=== PATIENT | female | born 1960 | race American Indian/Alaskan Native ===

== ENCOUNTER 2017-01-25 12:56 | Emergency (ER) | payer MEDICAID ==
--- NOTE | 2017-01-25 14:33 | Emergency Department Report ---
ED Extremity Problem HPI - General Chief complaint: Extremity Injury, Lower Stated complaint: BONE STICKING OUT OF FOOT Time Seen by Provider: 01/25/17 13:25 Source: patient, family Mode of arrival: Ambulatory Limitations: No Limitations - History of Present Illness Initial comments: Patient here reports that she woke yesterday morning with left ankle pain without any injury. She says she thinks it's broken but she does not how she could've broken it because she did not fall or hit her ankle on anything. She says she did not twist her ankle. She said that pain started when she woke up yesterday and is getting worse and located to her left outer ankle. Pain is 8 out of 10 and throbbing. She also said the area is red. Denies any insect pain is worse with weightbearing and touch better with resting. She took some Tylenol but it didn't help her pain. Patient has history of arthritis high blood pressure, anxiety, history of chronic pain, history of back surgery and she had had colectomy in the past with a history of colostomy which was reversed. Total hip replacement, knee surgeries and foot surgeries. She denies any chest pain or shortness of breath. Denies any history of gout reports that she eats lots of seafood. Next, patient diet has been in the last few weeks to include face, shellfish and she says she eats a lot of greens. She says she was tested for gout in the past by her primary care physician. MD Complaint: joint swelling, joint paint Onset/Timin -: days(s) Location: left, lower extremity (ankle), other History of Same: No -: Yes arthralgia, No fever, No associated dyspnea, No associated chest pain Radiation: none Severity scale (0 -10): 8 Quality: aching, crushing, constant, other (Throbbig) Consistency: constant Improves with: immobilization, rest Worsens with: weight bearing, walking, palpation (..) Associated Symptoms: arthralgias. denies: chest pain, shortness of breath, fever, myalgias, rash - Related Data Home Medications Medication Instructions Recorded Confirmed Last Taken Gabapentin [Neurontin] 300 mg PO BID 05/12/14 05/18/15 05/18/15 HYDROcodone/ACETAMINOPHEN [[place] 1 each PO BID 05/12/14 05/18/1516 7.5-325 mg TAB] Methylphenidate HCl [[place]] 18 mg PO QAM 05/12/14 05/18/15 05/18/15 Sertraline [Zoloft] 50 mg PO QDAY 05/12/14 05/18/15 05/18/15 amLODIPine [Norvasc] 10 mg PO DAILY 05/12/14 05/18/15 05/18/15 traZODone [Desyrel] 50 mg PO QHS PRN 05/12/14 05/18/15 05/18/15 Previous Rx's Medication Instructions Recorded Last Taken Type Ibuprofen [Motrin 800 MG tab] 800 mg PO Q8HR PRN #30 tablet 10/03/14 05/18/15 Rx traMADol [Ultram] 50 mg PO Q4HR PRN #20 tablet 05/18/15 Unknown Rx Acetaminophen/Codeine [Tylenol 1 tab PO Q6H PRN 3 Days #12 tab 01/25/17 Unknown Rx /Codeine # 3 tab] Ibuprofen [Motrin] 600 mg PO Q8H PRN 4 Days #12 tablet 01/25/17 Unknown Rx methylPREDNISolone [Medrol] 4 mg PO QAM 6 Days #1 tab.ds.pk 01/25/17 Unknown Rx Allergies Allergy/AdvReac Type Severity Reaction Status Date / Time No Known Allergies Allergy Unverified 03/30/13 12:39 ED Review of Systems ROS: Stated complaint: BONE STICKING OUT OF FOOT Other details as noted in HPI Comment: All other systems reviewed and negative Constitutional: no symptoms reported Respiratory: no symptoms reported Cardiovascular: denies: chest pain, palpitations, dyspnea on exertion, orthopnea , edema, syncope, paroxysmal nocturnal dyspnea Gastrointestinal: denies: abdominal pain, nausea, vomiting Musculoskeletal: joint swelling, arthralgia. denies: back pain, myalgia Skin: denies: rash Neurological: denies: headache, weakness, numbness, paresthesias, confusion, abnormal gait, vertigo ED Past Medical Hx - Past Medical History Previous Medical History?: Yes Hx Hypertension: Yes Hx Arthritis: Yes Hx Psychiatric Treatment: Yes (anxiety, claustrophobic) Additional medical history: hx blood clot to her left leg, chronic pain, - Surgical History Past Surgical History?: Yes Additional Surgical History: 2 back surgeries, , reversable colostomy, right total hip replacement, knee surgeries; surgery to left foot; - Family History Family history: hypertension - Social History Smoking Status: Never Smoker Substance Use Type: Alcohol - Medications Home Medications: Home Medications Medication Instructions Recorded Confirmed Last Taken Type Gabapentin [Neurontin] 300 mg PO BID 05/12/14 05/18/15 05/18/15 History HYDROcodone/ACETAMINOPHEN [[place] 1 each PO BID 05/12/14 05/18/15 05/18/15 History 7.5-325 mg TAB] Methylphenidate HCl [[place]certa] 18 mg PO QAM 05/12/14 05/18/15 05/18/15 History Sertraline [Zoloft] 50 mg PO QDAY 05/12/14 05/18/15 05/18/15 History amLODIPine [Norvasc] 10 mg PO DAILY 05/12/14 05/18/15 05/18/15 History traZODone [Desyrel] 50 mg PO QHS PRN 05/12/14 05/18/15 05/18/15 History Ibuprofen [Motrin 800 MG tab] 800 mg PO Q8HR PRN #30 tablet 10/03/14 05/18/15 Rx traMADol [Ultram] 50 mg PO Q4HR PRN #20 tablet 05/18/15 Unknown Rx Acetaminophen/Codeine [Tylenol 1 tab PO Q6H PRN 3 Days #12 tab 01/25/17 Unknown Rx /Codeine # 3 tab] Ibuprofen [Motrin] 600 mg PO Q8H PRN 4 Days #12 tablet 01/25/17 Unknown Rx methylPREDNISolone [Medrol] 4 mg PO QAM 6 Days #1 tab.ds.pk 01/25/17 Unknown Rx ED Physical Exam - General Limitations: No Limitations General appearance: alert, in no apparent distress - Head Head exam: Present: atraumatic, normocephalic, normal inspection - Eye Eye exam: Present: normal appearance, PERRL, EOMI. Absent: periorbital swelling , periorbital tenderness Pupils: Present: normal accommodation - ENT ENT exam: Present: normal exam, normal orophraynx, mucous membranes moist - Neck Neck exam: Present: normal inspection, full ROM. Absent: tenderness, meningismus, lymphadenopathy, thyromegaly - Respiratory Respiratory exam: Present: normal lung sounds bilaterally. Absent: respiratory distress, wheezes, rales, rhonchi, stridor, chest wall tenderness, accessory muscle use - Cardiovascular Cardiovascular Exam: Present: regular rate, normal rhythm, normal heart sounds. Absent: systolic murmur, diastolic murmur - GI/Abdominal GI/Abdominal exam: Present: soft, normal bowel sounds. Absent: distended, tenderness, guarding, rebound, rigid, organomegaly, mass, bruit, pulsatile mass - Extremities Exam Extremities exam: Present: normal inspection, full ROM, tenderness, normal capillary refill, other. Absent: pedal edema, joint swelling, calf tenderness - Back Exam Back exam: Present: normal inspection, full ROM. Absent: tenderness - Neurological Exam Neurological exam: Present: alert, oriented X3, normal gait, reflexes normal. Absent: motor sensory deficit - Psychiatric Psychiatric exam: Present: normal affect, normal mood - Skin Skin exam: Present: warm, dry, intact, normal color. Absent: rash ED Course Vital Signs 01/25/17 13:03 Temperature 97.8 F Pulse Rate 79 Respiratory 18 Rate Blood Pressure 157/114 O2 Sat by Pulse 100 Oximetry Vital Signs 01/25/17 01/25/17 13:03 16:30 Temperature 97.8 F Pulse Rate 79 Respiratory 18 Rate Blood Pressure 157/114 Blood Pressure 150/90 [Left] O2 Sat by Pulse 100 Oximetry - Orthopedic Splinting/Casting Injury #1 Side: left Upper Extremity Immobilizer: Reji wrap Lower Extremity Injury Location: ankle Other Orthopedic Equipment: crutches ED Medical Decision Making - Radiology Data Radiology results: report reviewed Left ankle x-ray without any fracture or dislocation. Mild soft tissue swelling - Medical Decision Making ED Course: Critical care attestation.: If time is entered above; I have spent that time in minutes in the direct care of this critically ill patient, excluding procedure time. ED Disposition Clinical Impression: Arthralgia of left ankle, Elevated blood pressure reading with diagnosis of hypertension Gout attack Qualifiers: Gout site: ankle Gout etiology: unspecified cause Laterality: left Qualified Code(s): M10.9 - Gout, unspecified Disposition: TO HOME OR SELFCARE Is pt being admited?: No Does the pt Need Aspirin: No Condition: Stable Instructions: Low Purine Diet (ED), Acute Gouty Arthritis (ED), Arthralgia (ED) , Hypertension (ED) Additional Instructions: follow-up with a primary care physician in 2-3 days Take Motrin and this will help with pain Denies drive or operate heavy machinery while taking Tylenol No. 3 as this medication causes drowsiness Increased Your fluid intake See discharge instruction and foods that are high in purine . Prescriptions: Acetaminophen/Codeine [Tylenol /Codeine # 3 tab] 1 tab PO Q6H PRN 3 Days #12 tab PRN Reason: Pain, Moderate (4-6) Ibuprofen [Motrin] 600 mg PO Q8H PRN 4 Days #12 tablet PRN Reason: Pain methylPREDNISolone [Medrol] 4 mg PO QAM 6 Days #1 tab.ds.pk Referrals: PRIMARY CARE, [Primary Care Provider] - 2-3 Days Forms: Work/School Release Form(ED)
[2017-01-25] MEDS ORDERED: TORADOL IM ONE (14:39)
[2017-01-25] MEDS ORDERED: DECADRON IM STA (14:39)
--- NOTE | 2017-01-25 14:58 | XRay Report ---
FINAL REPORT EXAM: XR ANKLE 3+V LT HISTORY: swollen/painful-RO FX TECHNIQUE: Two views of the left ankle PRIORS: None. FINDINGS: There is no evidence of acute fracture. There is no evidence of joint dislocation. There is mild medial soft tissue swelling. There are small plantar and posterior calcaneal heel spurs. IMPRESSION: Mild medial soft tissue swelling. No acute fracture.
[2017-01-27 23:43] VITALS: BP 150/90
== END 2017-01-25 16:59 | disposition home or self-care (01) ==
LOC: ED 12:56
DX: M25.572 Pain in left ankle and joints of left foot (principal); M10.9 Gout, unspecified; I10 Essential (primary) hypertension; M19.90 Unspecified osteoarthritis, unspecified site; F41.9 Anxiety disorder, unspecified
CPT/HCPCS: 73610; 96372; 99283; J1100; J1885

== ENCOUNTER 2017-03-11 10:05 | Outpatient (CLI) | payer MEDICAID ==
--- NOTE | 2017-03-11 18:02 | XRay Report ---
FINAL REPORT EXAM: XR ANKLE 3+V LT HISTORY: PHEUMATOID ARTHRITIS TECHNIQUE: Three views left ankle PRIORS: None. FINDINGS: No fracture is identified. No dislocation seen. Ankle mortise is intact no evidence of joint space widening. No erosive or degenerative changes are identified. No evidence of joint effusion. IMPRESSION: Negative ankle series
== END 2017-03-11 10:06 | disposition home or self-care (01) ==
LOC: XRAY 10:05
PROVIDERS: ATTEND Family Medicine
DX: M06.872 Other specified rheumatoid arthritis, left ankle and foot (principal); M10.9 Gout, unspecified

== ENCOUNTER 2020-04-26 09:48 | Outpatient (CLI) | payer MEDICAID ==
--- NOTE | 2020-04-30 11:25 | XRay Report ---
RIGHT KNEE 3 VIEWS INDICATION / CLINICAL INFORMATION: Right knee pain. COMPARISON: None available. FINDINGS: BONES/JOINT(S): No acute fracture or subluxation. There is advanced tricompartmental DJD in both knee s with significant joint space loss and marginal osteophyte formation as well as valgus angulation. T here is a moderate joint effusion in the right knee. SOFT TISSUES: No significant abnormality. ADDITIONAL FINDINGS: None. Signer Name: Alok Marino MD Signed: 04/30/2020 11:21 AM Workstation Name: [email or web address]
== END 2020-04-26 09:49 | disposition home or self-care (01) ==
LOC: XRAY 09:48
PROVIDERS: ATTEND Orthopaedic Surgery
DX: M17.11 Unilateral primary osteoarthritis, right knee (principal)

== ENCOUNTER 2020-05-24 09:15 | Inpatient (IN) | payer MEDICAID ==
[2020-05-18 11:52] LABS: Hematocrit 44.1 % (30.3-42.9); Hemoglobin 14.8 gm/dl (10.1-14.3); Mean Corpuscular HGB Conc 33 % (30-34); Mean Corpuscular Volume 90 fl (79-97); Platelet Count 211 K/mm3 (140-440); Red Blood Count 4.91 M/mm3 (3.65-5.03); Red Cell Distribution Width 15.4 % (13.2-15.2)
[2020-05-18 12:05] LABS: Blood Urea Nitrogen 10 mg/dL (7-17); Calcium 9.4 mg/dL (8.4-10.2); Hemolysis Index 133
[2020-05-18 12:09] LABS: BUN/Creatinine Ratio 17
[2020-05-18 13:37] LABS: Anisocytosis 1+; Total Cells Counted 100
[2020-05-18 13:38] LABS: Platelet Estimate Consistent w Auto
--- NOTE | 2020-05-21 08:52 | Anesthesia Consultation ---
Anesthesia Consult and Med Hx Date of service: 05/24/20 - Airway Anesthetic Teeth Evaluation: Poor (Missing teeth) - Pre-Operative Health Status ASA Pre-Surgery Classification: ASA3 Proposed Anesthetic Plan: General Nerve Block: AC - Pulmonary Hx Smoking: Yes (QUIT IN 1981, SMOKED FOR ONE YEAR.) Hx Respiratory Symptoms: Yes (Hx PE/DVT on Eliquis) Hx Sleep Apnea: No - Cardiovascular System Hx Hypertension: Yes (Pt reports negative NST) - Central Nervous System Hx Neuromuscular Disorder: Yes (Arthritis. Neuropathy LLE) Hx Back Pain: Yes (Two back surgeries and fusion) Hx Psychiatric Problems: Yes (Anxiety/Depression) - Gastrointestinal Hx Gastroesophageal Reflux Disease: No (Diverticulosis) - Other Systems Hx Alcohol Use: Yes (OCCASIONALLY) Hx Substance Use: Yes (SMOKES MARIJUANA, LAST TIME WAS WEEK OF 05/07/20) - Additional Comments Anesthesia Medical History Comments: Pt has clautrophobia and mask phobia
[~2020-05-24 09:15] MED LIST: ACETAMINOPHEN 500 MG TAB PO NR; CELECOXIB 200 MG CAP PO NR; MAGNESIUM OXIDE 400 MG TAB PO NR; MIDAZOLAM 2 MG/2 ML INJ IV NR; ceFAZolin/Water 2 GM/20 ML 2 GM/20 ML SYRINGE IV NR; fentaNYL 100 MCG/2 ML INJ IV NR
[2020-06-07] MEDS ORDERED: BACTERIOSTATIC SODIUM CHLORIDE 0.9% 30 ML VIAL INFILTRATI ONE (06:08)
[2020-06-07] MEDS: LACTATED RINGERS 1,000 ML IV SCH ×2 (07:00→14:44)
[2020-06-07] MEDS: MIDAZOLAM 2 MG/2 ML INJ IV NR ×2 (07:03→07:46)
[2020-06-07] MEDS ORDERED: KETOROLAC 30 MG/1 ML INJ ONE ×2 (07:12→10:41)
[2020-06-07] MEDS ORDERED: BUPIVACAINE/PF (0.25%) 2.5 MG/ML 10 ML VIAL INFILTRATI ONE (07:12)
--- NOTE | 2020-06-07 07:33 | Anesthesia Day of Surgery ---
Anesthesia Day of Surgery - Day of Surgery Patient Examined: Yes Patient H&P Reviewed: Yes Patient is NPO: Yes
[2020-06-07] MEDS ORDERED: dexAMETHasone 4 MG/ML VIAL ONE (07:36)
[2020-06-07] MEDS ORDERED: BUPIVACAINE/PF (0.25%) 2.5 MG/ML 30 ML VIAL INFILTRATI ONE (07:36)
[2020-06-07] MEDS ORDERED: propofoL 200 MG/20 ML VIAL IV ONE ×2 (07:54→08:14)
[2020-06-07] MEDS ORDERED: LIDOCAINE MPF (2%) 20 MG/1 ML VIAL 5 ML ONE (07:54)
[2020-06-07] MEDS ORDERED: fentaNYL 100 MCG/2 ML INJ IV SCH (08:00)
[2020-06-07] MEDS ORDERED: GABAPENTIN 300 MG CAP PO NR (08:00)
[2020-06-07] MEDS ORDERED: MAGNESIUM OXIDE 400 MG TAB PO SCH (08:00)
[2020-06-07] MEDS ORDERED: HYDROmorphone 1 MG/1 ML INJ IV PRN ×2 (08:00)
[2020-06-07] MEDS ORDERED: ceFAZolin/STERILE WATER 2 GM/20 ML SYRINGE IV NR (08:00)
[2020-06-07] MEDS ORDERED: ONDANSETRON 4 MG/2 ML INJ IV PRN (08:00)
[2020-06-07] MEDS ORDERED: CELECOXIB 200 MG CAP PO NR (08:00)
[2020-06-07] MEDS ORDERED: ACETAMINOPHEN 325 MG TAB PO SCH (08:00)
[2020-06-07] MEDS ORDERED: fentaNYL 100 MCG/2 ML INJ ONE (08:45)
[2020-06-07] MEDS ORDERED: SUCCINYLCHOLINE CHLORIDE 200 MG/10 ML INJ MDV ONE (08:46)
[2020-06-07] MEDS ORDERED: ePHEDrine SULFATE 50 MG/1 ML INJ ONE (08:52)
[2020-06-07] MEDS ORDERED: TRANEXAMIC ACID 1,000 MG/10 ML ONE (08:59)
[2020-06-07] MEDS ORDERED: TRANEXAMIC ACID 1,000 MG/10 ML IV ONE (09:11)
[2020-06-07] MEDS ORDERED: SODIUM CHLORIDE 0.9% IRR 1,500 ML BOTTLE IR ONE (09:12)
[2020-06-07] MEDS ORDERED: WATER FOR IRRIG STERILE 2000 ML IR ONE (09:12)
[2020-06-07] MEDS ORDERED: SODIUM CHLORIDE 0.9% IRRIG SOLN 2000 ML IR ONE (09:13)
[2020-06-07] MEDS ORDERED: ONDANSETRON 4 MG/2 ML INJ ONE (09:34)
[2020-06-07] MEDS ORDERED: LACTATED RINGERS 1,000 ML ONE (09:35)
[2020-06-07] MEDS ORDERED: BUPIVACAINE/PF (0.5%) 5 MG/1 ML 30 ML VIAL INFILTRATI ONE ×2 (10:42→10:48)
[2020-06-07] MEDS ORDERED: MORPHINE 10 MG/1 ML INJ ONE (10:42)
[2020-06-07] MEDS ORDERED: SODIUM CHLORIDE 0.9% 50 ML ONE (10:44)
[2020-06-07] MEDS ORDERED: SODIUM CHLORIDE 0.9% 100 ML ONE (10:44)
[2020-06-07] MEDS ORDERED: SODIUM CHLORIDE 0.9% 100 ML IVPB IV ONE (10:46)
[2020-06-07] MEDS ORDERED: SODIUM CHLORIDE 0.9% 50 ML IVPB IV ONE (10:47)
[2020-06-07] MEDS ORDERED: KETOROLAC 30 MG/1 ML INJ IV ONE (10:49)
[2020-06-07] MEDS ORDERED: MORPHINE 10 MG/1 ML INJ IM ONE (10:49)
[2020-06-07] MEDS ORDERED: HYDROmorphone 1 MG/1 ML INJ ONE (11:12)
--- NOTE | 2020-06-07 11:43 | Procedure Note ---
Date of procedure: 06/07/20 Pre-op diagnosis: Severe arthritis right knee Post-op diagnosis: same Procedure: [Right] total knee replacement Procedure The patient was brought to the OR after being given a obturator nerve block and preoperative holding she was placed on the OR table supine position following induction elevation of anesthesia the patient is [right] lower extremity was prepped and draped in the usual sterile manner. A timeout procedure was done to identify the patient in the correct operative site. The leg was exsanguinated followed by inflation of the pneumatic tourniquet to 300 mmHg. A midline incision was made over the patella was taken down distally towards the tibial tubercle next the medial retinaculum was incised and the patella was inverted examination of the patient's knee joint revealed typical osteoarthritic changes with large bone spurs noted primarily in the medial compartment both the femoral and tibial's articular surfaces exhibited bare bone and large peripheral osteophytes next a large drill bit was used to enter the medullary canal this was followed by placement of the distal femoral cutting Jig the distal femur was resected approximately 8-9 mm of bone was removed at this time. Attention was turned to the patient's proximal tibia using a external alignme guide the bone was cut using the medial surface as the low point of care was taken to protect the medial collateral ligaments the tibial articular surface was 7-sized A3 a #4 tibial based ray was selected this was followed by placement of the fixation hole or keel into the proximal tibial artery medullary canal. Attention was turned to the distal femur and using a 4 and 1 cutting block a #4 component was selected AP anterior and posterior as well as Mei cuts were made a #4 tibial ostomy femoral component was placed and the knee was then taken to a range of motion she appeared to have stability in both the flexion and extension FOLLOWING this the trial components were removed the knee was then copiously irrigated any remaining soft tissue and bony debris were removed at this time next the cement was next and following this the tibial components were inserted beginning with the based ray followed by the polyethylene insert The femoral component was added the excess were removed the knee was held in extension until the cement hardened following hardening of cement the knee was then brought back into of flexion any remaining soft tissue and bony debris were removed at this time. The wound again was irrigated and was closed in a standard routine fashion. Dressings were applied the patient tolerated the procedure there were no complications she was then taken to post anesthesia recovery Anesthesia: MAC, regional Surgeon: HUSEYIN GANN (Kathy Rowley, 1st assist) Estimated blood loss: minimal Pathology: list (Portions of the articular cartilage from the femur and tibia was sent to pathology) Specimen disposition: to lab Condition: stable Disposition: PACU
--- NOTE | 2020-06-07 12:13 | Post Anesthesia Evaluation ---
- Post Anesthesia Evaluation Patient Participated: Yes Airway Patent: Yes Stable Respiratory Function: Yes Nausea/Vomiting: No Temp > 96.8F: Yes Pain Manageable: Yes Adequeate Hydration: Yes Anesthesia Complications: No Block Receding Appropriately: Yes Patient on Ventilator: No
[2020-06-07] MEDS: MORPHINE 2 MG/1 ML INJ IV PRN (21:33)
[2020-06-08] MEDS: MORPHINE 2 MG/1 ML INJ IV PRN ×2 (05:58→10:08)
[2020-06-08] MEDS: LACTATED RINGERS 1,000 ML IV SCH (06:00)
[2020-06-08] MEDS: ENOXAPARIN 40 MG/0.4 ML INJ SUB-Q SCH (10:09)
--- NOTE | 2020-06-08 12:55 | Progress Note ---
Assessment and Plan s/p right TKR post op day 1 hopefully dc in am... Subjective Date of service: 06/08/20 Interval history: c/o incisional pain otherwise ok, PT started, did well.... Objective Vital signs: Vital Signs - 12hr 06/08/20 06/08/20 05:16 10:02 Temperature 98.2 F 98.5 F Pulse Rate 92 H 97 H Respiratory 20 18 Rate Blood Pressure 142/85 148/92 O2 Sat by Pulse 95 94 Oximetry - Labs CBC & BMP: 05/18/20 11:15 05/18/20 11:15
--- NOTE | 2020-06-08 12:55 | XRay Report ---
RIGHT KNEE 2 VIEW(S) INDICATION / CLINICAL INFORMATION: post op evaluation COMPARISON: None available. FINDINGS: The right total knee arthroplasty projects in satisfactory alignment. No periprosthetic fracture or d islocation. Expected soft tissue gas is noted. Signer Name: Wilman Garcia MD Signed: 06/08/2020 12:49 PM Workstation Name: [id number]
[2020-06-08] MEDS: MORPHINE 4 MG/1 ML INJ IV PRN (14:16)
[2020-06-08] MEDS: KETOROLAC 30 MG/1 ML INJ IV PRN (17:01)
[2020-06-08] MEDS: IBUPROFEN 800 MG TAB PO PRN (21:21)
[2020-06-09] MEDS: KETOROLAC 30 MG/1 ML INJ IV PRN (06:32)
[2020-06-09] MEDS: ENOXAPARIN 40 MG/0.4 ML INJ SUB-Q SCH (08:57)
[2020-06-09] MEDS: MORPHINE 2 MG/1 ML INJ IV PRN (11:08)
[2020-06-09] MEDS: IBUPROFEN 800 MG TAB PO PRN ×2 (15:42→21:35)
[2020-06-10] MEDS: IBUPROFEN 800 MG TAB PO PRN ×2 (05:50→19:09)
[2020-06-10] MEDS: ENOXAPARIN 40 MG/0.4 ML INJ SUB-Q SCH (09:56)
[2020-06-10] MEDS: MORPHINE 2 MG/1 ML INJ IV PRN (09:57)
[2020-06-10] MEDS: MORPHINE 4 MG/1 ML INJ IV PRN (15:17)
[2020-06-10] MEDS: amLODIPine 10 MG TAB PO SCH (19:10)
[2020-06-10] MEDS: SERTRALINE 50 MG TAB PO SCH (19:10)
[2020-06-10] MEDS ORDERED: GABAPENTIN 300 MG CAP PO SCH (22:00)
[2020-06-10] MEDS: GABAPENTIN 400 MG CAP PO SCH (22:14)
[2020-06-10] MEDS: ALPRAZolam 1 MG TAB PO SCH (22:14)
[2020-06-10] MEDS: KETOROLAC 30 MG/1 ML INJ IV PRN (22:15)
[2020-06-11 07:37] VITALS: BP 130/82
[2020-06-11] MEDS: SERTRALINE 50 MG TAB PO SCH (08:52)
[2020-06-11] MEDS: amLODIPine 10 MG TAB PO SCH (08:52)
[2020-06-11] MEDS: GABAPENTIN 400 MG CAP PO SCH (08:52)
[2020-06-11] MEDS: ENOXAPARIN 40 MG/0.4 ML INJ SUB-Q SCH (08:52)
[2020-06-11] MEDS: ALPRAZolam 1 MG TAB PO SCH (09:00)
--- NOTE | 2020-06-11 12:24 | Discharge Summary ---
Providers - Providers Date of Admission: 06/07/20 06:25 Date of discharge: 06/11/20 Attending physician: HUSEYIN GANN MD 06/07/20 11:39 Physical Therapy Evaluation and Treat [CONS] Routine Comment: Reason For Exam: Postop evaluation Weight bearing status?: Full wt bearing Assistive devices?: Yes If so list: Walker Primary care physician: FRANCI LANGSTON Hospitalization Condition: Stable Procedures: Right total knee replacement Hospital course: 60-year-old female who comes in complaining of bilateral knee pain and swelling for years patient states the right knee was worse she was admitted to the hospital and taken to the operating room where a right total knee replacement was done postoperatively she was seen and evaluated by physical therapy where she was instructed on gait and range of motion exercises. Case management services were also consulted for DME's and postop rehab services. Patient did well overall and was discharged home with return follow-up visit in the office in 1 to 2 weeks Disposition: DC-01 TO HOME OR SELFCARE Final Discharge Diagnosis (Prints w/discharge instructions): severe arthritis right knee Core Measure Documentation - Palliative Care Palliative Care/ Comfort Measures: Not Applicable - Core Measures Any of the following diagnoses?: none - VTE Discharge Requirements Deep Vein Thrombosis/Pulmonary Embolism Present on Admission: No Has pt received <5 days of overlap therapy or INR<2.0: Yes Anticoagulant overlap therapy prescribed at discharge: Yes Contraindication No Overlap Therapy order at DC: Medical Contraindication - Acute MA Discharge Requirements Aspirin at discharge: No Reason for no aspirin on DC: Medical contraindication - Heart Failure Discharge Requirements PRIYANK/ARB for LVSD if EF <40%: No Reason for no PRIYANK/ARB: Medical contraindication - Stroke Discharge Requirements Statin for LDL = or >70 mg/dl on DC: No Exam - Constitutional Vitals: Temp Pulse Resp BP Pulse Ox 97.5 F L 93 H 18 130/82 96 06/11/20 07:28 06/11/20 08:52 06/11/20 07:28 06/11/20 08:52 06/11/20 10:00 General appearance: Present: no acute distress, well-nourished - EENT Eyes: Present: PERRL ENT: hearing intact, clear oral mucosa - Neck Neck: Present: supple, normal ROM - Respiratory Respiratory effort: normal Respiratory: bilateral: CTA - Cardiovascular Heart Sounds: Present: S1 & S2. Absent: rub, click - Extremities Extremities: pulses symmetrical, No edema Peripheral Pulses: within normal limits - Abdominal General gastrointestinal: Present: soft, non-tender, non-distended, normal bowel sounds Female genitourinary: Present: normal - Integumentary Integumentary: Present: clear, warm, dry - Musculoskeletal Musculoskeletal: gait normal, strength equal bilaterally - Psychiatric Psychiatric: appropriate mood/affect, intact judgment & insight - Neurologic Neurologic: CNII-XII intact, moves all extremities Plan Activity: advance as tolerated Weight Bearing Status: Weight Bear as Tolerated Diet: regular Wound: keep clean and dry Special Instructions: physical therapy Durable Medical Equipment Needed Upon Discharge: Walker-Standard, Bedside Com mode Follow up with: FRANCI LANGSTON MD [Primary Care Provider] - 7 Days Prescriptions: Apixaban [Eliquis] 5 mg PO DAILY #30 tablet Oxycodone HCl/Acetaminophen [Percocet 10/325 mg] 1 each PO Q6HR PRN #30 tablet PRN Reason: Pain
== END 2020-06-11 14:50 | disposition home health service (06) | DRG 470 ==
LOC: 3A 06-07 06:25 → 3B 06-07 11:48
PROVIDERS: ADMIT Orthopaedic Surgery; ATTEND Orthopaedic Surgery
PROC: 0SRC0J9 Replacement of Right Knee Joint with Synthetic Substitute, Cemented, Open Approach (ICD-10-PCS; principal; 2020-06-07)
DX: M17.11 Unilateral primary osteoarthritis, right knee (principal); I10 Essential (primary) hypertension; F41.9 Anxiety disorder, unspecified; F32.9 Major depressive disorder, single episode, unspecified; G62.9 Polyneuropathy, unspecified; F40.240 Claustrophobia; Z87.891 Personal history of nicotine dependence; Z86.711 Personal history of pulmonary embolism; Z79.01 Long term (current) use of anticoagulants; Z86.718 Personal history of other venous thrombosis and embolism; Z98.1 Arthrodesis status; Z79.899 Other long term (current) drug therapy; Z72.89 Other problems related to lifestyle; Z83.3 Family history of diabetes mellitus; Z82.49 Family history of ischemic heart disease and other diseases of the circulatory system; Z79.891 Long term (current) use of opiate analgesic
CPT/HCPCS: 36415; 64450; 80048; 85007; 85025; 88309; 88311; G0378; A4217; C1776; J0330; J1100; J1170; J1650; J1885; J2250; J2270; J2405; J2704; J3010; J7120; U0003

== ENCOUNTER 2020-07-20 13:04 | Emergency (ER) | payer MEDICAID ==
--- NOTE | 2020-07-20 14:54 | Event Note ---
ED Screening Note Date of service: 07/20/20 Time: 14:50 ED Screening Note: 60-year-old female patient presents to the emergency department with complaints of right knee pain/swelling/redness starting 3 days ago. Patient underwent total knee replacement by Dr. Draper at the end of May. Postoperative course has been uneventful to date. She contacted her surgeon today for an appointment and he advised her to come to the emergency department for further evaluation. General: Awake, appropriately interactive, no acute distress. Neck: Supple. Full range of motion intact. Cardiovascular: Normal peripheral perfusion. Pulmonary: No respiratory distress. Patient is speaking normally without use of accessory muscles. Skin: No apparent rashes or lesions. Neurological: No facial asymmetry. Speech is clear. Follows commands. Patient is alert and oriented. Musculoskeletal: Soft tissue swelling and tenderness to the right knee with minimal overlying erythema. Painful limited right knee extension. Psych: Cooperative. Appropriate mood and affect. Labs and x-ray ordered; case discussed with Dr. Diaz, attending emergency physician, who agrees with initial diagnostic work-up. I have greeted and performed a focused rapid initial assessment of this patient. A comprehensive ED assessment and evaluation of the patient, analysis of all test results, and completion of the medical decision-making process will be conducted by additional ED providers. This initial assessment/diagnostic orders/clinical plan/treatment(s) is/are subject to change based on patients health status, clinical progression and re-assessment. Further treatment and workup at subsequent clinical provider's discretion. Patient/guardian urged not to elope from the ED as their condition may be serious if not clinically assessed and managed.
[2020-07-20 15:32] LABS: Blood Urea Nitrogen 15 mg/dL (7-17); Calcium 9.5 mg/dL (8.4-10.2); Hemolysis Index 13
--- NOTE | 2020-07-20 15:32 | XRay Report ---
RIGHT KNEE 4 VIEWS INDICATION: pain/swelling/redness -- recent TKR. COMPARISON: 06/08/2020 FINDINGS: Right knee arthroplasty hardware is in satisfactory position without periprosthetic lucency. No fract ure is seen. There is somewhat diffuse soft tissue swelling greatest anteriorly. IMPRESSION: 1. No acute skeletal abnormality. 2. Predominantly anterior/prepatellar soft tissue swelling is nonspecific but could be due to inflamm ation. Signer Name: Pravin Titus MD Signed: 07/20/2020 3:27 PM Workstation Name: [id number]
[2020-07-20 15:39] LABS: BUN/Creatinine Ratio 30
[2020-07-20 15:58] LABS: Erythrocyte Sedimentation Rate 60 mm/Hr (0-20)
[2020-07-20 16:02] LABS: Basophils % (Auto) 0.5 % (0.0-1.8); Eosinophils # (Auto) 0.2 K/mm3 (0.0-0.4); Eosinophils % (Auto) 2.8 % (0.0-4.3); Hematocrit 40.2 % (30.3-42.9); Lymphocytes % (Auto) 35.3 % (13.4-35.0); Mean Corpuscular HGB Conc 32 % (30-34); Mean Corpuscular Volume 87 fl (79-97); Monocytes # (Auto) 1.2 K/mm3 (0.0-0.8); Monocytes % (Auto) 13.6 % (0.0-7.3); Platelet Count 292 K/mm3 (140-440); Red Blood Count 4.63 M/mm3 (3.65-5.03); Red Cell Distribution Width 15.9 % (13.2-15.2)
--- NOTE | 2020-07-20 16:03 | Vascular Lab Report ---
Right lower extremity Doppler venous ultrasound INDICATION: Swelling FINDINGS: The right common femoral vein, superficial femoral vein and popliteal vein have normal comp ressibility and phasic flow. IMPRESSION: No evidence for DVT. Signer Name: Xander Espinoza MD Signed: 07/20/2020 3:59 PM Workstation Name: [id number]
[2020-07-20] MEDS ORDERED: oxyCODONE /ACETAMINOPHEN 5-325MG TAB PO ONE (16:39)
--- NOTE | 2020-07-20 16:49 | Emergency Department Report ---
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 Patient is 5- week status post total knee replacement by Dr. Draper. Patient has been undergo ing intense physical therapy. Over the last 3 days she has had right knee swelling stinging pain. No direct injury. She has been compliant with Eliquis. Dr. Draper's office staff member referred her to the ER. She denies fever or generalized malaise. MD Complaint: other (Right knee pain swelling recent total knee replacement) -: Gradual, days(s) (3 days ago) Injury: Leg: Right, Knee: Right Place: home Severity: moderate Severity scale (0 -10): 7 Improves With: rest Worsens With: movement Context: other (Recent surgery total knee replacement, consistent physical th erapy) Associated Symptoms: swelling, able to partially bear weight - Related Data Home Medications Medication Instructions Recorded Confirmed Last Taken Sertraline [Zoloft] 50 mg PO QDAY 05/12/14 06/07/20 06/07/20 05:00 amLODIPine [Norvasc] 10 mg PO DAILY 05/12/14 06/07/20 06/07/20 05:00 Apixaban [Eliquis] 2.5 mg PO BID 05/17/20 06/07/20 06/03/20 09:00 Gabapentin [Neurontin] 400 mg PO BID 05/17/20 06/07/20 06/04/20 17:00 Previous Rx's Medication Instructions Recorded Last Taken Type Apixaban [Eliquis] 5 mg PO DAILY #30 tablet 06/08/20 Unknown Rx Oxycodone HCl/Acetaminophen 1 each PO Q6HR PRN #30 tablet 06/08/20 Unknown Rx [Percocet 10/325 mg] cephALEXin [Keflex] 500 mg PO TID 7 Days #21 capsule 07/20/20 Unknown Rx oxyCODONE /ACETAMINOPHEN [Percocet 1 tab PO Q6HR PRN #15 tablet 07/20/20 Unknown Rx 5/325] Allergies Allergy/AdvReac Type Severity Reaction Status Date / Time No Known Allergies Allergy Verified 11/06/18 11:48 ED Review of Systems ROS: Stated complaint: KNEE DISCOMFORT Other details as noted in HPI Comment: All other systems reviewed and negative Constitutional: denies: fever, malaise Respiratory: denies: cough, shortness of breath Gastrointestinal: denies: abdominal pain, nausea, vomiting Neurological: denies: headache, weakness ED Past Medical Hx - Past Medical History Previous Medical History?: Yes Hx Hypertension: Yes Hx Congestive Heart Failure: No Hx Diabetes: No Hx Deep Vein Thrombosis: Yes (LEFT CALF AFTER BACK SURGERY. LUNG LAST YEAR - TAKES ELIQUIS) Hx Arthritis: Yes (BILATERAL KNEES, RIGHT HIP) Hx Headaches / Migraines: Yes (MIGRAINES) Hx Psychiatric Treatment: Yes (anxiety, claustrophobic) Hx Asthma: No Hx COPD: No Additional medical history: hx blood clot to her left leg, chronic pain, LUPUS - Surgical History Past Surgical History?: Yes Hx Cholecystectomy: Yes Additional Surgical History: 2 back surgeries, , reversable colostomy, right total hip replacement, knee surgeries; surgery to left foot; - Social History Smoking Status: Smoker, Current Status Unknown - Medications Home Medications: Home Medications Medication Instructions Recorded Confirmed Last Taken Type Sertraline [Zoloft] 50 mg PO QDAY 05/12/14 06/07/20 06/07/20 05:00 History amLODIPine [Norvasc] 10 mg PO DAILY 05/12/14 06/07/20 06/07/20 05:00 History Apixaban [Eliquis] 2.5 mg PO BID 05/17/20 06/07/20 06/03/20 09:00 History Gabapentin [Neurontin] 400 mg PO BID 05/17/20 06/07/20 06/04/20 17:00 History Apixaban [Eliquis] 5 mg PO DAILY #30 tablet 06/08/20 Unknown Rx Oxycodone HCl/Acetaminophen 1 each PO Q6HR PRN #30 tablet 06/08/20 Unknown Rx [Percocet 10/325 mg] cephALEXin [Keflex] 500 mg PO TID 7 Days #21 capsule 07/20/20 Unknown Rx oxyCODONE /ACETAMINOPHEN [Percocet 1 tab PO Q6HR PRN #15 tablet 07/20/20 Unknown Rx 5/325] ED Physical Exam - General Limitations: No Limitations General appearance: alert, in no apparent distress - Head Head exam: Present: atraumatic, normocephalic - Eye Eye exam: Present: normal appearance - ENT ENT exam: Present: mucous membranes moist - Neck Neck exam: Present: normal inspection, full ROM - Respiratory Respiratory exam: Present: normal lung sounds bilaterally. Absent: respiratory distress, wheezes, rales, rhonchi - Cardiovascular Cardiovascular Exam: Present: regular rate, normal rhythm, normal heart sounds. Absent: systolic murmur, diastolic murmur, rubs, gallop - GI/Abdominal GI/Abdominal exam: Present: soft, normal bowel sounds. Absent: distended, tenderness, guarding, rebound - Extremities Exam Extremities exam: Present: other (Right knee global swelling with redness pain surrounding surgical wound, surgical wound intact healed with slight redness extending to the pretibial [place] right calf much larger than left calf) - Neurological Exam Neurological exam: Present: alert, oriented X3 - Psychiatric Psychiatric exam: Present: normal affect, normal mood - Skin Skin exam: Present: warm, dry, intact, erythema. Absent: rash ED Course Vital Signs 07/20/20 13:31 Temperature 98.6 F Pulse Rate 77 Respiratory 16 Rate Blood Pressure 135/95 [Right] O2 Sat by Pulse 97 Oximetry ED Lower Extremity MDM - Lab Data Result diagrams: 07/20/20 14:56 07/20/20 14:56 Laboratory Results - last 24 hr 07/20/20 07/20/20 14:56 14:56 WBC 8.5 RBC 4.63 Hgb 13.0 Hct 40.2 MCV 87 MCH 28 MCHC 32 RDW 15.9 H Plt Count 292 Lymph % (Auto) 35.3 H [place] % (Auto) 13.6 H Eos % (Auto) 2.8 Baso % (Auto) 0.5 Lymph # (Auto) 3.0 [place] # (Auto) 1.2 H Eos # (Auto) 0.2 Baso # (Auto) 0.0 Seg Neutrophils % 47.8 Seg Neutrophils # 4.1 ESR 60 Sodium 138 Potassium 4.2 Chloride 103.5 Carbon Dioxide 24 Anion Gap 15 BUN 15 Creatinine 0.5 L Estimated GFR > 60 BUN/Creatinine Ratio 30 Glucose 95 Calcium 9.5 C-Reactive Protein 1.10 - Radiology Data Radiology results: report reviewed Patient Name: PATRIC DE LOS SANTOS Gender: Female Date of : 1960 Referring Provider: CANDE VILCHIS Organization: [facility] Accession Number: [id number] Requested Date: July 20, 2020 14:53 Report Status: Final Requested Procedure: 1 Procedure Description: XR knee 3V RT Modality: XR Findings Reporting MD: Pravin Titus Dictation Time: July 20, 2020 14:27 Photographic Artist: Not available Grounds Caretaker Date: RIGHT KNEE 4 VIEWS INDICATION: pain/swelling/redness -- recent TKR. COMPARISON: 06/08/2020 FINDINGS: Right knee arthroplasty hardware is in satisfactory position without periprosthetic lucency. No fracture is seen. There is somewhat diffuse soft tissue swelling greatest anteriorly. IMPRESSION: 1. No acute skeletal abnormality. 2. Predominantly anterior/prepatellar soft tissue swelling is nonspecific but could be due to inflammation. Signer Name: Pravin Titus MD Signed: 07/20/2020 2:27 PM Workstation Name: [id number] Patient Name: PATRIC DE LOS SANTOS Gender: Female Date of : 1960 Referring Provider: EDD VASQUEZ Organization: [facility] Accession Number: [id number] Requested Date: July 20, 2020 15:16 Report Status: Final Requested Procedure: 1 Procedure Description: VL venous duplex LE RT Modality: VL Findings Reporting MD: Xander Espinoza Dictation Time: July 20, 2020 14:59 Photographic Artist: Not available Grounds Caretaker Date: Right lower extremity Doppler venous ultrasound INDICATION: Swelling FINDINGS: The right common femoral vein, superficial femoral vein and popliteal vein have normal compressibility and phasic flow. IMPRESSION: No evidence for DVT. Signer Name: Xander Espinoza MD Signed: 07/20/2020 2:59 PM Workstation Name: [id number] - Medical Decision Making Postoperative infection: DVT ruled out with duplex ultrasound. X-ray revealed diffuse soft tissue swelling, patient has been compliant Considering the mild symptoms, I suspect that typical swelling after total knee replacement is also likely. Patient is not toxic appearing. No fever or leukocytosis. Next I spoke with Dr. Draper who agreed with p.o. antibiotics and follow-up in office next week. Critical care attestation.: If time is entered above; I have spent that time in minutes in the direct care of this critically ill patient, excluding procedure time. ED Disposition Clinical Impression: Postoperative infection of knee, Status post total knee replacement, right, Postoperative edema Disposition: - TO HOME OR SELFCARE Is pt being admited?: No Does the pt Need Aspirin: No Condition: Stable Instructions: Wound Infection, [id number] Prescriptions: cephALEXin [Keflex] 500 mg PO TID 7 Days #21 capsule oxyCODONE /ACETAMINOPHEN [Percocet 5/325] 1 tab PO Q6HR PRN #15 tablet PRN Reason: Pain Referrals: HUSEYIN DRAPER MD [Staff Physician] - 3-5 Days
[2020-07-20 17:29] VITALS: BP 140/94
== END 2020-07-20 17:48 | disposition home or self-care (01) ==
LOC: ED 13:04
DX: R60.9 Edema, unspecified (principal); I10 Essential (primary) hypertension; F41.9 Anxiety disorder, unspecified; F17.200 Nicotine dependence, unspecified, uncomplicated; Z98.890 Other specified postprocedural states; Z90.49 Acquired absence of other specified parts of digestive tract; Z79.899 Other long term (current) drug therapy; Z96.651 Presence of right artificial knee joint
CPT/HCPCS: 36415; 80048; 85025; 85652; 86140

== ENCOUNTER 2021-02-17 12:27 | Inpatient (IN) | payer MEDICAID ==
--- NOTE | 2021-02-17 12:56 | Emergency Department Report ---
ED Shortness of Breath HPI - General Chief Complaint: Dyspnea/Respdistress Stated Complaint: DIFFICULTY BREATHING Time Seen by Provider: 02/17/21 12:43 Source: patient, EMS Mode of arrival: Stretcher Limitations: No Limitations - History of Present Illness Initial Comments: Patient is 61 years old female with history of hypertension, diabetes and DVT cu rrently on Eliquis. Patient brought to the emergency room via EMS from home for evaluation of shortness of breath cough and generalized weakness for the last 5 days. Patient stated that she tested positive for COVID-19 on February 10 and since then she has not been feeling well. EMS stated that patient initial oxygen saturation was 75% on room air improved to 86% on a nonrebreather. Patient stated that her daughter also tested positive. MD Complaint: shortness of breath, cough Severity: severe Context: recent URI - Related Data Home Medications Medication Instructions Recorded Confirmed Last Taken Sertraline [Zoloft] 50 mg PO QDAY 05/12/14 06/07/20 06/07/20 05:00 amLODIPine [Norvasc] 10 mg PO DAILY 05/12/14 06/07/20 06/07/20 05:00 Apixaban [Eliquis] 2.5 mg PO BID 05/17/20 06/07/20 06/03/20 09:00 Gabapentin [Neurontin] 400 mg PO BID 05/17/20 06/07/20 06/04/20 17:00 Previous Rx's Medication Instructions Recorded Last Taken Type Apixaban [Eliquis] 5 mg PO DAILY #30 tablet 06/08/20 Unknown Rx Oxycodone HCl/Acetaminophen 1 each PO Q6HR PRN #30 tablet 06/08/20 Unknown Rx [Percocet 10/325 mg] cephALEXin [Keflex] 500 mg PO TID 7 Days #21 capsule 07/20/20 Unknown Rx oxyCODONE /ACETAMINOPHEN [Percocet 1 tab PO Q6HR PRN #15 tablet 07/20/20 Unknown Rx 5/325] Allergies Allergy/AdvReac Type Severity Reaction Status Date / Time No Known Allergies Allergy Verified 02/17/21 12:33 ED Review of Systems ROS: Stated complaint: DIFFICULTY BREATHING Other details as noted in HPI Comment: All other systems reviewed and negative Constitutional: chills, fever Respiratory: cough, orthopnea, shortness of breath, SOB with exertion, SOB at rest. denies: wheezing Cardiovascular: denies: chest pain, palpitations Gastrointestinal: denies: abdominal pain, nausea, vomiting ED Past Medical Hx - Past Medical History Previous Medical History?: Yes Hx Hypertension: Yes Hx Congestive Heart Failure: No Hx Diabetes: Yes Hx Deep Vein Thrombosis: Yes (LEFT CALF AFTER BACK SURGERY. LUNG LAST YEAR - TAKES ELIQUIS) Hx Arthritis: Yes (BILATERAL KNEES, RIGHT HIP) Hx Headaches / Migraines: Yes (MIGRAINES) Hx Psychiatric Treatment: Yes (anxiety, claustrophobic) Hx Asthma: No Hx COPD: No Additional medical history: hx blood clot to her left leg, chronic pain, LUPUS - Surgical History Hx Cholecystectomy: Yes Additional Surgical History: 2 back surgeries, , reversable colostomy, right total hip replacement, knee surgeries; surgery to left foot; - Social History Smoking Status: Unknown if ever smoked - Medications Home Medications: Home Medications Medication Instructions Recorded Confirmed Last Taken Type Sertraline [Zoloft] 50 mg PO QDAY 05/12/14 06/07/20 06/07/20 05:00 History amLODIPine [Norvasc] 10 mg PO DAILY 05/12/14 06/07/20 06/07/20 05:00 History Apixaban [Eliquis] 2.5 mg PO BID 05/17/20 06/07/20 06/03/20 09:00 History Gabapentin [Neurontin] 400 mg PO BID 05/17/20 06/07/20 06/04/20 17:00 History Apixaban [Eliquis] 5 mg PO DAILY #30 tablet 06/08/20 Unknown Rx Oxycodone HCl/Acetaminophen 1 each PO Q6HR PRN #30 tablet 06/08/20 Unknown Rx [Percocet 10/325 mg] cephALEXin [Keflex] 500 mg PO TID 7 Days #21 capsule 07/20/20 Unknown Rx oxyCODONE /ACETAMINOPHEN [Percocet 1 tab PO Q6HR PRN #15 tablet 07/20/20 Unkn own Rx 5/325] ED Physical Exam - General Limitations: No Limitations General appearance: alert, in distress - Head Head exam: Present: atraumatic, normocephalic, normal inspection - Eye Eye exam: Present: normal appearance, PERRL - ENT ENT exam: Present: mucous membranes dry - Neck Neck exam: Present: normal inspection, full ROM. Absent: tenderness, meningismus - Respiratory Respiratory exam: Present: respiratory distress, rales, decreased breath sounds. Absent: wheezes, rhonchi, prolonged expiratory - Cardiovascular Cardiovascular Exam: Present: regular rate, normal rhythm, normal heart sounds - GI/Abdominal GI/Abdominal exam: Present: soft, normal bowel sounds. Absent: distended, tenderness, guarding, rebound, rigid, organomegaly, mass, bruit, pulsatile mass, hernia - Extremities Exam Extremities exam: Present: normal inspection, full ROM, normal capillary refill. Absent: tenderness - Back Exam Back exam: Present: normal inspection, full ROM. Absent: CVA tenderness (R), CVA tenderness (L) - Neurological Exam Neurological exam: Present: alert, oriented X3, CN II-XII intact - Psychiatric Psychiatric exam: Present: normal mood - Skin Skin exam: Present: warm, intact, normal color ED Course Vital Signs 02/17/21 02/17/21 12:29 13:29 Temperature 97.2 F L Pulse Rate 97 H Respiratory 26 H Rate Blood Pressure 133/87 [Left] O2 Sat by Pulse 86 87 Oximetry ED Medical Decision Making - Lab Data Result diagrams: 02/17/21 14:34 02/17/21 14:34 - Radiology Data Radiology results: report reviewed - Medical Decision Making Patient is 61 years old female with history of hypertension, diabetes and DVT currently on Eliquis. Patient brought to the emergency room via EMS from home for evaluation of shortness of breath cough and generalized weakness for the last 5 days. Patient stated that she tested positive for COVID-19 on February 10 and since then she has not been feeling well. EMS stated that patient initial oxygen saturation was 75% on room air improved to 86% on a nonrebreather. Patient stated that her daughter also tested positive. Chest x-ray showed severe multifocal pneumonia. Patient received Rocephin, Zithromax and Decadron. I discussed the patient with Dr. Ramsey, he agreed to admit the patient to medical service for further management. Critical Care Time: Yes Critical care time in (mins) excluding proc time.: 35 Critical care attestation.: If time is entered above; I have spent that time in minutes in the direct care of this critically ill patient, excluding procedure time. ED Disposition Clinical Impression: Acute respiratory failure with hypoxia, Multifocal pneumonia, Suspected COVID- 19 virus infection Disposition: 09 ADMITTED INPATIENT Is pt being admited?: Yes Condition: Stable Instructions: Bacterial Pneumonia (ED)
[2021-02-17] MEDS ORDERED: dexAMETHasone 20 MG/5 ML VIAL IV ONE ×2 (13:35→16:00)
[2021-02-17] MEDS ORDERED: cefTRIAXone/NS 1 GM/50 ML 1 GM/50 ML BAG IV ONE (13:35)
[2021-02-17] MEDS ORDERED: AZITHROMYCIN/NS 500 MG/250 ML 500 MG/250 ML BAG IV ONE ×2 (13:35→16:00)
--- NOTE | 2021-02-17 13:40 | XRay Report ---
CHEST 1 VIEW 02/17/2021 1:25 PM INDICATION / CLINICAL INFORMATION: Dyspnea. COMPARISON: None available. FINDINGS: SUPPORT DEVICES: None. HEART / MEDIASTINUM: No significant abnormality. LUNGS / PLEURA: There are severe diffuse bilateral patchy opacities. No pneumothorax. ADDITIONAL FINDINGS: No significant additional findings. IMPRESSION: 1. Severe diffuse bilateral patchy pulmonary opacities suggesting multifocal pneumonia. Signer Name: Alok Marino MD Signed: 02/17/2021 1:36 PM Workstation Name: [id number]
[2021-02-17 14:55] LABS: Hematocrit 44.9 % (30.3-42.9); Hemoglobin 14.2 gm/dl (10.1-14.3); Mean Corpuscular HGB Conc 32 % (30-34); Mean Corpuscular Volume 91 fl (79-97); Platelet Count 278 K/mm3 (140-440); Red Blood Count 4.92 M/mm3 (3.65-5.03); Red Cell Distribution Width 15.6 % (13.2-15.2)
[2021-02-17 15:12] LABS: INR 0.96 (0.87-1.13); Partial Thromboplastin Time 26.4 Sec. (24.2-36.6)
[2021-02-17 15:19] LABS: BUN/Creatinine Ratio 25; Blood Urea Nitrogen 27 mg/dL (7-17); Hemolysis Index 6
[2021-02-17 15:22] LABS: Alanine Aminotransferase 32 units/L (7-56); Albumin 4.1 g/dL (3.9-5)
[2021-02-17 15:24] LABS: Bilirubin,Direct < 0.2 mg/dL (0-0.2)
[2021-02-17 15:38] LABS: Total Cells Counted 100
[2021-02-17 15:39] LABS: Platelet Estimate Consistent w Auto; RBC Morphology Normal
--- NOTE | 2021-02-17 23:54 | History and Physical Report ---
History of Present Illness Date of examination: 02/17/21 Date of admission: 02/17/21 Chief complaint: Shortness of breath for 1 week since February 10 History of present illness: Patient is 61 years old female with history of hypertension, diabetes and DVT currently on Eliquis. Patient brought to the emergency room via EMS from home for evaluation of shortness of breath cough and generalized weakness for the last 5 days. Patient stated that she tested positive for COVID-19 on February 10 and since then she has not been feeling well. EMS stated that patient i jordyn oxygen saturation was 75% on room air improved to 86% on a nonrebreather. Patient stated that her daughter also tested positive. - Past Medical History Previous Medical History?: Yes --Hypertension: Yes --Diabetes: Yes --Deep Vein Thrombosis: Yes (LEFT CALF AFTER BACK SURGERY. LUNG LAST YEAR -TAKES ELIQUIS) --Arthritis: Yes (BILATERAL KNEES, RIGHT HIP) --Headaches / Migraines: Yes (MIGRAINES) --Psychiatric Treatment: Yes (anxiety, claustrophobic) --Additional medical history: hx blood clot to her left leg, chronic pain, LUPUS - Surgical History --Cholecystectomy: Yes --Additional Surgical History: 2 back surgeries, , reversable colostomy, right total hip replacement, knee surgeries; surgery to left foot; - Social History --Smoking Status: Unknown if ever smoked Review of Systems ROS: Stated complaint: DIFFICULTY BREATHING Other details as noted in HPI Comment: All other systems reviewed and negative Constitutional: chills, fever Respiratory: cough, orthopnea, shortness of breath, SOB with exertion, SOB at rest. denies: wheezing Cardiovascular: denies: chest pain, palpitations Gastrointestinal: denies: abdominal pain, nausea, vomiting Medications and Allergies Allergies Allergy/AdvReac Type Severity Reaction Status Date / Time No Known Allergies Allergy Verified 02/17/21 12:33 Home Medications Medication Instructions Recorded Confirmed Last Taken Type Sertraline [Zoloft] 50 mg PO QDAY 05/12/14 06/07/20 06/07/20 05:00 History amLODIPine [Norvasc] 10 mg PO DAILY 05/12/14 06/07/20 06/07/20 05:00 History Apixaban [Eliquis] 2.5 mg PO BID 05/17/20 06/07/20 06/03/20 09:00 History Gabapentin [Neurontin] 400 mg PO BID 05/17/20 06/07/20 06/04/20 17:00 History Apixaban [Eliquis] 5 mg PO DAILY #30 tablet 06/08/20 Unknown Rx Oxycodone HCl/Acetaminophen 1 each PO Q6HR PRN #30 tablet 06/08/20 Unknown Rx [Percocet 10/325 mg] cephALEXin [Keflex] 500 mg PO TID 7 Days #21 capsule 07/20/20 Unknown Rx oxyCODONE /ACETAMINOPHEN [Percocet 1 tab PO Q6HR PRN #15 tablet 07/20/20 Unknown Rx 5/325] Exam - Physical Exam Narrative exam: Patient is on 50% Ventimask - Constitutional Vitals: Temp Pulse Resp BP Pulse Ox 97.2 F L 91 H 26 H 102/70 91 02/17/21 12:29 02/17/21 19:16 02/17/21 12:29 02/17/21 19:16 02/17/21 21:15 General appearance: Present: mild distress, well-nourished - EENT Eyes: Present: PERRL ENT: hearing intact, clear oral mucosa - Neck Neck: Present: supple, normal ROM - Respiratory Respiratory effort: normal Respiratory: bilateral: CTA - Cardiovascular Heart rate: 78 Rhythm: regular Heart Sounds: Present: S1 & S2. Absent: rub, click - Extremities Extremities: pulses symmetrical, No edema Peripheral Pulses: within normal limits - Abdominal General gastrointestinal: Present: soft, non-tender, non-distended, normal bowel sounds Female genitourinary: Present: normal - Integumentary Integumentary: Present: clear, warm, dry - Musculoskeletal Musculoskeletal: gait normal, strength equal bilaterally - Psychiatric Psychiatric: appropriate mood/affect, intact judgment & insight - Neurologic Neurologic: CNII-XII intact, moves all extremities Results - Labs CBC & Chem 7: 02/18/21 07:48 02/18/21 07:48 Labs: Laboratory Last Values WBC 11.7 K/mm3 (4.5-11.0) H 02/17/21 14:34 RBC 4.92 M/mm3 (3.65-5.03) 02/17/21 14:34 Hgb 14.2 gm/dl (10.1-14.3) 02/17/21 14:34 Hct 44.9 % (30.3-42.9) H 02/17/21 14:34 MCV 91 fl (79-97) 02/17/21 14:34 MCH 29 pg (28-32) 02/17/21 14:34 MCHC 32 % (30-34) 02/17/21 14:34 RDW 15.6 % (13.2-15.2) H 02/17/21 14:34 Plt Count 278 K/mm3 (140-440) 02/17/21 14:34 Add Manual Diff Complete 02/17/21 14:34 Total Counted 100 02/17/21 14:34 Seg Neuts % (Manual) 70.0 % (40.0-70.0) 02/17/21 14:34 Lymphocytes % (Manual) 9.0 % (13.4-35.0) L 02/17/21 14:34 Reactive Lymphs % (Man) 2.0 % 02/17/21 14:34 Monocytes % (Manual) 12.0 % (0.0-7.3) H 02/17/21 14:34 Eosinophils % (Manual) 3.0 % (0.0-4.3) 02/17/21 14:34 Metamyelocytes % 4.0 % 02/17/21 14:34 Nucleated RBC % Not Reportable 02/17/21 14:34 Seg Neutrophils # Man 8.2 K/mm3 (1.8-7.7) H 02/17/21 14:34 Band Neutrophils # 0.0 K/mm3 02/17/21 14:34 Lymphocytes # (Manual) 1.1 K/mm3 (1.2-5.4) L 02/17/21 14:34 Abs React Lymphs (Man) 0.2 K/mm3 02/17/21 14:34 Monocytes # (Manual) 1.4 K/mm3 (0.0-0.8) H 02/17/21 14:34 Eosinophils # (Manual) 0.4 K/mm3 (0.0-0.4) 02/17/21 14:34 Basophils # (Manual) 0.0 K/mm3 (0.0-0.1) 02/17/21 14:34 Metamyelocytes # 0.5 K/mm3 02/17/21 14:34 Myelocytes # 0.0 K/mm3 02/17/21 14:34 Promyelocytes # 0.0 K/mm3 02/17/21 14:34 Blast Cells # 0.0 K/mm3 02/17/21 14:34 WBC Morphology Not Reportable 02/17/21 14:34 WBC Morphology TNR 02/17/21 14:34 Hypersegmented Neuts Not Reportable 02/17/21 14:34 Hyposegmented Neuts Not Reportable 02/17/21 14:34 Hypogranular Neuts Not Reportable 02/17/21 14:34 Smudge Cells Not Reportable 02/17/21 14:34 Toxic Granulation Not Reportable 02/17/21 14:34 Toxic Vacuolation Not Reportable 02/17/21 14:34 Dohle Bodies Not Reportable 02/17/21 14:34 Pelger-Huet Anomaly Not Reportable 02/17/21 14:34 Cindy Rods Not Reportable 02/17/21 14:34 Platelet Estimate Consistent w auto 02/17/21 14:34 Clumped Platelets Not Reportable 02/17/21 14:34 Plt Clumps, EDTA Not Reportable 02/17/21 14:34 Large Platelets Not Reportable 02/17/21 14:34 Giant Platelets Not Reportable 02/17/21 14:34 Platelet Satelliting Not Reportable 02/17/21 14:34 Plt Morphology Comment Not Reportable 02/17/21 14:34 RBC Morphology Normal 02/17/21 14:34 Dimorphic RBCs Not Reportable 02/17/21 14:34 Polychromasia Not Reportable 02/17/21 14:34 Hypochromasia Not Reportable 02/17/21 14:34 Poikilocytosis Not Reportable 02/17/21 14:34 Anisocytosis Not Reportable 02/17/21 14:34 Microcytosis Not Reportable 02/17/21 14:34 Macrocytosis Not Reportable 02/17/21 14:34 Spherocytes Not Reportable 02/17/21 14:34 Pappenheimer Bodies Not Reportable 02/17/21 14:34 Sickle Cells Not Reportable 02/17/21 14:34 Target Cells Not Reportable 02/17/21 14:34 Tear Drop Cells Not Reportable 02/17/21 14:34 Ovalocytes Not Reportable 02/17/21 14:34 Helmet Cells Not Reportable 02/17/21 14:34 [place]ner-Shallow Water Bodies Not Reportable 02/17/21 14:34 [place] Rings Not Reportable 02/17/21 14:34 Alicia Cells Not Reportable 02/17/21 14:34 Bite Cells Not Reportable 02/17/21 14:34 Crenated Cell Not Reportable 02/17/21 14:34 Elliptocytes Not Reportable 02/17/21 14:34 Acanthocytes (Spur) Not Reportable 02/17/21 14:34 Rouleaux Not Reportable 02/17/21 14:34 Hemoglobin C Crystals Not Reportable 02/17/21 14:34 Schistocytes Not Reportable 02/17/21 14:34 Malaria parasites Not Reportable 02/17/21 14:34 Pedro Pablo Bodies Not Reportable 02/17/21 14:34 Hem Pathologist Commnt No 02/17/21 14:34 PT 13.9 Sec. (12.2-14.9) 02/17/21 14:34 INR 0.96 (0.87-1.13) 02/17/21 14:34 APTT 26.4 Sec. (24.2-36.6) 02/17/21 14:34 Sodium 140 mmol/L (137-145) 02/17/21 14:34 Potassium 3.5 mmol/L (3.6-5.0) L 02/17/21 14:34 Chloride 100.1 mmol/L (98-107) 02/17/21 14:34 Carbon Dioxide 23 mmol/L (22-30) 02/17/21 14:34 Anion Gap 20 mmol/L 02/17/21 14:34 BUN 27 mg/dL (7-17) H 02/17/21 14:34 Creatinine 1.1 mg/dL (0.6-1.2) 02/17/21 14:34 Estimated GFR > 60 ml/min 02/17/21 14:34 BUN/Creatinine Ratio 25 % 02/17/21 14:34 Glucose 150 mg/dL (65-100) H 02/17/21 14:34 Lactic Acid 1.60 mmol/L (0.7-2.0) 02/17/21 18:39 Calcium 9.0 mg/dL (8.4-10.2) 02/17/21 14:34 Total Bilirubin 0.30 mg/dL (0.1-1.2) 02/17/21 14:34 Direct Bilirubin < 0.2 mg/dL (0-0.2) 02/17/21 14:34 Indirect Bilirubin 0.1 mg/dL 02/17/21 14:34 AST 40 units/L (5-40) 02/17/21 14:34 ALT 32 units/L (7-56) 02/17/21 14:34 Alkaline Phosphatase 60 units/L (35-129) 02/17/21 14:34 NT-Pro-B Natriuret Pep 1619 pg/mL (0-900) H 02/17/21 14:34 Total Protein 7.7 g/dL (6.3-8.2) 02/17/21 14:34 Albumin 4.1 g/dL (3.9-5) 02/17/21 14:34 Albumin/Globulin Ratio 1.1 % 02/17/21 14:34 Short CBC 02/18/21 Range/Units 07:48 WBC 12.0 H (4.5-11.0) K/mm3 Hgb 13.6 (10.1-14.3) gm/dl Hct 42.6 (30.3-42.9) % Plt Count 226 (140-440) K/mm3 BMP 02/18/21 07:48 Sodium 139 Potassium 4.7 D Chloride 101.0 Carbon Dioxide 23 BUN 36 H Creatinine 0.8 Glucose 133 H Calcium 9.1 Liver Function 02/18/21 Range/Units 07:48 Total Bilirubin 0.30 (0.1-1.2) mg/dL AST 57 H (5-40) units/L ALT 38 (7-56) units/L Alkaline Phosphatase 60 (35-129) units/L Albumin 3.3 L (3.9-5) g/dL Urine 02/18/21 Range/Units Unknown Urine Color Cassandra (Yellow) Urine pH 5.0 (5.0-7.0) Ur Specific Inez 1.027 (1.003-1.030) Urine Protein 100 mg/dl (Negative) mg/dL Urine Glucose (UA) Neg (Negative) mg/dL Microbiology: Microbiology 02/17/21 14:34 Peripheral/Venous Blood Culture - Preliminary Culture in Progress 02/17/21 14:34 Peripheral/Venous Blood Culture - Preliminary Culture in Progress - Imaging and Cardiology Chest x-ray: report reviewed Imaging and Cardiology: Severe diffuse bilateral patchy pulmonary opacities suggesting multifocal pneumonia Assessment and Plan Advance Directives: Yes (Full code) - Patient Problems (1) Acute respiratory failure with hypoxia Current Visit: Yes Status: Acute Plan to address problem: Patient on Xarelto was on Ventimask Rule out Covid pneumonia Respiratory assessment and treatment Supplemental oxygen as necessary Patient is very hypoxic on room air around 76% Improved with oxygen supplementation (2) SIRS (systemic inflammatory response syndrome) Current Visit: Yes Status: Acute Plan to address problem: Clinical picture consistent with Sirs ) Markers not done (3) Multifocal pneumonia Current Visit: Yes Status: Acute Plan to address problem: IV antibiotics in the form of azithromycin and Rocephin (4) Suspected COVID-19 virus infection Current Visit: Yes Status: Acute Plan to address problem: Coronavirus PCR test in a.m. 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
[2021-02-17] MEDS ORDERED: HYDROmorphone 1 MG/1 ML INJ IV PRN (23:58)
[2021-02-17] MEDS ORDERED: ONDANSETRON 4 MG/2 ML INJ IV PRN (23:58)
[2021-02-18] MEDS: POTASSIUM CHLORIDE ER 20 MEQ TAB PO SCH ×2 (00:30→11:49)
[2021-02-18 05:58] LABS: Bilirubin,Urine NEG (Negative); Blood,Urine NEG (Negative); Color,Urine Amber (Yellow); Mucus,Urine 2+ /HPF; Urobilinogen,Urine < 2.0 mg/dL (<2.0)
[2021-02-18] MEDS: FUROSEMIDE 40 MG/4 ML INJ IV SCH (08:37)
[2021-02-18 08:58] LABS: Hematocrit 42.6 % (30.3-42.9); Hemoglobin 13.6 gm/dl (10.1-14.3); Mean Corpuscular HGB Conc 32 % (30-34); Mean Corpuscular Volume 90 fl (79-97); Red Blood Count 4.76 M/mm3 (3.65-5.03); Red Cell Distribution Width 15.4 % (13.2-15.2)
[2021-02-18 09:08] LABS: Platelet Count 226 K/mm3 (140-440)
[2021-02-18 09:20] LABS: Alanine Aminotransferase 38 units/L (7-56); Albumin 3.3 g/dL (3.9-5); BUN/Creatinine Ratio 45; Blood Urea Nitrogen 36 mg/dL (7-17); Calcium 9.1 mg/dL (8.4-10.2); Hemolysis Index 131
[2021-02-18] MEDS ORDERED: ENOXAPARIN 40 MG/0.4 ML INJ SUB-Q SCH (10:00)
[2021-02-18] MEDS ORDERED: AZITHROMYCIN/NS 500 MG/250 ML 500 MG/250 ML BAG IV SCH (10:00)
[2021-02-18] MEDS ORDERED: ENOXAPARIN 30 MG/0.3 ML INJ SUB-Q SCH (10:00)
[2021-02-18 10:55] LABS: Total Cells Counted 100
[2021-02-18 10:56] LABS: Myelocytes # (Manual) 0.2 K/mm3; Platelet Estimate Consistent w Auto; Promyelocytes # (Manual) 0.1 K/mm3; RBC Morphology Normal
[2021-02-18] MEDS: dexAMETHasone 4 MG/ML VIAL IV SCH (11:42)
[2021-02-18] MEDS: FAMOTIDINE 20 MG TAB PO SCH (11:43)
[2021-02-18] MEDS: cefTRIAXone/NS 2 GM/100 ML 2 GM/100 ML BAG IV SCH (11:43)
[2021-02-18] MEDS: AZITHROMYCIN 250 MG TAB PO SCH (11:44)
[2021-02-19] MEDS: FAMOTIDINE 20 MG TAB PO SCH ×3 (01:54→22:07)
--- NOTE | 2021-02-19 03:05 | Progress Note ---
Assessment and Plan - Patient Problems (1) Acute respiratory failure with hypoxia Current Visit: Yes Status: Acute Plan to address problem: Patient on Xarelto was on Ventimask Rule out Covid pneumonia Respiratory assessment and treatment Supplemental oxygen as necessary Patient is very hypoxic on room air around 76% Improved with oxygen supplementation (2) SIRS (systemic inflammatory response syndrome) Current Visit: Yes Status: Acute Plan to address problem: Clinical picture consistent with Sirs ) Markers not done (3) Multifocal pneumonia Current Visit: Yes Status: Acute Plan to address problem: IV antibiotics in the form of azithromycin and Rocephin (4) Suspected COVID-19 virus infection Current Visit: Yes Status: Acute Plan to address problem: Coronavirus PCR test in a.m. 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 Patient brought to the emergency room via EMS from home for evaluation of shortness of breath cough and generalized weakness for the last 5 days. Patient stated that she tested positive for COVID-19 on February 10 and since then she has not been feeling well. EMS stated that patient initial oxygen saturation was 75% on room air improved to 86% on a nonrebreather. Patient stated that her daughter also tested positive. 02/19/2020 Patient on 50% Ventimask Covid positive Continue steroids May DC antibiotics Respiratory assessment and treatment Objective - Exam Narrative Exam: Patient is on 50% Ventimask - Constitutional Vitals: Vital Signs - 12hr 02/18/21 02/18/21 02/18/21 16:10 20:27 22:36 Respiratory 28 H 32 H Rate Blood Pressure 133/88 136/77 O2 Sat by Pulse 94 96 96 Oximetry General appearance: Present: mild distress, well-nourished - EENT Eyes: PERRL, EOM intact ENT: hearing intact, clear oral mucosa Ears: bilateral: normal - Neck Neck: supple, normal ROM - Respiratory Respiratory effort: normal Respiratory: bilateral: CTA - Breasts Breasts: normal - Cardiovascular Heart rate: 78 Rhythm: regular Heart Sounds: Present: S1 & S2. Absent: gallop, rub Extremities: pulses intact, No edema, normal color, Full ROM - Gastrointestinal General gastrointestinal: Present: soft, non-tender, non-distended, normal bowel sounds - Genitourinary Female genitourinary: normal - Integumentary Integumentary: clear, warm, dry - Musculoskeletal Musculoskeletal: 1, strength equal bilaterally - Neurologic Neurologic: moves all extremities - Psychiatric Psychiatric: memory intact, appropriate mood/affect, intact judgment & insight - Labs CBC & Chem 7: 02/18/21 07:48 02/18/21 07:48 Labs: Abnormal lab results 02/18/21 02/18/21 02/18/21 Range/Units 07:48 07:48 Unknown WBC 12.0 H (4.5-11.0) K/mm3 RDW 15.4 H (13.2-15.2) % Seg Neuts % (Manual) 76.0 H (40.0-70.0) % Seg Neutrophils # Man 9.1 H (1.8-7.7) K/mm3 BUN 36 H (7-17) mg/dL Glucose 133 H (65-100) mg/dL AST 57 H (5-40) units/L Albumin 3.3 L (3.9-5) g/dL Urine WBC (Auto) 7.0 H (0.0-6.0) /HPF Coronavirus (PCR) (Negative) 02/18/21 Range/Units Unknown WBC (4.5-11.0) K/mm3 RDW (13.2-15.2) % Seg Neuts % (Manual) (40.0-70.0) % Seg Neutrophils # Man (1.8-7.7) K/mm3 BUN (7-17) mg/dL Glucose (65-100) mg/dL AST (5-40) units/L Albumin (3.9-5) g/dL Urine WBC (Auto) (0.0-6.0) /HPF Coronavirus (PCR) Positive A (Negative)
[2021-02-19] MEDS ORDERED: NON-FORMULARY EACH (Apixaban 2.5 MG Tablet) PO SCH (03:15)
[2021-02-19] MEDS ORDERED: REMDESIVIR 200 MG in SODIUM CHLORIDE 0.9% 250ML 250 ML IV ONE (04:00)
[2021-02-19] MEDS: APIXABAN 2.5 MG TAB PO SCH ×3 (04:11→22:07)
[2021-02-19] MEDS: GABAPENTIN 400 MG CAP PO SCH ×3 (04:11→22:07)
[2021-02-19] MEDS: SODIUM CHLORIDE 0.9% 50 ML IVPB IV SCH (05:36)
[2021-02-19 08:47] LABS: Alanine Aminotransferase 51 units/L (7-56); Albumin 3.7 g/dL (3.9-5); BUN/Creatinine Ratio 51; Blood Urea Nitrogen 41 mg/dL (7-17); Calcium 9.1 mg/dL (8.4-10.2); Hemolysis Index 1
[2021-02-19] MEDS: FUROSEMIDE 40 MG/4 ML INJ IV SCH (10:51)
[2021-02-19] MEDS: SERTRALINE 50 MG TAB PO SCH (10:52)
[2021-02-19] MEDS: ZINC SULFATE 220 MG CAP PO SCH (10:52)
[2021-02-19] MEDS: POTASSIUM CHLORIDE ER 20 MEQ TAB PO SCH (10:52)
[2021-02-19] MEDS: cefTRIAXone/NS 2 GM/100 ML 2 GM/100 ML BAG IV SCH (10:55)
[2021-02-19] MEDS: dexAMETHasone 4 MG/ML VIAL IV SCH (10:56)
[2021-02-19] MEDS: amLODIPine 10 MG TAB PO SCH (10:58)
[2021-02-19] MEDS: CHOLECALCIFEROL (VIT D3) 5,000 UNIT TAB PO SCH (10:59)
[2021-02-19] MEDS: ASCORBIC ACID 500 MG TAB PO SCH ×2 (10:59→22:06)
[2021-02-19] MEDS: AZITHROMYCIN 250 MG TAB PO SCH (11:00)
--- NOTE | 2021-02-19 12:01 | Progress Note ---
Assessment and Plan Assessment and plan: Patient is 61 years old female with history of hypertension, diabetes and DVT currently on Eliquis. Patient brought to the emergency room via EMS from home for evaluation of shortness of breath cough and generalized weakness for the last 5 days. Patient stated that she tested positive for COVID-19 on February 10 and since then she has not been feeling well. EMS stated that patient initial oxygen saturation was 75% on room air improved to 86% on a nonrebreather. Patient stated that her daughter also tested positive. 02/19/2020 Patient on 50% Ventimask Covid positive Continue steroids May DC antibiotics Respiratory assessment and treatment 02/19: Patient still hypoxic, encourage prone positioning, Pulmonary and ID consult. Will obtain CTA chest to evaluate for PE. Continue steroid therapy and oxygen therapy wean as tolerated. Continuous pulse oximeter. Plan discussed with the patient (1) Acute respiratory failure with hypoxia Current Visit: Yes Status: Acute Plan to address problem: Patient on Xarelto was on Ventimask Rule out Covid pneumonia Respiratory assessment and treatment Supplemental oxygen as necessary Patient is very hypoxic on room air around 76% Improved with oxygen supplementation (2) SIRS (systemic inflammatory response syndrome) Current Visit: Yes Status: Acute Plan to address problem: Clinical picture consistent with Sirs ) Markers not done (3) Multifocal pneumonia Current Visit: Yes Status: Acute Plan to address problem: IV antibiotics in the form of azithromycin and Rocephin (4)COVID-19 virus infection Current Visit: Yes Status: Acute Plan to address problem: Coronavirus PCR test in a.m. 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 Absent: gallop, rub Extremities: pulses intact, No edema, normal color, Full ROM - Gastrointestinal General gastrointestinal: Present: soft, non-tender, non-distended, normal bowel sounds - Genitourinary Female genitourinary: normal - Integumentary Integumentary: clear, warm, dry - Musculoskeletal Musculoskeletal: 1, strength equal bilaterally - Neurologic Neurologic: moves all extremities - Psychiatric Psychiatric: memory intact, appropriate mood/affect, intact judgment & insight - Constitutional Vitals: Temp Pulse Resp BP Pulse Ox 97.6 F 71 26 H 145/92 95 02/19/21 06:45 02/19/21 06:45 02/19/21 06:45 02/19/21 06:45 02/19/21 06:45 General appearance: Present: mild distress, well-nourished Results - Labs CBC & Chem 7: 02/18/21 07:48 02/19/21 07:32 Labs: Laboratory Last Values WBC 12.0 K/mm3 (4.5-11.0) H 02/18/21 07:48 RBC 4.76 M/mm3 (3.65-5.03) 02/18/21 07:48 Hgb 13.6 gm/dl (10.1-14.3) 02/18/21 07:48 Hct 42.6 % (30.3-42.9) 02/18/21 07:48 MCV 90 fl (79-97) 02/18/21 07:48 MCH 29 pg (28-32) 02/18/21 07:48 MCHC 32 % (30-34) 02/18/21 07:48 RDW 15.4 % (13.2-15.2) H 02/18/21 07:48 Plt Count 226 K/mm3 (140-440) 02/18/21 07:48 Add Manual Diff Complete 02/18/21 07:48 Total Counted 100 02/18/21 07:48 Seg Neuts % (Manual) 76.0 % (40.0-70.0) H 02/18/21 07:48 Lymphocytes % (Manual) 14.0 % (13.4-35.0) 02/18/21 07:48 Reactive Lymphs % (Man) 2.0 % 02/17/21 14:34 Monocytes % (Manual) 7.0 % (0.0-7.3) 02/18/21 07:48 Eosinophils % (Manual) 3.0 % (0.0-4.3) 02/17/21 14:34 Metamyelocytes % 4.0 % 02/17/21 14:34 Myelocytes % 2.0 % 02/18/21 07:48 Promyelocytes % 1.0 % 02/18/21 07:48 Nucleated RBC % Not Reportable 02/18/21 07:48 Seg Neutrophils # Man 9.1 K/mm3 (1.8-7.7) H 02/18/21 07:48 Band Neutrophils # 0.0 K/mm3 02/18/21 07:48 Lymphocytes # (Manual) 1.7 K/mm3 (1.2-5.4) 02/18/21 07:48 Abs React Lymphs (Man) 0.0 K/mm3 02/18/21 07:48 Monocytes # (Manual) 0.8 K/mm3 (0.0-0.8) 02/18/21 07:48 Eosinophils # (Manual) 0.0 K/mm3 (0.0-0.4) 02/18/21 07:48 Basophils # (Manual) 0.0 K/mm3 (0.0-0.1) 02/18/21 07:48 Metamyelocytes # 0.0 K/mm3 02/18/21 07:48 Myelocytes # 0.2 K/mm3 02/18/21 07:48 Promyelocytes # 0.1 K/mm3 02/18/21 07:48 Blast Cells # 0.0 K/mm3 02/18/21 07:48 WBC Morphology Not Reportable 02/18/21 07:48 Hypersegmented Neuts Not Reportable 02/18/21 07:48 Hyposegmented Neuts Not Reportable 02/18/21 07:48 Hypogranular Neuts Not Reportable 02/18/21 07:48 Smudge Cells Not Reportable 02/18/21 07:48 Toxic Granulation Not Reportable 02/18/21 07:48 Toxic Vacuolation Not Reportable 02/18/21 07:48 Dohle Bodies Not Reportable 02/18/21 07:48 Pelger-Huet Anomaly Not Reportable 02/18/21 07:48 Cindy Rods Not Reportable 02/18/21 07:48 Platelet Estimate Consistent w auto 02/18/21 07:48 Clumped Platelets Not Reportable 02/18/21 07:48 Plt Clumps, EDTA Not Reportable 02/18/21 07:48 Large Platelets Not Reportable 02/18/21 07:48 Giant Platelets Not Reportable 02/18/21 07:48 Platelet Satelliting Not Reportable 02/18/21 07:48 Plt Morphology Comment Not Reportable 02/18/21 07:48 RBC Morphology Normal 02/18/21 07:48 Dimorphic RBCs Not Reportable 02/18/21 07:48 Polychromasia Not Reportable 02/18/21 07:48 Hypochromasia Not Reportable 02/18/21 07:48 Poikilocytosis Not Reportable 02/18/21 07:48 Anisocytosis Not Reportable 02/18/21 07:48 Microcytosis Not Reportable 02/18/21 07:48 Macrocytosis Not Reportable 02/18/21 07:48 Spherocytes Not Reportable 02/18/21 07:48 Pappenheimer Bodies Not Reportable 02/18/21 07:48 Sickle Cells Not Reportable 02/18/21 07:48 Target Cells Not Reportable 02/18/21 07:48 Tear Drop Cells Not Reportable 02/18/21 07:48 Ovalocytes Not Reportable 02/18/21 07:48 Helmet Cells Not Reportable 02/18/21 07:48 [place] Bodies Not Reportable 02/18/21 07:48 [place] Rings Not Reportable 02/18/21 07:48 Alicia Cells Not Reportable 02/18/21 07:48 Bite Cells Not Reportable 02/18/21 07:48 Crenated Cell Not Reportable 02/18/21 07:48 Elliptocytes Not Reportable 02/18/21 07:48 Acanthocytes (Spur) Not Reportable 02/18/21 07:48 Rouleaux Not Reportable 02/18/21 07:48 Hemoglobin C Crystals Not Reportable 02/18/21 07:48 Schistocytes Not Reportable 02/18/21 07:48 Malaria parasites Not Reportable 02/18/21 07:48 [place] Bodies Not Reportable 02/18/21 07:48 Hem Pathologist Commnt No 02/18/21 07:48 PT 13.9 Sec. (12.2-14.9) 02/17/21 14:34 INR 0.96 (0.87-1.13) 02/17/21 14:34 APTT 26.4 Sec. (24.2-36.6) 02/17/21 14:34 D-Dimer > 72197 ng/mlDDU (0-234) H 02/19/21 08:43 Sodium 148 mmol/L (137-145) H D 02/19/21 07:32 Potassium 4.2 mmol/L (3.6-5.0) 02/19/21 07:32 Chloride 105.5 mmol/L (98-107) 02/19/21 07:32 Carbon Dioxide 25 mmol/L (22-30) 02/19/21 07:32 Anion Gap 22 mmol/L 02/19/21 07:32 BUN 41 mg/dL (7-17) H 02/19/21 07:32 Creatinine 0.8 mg/dL (0.6-1.2) 02/19/21 07:32 Estimated GFR > 60 ml/min 02/19/21 07:32 BUN/Creatinine Ratio 51 % 02/19/21 07:32 Glucose 123 mg/dL (65-100) H 02/19/21 07:32 Lactic Acid 1.60 mmol/L (0.7-2.0) 02/17/21 18:39 Calcium 9.1 mg/dL (8.4-10.2) 02/19/21 07:32 Total Bilirubin 0.30 mg/dL (0.1-1.2) 02/19/21 07:32 Direct Bilirubin < 0.2 mg/dL (0-0.2) 02/17/21 14:34 Indirect Bilirubin 0.1 mg/dL 02/17/21 14:34 AST 57 units/L (5-40) H 02/19/21 07:32 ALT 51 units/L (7-56) 02/19/21 07:32 Alkaline Phosphatase 70 units/L (35-129) 02/19/21 07:32 C-Reactive Protein 10.90 mg/dL (0.00-1.30) H 02/19/21 07:32 NT-Pro-B Natriuret Pep 1619 pg/mL (0-900) H 02/17/21 14:34 Total Protein 7.2 g/dL (6.3-8.2) 02/19/21 07:32 Albumin 3.7 g/dL (3.9-5) L 02/19/21 07:32 Albumin/Globulin Ratio 1.1 % 02/19/21 07:32 Urine Color Cassandra (Yellow) 02/18/21 Unknown Urine Turbidity Cloudy (Clear) 02/18/21 Unknown Urine pH 5.0 (5.0-7.0) 02/18/21 Unknown Ur Specific [place] 1.027 (1.003-1.030) 02/18/21 Unknown Urine Protein 100 mg/dl mg/dL (Negative) 02/18/21 Unknown Urine Glucose (UA) Neg mg/dL (Negative) 02/18/21 Unknown Urine Ketones Neg mg/dL (Negative) 02/18/21 Unknown Urine Blood Neg (Negative) 02/18/21 Unknown Urine Nitrite Neg (Negative) 02/18/21 Unknown Urine Bilirubin Neg (Negative) 02/18/21 Unknown Urine Urobilinogen < 2.0 mg/dL (<2.0) 02/18/21 Unknown Ur Leukocyte Esterase Neg (Negative) 02/18/21 Unknown Urine WBC (Auto) 7.0 /HPF (0.0-6.0) H 02/18/21 Unknown Urine RBC (Auto) 4.0 /HPF (0.0-6.0) 02/18/21 Unknown U Epithel Cells (Auto) 3.0 /HPF (0-13.0) 02/18/21 Unknown Urine Mucus 2+ /HPF 02/18/21 Unknown Coronavirus (PCR) Positive (Negative) A 02/18/21 Unknown Microbiology: Microbiology 02/17/21 14:34 Peripheral/Venous Blood Culture - Preliminary NO GROWTH AFTER 24 HOURS 02/17/21 14:34 Peripheral/Venous Blood Culture - Preliminary NO GROWTH AFTER 24 HOURS Active Medications - Current Medications Current Medications: Generic Name Dose Route Start Last Admin Trade Name Freq PRN Reason Stop Dose Admin Acetaminophen 650 mg 02/17/21 23:58 Acetaminophen 325 Mg Tab PO Q4H PRN Pain MILD(1-3)/Fever >100.5/BROWN Amlodipine Besylate 10 mg 02/19/21 10:00 02/19/21 10:58 Amlodipine 10 Mg Tab PO 10 mg DAILY DEISY Administration Apixaban 2.5 mg 02/19/21 03:30 02/19/21 10:59 Apixaban 2.5 Mg Tab PO 2.5 mg BID DEISY Administration Ascorbic Acid 1,000 mg 02/19/21 10:00 02/19/21 10:59 Ascorbic Acid 500 Mg Tab PO 1,000 mg BID DEISY Administration Azithromycin 500 mg 02/18/21 10:00 02/19/21 11:00 Azithromycin 250 Mg Tab PO 02/21/21 10:01 500 mg QDAY DEISY Administration Cholecalciferol 5,000 unit 02/19/21 10:00 02/19/21 10:59 Cholecalciferol (Vit D3) 5,000 Unit Tab PO 5,000 unit DAILY DEISY Administration Dexamethasone 8 mg 02/18/21 10:00 02/19/21 10:56 Dexamethasone 4 Mg/Ml Vial IV 02/26/21 10:01 8 mg Q24H DEISY Administration Famotidine 20 mg 02/18/21 10:00 02/19/21 10:51 Famotidine 20 Mg Tab PO 20 mg BID DEISY Administration Furosemide 40 mg 02/18/21 08:00 02/19/21 10:51 Furosemide 40 Mg/4 Ml Inj IV 40 mg 0800 DEISY Administration Gabapentin 400 mg 02/19/21 04:00 02/19/21 10:58 Gabapentin 400 Mg Cap PO 400 mg BID DEISY Administration Hydromorphone HCl 0.5 mg 02/17/21 23:58 Hydromorphone 1 Mg/1 Ml Inj IV Q3H PRN Pain , Severe (7-10) Ceftriaxone Sodium 2 gm in 100 mls @ 200 mls/hr 02/18/21 10:00 02/19/21 10:55 Rocephin/Ns 2 Gm/100 Ml IV 02/21/21 10:29 200 mls/hr Q24HR DEISY Administration Protocol REMDESIVIR 100 mg/ Sodium 250 mls @ 500 mls/hr 02/20/21 21:00 Chloride IV 02/23/21 21:29 Q24HR@2100 DEISY Ondansetron HCl 4 mg 02/17/21 23:58 Ondansetron 4 Mg/2 Ml Inj IV Q8H PRN Nausea And Vomiting Oxycodone/Acetaminophen 1 tab 02/17/21 23:58 Oxycodone /Acetaminophen 5-325mg Tab PO Q6H PRN Pain, Moderate (4-6) Potassium Chloride 20 meq 02/18/21 00:03 02/19/21 10:52 Potassium Chloride Er 20 Meq Tab PO 20 meq QDAY DEISY Administration Sertraline HCl 50 mg 02/19/21 10:00 02/19/21 10:52 Sertraline 50 Mg Tab PO 50 mg QDAY DEISY Administration Sodium Chloride 10 ml 02/18/21 10:00 02/19/21 11:00 Sodium Chloride 0.9% 10 Ml Flush Syringe IV 10 ml BID DEISY Administration Sodium Chloride 10 ml 02/17/21 23:58 Sodium Chloride 0.9% 10 Ml Flush Syringe IV PRN PRN LINE FLUSH Sodium Chloride 50 ml 02/19/21 04:30 02/19/21 05:36 Sodium Chloride 0.9% 50 Ml Ivpb IV 02/23/21 21:01 50 ml Q24HR@2100 DEISY Administration Zinc Sulfate 220 mg 02/19/21 10:00 02/19/21 10:52 Zinc Sulfate 220 Mg Cap PO 220 mg QDAY DEISY Administration
--- NOTE | 2021-02-19 12:02 | Electrocardiograph Report ---
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
--- NOTE | 2021-02-19 12:45 | Consultation ---
History of Present Illness Consult date: 02/19/21 Requesting physician: BAKARI MENDOZA Reason for consult: hypoxemia, other (COVID 19 pneumonia.) History of present illness: Patient admitted 2 days ago with shortness of breath, hypoxemia and acute respiratory failure, found to be COVID positive. Pulmonary consulted secondary to hypoxemia. On admission was on 40 and 100% HFNC along with nonrebreather, now just on HFNC at 30 and 100. Past History Past Medical History: arthritis, diabetes, hypertension, other (anxiety, VTE) Past Surgical History: Other (2 back surgeries, hip surgery, knee replacement) Medications and Allergies Allergies Allergy/AdvReac Type Severity Reaction Status Date / Time No Known Allergies Allergy Verified 02/19/21 14:28 Home Medications Medication Instructions Recorded Confirmed Last Taken Type amLODIPine [Norvasc] 10 mg PO DAILY 05/12/14 02/19/21 06/07/20 05:00 History Apixaban [Eliquis] 2.5 mg PO BID 05/17/20 02/19/21 06/03/20 09:00 History Acetaminophen/Codeine [Tylenol 1 tab PO Q6H PRN 02/19/21 02/19/21 Unknown History /Codeine # 3 tab] Ibuprofen [Motrin] 800 mg PO QDAY PRN 02/19/21 02/19/21 Unknown History Sertraline [Zoloft] 100 mg PO QDAY 02/19/21 02/19/21 Unknown History Active Meds: Active Medications Acetaminophen (Acetaminophen 325 Mg Tab) 650 mg PO Q4H PRN PRN Reason: Pain MILD(1-3)/Fever >100.5/BROWN Amlodipine Besylate (Amlodipine 10 Mg Tab) 10 mg PO DAILY [facility] Last Admin: 02/19/21 10:58 Dose: 10 mg Documented by: Apixaban (Apixaban 2.5 Mg Tab) 2.5 mg PO BID [facility] Last Admin: 02/19/21 10:59 Dose: 2.5 mg Documented by: Ascorbic Acid (Ascorbic Acid 500 Mg Tab) 1,000 mg PO BID [facility] Last Admin: 02/19/21 10:59 Dose: 1,000 mg Documented by: Azithromycin (Azithromycin 250 Mg Tab) 500 mg PO QDAY [facility] Stop: 02/21/21 10:01 Last Admin: 02/19/21 11:00 Dose: 500 mg Documented by: Cholecalciferol (Cholecalciferol (Vit D3) 5,000 Unit Tab) 5,000 unit PO DAILY [facility] Last Admin: 02/19/21 10:59 Dose: 5,000 unit Documented by: Dexamethasone (Dexamethasone 4 Mg/Ml Vial) 8 mg IV Q24H [facility] Stop: 02/26/21 10:01 Last Admin: 02/19/21 10:56 Dose: 8 mg Documented by: Famotidine (Famotidine 20 Mg Tab) 20 mg PO BID [facility] Last Admin: 02/19/21 10:51 Dose: 20 mg Documented by: Furosemide (Furosemide 40 Mg/4 Ml Inj) 40 mg IV 0800 [facility] Last Admin: 02/19/21 10:51 Dose: 40 mg Documented by: Gabapentin (Gabapentin 400 Mg Cap) 400 mg PO BID [facility] Last Admin: 02/19/21 10:58 Dose: 400 mg Documented by: Hydromorphone HCl (Hydromorphone 1 Mg/1 Ml Inj) 0.5 mg IV Q3H PRN PRN Reason: Pain , Severe (7-10) Ceftriaxone Sodium (Rocephin/Ns 2 Gm/100 Ml) 2 gm in 100 mls @ 200 mls/hr IV Q24HR [facility]; Protocol Stop: 02/21/21 10:29 Last Admin: 02/19/21 10:55 Dose: 200 mls/hr Documented by: REMDESIVIR 100 mg/ Sodium (Chloride) 250 mls @ 500 mls/hr IV Q24HR@2100 [facility] Stop: 02/23/21 21:29 Ondansetron HCl (Ondansetron 4 Mg/2 Ml Inj) 4 mg IV Q8H PRN PRN Reason: Nausea And Vomiting Oxycodone/Acetaminophen (Oxycodone /Acetaminophen 5-325mg Tab) 1 tab PO Q6H PRN PRN Reason: Pain, Moderate (4-6) Potassium Chloride (Potassium Chloride Er 20 Meq Tab) 20 meq PO QDAY [facility] Last Admin: 02/19/21 10:52 Dose: 20 meq Documented by: Sertraline HCl (Sertraline 50 Mg Tab) 50 mg PO QDAY [facility] Last Admin: 02/19/21 10:52 Dose: 50 mg Documented by: Sodium Chloride (Sodium Chloride 0.9% 10 Ml Flush Syringe) 10 ml IV BID [facility] Last Admin: 02/19/21 11:00 Dose: 10 ml Documented by: Sodium Chloride (Sodium Chloride 0.9% 10 Ml Flush Syringe) 10 ml IV PRN PRN PRN Reason: LINE FLUSH Sodium Chloride (Sodium Chloride 0.9% 50 Ml Ivpb) 50 ml IV Q24HR@2100 [facility] Stop: 02/23/21 21:01 Last Admin: 02/19/21 05:36 Dose: 50 ml Documented by: Zinc Sulfate (Zinc Sulfate 220 Mg Cap) 220 mg PO QDAY [facility] Last Admin: 02/19/21 10:52 Dose: 220 mg Documented by: Review of Systems All systems: negative Physical Examination Vital signs: Vital Signs Temp Pulse Resp BP Pulse Ox 97.2 F L 97 H 26 H 133/87 86 02/17/21 12:29 02/17/21 12:29 02/17/21 12:29 02/17/21 12:29 02/17/21 12:29 Results - Laboratory Findings CBC and BMP: 02/18/21 07:48 02/20/21 05:00 PT/INR, D-dimer PT 13.9 Sec. (12.2-14.9) 02/17/21 14:34 INR 0.96 (0.87-1.13) 02/17/21 14:34 D-Dimer > 85636 ng/mlDDU (0-234) H 02/19/21 08:43 Abnormal lab findings: Abnormal Labs 02/17/21 02/17/21 02/17/21 14:34 14:34 14:34 WBC 11.7 H Hct 44.9 H RDW 15.6 H Seg Neuts % (Manual) Lymphocytes % (Manual) 9.0 L Monocytes % (Manual) 12.0 H Seg Neutrophils # Man 8.2 H Lymphocytes # (Manual) 1.1 L Monocytes # (Manual) 1.4 H D-Dimer Sodium Potassium 3.5 L BUN 27 H Glucose 150 H Lactic Acid 2.90 H* AST C-Reactive Protein NT-Pro-B Natriuret Pep Albumin Urine WBC (Auto) Coronavirus (PCR) 02/17/21 02/18/21 02/18/21 14:34 07:48 07:48 WBC 12.0 H Hct RDW 15.4 H Seg Neuts % (Manual) 76.0 H Lymphocytes % (Manual) Monocytes % (Manual) Seg Neutrophils # Man 9.1 H Lymphocytes # (Manual) Monocytes # (Manual) D-Dimer Sodium Potassium BUN 36 H Glucose 133 H Lactic Acid AST 57 H C-Reactive Protein NT-Pro-B Natriuret Pep 1619 H Albumin 3.3 L Urine WBC (Auto) Coronavirus (PCR) 02/18/21 02/18/21 02/19/21 Unknown Unknown 07:32 WBC Hct RDW Seg Neuts % (Manual) Lymphocytes % (Manual) Monocytes % (Manual) Seg Neutrophils # Man Lymphocytes # (Manual) Monocytes # (Manual) D-Dimer Sodium 148 H D Potassium BUN 41 H Glucose 123 H Lactic Acid AST 57 H C-Reactive Protein NT-Pro-B Natriuret Pep Albumin 3.7 L Urine WBC (Auto) 7.0 H Coronavirus (PCR) Positive A 02/19/21 02/19/21 07:32 08:43 WBC Hct RDW Seg Neuts % (Manual) Lymphocytes % (Manual) Monocytes % (Manual) Seg Neutrophils # Man Lymphocytes # (Manual) Monocytes # (Manual) D-Dimer > 95668 H Sodium Potassium BUN Glucose Lactic Acid AST C-Reactive Protein 10.90 H NT-Pro-B Natriuret Pep Albumin Urine WBC (Auto) Coronavirus (PCR) - Diagnostic Findings Chest x-ray: image reviewed (bilateral alveolar filling, right >left) Assessment and Plan 61 y/o female with acute respiratory failure secondary to COVID 19 pneumonia. 1. self proning as tolerated during the day and prone at night while sleeping 2. Steroids and Remdesivir 3. Daily net negative volume state 4. Consider checking BNP and echo to make sure no edema on this film 5. Agree with empiric anticoagulation given elevated D-Dimer Guarded prognosis. Will continue to follow.
[2021-02-19] MEDS ORDERED: TOCILIZUMAB 600 MG in SODIUM CHLORIDE 0.9% 100 ML IV ONE (14:14)
--- NOTE | 2021-02-19 14:14 | Consultation ---
History of Present Illness - Reason for Consult Consult date: 02/19/21 - History of Present Illness 61-year-old female past medical history hypertension, diabetes, DVT presented to hospital complaining of shortness of breath, cough, weakness. This began 5 days prior to admission, she tested positive for Covid as an outpatient on Feb 10. She feels worse since that time. She is hypoxic on presentation. Afebrile since admission with a white count of 12. Covid positive. Normal renal function. Pending procalcitonin. Elevated laboratory markers. Elevated D-dimer. Currently on ceftriaxone, azithromycin, dexamethasone, Remdesivir. Currently requiring high flow nasal cannula. Imaging personally reviewed: Chest x-ray: Severe diffuse bilateral patchy pulmonary opacities. Review of systems: Deferred to reduce to the risk of transmission of COVID-19 Past History Past Medical History: diabetes, hypertension Past Surgical History: No surgical history Social history: no significant social history Family history: hypertension Medications and Allergies Allergies Allergy/AdvReac Type Severity Reaction Status Date / Time No Known Allergies Allergy Verified 02/17/21 12:33 Home Medications Medication Instructions Recorded Confirmed Last Taken Type amLODIPine [Norvasc] 10 mg PO DAILY 05/12/14 02/19/21 06/07/20 05:00 History Apixaban [Eliquis] 2.5 mg PO BID 05/17/20 02/19/21 06/03/20 09:00 History Acetaminophen/Codeine [Tylenol 1 tab PO Q6H PRN 02/19/21 02/19/21 Unknown H istory /Codeine # 3 tab] Ibuprofen [Motrin] 800 mg PO QDAY PRN 02/19/21 02/19/21 Unknown History Sertraline [Zoloft] 100 mg PO QDAY 02/19/21 02/19/21 Unknown History Active Meds: Active Medications Acetaminophen (Acetaminophen 325 Mg Tab) 650 mg PO Q4H PRN PRN Reason: Pain MILD(1-3)/Fever >100.5/BROWN Amlodipine Besylate (Amlodipine 10 Mg Tab) 10 mg PO DAILY [facility] Last Admin: 02/19/21 10:58 Dose: 10 mg Documented by: Apixaban (Apixaban 2.5 Mg Tab) 2.5 mg PO BID [facility] Last Admin: 02/19/21 10:59 Dose: 2.5 mg Documented by: Ascorbic Acid (Ascorbic Acid 500 Mg Tab) 1,000 mg PO BID [facility] Last Admin: 02/19/21 10:59 Dose: 1,000 mg Documented by: Azithromycin (Azithromycin 250 Mg Tab) 500 mg PO QDAY [facility] Stop: 02/21/21 10:01 Last Admin: 02/19/21 11:00 Dose: 500 mg Documented by: Cholecalciferol (Cholecalciferol (Vit D3) 5,000 Unit Tab) 5,000 unit PO DAILY [facility] Last Admin: 02/19/21 10:59 Dose: 5,000 unit Documented by: Dexamethasone (Dexamethasone 4 Mg/Ml Vial) 8 mg IV Q24H [facility] Stop: 02/26/21 10:01 Last Admin: 02/19/21 10:56 Dose: 8 mg Documented by: Famotidine (Famotidine 20 Mg Tab) 20 mg PO BID [facility] Last Admin: 02/19/21 10:51 Dose: 20 mg Documented by: Furosemide (Furosemide 40 Mg/4 Ml Inj) 40 mg IV 0800 [facility] Last Admin: 02/19/21 10:51 Dose: 40 mg Documented by: Gabapentin (Gabapentin 400 Mg Cap) 400 mg PO BID [facility] Last Admin: 02/19/21 10:58 Dose: 400 mg Documented by: Hydromorphone HCl (Hydromorphone 1 Mg/1 Ml Inj) 0.5 mg IV Q3H PRN PRN Reason: Pain , Severe (7-10) Ceftriaxone Sodium (Rocephin/Ns 2 Gm/100 Ml) 2 gm in 100 mls @ 200 mls/hr IV Q24HR [facility]; Protocol Stop: 02/21/21 10:29 Last Admin: 02/19/21 10:55 Dose: 200 mls/hr Documented by: REMDESIVIR 100 mg/ Sodium (Chloride) 250 mls @ 500 mls/hr IV Q24HR@2100 [facility] Stop: 02/23/21 21:29 Ondansetron HCl (Ondansetron 4 Mg/2 Ml Inj) 4 mg IV Q8H PRN PRN Reason: Nausea And Vomiting Oxycodone/Acetaminophen (Oxycodone /Acetaminophen 5-325mg Tab) 1 tab PO Q6H PRN PRN Reason: Pain, Moderate (4-6) Potassium Chloride (Potassium Chloride Er 20 Meq Tab) 20 meq PO QDAY [facility] Last Admin: 02/19/21 10:52 Dose: 20 meq Documented by: Sertraline HCl (Sertraline 50 Mg Tab) 50 mg PO QDAY [facility] Last Admin: 02/19/21 10:52 Dose: 50 mg Documented by: Sodium Chloride (Sodium Chloride 0.9% 10 Ml Flush Syringe) 10 ml IV BID [facility] Last Admin: 02/19/21 11:00 Dose: 10 ml Documented by: Sodium Chloride (Sodium Chloride 0.9% 10 Ml Flush Syringe) 10 ml IV PRN PRN PRN Reason: LINE FLUSH Sodium Chloride (Sodium Chloride 0.9% 50 Ml Ivpb) 50 ml IV Q24HR@2100 [facility] Stop: 02/23/21 21:01 Last Admin: 02/19/21 05:36 Dose: 50 ml Documented by: Zinc Sulfate (Zinc Sulfate 220 Mg Cap) 220 mg PO QDAY [facility] Last Admin: 02/19/21 10:52 Dose: 220 mg Documented by: Physical Examination - Physical Exam Narrative exam: Physical exam deferred to reduce risk of transmission of COVID-19. Please refer to primary team's note. - Constitutional Vitals: Vital Signs Temp Pulse Resp BP Pulse Ox 97.6 F 71 26 H 145/92 95 02/19/21 06:45 02/19/21 06:45 02/19/21 06:45 02/19/21 06:45 02/19/21 06:45 Temperature -Last 24 Hours Temperature 97.6 F Results - Labs CBC & Chem 7: 02/18/21 07:48 02/19/21 07:32 Labs: Abnormal lab results 02/18/21 02/19/21 02/19/21 Range/Units Unknown 07:32 07:32 D-Dimer (0-234) ng/mlDDU Sodium 148 H D (137-145) mmol/L BUN 41 H (7-17) mg/dL Glucose 123 H (65-100) mg/dL AST 57 H (5-40) units/L C-Reactive Protein 10.90 H (0.00-1.30) mg/dL Albumin 3.7 L (3.9-5) g/dL Coronavirus (PCR) Positive A (Negative) 02/19/21 Range/Units 08:43 D-Dimer > 84399 H (0-234) ng/mlDDU Sodium (137-145) mmol/L BUN (7-17) mg/dL Glucose (65-100) mg/dL AST (5-40) units/L C-Reactive Protein (0.00-1.30) mg/dL Albumin (3.9-5) g/dL Coronavirus (PCR) (Negative) Assessment and Plan Cultures: Blood culture no growth so far. A/P: 61 yo F PMHx HTn, Dm2 now with: #Severe COVID-19 pneumonia: Patient presented with a week of symptoms, chest x- ray with diffuse bilateral infiltrates, admission O2 sats decreased on room air. Inflammatory markers elevated #Acute hypoxemic respiratory failure: Likely secondary to COVID-19 infection. Currently on HFKS #Diabetes: tight glycemic control for best outcomes. Recommendations: -Dexamethasone 6 mg IV/PO daily for 10 days -Remdesivir 200 mg IV q day x 1 followed by 100 mg IV q day x 4 days -Obtain q48-72h inflammatory markers - ferritin, Ddimer, CRP, LDH -Continue ceftriaxone 2 gm IV qday and azithromycin 500 mg PO qday, if procalcitonin <0.25 ng/mL stop antibiotics -She is a candidate for Actemra based on CRp and O2 requirements. unfortunately we have not been getting procalcitonin results. -ordered Actemra once (afebrile, white count only mildly elevated in the setting of steroids) -Anticoagulation per hospital protocol -Proning as able Thank you for the consult, we will continue to follow. Braulio Crawfodr MD [facility], [place], [facility] ([facility]) O: [phone] F: [phone]
[2021-02-19] MEDS ORDERED: TOCILIZUMAB 648 MG in SODIUM CHLORIDE 0.9% 100 ML IV ONE (16:00)
[2021-02-20 06:44] LABS: Alanine Aminotransferase 37 units/L (7-56); Albumin 3.3 g/dL (3.9-5); Blood Urea Nitrogen 36 mg/dL (7-17); Calcium 8.4 mg/dL (8.4-10.2); Hemolysis Index 0
[2021-02-20 07:09] LABS: BUN/Creatinine Ratio 51
--- NOTE | 2021-02-20 11:01 | Progress Note ---
Assessment and Plan Assessment and plan: Patient is 61 years old female with history of hypertension, diabetes and DVT currently on Eliquis. Patient brought to the emergency room via EMS from home for evaluation of shortness of breath cough and generalized weakness for the last 5 days. Patient stated that she tested positive for COVID-19 on February 10 and since then she has not been feeling well. EMS stated that patient initial oxygen saturation was 75% on room air improved to 86% on a nonrebreather. Patient stated that her daughter also tested positive. 02/19/2020 Patient on 50% Ventimask Covid positive Continue steroids May DC antibiotics Respiratory assessment and treatment 02/19: Patient still hypoxic, encourage prone positioning, Pulmonary and ID consult. Will obtain CTA chest to evaluate for PE. Continue steroid therapy and oxygen therapy wean as tolerated. Continuous pulse oximeter. Plan discussed with the patient. 02/20: Patient seen and examined, remains on NRBM. awaiting CT CHEST WITH ANGIO Ordered yesterday. Encourage proning the patient says she was not proned yesterday discussed with nursing staff. Continue steroid therapy and remdesivir. Patient was seen by ID and as documented by ID"She is a candidate for Actemra based on CRp and O2 requirements. unfortunately we have not been getting procalcitonin results. -ordered Actemra once (afebrile, white count only mildly elevated in the setting of steroids)" Discussed plan of care with the nurse. Also called to updated the patients sister listed as NOK but got voice mail (1) Acute respiratory failure with hypoxia Current Visit: Yes Status: Acute Plan to address problem: Patient on Xarelto was on Ventimask Rule out Covid pneumonia Respiratory assessment and treatment Supplemental oxygen as necessary Patient is very hypoxic on room air around 76% Improved with oxygen supplementation (2) SIRS (systemic inflammatory response syndrome) Current Visit: Yes Status: Acute Plan to address problem: Clinical picture consistent with Sirs Markers not done (3) Multifocal pneumonia Current Visit: Yes Status: Acute Plan to address problem: IV antibiotics in the form of azithromycin and Rocephin (4)COVID-19 virus infection Current Visit: Yes Status: Acute Plan to address problem: Coronavirus PCR test in a.m. Patient started on remdesivir ID consult requested (5) Hypertension Current Visit: Yes Status: Chronic Qualifiers: Hypertension type: primary hypertension Qualified Code(s): I10 - Essential (primary) hypertension Plan to address problem: Continue antihypertensives (6) T2DM (type 2 diabetes mellitus) Current Visit: Yes Status: Chronic Qualifiers: Diabetes mellitus penitentiary insulin use: unspecified penitentiary insulin use status Plan to address problem: Continue Metformin and coverage Check hemoglobin A1c (7) Hypernatremia (8) DVT prophylaxis Current Visit: Yes Status: Acute History Interval history: Patient seen and examined she is on nonrebreather at this time. She denies any worsening shortness of breath but still at baseline short of Hospitalist Physical - Physical exam Narrative exam: General appearance: Present: mild distress, on NRBM this morning, well- nourished - EENT Eyes: PERRL, EOM intact ENT: hearing intact, clear oral mucosa Ears: bilateral: normal - Neck Neck: supple, normal ROM - Respiratory Respiratory effort: normal Respiratory: bilateral: CTA - Breasts Breasts: normal - Cardiovascular Heart rate: 78 Rhythm: regular Heart Sounds: Present: S1 & S2. Absent: gallop, rub Extremities: pulses intact, No edema, normal color, Full ROM - Gastrointestinal General gastrointestinal: Present: soft, non-tender, non-distended, normal bowel sounds - Genitourinary Female genitourinary: normal - Integumentary Integumentary: clear, warm, dry - Musculoskeletal Musculoskeletal: 1, strength equal bilaterally - Neurologic Neurologic: moves all extremities - Psychiatric Psychiatric: memory intact, appropriate mood/affect, intact judgment & insight - Constitutional Vitals: Temp Pulse Resp BP Pulse Ox 99.0 F 81 18 122/82 83 L 02/20/21 04:34 02/20/21 04:34 02/20/21 04:34 02/20/21 04:34 02/20/21 04:34 General appearance: Present: mild distress, well-nourished Results - Labs CBC & Chem 7: 02/18/21 07:48 02/20/21 05:00 Labs: Laboratory Last Values WBC 12.0 K/mm3 (4.5-11.0) H 02/18/21 07:48 RBC 4.76 M/mm3 (3.65-5.03) 02/18/21 07:48 Hgb 13.6 gm/dl (10.1-14.3) 02/18/21 07:48 Hct 42.6 % (30.3-42.9) 02/18/21 07:48 MCV 90 fl (79-97) 02/18/21 07:48 MCH 29 pg (28-32) 02/18/21 07:48 MCHC 32 % (30-34) 02/18/21 07:48 RDW 15.4 % (13.2-15.2) H 02/18/21 07:48 Plt Count 226 K/mm3 (140-440) 02/18/21 07:48 Add Manual Diff Complete 02/18/21 07:48 Total Counted 100 02/18/21 07:48 Seg Neuts % (Manual) 76.0 % (40.0-70.0) H 02/18/21 07:48 Lymphocytes % (Manual) 14.0 % (13.4-35.0) 02/18/21 07:48 Reactive Lymphs % (Man) 2.0 % 02/17/21 14:34 Monocytes % (Manual) 7.0 % (0.0-7.3) 02/18/21 07:48 Eosinophils % (Manual) 3.0 % (0.0-4.3) 02/17/21 14:34 Metamyelocytes % 4.0 % 02/17/21 14:34 Myelocytes % 2.0 % 02/18/21 07:48 Promyelocytes % 1.0 % 02/18/21 07:48 Nucleated RBC % Not Reportable 02/18/21 07:48 Seg Neutrophils # Man 9.1 K/mm3 (1.8-7.7) H 02/18/21 07:48 Band Neutrophils # 0.0 K/mm3 02/18/21 07:48 Lymphocytes # (Manual) 1.7 K/mm3 (1.2-5.4) 02/18/21 07:48 Abs React Lymphs (Man) 0.0 K/mm3 02/18/21 07:48 Monocytes # (Manual) 0.8 K/mm3 (0.0-0.8) 02/18/21 07:48 Eosinophils # (Manual) 0.0 K/mm3 (0.0-0.4) 02/18/21 07:48 Basophils # (Manual) 0.0 K/mm3 (0.0-0.1) 02/18/21 07:48 Metamyelocytes # 0.0 K/mm3 02/18/21 07:48 Myelocytes # 0.2 K/mm3 02/18/21 07:48 Promyelocytes # 0.1 K/mm3 02/18/21 07:48 Blast Cells # 0.0 K/mm3 02/18/21 07:48 WBC Morphology Not Reportable 02/18/21 07:48 Hypersegmented Neuts Not Reportable 02/18/21 07:48 Hyposegmented Neuts Not Reportable 02/18/21 07:48 Hypogranular Neuts Not Reportable 02/18/21 07:48 Smudge Cells Not Reportable 02/18/21 07:48 Toxic Granulation Not Reportable 02/18/21 07:48 Toxic Vacuolation Not Reportable 02/18/21 07:48 Dohle Bodies Not Reportable 02/18/21 07:48 Pelger-Huet Anomaly Not Reportable 02/18/21 07:48 Cindy Rods Not Reportable 02/18/21 07:48 Platelet Estimate Consistent w auto 02/18/21 07:48 Clumped Platelets Not Reportable 02/18/21 07:48 Plt Clumps, EDTA Not Reportable 02/18/21 07:48 Large Platelets Not Reportable 02/18/21 07:48 Giant Platelets Not Reportable 02/18/21 07:48 Platelet Satelliting Not Reportable 02/18/21 07:48 Plt Morphology Comment Not Reportable 02/18/21 07:48 RBC Morphology Normal 02/18/21 07:48 Dimorphic RBCs Not Reportable 02/18/21 07:48 Polychromasia Not Reportable 02/18/21 07:48 Hypochromasia Not Reportable 02/18/21 07:48 Poikilocytosis Not Reportable 02/18/21 07:48 Anisocytosis Not Reportable 02/18/21 07:48 Microcytosis Not Reportable 02/18/21 07:48 Macrocytosis Not Reportable 02/18/21 07:48 Spherocytes Not Reportable 02/18/21 07:48 Pappenheimer Bodies Not Reportable 02/18/21 07:48 Sickle Cells Not Reportable 02/18/21 07:48 Target Cells Not Reportable 02/18/21 07:48 Tear Drop Cells Not Reportable 02/18/21 07:48 Ovalocytes Not Reportable 02/18/21 07:48 Helmet Cells Not Reportable 02/18/21 07:48 Sumner-Lenwood Bodies Not Reportable 02/18/21 07:48 Vidalia Rings Not Reportable 02/18/21 07:48 Alicia Cells Not Reportable 02/18/21 07:48 Bite Cells Not Reportable 02/18/21 07:48 Crenated Cell Not Reportable 02/18/21 07:48 Elliptocytes Not Reportable 02/18/21 07:48 Acanthocytes (Spur) Not Reportable 02/18/21 07:48 Rouleaux Not Reportable 02/18/21 07:48 Hemoglobin C Crystals Not Reportable 02/18/21 07:48 Schistocytes Not Reportable 02/18/21 07:48 Malaria parasites Not Reportable 02/18/21 07:48 Pedro Pablo Bodies Not Reportable 02/18/21 07:48 Hem Pathologist Commnt No 02/18/21 07:48 PT 13.9 Sec. (12.2-14.9) 02/17/21 14:34 INR 0.96 (0.87-1.13) 02/17/21 14:34 APTT 26.4 Sec. (24.2-36.6) 02/17/21 14:34 D-Dimer > 35199 ng/mlDDU (0-234) H 02/19/21 08:43 Sodium 147 mmol/L (137-145) H 02/20/21 05:00 Potassium 3.8 mmol/L (3.6-5.0) 02/20/21 05:00 Chloride 107.6 mmol/L (98-107) H 02/20/21 05:00 Carbon Dioxide 25 mmol/L (22-30) 02/20/21 05:00 Anion Gap 18 mmol/L 02/20/21 05:00 BUN 36 mg/dL (7-17) H 02/20/21 05:00 Creatinine 0.7 mg/dL (0.6-1.2) 02/20/21 05:00 Estimated GFR > 60 ml/min 02/20/21 05:00 BUN/Creatinine Ratio 51 % 02/20/21 05:00 Glucose 97 mg/dL (65-100) 02/20/21 05:00 Lactic Acid 1.60 mmol/L (0.7-2.0) 02/17/21 18:39 Calcium 8.4 mg/dL (8.4-10.2) 02/20/21 05:00 Total Bilirubin 0.40 mg/dL (0.1-1.2) 02/20/21 05:00 Direct Bilirubin < 0.2 mg/dL (0-0.2) 02/17/21 14:34 Indirect Bilirubin 0.1 mg/dL 02/17/21 14:34 AST 37 units/L (5-40) 02/20/21 05:00 ALT 37 units/L (7-56) 02/20/21 05:00 Alkaline Phosphatase 62 units/L (35-129) 02/20/21 05:00 C-Reactive Protein 10.90 mg/dL (0.00-1.30) H 02/19/21 07:32 NT-Pro-B Natriuret Pep 1619 pg/mL (0-900) H 02/17/21 14:34 Total Protein 7.1 g/dL (6.3-8.2) 02/20/21 05:00 Albumin 3.3 g/dL (3.9-5) L 02/20/21 05:00 Albumin/Globulin Ratio 0.9 % 02/20/21 05:00 Urine Color Cassandra (Yellow) 02/18/21 Unknown Urine Turbidity Cloudy (Clear) 02/18/21 Unknown Urine pH 5.0 (5.0-7.0) 02/18/21 Unknown Ur Specific [place] 1.027 (1.003-1.030) 02/18/21 Unknown Urine Protein 100 mg/dl mg/dL (Negative) 02/18/21 Unknown Urine Glucose (UA) Neg mg/dL (Negative) 02/18/21 Unknown Urine Ketones Neg mg/dL (Negative) 02/18/21 Unknown Urine Blood Neg (Negative) 02/18/21 Unknown Urine Nitrite Neg (Negative) 02/18/21 Unknown Urine Bilirubin Neg (Negative) 02/18/21 Unknown Urine Urobilinogen < 2.0 mg/dL (<2.0) 02/18/21 Unknown Ur Leukocyte Esterase Neg (Negative) 02/18/21 Unknown Urine WBC (Auto) 7.0 /HPF (0.0-6.0) H 02/18/21 Unknown Urine RBC (Auto) 4.0 /HPF (0.0-6.0) 02/18/21 Unknown U Epithel Cells (Auto) 3.0 /HPF (0-13.0) 02/18/21 Unknown Urine Mucus 2+ /HPF 02/18/21 Unknown Coronavirus (PCR) Positive (Negative) A 02/18/21 Unknown Microbiology: Microbiology 02/17/21 14:34 Peripheral/Venous Blood Culture - Preliminary NO GROWTH AFTER 48 HOURS 02/17/21 14:34 Peripheral/Venous Blood Culture - Preliminary NO GROWTH AFTER 48 HOURS Active Medications - Current Medications Current Medications: Generic Name Dose Route Start Last Admin Trade Name Freq PRN Reason Stop Dose Admin Acetaminophen 650 mg 02/17/21 23:58 Acetaminophen 325 Mg Tab PO Q4H PRN Pain MILD(1-3)/Fever >100.5/BROWN Amlodipine Besylate 10 mg 02/19/21 10:00 02/19/21 10:58 Amlodipine 10 Mg Tab PO 10 mg DAILY [facility] Administration Apixaban 2.5 mg 02/19/21 03:30 02/19/21 22:07 Apixaban 2.5 Mg Tab PO 2.5 mg BID [facility] Administration Ascorbic Acid 1,000 mg 02/19/21 10:00 02/19/21 22:06 Ascorbic Acid 500 Mg Tab PO 1,000 mg BID [facility] Administration Azithromycin 500 mg 02/18/21 10:00 02/19/21 11:00 Azithromycin 250 Mg Tab PO 02/21/21 10:01 500 mg QDAY [facility] Administration Cholecalciferol 5,000 unit 02/19/21 10:00 02/19/21 10:59 Cholecalciferol (Vit D3) 5,000 Unit Tab PO 5,000 unit DAILY [facility] Administration Dexamethasone 8 mg 02/18/21 10:00 02/19/21 10:56 Dexamethasone 4 Mg/Ml Vial IV 02/26/21 10:01 8 mg Q24H [facility] Administration Famotidine 20 mg 02/18/21 10:00 02/19/21 22:07 Famotidine 20 Mg Tab PO 20 mg BID [facility] Administration Furosemide 40 mg 02/18/21 08:00 02/19/21 10:51 Furosemide 40 Mg/4 Ml Inj IV 40 mg 0800 [facility] Administration Gabapentin 400 mg 02/19/21 04:00 02/19/21 22:07 Gabapentin 400 Mg Cap PO 400 mg BID [facility] Administration Hydromorphone HCl 0.5 mg 02/17/21 23:58 Hydromorphone 1 Mg/1 Ml Inj IV Q3H PRN Pain , Severe (7-10) Ceftriaxone Sodium 2 gm in 100 mls @ 200 mls/hr 02/18/21 10:00 02/19/21 20:58 Rocephin/Ns 2 Gm/100 Ml IV 02/21/21 10:29 Infused Q24HR [facility] Infusion Protocol REMDESIVIR 100 mg/ Sodium 250 mls @ 500 mls/hr 02/20/21 21:00 Chloride IV 02/23/21 21:29 Q24HR@2100 [facility] Ondansetron HCl 4 mg 02/17/21 23:58 Ondansetron 4 Mg/2 Ml Inj IV Q8H PRN Nausea And Vomiting Oxycodone/Acetaminophen 1 tab 02/17/21 23:58 Oxycodone /Acetaminophen 5-325mg Tab PO Q6H PRN Pain, Moderate (4-6) Potassium Chloride 20 meq 02/18/21 00:03 02/19/21 10:52 Potassium Chloride Er 20 Meq Tab PO 20 meq QDAY [facility] Administration Sertraline HCl 50 mg 02/19/21 10:00 02/19/21 10:52 Sertraline 50 Mg Tab PO 50 mg QDAY [facility] Administration Sodium Chloride 10 ml 02/18/21 10:00 02/19/21 22:07 Sodium Chloride 0.9% 10 Ml Flush Syringe IV 10 ml BID [facility] Administration Sodium Chloride 10 ml 02/17/21 23:58 Sodium Chloride 0.9% 10 Ml Flush Syringe IV PRN PRN LINE FLUSH Sodium Chloride 50 ml 02/19/21 04:30 02/19/21 05:36 Sodium Chloride 0.9% 50 Ml Ivpb IV 02/23/21 21:01 50 ml Q24HR@2100 [facility] Administration Zinc Sulfate 220 mg 02/19/21 10:00 02/19/21 10:52 Zinc Sulfate 220 Mg Cap PO 220 mg QDAY [facility] Administration
[2021-02-20] MEDS: cefTRIAXone/NS 2 GM/100 ML 2 GM/100 ML BAG IV SCH (12:15)
[2021-02-20] MEDS: ASCORBIC ACID 500 MG TAB PO SCH ×2 (12:16→22:44)
[2021-02-20] MEDS: FUROSEMIDE 40 MG/4 ML INJ IV SCH (12:16)
[2021-02-20] MEDS: GABAPENTIN 400 MG CAP PO SCH ×2 (12:16→22:45)
[2021-02-20] MEDS: AZITHROMYCIN 250 MG TAB PO SCH (12:16)
[2021-02-20] MEDS: POTASSIUM CHLORIDE ER 20 MEQ TAB PO SCH (12:16)
[2021-02-20] MEDS: APIXABAN 2.5 MG TAB PO SCH (12:16)
[2021-02-20] MEDS: dexAMETHasone 4 MG/ML VIAL IV SCH (12:17)
[2021-02-20] MEDS: amLODIPine 10 MG TAB PO SCH (12:17)
[2021-02-20] MEDS: ZINC SULFATE 220 MG CAP PO SCH (12:17)
[2021-02-20] MEDS: CHOLECALCIFEROL (VIT D3) 5,000 UNIT TAB PO SCH (12:17)
[2021-02-20] MEDS: SERTRALINE 50 MG TAB PO SCH (12:17)
--- NOTE | 2021-02-20 15:24 | Progress Note ---
Assessment and Plan 61 y/o female with acute respiratory failure secondary to COVID 19 pneumonia. 02/20/21: Follow up CTA results. Will send BNP. Continue steroids and Remdesivir. Guarded prognosis. Prone if able, very pertinent to do this. 1. self proning as tolerated during the day and prone at night while sleeping 2. Steroids and Remdesivir 3. Daily net negative volume state 4. Consider checking BNP and echo to make sure no edema on this film 5. Agree with empiric anticoagulation given elevated D-Dimer Guarded prognosis. Will continue to follow. Subjective Date of service: 02/20/21 Principal diagnosis: COVID pneumonia Interval history: CTA pending, ordered by IMS on yesterday. Objective Vital Signs - 12hr 02/20/21 02/20/21 02/20/21 04:34 12:00 14:29 Temperature 99.0 F Pulse Rate 81 Respiratory 18 Rate Blood Pressure 122/82 O2 Sat by Pulse 83 L 84 93 Oximetry CBC and BMP: 02/18/21 07:48 02/20/21 05:00 ABG, PT/INR, D-dimer: PT/INR, D-dimer PT 13.9 Sec. (12.2-14.9) 02/17/21 14:34 INR 0.96 (0.87-1.13) 02/17/21 14:34 D-Dimer > 11050 ng/mlDDU (0-234) H 02/19/21 08:43 Abnormal lab findings: Abnormal Labs 02/17/21 02/17/21 02/17/21 14:34 14:34 14:34 WBC 11.7 H Hct 44.9 H RDW 15.6 H Seg Neuts % (Manual) Lymphocytes % (Manual) 9.0 L Monocytes % (Manual) 12.0 H Seg Neutrophils # Man 8.2 H Lymphocytes # (Manual) 1.1 L Monocytes # (Manual) 1.4 H D-Dimer Sodium Potassium 3.5 L Chloride BUN 27 H Glucose 150 H Lactic Acid 2.90 H* AST C-Reactive Protein NT-Pro-B Natriuret Pep Albumin Urine WBC (Auto) Coronavirus (PCR) 02/17/21 02/18/21 02/18/21 14:34 07:48 07:48 WBC 12.0 H Hct RDW 15.4 H Seg Neuts % (Manual) 76.0 H Lymphocytes % (Manual) Monocytes % (Manual) Seg Neutrophils # Man 9.1 H Lymphocytes # (Manual) Monocytes # (Manual) D-Dimer Sodium Potassium Chloride BUN 36 H Glucose 133 H Lactic Acid AST 57 H C-Reactive Protein NT-Pro-B Natriuret Pep 1619 H Albumin 3.3 L Urine WBC (Auto) Coronavirus (PCR) 02/18/21 02/18/21 02/19/21 Unknown Unknown 07:32 WBC Hct RDW Seg Neuts % (Manual) Lymphocytes % (Manual) Monocytes % (Manual) Seg Neutrophils # Man Lymphocytes # (Manual) Monocytes # (Manual) D-Dimer Sodium 148 H D Potassium Chloride BUN 41 H Glucose 123 H Lactic Acid AST 57 H C-Reactive Protein NT-Pro-B Natriuret Pep Albumin 3.7 L Urine WBC (Auto) 7.0 H Coronavirus (PCR) Positive A 02/19/21 02/19/21 02/20/21 07:32 08:43 05:00 WBC Hct RDW Seg Neuts % (Manual) Lymphocytes % (Manual) Monocytes % (Manual) Seg Neutrophils # Man Lymphocytes # (Manual) Monocytes # (Manual) D-Dimer > 42973 H Sodium 147 H Potassium Chloride 107.6 H BUN 36 H Glucose Lactic Acid AST C-Reactive Protein 10.90 H NT-Pro-B Natriuret Pep Albumin 3.3 L Urine WBC (Auto) Coronavirus (PCR)
--- NOTE | 2021-02-20 15:25 | Progress Note ---
Assessment and Plan Cultures: Blood culture no growth so far. A/P: 61 yo F PMHx HTn, Dm2 now with: #Severe COVID-19 pneumonia: Patient presented with a week of symptoms, chest x- ray with diffuse bilateral infiltrates, admission O2 sats decreased on room air. Inflammatory markers elevated #Acute hypoxemic respiratory failure: Likely secondary to COVID-19 infection. Currently on HFNC #Diabetes: tight glycemic control for best outcomes. Recommendations: -Dexamethasone 6 mg IV/PO daily for 10 days -Remdesivir 200 mg IV q day x 1 followed by 100 mg IV q day x 4 days -Obtain q48-72h inflammatory markers - ferritin, Ddimer, CRP, LDH -Continue ceftriaxone 2 gm IV qday and azithromycin 500 mg PO qday, if procalcitonin <0.25 ng/mL stop antibiotics. Otherwise complete 5 days. -Patient was not administered Actemra dose I prescribed, and unable to source a second dose. -Anticoagulation per hospital protocol -Proning as able Thank you for the consult, we will continue to follow. Braulio Crawford MD [facility] ([facility] O: [phone] F: [phone] Subjective Date of service: 02/20/21 Principal diagnosis: COVID pneumonia Interval history: Afebrile, no acute change. Discussed with pharmacy the lower dose of Actemra was documented as given, it was found in the room this morning and not administered. Unable to get a second dose due to supply orders. Remains on high flow nasal cannula. Objective - Exam Narrative Exam: Physical exam deferred to reduce risk of transmission of COVID-19. Please refer to primary team's note. - Constitutional Vitals: Vital Signs Temp Pulse Resp BP Pulse Ox 99.0 F 81 18 122/82 93 02/20/21 04:34 02/20/21 04:34 02/20/21 04:34 02/20/21 04:34 02/20/21 14:29 Temperature -Last 24 Hours Temperature 99.0 F Temperature 97.9 F - Labs CBC & Chem 7: 02/18/21 07:48 02/20/21 05:00 Labs: Abnormal lab results 02/20/21 Range/Units 05:00 Sodium 147 H (137-145) mmol/L Chloride 107.6 H (98-107) mmol/L BUN 36 H (7-17) mg/dL Albumin 3.3 L (3.9-5) g/dL
[2021-02-20] MEDS: FAMOTIDINE 20 MG TAB PO SCH ×2 (16:44→22:44)
[2021-02-20 18:59] LABS: ABG Base Excess 2.6 mmol/L (-2.0-3.0); ABG HCO3 26.6 mmol/L (20.0-26.0); ABG Methemoglobin 0.3 % (0.0-1.5); ABG Oxygen Saturation 88.3 % (95.0-99.0); ABG PCO2 38.9 mm Hg; ABG PH 7.453 pH Units (7.350-7.450)
[2021-02-20] MEDS: REMDESIVIR 100 MG in SODIUM CHLORIDE 0.9% 250ML 250 ML IV SCH (22:44)
[2021-02-20] MEDS: SODIUM CHLORIDE 0.9% 50 ML IVPB IV SCH (22:44)
[2021-02-20] MEDS: APIXABAN 5 MG TAB PO SCH (22:45)
[2021-02-20] MEDS: oxyCODONE /ACETAMINOPHEN 5-325MG TAB PO PRN (22:45)
[2021-02-21 05:09] LABS: Hematocrit 40.9 % (30.3-42.9); Hemoglobin 12.9 gm/dl (10.1-14.3); Mean Corpuscular HGB Conc 32 % (30-34); Mean Corpuscular Volume 90 fl (79-97); Platelet Count 153 K/mm3 (140-440); Red Blood Count 4.53 M/mm3 (3.65-5.03); Red Cell Distribution Width 15.2 % (13.2-15.2)
[2021-02-21 05:32] LABS: Alanine Aminotransferase 32 units/L (7-56); Albumin 3.4 g/dL (3.9-5); Blood Urea Nitrogen 26 mg/dL (7-17); Calcium 8.8 mg/dL (8.4-10.2); Hemolysis Index 8
[2021-02-21 05:45] LABS: BUN/Creatinine Ratio 37
[2021-02-21] MEDS ORDERED: LORazepam 2 MG/ML VIAL IV ONE (10:15)
--- NOTE | 2021-02-21 10:36 | Progress Note ---
Assessment and Plan Cultures: Blood culture no growth so far. A/P: 61 yo F PMHx HTn, Dm2 now with: #Severe COVID-19 pneumonia: Patient presented with a week of symptoms, chest x- ray with diffuse bilateral infiltrates, admission O2 sats decreased on room air. Inflammatory markers elevated #Acute hypoxemic respiratory failure: Likely secondary to COVID-19 infection. Currently on HFNC #Diabetes: tight glycemic control for best outcomes. Recommendations: -Dexamethasone 6 mg IV/PO daily for 10 days -Remdesivir x5 days -Obtain q48-72h inflammatory markers - ferritin, Ddimer, CRP, LDH -Completed 5 days empiric antibiotics. -Patient was not administered Actemra dose I prescribed, and unable to source a second dose. -She is pending CT given SOB, leukocytosis and elevated D-dimer. Too unstable to go down overnight. -Check dopplers at bedside in the meantime. -Anticoagulation per hospital protocol -Proning as able Thank you for the consult, we will continue to follow. Braulio Crawford MD [facility] ([facility] O: [phone] F: [phone] Subjective Date of service: 02/21/21 Principal diagnosis: COVID pneumonia Interval history: Afebrile, white count increasing. On overnight oxygen. Objective - Exam Narrative Exam: Physical exam deferred to reduce risk of transmission of COVID-19. Please refer to primary team's note. - Constitutional Vitals: Vital Signs Temp Pulse Resp BP Pulse Ox 98.0 F 70 38 H 122/77 92 02/20/21 21:46 02/21/21 02:14 02/21/21 02:14 02/20/21 21:46 02/21/21 10:14 Temperature -Last 24 Hours Temperature 98.0 F Temperature 98.2 F Temperature 98.5 F - Labs CBC & Chem 7: 02/21/21 04:44 02/21/21 04:44 Labs: Abnormal lab results 02/20/21 02/21/21 02/21/21 Range/Units 18:46 04:44 04:44 WBC 16.7 H (4.5-11.0) K/mm3 ABG pH 7.453 H (7.350-7.450) pH Units ABG pO2 55.0 L (80.0-90.0) mm Hg ABG HCO3 26.6 H (20.0-26.0) mmol/L ABG O2 Saturation 88.3 L (95.0-99.0) % Oxyhemoglobin 86.8 L (95.0-99.0) % BUN 26 H (7-17) mg/dL Glucose 111 H (65-100) mg/dL Albumin 3.4 L (3.9-5) g/dL
--- NOTE | 2021-02-21 11:26 | Progress Note ---
Assessment and Plan 61 y/o female with acute respiratory failure secondary to COVID 19 pneumonia. 02/21/21: BNP normal. Still would attempt to achieve net negative fluid balance daily. Continue Remdesivir and steroids. Prone if patient willing. Follow up CTA results. Discussed with IMS, may change anticoagulation but awaiting official ready on CTA. Guareded prognosis. 02/20/21: Follow up CTA results. Will send BNP. Continue steroids and Remdesivir. Guarded prognosis. Prone if able, very pertinent to do this. 1. self proning as tolerated during the day and prone at night while sleeping 2. Steroids and Remdesivir 3. Daily net negative volume state 4. Consider checking BNP and echo to make sure no edema on this film 5. Agree with empiric anticoagulation given elevated D-Dimer Guarded prognosis. Will continue to follow. Subjective Date of service: 02/21/21 Principal diagnosis: COVID pneumonia Interval history: Patient with increasing oxygen requirement. Had CTA done which I think is positive for PE but awaiting official read. Finally wore Bipap last night. Objective Vital Signs - 12hr 02/21/21 02/21/21 02:14 10:14 Pulse Rate 70 Respiratory 38 H Rate O2 Sat by Pulse 94 92 Oximetry CBC and BMP: 02/21/21 04:44 02/21/21 04:44 ABG, PT/INR, D-dimer: ABG ABG pH 7.453 pH Units (7.350-7.450) H 02/20/21 18:46 ABG pCO2 38.9 mm Hg 02/20/21 18:46 ABG pO2 55.0 mm Hg (80.0-90.0) L 02/20/21 18:46 ABG O2 Saturation 88.3 % (95.0-99.0) L 02/20/21 18:46 PT/INR, D-dimer PT 13.9 Sec. (12.2-14.9) 02/17/21 14:34 INR 0.96 (0.87-1.13) 02/17/21 14:34 D-Dimer > 93276 ng/mlDDU (0-234) H 02/19/21 08:43 Abnormal lab findings: Abnormal Labs 02/17/21 02/17/21 02/17/21 14:34 14:34 14:34 WBC 11.7 H Hct 44.9 H RDW 15.6 H Seg Neuts % (Manual) Lymphocytes % (Manual) 9.0 L Monocytes % (Manual) 12.0 H Seg Neutrophils # Man 8.2 H Lymphocytes # (Manual) 1.1 L Monocytes # (Manual) 1.4 H D-Dimer ABG pH ABG pO2 ABG HCO3 ABG O2 Saturation Oxyhemoglobin Sodium Potassium 3.5 L Chloride BUN 27 H Glucose 150 H Lactic Acid 2.90 H* AST C-Reactive Protein NT-Pro-B Natriuret Pep Albumin Urine WBC (Auto) Coronavirus (PCR) 02/17/21 02/18/21 02/18/21 14:34 07:48 07:48 WBC 12.0 H Hct RDW 15.4 H Seg Neuts % (Manual) 76.0 H Lymphocytes % (Manual) Monocytes % (Manual) Seg Neutrophils # Man 9.1 H Lymphocytes # (Manual) Monocytes # (Manual) D-Dimer ABG pH ABG pO2 ABG HCO3 ABG O2 Saturation Oxyhemoglobin Sodium Potassium Chloride BUN 36 H Glucose 133 H Lactic Acid AST 57 H C-Reactive Protein NT-Pro-B Natriuret Pep 1619 H Albumin 3.3 L Urine WBC (Auto) Coronavirus (PCR) 02/18/21 02/18/21 02/19/21 Unknown Unknown 07:32 WBC Hct RDW Seg Neuts % (Manual) Lymphocytes % (Manual) Monocytes % (Manual) Seg Neutrophils # Man Lymphocytes # (Manual) Monocytes # (Manual) D-Dimer ABG pH ABG pO2 ABG HCO3 ABG O2 Saturation Oxyhemoglobin Sodium 148 H D Potassium Chloride BUN 41 H Glucose 123 H Lactic Acid AST 57 H C-Reactive Protein NT-Pro-B Natriuret Pep Albumin 3.7 L Urine WBC (Auto) 7.0 H Coronavirus (PCR) Positive A 02/19/21 02/19/21 02/20/21 07:32 08:43 05:00 WBC Hct RDW Seg Neuts % (Manual) Lymphocytes % (Manual) Monocytes % (Manual) Seg Neutrophils # Man Lymphocytes # (Manual) Monocytes # (Manual) D-Dimer > 92115 H ABG pH ABG pO2 ABG HCO3 ABG O2 Saturation Oxyhemoglobin Sodium 147 H Potassium Chloride 107.6 H BUN 36 H Glucose Lactic Acid AST C-Reactive Protein 10.90 H NT-Pro-B Natriuret Pep Albumin 3.3 L Urine WBC (Auto) Coronavirus (PCR) 02/20/21 02/21/21 02/21/21 18:46 04:44 04:44 WBC 16.7 H Hct RDW Seg Neuts % (Manual) Lymphocytes % (Manual) Monocytes % (Manual) Seg Neutrophils # Man Lymphocytes # (Manual) Monocytes # (Manual) D-Dimer ABG pH 7.453 H ABG pO2 55.0 L ABG HCO3 26.6 H ABG O2 Saturation 88.3 L Oxyhemoglobin 86.8 L Sodium Potassium Chloride BUN 26 H Glucose 111 H Lactic Acid AST C-Reactive Protein NT-Pro-B Natriuret Pep Albumin 3.4 L Urine WBC (Auto) Coronavirus (PCR)
--- NOTE | 2021-02-21 11:35 | Cat Scan Report ---
CTA chest with contrast INDICATION : Hypoxic, respiratory failure OMNI 350 100 ML. TECHNIQUE: Axial imaging performed through the chest, with contrast bolus timing set to maximize opa cification of the pulmonary arteries. 3-plane MIP reformatted images were obtained. All CT scans at this location are performed using CT dose reduction for ALARA by means of automated exposure control. 100 mL of intravenous contrast administered. COMPARISON: CTA chest from 05/02/2014 FINDINGS: Bolus/PTE: Contrast bolus timing is adequate. No filling defect is present to suggest PTE. Mediastinum: Heart and great vessels appear normal. There are several shoddy mediastinal lymph node s. Lungs: Moderate diffuse patchy interstitial and groundglass airspace disease is present with mild bi basilar consolidation. No effusion. Upper abdomen: Limited imaging of the upper abdomen shows nothing acute. Bones: Degenerative changes in the spine with nothing acute. IMPRESSION: 1. Negative for PTE. 2. Pulmonary findings as above could be seen with interstitial edema and/or an atypical etiology such as viral pneumonia. Signer Name: Juanito Her MD Signed: 02/21/2021 11:30 AM Workstation Name: [id number]
--- NOTE | 2021-02-21 13:19 | Vascular Lab Report ---
DUPLEX DOPPLER LOWER EXTREMITY VEINS, BILATERAL INDICATION: exam for clots. TECHNIQUE: Duplex doppler imaging was performed through the veins of both lower extremities using ve nous compression and other maneuvers. COMPARISON: 07/20/2020. FINDINGS: Right Common femoral vein: Negative. Right Superficial femoral vein: Negative. Right Popliteal vein: Negative. Right Calf veins: Acute appearing occlusive DVT is identified in the posterior tibial vein. Left Common femoral vein: Negative. Left Superficial femoral vein: Negative. Left Popliteal vein: Negative. Left Calf veins: Negative. Additional findings: None. IMPRESSION: Positive for acute appearing DVT in the right posterior tibial vein. The patient's nurse, kathy Vogel s informed of these findings at 1215 hours by the technologist. Signer Name: Willie Garcia Jr, MD Signed: 02/21/2021 1:15 PM Workstation Name: [id number]
--- NOTE | 2021-02-21 13:42 | Progress Note ---
Assessment and Plan Assessment and plan: Patient is 61 years old female with history of hypertension, diabetes and DVT currently on Eliquis. Patient brought to the emergency room via EMS from home for evaluation of shortness of breath cough and generalized weakness for the last 5 days. Patient stated that she tested positive for COVID-19 on February 10 and since then she has not been feeling well. EMS stated that patient initial oxygen saturation was 75% on room air improved to 86% on a nonrebreather. Patient stated that her daughter also tested positive. 02/19/2020 Patient on 50% Ventimask Covid positive Continue steroids May DC antibiotics Respiratory assessment and treatment 02/19: Patient still hypoxic, encourage prone positioning, Pulmonary and ID consult. Will obtain CTA chest to evaluate for PE. Continue steroid therapy and oxygen therapy wean as tolerated. Continuous pulse oximeter. Plan discussed with the patient. 02/20: Patient seen and examined, remains on NRBM. awaiting CT CHEST WITH ANGIO Ordered yesterday. Encourage proning the patient says she was not proned yesterday discussed with nursing staff. Continue steroid therapy and remdesivir. Patient was seen by ID and as documented by ID"She is a candidate for Actemra based on CRp and O2 requirements. unfortunately we have not been getting procalcitonin results. -ordered Actemra once (afebrile, white count only mildly elevated in the setting of steroids)" Discussed plan of care with the nurse. Also called to updated the patients sister listed as NOK but got voice mail 02/21: Continue steroids, remdesivir, patient received 1 dose of Actemra but unable to get the second dose due to availability. CTA showed dense consolidation but no effusion and no pulmonary embolism patient does have a lower extremity DVT. Eliquis continues at full dose of 5 mg twice daily we will continue to monitor closely. Prognosis is guarded counseling for compliance for 15 minutes. (1) Acute respiratory failure with hypoxia Current Visit: Yes Status: Acute Plan to address problem: Patient on Xarelto was on Ventimask Rule out Covid pneumonia Respiratory assessment and treatment Supplemental oxygen as necessary Patient was very hypoxic on room air around 76% Improved with oxygen supplementation (2) SIRS (systemic inflammatory response syndrome) Current Visit: Yes Status: Acute Plan to address problem: Clinical picture consistent with [place] not done (3) Multifocal pneumonia Current Visit: Yes Status: Acute Plan to address problem: IV antibiotics in the form of azithromycin and Rocephin (4)COVID-19 virus infection Current Visit: Yes Status: Acute Plan to address problem: Coronavirus PCR test in a.m. 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 She denies any worsening shortness of breath but still at baseline short of breath. However this morning she had taken off her BiPAP and was upset I did discuss with her that she is significantly hypoxic without her oxygen she verbalized understanding but her compliance continues to concern me. Hospitalist Physical - Physical exam Narrative exam: General appearance: Present: mild distress, on NRBM BiPAP this morning changed to nonrebreather patient 93% well-nourished - EENT Eyes: PERRL, EOM intact ENT: hearing intact, clear oral mucosa Ears: bilateral: normal - Neck Neck: supple, normal ROM - Respiratory Respiratory effort: normal Respiratory: bilateral: CTA - Breasts Breasts: normal - Cardiovascular Heart rate: 78 Rhythm: regular Heart Sounds: Present: S1 & S2. Absent: gallop, rub Extremities: pulses intact, No edema, normal color, Full ROM - Gastrointestinal General gastrointestinal: Present: soft, non-tender, non-distended, normal bowel sounds - Genitourinary Female genitourinary: normal - Integumentary Integumentary: clear, warm, dry - Musculoskeletal Musculoskeletal: 1, strength equal bilaterally - Neurologic Neurologic: moves all extremities - Psychiatric Psychiatric: memory intact, appropriate mood/affect, intact judgment & insight - Constitutional Vitals: Temp Pulse Resp BP Pulse Ox 97.0 F L 92 H 24 144/82 84 02/21/21 12:26 02/21/21 12:26 02/21/21 12:26 02/21/21 12:26 02/21/21 12:29 General appearance: Present: mild distress, well-nourished Results - Labs CBC & Chem 7: 02/21/21 04:44 02/21/21 04:44 Labs: Laboratory Last Values WBC 16.7 K/mm3 (4.5-11.0) H 02/21/21 04:44 RBC 4.53 M/mm3 (3.65-5.03) 02/21/21 04:44 Hgb 12.9 gm/dl (10.1-14.3) 02/21/21 04:44 Hct 40.9 % (30.3-42.9) 02/21/21 04:44 MCV 90 fl (79-97) 02/21/21 04:44 MCH 29 pg (28-32) 02/21/21 04:44 MCHC 32 % (30-34) 02/21/21 04:44 RDW 15.2 % (13.2-15.2) 02/21/21 04:44 Plt Count 153 K/mm3 (140-440) 02/21/21 04:44 Add Manual Diff Complete 02/18/21 07:48 Total Counted 100 02/18/21 07:48 Seg Neuts % (Manual) 76.0 % (40.0-70.0) H 02/18/21 07:48 Lymphocytes % (Manual) 14.0 % (13.4-35.0) 02/18/21 07:48 Reactive Lymphs % (Man) 2.0 % 02/17/21 14:34 Monocytes % (Manual) 7.0 % (0.0-7.3) 02/18/21 07:48 Eosinophils % (Manual) 3.0 % (0.0-4.3) 02/17/21 14:34 Metamyelocytes % 4.0 % 02/17/21 14:34 Myelocytes % 2.0 % 02/18/21 07:48 Promyelocytes % 1.0 % 02/18/21 07:48 Nucleated RBC % Not Reportable 02/18/21 07:48 Seg Neutrophils # Man 9.1 K/mm3 (1.8-7.7) H 02/18/21 07:48 Band Neutrophils # 0.0 K/mm3 02/18/21 07:48 Lymphocytes # (Manual) 1.7 K/mm3 (1.2-5.4) 02/18/21 07:48 Abs React Lymphs (Man) 0.0 K/mm3 02/18/21 07:48 Monocytes # (Manual) 0.8 K/mm3 (0.0-0.8) 02/18/21 07:48 Eosinophils # (Manual) 0.0 K/mm3 (0.0-0.4) 02/18/21 07:48 Basophils # (Manual) 0.0 K/mm3 (0.0-0.1) 02/18/21 07:48 Metamyelocytes # 0.0 K/mm3 02/18/21 07:48 Myelocytes # 0.2 K/mm3 02/18/21 07:48 Promyelocytes # 0.1 K/mm3 02/18/21 07:48 Blast Cells # 0.0 K/mm3 02/18/21 07:48 WBC Morphology Not Reportable 02/18/21 07:48 Hypersegmented Neuts Not Reportable 02/18/21 07:48 Hyposegmented Neuts Not Reportable 02/18/21 07:48 Hypogranular Neuts Not Reportable 02/18/21 07:48 Smudge Cells Not Reportable 02/18/21 07:48 Toxic Granulation Not Reportable 02/18/21 07:48 Toxic Vacuolation Not Reportable 02/18/21 07:48 Dohle Bodies Not Reportable 02/18/21 07:48 Pelger-Huet Anomaly Not Reportable 02/18/21 07:48 Cindy Rods Not Reportable 02/18/21 07:48 Platelet Estimate Consistent w auto 02/18/21 07:48 Clumped Platelets Not Reportable 02/18/21 07:48 Plt Clumps, EDTA Not Reportable 02/18/21 07:48 Large Platelets Not Reportable 02/18/21 07:48 Giant Platelets Not Reportable 02/18/21 07:48 Platelet Satelliting Not Reportable 02/18/21 07:48 Plt Morphology Comment Not Reportable 02/18/21 07:48 RBC Morphology Normal 02/18/21 07:48 Dimorphic RBCs Not Reportable 02/18/21 07:48 Polychromasia Not Reportable 02/18/21 07:48 Hypochromasia Not Reportable 02/18/21 07:48 Poikilocytosis Not Reportable 02/18/21 07:48 Anisocytosis Not Reportable 02/18/21 07:48 Microcytosis Not Reportable 02/18/21 07:48 Macrocytosis Not Reportable 02/18/21 07:48 Spherocytes Not Reportable 02/18/21 07:48 Pappenheimer Bodies Not Reportable 02/18/21 07:48 Sickle Cells Not Reportable 02/18/21 07:48 Target Cells Not Reportable 02/18/21 07:48 Tear Drop Cells Not Reportable 02/18/21 07:48 Ovalocytes Not Reportable 02/18/21 07:48 Helmet Cells Not Reportable 02/18/21 07:48 [place] Bodies Not Reportable 02/18/21 07:48 [place] Rings Not Reportable 02/18/21 07:48 [place] Cells Not Reportable 02/18/21 07:48 Bite Cells Not Reportable 02/18/21 07:48 Crenated Cell Not Reportable 02/18/21 07:48 Elliptocytes Not Reportable 02/18/21 07:48 Acanthocytes (Spur) Not Reportable 02/18/21 07:48 Rouleaux Not Reportable 02/18/21 07:48 Hemoglobin C Crystals Not Reportable 02/18/21 07:48 Schistocytes Not Reportable 02/18/21 07:48 Malaria parasites Not Reportable 02/18/21 07:48 [place] Bodies Not Reportable 02/18/21 07:48 Hem Pathologist Commnt No 02/18/21 07:48 PT 13.9 Sec. (12.2-14.9) 02/17/21 14:34 INR 0.96 (0.87-1.13) 02/17/21 14:34 APTT 26.4 Sec. (24.2-36.6) 02/17/21 14:34 D-Dimer > 66007 ng/mlDDU (0-234) H 02/19/21 08:43 ABG pH 7.453 pH Units (7.350-7.450) H 02/20/21 18:46 ABG pCO2 38.9 mm Hg 02/20/21 18:46 ABG pO2 55.0 mm Hg (80.0-90.0) L 02/20/21 18:46 ABG HCO3 26.6 mmol/L (20.0-26.0) H 02/20/21 18:46 ABG O2 Saturation 88.3 % (95.0-99.0) L 02/20/21 18:46 ABG Base Excess 2.6 mmol/L (-2.0-3.0) 02/20/21 18:46 ABG Hemoglobin 14.4 gm/dl (12.0-16.0) 02/20/21 18:46 ABG Carboxyhemoglobin 1.4 % (0.0-5.0) 02/20/21 18:46 ABG Methemoglobin 0.3 % (0.0-1.5) 02/20/21 18:46 Oxyhemoglobin 86.8 % (95.0-99.0) L 02/20/21 18:46 FiO2 100 % 02/20/21 18:46 Sodium 143 mmol/L (137-145) 02/21/21 04:44 Potassium 4.2 mmol/L (3.6-5.0) 02/21/21 04:44 Chloride 104.1 mmol/L (98-107) 02/21/21 04:44 Carbon Dioxide 27 mmol/L (22-30) 02/21/21 04:44 Anion Gap 16 mmol/L 02/21/21 04:44 BUN 26 mg/dL (7-17) H 02/21/21 04:44 Creatinine 0.7 mg/dL (0.6-1.2) 02/21/21 04:44 Estimated GFR > 60 ml/min 02/21/21 04:44 BUN/Creatinine Ratio 37 % 02/21/21 04:44 Glucose 111 mg/dL (65-100) H 02/21/21 04:44 Lactic Acid 1.60 mmol/L (0.7-2.0) 02/17/21 18:39 Calcium 8.8 mg/dL (8.4-10.2) 02/21/21 04:44 Total Bilirubin 0.30 mg/dL (0.1-1.2) 02/21/21 04:44 Direct Bilirubin < 0.2 mg/dL (0-0.2) 02/17/21 14:34 Indirect Bilirubin 0.1 mg/dL 02/17/21 14:34 AST 26 units/L (5-40) 02/21/21 04:44 ALT 32 units/L (7-56) 02/21/21 04:44 Alkaline Phosphatase 66 units/L (35-129) 02/21/21 04:44 C-Reactive Protein 10.90 mg/dL (0.00-1.30) H 02/19/21 07:32 NT-Pro-B Natriuret Pep 86.77 pg/mL (0-900) 02/20/21 16:34 Total Protein 7.0 g/dL (6.3-8.2) 02/21/21 04:44 Albumin 3.4 g/dL (3.9-5) L 02/21/21 04:44 Albumin/Globulin Ratio 0.9 % 02/21/21 04:44 Urine Color Cassandra (Yellow) 02/18/21 Unknown Urine Turbidity Cloudy (Clear) 02/18/21 Unknown Urine pH 5.0 (5.0-7.0) 02/18/21 Unknown Ur Specific [place] 1.027 (1.003-1.030) 02/18/21 Unknown Urine Protein 100 mg/dl mg/dL (Negative) 02/18/21 Unknown Urine Glucose (UA) Neg mg/dL (Negative) 02/18/21 Unknown Urine Ketones Neg mg/dL (Negative) 02/18/21 Unknown Urine Blood Neg (Negative) 02/18/21 Unknown Urine Nitrite Neg (Negative) 02/18/21 Unknown Urine Bilirubin Neg (Negative) 02/18/21 Unknown Urine Urobilinogen < 2.0 mg/dL (<2.0) 02/18/21 Unknown Ur Leukocyte Esterase Neg (Negative) 02/18/21 Unknown Urine WBC (Auto) 7.0 /HPF (0.0-6.0) H 02/18/21 Unknown Urine RBC (Auto) 4.0 /HPF (0.0-6.0) 02/18/21 Unknown U Epithel Cells (Auto) 3.0 /HPF (0-13.0) 02/18/21 Unknown Urine Mucus 2+ /HPF 02/18/21 Unknown Coronavirus (PCR) Positive (Negative) A 02/18/21 Unknown Microbiology: Microbiology 02/17/21 14:34 Peripheral/Venous Blood Culture - Preliminary NO GROWTH AFTER 72 HOURS 02/17/21 14:34 Peripheral/Venous Blood Culture - Preliminary NO GROWTH AFTER 72 HOURS Head/IV: Voiding Method External Female Catheter Active Medications - Current Medications Current Medications: Generic Name Dose Route Start Last Admin Trade Name Freq PRN Reason Stop Dose Admin Acetaminophen 650 mg 02/17/21 23:58 Acetaminophen 325 Mg Tab PO Q4H PRN Pain MILD(1-3)/Fever >100.5/BROWN Amlodipine Besylate 10 mg 02/19/21 10:00 02/20/21 12:17 Amlodipine 10 Mg Tab PO 10 mg DAILY DEISY Administration Apixaban 5 mg 02/20/21 16:41 02/20/21 22:45 Apixaban 5 Mg Tab PO 5 mg BID DEISY Administration Ascorbic Acid 1,000 mg 02/19/21 10:00 02/20/21 22:44 Ascorbic Acid 500 Mg Tab PO 1,000 mg BID DEISY Administration Cholecalciferol 5,000 unit 02/19/21 10:00 02/20/21 12:17 Cholecalciferol (Vit D3) 5,000 Unit Tab PO 5,000 unit DAILY DEISY Administration Dexamethasone 8 mg 02/18/21 10:00 02/20/21 12:17 Dexamethasone 4 Mg/Ml Vial IV 02/26/21 10:01 8 mg Q24H DEISY Administration Famotidine 20 mg 02/18/21 10:00 02/20/21 22:44 Famotidine 20 Mg Tab PO 20 mg BID DEISY Administration Furosemide 40 mg 02/18/21 08:00 02/20/21 12:16 Furosemide 40 Mg/4 Ml Inj IV 40 mg 0800 DEISY Administration Furosemide 40 mg 02/21/21 14:00 Furosemide 40 Mg/4 Ml Inj IV 02/21/21 14:01 ONCE ONE Gabapentin 400 mg 02/19/21 04:00 02/20/21 22:45 Gabapentin 400 Mg Cap PO 400 mg BID DEISY Administration Hydromorphone HCl 0.5 mg 02/17/21 23:58 Hydromorphone 1 Mg/1 Ml Inj IV Q3H PRN Pain , Severe (7-10) REMDESIVIR 100 mg/ Sodium 250 mls @ 500 mls/hr 02/20/21 21:00 02/21/21 05:21 Chloride IV 02/23/21 21:29 Infused Q24HR@2100 DEISY Infusion Ondansetron HCl 4 mg 02/17/21 23:58 Ondansetron 4 Mg/2 Ml Inj IV Q8H PRN Nausea And Vomiting Oxycodone/Acetaminophen 1 tab 02/17/21 23:58 02/20/21 22:45 Oxycodone /Acetaminophen 5-325mg Tab PO 1 tab Q6H PRN Administration Pain, Moderate (4-6) Potassium Chloride 20 meq 02/18/21 00:03 02/20/21 12:16 Potassium Chloride Er 20 Meq Tab PO 20 meq QDAY DEISY Administration Sertraline HCl 50 mg 02/19/21 10:00 02/20/21 12:17 Sertraline 50 Mg Tab PO 50 mg QDAY DEISY Administration Sodium Chloride 10 ml 02/18/21 10:00 02/21/21 10:05 Sodium Chloride 0.9% 10 Ml Flush Syringe IV 10 ml BID DEISY Administration Sodium Chloride 10 ml 02/17/21 23:58 Sodium Chloride 0.9% 10 Ml Flush Syringe IV PRN PRN LINE FLUSH Sodium Chloride 50 ml 02/19/21 04:30 02/20/21 22:44 Sodium Chloride 0.9% 50 Ml Ivpb IV 02/23/21 21:01 50 ml Q24HR@2100 DEISY Administration Zinc Sulfate 220 mg 02/19/21 10:00 02/20/21 12:17 Zinc Sulfate 220 Mg Cap PO 220 mg QDAY DEISY Administration
[2021-02-21] MEDS ORDERED: FUROSEMIDE 40 MG/4 ML INJ IV ONE (14:00)
[2021-02-21] MEDS: cefTRIAXone/NS 2 GM/100 ML 2 GM/100 ML BAG IV SCH (15:07)
[2021-02-21] MEDS: ASCORBIC ACID 500 MG TAB PO SCH ×2 (15:08→22:00)
[2021-02-21] MEDS: ZINC SULFATE 220 MG CAP PO SCH (15:08)
[2021-02-21] MEDS: CHOLECALCIFEROL (VIT D3) 5,000 UNIT TAB PO SCH (15:08)
[2021-02-21] MEDS: dexAMETHasone 4 MG/ML VIAL IV SCH (15:08)
[2021-02-21] MEDS: GABAPENTIN 400 MG CAP PO SCH ×2 (15:08→21:59)
[2021-02-21] MEDS: FUROSEMIDE 40 MG/4 ML INJ IV SCH (15:08)
[2021-02-21] MEDS: FAMOTIDINE 20 MG TAB PO SCH ×2 (15:09→22:00)
[2021-02-21] MEDS: POTASSIUM CHLORIDE ER 20 MEQ TAB PO SCH (15:09)
[2021-02-21] MEDS: SERTRALINE 50 MG TAB PO SCH (15:09)
[2021-02-21] MEDS: APIXABAN 5 MG TAB PO SCH ×2 (15:09→21:59)
[2021-02-21] MEDS: amLODIPine 10 MG TAB PO SCH (15:10)
[2021-02-21] MEDS: SODIUM CHLORIDE 0.9% 50 ML IVPB IV SCH (21:57)
[2021-02-21] MEDS: AZITHROMYCIN 250 MG TAB PO SCH (21:58)
[2021-02-21] MEDS: REMDESIVIR 100 MG in SODIUM CHLORIDE 0.9% 250ML 250 ML IV SCH (21:58)
[2021-02-21] MEDS ORDERED: AZITHROMYCIN 250 MG TAB PO SCH (23:30)
[2021-02-22 05:47] LABS: Alanine Aminotransferase 27 units/L (7-56); Albumin 3.3 g/dL (3.9-5); Blood Urea Nitrogen 25 mg/dL (7-17); Calcium 8.8 mg/dL (8.4-10.2); Hemolysis Index 5
[2021-02-22 05:53] LABS: BUN/Creatinine Ratio 42
[2021-02-22] MEDS: FUROSEMIDE 40 MG/4 ML INJ IV SCH (08:42)
[2021-02-22] MEDS: dexAMETHasone 4 MG/ML VIAL IV SCH (09:01)
[2021-02-22] MEDS: POTASSIUM CHLORIDE ER 20 MEQ TAB PO SCH (09:02)
[2021-02-22] MEDS: GABAPENTIN 400 MG CAP PO SCH ×2 (09:02→21:18)
[2021-02-22] MEDS: FAMOTIDINE 20 MG TAB PO SCH ×2 (09:02→21:18)
[2021-02-22] MEDS: ZINC SULFATE 220 MG CAP PO SCH (09:03)
[2021-02-22] MEDS: ASCORBIC ACID 500 MG TAB PO SCH ×2 (09:03→21:18)
[2021-02-22] MEDS: CHOLECALCIFEROL (VIT D3) 5,000 UNIT TAB PO SCH (09:03)
[2021-02-22] MEDS: SERTRALINE 50 MG TAB PO SCH (09:04)
--- NOTE | 2021-02-22 10:17 | Progress Note ---
Assessment and Plan Assessment and plan: Patient is 61 years old female with history of hypertension, diabetes and DVT currently on Eliquis. Patient brought to the emergency room via EMS from home for evaluation of shortness of breath cough and generalized weakness for the last 5 days. Patient stated that she tested positive for COVID-19 on February 10 and since then she has not been feeling well. EMS stated that patient initial oxygen saturation was 75% on room air improved to 86% on a nonrebreather. Patient stated that her daughter also tested positive. 02/19/2020 Patient on 50% Ventimask Covid positive Continue steroids May DC antibiotics Respiratory assessment and treatment 02/19: Patient still hypoxic, encourage prone positioning, Pulmonary and ID consult. Will obtain CTA chest to evaluate for PE. Continue steroid therapy and oxygen therapy wean as tolerated. Continuous pulse oximeter. Plan discussed with the patient. 02/20: Patient seen and examined, remains on NRBM. awaiting CT CHEST WITH ANGIO Ordered yesterday. Encourage proning the patient says she was not proned yesterday discussed with nursing staff. Continue steroid therapy and remdesivir. Patient was seen by ID and as documented by ID"She is a candidate for Actemra based on CRp and O2 requirements. unfortunately we have not been getting procalcitonin results. -ordered Actemra once (afebrile, white count only mildly elevated in the setting of steroids)" Discussed plan of care with the nurse. Also called to updated the patients sister listed as NOK but got voice mail 02/21: Continue steroids, remdesivir, patient received 1 dose of Actemra but unable to get the second dose due to availability. CTA showed dense consolidation but no effusion and no pulmonary embolism patient does have a lower extremity DVT. Eliquis continues at full dose of 5 mg twice daily we will continue to monitor closely. Prognosis is guarded counseling for compliance for 15 minutes. 02/22: Patient clinically not improving much of switch the patient to Lovenox. Prognosis remains guarded. Continue anticoagulation due to DVT still suspicious of pulmonary embolism as a result we will obtain echocardiogram and vascular consult per pulmonary request which I agree with. I will also transfer the patient to stepdown unit for closer monitoring. (1) Acute respiratory failure with hypoxia Current Visit: Yes Status: Acute Plan to address problem: Patient on Xarelto was on Ventimask Rule out Covid pneumonia Respiratory assessment and treatment Supplemental oxygen as necessary Patient was very hypoxic on room air around 76% Improved with oxygen supplementation (2) SIRS (systemic inflammatory response syndrome) Current Visit: Yes Status: Acute Plan to address problem: Clinical picture consistent with [place] not done (3) Multifocal pneumonia Current Visit: Yes Status: Acute Plan to address problem: IV antibiotics in the form of azithromycin and Rocephin (4)COVID-19 virus infection Current Visit: Yes Status: Acute Plan to address problem: Coronavirus PCR test in a.m. Patient started on remdesivir ID consult requested (5) Hypertension Current Visit: Yes Status: Chronic Qualifiers: Hypertension type: primary hypertension Qualified Code(s): I10 - Essential (primary) hypertension Plan to address problem: Continue antihypertensives (6) T2DM (type 2 diabetes mellitus) Current Visit: Yes Status: Chronic Qualifiers: Diabetes mellitus senior living insulin use: unspecified senior living insulin use status Plan to address problem: Continue Metformin and coverage Check hemoglobin A1c (7) Hypernatremia (8) DVT LOWER EXT- RIGHT (9) DVT prophylaxis Current Visit: Yes Status: Acute The high probability of a clinically significant, sudden or life threatening deterioration of the [pulmonary] system(s) required my full and direct attention, intervention and personal management. The aggregate critical care time was [35] minutes. This time is in addition to time spent performing reported procedures but includes the following: [X] Data Review and interpretation [X] Patient assessment and monitoring of vital signs [X] Documentation [X] Medication orders and management History Interval history: Patient seen and examined she is on nonrebreather required to also go back on high flow yesterday only satting 90 to 92% Hospitalist Physical - Physical exam Narrative exam: General appearance: Present: mild distress, on NRBM and high flow this morning changed to nonrebreather patient 92% - EENT Eyes: PERRL, EOM intact ENT: hearing intact, clear oral mucosa Ears: bilateral: normal - Neck Neck: supple, normal ROM - Respiratory Respiratory effort: normal Respiratory: bilateral: CTA - Breasts Breasts: normal - Cardiovascular Heart rate: 78 Rhythm: regular Heart Sounds: Present: S1 & S2. Absent: gallop, rub Extremities: pulses intact, No edema, normal color, Full ROM - Gastrointestinal General gastrointestinal: Present: soft, non-tender, non-distended, normal bowel sounds - Genitourinary Female genitourinary: normal - Integumentary Integumentary: clear, warm, dry - Musculoskeletal Musculoskeletal: 1, strength equal bilaterally - Neurologic Neurologic: moves all extremities - Psychiatric Psychiatric: memory intact, appropriate mood/affect, intact judgment & insight - Constitutional Vitals: Temp Pulse Resp BP Pulse Ox 98.1 F 68 24 101/62 88 02/21/21 20:45 02/22/21 06:16 02/22/21 06:16 02/21/21 20:45 02/22/21 06:16 General appearance: Present: mild distress, well-nourished Results - Labs CBC & Chem 7: 02/21/21 04:44 02/22/21 04:47 Labs: Laboratory Last Values WBC 16.7 K/mm3 (4.5-11.0) H 02/21/21 04:44 RBC 4.53 M/mm3 (3.65-5.03) 02/21/21 04:44 Hgb 12.9 gm/dl (10.1-14.3) 02/21/21 04:44 Hct 40.9 % (30.3-42.9) 02/21/21 04:44 MCV 90 fl (79-97) 02/21/21 04:44 MCH 29 pg (28-32) 02/21/21 04:44 MCHC 32 % (30-34) 02/21/21 04:44 RDW 15.2 % (13.2-15.2) 02/21/21 04:44 Plt Count 153 K/mm3 (140-440) 02/21/21 04:44 Add Manual Diff Complete 02/18/21 07:48 Total Counted 100 02/18/21 07:48 Seg Neuts % (Manual) 76.0 % (40.0-70.0) H 02/18/21 07:48 Lymphocytes % (Manual) 14.0 % (13.4-35.0) 02/18/21 07:48 Reactive Lymphs % (Man) 2.0 % 02/17/21 14:34 Monocytes % (Manual) 7.0 % (0.0-7.3) 02/18/21 07:48 Eosinophils % (Manual) 3.0 % (0.0-4.3) 02/17/21 14:34 Metamyelocytes % 4.0 % 02/17/21 14:34 Myelocytes % 2.0 % 02/18/21 07:48 Promyelocytes % 1.0 % 02/18/21 07:48 Nucleated RBC % Not Reportable 02/18/21 07:48 Seg Neutrophils # Man 9.1 K/mm3 (1.8-7.7) H 02/18/21 07:48 Band Neutrophils # 0.0 K/mm3 02/18/21 07:48 Lymphocytes # (Manual) 1.7 K/mm3 (1.2-5.4) 02/18/21 07:48 Abs React Lymphs (Man) 0.0 K/mm3 02/18/21 07:48 Monocytes # (Manual) 0.8 K/mm3 (0.0-0.8) 02/18/21 07:48 Eosinophils # (Manual) 0.0 K/mm3 (0.0-0.4) 02/18/21 07:48 Basophils # (Manual) 0.0 K/mm3 (0.0-0.1) 02/18/21 07:48 Metamyelocytes # 0.0 K/mm3 02/18/21 07:48 Myelocytes # 0.2 K/mm3 02/18/21 07:48 Promyelocytes # 0.1 K/mm3 02/18/21 07:48 Blast Cells # 0.0 K/mm3 02/18/21 07:48 WBC Morphology Not Reportable 02/18/21 07:48 Hypersegmented Neuts Not Reportable 02/18/21 07:48 Hyposegmented Neuts Not Reportable 02/18/21 07:48 Hypogranular Neuts Not Reportable 02/18/21 07:48 Smudge Cells Not Reportable 02/18/21 07:48 Toxic Granulation Not Reportable 02/18/21 07:48 Toxic Vacuolation Not Reportable 02/18/21 07:48 Dohle Bodies Not Reportable 02/18/21 07:48 Pelger-Huet Anomaly Not Reportable 02/18/21 07:48 Cindy Rods Not Reportable 02/18/21 07:48 Platelet Estimate Consistent w auto 02/18/21 07:48 Clumped Platelets Not Reportable 02/18/21 07:48 Plt Clumps, EDTA Not Reportable 02/18/21 07:48 Large Platelets Not Reportable 02/18/21 07:48 Giant Platelets Not Reportable 02/18/21 07:48 Platelet Satelliting Not Reportable 02/18/21 07:48 Plt Morphology Comment Not Reportable 02/18/21 07:48 RBC Morphology Normal 02/18/21 07:48 Dimorphic RBCs Not Reportable 02/18/21 07:48 Polychromasia Not Reportable 02/18/21 07:48 Hypochromasia Not Reportable 02/18/21 07:48 Poikilocytosis Not Reportable 02/18/21 07:48 Anisocytosis Not Reportable 02/18/21 07:48 Microcytosis Not Reportable 02/18/21 07:48 Macrocytosis Not Reportable 02/18/21 07:48 Spherocytes Not Reportable 02/18/21 07:48 Pappenheimer Bodies Not Reportable 02/18/21 07:48 Sickle Cells Not Reportable 02/18/21 07:48 Target Cells Not Reportable 02/18/21 07:48 Tear Drop Cells Not Reportable 02/18/21 07:48 Ovalocytes Not Reportable 02/18/21 07:48 Helmet Cells Not Reportable 02/18/21 07:48 Sumner-Hickox Bodies Not Reportable 02/18/21 07:48 [place] Rings Not Reportable 02/18/21 07:48 Alicia Cells Not Reportable 02/18/21 07:48 Bite Cells Not Reportable 02/18/21 07:48 Crenated Cell Not Reportable 02/18/21 07:48 Elliptocytes Not Reportable 02/18/21 07:48 Acanthocytes (Spur) Not Reportable 02/18/21 07:48 Rouleaux Not Reportable 02/18/21 07:48 Hemoglobin C Crystals Not Reportable 02/18/21 07:48 Schistocytes Not Reportable 02/18/21 07:48 Malaria parasites Not Reportable 02/18/21 07:48 Pedro Pablo Bodies Not Reportable 02/18/21 07:48 Hem Pathologist Commnt No 02/18/21 07:48 PT 13.9 Sec. (12.2-14.9) 02/17/21 14:34 INR 0.96 (0.87-1.13) 02/17/21 14:34 APTT 26.4 Sec. (24.2-36.6) 02/17/21 14:34 D-Dimer > 93281 ng/mlDDU (0-234) H 02/19/21 08:43 ABG pH 7.453 pH Units (7.350-7.450) H 02/20/21 18:46 ABG pCO2 38.9 mm Hg 02/20/21 18:46 ABG pO2 55.0 mm Hg (80.0-90.0) L 02/20/21 18:46 ABG HCO3 26.6 mmol/L (20.0-26.0) H 02/20/21 18:46 ABG O2 Saturation 88.3 % (95.0-99.0) L 02/20/21 18:46 ABG Base Excess 2.6 mmol/L (-2.0-3.0) 02/20/21 18:46 ABG Hemoglobin 14.4 gm/dl (12.0-16.0) 02/20/21 18:46 ABG Carboxyhemoglobin 1.4 % (0.0-5.0) 02/20/21 18:46 ABG Methemoglobin 0.3 % (0.0-1.5) 02/20/21 18:46 Oxyhemoglobin 86.8 % (95.0-99.0) L 02/20/21 18:46 FiO2 100 % 02/20/21 18:46 Sodium 142 mmol/L (137-145) 02/22/21 04:47 Potassium 4.1 mmol/L (3.6-5.0) 02/22/21 04:47 Chloride 102.0 mmol/L (98-107) 02/22/21 04:47 Carbon Dioxide 24 mmol/L (22-30) 02/22/21 04:47 Anion Gap 20 mmol/L 02/22/21 04:47 BUN 25 mg/dL (7-17) H 02/22/21 04:47 Creatinine 0.6 mg/dL (0.6-1.2) 02/22/21 04:47 Estimated GFR > 60 ml/min 02/22/21 04:47 BUN/Creatinine Ratio 42 % 02/22/21 04:47 Glucose 125 mg/dL (65-100) H 02/22/21 04:47 Lactic Acid 1.60 mmol/L (0.7-2.0) 02/17/21 18:39 Calcium 8.8 mg/dL (8.4-10.2) 02/22/21 04:47 Total Bilirubin 0.30 mg/dL (0.1-1.2) 02/22/21 04:47 Direct Bilirubin < 0.2 mg/dL (0-0.2) 02/17/21 14:34 Indirect Bilirubin 0.1 mg/dL 02/17/21 14:34 AST 24 units/L (5-40) 02/22/21 04:47 ALT 27 units/L (7-56) 02/22/21 04:47 Alkaline Phosphatase 66 units/L (35-129) 02/22/21 04:47 C-Reactive Protein 10.90 mg/dL (0.00-1.30) H 02/19/21 07:32 NT-Pro-B Natriuret Pep 86.77 pg/mL (0-900) 02/20/21 16:34 Total Protein 7.3 g/dL (6.3-8.2) 02/22/21 04:47 Albumin 3.3 g/dL (3.9-5) L 02/22/21 04:47 Albumin/Globulin Ratio 0.8 % 02/22/21 04:47 Urine Color Cassandra (Yellow) 02/18/21 Unknown Urine Turbidity Cloudy (Clear) 02/18/21 Unknown Urine pH 5.0 (5.0-7.0) 02/18/21 Unknown Ur Specific [facility] 1.027 (1.003-1.030) 02/18/21 Unknown Urine Protein 100 mg/dl mg/dL (Negative) 02/18/21 Unknown Urine Glucose (UA) Neg mg/dL (Negative) 02/18/21 Unknown Urine Ketones Neg mg/dL (Negative) 02/18/21 Unknown Urine Blood Neg (Negative) 02/18/21 Unknown Urine Nitrite Neg (Negative) 02/18/21 Unknown Urine Bilirubin Neg (Negative) 02/18/21 Unknown Urine Urobilinogen < 2.0 mg/dL (<2.0) 02/18/21 Unknown Ur Leukocyte Esterase Neg (Negative) 02/18/21 Unknown Urine WBC (Auto) 7.0 /HPF (0.0-6.0) H 02/18/21 Unknown Urine RBC (Auto) 4.0 /HPF (0.0-6.0) 02/18/21 Unknown U Epithel Cells (Auto) 3.0 /HPF (0-13.0) 02/18/21 Unknown Urine Mucus 2+ /HPF 02/18/21 Unknown Coronavirus (PCR) Positive (Negative) A 02/18/21 Unknown Microbiology: Microbiology 02/17/21 14:34 Peripheral/Venous Blood Culture - Preliminary NO GROWTH AFTER 4 DAYS 02/17/21 14:34 Peripheral/Venous Blood Culture - Preliminary NO GROWTH AFTER 4 DAYS Head/IV: Voiding Method External Female Catheter Active Medications - Current Medications Current Medications: Generic Name Dose Route Start Last Admin Trade Name Freq PRN Reason Stop Dose Admin Acetaminophen 650 mg 02/17/21 23:58 Acetaminophen 325 Mg Tab PO Q4H PRN Pain MILD(1-3)/Fever >100.5/BROWN Amlodipine Besylate 10 mg 02/19/21 10:00 02/21/21 15:10 Amlodipine 10 Mg Tab PO 10 mg DAILY DEISY Administration Ascorbic Acid 1,000 mg 02/19/21 10:00 02/22/21 09:03 Ascorbic Acid 500 Mg Tab PO 1,000 mg BID DEISY Administration Cholecalciferol 5,000 unit 02/19/21 10:00 02/22/21 09:03 Cholecalciferol (Vit D3) 5,000 Unit Tab PO 5,000 unit DAILY DEISY Administration Dexamethasone 8 mg 02/18/21 10:00 02/22/21 09:01 Dexamethasone 4 Mg/Ml Vial IV 02/26/21 10:01 8 mg Q24H DEISY Administration Enoxaparin Sodium 90 mg 02/22/21 10:00 Enoxaparin 100 Mg/1 Ml Inj 1 mg/kg (90 mg) SUB-Q Q12HR [facility] Protocol Famotidine 20 mg 02/18/21 10:00 02/22/21 09:02 Famotidine 20 Mg Tab PO 20 mg BID DEISY Administration Furosemide 40 mg 02/18/21 08:00 02/22/21 08:42 Furosemide 40 Mg/4 Ml Inj IV 40 mg 0800 DEISY Administration Gabapentin 400 mg 02/19/21 04:00 02/22/21 09:02 Gabapentin 400 Mg Cap PO 400 mg BID DEISY Administration Hydromorphone HCl 0.5 mg 02/17/21 23:58 Hydromorphone 1 Mg/1 Ml Inj IV Q3H PRN Pain , Severe (7-10) REMDESIVIR 100 mg/ Sodium 250 mls @ 500 mls/hr 02/20/21 21:00 02/21/21 21:58 Chloride IV 02/23/21 21:29 500 mls/hr Q24HR@2100 DEISY Administration Ondansetron HCl 4 mg 02/17/21 23:58 Ondansetron 4 Mg/2 Ml Inj IV Q8H PRN Nausea And Vomiting Oxycodone/Acetaminophen 1 tab 02/17/21 23:58 02/20/21 22:45 Oxycodone /Acetaminophen 5-325mg Tab PO 1 tab Q6H PRN Administration Pain, Moderate (4-6) Potassium Chloride 20 meq 02/18/21 00:03 02/22/21 09:02 Potassium Chloride Er 20 Meq Tab PO 20 meq QDAY DEISY Administration Sertraline HCl 50 mg 02/19/21 10:00 02/22/21 09:04 Sertraline 50 Mg Tab PO 50 mg QDAY DEISY Administration Sodium Chloride 10 ml 02/18/21 10:00 02/22/21 09:03 Sodium Chloride 0.9% 10 Ml Flush Syringe IV 10 ml BID DEISY Administration Sodium Chloride 10 ml 02/17/21 23:58 Sodium Chloride 0.9% 10 Ml Flush Syringe IV PRN PRN LINE FLUSH Sodium Chloride 50 ml 02/19/21 04:30 02/21/21 21:57 Sodium Chloride 0.9% 50 Ml Ivpb IV 02/23/21 21:01 50 ml Q24HR@2100 DEISY Administration Zinc Sulfate 220 mg 02/19/21 10:00 02/22/21 09:03 Zinc Sulfate 220 Mg Cap PO 220 mg QDAY DEISY Administration
[2021-02-22] MEDS: ENOXAPARIN 100 MG/1 ML INJ SUB-Q SCH ×2 (12:41→21:18)
[2021-02-22] MEDS: amLODIPine 10 MG TAB PO SCH (12:42)
--- NOTE | 2021-02-22 12:51 | Progress Note ---
Assessment and Plan Cultures: Blood culture no growth so far. A/P: 61 yo F PMHx HTn, Dm2 now with: #Severe COVID-19 pneumonia: Patient presented with a week of symptoms, chest x- ray with diffuse bilateral infiltrates, admission O2 sats decreased on room air. Inflammatory markers elevated #Acute hypoxemic respiratory failure: Likely secondary to COVID-19 infection. Currently on HFNC #Diabetes: tight glycemic control for best outcomes. #DVT: in right leg. Recommendations: -Dexamethasone 6 mg IV/PO daily for 10 days -Remdesivir x5 days -Obtain q48-72h inflammatory markers - ferritin, Ddimer, CRP, LDH -Completed 5 days empiric antibiotics. -Patient was not administered Actemra dose, found in patient room, and unable to source a second dose. -No evidence of PTE on CTA. -Anticoagulation per hospital protocol -Proning as able Thank you for the consult, we will continue to follow. Dr. Cameron taking over Thursday Braulio Crawford MD [facility] O: [phone] F: [phone] Subjective Date of service: 02/22/21 Principal diagnosis: COVID pneumonia Interval history: Afebrile, white count 16.7. Increased from yesterday. On [facility] Imaging personally reviewed: Echo: Normal ejection fraction, no evidence of endocarditis. Duplex ultrasound right-sided DVT. Objective - Exam Narrative Exam: Physical exam deferred to reduce risk of transmission of COVID-19. Please refer to primary team's note. - Constitutional Vitals: Vital Signs Temp Pulse Resp BP Pulse Ox 98.1 F 68 24 101/62 92 02/21/21 20:45 02/22/21 06:16 02/22/21 06:16 02/21/21 20:45 02/22/21 08:00 Temperature -Last 24 Hours Temperature 98.1 F Temperature 98.9 F Temperature 97.0 F - Labs CBC & Chem 7: 02/21/21 04:44 02/22/21 04:47 Labs: Abnormal lab results 02/22/21 Range/Units 04:47 BUN 25 H (7-17) mg/dL Glucose 125 H (65-100) mg/dL Albumin 3.3 L (3.9-5) g/dL
--- NOTE | 2021-02-22 13:41 | Consultation ---
History of Present Illness - Reason for Consult Consult date: 02/22/21 COVID-19 Infection with Hypoxia Rule out PE Requesting physician: BAKARI MENDOZA - History of Present Illness The patient is a 61-year-old female with a history of lupus, reported DVT with PE in the past, and COVID infection that was diagnosed February 10. She presented to the emergency department with complaints of shortness of breath and generalized fatigue that had been present for approximately 5 days prior to her presentation. Upon initial presentation she had oxygen saturations in the 70s on room air which improved to the mid 60s with nasal cannula. Since her admission she has required high flow nasal cannula, BiPAP, and the use of a nonrebreather. She has also had steroids and antibiotics for the management of her pneumonia and despite this she has continued to suffer from hypoxemia. She had a recent CTA of her chest that demonstrated bilateral pneumonia and was dictated as having no evidence of pulmonary embolus. Her labs demonstrated a D- dimer greater than 10,000 and a venous duplex demonstrated an acute DVT in her right posterior tibial vein. There were no additional significant findings. There are no additional complaints. Past History Past Medical History: arthritis, diabetes, hypertension, other (anxiety, VTE, COVID-19 infection) Past Surgical History: Other (2 back surgeries, hip surgery, knee replacement) Social history: no significant social history Family history: hypertension Medications and Allergies Allergies Allergy/AdvReac Type Severity Reaction Status Date / Time No Known Allergies Allergy Verified 02/19/21 14:28 Home Medications Medication Instructions Recorded Confirmed Last Taken Type amLODIPine [Norvasc] 10 mg PO DAILY 05/12/14 02/19/21 06/07/20 05:00 History Apixaban [Eliquis] 2.5 mg PO BID 05/17/20 02/19/21 06/03/20 09:00 History Acetaminophen/Codeine [Tylenol 1 tab PO Q6H PRN 02/19/21 02/19/21 Unknown History /Codeine # 3 tab] Ibuprofen [Motrin] 800 mg PO QDAY PRN 02/19/21 02/19/21 Unknown History Sertraline [Zoloft] 100 mg PO QDAY 02/19/21 02/19/21 Unknown History Active Meds: Active Medications Acetaminophen (Acetaminophen 325 Mg Tab) 650 mg PO Q4H PRN PRN Reason: Pain MILD(1-3)/Fever >100.5/BROWN Amlodipine Besylate (Amlodipine 10 Mg Tab) 10 mg PO DAILY [facility] Last Admin: 02/22/21 12:42 Dose: 10 mg Ascorbic Acid (Ascorbic Acid 500 Mg Tab) 1,000 mg PO BID [facility] Last Admin: 02/22/21 09:03 Dose: 1,000 mg Cholecalciferol (Cholecalciferol (Vit D3) 5,000 Unit Tab) 5,000 unit PO DAILY [facility] Last Admin: 02/22/21 09:03 Dose: 5,000 unit Dexamethasone (Dexamethasone 4 Mg/Ml Vial) 8 mg IV Q24H [facility] Stop: 02/26/21 10:01 Last Admin: 02/22/21 09:01 Dose: 8 mg Enoxaparin Sodium (Enoxaparin 100 Mg/1 Ml Inj) 90 mg 1 mg/kg (90 mg) SUB-Q Q12HR [facility]; Protocol Last Admin: 02/22/21 12:41 Dose: 90 mg Famotidine (Famotidine 20 Mg Tab) 20 mg PO BID [facility] Last Admin: 02/22/21 09:02 Dose: 20 mg Furosemide (Furosemide 40 Mg/4 Ml Inj) 40 mg IV 0800 [facility] Last Admin: 02/22/21 08:42 Dose: 40 mg Gabapentin (Gabapentin 400 Mg Cap) 400 mg PO BID [facility] Last Admin: 02/22/21 09:02 Dose: 400 mg Hydromorphone HCl (Hydromorphone 1 Mg/1 Ml Inj) 0.5 mg IV Q3H PRN PRN Reason: Pain , Severe (7-10) REMDESIVIR 100 mg/ Sodium (Chloride) 250 mls @ 500 mls/hr IV Q24HR@2100 [facility] Stop: 02/23/21 21:29 Last Admin: 02/21/21 21:58 Dose: 500 mls/hr Ondansetron HCl (Ondansetron 4 Mg/2 Ml Inj) 4 mg IV Q8H PRN PRN Reason: Nausea And Vomiting Oxycodone/Acetaminophen (Oxycodone /Acetaminophen 5-325mg Tab) 1 tab PO Q6H PRN PRN Reason: Pain, Moderate (4-6) Last Admin: 02/20/21 22:45 Dose: 1 tab Potassium Chloride (Potassium Chloride Er 20 Meq Tab) 20 meq PO QDAY [facility] Last Admin: 02/22/21 09:02 Dose: 20 meq Sertraline HCl (Sertraline 50 Mg Tab) 50 mg PO QDAY [facility] Last Admin: 02/22/21 09:04 Dose: 50 mg Sodium Chloride (Sodium Chloride 0.9% 10 Ml Flush Syringe) 10 ml IV BID [facility] Last Admin: 02/22/21 09:03 Dose: 10 ml Sodium Chloride (Sodium Chloride 0.9% 10 Ml Flush Syringe) 10 ml IV PRN PRN PRN Reason: LINE FLUSH Sodium Chloride (Sodium Chloride 0.9% 50 Ml Ivpb) 50 ml IV Q24HR@2100 [facility] Stop: 02/23/21 21:01 Last Admin: 02/21/21 21:57 Dose: 50 ml Zinc Sulfate (Zinc Sulfate 220 Mg Cap) 220 mg PO QDAY [facility] Last Admin: 02/22/21 09:03 Dose: 220 mg Review of Systems All systems: negative Exam - Physical Exam Narrative exam: Physical exam deferred to reduce risk of transmission of COVID-19. Please refer to primary team's note. - Constitutional Vitals: Temp Pulse Resp BP Pulse Ox 98.5 F 87 30 H 122/79 64 L 02/22/21 12:03 02/22/21 12:03 02/22/21 12:03 02/22/21 12:03 02/22/21 12:03 Results - Labs CBC & Chem 7: 02/21/21 04:44 02/22/21 04:47 Labs: Abnormal lab results 02/22/21 Range/Units 04:47 BUN 25 H (7-17) mg/dL Glucose 125 H (65-100) mg/dL Albumin 3.3 L (3.9-5) g/dL - Imaging and Cardiology CT scan - chest: image reviewed Assessment and Plan The patient is a 61-year-old female who presented with COVID-19 infection and has had persistent hypoxemia despite optimal medical management. She has an elevated D-dimer, greater than 10,000, with a finding of an acute DVT of a posterior tibial vein however it is unlikely that this alone accounts for her D- dimer level. I reviewed the CTA of her chest and it does appear that she has several small emboli in the segmental branches of her right lung and I did not appreciate any significant emboli in the left lung. The small emboli would not account for her significant respiratory distress. There would be no benefit from performing a percutaneous mechanical thrombectomy or thrombolysis. Would recommend continuing anticoagulation and supportive therapy as needed.
[2021-02-22] MEDS: REMDESIVIR 100 MG in SODIUM CHLORIDE 0.9% 250ML 250 ML IV SCH (21:17)
[2021-02-22] MEDS: SODIUM CHLORIDE 0.9% 50 ML IVPB IV SCH (21:18)
[2021-02-23] MEDS: FUROSEMIDE 40 MG/4 ML INJ IV SCH (08:25)
[2021-02-23 09:33] LABS: Hematocrit 47.7 % (30.3-42.9); Hemoglobin 15.2 gm/dl (10.1-14.3); Mean Corpuscular HGB Conc 32 % (30-34); Mean Corpuscular Volume 90 fl (79-97); Platelet Count 239 K/mm3 (140-440); Red Blood Count 5.29 M/mm3 (3.65-5.03); Red Cell Distribution Width 14.9 % (13.2-15.2)
--- NOTE | 2021-02-23 09:41 | Progress Note ---
Assessment and Plan - Patient Problems (1) Pulmonary emboli Current Visit: Yes Status: Acute (2) Acute respiratory failure with hypoxia Current Visit: Yes Status: Acute (3) Multifocal pneumonia Current Visit: Yes Status: Acute (4) Hypertension Current Visit: Yes Status: Chronic Qualifiers: Hypertension type: primary hypertension Qualified Code(s): I10 - Essential (primary) hypertension Subjective Principal diagnosis: COVID pneumonia Interval history: IR note noted pt on hiflo and fm awake Objective Vital Signs - 12hr 02/22/21 02/22/21 02/22/21 22:00 23:00 23:06 Temperature Pulse Rate 68 64 65 Respiratory 29 H 22 24 Rate Blood Pressure 123/82 120/79 120/79 O2 Sat by Pulse 92 93 93 Oximetry 02/23/21 02/23/21 02/23/21 00:00 00:40 01:00 Temperature 98.5 F Pulse Rate 62 69 66 Respiratory 23 29 H 25 H Rate Blood Pressure 112/77 112/77 124/79 O2 Sat by Pulse 94 96 95 Oximetry 02/23/21 02/23/21 02/23/21 02:00 03:00 03:37 Temperature Pulse Rate 66 66 Respiratory 21 21 20 Rate Blood Pressure 105/69 108/69 O2 Sat by Pulse 95 93 92 Oximetry 02/23/21 02/23/21 02/23/21 04:00 05:01 06:00 Temperature 97.6 F Pulse Rate 72 67 Respiratory 16 21 Rate Blood Pressure 113/77 113/77 99/57 O2 Sat by Pulse 93 89 94 Oximetry 02/23/21 02/23/21 07:00 08:00 Temperature Pulse Rate 67 Respiratory 22 Rate Blood Pressure 101/61 O2 Sat by Pulse 95 88 Oximetry Constitutional: alert, other (on hiflo) ENT: oropharynx moist Neck: supple Ascultation: Bilateral: diminished breath sounds Cardiovascular: regular rate and rhythm Gastrointestinal: normoactive bowel sounds, soft, non-tender, non-distended Integumentary: normal Extremities: no cyanosis CBC and BMP: 02/23/21 09:05 02/23/21 09:05 ABG, PT/INR, D-dimer: ABG ABG pH 7.453 pH Units (7.350-7.450) H 02/20/21 18:46 ABG pCO2 38.9 mm Hg 02/20/21 18:46 ABG pO2 55.0 mm Hg (80.0-90.0) L 02/20/21 18:46 ABG O2 Saturation 88.3 % (95.0-99.0) L 02/20/21 18:46 PT/INR, D-dimer PT 13.9 Sec. (12.2-14.9) 02/17/21 14:34 INR 0.96 (0.87-1.13) 02/17/21 14:34 D-Dimer > 95999 ng/mlDDU (0-234) H 02/19/21 08:43 Abnormal lab findings: Abnormal Labs 02/17/21 02/17/21 02/17/21 14:34 14:34 14:34 WBC 11.7 H Hct 44.9 H RDW 15.6 H Seg Neuts % (Manual) Lymphocytes % (Manual) 9.0 L Monocytes % (Manual) 12.0 H Seg Neutrophils # Man 8.2 H Lymphocytes # (Manual) 1.1 L Monocytes # (Manual) 1.4 H D-Dimer ABG pH ABG pO2 ABG HCO3 ABG O2 Saturation Oxyhemoglobin Sodium Potassium 3.5 L Chloride BUN 27 H Glucose 150 H Lactic Acid 2.90 H* AST C-Reactive Protein NT-Pro-B Natriuret Pep Albumin Urine WBC (Auto) Coronavirus (PCR) 02/17/21 02/18/21 02/18/21 14:34 07:48 07:48 WBC 12.0 H Hct RDW 15.4 H Seg Neuts % (Manual) 76.0 H Lymphocytes % (Manual) Monocytes % (Manual) Seg Neutrophils # Man 9.1 H Lymphocytes # (Manual) Monocytes # (Manual) D-Dimer ABG pH ABG pO2 ABG HCO3 ABG O2 Saturation Oxyhemoglobin Sodium Potassium Chloride BUN 36 H Glucose 133 H Lactic Acid AST 57 H C-Reactive Protein NT-Pro-B Natriuret Pep 1619 H Albumin 3.3 L Urine WBC (Auto) Coronavirus (PCR) 02/18/21 02/18/21 02/19/21 Unknown Unknown 07:32 WBC Hct RDW Seg Neuts % (Manual) Lymphocytes % (Manual) Monocytes % (Manual) Seg Neutrophils # Man Lymphocytes # (Manual) Monocytes # (Manual) D-Dimer ABG pH ABG pO2 ABG HCO3 ABG O2 Saturation Oxyhemoglobin Sodium 148 H D Potassium Chloride BUN 41 H Glucose 123 H Lactic Acid AST 57 H C-Reactive Protein NT-Pro-B Natriuret Pep Albumin 3.7 L Urine WBC (Auto) 7.0 H Coronavirus (PCR) Positive A 02/19/21 02/19/21 02/20/21 07:32 08:43 05:00 WBC Hct RDW Seg Neuts % (Manual) Lymphocytes % (Manual) Monocytes % (Manual) Seg Neutrophils # Man Lymphocytes # (Manual) Monocytes # (Manual) D-Dimer > 50161 H ABG pH ABG pO2 ABG HCO3 ABG O2 Saturation Oxyhemoglobin Sodium 147 H Potassium Chloride 107.6 H BUN 36 H Glucose Lactic Acid AST C-Reactive Protein 10.90 H NT-Pro-B Natriuret Pep Albumin 3.3 L Urine WBC (Auto) Coronavirus (PCR) 02/20/21 02/21/21 02/21/21 18:46 04:44 04:44 WBC 16.7 H Hct RDW Seg Neuts % (Manual) Lymphocytes % (Manual) Monocytes % (Manual) Seg Neutrophils # Man Lymphocytes # (Manual) Monocytes # (Manual) D-Dimer ABG pH 7.453 H ABG pO2 55.0 L ABG HCO3 26.6 H ABG O2 Saturation 88.3 L Oxyhemoglobin 86.8 L Sodium Potassium Chloride BUN 26 H Glucose 111 H Lactic Acid AST C-Reactive Protein NT-Pro-B Natriuret Pep Albumin 3.4 L Urine WBC (Auto) Coronavirus (PCR) 02/22/21 04:47 WBC Hct RDW Seg Neuts % (Manual) Lymphocytes % (Manual) Monocytes % (Manual) Seg Neutrophils # Man Lymphocytes # (Manual) Monocytes # (Manual) D-Dimer ABG pH ABG pO2 ABG HCO3 ABG O2 Saturation Oxyhemoglobin Sodium Potassium Chloride BUN 25 H Glucose 125 H Lactic Acid AST C-Reactive Protein NT-Pro-B Natriuret Pep Albumin 3.3 L Urine WBC (Auto) Coronavirus (PCR)
[2021-02-23 10:13] LABS: Blood Urea Nitrogen 27 mg/dL (7-17); Calcium 9.6 mg/dL (8.4-10.2); Hemolysis Index 23
[2021-02-23 10:15] LABS: BUN/Creatinine Ratio 39
[2021-02-23] MEDS: GABAPENTIN 400 MG CAP PO SCH ×2 (11:22→21:54)
[2021-02-23] MEDS: dexAMETHasone 4 MG/ML VIAL IV SCH (11:22)
[2021-02-23] MEDS: CHOLECALCIFEROL (VIT D3) 5,000 UNIT TAB PO SCH (11:22)
[2021-02-23] MEDS: FAMOTIDINE 20 MG TAB PO SCH ×2 (11:22→21:54)
[2021-02-23] MEDS: ASCORBIC ACID 500 MG TAB PO SCH ×2 (11:22→21:54)
[2021-02-23] MEDS: POTASSIUM CHLORIDE ER 20 MEQ TAB PO SCH (11:22)
[2021-02-23] MEDS: SERTRALINE 50 MG TAB PO SCH (11:22)
[2021-02-23] MEDS: amLODIPine 10 MG TAB PO SCH (11:23)
[2021-02-23] MEDS: ENOXAPARIN 100 MG/1 ML INJ SUB-Q SCH ×2 (11:23→21:53)
[2021-02-23] MEDS: ZINC SULFATE 220 MG CAP PO SCH (11:24)
[2021-02-23 11:52] LABS: Basophils % (Manual) 0 % (0.0-1.8); Total Cells Counted 100
[2021-02-23 11:53] LABS: Platelet Estimate Consistent w Auto; RBC Morphology Normal
--- NOTE | 2021-02-23 12:33 | Progress Note ---
Assessment and Plan Assessment and plan: Patient is 61 years old female with history of hypertension, diabetes and DVT currently on Eliquis. Patient brought to the emergency room via EMS from home for evaluation of shortness of breath cough and generalized weakness for the last 5 days. Patient stated that she tested positive for COVID-19 on February 10 and since then she has not been feeling well. EMS stated that patient initial oxygen saturation was 75% on room air improved to 86% on a nonrebreather. Patient stated that her daughter also tested positive. 02/19/2020 Patient on 50% Ventimask Covid positive Continue steroids May DC antibiotics Respiratory assessment and treatment 02/19: Patient still hypoxic, encourage prone positioning, Pulmonary and ID consult. Will obtain CTA chest to evaluate for PE. Continue steroid therapy and oxygen therapy wean as tolerated. Continuous pulse oximeter. Plan discussed with the patient. 02/20: Patient seen and examined, remains on NRBM. awaiting CT CHEST WITH ANGIO Ordered yesterday. Encourage proning the patient says she was not proned yesterday discussed with nursing staff. Continue steroid therapy and remdesivir. Patient was seen by ID and as documented by ID"She is a candidate for Actemra based on CRp and O2 requirements. unfortunately we have not been getting procalcitonin results. -ordered Actemra once (afebrile, white count only mildly elevated in the setting of steroids)" Discussed plan of care with the nurse. Also called to updated the patients sister listed as NOK but got voice mail 02/21: Continue steroids, remdesivir, patient received 1 dose of Actemra but unable to get the second dose due to availability. CTA showed dense consolidation but no effusion and no pulmonary embolism patient does have a lower extremity DVT. Eliquis continues at full dose of 5 mg twice daily we will continue to monitor closely. Prognosis is guarded counseling for compliance for 15 minutes. 02/22: Patient clinically not improving much of switch the patient to Lovenox. Prognosis remains guarded. Continue anticoagulation due to DVT still suspicious of pulmonary embolism as a result we will obtain echocardiogram and vascular consult per pulmonary request which I agree with. I will also transfer the patient to stepdown unit for closer monitoring. 02/23: Vascular input noted agree the patient has subsegmental bibasilar pulmonary embolism but not enough to warrant intervention. Does not feel that this is contributing majorly to her hypoxia. Nevertheless we will switch patient from Eliquis to Lovenox. Continue current management with remdesivir (1) Acute respiratory failure with hypoxia Current Visit: Yes Status: Acute Plan to address problem: Patient on Xarelto was on Ventimask Rule out Covid pneumonia Respiratory assessment and treatment Supplemental oxygen as necessary Patient was very hypoxic on room air around 76% Improved with oxygen supplementation (2) SIRS (systemic inflammatory response syndrome) Current Visit: Yes Status: Acute Plan to address problem: Clinical picture consistent with [place] not done (3) Multifocal pneumonia Current Visit: Yes Status: Acute Plan to address problem: IV antibiotics in the form of azithromycin and Rocephin (4)COVID-19 virus infection Current Visit: Yes Status: Acute Plan to address problem: Coronavirus PCR test in a.m. Patient started on remdesivir ID consult requested (5) Hypertension Current Visit: Yes Status: Chronic Qualifiers: Hypertension type: primary hypertension Qualified Code(s): I10 - Essential (primary) hypertension Plan to address problem: Continue antihypertensives (6) T2DM (type 2 diabetes mellitus) Current Visit: Yes Status: Chronic Qualifiers: Diabetes mellitus halfway insulin use: unspecified halfway insulin use status Plan to address problem: Continue Metformin and coverage Check hemoglobin A1c (7) Hypernatremia (8) DVT LOWER EXT- RIGHT (9) DVT prophylaxis Current Visit: Yes Status: Acute The high probability of a clinically significant, sudden or life threatening deterioration of the [pulmonary] system(s) required my full and direct attentio n, intervention and personal management. The aggregate critical care time was [35] minutes. This time is in addition to time spent performing reported procedures but includes the following: [X] Data Review and interpretation [X] Patient assessment and monitoring of vital signs [X] Documentation [X] Medication orders and management History Interval history: Patient seen and examined remains on high flow nonrebreather this morning Hospitalist Physical - Physical exam Narrative exam: General appearance: Present: mild distress, remains on high flow and nonrebreather is - EENT Eyes: PERRL, EOM intact ENT: hearing intact, clear oral mucosa Ears: bilateral: normal - Neck Neck: supple, normal ROM - Respiratory Respiratory effort: normal Respiratory: bilateral: CTA - Breasts Breasts: normal - Cardiovascular Heart rate: 78 Rhythm: regular Heart Sounds: Present: S1 & S2. Absent: gallop, rub Extremities: pulses intact, No edema, normal color, Full ROM - Gastrointestinal General gastrointestinal: Present: soft, non-tender, non-distended, normal bowel sounds - Genitourinary Female genitourinary: normal - Integumentary Integumentary: clear, warm, dry - Musculoskeletal Musculoskeletal: 1, strength equal bilaterally - Neurologic Neurologic: moves all extremities - Psychiatric Psychiatric: memory intact, appropriate mood/affect, intact judgment & insight - Constitutional Vitals: Temp Pulse Resp BP Pulse Ox 97.9 F 80 24 120/83 90 02/23/21 08:00 02/23/21 11:23 02/23/21 11:00 02/23/21 12:00 02/23/21 12:00 General appearance: Present: mild distress, well-nourished Results - Labs CBC & Chem 7: 02/23/21 09:05 02/23/21 09:05 Labs: Laboratory Last Values WBC 19.3 K/mm3 (4.5-11.0) H 02/23/21 09:05 RBC 5.29 M/mm3 (3.65-5.03) H 02/23/21 09:05 Hgb 15.2 gm/dl (10.1-14.3) H 02/23/21 09:05 Hct 47.7 % (30.3-42.9) H D 02/23/21 09:05 MCV 90 fl (79-97) 02/23/21 09:05 MCH 29 pg (28-32) 02/23/21 09:05 MCHC 32 % (30-34) 02/23/21 09:05 RDW 14.9 % (13.2-15.2) 02/23/21 09:05 Plt Count 239 K/mm3 (140-440) 02/23/21 09:05 Add Manual Diff Complete 02/23/21 09:05 Total Counted 100 02/23/21 09:05 Seg Neuts % (Manual) 82.0 % (40.0-70.0) H 02/23/21 09:05 Band Neutrophils % 0 % 02/23/21 09:05 Lymphocytes % (Manual) 6.0 % (13.4-35.0) L 02/23/21 09:05 Reactive Lymphs % (Man) 0 % 02/23/21 09:05 Monocytes % (Manual) 5.0 % (0.0-7.3) 02/23/21 09:05 Eosinophils % (Manual) 1.0 % (0.0-4.3) 02/23/21 09:05 Basophils % (Manual) 0 % (0.0-1.8) 02/23/21 09:05 Metamyelocytes % 6.0 % 02/23/21 09:05 Myelocytes % 0 % 02/23/21 09:05 Promyelocytes % 0 % 02/23/21 09:05 Blast Cells % 0 % 02/23/21 09:05 Nucleated RBC % Not Reportable 02/23/21 09:05 Seg Neutrophils # Man 15.8 K/mm3 (1.8-7.7) H 02/23/21 09:05 Band Neutrophils # 0.0 K/mm3 02/23/21 09:05 Lymphocytes # (Manual) 1.2 K/mm3 (1.2-5.4) 02/23/21 09:05 Abs React Lymphs (Man) 0.0 K/mm3 02/23/21 09:05 Monocytes # (Manual) 1.0 K/mm3 (0.0-0.8) H 02/23/21 09:05 Eosinophils # (Manual) 0.2 K/mm3 (0.0-0.4) 02/23/21 09:05 Basophils # (Manual) 0.0 K/mm3 (0.0-0.1) 02/23/21 09:05 Metamyelocytes # 1.2 K/mm3 02/23/21 09:05 Myelocytes # 0.0 K/mm3 02/23/21 09:05 Promyelocytes # 0.0 K/mm3 02/23/21 09:05 Blast Cells # 0.0 K/mm3 02/23/21 09:05 WBC Morphology Not Reportable 02/23/21 09:05 WBC Morphology TNR 02/23/21 09:05 Hypersegmented Neuts Not Reportable 02/23/21 09:05 Hyposegmented Neuts Not Reportable 02/23/21 09:05 Hypogranular Neuts Not Reportable 02/23/21 09:05 Smudge Cells Not Reportable 02/23/21 09:05 Toxic Granulation Not Reportable 02/23/21 09:05 Toxic Vacuolation Not Reportable 02/23/21 09:05 Dohle Bodies Not Reportable 02/23/21 09:05 Pelger-Huet Anomaly Not Reportable 02/23/21 09:05 Cindy Rods Not Reportable 02/23/21 09:05 Platelet Estimate Consistent w auto 02/23/21 09:05 Clumped Platelets Not Reportable 02/23/21 09:05 Plt Clumps, EDTA Not Reportable 02/23/21 09:05 Large Platelets Not Reportable 02/23/21 09:05 Giant Platelets Not Reportable 02/23/21 09:05 Platelet Satelliting Not Reportable 02/23/21 09:05 Plt Morphology Comment Not Reportable 02/23/21 09:05 RBC Morphology Normal 02/23/21 09:05 Dimorphic RBCs Not Reportable 02/23/21 09:05 Polychromasia Not Reportable 02/23/21 09:05 Hypochromasia Not Reportable 02/23/21 09:05 Poikilocytosis Not Reportable 02/23/21 09:05 Anisocytosis Not Reportable 02/23/21 09:05 Microcytosis Not Reportable 02/23/21 09:05 Macrocytosis Not Reportable 02/23/21 09:05 Spherocytes Not Reportable 02/23/21 09:05 Pappenheimer Bodies Not Reportable 02/23/21 09:05 Sickle Cells Not Reportable 02/23/21 09:05 Target Cells Not Reportable 02/23/21 09:05 Tear Drop Cells Not Reportable 02/23/21 09:05 Ovalocytes Not Reportable 02/23/21 09:05 Helmet Cells Not Reportable 02/23/21 09:05 [place] Bodies Not Reportable 02/23/21 09:05 [place] Rings Not Reportable 02/23/21 09:05 [place] Cells Not Reportable 02/23/21 09:05 Bite Cells Not Reportable 02/23/21 09:05 Crenated Cell Not Reportable 02/23/21 09:05 Elliptocytes Not Reportable 02/23/21 09:05 Acanthocytes (Spur) Not Reportable 02/23/21 09:05 Rouleaux Not Reportable 02/23/21 09:05 Hemoglobin C Crystals Not Reportable 02/23/21 09:05 Schistocytes Not Reportable 02/23/21 09:05 Malaria parasites Not Reportable 02/23/21 09:05 [place] Bodies Not Reportable 02/23/21 09:05 Hem Pathologist Commnt No 02/23/21 09:05 PT 13.9 Sec. (12.2-14.9) 02/17/21 14:34 INR 0.96 (0.87-1.13) 02/17/21 14:34 APTT 26.4 Sec. (24.2-36.6) 02/17/21 14:34 D-Dimer > 59331 ng/mlDDU (0-234) H 02/19/21 08:43 ABG pH 7.453 pH Units (7.350-7.450) H 02/20/21 18:46 ABG pCO2 38.9 mm Hg 02/20/21 18:46 ABG pO2 55.0 mm Hg (80.0-90.0) L 02/20/21 18:46 ABG HCO3 26.6 mmol/L (20.0-26.0) H 02/20/21 18:46 ABG O2 Saturation 88.3 % (95.0-99.0) L 02/20/21 18:46 ABG Base Excess 2.6 mmol/L (-2.0-3.0) 02/20/21 18:46 ABG Hemoglobin 14.4 gm/dl (12.0-16.0) 02/20/21 18:46 ABG Carboxyhemoglobin 1.4 % (0.0-5.0) 02/20/21 18:46 ABG Methemoglobin 0.3 % (0.0-1.5) 02/20/21 18:46 Oxyhemoglobin 86.8 % (95.0-99.0) L 02/20/21 18:46 FiO2 100 % 02/20/21 18:46 Sodium 140 mmol/L (137-145) 02/23/21 09:05 Potassium 5.0 mmol/L (3.6-5.0) D 02/23/21 09:05 Chloride 100.3 mmol/L (98-107) 02/23/21 09:05 Carbon Dioxide 23 mmol/L (22-30) 02/23/21 09:05 Anion Gap 22 mmol/L 02/23/21 09:05 BUN 27 mg/dL (7-17) H 02/23/21 09:05 Creatinine 0.7 mg/dL (0.6-1.2) 02/23/21 09:05 Estimated GFR > 60 ml/min 02/23/21 09:05 BUN/Creatinine Ratio 39 % 02/23/21 09:05 Glucose 94 mg/dL (65-100) 02/23/21 09:05 POC Glucose 117 mg/dL (70-105) H 02/23/21 11:33 Lactic Acid 1.60 mmol/L (0.7-2.0) 02/17/21 18:39 Calcium 9.6 mg/dL (8.4-10.2) 02/23/21 09:05 Total Bilirubin 0.30 mg/dL (0.1-1.2) 02/22/21 04:47 Direct Bilirubin < 0.2 mg/dL (0-0.2) 02/17/21 14:34 Indirect Bilirubin 0.1 mg/dL 02/17/21 14:34 AST 24 units/L (5-40) 02/22/21 04:47 ALT 27 units/L (7-56) 02/22/21 04:47 Alkaline Phosphatase 66 units/L (35-129) 02/22/21 04:47 C-Reactive Protein 10.90 mg/dL (0.00-1.30) H 02/19/21 07:32 NT-Pro-B Natriuret Pep 86.77 pg/mL (0-900) 02/20/21 16:34 Total Protein 7.3 g/dL (6.3-8.2) 02/22/21 04:47 Albumin 3.3 g/dL (3.9-5) L 02/22/21 04:47 Albumin/Globulin Ratio 0.8 % 02/22/21 04:47 Urine Color Cassandra (Yellow) 02/18/21 Unknown Urine Turbidity Cloudy (Clear) 02/18/21 Unknown Urine pH 5.0 (5.0-7.0) 02/18/21 Unknown Ur Specific [place] 1.027 (1.003-1.030) 02/18/21 Unknown Urine Protein 100 mg/dl mg/dL (Negative) 02/18/21 Unknown Urine Glucose (UA) Neg mg/dL (Negative) 02/18/21 Unknown Urine Ketones Neg mg/dL (Negative) 02/18/21 Unknown Urine Blood Neg (Negative) 02/18/21 Unknown Urine Nitrite Neg (Negative) 02/18/21 Unknown Urine Bilirubin Neg (Negative) 02/18/21 Unknown Urine Urobilinogen < 2.0 mg/dL (<2.0) 02/18/21 Unknown Ur Leukocyte Esterase Neg (Negative) 02/18/21 Unknown Urine WBC (Auto) 7.0 /HPF (0.0-6.0) H 02/18/21 Unknown Urine RBC (Auto) 4.0 /HPF (0.0-6.0) 02/18/21 Unknown U Epithel Cells (Auto) 3.0 /HPF (0-13.0) 02/18/21 Unknown Urine Mucus 2+ /HPF 02/18/21 Unknown Coronavirus (PCR) Positive (Negative) A 02/18/21 Unknown Microbiology: Microbiology 02/17/21 14:34 Peripheral/Venous Blood Culture - Final NO GROWTH AFTER 5 DAYS 02/17/21 14:34 Peripheral/Venous Blood Culture - Final NO GROWTH AFTER 5 DAYS Head/IV: Voiding Method External Female Catheter Active Medications - Current Medications Current Medications: Generic Name Dose Route Start Last Admin Trade Name Freq PRN Reason Stop Dose Admin Acetaminophen 650 mg 02/17/21 23:58 Acetaminophen 325 Mg Tab PO Q4H PRN Pain MILD(1-3)/Fever >100.5/BROWN Amlodipine Besylate 10 mg 02/19/21 10:00 02/23/21 11:23 Amlodipine 10 Mg Tab PO 10 mg DAILY DEISY Administration Ascorbic Acid 1,000 mg 02/19/21 10:00 02/23/21 11:22 Ascorbic Acid 500 Mg Tab PO 1,000 mg BID DEISY Administration Cholecalciferol 5,000 unit 02/19/21 10:00 02/23/21 11:22 Cholecalciferol (Vit D3) 5,000 Unit Tab PO 5,000 unit DAILY DEISY Administration Dexamethasone 8 mg 02/18/21 10:00 02/23/21 11:22 Dexamethasone 4 Mg/Ml Vial IV 02/26/21 10:01 8 mg Q24H DEISY Administration Enoxaparin Sodium 90 mg 02/22/21 10:00 02/23/21 11:23 Enoxaparin 100 Mg/1 Ml Inj 1 mg/kg (90 mg) 90 mg SUB-Q Administration Q12HR [facility] Protocol Famotidine 20 mg 02/18/21 10:00 02/23/21 11:22 Famotidine 20 Mg Tab PO 20 mg BID DEISY Administration Furosemide 40 mg 02/18/21 08:00 02/23/21 08:25 Furosemide 40 Mg/4 Ml Inj IV 40 mg 0800 DEISY Administration Gabapentin 400 mg 02/19/21 04:00 02/23/21 11:22 Gabapentin 400 Mg Cap PO 400 mg BID DEISY Administration Hydromorphone HCl 0.5 mg 02/17/21 23:58 Hydromorphone 1 Mg/1 Ml Inj IV Q3H PRN Pain , Severe (7-10) REMDESIVIR 100 mg/ Sodium 250 mls @ 500 mls/hr 02/20/21 21:00 02/22/21 21:17 Chloride IV 02/23/21 21:29 500 mls/hr Q24HR@2100 DEISY Administration Ondansetron HCl 4 mg 02/17/21 23:58 Ondansetron 4 Mg/2 Ml Inj IV Q8H PRN Nausea And Vomiting Oxycodone/Acetaminophen 1 tab 02/17/21 23:58 02/20/21 22:45 Oxycodone /Acetaminophen 5-325mg Tab PO 1 tab Q6H PRN Administration Pain, Moderate (4-6) Potassium Chloride 20 meq 02/18/21 00:03 02/23/21 11:22 Potassium Chloride Er 20 Meq Tab PO 20 meq QDAY DEISY Administration Sertraline HCl 50 mg 02/19/21 10:00 02/23/21 11:22 Sertraline 50 Mg Tab PO 50 mg QDAY DEISY Administration Sodium Chloride 10 ml 02/18/21 10:00 02/23/21 11:24 Sodium Chloride 0.9% 10 Ml Flush Syringe IV 10 ml BID DEISY Administration Sodium Chloride 10 ml 02/17/21 23:58 Sodium Chloride 0.9% 10 Ml Flush Syringe IV PRN PRN LINE FLUSH Sodium Chloride 50 ml 02/19/21 04:30 02/22/21 21:18 Sodium Chloride 0.9% 50 Ml Ivpb IV 02/23/21 21:01 50 ml Q24HR@2100 DEISY Administration Zinc Sulfate 220 mg 02/19/21 10:00 02/23/21 11:24 Zinc Sulfate 220 Mg Cap PO 220 mg QDAY DEISY Administration
[2021-02-23] MEDS: SODIUM CHLORIDE 0.9% 50 ML IVPB IV SCH (21:53)
[2021-02-23] MEDS: REMDESIVIR 100 MG in SODIUM CHLORIDE 0.9% 250ML 250 ML IV SCH (21:53)
[2021-02-24 05:20] LABS: Hematocrit 41.4 % (30.3-42.9); Hemoglobin 13.3 gm/dl (10.1-14.3); Mean Corpuscular HGB Conc 32 % (30-34); Mean Corpuscular Volume 89 fl (79-97); Platelet Count 253 K/mm3 (140-440); Red Blood Count 4.65 M/mm3 (3.65-5.03)
[2021-02-24 05:33] LABS: Blood Urea Nitrogen 23 mg/dL (7-17); Calcium 8.8 mg/dL (8.4-10.2); Hemolysis Index 15
[2021-02-24 05:42] LABS: BUN/Creatinine Ratio 38
[2021-02-24] MEDS: FUROSEMIDE 40 MG/4 ML INJ IV SCH (08:53)
--- NOTE | 2021-02-24 09:28 | Progress Note ---
Assessment and Plan - Patient Problems (1) Pulmonary emboli Current Visit: Yes Status: Acute (2) Acute respiratory failure with hypoxia Current Visit: Yes Status: Acute (3) Multifocal pneumonia Current Visit: Yes Status: Acute (4) Hypertension Current Visit: Yes Status: Chronic Qualifiers: Hypertension type: primary hypertension Qualified Code(s): I10 - Essential (primary) hypertension (5) Pneumonia due to COVID-19 virus Current Visit: Yes Status: Acute (6) SIRS (systemic inflammatory response syndrome) Current Visit: Yes Status: Acute Subjective Principal diagnosis: COVID pneumonia Interval history: sl more comfortable. on hiflo and fm still w signif desat when sleeping off bipap Objective Vital Signs - 12hr 02/23/21 02/23/21 02/24/21 22:00 23:00 00:00 Temperature 97.8 F Pulse Rate 81 70 Respiratory 31 H 24 21 Rate Blood Pressure 126/76 134/83 111/67 O2 Sat by Pulse 91 91 92 Oximetry 02/24/21 02/24/21 02/24/21 00:15 01:00 01:27 Temperature Pulse Rate 69 81 72 Respiratory 13 26 H Rate Blood Pressure 128/74 128/74 O2 Sat by Pulse 92 93 Oximetry 02/24/21 02/24/21 02/24/21 02:00 03:00 04:00 Temperature 97.8 F Pulse Rate 63 64 62 Respiratory 24 17 26 H Rate Blood Pressure 133/70 137/75 132/85 O2 Sat by Pulse 98 100 92 Oximetry 02/24/21 02/24/21 02/24/21 04:05 05:00 06:00 Temperature Pulse Rate 57 L 65 66 Respiratory 25 H 16 Rate Blood Pressure 126/81 126/81 O2 Sat by Pulse 94 91 Oximetry 02/24/21 02/24/21 07:56 08:00 Temperature 98.2 F Pulse Rate 73 Respiratory 28 H Rate Blood Pressure 104/63 O2 Sat by Pulse 94 88 Oximetry Constitutional: alert, other (on hiflo) ENT: oropharynx moist Neck: supple Ascultation: Bilateral: diminished breath sounds Cardiovascular: regular rate and rhythm Gastrointestinal: normoactive bowel sounds, soft, non-tender, non-distended Integumentary: normal Extremities: no cyanosis CBC and BMP: 02/24/21 04:50 02/24/21 04:50 ABG, PT/INR, D-dimer: ABG ABG pH 7.453 pH Units (7.350-7.450) H 02/20/21 18:46 ABG pCO2 38.9 mm Hg 02/20/21 18:46 ABG pO2 55.0 mm Hg (80.0-90.0) L 02/20/21 18:46 ABG O2 Saturation 88.3 % (95.0-99.0) L 02/20/21 18:46 PT/INR, D-dimer PT 13.9 Sec. (12.2-14.9) 02/17/21 14:34 INR 0.96 (0.87-1.13) 02/17/21 14:34 D-Dimer > 12758 ng/mlDDU (0-234) H 02/19/21 08:43 Abnormal lab findings: Abnormal Labs 02/17/21 02/17/21 02/17/21 14:34 14:34 14:34 WBC 11.7 H RBC Hgb Hct 44.9 H RDW 15.6 H Seg Neuts % (Manual) Lymphocytes % (Manual) 9.0 L Monocytes % (Manual) 12.0 H Seg Neutrophils # Man 8.2 H Lymphocytes # (Manual) 1.1 L Monocytes # (Manual) 1.4 H D-Dimer ABG pH ABG pO2 ABG HCO3 ABG O2 Saturation Oxyhemoglobin Sodium Potassium 3.5 L Chloride BUN 27 H Glucose 150 H POC Glucose Lactic Acid 2.90 H* AST C-Reactive Protein NT-Pro-B Natriuret Pep Albumin Urine WBC (Auto) Coronavirus (PCR) 02/17/21 02/18/21 02/18/21 14:34 07:48 07:48 WBC 12.0 H RBC Hgb Hct RDW 15.4 H Seg Neuts % (Manual) 76.0 H Lymphocytes % (Manual) Monocytes % (Manual) Seg Neutrophils # Man 9.1 H Lymphocytes # (Manual) Monocytes # (Manual) D-Dimer ABG pH ABG pO2 ABG HCO3 ABG O2 Saturation Oxyhemoglobin Sodium Potassium Chloride BUN 36 H Glucose 133 H POC Glucose Lactic Acid AST 57 H C-Reactive Protein NT-Pro-B Natriuret Pep 1619 H Albumin 3.3 L Urine WBC (Auto) Coronavirus (PCR) 02/18/21 02/18/21 02/19/21 Unknown Unknown 07:32 WBC RBC Hgb Hct RDW Seg Neuts % (Manual) Lymphocytes % (Manual) Monocytes % (Manual) Seg Neutrophils # Man Lymphocytes # (Manual) Monocytes # (Manual) D-Dimer ABG pH ABG pO2 ABG HCO3 ABG O2 Saturation Oxyhemoglobin Sodium 148 H D Potassium Chloride BUN 41 H Glucose 123 H POC Glucose Lactic Acid AST 57 H C-Reactive Protein NT-Pro-B Natriuret Pep Albumin 3.7 L Urine WBC (Auto) 7.0 H Coronavirus (PCR) Positive A 02/19/21 02/19/21 02/20/21 07:32 08:43 05:00 WBC RBC Hgb Hct RDW Seg Neuts % (Manual) Lymphocytes % (Manual) Monocytes % (Manual) Seg Neutrophils # Man Lymphocytes # (Manual) Monocytes # (Manual) D-Dimer > 69538 H ABG pH ABG pO2 ABG HCO3 ABG O2 Saturation Oxyhemoglobin Sodium 147 H Potassium Chloride 107.6 H BUN 36 H Glucose POC Glucose Lactic Acid AST C-Reactive Protein 10.90 H NT-Pro-B Natriuret Pep Albumin 3.3 L Urine WBC (Auto) Coronavirus (PCR) 02/20/21 02/21/21 02/21/21 18:46 04:44 04:44 WBC 16.7 H RBC Hgb Hct RDW Seg Neuts % (Manual) Lymphocytes % (Manual) Monocytes % (Manual) Seg Neutrophils # Man Lymphocytes # (Manual) Monocytes # (Manual) D-Dimer ABG pH 7.453 H ABG pO2 55.0 L ABG HCO3 26.6 H ABG O2 Saturation 88.3 L Oxyhemoglobin 86.8 L Sodium Potassium Chloride BUN 26 H Glucose 111 H POC Glucose Lactic Acid AST C-Reactive Protein NT-Pro-B Natriuret Pep Albumin 3.4 L Urine WBC (Auto) Coronavirus (PCR) 02/22/21 02/23/21 02/23/21 04:47 09:05 09:05 WBC 19.3 H RBC 5.29 H Hgb 15.2 H Hct 47.7 H D RDW Seg Neuts % (Manual) 82.0 H Lymphocytes % (Manual) 6.0 L Monocytes % (Manual) Seg Neutrophils # Man 15.8 H Lymphocytes # (Manual) Monocytes # (Manual) 1.0 H D-Dimer ABG pH ABG pO2 ABG HCO3 ABG O2 Saturation Oxyhemoglobin Sodium Potassium Chloride BUN 25 H 27 H Glucose 125 H POC Glucose Lactic Acid AST C-Reactive Protein NT-Pro-B Natriuret Pep Albumin 3.3 L Urine WBC (Auto) Coronavirus (PCR) 02/23/21 02/23/21 02/24/21 11:33 16:24 04:50 WBC 14.8 H RBC Hgb Hct RDW Seg Neuts % (Manual) Lymphocytes % (Manual) Monocytes % (Manual) Seg Neutrophils # Man Lymphocytes # (Manual) Monocytes # (Manual) D-Dimer ABG pH ABG pO2 ABG HCO3 ABG O2 Saturation Oxyhemoglobin Sodium Potassium Chloride BUN Glucose POC Glucose 117 H 163 H Lactic Acid AST C-Reactive Protein NT-Pro-B Natriuret Pep Albumin Urine WBC (Auto) Coronavirus (PCR) 02/24/21 04:50 WBC RBC Hgb Hct RDW Seg Neuts % (Manual) Lymphocytes % (Manual) Monocytes % (Manual) Seg Neutrophils # Man Lymphocytes # (Manual) Monocytes # (Manual) D-Dimer ABG pH ABG pO2 ABG HCO3 ABG O2 Saturation Oxyhemoglobin Sodium Potassium Chloride BUN 23 H Glucose POC Glucose Lactic Acid AST C-Reactive Protein NT-Pro-B Natriuret Pep Albumin Urine WBC (Auto) Coronavirus (PCR)
[2021-02-24] MEDS: ASCORBIC ACID 500 MG TAB PO SCH ×2 (09:38→22:08)
[2021-02-24] MEDS: SERTRALINE 50 MG TAB PO SCH (09:38)
[2021-02-24] MEDS: ZINC SULFATE 220 MG CAP PO SCH (09:38)
[2021-02-24] MEDS: CHOLECALCIFEROL (VIT D3) 5,000 UNIT TAB PO SCH (09:38)
[2021-02-24] MEDS: amLODIPine 10 MG TAB PO SCH (09:38)
[2021-02-24] MEDS: FAMOTIDINE 20 MG TAB PO SCH ×2 (09:38→22:08)
[2021-02-24] MEDS: GABAPENTIN 400 MG CAP PO SCH ×2 (09:38→22:08)
[2021-02-24] MEDS: ENOXAPARIN 100 MG/1 ML INJ SUB-Q SCH ×2 (09:39→22:07)
[2021-02-24] MEDS: dexAMETHasone 4 MG/ML VIAL IV SCH (09:44)
[2021-02-24] MEDS: POTASSIUM CHLORIDE ER 20 MEQ TAB PO SCH (09:44)
--- NOTE | 2021-02-24 13:42 | Progress Note ---
Assessment and Plan Assessment and plan: Patient is 61 years old female with history of hypertension, diabetes and DVT currently on Eliquis. Patient brought to the emergency room via EMS from home for evaluation of shortness of breath cough and generalized weakness for the last 5 days. Patient stated that she tested positive for COVID-19 on February 10 and since then she has not been feeling well. EMS stated that patient initial oxygen saturation was 75% on room air improved to 86% on a nonrebreather. Patient stated that her daughter also tested positive. 02/19/2020 Patient on 50% Ventimask Covid positive Continue steroids May DC antibiotics Respiratory assessment and treatment 02/19: Patient still hypoxic, encourage prone positioning, Pulmonary and ID consult. Will obtain CTA chest to evaluate for PE. Continue steroid therapy and oxygen therapy wean as tolerated. Continuous pulse oximeter. Plan discussed with the patient. 02/20: Patient seen and examined, remains on NRBM. awaiting CT CHEST WITH ANGIO Ordered yesterday. Encourage proning the patient says she was not proned yesterday discussed with nursing staff. Continue steroid therapy and remdesivir. Patient was seen by ID and as documented by ID"She is a candidate for Actemra based on CRp and O2 requirements. unfortunately we have not been getting procalcitonin results. -ordered Actemra once (afebrile, white count only mildly elevated in the setting of steroids)" Discussed plan of care with the nurse. Also called to updated the patients sister listed as NOK but got voice mail 02/21: Continue steroids, remdesivir, patient received 1 dose of Actemra but unable to get the second dose due to availability. CTA showed dense consolidation but no effusion and no pulmonary embolism patient does have a lower extremity DVT. Eliquis continues at full dose of 5 mg twice daily we will continue to monitor closely. Prognosis is guarded counseling for compliance for 15 minutes. 02/22: Patient clinically not improving much of switch the patient to Lovenox. Prognosis remains guarded. Continue anticoagulation due to DVT still suspicious of pulmonary embolism as a result we will obtain echocardiogram and vascular consult per pulmonary request which I agree with. I will also transfer the patient to stepdown unit for closer monitoring. 02/23: Vascular input noted agree the patient has subsegmental bibasilar pulmonary embolism but not enough to warrant intervention. Does not feel that this is contributing majority to her hypoxia. Nevertheless we will switch patient from Eliquis to Lovenox. Continue current management with remdesivir 02/24: Patient seen and examined, remains on anticoagulation, continue remedsivir and steroids. prone as tolerated, will give additional lasix today. Guarded prognosis. (1) Acute respiratory failure with hypoxia Current Visit: Yes Status: Acute Plan to address problem: Patient on Xarelto was on Ventimask Rule out Covid pneumonia Respiratory assessment and treatment Supplemental oxygen as necessary Patient was very hypoxic on room air around 76% Improved with oxygen supplementation (2) SIRS (systemic inflammatory response syndrome) Current Visit: Yes Status: Acute Plan to address problem: Clinical picture consistent with Sirs Markers not done (3) Multifocal pneumonia Current Visit: Yes Status: Acute Plan to address problem: IV antibiotics in the form of azithromycin and Rocephin (4)COVID-19 virus infection Current Visit: Yes Status: Acute Plan to address problem: Coronavirus PCR test in a.m. 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 The aggregate critical care time was [35] minutes. This time is in addition to time spent performing reported procedures but includes the following: [X] Data Review and interpretation [X] Patient assessment and monitoring of vital signs [X] Documentation [X] Medication orders and management History Interval history: Patient seen and examined remains on high flow nonrebreather this morning, still desaturates with every exertional activity Hospitalist Physical - Physical exam Narrative exam: General appearance: Present: mild distress, remains on high flow and nonrebrea ther is - EENT Eyes: PERRL, EOM intact ENT: hearing intact, clear oral mucosa Ears: bilateral: normal - Neck Neck: supple, normal ROM - Respiratory Respiratory effort: normal Respiratory: bilateral: CTA - Breasts Breasts: normal - Cardiovascular Heart rate: 78 Rhythm: regular Heart Sounds: Present: S1 & S2. Absent: gallop, rub Extremities: pulses intact, No edema, normal color, Full ROM - Gastrointestinal General gastrointestinal: Present: soft, non-tender, non-distended, normal bowel sounds - Genitourinary Female genitourinary: normal - Integumentary Integumentary: clear, warm, dry - Musculoskeletal Musculoskeletal: 1, strength equal bilaterally - Neurologic Neurologic: moves all extremities - Psychiatric Psychiatric: memory intact, appropriate mood/affect, intact judgment & insight - Constitutional Vitals: Temp Pulse Resp BP Pulse Ox 98.7 F 77 25 H 130/82 92 02/24/21 12:00 02/24/21 12:15 02/24/21 12:15 02/24/21 12:00 02/24/21 12:15 General appearance: Present: mild distress, well-nourished Results - Labs CBC & Chem 7: 02/24/21 04:50 02/24/21 04:50 Labs: Laboratory Last Values WBC 14.8 K/mm3 (4.5-11.0) H 02/24/21 04:50 RBC 4.65 M/mm3 (3.65-5.03) 02/24/21 04:50 Hgb 13.3 gm/dl (10.1-14.3) 02/24/21 04:50 Hct 41.4 % (30.3-42.9) D 02/24/21 04:50 MCV 89 fl (79-97) 02/24/21 04:50 MCH 29 pg (28-32) 02/24/21 04:50 MCHC 32 % (30-34) 02/24/21 04:50 RDW 15.0 % (13.2-15.2) 02/24/21 04:50 Plt Count 253 K/mm3 (140-440) 02/24/21 04:50 Add Manual Diff Complete 02/23/21 09:05 Total Counted 100 02/23/21 09:05 Seg Neuts % (Manual) 82.0 % (40.0-70.0) H 02/23/21 09:05 Band Neutrophils % 0 % 02/23/21 09:05 Lymphocytes % (Manual) 6.0 % (13.4-35.0) L 02/23/21 09:05 Reactive Lymphs % (Man) 0 % 02/23/21 09:05 Monocytes % (Manual) 5.0 % (0.0-7.3) 02/23/21 09:05 Eosinophils % (Manual) 1.0 % (0.0-4.3) 02/23/21 09:05 Basophils % (Manual) 0 % (0.0-1.8) 02/23/21 09:05 Metamyelocytes % 6.0 % 02/23/21 09:05 Myelocytes % 0 % 02/23/21 09:05 Promyelocytes % 0 % 02/23/21 09:05 Blast Cells % 0 % 02/23/21 09:05 Nucleated RBC % Not Reportable 02/23/21 09:05 Seg Neutrophils # Man 15.8 K/mm3 (1.8-7.7) H 02/23/21 09:05 Band Neutrophils # 0.0 K/mm3 02/23/21 09:05 Lymphocytes # (Manual) 1.2 K/mm3 (1.2-5.4) 02/23/21 09:05 Abs React Lymphs (Man) 0.0 K/mm3 02/23/21 09:05 Monocytes # (Manual) 1.0 K/mm3 (0.0-0.8) H 02/23/21 09:05 Eosinophils # (Manual) 0.2 K/mm3 (0.0-0.4) 02/23/21 09:05 Basophils # (Manual) 0.0 K/mm3 (0.0-0.1) 02/23/21 09:05 Metamyelocytes # 1.2 K/mm3 02/23/21 09:05 Myelocytes # 0.0 K/mm3 02/23/21 09:05 Promyelocytes # 0.0 K/mm3 02/23/21 09:05 Blast Cells # 0.0 K/mm3 02/23/21 09:05 WBC Morphology Not Reportable 02/23/21 09:05 WBC Morphology TNR 02/23/21 09:05 Hypersegmented Neuts Not Reportable 02/23/21 09:05 Hyposegmented Neuts Not Reportable 02/23/21 09:05 Hypogranular Neuts Not Reportable 02/23/21 09:05 Smudge Cells Not Reportable 02/23/21 09:05 Toxic Granulation Not Reportable 02/23/21 09:05 Toxic Vacuolation Not Reportable 02/23/21 09:05 Dohle Bodies Not Reportable 02/23/21 09:05 Pelger-Huet Anomaly Not Reportable 02/23/21 09:05 Cindy Rods Not Reportable 02/23/21 09:05 Platelet Estimate Consistent w auto 02/23/21 09:05 Clumped Platelets Not Reportable 02/23/21 09:05 Plt Clumps, EDTA Not Reportable 02/23/21 09:05 Large Platelets Not Reportable 02/23/21 09:05 Giant Platelets Not Reportable 02/23/21 09:05 Platelet Satelliting Not Reportable 02/23/21 09:05 Plt Morphology Comment Not Reportable 02/23/21 09:05 RBC Morphology Normal 02/23/21 09:05 Dimorphic RBCs Not Reportable 02/23/21 09:05 Polychromasia Not Reportable 02/23/21 09:05 Hypochromasia Not Reportable 02/23/21 09:05 Poikilocytosis Not Reportable 02/23/21 09:05 Anisocytosis Not Reportable 02/23/21 09:05 Microcytosis Not Reportable 02/23/21 09:05 Macrocytosis Not Reportable 02/23/21 09:05 Spherocytes Not Reportable 02/23/21 09:05 Pappenheimer Bodies Not Reportable 02/23/21 09:05 Sickle Cells Not Reportable 02/23/21 09:05 Target Cells Not Reportable 02/23/21 09:05 Tear Drop Cells Not Reportable 02/23/21 09:05 Ovalocytes Not Reportable 02/23/21 09:05 Helmet Cells Not Reportable 02/23/21 09:05 [place]-Champion Bodies Not Reportable 02/23/21 09:05 [place] Rings Not Reportable 02/23/21 09:05 [place] Cells Not Reportable 02/23/21 09:05 Bite Cells Not Reportable 02/23/21 09:05 Crenated Cell Not Reportable 02/23/21 09:05 Elliptocytes Not Reportable 02/23/21 09:05 Acanthocytes (Spur) Not Reportable 02/23/21 09:05 Rouleaux Not Reportable 02/23/21 09:05 Hemoglobin C Crystals Not Reportable 02/23/21 09:05 Schistocytes Not Reportable 02/23/21 09:05 Malaria parasites Not Reportable 02/23/21 09:05 [place] Pablo Bodies Not Reportable 02/23/21 09:05 Hem Pathologist Commnt No 02/23/21 09:05 PT 13.9 Sec. (12.2-14.9) 02/17/21 14:34 INR 0.96 (0.87-1.13) 02/17/21 14:34 APTT 26.4 Sec. (24.2-36.6) 02/17/21 14:34 D-Dimer > 64524 ng/mlDDU (0-234) H 02/19/21 08:43 ABG pH 7.453 pH Units (7.350-7.450) H 02/20/21 18:46 ABG pCO2 38.9 mm Hg 02/20/21 18:46 ABG pO2 55.0 mm Hg (80.0-90.0) L 02/20/21 18:46 ABG HCO3 26.6 mmol/L (20.0-26.0) H 02/20/21 18:46 ABG O2 Saturation 88.3 % (95.0-99.0) L 02/20/21 18:46 ABG Base Excess 2.6 mmol/L (-2.0-3.0) 02/20/21 18:46 ABG Hemoglobin 14.4 gm/dl (12.0-16.0) 02/20/21 18:46 ABG Carboxyhemoglobin 1.4 % (0.0-5.0) 02/20/21 18:46 ABG Methemoglobin 0.3 % (0.0-1.5) 02/20/21 18:46 Oxyhemoglobin 86.8 % (95.0-99.0) L 02/20/21 18:46 FiO2 100 % 02/20/21 18:46 Sodium 138 mmol/L (137-145) 02/24/21 04:50 Potassium 4.6 mmol/L (3.6-5.0) 02/24/21 04:50 Chloride 100.4 mmol/L (98-107) 02/24/21 04:50 Carbon Dioxide 26 mmol/L (22-30) 02/24/21 04:50 Anion Gap 16 mmol/L 02/24/21 04:50 BUN 23 mg/dL (7-17) H 02/24/21 04:50 Creatinine 0.6 mg/dL (0.6-1.2) 02/24/21 04:50 Estimated GFR > 60 ml/min 02/24/21 04:50 BUN/Creatinine Ratio 38 % 02/24/21 04:50 Glucose 100 mg/dL (65-100) 02/24/21 04:50 POC Glucose 163 mg/dL (70-105) H 02/23/21 16:24 Lactic Acid 1.60 mmol/L (0.7-2.0) 02/17/21 18:39 Calcium 8.8 mg/dL (8.4-10.2) 02/24/21 04:50 Total Bilirubin 0.30 mg/dL (0.1-1.2) 02/22/21 04:47 Direct Bilirubin < 0.2 mg/dL (0-0.2) 02/17/21 14:34 Indirect Bilirubin 0.1 mg/dL 02/17/21 14:34 AST 24 units/L (5-40) 02/22/21 04:47 ALT 27 units/L (7-56) 02/22/21 04:47 Alkaline Phosphatase 66 units/L (35-129) 02/22/21 04:47 C-Reactive Protein 10.90 mg/dL (0.00-1.30) H 02/19/21 07:32 NT-Pro-B Natriuret Pep 86.77 pg/mL (0-900) 02/20/21 16:34 Total Protein 7.3 g/dL (6.3-8.2) 02/22/21 04:47 Albumin 3.3 g/dL (3.9-5) L 02/22/21 04:47 Albumin/Globulin Ratio 0.8 % 02/22/21 04:47 Urine Color Cassandra (Yellow) 02/18/21 Unknown Urine Turbidity Cloudy (Clear) 02/18/21 Unknown Urine pH 5.0 (5.0-7.0) 02/18/21 Unknown Ur Specific [place] 1.027 (1.003-1.030) 02/18/21 Unknown Urine Protein 100 mg/dl mg/dL (Negative) 02/18/21 Unknown Urine Glucose (UA) Neg mg/dL (Negative) 02/18/21 Unknown Urine Ketones Neg mg/dL (Negative) 02/18/21 Unknown Urine Blood Neg (Negative) 02/18/21 Unknown Urine Nitrite Neg (Negative) 02/18/21 Unknown Urine Bilirubin Neg (Negative) 02/18/21 Unknown Urine Urobilinogen < 2.0 mg/dL (<2.0) 02/18/21 Unknown Ur Leukocyte Esterase Neg (Negative) 02/18/21 Unknown Urine WBC (Auto) 7.0 /HPF (0.0-6.0) H 02/18/21 Unknown Urine RBC (Auto) 4.0 /HPF (0.0-6.0) 02/18/21 Unknown U Epithel Cells (Auto) 3.0 /HPF (0-13.0) 02/18/21 Unknown Urine Mucus 2+ /HPF 02/18/21 Unknown Coronavirus (PCR) Positive (Negative) A 02/18/21 Unknown Head/IV: Voiding Method External Female Catheter Active Medications - Current Medications Current Medications: Generic Name Dose Route Start Last Admin Trade Name Freq PRN Reason Stop Dose Admin Acetaminophen 650 mg 02/17/21 23:58 Acetaminophen 325 Mg Tab PO Q4H PRN Pain MILD(1-3)/Fever >100.5/BROWN Amlodipine Besylate 10 mg 02/19/21 10:00 02/24/21 09:38 Amlodipine 10 Mg Tab PO 10 mg DAILY [facility] Administration Ascorbic Acid 1,000 mg 02/19/21 10:00 02/24/21 09:38 Ascorbic Acid 500 Mg Tab PO 1,000 mg BID DEISY Administration Cholecalciferol 5,000 unit 02/19/21 10:00 02/24/21 09:38 Cholecalciferol (Vit D3) 5,000 Unit Tab PO 5,000 unit DAILY [facility] Administration Dexamethasone 8 mg 02/18/21 10:00 02/24/21 09:44 Dexamethasone 4 Mg/Ml Vial IV 02/26/21 10:01 8 mg Q24H [facility] Administration Enoxaparin Sodium 90 mg 02/22/21 10:00 02/24/21 09:39 Enoxaparin 100 Mg/1 Ml Inj 1 mg/kg (90 mg) 90 mg SUB-Q Administration Q12HR [facility] Protocol Famotidine 20 mg 02/18/21 10:00 02/24/21 09:38 Famotidine 20 Mg Tab PO 20 mg BID DEISY Administration Furosemide 40 mg 02/18/21 08:00 02/24/21 08:53 Furosemide 40 Mg/4 Ml Inj IV 40 mg 0800 DEISY Administration Gabapentin 400 mg 02/19/21 04:00 02/24/21 09:38 Gabapentin 400 Mg Cap PO 400 mg BID DEISY Administration Hydromorphone HCl 0.5 mg 02/17/21 23:58 Hydromorphone 1 Mg/1 Ml Inj IV Q3H PRN Pain , Severe (7-10) Ondansetron HCl 4 mg 02/17/21 23:58 Ondansetron 4 Mg/2 Ml Inj IV Q8H PRN Nausea And Vomiting Oxycodone/Acetaminophen 1 tab 02/17/21 23:58 02/20/21 22:45 Oxycodone /Acetaminophen 5-325mg Tab PO 1 tab Q6H PRN Administration Pain, Moderate (4-6) Potassium Chloride 20 meq 02/18/21 00:03 02/24/21 09:44 Potassium Chloride Er 20 Meq Tab PO 20 meq QDAY DEISY Administration Sertraline HCl 50 mg 02/19/21 10:00 02/24/21 09:38 Sertraline 50 Mg Tab PO 50 mg QDAY DEISY Administration Sodium Chloride 10 ml 02/18/21 10:00 02/23/21 21:54 Sodium Chloride 0.9% 10 Ml Flush Syringe IV 10 ml BID DEISY Administration Sodium Chloride 10 ml 02/17/21 23:58 Sodium Chloride 0.9% 10 Ml Flush Syringe IV PRN PRN LINE FLUSH Zinc Sulfate 220 mg 02/19/21 10:00 02/24/21 09:38 Zinc Sulfate 220 Mg Cap PO 220 mg QDAY DEISY Administration
[2021-02-25] MEDS: oxyCODONE /ACETAMINOPHEN 5-325MG TAB PO PRN (04:41)
[2021-02-25] MEDS: ACETAMINOPHEN 325 MG TAB PO PRN ×2 (04:41→21:38)
[2021-02-25] MEDS: CHOLECALCIFEROL (VIT D3) 5,000 UNIT TAB PO SCH (09:48)
[2021-02-25] MEDS: GABAPENTIN 400 MG CAP PO SCH ×2 (09:48→21:34)
[2021-02-25] MEDS: FUROSEMIDE 40 MG/4 ML INJ IV SCH (09:48)
[2021-02-25] MEDS: amLODIPine 10 MG TAB PO SCH (09:49)
[2021-02-25] MEDS: ASCORBIC ACID 500 MG TAB PO SCH ×2 (09:49→21:38)
[2021-02-25] MEDS: FAMOTIDINE 20 MG TAB PO SCH ×2 (09:49→21:34)
[2021-02-25] MEDS: SERTRALINE 50 MG TAB PO SCH (09:49)
[2021-02-25] MEDS: dexAMETHasone 4 MG/ML VIAL IV SCH (09:49)
[2021-02-25] MEDS: ZINC SULFATE 220 MG CAP PO SCH (09:49)
[2021-02-25] MEDS: ENOXAPARIN 100 MG/1 ML INJ SUB-Q SCH ×2 (09:50→21:38)
--- NOTE | 2021-02-25 12:32 | Progress Note ---
Assessment and Plan Cultures: Blood culture no growth so far. A/P: 61 yo F with HTN, DM2 admitted with: #Severe COVID-19 pneumonia: Patient presented with a week of symptoms, chest x- ray with diffuse bilateral infiltrates, admission O2 sats decreased on room air. Inflammatory markers elevated. #Acute hypoxemic respiratory failure: Likely secondary to COVID-19 infection. Currently on HFNC #Diabetes: tight glycemic control for best outcomes. #Acute DVT: in right leg with subsegmental PE Recommendations: -complete 10 days of steroids -completed remdesivir -monitor inflammatory markers - Ddimer, CRP, LDH -Completed 5 days empiric antibiotics. -per pharmacy note s/p Actemra on 02/19/2021 (it seems received 1 dose, not but complete dose due to availability) -Poor prognosis Jamila Cameron MD, FACP, [facility] O: [phone] F: [phone] Subjective Date of service: 02/25/21 Principal diagnosis: COVID pneumonia Interval history: Afebrile. On HFNC + NRB. Hypoxic. Denies any complaints. Objective - Exam Narrative Exam: Physical Exam: Constitutional: Alert, cooperative. No acute distress Head, Ears, Nose: Normocephalic, atraumatic. External ears, nose normal Eyes: Conjunctivae/corneas clear. No icterus. No ptosis. Neck: Supple, no meningeal signs Oral: Deferred due to COVID-19 Cardiovascular: S1, S2 + Respiratory: AE fair bilaterally GI: Soft, non-tender; bowel sounds normal. No peritoneal signs Musculoskeletal: No pedal edema, no cyanosis. Skin: No rash or abscess Hem/Lymphatic: No palpable cervical or supraclavicular nodes. No lymphangitis Psych: No agitation Neurological: Awake, alert - Constitutional Vitals: Vital Signs Temp Pulse Resp BP Pulse Ox 97.5 F L 81 13 115/71 85 02/25/21 04:00 02/25/21 12:09 02/25/21 12:01 02/25/21 12:01 02/25/21 12:01 Temperature -Last 24 Hours Temperature 97.5 F Temperature 97.9 F Temperature 98.2 F Temperature 98.5 F - Labs CBC & Chem 7: 02/24/21 04:50 02/24/21 04:50
--- NOTE | 2021-02-25 13:47 | Progress Note ---
Assessment and Plan 61 y/o female with acute respiratory failure secondary to COVID 19 pneumonia. 02/25/21: Long discussion at bedside with patient, whom per her, she has discussed this with her daughter. She does no want an endotracheal tube. She does not want chest compression and she does not want shocks. I did not ask about vasopressors. The patient is awake and alert and oriented. This needs to be addressed by primary team as well an if confirmed, I have no problem with cosigning AND order. Continue supportive measures for now. Guarded to poor prognosis. 02/21/21: BNP normal. Still would attempt to achieve net negative fluid balance daily. Continue Remdesivir and steroids. Prone if patient willing. Follow up CTA results. Discussed with IMS, may change anticoagulation but awaiting official ready on CTA. Guareded prognosis. 02/20/21: Follow up CTA results. Will send BNP. Continue steroids and Remdesivir. Guarded prognosis. Prone if able, very pertinent to do this. 1. self proning as tolerated during the day and prone at night while sleeping 2. Steroids and Remdesivir 3. Daily net negative volume state 4. Consider checking BNP and echo to make sure no edema on this film 5. Agree with empiric anticoagulation given elevated D-Dimer Guarded prognosis. Will continue to follow. Subjective Date of service: 02/25/21 Principal diagnosis: COVID pneumonia Interval history: Awake and alert. On HFNC and NRB. Sat is 93. Discussed code status at bedside. Objective Vital Signs - 12hr 02/25/21 02/25/21 02/25/21 02:00 02:02 03:00 Temperature Pulse Rate 67 69 Pulse Rate [ Right Radial] Respiratory 14 16 Rate Blood Pressure 114/82 124/75 O2 Sat by Pulse 87 90 83 L Oximetry 02/25/21 02/25/21 02/25/21 04:00 04:01 04:35 Temperature 97.5 F L Pulse Rate 68 72 Pulse Rate [ Right Radial] Respiratory 14 Rate Blood Pressure 79/51 O2 Sat by Pulse 89 Oximetry 02/25/21 02/25/21 02/25/21 04:41 05:01 05:41 Temperature Pulse Rate 73 Pulse Rate [ Right Radial] Respiratory 15 25 H 20 Rate Blood Pressure 130/82 O2 Sat by Pulse 84 Oximetry 02/25/21 02/25/21 02/25/21 06:00 07:00 08:00 Temperature Pulse Rate 68 70 Pulse Rate [ 67 Right Radial] Respiratory 11 L 16 16 Rate Blood Pressure 108/71 106/66 O2 Sat by Pulse 90 82 L 91 Oximetry 02/25/21 02/25/21 02/25/21 08:01 08:20 09:01 Temperature Pulse Rate 69 67 71 Pulse Rate [ Right Radial] Respiratory 26 H Rate Blood Pressure 104/56 113/65 O2 Sat by Pulse 86 90 Oximetry 02/25/21 02/25/21 02/25/21 09:49 10:01 11:00 Temperature Pulse Rate 79 82 80 Pulse Rate [ Right Radial] Respiratory Rate Blood Pressure 113/65 108/64 115/71 O2 Sat by Pulse 88 90 Oximetry 02/25/21 02/25/21 02/25/21 12:00 12:01 12:09 Temperature Pulse Rate 85 81 Pulse Rate [ 81 Right Radial] Respiratory 24 13 Rate Blood Pressure 115/71 O2 Sat by Pulse 90 85 Oximetry 02/25/21 13:00 Temperature Pulse Rate 78 Pulse Rate [ Right Radial] Respiratory 21 Rate Blood Pressure 110/77 O2 Sat by Pulse 90 Oximetry Constitutional: alert, other (on hiflo) ENT: oropharynx moist Neck: supple Ascultation: Bilateral: diminished breath sounds Cardiovascular: regular rate and rhythm Gastrointestinal: normoactive bowel sounds, soft, non-tender, non-distended Integumentary: normal Extremities: no cyanosis CBC and BMP: 02/24/21 04:50 02/24/21 04:50 ABG, PT/INR, D-dimer: ABG ABG pH 7.453 pH Units (7.350-7.450) H 02/20/21 18:46 ABG pCO2 38.9 mm Hg 02/20/21 18:46 ABG pO2 55.0 mm Hg (80.0-90.0) L 02/20/21 18:46 ABG O2 Saturation 88.3 % (95.0-99.0) L 02/20/21 18:46 PT/INR, D-dimer PT 13.9 Sec. (12.2-14.9) 02/17/21 14:34 INR 0.96 (0.87-1.13) 02/17/21 14:34 D-Dimer > 80432 ng/mlDDU (0-234) H 02/19/21 08:43 Abnormal lab findings: Abnormal Labs 02/17/21 02/17/21 02/17/21 14:34 14:34 14:34 WBC 11.7 H RBC Hgb Hct 44.9 H RDW 15.6 H Seg Neuts % (Manual) Lymphocytes % (Manual) 9.0 L Monocytes % (Manual) 12.0 H Seg Neutrophils # Man 8.2 H Lymphocytes # (Manual) 1.1 L Monocytes # (Manual) 1.4 H D-Dimer ABG pH ABG pO2 ABG HCO3 ABG O2 Saturation Oxyhemoglobin Sodium Potassium 3.5 L Chloride BUN 27 H Glucose 150 H POC Glucose Lactic Acid 2.90 H* AST C-Reactive Protein NT-Pro-B Natriuret Pep Albumin Urine WBC (Auto) Coronavirus (PCR) 02/17/21 02/18/21 02/18/21 14:34 07:48 07:48 WBC 12.0 H RBC Hgb Hct RDW 15.4 H Seg Neuts % (Manual) 76.0 H Lymphocytes % (Manual) Monocytes % (Manual) Seg Neutrophils # Man 9.1 H Lymphocytes # (Manual) Monocytes # (Manual) D-Dimer ABG pH ABG pO2 ABG HCO3 ABG O2 Saturation Oxyhemoglobin Sodium Potassium Chloride BUN 36 H Glucose 133 H POC Glucose Lactic Acid AST 57 H C-Reactive Protein NT-Pro-B Natriuret Pep 1619 H Albumin 3.3 L Urine WBC (Auto) Coronavirus (PCR) 02/18/21 02/18/21 02/19/21 Unknown Unknown 07:32 WBC RBC Hgb Hct RDW Seg Neuts % (Manual) Lymphocytes % (Manual) Monocytes % (Manual) Seg Neutrophils # Man Lymphocytes # (Manual) Monocytes # (Manual) D-Dimer ABG pH ABG pO2 ABG HCO3 ABG O2 Saturation Oxyhemoglobin Sodium 148 H D Potassium Chloride BUN 41 H Glucose 123 H POC Glucose Lactic Acid AST 57 H C-Reactive Protein NT-Pro-B Natriuret Pep Albumin 3.7 L Urine WBC (Auto) 7.0 H Coronavirus (PCR) Positive A 02/19/21 02/19/21 02/20/21 07:32 08:43 05:00 WBC RBC Hgb Hct RDW Seg Neuts % (Manual) Lymphocytes % (Manual) Monocytes % (Manual) Seg Neutrophils # Man Lymphocytes # (Manual) Monocytes # (Manual) D-Dimer > 77040 H ABG pH ABG pO2 ABG HCO3 ABG O2 Saturation Oxyhemoglobin Sodium 147 H Potassium Chloride 107.6 H BUN 36 H Glucose POC Glucose Lactic Acid AST C-Reactive Protein 10.90 H NT-Pro-B Natriuret Pep Albumin 3.3 L Urine WBC (Auto) Coronavirus (PCR) 02/20/21 02/21/21 02/21/21 18:46 04:44 04:44 WBC 16.7 H RBC Hgb Hct RDW Seg Neuts % (Manual) Lymphocytes % (Manual) Monocytes % (Manual) Seg Neutrophils # Man Lymphocytes # (Manual) Monocytes # (Manual) D-Dimer ABG pH 7.453 H ABG pO2 55.0 L ABG HCO3 26.6 H ABG O2 Saturation 88.3 L Oxyhemoglobin 86.8 L Sodium Potassium Chloride BUN 26 H Glucose 111 H POC Glucose Lactic Acid AST C-Reactive Protein NT-Pro-B Natriuret Pep Albumin 3.4 L Urine WBC (Auto) Coronavirus (PCR) 02/22/21 02/23/21 02/23/21 04:47 09:05 09:05 WBC 19.3 H RBC 5.29 H Hgb 15.2 H Hct 47.7 H D RDW Seg Neuts % (Manual) 82.0 H Lymphocytes % (Manual) 6.0 L Monocytes % (Manual) Seg Neutrophils # Man 15.8 H Lymphocytes # (Manual) Monocytes # (Manual) 1.0 H D-Dimer ABG pH ABG pO2 ABG HCO3 ABG O2 Saturation Oxyhemoglobin Sodium Potassium Chloride BUN 25 H 27 H Glucose 125 H POC Glucose Lactic Acid AST C-Reactive Protein NT-Pro-B Natriuret Pep Albumin 3.3 L Urine WBC (Auto) Coronavirus (PCR) 02/23/21 02/23/21 02/24/21 11:33 16:24 04:50 WBC 14.8 H RBC Hgb Hct RDW Seg Neuts % (Manual) Lymphocytes % (Manual) Monocytes % (Manual) Seg Neutrophils # Man Lymphocytes # (Manual) Monocytes # (Manual) D-Dimer ABG pH ABG pO2 ABG HCO3 ABG O2 Saturation Oxyhemoglobin Sodium Potassium Chloride BUN Glucose POC Glucose 117 H 163 H Lactic Acid AST C-Reactive Protein NT-Pro-B Natriuret Pep Albumin Urine WBC (Auto) Coronavirus (PCR) 02/24/21 04:50 WBC RBC Hgb Hct RDW Seg Neuts % (Manual) Lymphocytes % (Manual) Monocytes % (Manual) Seg Neutrophils # Man Lymphocytes # (Manual) Monocytes # (Manual) D-Dimer ABG pH ABG pO2 ABG HCO3 ABG O2 Saturation Oxyhemoglobin Sodium Potassium Chloride BUN 23 H Glucose POC Glucose Lactic Acid AST C-Reactive Protein NT-Pro-B Natriuret Pep Albumin Urine WBC (Auto) Coronavirus (PCR)
--- NOTE | 2021-02-25 15:58 | Progress Note ---
Subjective Date of service: 02/25/21 Principal diagnosis: COVID pneumonia Interval history: Patient is 61 years old female with history of hypertension, diabetes and DVT currently on Eliquis. Patient brought to the emergency room via EMS from home for evaluation of shortness of breath cough and generalized weakness for the last 5 days. Patient stated that she tested positive for COVID-19 on February 10 and since then she has not been feeling well. EMS stated that patient initial oxygen saturation was 75% on room air improved to 86% on a nonrebreather. Patient stated that her daughter also tested positive. 02/19/2020 Patient on 50% Ventimask Covid positive Continue steroids May DC antibiotics Respiratory assessment and treatment 02/19: Patient still hypoxic, encourage prone positioning, Pulmonary and ID consult. Will obtain CTA chest to evaluate for PE. Continue steroid therapy and oxygen therapy wean as tolerated. Continuous pulse oximeter. Plan discussed with the patient. 02/20: Patient seen and examined, remains on NRBM. awaiting CT CHEST WITH ANGIO Ordered yesterday. Encourage proning the patient says she was not proned yesterday discussed with nursing staff. Continue steroid therapy and remdesivir. Patient was seen by ID and as documented by ID"She is a candidate for Actemra based on CRp and O2 requirements. unfortunately we have not been getting procalcitonin results. -ordered Actemra once (afebrile, white count only mildly elevated in the setting of steroids)" Discussed plan of care with the nurse. Also called to updated the patients sister listed as NOK but got voice mail 02/21: Continue steroids, remdesivir, patient received 1 dose of Actemra but unable to get the second dose due to availability. CTA showed dense consolidation but no effusion and no pulmonary embolism patient does have a lower extremity DVT. Eliquis continues at full dose of 5 mg twice daily we will continue to monitor closely. Prognosis is guarded counseling for compliance for 15 minutes. 02/22: Patient clinically not improving much of switch the patient to Lovenox. Prognosis remains guarded. Continue anticoagulation due to DVT still suspicious of pulmonary embolism as a result we will obtain echocardiogram and vascular consult per pulmonary request which I agree with. I will also transfer the patient to stepdown unit for closer monitoring. 02/23: Vascular input noted agree the patient has subsegmental bibasilar pulmonary embolism but not enough to warrant intervention. Does not feel that this is contributing majority to her hypoxia. Nevertheless we will switch patient from Eliquis to Lovenox. Continue current management with remdesivir 02/24: Patient seen and examined, remains on anticoagulation, continue remedsivir and steroids. prone as tolerated, will give additional lasix today. Guarded prognosis. 02/25 A&O x 3, C/O mild cough with mucoid expectorant. Denies CP or shortness of breath. Remains on HFNC. pulmonary note and lab results reviewed (1) Acute respiratory failure with hypoxia Current Visit: Yes Status: Acute Plan to address problem: 2/2 covid PNA she is on HFNC at 40L and 100% Fio2 O2 sat 90% pulmonary following cont. Decadron - stop date 02/26 wean as tolerated (2) SIRS (systemic inflammatory response syndrome) Current Visit: Yes Status: Acute Plan to address problem: Clinical picture consistent with Sirs (3) Multifocal pneumonia Current Visit: Yes Status: Acute Plan to address problem: 2/2 covid 19 off Abx (4)COVID-19 virus infection Current Visit: Yes Status: Acute Plan to address problem: completed remdesivir cont. decadron - stop date 02/26 proning as tolerated (5) Hypertension Current Visit: Yes Status: Chronic Qualifiers: Hypertension type: primary hypertension Qualified Code(s): I10 - Essential (primary) hypertension Plan to address problem: Fair cont. present medications (6) T2DM (type 2 diabetes mellitus) Current Visit: Yes Status: Chronic Qualifiers: Diabetes mellitus alf insulin use: unspecified alf insulin use status Plan to address problem: Continue Metformin and ISS coverage (7) Hypernatremia resolved (8) DVT LOWER EXT- RIGHT / and sub segmental PE cont. therapeutic lovenox (9) DVT prophylaxis Current Visit: Yes Status: Acute The high probability of a clinically significant, sudden or life threatening deterioration of the [pulmonary] system(s) required my full and direct attention, intervention and personal management. The aggregate critical care time was [35] minutes. This time is in addition to time spent performing reported procedures but includes the following: [X] Data Review and interpretation [X] Patient assessment and monitoring of vital signs [X] Documentation [X] Medication orders and management Objective - Constitutional Vitals: Vital Signs - 12hr 02/25/21 02/25/21 02/25/21 04:00 04:01 04:35 Temperature 97.5 F L Pulse Rate 68 72 Pulse Rate [ Right Radial] Respiratory 14 Rate Blood Pressure 79/51 O2 Sat by Pulse 89 Oximetry 02/25/21 02/25/21 02/25/21 04:41 05:01 05:41 Temperature Pulse Rate 73 Pulse Rate [ Right Radial] Respiratory 15 25 H 20 Rate Blood Pressure 130/82 O2 Sat by Pulse 84 Oximetry 02/25/21 02/25/21 02/25/21 06:00 07:00 08:00 Temperature Pulse Rate 68 70 Pulse Rate [ 67 Right Radial] Respiratory 11 L 16 16 Rate Blood Pressure 108/71 106/66 O2 Sat by Pulse 90 82 L 91 Oximetry 02/25/21 02/25/21 02/25/21 08:01 08:20 09:01 Temperature Pulse Rate 69 67 71 Pulse Rate [ Right Radial] Respiratory 26 H Rate Blood Pressure 104/56 113/65 O2 Sat by Pulse 86 90 Oximetry 02/25/21 02/25/21 02/25/21 09:49 10:01 11:00 Temperature Pulse Rate 79 82 80 Pulse Rate [ Right Radial] Respiratory Rate Blood Pressure 113/65 108/64 115/71 O2 Sat by Pulse 88 90 Oximetry 02/25/21 02/25/21 02/25/21 12:00 12:01 12:09 Temperature Pulse Rate 85 81 Pulse Rate [ 81 Right Radial] Respiratory 24 13 Rate Blood Pressure 115/71 O2 Sat by Pulse 90 85 Oximetry 02/25/21 02/25/21 02/25/21 13:00 14:00 15:00 Temperature Pulse Rate 78 79 77 Pulse Rate [ Right Radial] Respiratory 21 20 24 Rate Blood Pressure 110/77 117/67 115/70 O2 Sat by Pulse 90 89 90 Oximetry 02/25/21 02/25/21 15:11 15:12 Temperature Pulse Rate 79 Pulse Rate [ 79 Right Radial] Respiratory 23 Rate Blood Pressure O2 Sat by Pulse 90 Oximetry General appearance: Present: no acute distress, well-nourished - EENT Eyes: PERRL, EOM intact ENT: hearing intact - Neck Neck: supple, normal ROM - Respiratory Respiratory effort: normal Respiratory: bilateral: CTA - Cardiovascular Rhythm: regular Heart Sounds: Present: S1 & S2 Extremities: No edema - Gastrointestinal General gastrointestinal: Present: soft, non-tender Rectal Exam: deferred - Genitourinary Female genitourinary: deferred - Integumentary Integumentary: clear - Neurologic Neurologic: no focal deficits, moves all extremities - Psychiatric Psychiatric: appropriate mood/affect - Labs CBC & Chem 7: 02/24/21 04:50 02/24/21 04:50
[2021-02-26] MEDS: FUROSEMIDE 40 MG/4 ML INJ IV SCH (08:30)
[2021-02-26] MEDS: ASCORBIC ACID 500 MG TAB PO SCH ×2 (09:30→21:22)
[2021-02-26] MEDS: amLODIPine 10 MG TAB PO SCH (09:30)
[2021-02-26] MEDS: GABAPENTIN 400 MG CAP PO SCH ×2 (09:30→21:22)
[2021-02-26] MEDS: ENOXAPARIN 100 MG/1 ML INJ SUB-Q SCH ×2 (09:30→21:21)
[2021-02-26] MEDS: FAMOTIDINE 20 MG TAB PO SCH ×2 (09:30→21:22)
[2021-02-26] MEDS: SERTRALINE 50 MG TAB PO SCH (09:30)
[2021-02-26] MEDS: dexAMETHasone 4 MG/ML VIAL IV SCH (09:30)
[2021-02-26] MEDS: ZINC SULFATE 220 MG CAP PO SCH (09:30)
[2021-02-26] MEDS: CHOLECALCIFEROL (VIT D3) 5,000 UNIT TAB PO SCH (09:30)
--- NOTE | 2021-02-26 09:55 | Progress Note ---
Assessment and Plan 61 y/o female with acute respiratory failure secondary to COVID 19 pneumonia. 02/26/21: Prone if possible. Continue anticoagulation for DVT. Steroids. Net negative fluid balance. Patient has changed her mind now and wishes to be a full code. 02/25/21: Long discussion at bedside with patient, whom per her, she has discussed this with her daughter. She does no want an endotracheal tube. She does not want chest compression and she does not want shocks. I did not ask about vasopressors. The patient is awake and alert and oriented. This needs to be addressed by primary team as well an if confirmed, I have no problem with cosigning AND order. Continue supportive measures for now. Guarded to poor prognosis. 02/21/21: BNP normal. Still would attempt to achieve net negative fluid balance daily. Continue Remdesivir and steroids. Prone if patient willing. Follow up CTA results. Discussed with IMS, may change anticoagulation but awaiting official ready on CTA. Guareded prognosis. 02/20/21: Follow up CTA results. Will send BNP. Continue steroids and Remdesivir. Guarded prognosis. Prone if able, very pertinent to do this. 1. self proning as tolerated during the day and prone at night while sleeping 2. Steroids and Remdesivir 3. Daily net negative volume state 4. Consider checking BNP and echo to make sure no edema on this film 5. Agree with empiric anticoagulation given elevated D-Dimer Guarded prognosis. Will continue to follow. Subjective Date of service: 02/26/21 Principal diagnosis: COVID pneumonia Interval history: No acute events. Remains on HFNC and NRB mask. Objective Vital Signs - 12hr 02/25/21 02/25/21 02/25/21 22:00 22:30 23:00 Temperature Pulse Rate 70 72 72 Pulse Rate [ From Monitor] Respiratory 27 H 30 H 33 H Rate Blood Pressure 122/85 122/85 116/79 O2 Sat by Pulse 95 97 91 Oximetry 02/25/21 02/26/21 02/26/21 23:50 00:00 01:00 Temperature 97.7 F Pulse Rate 67 64 63 Pulse Rate [ 64 From Monitor] Respiratory 25 H 19 Rate Blood Pressure 121/77 114/78 O2 Sat by Pulse 94 92 Oximetry 02/26/21 02/26/21 02/26/21 02:00 02:26 03:00 Temperature Pulse Rate 62 59 L 62 Pulse Rate [ From Monitor] Respiratory 18 30 H 18 Rate Blood Pressure 115/77 115/77 102/70 O2 Sat by Pulse 95 95 93 Oximetry 02/26/21 02/26/21 02/26/21 04:00 04:25 05:00 Temperature 98.3 F Pulse Rate 63 64 67 Pulse Rate [ From Monitor] Respiratory 17 19 Rate Blood Pressure 120/77 105/67 O2 Sat by Pulse 90 90 Oximetry 02/26/21 02/26/21 02/26/21 06:01 07:00 08:00 Temperature 98.0 F Pulse Rate 73 67 Pulse Rate [ From Monitor] Respiratory 11 L 24 Rate Blood Pressure 105/67 101/69 O2 Sat by Pulse 90 94 Oximetry 02/26/21 02/26/21 08:01 09:00 Temperature Pulse Rate 69 75 Pulse Rate [ From Monitor] Respiratory 19 25 H Rate Blood Pressure 119/77 127/73 O2 Sat by Pulse 89 Oximetry Constitutional: alert, other (on hiflo) ENT: oropharynx moist Neck: supple Ascultation: Bilateral: diminished breath sounds Cardiovascular: regular rate and rhythm Gastrointestinal: normoactive bowel sounds, soft, non-tender, non-distended Integumentary: normal Extremities: no cyanosis CBC and BMP: 02/27/21 04:57 02/27/21 04:57 ABG, PT/INR, D-dimer: ABG ABG pH 7.453 pH Units (7.350-7.450) H 02/20/21 18:46 ABG pCO2 38.9 mm Hg 02/20/21 18:46 ABG pO2 55.0 mm Hg (80.0-90.0) L 02/20/21 18:46 ABG O2 Saturation 88.3 % (95.0-99.0) L 02/20/21 18:46 PT/INR, D-dimer PT 13.9 Sec. (12.2-14.9) 02/17/21 14:34 INR 0.96 (0.87-1.13) 02/17/21 14:34 D-Dimer > 20500 ng/mlDDU (0-234) H 02/19/21 08:43 Abnormal lab findings: Abnormal Labs 02/17/21 02/17/21 02/17/21 14:34 14:34 14:34 WBC 11.7 H RBC Hgb Hct 44.9 H RDW 15.6 H Seg Neuts % (Manual) Lymphocytes % (Manual) 9.0 L Monocytes % (Manual) 12.0 H Seg Neutrophils # Man 8.2 H Lymphocytes # (Manual) 1.1 L Monocytes # (Manual) 1.4 H D-Dimer ABG pH ABG pO2 ABG HCO3 ABG O2 Saturation Oxyhemoglobin Sodium Potassium 3.5 L Chloride BUN 27 H Glucose 150 H POC Glucose Lactic Acid 2.90 H* AST C-Reactive Protein NT-Pro-B Natriuret Pep Albumin Urine WBC (Auto) Coronavirus (PCR) 02/17/21 02/18/21 02/18/21 14:34 07:48 07:48 WBC 12.0 H RBC Hgb Hct RDW 15.4 H Seg Neuts % (Manual) 76.0 H Lymphocytes % (Manual) Monocytes % (Manual) Seg Neutrophils # Man 9.1 H Lymphocytes # (Manual) Monocytes # (Manual) D-Dimer ABG pH ABG pO2 ABG HCO3 ABG O2 Saturation Oxyhemoglobin Sodium Potassium Chloride BUN 36 H Glucose 133 H POC Glucose Lactic Acid AST 57 H C-Reactive Protein NT-Pro-B Natriuret Pep 1619 H Albumin 3.3 L Urine WBC (Auto) Coronavirus (PCR) 02/18/21 02/18/21 02/19/21 Unknown Unknown 07:32 WBC RBC Hgb Hct RDW Seg Neuts % (Manual) Lymphocytes % (Manual) Monocytes % (Manual) Seg Neutrophils # Man Lymphocytes # (Manual) Monocytes # (Manual) D-Dimer ABG pH ABG pO2 ABG HCO3 ABG O2 Saturation Oxyhemoglobin Sodium 148 H D Potassium Chloride BUN 41 H Glucose 123 H POC Glucose Lactic Acid AST 57 H C-Reactive Protein NT-Pro-B Natriuret Pep Albumin 3.7 L Urine WBC (Auto) 7.0 H Coronavirus (PCR) Positive A 02/19/21 02/19/21 02/20/21 07:32 08:43 05:00 WBC RBC Hgb Hct RDW Seg Neuts % (Manual) Lymphocytes % (Manual) Monocytes % (Manual) Seg Neutrophils # Man Lymphocytes # (Manual) Monocytes # (Manual) D-Dimer > 78626 H ABG pH ABG pO2 ABG HCO3 ABG O2 Saturation Oxyhemoglobin Sodium 147 H Potassium Chloride 107.6 H BUN 36 H Glucose POC Glucose Lactic Acid AST C-Reactive Protein 10.90 H NT-Pro-B Natriuret Pep Albumin 3.3 L Urine WBC (Auto) Coronavirus (PCR) 02/20/21 02/21/21 02/21/21 18:46 04:44 04:44 WBC 16.7 H RBC Hgb Hct RDW Seg Neuts % (Manual) Lymphocytes % (Manual) Monocytes % (Manual) Seg Neutrophils # Man Lymphocytes # (Manual) Monocytes # (Manual) D-Dimer ABG pH 7.453 H ABG pO2 55.0 L ABG HCO3 26.6 H ABG O2 Saturation 88.3 L Oxyhemoglobin 86.8 L Sodium Potassium Chloride BUN 26 H Glucose 111 H POC Glucose Lactic Acid AST C-Reactive Protein NT-Pro-B Natriuret Pep Albumin 3.4 L Urine WBC (Auto) Coronavirus (PCR) 02/22/21 02/23/21 02/23/21 04:47 09:05 09:05 WBC 19.3 H RBC 5.29 H Hgb 15.2 H Hct 47.7 H D RDW Seg Neuts % (Manual) 82.0 H Lymphocytes % (Manual) 6.0 L Monocytes % (Manual) Seg Neutrophils # Man 15.8 H Lymphocytes # (Manual) Monocytes # (Manual) 1.0 H D-Dimer ABG pH ABG pO2 ABG HCO3 ABG O2 Saturation Oxyhemoglobin Sodium Potassium Chloride BUN 25 H 27 H Glucose 125 H POC Glucose Lactic Acid AST C-Reactive Protein NT-Pro-B Natriuret Pep Albumin 3.3 L Urine WBC (Auto) Coronavirus (PCR) 02/23/21 02/23/21 02/24/21 11:33 16:24 04:50 WBC 14.8 H RBC Hgb Hct RDW Seg Neuts % (Manual) Lymphocytes % (Manual) Monocytes % (Manual) Seg Neutrophils # Man Lymphocytes # (Manual) Monocytes # (Manual) D-Dimer ABG pH ABG pO2 ABG HCO3 ABG O2 Saturation Oxyhemoglobin Sodium Potassium Chloride BUN Glucose POC Glucose 117 H 163 H Lactic Acid AST C-Reactive Protein NT-Pro-B Natriuret Pep Albumin Urine WBC (Auto) Coronavirus (PCR) 02/24/21 02/25/21 04:50 21:12 WBC RBC Hgb Hct RDW Seg Neuts % (Manual) Lymphocytes % (Manual) Monocytes % (Manual) Seg Neutrophils # Man Lymphocytes # (Manual) Monocytes # (Manual) D-Dimer ABG pH ABG pO2 ABG HCO3 ABG O2 Saturation Oxyhemoglobin Sodium Potassium Chloride BUN 23 H Glucose POC Glucose 175 H Lactic Acid AST C-Reactive Protein NT-Pro-B Natriuret Pep Albumin Urine WBC (Auto) Coronavirus (PCR)
--- NOTE | 2021-02-26 10:20 | Progress Note ---
Assessment and Plan Assessment and plan: Patient is 61 years old female with history of hypertension, diabetes and DVT currently on Eliquis. Patient brought to the emergency room via EMS from home for evaluation of shortness of breath cough and generalized weakness for the last 5 days. Patient stated that she tested positive for COVID-19 on February 10 and since then she has not been feeling well. EMS stated that patient initial oxygen saturation was 75% on room air improved to 86% on a nonrebreather. Patient stated that her daughter also tested positive. 02/19/2020 Patient on 50% Ventimask Covid positive Continue steroids May DC antibiotics Respiratory assessment and treatment 02/19: Patient still hypoxic, encourage prone positioning, Pulmonary and ID consult. Will obtain CTA chest to evaluate for PE. Continue steroid therapy and oxygen therapy wean as tolerated. Continuous pulse oximeter. Plan discussed with the patient. 02/20: Patient seen and examined, remains on NRBM. awaiting CT CHEST WITH ANGIO Ordered yesterday. Encourage proning the patient says she was not proned yesterday discussed with nursing staff. Continue steroid therapy and remdesivir. Patient was seen by ID and as documented by ID"She is a candidate for Actemra based on CRp and O2 requirements. unfortunately we have not been getting procalcitonin results. -ordered Actemra once (afebrile, white count only mildly elevated in the setting of steroids)" Discussed plan of care with the nurse. Also called to updated the patients sister listed as NOK but got voice mail 02/21: Continue steroids, remdesivir, patient received 1 dose of Actemra but unable to get the second dose due to availability. CTA showed dense consolidation but no effusion and no pulmonary embolism patient does have a lower extremity DVT. Eliquis continues at full dose of 5 mg twice daily we will continue to monitor closely. Prognosis is guarded counseling for compliance for 15 minutes. 02/22: Patient clinically not improving much of switch the patient to Lovenox. Prognosis remains guarded. Continue anticoagulation due to DVT still suspicious of pulmonary embolism as a result we will obtain echocardiogram and vascular consult per pulmonary request which I agree with. I will also transfer the patient to stepdown unit for closer monitoring. 02/23: Vascular input noted agree the patient has subsegmental bibasilar pulmonary embolism but not enough to warrant intervention. Does not feel that this is contributing majority to her hypoxia. Nevertheless we will switch patient from Eliquis to Lovenox. Continue current management with remdesivir 02/24: Patient seen and examined, remains on anticoagulation, continue remedsivir and steroids. prone as tolerated, will give additional lasix today. Guarded prognosis. 02/25 A&O x 3, C/O mild cough with mucoid expectorant. Denies CP or shortness of breath. Remains on HFNC. pulmonary note and lab results reviewed 02/26: AOX3, proning on encounter. Encouraged continued movement while in bed and with assistance of care staff. Remains on HFNC. Last day of decadron today. (1) Acute respiratory failure with hypoxia Current Visit: Yes Status: Acute Plan to address problem: 2/2 covid PNA she is on HFNC at 40L and 100% Fio2 O2 sat 90% pulmonary following cont. Decadron - stop date 02/26 wean as tolerated (2) SIRS (systemic inflammatory response syndrome) Current Visit: Yes Status: Acute Plan to address problem: Clinical picture consistent with Sirs (3) Multifocal pneumonia Current Visit: Yes Status: Acute Plan to address problem: 2/2 covid 19 off Abx (4)COVID-19 virus infection Current Visit: Yes Status: Acute Plan to address problem: completed remdesivir cont. decadron - stop date 02/26 proning as tolerated (5) Hypertension Current Visit: Yes Status: Chronic Qualifiers: Hypertension type: primary hypertension Qualified Code(s): I10 - Essential (primary) hypertension Plan to address problem: Fair cont. 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 therapeutic lovenox (9) DVT prophylaxis Current Visit: Yes Status: Acute CODE STATUS: AND/DNR The high probability of a clinically significant, sudden or life threatening deterioration of the [pulmonary] system(s) required my full and direct attention, intervention and personal management. The aggregate critical care time was [60] minutes. This time is in addition to time spent performing reported procedures but includes the following: [X] Data Review and interpretation [X] Patient assessment and monitoring of vital signs [X] Documentation [X] Medication orders and management History Interval history: No new complaints. Remains on hi flow on encounter. Was self proning on my encounter. Sats in low 90's. Patient states she is feeling better compared to yesterday. Hospitalist Physical - Physical exam Narrative exam: Physical Exam: Constitutional: Alert, cooperative. Mild resp distress Head, Ears, Nose: Normocephalic, atraumatic. External ears, nose normal Eyes: Conjunctivae/corneas clear. No icterus. No ptosis. Neck: Supple, no meningeal signs Oral: Deferred due to COVID-19 Cardiovascular: S1, S2 + Respiratory: AE fair bilaterally GI: Soft, non-tender; bowel sounds normal. No peritoneal signs Musculoskeletal: No pedal edema, no cyanosis. Skin: No rash or abscess Hem/Lymphatic: No palpable cervical or supraclavicular nodes. No lymphangitis Psych: No agitation Neurological: Awake, alert - Constitutional Vitals: Temp Pulse Resp BP Pulse Ox 98.0 F 75 25 H 127/73 89 02/26/21 08:00 02/26/21 09:00 02/26/21 09:00 02/26/21 09:00 02/26/21 08:01 General appearance: Present: no acute distress, well-nourished Results - Labs CBC & Chem 7: 02/24/21 04:50 02/24/21 04:50 Labs: Laboratory Last Values WBC 14.8 K/mm3 (4.5-11.0) H 02/24/21 04:50 RBC 4.65 M/mm3 (3.65-5.03) 02/24/21 04:50 Hgb 13.3 gm/dl (10.1-14.3) 02/24/21 04:50 Hct 41.4 % (30.3-42.9) D 02/24/21 04:50 MCV 89 fl (79-97) 02/24/21 04:50 MCH 29 pg (28-32) 02/24/21 04:50 MCHC 32 % (30-34) 02/24/21 04:50 RDW 15.0 % (13.2-15.2) 02/24/21 04:50 Plt Count 253 K/mm3 (140-440) 02/24/21 04:50 Add Manual Diff Complete 02/23/21 09:05 Total Counted 100 02/23/21 09:05 Seg Neuts % (Manual) 82.0 % (40.0-70.0) H 02/23/21 09:05 Band Neutrophils % 0 % 02/23/21 09:05 Lymphocytes % (Manual) 6.0 % (13.4-35.0) L 02/23/21 09:05 Reactive Lymphs % (Man) 0 % 02/23/21 09:05 Monocytes % (Manual) 5.0 % (0.0-7.3) 02/23/21 09:05 Eosinophils % (Manual) 1.0 % (0.0-4.3) 02/23/21 09:05 Basophils % (Manual) 0 % (0.0-1.8) 02/23/21 09:05 Metamyelocytes % 6.0 % 02/23/21 09:05 Myelocytes % 0 % 02/23/21 09:05 Promyelocytes % 0 % 02/23/21 09:05 Blast Cells % 0 % 02/23/21 09:05 Nucleated RBC % Not Reportable 02/23/21 09:05 Seg Neutrophils # Man 15.8 K/mm3 (1.8-7.7) H 02/23/21 09:05 Band Neutrophils # 0.0 K/mm3 02/23/21 09:05 Lymphocytes # (Manual) 1.2 K/mm3 (1.2-5.4) 02/23/21 09:05 Abs React Lymphs (Man) 0.0 K/mm3 02/23/21 09:05 Monocytes # (Manual) 1.0 K/mm3 (0.0-0.8) H 02/23/21 09:05 Eosinophils # (Manual) 0.2 K/mm3 (0.0-0.4) 02/23/21 09:05 Basophils # (Manual) 0.0 K/mm3 (0.0-0.1) 02/23/21 09:05 Metamyelocytes # 1.2 K/mm3 02/23/21 09:05 Myelocytes # 0.0 K/mm3 02/23/21 09:05 Promyelocytes # 0.0 K/mm3 02/23/21 09:05 Blast Cells # 0.0 K/mm3 02/23/21 09:05 WBC Morphology Not Reportable 02/23/21 09:05 WBC Morphology TNR 02/23/21 09:05 Hypersegmented Neuts Not Reportable 02/23/21 09:05 Hyposegmented Neuts Not Reportable 02/23/21 09:05 Hypogranular Neuts Not Reportable 02/23/21 09:05 Smudge Cells Not Reportable 02/23/21 09:05 Toxic Granulation Not Reportable 02/23/21 09:05 Toxic Vacuolation Not Reportable 02/23/21 09:05 Dohle Bodies Not Reportable 02/23/21 09:05 Pelger-Huet Anomaly Not Reportable 02/23/21 09:05 Cindy Rods Not Reportable 02/23/21 09:05 Platelet Estimate Consistent w auto 02/23/21 09:05 Clumped Platelets Not Reportable 02/23/21 09:05 Plt Clumps, EDTA Not Reportable 02/23/21 09:05 Large Platelets Not Reportable 02/23/21 09:05 Giant Platelets Not Reportable 02/23/21 09:05 Platelet Satelliting Not Reportable 02/23/21 09:05 Plt Morphology Comment Not Reportable 02/23/21 09:05 RBC Morphology Normal 02/23/21 09:05 Dimorphic RBCs Not Reportable 02/23/21 09:05 Polychromasia Not Reportable 02/23/21 09:05 Hypochromasia Not Reportable 02/23/21 09:05 Poikilocytosis Not Reportable 02/23/21 09:05 Anisocytosis Not Reportable 02/23/21 09:05 Microcytosis Not Reportable 02/23/21 09:05 Macrocytosis Not Reportable 02/23/21 09:05 Spherocytes Not Reportable 02/23/21 09:05 Pappenheimer Bodies Not Reportable 02/23/21 09:05 Sickle Cells Not Reportable 02/23/21 09:05 Target Cells Not Reportable 02/23/21 09:05 Tear Drop Cells Not Reportable 02/23/21 09:05 Ovalocytes Not Reportable 02/23/21 09:05 Helmet Cells Not Reportable 02/23/21 09:05 Sumner-Menan Bodies Not Reportable 02/23/21 09:05 Astor Rings Not Reportable 02/23/21 09:05 Alicia Cells Not Reportable 02/23/21 09:05 Bite Cells Not Reportable 02/23/21 09:05 Crenated Cell Not Reportable 02/23/21 09:05 Elliptocytes Not Reportable 02/23/21 09:05 Acanthocytes (Spur) Not Reportable 02/23/21 09:05 Rouleaux Not Reportable 02/23/21 09:05 Hemoglobin C Crystals Not Reportable 02/23/21 09:05 Schistocytes Not Reportable 02/23/21 09:05 Malaria parasites Not Reportable 02/23/21 09:05 Pedro Pablo Bodies Not Reportable 02/23/21 09:05 Hem Pathologist Commnt No 02/23/21 09:05 PT 13.9 Sec. (12.2-14.9) 02/17/21 14:34 INR 0.96 (0.87-1.13) 02/17/21 14:34 APTT 26.4 Sec. (24.2-36.6) 02/17/21 14:34 D-Dimer > 54783 ng/mlDDU (0-234) H 02/19/21 08:43 ABG pH 7.453 pH Units (7.350-7.450) H 02/20/21 18:46 ABG pCO2 38.9 mm Hg 02/20/21 18:46 ABG pO2 55.0 mm Hg (80.0-90.0) L 02/20/21 18:46 ABG HCO3 26.6 mmol/L (20.0-26.0) H 02/20/21 18:46 ABG O2 Saturation 88.3 % (95.0-99.0) L 02/20/21 18:46 ABG Base Excess 2.6 mmol/L (-2.0-3.0) 02/20/21 18:46 ABG Hemoglobin 14.4 gm/dl (12.0-16.0) 02/20/21 18:46 ABG Carboxyhemoglobin 1.4 % (0.0-5.0) 02/20/21 18:46 ABG Methemoglobin 0.3 % (0.0-1.5) 02/20/21 18:46 Oxyhemoglobin 86.8 % (95.0-99.0) L 02/20/21 18:46 FiO2 100 % 02/20/21 18:46 Sodium 138 mmol/L (137-145) 02/24/21 04:50 Potassium 4.6 mmol/L (3.6-5.0) 02/24/21 04:50 Chloride 100.4 mmol/L (98-107) 02/24/21 04:50 Carbon Dioxide 26 mmol/L (22-30) 02/24/21 04:50 Anion Gap 16 mmol/L 02/24/21 04:50 BUN 23 mg/dL (7-17) H 02/24/21 04:50 Creatinine 0.6 mg/dL (0.6-1.2) 02/24/21 04:50 Estimated GFR > 60 ml/min 02/24/21 04:50 BUN/Creatinine Ratio 38 % 02/24/21 04:50 Glucose 100 mg/dL (65-100) 02/24/21 04:50 POC Glucose 175 mg/dL (70-105) H 02/25/21 21:12 Lactic Acid 1.60 mmol/L (0.7-2.0) 02/17/21 18:39 Calcium 8.8 mg/dL (8.4-10.2) 02/24/21 04:50 Total Bilirubin 0.30 mg/dL (0.1-1.2) 02/22/21 04:47 Direct Bilirubin < 0.2 mg/dL (0-0.2) 02/17/21 14:34 Indirect Bilirubin 0.1 mg/dL 02/17/21 14:34 AST 24 units/L (5-40) 02/22/21 04:47 ALT 27 units/L (7-56) 02/22/21 04:47 Alkaline Phosphatase 66 units/L (35-129) 02/22/21 04:47 C-Reactive Protein 10.90 mg/dL (0.00-1.30) H 02/19/21 07:32 NT-Pro-B Natriuret Pep 86.77 pg/mL (0-900) 02/20/21 16:34 Total Protein 7.3 g/dL (6.3-8.2) 02/22/21 04:47 Albumin 3.3 g/dL (3.9-5) L 02/22/21 04:47 Albumin/Globulin Ratio 0.8 % 02/22/21 04:47 Urine Color Cassandra (Yellow) 02/18/21 Unknown Urine Turbidity Cloudy (Clear) 02/18/21 Unknown Urine pH 5.0 (5.0-7.0) 02/18/21 Unknown Ur Specific [place] 1.027 (1.003-1.030) 02/18/21 Unknown Urine Protein 100 mg/dl mg/dL (Negative) 02/18/21 Unknown Urine Glucose (UA) Neg mg/dL (Negative) 02/18/21 Unknown Urine Ketones Neg mg/dL (Negative) 02/18/21 Unknown Urine Blood Neg (Negative) 02/18/21 Unknown Urine Nitrite Neg (Negative) 02/18/21 Unknown Urine Bilirubin Neg (Negative) 02/18/21 Unknown Urine Urobilinogen < 2.0 mg/dL (<2.0) 02/18/21 Unknown Ur Leukocyte Esterase Neg (Negative) 02/18/21 Unknown Urine WBC (Auto) 7.0 /HPF (0.0-6.0) H 02/18/21 Unknown Urine RBC (Auto) 4.0 /HPF (0.0-6.0) 02/18/21 Unknown U Epithel Cells (Auto) 3.0 /HPF (0-13.0) 02/18/21 Unknown Urine Mucus 2+ /HPF 02/18/21 Unknown Coronavirus (PCR) Positive (Negative) A 02/18/21 Unknown Head/IV: Voiding Method External Female Catheter Active Medications - Current Medications Current Medications: Generic Name Dose Route Start Last Admin Trade Name Freq PRN Reason Stop Dose Admin Acetaminophen 650 mg 02/17/21 23:58 02/25/21 21:38 Acetaminophen 325 Mg Tab PO 650 mg Q4H PRN Administration Pain MILD(1-3)/Fever >100.5/BROWN Amlodipine Besylate 10 mg 02/19/21 10:00 02/25/21 09:49 Amlodipine 10 Mg Tab PO 10 mg DAILY DEISY Administration Ascorbic Acid 1,000 mg 02/19/21 10:00 02/25/21 21:38 Ascorbic Acid 500 Mg Tab PO 1,000 mg BID DEISY Administration Cholecalciferol 5,000 unit 02/19/21 10:00 02/25/21 09:48 Cholecalciferol (Vit D3) 5,000 Unit Tab PO 5,000 unit DAILY DEISY Administration Enoxaparin Sodium 90 mg 02/22/21 10:00 02/25/21 21:38 Enoxaparin 100 Mg/1 Ml Inj 1 mg/kg (90 mg) 90 mg SUB-Q Administration Q12HR [facility] Protocol Famotidine 20 mg 02/18/21 10:00 02/25/21 21:34 Famotidine 20 Mg Tab PO 20 mg BID DEISY Administration Furosemide 40 mg 02/18/21 08:00 02/25/21 09:48 Furosemide 40 Mg/4 Ml Inj IV 40 mg 0800 DEISY Administration Gabapentin 400 mg 02/19/21 04:00 02/25/21 21:34 Gabapentin 400 Mg Cap PO 400 mg BID DEISY Administration Hydromorphone HCl 0.5 mg 02/17/21 23:58 Hydromorphone 1 Mg/1 Ml Inj IV Q3H PRN Pain , Severe (7-10) Ondansetron HCl 4 mg 02/17/21 23:58 Ondansetron 4 Mg/2 Ml Inj IV Q8H PRN Nausea And Vomiting Oxycodone/Acetaminophen 1 tab 02/17/21 23:58 02/25/21 04:41 Oxycodone /Acetaminophen 5-325mg Tab PO 1 tab Q6H PRN Administration Pain, Moderate (4-6) Sertraline HCl 50 mg 02/19/21 10:00 02/25/21 09:49 Sertraline 50 Mg Tab PO 50 mg QDAY DEISY Administration Sodium Chloride 10 ml 02/18/21 10:00 02/25/21 21:38 Sodium Chloride 0.9% 10 Ml Flush Syringe IV 10 ml BID DEISY Administration Sodium Chloride 10 ml 02/17/21 23:58 Sodium Chloride 0.9% 10 Ml Flush Syringe IV PRN PRN LINE FLUSH Zinc Sulfate 220 mg 02/19/21 10:00 02/25/21 09:49 Zinc Sulfate 220 Mg Cap PO 220 mg QDAY DEISY Administration Nutrition/Malnutrition Assess - Dietary Evaluation Nutrition/Malnutrition Findings: Nutrition Notes Start: 02/25/21 16:10 Freq: Status: Active Protocol: Document 02/25/21 16:10 ALEC (Rec: 02/25/21 16:47 ALEC [id number]) Nutrition Notes Need for Assessment generated from: LOS Initial or Follow up Assessment Current Diagnosis Diabetes,Hypertension, Respiratory Failure Other Pertinent Diagnosis COVID-19 pneumonia, SIRS. Current Diet Cardiac Diet (since B 02/18). Labs/Tests 02/24" BUN 23. Pertinent Medications 02/25: Vit C, Vit D3, ZnSO4, others nutritionally unremarkable. Height 5 ft 6 in Weight 86.183 kg Ennice Body Weight (kg) 59.09 BMI 30.7 Intake Prior to Admission Good Weight change and time frame None, according to admission report. Weight Status Obese Subjective/Other Information RD consult for LOS assessment. Pt on NIV/Bi-Pap+. No report available on Pt's % PO intake of meals at the time . F/U on PO intake of meals assessment. Percent of energy/protein needs met: Prescribed Cardiac Diet provides for energy/protein needs (2,230 Kcal/85 g) during LOS. Burn Absent Trauma Absent GI Symptoms None Food Allergy No Skin Integrity/Comment Clear, warm, dry. Minimum of two criteria No Is patient on ventilator? No Is Patient Ambulatory and/or Out of Bed Yes REE-([place]-ambulatory/OOB) [ [id number] [id number]] Kcal/Kg value to use for calculation 13 Approximate Energy Requirements Using 1120 kcal/Kg Calculation Used for Recommendations Kcal/kg Additional Notes Protein: >2 g/Kg; >118 g/day. Fluids: 1 ml/Kcal, or as per MD. Nutrition Intervention Change Diet Order: Continue Cardiac Diet. Follow-Up By: 03/04/21 Additional Comments Continue monitoring food tolerance, %PO intake of meals , and BM.
--- NOTE | 2021-02-26 13:33 | Progress Note ---
Assessment and Plan Cultures: Blood culture no growth so far. A/P: 61 yo F with HTN, DM2 admitted with: #Severe COVID-19 pneumonia: Patient presented with a week of symptoms, chest x- ray with diffuse bilateral infiltrates, admission O2 sats decreased on room air. Inflammatory markers elevated. #Acute hypoxemic respiratory failure: Likely secondary to COVID-19 infection. Currently on NRB #Diabetes: tight glycemic control for best outcomes. #Acute DVT: in right leg with subsegmental PE Recommendations: -complete 10 days of steroids -completed remdesivir -Completed 5 days empiric antibiotics. -per pharmacy note s/p Actemra on 02/19/2021 (it seems received 1 dose, not but complete dose due to availability) -Poor prognosis, agree with DNR/DNI status Jamila Cameron MD, FACP, [facility] ([facility] O: [phone] F: [phone] Subjective Date of service: 02/26/21 Principal diagnosis: COVID pneumonia Interval history: Afebrile. On NRB. Denies any new complaints, talking to family member on phone. Objective - Exam Narrative Exam: Physical Exam: Constitutional: Alert, cooperative. Mild resp distress Head, Ears, Nose: Normocephalic, atraumatic. External ears, nose normal Eyes: Conjunctivae/corneas clear. No icterus. No ptosis. Neck: Supple, no meningeal signs Oral: Deferred due to COVID-19 Cardiovascular: S1, S2 + Respiratory: AE fair bilaterally GI: Soft, non-tender; bowel sounds normal. No peritoneal signs Musculoskeletal: No pedal edema, no cyanosis. Skin: No rash or abscess Hem/Lymphatic: No palpable cervical or supraclavicular nodes. No lymphangitis Psych: No agitation Neurological: Awake, alert - Constitutional Vitals: Vital Signs Temp Pulse Resp BP Pulse Ox 98.0 F 73 19 115/73 82 L 02/26/21 08:00 02/26/21 12:00 02/26/21 12:00 02/26/21 12:00 02/26/21 12:00 Temperature -Last 24 Hours Temperature 98.0 F Temperature 98.3 F Temperature 97.7 F Temperature 97.8 F - Labs CBC & Chem 7: 02/24/21 04:50 02/24/21 04:50 Labs: Abnormal lab results 02/25/21 Range/Units 21:12 POC Glucose 175 H (70-105) mg/dL
[2021-02-27] MEDS: oxyCODONE /ACETAMINOPHEN 5-325MG TAB PO PRN (04:22)
[2021-02-27 05:16] LABS: Hematocrit 43.4 % (30.3-42.9); Hemoglobin 13.9 gm/dl (10.1-14.3); Mean Corpuscular HGB Conc 32 % (30-34); Mean Corpuscular Volume 89 fl (79-97); Platelet Count 361 K/mm3 (140-440); Red Cell Distribution Width 14.6 % (13.2-15.2)
[2021-02-27 05:44] LABS: Blood Urea Nitrogen 23 mg/dL (7-17); Calcium 9.3 mg/dL (8.4-10.2); Hemolysis Index 1
[2021-02-27 05:45] LABS: BUN/Creatinine Ratio 46
[2021-02-27 07:09] LABS: Band Neutrophils # (Manual) 0.2 K/mm3; Basophils % (Manual) 0 % (0.0-1.8); Eosinophils % (Manual) 0 % (0.0-4.3); Myelocytes # (Manual) 0.7 K/mm3; Total Cells Counted 100
[2021-02-27 07:10] LABS: Ovalocytes Few; Platelet Estimate Consistent w Auto; Toxic Vacuolation Few
--- NOTE | 2021-02-27 09:11 | Progress Note ---
Assessment and Plan Assessment and plan: Patient is 61 years old female with history of hypertension, diabetes and DVT currently on Eliquis. Patient brought to the emergency room via EMS from home for evaluation of shortness of breath cough and generalized weakness for the last 5 days. Patient stated that she tested positive for COVID-19 on February 10 and since then she has not been feeling well. EMS stated that patient initial oxygen saturation was 75% on room air improved to 86% on a nonrebreather. Patient stated that her daughter also tested positive. 02/19/2020 Patient on 50% Ventimask Covid positive Continue steroids May DC antibiotics Respiratory assessment and treatment 02/19: Patient still hypoxic, encourage prone positioning, Pulmonary and ID consult. Will obtain CTA chest to evaluate for PE. Continue steroid therapy and oxygen therapy wean as tolerated. Continuous pulse oximeter. Plan discussed with the patient. 02/20: Patient seen and examined, remains on NRBM. awaiting CT CHEST WITH ANGIO Ordered yesterday. Encourage proning the patient says she was not proned yesterday discussed with nursing staff. Continue steroid therapy and remdesivir. Patient was seen by ID and as documented by ID"She is a candidate for Actemra based on CRp and O2 requirements. unfortunately we have not been getting procalcitonin results. -ordered Actemra once (afebrile, white count only mildly elevated in the setting of steroids)" Discussed plan of care with the nurse. Also called to updated the patients sister listed as NOK but got voice mail 02/21: Continue steroids, remdesivir, patient received 1 dose of Actemra but unable to get the second dose due to availability. CTA showed dense consolidation but no effusion and no pulmonary embolism patient does have a lower extremity DVT. Eliquis continues at full dose of 5 mg twice daily we will continue to monitor closely. Prognosis is guarded counseling for compliance for 15 minutes. 02/22: Patient clinically not improving much of switch the patient to Lovenox. Prognosis remains guarded. Continue anticoagulation due to DVT still suspicious of pulmonary embolism as a result we will obtain echocardiogram and vascular consult per pulmonary request which I agree with. I will also transfer the patient to stepdown unit for closer monitoring. 02/23: Vascular input noted agree the patient has subsegmental bibasilar pulmonary embolism but not enough to warrant intervention. Does not feel that this is contributing majority to her hypoxia. Nevertheless we will switch patient from Eliquis to Lovenox. Continue current management with remdesivir 02/24: Patient seen and examined, remains on anticoagulation, continue remedsivir and steroids. prone as tolerated, will give additional lasix today. Guarded prognosis. 02/25 A&O x 3, C/O mild cough with mucoid expectorant. Denies CP or shortness of breath. Remains on HFNC. pulmonary note and lab results reviewed 02/26: AOX3, proning on encounter. Encouraged continued movement while in bed and with assistance of care staff. Remains on HFNC. Last day of decadron today. 02/27: Patient encouraged to continue proning and remain active. Discussed with PT to come work with patient to mobilize. Will d/w CM for intermediate card tender placement solution. (1) Acute respiratory failure with hypoxia Current Visit: Yes Status: Acute Plan to address problem: 2/2 covid PNA she is on HFNC at 40L and 100% Fio2 O2 sat 90% pulmonary following cont. Decadron - stop date 02/26 wean as tolerated (2) SIRS (systemic inflammatory response syndrome) Current Visit: Yes Status: Acute Plan to address problem: Clinical picture consistent with Sirs (3) Multifocal pneumonia Current Visit: Yes Status: Acute Plan to address problem: 2/2 covid 19 off Abx (4)COVID-19 virus infection Current Visit: Yes Status: Acute Plan to address problem: completed remdesivir cont. decadron - stop date 02/26 proning as tolerated (5) Hypertension Current Visit: Yes Status: Chronic Qualifiers: Hypertension type: primary hypertension Qualified Code(s): I10 - Essential (primary) hypertension Plan to address problem: Fair cont. present medications (6) T2DM (type 2 diabetes mellitus) Current Visit: Yes Status: Chronic Qualifiers: Diabetes mellitus detention insulin use: unspecified detention insulin use status Plan to address problem: Continue Metformin and ISS coverage (7) Hypernatremia resolved (8) DVT LOWER EXT- RIGHT / and sub segmental PE cont. therapeutic lovenox (9) DVT prophylaxis Current Visit: Yes Status: Acute CODE STATUS: AND/DNR The high probability of a clinically significant, sudden or life threatening deterioration of the [pulmonary] system(s) required my full and direct attention, intervention and personal management. The aggregate critical care time was [60] minutes. This time is in addition to time spent performing reported procedures but includes the following: [X] Data Review and interpretation [X] Patient assessment and monitoring of vital signs [X] Documentation [X] Medication orders and management History Interval history: No overnight events. Resting comfortably on encounter, no acute complaints. Hospitalist Physical - Physical exam Narrative exam: Physical Exam: Constitutional: Alert, cooperative. Mild resp distress Head, Ears, Nose: Normocephalic, atraumatic. External ears, nose normal Eyes: Conjunctivae/corneas clear. No icterus. No ptosis. Neck: Supple, no meningeal signs Oral: Deferred due to COVID-19 Cardiovascular: S1, S2 + Respiratory: AE fair bilaterally GI: Soft, non-tender; bowel sounds normal. No peritoneal signs Musculoskeletal: No pedal edema, no cyanosis. Skin: No rash or abscess Hem/Lymphatic: No palpable cervical or supraclavicular nodes. No lymphangitis Psych: No agitation Neurological: Awake, alert - Constitutional Vitals: Temp Pulse Resp BP Pulse Ox 97.9 F 73 18 103/60 94 02/27/21 07:50 02/27/21 06:31 02/27/21 06:31 02/27/21 06:31 02/27/21 06:31 General appearance: Present: no acute distress, well-nourished Results - Labs CBC & Chem 7: 02/27/21 04:57 02/27/21 04:57 Labs: Laboratory Last Values WBC 17.0 K/mm3 (4.5-11.0) H 02/27/21 04:57 RBC 4.90 M/mm3 (3.65-5.03) 02/27/21 04:57 Hgb 13.9 gm/dl (10.1-14.3) 02/27/21 04:57 Hct 43.4 % (30.3-42.9) H 02/27/21 04:57 MCV 89 fl (79-97) 02/27/21 04:57 MCH 29 pg (28-32) 02/27/21 04:57 MCHC 32 % (30-34) 02/27/21 04:57 RDW 14.6 % (13.2-15.2) 02/27/21 04:57 Plt Count 361 K/mm3 (140-440) 02/27/21 04:57 Add Manual Diff Complete 02/27/21 04:57 Total Counted 100 02/27/21 04:57 Seg Neuts % (Manual) 84.0 % (40.0-70.0) H 02/27/21 04:57 Band Neutrophils % 1.0 % 02/27/21 04:57 Lymphocytes % (Manual) 4.0 % (13.4-35.0) L 02/27/21 04:57 Reactive Lymphs % (Man) 1.0 % 02/27/21 04:57 Monocytes % (Manual) 5.0 % (0.0-7.3) 02/27/21 04:57 Eosinophils % (Manual) 0 % (0.0-4.3) 02/27/21 04:57 Basophils % (Manual) 0 % (0.0-1.8) 02/27/21 04:57 Metamyelocytes % 1.0 % 02/27/21 04:57 Myelocytes % 4.0 % 02/27/21 04:57 Promyelocytes % 0 % 02/27/21 04:57 Blast Cells % 0 % 02/27/21 04:57 Nucleated RBC % Not Reportable 02/27/21 04:57 Seg Neutrophils # Man 14.3 K/mm3 (1.8-7.7) H 02/27/21 04:57 Band Neutrophils # 0.2 K/mm3 02/27/21 04:57 Lymphocytes # (Manual) 0.7 K/mm3 (1.2-5.4) L 02/27/21 04:57 Abs React Lymphs (Man) 0.2 K/mm3 02/27/21 04:57 Monocytes # (Manual) 0.9 K/mm3 (0.0-0.8) H 02/27/21 04:57 Eosinophils # (Manual) 0.0 K/mm3 (0.0-0.4) 02/27/21 04:57 Basophils # (Manual) 0.0 K/mm3 (0.0-0.1) 02/27/21 04:57 Metamyelocytes # 0.2 K/mm3 02/27/21 04:57 Myelocytes # 0.7 K/mm3 02/27/21 04:57 Promyelocytes # 0.0 K/mm3 02/27/21 04:57 Blast Cells # 0.0 K/mm3 02/27/21 04:57 WBC Morphology Not Reportable 02/27/21 04:57 Hypersegmented Neuts Not Reportable 02/27/21 04:57 Hyposegmented Neuts Not Reportable 02/27/21 04:57 Hypogranular Neuts Not Reportable 02/27/21 04:57 Smudge Cells Not Reportable 02/27/21 04:57 Toxic Granulation Not Reportable 02/27/21 04:57 Toxic Vacuolation Few 02/27/21 04:57 Dohle Bodies Not Reportable 02/27/21 04:57 Pelger-Huet Anomaly Not Reportable 02/27/21 04:57 Cindy Rods Not Reportable 02/27/21 04:57 Platelet Estimate Consistent w auto 02/27/21 04:57 Clumped Platelets Not Reportable 02/27/21 04:57 Plt Clumps, EDTA Not Reportable 02/27/21 04:57 Large Platelets Not Reportable 02/27/21 04:57 Giant Platelets Not Reportable 02/27/21 04:57 Platelet Satelliting Not Reportable 02/27/21 04:57 Plt Morphology Comment Not Reportable 02/27/21 04:57 RBC Morphology Not Reportable 02/27/21 04:57 Dimorphic RBCs Not Reportable 02/27/21 04:57 Polychromasia Not Reportable 02/27/21 04:57 Hypochromasia Not Reportable 02/27/21 04:57 Poikilocytosis Not Reportable 02/27/21 04:57 Anisocytosis Not Reportable 02/27/21 04:57 Microcytosis Not Reportable 02/27/21 04:57 Macrocytosis Not Reportable 02/27/21 04:57 Spherocytes Not Reportable 02/27/21 04:57 Pappenheimer Bodies Not Reportable 02/27/21 04:57 Sickle Cells Not Reportable 02/27/21 04:57 Target Cells Not Reportable 02/27/21 04:57 Tear Drop Cells Not Reportable 02/27/21 04:57 Ovalocytes Few 02/27/21 04:57 Helmet Cells Not Reportable 02/27/21 04:57 Sumner-Dwale Bodies Not Reportable 02/27/21 04:57 Dinosaur Rings Not Reportable 02/27/21 04:57 [place] Cells Not Reportable 02/27/21 04:57 Bite Cells Not Reportable 02/27/21 04:57 Crenated Cell Not Reportable 02/27/21 04:57 Elliptocytes Not Reportable 02/27/21 04:57 Acanthocytes (Spur) Not Reportable 02/27/21 04:57 Rouleaux Not Reportable 02/27/21 04:57 Hemoglobin C Crystals Not Reportable 02/27/21 04:57 Schistocytes Not Reportable 02/27/21 04:57 Malaria parasites Not Reportable 02/27/21 04:57 Pedro Pablo Bodies Not Reportable 02/27/21 04:57 Hem Pathologist Commnt No 02/27/21 04:57 PT 13.9 Sec. (12.2-14.9) 02/17/21 14:34 INR 0.96 (0.87-1.13) 02/17/21 14:34 APTT 26.4 Sec. (24.2-36.6) 02/17/21 14:34 D-Dimer 5013.37 ng/mlDDU (0-234) H 02/27/21 04:57 ABG pH 7.453 pH Units (7.350-7.450) H 02/20/21 18:46 ABG pCO2 38.9 mm Hg 02/20/21 18:46 ABG pO2 55.0 mm Hg (80.0-90.0) L 02/20/21 18:46 ABG HCO3 26.6 mmol/L (20.0-26.0) H 02/20/21 18:46 ABG O2 Saturation 88.3 % (95.0-99.0) L 02/20/21 18:46 ABG Base Excess 2.6 mmol/L (-2.0-3.0) 02/20/21 18:46 ABG Hemoglobin 14.4 gm/dl (12.0-16.0) 02/20/21 18:46 ABG Carboxyhemoglobin 1.4 % (0.0-5.0) 02/20/21 18:46 ABG Methemoglobin 0.3 % (0.0-1.5) 02/20/21 18:46 Oxyhemoglobin 86.8 % (95.0-99.0) L 02/20/21 18:46 FiO2 100 % 02/20/21 18:46 Sodium 138 mmol/L (137-145) 02/27/21 04:57 Potassium 3.8 mmol/L (3.6-5.0) 02/27/21 04:57 Chloride 98.4 mmol/L (98-107) 02/27/21 04:57 Carbon Dioxide 26 mmol/L (22-30) 02/27/21 04:57 Anion Gap 17 mmol/L 02/27/21 04:57 BUN 23 mg/dL (7-17) H 02/27/21 04:57 Creatinine 0.5 mg/dL (0.6-1.2) L 02/27/21 04:57 Estimated GFR > 60 ml/min 02/27/21 04:57 BUN/Creatinine Ratio 46 % 02/27/21 04:57 Glucose 113 mg/dL (65-100) H 02/27/21 04:57 POC Glucose 175 mg/dL (70-105) H 02/25/21 21:12 Lactic Acid 1.60 mmol/L (0.7-2.0) 02/17/21 18:39 Calcium 9.3 mg/dL (8.4-10.2) 02/27/21 04:57 Ferritin 1272.0 ng/mL (10.0-200.0) H 02/27/21 04:57 Total Bilirubin 0.30 mg/dL (0.1-1.2) 02/22/21 04:47 Direct Bilirubin < 0.2 mg/dL (0-0.2) 02/17/21 14:34 Indirect Bilirubin 0.1 mg/dL 02/17/21 14:34 AST 24 units/L (5-40) 02/22/21 04:47 ALT 27 units/L (7-56) 02/22/21 04:47 Alkaline Phosphatase 66 units/L (35-129) 02/22/21 04:47 Lactate Dehydrogenase 438 units/L (91-180) H 02/27/21 04:57 C-Reactive Protein 5.80 mg/dL (0.00-1.30) H 02/27/21 04:57 NT-Pro-B Natriuret Pep 86.77 pg/mL (0-900) 02/20/21 16:34 Total Protein 7.3 g/dL (6.3-8.2) 02/22/21 04:47 Albumin 3.3 g/dL (3.9-5) L 02/22/21 04:47 Albumin/Globulin Ratio 0.8 % 02/22/21 04:47 Urine Color Cassandra (Yellow) 02/18/21 Unknown Urine Turbidity Cloudy (Clear) 02/18/21 Unknown Urine pH 5.0 (5.0-7.0) 02/18/21 Unknown Ur Specific Rolla 1.027 (1.003-1.030) 02/18/21 Unknown Urine Protein 100 mg/dl mg/dL (Negative) 02/18/21 Unknown Urine Glucose (UA) Neg mg/dL (Negative) 02/18/21 Unknown Urine Ketones Neg mg/dL (Negative) 02/18/21 Unknown Urine Blood Neg (Negative) 02/18/21 Unknown Urine Nitrite Neg (Negative) 02/18/21 Unknown Urine Bilirubin Neg (Negative) 02/18/21 Unknown Urine Urobilinogen < 2.0 mg/dL (<2.0) 02/18/21 Unknown Ur Leukocyte Esterase Neg (Negative) 02/18/21 Unknown Urine WBC (Auto) 7.0 /HPF (0.0-6.0) H 02/18/21 Unknown Urine RBC (Auto) 4.0 /HPF (0.0-6.0) 02/18/21 Unknown U Epithel Cells (Auto) 3.0 /HPF (0-13.0) 02/18/21 Unknown Urine Mucus 2+ /HPF 02/18/21 Unknown Coronavirus (PCR) Positive (Negative) A 02/18/21 Unknown Head/IV: Voiding Method External Female Catheter Active Medications - Current Medications Current Medications: Generic Name Dose Route Start Last Admin Trade Name Freq PRN Reason Stop Dose Admin Acetaminophen 650 mg 02/17/21 23:58 02/25/21 21:38 Acetaminophen 325 Mg Tab PO 650 mg Q4H PRN Administration Pain MILD(1-3)/Fever >100.5/BROWN Amlodipine Besylate 10 mg 02/19/21 10:00 02/26/21 09:30 Amlodipine 10 Mg Tab PO 10 mg DAILY DEISY Administration Ascorbic Acid 1,000 mg 02/19/21 10:00 02/26/21 21:22 Ascorbic Acid 500 Mg Tab PO 1,000 mg BID DEISY Administration Cholecalciferol 5,000 unit 02/19/21 10:00 02/26/21 09:30 Cholecalciferol (Vit D3) 5,000 Unit Tab PO 5,000 unit DAILY DEISY Administration Enoxaparin Sodium 90 mg 02/22/21 10:00 02/26/21 21:21 Enoxaparin 100 Mg/1 Ml Inj 1 mg/kg (90 mg) 90 mg SUB-Q Administration Q12HR [facility] Protocol Famotidine 20 mg 02/18/21 10:00 02/26/21 21:22 Famotidine 20 Mg Tab PO 20 mg BID DEISY Administration Furosemide 40 mg 02/18/21 08:00 02/26/21 08:30 Furosemide 40 Mg/4 Ml Inj IV 40 mg 0800 DEISY Administration Gabapentin 400 mg 02/19/21 04:00 02/26/21 21:22 Gabapentin 400 Mg Cap PO 400 mg BID DEISY Administration Hydromorphone HCl 0.5 mg 02/17/21 23:58 Hydromorphone 1 Mg/1 Ml Inj IV Q3H PRN Pain , Severe (7-10) Ondansetron HCl 4 mg 02/17/21 23:58 Ondansetron 4 Mg/2 Ml Inj IV Q8H PRN Nausea And Vomiting Oxycodone/Acetaminophen 1 tab 02/17/21 23:58 02/27/21 04:22 Oxycodone /Acetaminophen 5-325mg Tab PO 1 tab Q6H PRN Administration Pain, Moderate (4-6) Sertraline HCl 50 mg 02/19/21 10:00 02/26/21 09:30 Sertraline 50 Mg Tab PO 50 mg QDAY DEISY Administration Sodium Chloride 10 ml 02/18/21 10:00 02/26/21 21:22 Sodium Chloride 0.9% 10 Ml Flush Syringe IV 10 ml BID DEISY Administration Sodium Chloride 10 ml 02/17/21 23:58 Sodium Chloride 0.9% 10 Ml Flush Syringe IV PRN PRN LINE FLUSH Zinc Sulfate 220 mg 02/19/21 10:00 02/26/21 09:30 Zinc Sulfate 220 Mg Cap PO 220 mg QDAY DEISY Administration Nutrition/Malnutrition Assess - Dietary Evaluation Nutrition/Malnutrition Findings: Nutrition Notes Start: 02/25/21 16:10 Freq: Status: Active Protocol: Document 02/25/21 16:10 ALEC (Rec: 02/25/21 16:47 ALEC [id number]) Nutrition Notes Need for Assessment generated from: LOS Initial or Follow up Assessment Current Diagnosis Diabetes,Hypertension, Respiratory Failure Other Pertinent Diagnosis COVID-19 pneumonia, SIRS. Current Diet Cardiac Diet (since B 02/18). Labs/Tests 02/24" BUN 23. Pertinent Medications 02/25: Vit C, Vit D3, ZnSO4, others nutritionally unremarkable. Height 5 ft 6 in Weight 86.183 kg Mayer Body Weight (kg) 59.09 BMI 30.7 Intake Prior to Admission Good Weight change and time frame None, according to admission report. Weight Status Obese Subjective/Other Information RD consult for LOS assessment. Pt on NIV/Bi-Pap+. No report available on Pt's % PO intake of meals at the time . F/U on PO intake of meals assessment. Percent of energy/protein needs met: Prescribed Cardiac Diet provides for energy/protein needs (2,230 Kcal/85 g) during LOS. Burn Absent Trauma Absent GI Symptoms None Food Allergy No Skin Integrity/Comment Clear, warm, dry. Minimum of two criteria No Is patient on ventilator? No Is Patient Ambulatory and/or Out of Bed Yes REE-([facility]-ambulatory/OOB) [ 1876.654 [id number]] Kcal/Kg value to use for calculation 13 Approximate Energy Requirements Using 1120 kcal/Kg Calculation Used for Recommendations Kcal/kg Additional Notes Protein: >2 g/Kg; >118 g/day. Fluids: 1 ml/Kcal, or as per MD. Nutrition Intervention Change Diet Order: Continue Cardiac Diet. Follow-Up By: 03/04/21 Additional Comments Continue monitoring food tolerance, %PO intake of meals , and BM.
[2021-02-27] MEDS: FUROSEMIDE 40 MG/4 ML INJ IV SCH (09:57)
[2021-02-27] MEDS: ENOXAPARIN 100 MG/1 ML INJ SUB-Q SCH ×2 (09:57→23:15)
[2021-02-27] MEDS: ASCORBIC ACID 500 MG TAB PO SCH ×2 (09:57→23:14)
[2021-02-27] MEDS: amLODIPine 10 MG TAB PO SCH (09:57)
[2021-02-27] MEDS: GABAPENTIN 400 MG CAP PO SCH ×2 (09:57→23:14)
[2021-02-27] MEDS: SERTRALINE 50 MG TAB PO SCH (09:58)
[2021-02-27] MEDS: CHOLECALCIFEROL (VIT D3) 5,000 UNIT TAB PO SCH (09:58)
[2021-02-27] MEDS: ZINC SULFATE 220 MG CAP PO SCH (09:58)
[2021-02-27] MEDS: FAMOTIDINE 20 MG TAB PO SCH ×2 (09:58→23:14)
[2021-02-27] MEDS ORDERED: DEXTROSE 50% IN WATER (25GM) 50 ML SYRINGE IV PRN (11:30)
--- NOTE | 2021-02-27 12:19 | Progress Note ---
Assessment and Plan Cultures: Blood culture no growth so far. A/P: 61 yo F with HTN, DM2 admitted with: #Severe COVID-19 pneumonia: Patient presented with a week of symptoms, chest x- ray with diffuse bilateral infiltrates, admission O2 sats decreased on room air. Inflammatory markers elevated. #Acute hypoxemic respiratory failure: Likely secondary to COVID-19 infection. On NRB/HFNC. #Diabetes: tight glycemic control for best outcomes. #Acute DVT: in right leg with subsegmental PE Recommendations: -completed steroids -completed remdesivir -Completed 5 days empiric antibiotics -s/p Actemra -Poor prognosis, agree with DNR/DNI status, may need hospice Jamila Cameron MD, FACP, [facility] ([facility] O: [phone] F: [phone] Subjective Date of service: 02/27/21 Principal diagnosis: COVID pneumonia Interval history: No fever. Remains on nonrebreather, HFNC. Objective - Exam Narrative Exam: Physical Exam: Constitutional: awake. Mild resp distress Head, Ears, Nose: Normocephalic, atraumatic. External ears, nose normal Eyes: Conjunctivae/corneas clear. No icterus. No ptosis. Neck: Supple, no meningeal signs Oral: Deferred due to COVID-19 Cardiovascular: S1, S2 + Respiratory: AE fair bilaterally GI: Soft, non-tender; bowel sounds normal. No peritoneal signs Musculoskeletal: No pedal edema, no cyanosis. Skin: No rash or abscess Hem/Lymphatic: No palpable cervical or supraclavicular nodes. No lymphangitis Psych: No agitation Neurological: Awake - Constitutional Vitals: Vital Signs Temp Pulse Resp BP Pulse Ox 98.9 F 81 22 125/84 89 02/27/21 12:06 02/27/21 10:00 02/27/21 10:00 02/27/21 10:00 02/27/21 10:00 Temperature -Last 24 Hours Temperature 98.9 F Temperature 97.9 F Temperature 98.5 F Temperature 97.8 F Temperature 98.2 F Temperature 97.8 F - Labs CBC & Chem 7: 02/27/21 04:57 02/27/21 04:57 Labs: Abnormal lab results 02/27/21 02/27/21 02/27/21 Range/Units 04:57 04:57 04:57 WBC 17.0 H (4.5-11.0) K/mm3 Hct 43.4 H (30.3-42.9) % Seg Neuts % (Manual) 84.0 H (40.0-70.0) % Lymphocytes % (Manual) 4.0 L (13.4-35.0) % Seg Neutrophils # Man 14.3 H (1.8-7.7) K/mm3 Lymphocytes # (Manual) 0.7 L (1.2-5.4) K/mm3 Monocytes # (Manual) 0.9 H (0.0-0.8) K/mm3 D-Dimer 5013.37 H (0-234) ng/mlDDU BUN 23 H (7-17) mg/dL Creatinine 0.5 L (0.6-1.2) mg/dL Glucose 113 H (65-100) mg/dL Ferritin (10.0-200.0) ng/mL Lactate Dehydrogenase 438 H (91-180) units/L C-Reactive Protein 5.80 H (0.00-1.30) mg/dL 02/27/21 Range/Units 04:57 WBC (4.5-11.0) K/mm3 Hct (30.3-42.9) % Seg Neuts % (Manual) (40.0-70.0) % Lymphocytes % (Manual) (13.4-35.0) % Seg Neutrophils # Man (1.8-7.7) K/mm3 Lymphocytes # (Manual) (1.2-5.4) K/mm3 Monocytes # (Manual) (0.0-0.8) K/mm3 D-Dimer (0-234) ng/mlDDU BUN (7-17) mg/dL Creatinine (0.6-1.2) mg/dL Glucose (65-100) mg/dL Ferritin 1272.0 H (10.0-200.0) ng/mL Lactate Dehydrogenase (91-180) units/L C-Reactive Protein (0.00-1.30) mg/dL
[2021-02-27] MEDS: INSULIN LISPRO 100 UNIT/ML SUB-Q SCH ×3 (12:50→23:33)
--- NOTE | 2021-02-27 13:42 | Progress Note ---
Assessment and Plan 61 y/o female with acute respiratory failure secondary to COVID 19 pneumonia. 02/27/21: Full code status. Prone as much as possible during the day and sleep prone at night. Patient may require intubation ultimately. Guarded prognosis. 02/26/21: Prone if possible. Continue anticoagulation for DVT. Steroids. Net negative fluid balance. 02/25/21: Long discussion at bedside with patient, whom per her, she has discussed this with her daughter. She does no want an endotracheal tube. She does not want chest compression and she does not want shocks. I did not ask about vasopressors. The patient is awake and alert and oriented. This needs to be addressed by primary team as well an if confirmed, I have no problem with cosigning AND order. Continue supportive measures for now. Guarded to poor prognosis. 02/21/21: BNP normal. Still would attempt to achieve net negative fluid balance daily. Continue Remdesivir and steroids. Prone if patient willing. Follow up CTA results. Discussed with IMS, may change anticoagulation but awaiting official ready on CTA. Guareded prognosis. 02/20/21: Follow up CTA results. Will send BNP. Continue steroids and Remdesivir. Guarded prognosis. Prone if able, very pertinent to do this. 1. self proning as tolerated during the day and prone at night while sleeping 2. Steroids and Remdesivir 3. Daily net negative volume state 4. Consider checking BNP and echo to make sure no edema on this film 5. Agree with empiric anticoagulation given elevated D-Dimer Guarded prognosis. Will continue to follow. Subjective Date of service: 02/27/21 Principal diagnosis: COVID pneumonia Interval history: Patient revoked AND and is now a Full Code Objective Vital Signs - 12hr 02/27/21 02/27/21 02/27/21 02:00 02:01 03:01 Temperature Pulse Rate 64 66 Pulse Rate [ 74 From Monitor] Respiratory 20 20 18 Rate Blood Pressure 59/37 139/87 O2 Sat by Pulse 94 92 75 L Oximetry 02/27/21 02/27/21 02/27/21 03:57 04:00 04:31 Temperature 98.5 F Pulse Rate 69 71 Pulse Rate [ From Monitor] Respiratory 16 25 H Rate Blood Pressure 115/76 115/76 O2 Sat by Pulse 96 93 Oximetry 02/27/21 02/27/21 02/27/21 05:01 05:31 06:00 Temperature Pulse Rate 74 69 67 Pulse Rate [ From Monitor] Respiratory 31 H 18 20 Rate Blood Pressure 110/75 110/75 103/60 O2 Sat by Pulse 92 94 93 Oximetry 02/27/21 02/27/21 02/27/21 06:31 07:00 07:31 Temperature Pulse Rate 73 65 64 Pulse Rate [ From Monitor] Respiratory 18 20 21 Rate Blood Pressure 103/60 104/66 104/66 O2 Sat by Pulse 94 92 86 Oximetry 02/27/21 02/27/21 02/27/21 07:50 08:00 08:31 Temperature 97.9 F Pulse Rate 72 68 Pulse Rate [ From Monitor] Respiratory 14 17 Rate Blood Pressure 104/66 105/67 O2 Sat by Pulse 87 88 Oximetry 02/27/21 02/27/21 02/27/21 09:00 09:31 09:57 Temperature Pulse Rate 70 75 78 Pulse Rate [ From Monitor] Respiratory 24 18 Rate Blood Pressure 111/68 111/68 111/68 O2 Sat by Pulse 91 90 Oximetry 02/27/21 02/27/21 10:00 12:06 Temperature 98.9 F Pulse Rate 81 Pulse Rate [ From Monitor] Respiratory 22 Rate Blood Pressure 125/84 O2 Sat by Pulse 89 Oximetry Constitutional: alert, other (on hiflo) ENT: oropharynx moist Neck: supple Ascultation: Bilateral: diminished breath sounds Cardiovascular: regular rate and rhythm Gastrointestinal: normoactive bowel sounds, soft, non-tender, non-distended Integumentary: normal Extremities: no cyanosis CBC and BMP: 02/27/21 04:57 02/27/21 04:57 ABG, PT/INR, D-dimer: ABG ABG pH 7.453 pH Units (7.350-7.450) H 02/20/21 18:46 ABG pCO2 38.9 mm Hg 02/20/21 18:46 ABG pO2 55.0 mm Hg (80.0-90.0) L 02/20/21 18:46 ABG O2 Saturation 88.3 % (95.0-99.0) L 02/20/21 18:46 PT/INR, D-dimer PT 13.9 Sec. (12.2-14.9) 02/17/21 14:34 INR 0.96 (0.87-1.13) 02/17/21 14:34 D-Dimer 5013.37 ng/mlDDU (0-234) H 02/27/21 04:57 Abnormal lab findings: Abnormal Labs 02/17/21 02/17/21 02/17/21 14:34 14:34 14:34 WBC 11.7 H RBC Hgb Hct 44.9 H RDW 15.6 H Seg Neuts % (Manual) Lymphocytes % (Manual) 9.0 L Monocytes % (Manual) 12.0 H Seg Neutrophils # Man 8.2 H Lymphocytes # (Manual) 1.1 L Monocytes # (Manual) 1.4 H D-Dimer ABG pH ABG pO2 ABG HCO3 ABG O2 Saturation Oxyhemoglobin Sodium Potassium 3.5 L Chloride BUN 27 H Creatinine Glucose 150 H POC Glucose Lactic Acid 2.90 H* Ferritin AST Lactate Dehydrogenase C-Reactive Protein NT-Pro-B Natriuret Pep Albumin Urine WBC (Auto) Coronavirus (PCR) 02/17/21 02/18/21 02/18/21 14:34 07:48 07:48 WBC 12.0 H RBC Hgb Hct RDW 15.4 H Seg Neuts % (Manual) 76.0 H Lymphocytes % (Manual) Monocytes % (Manual) Seg Neutrophils # Man 9.1 H Lymphocytes # (Manual) Monocytes # (Manual) D-Dimer ABG pH ABG pO2 ABG HCO3 ABG O2 Saturation Oxyhemoglobin Sodium Potassium Chloride BUN 36 H Creatinine Glucose 133 H POC Glucose Lactic Acid Ferritin AST 57 H Lactate Dehydrogenase C-Reactive Protein NT-Pro-B Natriuret Pep 1619 H Albumin 3.3 L Urine WBC (Auto) Coronavirus (PCR) 02/18/21 02/18/21 02/19/21 Unknown Unknown 07:32 WBC RBC Hgb Hct RDW Seg Neuts % (Manual) Lymphocytes % (Manual) Monocytes % (Manual) Seg Neutrophils # Man Lymphocytes # (Manual) Monocytes # (Manual) D-Dimer ABG pH ABG pO2 ABG HCO3 ABG O2 Saturation Oxyhemoglobin Sodium 148 H D Potassium Chloride BUN 41 H Creatinine Glucose 123 H POC Glucose Lactic Acid Ferritin AST 57 H Lactate Dehydrogenase C-Reactive Protein NT-Pro-B Natriuret Pep Albumin 3.7 L Urine WBC (Auto) 7.0 H Coronavirus (PCR) Positive A 02/19/21 02/19/21 02/20/21 07:32 08:43 05:00 WBC RBC Hgb Hct RDW Seg Neuts % (Manual) Lymphocytes % (Manual) Monocytes % (Manual) Seg Neutrophils # Man Lymphocytes # (Manual) Monocytes # (Manual) D-Dimer > 53766 H ABG pH ABG pO2 ABG HCO3 ABG O2 Saturation Oxyhemoglobin Sodium 147 H Potassium Chloride 107.6 H BUN 36 H Creatinine Glucose POC Glucose Lactic Acid Ferritin AST Lactate Dehydrogenase C-Reactive Protein 10.90 H NT-Pro-B Natriuret Pep Albumin 3.3 L Urine WBC (Auto) Coronavirus (PCR) 02/20/21 02/21/21 02/21/21 18:46 04:44 04:44 WBC 16.7 H RBC Hgb Hct RDW Seg Neuts % (Manual) Lymphocytes % (Manual) Monocytes % (Manual) Seg Neutrophils # Man Lymphocytes # (Manual) Monocytes # (Manual) D-Dimer ABG pH 7.453 H ABG pO2 55.0 L ABG HCO3 26.6 H ABG O2 Saturation 88.3 L Oxyhemoglobin 86.8 L Sodium Potassium Chloride BUN 26 H Creatinine Glucose 111 H POC Glucose Lactic Acid Ferritin AST Lactate Dehydrogenase C-Reactive Protein NT-Pro-B Natriuret Pep Albumin 3.4 L Urine WBC (Auto) Coronavirus (PCR) 02/22/21 02/23/21 02/23/21 04:47 09:05 09:05 WBC 19.3 H RBC 5.29 H Hgb 15.2 H Hct 47.7 H D RDW Seg Neuts % (Manual) 82.0 H Lymphocytes % (Manual) 6.0 L Monocytes % (Manual) Seg Neutrophils # Man 15.8 H Lymphocytes # (Manual) Monocytes # (Manual) 1.0 H D-Dimer ABG pH ABG pO2 ABG HCO3 ABG O2 Saturation Oxyhemoglobin Sodium Potassium Chloride BUN 25 H 27 H Creatinine Glucose 125 H POC Glucose Lactic Acid Ferritin AST Lactate Dehydrogenase C-Reactive Protein NT-Pro-B Natriuret Pep Albumin 3.3 L Urine WBC (Auto) Coronavirus (PCR) 02/23/21 02/23/21 02/24/21 11:33 16:24 04:50 WBC 14.8 H RBC Hgb Hct RDW Seg Neuts % (Manual) Lymphocytes % (Manual) Monocytes % (Manual) Seg Neutrophils # Man Lymphocytes # (Manual) Monocytes # (Manual) D-Dimer ABG pH ABG pO2 ABG HCO3 ABG O2 Saturation Oxyhemoglobin Sodium Potassium Chloride BUN Creatinine Glucose POC Glucose 117 H 163 H Lactic Acid Ferritin AST Lactate Dehydrogenase C-Reactive Protein NT-Pro-B Natriuret Pep Albumin Urine WBC (Auto) Coronavirus (PCR) 02/24/21 02/25/21 02/27/21 04:50 21:12 04:57 WBC 17.0 H RBC Hgb Hct 43.4 H RDW Seg Neuts % (Manual) 84.0 H Lymphocytes % (Manual) 4.0 L Monocytes % (Manual) Seg Neutrophils # Man 14.3 H Lymphocytes # (Manual) 0.7 L Monocytes # (Manual) 0.9 H D-Dimer ABG pH ABG pO2 ABG HCO3 ABG O2 Saturation Oxyhemoglobin Sodium Potassium Chloride BUN 23 H Creatinine Glucose POC Glucose 175 H Lactic Acid Ferritin AST Lactate Dehydrogenase C-Reactive Protein NT-Pro-B Natriuret Pep Albumin Urine WBC (Auto) Coronavirus (PCR) 02/27/21 02/27/21 02/27/21 04:57 04:57 04:57 WBC RBC Hgb Hct RDW Seg Neuts % (Manual) Lymphocytes % (Manual) Monocytes % (Manual) Seg Neutrophils # Man Lymphocytes # (Manual) Monocytes # (Manual) D-Dimer 5013.37 H ABG pH ABG pO2 ABG HCO3 ABG O2 Saturation Oxyhemoglobin Sodium Potassium Chloride BUN 23 H Creatinine 0.5 L Glucose 113 H POC Glucose Lactic Acid Ferritin 1272.0 H AST Lactate Dehydrogenase 438 H C-Reactive Protein 5.80 H NT-Pro-B Natriuret Pep Albumin Urine WBC (Auto) Coronavirus (PCR)
[2021-02-27] MEDS: ACETAMINOPHEN 325 MG TAB PO PRN (23:14)
--- NOTE | 2021-02-28 09:26 | Progress Note ---
Assessment and Plan Assessment and plan: Patient is 61 years old female with history of hypertension, diabetes and DVT currently on Eliquis. Patient brought to the emergency room via EMS from home for evaluation of shortness of breath cough and generalized weakness for the last 5 days. Patient stated that she tested positive for COVID-19 on February 10 and since then she has not been feeling well. EMS stated that patient initial oxygen saturation was 75% on room air improved to 86% on a nonrebreather. Patient stated that her daughter also tested positive. 02/19/2020 Patient on 50% Ventimask Covid positive Continue steroids May DC antibiotics Respiratory assessment and treatment 02/19: Patient still hypoxic, encourage prone positioning, Pulmonary and ID consult. Will obtain CTA chest to evaluate for PE. Continue steroid therapy and oxygen therapy wean as tolerated. Continuous pulse oximeter. Plan discussed with the patient. 02/20: Patient seen and examined, remains on NRBM. awaiting CT CHEST WITH ANGIO Ordered yesterday. Encourage proning the patient says she was not proned yesterday discussed with nursing staff. Continue steroid therapy and remdesivir. Patient was seen by ID and as documented by ID"She is a candidate for Actemra based on CRp and O2 requirements. unfortunately we have not been getting procalcitonin results. -ordered Actemra once (afebrile, white count only mildly elevated in the setting of steroids)" Discussed plan of care with the nurse. Also called to updated the patients sister listed as NOK but got voice mail 02/21: Continue steroids, remdesivir, patient received 1 dose of Actemra but unable to get the second dose due to availability. CTA showed dense consolidation but no effusion and no pulmonary embolism patient does have a lower extremity DVT. Eliquis continues at full dose of 5 mg twice daily we will continue to monitor closely. Prognosis is guarded counseling for compliance for 15 minutes. 02/22: Patient clinically not improving much of switch the patient to Lovenox. Prognosis remains guarded. Continue anticoagulation due to DVT still suspicious of pulmonary embolism as a result we will obtain echocardiogram and vascular consult per pulmonary request which I agree with. I will also transfer the patient to stepdown unit for closer monitoring. 02/23: Vascular input noted agree the patient has subsegmental bibasilar pulmonary embolism but not enough to warrant intervention. Does not feel that this is contributing majority to her hypoxia. Nevertheless we will switch patient from Eliquis to Lovenox. Continue current management with remdesivir 02/24: Patient seen and examined, remains on anticoagulation, continue remedsivir and steroids. prone as tolerated, will give additional lasix today. Guarded prognosis. 02/25 A&O x 3, C/O mild cough with mucoid expectorant. Denies CP or shortness of breath. Remains on HFNC. pulmonary note and lab results reviewed 02/26: AOX3, proning on encounter. Encouraged continued movement while in bed and with assistance of care staff. Remains on HFNC. Last day of decadron today. 02/27: Patient encouraged to continue proning and remain active. Discussed with PT to come work with patient to mobilize. Will d/w CM for joint terminal attack controller placement solution. 02/28: Patient stated she would like to be a full code. Working with CM for LTAC placement. (1) Acute respiratory failure with hypoxia Current Visit: Yes Status: Acute Plan to address problem: 2/2 covid PNA she is on HFNC at 40L and 100% Fio2 O2 sat 90% pulmonary following cont. Decadron - stop date 02/26 wean as tolerated (2) SIRS (systemic inflammatory response syndrome) Current Visit: Yes Status: Acute Plan to address problem: Clinical picture consistent with Sirs (3) Multifocal pneumonia Current Visit: Yes Status: Acute Plan to address problem: 2/2 covid 19 off Abx (4)COVID-19 virus infection Current Visit: Yes Status: Acute Plan to address problem: completed remdesivir cont. decadron - stop date 02/26 proning as tolerated (5) Hypertension Current Visit: Yes Status: Chronic Qualifiers: Hypertension type: primary hypertension Qualified Code(s): I10 - Essential (primary) hypertension Plan to address problem: Fair cont. present medications (6) T2DM (type 2 diabetes mellitus) Current Visit: Yes Status: Chronic Qualifiers: Diabetes mellitus joint terminal attack controller insulin use: unspecified joint terminal attack controller insulin use status Plan to address problem: Continue Metformin and ISS coverage (7) Hypernatremia resolved (8) DVT LOWER EXT- RIGHT / and sub segmental PE cont. therapeutic lovenox (9) DVT prophylaxis Current Visit: Yes Status: Acute CODE STATUS: AND/DNR The high probability of a clinically significant, sudden or life threatening deterioration of the [pulmonary] system(s) required my full and direct attention, intervention and personal management. The aggregate critical care time was [60] minutes. This time is in addition to time spent performing reported procedures but includes the following: [X] Data Review and interpretation [X] Patient assessment and monitoring of vital signs [X] Documentation [X] Medication orders and management History Interval history: No overnight events. Hospitalist Physical - Physical exam Narrative exam: Physical Exam: Constitutional: Alert, cooperative. Mild resp distress Head, Ears, Nose: Normocephalic, atraumatic. External ears, nose normal Eyes: Conjunctivae/corneas clear. No icterus. No ptosis. Neck: Supple, no meningeal signs Oral: Deferred due to COVID-19 Cardiovascular: S1, S2 + Respiratory: AE fair bilaterally GI: Soft, non-tender; bowel sounds normal. No peritoneal signs Musculoskeletal: No pedal edema, no cyanosis. Skin: No rash or abscess Hem/Lymphatic: No palpable cervical or supraclavicular nodes. No lymphangitis Psych: No agitation Neurological: Awake, alert - Constitutional Vitals: Temp Pulse Resp BP Pulse Ox 98.9 F 85 26 H 130/86 87 02/28/21 08:00 02/28/21 08:00 02/28/21 08:00 02/28/21 08:00 02/28/21 08:00 General appearance: Present: no acute distress, well-nourished Results - Labs CBC & Chem 7: 02/27/21 04:57 02/27/21 04:57 Labs: Laboratory Last Values WBC 17.0 K/mm3 (4.5-11.0) H 02/27/21 04:57 RBC 4.90 M/mm3 (3.65-5.03) 02/27/21 04:57 Hgb 13.9 gm/dl (10.1-14.3) 02/27/21 04:57 Hct 43.4 % (30.3-42.9) H 02/27/21 04:57 MCV 89 fl (79-97) 02/27/21 04:57 MCH 29 pg (28-32) 02/27/21 04:57 MCHC 32 % (30-34) 02/27/21 04:57 RDW 14.6 % (13.2-15.2) 02/27/21 04:57 Plt Count 361 K/mm3 (140-440) 02/27/21 04:57 Add Manual Diff Complete 02/27/21 04:57 Total Counted 100 02/27/21 04:57 Seg Neuts % (Manual) 84.0 % (40.0-70.0) H 02/27/21 04:57 Band Neutrophils % 1.0 % 02/27/21 04:57 Lymphocytes % (Manual) 4.0 % (13.4-35.0) L 02/27/21 04:57 Reactive Lymphs % (Man) 1.0 % 02/27/21 04:57 Monocytes % (Manual) 5.0 % (0.0-7.3) 02/27/21 04:57 Eosinophils % (Manual) 0 % (0.0-4.3) 02/27/21 04:57 Basophils % (Manual) 0 % (0.0-1.8) 02/27/21 04:57 Metamyelocytes % 1.0 % 02/27/21 04:57 Myelocytes % 4.0 % 02/27/21 04:57 Promyelocytes % 0 % 02/27/21 04:57 Blast Cells % 0 % 02/27/21 04:57 Nucleated RBC % Not Reportable 02/27/21 04:57 Seg Neutrophils # Man 14.3 K/mm3 (1.8-7.7) H 02/27/21 04:57 Band Neutrophils # 0.2 K/mm3 02/27/21 04:57 Lymphocytes # (Manual) 0.7 K/mm3 (1.2-5.4) L 02/27/21 04:57 Abs React Lymphs (Man) 0.2 K/mm3 02/27/21 04:57 Monocytes # (Manual) 0.9 K/mm3 (0.0-0.8) H 02/27/21 04:57 Eosinophils # (Manual) 0.0 K/mm3 (0.0-0.4) 02/27/21 04:57 Basophils # (Manual) 0.0 K/mm3 (0.0-0.1) 02/27/21 04:57 Metamyelocytes # 0.2 K/mm3 02/27/21 04:57 Myelocytes # 0.7 K/mm3 02/27/21 04:57 Promyelocytes # 0.0 K/mm3 02/27/21 04:57 Blast Cells # 0.0 K/mm3 02/27/21 04:57 WBC Morphology Not Reportable 02/27/21 04:57 Hypersegmented Neuts Not Reportable 02/27/21 04:57 Hyposegmented Neuts Not Reportable 02/27/21 04:57 Hypogranular Neuts Not Reportable 02/27/21 04:57 Smudge Cells Not Reportable 02/27/21 04:57 Toxic Granulation Not Reportable 02/27/21 04:57 Toxic Vacuolation Few 02/27/21 04:57 Dohle Bodies Not Reportable 02/27/21 04:57 Pelger-Huet Anomaly Not Reportable 02/27/21 04:57 Cindy Rods Not Reportable 02/27/21 04:57 Platelet Estimate Consistent w auto 02/27/21 04:57 Clumped Platelets Not Reportable 02/27/21 04:57 Plt Clumps, EDTA Not Reportable 02/27/21 04:57 Large Platelets Not Reportable 02/27/21 04:57 Giant Platelets Not Reportable 02/27/21 04:57 Platelet Satelliting Not Reportable 02/27/21 04:57 Plt Morphology Comment Not Reportable 02/27/21 04:57 RBC Morphology Not Reportable 02/27/21 04:57 Dimorphic RBCs Not Reportable 02/27/21 04:57 Polychromasia Not Reportable 02/27/21 04:57 Hypochromasia Not Reportable 02/27/21 04:57 Poikilocytosis Not Reportable 02/27/21 04:57 Anisocytosis Not Reportable 02/27/21 04:57 Microcytosis Not Reportable 02/27/21 04:57 Macrocytosis Not Reportable 02/27/21 04:57 Spherocytes Not Reportable 02/27/21 04:57 Pappenheimer Bodies Not Reportable 02/27/21 04:57 Sickle Cells Not Reportable 02/27/21 04:57 Target Cells Not Reportable 02/27/21 04:57 Tear Drop Cells Not Reportable 02/27/21 04:57 Ovalocytes Few 02/27/21 04:57 Helmet Cells Not Reportable 02/27/21 04:57 [place] Bodies Not Reportable 02/27/21 04:57 Dillwyn Rings Not Reportable 02/27/21 04:57 Alicia Cells Not Reportable 02/27/21 04:57 Bite Cells Not Reportable 02/27/21 04:57 Crenated Cell Not Reportable 02/27/21 04:57 Elliptocytes Not Reportable 02/27/21 04:57 Acanthocytes (Spur) Not Reportable 02/27/21 04:57 Rouleaux Not Reportable 02/27/21 04:57 Hemoglobin C Crystals Not Reportable 02/27/21 04:57 Schistocytes Not Reportable 02/27/21 04:57 Malaria parasites Not Reportable 02/27/21 04:57 Pedro Pablo Bodies Not Reportable 02/27/21 04:57 Hem Pathologist Commnt No 02/27/21 04:57 PT 13.9 Sec. (12.2-14.9) 02/17/21 14:34 INR 0.96 (0.87-1.13) 02/17/21 14:34 APTT 26.4 Sec. (24.2-36.6) 02/17/21 14:34 D-Dimer 5013.37 ng/mlDDU (0-234) H 02/27/21 04:57 ABG pH 7.453 pH Units (7.350-7.450) H 02/20/21 18:46 ABG pCO2 38.9 mm Hg 02/20/21 18:46 ABG pO2 55.0 mm Hg (80.0-90.0) L 02/20/21 18:46 ABG HCO3 26.6 mmol/L (20.0-26.0) H 02/20/21 18:46 ABG O2 Saturation 88.3 % (95.0-99.0) L 02/20/21 18:46 ABG Base Excess 2.6 mmol/L (-2.0-3.0) 02/20/21 18:46 ABG Hemoglobin 14.4 gm/dl (12.0-16.0) 02/20/21 18:46 ABG Carboxyhemoglobin 1.4 % (0.0-5.0) 02/20/21 18:46 ABG Methemoglobin 0.3 % (0.0-1.5) 02/20/21 18:46 Oxyhemoglobin 86.8 % (95.0-99.0) L 02/20/21 18:46 FiO2 100 % 02/20/21 18:46 Sodium 138 mmol/L (137-145) 02/27/21 04:57 Potassium 3.8 mmol/L (3.6-5.0) 02/27/21 04:57 Chloride 98.4 mmol/L (98-107) 02/27/21 04:57 Carbon Dioxide 26 mmol/L (22-30) 02/27/21 04:57 Anion Gap 17 mmol/L 02/27/21 04:57 BUN 23 mg/dL (7-17) H 02/27/21 04:57 Creatinine 0.5 mg/dL (0.6-1.2) L 02/27/21 04:57 Estimated GFR > 60 ml/min 02/27/21 04:57 BUN/Creatinine Ratio 46 % 02/27/21 04:57 Glucose 113 mg/dL (65-100) H 02/27/21 04:57 POC Glucose 123 mg/dL (70-105) H 02/28/21 07:40 Lactic Acid 1.60 mmol/L (0.7-2.0) 02/17/21 18:39 Calcium 9.3 mg/dL (8.4-10.2) 02/27/21 04:57 Ferritin 1272.0 ng/mL (10.0-200.0) H 02/27/21 04:57 Total Bilirubin 0.30 mg/dL (0.1-1.2) 02/22/21 04:47 Direct Bilirubin < 0.2 mg/dL (0-0.2) 02/17/21 14:34 Indirect Bilirubin 0.1 mg/dL 02/17/21 14:34 AST 24 units/L (5-40) 02/22/21 04:47 ALT 27 units/L (7-56) 02/22/21 04:47 Alkaline Phosphatase 66 units/L (35-129) 02/22/21 04:47 Lactate Dehydrogenase 438 units/L (91-180) H 02/27/21 04:57 C-Reactive Protein 5.80 mg/dL (0.00-1.30) H 02/27/21 04:57 NT-Pro-B Natriuret Pep 86.77 pg/mL (0-900) 02/20/21 16:34 Total Protein 7.3 g/dL (6.3-8.2) 02/22/21 04:47 Albumin 3.3 g/dL (3.9-5) L 02/22/21 04:47 Albumin/Globulin Ratio 0.8 % 02/22/21 04:47 Urine Color Cassandra (Yellow) 02/18/21 Unknown Urine Turbidity Cloudy (Clear) 02/18/21 Unknown Urine pH 5.0 (5.0-7.0) 02/18/21 Unknown Ur Specific [place] 1.027 (1.003-1.030) 02/18/21 Unknown Urine Protein 100 mg/dl mg/dL (Negative) 02/18/21 Unknown Urine Glucose (UA) Neg mg/dL (Negative) 02/18/21 Unknown Urine Ketones Neg mg/dL (Negative) 02/18/21 Unknown Urine Blood Neg (Negative) 02/18/21 Unknown Urine Nitrite Neg (Negative) 02/18/21 Unknown Urine Bilirubin Neg (Negative) 02/18/21 Unknown Urine Urobilinogen < 2.0 mg/dL (<2.0) 02/18/21 Unknown Ur Leukocyte Esterase Neg (Negative) 02/18/21 Unknown Urine WBC (Auto) 7.0 /HPF (0.0-6.0) H 02/18/21 Unknown Urine RBC (Auto) 4.0 /HPF (0.0-6.0) 02/18/21 Unknown U Epithel Cells (Auto) 3.0 /HPF (0-13.0) 02/18/21 Unknown Urine Mucus 2+ /HPF 02/18/21 Unknown Coronavirus (PCR) Positive (Negative) A 02/18/21 Unknown Head/IV: Voiding Method External Female Catheter Active Medications - Current Medications Current Medications: Generic Name Dose Route Start Last Admin Trade Name Freq PRN Reason Stop Dose Admin Acetaminophen 650 mg 02/17/21 23:58 02/27/21 23:14 Acetaminophen 325 Mg Tab PO 650 mg Q4H PRN Administration Pain MILD(1-3)/Fever >100.5/BROWN Amlodipine Besylate 10 mg 02/19/21 10:00 02/27/21 09:57 Amlodipine 10 Mg Tab PO 10 mg DAILY DEISY Administration Ascorbic Acid 1,000 mg 02/19/21 10:00 02/27/21 23:14 Ascorbic Acid 500 Mg Tab PO 1,000 mg BID DEISY Administration Cholecalciferol 5,000 unit 02/19/21 10:00 02/27/21 09:58 Cholecalciferol (Vit D3) 5,000 Unit Tab PO 5,000 unit DAILY DEISY Administration Dextrose 50 ml 02/27/21 11:30 Dextrose 50% In Water (25gm) 50 Ml Syringe IV Q30MIN PRN Hypoglycemia Protocol Enoxaparin Sodium 90 mg 02/22/21 10:00 02/27/21 23:15 Enoxaparin 100 Mg/1 Ml Inj 1 mg/kg (90 mg) 90 mg SUB-Q Administration Q12HR [facility] Protocol Famotidine 20 mg 02/18/21 10:00 02/27/21 23:14 Famotidine 20 Mg Tab PO 20 mg BID DEISY Administration Furosemide 40 mg 02/18/21 08:00 02/27/21 09:57 Furosemide 40 Mg/4 Ml Inj IV 40 mg 0800 DEISY Administration Gabapentin 400 mg 02/19/21 04:00 02/27/21 23:14 Gabapentin 400 Mg Cap PO 400 mg BID DEISY Administration Hydromorphone HCl 0.5 mg 02/17/21 23:58 Hydromorphone 1 Mg/1 Ml Inj IV Q3H PRN Pain , Severe (7-10) Insulin Human Lispro 0 unit 02/27/21 11:30 02/27/21 23:33 Insulin Lispro 100 Unit/Ml SUB-Q Not Given ACHS [facility] Protocol Ondansetron HCl 4 mg 02/17/21 23:58 Ondansetron 4 Mg/2 Ml Inj IV Q8H PRN Nausea And Vomiting Oxycodone/Acetaminophen 1 tab 02/17/21 23:58 02/27/21 04:22 Oxycodone /Acetaminophen 5-325mg Tab PO 1 tab Q6H PRN Administration Pain, Moderate (4-6) Sertraline HCl 50 mg 02/19/21 10:00 02/27/21 09:58 Sertraline 50 Mg Tab PO 50 mg QDAY DEISY Administration Sodium Chloride 10 ml 02/18/21 10:00 02/27/21 23:33 Sodium Chloride 0.9% 10 Ml Flush Syringe IV 10 ml BID DEISY Administration Sodium Chloride 10 ml 02/17/21 23:58 Sodium Chloride 0.9% 10 Ml Flush Syringe IV PRN PRN LINE FLUSH Zinc Sulfate 220 mg 02/19/21 10:00 02/27/21 09:58 Zinc Sulfate 220 Mg Cap PO 220 mg QDAY DEISY Administration Nutrition/Malnutrition Assess - Dietary Evaluation Nutrition/Malnutrition Findings: Nutrition Notes Start: 02/25/21 16:10 Freq: Status: Active Protocol: Document 02/25/21 16:10 ALEC (Rec: 02/25/21 16:47 ALEC [id number]) Nutrition Notes Need for Assessment generated from: LOS Initial or Follow up Assessment Current Diagnosis Diabetes,Hypertension, Respiratory Failure Other Pertinent Diagnosis COVID-19 pneumonia, SIRS. Current Diet Cardiac Diet (since B 02/18). Labs/Tests 02/24" BUN 23. Pertinent Medications 02/25: Vit C, Vit D3, ZnSO4, others nutritionally unremarkable. Height 5 ft 6 in Weight 86.183 kg [place] Body Weight (kg) 59.09 BMI 30.7 Intake Prior to Admission Good Weight change and time frame None, according to admission report. Weight Status Obese Subjective/Other Information RD consult for LOS assessment. Pt on NIV/Bi-Pap+. No report available on Pt's % PO intake of meals at the time . F/U on PO intake of meals assessment. Percent of energy/protein needs met: Prescribed Cardiac Diet provides for energy/protein needs (2,230 Kcal/85 g) during LOS. Burn Absent Trauma Absent GI Symptoms None Food Allergy No Skin Integrity/Comment Clear, warm, dry. Minimum of two criteria No Is patient on ventilator? No Is Patient Ambulatory and/or Out of Bed Yes REE-([facility]-ambulatory/OOB) [ 1876.654 [id number]] Kcal/Kg value to use for calculation 13 Approximate Energy Requirements Using 1120 kcal/Kg Calculation Used for Recommendations Kcal/kg Additional Notes Protein: >2 g/Kg; >118 g/day. Fluids: 1 ml/Kcal, or as per MD. Nutrition Intervention Change Diet Order: Continue Cardiac Diet. Follow-Up By: 03/04/21 Additional Comments Continue monitoring food tolerance, %PO intake of meals , and BM.
[2021-02-28] MEDS: INSULIN LISPRO 100 UNIT/ML SUB-Q SCH ×3 (10:13→22:35)
[2021-02-28] MEDS: SERTRALINE 50 MG TAB PO SCH (10:25)
[2021-02-28] MEDS: ENOXAPARIN 100 MG/1 ML INJ SUB-Q SCH ×2 (10:25→22:39)
[2021-02-28] MEDS: ASCORBIC ACID 500 MG TAB PO SCH ×2 (10:25→22:39)
[2021-02-28] MEDS: CHOLECALCIFEROL (VIT D3) 5,000 UNIT TAB PO SCH (10:25)
[2021-02-28] MEDS: FUROSEMIDE 40 MG/4 ML INJ IV SCH (10:25)
[2021-02-28] MEDS: GABAPENTIN 400 MG CAP PO SCH ×2 (10:25→22:39)
[2021-02-28] MEDS: amLODIPine 10 MG TAB PO SCH (10:25)
[2021-02-28] MEDS: FAMOTIDINE 20 MG TAB PO SCH ×2 (10:25→22:39)
[2021-02-28] MEDS: ZINC SULFATE 220 MG CAP PO SCH (10:26)
--- NOTE | 2021-02-28 12:55 | Progress Note ---
Assessment and Plan Cultures: Blood culture no growth so far. A/P: 61 yo F with HTN, DM2 admitted with: #Severe COVID-19 pneumonia: Patient presented with a week of symptoms, chest x- ray with diffuse bilateral infiltrates, admission O2 sats decreased on room air. Inflammatory markers elevated. #Acute hypoxemic respiratory failure: Likely secondary to COVID-19 infection. On NRB/HFNC. #Diabetes: tight glycemic control for best outcomes. #Acute DVT: in right leg with subsegmental PE Recommendations: -completed steroids -completed remdesivir -Completed 5 days empiric antibiotics -s/p Actemra -Poor prognosis Will sign off. Jamila Cameron MD, FACP, [facility] ([facility] O: [phone] F: [phone] Subjective Date of service: 02/28/21 Principal diagnosis: COVID pneumonia Interval history: No fever. Remains on nonrebreather, HFNC. Objective - Exam Narrative Exam: Physical Exam: (reviewed in chart, deferred to minimize risk of transmission) - Constitutional Vitals: Vital Signs Temp Pulse Resp BP Pulse Ox 98.7 F 87 24 135/85 84 02/28/21 12:00 02/28/21 12:00 02/28/21 12:00 02/28/21 12:00 02/28/21 12:00 Temperature -Last 24 Hours Temperature 98.7 F Temperature 98.9 F Temperature 99.0 F Temperature 99.3 F Temperature 97.9 F Temperature 98.4 F - Labs CBC & Chem 7: 02/27/21 04:57 02/27/21 04:57 Labs: Abnormal lab results 02/27/21 02/27/21 02/28/21 Range/Units 17:53 21:12 07:40 POC Glucose 159 H 112 H 123 H (70-105) mg/dL 02/28/21 Range/Units 11:42 POC Glucose 112 H (70-105) mg/dL
--- NOTE | 2021-02-28 14:40 | Progress Note ---
Assessment and Plan 61 y/o female with acute respiratory failure secondary to COVID 19 pneumonia. 02/28/21: Prone. Steroids. Net negative fluid balance if possible. Guarded prognosis. 02/27/21: Full code status. Prone as much as possible during the day and sleep prone at night. Patient may require intubation ultimately. Guarded prognosis. 02/26/21: Prone if possible. Continue anticoagulation for DVT. Steroids. Net negative fluid balance. 02/25/21: Long discussion at bedside with patient, whom per her, she has discussed this with her daughter. She does no want an endotracheal tube. She does not want chest compression and she does not want shocks. I did not ask about vasopressors. The patient is awake and alert and oriented. This needs to be addressed by primary team as well an if confirmed, I have no problem with cosigning AND order. Continue supportive measures for now. Guarded to poor prognosis. 02/21/21: BNP normal. Still would attempt to achieve net negative fluid balance daily. Continue Remdesivir and steroids. Prone if patient willing. Follow up CTA results. Discussed with IMS, may change anticoagulation but awaiting official ready on CTA. Guareded prognosis. 02/20/21: Follow up CTA results. Will send BNP. Continue steroids and Remdesivir. Guarded prognosis. Prone if able, very pertinent to do this. 1. self proning as tolerated during the day and prone at night while sleeping 2. Steroids and Remdesivir 3. Daily net negative volume state 4. Consider checking BNP and echo to make sure no edema on this film 5. Agree with empiric anticoagulation given elevated D-Dimer Guarded prognosis. Will continue to follow. Subjective Date of service: 02/28/21 Principal diagnosis: COVID pneumonia Interval history: No acute events. Clinical status is unchanged Objective Vital Signs - 12hr 02/28/21 02/28/21 02/28/21 03:00 03:31 04:00 Temperature 99.0 F Pulse Rate 79 82 82 Respiratory 22 23 24 Rate Blood Pressure 100/65 100/65 114/79 O2 Sat by Pulse 89 91 86 Oximetry 02/28/21 02/28/21 02/28/21 04:31 05:00 05:05 Temperature Pulse Rate 85 85 83 Respiratory 31 H 23 Rate Blood Pressure 114/79 112/70 O2 Sat by Pulse 90 90 Oximetry 02/28/21 02/28/2102/28/22 05:31 06:00 06:31 Temperature Pulse Rate 90 87 82 Respiratory 31 H 31 H 27 H Rate Blood Pressure 112/70 102/69 102/69 O2 Sat by Pulse 82 L 83 L 86 Oximetry 02/28/21 02/28/21 02/28/21 07:00 07:31 07:39 Temperature Pulse Rate 83 86 Respiratory 22 23 Rate Blood Pressure 119/84 119/84 O2 Sat by Pulse 87 88 40 L Oximetry 02/28/21 02/28/21 02/28/21 08:00 08:30 09:00 Temperature 98.9 F Pulse Rate 85 92 H 103 H Respiratory 26 H 28 H 44 H Rate Blood Pressure 130/86 130/86 130/86 O2 Sat by Pulse 87 80 L 87 Oximetry 02/28/21 02/28/21 02/28/21 09:30 10:00 10:25 Temperature Pulse Rate 88 86 85 Respiratory 26 H 24 Rate Blood Pressure 109/68 120/76 120/76 O2 Sat by Pulse 90 86 Oximetry 02/28/21 02/28/21 02/28/21 10:30 11:00 11:30 Temperature Pulse Rate 85 86 88 Respiratory 24 24 22 Rate Blood Pressure 120/76 121/78 121/78 O2 Sat by Pulse 90 88 84 Oximetry 02/28/21 12:00 Temperature 98.7 F Pulse Rate 87 Respiratory 24 Rate Blood Pressure 135/85 O2 Sat by Pulse 84 Oximetry Constitutional: alert, other (on hiflo) ENT: oropharynx moist Neck: supple Ascultation: Bilateral: diminished breath sounds Cardiovascular: regular rate and rhythm Gastrointestinal: normoactive bowel sounds, soft, non-tender, non-distended Integumentary: normal Extremities: no cyanosis CBC and BMP: 03/01/21 05:12 03/01/21 05:12 ABG, PT/INR, D-dimer: ABG ABG pH 7.453 pH Units (7.350-7.450) H 02/20/21 18:46 ABG pCO2 38.9 mm Hg 02/20/21 18:46 ABG pO2 55.0 mm Hg (80.0-90.0) L 02/20/21 18:46 ABG O2 Saturation 88.3 % (95.0-99.0) L 02/20/21 18:46 PT/INR, D-dimer PT 13.9 Sec. (12.2-14.9) 02/17/21 14:34 INR 0.96 (0.87-1.13) 02/17/21 14:34 D-Dimer 5013.37 ng/mlDDU (0-234) H 02/27/21 04:57 Abnormal lab findings: Abnormal Labs 02/17/21 02/17/21 02/17/21 14:34 14:34 14:34 WBC 11.7 H RBC Hgb Hct 44.9 H RDW 15.6 H Seg Neuts % (Manual) Lymphocytes % (Manual) 9.0 L Monocytes % (Manual) 12.0 H Seg Neutrophils # Man 8.2 H Lymphocytes # (Manual) 1.1 L Monocytes # (Manual) 1.4 H D-Dimer ABG pH ABG pO2 ABG HCO3 ABG O2 Saturation Oxyhemoglobin Sodium Potassium 3.5 L Chloride BUN 27 H Creatinine Glucose 150 H POC Glucose Lactic Acid 2.90 H* Ferritin AST Lactate Dehydrogenase C-Reactive Protein NT-Pro-B Natriuret Pep Albumin Urine WBC (Auto) Coronavirus (PCR) 02/17/21 02/18/21 02/18/21 14:34 07:48 07:48 WBC 12.0 H RBC Hgb Hct RDW 15.4 H Seg Neuts % (Manual) 76.0 H Lymphocytes % (Manual) Monocytes % (Manual) Seg Neutrophils # Man 9.1 H Lymphocytes # (Manual) Monocytes # (Manual) D-Dimer ABG pH ABG pO2 ABG HCO3 ABG O2 Saturation Oxyhemoglobin Sodium Potassium Chloride BUN 36 H Creatinine Glucose 133 H POC Glucose Lactic Acid Ferritin AST 57 H Lactate Dehydrogenase C-Reactive Protein NT-Pro-B Natriuret Pep 1619 H Albumin 3.3 L Urine WBC (Auto) Coronavirus (PCR) 02/18/21 02/18/21 02/19/21 Unknown Unknown 07:32 WBC RBC Hgb Hct RDW Seg Neuts % (Manual) Lymphocytes % (Manual) Monocytes % (Manual) Seg Neutrophils # Man Lymphocytes # (Manual) Monocytes # (Manual) D-Dimer ABG pH ABG pO2 ABG HCO3 ABG O2 Saturation Oxyhemoglobin Sodium 148 H D Potassium Chloride BUN 41 H Creatinine Glucose 123 H POC Glucose Lactic Acid Ferritin AST 57 H Lactate Dehydrogenase C-Reactive Protein NT-Pro-B Natriuret Pep Albumin 3.7 L Urine WBC (Auto) 7.0 H Coronavirus (PCR) Positive A 02/19/21 02/19/21 02/20/21 07:32 08:43 05:00 WBC RBC Hgb Hct RDW Seg Neuts % (Manual) Lymphocytes % (Manual) Monocytes % (Manual) Seg Neutrophils # Man Lymphocytes # (Manual) Monocytes # (Manual) D-Dimer > 24913 H ABG pH ABG pO2 ABG HCO3 ABG O2 Saturation Oxyhemoglobin Sodium 147 H Potassium Chloride 107.6 H BUN 36 H Creatinine Glucose POC Glucose Lactic Acid Ferritin AST Lactate Dehydrogenase C-Reactive Protein 10.90 H NT-Pro-B Natriuret Pep Albumin 3.3 L Urine WBC (Auto) Coronavirus (PCR) 02/20/21 02/21/21 02/21/21 18:46 04:44 04:44 WBC 16.7 H RBC Hgb Hct RDW Seg Neuts % (Manual) Lymphocytes % (Manual) Monocytes % (Manual) Seg Neutrophils # Man Lymphocytes # (Manual) Monocytes # (Manual) D-Dimer ABG pH 7.453 H ABG pO2 55.0 L ABG HCO3 26.6 H ABG O2 Saturation 88.3 L Oxyhemoglobin 86.8 L Sodium Potassium Chloride BUN 26 H Creatinine Glucose 111 H POC Glucose Lactic Acid Ferritin AST Lactate Dehydrogenase C-Reactive Protein NT-Pro-B Natriuret Pep Albumin 3.4 L Urine WBC (Auto) Coronavirus (PCR) 02/22/21 02/23/21 02/23/21 04:47 09:05 09:05 WBC 19.3 H RBC 5.29 H Hgb 15.2 H Hct 47.7 H D RDW Seg Neuts % (Manual) 82.0 H Lymphocytes % (Manual) 6.0 L Monocytes % (Manual) Seg Neutrophils # Man 15.8 H Lymphocytes # (Manual) Monocytes # (Manual) 1.0 H D-Dimer ABG pH ABG pO2 ABG HCO3 ABG O2 Saturation Oxyhemoglobin Sodium Potassium Chloride BUN 25 H 27 H Creatinine Glucose 125 H POC Glucose Lactic Acid Ferritin AST Lactate Dehydrogenase C-Reactive Protein NT-Pro-B Natriuret Pep Albumin 3.3 L Urine WBC (Auto) Coronavirus (PCR) 02/23/21 02/23/21 02/24/21 11:33 16:24 04:50 WBC 14.8 H RBC Hgb Hct RDW Seg Neuts % (Manual) Lymphocytes % (Manual) Monocytes % (Manual) Seg Neutrophils # Man Lymphocytes # (Manual) Monocytes # (Manual) D-Dimer ABG pH ABG pO2 ABG HCO3 ABG O2 Saturation Oxyhemoglobin Sodium Potassium Chloride BUN Creatinine Glucose POC Glucose 117 H 163 H Lactic Acid Ferritin AST Lactate Dehydrogenase C-Reactive Protein NT-Pro-B Natriuret Pep Albumin Urine WBC (Auto) Coronavirus (PCR) 02/24/21 02/25/21 02/27/21 04:50 21:12 04:57 WBC 17.0 H RBC Hgb Hct 43.4 H RDW Seg Neuts % (Manual) 84.0 H Lymphocytes % (Manual) 4.0 L Monocytes % (Manual) Seg Neutrophils # Man 14.3 H Lymphocytes # (Manual) 0.7 L Monocytes # (Manual) 0.9 H D-Dimer ABG pH ABG pO2 ABG HCO3 ABG O2 Saturation Oxyhemoglobin Sodium Potassium Chloride BUN 23 H Creatinine Glucose POC Glucose 175 H Lactic Acid Ferritin AST Lactate Dehydrogenase C-Reactive Protein NT-Pro-B Natriuret Pep Albumin Urine WBC (Auto) Coronavirus (PCR) 02/27/21 02/27/21 02/27/21 04:57 04:57 04:57 WBC RBC Hgb Hct RDW Seg Neuts % (Manual) Lymphocytes % (Manual) Monocytes % (Manual) Seg Neutrophils # Man Lymphocytes # (Manual) Monocytes # (Manual) D-Dimer 5013.37 H ABG pH ABG pO2 ABG HCO3 ABG O2 Saturation Oxyhemoglobin Sodium Potassium Chloride BUN 23 H Creatinine 0.5 L Glucose 113 H POC Glucose Lactic Acid Ferritin 1272.0 H AST Lactate Dehydrogenase 438 H C-Reactive Protein 5.80 H NT-Pro-B Natriuret Pep Albumin Urine WBC (Auto) Coronavirus (PCR) 02/27/21 02/27/21 02/28/21 17:53 21:12 07:40 WBC RBC Hgb Hct RDW Seg Neuts % (Manual) Lymphocytes % (Manual) Monocytes % (Manual) Seg Neutrophils # Man Lymphocytes # (Manual) Monocytes # (Manual) D-Dimer ABG pH ABG pO2 ABG HCO3 ABG O2 Saturation Oxyhemoglobin Sodium Potassium Chloride BUN Creatinine Glucose POC Glucose 159 H 112 H 123 H Lactic Acid Ferritin AST Lactate Dehydrogenase C-Reactive Protein NT-Pro-B Natriuret Pep Albumin Urine WBC (Auto) Coronavirus (PCR) 02/28/21 11:42 WBC RBC Hgb Hct RDW Seg Neuts % (Manual) Lymphocytes % (Manual) Monocytes % (Manual) Seg Neutrophils # Man Lymphocytes # (Manual) Monocytes # (Manual) D-Dimer ABG pH ABG pO2 ABG HCO3 ABG O2 Saturation Oxyhemoglobin Sodium Potassium Chloride BUN Creatinine Glucose POC Glucose 112 H Lactic Acid Ferritin AST Lactate Dehydrogenase C-Reactive Protein NT-Pro-B Natriuret Pep Albumin Urine WBC (Auto) Coronavirus (PCR)
--- NOTE | 2021-03-01 04:12 | XRay Report ---
CHEST - 1 VIEW INDICATION: covid 19 pna COMPARISON: 02/17/2021 FINDINGS: SUPPORT DEVICES: Stable support device positioning. HEART: Stable cardiomediastinal silhouette. LUNGS/PLEURA: Mild-moderate patchy multifocal airspace disease. ADDITIONAL FINDINGS: None. IMPRESSION: Unchanged exam. Signer Name: Juanito Her MD Signed: 03/01/2021 4:07 AM Workstation Name: [id number]
[2021-03-01 06:05] LABS: Alanine Aminotransferase 24 units/L (7-56); Albumin 2.8 g/dL (3.9-5); BUN/Creatinine Ratio 34; Blood Urea Nitrogen 17 mg/dL (7-17); Hemolysis Index 1
[2021-03-01 06:12] LABS: Hematocrit 44.7 % (30.3-42.9); Mean Corpuscular HGB Conc 31 % (30-34); Mean Corpuscular Volume 89 fl (79-97); Platelet Count 353 K/mm3 (140-440); Red Blood Count 5.05 M/mm3 (3.65-5.03); Red Cell Distribution Width 14.6 % (13.2-15.2)
--- NOTE | 2021-03-01 08:51 | Progress Note ---
Assessment and Plan Assessment and plan: Patient is 61 years old female with history of hypertension, diabetes and DVT currently on Eliquis. Patient brought to the emergency room via EMS from home for evaluation of shortness of breath cough and generalized weakness for the last 5 days. Patient stated that she tested positive for COVID-19 on February 10 and since then she has not been feeling well. EMS stated that patient initial oxygen saturation was 75% on room air improved to 86% on a nonrebreather. Patient stated that her daughter also tested positive. 02/19/2020 Patient on 50% Ventimask Covid positive Continue steroids May DC antibiotics Respiratory assessment and treatment 02/19: Patient still hypoxic, encourage prone positioning, Pulmonary and ID consult. Will obtain CTA chest to evaluate for PE. Continue steroid therapy and oxygen therapy wean as tolerated. Continuous pulse oximeter. Plan discussed with the patient. 02/20: Patient seen and examined, remains on NRBM. awaiting CT CHEST WITH ANGIO Ordered yesterday. Encourage proning the patient says she was not proned yesterday discussed with nursing staff. Continue steroid therapy and remdesivir. Patient was seen by ID and as documented by ID"She is a candidate for Actemra based on CRp and O2 requirements. unfortunately we have not been getting procalcitonin results. -ordered Actemra once (afebrile, white count only mildly elevated in the setting of steroids)" Discussed plan of care with the nurse. Also called to updated the patients sister listed as NOK but got voice mail 02/21: Continue steroids, remdesivir, patient received 1 dose of Actemra but unable to get the second dose due to availability. CTA showed dense consolidation but no effusion and no pulmonary embolism patient does have a lower extremity DVT. Eliquis continues at full dose of 5 mg twice daily we will continue to monitor closely. Prognosis is guarded counseling for compliance for 15 minutes. 02/22: Patient clinically not improving much of switch the patient to Lovenox. Prognosis remains guarded. Continue anticoagulation due to DVT still suspicious of pulmonary embolism as a result we will obtain echocardiogram and vascular consult per pulmonary request which I agree with. I will also transfer the patient to stepdown unit for closer monitoring. 02/23: Vascular input noted agree the patient has subsegmental bibasilar pulmonary embolism but not enough to warrant intervention. Does not feel that this is contributing majority to her hypoxia. Nevertheless we will switch patient from Eliquis to Lovenox. Continue current management with remdesivir 02/24: Patient seen and examined, remains on anticoagulation, continue remedsivir and steroids. prone as tolerated, will give additional lasix today. Guarded prognosis. 02/25 A&O x 3, C/O mild cough with mucoid expectorant. Denies CP or shortness of breath. Remains on HFNC. pulmonary note and lab results reviewed 02/26: AOX3, proning on encounter. Encouraged continued movement while in bed and with assistance of care staff. Remains on HFNC. Last day of decadron today. 02/27: Patient encouraged to continue proning and remain active. Discussed with PT to come work with patient to mobilize. Will d/w CM for joint terminal attack controller placement solution. 02/28: Patient stated she would like to be a full code. Working with CM for LTAC placement. 03/01: Awaiting LTAC placement. Remains full code. Spoke with daughter Meghna who was updated on patient's case. (1) Acute respiratory failure with hypoxia Current Visit: Yes Status: Acute Plan to address problem: 2/2 covid PNA she is on HFNC at 40L and 100% Fio2 O2 sat 90% pulmonary following cont. Decadron - stop date 02/26 wean as tolerated (2) SIRS (systemic inflammatory response syndrome) Current Visit: Yes Status: Acute Plan to address problem: Clinical picture consistent with Sirs (3) Multifocal pneumonia Current Visit: Yes Status: Acute Plan to address problem: 2/2 covid 19 off Abx (4)COVID-19 virus infection Current Visit: Yes Status: Acute Plan to address problem: completed remdesivir cont. decadron - stop date 02/26 proning as tolerated (5) Hypertension Current Visit: Yes Status: Chronic Qualifiers: Hypertension type: primary hypertension Qualified Code(s): I10 - Essential (primary) hypertension Plan to address problem: Fair cont. present medications (6) T2DM (type 2 diabetes mellitus) Current Visit: Yes Status: Chronic Qualifiers: Diabetes mellitus detention insulin use: unspecified joint terminal attack controller insulin use status Plan to address problem: Continue Metformin and ISS coverage (7) Hypernatremia resolved (8) DVT LOWER EXT- RIGHT / and sub segmental PE cont. therapeutic lovenox (9) DVT prophylaxis Current Visit: Yes Status: Acute CODE STATUS: AND/DNR The high probability of a clinically significant, sudden or life threatening deterioration of the [pulmonary] system(s) required my full and direct attention, intervention and personal management. The aggregate critical care time was [60] minutes. This time is in addition to time spent performing reported procedures but includes the following: [X] Data Review and interpretation [X] Patient assessment and monitoring of vital signs [X] Documentation [X] Medication orders and management History Interval history: No overnight event/complaints. Hospitalist Physical - Physical exam Narrative exam: Physical Exam: Constitutional: Alert, cooperative. Mild resp distress Head, Ears, Nose: Normocephalic, atraumatic. External ears, nose normal Eyes: Conjunctivae/corneas clear. No icterus. No ptosis. Neck: Supple, no meningeal signs Oral: Deferred due to COVID-19 Cardiovascular: S1, S2 + Respiratory: AE fair bilaterally GI: Soft, non-tender; bowel sounds normal. No peritoneal signs Musculoskeletal: No pedal edema, no cyanosis. Skin: No rash or abscess Hem/Lymphatic: No palpable cervical or supraclavicular nodes. No lymphangitis Psych: No agitation Neurological: Awake, alert - Constitutional Vitals: Temp Pulse Resp BP Pulse Ox 98.0 F 85 37 H 120/75 92 03/01/21 08:00 03/01/21 06:00 03/01/21 06:00 03/01/21 06:00 03/01/21 06:00 General appearance: Present: no acute distress, well-nourished Results - Labs CBC & Chem 7: 03/01/21 05:12 03/01/21 05:12 Labs: Laboratory Last Values WBC 15.0 K/mm3 (4.5-11.0) H 03/01/21 05:12 RBC 5.05 M/mm3 (3.65-5.03) H 03/01/21 05:12 Hgb 14.0 gm/dl (10.1-14.3) 03/01/21 05:12 Hct 44.7 % (30.3-42.9) H 03/01/21 05:12 MCV 89 fl (79-97) 03/01/21 05:12 MCH 28 pg (28-32) 03/01/21 05:12 MCHC 31 % (30-34) 03/01/21 05:12 RDW 14.6 % (13.2-15.2) 03/01/21 05:12 Plt Count 353 K/mm3 (140-440) 03/01/21 05:12 Add Manual Diff Complete 02/27/21 04:57 Total Counted 100 02/27/21 04:57 Seg Neuts % (Manual) 84.0 % (40.0-70.0) H 02/27/21 04:57 Band Neutrophils % 1.0 % 02/27/21 04:57 Lymphocytes % (Manual) 4.0 % (13.4-35.0) L 02/27/21 04:57 Reactive Lymphs % (Man) 1.0 % 02/27/21 04:57 Monocytes % (Manual) 5.0 % (0.0-7.3) 02/27/21 04:57 Eosinophils % (Manual) 0 % (0.0-4.3) 02/27/21 04:57 Basophils % (Manual) 0 % (0.0-1.8) 02/27/21 04:57 Metamyelocytes % 1.0 % 02/27/21 04:57 Myelocytes % 4.0 % 02/27/21 04:57 Promyelocytes % 0 % 02/27/21 04:57 Blast Cells % 0 % 02/27/21 04:57 Nucleated RBC % Not Reportable 02/27/21 04:57 Seg Neutrophils # Man 14.3 K/mm3 (1.8-7.7) H 02/27/21 04:57 Band Neutrophils # 0.2 K/mm3 02/27/21 04:57 Lymphocytes # (Manual) 0.7 K/mm3 (1.2-5.4) L 02/27/21 04:57 Abs React Lymphs (Man) 0.2 K/mm3 02/27/21 04:57 Monocytes # (Manual) 0.9 K/mm3 (0.0-0.8) H 02/27/21 04:57 Eosinophils # (Manual) 0.0 K/mm3 (0.0-0.4) 02/27/21 04:57 Basophils # (Manual) 0.0 K/mm3 (0.0-0.1) 02/27/21 04:57 Metamyelocytes # 0.2 K/mm3 02/27/21 04:57 Myelocytes # 0.7 K/mm3 02/27/21 04:57 Promyelocytes # 0.0 K/mm3 02/27/21 04:57 Blast Cells # 0.0 K/mm3 02/27/21 04:57 WBC Morphology Not Reportable 02/27/21 04:57 Hypersegmented Neuts Not Reportable 02/27/21 04:57 Hyposegmented Neuts Not Reportable 02/27/21 04:57 Hypogranular Neuts Not Reportable 02/27/21 04:57 Smudge Cells Not Reportable 02/27/21 04:57 Toxic Granulation Not Reportable 02/27/21 04:57 Toxic Vacuolation Few 02/27/21 04:57 Dohle Bodies Not Reportable 02/27/21 04:57 Pelger-Huet Anomaly Not Reportable 02/27/21 04:57 Cindy Rods Not Reportable 02/27/21 04:57 Platelet Estimate Consistent w auto 02/27/21 04:57 Clumped Platelets Not Reportable 02/27/21 04:57 Plt Clumps, EDTA Not Reportable 02/27/21 04:57 Large Platelets Not Reportable 02/27/21 04:57 Giant Platelets Not Reportable 02/27/21 04:57 Platelet Satelliting Not Reportable 02/27/21 04:57 Plt Morphology Comment Not Reportable 02/27/21 04:57 RBC Morphology Not Reportable 02/27/21 04:57 Dimorphic RBCs Not Reportable 02/27/21 04:57 Polychromasia Not Reportable 02/27/21 04:57 Hypochromasia Not Reportable 02/27/21 04:57 Poikilocytosis Not Reportable 02/27/21 04:57 Anisocytosis Not Reportable 02/27/21 04:57 Microcytosis Not Reportable 02/27/21 04:57 Macrocytosis Not Reportable 02/27/21 04:57 Spherocytes Not Reportable 02/27/21 04:57 Pappenheimer Bodies Not Reportable 02/27/21 04:57 Sickle Cells Not Reportable 02/27/21 04:57 Target Cells Not Reportable 02/27/21 04:57 Tear Drop Cells Not Reportable 02/27/21 04:57 Ovalocytes Few 02/27/21 04:57 Helmet Cells Not Reportable 02/27/21 04:[address] [place] Bodies Not Reportable 02/27/21 04:57 [place] Rings Not Reportable 02/27/21 04:57 [place] Cells Not Reportable 02/27/21 04:57 Bite Cells Not Reportable 02/27/21 04:57 Crenated Cell Not Reportable 02/27/21 04:57 Elliptocytes Not Reportable 02/27/21 04:57 Acanthocytes (Spur) Not Reportable 02/27/21 04:57 Rouleaux Not Reportable 02/27/21 04:57 Hemoglobin C Crystals Not Reportable 02/27/21 04:57 Schistocytes Not Reportable 02/27/21 04:57 Malaria parasites Not Reportable 02/27/21 04:57 [place] Bodies Not Reportable 02/27/21 04:57 Hem Pathologist Commnt No 02/27/21 04:57 PT 13.9 Sec. (12.2-14.9) 02/17/21 14:34 INR 0.96 (0.87-1.13) 02/17/21 14:34 APTT 26.4 Sec. (24.2-36.6) 02/17/21 14:34 D-Dimer 3469.99 ng/mlDDU (0-234) H 03/01/21 05:12 ABG pH 7.453 pH Units (7.350-7.450) H 02/20/21 18:46 ABG pCO2 38.9 mm Hg 02/20/21 18:46 ABG pO2 55.0 mm Hg (80.0-90.0) L 02/20/21 18:46 ABG HCO3 26.6 mmol/L (20.0-26.0) H 02/20/21 18:46 ABG O2 Saturation 88.3 % (95.0-99.0) L 02/20/21 18:46 ABG Base Excess 2.6 mmol/L (-2.0-3.0) 02/20/21 18:46 ABG Hemoglobin 14.4 gm/dl (12.0-16.0) 02/20/21 18:46 ABG Carboxyhemoglobin 1.4 % (0.0-5.0) 02/20/21 18:46 ABG Methemoglobin 0.3 % (0.0-1.5) 02/20/21 18:46 Oxyhemoglobin 86.8 % (95.0-99.0) L 02/20/21 18:46 FiO2 100 % 02/20/21 18:46 Sodium 138 mmol/L (137-145) 03/01/21 05:12 Potassium 3.7 mmol/L (3.6-5.0) 03/01/21 05:12 Chloride 97.3 mmol/L (98-107) L 03/01/21 05:12 Carbon Dioxide 28 mmol/L (22-30) 03/01/21 05:12 Anion Gap 16 mmol/L 03/01/21 05:12 BUN 17 mg/dL (7-17) 03/01/21 05:12 Creatinine 0.5 mg/dL (0.6-1.2) L 03/01/21 05:12 Estimated GFR > 60 ml/min 03/01/21 05:12 BUN/Creatinine Ratio 34 % 03/01/21 05:12 Glucose 115 mg/dL (65-100) H 03/01/21 05:12 POC Glucose 130 mg/dL (70-105) H 03/01/21 07:30 Lactic Acid 1.60 mmol/L (0.7-2.0) 02/17/21 18:39 Calcium 9.0 mg/dL (8.4-10.2) 03/01/21 05:12 Phosphorus 4.00 mg/dL (2.5-4.5) 02/28/21 18:41 Magnesium 2.00 mg/dL (1.7-2.3) 02/28/21 18:41 Ferritin 1526.0 ng/mL (10.0-200.0) H 03/01/21 05:12 Total Bilirubin 0.40 mg/dL (0.1-1.2) 03/01/21 05:12 Direct Bilirubin < 0.2 mg/dL (0-0.2) 02/17/21 14:34 Indirect Bilirubin 0.1 mg/dL 02/17/21 14:34 AST 23 units/L (5-40) 03/01/21 05:12 ALT 24 units/L (7-56) 03/01/21 05:12 Alkaline Phosphatase 67 units/L (35-129) 03/01/21 05:12 Lactate Dehydrogenase 385 units/L (91-180) H 03/01/21 05:12 C-Reactive Protein 11.20 mg/dL (0.00-1.30) H 03/01/21 05:12 NT-Pro-B Natriuret Pep 86.77 pg/mL (0-900) 02/20/21 16:34 Total Protein 6.8 g/dL (6.3-8.2) 03/01/21 05:12 Albumin 2.8 g/dL (3.9-5) L 03/01/21 05:12 Albumin/Globulin Ratio 0.7 % 03/01/21 05:12 Urine Color Cassandra (Yellow) 02/18/21 Unknown Urine Turbidity Cloudy (Clear) 02/18/21 Unknown Urine pH 5.0 (5.0-7.0) 02/18/21 Unknown Ur Specific [place] 1.027 (1.003-1.030) 02/18/21 Unknown Urine Protein 100 mg/dl mg/dL (Negative) 02/18/21 Unknown Urine Glucose (UA) Neg mg/dL (Negative) 02/18/21 Unknown Urine Ketones Neg mg/dL (Negative) 02/18/21 Unknown Urine Blood Neg (Negative) 02/18/21 Unknown Urine Nitrite Neg (Negative) 02/18/21 Unknown Urine Bilirubin Neg (Negative) 02/18/21 Unknown Urine Urobilinogen < 2.0 mg/dL (<2.0) 02/18/21 Unknown Ur Leukocyte Esterase Neg (Negative) 02/18/21 Unknown Urine WBC (Auto) 7.0 /HPF (0.0-6.0) H 02/18/21 Unknown Urine RBC (Auto) 4.0 /HPF (0.0-6.0) 02/18/21 Unknown U Epithel Cells (Auto) 3.0 /HPF (0-13.0) 02/18/21 Unknown Urine Mucus 2+ /HPF 02/18/21 Unknown Coronavirus (PCR) Positive (Negative) A 02/18/21 Unknown Head/IV: Voiding Method External Female Catheter Active Medications - Current Medications Current Medications: Generic Name Dose Route Start Last Admin Trade Name Freq PRN Reason Stop Dose Admin Acetaminophen 650 mg 02/17/21 23:58 02/27/21 23:14 Acetaminophen 325 Mg Tab PO 650 mg Q4H PRN Administration Pain MILD(1-3)/Fever >100.5/BROWN Amlodipine Besylate 10 mg 02/19/21 10:00 02/28/21 10:25 Amlodipine 10 Mg Tab PO 10 mg DAILY DEISY Administration Ascorbic Acid 1,000 mg 02/19/21 10:00 02/28/21 22:39 Ascorbic Acid 500 Mg Tab PO 1,000 mg BID DEISY Administration Cholecalciferol 5,000 unit 02/19/21 10:00 02/28/21 10:25 Cholecalciferol (Vit D3) 5,000 Unit Tab PO 5,000 unit DAILY DEISY Administration Dextrose 50 ml 02/27/21 11:30 Dextrose 50% In Water (25gm) 50 Ml Syringe IV Q30MIN PRN Hypoglycemia Protocol Enoxaparin Sodium 90 mg 02/22/21 10:00 02/28/21 22:39 Enoxaparin 100 Mg/1 Ml Inj 1 mg/kg (90 mg) 90 mg SUB-Q Administration Q12HR [facility] Protocol Famotidine 20 mg 02/18/21 10:00 02/28/21 22:39 Famotidine 20 Mg Tab PO 20 mg BID DEISY Administration Furosemide 40 mg 02/18/21 08:00 02/28/21 10:25 Furosemide 40 Mg/4 Ml Inj IV 40 mg 0800 [facility] Administration Gabapentin 400 mg 02/19/21 04:00 02/28/21 22:39 Gabapentin 400 Mg Cap PO 400 mg BID DEISY Administration Hydromorphone HCl 0.5 mg 02/17/21 23:58 Hydromorphone 1 Mg/1 Ml Inj IV Q3H PRN Pain , Severe (7-10) Insulin Human Lispro 0 unit 02/27/21 11:30 02/28/21 22:35 Insulin Lispro 100 Unit/Ml SUB-Q Not Given ACHS [facility] Protocol Ondansetron HCl 4 mg 02/17/21 23:58 Ondansetron 4 Mg/2 Ml Inj IV Q8H PRN Nausea And Vomiting Oxycodone/Acetaminophen 1 tab 02/17/21 23:58 02/27/21 04:22 Oxycodone /Acetaminophen 5-325mg Tab PO 1 tab Q6H PRN Administration Pain, Moderate (4-6) Sertraline HCl 50 mg 02/19/21 10:00 02/28/21 10:25 Sertraline 50 Mg Tab PO 50 mg QDAY DEISY Administration Sodium Chloride 10 ml 02/18/21 10:00 02/28/21 22:40 Sodium Chloride 0.9% 10 Ml Flush Syringe IV 10 ml BID DEISY Administration Sodium Chloride 10 ml 02/17/21 23:58 Sodium Chloride 0.9% 10 Ml Flush Syringe IV PRN PRN LINE FLUSH Zinc Sulfate 220 mg 02/19/21 10:00 02/28/21 10:26 Zinc Sulfate 220 Mg Cap PO 220 mg QDAY DEISY Administration Nutrition/Malnutrition Assess - Dietary Evaluation Nutrition/Malnutrition Findings: Nutrition Notes Start: 02/25/21 16:1 0 Freq: Status: Active Protocol: Document 02/25/21 16:10 ALEC (Rec: 02/25/21 16:47 ALEC [id number]) Nutrition Notes Need for Assessment generated from: LOS Initial or Follow up Assessment Current Diagnosis Diabetes,Hypertension, Respiratory Failure Other Pertinent Diagnosis COVID-19 pneumonia, SIRS. Current Diet Cardiac Diet (since B 02/18). Labs/Tests 02/24" BUN 23. Pertinent Medications 02/25: Vit C, Vit D3, ZnSO4, others nutritionally unremarkable. Height 5 ft 6 in Weight 86.183 kg [place] Body Weight (kg) 59.09 BMI 30.7 Intake Prior to Admission Good Weight change and time frame None, according to admission report. Weight Status Obese Subjective/Other Information RD consult for LOS assessment. Pt on NIV/Bi-Pap+. No report available on Pt's % PO intake of meals at the time . F/U on PO intake of meals assessment. Percent of energy/protein needs met: Prescribed Cardiac Diet provides for energy/protein needs (2,230 Kcal/85 g) during LOS. Burn Absent Trauma Absent GI Symptoms None Food Allergy No Skin Integrity/Comment Clear, warm, dry. Minimum of two criteria No Is patient on ventilator? No Is Patient Ambulatory and/or Out of Bed Yes REE-([place]. or-ambulatory/OOB) [ 1876.654 [id number]] Kcal/Kg value to use for calculation 13 Approximate Energy Requirements Using 1120 kcal/Kg Calculation Used for Recommendations Kcal/kg Additional Notes Protein: >2 g/Kg; >118 g/day. Fluids: 1 ml/Kcal, or as per MD. Nutrition Intervention Change Diet Order: Continue Cardiac Diet. Follow-Up By: 03/04/21 Additional Comments Continue monitoring food tolerance, %PO intake of meals , and BM.
[2021-03-01] MEDS: ASCORBIC ACID 500 MG TAB PO SCH ×2 (10:13→21:13)
[2021-03-01] MEDS: ZINC SULFATE 220 MG CAP PO SCH (10:13)
[2021-03-01] MEDS: GABAPENTIN 400 MG CAP PO SCH ×2 (10:13→21:13)
[2021-03-01] MEDS: FUROSEMIDE 40 MG/4 ML INJ IV SCH (10:13)
[2021-03-01] MEDS: FAMOTIDINE 20 MG TAB PO SCH ×2 (10:13→21:13)
[2021-03-01] MEDS: amLODIPine 10 MG TAB PO SCH (10:13)
[2021-03-01] MEDS: ENOXAPARIN 100 MG/1 ML INJ SUB-Q SCH ×2 (10:13→21:13)
[2021-03-01] MEDS: SERTRALINE 50 MG TAB PO SCH (10:13)
[2021-03-01] MEDS: CHOLECALCIFEROL (VIT D3) 5,000 UNIT TAB PO SCH (10:13)
[2021-03-01] MEDS: INSULIN LISPRO 100 UNIT/ML SUB-Q SCH ×2 (10:14→21:45)
[2021-03-01 14:07] LABS: Band Neutrophils # (Manual) 0.5 K/mm3; Basophils % (Manual) 0 % (0.0-1.8); Myelocytes # (Manual) 0.3 K/mm3; RBC Morphology Normal; Total Cells Counted 100
[2021-03-01 14:08] LABS: Platelet Estimate Consistent w Auto
[2021-03-02] MEDS: INSULIN LISPRO 100 UNIT/ML SUB-Q SCH ×5 (07:18→21:50)
--- NOTE | 2021-03-02 09:11 | Progress Note ---
Assessment and Plan Assessment and plan: Patient is 61 years old female with history of hypertension, diabetes and DVT currently on Eliquis. Patient brought to the emergency room via EMS from home for evaluation of shortness of breath cough and generalized weakness for the last 5 days. Patient stated that she tested positive for COVID-19 on February 10 and since then she has not been feeling well. EMS stated that patient initial oxygen saturation was 75% on room air improved to 86% on a nonrebreather. Patient stated that her daughter also tested positive. 02/19/2020 Patient on 50% Ventimask Covid positive Continue steroids May DC antibiotics Respiratory assessment and treatment 02/19: Patient still hypoxic, encourage prone positioning, Pulmonary and ID consult. Will obtain CTA chest to evaluate for PE. Continue steroid therapy and oxygen therapy wean as tolerated. Continuous pulse oximeter. Plan discussed with the patient. 02/20: Patient seen and examined, remains on NRBM. awaiting CT CHEST WITH ANGIO Ordered yesterday. Encourage proning the patient says she was not proned yesterday discussed with nursing staff. Continue steroid therapy and remdesivir. Patient was seen by ID and as documented by ID"She is a candidate for Actemra based on CRp and O2 requirements. unfortunately we have not been getting procalcitonin results. -ordered Actemra once (afebrile, white count only mildly elevated in the setting of steroids)" Discussed plan of care with the nurse. Also called to updated the patients sister listed as NOK but got voice mail 02/21: Continue steroids, remdesivir, patient received 1 dose of Actemra but unable to get the second dose due to availability. CTA showed dense consolidation but no effusion and no pulmonary embolism patient does have a lower extremity DVT. Eliquis continues at full dose of 5 mg twice daily we will continue to monitor closely. Prognosis is guarded counseling for compliance for 15 minutes. 02/22: Patient clinically not improving much of switch the patient to Lovenox. Prognosis remains guarded. Continue anticoagulation due to DVT still suspicious of pulmonary embolism as a result we will obtain echocardiogram and vascular consult per pulmonary request which I agree with. I will also transfer the patient to stepdown unit for closer monitoring. 02/23: Vascular input noted agree the patient has subsegmental bibasilar pulmonary embolism but not enough to warrant intervention. Does not feel that this is contributing majority to her hypoxia. Nevertheless we will switch patient from Eliquis to Lovenox. Continue current management with remdesivir 02/24: Patient seen and examined, remains on anticoagulation, continue remedsivir and steroids. prone as tolerated, will give additional lasix today. Guarded prognosis. 02/25 A&O x 3, C/O mild cough with mucoid expectorant. Denies CP or shortness of breath. Remains on HFNC. pulmonary note and lab results reviewed 02/26: AOX3, proning on encounter. Encouraged continued movement while in bed and with assistance of care staff. Remains on HFNC. Last day of decadron today. 02/27: Patient encouraged to continue proning and remain active. Discussed with PT to come work with patient to mobilize. Will d/w CM for intermediate accountant placement solution. 02/28: Patient stated she would like to be a full code. Working with CM for LTAC placement. 03/01: Awaiting LTAC placement. Remains full code. Spoke with daughter Meghna who was updated on patient's case. 03/02: Sats in low 80s on hi lfow. Blood gas shows pao2 = 35.9. will start bipap, d/w IMCU RN who will notify RT. repeat abg in 1 hr. Poor prognosis. (1) Acute respiratory failure with hypoxia Current Visit: Yes Status: Acute Plan to address problem: 2/2 covid PNA she is on HFNC at 40L and 100% Fio2 --> will place back on bipap. O2 sat 90% pulmonary following cont. Decadron - stop date 02/26 wean as tolerated (2) SIRS (systemic inflammatory response syndrome) Current Visit: Yes Status: Acute Plan to address problem: Clinical picture consistent with Sirs (3) Multifocal pneumonia Current Visit: Yes Status: Acute Plan to address problem: 2/2 covid 19 off Abx (4)COVID-19 virus infection Current Visit: Yes Status: Acute Plan to address problem: completed remdesivir cont. decadron - stop date 02/26 proning as tolerated (5) Hypertension Current Visit: Yes Status: Chronic Qualifiers: Hypertension type: primary hypertension Qualified Code(s): I10 - Essential (primary) hypertension Plan to address problem: Fair cont. present medications (6) T2DM (type 2 diabetes mellitus) Current Visit: Yes Status: Chronic Qualifiers: Diabetes mellitus jail insulin use: unspecified jail insulin use status Plan to address problem: Continue Metformin and ISS coverage (7) Hypernatremia resolved (8) DVT LOWER EXT- RIGHT / and sub segmental PE cont. therapeutic lovenox (9) DVT prophylaxis Current Visit: Yes Status: Acute CODE STATUS: Full Code The high probability of a clinically significant, sudden or life threatening deterioration of the [pulmonary] system(s) required my full and direct attention, intervention and personal management. The aggregate critical care time was [60] minutes. This time is in addition to time spent performing reported procedures but includes the following: [X] Data Review and interpretation [X] Patient assessment and monitoring of vital signs [X] Documentation [X] Medication orders and management History Interval history: No overnight event/complaints. Sats in lower to mid 80's. Tachy on monitor. mild distress but patient has no complaints. Ordere ABG which shows O2 35.9. D/w IM CU RN to notify rt to initiate bipap. Hospitalist Physical - Physical exam Narrative exam: Physical Exam: Constitutional: Alert, cooperative. Mild resp distress Head, Ears, Nose: Normocephalic, atraumatic. External ears, nose normal Eyes: Conjunctivae/corneas clear. No icterus. No ptosis. Neck: Supple, no meningeal signs Oral: Deferred due to COVID-19 Cardiovascular: S1, S2 + Respiratory: AE fair bilaterally GI: Soft, non-tender; bowel sounds normal. No peritoneal signs Musculoskeletal: No pedal edema, no cyanosis. Skin: No rash or abscess Hem/Lymphatic: No palpable cervical or supraclavicular nodes. No lymphangitis Psych: No agitation Neurological: Awake, alert - Constitutional Vitals: Temp Pulse Resp BP Pulse Ox 97.6 F 89 35 H 105/66 86 03/02/21 04:00 03/02/21 08:00 03/02/21 08:00 03/02/21 08:00 03/02/21 08:53 General appearance: Present: no acute distress, well-nourished Results - Labs CBC & Chem 7: 03/01/21 05:12 03/01/21 05:12 Labs: Laboratory Last Values WBC 15.0 K/mm3 (4.5-11.0) H 03/01/21 05:12 RBC 5.05 M/mm3 (3.65-5.03) H 03/01/21 05:12 Hgb 14.0 gm/dl (10.1-14.3) 03/01/21 05:12 Hct 44.7 % (30.3-42.9) H 03/01/21 05:12 MCV 89 fl (79-97) 03/01/21 05:12 MCH 28 pg (28-32) 03/01/21 05:12 MCHC 31 % (30-34) 03/01/21 05:12 RDW 14.6 % (13.2-15.2) 03/01/21 05:12 Plt Count 353 K/mm3 (140-440) 03/01/21 05:12 Add Manual Diff Complete 03/01/21 05:12 Total Counted 100 03/01/21 05:12 Seg Neuts % (Manual) 71.0 % (40.0-70.0) H 03/01/21 05:12 Band Neutrophils % 3.0 % 03/01/21 05:12 Lymphocytes % (Manual) 11.0 % (13.4-35.0) L 03/01/21 05:12 Reactive Lymphs % (Man) 0 % 03/01/21 05:12 Monocytes % (Manual) 12.0 % (0.0-7.3) H 03/01/21 05:12 Eosinophils % (Manual) 1.0 % (0.0-4.3) 03/01/21 05:12 Basophils % (Manual) 0 % (0.0-1.8) 03/01/21 05:12 Metamyelocytes % 0 % 03/01/21 05:12 Myelocytes % 2.0 % 03/01/21 05:12 Promyelocytes % 0 % 03/01/21 05:12 Blast Cells % 0 % 03/01/21 05:12 Nucleated RBC % Not Reportable 03/01/21 05:12 Seg Neutrophils # Man 10.7 K/mm3 (1.8-7.7) H 03/01/21 05:12 Band Neutrophils # 0.5 K/mm3 03/01/21 05:12 Lymphocytes # (Manual) 1.7 K/mm3 (1.2-5.4) 03/01/21 05:12 Abs React Lymphs (Man) 0.0 K/mm3 03/01/21 05:12 Monocytes # (Manual) 1.8 K/mm3 (0.0-0.8) H 03/01/21 05:12 Eosinophils # (Manual) 0.2 K/mm3 (0.0-0.4) 03/01/21 05:12 Basophils # (Manual) 0.0 K/mm3 (0.0-0.1) 03/01/21 05:12 Metamyelocytes # 0.0 K/mm3 03/01/21 05:12 Myelocytes # 0.3 K/mm3 03/01/21 05:12 Promyelocytes # 0.0 K/mm3 03/01/21 05:12 Blast Cells # 0.0 K/mm3 03/01/21 05:12 WBC Morphology Not Reportable 03/01/21 05:12 Hypersegmented Neuts Not Reportable 03/01/21 05:12 Hyposegmented Neuts Not Reportable 03/01/21 05:12 Hypogranular Neuts Not Reportable 03/01/21 05:12 Smudge Cells Not Reportable 03/01/21 05:12 Toxic Granulation Not Reportable 03/01/21 05:12 Toxic Vacuolation Not Reportable 03/01/21 05:12 Dohle Bodies Not Reportable 03/01/21 05:12 Pelger-Huet Anomaly Not Reportable 03/01/21 05:12 Cindy Rods Not Reportable 03/01/21 05:12 Platelet Estimate Consistent w auto 03/01/21 05:12 Clumped Platelets Not Reportable 03/01/21 05:12 Plt Clumps, EDTA Not Reportable 03/01/21 05:12 Large Platelets Not Reportable 03/01/21 05:12 Giant Platelets Not Reportable 03/01/21 05:12 Platelet Satelliting Not Reportable 03/01/21 05:12 Plt Morphology Comment Not Reportable 03/01/21 05:12 RBC Morphology Normal 03/01/21 05:12 Dimorphic RBCs Not Reportable 03/01/21 05:12 Polychromasia Not Reportable 03/01/21 05:12 Hypochromasia Not Reportable 03/01/21 05:12 Poikilocytosis Not Reportable 03/01/21 05:12 Anisocytosis Not Reportable 03/01/21 05:12 Microcytosis Not Reportable 03/01/21 05:12 Macrocytosis Not Reportable 03/01/21 05:12 Spherocytes Not Reportable 03/01/21 05:12 Pappenheimer Bodies Not Reportable 03/01/21 05:12 Sickle Cells Not Reportable 03/01/21 05:12 Target Cells Not Reportable 03/01/21 05:12 Tear Drop Cells Not Reportable 03/01/21 05:12 Ovalocytes Not Reportable 03/01/21 05:12 Helmet Cells Not Reportable 03/01/21 05:12 [place] Bodies Not Reportable 03/01/21 05:12 [place] Rings Not Reportable 03/01/21 05:12 Alicia Cells Not Reportable 03/01/21 05:12 Bite Cells Not Reportable 03/01/21 05:12 Crenated Cell Not Reportable 03/01/21 05:12 Elliptocytes Not Reportable 03/01/21 05:12 Acanthocytes (Spur) Not Reportable 03/01/21 05:12 Rouleaux Not Reportable 03/01/21 05:12 Hemoglobin C Crystals Not Reportable 03/01/21 05:12 Schistocytes Not Reportable 03/01/21 05:12 Malaria parasites Not Reportable 03/01/21 05:12 Pedro Pablo Bodies Not Reportable 03/01/21 05:12 Hem Pathologist Commnt No 03/01/21 05:12 PT 13.9 Sec. (12.2-14.9) 02/17/21 14:34 INR 0.96 (0.87-1.13) 02/17/21 14:34 APTT 26.4 Sec. (24.2-36.6) 02/17/21 14:34 D-Dimer 3469.99 ng/mlDDU (0-234) H 03/01/21 05:12 ABG pH 7.453 pH Units (7.350-7.450) H 02/20/21 18:46 ABG pCO2 38.9 mm Hg 02/20/21 18:46 ABG pO2 55.0 mm Hg (80.0-90.0) L 02/20/21 18:46 ABG HCO3 26.6 mmol/L (20.0-26.0) H 02/20/21 18:46 ABG O2 Saturation 88.3 % (95.0-99.0) L 02/20/21 18:46 ABG Base Excess 2.6 mmol/L (-2.0-3.0) 02/20/21 18:46 ABG Hemoglobin 14.4 gm/dl (12.0-16.0) 02/20/21 18:46 ABG Carboxyhemoglobin 1.4 % (0.0-5.0) 02/20/21 18:46 ABG Methemoglobin 0.3 % (0.0-1.5) 02/20/21 18:46 Oxyhemoglobin 86.8 % (95.0-99.0) L 02/20/21 18:46 FiO2 100 % 02/20/21 18:46 Sodium 138 mmol/L (137-145) 03/01/21 05:12 Potassium 3.7 mmol/L (3.6-5.0) 03/01/21 05:12 Chloride 97.3 mmol/L (98-107) L 03/01/21 05:12 Carbon Dioxide 28 mmol/L (22-30) 03/01/21 05:12 Anion Gap 16 mmol/L 03/01/21 05:12 BUN 17 mg/dL (7-17) 03/01/21 05:12 Creatinine 0.5 mg/dL (0.6-1.2) L 03/01/21 05:12 Estimated GFR > 60 ml/min 03/01/21 05:12 BUN/Creatinine Ratio 34 % 03/01/21 05:12 Glucose 115 mg/dL (65-100) H 03/01/21 05:12 POC Glucose 203 mg/dL (70-105) H 03/02/21 07:44 Lactic Acid 1.60 mmol/L (0.7-2.0) 02/17/21 18:39 Calcium 9.0 mg/dL (8.4-10.2) 03/01/21 05:12 Phosphorus 4.00 mg/dL (2.5-4.5) 02/28/21 18:41 Magnesium 2.00 mg/dL (1.7-2.3) 02/28/21 18:41 Ferritin 1526.0 ng/mL (10.0-200.0) H 03/01/21 05:12 Total Bilirubin 0.40 mg/dL (0.1-1.2) 03/01/21 05:12 Direct Bilirubin < 0.2 mg/dL (0-0.2) 02/17/21 14:34 Indirect Bilirubin 0.1 mg/dL 02/17/21 14:34 AST 23 units/L (5-40) 03/01/21 05:12 ALT 24 units/L (7-56) 03/01/21 05:12 Alkaline Phosphatase 67 units/L (35-129) 03/01/21 05:12 Lactate Dehydrogenase 385 units/L (91-180) H 03/01/21 05:12 C-Reactive Protein 11.20 mg/dL (0.00-1.30) H 03/01/21 05:12 NT-Pro-B Natriuret Pep 86.77 pg/mL (0-900) 02/20/21 16:34 Total Protein 6.8 g/dL (6.3-8.2) 03/01/21 05:12 Albumin 2.8 g/dL (3.9-5) L 03/01/21 05:12 Albumin/Globulin Ratio 0.7 % 03/01/21 05:12 Procalcitonin 0.11 ng/mL (<0.15) 02/19/21 07:32 Urine Color Cassandra (Yellow) 02/18/21 Unknown Urine Turbidity Cloudy (Clear) 02/18/21 Unknown Urine pH 5.0 (5.0-7.0) 02/18/21 Unknown Ur Specific [place] 1.027 (1.003-1.030) 02/18/21 Unknown Urine Protein 100 mg/dl mg/dL (Negative) 02/18/21 Unknown Urine Glucose (UA) Neg mg/dL (Negative) 02/18/21 Unknown Urine Ketones Neg mg/dL (Negative) 02/18/21 Unknown Urine Blood Neg (Negative) 02/18/21 Unknown Urine Nitrite Neg (Negative) 02/18/21 Unknown Urine Bilirubin Neg (Negative) 02/18/21 Unknown Urine Urobilinogen < 2.0 mg/dL (<2.0) 02/18/21 Unknown Ur Leukocyte Esterase Neg (Negative) 02/18/21 Unknown Urine WBC (Auto) 7.0 /HPF (0.0-6.0) H 02/18/21 Unknown Urine RBC (Auto) 4.0 /HPF (0.0-6.0) 02/18/21 Unknown U Epithel Cells (Auto) 3.0 /HPF (0-13.0) 02/18/21 Unknown Urine Mucus 2+ /HPF 02/18/21 Unknown Coronavirus (PCR) Positive (Negative) A 02/18/21 Unknown Head/IV: Voiding Method External Female Catheter Active Medications - Current Medications Current Medications: Generic Name Dose Route Start Last Admin Trade Name Freq PRN Reason Stop Dose Admin Acetaminophen 650 mg 02/17/21 23:58 02/27/21 23:14 Acetaminophen 325 Mg Tab PO 650 mg Q4H PRN Administration Pain MILD(1-3)/Fever >100.5/BROWN Amlodipine Besylate 10 mg 02/19/21 10:00 03/01/21 10:13 Amlodipine 10 Mg Tab PO 10 mg DAILY DEISY Administration Ascorbic Acid 1,000 mg 02/19/21 10:00 03/01/21 21:13 Ascorbic Acid 500 Mg Tab PO 1,000 mg BID DEISY Administration Cholecalciferol 5,000 unit 02/19/21 10:00 03/01/21 10:13 Cholecalciferol (Vit D3) 5,000 Unit Tab PO 5,000 unit DAILY DEISY Administration Dextrose 50 ml 02/27/21 11:30 Dextrose 50% In Water (25gm) 50 Ml Syringe IV Q30MIN PRN Hypoglycemia Protocol Enoxaparin Sodium 90 mg 02/22/21 10:00 03/01/21 21:13 Enoxaparin 100 Mg/1 Ml Inj 1 mg/kg (90 mg) 90 mg SUB-Q Administration Q12HR DEISY Protocol Famotidine 20 mg 02/18/21 10:00 03/01/21 21:13 Famotidine 20 Mg Tab PO 20 mg BID DEISY Administration Furosemide 40 mg 02/18/21 08:00 03/01/21 10:13 Furosemide 40 Mg/4 Ml Inj IV 40 mg 0800 DEISY Administration Gabapentin 400 mg 02/19/21 04:00 03/01/21 21:13 Gabapentin 400 Mg Cap PO 400 mg BID DEISY Administration Hydromorphone HCl 0.5 mg 02/17/21 23:58 Hydromorphone 1 Mg/1 Ml Inj IV Q3H PRN Pain , Severe (7-10) Insulin Glargine 10 units 03/02/21 09:09 Insulin Glargine 100 Units/Ml SUB-Q 03/02/21 09:10 ONCE ONE Insulin Glargine 10 units 03/02/21 22:00 Insulin Glargine 100 Units/Ml SUB-Q QHS [facility] Insulin Human Lispro 0 unit 02/27/21 11:30 03/02/21 07:18 Insulin Lispro 100 Unit/Ml SUB-Q Not Given ACHS [facility] Protocol Ondansetron HCl 4 mg 02/17/21 23:58 Ondansetron 4 Mg/2 Ml Inj IV Q8H PRN Nausea And Vomiting Oxycodone/Acetaminophen 1 tab 02/17/21 23:58 02/27/21 04:22 Oxycodone /Acetaminophen 5-325mg Tab PO 1 tab Q6H PRN Administration Pain, Moderate (4-6) Sertraline HCl 50 mg 02/19/21 10:00 03/01/21 10:13 Sertraline 50 Mg Tab PO 50 mg QDAY [facility] Administration Sodium Chloride 10 ml 02/18/21 10:00 03/01/21 21:14 Sodium Chloride 0.9% 10 Ml Flush Syringe IV 10 ml BID DEISY Administration Sodium Chloride 10 ml 02/17/21 23:58 Sodium Chloride 0.9% 10 Ml Flush Syringe IV PRN PRN LINE FLUSH Zinc Sulfate 220 mg 02/19/21 10:00 03/01/21 10:13 Zinc Sulfate 220 Mg Cap PO 220 mg QDAY DEISY Administration Nutrition/Malnutrition Assess - Dietary Evaluation Nutrition/Malnutrition Findings: Nutrition Notes Start: 02/25/21 16:10 Freq: Status: Active Protocol: Document 02/25/21 16:10 ALEC (Rec: 02/25/21 16:47 ALEC [id number]) Nutrition Notes Need for Assessment generated from: LOS Initial or Follow up Assessment Current Diagnosis Diabetes,Hypertension, Respiratory Failure Other Pertinent Diagnosis COVID-19 pneumonia, SIRS. Current Diet Cardiac Diet (since B 02/18). Labs/Tests 02/24" BUN 23. Pertinent Medications 02/25: Vit C, Vit D3, ZnSO4, others nutritionally unremarkable. Height 5 ft 6 in Weight 86.183 kg [place] Body Weight (kg) 59.09 BMI 30.7 Intake Prior to Admission Good Weight change and time frame None, according to admission report. Weight Status Obese Subjective/Other Information RD consult for LOS assessment. Pt on NIV/Bi-Pap+. No report available on Pt's % PO intake of meals at the time . F/U on PO intake of meals assessment. Percent of energy/protein needs met: Prescribed Cardiac Diet provides for energy/protein needs (2,230 Kcal/85 g) during LOS. Burn Absent Trauma Absent GI Symptoms None Food Allergy No Skin Integrity/Comment Clear, warm, dry. Minimum of two criteria No Is patient on ventilator? No Is Patient Ambulatory and/or Out of Bed Yes REE-([place]-St. Jeor-ambulatory/OOB) [ 1876.654 [id number]] Kcal/Kg value to use for calculation 13 Approximate Energy Requirements Using 1120 kcal/Kg Calculation Used for Recommendations Kcal/kg Additional Notes Protein: >2 g/Kg; >118 g/day. Fluids: 1 ml/Kcal, or as per MD. Nutrition Intervention Change Diet Order: Continue Cardiac Diet. Follow-Up By: 03/04/21 Additional Comments Continue monitoring food tolerance, %PO intake of meals , and BM.
[2021-03-02] MEDS ORDERED: INSULIN GLARGINE 100 UNITS/ML SUB-Q ONE (09:30)
[2021-03-02] MEDS: ENOXAPARIN 100 MG/1 ML INJ SUB-Q SCH ×2 (09:42→21:51)
[2021-03-02] MEDS: GABAPENTIN 400 MG CAP PO SCH ×2 (09:44→21:33)
[2021-03-02] MEDS: amLODIPine 10 MG TAB PO SCH (09:44)
[2021-03-02] MEDS: SERTRALINE 50 MG TAB PO SCH (09:45)
[2021-03-02] MEDS: ZINC SULFATE 220 MG CAP PO SCH (09:45)
[2021-03-02] MEDS: CHOLECALCIFEROL (VIT D3) 5,000 UNIT TAB PO SCH (09:45)
[2021-03-02] MEDS: FAMOTIDINE 20 MG TAB PO SCH ×2 (09:45→21:33)
[2021-03-02] MEDS: ACETAMINOPHEN 325 MG TAB PO PRN (09:45)
[2021-03-02] MEDS: FUROSEMIDE 40 MG/4 ML INJ IV SCH (09:45)
[2021-03-02] MEDS: ASCORBIC ACID 500 MG TAB PO SCH ×2 (09:45→21:34)
[2021-03-02 11:57] LABS: ABG Base Excess 6.1 mmol/L (-2.0-3.0); ABG HCO3 31.2 mmol/L (20.0-26.0); ABG Methemoglobin 0.8 % (0.0-1.5); ABG PCO2 46.3 mm Hg; ABG PH 7.447 pH Units (7.350-7.450)
[2021-03-02 12:03] LABS: ABG PO2 35.9 mm Hg (80.0-90.0)
--- NOTE | 2021-03-02 13:11 | Progress Note ---
Assessment and Plan 61 y/o female with acute respiratory failure secondary to COVID 19 pneumonia. 03/02/21: Prone if able. Continue steroids. Negative fluid balance if possible. Prognosis remains very guarded 02/28/21: Prone. Steroids. Net negative fluid balance if possible. Guarded prognosis. 02/27/21: Full code status. Prone as much as possible during the day and sleep prone at night. Patient may require intubation ultimately. Guarded prognosis. 02/26/21: Prone if possible. Continue anticoagulation for DVT. Steroids. Net negative fluid balance. 02/25/21: Long discussion at bedside with patient, whom per her, she has discussed this with her daughter. She does no want an endotracheal tube. She does not want chest compression and she does not want shocks. I did not ask about vasopressors. The patient is awake and alert and oriented. This needs to be addressed by primary team as well an if confirmed, I have no problem with co signing AND order. Continue supportive measures for now. Guarded to poor prognosis. 02/21/21: BNP normal. Still would attempt to achieve net negative fluid balance daily. Continue Remdesivir and steroids. Prone if patient willing. Follow up CTA results. Discussed with IMS, may change anticoagulation but awaiting official ready on CTA. Guareded prognosis. 02/20/21: Follow up CTA results. Will send BNP. Continue steroids and Remdesivir. Guarded prognosis. Prone if able, very pertinent to do this. 1. self proning as tolerated during the day and prone at night while sleeping 2. Steroids and Remdesivir 3. Daily net negative volume state 4. Consider checking BNP and echo to make sure no edema on this film 5. Agree with empiric anticoagulation given elevated D-Dimer Guarded prognosis. Will continue to follow. Subjective Date of service: 03/02/21 Principal diagnosis: COVID pneumonia Interval history: On continuous bipap. Objective Vital Signs - 12hr 03/02/21 03/02/21 03/02/21 01:30 02:00 02:30 Temperature Pulse Rate 92 H 92 H 92 H Pulse Rate [ From Monitor] Respiratory 28 H 22 25 H Rate Blood Pressure 115/79 118/72 118/72 O2 Sat by Pulse 88 86 84 Oximetry 03/02/21 03/02/21 03/02/21 03:00 03:30 04:00 Temperature 97.6 F Pulse Rate 99 H 93 H 93 H Pulse Rate [ 84 From Monitor] Respiratory 17 32 H 34 H Rate Blood Pressure 126/86 126/86 126/86 O2 Sat by Pulse 78 L 100 90 Oximetry 03/02/21 03/02/21 03/02/21 04:30 05:00 05:30 Temperature Pulse Rate 85 85 87 Pulse Rate [ From Monitor] Respiratory 26 H 27 H 29 H Rate Blood Pressure 126/86 110/71 110/71 O2 Sat by Pulse 88 82 L 84 Oximetry 03/02/21 03/02/21 03/02/21 06:00 06:30 07:00 Temperature Pulse Rate 86 85 90 Pulse Rate [ From Monitor] Respiratory 28 H 26 H 30 H Rate Blood Pressure 109/65 109/65 109/65 O2 Sat by Pulse 82 L 83 L 83 L Oximetry 03/02/21 03/02/21 03/02/21 07:30 08:00 08:30 Temperature 98.0 F Pulse Rate 83 84 88 Pulse Rate [ 95 H From Monitor] Respiratory 23 26 H 28 H Rate Blood Pressure 110/74 105/66 105/66 O2 Sat by Pulse 87 84 83 L Oximetry 03/02/21 03/02/21 03/02/21 08:53 09:00 09:30 Temperature Pulse Rate 90 93 H Pulse Rate [ From Monitor] Respiratory 30 H 27 H Rate Blood Pressure 103/73 103/73 O2 Sat by Pulse 86 90 88 Oximetry 03/02/21 03/02/21 03/02/21 09:44 10:00 10:30 Temperature Pulse Rate 100 H 99 H 103 H Pulse Rate [ From Monitor] Respiratory 26 H 34 H Rate Blood Pressure 103/73 124/85 124/85 O2 Sat by Pulse 85 Oximetry 03/02/21 03/02/21 03/02/21 11:00 11:30 12:00 Temperature 98.1 F Pulse Rate 105 H 99 H 102 H Pulse Rate [ 90 From Monitor] Respiratory 33 H 28 H 18 Rate Blood Pressure 112/64 112/64 112/64 O2 Sat by Pulse 87 82 L 86 Oximetry Constitutional: alert, other (on hiflo) ENT: oropharynx moist Neck: supple Ascultation: Bilateral: diminished breath sounds Cardiovascular: regular rate and rhythm Gastrointestinal: normoactive bowel sounds, soft, non-tender, non-distended Integumentary: normal Extremities: no cyanosis CBC and BMP: 01/14/22 05:12 03/01/21 05:12 ABG, PT/INR, D-dimer: ABG ABG pH 7.447 pH Units (7.350-7.450) 03/02/21 11:40 ABG pCO2 46.3 mm Hg 03/02/21 11:40 ABG pO2 35.9 mm Hg (80.0-90.0) L* 03/02/21 11:40 ABG O2 Saturation 68.0 % (95.0-99.0) L 03/02/21 11:40 PT/INR, D-dimer PT 13.9 Sec. (12.2-14.9) 02/17/21 14:34 INR 0.96 (0.87-1.13) 02/17/21 14:34 D-Dimer 3469.99 ng/mlDDU (0-234) H 03/01/21 05:12 Abnormal lab findings: Abnormal Labs 02/17/21 02/17/21 02/17/21 14:34 14:34 14:34 WBC 11.7 H RBC Hgb Hct 44.9 H RDW 15.6 H Seg Neuts % (Manual) Lymphocytes % (Manual) 9.0 L Monocytes % (Manual) 12.0 H Seg Neutrophils # Man 8.2 H Lymphocytes # (Manual) 1.1 L Monocytes # (Manual) 1.4 H D-Dimer ABG pH ABG pO2 ABG HCO3 ABG O2 Saturation ABG Base Excess Oxyhemoglobin Sodium Potassium 3.5 L Chloride BUN 27 H Creatinine Glucose 150 H POC Glucose Lactic Acid 2.90 H* Ferritin AST Lactate Dehydrogenase C-Reactive Protein NT-Pro-B Natriuret Pep Albumin Urine WBC (Auto) Coronavirus (PCR) 02/17/21 02/18/21 02/18/21 14:34 07:48 07:48 WBC 12.0 H RBC Hgb Hct RDW 15.4 H Seg Neuts % (Manual) 76.0 H Lymphocytes % (Manual) Monocytes % (Manual) Seg Neutrophils # Man 9.1 H Lymphocytes # (Manual) Monocytes # (Manual) D-Dimer ABG pH ABG pO2 ABG HCO3 ABG O2 Saturation ABG Base Excess Oxyhemoglobin Sodium Potassium Chloride BUN 36 H Creatinine Glucose 133 H POC Glucose Lactic Acid Ferritin AST 57 H Lactate Dehydrogenase C-Reactive Protein NT-Pro-B Natriuret Pep 1619 H Albumin 3.3 L Urine WBC (Auto) Coronavirus (PCR) 02/18/21 02/18/21 02/19/21 Unknown Unknown 07:32 WBC RBC Hgb Hct RDW Seg Neuts % (Manual) Lymphocytes % (Manual) Monocytes % (Manual) Seg Neutrophils # Man Lymphocytes # (Manual) Monocytes # (Manual) D-Dimer ABG pH ABG pO2 ABG HCO3 ABG O2 Saturation ABG Base Excess Oxyhemoglobin Sodium 148 H D Potassium Chloride BUN 41 H Creatinine Glucose 123 H POC Glucose Lactic Acid Ferritin AST 57 H Lactate Dehydrogenase C-Reactive Protein NT-Pro-B Natriuret Pep Albumin 3.7 L Urine WBC (Auto) 7.0 H Coronavirus (PCR) Positive A 02/19/21 02/19/21 02/20/21 07:32 08:43 05:00 WBC RBC Hgb Hct RDW Seg Neuts % (Manual) Lymphocytes % (Manual) Monocytes % (Manual) Seg Neutrophils # Man Lymphocytes # (Manual) Monocytes # (Manual) D-Dimer > 13579 H ABG pH ABG pO2 ABG HCO3 ABG O2 Saturation ABG Base Excess Oxyhemoglobin Sodium 147 H Potassium Chloride 107.6 H BUN 36 H Creatinine Glucose POC Glucose Lactic Acid Ferritin AST Lactate Dehydrogenase C-Reactive Protein 10.90 H NT-Pro-B Natriuret Pep Albumin 3.3 L Urine WBC (Auto) Coronavirus (PCR) 02/20/21 02/21/21 02/21/21 18:46 04:44 04:44 WBC 16.7 H RBC Hgb Hct RDW Seg Neuts % (Manual) Lymphocytes % (Manual) Monocytes % (Manual) Seg Neutrophils # Man Lymphocytes # (Manual) Monocytes # (Manual) D-Dimer ABG pH 7.453 H ABG pO2 55.0 L ABG HCO3 26.6 H ABG O2 Saturation 88.3 L ABG Base Excess Oxyhemoglobin 86.8 L Sodium Potassium Chloride BUN 26 H Creatinine Glucose 111 H POC Glucose Lactic Acid Ferritin AST Lactate Dehydrogenase C-Reactive Protein NT-Pro-B Natriuret Pep Albumin 3.4 L Urine WBC (Auto) Coronavirus (PCR) 02/22/21 02/23/21 02/23/21 04:47 09:05 09:05 WBC 19.3 H RBC 5.29 H Hgb 15.2 H Hct 47.7 H D RDW Seg Neuts % (Manual) 82.0 H Lymphocytes % (Manual) 6.0 L Monocytes % (Manual) Seg Neutrophils # Man 15.8 H Lymphocytes # (Manual) Monocytes # (Manual) 1.0 H D-Dimer ABG pH ABG pO2 ABG HCO3 ABG O2 Saturation ABG Base Excess Oxyhemoglobin Sodium Potassium Chloride BUN 25 H 27 H Creatinine Glucose 125 H POC Glucose Lactic Acid Ferritin AST Lactate Dehydrogenase C-Reactive Protein NT-Pro-B Natriuret Pep Albumin 3.3 L Urine WBC (Auto) Coronavirus (PCR) 02/23/21 02/23/21 02/24/21 11:33 16:24 04:50 WBC 14.8 H RBC Hgb Hct RDW Seg Neuts % (Manual) Lymphocytes % (Manual) Monocytes % (Manual) Seg Neutrophils # Man Lymphocytes # (Manual) Monocytes # (Manual) D-Dimer ABG pH ABG pO2 ABG HCO3 ABG O2 Saturation ABG Base Excess Oxyhemoglobin Sodium Potassium Chloride BUN Creatinine Glucose POC Glucose 117 H 163 H Lactic Acid Ferritin AST Lactate Dehydrogenase C-Reactive Protein NT-Pro-B Natriuret Pep Albumin Urine WBC (Auto) Coronavirus (PCR) 02/24/21 02/25/21 02/27/21 04:50 21:12 04:57 WBC 17.0 H RBC Hgb Hct 43.4 H RDW Seg Neuts % (Manual) 84.0 H Lymphocytes % (Manual) 4.0 L Monocytes % (Manual) Seg Neutrophils # Man 14.3 H Lymphocytes # (Manual) 0.7 L Monocytes # (Manual) 0.9 H D-Dimer ABG pH ABG pO2 ABG HCO3 ABG O2 Saturation ABG Base Excess Oxyhemoglobin Sodium Potassium Chloride BUN 23 H Creatinine Glucose POC Glucose 175 H Lactic Acid Ferritin AST Lactate Dehydrogenase C-Reactive Protein NT-Pro-B Natriuret Pep Albumin Urine WBC (Auto) Coronavirus (PCR) 02/27/21 02/27/21 02/27/21 04:57 04:57 04:57 WBC RBC Hgb Hct RDW Seg Neuts % (Manual) Lymphocytes % (Manual) Monocytes % (Manual) Seg Neutrophils # Man Lymphocytes # (Manual) Monocytes # (Manual) D-Dimer 5013.37 H ABG pH ABG pO2 ABG HCO3 ABG O2 Saturation ABG Base Excess Oxyhemoglobin Sodium Potassium Chloride BUN 23 H Creatinine 0.5 L Glucose 113 H POC Glucose Lactic Acid Ferritin 1272.0 H AST Lactate Dehydrogenase 438 H C-Reactive Protein 5.80 H NT-Pro-B Natriuret Pep Albumin Urine WBC (Auto) Coronavirus (PCR) 02/27/21 02/27/21 02/28/21 17:53 21:12 07:40 WBC RBC Hgb Hct RDW Seg Neuts % (Manual) Lymphocytes % (Manual) Monocytes % (Manual) Seg Neutrophils # Man Lymphocytes # (Manual) Monocytes # (Manual) D-Dimer ABG pH ABG pO2 ABG HCO3 ABG O2 Saturation ABG Base Excess Oxyhemoglobin Sodium Potassium Chloride BUN Creatinine Glucose POC Glucose 159 H 112 H 123 H Lactic Acid Ferritin AST Lactate Dehydrogenase C-Reactive Protein NT-Pro-B Natriuret Pep Albumin Urine WBC (Auto) Coronavirus (PCR) 02/28/21 02/28/21 02/28/21 11:42 16:20 22:26 WBC RBC Hgb Hct RDW Seg Neuts % (Manual) Lymphocytes % (Manual) Monocytes % (Manual) Seg Neutrophils # Man Lymphocytes # (Manual) Monocytes # (Manual) D-Dimer ABG pH ABG pO2 ABG HCO3 ABG O2 Saturation ABG Base Excess Oxyhemoglobin Sodium Potassium Chloride BUN Creatinine Glucose POC Glucose 112 H 138 H 129 H Lactic Acid Ferritin AST Lactate Dehydrogenase C-Reactive Protein NT-Pro-B Natriuret Pep Albumin Urine WBC (Auto) Coronavirus (PCR) 03/01/21 03/01/21 03/01/21 05:12 05:12 05:12 WBC 15.0 H RBC 5.05 H Hgb Hct 44.7 H RDW Seg Neuts % (Manual) 71.0 H Lymphocytes % (Manual) 11.0 L Monocytes % (Manual) 12.0 H Seg Neutrophils # Man 10.7 H Lymphocytes # (Manual) Monocytes # (Manual) 1.8 H D-Dimer 3469.99 H ABG pH ABG pO2 ABG HCO3 ABG O2 Saturation ABG Base Excess Oxyhemoglobin Sodium Potassium Chloride 97.3 L BUN Creatinine 0.5 L Glucose 115 H POC Glucose Lactic Acid Ferritin AST Lactate Dehydrogenase 385 H C-Reactive Protein 11.20 H NT-Pro-B Natriuret Pep Albumin 2.8 L Urine WBC (Auto) Coronavirus (PCR) 03/01/21 03/01/21 03/01/21 05:12 07:30 11:42 WBC RBC Hgb Hct RDW Seg Neuts % (Manual) Lymphocytes % (Manual) Monocytes % (Manual) Seg Neutrophils # Man Lymphocytes # (Manual) Monocytes # (Manual) D-Dimer ABG pH ABG pO2 ABG HCO3 ABG O2 Saturation ABG Base Excess Oxyhemoglobin Sodium Potassium Chloride BUN Creatinine Glucose POC Glucose 130 H 143 H Lactic Acid Ferritin 1526.0 H AST Lactate Dehydrogenase C-Reactive Protein NT-Pro-B Natriuret Pep Albumin Urine WBC (Auto) Coronavirus (PCR) 03/01/21 03/01/21 03/01/21 15:28 17:53 21:16 WBC RBC Hgb Hct RDW Seg Neuts % (Manual) Lymphocytes % (Manual) Monocytes % (Manual) Seg Neutrophils # Man Lymphocytes # (Manual) Monocytes # (Manual) D-Dimer ABG pH ABG pO2 ABG HCO3 ABG O2 Saturation ABG Base Excess Oxyhemoglobin Sodium Potassium Chloride BUN Creatinine Glucose POC Glucose 138 H 120 H 157 H Lactic Acid Ferritin AST Lactate Dehydrogenase C-Reactive Protein NT-Pro-B Natriuret Pep Albumin Urine WBC (Auto) Coronavirus (PCR) 03/01/21 03/02/21 03/02/21 22:07 07:44 11:40 WBC RBC Hgb Hct RDW Seg Neuts % (Manual) Lymphocytes % (Manual) Monocytes % (Manual) Seg Neutrophils # Man Lymphocytes # (Manual) Monocytes # (Manual) D-Dimer ABG pH ABG pO2 35.9 L* ABG HCO3 31.2 H ABG O2 Saturation 68.0 L ABG Base Excess 6.1 H Oxyhemoglobin 66.1 L Sodium Potassium Chloride BUN Creatinine Glucose POC Glucose 125 H 203 H Lactic Acid Ferritin AST Lactate Dehydrogenase C-Reactive Protein NT-Pro-B Natriuret Pep Albumin Urine WBC (Auto) Coronavirus (PCR) 03/02/21 12:13 WBC RBC Hgb Hct RDW Seg Neuts % (Manual) Lymphocytes % (Manual) Monocytes % (Manual) Seg Neutrophils # Man Lymphocytes # (Manual) Monocytes # (Manual) D-Dimer ABG pH ABG pO2 ABG HCO3 ABG O2 Saturation ABG Base Excess Oxyhemoglobin Sodium Potassium Chloride BUN Creatinine Glucose POC Glucose 130 H Lactic Acid Ferritin AST Lactate Dehydrogenase C-Reactive Protein NT-Pro-B Natriuret Pep Albumin Urine WBC (Auto) Coronavirus (PCR)
[2021-03-02 13:22] LABS: ABG Base Excess 4.7 mmol/L (-2.0-3.0); ABG HCO3 29.5 mmol/L (20.0-26.0); ABG Methemoglobin 0.7 % (0.0-1.5); ABG Oxygen Saturation 68.7 % (95.0-99.0); ABG PCO2 43.9 mm Hg; ABG PH 7.445 pH Units (7.350-7.450)
[2021-03-02] MEDS: INSULIN GLARGINE 100 UNITS/ML SUB-Q SCH (22:58)
--- NOTE | 2021-03-03 08:55 | Progress Note ---
Assessment and Plan Assessment and plan: Patient is 61 years old female with history of hypertension, diabetes and DVT currently on Eliquis. Patient brought to the emergency room via EMS from home for evaluation of shortness of breath cough and generalized weakness for the last 5 days. Patient stated that she tested positive for COVID-19 on February 10 and since then she has not been feeling well. EMS stated that patient initial oxygen saturation was 75% on room air improved to 86% on a nonrebreather. Patient stated that her daughter also tested positive. 02/19/2020 Patient on 50% Ventimask Covid positive Continue steroids May DC antibiotics Respiratory assessment and treatment 02/19: Patient still hypoxic, encourage prone positioning, Pulmonary and ID consult. Will obtain CTA chest to evaluate for PE. Continue steroid therapy and oxygen therapy wean as tolerated. Continuous pulse oximeter. Plan discussed with the patient. 02/20: Patient seen and examined, remains on NRBM. awaiting CT CHEST WITH ANGIO Ordered yesterday. Encourage proning the patient says she was not proned yesterday discussed with nursing staff. Continue steroid therapy and remdesivir. Patient was seen by ID and as documented by ID"She is a candidate for Actemra based on CRp and O2 requirements. unfortunately we have not been getting procalcitonin results. -ordered Actemra once (afebrile, white count only mildly elevated in the setting of steroids)" Discussed plan of care with the nurse. Also called to updated the patients sister listed as NOK but got voice mail 02/21: Continue steroids, remdesivir, patient received 1 dose of Actemra but unable to get the second dose due to availability. CTA showed dense consolidation but no effusion and no pulmonary embolism patient does have a lower extremity DVT. Eliquis continues at full dose of 5 mg twice daily we will continue to monitor closely. Prognosis is guarded counseling for compliance for 15 minutes. 02/22: Patient clinically not improving much of switch the patient to Lovenox. Prognosis remains guarded. Continue anticoagulation due to DVT still suspicious of pulmonary embolism as a result we will obtain echocardiogram and vascular consult per pulmonary request which I agree with. I will also transfer the patient to stepdown unit for closer monitoring. 02/23: Vascular input noted agree the patient has subsegmental bibasilar pulmonary embolism but not enough to warrant intervention. Does not feel that this is contributing majority to her hypoxia. Nevertheless we will switch patient from Eliquis to Lovenox. Continue current management with remdesivir 02/24: Patient seen and examined, remains on anticoagulation, continue remedsivir and steroids. prone as tolerated, will give additional lasix today. Guarded prognosis. 02/25 A&O x 3, C/O mild cough with mucoid expectorant. Denies CP or shortness of breath. Remains on HFNC. pulmonary note and lab results reviewed 02/26: AOX3, proning on encounter. Encouraged continued movement while in bed and with assistance of care staff. Remains on HFNC. Last day of decadron today. 02/27: Patient encouraged to continue proning and remain active. Discussed with PT to come work with patient to mobilize. Will d/w CM for termite exterminator placement solution. 02/28: Patient stated she would like to be a full code. Working with CM for LTAC placement. 03/01: Awaiting LTAC placement. Remains full code. Spoke with daughter Meghna who was updated on patient's case. 03/02: Sats in low 80s on hi lfow. Blood gas shows pao2 = 35.9. will start bipap, d/w IMCU RN who will notify RT. repeat abg in 1 hr. Poor prognosis. 03/03; Sats in low 90's on bipap. Repeat abg this AM demosntrates marginal improvement in PaO2. PCCM d/w daughter, patient and her daughter would like intubation should she continue to deteriorate. Prognosis remains poor. (1) Acute respiratory failure with hypoxia Current Visit: Yes Status: Acute Plan to address problem: 2/2 covid PNA she is on HFNC at 40L and 100% Fio2 --> will place back on bipap. O2 sat 90% pulmonary following cont. Decadron - stop date 02/26 wean as tolerated (2) SIRS (systemic inflammatory response syndrome) Current Visit: Yes Status: Acute Plan to address problem: Clinical picture consistent with Sirs (3) Multifocal pneumonia Current Visit: Yes Status: Acute Plan to address problem: 2/2 covid 19 off Abx (4)COVID-19 virus infection Current Visit: Yes Status: Acute Plan to address problem: completed remdesivir cont. decadron - stop date 02/26 proning as tolerated (5) Hypertension Current Visit: Yes Status: Chronic Qualifiers: Hypertension type: primary hypertension Qualified Code(s): I10 - Essential (primary) hypertension Plan to address problem: Fair cont. present medications (6) T2DM (type 2 diabetes mellitus) Current Visit: Yes Status: Chronic Qualifiers: Diabetes mellitus correction insulin use: unspecified correction insulin use status Plan to address problem: Continue Metformin and ISS coverage (7) Hypernatremia resolved (8) DVT LOWER EXT- RIGHT / and sub segmental PE cont. therapeutic lovenox (9) DVT prophylaxis Current Visit: Yes Status: Acute CODE STATUS: Full Code The high probability of a clinically significant, sudden or life threatening deterioration of the [pulmonary] system(s) required my full and direct attention, intervention and personal management. The aggregate critical care time was [60] minutes. This time is in addition to time spent performing re ported procedures but includes the following: [X] Data Review and interpretation [X] Patient assessment and monitoring of vital signs [X] Documentation [X] Medication orders and management History Interval history: Remains on bipap since yesterday. sats in low 90s. Hospitalist Physical - Physical exam Narrative exam: Physical Exam: Constitutional: Alert, cooperative. Mild resp distress Head, Ears, Nose: Normocephalic, atraumatic. External ears, nose normal Eyes: Conjunctivae/corneas clear. No icterus. No ptosis. Neck: Supple, no meningeal signs Oral: Deferred due to COVID-19 Cardiovascular: S1, S2 + Respiratory: AE fair bilaterally GI: Soft, non-tender; bowel sounds normal. No peritoneal signs Musculoskeletal: No pedal edema, no cyanosis. Skin: No rash or abscess Hem/Lymphatic: No palpable cervical or supraclavicular nodes. No lymphangitis Psych: No agitation Neurological: Awake, alert - Constitutional Vitals: Temp Pulse Resp BP Pulse Ox 98.9 F 101 H 33 H 127/91 90 03/03/21 04:00 03/03/21 06:00 03/03/21 06:00 03/03/21 06:00 03/03/21 06:00 General appearance: Present: no acute distress, well-nourished Results - Labs CBC & Chem 7: 03/03/21 10:05 03/03/21 10:05 Labs: Laboratory Last Values WBC 15.0 K/mm3 (4.5-11.0) H 03/01/21 05:12 RBC 5.05 M/mm3 (3.65-5.03) H 03/01/21 05:12 Hgb 14.0 gm/dl (10.1-14.3) 03/01/21 05:12 Hct 44.7 % (30.3-42.9) H 03/01/21 05:12 MCV 89 fl (79-97) 03/01/21 05:12 MCH 28 pg (28-32) 03/01/21 05:12 MCHC 31 % (30-34) 03/01/21 05:12 RDW 14.6 % (13.2-15.2) 03/01/21 05:12 Plt Count 353 K/mm3 (140-440) 03/01/21 05:12 Add Manual Diff Complete 03/01/21 05:12 Total Counted 100 03/01/21 05:12 Seg Neuts % (Manual) 71.0 % (40.0-70.0) H 03/01/21 05:12 Band Neutrophils % 3.0 % 03/01/21 05:12 Lymphocytes % (Manual) 11.0 % (13.4-35.0) L 03/01/21 05:12 Reactive Lymphs % (Man) 0 % 03/01/21 05:12 Monocytes % (Manual) 12.0 % (0.0-7.3) H 03/01/21 05:12 Eosinophils % (Manual) 1.0 % (0.0-4.3) 03/01/21 05:12 Basophils % (Manual) 0 % (0.0-1.8) 03/01/21 05:12 Metamyelocytes % 0 % 03/01/21 05:12 Myelocytes % 2.0 % 03/01/21 05:12 Promyelocytes % 0 % 03/01/21 05:12 Blast Cells % 0 % 03/01/21 05:12 Nucleated RBC % Not Reportable 03/01/21 05:12 Seg Neutrophils # Man 10.7 K/mm3 (1.8-7.7) H 03/01/21 05:12 Band Neutrophils # 0.5 K/mm3 03/01/21 05:12 Lymphocytes # (Manual) 1.7 K/mm3 (1.2-5.4) 03/01/21 05:12 Abs React Lymphs (Man) 0.0 K/mm3 03/01/21 05:12 Monocytes # (Manual) 1.8 K/mm3 (0.0-0.8) H 03/01/21 05:12 Eosinophils # (Manual) 0.2 K/mm3 (0.0-0.4) 03/01/21 05:12 Basophils # (Manual) 0.0 K/mm3 (0.0-0.1) 03/01/21 05:12 Metamyelocytes # 0.0 K/mm3 03/01/21 05:12 Myelocytes # 0.3 K/mm3 03/01/21 05:12 Promyelocytes # 0.0 K/mm3 03/01/21 05:12 Blast Cells # 0.0 K/mm3 03/01/21 05:12 WBC Morphology Not Reportable 03/01/21 05:12 Hypersegmented Neuts Not Reportable 03/01/21 05:12 Hyposegmented Neuts Not Reportable 03/01/21 05:12 Hypogranular Neuts Not Reportable 03/01/21 05:12 Smudge Cells Not Reportable 03/01/21 05:12 Toxic Granulation Not Reportable 03/01/21 05:12 Toxic Vacuolation Not Reportable 03/01/21 05:12 Dohle Bodies Not Reportable 03/01/21 05:12 Pelger-Huet Anomaly Not Reportable 03/01/21 05:12 Cindy Rods Not Reportable 03/01/21 05:12 Platelet Estimate Consistent w auto 03/01/21 05:12 Clumped Platelets Not Reportable 03/01/21 05:12 Plt Clumps, EDTA Not Reportable 03/01/21 05:12 Large Platelets Not Reportable 03/01/21 05:12 Giant Platelets Not Reportable 03/01/21 05:12 Platelet Satelliting Not Reportable 03/01/21 05:12 Plt Morphology Comment Not Reportable 03/01/21 05:12 RBC Morphology Normal 03/01/21 05:12 Dimorphic RBCs Not Reportable 03/01/21 05:12 Polychromasia Not Reportable 03/01/21 05:12 Hypochromasia Not Reportable 03/01/21 05:12 Poikilocytosis Not Reportable 03/01/21 05:12 Anisocytosis Not Reportable 03/01/21 05:12 Microcytosis Not Reportable 03/01/21 05:12 Macrocytosis Not Reportable 03/01/21 05:12 Spherocytes Not Reportable 03/01/21 05:12 Pappenheimer Bodies Not Reportable 03/01/21 05:12 Sickle Cells Not Reportable 03/01/21 05:12 Target Cells Not Reportable 03/01/21 05:12 Tear Drop Cells Not Reportable 03/01/21 05:12 Ovalocytes Not Reportable 03/01/21 05:12 Helmet Cells Not Reportable 03/01/21 05:12 [place] Bodies Not Reportable 03/01/21 05:12 [place] Rings Not Reportable 03/01/21 05:12 Alicia Cells Not Reportable 03/01/21 05:12 Bite Cells Not Reportable 03/01/21 05:12 Crenated Cell Not Reportable 03/01/21 05:12 Elliptocytes Not Reportable 03/01/21 05:12 Acanthocytes (Spur) Not Reportable 03/01/21 05:12 Rouleaux Not Reportable 03/01/21 05:12 Hemoglobin C Crystals Not Reportable 03/01/21 05:12 Schistocytes Not Reportable 03/01/21 05:12 Malaria parasites Not Reportable 03/01/21 05:12 [place] Bodies Not Reportable 03/01/21 05:12 Hem Pathologist Commnt No 03/01/21 05:12 PT 13.9 Sec. (12.2-14.9) 02/17/21 14:34 INR 0.96 (0.87-1.13) 02/17/21 14:34 APTT 26.4 Sec. (24.2-36.6) 02/17/21 14:34 D-Dimer 3469.99 ng/mlDDU (0-234) H 03/01/21 05:12 ABG pH 7.445 pH Units (7.350-7.450) 03/02/21 13:00 ABG pCO2 43.9 mm Hg 03/02/21 13:00 ABG pO2 36.0 mm Hg (80.0-90.0) L* 03/02/21 13:00 ABG HCO3 29.5 mmol/L (20.0-26.0) H 03/02/21 13:00 ABG O2 Saturation 68.7 % (95.0-99.0) L 03/02/21 13:00 ABG O2 Content 13.7 (0.0-44) 03/02/21 13:00 ABG Base Excess 4.7 mmol/L (-2.0-3.0) H 03/02/21 13:00 ABG Hemoglobin 14.6 gm/dl (12.0-16.0) 03/02/21 13:00 ABG Carboxyhemoglobin 2.0 % (0.0-5.0) 03/02/21 13:00 ABG Methemoglobin 0.7 % (0.0-1.5) 03/02/21 13:00 Oxyhemoglobin 66.8 % (95.0-99.0) L 03/02/21 13:00 FiO2 100 % 03/02/21 13:00 Sodium 138 mmol/L (137-145) 03/01/21 05:12 Potassium 3.7 mmol/L (3.6-5.0) 03/01/21 05:12 Chloride 97.3 mmol/L (98-107) L 03/01/21 05:12 Carbon Dioxide 28 mmol/L (22-30) 03/01/21 05:12 Anion Gap 16 mmol/L 03/01/21 05:12 BUN 17 mg/dL (7-17) 03/01/21 05:12 Creatinine 0.5 mg/dL (0.6-1.2) L 03/01/21 05:12 Estimated GFR > 60 ml/min 03/01/21 05:12 BUN/Creatinine Ratio 34 % 03/01/21 05:12 Glucose 115 mg/dL (65-100) H 03/01/21 05:12 POC Glucose 128 mg/dL (70-105) H 03/03/21 08:02 Lactic Acid 1.60 mmol/L (0.7-2.0) 02/17/21 18:39 Calcium 9.0 mg/dL (8.4-10.2) 03/01/21 05:12 Phosphorus 4.00 mg/dL (2.5-4.5) 02/28/21 18:41 Magnesium 2.00 mg/dL (1.7-2.3) 02/28/21 18:41 Ferritin 1526.0 ng/mL (10.0-200.0) H 03/01/21 05:12 Total Bilirubin 0.40 mg/dL (0.1-1.2) 03/01/21 05:12 Direct Bilirubin < 0.2 mg/dL (0-0.2) 02/17/21 14:34 Indirect Bilirubin 0.1 mg/dL 02/17/21 14:34 AST 23 units/L (5-40) 03/01/21 05:12 ALT 24 units/L (7-56) 03/01/21 05:12 Alkaline Phosphatase 67 units/L (35-129) 03/01/21 05:12 Lactate Dehydrogenase 385 units/L (91-180) H 03/01/21 05:12 C-Reactive Protein 11.20 mg/dL (0.00-1.30) H 03/01/21 05:12 NT-Pro-B Natriuret Pep 86.77 pg/mL (0-900) 02/20/21 16:34 Total Protein 6.8 g/dL (6.3-8.2) 03/01/21 05:12 Albumin 2.8 g/dL (3.9-5) L 03/01/21 05:12 Albumin/Globulin Ratio 0.7 % 03/01/21 05:12 Procalcitonin 0.11 ng/mL (<0.15) 02/19/21 07:32 Urine Color Cassandra (Yellow) 02/18/21 Unknown Urine Turbidity Cloudy (Clear) 02/18/21 Unknown Urine pH 5.0 (5.0-7.0) 02/18/21 Unknown Ur Specific [place] 1.027 (1.003-1.030) 02/18/21 Unknown Urine Protein 100 mg/dl mg/dL (Negative) 02/18/21 Unknown Urine Glucose (UA) Neg mg/dL (Negative) 02/18/21 Unknown Urine Ketones Neg mg/dL (Negative) 02/18/21 Unknown Urine Blood Neg (Negative) 02/18/21 Unknown Urine Nitrite Neg (Negative) 02/18/21 Unknown Urine Bilirubin Neg (Negative) 02/18/21 Unknown Urine Urobilinogen < 2.0 mg/dL (<2.0) 02/18/21 Unknown Ur Leukocyte Esterase Neg (Negative) 02/18/21 Unknown Urine WBC (Auto) 7.0 /HPF (0.0-6.0) H 02/18/21 Unknown Urine RBC (Auto) 4.0 /HPF (0.0-6.0) 02/18/21 Unknown U Epithel Cells (Auto) 3.0 /HPF (0-13.0) 02/18/21 Unknown Urine Mucus 2+ /HPF 02/18/21 Unknown Coronavirus (PCR) Positive (Negative) A 02/18/21 Unknown Head/IV: Voiding Method External Female Catheter Active Medications - Current Medications Current Medications: Generic Name Dose Route Start Last Admin Trade Name Freq PRN Reason Stop Dose Admin Acetaminophen 650 mg 02/17/21 23:58 03/02/21 09:45 Acetaminophen 325 Mg Tab PO 650 mg Q4H PRN Administration Pain MILD(1-3)/Fever >100.5/BROWN Amlodipine Besylate 10 mg 02/19/21 10:00 03/02/21 09:44 Amlodipine 10 Mg Tab PO 10 mg DAILY DEISY Administration Ascorbic Acid 1,000 mg 02/19/21 10:00 03/02/21 21:34 Ascorbic Acid 500 Mg Tab PO Not Given BID [facility] Cholecalciferol 5,000 unit 02/19/21 10:00 03/02/21 09:45 Cholecalciferol (Vit D3) 5,000 Unit Tab PO 5,000 unit DAILY DEISY Administration Dextrose 50 ml 02/27/21 11:30 Dextrose 50% In Water (25gm) 50 Ml Syringe IV Q30MIN PRN Hypoglycemia Protocol Enoxaparin Sodium 90 mg 02/22/21 10:00 03/02/21 21:51 Enoxaparin 100 Mg/1 Ml Inj 1 mg/kg (90 mg) 90 mg SUB-Q Administration Q12HR [facility] Protocol Famotidine 20 mg 02/18/21 10:00 03/02/21 21:33 Famotidine 20 Mg Tab PO Not Given BID DEISY Furosemide 40 mg 02/18/21 08:00 03/02/21 09:45 Furosemide 40 Mg/4 Ml Inj IV 40 mg 0800 DEISY Administration Gabapentin 400 mg 02/19/21 04:00 03/02/21 21:33 Gabapentin 400 Mg Cap PO Not Given BID DEISY Hydromorphone HCl 0.5 mg 01/02/22 23:58 Hydromorphone 1 Mg/1 Ml Inj IV Q3H PRN Pain , Severe (7-10) Insulin Glargine 10 units 03/02/21 22:00 03/02/21 22:58 Insulin Glargine 100 Units/Ml SUB-Q 10 units QHS DEISY Administration Insulin Human Lispro 0 unit 02/27/21 11:30 03/02/21 21:50 Insulin Lispro 100 Unit/Ml SUB-Q Not Given ACHS [facility] Protocol Ondansetron HCl 4 mg 02/17/21 23:58 Ondansetron 4 Mg/2 Ml Inj IV Q8H PRN Nausea And Vomiting Oxycodone/Acetaminophen 1 tab 02/17/21 23:58 02/27/21 04:22 Oxycodone /Acetaminophen 5-325mg Tab PO 1 tab Q6H PRN Administration Pain, Moderate (4-6) Sertraline HCl 50 mg 02/19/21 10:00 03/02/21 09:45 Sertraline 50 Mg Tab PO 50 mg QDAY DEISY Administration Sodium Chloride 10 ml 02/18/21 10:00 03/02/21 21:34 Sodium Chloride 0.9% 10 Ml Flush Syringe IV 10 ml BID DEISY Administration Sodium Chloride 10 ml 02/17/21 23:58 Sodium Chloride 0.9% 10 Ml Flush Syringe IV PRN PRN LINE FLUSH Zinc Sulfate 220 mg 02/19/21 10:00 03/02/21 09:45 Zinc Sulfate 220 Mg Cap PO 220 mg QDAY DEISY Administration Nutrition/Malnutrition Assess - Dietary Evaluation Nutrition/Malnutrition Findings: Nutrition Notes Start: 02/25/21 16:10 Freq: Status: Active Protocol: Document 02/25/21 16:10 ALEC (Rec: 02/25/21 16:47 ALEC [id number]) Nutrition Notes Need for Assessment generated from: LOS Initial or Follow up Assessment Current Diagnosis Diabetes,Hypertension, Respiratory Failure Other Pertinent Diagnosis COVID-19 pneumonia, SIRS. Current Diet Cardiac Diet (since B 02/18). Labs/Tests 02/24" BUN 23. Pertinent Medications 02/25: Vit C, Vit D3, ZnSO4, others nutritionally unremarkable. Height 5 ft 6 in Weight 86.183 kg [place] Body Weight (kg) 59.09 BMI 30.7 Intake Prior to Admission Good Weight change and time frame None, according to admission report. Weight Status Obese Subjective/Other Information RD consult for LOS assessment. Pt on NIV/Bi-Pap+. No report available on Pt's % PO intake of meals at the time . F/U on PO intake of meals assessment. Percent of energy/protein needs met: Prescribed Cardiac Diet provides for energy/protein needs (2,230 Kcal/85 g) during LOS. Burn Absent Trauma Absent GI Symptoms None Food Allergy No Skin Integrity/Comment Clear, warm, dry. Minimum of two criteria No Is patient on ventilator? No Is Patient Ambulatory and/or Out of Bed Yes REE-(Tyrone-St. Jeor-ambulatory/OOB) [ 1876.654 [id number]] Kcal/Kg value to use for calculation 13 Approximate Energy Requirements Using 1120 kcal/Kg Calculation Used for Recommendations Kcal/kg Additional Notes Protein: >2 g/Kg; >118 g/day. Fluids: 1 ml/Kcal, or as per MD. Nutrition Intervention Change Diet Order: Continue Cardiac Diet. Follow-Up By: 03/04/21 Additional Comments Continue monitoring food tolerance, %PO intake of meals , and BM.
--- NOTE | 2021-03-03 09:09 | Progress Note ---
Assessment and Plan 61 y/o female with acute respiratory failure secondary to COVID 19 pneumonia. 03/03/21: Long discussion at bedside with patient. Today she stated that she did not want to be intubated. I attempted to call her daughter while I was in the room with the patient but no answer. She will remain full code as she has said this in the past and then revoked after speaking with the daughter ( which is why i called her again this morning). Continue bipap and monitor. Guarded prognosis. 03/02/21: Prone if able. Continue steroids. Negative fluid balance if possible. Prognosis remains very guarded 02/28/21: Prone. Steroids. Net negative fluid balance if possible. Guarded prognosis. 02/27/21: Full code status. Prone as much as possible during the day and sleep prone at night. Patient may require intubation ultimately. Guarded prognosis. 02/26/21: Prone if possible. Continue anticoagulation for DVT. Steroids. Net negative fluid balance. 02/25/21: Long discussion at bedside with patient, whom per her, she has discussed this with her daughter. She does no want an endotracheal tube. She does not want chest compression and she does not want shocks. I did not ask about vasopressors. The patient is awake and alert and oriented. This needs to be addressed by primary team as well an if confirmed, I have no problem with cosigning AND order. Continue supportive measures for now. Guarded to poor prognosis. 02/21/21: BNP normal. Still would attempt to achieve net negative fluid balance daily. Continue Remdesivir and steroids. Prone if patient willing. Follow up CTA results. Discussed with IMS, may change anticoagulation but awaiting official ready on CTA. Guareded prognosis. 02/20/21: Follow up CTA results. Will send BNP. Continue steroids and Remdesivir. Guarded prognosis. Prone if able, very pertinent to do this. 1. self proning as tolerated during the day and prone at night while sleeping 2. Steroids and Remdesivir 3. Daily net negative volume state 4. Consider checking BNP and echo to make sure no edema on this film 5. Agree with empiric anticoagulation given elevated D-Dimer Guarded prognosis. Will continue to follow. Subjective Date of service: 03/03/21 Principal diagnosis: COVID pneumonia Interval history: No acute events overnight, however satting in the low to mid 80's bipap. Wants to keep coming off to eat ice chips. Objective Vital Signs - 12hr 03/02/21 03/02/21 03/02/21 21:31 22:00 22:31 Temperature Pulse Rate 91 H 95 H 95 H Pulse Rate [ From Monitor] Respiratory 34 H 24 18 Rate Blood Pressure 120/80 109/71 109/71 O2 Sat by Pulse 91 91 92 Oximetry 03/02/21 03/02/21 03/02/21 23:01 23:25 23:31 Temperature Pulse Rate 98 H 103 H 105 H Pulse Rate [ From Monitor] Respiratory 19 39 H 35 H Rate Blood Pressure 128/89 128/89 128/89 O2 Sat by Pulse 80 L 91 87 Oximetry 03/02/21 03/03/21 03/03/21 23:33 00:00 00:31 Temperature 97.9 F Pulse Rate 101 H 101 H Pulse Rate [ 93 H From Monitor] Respiratory 22 36 H 37 H Rate Blood Pressure 128/89 129/73 129/73 O2 Sat by Pulse 88 92 89 Oximetry 03/03/21 03/03/21 03/03/21 01:00 01:31 02:00 Temperature Pulse Rate 99 H 105 H 103 H Pulse Rate [ From Monitor] Respiratory 30 H 33 H 25 H Rate Blood Pressure 114/79 114/79 114/79 O2 Sat by Pulse 86 89 93 Oximetry 03/03/21 03/03/21 03/03/21 02:31 03:00 03:31 Temperature Pulse Rate 103 H 103 H 101 H Pulse Rate [ From Monitor] Respiratory 17 22 19 Rate Blood Pressure 112/76 111/75 111/75 O2 Sat by Pulse 88 93 93 Oximetry 03/03/21 03/03/21 03/03/21 04:00 04:01 04:20 Temperature 98.9 F Pulse Rate 109 H 100 H Pulse Rate [ 93 H From Monitor] Respiratory 35 H 34 H 26 H Rate Blood Pressure 92/58 92/58 O2 Sat by Pulse 85 89 91 Oximetry 03/03/21 03/03/21 03/03/21 04:31 05:00 05:31 Temperature Pulse Rate 98 H 99 H 101 H Pulse Rate [ From Monitor] Respiratory 13 31 H 27 H Rate Blood Pressure 92/58 130/82 130/82 O2 Sat by Pulse 93 89 92 Oximetry 03/03/21 03/03/21 06:00 08:00 Temperature Pulse Rate 101 H 111 H Pulse Rate [ From Monitor] Respiratory 33 H 43 H Rate Blood Pressure 127/91 134/88 O2 Sat by Pulse 90 89 Oximetry Constitutional: alert, other (on hiflo) ENT: oropharynx moist Neck: supple Ascultation: Bilateral: diminished breath sounds Cardiovascular: regular rate and rhythm Gastrointestinal: normoactive bowel sounds, soft, non-tender, non-distended Integumentary: normal Extremities: no cyanosis CBC and BMP: 03/01/21 05:12 03/01/21 05:12 ABG, PT/INR, D-dimer: ABG ABG pH 7.445 pH Units (7.350-7.450) 03/02/21 13:00 ABG pCO2 43.9 mm Hg 03/02/21 13:00 ABG pO2 36.0 mm Hg (80.0-90.0) L* 03/02/21 13:00 ABG O2 Saturation 68.7 % (95.0-99.0) L 03/02/21 13:00 PT/INR, D-dimer PT 13.9 Sec. (12.2-14.9) 02/17/21 14:34 INR 0.96 (0.87-1.13) 02/17/21 14:34 D-Dimer 3469.99 ng/mlDDU (0-234) H 03/01/21 05:12 Abnormal lab findings: Abnormal Labs 02/17/21 02/17/21 02/17/21 14:34 14:34 14:34 WBC 11.7 H RBC Hgb Hct 44.9 H RDW 15.6 H Seg Neuts % (Manual) Lymphocytes % (Manual) 9.0 L Monocytes % (Manual) 12.0 H Seg Neutrophils # Man 8.2 H Lymphocytes # (Manual) 1.1 L Monocytes # (Manual) 1.4 H D-Dimer ABG pH ABG pO2 ABG HCO3 ABG O2 Saturation ABG Base Excess Oxyhemoglobin Sodium Potassium 3.5 L Chloride BUN 27 H Creatinine Glucose 150 H POC Glucose Lactic Acid 2.90 H* Ferritin AST Lactate Dehydrogenase C-Reactive Protein NT-Pro-B Natriuret Pep Albumin Urine WBC (Auto) Coronavirus (PCR) 02/17/21 02/18/21 02/18/21 14:34 07:48 07:48 WBC 12.0 H RBC Hgb Hct RDW 15.4 H Seg Neuts % (Manual) 76.0 H Lymphocytes % (Manual) Monocytes % (Manual) Seg Neutrophils # Man 9.1 H Lymphocytes # (Manual) Monocytes # (Manual) D-Dimer ABG pH ABG pO2 ABG HCO3 ABG O2 Saturation ABG Base Excess Oxyhemoglobin Sodium Potassium Chloride BUN 36 H Creatinine Glucose 133 H POC Glucose Lactic Acid Ferritin AST 57 H Lactate Dehydrogenase C-Reactive Protein NT-Pro-B Natriuret Pep 1619 H Albumin 3.3 L Urine WBC (Auto) Coronavirus (PCR) 02/18/21 02/18/21 02/19/21 Unknown Unknown 07:32 WBC RBC Hgb Hct RDW Seg Neuts % (Manual) Lymphocytes % (Manual) Monocytes % (Manual) Seg Neutrophils # Man Lymphocytes # (Manual) Monocytes # (Manual) D-Dimer ABG pH ABG pO2 ABG HCO3 ABG O2 Saturation ABG Base Excess Oxyhemoglobin Sodium 148 H D Potassium Chloride BUN 41 H Creatinine Glucose 123 H POC Glucose Lactic Acid Ferritin AST 57 H Lactate Dehydrogenase C-Reactive Protein NT-Pro-B Natriuret Pep Albumin 3.7 L Urine WBC (Auto) 7.0 H Coronavirus (PCR) Positive A 02/19/21 02/19/21 02/20/21 07:32 08:43 05:00 WBC RBC Hgb Hct RDW Seg Neuts % (Manual) Lymphocytes % (Manual) Monocytes % (Manual) Seg Neutrophils # Man Lymphocytes # (Manual) Monocytes # (Manual) D-Dimer > 13064 H ABG pH ABG pO2 ABG HCO3 ABG O2 Saturation ABG Base Excess Oxyhemoglobin Sodium 147 H Potassium Chloride 107.6 H BUN 36 H Creatinine Glucose POC Glucose Lactic Acid Ferritin AST Lactate Dehydrogenase C-Reactive Protein 10.90 H NT-Pro-B Natriuret Pep Albumin 3.3 L Urine WBC (Auto) Coronavirus (PCR) 02/20/21 02/21/21 02/21/21 18:46 04:44 04:44 WBC 16.7 H RBC Hgb Hct RDW Seg Neuts % (Manual) Lymphocytes % (Manual) Monocytes % (Manual) Seg Neutrophils # Man Lymphocytes # (Manual) Monocytes # (Manual) D-Dimer ABG pH 7.453 H ABG pO2 55.0 L ABG HCO3 26.6 H ABG O2 Saturation 88.3 L ABG Base Excess Oxyhemoglobin 86.8 L Sodium Potassium Chloride BUN 26 H Creatinine Glucose 111 H POC Glucose Lactic Acid Ferritin AST Lactate Dehydrogenase C-Reactive Protein NT-Pro-B Natriuret Pep Albumin 3.4 L Urine WBC (Auto) Coronavirus (PCR) 02/22/21 02/23/21 02/23/21 04:47 09:05 09:05 WBC 19.3 H RBC 5.29 H Hgb 15.2 H Hct 47.7 H D RDW Seg Neuts % (Manual) 82.0 H Lymphocytes % (Manual) 6.0 L Monocytes % (Manual) Seg Neutrophils # Man 15.8 H Lymphocytes # (Manual) Monocytes # (Manual) 1.0 H D-Dimer ABG pH ABG pO2 ABG HCO3 ABG O2 Saturation ABG Base Excess Oxyhemoglobin Sodium Potassium Chloride BUN 25 H 27 H Creatinine Glucose 125 H POC Glucose Lactic Acid Ferritin AST Lactate Dehydrogenase C-Reactive Protein NT-Pro-B Natriuret Pep Albumin 3.3 L Urine WBC (Auto) Coronavirus (PCR) 02/23/21 02/23/21 02/24/21 11:33 16:24 04:50 WBC 14.8 H RBC Hgb Hct RDW Seg Neuts % (Manual) Lymphocytes % (Manual) Monocytes % (Manual) Seg Neutrophils # Man Lymphocytes # (Manual) Monocytes # (Manual) D-Dimer ABG pH ABG pO2 ABG HCO3 ABG O2 Saturation ABG Base Excess Oxyhemoglobin Sodium Potassium Chloride BUN Creatinine Glucose POC Glucose 117 H 163 H Lactic Acid Ferritin AST Lactate Dehydrogenase C-Reactive Protein NT-Pro-B Natriuret Pep Albumin Urine WBC (Auto) Coronavirus (PCR) 02/24/21 02/25/21 02/27/21 04:50 21:12 04:57 WBC 17.0 H RBC Hgb Hct 43.4 H RDW Seg Neuts % (Manual) 84.0 H Lymphocytes % (Manual) 4.0 L Monocytes % (Manual) Seg Neutrophils # Man 14.3 H Lymphocytes # (Manual) 0.7 L Monocytes # (Manual) 0.9 H D-Dimer ABG pH ABG pO2 ABG HCO3 ABG O2 Saturation ABG Base Excess Oxyhemoglobin Sodium Potassium Chloride BUN 23 H Creatinine Glucose POC Glucose 175 H Lactic Acid Ferritin AST Lactate Dehydrogenase C-Reactive Protein NT-Pro-B Natriuret Pep Albumin Urine WBC (Auto) Coronavirus (PCR) 02/27/21 02/27/21 02/27/21 04:57 04:57 04:57 WBC RBC Hgb Hct RDW Seg Neuts % (Manual) Lymphocytes % (Manual) Monocytes % (Manual) Seg Neutrophils # Man Lymphocytes # (Manual) Monocytes # (Manual) D-Dimer 5013.37 H ABG pH ABG pO2 ABG HCO3 ABG O2 Saturation ABG Base Excess Oxyhemoglobin Sodium Potassium Chloride BUN 23 H Creatinine 0.5 L Glucose 113 H POC Glucose Lactic Acid Ferritin 1272.0 H AST Lactate Dehydrogenase 438 H C-Reactive Protein 5.80 H NT-Pro-B Natriuret Pep Albumin Urine WBC (Auto) Coronavirus (PCR) 02/27/21 02/27/21 02/28/21 17:53 21:12 07:40 WBC RBC Hgb Hct RDW Seg Neuts % (Manual) Lymphocytes % (Manual) Monocytes % (Manual) Seg Neutrophils # Man Lymphocytes # (Manual) Monocytes # (Manual) D-Dimer ABG pH ABG pO2 ABG HCO3 ABG O2 Saturation ABG Base Excess Oxyhemoglobin Sodium Potassium Chloride BUN Creatinine Glucose POC Glucose 159 H 112 H 123 H Lactic Acid Ferritin AST Lactate Dehydrogenase C-Reactive Protein NT-Pro-B Natriuret Pep Albumin Urine WBC (Auto) Coronavirus (PCR) 02/28/21 02/28/21 02/28/21 11:42 16:20 22:26 WBC RBC Hgb Hct RDW Seg Neuts % (Manual) Lymphocytes % (Manual) Monocytes % (Manual) Seg Neutrophils # Man Lymphocytes # (Manual) Monocytes # (Manual) D-Dimer ABG pH ABG pO2 ABG HCO3 ABG O2 Saturation ABG Base Excess Oxyhemoglobin Sodium Potassium Chloride BUN Creatinine Glucose POC Glucose 112 H 138 H 129 H Lactic Acid Ferritin AST Lactate Dehydrogenase C-Reactive Protein NT-Pro-B Natriuret Pep Albumin Urine WBC (Auto) Coronavirus (PCR) 03/01/21 03/01/21 03/01/21 05:12 05:12 05:12 WBC 15.0 H RBC 5.05 H Hgb Hct 44.7 H RDW Seg Neuts % (Manual) 71.0 H Lymphocytes % (Manual) 11.0 L Monocytes % (Manual) 12.0 H Seg Neutrophils # Man 10.7 H Lymphocytes # (Manual) Monocytes # (Manual) 1.8 H D-Dimer 3469.99 H ABG pH ABG pO2 ABG HCO3 ABG O2 Saturation ABG Base Excess Oxyhemoglobin Sodium Potassium Chloride 97.3 L BUN Creatinine 0.5 L Glucose 115 H POC Glucose Lactic Acid Ferritin AST Lactate Dehydrogenase 385 H C-Reactive Protein 11.20 H NT-Pro-B Natriuret Pep Albumin 2.8 L Urine WBC (Auto) Coronavirus (PCR) 03/01/21 03/01/21 03/01/21 05:12 07:30 11:42 WBC RBC Hgb Hct RDW Seg Neuts % (Manual) Lymphocytes % (Manual) Monocytes % (Manual) Seg Neutrophils # Man Lymphocytes # (Manual) Monocytes # (Manual) D-Dimer ABG pH ABG pO2 ABG HCO3 ABG O2 Saturation ABG Base Excess Oxyhemoglobin Sodium Potassium Chloride BUN Creatinine Glucose POC Glucose 130 H 143 H Lactic Acid Ferritin 1526.0 H AST Lactate Dehydrogenase C-Reactive Protein NT-Pro-B Natriuret Pep Albumin Urine WBC (Auto) Coronavirus (PCR) 03/01/21 03/01/21 03/01/21 15:28 17:53 21:16 WBC RBC Hgb Hct RDW Seg Neuts % (Manual) Lymphocytes % (Manual) Monocytes % (Manual) Seg Neutrophils # Man Lymphocytes # (Manual) Monocytes # (Manual) D-Dimer ABG pH ABG pO2 ABG HCO3 ABG O2 Saturation ABG Base Excess Oxyhemoglobin Sodium Potassium Chloride BUN Creatinine Glucose POC Glucose 138 H 120 H 157 H Lactic Acid Ferritin AST Lactate Dehydrogenase C-Reactive Protein NT-Pro-B Natriuret Pep Albumin Urine WBC (Auto) Coronavirus (PCR) 03/01/21 03/02/21 03/02/21 22:07 07:44 11:40 WBC RBC Hgb Hct RDW Seg Neuts % (Manual) Lymphocytes % (Manual) Monocytes % (Manual) Seg Neutrophils # Man Lymphocytes # (Manual) Monocytes # (Manual) D-Dimer ABG pH ABG pO2 35.9 L* ABG HCO3 31.2 H ABG O2 Saturation 68.0 L ABG Base Excess 6.1 H Oxyhemoglobin 66.1 L Sodium Potassium Chloride BUN Creatinine Glucose POC Glucose 125 H 203 H Lactic Acid Ferritin AST Lactate Dehydrogenase C-Reactive Protein NT-Pro-B Natriuret Pep Albumin Urine WBC (Auto) Coronavirus (PCR) 03/02/21 03/02/21 03/02/21 12:13 13:00 17:15 WBC RBC Hgb Hct RDW Seg Neuts % (Manual) Lymphocytes % (Manual) Monocytes % (Manual) Seg Neutrophils # Man Lymphocytes # (Manual) Monocytes # (Manual) D-Dimer ABG pH ABG pO2 36.0 L* ABG HCO3 29.5 H ABG O2 Saturation 68.7 L ABG Base Excess 4.7 H Oxyhemoglobin 66.8 L Sodium Potassium Chloride BUN Creatinine Glucose POC Glucose 130 H 126 H Lactic Acid Ferritin AST Lactate Dehydrogenase C-Reactive Protein NT-Pro-B Natriuret Pep Albumin Urine WBC (Auto) Coronavirus (PCR) 03/02/21 03/03/21 21:45 08:02 WBC RBC Hgb Hct RDW Seg Neuts % (Manual) Lymphocytes % (Manual) Monocytes % (Manual) Seg Neutrophils # Man Lymphocytes # (Manual) Monocytes # (Manual) D-Dimer ABG pH ABG pO2 ABG HCO3 ABG O2 Saturation ABG Base Excess Oxyhemoglobin Sodium Potassium Chloride BUN Creatinine Glucose POC Glucose 113 H 128 H Lactic Acid Ferritin AST Lactate Dehydrogenase C-Reactive Protein NT-Pro-B Natriuret Pep Albumin Urine WBC (Auto) Coronavirus (PCR)
[2021-03-03] MEDS: INSULIN LISPRO 100 UNIT/ML SUB-Q SCH ×4 (09:30→21:37)
[2021-03-03] MEDS: FUROSEMIDE 40 MG/4 ML INJ IV SCH (09:34)
[2021-03-03] MEDS: ENOXAPARIN 100 MG/1 ML INJ SUB-Q SCH ×2 (09:37→21:48)
[2021-03-03 10:55] LABS: Hematocrit 44.9 % (30.3-42.9); Hemoglobin 14.2 gm/dl (10.1-14.3); Mean Corpuscular HGB Conc 32 % (30-34); Mean Corpuscular Volume 90 fl (79-97); Platelet Count 435 K/mm3 (140-440); Red Blood Count 5.01 M/mm3 (3.65-5.03); Red Cell Distribution Width 15.1 % (13.2-15.2)
[2021-03-03 11:11] LABS: Alanine Aminotransferase 40 units/L (7-56); Albumin 3.2 g/dL (3.9-5); Blood Urea Nitrogen 23 mg/dL (7-17); Calcium 9.1 mg/dL (8.4-10.2); Hemolysis Index 17
[2021-03-03 11:14] LABS: BUN/Creatinine Ratio 38
[2021-03-03] MEDS: amLODIPine 10 MG TAB PO SCH (12:50)
[2021-03-03] MEDS: FAMOTIDINE 20 MG TAB PO SCH ×2 (12:51→21:38)
[2021-03-03] MEDS: SERTRALINE 50 MG TAB PO SCH (12:51)
[2021-03-03] MEDS: ASCORBIC ACID 500 MG TAB PO SCH ×2 (12:51→21:38)
[2021-03-03] MEDS: GABAPENTIN 400 MG CAP PO SCH ×2 (12:51→21:36)
[2021-03-03] MEDS: ZINC SULFATE 220 MG CAP PO SCH (12:51)
[2021-03-03] MEDS: CHOLECALCIFEROL (VIT D3) 5,000 UNIT TAB PO SCH (12:51)
[2021-03-03 12:57] LABS: ABG Base Excess 5.6 mmol/L (-2.0-3.0); ABG HCO3 31.5 mmol/L (20.0-26.0); ABG Methemoglobin 0.7 % (0.0-1.5); ABG Oxygen Saturation 82.5 % (95.0-99.0); ABG PH 7.409 pH Units (7.350-7.450); ABG PO2 47.7 mm Hg (80.0-90.0)
[2021-03-03 13:47] LABS: RBC Morphology Normal
[2021-03-03 13:49] LABS: Basophils % (Manual) 0 % (0.0-1.8); Platelet Estimate Consistent w Auto; Total Cells Counted 100
[2021-03-03] MEDS: INSULIN GLARGINE 100 UNITS/ML SUB-Q SCH (21:37)
--- NOTE | 2021-03-04 08:14 | Progress Note ---
Assessment and Plan Assessment and plan: Patient is 61 years old female with history of hypertension, diabetes and DVT currently on Eliquis. Patient brought to the emergency room via EMS from home for evaluation of shortness of breath cough and generalized weakness for the last 5 days. Patient stated that she tested positive for COVID-19 on February 10 and since then she has not been feeling well. EMS stated that patient initial oxygen saturation was 75% on room air improved to 86% on a nonrebreather. Patient stated that her daughter also tested positive. 02/19/2020 Patient on 50% Ventimask Covid positive Continue steroids May DC antibiotics Respiratory assessment and treatment 02/19: Patient still hypoxic, encourage prone positioning, Pulmonary and ID consult. Will obtain CTA chest to evaluate for PE. Continue steroid therapy and oxygen therapy wean as tolerated. Continuous pulse oximeter. Plan discussed with the patient. 02/20: Patient seen and examined, remains on NRBM. awaiting CT CHEST WITH ANGIO Ordered yesterday. Encourage proning the patient says she was not proned yesterday discussed with nursing staff. Continue steroid therapy and remdesivir. Patient was seen by ID and as documented by ID"She is a candidate for Actemra based on CRp and O2 requirements. unfortunately we have not been getting procalcitonin results. -ordered Actemra once (afebrile, white count only mildly elevated in the setting of steroids)" Discussed plan of care with the nurse. Also called to updated the patients sister listed as NOK but got voice mail 02/21: Continue steroids, remdesivir, patient received 1 dose of Actemra but unable to get the second dose due to availability. CTA showed dense consolidation but no effusion and no pulmonary embolism patient does have a lower extremity DVT. Eliquis continues at full dose of 5 mg twice daily we will continue to monitor closely. Prognosis is guarded counseling for compliance for 15 minutes. 02/22: Patient clinically not improving much of switch the patient to Lovenox. Prognosis remains guarded. Continue anticoagulation due to DVT still suspicious of pulmonary embolism as a result we will obtain echocardiogram and vascular consult per pulmonary request which I agree with. I will also transfer the patient to stepdown unit for closer monitoring. 02/23: Vascular input noted agree the patient has subsegmental bibasilar pulmonary embolism but not enough to warrant intervention. Does not feel that this is contributing majority to her hypoxia. Nevertheless we will switch patient from Eliquis to Lovenox. Continue current management with remdesivir 02/24: Patient seen and examined, remains on anticoagulation, continue remedsivir and steroids. prone as tolerated, will give additional lasix today. Guarded prognosis. 02/25 A&O x 3, C/O mild cough with mucoid expectorant. Denies CP or shortness of breath. Remains on HFNC. pulmonary note and lab results reviewed 02/26: AOX3, proning on encounter. Encouraged continued movement while in bed and with assistance of care staff. Remains on HFNC. Last day of decadron today. 02/27: Patient encouraged to continue proning and remain active. Discussed with PT to come work with patient to mobilize. Will d/w CM for termite exterminator helper placement solution. 02/28: Patient stated she would like to be a full code. Working with CM for LTAC placement. 03/01: Awaiting LTAC placement. Remains full code. Spoke with daughter Meghna who was updated on patient's case. 03/02: Sats in low 80s on hi lfow. Blood gas shows pao2 = 35.9. will start bipap, d/w IMCU RN who will notify RT. repeat abg in 1 hr. Poor prognosis. 03/03; Sats in low 90's on bipap. Repeat abg this AM demosntrates marginal improvement in PaO2. PCCM d/w daughter, patient and her daughter would like intubation should she continue to deteriorate. Prognosis remains poor. 03/04: (1) Acute respiratory failure with hypoxia Current Visit: Yes Status: Acute Plan to address problem: 2/2 covid PNA she is on HFNC at 40L and 100% Fio2 --> will place back on bipap. O2 sat 90% pulmonary following cont. Decadron - stop date 02/26 wean as tolerated (2) SIRS (systemic inflammatory response syndrome) Current Visit: Yes Status: Acute Plan to address problem: Clinical picture consistent with Sirs (3) Multifocal pneumonia Current Visit: Yes Status: Acute Plan to address problem: 2/2 covid 19 off Abx (4)COVID-19 virus infection Current Visit: Yes Status: Acute Plan to address problem: completed remdesivir cont. decadron - stop date 02/26 proning as tolerated (5) Hypertension Current Visit: Yes Status: Chronic Qualifiers: Hypertension type: primary hypertension Qualified Code(s): I10 - Essential (primary) hypertension Plan to address problem: Fair cont. present medications (6) T2DM (type 2 diabetes mellitus) Current Visit: Yes Status: Chronic Qualifiers: Diabetes mellitus snf insulin use: unspecified termite exterminator helper insulin use status Plan to address problem: Continue Metformin and ISS coverage (7) Hypernatremia resolved (8) DVT LOWER EXT- RIGHT / and sub segmental PE cont. therapeutic lovenox (9) DVT prophylaxis Current Visit: Yes Status: Acute CODE STATUS: Full Code The high probability of a clinically significant, sudden or life threatening deterioration of the [pulmonary] system(s) required my full and direct attention, intervention and personal management. The aggregate critical care time was [60] minutes. This time is in addition to time spent performing reported procedures but includes the following: [X] Data Review and interpretation [X] Patient assessment and monitoring of vital signs [X] Documentation [X] Medication orders and management Hospitalist Physical - Physical exam Narrative exam: Physical Exam: Constitutional: Alert, cooperative. Mild resp distress Head, Ears, Nose: Normocephalic, atraumatic. External ears, nose normal Eyes: Conjunctivae/corneas clear. No icterus. No ptosis. Neck: Supple, no meningeal signs Oral: Deferred due to COVID-19 Cardiovascular: S1, S2 + Respiratory: AE fair bilaterally GI: Soft, non-tender; bowel sounds normal. No peritoneal signs Musculoskeletal: No pedal edema, no cyanosis. Skin: No rash or abscess Hem/Lymphatic: No palpable cervical or supraclavicular nodes. No lymphangitis Psych: No agitation Neurological: Awake, alert - Constitutional Vitals: Temp Pulse Resp BP Pulse Ox 99.2 F 99 H 21 111/60 94 03/04/21 07:39 03/04/21 06:00 03/04/21 06:00 03/04/21 06:00 03/04/21 06:00 General appearance: Present: no acute distress, well-nourished Results - Labs CBC & Chem 7: 03/03/21 10:05 03/03/21 10:05 Labs: Laboratory Last Values WBC 19.2 K/mm3 (4.5-11.0) H 03/03/21 10:05 RBC 5.01 M/mm3 (3.65-5.03) 03/03/21 10:05 Hgb 14.2 gm/dl (10.1-14.3) 03/03/21 10:05 Hct 44.9 % (30.3-42.9) H 03/03/21 10:05 MCV 90 fl (79-97) 03/03/21 10:05 MCH 28 pg (28-32) 03/03/21 10:05 MCHC 32 % (30-34) 03/03/21 10:05 RDW 15.1 % (13.2-15.2) 03/03/21 10:05 Plt Count 435 K/mm3 (140-440) 03/03/21 10:05 Add Manual Diff Complete 03/03/21 10:05 Total Counted 100 03/03/21 10:05 Seg Neuts % (Manual) 85.0 % (40.0-70.0) H 03/03/21 10:05 Band Neutrophils % 0 % 03/03/21 10:05 Lymphocytes % (Manual) 7.0 % (13.4-35.0) L 03/03/21 10:05 Reactive Lymphs % (Man) 0 % 03/03/21 10:05 Monocytes % (Manual) 6.0 % (0.0-7.3) 03/03/21 10:05 Eosinophils % (Manual) 2.0 % (0.0-4.3) 03/03/21 10:05 Basophils % (Manual) 0 % (0.0-1.8) 03/03/21 10:05 Metamyelocytes % 0 % 03/03/21 10:05 Myelocytes % 0 % 03/03/21 10:05 Promyelocytes % 0 % 03/03/21 10:05 Blast Cells % 0 % 03/03/21 10:05 Nucleated RBC % Not Reportable 03/03/21 10:05 Seg Neutrophils # Man 16.3 K/mm3 (1.8-7.7) H 03/03/21 10:05 Band Neutrophils # 0.0 K/mm3 03/03/21 10:05 Lymphocytes # (Manual) 1.3 K/mm3 (1.2-5.4) 03/03/21 10:05 Abs React Lymphs (Man) 0.0 K/mm3 03/03/21 10:05 Monocytes # (Manual) 1.2 K/mm3 (0.0-0.8) H 03/03/21 10:05 Eosinophils # (Manual) 0.4 K/mm3 (0.0-0.4) 03/03/21 10:05 Basophils # (Manual) 0.0 K/mm3 (0.0-0.1) 03/03/21 10:05 Metamyelocytes # 0.0 K/mm3 03/03/21 10:05 Myelocytes # 0.0 K/mm3 03/03/21 10:05 Promyelocytes # 0.0 K/mm3 03/03/21 10:05 Blast Cells # 0.0 K/mm3 03/03/21 10:05 WBC Morphology Not Reportable 03/03/21 10:05 Hypersegmented Neuts Not Reportable 03/03/21 10:05 Hyposegmented Neuts Not Reportable 03/03/21 10:05 Hypogranular Neuts Not Reportable 03/03/21 10:05 Smudge Cells Not Reportable 03/03/21 10:05 Toxic Granulation Not Reportable 03/03/21 10:05 Toxic Vacuolation Not Reportable 03/03/21 10:05 Dohle Bodies Not Reportable 03/03/21 10:05 Pelger-Huet Anomaly Not Reportable 03/03/21 10:05 Cindy Rods Not Reportable 03/03/21 10:05 Platelet Estimate Consistent w auto 03/03/21 10:05 Clumped Platelets Not Reportable 03/03/21 10:05 Plt Clumps, EDTA Not Reportable 03/03/21 10:05 Large Platelets Not Reportable 03/03/21 10:05 Giant Platelets Not Reportable 03/03/21 10:05 Platelet Satelliting Not Reportable 03/03/21 10:05 Plt Morphology Comment Not Reportable 03/03/21 10:05 RBC Morphology Normal 03/03/21 10:05 Dimorphic RBCs Not Reportable 03/03/21 10:05 Polychromasia Not Reportable 03/03/21 10:05 Hypochromasia Not Reportable 03/03/21 10:05 Poikilocytosis Not Reportable 03/03/21 10:05 Anisocytosis Not Reportable 03/03/21 10:05 Microcytosis Not Reportable 03/03/21 10:05 Macrocytosis Not Reportable 03/03/21 10:05 Spherocytes Not Reportable 03/03/21 10:05 Pappenheimer Bodies Not Reportable 03/03/21 10:05 Sickle Cells Not Reportable 03/03/21 10:05 Target Cells Not Reportable 03/03/21 10:05 Tear Drop Cells Not Reportable 03/03/21 10:05 Ovalocytes Not Reportable 03/03/21 10:05 Helmet Cells Not Reportable 03/03/21 10:05 [place] Bodies Not Reportable 03/03/21 10:05 [place] Rings Not Reportable 03/03/21 10:05 [place] Cells Not Reportable 03/03/21 10:05 Bite Cells Not Reportable 03/03/21 10:05 Crenated Cell Not Reportable 03/03/21 10:05 Elliptocytes Not Reportable 03/03/21 10:05 Acanthocytes (Spur) Not Reportable 03/03/21 10:05 Rouleaux Not Reportable 03/03/21 10:05 Hemoglobin C Crystals Not Reportable 03/03/21 10:05 Schistocytes Not Reportable 03/03/21 10:05 Malaria parasites Not Reportable 03/03/21 10:05 [place] Bodies Not Reportable 03/03/21 10:05 Hem Pathologist Commnt No 03/03/21 10:05 PT 13.9 Sec. (12.2-14.9) 02/17/21 14:34 INR 0.96 (0.87-1.13) 02/17/21 14:34 APTT 26.4 Sec. (24.2-36.6) 02/17/21 14:34 D-Dimer 3469.99 ng/mlDDU (0-234) H 03/01/21 05:12 ABG pH 7.409 pH Units (7.350-7.450) 03/03/21 12:45 ABG pCO2 51.0 mm Hg 03/03/21 12:45 ABG pO2 47.7 mm Hg (80.0-90.0) L 03/03/21 12:45 ABG HCO3 31.5 mmol/L (20.0-26.0) H 03/03/21 12:45 ABG O2 Saturation 82.5 % (95.0-99.0) L 03/03/21 12:45 ABG O2 Content 16.5 (0.0-44) 03/03/21 12:45 ABG Base Excess 5.6 mmol/L (-2.0-3.0) H 03/03/21 12:45 ABG Hemoglobin 14.7 gm/dl (12.0-16.0) 03/03/21 12:45 ABG Carboxyhemoglobin 1.7 % (0.0-5.0) 03/03/21 12:45 ABG Methemoglobin 0.7 % (0.0-1.5) 03/03/21 12:45 Oxyhemoglobin 80.4 % (95.0-99.0) L 03/03/21 12:45 FiO2 100 % 03/03/21 12:45 Sodium 142 mmol/L (137-145) 03/03/21 10:05 Potassium 3.9 mmol/L (3.6-5.0) 03/03/21 10:05 Chloride 97.8 mmol/L (98-107) L 03/03/21 10:05 Carbon Dioxide 27 mmol/L (22-30) 03/03/21 10:05 Anion Gap 21 mmol/L 03/03/21 10:05 BUN 23 mg/dL (7-17) H 03/03/21 10:05 Creatinine 0.6 mg/dL (0.6-1.2) 03/03/21 10:05 Estimated GFR > 60 ml/min 03/03/21 10:05 BUN/Creatinine Ratio 38 % 03/03/21 10:05 Glucose 141 mg/dL (65-100) H 03/03/21 10:05 POC Glucose 126 mg/dL (70-105) H 03/04/21 07:24 Lactic Acid 1.60 mmol/L (0.7-2.0) 02/17/21 18:39 Calcium 9.1 mg/dL (8.4-10.2) 03/03/21 10:05 Phosphorus 4.00 mg/dL (2.5-4.5) 02/28/21 18:41 Magnesium 2.00 mg/dL (1.7-2.3) 02/28/21 18:41 Ferritin 1526.0 ng/mL (10.0-200.0) H 03/01/21 05:12 Total Bilirubin 0.40 mg/dL (0.1-1.2) 03/03/21 10:05 Direct Bilirubin < 0.2 mg/dL (0-0.2) 02/17/21 14:34 Indirect Bilirubin 0.1 mg/dL 02/17/21 14:34 AST 40 units/L (5-40) 03/03/21 10:05 ALT 40 units/L (7-56) 03/03/21 10:05 Alkaline Phosphatase 86 units/L (35-129) 03/03/21 10:05 Lactate Dehydrogenase 385 units/L (91-180) H 03/01/21 05:12 C-Reactive Protein 11.20 mg/dL (0.00-1.30) H 03/01/21 05:12 NT-Pro-B Natriuret Pep 86.77 pg/mL (0-900) 02/20/21 16:34 Total Protein 7.9 g/dL (6.3-8.2) 03/03/21 10:05 Albumin 3.2 g/dL (3.9-5) L 03/03/21 10:05 Albumin/Globulin Ratio 0.7 % 03/03/21 10:05 Procalcitonin 0.11 ng/mL (<0.15) 02/19/21 07:32 Urine Color Cassandra (Yellow) 02/18/21 Unknown Urine Turbidity Cloudy (Clear) 02/18/21 Unknown Urine pH 5.0 (5.0-7.0) 02/18/21 Unknown Ur Specific [place] 1.027 (1.003-1.030) 02/18/21 Unknown Urine Protein 100 mg/dl mg/dL (Negative) 02/18/21 Unknown Urine Glucose (UA) Neg mg/dL (Negative) 02/18/21 Unknown Urine Ketones Neg mg/dL (Negative) 02/18/21 Unknown Urine Blood Neg (Negative) 02/18/21 Unknown Urine Nitrite Neg (Negative) 02/18/21 Unknown Urine Bilirubin Neg (Negative) 02/18/21 Unknown Urine Urobilinogen < 2.0 mg/dL (<2.0) 02/18/21 Unknown Ur Leukocyte Esterase Neg (Negative) 02/18/21 Unknown Urine WBC (Auto) 7.0 /HPF (0.0-6.0) H 02/18/21 Unknown Urine RBC (Auto) 4.0 /HPF (0.0-6.0) 02/18/21 Unknown U Epithel Cells (Auto) 3.0 /HPF (0-13.0) 02/18/21 Unknown Urine Mucus 2+ /HPF 02/18/21 Unknown Coronavirus (PCR) Positive (Negative) A 02/18/21 Unknown Head/IV: Voiding Method External Female Catheter Active Medications - Current Medications Current Medications: Generic Name Dose Route Start Last Admin Trade Name Freq PRN Reason Stop Dose Admin Acetaminophen 650 mg 02/17/21 23:58 03/02/21 09:45 Acetaminophen 325 Mg Tab PO 650 mg Q4H PRN Administration Pain MILD(1-3)/Fever >100.5/BROWN Amlodipine Besylate 10 mg 02/19/21 10:00 03/03/21 12:50 Amlodipine 10 Mg Tab PO Not Given DAILY [facility] Ascorbic Acid 1,000 mg 02/19/21 10:00 03/03/21 21:38 Ascorbic Acid 500 Mg Tab PO Not Given BID [facility] Cholecalciferol 5,000 unit 02/19/21 10:00 03/03/21 12:51 Cholecalciferol (Vit D3) 5,000 Unit Tab PO Not Given DAILY [facility] Dextrose 50 ml 02/27/21 11:30 Dextrose 50% In Water (25gm) 50 Ml Syringe IV Q30MIN PRN Hypoglycemia Protocol Enoxaparin Sodium 90 mg 02/22/21 10:00 03/03/21 21:48 Enoxaparin 100 Mg/1 Ml Inj 1 mg/kg (90 mg) 90 mg SUB-Q Administration Q12HR [facility] Protocol Famotidine 20 mg 02/18/21 10:00 03/03/21 21:38 Famotidine 20 Mg Tab PO Not Given BID DEISY Furosemide 40 mg 02/18/21 08:00 03/03/21 09:34 Furosemide 40 Mg/4 Ml Inj IV 40 mg 0800 DEISY Administration Gabapentin 400 mg 02/19/21 04:00 03/03/21 21:36 Gabapentin 400 Mg Cap PO Not Given BID DEISY Hydromorphone HCl 0.5 mg 02/17/21 23:58 Hydromorphone 1 Mg/1 Ml Inj IV Q3H PRN Pain , Severe (7-10) Insulin Glargine 10 units 03/02/21 22:00 03/03/21 21:37 Insulin Glargine 100 Units/Ml SUB-Q Not Given QHS [facility] Insulin Human Lispro 0 unit 02/27/21 11:30 03/03/21 21:37 Insulin Lispro 100 Unit/Ml SUB-Q 2 unit ACHS [facility] Administration Protocol Ondansetron HCl 4 mg 02/17/21 23:58 Ondansetron 4 Mg/2 Ml Inj IV Q8H PRN Nausea And Vomiting Oxycodone/Acetaminophen 1 tab 02/17/21 23:58 02/27/21 04:22 Oxycodone /Acetaminophen 5-325mg Tab PO 1 tab Q6H PRN Administration Pain, Moderate (4-6) Sertraline HCl 50 mg 02/19/21 10:00 03/03/21 12:51 Sertraline 50 Mg Tab PO Not Given QDAY [facility] Sodium Chloride 10 ml 02/18/21 10:00 03/03/21 21:38 Sodium Chloride 0.9% 10 Ml Flush Syringe IV 10 ml BID DEISY Administration Sodium Chloride 10 ml 02/17/21 23:58 Sodium Chloride 0.9% 10 Ml Flush Syringe IV PRN PRN LINE FLUSH Zinc Sulfate 220 mg 02/19/21 10:00 03/03/21 12:51 Zinc Sulfate 220 Mg Cap PO Not Given QDAY [facility] Nutrition/Malnutrition Assess - Dietary Evaluation Nutrition/Malnutrition Findings: Nutrition Notes Start: 02/25/21 16:10 Freq: Status: Active Protocol: Document 02/25/21 16:10 ALEC (Rec: 02/25/21 16:47 ALEC [id number]) Nutrition Notes Need for Assessment generated from: LOS Initial or Follow up Assessment Current Diagnosis Diabetes,Hypertension, Respiratory Failure Other Pertinent Diagnosis COVID-19 pneumonia, SIRS. Current Diet Cardiac Diet (since B 02/18). Labs/Tests 02/24" BUN 23. Pertinent Medications 02/25: Vit C, Vit D3, ZnSO4, others nutritionally unremarkable. Height 5 ft 6 in Weight 86.183 kg [place] Body Weight (kg) 59.09 BMI 30.7 Intake Prior to Admission Good Weight change and time frame None, according to admission report. Weight Status Obese Subjective/Other Information RD consult for LOS assessment. Pt on NIV/Bi-Pap+. No report available on Pt's % PO intake of meals at the time . F/U on PO intake of meals assessment. Percent of energy/protein needs met: Prescribed Cardiac Diet provides for energy/protein needs (2,230 Kcal/85 g) during LOS. Burn Absent Trauma Absent GI Symptoms None Food Allergy No Skin Integrity/Comment Clear, warm, dry. Minimum of two criteria No Is patient on ventilator? No Is Patient Ambulatory and/or Out of Bed Yes REE-([place]-St. Jeor-ambulatory/OOB) [ 1876.654 NUTR.[id number]] Kcal/Kg value to use for calculation 13 Approximate Energy Requirements Using 1120 kcal/Kg Calculation Used for Recommendations Kcal/kg Additional Notes Protein: >2 g/Kg; >118 g/day. Fluids: 1 ml/Kcal, or as per MD. Nutrition Intervention Change Diet Order: Continue Cardiac Diet. Follow-Up By: 03/04/21 Additional Comments Continue monitoring food tolerance, %PO intake of meals , and BM.
--- NOTE | 2021-03-04 09:24 | XRay Report ---
CHEST 1 VIEW INDICATION: interstitial infiltrate. COMPARISON: 03/01/2021 FINDINGS: Support devices: None. Heart: Within normal limits. Lungs/Pleura: There is better inspiration. Bilateral congestive changes or interstitial infiltrates a ppear decreased by 25-50%. No large pleural effusion or pneumothorax. Additional findings: None. IMPRESSION: Mild improvement in the bilateral congestive changes or interstitial infiltrates. Signer Name: Willie Garcia Jr, MD Signed: 03/04/2021 9:20 AM Workstation Name: [id number]
[2021-03-04] MEDS: GABAPENTIN 400 MG CAP PO SCH ×2 (10:30→23:37)
[2021-03-04] MEDS: ENOXAPARIN 100 MG/1 ML INJ SUB-Q SCH ×2 (10:30→23:40)
[2021-03-04] MEDS: FUROSEMIDE 40 MG/4 ML INJ IV SCH (10:30)
[2021-03-04] MEDS: SERTRALINE 50 MG TAB PO SCH (10:30)
[2021-03-04] MEDS: ZINC SULFATE 220 MG CAP PO SCH (10:30)
[2021-03-04] MEDS: ASCORBIC ACID 500 MG TAB PO SCH ×2 (10:30→23:38)
[2021-03-04] MEDS: amLODIPine 10 MG TAB PO SCH (10:31)
[2021-03-04] MEDS: FAMOTIDINE 20 MG TAB PO SCH ×2 (10:31→23:38)
[2021-03-04] MEDS: INSULIN LISPRO 100 UNIT/ML SUB-Q SCH ×3 (10:31→23:39)
[2021-03-04] MEDS: CHOLECALCIFEROL (VIT D3) 5,000 UNIT TAB PO SCH (10:31)
--- NOTE | 2021-03-04 11:21 | Progress Note ---
Assessment and Plan 61 y/o female with acute respiratory failure secondary to COVID 19 pneumonia. 03/04/21: Continue supportive care between HFNC and bipap therapy. Steroids. Positive reinforcement. 03/03/21: Long discussion at bedside with patient. Today she stated that she did not want to be intubated. I attempted to call her daughter while I was in the room with the patient but no answer. She will remain full code as she has said this in the past and then revoked after speaking with the daughter ( which is why i called her again this morning). Continue bipap and monitor. Guarded prognosis. 03/02/21: Prone if able. Continue steroids. Negative fluid balance if possible. Prognosis remains very guarded 02/28/21: Prone. Steroids. Net negative fluid balance if possible. Guarded prognosis. 02/27/21: Full code status. Prone as much as possible during the day and sleep prone at night. Patient may require intubation ultimately. Guarded prognosis. 02/26/21: Prone if possible. Continue anticoagulation for DVT. Steroids. Net negative fluid balance. 02/25/21: Long discussion at bedside with patient, whom per her, she has discu ssed this with her daughter. She does no want an endotracheal tube. She does not want chest compression and she does not want shocks. I did not ask about vasopressors. The patient is awake and alert and oriented. This needs to be addressed by primary team as well an if confirmed, I have no problem with cosigning AND order. Continue supportive measures for now. Guarded to poor prognosis. 02/21/21: BNP normal. Still would attempt to achieve net negative fluid balance daily. Continue Remdesivir and steroids. Prone if patient willing. Follow up CTA results. Discussed with IMS, may change anticoagulation but awaiting official ready on CTA. Guareded prognosis. 02/20/21: Follow up CTA results. Will send BNP. Continue steroids and Remdesivir. Guarded prognosis. Prone if able, very pertinent to do this. 1. self proning as tolerated during the day and prone at night while sleeping 2. Steroids and Remdesivir 3. Daily net negative volume state 4. Consider checking BNP and echo to make sure no edema on this film 5. Agree with empiric anticoagulation given elevated D-Dimer Guarded prognosis. Will continue to follow. Subjective Date of service: 03/04/21 Principal diagnosis: COVID pneumonia Interval history: Stable on HFNC alternating with bipap. Improved yesterday so did not have to intubate. Objective Vital Signs - 12hr 03/03/21 03/03/21 03/04/21 23:21 23:31 00:00 Temperature 98.6 F Pulse Rate 104 H 103 H 101 H Pulse Rate [ 94 H From Monitor] Respiratory 26 H 22 23 Rate Blood Pressure 112/80 112/80 128/93 O2 Sat by Pulse 96 97 98 Oximetry 03/04/21 03/04/21 03/04/21 00:11 00:31 01:00 Temperature Pulse Rate 102 H 108 H 102 H Pulse Rate [ From Monitor] Respiratory 22 32 H 26 H Rate Blood Pressure 112/80 128/93 95/68 O2 Sat by Pulse 98 92 97 Oximetry 03/04/21 03/04/21 03/04/21 01:31 02:00 02:31 Temperature Pulse Rate 101 H 106 H 105 H Pulse Rate [ From Monitor] Respiratory 25 H 28 H 32 H Rate Blood Pressure 95/68 116/82 116/82 O2 Sat by Pulse 96 93 95 Oximetry 03/04/21 03/04/21 03/04/21 03:00 03:31 03:47 Temperature 98.4 F Pulse Rate 102 H 109 H Pulse Rate [ From Monitor] Respiratory 25 H 28 H Rate Blood Pressure 134/72 134/72 O2 Sat by Pulse 96 92 Oximetry 03/04/21 03/04/21 03/04/21 03:58 04:00 04:31 Temperature Pulse Rate 109 H 104 H 103 H Pulse Rate [ 94 H From Monitor] Respiratory 32 H 25 H 22 Rate Blood Pressure 134/72 134/77 134/77 O2 Sat by Pulse 93 96 95 Oximetry 03/04/21 03/04/21 03/04/21 05:00 05:30 06:00 Temperature Pulse Rate 105 H 108 H 99 H Pulse Rate [ From Monitor] Respiratory 20 31 H 21 Rate Blood Pressure 111/60 111/60 111/60 O2 Sat by Pulse 95 95 94 Oximetry 03/04/21 03/04/21 03/04/21 07:39 08:00 09:01 Temperature 99.2 F Pulse Rate 109 H Pulse Rate [ From Monitor] Respiratory 31 H Rate Blood Pressure 97/67 O2 Sat by Pulse 93 94 Oximetry 03/04/21 03/04/21 10:20 10:31 Temperature Pulse Rate 100 H Pulse Rate [ From Monitor] Respiratory Rate Blood Pressure 118/85 O2 Sat by Pulse 94 Oximetry Constitutional: alert, other (on hiflo) ENT: oropharynx moist Neck: supple Ascultation: Bilateral: diminished breath sounds Cardiovascular: regular rate and rhythm Gastrointestinal: normoactive bowel sounds, soft, non-tender, non-distended Integumentary: normal Extremities: no cyanosis CBC and BMP: 03/03/21 10:05 03/03/21 10:05 ABG, PT/INR, D-dimer: ABG ABG pH 7.409 pH Units (7.350-7.450) 03/03/21 12:45 ABG pCO2 51.0 mm Hg 03/03/21 12:45 ABG pO2 47.7 mm Hg (80.0-90.0) L 03/03/21 12:45 ABG O2 Saturation 82.5 % (95.0-99.0) L 03/03/21 12:45 PT/INR, D-dimer PT 13.9 Sec. (12.2-14.9) 02/17/21 14:34 INR 0.96 (0.87-1.13) 02/17/21 14:34 D-Dimer 3469.99 ng/mlDDU (0-234) H 03/01/21 05:12 Abnormal lab findings: Abnormal Labs 02/17/21 02/17/21 02/17/21 14:34 14:34 14:34 WBC 11.7 H RBC Hgb Hct 44.9 H RDW 15.6 H Seg Neuts % (Manual) Lymphocytes % (Manual) 9.0 L Monocytes % (Manual) 12.0 H Seg Neutrophils # Man 8.2 H Lymphocytes # (Manual) 1.1 L Monocytes # (Manual) 1.4 H D-Dimer ABG pH ABG pO2 ABG HCO3 ABG O2 Saturation ABG Base Excess Oxyhemoglobin Sodium Potassium 3.5 L Chloride BUN 27 H Creatinine Glucose 150 H POC Glucose Lactic Acid 2.90 H* Ferritin AST Lactate Dehydrogenase C-Reactive Protein NT-Pro-B Natriuret Pep Albumin Urine WBC (Auto) Coronavirus (PCR) 02/17/21 02/18/21 02/18/21 14:34 07:48 07:48 WBC 12.0 H RBC Hgb Hct RDW 15.4 H Seg Neuts % (Manual) 76.0 H Lymphocytes % (Manual) Monocytes % (Manual) Seg Neutrophils # Man 9.1 H Lymphocytes # (Manual) Monocytes # (Manual) D-Dimer ABG pH ABG pO2 ABG HCO3 ABG O2 Saturation ABG Base Excess Oxyhemoglobin Sodium Potassium Chloride BUN 36 H Creatinine Glucose 133 H POC Glucose Lactic Acid Ferritin AST 57 H Lactate Dehydrogenase C-Reactive Protein NT-Pro-B Natriuret Pep 1619 H Albumin 3.3 L Urine WBC (Auto) Coronavirus (PCR) 02/18/21 02/18/21 02/19/21 Unknown Unknown 07:32 WBC RBC Hgb Hct RDW Seg Neuts % (Manual) Lymphocytes % (Manual) Monocytes % (Manual) Seg Neutrophils # Man Lymphocytes # (Manual) Monocytes # (Manual) D-Dimer ABG pH ABG pO2 ABG HCO3 ABG O2 Saturation ABG Base Excess Oxyhemoglobin Sodium 148 H D Potassium Chloride BUN 41 H Creatinine Glucose 123 H POC Glucose Lactic Acid Ferritin AST 57 H Lactate Dehydrogenase C-Reactive Protein NT-Pro-B Natriuret Pep Albumin 3.7 L Urine WBC (Auto) 7.0 H Coronavirus (PCR) Positive A 02/19/21 02/19/21 02/20/21 07:32 08:43 05:00 WBC RBC Hgb Hct RDW Seg Neuts % (Manual) Lymphocytes % (Manual) Monocytes % (Manual) Seg Neutrophils # Man Lymphocytes # (Manual) Monocytes # (Manual) D-Dimer > 81106 H ABG pH ABG pO2 ABG HCO3 ABG O2 Saturation ABG Base Excess Oxyhemoglobin Sodium 147 H Potassium Chloride 107.6 H BUN 36 H Creatinine Glucose POC Glucose Lactic Acid Ferritin AST Lactate Dehydrogenase C-Reactive Protein 10.90 H NT-Pro-B Natriuret Pep Albumin 3.3 L Urine WBC (Auto) Coronavirus (PCR) 02/20/21 02/21/21 02/21/21 18:46 04:44 04:44 WBC 16.7 H RBC Hgb Hct RDW Seg Neuts % (Manual) Lymphocytes % (Manual) Monocytes % (Manual) Seg Neutrophils # Man Lymphocytes # (Manual) Monocytes # (Manual) D-Dimer ABG pH 7.453 H ABG pO2 55.0 L ABG HCO3 26.6 H ABG O2 Saturation 88.3 L ABG Base Excess Oxyhemoglobin 86.8 L Sodium Potassium Chloride BUN 26 H Creatinine Glucose 111 H POC Glucose Lactic Acid Ferritin AST Lactate Dehydrogenase C-Reactive Protein NT-Pro-B Natriuret Pep Albumin 3.4 L Urine WBC (Auto) Coronavirus (PCR) 02/22/21 02/23/21 02/23/21 04:47 09:05 09:05 WBC 19.3 H RBC 5.29 H Hgb 15.2 H Hct 47.7 H D RDW Seg Neuts % (Manual) 82.0 H Lymphocytes % (Manual) 6.0 L Monocytes % (Manual) Seg Neutrophils # Man 15.8 H Lymphocytes # (Manual) Monocytes # (Manual) 1.0 H D-Dimer ABG pH ABG pO2 ABG HCO3 ABG O2 Saturation ABG Base Excess Oxyhemoglobin Sodium Potassium Chloride BUN 25 H 27 H Creatinine Glucose 125 H POC Glucose Lactic Acid Ferritin AST Lactate Dehydrogenase C-Reactive Protein NT-Pro-B Natriuret Pep Albumin 3.3 L Urine WBC (Auto) Coronavirus (PCR) 02/23/21 02/23/21 02/24/21 11:33 16:24 04:50 WBC 14.8 H RBC Hgb Hct RDW Seg Neuts % (Manual) Lymphocytes % (Manual) Monocytes % (Manual) Seg Neutrophils # Man Lymphocytes # (Manual) Monocytes # (Manual) D-Dimer ABG pH ABG pO2 ABG HCO3 ABG O2 Saturation ABG Base Excess Oxyhemoglobin Sodium Potassium Chloride BUN Creatinine Glucose POC Glucose 117 H 163 H Lactic Acid Ferritin AST Lactate Dehydrogenase C-Reactive Protein NT-Pro-B Natriuret Pep Albumin Urine WBC (Auto) Coronavirus (PCR) 02/24/21 02/25/21 02/27/21 04:50 21:12 04:57 WBC 17.0 H RBC Hgb Hct 43.4 H RDW Seg Neuts % (Manual) 84.0 H Lymphocytes % (Manual) 4.0 L Monocytes % (Manual) Seg Neutrophils # Man 14.3 H Lymphocytes # (Manual) 0.7 L Monocytes # (Manual) 0.9 H D-Dimer ABG pH ABG pO2 ABG HCO3 ABG O2 Saturation ABG Base Excess Oxyhemoglobin Sodium Potassium Chloride BUN 23 H Creatinine Glucose POC Glucose 175 H Lactic Acid Ferritin AST Lactate Dehydrogenase C-Reactive Protein NT-Pro-B Natriuret Pep Albumin Urine WBC (Auto) Coronavirus (PCR) 02/27/21 02/27/21 02/27/21 04:57 04:57 04:57 WBC RBC Hgb Hct RDW Seg Neuts % (Manual) Lymphocytes % (Manual) Monocytes % (Manual) Seg Neutrophils # Man Lymphocytes # (Manual) Monocytes # (Manual) D-Dimer 5013.37 H ABG pH ABG pO2 ABG HCO3 ABG O2 Saturation ABG Base Excess Oxyhemoglobin Sodium Potassium Chloride BUN 23 H Creatinine 0.5 L Glucose 113 H POC Glucose Lactic Acid Ferritin 1272.0 H AST Lactate Dehydrogenase 438 H C-Reactive Protein 5.80 H NT-Pro-B Natriuret Pep Albumin Urine WBC (Auto) Coronavirus (PCR) 02/27/21 02/27/21 02/28/21 17:53 21:12 07:40 WBC RBC Hgb Hct RDW Seg Neuts % (Manual) Lymphocytes % (Manual) Monocytes % (Manual) Seg Neutrophils # Man Lymphocytes # (Manual) Monocytes # (Manual) D-Dimer ABG pH ABG pO2 ABG HCO3 ABG O2 Saturation ABG Base Excess Oxyhemoglobin Sodium Potassium Chloride BUN Creatinine Glucose POC Glucose 159 H 112 H 123 H Lactic Acid Ferritin AST Lactate Dehydrogenase C-Reactive Protein NT-Pro-B Natriuret Pep Albumin Urine WBC (Auto) Coronavirus (PCR) 02/28/21 02/28/21 02/28/21 11:42 16:20 22:26 WBC RBC Hgb Hct RDW Seg Neuts % (Manual) Lymphocytes % (Manual) Monocytes % (Manual) Seg Neutrophils # Man Lymphocytes # (Manual) Monocytes # (Manual) D-Dimer ABG pH ABG pO2 ABG HCO3 ABG O2 Saturation ABG Base Excess Oxyhemoglobin Sodium Potassium Chloride BUN Creatinine Glucose POC Glucose 112 H 138 H 129 H Lactic Acid Ferritin AST Lactate Dehydrogenase C-Reactive Protein NT-Pro-B Natriuret Pep Albumin Urine WBC (Auto) Coronavirus (PCR) 03/01/21 03/01/21 03/01/21 05:12 05:12 05:12 WBC 15.0 H RBC 5.05 H Hgb Hct 44.7 H RDW Seg Neuts % (Manual) 71.0 H Lymphocytes % (Manual) 11.0 L Monocytes % (Manual) 12.0 H Seg Neutrophils # Man 10.7 H Lymphocytes # (Manual) Monocytes # (Manual) 1.8 H D-Dimer 3469.99 H ABG pH ABG pO2 ABG HCO3 ABG O2 Saturation ABG Base Excess Oxyhemoglobin Sodium Potassium Chloride 97.3 L BUN Creatinine 0.5 L Glucose 115 H POC Glucose Lactic Acid Ferritin AST Lactate Dehydrogenase 385 H C-Reactive Protein 11.20 H NT-Pro-B Natriuret Pep Albumin 2.8 L Urine WBC (Auto) Coronavirus (PCR) 03/01/21 03/01/21 03/01/21 05:12 07:30 11:42 WBC RBC Hgb Hct RDW Seg Neuts % (Manual) Lymphocytes % (Manual) Monocytes % (Manual) Seg Neutrophils # Man Lymphocytes # (Manual) Monocytes # (Manual) D-Dimer ABG pH ABG pO2 ABG HCO3 ABG O2 Saturation ABG Base Excess Oxyhemoglobin Sodium Potassium Chloride BUN Creatinine Glucose POC Glucose 130 H 143 H Lactic Acid Ferritin 1526.0 H AST Lactate Dehydrogenase C-Reactive Protein NT-Pro-B Natriuret Pep Albumin Urine WBC (Auto) Coronavirus (PCR) 03/01/21 03/01/21 03/01/21 15:28 17:53 21:16 WBC RBC Hgb Hct RDW Seg Neuts % (Manual) Lymphocytes % (Manual) Monocytes % (Manual) Seg Neutrophils # Man Lymphocytes # (Manual) Monocytes # (Manual) D-Dimer ABG pH ABG pO2 ABG HCO3 ABG O2 Saturation ABG Base Excess Oxyhemoglobin Sodium Potassium Chloride BUN Creatinine Glucose POC Glucose 138 H 120 H 157 H Lactic Acid Ferritin AST Lactate Dehydrogenase C-Reactive Protein NT-Pro-B Natriuret Pep Albumin Urine WBC (Auto) Coronavirus (PCR) 03/01/21 03/02/21 03/02/21 22:07 07:44 11:40 WBC RBC Hgb Hct RDW Seg Neuts % (Manual) Lymphocytes % (Manual) Monocytes % (Manual) Seg Neutrophils # Man Lymphocytes # (Manual) Monocytes # (Manual) D-Dimer ABG pH ABG pO2 35.9 L* ABG HCO3 31.2 H ABG O2 Saturation 68.0 L ABG Base Excess 6.1 H Oxyhemoglobin 66.1 L Sodium Potassium Chloride BUN Creatinine Glucose POC Glucose 125 H 203 H Lactic Acid Ferritin AST Lactate Dehydrogenase C-Reactive Protein NT-Pro-B Natriuret Pep Albumin Urine WBC (Auto) Coronavirus (PCR) 03/02/21 03/02/21 03/02/21 12:13 13:00 17:15 WBC RBC Hgb Hct RDW Seg Neuts % (Manual) Lymphocytes % (Manual) Monocytes % (Manual) Seg Neutrophils # Man Lymphocytes # (Manual) Monocytes # (Manual) D-Dimer ABG pH ABG pO2 36.0 L* ABG HCO3 29.5 H ABG O2 Saturation 68.7 L ABG Base Excess 4.7 H Oxyhemoglobin 66.8 L Sodium Potassium Chloride BUN Creatinine Glucose POC Glucose 130 H 126 H Lactic Acid Ferritin AST Lactate Dehydrogenase C-Reactive Protein NT-Pro-B Natriuret Pep Albumin Urine WBC (Auto) Coronavirus (PCR) 03/02/21 03/03/21 03/03/21 21:45 08:02 10:05 WBC 19.2 H RBC Hgb Hct 44.9 H RDW Seg Neuts % (Manual) 85.0 H Lymphocytes % (Manual) 7.0 L Monocytes % (Manual) Seg Neutrophils # Man 16.3 H Lymphocytes # (Manual) Monocytes # (Manual) 1.2 H D-Dimer ABG pH ABG pO2 ABG HCO3 ABG O2 Saturation ABG Base Excess Oxyhemoglobin Sodium Potassium Chloride BUN Creatinine Glucose POC Glucose 113 H 128 H Lactic Acid Ferritin AST Lactate Dehydrogenase C-Reactive Protein NT-Pro-B Natriuret Pep Albumin Urine WBC (Auto) Coronavirus (PCR) 03/03/21 03/03/21 03/03/21 10:05 12:45 16:31 WBC RBC Hgb Hct RDW Seg Neuts % (Manual) Lymphocytes % (Manual) Monocytes % (Manual) Seg Neutrophils # Man Lymphocytes # (Manual) Monocytes # (Manual) D-Dimer ABG pH ABG pO2 47.7 L ABG HCO3 31.5 H ABG O2 Saturation 82.5 L ABG Base Excess 5.6 H Oxyhemoglobin 80.4 L Sodium Potassium Chloride 97.8 L BUN 23 H Creatinine Glucose 141 H POC Glucose 126 H Lactic Acid Ferritin AST Lactate Dehydrogenase C-Reactive Protein NT-Pro-B Natriuret Pep Albumin 3.2 L Urine WBC (Auto) Coronavirus (PCR) 03/03/21 03/04/21 03/04/21 20:52 07:24 11:04 WBC RBC Hgb Hct RDW Seg Neuts % (Manual) Lymphocytes % (Manual) Monocytes % (Manual) Seg Neutrophils # Man Lymphocytes # (Manual) Monocytes # (Manual) D-Dimer ABG pH ABG pO2 ABG HCO3 ABG O2 Saturation ABG Base Excess Oxyhemoglobin Sodium Potassium Chloride BUN Creatinine Glucose POC Glucose 152 H 126 H 142 H Lactic Acid Ferritin AST Lactate Dehydrogenase C-Reactive Protein NT-Pro-B Natriuret Pep Albumin Urine WBC (Auto) Coronavirus (PCR)
[2021-03-04 11:41] LABS: Blood Urea Nitrogen 34 mg/dL (7-17); Hemolysis Index 16
[2021-03-04 11:50] LABS: BUN/Creatinine Ratio 57
--- NOTE | 2021-03-04 13:20 | Progress Note ---
Assessment and Plan Assessment and plan: Patient is 61 years old female with history of hypertension, diabetes and DVT currently on Eliquis. Patient brought to the emergency room via EMS from home for evaluation of shortness of breath cough and generalized weakness for the last 5 days. Patient stated that she tested positive for COVID-19 on February 10 and since then she has not been feeling well. EMS stated that patient initial oxygen saturation was 75% on room air improved to 86% on a nonrebreather. Patient stated that her daughter also tested positive. 02/19/2020 Patient on 50% Ventimask Covid positive Continue steroids May DC antibiotics Respiratory assessment and treatment 02/19: Patient still hypoxic, encourage prone positioning, Pulmonary and ID consult. Will obtain CTA chest to evaluate for PE. Continue steroid therapy and oxygen therapy wean as tolerated. Continuous pulse oximeter. Plan discussed with the patient. 02/20: Patient seen and examined, remains on NRBM. awaiting CT CHEST WITH ANGIO Ordered yesterday. Encourage proning the patient says she was not proned yesterday discussed with nursing staff. Continue steroid therapy and remdesivir. Patient was seen by ID and as documented by ID"She is a candidate for Actemra based on CRp and O2 requirements. unfortunately we have not been getting procalcitonin results. -ordered Actemra once (afebrile, white count only mildly elevated in the setting of steroids)" Discussed plan of care with the nurse. Also called to updated the patients sister listed as NOK but got voice mail 02/21: Continue steroids, remdesivir, patient received 1 dose of Actemra but unable to get the second dose due to availability. CTA showed dense consolidation but no effusion and no pulmonary embolism patient does have a lower extremity DVT. Eliquis continues at full dose of 5 mg twice daily we will continue to monitor closely. Prognosis is guarded counseling for compliance for 15 minutes. 02/22: Patient clinically not improving much of switch the patient to Lovenox. Prognosis remains guarded. Continue anticoagulation due to DVT still suspicious of pulmonary embolism as a result we will obtain echocardiogram and vascular consult per pulmonary request which I agree with. I will also transfer the patient to stepdown unit for closer monitoring. 02/23: Vascular input noted agree the patient has subsegmental bibasilar pulmonary embolism but not enough to warrant intervention. Does not feel that this is contributing majority to her hypoxia. Nevertheless we will switch patient from Eliquis to Lovenox. Continue current management with remdesivir 02/24: Patient seen and examined, remains on anticoagulation, continue remedsivir and steroids. prone as tolerated, will give additional lasix today. Guarded prognosis. 02/25 A&O x 3, C/O mild cough with mucoid expectorant. Denies CP or shortness of breath. Remains on HFNC. pulmonary note and lab results reviewed 02/26: AOX3, proning on encounter. Encouraged continued movement while in bed and with assistance of care staff. Remains on HFNC. Last day of decadron today. 02/27: Patient encouraged to continue proning and remain active. Discussed with PT to come work with patient to mobilize. Will d/w CM for long filler cigar roller machine placement solution. 02/28: Patient stated she would like to be a full code. Working with CM for LTAC placement. 03/01: Awaiting LTAC placement. Remains full code. Spoke with daughter Meghna who was updated on patient's case. 03/02: Sats in low 80s on hi lfow. Blood gas shows pao2 = 35.9. will start bipap, d/w IMCU RN who will notify RT. repeat abg in 1 hr. Poor prognosis. 03/03; Sats in low 90's on bipap. Repeat abg this AM demosntrates marginal improvement in PaO2. PCCM d/w daughter, patient and her daughter would like intubation should she continue to deteriorate. Prognosis remains poor. 03/04: de-escalated to HFNC 40/100 + venti. Will continue with bipap prn. Continue steroids. Dispo is still LTAC, placement is pending. (1) Acute respiratory failure with hypoxia Current Visit: Yes Status: Acute Plan to address problem: 2/2 covid PNA she is on HFNC at 40L and 100% Fio2 --> will place back on bipap. O2 sat 90% pulmonary following cont. Decadron - stop date 02/26 wean as tolerated (2) SIRS (systemic inflammatory response syndrome) Current Visit: Yes Status: Acute Plan to address problem: Clinical picture consistent with Sirs (3) Multifocal pneumonia Current Visit: Yes Status: Acute Plan to address problem: 2/2 covid 19 off Abx (4)COVID-19 virus infection Current Visit: Yes Status: Acute Plan to address problem: completed remdesivir cont. decadron - stop date 02/26 proning as tolerated (5) Hypertension Current Visit: Yes Status: Chronic Qualifiers: Hypertension type: primary hypertension Qualified Code(s): I10 - Essential (primary) hypertension Plan to address problem: Fair cont. present medications (6) T2DM (type 2 diabetes mellitus) Current Visit: Yes Status: Chronic Qualifiers: Diabetes mellitus long filler cigar roller machine insulin use: unspecified mcfp insulin use status Plan to address problem: Continue Metformin and ISS coverage (7) Hypernatremia resolved (8) DVT LOWER EXT- RIGHT / and sub segmental PE cont. therapeutic lovenox (9) DVT prophylaxis Current Visit: Yes Status: Acute CODE STATUS: Full Code The high probability of a clinically significant, sudden or life threatening deterioration of the [pulmonary] system(s) required my full and direct attention, intervention and personal management. The aggregate critical care time was [60] minutes. This time is in addition to time spent performing reported procedures but includes the following: [X] Data Review and interpretation [X] Patient assessment and monitoring of vital signs [X] Documentation [X] Medication orders and management History Interval history: Remains on bipap since yesterday. sats in low 90s. Hospitalist Physical - Physical exam Narrative exam: Physical Exam: Constitutional: Alert, cooperative. Mild resp distress Head, Ears, Nose: Normocephalic, atraumatic. External ears, nose normal Eyes: Conjunctivae/corneas clear. No icterus. No ptosis. Neck: Supple, no meningeal signs Oral: Deferred due to COVID-19 Cardiovascular: S1, S2 + Respiratory: AE fair bilaterally GI: Soft, non-tender; bowel sounds normal. No peritoneal signs Musculoskeletal: No pedal edema, no cyanosis. Skin: No rash or abscess Hem/Lymphatic: No palpable cervical or supraclavicular nodes. No lymphangitis Psych: No agitation Neurological: Awake, alert - Constitutional Vitals: Temp Pulse Resp BP Pulse Ox 98.9 F 110 H 30 H 125/86 92 03/04/21 12:06 03/04/21 11:30 03/04/21 11:30 03/04/21 11:30 03/04/21 11:30 General appearance: Present: no acute distress, well-nourished Results - Labs CBC & Chem 7: 01/16/22 10:05 03/04/21 11:05 Labs: Laboratory Last Values WBC 19.2 K/mm3 (4.5-11.0) H 03/03/21 10:05 RBC 5.01 M/mm3 (3.65-5.03) 03/03/21 10:05 Hgb 14.2 gm/dl (10.1-14.3) 03/03/21 10:05 Hct 44.9 % (30.3-42.9) H 03/03/21 10:05 MCV 90 fl (79-97) 03/03/21 10:05 MCH 28 pg (28-32) 03/03/21 10:05 MCHC 32 % (30-34) 03/03/21 10:05 RDW 15.1 % (13.2-15.2) 03/03/21 10:05 Plt Count 435 K/mm3 (140-440) 03/03/21 10:05 Add Manual Diff Complete 03/03/21 10:05 Total Counted 100 03/03/21 10:05 Seg Neuts % (Manual) 85.0 % (40.0-70.0) H 03/03/21 10:05 Band Neutrophils % 0 % 03/03/21 10:05 Lymphocytes % (Manual) 7.0 % (13.4-35.0) L 03/03/21 10:05 Reactive Lymphs % (Man) 0 % 03/03/21 10:05 Monocytes % (Manual) 6.0 % (0.0-7.3) 03/03/21 10:05 Eosinophils % (Manual) 2.0 % (0.0-4.3) 03/03/21 10:05 Basophils % (Manual) 0 % (0.0-1.8) 03/03/21 10:05 Metamyelocytes % 0 % 03/03/21 10:05 Myelocytes % 0 % 03/03/21 10:05 Promyelocytes % 0 % 03/03/21 10:05 Blast Cells % 0 % 03/03/21 10:05 Nucleated RBC % Not Reportable 03/03/21 10:05 Seg Neutrophils # Man 16.3 K/mm3 (1.8-7.7) H 03/03/21 10:05 Band Neutrophils # 0.0 K/mm3 03/03/21 10:05 Lymphocytes # (Manual) 1.3 K/mm3 (1.2-5.4) 03/03/21 10:05 Abs React Lymphs (Man) 0.0 K/mm3 03/03/21 10:05 Monocytes # (Manual) 1.2 K/mm3 (0.0-0.8) H 03/03/21 10:05 Eosinophils # (Manual) 0.4 K/mm3 (0.0-0.4) 03/03/21 10:05 Basophils # (Manual) 0.0 K/mm3 (0.0-0.1) 03/03/21 10:05 Metamyelocytes # 0.0 K/mm3 03/03/21 10:05 Myelocytes # 0.0 K/mm3 03/03/21 10:05 Promyelocytes # 0.0 K/mm3 03/03/21 10:05 Blast Cells # 0.0 K/mm3 03/03/21 10:05 WBC Morphology Not Reportable 03/03/21 10:05 Hypersegmented Neuts Not Reportable 03/03/21 10:05 Hyposegmented Neuts Not Reportable 03/03/21 10:05 Hypogranular Neuts Not Reportable 03/03/21 10:05 Smudge Cells Not Reportable 03/03/21 10:05 Toxic Granulation Not Reportable 03/03/21 10:05 Toxic Vacuolation Not Reportable 03/03/21 10:05 Dohle Bodies Not Reportable 03/03/21 10:05 Pelger-Huet Anomaly Not Reportable 03/03/21 10:05 Cindy Rods Not Reportable 03/03/21 10:05 Platelet Estimate Consistent w auto 03/03/21 10:05 Clumped Platelets Not Reportable 03/03/21 10:05 Plt Clumps, EDTA Not Reportable 03/03/21 10:05 Large Platelets Not Reportable 03/03/21 10:05 Giant Platelets Not Reportable 03/03/21 10:05 Platelet Satelliting Not Reportable 03/03/21 10:05 Plt Morphology Comment Not Reportable 03/03/21 10:05 RBC Morphology Normal 03/03/21 10:05 Dimorphic RBCs Not Reportable 03/03/21 10:05 Polychromasia Not Reportable 03/03/21 10:05 Hypochromasia Not Reportable 03/03/21 10:05 Poikilocytosis Not Reportable 03/03/21 10:05 Anisocytosis Not Reportable 03/03/21 10:05 Microcytosis Not Reportable 03/03/21 10:05 Macrocytosis Not Reportable 03/03/21 10:05 Spherocytes Not Reportable 03/03/21 10:05 Pappenheimer Bodies Not Reportable 03/03/21 10:05 Sickle Cells Not Reportable 03/03/21 10:05 Target Cells Not Reportable 03/03/21 10:05 Tear Drop Cells Not Reportable 03/03/21 10:05 Ovalocytes Not Reportable 03/03/21 10:05 Helmet Cells Not Reportable 03/03/21 10:05 [place] Bodies Not Reportable 03/03/21 10:05 [place] Rings Not Reportable 03/03/21 10:05 Ama Cells Not Reportable 03/03/21 10:05 Bite Cells Not Reportable 03/03/21 10:05 Crenated Cell Not Reportable 03/03/21 10:05 Elliptocytes Not Reportable 03/03/21 10:05 Acanthocytes (Spur) Not Reportable 03/03/21 10:05 Rouleaux Not Reportable 03/03/21 10:05 Hemoglobin C Crystals Not Reportable 03/03/21 10:05 Schistocytes Not Reportable 03/03/21 10:05 Malaria parasites Not Reportable 03/03/21 10:05 [place] Bodies Not Reportable 03/03/21 10:05 Hem Pathologist Commnt No 03/03/21 10:05 PT 13.9 Sec. (12.2-14.9) 02/17/21 14:34 INR 0.96 (0.87-1.13) 02/17/21 14:34 APTT 26.4 Sec. (24.2-36.6) 02/17/21 14:34 D-Dimer 3469.99 ng/mlDDU (0-234) H 03/01/21 05:12 ABG pH 7.409 pH Units (7.350-7.450) 03/03/21 12:45 ABG pCO2 51.0 mm Hg 03/03/21 12:45 ABG pO2 47.7 mm Hg (80.0-90.0) L 03/03/21 12:45 ABG HCO3 31.5 mmol/L (20.0-26.0) H 03/03/21 12:45 ABG O2 Saturation 82.5 % (95.0-99.0) L 03/03/21 12:45 ABG O2 Content 16.5 (0.0-44) 03/03/21 12:45 ABG Base Excess 5.6 mmol/L (-2.0-3.0) H 03/03/21 12:45 ABG Hemoglobin 14.7 gm/dl (12.0-16.0) 03/03/21 12:45 ABG Carboxyhemoglobin 1.7 % (0.0-5.0) 03/03/21 12:45 ABG Methemoglobin 0.7 % (0.0-1.5) 03/03/21 12:45 Oxyhemoglobin 80.4 % (95.0-99.0) L 03/03/21 12:45 FiO2 100 % 03/03/21 12:45 Sodium 144 mmol/L (137-145) 03/04/21 11:05 Potassium 3.6 mmol/L (3.6-5.0) 03/04/21 11:05 Chloride 100.1 mmol/L (98-107) 03/04/21 11:05 Carbon Dioxide 26 mmol/L (22-30) 03/04/21 11:05 Anion Gap 22 mmol/L 03/04/21 11:05 BUN 34 mg/dL (7-17) H 03/04/21 11:05 Creatinine 0.6 mg/dL (0.6-1.2) 03/04/21 11:05 Estimated GFR > 60 ml/min 03/04/21 11:05 BUN/Creatinine Ratio 57 % 03/04/21 11:05 Glucose 143 mg/dL (65-100) H 03/04/21 11:05 POC Glucose 142 mg/dL (70-105) H 03/04/21 11:04 Lactic Acid 1.60 mmol/L (0.7-2.0) 02/17/21 18:39 Calcium 10.0 mg/dL (8.4-10.2) 03/04/21 11:05 Phosphorus 4.00 mg/dL (2.5-4.5) 02/28/21 18:41 Magnesium 2.00 mg/dL (1.7-2.3) 02/28/21 18:41 Ferritin 1526.0 ng/mL (10.0-200.0) H 03/01/21 05:12 Total Bilirubin 0.40 mg/dL (0.1-1.2) 03/03/21 10:05 Direct Bilirubin < 0.2 mg/dL (0-0.2) 02/17/21 14:34 Indirect Bilirubin 0.1 mg/dL 02/17/21 14:34 AST 40 units/L (5-40) 03/03/21 10:05 ALT 40 units/L (7-56) 03/03/21 10:05 Alkaline Phosphatase 86 units/L (35-129) 03/03/21 10:05 Lactate Dehydrogenase 385 units/L (91-180) H 03/01/21 05:12 C-Reactive Protein 11.20 mg/dL (0.00-1.30) H 03/01/21 05:12 NT-Pro-B Natriuret Pep 86.77 pg/mL (0-900) 02/20/21 16:34 Total Protein 7.9 g/dL (6.3-8.2) 03/03/21 10:05 Albumin 3.2 g/dL (3.9-5) L 03/03/21 10:05 Albumin/Globulin Ratio 0.7 % 03/03/21 10:05 Procalcitonin 0.11 ng/mL (<0.15) 02/19/21 07:32 Urine Color Cassandra (Yellow) 02/18/21 Unknown Urine Turbidity Cloudy (Clear) 02/18/21 Unknown Urine pH 5.0 (5.0-7.0) 02/18/21 Unknown Ur Specific [place] 1.027 (1.003-1.030) 02/18/21 Unknown Urine Protein 100 mg/dl mg/dL (Negative) 02/18/21 Unknown Urine Glucose (UA) Neg mg/dL (Negative) 02/18/21 Unknown Urine Ketones Neg mg/dL (Negative) 02/18/21 Unknown Urine Blood Neg (Negative) 02/18/21 Unknown Urine Nitrite Neg (Negative) 02/18/21 Unknown Urine Bilirubin Neg (Negative) 02/18/21 Unknown Urine Urobilinogen < 2.0 mg/dL (<2.0) 02/18/21 Unknown Ur Leukocyte Esterase Neg (Negative) 02/18/21 Unknown Urine WBC (Auto) 7.0 /HPF (0.0-6.0) H 02/18/21 Unknown Urine RBC (Auto) 4.0 /HPF (0.0-6.0) 02/18/21 Unknown U Epithel Cells (Auto) 3.0 /HPF (0-13.0) 02/18/21 Unknown Urine Mucus 2+ /HPF 02/18/21 Unknown Coronavirus (PCR) Positive (Negative) A 02/18/21 Unknown Head/IV: Voiding Method External Female Catheter Active Medications - Current Medications Current Medications: Generic Name Dose Route Start Last Admin Trade Name Freq PRN Reason Stop Dose Admin Acetaminophen 650 mg 02/17/21 23:58 03/02/21 09:45 Acetaminophen 325 Mg Tab PO 650 mg Q4H PRN Administration Pain MILD(1-3)/Fever >100.5/BROWN Amlodipine Besylate 10 mg 02/19/21 10:00 03/04/21 10:31 Amlodipine 10 Mg Tab PO 10 mg DAILY DEISY Administration Ascorbic Acid 1,000 mg 02/19/21 10:00 03/04/21 10:30 Ascorbic Acid 500 Mg Tab PO 1,000 mg BID DEISY Administration Cholecalciferol 5,000 unit 02/19/21 10:00 03/04/21 10:31 Cholecalciferol (Vit D3) 5,000 Unit Tab PO 5,000 unit DAILY DEISY Administration Dextrose 50 ml 02/27/21 11:30 Dextrose 50% In Water (25gm) 50 Ml Syringe IV Q30MIN PRN Hypoglycemia Protocol Enoxaparin Sodium 90 mg 02/22/21 10:00 03/04/21 10:30 Enoxaparin 100 Mg/1 Ml Inj 1 mg/kg (90 mg) 90 mg SUB-Q Administration Q12HR [facility] Protocol Famotidine 20 mg 02/18/21 10:00 03/04/21 10:31 Famotidine 20 Mg Tab PO 20 mg BID DEISY Administration Furosemide 40 mg 02/18/21 08:00 03/04/21 10:30 Furosemide 40 Mg/4 Ml Inj IV 40 mg 0800 DEISY Administration Gabapentin 400 mg 02/19/21 04:00 03/04/21 10:30 Gabapentin 400 Mg Cap PO 400 mg BID DEISY Administration Hydromorphone HCl 0.5 mg 02/17/21 23:58 Hydromorphone 1 Mg/1 Ml Inj IV Q3H PRN Pain , Severe (7-10) Insulin Glargine 10 units 03/02/21 22:00 03/03/21 21:37 Insulin Glargine 100 Units/Ml SUB-Q Not Given QHS DEISY Insulin Human Lispro 0 unit 02/27/21 11:30 03/04/21 10:31 Insulin Lispro 100 Unit/Ml SUB-Q Not Given ACHS [facility] Protocol Ondansetron HCl 4 mg 02/17/21 23:58 Ondansetron 4 Mg/2 Ml Inj IV Q8H PRN Nausea And Vomiting Oxycodone/Acetaminophen 1 tab 02/17/21 23:58 02/27/21 04:22 Oxycodone /Acetaminophen 5-325mg Tab PO 1 tab Q6H PRN Administration Pain, Moderate (4-6) Sertraline HCl 50 mg 02/19/21 10:00 03/04/21 10:30 Sertraline 50 Mg Tab PO 50 mg QDAY DEISY Administration Sodium Chloride 10 ml 02/18/21 10:00 03/04/21 10:31 Sodium Chloride 0.9% 10 Ml Flush Syringe IV 10 ml BID DEISY Administration Sodium Chloride 10 ml 02/17/21 23:58 Sodium Chloride 0.9% 10 Ml Flush Syringe IV PRN PRN LINE FLUSH Zinc Sulfate 220 mg 02/19/21 10:00 03/04/21 10:30 Zinc Sulfate 220 Mg Cap PO 220 mg QDAY DEISY Administration Nutrition/Malnutrition Assess - Dietary Evaluation Nutrition/Malnutrition Findings: Nutrition Notes Start: 02/25/21 16:10 Freq: Status: Active Protocol: Document 02/25/21 16:10 ALEC (Rec: 02/25/21 16:47 ALEC [id number]) Nutrition Notes Need for Assessment generated from: LOS Initial or Follow up Assessment Current Diagnosis Diabetes,Hypertension, Respiratory Failure Other Pertinent Diagnosis COVID-19 pneumonia, SIRS. Current Diet Cardiac Diet (since B 02/18). Labs/Tests 02/24" BUN 23. Pertinent Medications 02/25: Vit C, Vit D3, ZnSO4, others nutritionally unremarkable. Height 5 ft 6 in Weight 86.183 kg [place] Body Weight (kg) 59.09 BMI 30.7 Intake Prior to Admission Good Weight change and time frame None, according to admission report. Weight Status Obese Subjective/Other Information RD consult for LOS assessment. Pt on NIV/Bi-Pap+. No report available on Pt's % PO intake of meals at the time . F/U on PO intake of meals assessment. Percent of energy/protein needs met: Prescribed Cardiac Diet provides for energy/protein needs (2,230 Kcal/85 g) during LOS. Burn Absent Trauma Absent GI Symptoms None Food Allergy No Skin Integrity/Comment Clear, warm, dry. Minimum of two criteria No Is patient on ventilator? No Is Patient Ambulatory and/or Out of Bed Yes REE-([place]-St. Jeor-ambulatory/OOB) [ [id number] [id number]] Kcal/Kg value to use for calculation 13 Approximate Energy Requirements Using 1120 kcal/Kg Calculation Used for Recommendations Kcal/kg Additional Notes Protein: >2 g/Kg; >118 g/day. Fluids: 1 ml/Kcal, or as per MD. Nutrition Intervention Change Diet Order: Continue Cardiac Diet. Follow-Up By: 03/04/21 Additional Comments Continue monitoring food tolerance, %PO intake of meals , and BM.
[2021-03-04 21:42] LABS: ABG Base Excess 5.6 mmol/L (-2.0-3.0); ABG HCO3 29.7 mmol/L (20.0-26.0); ABG Methemoglobin 0.7 % (0.0-1.5); ABG Oxygen Saturation 66.4 % (95.0-99.0); ABG PCO2 41.4 mm Hg; ABG PH 7.473 pH Units (7.350-7.450)
[2021-03-04 21:55] LABS: ABG PO2 34.1 mm Hg (80.0-90.0)
[2021-03-04] MEDS: INSULIN GLARGINE 100 UNITS/ML SUB-Q SCH (23:38)
[2021-03-05] MEDS: INSULIN LISPRO 100 UNIT/ML SUB-Q SCH ×3 (08:48→18:32)
[2021-03-05] MEDS ORDERED: ROCURONIUM 50 MG/5 ML INJ IV ONE (09:20)
[2021-03-05] MEDS ORDERED: SUCCINYLCHOLINE CHLORIDE 200 MG/10 ML INJ MDV IV ONE (09:20)
[2021-03-05] MEDS ORDERED: ETOMIDATE 20 MG/10 ML INJ IV ONE ×2 (09:20)
[2021-03-05] MEDS ORDERED: SUCCINYLCHOLINE CHLORIDE 200 MG/10 ML INJ MDV ONE (09:20)
[2021-03-05] MEDS ORDERED: fentaNYL 100 MCG/2 ML INJ IV PRN (09:38)
[2021-03-05] MEDS ORDERED: LIP THERAPY VASELINE TP PRN (09:39)
[2021-03-05] MEDS ORDERED: MINERAL OIL/PETROLATUM, WHITE OPHTH OINT 3.5 GM OU PRN (09:39)
--- NOTE | 2021-03-05 09:40 | Event Note ---
Date: 03/05/21 (Intubation) Requested to intubate this COVID patient Meds 0926 Etomidate 100 mg + Arslan 100 mg Glidescope X 1 attempt AT/DVC 7.5 OETT +BBS/CO2 VSS
[2021-03-05] MEDS: fentaNYL DRIP Premix 2,000 MCG/100 ML BAG IV SCH ×3 (09:53→21:10)
[2021-03-05] MEDS: FUROSEMIDE 40 MG/4 ML INJ IV SCH (10:00)
[2021-03-05] MEDS ORDERED: NORepinephrine/NS 8 MG-250 ML 8 MG/250 ML INFUS..BTL IV ONE (10:23)
[2021-03-05] MEDS: MIDAZOLAM 2 MG/2 ML INJ IV PRN ×2 (10:30→10:53)
[2021-03-05] MEDS: NORepinephrine/NS 8 MG-250 ML 8 MG/250 ML INFUS..BTL IV SCH (10:30)
[2021-03-05 10:50] LABS: Hematocrit 45.8 % (30.3-42.9); Hemoglobin 14.5 gm/dl (10.1-14.3); Mean Corpuscular HGB Conc 32 % (30-34); Mean Corpuscular Volume 92 fl (79-97); Platelet Count 446 K/mm3 (140-440); Red Cell Distribution Width 15.3 % (13.2-15.2)
--- NOTE | 2021-03-05 10:51 | XRay Report ---
CHEST 1 VIEW INDICATION: Endotracheal tube placement. COMPARISON: Yesterday FINDINGS: Support devices: The endotracheal tube is in adequate position terminating 4.5 cm superior to the car marsha. A nasogastric tube transverses the esophagus. Heart: Within normal limits Lungs/Pleura: Mild bilateral interstitial prominence is present consistent with interstitial edema or atypical infiltrates. No large pleural effusion or pneumothorax. Additional findings: None. IMPRESSION: Adequate placement of the endotracheal tube. ABDOMEN 1 VIEW(S) INDICATION / CLINICAL INFORMATION: OG PLACEMENT. COMPARISON: None available. FINDINGS: TUBES / LINES: The nasogastric tube is in good position terminating in the distal stomach. BOWEL GAS PATTERN: No significant abnormality. FREE AIR / EXTRALUMINAL GAS: None seen. ADDITIONAL FINDINGS: No significant additional findings. IMPRESSION: Adequate placement of the nasogastric tube. Signer Name: Willie Garcia Jr, MD Signed: 03/05/2021 10:46 AM Workstation Name: [id number]
[2021-03-05 10:53] LABS: Alanine Aminotransferase 44 units/L (7-56); Albumin 3.1 g/dL (3.9-5); BUN/Creatinine Ratio 57; Blood Urea Nitrogen 51 mg/dL (7-17); Calcium 9.7 mg/dL (8.4-10.2); Hemolysis Index 12
[2021-03-05] MEDS: FAMOTIDINE 20 MG/2 ML INJ IV SCH ×2 (10:56→22:36)
[2021-03-05] MEDS: ENOXAPARIN 100 MG/1 ML INJ SUB-Q SCH ×2 (10:56→22:36)
[2021-03-05] MEDS: MIDAZOLAM 100 MG in SODIUM CHLORIDE 0.9% 80 ML IV SCH (10:57)
[2021-03-05] MEDS: GABAPENTIN 400 MG CAP PO SCH ×2 (11:29→22:36)
[2021-03-05] MEDS: ZINC SULFATE 220 MG CAP PO SCH (11:29)
[2021-03-05] MEDS: SENNOSIDES/DOCUSATE SODIUM 8.6/50 MG TAB FEEDTUBE SCH ×2 (11:29→22:36)
[2021-03-05] MEDS: ASCORBIC ACID 500 MG TAB PO SCH (11:29)
[2021-03-05] MEDS: SERTRALINE 50 MG TAB PO SCH (11:29)
[2021-03-05] MEDS: CHOLECALCIFEROL (VIT D3) 5,000 UNIT TAB PO SCH (11:29)
[2021-03-05] MEDS: amLODIPine 10 MG TAB PO SCH (11:30)
[2021-03-05 11:32] LABS: Band Neutrophils # (Manual) 0.5 K/mm3; Total Cells Counted 100
[2021-03-05 11:33] LABS: Anisocytosis 1+; Basophils % (Manual) 0 % (0.0-1.8); Large Platelets 1+; Platelet Estimate Consistent w Auto
--- NOTE | 2021-03-05 12:10 | Progress Note ---
Assessment and Plan Assessment and plan: Patient is 61 years old female with history of hypertension, diabetes and DVT currently on Eliquis. Patient brought to the emergency room via EMS from home for evaluation of shortness of breath cough and generalized weakness for the last 5 days. Patient stated that she tested positive for COVID-19 on February 10 and since then she has not been feeling well. EMS stated that patient initial oxygen saturation was 75% on room air improved to 86% on a nonrebreather. Patient stated that her daughter also tested positive. 02/19/2020 Patient on 50% Ventimask Covid positive Continue steroids May DC antibiotics Respiratory assessment and treatment 02/19: Patient still hypoxic, encourage prone positioning, Pulmonary and ID consult. Will obtain CTA chest to evaluate for PE. Continue steroid therapy and oxygen therapy wean as tolerated. Continuous pulse oximeter. Plan discussed with the patient. 02/20: Patient seen and examined, remains on NRBM. awaiting CT CHEST WITH ANGIO Ordered yesterday. Encourage proning the patient says she was not proned yesterday discussed with nursing staff. Continue steroid therapy and remdesivir. Patient was seen by ID and as documented by ID"She is a candidate for Actemra based on CRp and O2 requirements. unfortunately we have not been getting procalcitonin results. -ordered Actemra once (afebrile, white count only mildly elevated in the setting of steroids)" Discussed plan of care with the nurse. Also called to updated the patients sister listed as NOK but got voice mail 02/21: Continue steroids, remdesivir, patient received 1 dose of Actemra but unable to get the second dose due to availability. CTA showed dense consolidation but no effusion and no pulmonary embolism patient does have a lower extremity DVT. Eliquis continues at full dose of 5 mg twice daily we will continue to monitor closely. Prognosis is guarded counseling for compliance for 15 minutes. 02/22: Patient clinically not improving much of switch the patient to Lovenox. Prognosis remains guarded. Continue anticoagulation due to DVT still suspicious of pulmonary embolism as a result we will obtain echocardiogram and vascular consult per pulmonary request which I agree with. I will also transfer the patient to stepdown unit for closer monitoring. 02/23: Vascular input noted agree the patient has subsegmental bibasilar pulmonary embolism but not enough to warrant intervention. Does not feel that this is contributing majority to her hypoxia. Nevertheless we will switch patient from Eliquis to Lovenox. Continue current management with remdesivir 02/24: Patient seen and examined, remains on anticoagulation, continue remedsivir and steroids. prone as tolerated, will give additional lasix today. Guarded prognosis. 02/25 A&O x 3, C/O mild cough with mucoid expectorant. Denies CP or shortness of breath. Remains on HFNC. pulmonary note and lab results reviewed 02/26: AOX3, proning on encounter. Encouraged continued movement while in bed and with assistance of care staff. Remains on HFNC. Last day of decadron today. 02/27: Patient encouraged to continue proning and remain active. Discussed with PT to come work with patient to mobilize. Will d/w CM for manager terminal placement solution. 02/28: Patient stated she would like to be a full code. Working with CM for LTAC placement. 03/01: Awaiting LTAC placement. Remains full code. Spoke with daughter Meghna who was updated on patient's case. 03/02: Sats in low 80s on hi lfow. Blood gas shows pao2 = 35.9. will start bipap, d/w IMCU RN who will notify RT. repeat abg in 1 hr. Poor prognosis. 03/03; Sats in low 90's on bipap. Repeat abg this AM demosntrates marginal improvement in PaO2. PCCM d/w daughter, patient and her daughter would like intubation should she continue to deteriorate. Prognosis remains poor. 03/04: de-escalated to HFNC 40/100 + venti. Will continue with bipap prn. Continue steroids. Dispo is still LTAC, placement is pending. 03/05: Resipratory distress this morning. Sats 69-70%. subsequently intubated. Now icu level of care. Family wants continue aggressive measures. Will follow [facility] recs. (1) Acute respiratory failure with hypoxia Current Visit: Yes Status: Acute Plan to address problem: 2/2 covid PNA Intubated on 03/05 MV management per PSYCHIATRIC O2 sat 90% and above acceptable pulmonary following s/p decadron wean as tolerated follow [facility] recs. (2) SIRS (systemic inflammatory response syndrome) Current Visit: Yes Status: Acute Plan to address problem: Clinical picture consistent with Sirs (3) Multifocal pneumonia Current Visit: Yes Status: Acute Plan to address problem: 2/2 covid 19 off Abx (4)COVID-19 virus infection Current Visit: Yes Status: Acute Plan to address problem: completed remdesivir cont. decadron - stop date 02/26 proning as tolerated (5) Hypertension Current Visit: Yes Status: Chronic Qualifiers: Hypertension type: primary hypertension Qualified Code(s): I10 - Essential (primary) hypertension Plan to address problem: Fair cont. present medications (6) T2DM (type 2 diabetes mellitus) Current Visit: Yes Status: Chronic Qualifiers: Diabetes mellitus nursing home insulin use: unspecified nursing home insulin use status Plan to address problem: Continue Metformin and ISS coverage (7) Hypernatremia resolved (8) DVT LOWER EXT- RIGHT / and sub segmental PE cont. therapeutic lovenox (9) DVT prophylaxis Current Visit: Yes Status: Acute Level of Care: ICU CODE STATUS: Full Code The high probability of a clinically significant, sudden or life threatening deterioration of the [pulmonary] system(s) required my full and direct attentio n, intervention and personal management. The aggregate critical care time was [60] minutes. This time is in addition to time spent performing reported procedures but includes the following: [X] Data Review and interpretation [X] Patient assessment and monitoring of vital signs [X] Documentation [X] Medication orders and management History Interval history: Resipratory distress this morning. Sats 69-70%. subsequently intubated. Hospitalist Physical - Physical exam Narrative exam: Physical Exam: Constitutional: Alert, cooperative. Mild resp distress Head, Ears, Nose: Normocephalic, atraumatic. External ears, nose normal Eyes: Conjunctivae/corneas clear. No icterus. No ptosis. Neck: Supple, no meningeal signs Oral: Deferred due to COVID-19 Cardiovascular: S1, S2 + Respiratory: AE fair bilaterally GI: Soft, non-tender; bowel sounds normal. No peritoneal signs Musculoskeletal: No pedal edema, no cyanosis. Skin: No rash or abscess Hem/Lymphatic: No palpable cervical or supraclavicular nodes. No lymphangitis Psych: No agitation Neurological: Awake, alert - Constitutional Vitals: Temp Pulse Resp BP Pulse Ox 98.6 F 96 H 16 100/63 75 L 03/05/21 12:00 03/05/21 12:00 03/05/21 12:00 03/05/21 12:00 03/05/21 12:00 General appearance: Present: no acute distress, well-nourished Results - Labs CBC & Chem 7: 03/05/21 10:10 03/05/21 10:10 Labs: Laboratory Last Values WBC 17.8 K/mm3 (4.5-11.0) H 03/05/21 10:10 RBC 5.00 M/mm3 (3.65-5.03) 03/05/21 10:10 Hgb 14.5 gm/dl (10.1-14.3) H 03/05/21 10:10 Hct 45.8 % (30.3-42.9) H 03/05/21 10:10 MCV 92 fl (79-97) 03/05/21 10:10 MCH 29 pg (28-32) 03/05/21 10:10 MCHC 32 % (30-34) 03/05/21 10:10 RDW 15.3 % (13.2-15.2) H 03/05/21 10:10 Plt Count 446 K/mm3 (140-440) H 03/05/21 10:10 Add Manual Diff Complete 03/05/21 10:10 Total Counted 100 03/05/21 10:10 Seg Neuts % (Manual) 77.0 % (40.0-70.0) H 03/05/21 10:10 Band Neutrophils % 3.0 % 03/05/21 10:10 Lymphocytes % (Manual) 12.0 % (13.4-35.0) L 03/05/21 10:10 Reactive Lymphs % (Man) 2.0 % 03/05/21 10:10 Monocytes % (Manual) 5.0 % (0.0-7.3) 03/05/21 10:10 Eosinophils % (Manual) 1.0 % (0.0-4.3) 03/05/21 10:10 Basophils % (Manual) 0 % (0.0-1.8) 03/05/21 10:10 Metamyelocytes % 0 % 03/05/21 10:10 Myelocytes % 0 % 03/05/21 10:10 Promyelocytes % 0 % 03/05/21 10:10 Blast Cells % 0 % 03/05/21 10:10 Nucleated RBC % Not Reportable 03/05/21 10:10 Seg Neutrophils # Man 13.7 K/mm3 (1.8-7.7) H 03/05/21 10:10 Band Neutrophils # 0.5 K/mm3 03/05/21 10:10 Lymphocytes # (Manual) 2.1 K/mm3 (1.2-5.4) 03/05/21 10:10 Abs React Lymphs (Man) 0.4 K/mm3 03/05/21 10:10 Monocytes # (Manual) 0.9 K/mm3 (0.0-0.8) H 03/05/21 10:10 Eosinophils # (Manual) 0.2 K/mm3 (0.0-0.4) 03/05/21 10:10 Basophils # (Manual) 0.0 K/mm3 (0.0-0.1) 03/05/21 10:10 Metamyelocytes # 0.0 K/mm3 03/05/21 10:10 Myelocytes # 0.0 K/mm3 03/05/21 10:10 Promyelocytes # 0.0 K/mm3 03/05/21 10:10 Blast Cells # 0.0 K/mm3 03/05/21 10:10 WBC Morphology Not Reportable 03/05/21 10:10 Hypersegmented Neuts Not Reportable 03/05/21 10:10 Hyposegmented Neuts Not Reportable 03/05/21 10:10 Hypogranular Neuts Not Reportable 03/05/21 10:10 Smudge Cells Not Reportable 03/05/21 10:10 Toxic Granulation Not Reportable 03/05/21 10:10 Toxic Vacuolation Not Reportable 03/05/21 10:10 Dohle Bodies Not Reportable 03/05/21 10:10 Pelger-Huet Anomaly Not Reportable 03/05/21 10:10 Cindy Rods Not Reportable 03/05/21 10:10 Platelet Estimate Consistent w auto 03/05/21 10:10 Clumped Platelets Not Reportable 03/05/21 10:10 Plt Clumps, EDTA Not Reportable 03/05/21 10:10 Large Platelets 1+ 03/05/21 10:10 Giant Platelets Not Reportable 03/05/21 10:10 Platelet Satelliting Not Reportable 03/05/21 10:10 Plt Morphology Comment Not Reportable 03/05/21 10:10 RBC Morphology Not Reportable 03/05/21 10:10 Dimorphic RBCs Not Reportable 03/05/21 10:10 Polychromasia Few 03/05/21 10:10 Hypochromasia Not Reportable 03/05/21 10:10 Poikilocytosis Not Reportable 03/05/21 10:10 Anisocytosis 1+ 03/05/21 10:10 Microcytosis Not Reportable 03/05/21 10:10 Macrocytosis Not Reportable 03/05/21 10:10 Spherocytes Not Reportable 03/05/21 10:10 Pappenheimer Bodies Not Reportable 03/05/21 10:10 Sickle Cells Not Reportable 03/05/21 10:10 Target Cells Not Reportable 03/05/21 10:10 Tear Drop Cells Not Reportable 03/05/21 10:10 Ovalocytes Not Reportable 03/05/21 10:10 Helmet Cells Not Reportable 03/05/21 10:10 [place] Bodies Not Reportable 03/05/21 10:10 Amma Rings Not Reportable 03/05/21 10:10 Alicia Cells Not Reportable 03/05/21 10:10 Bite Cells Not Reportable 03/05/21 10:10 Crenated Cell Not Reportable 03/05/21 10:10 Elliptocytes Not Reportable 03/05/21 10:10 Acanthocytes (Spur) Not Reportable 03/05/21 10:10 Rouleaux Not Reportable 03/05/21 10:10 Hemoglobin C Crystals Not Reportable 03/05/21 10:10 Schistocytes Not Reportable 03/05/21 10:10 Malaria parasites Not Reportable 03/05/21 10:10 Pedro Pablo Bodies Not Reportable 03/05/21 10:10 Hem Pathologist Commnt No 03/05/21 10:10 PT 13.9 Sec. (12.2-14.9) 02/17/21 14:34 INR 0.96 (0.87-1.13) 02/17/21 14:34 APTT 26.4 Sec. (24.2-36.6) 02/17/21 14:34 D-Dimer 3469.99 ng/mlDDU (0-234) H 03/01/21 05:12 ABG pH 7.473 pH Units (7.350-7.450) H 03/04/21 21:30 ABG pCO2 41.4 mm Hg 03/04/21 21:30 ABG pO2 34.1 mm Hg (80.0-90.0) L* 03/04/21 21:30 ABG HCO3 29.7 mmol/L (20.0-26.0) H 03/04/21 21:30 ABG O2 Saturation 66.4 % (95.0-99.0) L 03/04/21 21:30 ABG O2 Content 13.1 (0.0-44) 03/04/21 21:30 ABG Base Excess 5.6 mmol/L (-2.0-3.0) H 03/04/21 21:30 ABG Hemoglobin 14.4 gm/dl (12.0-16.0) 03/04/21 21:30 ABG Carboxyhemoglobin 1.6 % (0.0-5.0) 03/04/21 21:30 ABG Methemoglobin 0.7 % (0.0-1.5) 03/04/21 21:30 Oxyhemoglobin 64.9 % (95.0-99.0) L 03/04/21 21:30 FiO2 100 % 03/04/21 21:30 Sodium 144 mmol/L (137-145) 03/05/21 10:10 Potassium 3.5 mmol/L (3.6-5.0) L 03/05/21 10:10 Chloride 100.0 mmol/L (98-107) 03/05/21 10:10 Carbon Dioxide 26 mmol/L (22-30) 03/05/21 10:10 Anion Gap 22 mmol/L 03/05/21 10:10 BUN 51 mg/dL (7-17) H 03/05/21 10:10 Creatinine 0.9 mg/dL (0.6-1.2) 03/05/21 10:10 Estimated GFR > 60 ml/min 03/05/21 10:10 BUN/Creatinine Ratio 57 % 03/05/21 10:10 Glucose 217 mg/dL (65-100) H 03/05/21 10:10 POC Glucose 124 mg/dL (70-105) H 03/05/21 11:41 Lactic Acid 1.60 mmol/L (0.7-2.0) 02/17/21 18:39 Calcium 9.7 mg/dL (8.4-10.2) 03/05/21 10:10 Phosphorus 4.00 mg/dL (2.5-4.5) 02/28/21 18:41 Magnesium 2.00 mg/dL (1.7-2.3) 02/28/21 18:41 Ferritin 1526.0 ng/mL (10.0-200.0) H 03/01/21 05:12 Total Bilirubin 0.30 mg/dL (0.1-1.2) 03/05/21 10:10 Direct Bilirubin < 0.2 mg/dL (0-0.2) 02/17/21 14:34 Indirect Bilirubin 0.1 mg/dL 02/17/21 14:34 AST 38 units/L (5-40) 03/05/21 10:10 ALT 44 units/L (7-56) 03/05/21 10:10 Alkaline Phosphatase 78 units/L (35-129) 03/05/21 10:10 Lactate Dehydrogenase 385 units/L (91-180) H 03/01/21 05:12 C-Reactive Protein 11.20 mg/dL (0.00-1.30) H 03/01/21 05:12 NT-Pro-B Natriuret Pep 86.77 pg/mL (0-900) 02/20/21 16:34 Total Protein 7.7 g/dL (6.3-8.2) 03/05/21 10:10 Albumin 3.1 g/dL (3.9-5) L 03/05/21 10:10 Albumin/Globulin Ratio 0.7 % 03/05/21 10:10 Procalcitonin 0.11 ng/mL (<0.15) 02/19/21 07:32 Urine Color Cassandra (Yellow) 02/18/21 Unknown Urine Turbidity Cloudy (Clear) 02/18/21 Unknown Urine pH 5.0 (5.0-7.0) 02/18/21 Unknown Ur Specific [place] 1.027 (1.003-1.030) 02/18/21 Unknown Urine Protein 100 mg/dl mg/dL (Negative) 02/18/21 Unknown Urine Glucose (UA) Neg mg/dL (Negative) 02/18/21 Unknown Urine Ketones Neg mg/dL (Negative) 02/18/21 Unknown Urine Blood Neg (Negative) 02/18/21 Unknown Urine Nitrite Neg (Negative) 02/18/21 Unknown Urine Bilirubin Neg (Negative) 02/18/21 Unknown Urine Urobilinogen < 2.0 mg/dL (<2.0) 02/18/21 Unknown Ur Leukocyte Esterase Neg (Negative) 02/18/21 Unknown Urine WBC (Auto) 7.0 /HPF (0.0-6.0) H 02/18/21 Unknown Urine RBC (Auto) 4.0 /HPF (0.0-6.0) 02/18/21 Unknown U Epithel Cells (Auto) 3.0 /HPF (0-13.0) 02/18/21 Unknown Urine Mucus 2+ /HPF 02/18/21 Unknown Coronavirus (PCR) Positive (Negative) A 02/18/21 Unknown Head/IV: Voiding Method External Female Catheter Active Medications - Current Medications Current Medications: Generic Name Dose Route Start Last Admin Trade Name Freq PRN Reason Stop Dose Admin Acetaminophen 650 mg 02/17/21 23:58 03/02/21 09:45 Acetaminophen 325 Mg Tab PO 650 mg Q4H PRN Administration Pain MILD(1-3)/Fever >100.5/BROWN Amlodipine Besylate 10 mg 02/19/21 10:00 03/05/21 11:30 Amlodipine 10 Mg Tab PO Not Given DAILY [facility] Ascorbic Acid 1,000 mg 02/19/21 10:00 03/05/21 11:29 Ascorbic Acid 500 Mg Tab PO 1,000 mg BID DEISY Administration Cholecalciferol 5,000 unit 02/19/21 10:00 03/05/21 11:29 Cholecalciferol (Vit D3) 5,000 Unit Tab PO 5,000 unit DAILY DEISY Administration Dextrose 50 ml 02/27/21 11:30 Dextrose 50% In Water (25gm) 50 Ml Syringe IV Q30MIN PRN Hypoglycemia Protocol Enoxaparin Sodium 90 mg 02/22/21 10:00 03/05/21 10:56 Enoxaparin 100 Mg/1 Ml Inj 1 mg/kg (90 mg) 90 mg SUB-Q Administration Q12HR [facility] Protocol Famotidine 20 mg 03/05/21 10:00 03/05/21 10:56 Famotidine 20 Mg/2 Ml Inj IV 20 mg BID DEISY Administration Fentanyl 50 mcg 03/05/21 09:38 Fentanyl 100 Mcg/2 Ml Inj IV Q10MIN PRN ANALGESIA Furosemide 40 mg 02/18/21 08:00 03/05/21 10:00 Furosemide 40 Mg/4 Ml Inj IV 40 mg 0800 [facility] Administration Gabapentin 400 mg 02/19/21 04:00 03/05/21 11:29 Gabapentin 400 Mg Cap PO 400 mg BID [facility] Administration Hydrophilic Ointment 1 applic 03/05/21 09:39 Lip Therapy Vaseline TP Q2HR PRN Dry Lips Propofol 1,000 mg in 100 mls @ 2.585 mls/hr 03/05/21 10:00 03/05/21 10:35 Diprivan 10 Mg/Ml IV 50 mcg/kg/min TITR DEISY 25.855 mls/hr Titration Protocol 5 MCG/KG/MIN Fentanyl Citrate 2,000 mcg in 100 mls @ 4.309 mls/hr 03/05/21 10:00 03/05/21 10:50 Fentanyl Drip Premix IV 4 mcg/kg/hr TITR DEISY 17.237 mls/hr Titration Protocol 1 MCG/KG/HR Midazolam HCl 100 mg/ Sodium 100 mls @ 1 mls/hr 03/05/21 11:00 03/05/21 10:57 Chloride IV 1 mg/hr TITR DEISY 1 mls/hr Administration Protocol 1 MG/HR NORepinephrine/NS 8 MG-250 ML 8 mg in 250 mls @ 3.75 mls/hr 03/05/21 10:15 03/05/21 11:43 Norepinephrine/Ns 8 Mg-250 Ml (Double Conc) IV 4 mcg/min TITRATE DEISY 7.5 mls/hr Titration Protocol 2 MCG/MIN Insulin Glargine 10 units 03/02/21 22:00 03/04/21 23:38 Insulin Glargine 100 Units/Ml SUB-Q Not Given QHS [facility] Insulin Human Lispro 0 unit 02/27/21 11:30 03/05/21 08:48 Insulin Lispro 100 Unit/Ml SUB-Q Not Given ACHS [facility] Protocol Midazolam HCl 2 mg 03/05/21 10:11 03/05/21 10:53 Midazolam 2 Mg/2 Ml Inj IV 2 mg Q10MIN PRN Administration Sedation Multi-Ingred Cream/Lotion/Oil/Oint 1 applic 01/18/22 09:39 Mineral Oil/Petrolatum, White Ophth Oint 3.5 Gm OU Q4HR PRN Dry Eye(s) Ondansetron HCl 4 mg 02/17/21 23:58 Ondansetron 4 Mg/2 Ml Inj IV Q8H PRN Nausea And Vomiting Senna/Docusate Sodium 1 tab 03/05/21 10:00 03/05/21 11:29 Sennosides/Docusate Sodium 8.6/50 Mg Tab FEEDTUBE 1 tab BID DEISY Administration Sertraline HCl 50 mg 02/19/21 10:00 03/05/21 11:29 Sertraline 50 Mg Tab PO 50 mg QDAY DEISY Administration Sodium Chloride 10 ml 02/18/21 10:00 03/05/21 10:57 Sodium Chloride 0.9% 10 Ml Flush Syringe IV 10 ml BID DEISY Administration Sodium Chloride 10 ml 02/17/21 23:58 Sodium Chloride 0.9% 10 Ml Flush Syringe IV PRN PRN LINE FLUSH Zinc Sulfate 220 mg 02/19/21 10:00 03/05/21 11:29 Zinc Sulfate 220 Mg Cap PO 220 mg QDAY DEISY Administration Nutrition/Malnutrition Assess - Dietary Evaluation Nutrition/Malnutrition Findings: Nutrition Notes Start: 02/25/21 16:10 Freq: Status: Active Protocol: Document 03/04/21 14:02 PARDEEP (Rec: 03/04/21 14:15 PARDEEP [email or web address]) Nutrition Notes Initial or Follow up Reassessment Current Diagnosis Diabetes,Hypertension, Respiratory Failure Other Pertinent Diagnosis COVID-19 pneu, SIRS Current Diet Cardiac Labs/Tests Reviewed Pertinent Medications Reviewed Height 5 ft 6 in Weight 86.183 kg [place] Body Weight (kg) 59.09 BMI 30.7 Weight Status Obese Subjective/Other Information Pt remains on BiPap support; pt consents to intubation if necessary. Per RN, pt eats, but desaturates quickly when off BiPap. She has consumed 67% of meals since last assessment. Percent of energy/protein needs met: 86% energy 61% pro Burn Absent Trauma Absent Minimum of two criteria No #1 Nutrition Diagnosis Inadequate protein intake Etiology ROSANNE As Evidenced by Signs and Symptoms PO intake meeting <75% of estimated pro needs Is patient on ventilator? No Is Patient Ambulatory and/or Out of Bed No REE-([facility]-confined to bed) 1737.120 Calculation Used for Recommendations 70-80% energy needs Additional Notes Energy needs: 1216-1390kcal/ day Pro needs 1.3g/kg adjBW: 94g/ day Fluid needs 1ml/kcal Nutrition Intervention Change Diet Order: Continue current diet order Add Supplement/Snack (indicate name/kcal Ensure High Protein once daily /protein ) Provides kCal: 160 Provides Protein (gm) 16 Goal #1 PO intake of meals plus ONS to meet at least 75% energy and pro needs Anticipated Discharge Needs: None identified at this time Follow-Up By: 03/08/21 Additional Comments F/U: intakes (meals/ONS), resp status
[2021-03-05 12:48] LABS: ABG Base Excess 1.6 mmol/L (-2.0-3.0); ABG HCO3 32.8 mmol/L (20.0-26.0); ABG Methemoglobin 0.8 % (0.0-1.5); ABG Oxygen Saturation 73.6 % (95.0-99.0); ABG PCO2 80.9 mm Hg; ABG PH 7.226 pH Units (7.350-7.450); ABG PO2 50.5 mm Hg (80.0-90.0)
[2021-03-05] MEDS ORDERED: POTASSIUM CHLORIDE 20 MEQ PACKET FEEDTUBE SCH (15:00)
--- NOTE | 2021-03-05 15:57 | Progress Note ---
Assessment and Plan 61 y/o female with acute respiratory failure secondary to COVID 19 pneumonia. 03/05/21: Added versed drip to fent and Diprovan to keep RASS at -4. Will also order precedex in the event it is needed. Repeat ABG somewhat improved but incr eased RR. Must watch Peak Pressures. attempting to do low lung volume protective ventilator strategy. Patient has actually been off steroids for some time. Will not restart as of yet. Unable to prone. Guarded prognosis. This discussion was had over the weekend with the daughter when I thought we would have to intubate then. Explained that vent is not therapy but only something to give her lungs time to rest, if possible to see if they can recover. Prognosis is very guarded to poor. 03/04/21: Continue supportive care between HFNC and bipap therapy. Steroids. Positive reinforcement. 03/03/21: Long discussion at bedside with patient. Today she stated that she did not want to be intubated. I attempted to call her daughter while I was in the room with the patient but no answer. She will remain full code as she has said this in the past and then revoked after speaking with the daughter ( which is why i called her again this morning). Continue bipap and monitor. Guarded prognosis. 03/02/21: Prone if able. Continue steroids. Negative fluid balance if possible. Prognosis remains very guarded 02/28/21: Prone. Steroids. Net negative fluid balance if possible. Guarded prognosis. 02/27/21: Full code status. Prone as much as possible during the day and sleep prone at night. Patient may require intubation ultimately. Guarded prognosis. 02/26/21: Prone if possible. Continue anticoagulation for DVT. Steroids. Net negative fluid balance. 02/25/21: Long discussion at bedside with patient, whom per her, she has discussed this with her daughter. She does no want an endotracheal tube. She does not want chest compression and she does not want shocks. I did not ask about vasopressors. The patient is awake and alert and oriented. This needs to be addressed by primary team as well an if confirmed, I have no problem with cosigning AND order. Continue supportive measures for now. Guarded to poor prognosis. 02/21/21: BNP normal. Still would attempt to achieve net negative fluid balance daily. Continue Remdesivir and steroids. Prone if patient willing. Follow up CTA results. Discussed with IMS, may change anticoagulation but awaiting official ready on CTA. Guareded prognosis. 02/20/21: Follow up CTA results. Will send BNP. Continue steroids and Remdesivir. Guarded prognosis. Prone if able, very pertinent to do this. 1. self proning as tolerated during the day and prone at night while sleeping 2. Steroids and Remdesivir 3. Daily net negative volume state 4. Consider checking BNP and echo to make sure no edema on this film 5. Agree with empiric anticoagulation given elevated D-Dimer Guarded prognosis. Will continue to follow. Subjective Date of service: 03/05/21 Principal diagnosis: COVID pneumonia Interval history: Called by RT this am for worsening hypoxemia after patient had refused bipap therapy all night and this am. Satting in the 60's per report. Asked staff to alert the daughter and to ask anesthesia if they would intubated. Very difficult to sedate post intubation but now adequately sedated with better sats. Objective Vital Signs - 12hr 03/05/21 03/05/21 03/05/21 04:00 04:30 04:45 Temperature 98.6 F Pulse Rate 103 H 101 H 100 H Pulse Rate [ 103 H From Monitor] Respiratory 24 24 Rate Blood Pressure 99/65 99/65 O2 Sat by Pulse 69 L 68 L Oximetry 03/05/21 03/05/21 03/05/21 05:00 05:30 06:00 Temperature Pulse Rate 102 H 104 H 105 H Pulse Rate [ From Monitor] Respiratory 24 26 H 28 H Rate Blood Pressure 104/68 104/68 103/61 O2 Sat by Pulse 71 L 68 L 67 L Oximetry 03/05/21 03/05/21 03/05/21 06:30 07:00 07:30 Temperature Pulse Rate 108 H 101 H 105 H Pulse Rate [ From Monitor] Respiratory 30 H 20 25 H Rate Blood Pressure 103/61 103/61 119/85 O2 Sat by Pulse 67 L 69 L 70 L Oximetry 03/05/21 03/05/21 03/05/21 08:00 08:30 09:00 Temperature 98.7 F Pulse Rate 115 H 119 H 109 H Pulse Rate [ 120 H From Monitor] Respiratory 29 H 31 H 29 H Rate Blood Pressure 100/70 100/70 103/71 O2 Sat by Pulse 71 L 63 L 73 L Oximetry 03/05/21 03/05/21 03/05/21 09:30 10:00 10:30 Temperature Pulse Rate 119 H 132 H 105 H Pulse Rate [ From Monitor] Respiratory 16 31 H 31 H Rate Blood Pressure 141/104 96/66 113/62 O2 Sat by Pulse 64 L 66 L 67 L Oximetry 03/05/21 03/05/21 03/05/21 11:00 11:30 12:00 Temperature 98.6 F Pulse Rate 101 H 100 H 96 H Pulse Rate [ From Monitor] Respiratory 26 H 20 16 Rate Blood Pressure 102/61 83/59 100/63 O2 Sat by Pulse 75 L 73 L 75 L Oximetry 03/05/21 03/05/21 03/05/21 12:26 12:30 13:00 Temperature Pulse Rate 99 H 99 H 100 H Pulse Rate [ From Monitor] Respiratory 15 10 L Rate Blood Pressure 102/67 111/68 104/74 O2 Sat by Pulse 78 L 78 L 83 L Oximetry 03/05/21 03/05/21 03/05/21 13:30 14:00 14:30 Temperature Pulse Rate 102 H 102 H 102 H Pulse Rate [ From Monitor] Respiratory 9 L 9 L 10 L Rate Blood Pressure 94/71 103/65 101/72 O2 Sat by Pulse 86 88 87 Oximetry Constitutional: alert, other (on hiflo) ENT: oropharynx moist Neck: supple Ascultation: Bilateral: diminished breath sounds Cardiovascular: regular rate and rhythm Gastrointestinal: normoactive bowel sounds, soft, non-tender, non-distended Integumentary: normal Extremities: no cyanosis CBC and BMP: 03/05/21 10:10 03/05/21 10:10 ABG, PT/INR, D-dimer: ABG ABG pH 7.226 pH Units (7.350-7.450) L 03/05/21 12:23 ABG pCO2 80.9 mm Hg 03/05/21 12:23 ABG pO2 50.5 mm Hg (80.0-90.0) L 03/05/21 12:23 ABG O2 Saturation 73.6 % (95.0-99.0) L 03/05/21 12:23 PT/INR, D-dimer PT 13.9 Sec. (12.2-14.9) 02/17/21 14:34 INR 0.96 (0.87-1.13) 02/17/21 14:34 D-Dimer 3469.99 ng/mlDDU (0-234) H 03/01/21 05:12 Abnormal lab findings: Abnormal Labs 02/17/21 02/17/21 02/17/21 14:34 14:34 14:34 WBC 11.7 H RBC Hgb Hct 44.9 H RDW 15.6 H Plt Count Seg Neuts % (Manual) Lymphocytes % (Manual) 9.0 L Monocytes % (Manual) 12.0 H Seg Neutrophils # Man 8.2 H Lymphocytes # (Manual) 1.1 L Monocytes # (Manual) 1.4 H D-Dimer ABG pH ABG pO2 ABG HCO3 ABG O2 Saturation ABG Base Excess ABG Hemoglobin Oxyhemoglobin Sodium Potassium 3.5 L Chloride BUN 27 H Creatinine Glucose 150 H POC Glucose Lactic Acid 2.90 H* Ferritin AST Lactate Dehydrogenase C-Reactive Protein NT-Pro-B Natriuret Pep Albumin Urine WBC (Auto) Coronavirus (PCR) 02/17/21 02/18/21 02/18/21 14:34 07:48 07:48 WBC 12.0 H RBC Hgb Hct RDW 15.4 H Plt Count Seg Neuts % (Manual) 76.0 H Lymphocytes % (Manual) Monocytes % (Manual) Seg Neutrophils # Man 9.1 H Lymphocytes # (Manual) Monocytes # (Manual) D-Dimer ABG pH ABG pO2 ABG HCO3 ABG O2 Saturation ABG Base Excess ABG Hemoglobin Oxyhemoglobin Sodium Potassium Chloride BUN 36 H Creatinine Glucose 133 H POC Glucose Lactic Acid Ferritin AST 57 H Lactate Dehydrogenase C-Reactive Protein NT-Pro-B Natriuret Pep 1619 H Albumin 3.3 L Urine WBC (Auto) Coronavirus (PCR) 02/18/21 02/18/21 02/19/21 Unknown Unknown 07:32 WBC RBC Hgb Hct RDW Plt Count Seg Neuts % (Manual) Lymphocytes % (Manual) Monocytes % (Manual) Seg Neutrophils # Man Lymphocytes # (Manual) Monocytes # (Manual) D-Dimer ABG pH ABG pO2 ABG HCO3 ABG O2 Saturation ABG Base Excess ABG Hemoglobin Oxyhemoglobin Sodium 148 H D Potassium Chloride BUN 41 H Creatinine Glucose 123 H POC Glucose Lactic Acid Ferritin AST 57 H Lactate Dehydrogenase C-Reactive Protein NT-Pro-B Natriuret Pep Albumin 3.7 L Urine WBC (Auto) 7.0 H Coronavirus (PCR) Positive A 02/19/21 02/19/21 02/20/21 07:32 08:43 05:00 WBC RBC Hgb Hct RDW Plt Count Seg Neuts % (Manual) Lymphocytes % (Manual) Monocytes % (Manual) Seg Neutrophils # Man Lymphocytes # (Manual) Monocytes # (Manual) D-Dimer > 18921 H ABG pH ABG pO2 ABG HCO3 ABG O2 Saturation ABG Base Excess ABG Hemoglobin Oxyhemoglobin Sodium 147 H Potassium Chloride 107.6 H BUN 36 H Creatinine Glucose POC Glucose Lactic Acid Ferritin AST Lactate Dehydrogenase C-Reactive Protein 10.90 H NT-Pro-B Natriuret Pep Albumin 3.3 L Urine WBC (Auto) Coronavirus (PCR) 02/20/21 02/21/21 02/21/21 18:46 04:44 04:44 WBC 16.7 H RBC Hgb Hct RDW Plt Count Seg Neuts % (Manual) Lymphocytes % (Manual) Monocytes % (Manual) Seg Neutrophils # Man Lymphocytes # (Manual) Monocytes # (Manual) D-Dimer ABG pH 7.453 H ABG pO2 55.0 L ABG HCO3 26.6 H ABG O2 Saturation 88.3 L ABG Base Excess ABG Hemoglobin Oxyhemoglobin 86.8 L Sodium Potassium Chloride BUN 26 H Creatinine Glucose 111 H POC Glucose Lactic Acid Ferritin AST Lactate Dehydrogenase C-Reactive Protein NT-Pro-B Natriuret Pep Albumin 3.4 L Urine WBC (Auto) Coronavirus (PCR) 02/22/21 02/23/21 02/23/21 04:47 09:05 09:05 WBC 19.3 H RBC 5.29 H Hgb 15.2 H Hct 47.7 H D RDW Plt Count Seg Neuts % (Manual) 82.0 H Lymphocytes % (Manual) 6.0 L Monocytes % (Manual) Seg Neutrophils # Man 15.8 H Lymphocytes # (Manual) Monocytes # (Manual) 1.0 H D-Dimer ABG pH ABG pO2 ABG HCO3 ABG O2 Saturation ABG Base Excess ABG Hemoglobin Oxyhemoglobin Sodium Potassium Chloride BUN 25 H 27 H Creatinine Glucose 125 H POC Glucose Lactic Acid Ferritin AST Lactate Dehydrogenase C-Reactive Protein NT-Pro-B Natriuret Pep Albumin 3.3 L Urine WBC (Auto) Coronavirus (PCR) 02/23/21 02/23/21 02/24/21 11:33 16:24 04:50 WBC 14.8 H RBC Hgb Hct RDW Plt Count Seg Neuts % (Manual) Lymphocytes % (Manual) Monocytes % (Manual) Seg Neutrophils # Man Lymphocytes # (Manual) Monocytes # (Manual) D-Dimer ABG pH ABG pO2 ABG HCO3 ABG O2 Saturation ABG Base Excess ABG Hemoglobin Oxyhemoglobin Sodium Potassium Chloride BUN Creatinine Glucose POC Glucose 117 H 163 H Lactic Acid Ferritin AST Lactate Dehydrogenase C-Reactive Protein NT-Pro-B Natriuret Pep Albumin Urine WBC (Auto) Coronavirus (PCR) 02/24/21 02/25/21 02/27/21 04:50 21:12 04:57 WBC 17.0 H RBC Hgb Hct 43.4 H RDW Plt Count Seg Neuts % (Manual) 84.0 H Lymphocytes % (Manual) 4.0 L Monocytes % (Manual) Seg Neutrophils # Man 14.3 H Lymphocytes # (Manual) 0.7 L Monocytes # (Manual) 0.9 H D-Dimer ABG pH ABG pO2 ABG HCO3 ABG O2 Saturation ABG Base Excess ABG Hemoglobin Oxyhemoglobin Sodium Potassium Chloride BUN 23 H Creatinine Glucose POC Glucose 175 H Lactic Acid Ferritin AST Lactate Dehydrogenase C-Reactive Protein NT-Pro-B Natriuret Pep Albumin Urine WBC (Auto) Coronavirus (PCR) 02/27/21 02/27/21 02/27/21 04:57 04:57 04:57 WBC RBC Hgb Hct RDW Plt Count Seg Neuts % (Manual) Lymphocytes % (Manual) Monocytes % (Manual) Seg Neutrophils # Man Lymphocytes # (Manual) Monocytes # (Manual) D-Dimer 5013.37 H ABG pH ABG pO2 ABG HCO3 ABG O2 Saturation ABG Base Excess ABG Hemoglobin Oxyhemoglobin Sodium Potassium Chloride BUN 23 H Creatinine 0.5 L Glucose 113 H POC Glucose Lactic Acid Ferritin 1272.0 H AST Lactate Dehydrogenase 438 H C-Reactive Protein 5.80 H NT-Pro-B Natriuret Pep Albumin Urine WBC (Auto) Coronavirus (PCR) 02/27/21 02/27/21 02/28/21 17:53 21:12 07:40 WBC RBC Hgb Hct RDW Plt Count Seg Neuts % (Manual) Lymphocytes % (Manual) Monocytes % (Manual) Seg Neutrophils # Man Lymphocytes # (Manual) Monocytes # (Manual) D-Dimer ABG pH ABG pO2 ABG HCO3 ABG O2 Saturation ABG Base Excess ABG Hemoglobin Oxyhemoglobin Sodium Potassium Chloride BUN Creatinine Glucose POC Glucose 159 H 112 H 123 H Lactic Acid Ferritin AST Lactate Dehydrogenase C-Reactive Protein NT-Pro-B Natriuret Pep Albumin Urine WBC (Auto) Coronavirus (PCR) 02/28/21 02/28/21 02/28/21 11:42 16:20 22:26 WBC RBC Hgb Hct RDW Plt Count Seg Neuts % (Manual) Lymphocytes % (Manual) Monocytes % (Manual) Seg Neutrophils # Man Lymphocytes # (Manual) Monocytes # (Manual) D-Dimer ABG pH ABG pO2 ABG HCO3 ABG O2 Saturation ABG Base Excess ABG Hemoglobin Oxyhemoglobin Sodium Potassium Chloride BUN Creatinine Glucose POC Glucose 112 H 138 H 129 H Lactic Acid Ferritin AST Lactate Dehydrogenase C-Reactive Protein NT-Pro-B Natriuret Pep Albumin Urine WBC (Auto) Coronavirus (PCR) 03/01/21 03/01/21 03/01/21 05:12 05:12 05:12 WBC 15.0 H RBC 5.05 H Hgb Hct 44.7 H RDW Plt Count Seg Neuts % (Manual) 71.0 H Lymphocytes % (Manual) 11.0 L Monocytes % (Manual) 12.0 H Seg Neutrophils # Man 10.7 H Lymphocytes # (Manual) Monocytes # (Manual) 1.8 H D-Dimer 3469.99 H ABG pH ABG pO2 ABG HCO3 ABG O2 Saturation ABG Base Excess ABG Hemoglobin Oxyhemoglobin Sodium Potassium Chloride 97.3 L BUN Creatinine 0.5 L Glucose 115 H POC Glucose Lactic Acid Ferritin AST Lactate Dehydrogenase 385 H C-Reactive Protein 11.20 H NT-Pro-B Natriuret Pep Albumin 2.8 L Urine WBC (Auto) Coronavirus (PCR) 03/01/21 03/01/21 03/01/21 05:12 07:30 11:42 WBC RBC Hgb Hct RDW Plt Count Seg Neuts % (Manual) Lymphocytes % (Manual) Monocytes % (Manual) Seg Neutrophils # Man Lymphocytes # (Manual) Monocytes # (Manual) D-Dimer ABG pH ABG pO2 ABG HCO3 ABG O2 Saturation ABG Base Excess ABG Hemoglobin Oxyhemoglobin Sodium Potassium Chloride BUN Creatinine Glucose POC Glucose 130 H 143 H Lactic Acid Ferritin 1526.0 H AST Lactate Dehydrogenase C-Reactive Protein NT-Pro-B Natriuret Pep Albumin Urine WBC (Auto) Coronavirus (PCR) 03/01/21 03/01/21 03/01/21 15:28 17:53 21:16 WBC RBC Hgb Hct RDW Plt Count Seg Neuts % (Manual) Lymphocytes % (Manual) Monocytes % (Manual) Seg Neutrophils # Man Lymphocytes # (Manual) Monocytes # (Manual) D-Dimer ABG pH ABG pO2 ABG HCO3 ABG O2 Saturation ABG Base Excess ABG Hemoglobin Oxyhemoglobin Sodium Potassium Chloride BUN Creatinine Glucose POC Glucose 138 H 120 H 157 H Lactic Acid Ferritin AST Lactate Dehydrogenase C-Reactive Protein NT-Pro-B Natriuret Pep Albumin Urine WBC (Auto) Coronavirus (PCR) 03/01/21 03/02/21 03/02/21 22:07 07:44 11:40 WBC RBC Hgb Hct RDW Plt Count Seg Neuts % (Manual) Lymphocytes % (Manual) Monocytes % (Manual) Seg Neutrophils # Man Lymphocytes # (Manual) Monocytes # (Manual) D-Dimer ABG pH ABG pO2 35.9 L* ABG HCO3 31.2 H ABG O2 Saturation 68.0 L ABG Base Excess 6.1 H ABG Hemoglobin Oxyhemoglobin 66.1 L Sodium Potassium Chloride BUN Creatinine Glucose POC Glucose 125 H 203 H Lactic Acid Ferritin AST Lactate Dehydrogenase C-Reactive Protein NT-Pro-B Natriuret Pep Albumin Urine WBC (Auto) Coronavirus (PCR) 03/02/21 03/02/21 03/02/21 12:13 13:00 17:15 WBC RBC Hgb Hct RDW Plt Count Seg Neuts % (Manual) Lymphocytes % (Manual) Monocytes % (Manual) Seg Neutrophils # Man Lymphocytes # (Manual) Monocytes # (Manual) D-Dimer ABG pH ABG pO2 36.0 L* ABG HCO3 29.5 H ABG O2 Saturation 68.7 L ABG Base Excess 4.7 H ABG Hemoglobin Oxyhemoglobin 66.8 L Sodium Potassium Chloride BUN Creatinine Glucose POC Glucose 130 H 126 H Lactic Acid Ferritin AST Lactate Dehydrogenase C-Reactive Protein NT-Pro-B Natriuret Pep Albumin Urine WBC (Auto) Coronavirus (PCR) 03/02/21 03/03/21 03/03/21 21:45 08:02 10:05 WBC 19.2 H RBC Hgb Hct 44.9 H RDW Plt Count Seg Neuts % (Manual) 85.0 H Lymphocytes % (Manual) 7.0 L Monocytes % (Manual) Seg Neutrophils # Man 16.3 H Lymphocytes # (Manual) Monocytes # (Manual) 1.2 H D-Dimer ABG pH ABG pO2 ABG HCO3 ABG O2 Saturation ABG Base Excess ABG Hemoglobin Oxyhemoglobin Sodium Potassium Chloride BUN Creatinine Glucose POC Glucose 113 H 128 H Lactic Acid Ferritin AST Lactate Dehydrogenase C-Reactive Protein NT-Pro-B Natriuret Pep Albumin Urine WBC (Auto) Coronavirus (PCR) 03/03/21 03/03/21 03/03/21 10:05 12:45 16:31 WBC RBC Hgb Hct RDW Plt Count Seg Neuts % (Manual) Lymphocytes % (Manual) Monocytes % (Manual) Seg Neutrophils # Man Lymphocytes # (Manual) Monocytes # (Manual) D-Dimer ABG pH ABG pO2 47.7 L ABG HCO3 31.5 H ABG O2 Saturation 82.5 L ABG Base Excess 5.6 H ABG Hemoglobin Oxyhemoglobin 80.4 L Sodium Potassium Chloride 97.8 L BUN 23 H Creatinine Glucose 141 H POC Glucose 126 H Lactic Acid Ferritin AST Lactate Dehydrogenase C-Reactive Protein NT-Pro-B Natriuret Pep Albumin 3.2 L Urine WBC (Auto) Coronavirus (PCR) 03/03/21 03/04/21 03/04/21 20:52 07:24 11:04 WBC RBC Hgb Hct RDW Plt Count Seg Neuts % (Manual) Lymphocytes % (Manual) Monocytes % (Manual) Seg Neutrophils # Man Lymphocytes # (Manual) Monocytes # (Manual) D-Dimer ABG pH ABG pO2 ABG HCO3 ABG O2 Saturation ABG Base Excess ABG Hemoglobin Oxyhemoglobin Sodium Potassium Chloride BUN Creatinine Glucose POC Glucose 152 H 126 H 142 H Lactic Acid Ferritin AST Lactate Dehydrogenase C-Reactive Protein NT-Pro-B Natriuret Pep Albumin Urine WBC (Auto) Coronavirus (PCR) 03/04/21 03/04/21 03/04/21 11:05 15:33 21:12 WBC RBC Hgb Hct RDW Plt Count Seg Neuts % (Manual) Lymphocytes % (Manual) Monocytes % (Manual) Seg Neutrophils # Man Lymphocytes # (Manual) Monocytes # (Manual) D-Dimer ABG pH ABG pO2 ABG HCO3 ABG O2 Saturation ABG Base Excess ABG Hemoglobin Oxyhemoglobin Sodium Potassium Chloride BUN 34 H Creatinine Glucose 143 H POC Glucose 114 H 180 H Lactic Acid Ferritin AST Lactate Dehydrogenase C-Reactive Protein NT-Pro-B Natriuret Pep Albumin Urine WBC (Auto) Coronavirus (PCR) 03/04/21 03/05/21 03/05/21 21:30 07:51 10:10 WBC 17.8 H RBC Hgb 14.5 H Hct 45.8 H RDW 15.3 H Plt Count 446 H Seg Neuts % (Manual) 77.0 H Lymphocytes % (Manual) 12.0 L Monocytes % (Manual) Seg Neutrophils # Man 13.7 H Lymphocytes # (Manual) Monocytes # (Manual) 0.9 H D-Dimer ABG pH 7.473 H ABG pO2 34.1 L* ABG HCO3 29.7 H ABG O2 Saturation 66.4 L ABG Base Excess 5.6 H ABG Hemoglobin Oxyhemoglobin 64.9 L Sodium Potassium Chloride BUN Creatinine Glucose POC Glucose 144 H Lactic Acid Ferritin AST Lactate Dehydrogenase C-Reactive Protein NT-Pro-B Natriuret Pep Albumin Urine WBC (Auto) Coronavirus (PCR) 03/05/21 03/05/21 03/05/21 10:10 11:41 12:23 WBC RBC Hgb Hct RDW Plt Count Seg Neuts % (Manual) Lymphocytes % (Manual) Monocytes % (Manual) Seg Neutrophils # Man Lymphocytes # (Manual) Monocytes # (Manual) D-Dimer ABG pH 7.226 L ABG pO2 50.5 L ABG HCO3 32.8 H ABG O2 Saturation 73.6 L ABG Base Excess ABG Hemoglobin 18.2 H Oxyhemoglobin 71.8 L Sodium Potassium 3.5 L Chloride BUN 51 H Creatinine Glucose 217 H POC Glucose 124 H Lactic Acid Ferritin AST Lactate Dehydrogenase C-Reactive Protein NT-Pro-B Natriuret Pep Albumin 3.1 L Urine WBC (Auto) Coronavirus (PCR)
[2021-03-05] MEDS: INSULIN GLARGINE 100 UNITS/ML SUB-Q SCH (22:41)
[2021-03-06] MEDS: INSULIN LISPRO 100 UNIT/ML SUB-Q SCH ×4 (00:47→17:17)
[2021-03-06] MEDS: fentaNYL DRIP Premix 2,000 MCG/100 ML BAG IV SCH ×4 (02:08→22:31)
[2021-03-06] MEDS: NORepinephrine/NS 8 MG-250 ML 8 MG/250 ML INFUS..BTL IV SCH ×4 (04:00→23:41)
[2021-03-06 05:00] LABS: ABG HCO3 33.8 mmol/L (20.0-26.0); ABG Methemoglobin 0.7 % (0.0-1.5); ABG Oxygen Saturation 92.5 % (95.0-99.0); ABG PCO2 131.3 mm Hg; ABG PO2 87.8 mm Hg (80.0-90.0)
[2021-03-06 05:14] LABS: ABG PH 7.028 pH Units (7.350-7.450)
[2021-03-06] MEDS ORDERED: SODIUM BICARB 8.4% 50 MEQ/50 ML SYRINGE IV ONE (05:23)
[2021-03-06] MEDS: VASOPRESSIN 20 UNIT in SODIUM CHLORIDE 0.9% 100 ML IV SCH ×2 (05:59→16:04)
[2021-03-06 07:00] LABS: Mean Corpuscular HGB Conc 30 % (30-34); Mean Corpuscular Volume 92 fl (79-97); Platelet Count 346 K/mm3 (140-440); Red Blood Count 4.15 M/mm3 (3.65-5.03); Red Cell Distribution Width 15.3 % (13.2-15.2)
[2021-03-06 07:02] LABS: Calcium 7.7 mg/dL (8.4-10.2)
[2021-03-06 07:08] LABS: Hematocrit 38.1 % (30.3-42.9); Hemoglobin 11.5 gm/dl (10.1-14.3)
[2021-03-06] MEDS: SERTRALINE 50 MG TAB PO SCH (09:10)
[2021-03-06] MEDS: GABAPENTIN 400 MG CAP PO SCH ×2 (09:10→22:33)
[2021-03-06] MEDS: SENNOSIDES/DOCUSATE SODIUM 8.6/50 MG TAB FEEDTUBE SCH ×2 (09:10→22:33)
[2021-03-06] MEDS: FAMOTIDINE 20 MG/2 ML INJ IV SCH ×2 (09:20→22:32)
[2021-03-06] MEDS: FREE WATER PO SCH ×4 (09:21→22:33)
[2021-03-06] MEDS: ENOXAPARIN 100 MG/1 ML INJ SUB-Q SCH (09:21)
[2021-03-06] MEDS ORDERED: SODIUM CHLORIDE 0.9% 500 ML 500 ML ONE (11:06)
[2021-03-06 11:13] LABS: ABG Base Excess 1.4 mmol/L (-2.0-3.0); ABG HCO3 31.3 mmol/L (20.0-26.0); ABG Methemoglobin 0.8 % (0.0-1.5); ABG Oxygen Saturation 91.8 % (95.0-99.0); ABG PCO2 72.6 mm Hg; ABG PH 7.253 pH Units (7.350-7.450); ABG PO2 66.5 mm Hg (80.0-90.0)
[2021-03-06] MEDS ORDERED: LACTATED RINGERS 1,000 ML ONE (13:10)
[2021-03-06] MEDS ORDERED: LACTATED RINGERS 1,000 ML IV SCH (13:15)
[2021-03-06] MEDS: MIDAZOLAM 100 MG in SODIUM CHLORIDE 0.9% 80 ML IV SCH (13:18)
[2021-03-06 13:53] LABS: Creatinine,Urine 247.7 mg/dL (0.1-20.0)
--- NOTE | 2021-03-06 14:26 | Progress Note ---
<NATY MCELROY - Last Filed: 03/07/21 13:55> Assessment and Plan Assessment and plan: This is a 61-year-old female with past medical history of HTN, DM, and DVT on Eliquis at home admitted for acute hypoxic Respiratory failure 2/2 COVID pneumonia now on ventilatory support. Hospital Course to Date: 02/19/2020 Patient on 50% Ventimask Covid positive Continue steroids May DC antibiotics Respiratory assessment and treatment 02/19: Patient still hypoxic, encourage prone positioning, Pulmonary and ID consult. Will obtain CTA chest to evaluate for PE. Continue steroid therapy and oxygen therapy wean as tolerated. Continuous pulse oximeter. Plan discussed with the patient. 02/20: Patient seen and examined, remains on NRBM. awaiting CT CHEST WITH ANGIO Ordered yesterday. Encourage proning the patient says she was not proned yesterday discussed with nursing staff. Continue steroid therapy and remdesivir. Patient was seen by ID and as documented by ID"She is a candidate for Actemra based on CRp and O2 requirements. unfortunately we have not been getting procalcitonin results. -ordered Actemra once (afebrile, white count only mildly elevated in the setting of steroids)" Discussed plan of care with the nurse. Also called to updated the patients sister listed as NOK but got voice mail 02/21: Continue steroids, remdesivir, patient received 1 dose of Actemra but unable to get the second dose due to availability. CTA showed dense consolidation but no effusion and no pulmonary embolism patient does have a lower extremity DVT. Eliquis continues at full dose of 5 mg twice daily we will continue to monitor closely. Prognosis is guarded counseling for compliance for 15 minutes. 02/22: Patient clinically not improving much of switch the patient to Lovenox. Prognosis remains guarded. Continue anticoagulation due to DVT still suspicious of pulmonary embolism as a result we will obtain echocardiogram and vascular consult per pulmonary request which I agree with. I will also transfer the patient to stepdown unit for closer monitoring. 02/23: Vascular input noted agree the patient has subsegmental bibasilar pulmonary embolism but not enough to warrant intervention. Does not feel that this is contributing majority to her hypoxia. Nevertheless we will switch patient from Eliquis to Lovenox. Continue current management with remdesivir 02/24: Patient seen and examined, remains on anticoagulation, continue remedsivir and steroids. prone as tolerated, will give additional lasix today. Guarded prognosis. 02/25 A&O x 3, C/O mild cough with mucoid expectorant. Denies CP or shortness of breath. Remains on HFNC. pulmonary note and lab results reviewed 02/26: AOX3, proning on encounter. Encouraged continued movement while in bed and with assistance of care staff. Remains on HFNC. Last day of decadron today. 02/27: Patient encouraged to continue proning and remain active. Discussed with PT to come work with patient to mobilize. Will d/w CM for nursing home placement solution. 02/28: Patient stated she would like to be a full code. Working with CM for LTAC placement. 03/01: Awaiting LTAC placement. Remains full code. Spoke with daughter Meghna who was updated on patient's case. 03/02: Sats in low 80s on hi lfow. Blood gas shows pao2 = 35.9. will start bipap, d/w IMCU RN who will notify RT. repeat abg in 1 hr. Poor prognosis. 03/03; Sats in low 90's on bipap. Repeat abg this AM demosntrates marginal improvement in PaO2. PCCM d/w daughter, patient and her daughter would like intubation should she continue to deteriorate. Prognosis remains poor. 03/04: de-escalated to HFNC 40/100 + venti. Will continue with bipap prn. Continue steroids. Dispo is still LTAC, placement is pending. 03/05: Resipratory distress this morning. Sats 69-70%. subsequently intubated. No w icu level of care. Family wants continue aggressive measures. Will follow [facility] recs. 03/06: Patient with ISH this am probably due to hypotension vs diuretic use, fluid bolus challenge this am. Urine lytes ordered. FWF added for hypernatremia Assessment and Plan #Acute respiratory failure with hypoxia 2/2 COVID Pneumonia #ARSD - Intubated on 03/05 - Vent setting:CMV- 100%,20,30,350 - AM ABG noted - CCM consulted, appreciate recommendations - Continue IV Steroids and Nebs per CCM - VAP bundle addressed - Aspiration precaution HOB above 30 - Sedation for RASS goal 0f -4 - Daily ABG and CXR - Continue SPO2 monitoring for SPO2 goal above 92% #Sepsis #Leukocytosis #Multifocal pneumonia #COVID Pneumonia - Now on pressors, Levo and Vaso - Titrate prerssors for MAP goal above 65 - Patient afebrile, with leukocytosis - Blood culture NGTD, sputum culture pending - Patient completed steroids course - Hold off on IV ABx and IV steroids for now - Continue to F/U on B.cult - Daily CBC monitor #Acute Kidney Injury(ISH) most likely ATN #Hypernatremia - Probably due to hypotension vs diuretic use - Patient was on IV Lasix - Fluid challenge bolus today - FWF - Strict intake and output - Avoid nephrotoxic medications; Renally dose medications - Head in place - Monitor and replace electrolytes as needed - Trend BMP #T2DM (type 2 diabetes mellitus) - SSI Q6hrs - Lantus Qhs - Avoid hypoglycemia #Acute RLE DVT - BLE doppler positive for DVT in right posteroir tibial vein - CTA chest negative PE - Continue AC- Lovenox SubQ The high probability of a clinically significant, sudden or life threatening deterioration of the [multiple] system(s) required my full and direct attention, intervention and personal management. The aggregate critical care time was [60] minutes. This time is in addition to time spent performing reported procedures but includes the following: [X] Data Review and interpretation [X] Patient assessment and monitoring of vital signs [X] Documentation [X] Medication orders and management Disposition Plan: ICU Total Time Spent with Patient (Minutes): 60 History Interval history: Patient seen and examined at the bedside. Intubated and sedated, RASS-4. Remains on 3pressors and on full support on the vent. Hospitalist Physical - Constitutional Vitals: Temp Pulse Resp BP Pulse Ox 98.6 F 88 30 H 99/65 99 03/06/21 12:51 03/06/21 14:00 03/06/21 14:00 03/06/21 14:00 03/06/21 14:00 General appearance: Present: no acute distress, well-nourished, other (Intubated and sedated) - EENT Eyes: Present: PERRL - Respiratory Respiratory effort: normal Respiratory: bilateral: rhonchi - Cardiovascular Rhythm: regular Heart Sounds: Present: S1 & S2 - Extremities Extremities: no ischemia, pulses intact, pulses symmetrical Extremity abnormal: edema - Peripheral Assessment Generalized Edema Type: Non-pitting Edema Degree: 1+ Capillary Refill: < 3 seconds Skin Temperature: Warm Peripheral Pulses: within normal limits - Abdominal General gastrointestinal: soft, non-distended, normal bowel sounds - Integumentary Integumentary: Present: warm, dry - Psychiatric Psychiatric: other (Intubated and sedated) - Neurologic Neurologic: other (Intubated and sedated) - Allied Health Allied health notes reviewed: nursing Results - Labs CBC & Chem 7: 03/07/21 04:05 03/07/21 04:05 Labs: Laboratory Last Values WBC 18.4 K/mm3 (4.5-11.0) H 03/06/21 06:13 RBC 4.15 M/mm3 (3.65-5.03) 03/06/21 06:13 Hgb 11.5 gm/dl (10.1-14.3) D 03/06/21 06:13 Hct 38.1 % (30.3-42.9) D 03/06/21 06:13 MCV 92 fl (79-97) 03/06/21 06:13 MCH 28 pg (28-32) 03/06/21 06:13 MCHC 30 % (30-34) 03/06/21 06:13 RDW 15.3 % (13.2-15.2) H 03/06/21 06:13 Plt Count 346 K/mm3 (140-440) 03/06/21 06:13 Add Manual Diff Complete 03/05/21 10:10 Total Counted 100 03/05/21 10:10 Seg Neuts % (Manual) 77.0 % (40.0-70.0) H 03/05/21 10:10 Band Neutrophils % 3.0 % 03/05/21 10:10 Lymphocytes % (Manual) 12.0 % (13.4-35.0) L 03/05/21 10:10 Reactive Lymphs % (Man) 2.0 % 03/05/21 10:10 Monocytes % (Manual) 5.0 % (0.0-7.3) 03/05/21 10:10 Eosinophils % (Manual) 1.0 % (0.0-4.3) 03/05/21 10:10 Basophils % (Manual) 0 % (0.0-1.8) 03/05/21 10:10 Metamyelocytes % 0 % 03/05/21 10:10 Myelocytes % 0 % 03/05/21 10:10 Promyelocytes % 0 % 03/05/21 10:10 Blast Cells % 0 % 03/05/21 10:10 Nucleated RBC % Not Reportable 03/05/21 10:10 Seg Neutrophils # Man 13.7 K/mm3 (1.8-7.7) H 03/05/21 10:10 Band Neutrophils # 0.5 K/mm3 03/05/21 10:10 Lymphocytes # (Manual) 2.1 K/mm3 (1.2-5.4) 03/05/21 10:10 Abs React Lymphs (Man) 0.4 K/mm3 03/05/21 10:10 Monocytes # (Manual) 0.9 K/mm3 (0.0-0.8) H 03/05/21 10:10 Eosinophils # (Manual) 0.2 K/mm3 (0.0-0.4) 03/05/21 10:10 Basophils # (Manual) 0.0 K/mm3 (0.0-0.1) 03/05/21 10:10 Metamyelocytes # 0.0 K/mm3 03/05/21 10:10 Myelocytes # 0.0 K/mm3 03/05/21 10:10 Promyelocytes # 0.0 K/mm3 03/05/21 10:10 Blast Cells # 0.0 K/mm3 03/05/21 10:10 WBC Morphology Not Reportable 03/05/21 10:10 Hypersegmented Neuts Not Reportable 03/05/21 10:10 Hyposegmented Neuts Not Reportable 03/05/21 10:10 Hypogranular Neuts Not Reportable 03/05/21 10:10 Smudge Cells Not Reportable 03/05/21 10:10 Toxic Granulation Not Reportable 03/05/21 10:10 Toxic Vacuolation Not Reportable 03/05/21 10:10 Dohle Bodies Not Reportable 03/05/21 10:10 Pelger-Huet Anomaly Not Reportable 03/05/21 10:10 Cindy Rods Not Reportable 03/05/21 10:10 Platelet Estimate Consistent w auto 03/05/21 10:10 Clumped Platelets Not Reportable 03/05/21 10:10 Plt Clumps, EDTA Not Reportable 03/05/21 10:10 Large Platelets 1+ 03/05/21 10:10 Giant Platelets Not Reportable 03/05/21 10:10 Platelet Satelliting Not Reportable 03/05/21 10:10 Plt Morphology Comment Not Reportable 03/05/21 10:10 RBC Morphology Not Reportable 03/05/21 10:10 Dimorphic RBCs Not Reportable 03/05/21 10:10 Polychromasia Few 03/05/21 10:10 Hypochromasia Not Reportable 03/05/21 10:10 Poikilocytosis Not Reportable 03/05/21 10:10 Anisocytosis 1+ 03/05/21 10:10 Microcytosis Not Reportable 03/05/21 10:10 Macrocytosis Not Reportable 03/05/21 10:10 Spherocytes Not Reportable 03/05/21 10:10 Pappenheimer Bodies Not Reportable 03/05/21 10:10 Sickle Cells Not Reportable 03/05/21 10:10 Target Cells Not Reportable 03/05/21 10:10 Tear Drop Cells Not Reportable 03/05/21 10:10 Ovalocytes Not Reportable 03/05/21 10:10 Helmet Cells Not Reportable 03/05/21 10:10 [place] Bodies Not Reportable 03/05/21 10:10 [place] Rings Not Reportable 03/05/21 10:10 [place] Cells Not Reportable 03/05/21 10:10 Bite Cells Not Reportable 03/05/21 10:10 Crenated Cell Not Reportable 03/05/21 10:10 Elliptocytes Not Reportable 03/05/21 10:10 Acanthocytes (Spur) Not Reportable 03/05/21 10:10 Rouleaux Not Reportable 03/05/21 10:10 Hemoglobin C Crystals Not Reportable 03/05/21 10:10 Schistocytes Not Reportable 03/05/21 10:10 Malaria parasites Not Reportable 03/05/21 10:10 Pedro Pablo Bodies Not Reportable 03/05/21 10:10 Hem Pathologist Commnt No 03/05/21 10:10 PT 13.9 Sec. (12.2-14.9) 02/17/21 14:34 INR 0.96 (0.87-1.13) 02/17/21 14:34 APTT 26.4 Sec. (24.2-36.6) 02/17/21 14:34 D-Dimer 3469.99 ng/mlDDU (0-234) H 03/01/21 05:12 ABG pH 7.253 pH Units (7.350-7.450) L 03/06/21 Unknown ABG pCO2 72.6 mm Hg 03/06/21 Unknown ABG pO2 66.5 mm Hg (80.0-90.0) L 03/06/21 Unknown ABG HCO3 31.3 mmol/L (20.0-26.0) H 03/06/21 Unknown ABG O2 Saturation 91.8 % (95.0-99.0) L 03/06/21 Unknown ABG O2 Content 21.2 (0.0-44) 03/06/21 Unknown ABG Base Excess 1.4 mmol/L (-2.0-3.0) 03/06/21 Unknown ABG Hemoglobin 16.8 gm/dl (12.0-16.0) H 03/06/21 Unknown ABG Carboxyhemoglobin 1.1 % (0.0-5.0) 03/06/21 Unknown ABG Methemoglobin 0.8 % (0.0-1.5) 03/06/21 Unknown Oxyhemoglobin 90.1 % (95.0-99.0) L 03/06/21 Unknown FiO2 100 % 03/06/21 Unknown Sodium 149 mmol/L (137-145) H 03/06/21 06:13 Potassium 4.5 mmol/L (3.6-5.0) D 03/06/21 06:13 Chloride 107.2 mmol/L (98-107) H 03/06/21 06:13 Carbon Dioxide 27 mmol/L (22-30) 03/06/21 06:13 Anion Gap 19 mmol/L 03/06/21 06:13 BUN 62 mg/dL (7-17) H 03/06/21 06:13 Creatinine 1.9 mg/dL (0.6-1.2) H D 03/06/21 06:13 Estimated GFR 33 ml/min 03/06/21 06:13 BUN/Creatinine Ratio 33 % 03/06/21 06:13 Glucose 140 mg/dL (65-100) H 03/06/21 06:13 POC Glucose 122 mg/dL (70-105) H 03/06/21 12:00 Lactic Acid 1.60 mmol/L (0.7-2.0) 02/17/21 18:39 Calcium 7.7 mg/dL (8.4-10.2) L D 03/06/21 06:13 Phosphorus 10.70 mg/dL (2.5-4.5) H 03/06/21 06:13 Magnesium 2.40 mg/dL (1.7-2.3) H 03/06/21 06:13 Ferritin 1526.0 ng/mL (10.0-200.0) H 03/01/21 05:12 Total Bilirubin 0.30 mg/dL (0.1-1.2) 03/05/21 10:10 Direct Bilirubin < 0.2 mg/dL (0-0.2) 02/17/21 14:34 Indirect Bilirubin 0.1 mg/dL 02/17/21 14:34 AST 38 units/L (5-40) 03/05/21 10:10 ALT 44 units/L (7-56) 03/05/21 10:10 Alkaline Phosphatase 78 units/L (35-129) 03/05/21 10:10 Lactate Dehydrogenase 385 units/L (91-180) H 03/01/21 05:12 C-Reactive Protein 11.20 mg/dL (0.00-1.30) H 03/01/21 05:12 NT-Pro-B Natriuret Pep 86.77 pg/mL (0-900) 02/20/21 16:34 Total Protein 7.7 g/dL (6.3-8.2) 03/05/21 10:10 Albumin 3.1 g/dL (3.9-5) L 03/05/21 10:10 Albumin/Globulin Ratio 0.7 % 03/05/21 10:10 Procalcitonin 0.11 ng/mL (<0.15) 02/19/21 07:32 Urine Color Cassandra (Yellow) 02/18/21 Unknown Urine Turbidity Cloudy (Clear) 02/18/21 Unknown Urine pH 5.0 (5.0-7.0) 02/18/21 Unknown Ur Specific [place] 1.027 (1.003-1.030) 02/18/21 Unknown Urine Protein 100 mg/dl mg/dL (Negative) 02/18/21 Unknown Urine Glucose (UA) Neg mg/dL (Negative) 02/18/21 Unknown Urine Ketones Neg mg/dL (Negative) 02/18/21 Unknown Urine Blood Neg (Negative) 02/18/21 Unknown Urine Nitrite Neg (Negative) 02/18/21 Unknown Urine Bilirubin Neg (Negative) 02/18/21 Unknown Urine Urobilinogen < 2.0 mg/dL (<2.0) 02/18/21 Unknown Ur Leukocyte Esterase Neg (Negative) 02/18/21 Unknown Urine WBC (Auto) 7.0 /HPF (0.0-6.0) H 02/18/21 Unknown Urine RBC (Auto) 4.0 /HPF (0.0-6.0) 02/18/21 Unknown U Epithel Cells (Auto) 3.0 /HPF (0-13.0) 02/18/21 Unknown Urine Mucus 2+ /HPF 02/18/21 Unknown Urine Creatinine 247.7 mg/dL (0.1-20.0) H 03/06/21 09:00 Urine Sodium 25 mmol/L 03/06/21 09:00 Coronavirus (PCR) Positive (Negative) A 02/18/21 Unknown Head/IV: Voiding Method Indwelling Catheter Active Medications - Current Medications Current Medications: Generic Name Dose Route Start Last Admin Trade Name Freq PRN Reason Stop Dose Admin Acetaminophen 650 mg 02/17/21 23:58 03/02/21 09:45 Acetaminophen 325 Mg Tab PO 650 mg Q4H PRN Administration Pain MILD(1-3)/Fever >100.5/BROWN Dextrose 50 ml 02/27/21 11:30 Dextrose 50% In Water (25gm) 50 Ml Syringe IV Q30MIN PRN Hypoglycemia Protocol Enoxaparin Sodium 90 mg 03/07/21 10:00 Enoxaparin 100 Mg/1 Ml Inj 1 mg/kg (90 mg) SUB-Q Q24HR DEISY Protocol Famotidine 10 mg 03/06/21 22:00 Famotidine 20 Mg/2 Ml Inj IV BID DEISY Fentanyl 50 mcg 03/05/21 09:38 Fentanyl 100 Mcg/2 Ml Inj IV Q10MIN PRN ANALGESIA Gabapentin 400 mg 02/19/21 04:00 03/06/21 09:10 Gabapentin 400 Mg Cap PO Not Given BID DEISY Hydrophilic Ointment 1 applic 03/05/21 09:39 Lip Therapy Vaseline TP Q2HR PRN Dry Lips Propofol 1,000 mg in 100 mls @ 2.585 mls/hr 03/05/21 10:00 03/06/21 14:16 Diprivan 10 Mg/Ml IV 20 mcg/kg/min TITR DEISY 10.342 mls/hr Administration Protocol 5 MCG/KG/MIN Fentanyl Citrate 2,000 mcg in 100 mls @ 4.309 mls/hr 03/05/21 10:00 03/06/21 08:27 Fentanyl Drip Premix IV 4 mcg/kg/hr TITR DEISY 17.237 mls/hr Administration Protocol 1 MCG/KG/HR Midazolam HCl 100 mg/ Sodium 100 mls @ 1 mls/hr 03/05/21 11:00 03/06/21 13:18 Chloride IV 3 mg/hr TITR DEISY 3 mls/hr Administration Protocol 1 MG/HR NORepinephrine/NS 8 MG-250 ML 8 mg in 250 mls @ 3.75 mls/hr 03/05/21 10:15 03/06/21 13:19 Norepinephrine/Ns 8 Mg-250 Ml (Double Conc) IV 26 mcg/min TITRATE DEISY 48.75 mls/hr Administration Protocol 2 MCG/MIN Dexmedetomidine HCl 400 mcg/ 104 mls @ 4.482 mls/hr 03/05/21 14:00 Sodium Chloride IV TITRATE DEISY Protocol 0.2 MCG/KG/HR Vasopressin 20 unit/ Sodium 101 mls @ 9.09 mls/hr 03/06/21 06:00 03/06/21 07:15 Chloride IV 0.03 units/min TITR DEISY 9.09 mls/hr Titration Protocol 0.03 UNITS/MIN Insulin Glargine 10 units 03/02/21 22:00 03/05/21 22:41 Insulin Glargine 100 Units/Ml SUB-Q 10 units QHS [facility] Administration Insulin Human Lispro 0 unit 03/05/21 18:00 03/06/21 12:14 Insulin Lispro 100 Unit/Ml SUB-Q Not Given Q6HR [facility] Protocol Midazolam HCl 2 mg 03/05/21 10:11 03/05/21 10:53 Midazolam 2 Mg/2 Ml Inj IV 2 mg Q10MIN PRN Administration Sedation Multi-Ingred Cream/Lotion/Oil/Oint 1 applic 03/05/21 09:39 Mineral Oil/Petrolatum, White Ophth Oint 3.5 Gm OU Q4HR PRN Dry Eye(s) Ondansetron HCl 4 mg 02/17/21 23:58 Ondansetron 4 Mg/2 Ml Inj IV Q8H PRN Nausea And Vomiting Senna/Docusate Sodium 1 tab 03/05/21 10:00 03/06/21 09:10 Sennosides/Docusate Sodium 8.6/50 Mg Tab FEEDTUBE Not Given BID DEISY Sertraline HCl 50 mg 02/19/21 10:00 03/06/21 09:10 Sertraline 50 Mg Tab PO Not Given QDAY DEISY Sodium Chloride 10 ml 02/18/21 10:00 03/06/21 09:20 Sodium Chloride 0.9% 10 Ml Flush Syringe IV 10 ml BID DEISY Administration Sodium Chloride 10 ml 02/17/21 23:58 Sodium Chloride 0.9% 10 Ml Flush Syringe IV PRN PRN LINE FLUSH Nutrition/Malnutrition Assess - Dietary Evaluation Nutrition/Malnutrition Findings: Nutrition Notes Start: 02/25/21 16:10 Freq: Status: Active Protocol: Document 03/05/21 16:12 ALEC (Rec: 03/05/21 16:35 ALEC [id number]) Nutrition Notes Need for Assessment generated from: MD Order Initial or Follow up Brief Note Current Diet TF-Glucerna 1.2 Dagoberto @ 48 ml/hr (since B 03/06). Height 5 ft 6 in Weight 86.183 kg [place] Body Weight (kg) 59.09 BMI 30.7 Weight change and time frame No body weight change reported . Weight Status Obese Subjective/Other Information RD consult for write/manage TF . Pt is now sedated/intubated. TF ordered. F/U to check for tolerance. Percent of energy/protein needs met: Prescribed Glucerna 1.2 Dagoberto @ 48 ml/hr provides for energy/ protein needs (1,390 Kcal/70 g ) during LOS, 100% Kcal; 74% AA. Current % PO Other Minimum of two criteria No #2 Nutrition Diagnosis Inadequate oral intake Etiology Pt on mechanical ventilation. As Evidenced by Signs and Symptoms Pt on NPO. Is patient on ventilator? Yes Is Patient Ambulatory and/or Out of Bed No REE-([place]-St. Jeor-confined to bed) 1737.120 Calculation Used for Recommendations 70-80% energy needs Additional Notes Energy: 5516-2851 kcal/day Protein: 1.3 g/kg adjBW: 94 g/ day Fluids: 1 ml/kcal, or as per MD. Nutrition Intervention Change Diet Order: d/c Nutrition Support: Start Glucerna 1.2 Dagoberto @ 48 ml /hr. Flush: 80 ml water Q 4 hr, or as per MD. Kcal 1,390 Protein (gm) 70 Carbohydrates (gm) 133 Fat (gm) 70 Fluid (mL) 933 Fiber (gm) 19 % RDI: 100% Kcal; 74% AA. Add Supplement/Snack (indicate name/kcal d/c /protein ) Goal #1 Provide at least 75% of energy /protein needs through Enteral Feeding during LOS. Follow-Up By: 03/08/21 Additional Comments Continue monitoring TF tolerance and BM. <RIN JAMISON - Last Filed: 03/09/21 12:10> Assessment and Plan Assessment and plan: I saw and evaluated the patient. Discussed with the nurse practitioner and agree with their findings and plan as documented in this note. Hospitalist Physical - Constitutional Vitals: Temp Pulse Resp BP Pulse Ox 99.4 F 99 H 27 H 97/48 91 03/09/21 08:00 03/09/21 08:25 03/09/21 06:30 03/09/21 08:25 03/09/21 08:25 Results - Labs CBC & Chem 7: 03/09/21 04:00 03/09/21 04:00 Labs: Laboratory Last Values WBC 11.4 K/mm3 (4.5-11.0) H 03/09/21 04:00 RBC 3.21 M/mm3 (3.65-5.03) L 03/09/21 04:00 Hgb 9.4 gm/dl (10.1-14.3) L 03/09/21 04:00 Hct 29.6 % (30.3-42.9) L 03/09/21 04:00 MCV 92 fl (79-97) 03/09/21 04:00 MCH 29 pg (28-32) 03/09/21 04:00 MCHC 32 % (30-34) 03/09/21 04:00 RDW 15.2 % (13.2-15.2) 03/09/21 04:00 Plt Count 234 K/mm3 (140-440) 03/09/21 04:00 Add Manual Diff Complete 03/05/21 10:10 Total Counted 100 03/05/21 10:10 Seg Neuts % (Manual) 77.0 % (40.0-70.0) H 03/05/21 10:10 Band Neutrophils % 3.0 % 03/05/21 10:10 Lymphocytes % (Manual) 12.0 % (13.4-35.0) L 03/05/21 10:10 Reactive Lymphs % (Man) 2.0 % 03/05/21 10:10 Monocytes % (Manual) 5.0 % (0.0-7.3) 03/05/21 10:10 Eosinophils % (Manual) 1.0 % (0.0-4.3) 03/05/21 10:10 Basophils % (Manual) 0 % (0.0-1.8) 03/05/21 10:10 Metamyelocytes % 0 % 03/05/21 10:10 Myelocytes % 0 % 03/05/21 10:10 Promyelocytes % 0 % 03/05/21 10:10 Blast Cells % 0 % 03/05/21 10:10 Nucleated RBC % Not Reportable 03/05/21 10:10 Seg Neutrophils # Man 13.7 K/mm3 (1.8-7.7) H 03/05/21 10:10 Band Neutrophils # 0.5 K/mm3 03/05/21 10:10 Lymphocytes # (Manual) 2.1 K/mm3 (1.2-5.4) 03/05/21 10:10 Abs React Lymphs (Man) 0.4 K/mm3 03/05/21 10:10 Monocytes # (Manual) 0.9 K/mm3 (0.0-0.8) H 03/05/21 10:10 Eosinophils # (Manual) 0.2 K/mm3 (0.0-0.4) 03/05/21 10:10 Basophils # (Manual) 0.0 K/mm3 (0.0-0.1) 03/05/21 10:10 Metamyelocytes # 0.0 K/mm3 03/05/21 10:10 Myelocytes # 0.0 K/mm3 03/05/21 10:10 Promyelocytes # 0.0 K/mm3 03/05/21 10:10 Blast Cells # 0.0 K/mm3 03/05/21 10:10 WBC Morphology Not Reportable 03/05/21 10:10 Hypersegmented Neuts Not Reportable 03/05/21 10:10 Hyposegmented Neuts Not Reportable 03/05/21 10:10 Hypogranular Neuts Not Reportable 03/05/21 10:10 Smudge Cells Not Reportable 03/05/21 10:10 Toxic Granulation Not Reportable 03/05/21 10:10 Toxic Vacuolation Not Reportable 03/05/21 10:10 Dohle Bodies Not Reportable 03/05/21 10:10 Pelger-Huet Anomaly Not Reportable 03/05/21 10:10 Cindy Rods Not Reportable 03/05/21 10:10 Platelet Estimate Consistent w auto 03/05/21 10:10 Clumped Platelets Not Reportable 03/05/21 10:10 Plt Clumps, EDTA Not Reportable 03/05/21 10:10 Large Platelets 1+ 03/05/21 10:10 Giant Platelets Not Reportable 03/05/21 10:10 Platelet Satelliting Not Reportable 03/05/21 10:10 Plt Morphology Comment Not Reportable 03/05/21 10:10 RBC Morphology Not Reportable 03/05/21 10:10 Dimorphic RBCs Not Reportable 03/05/21 10:10 Polychromasia Few 03/05/21 10:10 Hypochromasia Not Reportable 03/05/21 10:10 Poikilocytosis Not Reportable 03/05/21 10:10 Anisocytosis 1+ 03/05/21 10:10 Microcytosis Not Reportable 03/05/21 10:10 Macrocytosis Not Reportable 03/05/21 10:10 Spherocytes Not Reportable 03/05/21 10:10 Pappenheimer Bodies Not Reportable 03/05/21 10:10 Sickle Cells Not Reportable 03/05/21 10:10 Target Cells Not Reportable 03/05/21 10:10 Tear Drop Cells Not Reportable 03/05/21 10:10 Ovalocytes Not Reportable 03/05/21 10:10 Helmet Cells Not Reportable 03/05/21 10:10 [place] Bodies Not Reportable 03/05/21 10:10 [place] Rings Not Reportable 03/05/21 10:10 [place] Cells Not Reportable 03/05/21 10:10 Bite Cells Not Reportable 03/05/21 10:10 Crenated Cell Not Reportable 03/05/21 10:10 Elliptocytes Not Reportable 03/05/21 10:10 Acanthocytes (Spur) Not Reportable 03/05/21 10:10 Rouleaux Not Reportable 03/05/21 10:10 Hemoglobin C Crystals Not Reportable 03/05/21 10:10 Schistocytes Not Reportable 03/05/21 10:10 Malaria parasites Not Reportable 03/05/21 10:10 [place] Bodies Not Reportable 03/05/21 10:10 Hem Pathologist Commnt No 03/05/21 10:10 PT 13.9 Sec. (12.2-14.9) 02/17/21 14:34 INR 0.96 (0.87-1.13) 02/17/21 14:34 APTT 26.4 Sec. (24.2-36.6) 02/17/21 14:34 D-Dimer 3469.99 ng/mlDDU (0-234) H 03/01/21 05:12 ABG pH 7.260 pH Units (7.350-7.450) L 03/09/21 04:11 ABG pCO2 69.5 mm Hg 03/09/21 04:11 ABG pO2 85.9 mm Hg (80.0-90.0) 03/09/21 04:11 ABG HCO3 30.5 mmol/L (20.0-26.0) H 03/09/21 04:11 ABG O2 Saturation 95.9 % (95.0-99.0) 03/09/21 04:11 ABG O2 Content 12.6 (0.0-44) 03/09/21 04:11 ABG Base Excess 2.4 mmol/L (-2.0-3.0) 03/09/21 04:11 ABG Hemoglobin 9.4 gm/dl (12.0-16.0) L 03/09/21 04:11 ABG Carboxyhemoglobin 1.3 % (0.0-5.0) 03/09/21 04:11 ABG Methemoglobin 0.7 % (0.0-1.5) 03/09/21 04:11 Oxyhemoglobin 93.9 % (95.0-99.0) L 03/09/21 04:11 FiO2 85 % 03/09/21 04:11 Sodium 144 mmol/L (137-145) 03/09/21 04:00 Potassium 4.7 mmol/L (3.6-5.0) 03/09/21 04:00 Chloride 105.8 mmol/L (98-107) 03/09/21 04:00 Carbon Dioxide 29 mmol/L (22-30) 03/09/21 04:00 Anion Gap 14 mmol/L 03/09/21 04:00 BUN 74 mg/dL (7-17) H 03/09/21 04:00 Creatinine 1.3 mg/dL (0.6-1.2) H 03/09/21 04:00 Estimated GFR 50 ml/min 03/09/21 04:00 BUN/Creatinine Ratio 57 % 03/09/21 04:00 Glucose 117 mg/dL (65-100) H 03/09/21 04:00 POC Glucose 122 mg/dL (70-105) H 03/09/21 11:25 Lactic Acid 1.60 mmol/L (0.7-2.0) 02/17/21 18:39 Calcium 8.5 mg/dL (8.4-10.2) 03/09/21 04:00 Phosphorus 10.70 mg/dL (2.5-4.5) H 03/06/21 06:13 Magnesium 2.40 mg/dL (1.7-2.3) H 03/06/21 06:13 Ferritin 1526.0 ng/mL (10.0-200.0) H 03/01/21 05:12 Total Bilirubin 0.30 mg/dL (0.1-1.2) 03/05/21 10:10 Direct Bilirubin < 0.2 mg/dL (0-0.2) 02/17/21 14:34 Indirect Bilirubin 0.1 mg/dL 02/17/21 14:34 AST 38 units/L (5-40) 03/05/21 10:10 ALT 44 units/L (7-56) 03/05/21 10:10 Alkaline Phosphatase 78 units/L (35-129) 03/05/21 10:10 Lactate Dehydrogenase 385 units/L (91-180) H 03/01/21 05:12 C-Reactive Protein 11.20 mg/dL (0.00-1.30) H 03/01/21 05:12 NT-Pro-B Natriuret Pep 86.77 pg/mL (0-900) 02/20/21 16:34 Total Protein 7.7 g/dL (6.3-8.2) 03/05/21 10:10 Albumin 3.1 g/dL (3.9-5) L 03/05/21 10:10 Albumin/Globulin Ratio 0.7 % 03/05/21 10:10 Triglycerides 171 mg/dL (2-149) H 03/07/21 04:05 Procalcitonin 0.11 ng/mL (<0.15) 02/19/21 07:32 Urine Color Cassandra (Yellow) 02/18/21 Unknown Urine Turbidity Cloudy (Clear) 02/18/21 Unknown Urine pH 5.0 (5.0-7.0) 02/18/21 Unknown Ur Specific [place] 1.027 (1.003-1.030) 02/18/21 Unknown Urine Protein 100 mg/dl mg/dL (Negative) 02/18/21 Unknown Urine Glucose (UA) Neg mg/dL (Negative) 02/18/21 Unknown Urine Ketones Neg mg/dL (Negative) 02/18/21 Unknown Urine Blood Neg (Negative) 02/18/21 Unknown Urine Nitrite Neg (Negative) 02/18/21 Unknown Urine Bilirubin Neg (Negative) 02/18/21 Unknown Urine Urobilinogen < 2.0 mg/dL (<2.0) 02/18/21 Unknown Ur Leukocyte Esterase Neg (Negative) 02/18/21 Unknown Urine WBC (Auto) 7.0 /HPF (0.0-6.0) H 02/18/21 Unknown Urine RBC (Auto) 4.0 /HPF (0.0-6.0) 02/18/21 Unknown U Epithel Cells (Auto) 3.0 /HPF (0-13.0) 02/18/21 Unknown Urine Mucus 2+ /HPF 02/18/21 Unknown Urine Creatinine 247.7 mg/dL (0.1-20.0) H 03/06/21 09:00 Urine Sodium 25 mmol/L 03/06/21 09:00 Coronavirus (PCR) Positive (Negative) A 02/18/21 Unknown Head/IV: Voiding Method Indwelling Catheter Active Medications - Current Medications Current Medications: Generic Name Dose Route Start Last Admin Trade Name Freq PRN Reason Stop Dose Admin Acetaminophen 650 mg 02/17/21 23:58 03/02/21 09:45 Acetaminophen 325 Mg Tab PO 650 mg Q4H PRN Administration Pain MILD(1-3)/Fever >100.5/BROWN Dextrose 50 ml 02/27/21 11:30 Dextrose 50% In Water (25gm) 50 Ml Syringe IV Q30MIN PRN Hypoglycemia Protocol Enoxaparin Sodium 90 mg 03/08/21 22:00 03/08/21 22:16 Enoxaparin 100 Mg/1 Ml Inj 1 mg/kg (90 mg) 90 mg SUB-Q Administration Q12HR DEISY Protocol Famotidine 20 mg 03/08/21 22:00 03/08/21 22:17 Famotidine 20 Mg/2 Ml Inj IV 20 mg BID DEISY Administration Fentanyl 50 mcg 03/05/21 09:38 Fentanyl 100 Mcg/2 Ml Inj IV Q10MIN PRN ANALGESIA Gabapentin 400 mg 02/19/21 04:00 03/08/21 22:16 Gabapentin 400 Mg Cap PO 400 mg BID DEISY Administration Hydrophilic Ointment 1 applic 03/05/21 09:39 Lip Therapy Vaseline TP Q2HR PRN Dry Lips Propofol 1,000 mg in 100 mls @ 2.585 mls/hr 03/05/21 10:00 03/08/21 18:22 Diprivan 10 Mg/Ml IV 20 mcg/kg/min TITR DEISY 10.342 mls/hr Administration Protocol 5 MCG/KG/MIN Fentanyl Citrate 2,000 mcg in 100 mls @ 4.309 mls/hr 03/05/21 10:00 03/09/21 02:55 Fentanyl Drip Premix IV 4 mcg/kg/hr TITR DEISY 17.237 mls/hr Administration Protocol 1 MCG/KG/HR Midazolam HCl 100 mg/ Sodium 100 mls @ 1 mls/hr 03/05/21 11:00 03/09/21 02:55 Chloride IV 3 mg/hr TITR DEISY 3 mls/hr Administration Protocol 1 MG/HR NORepinephrine/NS 8 MG-250 ML 8 mg in 250 mls @ 3.75 mls/hr 03/05/21 10:15 03/08/21 12:02 Norepinephrine/Ns 8 Mg-250 Ml (Double Conc) IV 0 mcg/min TITRATE DEISY 0 mls/hr Titration Protocol 2 MCG/MIN Dexmedetomidine HCl 400 mcg/ 104 mls @ 4.482 mls/hr 03/05/21 14:00 Sodium Chloride IV TITRATE DEISY Protocol 0.2 MCG/KG/HR Vasopressin 20 unit/ Sodium 101 mls @ 9.09 mls/hr 03/06/21 06:00 03/08/21 10:30 Chloride IV 0 units/min TITR DEISY 0 mls/hr Titration Protocol 0.03 UNITS/MIN Insulin Glargine 10 units 03/02/21 22:00 03/08/21 22:18 Insulin Glargine 100 Units/Ml SUB-Q 10 units QHS DEISY Administration Insulin Human Lispro 0 unit 03/05/21 18:00 03/09/21 05:40 Insulin Lispro 100 Unit/Ml SUB-Q Not Given Q6HR [facility] Protocol Midazolam HCl 2 mg 03/05/21 10:11 03/05/21 10:53 Midazolam 2 Mg/2 Ml Inj IV 2 mg Q10MIN PRN Administration Sedation Multi-Ingred Cream/Lotion/Oil/Oint 1 applic 03/05/21 09:39 Mineral Oil/Petrolatum, White Ophth Oint 3.5 Gm OU Q4HR PRN Dry Eye(s) Ondansetron HCl 4 mg 02/17/21 23:58 Ondansetron 4 Mg/2 Ml Inj IV Q8H PRN Nausea And Vomiting Senna/Docusate Sodium 1 tab 03/05/21 10:00 03/08/21 22:17 Sennosides/Docusate Sodium 8.6/50 Mg Tab FEEDTUBE 1 tab BID DEISY Administration Sertraline HCl 50 mg 02/19/21 10:00 03/08/21 10:34 Sertraline 50 Mg Tab PO 50 mg QDAY DEISY Administration Sodium Chloride 10 ml 02/18/21 10:00 03/08/21 22:17 Sodium Chloride 0.9% 10 Ml Flush Syringe IV 10 ml BID DEISY Administration Sodium Chloride 10 ml 02/17/21 23:58 Sodium Chloride 0.9% 10 Ml Flush Syringe IV PRN PRN LINE FLUSH Nutrition/Malnutrition Assess - Dietary Evaluation Nutrition/Malnutrition Findings: Nutrition Notes Start: 02/25/21 16:10 Freq: Status: Active Protocol: Document 03/08/21 15:59 PARDEEP (Rec: 03/08/21 16:12 PARDEEP [email or web address]) Nutrition Notes Initial or Follow up Reassessment Current Diagnosis Diabetes,Hypertension, Respiratory Failure Other Pertinent Diagnosis COVID-19 pneu, SIRS Current Diet TF-Glucerna 1.2 at 48 ml/hr Labs/Tests BUN 69 Pertinent Medications Propofol at 10.342ml/hr ( provides 273 kcal) Height 5 ft 6 in Weight 86.183 kg [place] Body Weight (kg) 59.09 BMI 30.7 Weight Status Obese Subjective/Other Information Spoke with RN via phone (16:02 ). Pt was requiring high pressor support, so TF was not started. Pt not requiring pressor support at this time, so TF started and currently being tolerated at 38ml/hr. TF rate rate to be advanced to goal tonight. No BM reported , but pt receiving senokot. Pt remains on vent support. Burn Absent Trauma Absent Minimum of two criteria No #2 Nutrition Diagnosis Inadequate oral intake Diagnosis Progress(for reassessment Continues documentation) #1 Nutrition Diagnosis Inadequate protein intake As Evidenced by Signs and Symptoms current TF rate provides <75% pro needs Diagnosis Progress(for reassessment Continues documentation) Is patient on ventilator? Yes Is Patient Ambulatory and/or Out of Bed No REE-([facility]-confined to bed) [phone] Calculation Used for Recommendations 70-80% energy needs Additional Notes Energy: [phone] kcal/day Protein: 1.3 g/kg adjBW: 94 g/ day Fluids: 1 ml/kcal, or as per MD. Nutrition Intervention Nutrition Support: Increase Glucerna 1.2 rate to 50ml/hr. Provide 80ml water flush q4h. Kcal 1,440 Protein (gm) 72 Carbohydrates (gm) 137 Fat (gm) 72 Fluid (mL) 966 Fiber (gm) 19 Goal #1 TF tolerance Goal #2 TF to meet at least 75% energy and pro needs Follow-Up By: 03/11/21 Additional Comments F/U: TF goal rate/tolerance, vent status, BM
--- NOTE | 2021-03-06 14:27 | Progress Note ---
Assessment and Plan 61 y/o female with acute respiratory failure secondary to COVID 19 pneumonia. 03/06/21: Overall clinical state is worsening. Now with difficulty ventilation and with improved ventilation comes a compromise in oxygenation. Newest concern is renal function which is worsening. If patient requires dialysis then mortality increases and prognosis worsens. If requires HD, prognosis is very very guarded to poor. 03/05/21: Added versed drip to fent and Diprovan to keep RASS at -4. Will also order precedex in the event it is needed. Repeat ABG somewhat improved but increased RR. Must watch Peak Pressures. attempting to do low lung volume protective ventilator strategy. Patient has actually been off steroids for some time. Will not restart as of yet. Unable to prone. Guarded prognosis. This discussion was had over the weekend with the daughter when I thought we would have to intubate then. Explained that vent is not therapy but only something to give her lungs time to rest, if possible to see if they can recover. Prognosis is very guarded to poor. 03/04/21: Continue supportive care between HFNC and bipap therapy. Steroids. Positive reinforcement. 03/03/21: Long discussion at bedside with patient. Today she stated that she did not want to be intubated. I attempted to call her daughter while I was in the room with the patient but no answer. She will remain full code as she has said this in the past and then revoked after speaking with the daughter ( which is why i called her again this morning). Continue bipap and monitor. Guarded prognosis. 03/02/21: Prone if able. Continue steroids. Negative fluid balance if possible. Prognosis remains very guarded 02/28/21: Prone. Steroids. Net negative fluid balance if possible. Guarded prognosis. 02/27/21: Full code status. Prone as much as possible during the day and sleep prone at night. Patient may require intubation ultimately. Guarded prognosis. 02/26/21: Prone if possible. Continue anticoagulation for DVT. Steroids. Net negative fluid balance. 02/25/21: Long discussion at bedside with patient, whom per her, she has discussed this with her daughter. She does no want an endotracheal tube. She does not want chest compression and she does not want shocks. I did not ask about vasopressors. The patient is awake and alert and oriented. This needs to be addressed by primary team as well an if confirmed, I have no problem with cosigning AND order. Continue supportive measures for now. Guarded to poor prognosis. 02/21/21: BNP normal. Still would attempt to achieve net negative fluid balance daily. Continue Remdesivir and steroids. Prone if patient willing. Follow up CTA results. Discussed with IMS, may change anticoagulation but awaiting official ready on CTA. Guareded prognosis. 02/20/21: Follow up CTA results. Will send BNP. Continue steroids and Remdesivir. Guarded prognosis. Prone if able, very pertinent to do this. 1. self proning as tolerated during the day and prone at night while sleeping 2. Steroids and Remdesivir 3. Daily net negative volume state 4. Consider checking BNP and echo to make sure no edema on this film 5. Agree with empiric anticoagulation given elevated D-Dimer Guarded prognosis. Will continue to follow. Subjective Date of service: 03/06/21 Principal diagnosis: COVID pneumonia Interval history: Worsening hypercapnea and overall clinical state. urine ouput falling. Objective Vital Signs - 12hr 03/06/21 03/06/21 03/06/21 02:30 02:45 03:00 Temperature Pulse Rate 97 H 97 H 97 H Pulse Rate [ From Monitor] Respiratory 22 21 20 Rate Blood Pressure 105/67 108/76 106/74 O2 Sat by Pulse 92 92 92 Oximetry 03/06/21 03/06/21 03/06/21 03:15 03:30 03:45 Temperature Pulse Rate 97 H 99 H 98 H Pulse Rate [ From Monitor] Respiratory 20 22 22 Rate Blood Pressure 106/71 97/65 101/62 O2 Sat by Pulse 92 90 90 Oximetry 03/06/21 03/06/21 03/06/21 04:00 04:15 04:19 Temperature 97.3 F L Pulse Rate 97 H 95 H 96 H Pulse Rate [ From Monitor] Respiratory 22 22 Rate Blood Pressure 91/65 105/70 105/70 O2 Sat by Pulse 91 92 90 Oximetry 03/06/21 03/06/21 03/06/21 04:30 04:45 05:00 Temperature Pulse Rate 94 H 94 H 90 Pulse Rate [ From Monitor] Respiratory 22 21 20 Rate Blood Pressure 97/56 86/53 86/53 O2 Sat by Pulse 88 87 86 Oximetry 03/06/21 03/06/21 03/06/21 05:15 05:30 05:46 Temperature Pulse Rate 91 H 91 H 91 H Pulse Rate [ From Monitor] Respiratory 22 30 H Rate Blood Pressure 72/42 84/52 69/36 O2 Sat by Pulse 88 90 84 Oximetry 03/06/21 03/06/21 03/06/21 06:00 06:16 06:30 Temperature Pulse Rate 88 84 84 Pulse Rate [ From Monitor] Respiratory 30 H 30 H 30 H Rate Blood Pressure 82/49 82/49 82/49 O2 Sat by Pulse 90 91 90 Oximetry 03/06/21 03/06/21 03/06/21 06:45 07:00 07:15 Temperature Pulse Rate 82 82 83 Pulse Rate [ From Monitor] Respiratory 30 H 30 H 30 H Rate Blood Pressure 84/56 83/56 84/57 O2 Sat by Pulse 90 91 92 Oximetry 03/06/21 03/06/21 03/06/21 07:30 07:39 07:45 Temperature 97.5 F L Pulse Rate 83 84 Pulse Rate [ From Monitor] Respiratory 30 H 30 H Rate Blood Pressure 88/57 84/57 O2 Sat by Pulse 91 91 Oximetry 03/06/21 03/06/21 03/06/21 08:00 08:15 08:25 Temperature Pulse Rate 85 83 84 Pulse Rate [ 84 From Monitor] Respiratory 30 H 30 H Rate Blood Pressure 86/57 86/57 93/60 O2 Sat by Pulse 91 91 88 Oximetry 03/06/21 03/06/21 03/06/21 08:30 08:45 09:00 Temperature Pulse Rate 85 85 83 Pulse Rate [ From Monitor] Respiratory 30 H 30 H 30 H Rate Blood Pressure 88/58 88/60 93/60 O2 Sat by Pulse 92 93 95 Oximetry 03/06/21 03/06/21 03/06/21 09:15 09:30 09:45 Temperature Pulse Rate 83 81 84 Pulse Rate [ From Monitor] Respiratory 30 H 30 H 30 H Rate Blood Pressure 84/55 101/70 89/60 O2 Sat by Pulse 93 93 94 Oximetry 03/06/21 03/06/21 03/06/21 10:00 10:15 10:30 Temperature Pulse Rate 87 87 87 Pulse Rate [ From Monitor] Respiratory 30 H 30 H 30 H Rate Blood Pressure 91/62 90/59 91/59 O2 Sat by Pulse 93 94 94 Oximetry 03/06/21 03/06/21 03/06/21 10:45 11:00 11:15 Temperature Pulse Rate 88 89 88 Pulse Rate [ From Monitor] Respiratory 30 H 30 H 30 H Rate Blood Pressure 88/58 84/51 86/58 O2 Sat by Pulse 94 94 90 Oximetry 03/06/21 03/06/21 03/06/21 11:30 11:45 12:00 Temperature Pulse Rate 85 86 88 Pulse Rate [ 88 From Monitor] Respiratory 30 H 30 H 30 H Rate Blood Pressure 95/65 93/61 94/61 O2 Sat by Pulse 95 95 96 Oximetry 03/06/21 03/06/21 03/06/21 12:15 12:18 12:30 Temperature Pulse Rate 89 91 H Pulse Rate [ From Monitor] Respiratory 30 H 30 H Rate Blood Pressure 87/61 82/54 O2 Sat by Pulse 95 95 93 Oximetry 03/06/21 03/06/21 03/06/21 12:45 12:51 13:00 Temperature 98.6 F Pulse Rate 93 H 94 H Pulse Rate [ From Monitor] Respiratory 30 H 30 H Rate Blood Pressure 81/53 82/53 O2 Sat by Pulse 91 91 Oximetry 03/06/21 03/06/21 03/06/21 13:15 13:30 13:45 Temperature Pulse Rate 93 H 94 H 90 Pulse Rate [ From Monitor] Respiratory 30 H 30 H 30 H Rate Blood Pressure 79/56 88/61 84/60 O2 Sat by Pulse 92 95 96 Oximetry 03/06/21 14:00 Temperature Pulse Rate 88 Pulse Rate [ From Monitor] Respiratory 30 H Rate Blood Pressure 99/65 O2 Sat by Pulse 99 Oximetry Constitutional: alert, other (on hiflo) ENT: oropharynx moist Neck: supple Ascultation: Bilateral: diminished breath sounds Cardiovascular: regular rate and rhythm Gastrointestinal: normoactive bowel sounds, soft, non-tender, non-distended Integumentary: normal Extremities: no cyanosis CBC and BMP: 03/06/21 06:13 03/06/21 06:13 ABG, PT/INR, D-dimer: ABG ABG pH 7.253 pH Units (7.350-7.450) L 03/06/21 Unknown ABG pCO2 72.6 mm Hg 03/06/21 Unknown ABG pO2 66.5 mm Hg (80.0-90.0) L 03/06/21 Unknown ABG O2 Saturation 91.8 % (95.0-99.0) L 03/06/21 Unknown PT/INR, D-dimer PT 13.9 Sec. (12.2-14.9) 02/17/21 14:34 INR 0.96 (0.87-1.13) 02/17/21 14:34 D-Dimer 3469.99 ng/mlDDU (0-234) H 03/01/21 05:12 Abnormal lab findings: Abnormal Labs 02/17/21 02/17/21 02/17/21 14:34 14:34 14:34 WBC 11.7 H RBC Hgb Hct 44.9 H RDW 15.6 H Plt Count Seg Neuts % (Manual) Lymphocytes % (Manual) 9.0 L Monocytes % (Manual) 12.0 H Seg Neutrophils # Man 8.2 H Lymphocytes # (Manual) 1.1 L Monocytes # (Manual) 1.4 H D-Dimer ABG pH ABG pO2 ABG HCO3 ABG O2 Saturation ABG Base Excess ABG Hemoglobin Oxyhemoglobin Sodium Potassium 3.5 L Chloride BUN 27 H Creatinine Glucose 150 H POC Glucose Lactic Acid 2.90 H* Calcium Phosphorus Magnesium Ferritin AST Lactate Dehydrogenase C-Reactive Protein NT-Pro-B Natriuret Pep Albumin Urine WBC (Auto) Urine Creatinine Coronavirus (PCR) 02/17/21 02/18/21 02/18/21 14:34 07:48 07:48 WBC 12.0 H RBC Hgb Hct RDW 15.4 H Plt Count Seg Neuts % (Manual) 76.0 H Lymphocytes % (Manual) Monocytes % (Manual) Seg Neutrophils # Man 9.1 H Lymphocytes # (Manual) Monocytes # (Manual) D-Dimer ABG pH ABG pO2 ABG HCO3 ABG O2 Saturation ABG Base Excess ABG Hemoglobin Oxyhemoglobin Sodium Potassium Chloride BUN 36 H Creatinine Glucose 133 H POC Glucose Lactic Acid Calcium Phosphorus Magnesium Ferritin AST 57 H Lactate Dehydrogenase C-Reactive Protein NT-Pro-B Natriuret Pep 1619 H Albumin 3.3 L Urine WBC (Auto) Urine Creatinine Coronavirus (PCR) 02/18/21 02/18/21 02/19/21 Unknown Unknown 07:32 WBC RBC Hgb Hct RDW Plt Count Seg Neuts % (Manual) Lymphocytes % (Manual) Monocytes % (Manual) Seg Neutrophils # Man Lymphocytes # (Manual) Monocytes # (Manual) D-Dimer ABG pH ABG pO2 ABG HCO3 ABG O2 Saturation ABG Base Excess ABG Hemoglobin Oxyhemoglobin Sodium 148 H D Potassium Chloride BUN 41 H Creatinine Glucose 123 H POC Glucose Lactic Acid Calcium Phosphorus Magnesium Ferritin AST 57 H Lactate Dehydrogenase C-Reactive Protein NT-Pro-B Natriuret Pep Albumin 3.7 L Urine WBC (Auto) 7.0 H Urine Creatinine Coronavirus (PCR) Positive A 02/19/21 02/19/21 02/20/21 07:32 08:43 05:00 WBC RBC Hgb Hct RDW Plt Count Seg Neuts % (Manual) Lymphocytes % (Manual) Monocytes % (Manual) Seg Neutrophils # Man Lymphocytes # (Manual) Monocytes # (Manual) D-Dimer > 39992 H ABG pH ABG pO2 ABG HCO3 ABG O2 Saturation ABG Base Excess ABG Hemoglobin Oxyhemoglobin Sodium 147 H Potassium Chloride 107.6 H BUN 36 H Creatinine Glucose POC Glucose Lactic Acid Calcium Phosphorus Magnesium Ferritin AST Lactate Dehydrogenase C-Reactive Protein 10.90 H NT-Pro-B Natriuret Pep Albumin 3.3 L Urine WBC (Auto) Urine Creatinine Coronavirus (PCR) 02/20/21 02/21/21 02/21/21 18:46 04:44 04:44 WBC 16.7 H RBC Hgb Hct RDW Plt Count Seg Neuts % (Manual) Lymphocytes % (Manual) Monocytes % (Manual) Seg Neutrophils # Man Lymphocytes # (Manual) Monocytes # (Manual) D-Dimer ABG pH 7.453 H ABG pO2 55.0 L ABG HCO3 26.6 H ABG O2 Saturation 88.3 L ABG Base Excess ABG Hemoglobin Oxyhemoglobin 86.8 L Sodium Potassium Chloride BUN 26 H Creatinine Glucose 111 H POC Glucose Lactic Acid Calcium Phosphorus Magnesium Ferritin AST Lactate Dehydrogenase C-Reactive Protein NT-Pro-B Natriuret Pep Albumin 3.4 L Urine WBC (Auto) Urine Creatinine Coronavirus (PCR) 02/22/21 02/23/21 02/23/21 04:47 09:05 09:05 WBC 19.3 H RBC 5.29 H Hgb 15.2 H Hct 47.7 H D RDW Plt Count Seg Neuts % (Manual) 82.0 H Lymphocytes % (Manual) 6.0 L Monocytes % (Manual) Seg Neutrophils # Man 15.8 H Lymphocytes # (Manual) Monocytes # (Manual) 1.0 H D-Dimer ABG pH ABG pO2 ABG HCO3 ABG O2 Saturation ABG Base Excess ABG Hemoglobin Oxyhemoglobin Sodium Potassium Chloride BUN 25 H 27 H Creatinine Glucose 125 H POC Glucose Lactic Acid Calcium Phosphorus Magnesium Ferritin AST Lactate Dehydrogenase C-Reactive Protein NT-Pro-B Natriuret Pep Albumin 3.3 L Urine WBC (Auto) Urine Creatinine Coronavirus (PCR) 02/23/21 02/23/21 02/24/21 11:33 16:24 04:50 WBC 14.8 H RBC Hgb Hct RDW Plt Count Seg Neuts % (Manual) Lymphocytes % (Manual) Monocytes % (Manual) Seg Neutrophils # Man Lymphocytes # (Manual) Monocytes # (Manual) D-Dimer ABG pH ABG pO2 ABG HCO3 ABG O2 Saturation ABG Base Excess ABG Hemoglobin Oxyhemoglobin Sodium Potassium Chloride BUN Creatinine Glucose POC Glucose 117 H 163 H Lactic Acid Calcium Phosphorus Magnesium Ferritin AST Lactate Dehydrogenase C-Reactive Protein NT-Pro-B Natriuret Pep Albumin Urine WBC (Auto) Urine Creatinine Coronavirus (PCR) 02/24/21 02/25/21 02/27/21 04:50 21:12 04:57 WBC 17.0 H RBC Hgb Hct 43.4 H RDW Plt Count Seg Neuts % (Manual) 84.0 H Lymphocytes % (Manual) 4.0 L Monocytes % (Manual) Seg Neutrophils # Man 14.3 H Lymphocytes # (Manual) 0.7 L Monocytes # (Manual) 0.9 H D-Dimer ABG pH ABG pO2 ABG HCO3 ABG O2 Saturation ABG Base Excess ABG Hemoglobin Oxyhemoglobin Sodium Potassium Chloride BUN 23 H Creatinine Glucose POC Glucose 175 H Lactic Acid Calcium Phosphorus Magnesium Ferritin AST Lactate Dehydrogenase C-Reactive Protein NT-Pro-B Natriuret Pep Albumin Urine WBC (Auto) Urine Creatinine Coronavirus (PCR) 02/27/21 02/27/21 02/27/21 04:57 04:57 04:57 WBC RBC Hgb Hct RDW Plt Count Seg Neuts % (Manual) Lymphocytes % (Manual) Monocytes % (Manual) Seg Neutrophils # Man Lymphocytes # (Manual) Monocytes # (Manual) D-Dimer 5013.37 H ABG pH ABG pO2 ABG HCO3 ABG O2 Saturation ABG Base Excess ABG Hemoglobin Oxyhemoglobin Sodium Potassium Chloride BUN 23 H Creatinine 0.5 L Glucose 113 H POC Glucose Lactic Acid Calcium Phosphorus Magnesium Ferritin 1272.0 H AST Lactate Dehydrogenase 438 H C-Reactive Protein 5.80 H NT-Pro-B Natriuret Pep Albumin Urine WBC (Auto) Urine Creatinine Coronavirus (PCR) 02/27/21 02/27/21 02/28/21 17:53 21:12 07:40 WBC RBC Hgb Hct RDW Plt Count Seg Neuts % (Manual) Lymphocytes % (Manual) Monocytes % (Manual) Seg Neutrophils # Man Lymphocytes # (Manual) Monocytes # (Manual) D-Dimer ABG pH ABG pO2 ABG HCO3 ABG O2 Saturation ABG Base Excess ABG Hemoglobin Oxyhemoglobin Sodium Potassium Chloride BUN Creatinine Glucose POC Glucose 159 H 112 H 123 H Lactic Acid Calcium Phosphorus Magnesium Ferritin AST Lactate Dehydrogenase C-Reactive Protein NT-Pro-B Natriuret Pep Albumin Urine WBC (Auto) Urine Creatinine Coronavirus (PCR) 02/28/21 02/28/21 02/28/21 11:42 16:20 22:26 WBC RBC Hgb Hct RDW Plt Count Seg Neuts % (Manual) Lymphocytes % (Manual) Monocytes % (Manual) Seg Neutrophils # Man Lymphocytes # (Manual) Monocytes # (Manual) D-Dimer ABG pH ABG pO2 ABG HCO3 ABG O2 Saturation ABG Base Excess ABG Hemoglobin Oxyhemoglobin Sodium Potassium Chloride BUN Creatinine Glucose POC Glucose 112 H 138 H 129 H Lactic Acid Calcium Phosphorus Magnesium Ferritin AST Lactate Dehydrogenase C-Reactive Protein NT-Pro-B Natriuret Pep Albumin Urine WBC (Auto) Urine Creatinine Coronavirus (PCR) 03/01/21 03/01/21 03/01/21 05:12 05:12 05:12 WBC 15.0 H RBC 5.05 H Hgb Hct 44.7 H RDW Plt Count Seg Neuts % (Manual) 71.0 H Lymphocytes % (Manual) 11.0 L Monocytes % (Manual) 12.0 H Seg Neutrophils # Man 10.7 H Lymphocytes # (Manual) Monocytes # (Manual) 1.8 H D-Dimer 3469.99 H ABG pH ABG pO2 ABG HCO3 ABG O2 Saturation ABG Base Excess ABG Hemoglobin Oxyhemoglobin Sodium Potassium Chloride 97.3 L BUN Creatinine 0.5 L Glucose 115 H POC Glucose Lactic Acid Calcium Phosphorus Magnesium Ferritin AST Lactate Dehydrogenase 385 H C-Reactive Protein 11.20 H NT-Pro-B Natriuret Pep Albumin 2.8 L Urine WBC (Auto) Urine Creatinine Coronavirus (PCR) 03/01/21 03/01/21 03/01/21 05:12 07:30 11:42 WBC RBC Hgb Hct RDW Plt Count Seg Neuts % (Manual) Lymphocytes % (Manual) Monocytes % (Manual) Seg Neutrophils # Man Lymphocytes # (Manual) Monocytes # (Manual) D-Dimer ABG pH ABG pO2 ABG HCO3 ABG O2 Saturation ABG Base Excess ABG Hemoglobin Oxyhemoglobin Sodium Potassium Chloride BUN Creatinine Glucose POC Glucose 130 H 143 H Lactic Acid Calcium Phosphorus Magnesium Ferritin 1526.0 H AST Lactate Dehydrogenase C-Reactive Protein NT-Pro-B Natriuret Pep Albumin Urine WBC (Auto) Urine Creatinine Coronavirus (PCR) 03/01/21 03/01/21 03/01/21 15:28 17:53 21:16 WBC RBC Hgb Hct RDW Plt Count Seg Neuts % (Manual) Lymphocytes % (Manual) Monocytes % (Manual) Seg Neutrophils # Man Lymphocytes # (Manual) Monocytes # (Manual) D-Dimer ABG pH ABG pO2 ABG HCO3 ABG O2 Saturation ABG Base Excess ABG Hemoglobin Oxyhemoglobin Sodium Potassium Chloride BUN Creatinine Glucose POC Glucose 138 H 120 H 157 H Lactic Acid Calcium Phosphorus Magnesium Ferritin AST Lactate Dehydrogenase C-Reactive Protein NT-Pro-B Natriuret Pep Albumin Urine WBC (Auto) Urine Creatinine Coronavirus (PCR) 03/01/21 03/02/21 03/02/21 22:07 07:44 11:40 WBC RBC Hgb Hct RDW Plt Count Seg Neuts % (Manual) Lymphocytes % (Manual) Monocytes % (Manual) Seg Neutrophils # Man Lymphocytes # (Manual) Monocytes # (Manual) D-Dimer ABG pH ABG pO2 35.9 L* ABG HCO3 31.2 H ABG O2 Saturation 68.0 L ABG Base Excess 6.1 H ABG Hemoglobin Oxyhemoglobin 66.1 L Sodium Potassium Chloride BUN Creatinine Glucose POC Glucose 125 H 203 H Lactic Acid Calcium Phosphorus Magnesium Ferritin AST Lactate Dehydrogenase C-Reactive Protein NT-Pro-B Natriuret Pep Albumin Urine WBC (Auto) Urine Creatinine Coronavirus (PCR) 03/02/21 03/02/21 03/02/21 12:13 13:00 17:15 WBC RBC Hgb Hct RDW Plt Count Seg Neuts % (Manual) Lymphocytes % (Manual) Monocytes % (Manual) Seg Neutrophils # Man Lymphocytes # (Manual) Monocytes # (Manual) D-Dimer ABG pH ABG pO2 36.0 L* ABG HCO3 29.5 H ABG O2 Saturation 68.7 L ABG Base Excess 4.7 H ABG Hemoglobin Oxyhemoglobin 66.8 L Sodium Potassium Chloride BUN Creatinine Glucose POC Glucose 130 H 126 H Lactic Acid Calcium Phosphorus Magnesium Ferritin AST Lactate Dehydrogenase C-Reactive Protein NT-Pro-B Natriuret Pep Albumin Urine WBC (Auto) Urine Creatinine Coronavirus (PCR) 03/02/21 03/03/21 03/03/21 21:45 08:02 10:05 WBC 19.2 H RBC Hgb Hct 44.9 H RDW Plt Count Seg Neuts % (Manual) 85.0 H Lymphocytes % (Manual) 7.0 L Monocytes % (Manual) Seg Neutrophils # Man 16.3 H Lymphocytes # (Manual) Monocytes # (Manual) 1.2 H D-Dimer ABG pH ABG pO2 ABG HCO3 ABG O2 Saturation ABG Base Excess ABG Hemoglobin Oxyhemoglobin Sodium Potassium Chloride BUN Creatinine Glucose POC Glucose 113 H 128 H Lactic Acid Calcium Phosphorus Magnesium Ferritin AST Lactate Dehydrogenase C-Reactive Protein NT-Pro-B Natriuret Pep Albumin Urine WBC (Auto) Urine Creatinine Coronavirus (PCR) 03/03/21 03/03/21 03/03/21 10:05 12:45 16:31 WBC RBC Hgb Hct RDW Plt Count Seg Neuts % (Manual) Lymphocytes % (Manual) Monocytes % (Manual) Seg Neutrophils # Man Lymphocytes # (Manual) Monocytes # (Manual) D-Dimer ABG pH ABG pO2 47.7 L ABG HCO3 31.5 H ABG O2 Saturation 82.5 L ABG Base Excess 5.6 H ABG Hemoglobin Oxyhemoglobin 80.4 L Sodium Potassium Chloride 97.8 L BUN 23 H Creatinine Glucose 141 H POC Glucose 126 H Lactic Acid Calcium Phosphorus Magnesium Ferritin AST Lactate Dehydrogenase C-Reactive Protein NT-Pro-B Natriuret Pep Albumin 3.2 L Urine WBC (Auto) Urine Creatinine Coronavirus (PCR) 03/03/21 03/04/21 03/04/21 20:52 07:24 11:04 WBC RBC Hgb Hct RDW Plt Count Seg Neuts % (Manual) Lymphocytes % (Manual) Monocytes % (Manual) Seg Neutrophils # Man Lymphocytes # (Manual) Monocytes # (Manual) D-Dimer ABG pH ABG pO2 ABG HCO3 ABG O2 Saturation ABG Base Excess ABG Hemoglobin Oxyhemoglobin Sodium Potassium Chloride BUN Creatinine Glucose POC Glucose 152 H 126 H 142 H Lactic Acid Calcium Phosphorus Magnesium Ferritin AST Lactate Dehydrogenase C-Reactive Protein NT-Pro-B Natriuret Pep Albumin Urine WBC (Auto) Urine Creatinine Coronavirus (PCR) 03/04/21 03/04/21 03/04/21 11:05 15:33 21:12 WBC RBC Hgb Hct RDW Plt Count Seg Neuts % (Manual) Lymphocytes % (Manual) Monocytes % (Manual) Seg Neutrophils # Man Lymphocytes # (Manual) Monocytes # (Manual) D-Dimer ABG pH ABG pO2 ABG HCO3 ABG O2 Saturation ABG Base Excess ABG Hemoglobin Oxyhemoglobin Sodium Potassium Chloride BUN 34 H Creatinine Glucose 143 H POC Glucose 114 H 180 H Lactic Acid Calcium Phosphorus Magnesium Ferritin AST Lactate Dehydrogenase C-Reactive Protein NT-Pro-B Natriuret Pep Albumin Urine WBC (Auto) Urine Creatinine Coronavirus (PCR) 03/04/21 03/05/21 03/05/21 21:30 07:51 10:10 WBC 17.8 H RBC Hgb 14.5 H Hct 45.8 H RDW 15.3 H Plt Count 446 H Seg Neuts % (Manual) 77.0 H Lymphocytes % (Manual) 12.0 L Monocytes % (Manual) Seg Neutrophils # Man 13.7 H Lymphocytes # (Manual) Monocytes # (Manual) 0.9 H D-Dimer ABG pH 7.473 H ABG pO2 34.1 L* ABG HCO3 29.7 H ABG O2 Saturation 66.4 L ABG Base Excess 5.6 H ABG Hemoglobin Oxyhemoglobin 64.9 L Sodium Potassium Chloride BUN Creatinine Glucose POC Glucose 144 H Lactic Acid Calcium Phosphorus Magnesium Ferritin AST Lactate Dehydrogenase C-Reactive Protein NT-Pro-B Natriuret Pep Albumin Urine WBC (Auto) Urine Creatinine Coronavirus (PCR) 03/05/21 03/05/21 03/05/21 10:10 11:41 12:23 WBC RBC Hgb Hct RDW Plt Count Seg Neuts % (Manual) Lymphocytes % (Manual) Monocytes % (Manual) Seg Neutrophils # Man Lymphocytes # (Manual) Monocytes # (Manual) D-Dimer ABG pH 7.226 L ABG pO2 50.5 L ABG HCO3 32.8 H ABG O2 Saturation 73.6 L ABG Base Excess ABG Hemoglobin 18.2 H Oxyhemoglobin 71.8 L Sodium Potassium 3.5 L Chloride BUN 51 H Creatinine Glucose 217 H POC Glucose 124 H Lactic Acid Calcium Phosphorus Magnesium Ferritin AST Lactate Dehydrogenase C-Reactive Protein NT-Pro-B Natriuret Pep Albumin 3.1 L Urine WBC (Auto) Urine Creatinine Coronavirus (PCR) 03/05/21 03/05/21 03/06/21 16:40 22:39 00:37 WBC RBC Hgb Hct RDW Plt Count Seg Neuts % (Manual) Lymphocytes % (Manual) Monocytes % (Manual) Seg Neutrophils # Man Lymphocytes # (Manual) Monocytes # (Manual) D-Dimer ABG pH ABG pO2 ABG HCO3 ABG O2 Saturation ABG Base Excess ABG Hemoglobin Oxyhemoglobin Sodium Potassium Chloride BUN Creatinine Glucose POC Glucose 138 H 139 H 126 H Lactic Acid Calcium Phosphorus Magnesium Ferritin AST Lactate Dehydrogenase C-Reactive Protein NT-Pro-B Natriuret Pep Albumin Urine WBC (Auto) Urine Creatinine Coronavirus (PCR) 03/06/21 03/06/21 03/06/21 04:25 06:13 06:13 WBC 18.4 H RBC Hgb Hct RDW 15.3 H Plt Count Seg Neuts % (Manual) Lymphocytes % (Manual) Monocytes % (Manual) Seg Neutrophils # Man Lymphocytes # (Manual) Monocytes # (Manual) D-Dimer ABG pH 7.028 L* ABG pO2 ABG HCO3 33.8 H ABG O2 Saturation 92.5 L ABG Base Excess ABG Hemoglobin Oxyhemoglobin 90.6 L Sodium 149 H Potassium Chloride 107.2 H BUN 62 H Creatinine 1.9 H D Glucose 140 H POC Glucose Lactic Acid Calcium 7.7 L D Phosphorus 10.70 H Magnesium 2.40 H Ferritin AST Lactate Dehydrogenase C-Reactive Protein NT-Pro-B Natriuret Pep Albumin Urine WBC (Auto) Urine Creatinine Coronavirus (PCR) 03/06/21 03/06/21 03/06/21 06:13 09:00 12:00 WBC RBC Hgb Hct RDW Plt Count Seg Neuts % (Manual) Lymphocytes % (Manual) Monocytes % (Manual) Seg Neutrophils # Man Lymphocytes # (Manual) Monocytes # (Manual) D-Dimer ABG pH ABG pO2 ABG HCO3 ABG O2 Saturation ABG Base Excess ABG Hemoglobin Oxyhemoglobin Sodium Potassium Chloride BUN Creatinine Glucose POC Glucose 155 H 122 H Lactic Acid Calcium Phosphorus Magnesium Ferritin AST Lactate Dehydrogenase C-Reactive Protein NT-Pro-B Natriuret Pep Albumin Urine WBC (Auto) Urine Creatinine 247.7 H Coronavirus (PCR) 03/06/21 Unknown WBC RBC Hgb Hct RDW Plt Count Seg Neuts % (Manual) Lymphocytes % (Manual) Monocytes % (Manual) Seg Neutrophils # Man Lymphocytes # (Manual) Monocytes # (Manual) D-Dimer ABG pH 7.253 L ABG pO2 66.5 L ABG HCO3 31.3 H ABG O2 Saturation 91.8 L ABG Base Excess ABG Hemoglobin 16.8 H Oxyhemoglobin 90.1 L Sodium Potassium Chloride BUN Creatinine Glucose POC Glucose Lactic Acid Calcium Phosphorus Magnesium Ferritin AST Lactate Dehydrogenase C-Reactive Protein NT-Pro-B Natriuret Pep Albumin Urine WBC (Auto) Urine Creatinine Coronavirus (PCR)
[2021-03-06] MEDS: INSULIN GLARGINE 100 UNITS/ML SUB-Q SCH (22:30)
[2021-03-07] MEDS: INSULIN LISPRO 100 UNIT/ML SUB-Q SCH ×4 (00:16→18:21)
[2021-03-07] MEDS: FREE WATER PO SCH ×6 (02:15→21:34)
[2021-03-07] MEDS: VASOPRESSIN 20 UNIT in SODIUM CHLORIDE 0.9% 100 ML IV SCH ×2 (03:32→15:06)
[2021-03-07] MEDS: fentaNYL DRIP Premix 2,000 MCG/100 ML BAG IV SCH ×3 (03:32→21:20)
[2021-03-07 05:27] LABS: ABG Base Excess 1.3 mmol/L (-2.0-3.0); ABG HCO3 29.3 mmol/L (20.0-26.0); ABG Methemoglobin 0.9 % (0.0-1.5); ABG Oxygen Saturation 96.2 % (95.0-99.0); ABG PCO2 63.8 mm Hg; ABG PH 7.28 pH Units (7.350-7.450); ABG PO2 88.8 mm Hg (80.0-90.0)
[2021-03-07 05:43] LABS: Hematocrit 37.3 % (30.3-42.9); Hemoglobin 11.5 gm/dl (10.1-14.3); Mean Corpuscular HGB Conc 31 % (30-34); Mean Corpuscular Volume 91 fl (79-97); Platelet Count 317 K/mm3 (140-440); Red Blood Count 4.09 M/mm3 (3.65-5.03); Red Cell Distribution Width 15.1 % (13.2-15.2)
[2021-03-07 05:58] LABS: Calcium 9.1 mg/dL (8.4-10.2)
[2021-03-07] MEDS: NORepinephrine/NS 8 MG-250 ML 8 MG/250 ML INFUS..BTL IV SCH ×2 (07:14→18:29)
[2021-03-07] MEDS: GABAPENTIN 400 MG CAP PO SCH ×2 (09:09→21:34)
[2021-03-07] MEDS: SERTRALINE 50 MG TAB PO SCH (09:09)
[2021-03-07] MEDS: ENOXAPARIN 100 MG/1 ML INJ SUB-Q SCH (09:09)
[2021-03-07] MEDS: FAMOTIDINE 20 MG/2 ML INJ IV SCH ×2 (09:10→21:36)
[2021-03-07] MEDS: SENNOSIDES/DOCUSATE SODIUM 8.6/50 MG TAB FEEDTUBE SCH ×2 (09:10→21:36)
[2021-03-07] MEDS ORDERED: LACTATED RINGERS 1,000 ML IV SCH (11:45)
--- NOTE | 2021-03-07 12:19 | Progress Note ---
<NATY MCELROY - Last Filed: 03/07/21 14:23> Assessment and Plan Assessment and plan: This is a 61-year-old female with past medical history of HTN, DM, and DVT on Eliquis at home admitted for acute hypoxic Respiratory failure 2/2 COVID pneumonia now on ventilatory support. Hospital Course to Date: 02/19/2020 Patient on 50% Ventimask Covid positive Continue steroids May DC antibiotics Respiratory assessment and treatment 02/19: Patient still hypoxic, encourage prone positioning, Pulmonary and ID consult. Will obtain CTA chest to evaluate for PE. Continue steroid therapy and oxygen therapy wean as tolerated. Continuous pulse oximeter. Plan discussed with the patient. 02/20: Patient seen and examined, remains on NRBM. awaiting CT CHEST WITH ANGIO Ordered yesterday. Encourage proning the patient says she was not proned yesterday discussed with nursing staff. Continue steroid therapy and remdesivir. Patient was seen by ID and as documented by ID"She is a candidate for Actemra based on CRp and O2 requirements. unfortunately we have not been getting procalcitonin results. -ordered Actemra once (afebrile, white count only mildly elevated in the setting of steroids)" Discussed plan of care with the nurse. Also called to updated the patients sister listed as NOK but got voice mail 02/21: Continue steroids, remdesivir, patient received 1 dose of Actemra but unable to get the second dose due to availability. CTA showed dense consolidation but no effusion and no pulmonary embolism patient does have a lower extremity DVT. Eliquis continues at full dose of 5 mg twice daily we will continue to monitor closely. Prognosis is guarded counseling for compliance for 15 minutes. 02/22: Patient clinically not improving much of switch the patient to Lovenox. Prognosis remains guarded. Continue anticoagulation due to DVT still suspicious of pulmonary embolism as a result we will obtain echocardiogram and vascular consult per pulmonary request which I agree with. I will also transfer the patient to stepdown unit for closer monitoring. 02/23: Vascular input noted agree the patient has subsegmental bibasilar pulmonary embolism but not enough to warrant intervention. Does not feel that this is contributing majority to her hypoxia. Nevertheless we will switch patient from Eliquis to Lovenox. Continue current management with remdesivir 02/24: Patient seen and examined, remains on anticoagulation, continue remedsivir and steroids. prone as tolerated, will give additional lasix today. Guarded prognosis. 02/25 A&O x 3, C/O mild cough with mucoid expectorant. Denies CP or shortness of breath. Remains on HFNC. pulmonary note and lab results reviewed 02/26: AOX3, proning on encounter. Encouraged continued movement while in bed and with assistance of care staff. Remains on HFNC. Last day of decadron today. 02/27: Patient encouraged to continue proning and remain active. Discussed with PT to come work with patient to mobilize. Will d/w CM for assisted placement solution. 02/28: Patient stated she would like to be a full code. Working with CM for LTAC placement. 03/01: Awaiting LTAC placement. Remains full code. Spoke with daughter Meghna who was updated on patient's case. 03/02: Sats in low 80s on hi lfow. Blood gas shows pao2 = 35.9. will start bipap, d/w IMCU RN who will notify RT. repeat abg in 1 hr. Poor prognosis. 03/03; Sats in low 90's on bipap. Repeat abg this AM demosntrates marginal improvement in PaO2. PCCM d/w daughter, patient and her daughter would like intubation should she continue to deteriorate. Prognosis remains poor. 03/04: de-escalated to HFNC 40/100 + venti. Will continue with bipap prn. Continue steroids. Dispo is still LTAC, placement is pending. 03/05: Resipratory distress this morning. Sats 69-70%. subsequently intubated. No w icu level of care. Family wants continue aggressive measures. Will follow [facility] recs. 03/06: Patient with ISH this am probably due to hypotension vs diuretic use, fluid bolus challenge this am. Urine lytes ordered. FWF added for hypernatremia. 03/07: Patient responded to fluid challenge, renal function improved, UOP better. Weaning down pressors, additional IVF bolus today, plan to wean down on pressors requirement. ABG improved today, wean down Fio2 as tolerated. Okay to start trickle feeds. Assessment and Plan #Acute respiratory failure with hypoxia 2/2 COVID Pneumonia #ARSD - Intubated on 1/18 - Vent setting:CMV- 100%,20,30,350 - AM ABG noted - CCM consulted, appreciate recommendations - Continue IV Steroids and Nebs per CCM - VAP bundle addressed - Aspiration precaution HOB above 30 - Sedation for RASS goal 0f -4 - Daily ABG and CXR - Continue SPO2 monitoring for SPO2 goal above 92% #Sepsis #Leukocytosis #Multifocal pneumonia #COVID Pneumonia - Now on pressors, Levo and Vaso - Titrate prerssors for MAP goal above 65 - Patient afebrile, with leukocytosis - Blood culture NGTD, sputum culture pending - Patient completed steroids course - Hold off on IV ABx and IV steroids for now - Continue to F/U on B.cult - Daily CBC monitor #Acute Kidney Injury(ISH) most likely ATN #Hypernatremia - Probably due to hypotension vs diuretic use - Patient was on IV Lasix - Improved with IV hydration todya - additional 1L Bolus today - Continue FWF - Strict intake and output - Avoid nephrotoxic medications; Renally dose medications - Head in place - Monitor and replace electrolytes as needed - Trend BMP #T2DM (type 2 diabetes mellitus) - SSI Q6hrs - Lantus Qhs - Avoid hypoglycemia #Acute RLE DVT - BLE doppler positive for DVT in right posteroir tibial vein - CTA chest negative PE - Continue AC- Lovenox SubQ The high probability of a clinically significant, sudden or life threatening deterioration of the [multiple] system(s) required my full and direct attention, intervention and personal management. The aggregate critical care time was [60] minutes. This time is in addition to time spent performing reported procedures but includes the following: [X] Data Review and interpretation [X] Patient assessment and monitoring of vital signs [X] Documentation [X] Medication orders and management Disposition Plan: ICU Total Time Spent with Patient (Minutes): 60 History Interval history: Patient seen and examined at the bedside. Intubated and sedated, RASS-4. Remains on 2 pressors this am, still on full support on the vent. [facility] overnight Hospitalist Physical - Constitutional Vitals: Temp Pulse Resp BP Pulse Ox 98.0 F 70 30 H 96/63 98 03/07/21 08:10 03/07/21 12:00 03/07/21 11:30 03/07/21 12:00 03/07/21 12:00 General appearance: Present: no acute distress, well-nourished, other (Intubated and Sedated) - EENT Eyes: Present: PERRL - Respiratory Respiratory effort: normal Respiratory: bilateral: rhonchi - Cardiovascular Rhythm: regular Heart Sounds: Present: S1 & S2 - Extremities Extremities: no ischemia, pulses intact, pulses symmetrical Extremity abnormal: edema - Peripheral Assessment Generalized Edema Type: Non-pitting Edema Degree: 1+ Capillary Refill: < 3 seconds Skin Temperature: Warm - Abdominal General gastrointestinal: soft, non-distended, normal bowel sounds - Integumentary Integumentary: Present: warm, dry - Psychiatric Psychiatric: other (Intubated and Sedated) - Neurologic Neurologic: other (Intubated and Sedated) - Allied Health Allied health notes reviewed: nursing Results - Labs CBC & Chem 7: 03/07/21 04:05 03/07/21 04:05 Labs: Laboratory Last Values WBC 18.0 K/mm3 (4.5-11.0) H 03/07/21 04:05 RBC 4.09 M/mm3 (3.65-5.03) 03/07/21 04:05 Hgb 11.5 gm/dl (10.1-14.3) 03/07/21 04:05 Hct 37.3 % (30.3-42.9) 03/07/21 04:05 MCV 91 fl (79-97) 03/07/21 04:05 MCH 28 pg (28-32) 03/07/21 04:05 MCHC 31 % (30-34) 03/07/21 04:05 RDW 15.1 % (13.2-15.2) 03/07/21 04:05 Plt Count 317 K/mm3 (140-440) 03/07/21 04:05 Add Manual Diff Complete 03/05/21 10:10 Total Counted 100 03/05/21 10:10 Seg Neuts % (Manual) 77.0 % (40.0-70.0) H 03/05/21 10:10 Band Neutrophils % 3.0 % 03/05/21 10:10 Lymphocytes % (Manual) 12.0 % (13.4-35.0) L 03/05/21 10:10 Reactive Lymphs % (Man) 2.0 % 03/05/21 10:10 Monocytes % (Manual) 5.0 % (0.0-7.3) 03/05/21 10:10 Eosinophils % (Manual) 1.0 % (0.0-4.3) 03/05/21 10:10 Basophils % (Manual) 0 % (0.0-1.8) 03/05/21 10:10 Metamyelocytes % 0 % 03/05/21 10:10 Myelocytes % 0 % 03/05/21 10:10 Promyelocytes % 0 % 03/05/21 10:10 Blast Cells % 0 % 03/05/21 10:10 Nucleated RBC % Not Reportable 03/05/21 10:10 Seg Neutrophils # Man 13.7 K/mm3 (1.8-7.7) H 03/05/21 10:10 Band Neutrophils # 0.5 K/mm3 03/05/21 10:10 Lymphocytes # (Manual) 2.1 K/mm3 (1.2-5.4) 03/05/21 10:10 Abs React Lymphs (Man) 0.4 K/mm3 03/05/21 10:10 Monocytes # (Manual) 0.9 K/mm3 (0.0-0.8) H 03/05/21 10:10 Eosinophils # (Manual) 0.2 K/mm3 (0.0-0.4) 03/05/21 10:10 Basophils # (Manual) 0.0 K/mm3 (0.0-0.1) 03/05/21 10:10 Metamyelocytes # 0.0 K/mm3 03/05/21 10:10 Myelocytes # 0.0 K/mm3 03/05/21 10:10 Promyelocytes # 0.0 K/mm3 03/05/21 10:10 Blast Cells # 0.0 K/mm3 03/05/21 10:10 WBC Morphology Not Reportable 03/05/21 10:10 Hypersegmented Neuts Not Reportable 03/05/21 10:10 Hyposegmented Neuts Not Reportable 03/05/21 10:10 Hypogranular Neuts Not Reportable 03/05/21 10:10 Smudge Cells Not Reportable 03/05/21 10:10 Toxic Granulation Not Reportable 03/05/21 10:10 Toxic Vacuolation Not Reportable 03/05/21 10:10 Dohle Bodies Not Reportable 03/05/21 10:10 Pelger-Huet Anomaly Not Reportable 03/05/21 10:10 Cindy Rods Not Reportable 03/05/21 10:10 Platelet Estimate Consistent w auto 03/05/21 10:10 Clumped Platelets Not Reportable 03/05/21 10:10 Plt Clumps, EDTA Not Reportable 03/05/21 10:10 Large Platelets 1+ 03/05/21 10:10 Giant Platelets Not Reportable 03/05/21 10:10 Platelet Satelliting Not Reportable 03/05/21 10:10 Plt Morphology Comment Not Reportable 03/05/21 10:10 RBC Morphology Not Reportable 03/05/21 10:10 Dimorphic RBCs Not Reportable 03/05/21 10:10 Polychromasia Few 03/05/21 10:10 Hypochromasia Not Reportable 03/05/21 10:10 Poikilocytosis Not Reportable 03/05/21 10:10 Anisocytosis 1+ 03/05/21 10:10 Microcytosis Not Reportable 03/05/21 10:10 Macrocytosis Not Reportable 03/05/21 10:10 Spherocytes Not Reportable 03/05/21 10:10 Pappenheimer Bodies Not Reportable 03/05/21 10:10 Sickle Cells Not Reportable 03/05/21 10:10 Target Cells Not Reportable 03/05/21 10:10 Tear Drop Cells Not Reportable 03/05/21 10:10 Ovalocytes Not Reportable 03/05/21 10:10 Helmet Cells Not Reportable 03/05/21 10:10 [place] Bodies Not Reportable 03/05/21 10:10 [place] Rings Not Reportable 03/05/21 10:10 Mclean Cells Not Reportable 03/05/21 10:10 Bite Cells Not Reportable 03/05/21 10:10 Crenated Cell Not Reportable 03/05/21 10:10 Elliptocytes Not Reportable 03/05/21 10:10 Acanthocytes (Spur) Not Reportable 03/05/21 10:10 Rouleaux Not Reportable 03/05/21 10:10 Hemoglobin C Crystals Not Reportable 03/05/21 10:10 Schistocytes Not Reportable 03/05/21 10:10 Malaria parasites Not Reportable 03/05/21 10:10 Pedro Pablo Bodies Not Reportable 03/05/21 10:10 Hem Pathologist Commnt No 03/05/21 10:10 PT 13.9 Sec. (12.2-14.9) 02/17/21 14:34 INR 0.96 (0.87-1.13) 02/17/21 14:34 APTT 26.4 Sec. (24.2-36.6) 02/17/21 14:34 D-Dimer 3469.99 ng/mlDDU (0-234) H 03/01/21 05:12 ABG pH 7.280 pH Units (7.350-7.450) L 03/07/21 04:49 ABG pCO2 63.8 mm Hg 03/07/21 04:49 ABG pO2 88.8 mm Hg (80.0-90.0) 03/07/21 04:49 ABG HCO3 29.3 mmol/L (20.0-26.0) H 03/07/21 04:49 ABG O2 Saturation 96.2 % (95.0-99.0) 03/07/21 04:49 ABG O2 Content 16.0 (0.0-44) 03/07/21 04:49 ABG Base Excess 1.3 mmol/L (-2.0-3.0) 03/07/21 04:49 ABG Hemoglobin 12.0 gm/dl (12.0-16.0) 03/07/21 04:49 ABG Carboxyhemoglobin 1.0 % (0.0-5.0) 03/07/21 04:49 ABG Methemoglobin 0.9 % (0.0-1.5) 03/07/21 04:49 Oxyhemoglobin 94.4 % (95.0-99.0) L 03/07/21 04:49 FiO2 100 % 03/07/21 04:49 Sodium 143 mmol/L (137-145) 03/07/21 04:05 Potassium 4.5 mmol/L (3.6-5.0) 03/07/21 04:05 Chloride 102.9 mmol/L (98-107) 03/07/21 04:05 Carbon Dioxide 27 mmol/L (22-30) 03/07/21 04:05 Anion Gap 18 mmol/L 03/07/21 04:05 BUN 75 mg/dL (7-17) H 03/07/21 04:05 Creatinine 1.5 mg/dL (0.6-1.2) H 03/07/21 04:05 Estimated GFR 43 ml/min 03/07/21 04:05 BUN/Creatinine Ratio 50 % 03/07/21 04:05 Glucose 113 mg/dL (65-100) H 03/07/21 04:05 POC Glucose 113 mg/dL (70-105) H 03/07/21 12:13 Lactic Acid 1.60 mmol/L (0.7-2.0) 02/17/21 18:39 Calcium 9.1 mg/dL (8.4-10.2) D 03/07/21 04:05 Phosphorus 10.70 mg/dL (2.5-4.5) H 03/06/21 06:13 Magnesium 2.40 mg/dL (1.7-2.3) H 03/06/21 06:13 Ferritin 1526.0 ng/mL (10.0-200.0) H 03/01/21 05:12 Total Bilirubin 0.30 mg/dL (0.1-1.2) 03/05/21 10:10 Direct Bilirubin < 0.2 mg/dL (0-0.2) 02/17/21 14:34 Indirect Bilirubin 0.1 mg/dL 02/17/21 14:34 AST 38 units/L (5-40) 03/05/21 10:10 ALT 44 units/L (7-56) 03/05/21 10:10 Alkaline Phosphatase 78 units/L (35-129) 03/05/21 10:10 Lactate Dehydrogenase 385 units/L (91-180) H 03/01/21 05:12 C-Reactive Protein 11.20 mg/dL (0.00-1.30) H 03/01/21 05:12 NT-Pro-B Natriuret Pep 86.77 pg/mL (0-900) 02/20/21 16:34 Total Protein 7.7 g/dL (6.3-8.2) 03/05/21 10:10 Albumin 3.1 g/dL (3.9-5) L 03/05/21 10:10 Albumin/Globulin Ratio 0.7 % 03/05/21 10:10 Triglycerides 171 mg/dL (2-149) H 03/07/21 04:05 Procalcitonin 0.11 ng/mL (<0.15) 02/19/21 07:32 Urine Color Cassandra (Yellow) 02/18/21 Unknown Urine Turbidity Cloudy (Clear) 02/18/21 Unknown Urine pH 5.0 (5.0-7.0) 02/18/21 Unknown Ur Specific [place] 1.027 (1.003-1.030) 02/18/21 Unknown Urine Protein 100 mg/dl mg/dL (Negative) 02/18/21 Unknown Urine Glucose (UA) Neg mg/dL (Negative) 02/18/21 Unknown Urine Ketones Neg mg/dL (Negative) 02/18/21 Unknown Urine Blood Neg (Negative) 02/18/21 Unknown Urine Nitrite Neg (Negative) 02/18/21 Unknown Urine Bilirubin Neg (Negative) 02/18/21 Unknown Urine Urobilinogen < 2.0 mg/dL (<2.0) 02/18/21 Unknown Ur Leukocyte Esterase Neg (Negative) 02/18/21 Unknown Urine WBC (Auto) 7.0 /HPF (0.0-6.0) H 02/18/21 Unknown Urine RBC (Auto) 4.0 /HPF (0.0-6.0) 02/18/21 Unknown U Epithel Cells (Auto) 3.0 /HPF (0-13.0) 02/18/21 Unknown Urine Mucus 2+ /HPF 02/18/21 Unknown Urine Creatinine 247.7 mg/dL (0.1-20.0) H 03/06/21 09:00 Urine Sodium 25 mmol/L 03/06/21 09:00 Coronavirus (PCR) Positive (Negative) A 02/18/21 Unknown Microbiology: Microbiology 03/05/21 Unknown Tracheal Aspirate Sputum Culture - Preliminary Head/IV: Voiding Method Indwelling Catheter Active Medications - Current Medications Current Medications: Generic Name Dose Route Start Last Admin Trade Name Freq PRN Reason Stop Dose Admin Acetaminophen 650 mg 02/17/21 23:58 03/02/21 09:45 Acetaminophen 325 Mg Tab PO 650 mg Q4H PRN Administration Pain MILD(1-3)/Fever >100.5/BROWN Dextrose 50 ml 02/27/21 11:30 Dextrose 50% In Water (25gm) 50 Ml Syringe IV Q30MIN PRN Hypoglycemia Protocol Enoxaparin Sodium 90 mg 03/07/21 10:00 03/07/21 09:09 Enoxaparin 100 Mg/1 Ml Inj 1 mg/kg (90 mg) 90 mg SUB-Q Administration Q24HR [facility] Protocol Famotidine 10 mg 03/06/21 22:00 03/07/21 09:10 Famotidine 20 Mg/2 Ml Inj IV 10 mg BID DEISY Administration Fentanyl 50 mcg 03/05/21 09:38 Fentanyl 100 Mcg/2 Ml Inj IV Q10MIN PRN ANALGESIA Gabapentin 400 mg 02/19/21 04:00 03/07/21 09:09 Gabapentin 400 Mg Cap PO 400 mg BID DEISY Administration Hydrophilic Ointment 1 applic 03/05/21 09:39 Lip Therapy Vaseline TP Q2HR PRN Dry Lips Propofol 1,000 mg in 100 mls @ 2.585 mls/hr 03/05/21 10:00 03/07/21 07:13 Diprivan 10 Mg/Ml IV 20 mcg/kg/min TITR DEISY 10.342 mls/hr Administration Protocol 5 MCG/KG/MIN Fentanyl Citrate 2,000 mcg in 100 mls @ 4.309 mls/hr 03/05/21 10:00 03/07/21 08:12 Fentanyl Drip Premix IV 4 mcg/kg/hr TITR DEISY 17.237 mls/hr Administration Protocol 1 MCG/KG/HR Midazolam HCl 100 mg/ Sodium 100 mls @ 1 mls/hr 03/05/21 11:00 03/06/21 13:18 Chloride IV 3 mg/hr TITR DEISY 3 mls/hr Administration Protocol 1 MG/HR NORepinephrine/NS 8 MG-250 ML 8 mg in 250 mls @ 3.75 mls/hr 03/05/21 10:15 03/07/21 12:17 Norepinephrine/Ns 8 Mg-250 Ml (Double Conc) IV 12 mcg/min TITRATE DEISY 22.5 mls/hr Titration Protocol 2 MCG/MIN Dexmedetomidine HCl 400 mcg/ 104 mls @ 4.482 mls/hr 03/05/21 14:00 Sodium Chloride IV TITRATE DEISY Protocol 0.2 MCG/KG/HR Vasopressin 20 unit/ Sodium 101 mls @ 9.09 mls/hr 03/06/21 06:00 03/07/21 03:32 Chloride IV 0.03 units/min TITR DEISY 9.09 mls/hr Administration Protocol 0.03 UNITS/MIN Lactated Ringer's 1,000 mls @ 999 mls/hr 03/07/21 11:45 03/07/21 12:07 Lactated Ringers IV 03/07/21 12:46 999 mls/hr DIRECT DEISY Administration Insulin Glargine 10 units 03/02/21 22:00 03/06/21 22:30 Insulin Glargine 100 Units/Ml SUB-Q 10 units QHS DEISY Administration Insulin Human Lispro 0 unit 03/05/21 18:00 03/07/21 12:17 Insulin Lispro 100 Unit/Ml SUB-Q Not Given Q6HR [facility] Protocol Midazolam HCl 2 mg 03/05/21 10:11 03/05/21 10:53 Midazolam 2 Mg/2 Ml Inj IV 2 mg Q10MIN PRN Administration Sedation Multi-Ingred Cream/Lotion/Oil/Oint 1 applic 03/05/21 09:39 Mineral Oil/Petrolatum, White Ophth Oint 3.5 Gm OU Q4HR PRN Dry Eye(s) Ondansetron HCl 4 mg 02/17/21 23:58 Ondansetron 4 Mg/2 Ml Inj IV Q8H PRN Nausea And Vomiting Senna/Docusate Sodium 1 tab 03/05/21 10:00 03/07/21 09:10 Sennosides/Docusate Sodium 8.6/50 Mg Tab FEEDTUBE 1 tab BID DEISY Administration Sertraline HCl 50 mg 02/19/21 10:00 03/07/21 09:09 Sertraline 50 Mg Tab PO 50 mg QDAY DEISY Administration Sodium Chloride 10 ml 02/18/21 10:00 03/07/21 09:10 Sodium Chloride 0.9% 10 Ml Flush Syringe IV 10 ml BID DEISY Administration Sodium Chloride 10 ml 02/17/21 23:58 Sodium Chloride 0.9% 10 Ml Flush Syringe IV PRN PRN LINE FLUSH Nutrition/Malnutrition Assess - Dietary Evaluation Nutrition/Malnutrition Findings: Nutrition Notes Start: 02/25/21 16:10 Freq: Status: Active Protocol: Document 03/05/21 16:12 ALEC (Rec: 03/05/21 16:35 ALEC [id number]) Nutrition Notes Need for Assessment generated from: MD Order Initial or Follow up Brief Note Current Diet TF-Glucerna 1.2 Dagoberto @ 48 ml/hr (since B 03/06). Height 5 ft 6 in Weight 86.183 kg [place] Body Weight (kg) 59.09 BMI 30.7 Weight change and time frame No body weight change reported . Weight Status Obese Subjective/Other Information RD consult for write/manage TF . Pt is now sedated/intubated. TF ordered. F/U to check for tolerance. Percent of energy/protein needs met: Prescribed Glucerna 1.2 Dagoberto @ 48 ml/hr provides for energy/ protein needs (1,390 Kcal/70 g ) during LOS, 100% Kcal; 74% AA. Current % PO Other Minimum of two criteria No #2 Nutrition Diagnosis Inadequate oral intake Etiology Pt on mechanical ventilation. As Evidenced by Signs and Symptoms Pt on NPO. Is patient on ventilator? Yes Is Patient Ambulatory and/or Out of Bed No REE-([facility]-confined to bed) 1737.120 Calculation Used for Recommendations 70-80% energy needs Additional Notes Energy: 2158-1705 kcal/day Protein: 1.3 g/kg adjBW: 94 g/ day Fluids: 1 ml/kcal, or as per MD. Nutrition Intervention Change Diet Order: d/c Nutrition Support: Start Glucerna 1.2 Dagoberto @ 48 ml /hr. Flush: 80 ml water Q 4 hr, or as per MD. Kcal 1,390 Protein (gm) 70 Carbohydrates (gm) 133 Fat (gm) 70 Fluid (mL) 933 Fiber (gm) 19 % RDI: 100% Kcal; 74% AA. Add Supplement/Snack (indicate name/kcal d/c /protein ) Goal #1 Provide at least 75% of energy /protein needs through Enteral Feeding during LOS. Follow-Up By: 03/08/21 Additional Comments Continue monitoring TF tolerance and BM. <RIN JAMISON - Last Filed: 03/09/21 12:10> Assessment and Plan Assessment and plan: I saw and evaluated the patient. Discussed with the nurse practitioner and agree with their findings and plan as documented in this note. Hospitalist Physical - Constitutional Vitals: Temp Pulse Resp BP Pulse Ox 99.4 F 99 H 27 H 97/48 91 03/09/21 08:00 03/09/21 08:25 03/09/21 06:30 03/09/21 08:25 03/09/21 08:25 Results - Labs CBC & Chem 7: 03/09/21 04:00 03/09/21 04:00 Labs: Laboratory Last Values WBC 11.4 K/mm3 (4.5-11.0) H 03/09/21 04:00 RBC 3.21 M/mm3 (3.65-5.03) L 03/09/21 04:00 Hgb 9.4 gm/dl (10.1-14.3) L 03/09/21 04:00 Hct 29.6 % (30.3-42.9) L 03/09/21 04:00 MCV 92 fl (79-97) 03/09/21 04:00 MCH 29 pg (28-32) 03/09/21 04:00 MCHC 32 % (30-34) 03/09/21 04:00 RDW 15.2 % (13.2-15.2) 03/09/21 04:00 Plt Count 234 K/mm3 (140-440) 03/09/21 04:00 Add Manual Diff Complete 03/05/21 10:10 Total Counted 100 03/05/21 10:10 Seg Neuts % (Manual) 77.0 % (40.0-70.0) H 03/05/21 10:10 Band Neutrophils % 3.0 % 03/05/21 10:10 Lymphocytes % (Manual) 12.0 % (13.4-35.0) L 03/05/21 10:10 Reactive Lymphs % (Man) 2.0 % 03/05/21 10:10 Monocytes % (Manual) 5.0 % (0.0-7.3) 03/05/21 10:10 Eosinophils % (Manual) 1.0 % (0.0-4.3) 03/05/21 10:10 Basophils % (Manual) 0 % (0.0-1.8) 03/05/21 10:10 Metamyelocytes % 0 % 03/05/21 10:10 Myelocytes % 0 % 03/05/21 10:10 Promyelocytes % 0 % 03/05/21 10:10 Blast Cells % 0 % 03/05/21 10:10 Nucleated RBC % Not Reportable 03/05/21 10:10 Seg Neutrophils # Man 13.7 K/mm3 (1.8-7.7) H 03/05/21 10:10 Band Neutrophils # 0.5 K/mm3 03/05/21 10:10 Lymphocytes # (Manual) 2.1 K/mm3 (1.2-5.4) 03/05/21 10:10 Abs React Lymphs (Man) 0.4 K/mm3 03/05/21 10:10 Monocytes # (Manual) 0.9 K/mm3 (0.0-0.8) H 03/05/21 10:10 Eosinophils # (Manual) 0.2 K/mm3 (0.0-0.4) 03/05/21 10:10 Basophils # (Manual) 0.0 K/mm3 (0.0-0.1) 03/05/21 10:10 Metamyelocytes # 0.0 K/mm3 03/05/21 10:10 Myelocytes # 0.0 K/mm3 03/05/21 10:10 Promyelocytes # 0.0 K/mm3 03/05/21 10:10 Blast Cells # 0.0 K/mm3 03/05/21 10:10 WBC Morphology Not Reportable 03/05/21 10:10 Hypersegmented Neuts Not Reportable 03/05/21 10:10 Hyposegmented Neuts Not Reportable 03/05/21 10:10 Hypogranular Neuts Not Reportable 03/05/21 10:10 Smudge Cells Not Reportable 03/05/21 10:10 Toxic Granulation Not Reportable 03/05/21 10:10 Toxic Vacuolation Not Reportable 03/05/21 10:10 Dohle Bodies Not Reportable 03/05/21 10:10 Pelger-Huet Anomaly Not Reportable 03/05/21 10:10 Cindy Rods Not Reportable 03/05/21 10:10 Platelet Estimate Consistent w auto 03/05/21 10:10 Clumped Platelets Not Reportable 03/05/21 10:10 Plt Clumps, EDTA Not Reportable 03/05/21 10:10 Large Platelets 1+ 03/05/21 10:10 Giant Platelets Not Reportable 03/05/21 10:10 Platelet Satelliting Not Reportable 03/05/21 10:10 Plt Morphology Comment Not Reportable 03/05/21 10:10 RBC Morphology Not Reportable 03/05/21 10:10 Dimorphic RBCs Not Reportable 03/05/21 10:10 Polychromasia Few 03/05/21 10:10 Hypochromasia Not Reportable 03/05/21 10:10 Poikilocytosis Not Reportable 03/05/21 10:10 Anisocytosis 1+ 03/05/21 10:10 Microcytosis Not Reportable 03/05/21 10:10 Macrocytosis Not Reportable 03/05/21 10:10 Spherocytes Not Reportable 03/05/21 10:10 Pappenheimer Bodies Not Reportable 03/05/21 10:10 Sickle Cells Not Reportable 03/05/21 10:10 Target Cells Not Reportable 03/05/21 10:10 Tear Drop Cells Not Reportable 03/05/21 10:10 Ovalocytes Not Reportable 03/05/21 10:10 Helmet Cells Not Reportable 03/05/21 10:10 [place] Bodies Not Reportable 03/05/21 10:10 [place] Rings Not Reportable 03/05/21 10:10 Mclean Cells Not Reportable 03/05/21 10:10 Bite Cells Not Reportable 03/05/21 10:10 Crenated Cell Not Reportable 03/05/21 10:10 Elliptocytes Not Reportable 03/05/21 10:10 Acanthocytes (Spur) Not Reportable 03/05/21 10:10 Rouleaux Not Reportable 03/05/21 10:10 Hemoglobin C Crystals Not Reportable 03/05/21 10:10 Schistocytes Not Reportable 03/05/21 10:10 Malaria parasites Not Reportable 03/05/21 10:10 Pedro Pablo Bodies Not Reportable 03/05/21 10:10 Hem Pathologist Commnt No 03/05/21 10:10 PT 13.9 Sec. (12.2-14.9) 02/17/21 14:34 INR 0.96 (0.87-1.13) 02/17/21 14:34 APTT 26.4 Sec. (24.2-36.6) 02/17/21 14:34 D-Dimer 3469.99 ng/mlDDU (0-234) H 03/01/21 05:12 ABG pH 7.260 pH Units (7.350-7.450) L 03/09/21 04:11 ABG pCO2 69.5 mm Hg 03/09/21 04:11 ABG pO2 85.9 mm Hg (80.0-90.0) 03/09/21 04:11 ABG HCO3 30.5 mmol/L (20.0-26.0) H 03/09/21 04:11 ABG O2 Saturation 95.9 % (95.0-99.0) 03/09/21 04:11 ABG O2 Content 12.6 (0.0-44) 03/09/21 04:11 ABG Base Excess 2.4 mmol/L (-2.0-3.0) 03/09/21 04:11 ABG Hemoglobin 9.4 gm/dl (12.0-16.0) L 03/09/21 04:11 ABG Carboxyhemoglobin 1.3 % (0.0-5.0) 03/09/21 04:11 ABG Methemoglobin 0.7 % (0.0-1.5) 03/09/21 04:11 Oxyhemoglobin 93.9 % (95.0-99.0) L 03/09/21 04:11 FiO2 85 % 03/09/21 04:11 Sodium 144 mmol/L (137-145) 03/09/21 04:00 Potassium 4.7 mmol/L (3.6-5.0) 03/09/21 04:00 Chloride 105.8 mmol/L (98-107) 03/09/21 04:00 Carbon Dioxide 29 mmol/L (22-30) 03/09/21 04:00 Anion Gap 14 mmol/L 03/09/21 04:00 BUN 74 mg/dL (7-17) H 03/09/21 04:00 Creatinine 1.3 mg/dL (0.6-1.2) H 03/09/21 04:00 Estimated GFR 50 ml/min 03/09/21 04:00 BUN/Creatinine Ratio 57 % 03/09/21 04:00 Glucose 117 mg/dL (65-100) H 03/09/21 04:00 POC Glucose 122 mg/dL (70-105) H 03/09/21 11:25 Lactic Acid 1.60 mmol/L (0.7-2.0) 02/17/21 18:39 Calcium 8.5 mg/dL (8.4-10.2) 03/09/21 04:00 Phosphorus 10.70 mg/dL (2.5-4.5) H 03/06/21 06:13 Magnesium 2.40 mg/dL (1.7-2.3) H 03/06/21 06:13 Ferritin 1526.0 ng/mL (10.0-200.0) H 03/01/21 05:12 Total Bilirubin 0.30 mg/dL (0.1-1.2) 03/05/21 10:10 Direct Bilirubin < 0.2 mg/dL (0-0.2) 02/17/21 14:34 Indirect Bilirubin 0.1 mg/dL 02/17/21 14:34 AST 38 units/L (5-40) 03/05/21 10:10 ALT 44 units/L (7-56) 03/05/21 10:10 Alkaline Phosphatase 78 units/L (35-129) 03/05/21 10:10 Lactate Dehydrogenase 385 units/L (91-180) H 03/01/21 05:12 C-Reactive Protein 11.20 mg/dL (0.00-1.30) H 03/01/21 05:12 NT-Pro-B Natriuret Pep 86.77 pg/mL (0-900) 02/20/21 16:34 Total Protein 7.7 g/dL (6.3-8.2) 03/05/21 10:10 Albumin 3.1 g/dL (3.9-5) L 03/05/21 10:10 Albumin/Globulin Ratio 0.7 % 03/05/21 10:10 Triglycerides 171 mg/dL (2-149) H 03/07/21 04:05 Procalcitonin 0.11 ng/mL (<0.15) 02/19/21 07:32 Urine Color Cassandra (Yellow) 02/18/21 Unknown Urine Turbidity Cloudy (Clear) 02/18/21 Unknown Urine pH 5.0 (5.0-7.0) 02/18/21 Unknown Ur Specific [place] 1.027 (1.003-1.030) 02/18/21 Unknown Urine Protein 100 mg/dl mg/dL (Negative) 02/18/21 Unknown Urine Glucose (UA) Neg mg/dL (Negative) 02/18/21 Unknown Urine Ketones Neg mg/dL (Negative) 02/18/21 Unknown Urine Blood Neg (Negative) 02/18/21 Unknown Urine Nitrite Neg (Negative) 02/18/21 Unknown Urine Bilirubin Neg (Negative) 02/18/21 Unknown Urine Urobilinogen < 2.0 mg/dL (<2.0) 02/18/21 Unknown Ur Leukocyte Esterase Neg (Negative) 02/18/21 Unknown Urine WBC (Auto) 7.0 /HPF (0.0-6.0) H 02/18/21 Unknown Urine RBC (Auto) 4.0 /HPF (0.0-6.0) 02/18/21 Unknown U Epithel Cells (Auto) 3.0 /HPF (0-13.0) 02/18/21 Unknown Urine Mucus 2+ /HPF 02/18/21 Unknown Urine Creatinine 247.7 mg/dL (0.1-20.0) H 03/06/21 09:00 Urine Sodium 25 mmol/L 03/06/21 09:00 Coronavirus (PCR) Positive (Negative) A 02/18/21 Unknown Head/IV: Voiding Method Indwelling Catheter Active Medications - Current Medications Current Medications: Generic Name Dose Route Start Last Admin Trade Name Freq PRN Reason Stop Dose Admin Acetaminophen 650 mg 02/17/21 23:58 03/02/21 09:45 Acetaminophen 325 Mg Tab PO 650 mg Q4H PRN Administration Pain MILD(1-3)/Fever >100.5/BROWN Dextrose 50 ml 02/27/21 11:30 Dextrose 50% In Water (25gm) 50 Ml Syringe IV Q30MIN PRN Hypoglycemia Protocol Enoxaparin Sodium 90 mg 03/08/21 22:00 03/08/21 22:16 Enoxaparin 100 Mg/1 Ml Inj 1 mg/kg (90 mg) 90 mg SUB-Q Administration Q12HR [facility] Protocol Famotidine 20 mg 03/08/21 22:00 03/08/21 22:17 Famotidine 20 Mg/2 Ml Inj IV 20 mg BID DEISY Administration Fentanyl 50 mcg 03/05/21 09:38 Fentanyl 100 Mcg/2 Ml Inj IV Q10MIN PRN ANALGESIA Gabapentin 400 mg 02/19/21 04:00 03/08/21 22:16 Gabapentin 400 Mg Cap PO 400 mg BID DEISY Administration Hydrophilic Ointment 1 applic 03/05/21 09:39 Lip Therapy Vaseline TP Q2HR PRN Dry Lips Propofol 1,000 mg in 100 mls @ 2.585 mls/hr 03/05/21 10:00 03/08/21 18:22 Diprivan 10 Mg/Ml IV 20 mcg/kg/min TITR DEISY 10.342 mls/hr Administration Protocol 5 MCG/KG/MIN Fentanyl Citrate 2,000 mcg in 100 mls @ 4.309 mls/hr 03/05/21 10:00 03/09/21 02:55 Fentanyl Drip Premix IV 4 mcg/kg/hr TITR DEISY 17.237 mls/hr Administration Protocol 1 MCG/KG/HR Midazolam HCl 100 mg/ Sodium 100 mls @ 1 mls/hr 03/05/21 11:00 03/09/21 02:55 Chloride IV 3 mg/hr TITR DEISY 3 mls/hr Administration Protocol 1 MG/HR NORepinephrine/NS 8 MG-250 ML 8 mg in 250 mls @ 3.75 mls/hr 03/05/21 10:15 03/08/21 12:02 Norepinephrine/Ns 8 Mg-250 Ml (Double Conc) IV 0 mcg/min TITRATE DEISY 0 mls/hr Titration Protocol 2 MCG/MIN Dexmedetomidine HCl 400 mcg/ 104 mls @ 4.482 mls/hr 03/05/21 14:00 Sodium Chloride IV TITRATE [facility] Protocol 0.2 MCG/KG/HR Vasopressin 20 unit/ Sodium 101 mls @ 9.09 mls/hr 03/06/21 06:00 03/08/21 10:30 Chloride IV 0 units/min TITR DEISY 0 mls/hr Titration Protocol 0.03 UNITS/MIN Insulin Glargine 10 units 03/02/21 22:00 03/08/21 22:18 Insulin Glargine 100 Units/Ml SUB-Q 10 units QHS [facility] Administration Insulin Human Lispro 0 unit 03/05/21 18:00 03/09/21 05:40 Insulin Lispro 100 Unit/Ml SUB-Q Not Given Q6HR [facility] Protocol Midazolam HCl 2 mg 03/05/21 10:11 03/05/21 10:53 Midazolam 2 Mg/2 Ml Inj IV 2 mg Q10MIN PRN Administration Sedation Multi-Ingred Cream/Lotion/Oil/Oint 1 applic 03/05/21 09:39 Mineral Oil/Petrolatum, White Ophth Oint 3.5 Gm OU Q4HR PRN Dry Eye(s) Ondansetron HCl 4 mg 02/17/21 23:58 Ondansetron 4 Mg/2 Ml Inj IV Q8H PRN Nausea And Vomiting Senna/Docusate Sodium 1 tab 03/05/21 10:00 03/08/21 22:17 Sennosides/Docusate Sodium 8.6/50 Mg Tab FEEDTUBE 1 tab BID DEISY Administration Sertraline HCl 50 mg 02/19/21 10:00 03/08/21 10:34 Sertraline 50 Mg Tab PO 50 mg QDAY DEISY Administration Sodium Chloride 10 ml 02/18/21 10:00 03/08/21 22:17 Sodium Chloride 0.9% 10 Ml Flush Syringe IV 10 ml BID DEISY Administration Sodium Chloride 10 ml 02/17/21 23:58 Sodium Chloride 0.9% 10 Ml Flush Syringe IV PRN PRN LINE FLUSH Nutrition/Malnutrition Assess - Dietary Evaluation Nutrition/Malnutrition Findings: Nutrition Notes Start: 02/25/21 16:10 Freq: Status: Active Protocol: Document 03/08/21 15:59 [facility] (Rec: 03/08/21 16:12 [facility] [id number]) Nutrition Notes Initial or Follow up Reassessment Current Diagnosis Diabetes,Hypertension, Respiratory Failure Other Pertinent Diagnosis COVID-19 pneu, SIRS Current Diet TF-Glucerna 1.2 at 48 ml/hr Labs/Tests BUN 69 Pertinent Medications Propofol at 10.342ml/hr ( provides 273 kcal) Height 5 ft 6 in Weight 86.183 kg [place] Body Weight (kg) 59.09 BMI 30.7 Weight Status Obese Subjective/Other Information Spoke with RN via phone (16:02 ). Pt was requiring high pressor support, so TF was not started. Pt not requiring pressor support at this time, so TF started and currently being tolerated at 38ml/hr. TF rate rate to be advanced to goal tonight. No BM reported , but pt receiving senokot. Pt remains on vent support. Burn Absent Trauma Absent Minimum of two criteria No #2 Nutrition Diagnosis Inadequate oral intake Diagnosis Progress(for reassessment Continues documentation) #1 Nutrition Diagnosis Inadequate protein intake As Evidenced by Signs and Symptoms current TF rate provides <75% pro needs Diagnosis Progress(for reassessment Continues documentation) Is patient on ventilator? Yes Is Patient Ambulatory and/or Out of Bed No REE-([place]-St. Jeor-confined to bed) 1737.120 Calculation Used for Recommendations 70-80% energy needs Additional Notes Energy: 4288-9118 kcal/day Protein: 1.3 g/kg adjBW: 94 g/ day Fluids: 1 ml/kcal, or as per MD. Nutrition Intervention Nutrition Support: Increase Glucerna 1.2 rate to 50ml/hr. Provide 80ml water flush q4h. Kcal 1,440 Protein (gm) 72 Carbohydrates (gm) 137 Fat (gm) 72 Fluid (mL) 966 Fiber (gm) 19 Goal #1 TF tolerance Goal #2 TF to meet at least 75% energy and pro needs Follow-Up By: 03/11/21 Additional Comments F/U: TF goal rate/tolerance, vent status, BM
--- NOTE | 2021-03-07 12:47 | Progress Note ---
Assessment and Plan 61 y/o female with acute respiratory failure secondary to COVID 19 pneumonia. 03/07/21: Continue supportive measures. Monitor urine output and function. Labs are better today and she did put out more urine with fluid bolus so will give again today. Overall prognosis remains extremely guarded. 03/06/21: Overall clinical state is worsening. Now with difficulty ventilation and with improved ventilation comes a compromise in oxygenation. Newest concern is renal function which is worsening. If patient requires dialysis then mortal ity increases and prognosis worsens. If requires HD, prognosis is very very guarded to poor. 03/05/21: Added versed drip to fent and Diprovan to keep RASS at -4. Will also order precedex in the event it is needed. Repeat ABG somewhat improved but increased RR. Must watch Peak Pressures. attempting to do low lung volume protective ventilator strategy. Patient has actually been off steroids for some time. Will not restart as of yet. Unable to prone. Guarded prognosis. This discussion was had over the weekend with the daughter when I thought we would have to intubate then. Explained that vent is not therapy but only something to give her lungs time to rest, if possible to see if they can recover. Prognosis is very guarded to poor. 03/04/21: Continue supportive care between HFNC and bipap therapy. Steroids. Positive reinforcement. 03/03/21: Long discussion at bedside with patient. Today she stated that she did not want to be intubated. I attempted to call her daughter while I was in the room with the patient but no answer. She will remain full code as she has said this in the past and then revoked after speaking with the daughter ( which is why i called her again this morning). Continue bipap and monitor. Guarded prognosis. 03/02/21: Prone if able. Continue steroids. Negative fluid balance if possible. Prognosis remains very guarded 02/28/21: Prone. Steroids. Net negative fluid balance if possible. Guarded prognosis. 02/27/21: Full code status. Prone as much as possible during the day and sleep prone at night. Patient may require intubation ultimately. Guarded prognosis. 02/26/21: Prone if possible. Continue anticoagulation for DVT. Steroids. Net negative fluid balance. 02/25/21: Long discussion at bedside with patient, whom per her, she has discussed this with her daughter. She does no want an endotracheal tube. She does not want chest compression and she does not want shocks. I did not ask about vasopressors. The patient is awake and alert and oriented. This needs to be addressed by primary team as well an if confirmed, I have no problem with cosigning AND order. Continue supportive measures for now. Guarded to poor pr ognosis. 02/21/21: BNP normal. Still would attempt to achieve net negative fluid balance daily. Continue Remdesivir and steroids. Prone if patient willing. Follow up CTA results. Discussed with IMS, may change anticoagulation but awaiting official ready on CTA. Guareded prognosis. 02/20/21: Follow up CTA results. Will send BNP. Continue steroids and Remdesivir. Guarded prognosis. Prone if able, very pertinent to do this. 1. self proning as tolerated during the day and prone at night while sleeping 2. Steroids and Remdesivir 3. Daily net negative volume state 4. Consider checking BNP and echo to make sure no edema on this film 5. Agree with empiric anticoagulation given elevated D-Dimer Guarded prognosis. Will continue to follow. Subjective Date of service: 03/07/21 Principal diagnosis: COVID pneumonia Interval history: No new events. Remains sedated on vent. 100% but PaO2 was slightly better this am. Objective Vital Signs - 12hr 03/07/21 03/07/21 03/07/21 01:00 01:15 01:30 Temperature Pulse Rate 79 79 79 Pulse Rate [ From Monitor] Respiratory 30 H 30 H 30 H Rate Blood Pressure 99/62 99/63 98/61 O2 Sat by Pulse 97 97 96 Oximetry 03/07/21 03/07/21 03/07/21 01:45 02:00 02:15 Temperature Pulse Rate 79 80 80 Pulse Rate [ From Monitor] Respiratory 30 H 30 H 30 H Rate Blood Pressure 96/63 97/62 99/64 O2 Sat by Pulse 96 96 97 Oximetry 03/07/21 03/07/21 03/07/21 02:30 02:45 03:00 Temperature Pulse Rate 83 79 78 Pulse Rate [ From Monitor] Respiratory 30 H 30 H 30 H Rate Blood Pressure 102/66 97/62 96/62 O2 Sat by Pulse 97 97 97 Oximetry 03/07/21 03/07/21 03/07/21 03:15 03:30 03:39 Temperature 99.1 F Pulse Rate 78 78 Pulse Rate [ From Monitor] Respiratory 30 H 30 H Rate Blood Pressure 96/62 96/62 O2 Sat by Pulse 96 96 Oximetry 03/07/21 03/07/21 03/07/21 03:45 04:00 04:15 Temperature 99.0 F Pulse Rate 78 79 80 Pulse Rate [ 84 From Monitor] Respiratory 30 H 30 H 30 H Rate Blood Pressure 95/61 97/63 104/65 O2 Sat by Pulse 97 97 98 Oximetry 03/07/21 03/07/21 03/07/21 04:30 04:45 04:50 Temperature Pulse Rate 79 76 87 Pulse Rate [ From Monitor] Respiratory 30 H 30 H Rate Blood Pressure 98/62 99/62 99/62 O2 Sat by Pulse 98 98 98 Oximetry 03/07/21 03/07/21 03/07/21 05:00 05:01 05:15 Temperature Pulse Rate 85 78 76 Pulse Rate [ From Monitor] Respiratory 30 H 30 H Rate Blood Pressure 142/58 142/58 O2 Sat by Pulse 98 98 Oximetry 03/07/21 03/07/21 03/07/21 05:30 05:45 06:00 Temperature Pulse Rate 76 77 76 Pulse Rate [ From Monitor] Respiratory 30 H 30 H 30 H Rate Blood Pressure 146/62 99/64 98/63 O2 Sat by Pulse 98 97 97 Oximetry 03/07/21 03/07/21 03/07/21 06:15 06:30 06:45 Temperature Pulse Rate 77 78 77 Pulse Rate [ From Monitor] Respiratory 30 H 30 H 30 H Rate Blood Pressure 99/63 99/63 102/63 O2 Sat by Pulse 97 97 97 Oximetry 03/07/21 03/07/21 03/07/21 07:00 07:15 07:17 Temperature Pulse Rate 76 77 76 Pulse Rate [ From Monitor] Respiratory 30 H 30 H Rate Blood Pressure 100/62 97/62 97/62 O2 Sat by Pulse 97 97 97 Oximetry 03/07/21 03/07/21 03/07/21 07:30 07:45 08:00 Temperature Pulse Rate 75 75 77 Pulse Rate [ 76 From Monitor] Respiratory 30 H 30 H 30 H Rate Blood Pressure 97/64 98/66 97/65 O2 Sat by Pulse 97 97 97 Oximetry 03/07/21 03/07/21 03/07/21 08:10 08:15 08:30 Temperature 98.0 F Pulse Rate 76 76 Pulse Rate [ From Monitor] Respiratory 30 H 30 H Rate Blood Pressure 98/66 107/65 O2 Sat by Pulse 97 98 Oximetry 03/07/21 03/07/21 03/07/21 08:45 09:00 09:15 Temperature Pulse Rate 75 76 73 Pulse Rate [ From Monitor] Respiratory 30 H 30 H 30 H Rate Blood Pressure 99/65 101/65 108/66 O2 Sat by Pulse 97 97 98 Oximetry 03/07/21 03/07/21 03/07/21 09:30 09:45 10:00 Temperature Pulse Rate 72 73 72 Pulse Rate [ From Monitor] Respiratory 30 H 30 H 30 H Rate Blood Pressure 96/63 98/65 96/64 O2 Sat by Pulse 98 98 98 Oximetry 03/07/21 03/07/21 03/07/21 10:15 10:30 10:45 Temperature Pulse Rate 72 71 72 Pulse Rate [ From Monitor] Respiratory 30 H 30 H 30 H Rate Blood Pressure 102/63 99/63 98/65 O2 Sat by Pulse 98 98 98 Oximetry 03/07/21 03/07/21 03/07/21 11:00 11:15 11:30 Temperature Pulse Rate 72 71 72 Pulse Rate [ From Monitor] Respiratory 30 H 30 H 30 H Rate Blood Pressure 103/64 93/60 94/63 O2 Sat by Pulse 98 98 97 Oximetry 03/07/21 03/07/21 12:00 12:38 Temperature 98 F Pulse Rate 70 Pulse Rate [ From Monitor] Respiratory Rate Blood Pressure 96/63 O2 Sat by Pulse 98 Oximetry Constitutional: alert, other (on hiflo) ENT: oropharynx moist Neck: supple Ascultation: Bilateral: diminished breath sounds Cardiovascular: regular rate and rhythm Gastrointestinal: normoactive bowel sounds, soft, non-tender, non-distended Integumentary: normal Extremities: no cyanosis CBC and BMP: 03/07/21 04:05 03/07/21 04:05 ABG, PT/INR, D-dimer: ABG ABG pH 7.280 pH Units (7.350-7.450) L 03/07/21 04:49 ABG pCO2 63.8 mm Hg 03/07/21 04:49 ABG pO2 88.8 mm Hg (80.0-90.0) 03/07/21 04:49 ABG O2 Saturation 96.2 % (95.0-99.0) 03/07/21 04:49 PT/INR, D-dimer PT 13.9 Sec. (12.2-14.9) 02/17/21 14:34 INR 0.96 (0.87-1.13) 02/17/21 14:34 D-Dimer 3469.99 ng/mlDDU (0-234) H 03/01/21 05:12 Abnormal lab findings: Abnormal Labs 02/17/21 02/17/21 02/17/21 14:34 14:34 14:34 WBC 11.7 H RBC Hgb Hct 44.9 H RDW 15.6 H Plt Count Seg Neuts % (Manual) Lymphocytes % (Manual) 9.0 L Monocytes % (Manual) 12.0 H Seg Neutrophils # Man 8.2 H Lymphocytes # (Manual) 1.1 L Monocytes # (Manual) 1.4 H D-Dimer ABG pH ABG pO2 ABG HCO3 ABG O2 Saturation ABG Base Excess ABG Hemoglobin Oxyhemoglobin Sodium Potassium 3.5 L Chloride BUN 27 H Creatinine Glucose 150 H POC Glucose Lactic Acid 2.90 H* Calcium Phosphorus Magnesium Ferritin AST Lactate Dehydrogenase C-Reactive Protein NT-Pro-B Natriuret Pep Albumin Triglycerides Urine WBC (Auto) Urine Creatinine Coronavirus (PCR) 02/17/21 02/18/21 02/18/21 14:34 07:48 07:48 WBC 12.0 H RBC Hgb Hct RDW 15.4 H Plt Count Seg Neuts % (Manual) 76.0 H Lymphocytes % (Manual) Monocytes % (Manual) Seg Neutrophils # Man 9.1 H Lymphocytes # (Manual) Monocytes # (Manual) D-Dimer ABG pH ABG pO2 ABG HCO3 ABG O2 Saturation ABG Base Excess ABG Hemoglobin Oxyhemoglobin Sodium Potassium Chloride BUN 36 H Creatinine Glucose 133 H POC Glucose Lactic Acid Calcium Phosphorus Magnesium Ferritin AST 57 H Lactate Dehydrogenase C-Reactive Protein NT-Pro-B Natriuret Pep 1619 H Albumin 3.3 L Triglycerides Urine WBC (Auto) Urine Creatinine Coronavirus (PCR) 02/18/21 02/18/21 02/19/21 Unknown Unknown 07:32 WBC RBC Hgb Hct RDW Plt Count Seg Neuts % (Manual) Lymphocytes % (Manual) Monocytes % (Manual) Seg Neutrophils # Man Lymphocytes # (Manual) Monocytes # (Manual) D-Dimer ABG pH ABG pO2 ABG HCO3 ABG O2 Saturation ABG Base Excess ABG Hemoglobin Oxyhemoglobin Sodium 148 H D Potassium Chloride BUN 41 H Creatinine Glucose 123 H POC Glucose Lactic Acid Calcium Phosphorus Magnesium Ferritin AST 57 H Lactate Dehydrogenase C-Reactive Protein NT-Pro-B Natriuret Pep Albumin 3.7 L Triglycerides Urine WBC (Auto) 7.0 H Urine Creatinine Coronavirus (PCR) Positive A 02/19/21 02/19/21 02/20/21 07:32 08:43 05:00 WBC RBC Hgb Hct RDW Plt Count Seg Neuts % (Manual) Lymphocytes % (Manual) Monocytes % (Manual) Seg Neutrophils # Man Lymphocytes # (Manual) Monocytes # (Manual) D-Dimer > 79892 H ABG pH ABG pO2 ABG HCO3 ABG O2 Saturation ABG Base Excess ABG Hemoglobin Oxyhemoglobin Sodium 147 H Potassium Chloride 107.6 H BUN 36 H Creatinine Glucose POC Glucose Lactic Acid Calcium Phosphorus Magnesium Ferritin AST Lactate Dehydrogenase C-Reactive Protein 10.90 H NT-Pro-B Natriuret Pep Albumin 3.3 L Triglycerides Urine WBC (Auto) Urine Creatinine Coronavirus (PCR) 02/20/21 02/21/21 02/21/21 18:46 04:44 04:44 WBC 16.7 H RBC Hgb Hct RDW Plt Count Seg Neuts % (Manual) Lymphocytes % (Manual) Monocytes % (Manual) Seg Neutrophils # Man Lymphocytes # (Manual) Monocytes # (Manual) D-Dimer ABG pH 7.453 H ABG pO2 55.0 L ABG HCO3 26.6 H ABG O2 Saturation 88.3 L ABG Base Excess ABG Hemoglobin Oxyhemoglobin 86.8 L Sodium Potassium Chloride BUN 26 H Creatinine Glucose 111 H POC Glucose Lactic Acid Calcium Phosphorus Magnesium Ferritin AST Lactate Dehydrogenase C-Reactive Protein NT-Pro-B Natriuret Pep Albumin 3.4 L Triglycerides Urine WBC (Auto) Urine Creatinine Coronavirus (PCR) 02/22/21 02/23/21 02/23/21 04:47 09:05 09:05 WBC 19.3 H RBC 5.29 H Hgb 15.2 H Hct 47.7 H D RDW Plt Count Seg Neuts % (Manual) 82.0 H Lymphocytes % (Manual) 6.0 L Monocytes % (Manual) Seg Neutrophils # Man 15.8 H Lymphocytes # (Manual) Monocytes # (Manual) 1.0 H D-Dimer ABG pH ABG pO2 ABG HCO3 ABG O2 Saturation ABG Base Excess ABG Hemoglobin Oxyhemoglobin Sodium Potassium Chloride BUN 25 H 27 H Creatinine Glucose 125 H POC Glucose Lactic Acid Calcium Phosphorus Magnesium Ferritin AST Lactate Dehydrogenase C-Reactive Protein NT-Pro-B Natriuret Pep Albumin 3.3 L Triglycerides Urine WBC (Auto) Urine Creatinine Coronavirus (PCR) 02/23/21 02/23/21 02/24/21 11:33 16:24 04:50 WBC 14.8 H RBC Hgb Hct RDW Plt Count Seg Neuts % (Manual) Lymphocytes % (Manual) Monocytes % (Manual) Seg Neutrophils # Man Lymphocytes # (Manual) Monocytes # (Manual) D-Dimer ABG pH ABG pO2 ABG HCO3 ABG O2 Saturation ABG Base Excess ABG Hemoglobin Oxyhemoglobin Sodium Potassium Chloride BUN Creatinine Glucose POC Glucose 117 H 163 H Lactic Acid Calcium Phosphorus Magnesium Ferritin AST Lactate Dehydrogenase C-Reactive Protein NT-Pro-B Natriuret Pep Albumin Triglycerides Urine WBC (Auto) Urine Creatinine Coronavirus (PCR) 02/24/21 02/25/21 02/27/21 04:50 21:12 04:57 WBC 17.0 H RBC Hgb Hct 43.4 H RDW Plt Count Seg Neuts % (Manual) 84.0 H Lymphocytes % (Manual) 4.0 L Monocytes % (Manual) Seg Neutrophils # Man 14.3 H Lymphocytes # (Manual) 0.7 L Monocytes # (Manual) 0.9 H D-Dimer ABG pH ABG pO2 ABG HCO3 ABG O2 Saturation ABG Base Excess ABG Hemoglobin Oxyhemoglobin Sodium Potassium Chloride BUN 23 H Creatinine Glucose POC Glucose 175 H Lactic Acid Calcium Phosphorus Magnesium Ferritin AST Lactate Dehydrogenase C-Reactive Protein NT-Pro-B Natriuret Pep Albumin Triglycerides Urine WBC (Auto) Urine Creatinine Coronavirus (PCR) 02/27/21 02/27/21 02/27/21 04:57 04:57 04:57 WBC RBC Hgb Hct RDW Plt Count Seg Neuts % (Manual) Lymphocytes % (Manual) Monocytes % (Manual) Seg Neutrophils # Man Lymphocytes # (Manual) Monocytes # (Manual) D-Dimer 5013.37 H ABG pH ABG pO2 ABG HCO3 ABG O2 Saturation ABG Base Excess ABG Hemoglobin Oxyhemoglobin Sodium Potassium Chloride BUN 23 H Creatinine 0.5 L Glucose 113 H POC Glucose Lactic Acid Calcium Phosphorus Magnesium Ferritin 1272.0 H AST Lactate Dehydrogenase 438 H C-Reactive Protein 5.80 H NT-Pro-B Natriuret Pep Albumin Triglycerides Urine WBC (Auto) Urine Creatinine Coronavirus (PCR) 02/27/21 02/27/21 02/28/21 17:53 21:12 07:40 WBC RBC Hgb Hct RDW Plt Count Seg Neuts % (Manual) Lymphocytes % (Manual) Monocytes % (Manual) Seg Neutrophils # Man Lymphocytes # (Manual) Monocytes # (Manual) D-Dimer ABG pH ABG pO2 ABG HCO3 ABG O2 Saturation ABG Base Excess ABG Hemoglobin Oxyhemoglobin Sodium Potassium Chloride BUN Creatinine Glucose POC Glucose 159 H 112 H 123 H Lactic Acid Calcium Phosphorus Magnesium Ferritin AST Lactate Dehydrogenase C-Reactive Protein NT-Pro-B Natriuret Pep Albumin Triglycerides Urine WBC (Auto) Urine Creatinine Coronavirus (PCR) 02/28/21 02/28/21 02/28/21 11:42 16:20 22:26 WBC RBC Hgb Hct RDW Plt Count Seg Neuts % (Manual) Lymphocytes % (Manual) Monocytes % (Manual) Seg Neutrophils # Man Lymphocytes # (Manual) Monocytes # (Manual) D-Dimer ABG pH ABG pO2 ABG HCO3 ABG O2 Saturation ABG Base Excess ABG Hemoglobin Oxyhemoglobin Sodium Potassium Chloride BUN Creatinine Glucose POC Glucose 112 H 138 H 129 H Lactic Acid Calcium Phosphorus Magnesium Ferritin AST Lactate Dehydrogenase C-Reactive Protein NT-Pro-B Natriuret Pep Albumin Triglycerides Urine WBC (Auto) Urine Creatinine Coronavirus (PCR) 03/01/21 03/01/21 03/01/21 05:12 05:12 05:12 WBC 15.0 H RBC 5.05 H Hgb Hct 44.7 H RDW Plt Count Seg Neuts % (Manual) 71.0 H Lymphocytes % (Manual) 11.0 L Monocytes % (Manual) 12.0 H Seg Neutrophils # Man 10.7 H Lymphocytes # (Manual) Monocytes # (Manual) 1.8 H D-Dimer 3469.99 H ABG pH ABG pO2 ABG HCO3 ABG O2 Saturation ABG Base Excess ABG Hemoglobin Oxyhemoglobin Sodium Potassium Chloride 97.3 L BUN Creatinine 0.5 L Glucose 115 H POC Glucose Lactic Acid Calcium Phosphorus Magnesium Ferritin AST Lactate Dehydrogenase 385 H C-Reactive Protein 11.20 H NT-Pro-B Natriuret Pep Albumin 2.8 L Triglycerides Urine WBC (Auto) Urine Creatinine Coronavirus (PCR) 03/01/21 03/01/21 03/01/21 05:12 07:30 11:42 WBC RBC Hgb Hct RDW Plt Count Seg Neuts % (Manual) Lymphocytes % (Manual) Monocytes % (Manual) Seg Neutrophils # Man Lymphocytes # (Manual) Monocytes # (Manual) D-Dimer ABG pH ABG pO2 ABG HCO3 ABG O2 Saturation ABG Base Excess ABG Hemoglobin Oxyhemoglobin Sodium Potassium Chloride BUN Creatinine Glucose POC Glucose 130 H 143 H Lactic Acid Calcium Phosphorus Magnesium Ferritin 1526.0 H AST Lactate Dehydrogenase C-Reactive Protein NT-Pro-B Natriuret Pep Albumin Triglycerides Urine WBC (Auto) Urine Creatinine Coronavirus (PCR) 03/01/21 03/01/21 03/01/21 15:28 17:53 21:16 WBC RBC Hgb Hct RDW Plt Count Seg Neuts % (Manual) Lymphocytes % (Manual) Monocytes % (Manual) Seg Neutrophils # Man Lymphocytes # (Manual) Monocytes # (Manual) D-Dimer ABG pH ABG pO2 ABG HCO3 ABG O2 Saturation ABG Base Excess ABG Hemoglobin Oxyhemoglobin Sodium Potassium Chloride BUN Creatinine Glucose POC Glucose 138 H 120 H 157 H Lactic Acid Calcium Phosphorus Magnesium Ferritin AST Lactate Dehydrogenase C-Reactive Protein NT-Pro-B Natriuret Pep Albumin Triglycerides Urine WBC (Auto) Urine Creatinine Coronavirus (PCR) 03/01/21 03/02/21 03/02/21 22:07 07:44 11:40 WBC RBC Hgb Hct RDW Plt Count Seg Neuts % (Manual) Lymphocytes % (Manual) Monocytes % (Manual) Seg Neutrophils # Man Lymphocytes # (Manual) Monocytes # (Manual) D-Dimer ABG pH ABG pO2 35.9 L* ABG HCO3 31.2 H ABG O2 Saturation 68.0 L ABG Base Excess 6.1 H ABG Hemoglobin Oxyhemoglobin 66.1 L Sodium Potassium Chloride BUN Creatinine Glucose POC Glucose 125 H 203 H Lactic Acid Calcium Phosphorus Magnesium Ferritin AST Lactate Dehydrogenase C-Reactive Protein NT-Pro-B Natriuret Pep Albumin Triglycerides Urine WBC (Auto) Urine Creatinine Coronavirus (PCR) 03/02/21 03/02/21 03/02/21 12:13 13:00 17:15 WBC RBC Hgb Hct RDW Plt Count Seg Neuts % (Manual) Lymphocytes % (Manual) Monocytes % (Manual) Seg Neutrophils # Man Lymphocytes # (Manual) Monocytes # (Manual) D-Dimer ABG pH ABG pO2 36.0 L* ABG HCO3 29.5 H ABG O2 Saturation 68.7 L ABG Base Excess 4.7 H ABG Hemoglobin Oxyhemoglobin 66.8 L Sodium Potassium Chloride BUN Creatinine Glucose POC Glucose 130 H 126 H Lactic Acid Calcium Phosphorus Magnesium Ferritin AST Lactate Dehydrogenase C-Reactive Protein NT-Pro-B Natriuret Pep Albumin Triglycerides Urine WBC (Auto) Urine Creatinine Coronavirus (PCR) 03/02/21 03/03/21 03/03/21 21:45 08:02 10:05 WBC 19.2 H RBC Hgb Hct 44.9 H RDW Plt Count Seg Neuts % (Manual) 85.0 H Lymphocytes % (Manual) 7.0 L Monocytes % (Manual) Seg Neutrophils # Man 16.3 H Lymphocytes # (Manual) Monocytes # (Manual) 1.2 H D-Dimer ABG pH ABG pO2 ABG HCO3 ABG O2 Saturation ABG Base Excess ABG Hemoglobin Oxyhemoglobin Sodium Potassium Chloride BUN Creatinine Glucose POC Glucose 113 H 128 H Lactic Acid Calcium Phosphorus Magnesium Ferritin AST Lactate Dehydrogenase C-Reactive Protein NT-Pro-B Natriuret Pep Albumin Triglycerides Urine WBC (Auto) Urine Creatinine Coronavirus (PCR) 03/03/21 03/03/21 03/03/21 10:05 12:45 16:31 WBC RBC Hgb Hct RDW Plt Count Seg Neuts % (Manual) Lymphocytes % (Manual) Monocytes % (Manual) Seg Neutrophils # Man Lymphocytes # (Manual) Monocytes # (Manual) D-Dimer ABG pH ABG pO2 47.7 L ABG HCO3 31.5 H ABG O2 Saturation 82.5 L ABG Base Excess 5.6 H ABG Hemoglobin Oxyhemoglobin 80.4 L Sodium Potassium Chloride 97.8 L BUN 23 H Creatinine Glucose 141 H POC Glucose 126 H Lactic Acid Calcium Phosphorus Magnesium Ferritin AST Lactate Dehydrogenase C-Reactive Protein NT-Pro-B Natriuret Pep Albumin 3.2 L Triglycerides Urine WBC (Auto) Urine Creatinine Coronavirus (PCR) 03/03/21 03/04/21 03/04/21 20:52 07:24 11:04 WBC RBC Hgb Hct RDW Plt Count Seg Neuts % (Manual) Lymphocytes % (Manual) Monocytes % (Manual) Seg Neutrophils # Man Lymphocytes # (Manual) Monocytes # (Manual) D-Dimer ABG pH ABG pO2 ABG HCO3 ABG O2 Saturation ABG Base Excess ABG Hemoglobin Oxyhemoglobin Sodium Potassium Chloride BUN Creatinine Glucose POC Glucose 152 H 126 H 142 H Lactic Acid Calcium Phosphorus Magnesium Ferritin AST Lactate Dehydrogenase C-Reactive Protein NT-Pro-B Natriuret Pep Albumin Triglycerides Urine WBC (Auto) Urine Creatinine Coronavirus (PCR) 03/04/21 03/04/21 03/04/21 11:05 15:33 21:12 WBC RBC Hgb Hct RDW Plt Count Seg Neuts % (Manual) Lymphocytes % (Manual) Monocytes % (Manual) Seg Neutrophils # Man Lymphocytes # (Manual) Monocytes # (Manual) D-Dimer ABG pH ABG pO2 ABG HCO3 ABG O2 Saturation ABG Base Excess ABG Hemoglobin Oxyhemoglobin Sodium Potassium Chloride BUN 34 H Creatinine Glucose 143 H POC Glucose 114 H 180 H Lactic Acid Calcium Phosphorus Magnesium Ferritin AST Lactate Dehydrogenase C-Reactive Protein NT-Pro-B Natriuret Pep Albumin Triglycerides Urine WBC (Auto) Urine Creatinine Coronavirus (PCR) 03/04/21 03/05/21 03/05/21 21:30 07:51 10:10 WBC 17.8 H RBC Hgb 14.5 H Hct 45.8 H RDW 15.3 H Plt Count 446 H Seg Neuts % (Manual) 77.0 H Lymphocytes % (Manual) 12.0 L Monocytes % (Manual) Seg Neutrophils # Man 13.7 H Lymphocytes # (Manual) Monocytes # (Manual) 0.9 H D-Dimer ABG pH 7.473 H ABG pO2 34.1 L* ABG HCO3 29.7 H ABG O2 Saturation 66.4 L ABG Base Excess 5.6 H ABG Hemoglobin Oxyhemoglobin 64.9 L Sodium Potassium Chloride BUN Creatinine Glucose POC Glucose 144 H Lactic Acid Calcium Phosphorus Magnesium Ferritin AST Lactate Dehydrogenase C-Reactive Protein NT-Pro-B Natriuret Pep Albumin Triglycerides Urine WBC (Auto) Urine Creatinine Coronavirus (PCR) 03/05/21 03/05/21 03/05/21 10:10 11:41 12:23 WBC RBC Hgb Hct RDW Plt Count Seg Neuts % (Manual) Lymphocytes % (Manual) Monocytes % (Manual) Seg Neutrophils # Man Lymphocytes # (Manual) Monocytes # (Manual) D-Dimer ABG pH 7.226 L ABG pO2 50.5 L ABG HCO3 32.8 H ABG O2 Saturation 73.6 L ABG Base Excess ABG Hemoglobin 18.2 H Oxyhemoglobin 71.8 L Sodium Potassium 3.5 L Chloride BUN 51 H Creatinine Glucose 217 H POC Glucose 124 H Lactic Acid Calcium Phosphorus Magnesium Ferritin AST Lactate Dehydrogenase C-Reactive Protein NT-Pro-B Natriuret Pep Albumin 3.1 L Triglycerides Urine WBC (Auto) Urine Creatinine Coronavirus (PCR) 03/05/21 03/05/21 03/06/21 16:40 22:39 00:37 WBC RBC Hgb Hct RDW Plt Count Seg Neuts % (Manual) Lymphocytes % (Manual) Monocytes % (Manual) Seg Neutrophils # Man Lymphocytes # (Manual) Monocytes # (Manual) D-Dimer ABG pH ABG pO2 ABG HCO3 ABG O2 Saturation ABG Base Excess ABG Hemoglobin Oxyhemoglobin Sodium Potassium Chloride BUN Creatinine Glucose POC Glucose 138 H 139 H 126 H Lactic Acid Calcium Phosphorus Magnesium Ferritin AST Lactate Dehydrogenase C-Reactive Protein NT-Pro-B Natriuret Pep Albumin Triglycerides Urine WBC (Auto) Urine Creatinine Coronavirus (PCR) 03/06/21 03/06/21 03/06/21 04:25 06:13 06:13 WBC 18.4 H RBC Hgb Hct RDW 15.3 H Plt Count Seg Neuts % (Manual) Lymphocytes % (Manual) Monocytes % (Manual) Seg Neutrophils # Man Lymphocytes # (Manual) Monocytes # (Manual) D-Dimer ABG pH 7.028 L* ABG pO2 ABG HCO3 33.8 H ABG O2 Saturation 92.5 L ABG Base Excess ABG Hemoglobin Oxyhemoglobin 90.6 L Sodium 149 H Potassium Chloride 107.2 H BUN 62 H Creatinine 1.9 H D Glucose 140 H POC Glucose Lactic Acid Calcium 7.7 L D Phosphorus 10.70 H Magnesium 2.40 H Ferritin AST Lactate Dehydrogenase C-Reactive Protein NT-Pro-B Natriuret Pep Albumin Triglycerides Urine WBC (Auto) Urine Creatinine Coronavirus (PCR) 03/06/21 03/06/21 03/06/21 06:13 09:00 12:00 WBC RBC Hgb Hct RDW Plt Count Seg Neuts % (Manual) Lymphocytes % (Manual) Monocytes % (Manual) Seg Neutrophils # Man Lymphocytes # (Manual) Monocytes # (Manual) D-Dimer ABG pH ABG pO2 ABG HCO3 ABG O2 Saturation ABG Base Excess ABG Hemoglobin Oxyhemoglobin Sodium Potassium Chloride BUN Creatinine Glucose POC Glucose 155 H 122 H Lactic Acid Calcium Phosphorus Magnesium Ferritin AST Lactate Dehydrogenase C-Reactive Protein NT-Pro-B Natriuret Pep Albumin Triglycerides Urine WBC (Auto) Urine Creatinine 247.7 H Coronavirus (PCR) 03/06/21 03/06/21 03/06/21 17:16 22:23 Unknown WBC RBC Hgb Hct RDW Plt Count Seg Neuts % (Manual) Lymphocytes % (Manual) Monocytes % (Manual) Seg Neutrophils # Man Lymphocytes # (Manual) Monocytes # (Manual) D-Dimer ABG pH 7.253 L ABG pO2 66.5 L ABG HCO3 31.3 H ABG O2 Saturation 91.8 L ABG Base Excess ABG Hemoglobin 16.8 H Oxyhemoglobin 90.1 L Sodium Potassium Chloride BUN Creatinine Glucose POC Glucose 123 H 123 H Lactic Acid Calcium Phosphorus Magnesium Ferritin AST Lactate Dehydrogenase C-Reactive Protein NT-Pro-B Natriuret Pep Albumin Triglycerides Urine WBC (Auto) Urine Creatinine Coronavirus (PCR) 03/07/21 03/07/21 03/07/21 00:36 04:05 04:05 WBC 18.0 H RBC Hgb Hct RDW Plt Count Seg Neuts % (Manual) Lymphocytes % (Manual) Monocytes % (Manual) Seg Neutrophils # Man Lymphocytes # (Manual) Monocytes # (Manual) D-Dimer ABG pH ABG pO2 ABG HCO3 ABG O2 Saturation ABG Base Excess ABG Hemoglobin Oxyhemoglobin Sodium Potassium Chloride BUN 75 H Creatinine 1.5 H Glucose 113 H POC Glucose 121 H Lactic Acid Calcium Phosphorus Magnesium Ferritin AST Lactate Dehydrogenase C-Reactive Protein NT-Pro-B Natriuret Pep Albumin Triglycerides Urine WBC (Auto) Urine Creatinine Coronavirus (PCR) 03/07/21 03/07/21 03/07/21 04:05 04:49 05:38 WBC RBC Hgb Hct RDW Plt Count Seg Neuts % (Manual) Lymphocytes % (Manual) Monocytes % (Manual) Seg Neutrophils # Man Lymphocytes # (Manual) Monocytes # (Manual) D-Dimer ABG pH 7.280 L ABG pO2 ABG HCO3 29.3 H ABG O2 Saturation ABG Base Excess ABG Hemoglobin Oxyhemoglobin 94.4 L Sodium Potassium Chloride BUN Creatinine Glucose POC Glucose 112 H Lactic Acid Calcium Phosphorus Magnesium Ferritin AST Lactate Dehydrogenase C-Reactive Protein NT-Pro-B Natriuret Pep Albumin Triglycerides 171 H Urine WBC (Auto) Urine Creatinine Coronavirus (PCR) 03/07/21 12:13 WBC RBC Hgb Hct RDW Plt Count Seg Neuts % (Manual) Lymphocytes % (Manual) Monocytes % (Manual) Seg Neutrophils # Man Lymphocytes # (Manual) Monocytes # (Manual) D-Dimer ABG pH ABG pO2 ABG HCO3 ABG O2 Saturation ABG Base Excess ABG Hemoglobin Oxyhemoglobin Sodium Potassium Chloride BUN Creatinine Glucose POC Glucose 113 H Lactic Acid Calcium Phosphorus Magnesium Ferritin AST Lactate Dehydrogenase C-Reactive Protein NT-Pro-B Natriuret Pep Albumin Triglycerides Urine WBC (Auto) Urine Creatinine Coronavirus (PCR)
[2021-03-07] MEDS: MIDAZOLAM 100 MG in SODIUM CHLORIDE 0.9% 80 ML IV SCH (21:21)
[2021-03-07] MEDS: INSULIN GLARGINE 100 UNITS/ML SUB-Q SCH (21:35)
[2021-03-08] MEDS: INSULIN LISPRO 100 UNIT/ML SUB-Q SCH ×4 (00:37→17:23)
[2021-03-08] MEDS: FREE WATER PO SCH ×2 (02:16→06:13)
[2021-03-08] MEDS: fentaNYL DRIP Premix 2,000 MCG/100 ML BAG IV SCH ×3 (03:32→21:35)
[2021-03-08] MEDS: VASOPRESSIN 20 UNIT in SODIUM CHLORIDE 0.9% 100 ML IV SCH (03:32)
--- NOTE | 2021-03-08 05:10 | XRay Report ---
CHEST 1 VIEW 03/08/2021 3:54 AM INDICATION / CLINICAL INFORMATION: F/U COVID Pna. COMPARISON: 03/05/21 FINDINGS: SUPPORT DEVICES: Unchanged. HEART / MEDIASTINUM: Stable. LUNGS / PLEURA: Bilateral pulmonary opacities are unchanged. No pneumothorax. ADDITIONAL FINDINGS: No significant additional findings. IMPRESSION: 1. No significant change. Signer Name: Fran Briseno MD Signed: 03/08/2021 5:06 AM Workstation Name: [id number]
[2021-03-08 05:25] LABS: Hematocrit 33.4 % (30.3-42.9); Hemoglobin 10.5 gm/dl (10.1-14.3); Mean Corpuscular HGB Conc 32 % (30-34); Mean Corpuscular Volume 92 fl (79-97); Platelet Count 282 K/mm3 (140-440); Red Blood Count 3.65 M/mm3 (3.65-5.03); Red Cell Distribution Width 15.1 % (13.2-15.2)
[2021-03-08 05:45] LABS: BUN/Creatinine Ratio 69; Blood Urea Nitrogen 69 mg/dL (7-17); Calcium 9.2 mg/dL (8.4-10.2); Hemolysis Index 0
[2021-03-08] MEDS: NORepinephrine/NS 8 MG-250 ML 8 MG/250 ML INFUS..BTL IV SCH (08:36)
[2021-03-08 10:29] LABS: ABG Base Excess 2.6 mmol/L (-2.0-3.0); ABG HCO3 28.9 mmol/L (20.0-26.0); ABG Methemoglobin 0.6 % (0.0-1.5); ABG Oxygen Saturation 95.1 % (95.0-99.0); ABG PCO2 52.9 mm Hg; ABG PH 7.355 pH Units (7.350-7.450); ABG PO2 73.8 mm Hg (80.0-90.0)
[2021-03-08] MEDS: SENNOSIDES/DOCUSATE SODIUM 8.6/50 MG TAB FEEDTUBE SCH ×2 (10:33→22:17)
[2021-03-08] MEDS: FAMOTIDINE 20 MG/2 ML INJ IV SCH ×2 (10:34→22:17)
[2021-03-08] MEDS: GABAPENTIN 400 MG CAP PO SCH ×2 (10:34→22:16)
[2021-03-08] MEDS: SERTRALINE 50 MG TAB PO SCH (10:34)
[2021-03-08] MEDS: ENOXAPARIN 100 MG/1 ML INJ SUB-Q SCH ×2 (10:34→22:16)
--- NOTE | 2021-03-08 11:20 | Progress Note ---
Assessment and Plan 61 y/o female with acute respiratory failure secondary to COVID 19 pneumonia. 03/08/21: Continue to monitor urine output and function. Consider more fluid today. Maintain current level of sedation. Wean FiO2 for sats >88% and or PaO2 >55. Prognosis still remains guarded. Please do not wean PEEP until FiO2 as at 45-50% 03/07/21: Continue supportive measures. Monitor urine output and function. Labs are better today and she did put out more urine with fluid bolus so will give again today. Overall prognosis remains extremely guarded. 03/06/21: Overall clinical state is worsening. Now with difficulty ventilation and with improved ventilation comes a compromise in oxygenation. Newest concern is renal function which is worsening. If patient requires dialysis then mortality increases and prognosis worsens. If requires HD, prognosis is very very guarded to poor. 03/05/21: Added versed drip to fent and Diprovan to keep RASS at -4. Will also order precedex in the event it is needed. Repeat ABG somewhat improved but i ncreased RR. Must watch Peak Pressures. attempting to do low lung volume protective ventilator strategy. Patient has actually been off steroids for some time. Will not restart as of yet. Unable to prone. Guarded prognosis. This discussion was had over the weekend with the daughter when I thought we would have to intubate then. Explained that vent is not therapy but only something to give her lungs time to rest, if possible to see if they can recover. Prognosis is very guarded to poor. 03/04/21: Continue supportive care between HFNC and bipap therapy. Steroids. Positive reinforcement. 03/03/21: Long discussion at bedside with patient. Today she stated that she did not want to be intubated. I attempted to call her daughter while I was in the room with the patient but no answer. She will remain full code as she has said this in the past and then revoked after speaking with the daughter ( which is why i called her again this morning). Continue bipap and monitor. Guarded p rognosis. 03/02/21: Prone if able. Continue steroids. Negative fluid balance if possible. Prognosis remains very guarded 02/28/21: Prone. Steroids. Net negative fluid balance if possible. Guarded prognosis. 02/27/21: Full code status. Prone as much as possible during the day and sleep prone at night. Patient may require intubation ultimately. Guarded prognosis. 02/26/21: Prone if possible. Continue anticoagulation for DVT. Steroids. Net negative fluid balance. 02/25/21: Long discussion at bedside with patient, whom per her, she has discussed this with her daughter. She does no want an endotracheal tube. She does not want chest compression and she does not want shocks. I did not ask about vasopressors. The patient is awake and alert and oriented. This needs to be addressed by primary team as well an if confirmed, I have no problem with cosigning AND order. Continue supportive measures for now. Guarded to poor prognosis. 02/21/21: BNP normal. Still would attempt to achieve net negative fluid balance daily. Continue Remdesivir and steroids. Prone if patient willing. Follow up CTA results. Discussed with IMS, may change anticoagulation but awaiting official ready on CTA. Guareded prognosis. 02/20/21: Follow up CTA results. Will send BNP. Continue steroids and Remdesivir. Guarded prognosis. Prone if able, very pertinent to do this. 1. self proning as tolerated during the day and prone at night while sleeping 2. Steroids and Remdesivir 3. Daily net negative volume state 4. Consider checking BNP and echo to make sure no edema on this film 5. Agree with empiric anticoagulation given elevated D-Dimer Guarded prognosis. Will continue to follow. Subjective Date of service: 03/08/21 Principal diagnosis: COVID pneumonia Interval history: No acute events. Continues to make urine. Tolerating weaning. Remains on sedation. Objective Vital Signs - 12hr 03/07/21 03/07/21 03/07/21 23:15 23:30 23:34 Temperature 98.7 F Pulse Rate 66 66 Pulse Rate [ From Monitor] Respiratory 30 H 30 H Rate Blood Pressure 93/61 96/60 O2 Sat by Pulse 96 95 Oximetry 03/07/21 03/08/21 03/08/21 23:45 00:00 00:15 Temperature Pulse Rate 65 65 65 Pulse Rate [ 69 From Monitor] Respiratory 30 H 30 H 30 H Rate Blood Pressure 92/60 94/61 96/60 O2 Sat by Pulse 96 96 96 Oximetry 03/08/21 03/08/21 03/08/21 00:30 00:45 01:00 Temperature Pulse Rate 65 64 65 Pulse Rate [ From Monitor] Respiratory 30 H 30 H 30 H Rate Blood Pressure 93/61 96/58 96/60 O2 Sat by Pulse 96 96 96 Oximetry 03/08/21 03/08/21 03/08/21 01:15 01:30 01:45 Temperature Pulse Rate 65 64 63 Pulse Rate [ From Monitor] Respiratory 30 H 30 H 30 H Rate Blood Pressure 97/61 94/60 105/66 O2 Sat by Pulse 96 96 96 Oximetry 03/08/21 03/08/21 03/08/21 02:00 02:15 02:30 Temperature Pulse Rate 64 64 64 Pulse Rate [ From Monitor] Respiratory 30 H 30 H 30 H Rate Blood Pressure 105/65 99/65 104/63 O2 Sat by Pulse 96 97 96 Oximetry 03/08/21 03/08/21 03/08/21 02:45 03:00 03:15 Temperature Pulse Rate 65 65 64 Pulse Rate [ From Monitor] Respiratory 30 H 30 H 30 H Rate Blood Pressure 102/64 102/64 102/65 O2 Sat by Pulse 97 96 96 Oximetry 03/08/21 03/08/21 03/08/21 03:30 03:35 03:45 Temperature 98.9 F Pulse Rate 64 63 Pulse Rate [ From Monitor] Respiratory 30 H 30 H Rate Blood Pressure 104/65 105/65 O2 Sat by Pulse 96 96 Oximetry 03/08/21 03/08/21 03/08/21 04:00 04:15 04:30 Temperature Pulse Rate 63 65 65 Pulse Rate [ 69 From Monitor] Respiratory 30 H 30 H 30 H Rate Blood Pressure 100/63 104/64 95/61 O2 Sat by Pulse 96 97 93 Oximetry 03/08/21 03/08/21 03/08/21 04:45 05:00 05:15 Temperature Pulse Rate 64 65 64 Pulse Rate [ From Monitor] Respiratory 30 H 30 H 30 H Rate Blood Pressure 112/69 103/68 104/66 O2 Sat by Pulse 94 95 95 Oximetry 03/08/21 03/08/21 03/08/21 05:26 05:30 05:45 Temperature Pulse Rate 66 66 65 Pulse Rate [ From Monitor] Respiratory 30 H 30 H Rate Blood Pressure 104/66 101/68 102/67 O2 Sat by Pulse 96 96 96 Oximetry 03/08/21 03/08/21 03/08/21 06:00 06:15 06:30 Temperature Pulse Rate 68 68 67 Pulse Rate [ From Monitor] Respiratory 30 H 30 H 31 H Rate Blood Pressure 101/64 104/64 102/65 O2 Sat by Pulse 96 96 95 Oximetry 03/08/21 03/08/21 03/08/21 06:45 07:00 07:15 Temperature Pulse Rate 68 70 70 Pulse Rate [ From Monitor] Respiratory 24 21 27 H Rate Blood Pressure 103/62 98/66 97/62 O2 Sat by Pulse 94 93 94 Oximetry 03/08/21 03/08/21 03/08/21 07:25 07:30 07:45 Temperature 97.6 F Pulse Rate 70 69 Pulse Rate [ From Monitor] Respiratory 23 24 Rate Blood Pressure 100/63 104/63 O2 Sat by Pulse 93 93 Oximetry 03/08/21 03/08/21 03/08/21 08:00 08:15 08:30 Temperature Pulse Rate 74 71 73 Pulse Rate [ 76 From Monitor] Respiratory 24 32 H 26 H Rate Blood Pressure 92/53 107/63 104/65 O2 Sat by Pulse 92 92 92 Oximetry 03/08/21 03/08/21 03/08/21 08:37 08:45 09:00 Temperature Pulse Rate 71 72 69 Pulse Rate [ From Monitor] Respiratory 19 24 Rate Blood Pressure 104/65 104/67 100/61 O2 Sat by Pulse 92 99 94 Oximetry 03/08/21 03/08/21 03/08/21 09:15 09:30 09:45 Temperature Pulse Rate 70 71 74 Pulse Rate [ From Monitor] Respiratory 31 H 23 23 Rate Blood Pressure 99/64 98/60 104/62 O2 Sat by Pulse 93 93 Oximetry 03/08/21 03/08/21 10:00 10:15 Temperature Pulse Rate 74 70 Pulse Rate [ From Monitor] Respiratory 28 H 22 Rate Blood Pressure 106/69 105/67 O2 Sat by Pulse 96 Oximetry Constitutional: alert, other (on hiflo) ENT: oropharynx moist Neck: supple Ascultation: Bilateral: diminished breath sounds Cardiovascular: regular rate and rhythm Gastrointestinal: normoactive bowel sounds, soft, non-tender, non-distended Integumentary: normal Extremities: no cyanosis CBC and BMP: 03/08/21 04:30 03/08/21 04:30 ABG, PT/INR, D-dimer: ABG ABG pH 7.355 pH Units (7.350-7.450) 03/08/21 10:00 ABG pCO2 52.9 mm Hg 03/08/21 10:00 ABG pO2 73.8 mm Hg (80.0-90.0) L 03/08/21 10:00 ABG O2 Saturation 95.1 % (95.0-99.0) 03/08/21 10:00 PT/INR, D-dimer PT 13.9 Sec. (12.2-14.9) 02/17/21 14:34 INR 0.96 (0.87-1.13) 02/17/21 14:34 D-Dimer 3469.99 ng/mlDDU (0-234) H 03/01/21 05:12 Abnormal lab findings: Abnormal Labs 02/17/21 02/17/21 02/17/21 14:34 14:34 14:34 WBC 11.7 H RBC Hgb Hct 44.9 H RDW 15.6 H Plt Count Seg Neuts % (Manual) Lymphocytes % (Manual) 9.0 L Monocytes % (Manual) 12.0 H Seg Neutrophils # Man 8.2 H Lymphocytes # (Manual) 1.1 L Monocytes # (Manual) 1.4 H D-Dimer ABG pH ABG pO2 ABG HCO3 ABG O2 Saturation ABG Base Excess ABG Hemoglobin Oxyhemoglobin Sodium Potassium 3.5 L Chloride BUN 27 H Creatinine Glucose 150 H POC Glucose Lactic Acid 2.90 H* Calcium Phosphorus Magnesium Ferritin AST Lactate Dehydrogenase C-Reactive Protein NT-Pro-B Natriuret Pep Albumin Triglycerides Urine WBC (Auto) Urine Creatinine Coronavirus (PCR) 02/17/21 02/18/21 02/18/21 14:34 07:48 07:48 WBC 12.0 H RBC Hgb Hct RDW 15.4 H Plt Count Seg Neuts % (Manual) 76.0 H Lymphocytes % (Manual) Monocytes % (Manual) Seg Neutrophils # Man 9.1 H Lymphocytes # (Manual) Monocytes # (Manual) D-Dimer ABG pH ABG pO2 ABG HCO3 ABG O2 Saturation ABG Base Excess ABG Hemoglobin Oxyhemoglobin Sodium Potassium Chloride BUN 36 H Creatinine Glucose 133 H POC Glucose Lactic Acid Calcium Phosphorus Magnesium Ferritin AST 57 H Lactate Dehydrogenase C-Reactive Protein NT-Pro-B Natriuret Pep 1619 H Albumin 3.3 L Triglycerides Urine WBC (Auto) Urine Creatinine Coronavirus (PCR) 02/18/21 02/18/21 02/19/21 Unknown Unknown 07:32 WBC RBC Hgb Hct RDW Plt Count Seg Neuts % (Manual) Lymphocytes % (Manual) Monocytes % (Manual) Seg Neutrophils # Man Lymphocytes # (Manual) Monocytes # (Manual) D-Dimer ABG pH ABG pO2 ABG HCO3 ABG O2 Saturation ABG Base Excess ABG Hemoglobin Oxyhemoglobin Sodium 148 H D Potassium Chloride BUN 41 H Creatinine Glucose 123 H POC Glucose Lactic Acid Calcium Phosphorus Magnesium Ferritin AST 57 H Lactate Dehydrogenase C-Reactive Protein NT-Pro-B Natriuret Pep Albumin 3.7 L Triglycerides Urine WBC (Auto) 7.0 H Urine Creatinine Coronavirus (PCR) Positive A 02/19/21 02/19/21 02/20/21 07:32 08:43 05:00 WBC RBC Hgb Hct RDW Plt Count Seg Neuts % (Manual) Lymphocytes % (Manual) Monocytes % (Manual) Seg Neutrophils # Man Lymphocytes # (Manual) Monocytes # (Manual) D-Dimer > 22357 H ABG pH ABG pO2 ABG HCO3 ABG O2 Saturation ABG Base Excess ABG Hemoglobin Oxyhemoglobin Sodium 147 H Potassium Chloride 107.6 H BUN 36 H Creatinine Glucose POC Glucose Lactic Acid Calcium Phosphorus Magnesium Ferritin AST Lactate Dehydrogenase C-Reactive Protein 10.90 H NT-Pro-B Natriuret Pep Albumin 3.3 L Triglycerides Urine WBC (Auto) Urine Creatinine Coronavirus (PCR) 02/20/21 02/21/21 02/21/21 18:46 04:44 04:44 WBC 16.7 H RBC Hgb Hct RDW Plt Count Seg Neuts % (Manual) Lymphocytes % (Manual) Monocytes % (Manual) Seg Neutrophils # Man Lymphocytes # (Manual) Monocytes # (Manual) D-Dimer ABG pH 7.453 H ABG pO2 55.0 L ABG HCO3 26.6 H ABG O2 Saturation 88.3 L ABG Base Excess ABG Hemoglobin Oxyhemoglobin 86.8 L Sodium Potassium Chloride BUN 26 H Creatinine Glucose 111 H POC Glucose Lactic Acid Calcium Phosphorus Magnesium Ferritin AST Lactate Dehydrogenase C-Reactive Protein NT-Pro-B Natriuret Pep Albumin 3.4 L Triglycerides Urine WBC (Auto) Urine Creatinine Coronavirus (PCR) 02/22/21 02/23/21 02/23/21 04:47 09:05 09:05 WBC 19.3 H RBC 5.29 H Hgb 15.2 H Hct 47.7 H D RDW Plt Count Seg Neuts % (Manual) 82.0 H Lymphocytes % (Manual) 6.0 L Monocytes % (Manual) Seg Neutrophils # Man 15.8 H Lymphocytes # (Manual) Monocytes # (Manual) 1.0 H D-Dimer ABG pH ABG pO2 ABG HCO3 ABG O2 Saturation ABG Base Excess ABG Hemoglobin Oxyhemoglobin Sodium Potassium Chloride BUN 25 H 27 H Creatinine Glucose 125 H POC Glucose Lactic Acid Calcium Phosphorus Magnesium Ferritin AST Lactate Dehydrogenase C-Reactive Protein NT-Pro-B Natriuret Pep Albumin 3.3 L Triglycerides Urine WBC (Auto) Urine Creatinine Coronavirus (PCR) 02/23/21 02/23/21 02/24/21 11:33 16:24 04:50 WBC 14.8 H RBC Hgb Hct RDW Plt Count Seg Neuts % (Manual) Lymphocytes % (Manual) Monocytes % (Manual) Seg Neutrophils # Man Lymphocytes # (Manual) Monocytes # (Manual) D-Dimer ABG pH ABG pO2 ABG HCO3 ABG O2 Saturation ABG Base Excess ABG Hemoglobin Oxyhemoglobin Sodium Potassium Chloride BUN Creatinine Glucose POC Glucose 117 H 163 H Lactic Acid Calcium Phosphorus Magnesium Ferritin AST Lactate Dehydrogenase C-Reactive Protein NT-Pro-B Natriuret Pep Albumin Triglycerides Urine WBC (Auto) Urine Creatinine Coronavirus (PCR) 02/24/21 02/25/21 02/27/21 04:50 21:12 04:57 WBC 17.0 H RBC Hgb Hct 43.4 H RDW Plt Count Seg Neuts % (Manual) 84.0 H Lymphocytes % (Manual) 4.0 L Monocytes % (Manual) Seg Neutrophils # Man 14.3 H Lymphocytes # (Manual) 0.7 L Monocytes # (Manual) 0.9 H D-Dimer ABG pH ABG pO2 ABG HCO3 ABG O2 Saturation ABG Base Excess ABG Hemoglobin Oxyhemoglobin Sodium Potassium Chloride BUN 23 H Creatinine Glucose POC Glucose 175 H Lactic Acid Calcium Phosphorus Magnesium Ferritin AST Lactate Dehydrogenase C-Reactive Protein NT-Pro-B Natriuret Pep Albumin Triglycerides Urine WBC (Auto) Urine Creatinine Coronavirus (PCR) 02/27/21 02/27/21 02/27/21 04:57 04:57 04:57 WBC RBC Hgb Hct RDW Plt Count Seg Neuts % (Manual) Lymphocytes % (Manual) Monocytes % (Manual) Seg Neutrophils # Man Lymphocytes # (Manual) Monocytes # (Manual) D-Dimer 5013.37 H ABG pH ABG pO2 ABG HCO3 ABG O2 Saturation ABG Base Excess ABG Hemoglobin Oxyhemoglobin Sodium Potassium Chloride BUN 23 H Creatinine 0.5 L Glucose 113 H POC Glucose Lactic Acid Calcium Phosphorus Magnesium Ferritin 1272.0 H AST Lactate Dehydrogenase 438 H C-Reactive Protein 5.80 H NT-Pro-B Natriuret Pep Albumin Triglycerides Urine WBC (Auto) Urine Creatinine Coronavirus (PCR) 02/27/21 02/27/21 02/28/21 17:53 21:12 07:40 WBC RBC Hgb Hct RDW Plt Count Seg Neuts % (Manual) Lymphocytes % (Manual) Monocytes % (Manual) Seg Neutrophils # Man Lymphocytes # (Manual) Monocytes # (Manual) D-Dimer ABG pH ABG pO2 ABG HCO3 ABG O2 Saturation ABG Base Excess ABG Hemoglobin Oxyhemoglobin Sodium Potassium Chloride BUN Creatinine Glucose POC Glucose 159 H 112 H 123 H Lactic Acid Calcium Phosphorus Magnesium Ferritin AST Lactate Dehydrogenase C-Reactive Protein NT-Pro-B Natriuret Pep Albumin Triglycerides Urine WBC (Auto) Urine Creatinine Coronavirus (PCR) 02/28/21 02/28/21 02/28/21 11:42 16:20 22:26 WBC RBC Hgb Hct RDW Plt Count Seg Neuts % (Manual) Lymphocytes % (Manual) Monocytes % (Manual) Seg Neutrophils # Man Lymphocytes # (Manual) Monocytes # (Manual) D-Dimer ABG pH ABG pO2 ABG HCO3 ABG O2 Saturation ABG Base Excess ABG Hemoglobin Oxyhemoglobin Sodium Potassium Chloride BUN Creatinine Glucose POC Glucose 112 H 138 H 129 H Lactic Acid Calcium Phosphorus Magnesium Ferritin AST Lactate Dehydrogenase C-Reactive Protein NT-Pro-B Natriuret Pep Albumin Triglycerides Urine WBC (Auto) Urine Creatinine Coronavirus (PCR) 03/01/21 03/01/21 03/01/21 05:12 05:12 05:12 WBC 15.0 H RBC 5.05 H Hgb Hct 44.7 H RDW Plt Count Seg Neuts % (Manual) 71.0 H Lymphocytes % (Manual) 11.0 L Monocytes % (Manual) 12.0 H Seg Neutrophils # Man 10.7 H Lymphocytes # (Manual) Monocytes # (Manual) 1.8 H D-Dimer 3469.99 H ABG pH ABG pO2 ABG HCO3 ABG O2 Saturation ABG Base Excess ABG Hemoglobin Oxyhemoglobin Sodium Potassium Chloride 97.3 L BUN Creatinine 0.5 L Glucose 115 H POC Glucose Lactic Acid Calcium Phosphorus Magnesium Ferritin AST Lactate Dehydrogenase 385 H C-Reactive Protein 11.20 H NT-Pro-B Natriuret Pep Albumin 2.8 L Triglycerides Urine WBC (Auto) Urine Creatinine Coronavirus (PCR) 03/01/21 03/01/21 03/01/21 05:12 07:30 11:42 WBC RBC Hgb Hct RDW Plt Count Seg Neuts % (Manual) Lymphocytes % (Manual) Monocytes % (Manual) Seg Neutrophils # Man Lymphocytes # (Manual) Monocytes # (Manual) D-Dimer ABG pH ABG pO2 ABG HCO3 ABG O2 Saturation ABG Base Excess ABG Hemoglobin Oxyhemoglobin Sodium Potassium Chloride BUN Creatinine Glucose POC Glucose 130 H 143 H Lactic Acid Calcium Phosphorus Magnesium Ferritin 1526.0 H AST Lactate Dehydrogenase C-Reactive Protein NT-Pro-B Natriuret Pep Albumin Triglycerides Urine WBC (Auto) Urine Creatinine Coronavirus (PCR) 03/01/21 03/01/21 03/01/21 15:28 17:53 21:16 WBC RBC Hgb Hct RDW Plt Count Seg Neuts % (Manual) Lymphocytes % (Manual) Monocytes % (Manual) Seg Neutrophils # Man Lymphocytes # (Manual) Monocytes # (Manual) D-Dimer ABG pH ABG pO2 ABG HCO3 ABG O2 Saturation ABG Base Excess ABG Hemoglobin Oxyhemoglobin Sodium Potassium Chloride BUN Creatinine Glucose POC Glucose 138 H 120 H 157 H Lactic Acid Calcium Phosphorus Magnesium Ferritin AST Lactate Dehydrogenase C-Reactive Protein NT-Pro-B Natriuret Pep Albumin Triglycerides Urine WBC (Auto) Urine Creatinine Coronavirus (PCR) 03/01/21 03/02/21 03/02/21 22:07 07:44 11:40 WBC RBC Hgb Hct RDW Plt Count Seg Neuts % (Manual) Lymphocytes % (Manual) Monocytes % (Manual) Seg Neutrophils # Man Lymphocytes # (Manual) Monocytes # (Manual) D-Dimer ABG pH ABG pO2 35.9 L* ABG HCO3 31.2 H ABG O2 Saturation 68.0 L ABG Base Excess 6.1 H ABG Hemoglobin Oxyhemoglobin 66.1 L Sodium Potassium Chloride BUN Creatinine Glucose POC Glucose 125 H 203 H Lactic Acid Calcium Phosphorus Magnesium Ferritin AST Lactate Dehydrogenase C-Reactive Protein NT-Pro-B Natriuret Pep Albumin Triglycerides Urine WBC (Auto) Urine Creatinine Coronavirus (PCR) 03/02/21 03/02/21 03/02/21 12:13 13:00 17:15 WBC RBC Hgb Hct RDW Plt Count Seg Neuts % (Manual) Lymphocytes % (Manual) Monocytes % (Manual) Seg Neutrophils # Man Lymphocytes # (Manual) Monocytes # (Manual) D-Dimer ABG pH ABG pO2 36.0 L* ABG HCO3 29.5 H ABG O2 Saturation 68.7 L ABG Base Excess 4.7 H ABG Hemoglobin Oxyhemoglobin 66.8 L Sodium Potassium Chloride BUN Creatinine Glucose POC Glucose 130 H 126 H Lactic Acid Calcium Phosphorus Magnesium Ferritin AST Lactate Dehydrogenase C-Reactive Protein NT-Pro-B Natriuret Pep Albumin Triglycerides Urine WBC (Auto) Urine Creatinine Coronavirus (PCR) 03/02/21 03/03/21 03/03/21 21:45 08:02 10:05 WBC 19.2 H RBC Hgb Hct 44.9 H RDW Plt Count Seg Neuts % (Manual) 85.0 H Lymphocytes % (Manual) 7.0 L Monocytes % (Manual) Seg Neutrophils # Man 16.3 H Lymphocytes # (Manual) Monocytes # (Manual) 1.2 H D-Dimer ABG pH ABG pO2 ABG HCO3 ABG O2 Saturation ABG Base Excess ABG Hemoglobin Oxyhemoglobin Sodium Potassium Chloride BUN Creatinine Glucose POC Glucose 113 H 128 H Lactic Acid Calcium Phosphorus Magnesium Ferritin AST Lactate Dehydrogenase C-Reactive Protein NT-Pro-B Natriuret Pep Albumin Triglycerides Urine WBC (Auto) Urine Creatinine Coronavirus (PCR) 03/03/21 03/03/21 03/03/21 10:05 12:45 16:31 WBC RBC Hgb Hct RDW Plt Count Seg Neuts % (Manual) Lymphocytes % (Manual) Monocytes % (Manual) Seg Neutrophils # Man Lymphocytes # (Manual) Monocytes # (Manual) D-Dimer ABG pH ABG pO2 47.7 L ABG HCO3 31.5 H ABG O2 Saturation 82.5 L ABG Base Excess 5.6 H ABG Hemoglobin Oxyhemoglobin 80.4 L Sodium Potassium Chloride 97.8 L BUN 23 H Creatinine Glucose 141 H POC Glucose 126 H Lactic Acid Calcium Phosphorus Magnesium Ferritin AST Lactate Dehydrogenase C-Reactive Protein NT-Pro-B Natriuret Pep Albumin 3.2 L Triglycerides Urine WBC (Auto) Urine Creatinine Coronavirus (PCR) 03/03/21 03/04/21 03/04/21 20:52 07:24 11:04 WBC RBC Hgb Hct RDW Plt Count Seg Neuts % (Manual) Lymphocytes % (Manual) Monocytes % (Manual) Seg Neutrophils # Man Lymphocytes # (Manual) Monocytes # (Manual) D-Dimer ABG pH ABG pO2 ABG HCO3 ABG O2 Saturation ABG Base Excess ABG Hemoglobin Oxyhemoglobin Sodium Potassium Chloride BUN Creatinine Glucose POC Glucose 152 H 126 H 142 H Lactic Acid Calcium Phosphorus Magnesium Ferritin AST Lactate Dehydrogenase C-Reactive Protein NT-Pro-B Natriuret Pep Albumin Triglycerides Urine WBC (Auto) Urine Creatinine Coronavirus (PCR) 03/04/21 03/04/21 03/04/21 11:05 15:33 21:12 WBC RBC Hgb Hct RDW Plt Count Seg Neuts % (Manual) Lymphocytes % (Manual) Monocytes % (Manual) Seg Neutrophils # Man Lymphocytes # (Manual) Monocytes # (Manual) D-Dimer ABG pH ABG pO2 ABG HCO3 ABG O2 Saturation ABG Base Excess ABG Hemoglobin Oxyhemoglobin Sodium Potassium Chloride BUN 34 H Creatinine Glucose 143 H POC Glucose 114 H 180 H Lactic Acid Calcium Phosphorus Magnesium Ferritin AST Lactate Dehydrogenase C-Reactive Protein NT-Pro-B Natriuret Pep Albumin Triglycerides Urine WBC (Auto) Urine Creatinine Coronavirus (PCR) 03/04/21 03/05/21 03/05/21 21:30 07:51 10:10 WBC 17.8 H RBC Hgb 14.5 H Hct 45.8 H RDW 15.3 H Plt Count 446 H Seg Neuts % (Manual) 77.0 H Lymphocytes % (Manual) 12.0 L Monocytes % (Manual) Seg Neutrophils # Man 13.7 H Lymphocytes # (Manual) Monocytes # (Manual) 0.9 H D-Dimer ABG pH 7.473 H ABG pO2 34.1 L* ABG HCO3 29.7 H ABG O2 Saturation 66.4 L ABG Base Excess 5.6 H ABG Hemoglobin Oxyhemoglobin 64.9 L Sodium Potassium Chloride BUN Creatinine Glucose POC Glucose 144 H Lactic Acid Calcium Phosphorus Magnesium Ferritin AST Lactate Dehydrogenase C-Reactive Protein NT-Pro-B Natriuret Pep Albumin Triglycerides Urine WBC (Auto) Urine Creatinine Coronavirus (PCR) 03/05/21 03/05/2103/05/22 10:10 11:41 12:23 WBC RBC Hgb Hct RDW Plt Count Seg Neuts % (Manual) Lymphocytes % (Manual) Monocytes % (Manual) Seg Neutrophils # Man Lymphocytes # (Manual) Monocytes # (Manual) D-Dimer ABG pH 7.226 L ABG pO2 50.5 L ABG HCO3 32.8 H ABG O2 Saturation 73.6 L ABG Base Excess ABG Hemoglobin 18.2 H Oxyhemoglobin 71.8 L Sodium Potassium 3.5 L Chloride BUN 51 H Creatinine Glucose 217 H POC Glucose 124 H Lactic Acid Calcium Phosphorus Magnesium Ferritin AST Lactate Dehydrogenase C-Reactive Protein NT-Pro-B Natriuret Pep Albumin 3.1 L Triglycerides Urine WBC (Auto) Urine Creatinine Coronavirus (PCR) 03/05/21 03/05/21 03/06/21 16:40 22:39 00:37 WBC RBC Hgb Hct RDW Plt Count Seg Neuts % (Manual) Lymphocytes % (Manual) Monocytes % (Manual) Seg Neutrophils # Man Lymphocytes # (Manual) Monocytes # (Manual) D-Dimer ABG pH ABG pO2 ABG HCO3 ABG O2 Saturation ABG Base Excess ABG Hemoglobin Oxyhemoglobin Sodium Potassium Chloride BUN Creatinine Glucose POC Glucose 138 H 139 H 126 H Lactic Acid Calcium Phosphorus Magnesium Ferritin AST Lactate Dehydrogenase C-Reactive Protein NT-Pro-B Natriuret Pep Albumin Triglycerides Urine WBC (Auto) Urine Creatinine Coronavirus (PCR) 03/06/21 03/06/21 03/06/21 04:25 06:13 06:13 WBC 18.4 H RBC Hgb Hct RDW 15.3 H Plt Count Seg Neuts % (Manual) Lymphocytes % (Manual) Monocytes % (Manual) Seg Neutrophils # Man Lymphocytes # (Manual) Monocytes # (Manual) D-Dimer ABG pH 7.028 L* ABG pO2 ABG HCO3 33.8 H ABG O2 Saturation 92.5 L ABG Base Excess ABG Hemoglobin Oxyhemoglobin 90.6 L Sodium 149 H Potassium Chloride 107.2 H BUN 62 H Creatinine 1.9 H D Glucose 140 H POC Glucose Lactic Acid Calcium 7.7 L D Phosphorus 10.70 H Magnesium 2.40 H Ferritin AST Lactate Dehydrogenase C-Reactive Protein NT-Pro-B Natriuret Pep Albumin Triglycerides Urine WBC (Auto) Urine Creatinine Coronavirus (PCR) 03/06/21 03/06/2122 06:13 09:00 12:00 WBC RBC Hgb Hct RDW Plt Count Seg Neuts % (Manual) Lymphocytes % (Manual) Monocytes % (Manual) Seg Neutrophils # Man Lymphocytes # (Manual) Monocytes # (Manual) D-Dimer ABG pH ABG pO2 ABG HCO3 ABG O2 Saturation ABG Base Excess ABG Hemoglobin Oxyhemoglobin Sodium Potassium Chloride BUN Creatinine Glucose POC Glucose 155 H 122 H Lactic Acid Calcium Phosphorus Magnesium Ferritin AST Lactate Dehydrogenase C-Reactive Protein NT-Pro-B Natriuret Pep Albumin Triglycerides Urine WBC (Auto) Urine Creatinine 247.7 H Coronavirus (PCR) 03/06/21 03/06/21 03/06/21 17:16 22:23 Unknown WBC RBC Hgb Hct RDW Plt Count Seg Neuts % (Manual) Lymphocytes % (Manual) Monocytes % (Manual) Seg Neutrophils # Man Lymphocytes # (Manual) Monocytes # (Manual) D-Dimer ABG pH 7.253 L ABG pO2 66.5 L ABG HCO3 31.3 H ABG O2 Saturation 91.8 L ABG Base Excess ABG Hemoglobin 16.8 H Oxyhemoglobin 90.1 L Sodium Potassium Chloride BUN Creatinine Glucose POC Glucose 123 H 123 H Lactic Acid Calcium Phosphorus Magnesium Ferritin AST Lactate Dehydrogenase C-Reactive Protein NT-Pro-B Natriuret Pep Albumin Triglycerides Urine WBC (Auto) Urine Creatinine Coronavirus (PCR) 03/07/21 03/07/21 03/07/21 00:36 04:05 04:05 WBC 18.0 H RBC Hgb Hct RDW Plt Count Seg Neuts % (Manual) Lymphocytes % (Manual) Monocytes % (Manual) Seg Neutrophils # Man Lymphocytes # (Manual) Monocytes # (Manual) D-Dimer ABG pH ABG pO2 ABG HCO3 ABG O2 Saturation ABG Base Excess ABG Hemoglobin Oxyhemoglobin Sodium Potassium Chloride BUN 75 H Creatinine 1.5 H Glucose 113 H POC Glucose 121 H Lactic Acid Calcium Phosphorus Magnesium Ferritin AST Lactate Dehydrogenase C-Reactive Protein NT-Pro-B Natriuret Pep Albumin Triglycerides Urine WBC (Auto) Urine Creatinine Coronavirus (PCR) 03/07/21 03/07/21 03/07/21 04:05 04:49 05:38 WBC RBC Hgb Hct RDW Plt Count Seg Neuts % (Manual) Lymphocytes % (Manual) Monocytes % (Manual) Seg Neutrophils # Man Lymphocytes # (Manual) Monocytes # (Manual) D-Dimer ABG pH 7.280 L ABG pO2 ABG HCO3 29.3 H ABG O2 Saturation ABG Base Excess ABG Hemoglobin Oxyhemoglobin 94.4 L Sodium Potassium Chloride BUN Creatinine Glucose POC Glucose 112 H Lactic Acid Calcium Phosphorus Magnesium Ferritin AST Lactate Dehydrogenase C-Reactive Protein NT-Pro-B Natriuret Pep Albumin Triglycerides 171 H Urine WBC (Auto) Urine Creatinine Coronavirus (PCR) 03/07/21 03/07/21 03/08/21 12:13 18:13 04:30 WBC 12.5 H RBC Hgb Hct RDW Plt Count Seg Neuts % (Manual) Lymphocytes % (Manual) Monocytes % (Manual) Seg Neutrophils # Man Lymphocytes # (Manual) Monocytes # (Manual) D-Dimer ABG pH ABG pO2 ABG HCO3 ABG O2 Saturation ABG Base Excess ABG Hemoglobin Oxyhemoglobin Sodium Potassium Chloride BUN Creatinine Glucose POC Glucose 113 H 111 H Lactic Acid Calcium Phosphorus Magnesium Ferritin AST Lactate Dehydrogenase C-Reactive Protein NT-Pro-B Natriuret Pep Albumin Triglycerides Urine WBC (Auto) Urine Creatinine Coronavirus (PCR) 03/08/21 03/08/21 03/08/21 04:30 05:04 10:00 WBC RBC Hgb Hct RDW Plt Count Seg Neuts % (Manual) Lymphocytes % (Manual) Monocytes % (Manual) Seg Neutrophils # Man Lymphocytes # (Manual) Monocytes # (Manual) D-Dimer ABG pH ABG pO2 73.8 L ABG HCO3 28.9 H ABG O2 Saturation ABG Base Excess ABG Hemoglobin 11.0 L Oxyhemoglobin 93.4 L Sodium Potassium Chloride BUN 69 H Creatinine Glucose 107 H POC Glucose 111 H Lactic Acid Calcium Phosphorus Magnesium Ferritin AST Lactate Dehydrogenase C-Reactive Protein NT-Pro-B Natriuret Pep Albumin Triglycerides Urine WBC (Auto) Urine Creatinine Coronavirus (PCR)
--- NOTE | 2021-03-08 11:40 | Progress Note ---
Assessment and Plan Assessment and plan: This is a 61-year-old female with past medical history of HTN, DM, and DVT on Eliquis at home admitted for acute hypoxic Respiratory failure 2/2 COVID pneumonia now on ventilatory support. Hospital Course to Date: 02/19/2020 Patient on 50% Ventimask Covid positive Continue steroids May DC antibiotics Respiratory assessment and treatment 02/19: Patient still hypoxic, encourage prone positioning, Pulmonary and ID consult. Will obtain CTA chest to evaluate for PE. Continue steroid therapy and oxygen therapy wean as tolerated. Continuous pulse oximeter. Plan discussed with the patient. 02/20: Patient seen and examined, remains on NRBM. awaiting CT CHEST WITH ANGIO Ordered yesterday. Encourage proning the patient says she was not proned yesterday discussed with nursing staff. Continue steroid therapy and remdesivir. Patient was seen by ID and as documented by ID"She is a candidate for Actemra based on CRp and O2 requirements. unfortunately we have not been getting pr ocalcitonin results. -ordered Actemra once (afebrile, white count only mildly elevated in the setting of steroids)" Discussed plan of care with the nurse. Also called to updated the patients sister listed as NOK but got voice mail 02/21: Continue steroids, remdesivir, patient received 1 dose of Actemra but unable to get the second dose due to availability. CTA showed dense consolidation but no effusion and no pulmonary embolism patient does have a lower extremity DVT. Eliquis continues at full dose of 5 mg twice daily we will continue to monitor closely. Prognosis is guarded counseling for compliance for 15 minutes. 02/22: Patient clinically not improving much of switch the patient to Lovenox. Prognosis remains guarded. Continue anticoagulation due to DVT still suspicious of pulmonary embolism as a result we will obtain echocardiogram and vascular consult per pulmonary request which I agree with. I will also transfer the patient to stepdown unit for closer monitoring. 02/23: Vascular input noted agree the patient has subsegmental bibasilar pulmonary embolism but not enough to warrant intervention. Does not feel that this is contributing majority to her hypoxia. Nevertheless we will switch patient from Eliquis to Lovenox. Continue current management with remdesivir 02/24: Patient seen and examined, remains on anticoagulation, continue remedsivir and steroids. prone as tolerated, will give additional lasix today. Guarded prognosis. 02/25 A&O x 3, C/O mild cough with mucoid expectorant. Denies CP or shortness of breath. Remains on HFNC. pulmonary note and lab results reviewed 02/26: AOX3, proning on encounter. Encouraged continued movement while in bed and with assistance of care staff. Remains on HFNC. Last day of decadron today. 02/27: Patient encouraged to continue proning and remain active. Discussed with PT to come work with patient to mobilize. Will d/w CM for snf placement solution. 02/28: Patient stated she would like to be a full code. Working with CM for LTAC placement. 03/01: Awaiting LTAC placement. Remains full code. Spoke with daughter Meghna who was updated on patient's case. 03/02: Sats in low 80s on hi lfow. Blood gas shows pao2 = 35.9. will start bipap, d/w IMCU RN who will notify RT. repeat abg in 1 hr. Poor prognosis. 03/03; Sats in low 90's on bipap. Repeat abg this AM demosntrates marginal improvement in PaO2. [facility] d/w daughter, patient and her daughter would like intubation should she continue to deteriorate. Prognosis remains poor. 03/04: de-escalated to HFNC 40/100 + venti. Will continue with bipap prn. Continue steroids. Dispo is still LTAC, placement is pending. 03/05: Resipratory distress this morning. Sats 69-70%. subsequently intubated. Now icu level of care. Family wants continue aggressive measures. Will follow [facility] recs. 03/06: Patient with ISH this am probably due to hypotension vs diuretic use, fluid bolus challenge this am. Urine lytes ordered. FWF added for hypernatremia. 03/07: Patient responded to fluid challenge, renal function improved, UOP better. Weaning down pressors, additional IVF bolus today, plan to wean down on pressors requirement. ABG improved today, wean down Fio2 as tolerated. Okay to start trickle feeds. 03/08: Renal function is back to baseline. Going down on pressor requirements, only on low dose Vaso and levophed today. Continue to wean pressors as tolerated. D/W CCm continue to wean Fio2 as tolerated, keep patient a RASS goal of -4 for now. Advance TF as tolerated per order. Assessment and Plan #Acute respiratory failure with hypoxia 2/2 COVID Pneumonia #ARSD - Intubated on 03/05 - Vent setting:CMV- 70%,20,30,350 - AM ABG noted - CCM consulted, appreciate recommendations - VAP bundle addressed - Aspiration precaution HOB above 30 - Sedation for RASS goal 0f -4 - Daily ABG and CXR - Continue SPO2 monitoring for SPO2 goal above 92% #Sepsis #Leukocytosis #Multifocal pneumonia #COVID Pneumonia - Now on pressors, Levo and Vaso - Titrate prerssors for MAP goal above 65 - Patient afebrile, with leukocytosis - Blood culture NGTD, sputum culture pending - Patient completed steroids course - Hold off on IV ABx and IV steroids for now - Continue to F/U on B.cult - Daily CBC monitor #Acute Kidney Injury(ISH) most likely ATN #Hypernatremia - Probably due to hypotension vs diuretic use - Patient was on IV Lasix - Renal function back to baseline this am - Strict intake and output - Avoid nephrotoxic medications; Renally dose medications - Head in place - Monitor and replace electrolytes as needed - Trend BMP #T2DM (type 2 diabetes mellitus) - SSI Q6hrs - Lantus Qhs - Avoid hypoglycemia #Acute RLE DVT - BLE doppler positive for DVT in right posteroir tibial vein - CTA chest negative PE - Continue AC- Lovenox SubQ The high probability of a clinically significant, sudden or life threatening deterioration of the [multiple] system(s) required my full and direct attention, intervention and personal management. The aggregate critical care time was [60] minutes. This time is in addition to time spent performing reported procedures but includes the following: [X] Data Review and interpretation [X] Patient assessment and monitoring of vital signs [X] Documentation [X] Medication orders and management Disposition Plan: ICU Total Time Spent with Patient (Minutes): 60 History Interval history: Patient seen and examined at the bedside. Intubated and sedated, RASS-4. Remains on vaso and levophed, however requirement is going down. [facility] overnight Hospitalist Physical - Constitutional Vitals: Temp Pulse Resp BP Pulse Ox 97.6 F 75 25 H 100/58 94 03/08/21 07:25 03/08/21 11:15 03/08/21 11:15 03/08/21 11:15 03/08/21 10:30 General appearance: Present: no acute distress, well-nourished, other (Intubated and Sedated) - EENT Eyes: Present: PERRL - Respiratory Respiratory effort: normal Respiratory: bilateral: rhonchi - Cardiovascular Rhythm: regular Heart Sounds: Present: S1 & S2 - Extremities Extremities: no ischemia, pulses intact, pulses symmetrical Extremity abnormal: edema - Peripheral Assessment Generalized Edema Type: Non-pitting Edema Degree: 1+ Capillary Refill: < 3 seconds Skin Temperature: Warm Peripheral Pulses: within normal limits - Abdominal General gastrointestinal: soft, non-distended, normal bowel sounds - Integumentary Integumentary: Present: warm, dry - Psychiatric Psychiatric: other (Intubated and Sedated) - Neurologic Neurologic: other (Intubated and Sedated) - Allied Health Allied health notes reviewed: nursing Results - Labs CBC & Chem 7: 03/08/21 04:30 03/08/21 04:30 Labs: Laboratory Last Values WBC 12.5 K/mm3 (4.5-11.0) H 03/08/21 04:30 RBC 3.65 M/mm3 (3.65-5.03) 03/08/21 04:30 Hgb 10.5 gm/dl (10.1-14.3) 03/08/21 04:30 Hct 33.4 % (30.3-42.9) 03/08/21 04:30 MCV 92 fl (79-97) 03/08/21 04:30 MCH 29 pg (28-32) 03/08/21 04:30 MCHC 32 % (30-34) 03/08/21 04:30 RDW 15.1 % (13.2-15.2) 03/08/21 04:30 Plt Count 282 K/mm3 (140-440) 03/08/21 04:30 Add Manual Diff Complete 03/05/21 10:10 Total Counted 100 03/05/21 10:10 Seg Neuts % (Manual) 77.0 % (40.0-70.0) H 03/05/21 10:10 Band Neutrophils % 3.0 % 03/05/21 10:10 Lymphocytes % (Manual) 12.0 % (13.4-35.0) L 03/05/21 10:10 Reactive Lymphs % (Man) 2.0 % 03/05/21 10:10 Monocytes % (Manual) 5.0 % (0.0-7.3) 03/05/21 10:10 Eosinophils % (Manual) 1.0 % (0.0-4.3) 03/05/21 10:10 Basophils % (Manual) 0 % (0.0-1.8) 03/05/21 10:10 Metamyelocytes % 0 % 03/05/21 10:10 Myelocytes % 0 % 03/05/21 10:10 Promyelocytes % 0 % 03/05/21 10:10 Blast Cells % 0 % 03/05/21 10:10 Nucleated RBC % Not Reportable 03/05/21 10:10 Seg Neutrophils # Man 13.7 K/mm3 (1.8-7.7) H 03/05/21 10:10 Band Neutrophils # 0.5 K/mm3 03/05/21 10:10 Lymphocytes # (Manual) 2.1 K/mm3 (1.2-5.4) 03/05/21 10:10 Abs React Lymphs (Man) 0.4 K/mm3 03/05/21 10:10 Monocytes # (Manual) 0.9 K/mm3 (0.0-0.8) H 03/05/21 10:10 Eosinophils # (Manual) 0.2 K/mm3 (0.0-0.4) 03/05/21 10:10 Basophils # (Manual) 0.0 K/mm3 (0.0-0.1) 03/05/21 10:10 Metamyelocytes # 0.0 K/mm3 03/05/21 10:10 Myelocytes # 0.0 K/mm3 03/05/21 10:10 Promyelocytes # 0.0 K/mm3 03/05/21 10:10 Blast Cells # 0.0 K/mm3 03/05/21 10:10 WBC Morphology Not Reportable 03/05/21 10:10 Hypersegmented Neuts Not Reportable 03/05/21 10:10 Hyposegmented Neuts Not Reportable 03/05/21 10:10 Hypogranular Neuts Not Reportable 03/05/21 10:10 Smudge Cells Not Reportable 03/05/21 10:10 Toxic Granulation Not Reportable 03/05/21 10:10 Toxic Vacuolation Not Reportable 03/05/21 10:10 Dohle Bodies Not Reportable 03/05/21 10:10 Pelger-Huet Anomaly Not Reportable 03/05/21 10:10 Cindy Rods Not Reportable 03/05/21 10:10 Platelet Estimate Consistent w auto 03/05/21 10:10 Clumped Platelets Not Reportable 03/05/21 10:10 Plt Clumps, EDTA Not Reportable 03/05/21 10:10 Large Platelets 1+ 03/05/21 10:10 Giant Platelets Not Reportable 03/05/21 10:10 Platelet Satelliting Not Reportable 03/05/21 10:10 Plt Morphology Comment Not Reportable 03/05/21 10:10 RBC Morphology Not Reportable 03/05/21 10:10 Dimorphic RBCs Not Reportable 03/05/21 10:10 Polychromasia Few 03/05/21 10:10 Hypochromasia Not Reportable 03/05/21 10:10 Poikilocytosis Not Reportable 03/05/21 10:10 Anisocytosis 1+ 03/05/21 10:10 Microcytosis Not Reportable 03/05/21 10:10 Macrocytosis Not Reportable 03/05/21 10:10 Spherocytes Not Reportable 03/05/21 10:10 Pappenheimer Bodies Not Reportable 03/05/21 10:10 Sickle Cells Not Reportable 03/05/21 10:10 Target Cells Not Reportable 03/05/21 10:10 Tear Drop Cells Not Reportable 03/05/21 10:10 Ovalocytes Not Reportable 03/05/21 10:10 Helmet Cells Not Reportable 03/05/21 10:10 [place] Bodies Not Reportable 03/05/21 10:10 [place] Rings Not Reportable 03/05/21 10:10 [place] Cells Not Reportable 03/05/21 10:10 Bite Cells Not Reportable 03/05/21 10:10 Crenated Cell Not Reportable 03/05/21 10:10 Elliptocytes Not Reportable 03/05/21 10:10 Acanthocytes (Spur) Not Reportable 03/05/21 10:10 Rouleaux Not Reportable 03/05/21 10:10 Hemoglobin C Crystals Not Reportable 03/05/21 10:10 Schistocytes Not Reportable 03/05/21 10:10 Malaria parasites Not Reportable 03/05/21 10:10 [place] Bodies Not Reportable 03/05/21 10:10 Hem Pathologist Commnt No 03/05/21 10:10 PT 13.9 Sec. (12.2-14.9) 02/17/21 14:34 INR 0.96 (0.87-1.13) 02/17/21 14:34 APTT 26.4 Sec. (24.2-36.6) 02/17/21 14:34 D-Dimer 3469.99 ng/mlDDU (0-234) H 03/01/21 05:12 ABG pH 7.355 pH Units (7.350-7.450) 03/08/21 10:00 ABG pCO2 52.9 mm Hg 03/08/21 10:00 ABG pO2 73.8 mm Hg (80.0-90.0) L 03/08/21 10:00 ABG HCO3 28.9 mmol/L (20.0-26.0) H 03/08/21 10:00 ABG O2 Saturation 95.1 % (95.0-99.0) 03/08/21 10:00 ABG O2 Content 14.5 (0.0-44) 03/08/21 10:00 ABG Base Excess 2.6 mmol/L (-2.0-3.0) 03/08/21 10:00 ABG Hemoglobin 11.0 gm/dl (12.0-16.0) L 03/08/21 10:00 ABG Carboxyhemoglobin 1.3 % (0.0-5.0) 03/08/21 10:00 ABG Methemoglobin 0.6 % (0.0-1.5) 03/08/21 10:00 Oxyhemoglobin 93.4 % (95.0-99.0) L 03/08/21 10:00 FiO2 70 % 03/08/21 10:00 Sodium 139 mmol/L (137-145) 03/08/21 04:30 Potassium 4.2 mmol/L (3.6-5.0) 03/08/21 04:30 Chloride 101.3 mmol/L (98-107) 03/08/21 04:30 Carbon Dioxide 28 mmol/L (22-30) 03/08/21 04:30 Anion Gap 14 mmol/L 03/08/21 04:30 BUN 69 mg/dL (7-17) H 03/08/21 04:30 Creatinine 1.0 mg/dL (0.6-1.2) 03/08/21 04:30 Estimated GFR > 60 ml/min 03/08/21 04:30 BUN/Creatinine Ratio 69 % 03/08/21 04:30 Glucose 107 mg/dL (65-100) H 03/08/21 04:30 POC Glucose 111 mg/dL (70-105) H 03/08/21 05:04 Lactic Acid 1.60 mmol/L (0.7-2.0) 02/17/21 18:39 Calcium 9.2 mg/dL (8.4-10.2) 03/08/21 04:30 Phosphorus 10.70 mg/dL (2.5-4.5) H 03/06/21 06:13 Magnesium 2.40 mg/dL (1.7-2.3) H 03/06/21 06:13 Ferritin 1526.0 ng/mL (10.0-200.0) H 03/01/21 05:12 Total Bilirubin 0.30 mg/dL (0.1-1.2) 03/05/21 10:10 Direct Bilirubin < 0.2 mg/dL (0-0.2) 02/17/21 14:34 Indirect Bilirubin 0.1 mg/dL 02/17/21 14:34 AST 38 units/L (5-40) 03/05/21 10:10 ALT 44 units/L (7-56) 03/05/21 10:10 Alkaline Phosphatase 78 units/L (35-129) 03/05/21 10:10 Lactate Dehydrogenase 385 units/L (91-180) H 03/01/21 05:12 C-Reactive Protein 11.20 mg/dL (0.00-1.30) H 03/01/21 05:12 NT-Pro-B Natriuret Pep 86.77 pg/mL (0-900) 02/20/21 16:34 Total Protein 7.7 g/dL (6.3-8.2) 03/05/21 10:10 Albumin 3.1 g/dL (3.9-5) L 03/05/21 10:10 Albumin/Globulin Ratio 0.7 % 03/05/21 10:10 Triglycerides 171 mg/dL (2-149) H 03/07/21 04:05 Procalcitonin 0.11 ng/mL (<0.15) 02/19/21 07:32 Urine Color Cassandra (Yellow) 02/18/21 Unknown Urine Turbidity Cloudy (Clear) 02/18/21 Unknown Urine pH 5.0 (5.0-7.0) 02/18/21 Unknown Ur Specific [place] 1.027 (1.003-1.030) 02/18/21 Unknown Urine Protein 100 mg/dl mg/dL (Negative) 02/18/21 Unknown Urine Glucose (UA) Neg mg/dL (Negative) 02/18/21 Unknown Urine Ketones Neg mg/dL (Negative) 02/18/21 Unknown Urine Blood Neg (Negative) 02/18/21 Unknown Urine Nitrite Neg (Negative) 02/18/21 Unknown Urine Bilirubin Neg (Negative) 02/18/21 Unknown Urine Urobilinogen < 2.0 mg/dL (<2.0) 02/18/21 Unknown Ur Leukocyte Esterase Neg (Negative) 02/18/21 Unknown Urine WBC (Auto) 7.0 /HPF (0.0-6.0) H 02/18/21 Unknown Urine RBC (Auto) 4.0 /HPF (0.0-6.0) 02/18/21 Unknown U Epithel Cells (Auto) 3.0 /HPF (0-13.0) 02/18/21 Unknown Urine Mucus 2+ /HPF 02/18/21 Unknown Urine Creatinine 247.7 mg/dL (0.1-20.0) H 03/06/21 09:00 Urine Sodium 25 mmol/L 03/06/21 09:00 Coronavirus (PCR) Positive (Negative) A 02/18/21 Unknown Microbiology: Microbiology 03/05/21 Unknown Tracheal Aspirate Sputum Culture - Final Head/IV: Voiding Method Indwelling Catheter Active Medications - Current Medications Current Medications: Generic Name Dose Route Start Last Admin Trade Name Freq PRN Reason Stop Dose Admin Acetaminophen 650 mg 02/17/21 23:58 03/02/21 09:45 Acetaminophen 325 Mg Tab PO 650 mg Q4H PRN Administration Pain MILD(1-3)/Fever >100.5/BROWN Dextrose 50 ml 02/27/21 11:30 Dextrose 50% In Water (25gm) 50 Ml Syringe IV Q30MIN PRN Hypoglycemia Protocol Enoxaparin Sodium 90 mg 03/07/21 10:00 03/08/21 10:34 Enoxaparin 100 Mg/1 Ml Inj 1 mg/kg (90 mg) 90 mg SUB-Q Administration Q24HR DEISY Protocol Famotidine 10 mg 03/06/21 22:00 03/08/21 10:34 Famotidine 20 Mg/2 Ml Inj IV 10 mg BID DEISY Administration Fentanyl 50 mcg 03/05/21 09:38 Fentanyl 100 Mcg/2 Ml Inj IV Q10MIN PRN ANALGESIA Gabapentin 400 mg 02/19/21 04:00 03/08/21 10:34 Gabapentin 400 Mg Cap PO 400 mg BID DEISY Administration Hydrophilic Ointment 1 applic 03/05/21 09:39 Lip Therapy Vaseline TP Q2HR PRN Dry Lips Propofol 1,000 mg in 100 mls @ 2.585 mls/hr 03/05/21 10:00 03/08/21 10:35 Diprivan 10 Mg/Ml IV 20 mcg/kg/min TITR DEISY 10.342 mls/hr Administration Protocol 5 MCG/KG/MIN Fentanyl Citrate 2,000 mcg in 100 mls @ 4.309 mls/hr 03/05/21 10:00 03/08/21 03:32 Fentanyl Drip Premix IV 2 mcg/kg/hr TITR DEISY 8.618 mls/hr Administration Protocol 1 MCG/KG/HR Midazolam HCl 100 mg/ Sodium 100 mls @ 1 mls/hr 03/05/21 11:00 03/07/21 21:21 Chloride IV 3 mg/hr TITR DEISY 3 mls/hr Administration Protocol 1 MG/HR NORepinephrine/NS 8 MG-250 ML 8 mg in 250 mls @ 3.75 mls/hr 03/05/21 10:15 03/08/21 10:14 Norepinephrine/Ns 8 Mg-250 Ml (Double Conc) IV 4 mcg/min TITRATE DEISY 7.5 mls/hr Titration Protocol 2 MCG/MIN Dexmedetomidine HCl 400 mcg/ 104 mls @ 4.482 mls/hr 03/05/21 14:00 Sodium Chloride IV TITRATE DEISY Protocol 0.2 MCG/KG/HR Vasopressin 20 unit/ Sodium 101 mls @ 9.09 mls/hr 03/06/21 06:00 03/08/21 10:30 Chloride IV 0 units/min TITR DEISY 0 mls/hr Titration Protocol 0.03 UNITS/MIN Insulin Glargine 10 units 03/02/21 22:00 03/07/21 21:35 Insulin Glargine 100 Units/Ml SUB-Q 10 units QHS DEISY Administration Insulin Human Lispro 0 unit 03/05/21 18:00 03/08/21 06:13 Insulin Lispro 100 Unit/Ml SUB-Q Not Given Q6HR [facility] Protocol Midazolam HCl 2 mg 03/05/21 10:11 03/05/21 10:53 Midazolam 2 Mg/2 Ml Inj IV 2 mg Q10MIN PRN Administration Sedation Multi-Ingred Cream/Lotion/Oil/Oint 1 applic 03/05/21 09:39 Mineral Oil/Petrolatum, White Ophth Oint 3.5 Gm OU Q4HR PRN Dry Eye(s) Ondansetron HCl 4 mg 02/17/21 23:58 Ondansetron 4 Mg/2 Ml Inj IV Q8H PRN Nausea And Vomiting Senna/Docusate Sodium 1 tab 03/05/21 10:00 03/08/21 10:33 Sennosides/Docusate Sodium 8.6/50 Mg Tab FEEDTUBE 1 tab BID DEISY Administration Sertraline HCl 50 mg 02/19/21 10:00 03/08/21 10:34 Sertraline 50 Mg Tab PO 50 mg QDAY DEISY Administration Sodium Chloride 10 ml 02/18/21 10:00 03/08/21 10:33 Sodium Chloride 0.9% 10 Ml Flush Syringe IV 10 ml BID DEISY Administration Sodium Chloride 10 ml 02/17/21 23:58 Sodium Chloride 0.9% 10 Ml Flush Syringe IV PRN PRN LINE FLUSH Nutrition/Malnutrition Assess - Dietary Evaluation Nutrition/Malnutrition Findings: Nutrition Notes Start: 02/25/21 16:10 Freq: Status: Active Protocol: Document 03/05/21 16:12 ALEC (Rec: 03/05/21 16:35 ALEC [id number]) Nutrition Notes Need for Assessment generated from: MD Order Initial or Follow up Brief Note Current Diet TF-Glucerna 1.2 Dagoberto @ 48 ml/hr (since B 03/06). Height 5 ft 6 in Weight 86.183 kg Dexter Body Weight (kg) 59.09 BMI 30.7 Weight change and time frame No body weight change reported . Weight Status Obese Subjective/Other Information RD consult for write/manage TF . Pt is now sedated/intubated. TF ordered. F/U to check for tolerance. Percent of energy/protein needs met: Prescribed Glucerna 1.2 Dagoberto @ 48 ml/hr provides for energy/ protein needs (1,390 Kcal/70 g ) during LOS, 100% Kcal; 74% AA. Current % PO Other Minimum of two criteria No #2 Nutrition Diagnosis Inadequate oral intake Etiology Pt on mechanical ventilation. As Evidenced by Signs and Symptoms Pt on NPO. Is patient on ventilator? Yes Is Patient Ambulatory and/or Out of Bed No REE-([facility]-confined to bed) 1737.120 Calculation Used for Recommendations 70-80% energy needs Additional Notes Energy: 8239-1336 kcal/day Protein: 1.3 g/kg adjBW: 94 g/ day Fluids: 1 ml/kcal, or as per MD. Nutrition Intervention Change Diet Order: d/c Nutrition Support: Start Glucerna 1.2 Dagoberto @ 48 ml /hr. Flush: 80 ml water Q 4 hr, or as per MD. Kcal 1,390 Protein (gm) 70 Carbohydrates (gm) 133 Fat (gm) 70 Fluid (mL) 933 Fiber (gm) 19 % RDI: 100% Kcal; 74% AA. Add Supplement/Snack (indicate name/kcal d/c /protein ) Goal #1 Provide at least 75% of energy /protein needs through Enteral Feeding during LOS. Follow-Up By: 03/08/21 Additional Comments Continue monitoring TF tolerance and BM.
[2021-03-08] MEDS: INSULIN GLARGINE 100 UNITS/ML SUB-Q SCH (22:18)
[2021-03-09] MEDS: INSULIN LISPRO 100 UNIT/ML SUB-Q SCH ×5 (00:56→23:43)
[2021-03-09] MEDS: MIDAZOLAM 100 MG in SODIUM CHLORIDE 0.9% 80 ML IV SCH (02:55)
[2021-03-09] MEDS: fentaNYL DRIP Premix 2,000 MCG/100 ML BAG IV SCH ×3 (02:55→19:16)
[2021-03-09 04:50] LABS: ABG Base Excess 2.4 mmol/L (-2.0-3.0); ABG HCO3 30.5 mmol/L (20.0-26.0); ABG Methemoglobin 0.7 % (0.0-1.5); ABG Oxygen Saturation 95.9 % (95.0-99.0); ABG PCO2 69.5 mm Hg; ABG PH 7.26 pH Units (7.350-7.450); ABG PO2 85.9 mm Hg (80.0-90.0)
[2021-03-09 05:57] LABS: Hematocrit 29.6 % (30.3-42.9); Hemoglobin 9.4 gm/dl (10.1-14.3); Mean Corpuscular HGB Conc 32 % (30-34); Mean Corpuscular Volume 92 fl (79-97); Platelet Count 234 K/mm3 (140-440); Red Blood Count 3.21 M/mm3 (3.65-5.03); Red Cell Distribution Width 15.2 % (13.2-15.2)
[2021-03-09 06:11] LABS: Calcium 8.5 mg/dL (8.4-10.2)
[2021-03-09] MEDS ORDERED: SODIUM CHLORIDE 0.9% 500 ML 500 ML IV ONE (09:00)
--- NOTE | 2021-03-09 11:04 | Progress Note ---
Assessment and Plan Assessment and plan: This is a 61-year-old female with past medical history of HTN, DM, and DVT on Eliquis at home admitted for acute hypoxic Respiratory failure 2/2 COVID pneumonia now on ventilatory support. Hospital Course to Date: 02/19/2020 Patient on 50% Ventimask Covid positive Continue steroids May DC antibiotics Respiratory assessment and treatment 02/19: Patient still hypoxic, encourage prone positioning, Pulmonary and ID consult. Will obtain CTA chest to evaluate for PE. Continue steroid therapy and oxygen therapy wean as tolerated. Continuous pulse oximeter. Plan discussed with the patient. 02/20: Patient seen and examined, remains on NRBM. awaiting CT CHEST WITH ANGIO Ordered yesterday. Encourage proning the patient says she was not proned yesterday discussed with nursing staff. Continue steroid therapy and remdesivir. Patient was seen by ID and as documented by ID"She is a candidate for Actemra based on CRp and O2 requirements. unfortunately we have not been getting pr ocalcitonin results. -ordered Actemra once (afebrile, white count only mildly elevated in the setting of steroids)" Discussed plan of care with the nurse. Also called to updated the patients sister listed as NOK but got voice mail 02/21: Continue steroids, remdesivir, patient received 1 dose of Actemra but unable to get the second dose due to availability. CTA showed dense consolidation but no effusion and no pulmonary embolism patient does have a lower extremity DVT. Eliquis continues at full dose of 5 mg twice daily we will continue to monitor closely. Prognosis is guarded counseling for compliance for 15 minutes. 02/22: Patient clinically not improving much of switch the patient to Lovenox. Prognosis remains guarded. Continue anticoagulation due to DVT still suspicious of pulmonary embolism as a result we will obtain echocardiogram and vascular consult per pulmonary request which I agree with. I will also transfer the patient to stepdown unit for closer monitoring. 02/23: Vascular input noted agree the patient has subsegmental bibasilar pulmonary embolism but not enough to warrant intervention. Does not feel that this is contributing majority to her hypoxia. Nevertheless we will switch patient from Eliquis to Lovenox. Continue current management with remdesivir 02/24: Patient seen and examined, remains on anticoagulation, continue remedsivir and steroids. prone as tolerated, will give additional lasix today. Guarded prognosis. 02/25 A&O x 3, C/O mild cough with mucoid expectorant. Denies CP or shortness of breath. Remains on HFNC. pulmonary note and lab results reviewed 02/26: AOX3, proning on encounter. Encouraged continued movement while in bed and with assistance of care staff. Remains on HFNC. Last day of decadron today. 02/27: Patient encouraged to continue proning and remain active. Discussed with PT to come work with patient to mobilize. Will d/w CM for correction placement solution. 02/28: Patient stated she would like to be a full code. Working with CM for LTAC placement. 03/01: Awaiting LTAC placement. Remains full code. Spoke with daughter Meghna who was updated on patient's case. 03/02: Sats in low 80s on hi lfow. Blood gas shows pao2 = 35.9. will start bipap, d/w IMCU RN who will notify RT. repeat abg in 1 hr. Poor prognosis. 03/03; Sats in low 90's on bipap. Repeat abg this AM demosntrates marginal improvement in PaO2. [facility] d/w daughter, patient and her daughter would like intubation should she continue to deteriorate. Prognosis remains poor. 03/04: de-escalated to HFNC 40/100 + venti. Will continue with bipap prn. Continue steroids. Dispo is still LTAC, placement is pending. 03/05: Resipratory distress this morning. Sats 69-70%. subsequently intubated. Now icu level of care. Family wants continue aggressive measures. Will follow [facility] recs. 03/06: Patient with ISH this am probably due to hypotension vs diuretic use, fluid bolus challenge this am. Urine lytes ordered. FWF added for hypernatremia. 03/07: Patient responded to fluid challenge, renal function improved, UOP better. Weaning down pressors, additional IVF bolus today, plan to wean down on pressors requirement. ABG improved today, wean down Fio2 as tolerated. Okay to start trickle feeds. 03/08: Renal function is back to baseline. Going down on pressor requirements, only on low dose Vaso and levophed today. Continue to wean pressors as tolerated. D/W CCm continue to wean Fio2 as tolerated, keep patient a RASS goal of -4 for now. Advance TF as tolerated per order. 03/09: Remains on the vent. Low SPO2 overnight, vent setting was increased. Off pressors this am. IV lasix per CCM, repeat CXR in the am Assessment and Plan #Acute respiratory failure with hypoxia 2/2 COVID Pneumonia #ARSD - Intubated on 03/05 - Vent setting:CMV-85%,20,30,350 - AM ABG noted - CCM consulted, appreciate recommendations - VAP bundle addressed - Aspiration precaution HOB above 30 - Sedation for RASS goal 0f -4 - Daily ABG and CXR - Continue SPO2 monitoring for SPO2 goal above 92% #Sepsis #Leukocytosis #Multifocal pneumonia #COVID Pneumonia - Now on pressors, Levo and Vaso - Titrate prerssors for MAP goal above 65 - Patient afebrile, with leukocytosis - Blood culture NGTD, sputum culture pending - Patient completed steroids course - Hold off on IV ABx and IV steroids for now - Continue to F/U on B.cult - Daily CBC monitor #Acute Kidney Injury(ISH) most likely ATN #Hypernatremia - Probably due to hypotension vs diuretic use - Patient was on IV Lasix - Strict intake and output - Avoid nephrotoxic medications; Renally dose medications - Head in place - Monitor and replace electrolytes as needed - Trend BMP #T2DM (type 2 diabetes mellitus) - SSI Q6hrs - Lantus Qhs - Avoid hypoglycemia #Acute RLE DVT - BLE doppler positive for DVT in right posteroir tibial vein - CTA chest negative PE - Continue AC- Lovenox SubQ The high probability of a clinically significant, sudden or life threatening d eterioration of the [multiple] system(s) required my full and direct attention, intervention and personal management. The aggregate critical care time was [60] minutes. This time is in addition to time spent performing reported procedures but includes the following: [X] Data Review and interpretation [X] Patient assessment and monitoring of vital signs [X] Documentation [X] Medication orders and management Disposition Plan: ICU Total Time Spent with Patient (Minutes): 60 History Interval history: Patient seen and examined at the bedside. Intubated and sedated, RASS-4. Off pressors this am. Desated overnight, Fio2 was increased to 85% Hospitalist Physical - Constitutional Vitals: Temp Pulse Resp BP Pulse Ox 99.4 F 99 H 27 H 97/48 91 03/09/21 08:00 03/09/21 08:25 03/09/21 06:30 03/09/21 08:25 03/09/21 08:25 General appearance: Present: no acute distress, well-nourished, other (Intubated and Sedated) - EENT Eyes: Present: PERRL - Respiratory Respiratory effort: normal Respiratory: bilateral: rhonchi - Cardiovascular Rhythm: regular Heart Sounds: Present: S1 & S2 - Extremities Extremities: no ischemia, pulses intact, pulses symmetrical Extremity abnormal: edema - Peripheral Assessment Generalized Edema Type: Non-pitting Edema Degree: 1+ Capillary Refill: < 3 seconds Skin Temperature: Warm Peripheral Pulses: within normal limits - Abdominal General gastrointestinal: soft, non-distended, hypoactive bowel sounds - Integumentary Integumentary: Present: warm, dry - Psychiatric Psychiatric: other (Intubated and Sedated) - Neurologic Neurologic: other (Intubated and Sedated) - Allied Health Allied health notes reviewed: nursing Results - Labs CBC & Chem 7: 03/09/21 04:00 03/09/21 04:00 Labs: Laboratory Last Values WBC 11.4 K/mm3 (4.5-11.0) H 03/09/21 04:00 RBC 3.21 M/mm3 (3.65-5.03) L 03/09/21 04:00 Hgb 9.4 gm/dl (10.1-14.3) L 03/09/21 04:00 Hct 29.6 % (30.3-42.9) L 03/09/21 04:00 MCV 92 fl (79-97) 03/09/21 04:00 MCH 29 pg (28-32) 03/09/21 04:00 MCHC 32 % (30-34) 03/09/21 04:00 RDW 15.2 % (13.2-15.2) 03/09/21 04:00 Plt Count 234 K/mm3 (140-440) 03/09/21 04:00 Add Manual Diff Complete 03/05/21 10:10 Total Counted 100 03/05/21 10:10 Seg Neuts % (Manual) 77.0 % (40.0-70.0) H 03/05/21 10:10 Band Neutrophils % 3.0 % 03/05/21 10:10 Lymphocytes % (Manual) 12.0 % (13.4-35.0) L 03/05/21 10:10 Reactive Lymphs % (Man) 2.0 % 03/05/21 10:10 Monocytes % (Manual) 5.0 % (0.0-7.3) 03/05/21 10:10 Eosinophils % (Manual) 1.0 % (0.0-4.3) 03/05/21 10:10 Basophils % (Manual) 0 % (0.0-1.8) 03/05/21 10:10 Metamyelocytes % 0 % 03/05/21 10:10 Myelocytes % 0 % 03/05/21 10:10 Promyelocytes % 0 % 03/05/21 10:10 Blast Cells % 0 % 03/05/21 10:10 Nucleated RBC % Not Reportable 03/05/21 10:10 Seg Neutrophils # Man 13.7 K/mm3 (1.8-7.7) H 03/05/21 10:10 Band Neutrophils # 0.5 K/mm3 03/05/21 10:10 Lymphocytes # (Manual) 2.1 K/mm3 (1.2-5.4) 03/05/21 10:10 Abs React Lymphs (Man) 0.4 K/mm3 03/05/21 10:10 Monocytes # (Manual) 0.9 K/mm3 (0.0-0.8) H 03/05/21 10:10 Eosinophils # (Manual) 0.2 K/mm3 (0.0-0.4) 03/05/21 10:10 Basophils # (Manual) 0.0 K/mm3 (0.0-0.1) 03/05/21 10:10 Metamyelocytes # 0.0 K/mm3 03/05/21 10:10 Myelocytes # 0.0 K/mm3 03/05/21 10:10 Promyelocytes # 0.0 K/mm3 03/05/21 10:10 Blast Cells # 0.0 K/mm3 03/05/21 10:10 WBC Morphology Not Reportable 03/05/21 10:10 Hypersegmented Neuts Not Reportable 03/05/21 10:10 Hyposegmented Neuts Not Reportable 03/05/21 10:10 Hypogranular Neuts Not Reportable 03/05/21 10:10 Smudge Cells Not Reportable 03/05/21 10:10 Toxic Granulation Not Reportable 03/05/21 10:10 Toxic Vacuolation Not Reportable 03/05/21 10:10 Dohle Bodies Not Reportable 03/05/21 10:10 Pelger-Huet Anomaly Not Reportable 03/05/21 10:10 Cindy Rods Not Reportable 03/05/21 10:10 Platelet Estimate Consistent w auto 03/05/21 10:10 Clumped Platelets Not Reportable 03/05/21 10:10 Plt Clumps, EDTA Not Reportable 03/05/21 10:10 Large Platelets 1+ 03/05/21 10:10 Giant Platelets Not Reportable 03/05/21 10:10 Platelet Satelliting Not Reportable 03/05/21 10:10 Plt Morphology Comment Not Reportable 03/05/21 10:10 RBC Morphology Not Reportable 03/05/21 10:10 Dimorphic RBCs Not Reportable 03/05/21 10:10 Polychromasia Few 03/05/21 10:10 Hypochromasia Not Reportable 03/05/21 10:10 Poikilocytosis Not Reportable 03/05/21 10:10 Anisocytosis 1+ 03/05/21 10:10 Microcytosis Not Reportable 03/05/21 10:10 Macrocytosis Not Reportable 03/05/21 10:10 Spherocytes Not Reportable 03/05/21 10:10 Pappenheimer Bodies Not Reportable 03/05/21 10:10 Sickle Cells Not Reportable 03/05/21 10:10 Target Cells Not Reportable 03/05/21 10:10 Tear Drop Cells Not Reportable 03/05/21 10:10 Ovalocytes Not Reportable 03/05/21 10:10 Helmet Cells Not Reportable 03/05/21 10:10 Sumner-Pabellones Bodies Not Reportable 03/05/21 10:10 Bunch Rings Not Reportable 03/05/21 10:10 Alicia Cells Not Reportable 03/05/21 10:10 Bite Cells Not Reportable 03/05/21 10:10 Crenated Cell Not Reportable 03/05/21 10:10 Elliptocytes Not Reportable 03/05/21 10:10 Acanthocytes (Spur) Not Reportable 03/05/21 10:10 Rouleaux Not Reportable 03/05/21 10:10 Hemoglobin C Crystals Not Reportable 03/05/21 10:10 Schistocytes Not Reportable 03/05/21 10:10 Malaria parasites Not Reportable 03/05/21 10:10 Pedro Pablo Bodies Not Reportable 03/05/21 10:10 Hem Pathologist Commnt No 03/05/21 10:10 PT 13.9 Sec. (12.2-14.9) 02/17/21 14:34 INR 0.96 (0.87-1.13) 02/17/21 14:34 APTT 26.4 Sec. (24.2-36.6) 02/17/21 14:34 D-Dimer 3469.99 ng/mlDDU (0-234) H 03/01/21 05:12 ABG pH 7.260 pH Units (7.350-7.450) L 03/09/21 04:11 ABG pCO2 69.5 mm Hg 03/09/21 04:11 ABG pO2 85.9 mm Hg (80.0-90.0) 03/09/21 04:11 ABG HCO3 30.5 mmol/L (20.0-26.0) H 03/09/21 04:11 ABG O2 Saturation 95.9 % (95.0-99.0) 03/09/21 04:11 ABG O2 Content 12.6 (0.0-44) 03/09/21 04:11 ABG Base Excess 2.4 mmol/L (-2.0-3.0) 03/09/21 04:11 ABG Hemoglobin 9.4 gm/dl (12.0-16.0) L 03/09/21 04:11 ABG Carboxyhemoglobin 1.3 % (0.0-5.0) 03/09/21 04:11 ABG Methemoglobin 0.7 % (0.0-1.5) 03/09/21 04:11 Oxyhemoglobin 93.9 % (95.0-99.0) L 03/09/21 04:11 FiO2 85 % 03/09/21 04:11 Sodium 144 mmol/L (137-145) 03/09/21 04:00 Potassium 4.7 mmol/L (3.6-5.0) 03/09/21 04:00 Chloride 105.8 mmol/L (98-107) 03/09/21 04:00 Carbon Dioxide 29 mmol/L (22-30) 03/09/21 04:00 Anion Gap 14 mmol/L 03/09/21 04:00 BUN 74 mg/dL (7-17) H 03/09/21 04:00 Creatinine 1.3 mg/dL (0.6-1.2) H 03/09/21 04:00 Estimated GFR 50 ml/min 03/09/21 04:00 BUN/Creatinine Ratio 57 % 03/09/21 04:00 Glucose 117 mg/dL (65-100) H 03/09/21 04:00 POC Glucose 105 mg/dL (70-105) 03/08/21 23:46 Lactic Acid 1.60 mmol/L (0.7-2.0) 02/17/21 18:39 Calcium 8.5 mg/dL (8.4-10.2) 03/09/21 04:00 Phosphorus 10.70 mg/dL (2.5-4.5) H 03/06/21 06:13 Magnesium 2.40 mg/dL (1.7-2.3) H 03/06/21 06:13 Ferritin 1526.0 ng/mL (10.0-200.0) H 03/01/21 05:12 Total Bilirubin 0.30 mg/dL (0.1-1.2) 03/05/21 10:10 Direct Bilirubin < 0.2 mg/dL (0-0.2) 02/17/21 14:34 Indirect Bilirubin 0.1 mg/dL 02/17/21 14:34 AST 38 units/L (5-40) 03/05/21 10:10 ALT 44 units/L (7-56) 03/05/21 10:10 Alkaline Phosphatase 78 units/L (35-129) 03/05/21 10:10 Lactate Dehydrogenase 385 units/L (91-180) H 03/01/21 05:12 C-Reactive Protein 11.20 mg/dL (0.00-1.30) H 03/01/21 05:12 NT-Pro-B Natriuret Pep 86.77 pg/mL (0-900) 02/20/21 16:34 Total Protein 7.7 g/dL (6.3-8.2) 03/05/21 10:10 Albumin 3.1 g/dL (3.9-5) L 03/05/21 10:10 Albumin/Globulin Ratio 0.7 % 03/05/21 10:10 Triglycerides 171 mg/dL (2-149) H 03/07/21 04:05 Procalcitonin 0.11 ng/mL (<0.15) 02/19/21 07:32 Urine Color Cassandra (Yellow) 02/18/21 Unknown Urine Turbidity Cloudy (Clear) 02/18/21 Unknown Urine pH 5.0 (5.0-7.0) 02/18/21 Unknown Ur Specific Mcdaniel 1.027 (1.003-1.030) 02/18/21 Unknown Urine Protein 100 mg/dl mg/dL (Negative) 02/18/21 Unknown Urine Glucose (UA) Neg mg/dL (Negative) 02/18/21 Unknown Urine Ketones Neg mg/dL (Negative) 02/18/21 Unknown Urine Blood Neg (Negative) 02/18/21 Unknown Urine Nitrite Neg (Negative) 02/18/21 Unknown Urine Bilirubin Neg (Negative) 02/18/21 Unknown Urine Urobilinogen < 2.0 mg/dL (<2.0) 02/18/21 Unknown Ur Leukocyte Esterase Neg (Negative) 02/18/21 Unknown Urine WBC (Auto) 7.0 /HPF (0.0-6.0) H 02/18/21 Unknown Urine RBC (Auto) 4.0 /HPF (0.0-6.0) 02/18/21 Unknown U Epithel Cells (Auto) 3.0 /HPF (0-13.0) 02/18/21 Unknown Urine Mucus 2+ /HPF 02/18/21 Unknown Urine Creatinine 247.7 mg/dL (0.1-20.0) H 03/06/21 09:00 Urine Sodium 25 mmol/L 03/06/21 09:00 Coronavirus (PCR) Positive (Negative) A 02/18/21 Unknown Head/IV: Voiding Method Indwelling Catheter Active Medications - Current Medications Current Medications: Generic Name Dose Route Start Last Admin Trade Name Freq PRN Reason Stop Dose Admin Acetaminophen 650 mg 02/17/21 23:58 03/02/21 09:45 Acetaminophen 325 Mg Tab PO 650 mg Q4H PRN Administration Pain MILD(1-3)/Fever >100.5/BROWN Dextrose 50 ml 02/27/21 11:30 Dextrose 50% In Water (25gm) 50 Ml Syringe IV Q30MIN PRN Hypoglycemia Protocol Enoxaparin Sodium 90 mg 03/08/21 22:00 03/08/21 22:16 Enoxaparin 100 Mg/1 Ml Inj 1 mg/kg (90 mg) 90 mg SUB-Q Administration Q12HR [facility] Protocol Famotidine 20 mg 03/08/21 22:00 03/08/21 22:17 Famotidine 20 Mg/2 Ml Inj IV 20 mg BID DEISY Administration Fentanyl 50 mcg 03/05/21 09:38 Fentanyl 100 Mcg/2 Ml Inj IV Q10MIN PRN ANALGESIA Gabapentin 400 mg 02/19/21 04:00 03/08/21 22:16 Gabapentin 400 Mg Cap PO 400 mg BID DEISY Administration Hydrophilic Ointment 1 applic 03/05/21 09:39 Lip Therapy Vaseline TP Q2HR PRN Dry Lips Propofol 1,000 mg in 100 mls @ 2.585 mls/hr 03/05/21 10:00 03/08/21 18:22 Diprivan 10 Mg/Ml IV 20 mcg/kg/min TITR DEISY 10.342 mls/hr Administration Protocol 5 MCG/KG/MIN Fentanyl Citrate 2,000 mcg in 100 mls @ 4.309 mls/hr 03/05/21 10:00 03/09/21 02:55 Fentanyl Drip Premix IV 4 mcg/kg/hr TITR DEISY 17.237 mls/hr Administration Protocol 1 MCG/KG/HR Midazolam HCl 100 mg/ Sodium 100 mls @ 1 mls/hr 03/05/21 11:00 03/09/21 02:55 Chloride IV 3 mg/hr TITR DEISY 3 mls/hr Administration Protocol 1 MG/HR NORepinephrine/NS 8 MG-250 ML 8 mg in 250 mls @ 3.75 mls/hr 03/05/21 10:15 03/08/21 12:02 Norepinephrine/Ns 8 Mg-250 Ml (Double Conc) IV 0 mcg/min TITRATE DEISY 0 mls/hr Titration Protocol 2 MCG/MIN Dexmedetomidine HCl 400 mcg/ 104 mls @ 4.482 mls/hr 03/05/21 14:00 Sodium Chloride IV TITRATE DEISY Protocol 0.2 MCG/KG/HR Vasopressin 20 unit/ Sodium 101 mls @ 9.09 mls/hr 03/06/21 06:00 03/08/21 10:30 Chloride IV 0 units/min TITR DEISY 0 mls/hr Titration Protocol 0.03 UNITS/MIN Insulin Glargine 10 units 03/02/21 22:00 03/08/21 22:18 Insulin Glargine 100 Units/Ml SUB-Q 10 units QHS DEISY Administration Insulin Human Lispro 0 unit 03/05/21 18:00 03/09/21 05:40 Insulin Lispro 100 Unit/Ml SUB-Q Not Given Q6HR [facility] Protocol Midazolam HCl 2 mg 03/05/21 10:11 03/05/21 10:53 Midazolam 2 Mg/2 Ml Inj IV 2 mg Q10MIN PRN Administration Sedation Multi-Ingred Cream/Lotion/Oil/Oint 1 applic 03/05/21 09:39 Mineral Oil/Petrolatum, White Ophth Oint 3.5 Gm OU Q4HR PRN Dry Eye(s) Ondansetron HCl 4 mg 02/17/21 23:58 Ondansetron 4 Mg/2 Ml Inj IV Q8H PRN Nausea And Vomiting Senna/Docusate Sodium 1 tab 03/05/21 10:00 03/08/21 22:17 Sennosides/Docusate Sodium 8.6/50 Mg Tab FEEDTUBE 1 tab BID DEISY Administration Sertraline HCl 50 mg 02/19/21 10:00 03/08/21 10:34 Sertraline 50 Mg Tab PO 50 mg QDAY DEISY Administration Sodium Chloride 10 ml 02/18/21 10:00 03/08/21 22:17 Sodium Chloride 0.9% 10 Ml Flush Syringe IV 10 ml BID DEISY Administration Sodium Chloride 10 ml 02/17/21 23:58 Sodium Chloride 0.9% 10 Ml Flush Syringe IV PRN PRN LINE FLUSH Nutrition/Malnutrition Assess - Dietary Evaluation Nutrition/Malnutrition Findings: Nutrition Notes Start: 02/25/21 16:10 Freq: Status: Active Protocol: Document 03/08/21 15:59 NHALL (Rec: 03/08/21 16:12 NHALL [email or web address]) Nutrition Notes Initial or Follow up Reassessment Current Diagnosis Diabetes,Hypertension, Respiratory Failure Other Pertinent Diagnosis COVID-19 pneu, SIRS Current Diet TF-Glucerna 1.2 at 48 ml/hr Labs/Tests BUN 69 Pertinent Medications Propofol at 10.342ml/hr ( provides 273 kcal) Height 5 ft 6 in Weight 86.183 kg [place] Body Weight (kg) 59.09 BMI 30.7 Weight Status Obese Subjective/Other Information Spoke with RN via phone (16:02 ). Pt was requiring high pressor support, so TF was not started. Pt not requiring pressor support at this time, so TF started and currently being tolerated at 38ml/hr. TF rate rate to be advanced to goal tonight. No BM reported , but pt receiving senokot. Pt remains on vent support. Burn Absent Trauma Absent Minimum of two criteria No #2 Nutrition Diagnosis Inadequate oral intake Diagnosis Progress(for reassessment Continues documentation) #1 Nutrition Diagnosis Inadequate protein intake As Evidenced by Signs and Symptoms current TF rate provides <75% pro needs Diagnosis Progress(for reassessment Continues documentation) Is patient on ventilator? Yes Is Patient Ambulatory and/or Out of Bed No REE-([facility]-confined to bed) 1737.120 Calculation Used for Recommendations 70-80% energy needs Additional Notes Energy: 5626-7183 kcal/day Protein: 1.3 g/kg adjBW: 94 g/ day Fluids: 1 ml/kcal, or as per MD. Nutrition Intervention Nutrition Support: Increase Glucerna 1.2 rate to 50ml/hr. Provide 80ml water flush q4h. Kcal 1,440 Protein (gm) 72 Carbohydrates (gm) 137 Fat (gm) 72 Fluid (mL) 966 Fiber (gm) 19 Goal #1 TF tolerance Goal #2 TF to meet at least 75% energy and pro needs Follow-Up By: 03/11/21 Additional Comments F/U: TF goal rate/tolerance, vent status, BM
[2021-03-09] MEDS: ENOXAPARIN 100 MG/1 ML INJ SUB-Q SCH ×2 (12:43→21:17)
[2021-03-09] MEDS: FAMOTIDINE 20 MG/2 ML INJ IV SCH ×2 (12:44→21:18)
[2021-03-09] MEDS: SERTRALINE 50 MG TAB PO SCH (12:44)
[2021-03-09] MEDS: SENNOSIDES/DOCUSATE SODIUM 8.6/50 MG TAB FEEDTUBE SCH ×2 (12:44→21:18)
[2021-03-09] MEDS: GABAPENTIN 400 MG CAP PO SCH ×2 (12:44→21:17)
--- NOTE | 2021-03-09 14:56 | Progress Note ---
Assessment and Plan 61 y/o female with acute respiratory failure secondary to COVID 19 pneumonia. 03/09/2021: Patient have worsening respiratory status FiO2 now 85%. Increasing hypercarbia with respiratory respiratory acidosis noted. Hypercarbia may be due to the high PEEP however given the high FiO2 requirement we will continue with current PEEP levels. Patient have positive fluid balance over 3 L in last 3 days. We will give a small dose of Lasix. 03/08/21: Continue to monitor urine output and function. Consider more fluid today. Maintain current level of sedation. Wean FiO2 for sats >88% and or PaO2 >55. Prognosis still remains guarded. Please do not wean PEEP until FiO2 as at 45-50% 03/07/21: Continue supportive measures. Monitor urine output and function. Labs are better today and she did put out more urine with fluid bolus so will give again today. Overall prognosis remains extremely guarded. 03/06/21: Overall clinical state is worsening. Now with difficulty ventilation and with improved ventilation comes a compromise in oxygenation. Newest concern is renal function which is worsening. If patient requires dialysis then mortality increases and prognosis worsens. If requires HD, prognosis is very very guarded to poor. 03/05/21: Added versed drip to fent and Diprovan to keep RASS at -4. Will also order precedex in the event it is needed. Repeat ABG somewhat improved but increased RR. Must watch Peak Pressures. attempting to do low lung volume protective ventilator strategy. Patient has actually been off steroids for some time. Will not restart as of yet. Unable to prone. Guarded prognosis. This discussion was had over the weekend with the daughter when I thought we would have to intubate then. Explained that vent is not therapy but only something to give her lungs time to rest, if possible to see if they can recover. Prognosis is very guarded to poor. 03/04/21: Continue supportive care between HFNC and bipap therapy. Steroids. Positive reinforcement. 03/03/21: Long discussion at bedside with patient. Today she stated that she did not want to be intubated. I attempted to call her daughter while I was in the room with the patient but no answer. She will remain full code as she has said this in the past and then revoked after speaking with the daughter ( which is why i called her again this morning). Continue bipap and monitor. Guarded prognosis. 03/02/21: Prone if able. Continue steroids. Negative fluid balance if possible. Prognosis remains very guarded 02/28/21: Prone. Steroids. Net negative fluid balance if possible. Guarded prognosis. 02/27/21: Full code status. Prone as much as possible during the day and sleep prone at night. Patient may require intubation ultimately. Guarded prognosis. 02/26/21: Prone if possible. Continue anticoagulation for DVT. Steroids. Net negative fluid balance. 02/25/21: Long discussion at bedside with patient, whom per her, she has discussed this with her daughter. She does no want an endotracheal tube. She does not want chest compression and she does not want shocks. I did not ask a bout vasopressors. The patient is awake and alert and oriented. This needs to be addressed by primary team as well an if confirmed, I have no problem with cosigning AND order. Continue supportive measures for now. Guarded to poor prognosis. 02/21/21: BNP normal. Still would attempt to achieve net negative fluid balance daily. Continue Remdesivir and steroids. Prone if patient willing. Follow up CTA results. Discussed with IMS, may change anticoagulation but awaiting official ready on CTA. Guareded prognosis. 02/20/21: Follow up CTA results. Will send BNP. Continue steroids and Remd esivir. Guarded prognosis. Prone if able, very pertinent to do this. 1. self proning as tolerated during the day and prone at night while sleeping 2. Steroids and Remdesivir 3. Daily net negative volume state 4. Consider checking BNP and echo to make sure no edema on this film 5. Agree with empiric anticoagulation given elevated D-Dimer Guarded prognosis. Will continue to follow. Critical care time 31-minute Subjective Date of service: 03/09/21 Principal diagnosis: COVID pneumonia Interval history: No significant change patient remains on mechanical ventilator. Remains on FiO2 of 85% and PEEP of 20. Blood gases show increased hypercarbia and more respiratory acidosis. Patient is in positive fluid balance of over a liter every day for the last 3 days. Objective Vital Signs - 12hr 03/09/21 03/09/21 03/09/21 03:00 03:15 03:30 Temperature Pulse Rate 94 H 94 H 93 H Pulse Rate [ From Monitor] Respiratory 30 H 30 H 30 H Rate Blood Pressure 87/45 85/47 87/47 O2 Sat by Pulse 94 94 93 Oximetry 03/09/21 03/09/21 03/09/21 03:45 04:00 04:15 Temperature 97.5 F L Pulse Rate 93 H 95 H 94 H Pulse Rate [ 78 From Monitor] Respiratory 30 H 30 H 31 H Rate Blood Pressure 87/47 86/50 86/47 O2 Sat by Pulse 93 91 92 Oximetry 03/09/21 03/09/21 03/09/21 04:30 04:37 04:45 Temperature Pulse Rate 94 H 94 H 94 H Pulse Rate [ From Monitor] Respiratory 30 H 29 H Rate Blood Pressure 89/48 89/48 87/50 O2 Sat by Pulse 91 92 91 Oximetry 03/09/21 03/09/21 03/09/21 05:00 05:15 05:30 Temperature Pulse Rate 94 H 93 H 93 H Pulse Rate [ From Monitor] Respiratory 27 H 30 H 30 H Rate Blood Pressure 92/48 88/44 89/47 O2 Sat by Pulse 92 92 Oximetry 03/09/21 03/09/21 03/09/21 05:45 06:00 06:15 Temperature Pulse Rate 93 H 92 H 91 H Pulse Rate [ From Monitor] Respiratory 30 H 28 H 30 H Rate Blood Pressure 86/48 84/47 83/42 O2 Sat by Pulse 90 83 L 88 Oximetry 03/09/21 03/09/21 03/09/21 06:30 08:00 08:25 Temperature 99.4 F Pulse Rate 92 H 99 H Pulse Rate [ From Monitor] Respiratory 27 H Rate Blood Pressure 84/45 97/48 O2 Sat by Pulse 90 91 Oximetry 03/09/21 12:00 Temperature 99.5 F Pulse Rate 95 H Pulse Rate [ From Monitor] Respiratory Rate Blood Pressure 94/47 O2 Sat by Pulse 90 Oximetry Constitutional: alert, other (on hiflo) ENT: oropharynx moist Neck: supple Ascultation: Bilateral: diminished breath sounds Cardiovascular: regular rate and rhythm Gastrointestinal: normoactive bowel sounds, soft, non-tender, non-distended Integumentary: normal Extremities: no cyanosis CBC and BMP: 03/09/21 04:00 03/09/21 04:00 ABG, PT/INR, D-dimer: ABG ABG pH 7.260 pH Units (7.350-7.450) L 03/09/21 04:11 ABG pCO2 69.5 mm Hg 03/09/21 04:11 ABG pO2 85.9 mm Hg (80.0-90.0) 03/09/21 04:11 ABG O2 Saturation 95.9 % (95.0-99.0) 03/09/21 04:11 PT/INR, D-dimer PT 13.9 Sec. (12.2-14.9) 02/17/21 14:34 INR 0.96 (0.87-1.13) 02/17/21 14:34 D-Dimer 3469.99 ng/mlDDU (0-234) H 03/01/21 05:12 Abnormal lab findings: Abnormal Labs 02/17/21 02/17/21 02/17/21 14:34 14:34 14:34 WBC 11.7 H RBC Hgb Hct 44.9 H RDW 15.6 H Plt Count Seg Neuts % (Manual) Lymphocytes % (Manual) 9.0 L Monocytes % (Manual) 12.0 H Seg Neutrophils # Man 8.2 H Lymphocytes # (Manual) 1.1 L Monocytes # (Manual) 1.4 H D-Dimer ABG pH ABG pO2 ABG HCO3 ABG O2 Saturation ABG Base Excess ABG Hemoglobin Oxyhemoglobin Sodium Potassium 3.5 L Chloride BUN 27 H Creatinine Glucose 150 H POC Glucose Lactic Acid 2.90 H* Calcium Phosphorus Magnesium Ferritin AST Lactate Dehydrogenase C-Reactive Protein NT-Pro-B Natriuret Pep Albumin Triglycerides Urine WBC (Auto) Urine Creatinine Coronavirus (PCR) 02/17/21 02/18/21 02/18/21 14:34 07:48 07:48 WBC 12.0 H RBC Hgb Hct RDW 15.4 H Plt Count Seg Neuts % (Manual) 76.0 H Lymphocytes % (Manual) Monocytes % (Manual) Seg Neutrophils # Man 9.1 H Lymphocytes # (Manual) Monocytes # (Manual) D-Dimer ABG pH ABG pO2 ABG HCO3 ABG O2 Saturation ABG Base Excess ABG Hemoglobin Oxyhemoglobin Sodium Potassium Chloride BUN 36 H Creatinine Glucose 133 H POC Glucose Lactic Acid Calcium Phosphorus Magnesium Ferritin AST 57 H Lactate Dehydrogenase C-Reactive Protein NT-Pro-B Natriuret Pep 1619 H Albumin 3.3 L Triglycerides Urine WBC (Auto) Urine Creatinine Coronavirus (PCR) 02/18/21 02/18/21 02/19/21 Unknown Unknown 07:32 WBC RBC Hgb Hct RDW Plt Count Seg Neuts % (Manual) Lymphocytes % (Manual) Monocytes % (Manual) Seg Neutrophils # Man Lymphocytes # (Manual) Monocytes # (Manual) D-Dimer ABG pH ABG pO2 ABG HCO3 ABG O2 Saturation ABG Base Excess ABG Hemoglobin Oxyhemoglobin Sodium 148 H D Potassium Chloride BUN 41 H Creatinine Glucose 123 H POC Glucose Lactic Acid Calcium Phosphorus Magnesium Ferritin AST 57 H Lactate Dehydrogenase C-Reactive Protein NT-Pro-B Natriuret Pep Albumin 3.7 L Triglycerides Urine WBC (Auto) 7.0 H Urine Creatinine Coronavirus (PCR) Positive A 02/19/21 02/19/21 02/20/21 07:32 08:43 05:00 WBC RBC Hgb Hct RDW Plt Count Seg Neuts % (Manual) Lymphocytes % (Manual) Monocytes % (Manual) Seg Neutrophils # Man Lymphocytes # (Manual) Monocytes # (Manual) D-Dimer > 20944 H ABG pH ABG pO2 ABG HCO3 ABG O2 Saturation ABG Base Excess ABG Hemoglobin Oxyhemoglobin Sodium 147 H Potassium Chloride 107.6 H BUN 36 H Creatinine Glucose POC Glucose Lactic Acid Calcium Phosphorus Magnesium Ferritin AST Lactate Dehydrogenase C-Reactive Protein 10.90 H NT-Pro-B Natriuret Pep Albumin 3.3 L Triglycerides Urine WBC (Auto) Urine Creatinine Coronavirus (PCR) 02/20/21 02/21/21 02/21/21 18:46 04:44 04:44 WBC 16.7 H RBC Hgb Hct RDW Plt Count Seg Neuts % (Manual) Lymphocytes % (Manual) Monocytes % (Manual) Seg Neutrophils # Man Lymphocytes # (Manual) Monocytes # (Manual) D-Dimer ABG pH 7.453 H ABG pO2 55.0 L ABG HCO3 26.6 H ABG O2 Saturation 88.3 L ABG Base Excess ABG Hemoglobin Oxyhemoglobin 86.8 L Sodium Potassium Chloride BUN 26 H Creatinine Glucose 111 H POC Glucose Lactic Acid Calcium Phosphorus Magnesium Ferritin AST Lactate Dehydrogenase C-Reactive Protein NT-Pro-B Natriuret Pep Albumin 3.4 L Triglycerides Urine WBC (Auto) Urine Creatinine Coronavirus (PCR) 02/22/21 02/23/21 02/23/21 04:47 09:05 09:05 WBC 19.3 H RBC 5.29 H Hgb 15.2 H Hct 47.7 H D RDW Plt Count Seg Neuts % (Manual) 82.0 H Lymphocytes % (Manual) 6.0 L Monocytes % (Manual) Seg Neutrophils # Man 15.8 H Lymphocytes # (Manual) Monocytes # (Manual) 1.0 H D-Dimer ABG pH ABG pO2 ABG HCO3 ABG O2 Saturation ABG Base Excess ABG Hemoglobin Oxyhemoglobin Sodium Potassium Chloride BUN 25 H 27 H Creatinine Glucose 125 H POC Glucose Lactic Acid Calcium Phosphorus Magnesium Ferritin AST Lactate Dehydrogenase C-Reactive Protein NT-Pro-B Natriuret Pep Albumin 3.3 L Triglycerides Urine WBC (Auto) Urine Creatinine Coronavirus (PCR) 02/23/21 02/23/21 02/24/21 11:33 16:24 04:50 WBC 14.8 H RBC Hgb Hct RDW Plt Count Seg Neuts % (Manual) Lymphocytes % (Manual) Monocytes % (Manual) Seg Neutrophils # Man Lymphocytes # (Manual) Monocytes # (Manual) D-Dimer ABG pH ABG pO2 ABG HCO3 ABG O2 Saturation ABG Base Excess ABG Hemoglobin Oxyhemoglobin Sodium Potassium Chloride BUN Creatinine Glucose POC Glucose 117 H 163 H Lactic Acid Calcium Phosphorus Magnesium Ferritin AST Lactate Dehydrogenase C-Reactive Protein NT-Pro-B Natriuret Pep Albumin Triglycerides Urine WBC (Auto) Urine Creatinine Coronavirus (PCR) 02/24/21 02/25/21 02/27/21 04:50 21:12 04:57 WBC 17.0 H RBC Hgb Hct 43.4 H RDW Plt Count Seg Neuts % (Manual) 84.0 H Lymphocytes % (Manual) 4.0 L Monocytes % (Manual) Seg Neutrophils # Man 14.3 H Lymphocytes # (Manual) 0.7 L Monocytes # (Manual) 0.9 H D-Dimer ABG pH ABG pO2 ABG HCO3 ABG O2 Saturation ABG Base Excess ABG Hemoglobin Oxyhemoglobin Sodium Potassium Chloride BUN 23 H Creatinine Glucose POC Glucose 175 H Lactic Acid Calcium Phosphorus Magnesium Ferritin AST Lactate Dehydrogenase C-Reactive Protein NT-Pro-B Natriuret Pep Albumin Triglycerides Urine WBC (Auto) Urine Creatinine Coronavirus (PCR) 02/27/21 02/27/21 02/27/21 04:57 04:57 04:57 WBC RBC Hgb Hct RDW Plt Count Seg Neuts % (Manual) Lymphocytes % (Manual) Monocytes % (Manual) Seg Neutrophils # Man Lymphocytes # (Manual) Monocytes # (Manual) D-Dimer 5013.37 H ABG pH ABG pO2 ABG HCO3 ABG O2 Saturation ABG Base Excess ABG Hemoglobin Oxyhemoglobin Sodium Potassium Chloride BUN 23 H Creatinine 0.5 L Glucose 113 H POC Glucose Lactic Acid Calcium Phosphorus Magnesium Ferritin 1272.0 H AST Lactate Dehydrogenase 438 H C-Reactive Protein 5.80 H NT-Pro-B Natriuret Pep Albumin Triglycerides Urine WBC (Auto) Urine Creatinine Coronavirus (PCR) 02/27/21 02/27/21 02/28/21 17:53 21:12 07:40 WBC RBC Hgb Hct RDW Plt Count Seg Neuts % (Manual) Lymphocytes % (Manual) Monocytes % (Manual) Seg Neutrophils # Man Lymphocytes # (Manual) Monocytes # (Manual) D-Dimer ABG pH ABG pO2 ABG HCO3 ABG O2 Saturation ABG Base Excess ABG Hemoglobin Oxyhemoglobin Sodium Potassium Chloride BUN Creatinine Glucose POC Glucose 159 H 112 H 123 H Lactic Acid Calcium Phosphorus Magnesium Ferritin AST Lactate Dehydrogenase C-Reactive Protein NT-Pro-B Natriuret Pep Albumin Triglycerides Urine WBC (Auto) Urine Creatinine Coronavirus (PCR) 02/28/21 02/28/21 02/28/21 11:42 16:20 22:26 WBC RBC Hgb Hct RDW Plt Count Seg Neuts % (Manual) Lymphocytes % (Manual) Monocytes % (Manual) Seg Neutrophils # Man Lymphocytes # (Manual) Monocytes # (Manual) D-Dimer ABG pH ABG pO2 ABG HCO3 ABG O2 Saturation ABG Base Excess ABG Hemoglobin Oxyhemoglobin Sodium Potassium Chloride BUN Creatinine Glucose POC Glucose 112 H 138 H 129 H Lactic Acid Calcium Phosphorus Magnesium Ferritin AST Lactate Dehydrogenase C-Reactive Protein NT-Pro-B Natriuret Pep Albumin Triglycerides Urine WBC (Auto) Urine Creatinine Coronavirus (PCR) 03/01/21 03/01/21 03/01/21 05:12 05:12 05:12 WBC 15.0 H RBC 5.05 H Hgb Hct 44.7 H RDW Plt Count Seg Neuts % (Manual) 71.0 H Lymphocytes % (Manual) 11.0 L Monocytes % (Manual) 12.0 H Seg Neutrophils # Man 10.7 H Lymphocytes # (Manual) Monocytes # (Manual) 1.8 H D-Dimer 3469.99 H ABG pH ABG pO2 ABG HCO3 ABG O2 Saturation ABG Base Excess ABG Hemoglobin Oxyhemoglobin Sodium Potassium Chloride 97.3 L BUN Creatinine 0.5 L Glucose 115 H POC Glucose Lactic Acid Calcium Phosphorus Magnesium Ferritin AST Lactate Dehydrogenase 385 H C-Reactive Protein 11.20 H NT-Pro-B Natriuret Pep Albumin 2.8 L Triglycerides Urine WBC (Auto) Urine Creatinine Coronavirus (PCR) 03/01/21 03/01/21 03/01/21 05:12 07:30 11:42 WBC RBC Hgb Hct RDW Plt Count Seg Neuts % (Manual) Lymphocytes % (Manual) Monocytes % (Manual) Seg Neutrophils # Man Lymphocytes # (Manual) Monocytes # (Manual) D-Dimer ABG pH ABG pO2 ABG HCO3 ABG O2 Saturation ABG Base Excess ABG Hemoglobin Oxyhemoglobin Sodium Potassium Chloride BUN Creatinine Glucose POC Glucose 130 H 143 H Lactic Acid Calcium Phosphorus Magnesium Ferritin 1526.0 H AST Lactate Dehydrogenase C-Reactive Protein NT-Pro-B Natriuret Pep Albumin Triglycerides Urine WBC (Auto) Urine Creatinine Coronavirus (PCR) 03/01/21 03/01/21 03/01/21 15:28 17:53 21:16 WBC RBC Hgb Hct RDW Plt Count Seg Neuts % (Manual) Lymphocytes % (Manual) Monocytes % (Manual) Seg Neutrophils # Man Lymphocytes # (Manual) Monocytes # (Manual) D-Dimer ABG pH ABG pO2 ABG HCO3 ABG O2 Saturation ABG Base Excess ABG Hemoglobin Oxyhemoglobin Sodium Potassium Chloride BUN Creatinine Glucose POC Glucose 138 H 120 H 157 H Lactic Acid Calcium Phosphorus Magnesium Ferritin AST Lactate Dehydrogenase C-Reactive Protein NT-Pro-B Natriuret Pep Albumin Triglycerides Urine WBC (Auto) Urine Creatinine Coronavirus (PCR) 03/01/21 03/02/21 03/02/21 22:07 07:44 11:40 WBC RBC Hgb Hct RDW Plt Count Seg Neuts % (Manual) Lymphocytes % (Manual) Monocytes % (Manual) Seg Neutrophils # Man Lymphocytes # (Manual) Monocytes # (Manual) D-Dimer ABG pH ABG pO2 35.9 L* ABG HCO3 31.2 H ABG O2 Saturation 68.0 L ABG Base Excess 6.1 H ABG Hemoglobin Oxyhemoglobin 66.1 L Sodium Potassium Chloride BUN Creatinine Glucose POC Glucose 125 H 203 H Lactic Acid Calcium Phosphorus Magnesium Ferritin AST Lactate Dehydrogenase C-Reactive Protein NT-Pro-B Natriuret Pep Albumin Triglycerides Urine WBC (Auto) Urine Creatinine Coronavirus (PCR) 03/02/21 03/02/21 03/02/21 12:13 13:00 17:15 WBC RBC Hgb Hct RDW Plt Count Seg Neuts % (Manual) Lymphocytes % (Manual) Monocytes % (Manual) Seg Neutrophils # Man Lymphocytes # (Manual) Monocytes # (Manual) D-Dimer ABG pH ABG pO2 36.0 L* ABG HCO3 29.5 H ABG O2 Saturation 68.7 L ABG Base Excess 4.7 H ABG Hemoglobin Oxyhemoglobin 66.8 L Sodium Potassium Chloride BUN Creatinine Glucose POC Glucose 130 H 126 H Lactic Acid Calcium Phosphorus Magnesium Ferritin AST Lactate Dehydrogenase C-Reactive Protein NT-Pro-B Natriuret Pep Albumin Triglycerides Urine WBC (Auto) Urine Creatinine Coronavirus (PCR) 03/02/21 03/03/21 03/03/21 21:45 08:02 10:05 WBC 19.2 H RBC Hgb Hct 44.9 H RDW Plt Count Seg Neuts % (Manual) 85.0 H Lymphocytes % (Manual) 7.0 L Monocytes % (Manual) Seg Neutrophils # Man 16.3 H Lymphocytes # (Manual) Monocytes # (Manual) 1.2 H D-Dimer ABG pH ABG pO2 ABG HCO3 ABG O2 Saturation ABG Base Excess ABG Hemoglobin Oxyhemoglobin Sodium Potassium Chloride BUN Creatinine Glucose POC Glucose 113 H 128 H Lactic Acid Calcium Phosphorus Magnesium Ferritin AST Lactate Dehydrogenase C-Reactive Protein NT-Pro-B Natriuret Pep Albumin Triglycerides Urine WBC (Auto) Urine Creatinine Coronavirus (PCR) 03/03/21 03/03/21 03/03/21 10:05 12:45 16:31 WBC RBC Hgb Hct RDW Plt Count Seg Neuts % (Manual) Lymphocytes % (Manual) Monocytes % (Manual) Seg Neutrophils # Man Lymphocytes # (Manual) Monocytes # (Manual) D-Dimer ABG pH ABG pO2 47.7 L ABG HCO3 31.5 H ABG O2 Saturation 82.5 L ABG Base Excess 5.6 H ABG Hemoglobin Oxyhemoglobin 80.4 L Sodium Potassium Chloride 97.8 L BUN 23 H Creatinine Glucose 141 H POC Glucose 126 H Lactic Acid Calcium Phosphorus Magnesium Ferritin AST Lactate Dehydrogenase C-Reactive Protein NT-Pro-B Natriuret Pep Albumin 3.2 L Triglycerides Urine WBC (Auto) Urine Creatinine Coronavirus (PCR) 03/03/21 03/04/21 03/04/21 20:52 07:24 11:04 WBC RBC Hgb Hct RDW Plt Count Seg Neuts % (Manual) Lymphocytes % (Manual) Monocytes % (Manual) Seg Neutrophils # Man Lymphocytes # (Manual) Monocytes # (Manual) D-Dimer ABG pH ABG pO2 ABG HCO3 ABG O2 Saturation ABG Base Excess ABG Hemoglobin Oxyhemoglobin Sodium Potassium Chloride BUN Creatinine Glucose POC Glucose 152 H 126 H 142 H Lactic Acid Calcium Phosphorus Magnesium Ferritin AST Lactate Dehydrogenase C-Reactive Protein NT-Pro-B Natriuret Pep Albumin Triglycerides Urine WBC (Auto) Urine Creatinine Coronavirus (PCR) 03/04/21 03/04/21 03/04/21 11:05 15:33 21:12 WBC RBC Hgb Hct RDW Plt Count Seg Neuts % (Manual) Lymphocytes % (Manual) Monocytes % (Manual) Seg Neutrophils # Man Lymphocytes # (Manual) Monocytes # (Manual) D-Dimer ABG pH ABG pO2 ABG HCO3 ABG O2 Saturation ABG Base Excess ABG Hemoglobin Oxyhemoglobin Sodium Potassium Chloride BUN 34 H Creatinine Glucose 143 H POC Glucose 114 H 180 H Lactic Acid Calcium Phosphorus Magnesium Ferritin AST Lactate Dehydrogenase C-Reactive Protein NT-Pro-B Natriuret Pep Albumin Triglycerides Urine WBC (Auto) Urine Creatinine Coronavirus (PCR) 03/04/21 03/05/21 03/05/21 21:30 07:51 10:10 WBC 17.8 H RBC Hgb 14.5 H Hct 45.8 H RDW 15.3 H Plt Count 446 H Seg Neuts % (Manual) 77.0 H Lymphocytes % (Manual) 12.0 L Monocytes % (Manual) Seg Neutrophils # Man 13.7 H Lymphocytes # (Manual) Monocytes # (Manual) 0.9 H D-Dimer ABG pH 7.473 H ABG pO2 34.1 L* ABG HCO3 29.7 H ABG O2 Saturation 66.4 L ABG Base Excess 5.6 H ABG Hemoglobin Oxyhemoglobin 64.9 L Sodium Potassium Chloride BUN Creatinine Glucose POC Glucose 144 H Lactic Acid Calcium Phosphorus Magnesium Ferritin AST Lactate Dehydrogenase C-Reactive Protein NT-Pro-B Natriuret Pep Albumin Triglycerides Urine WBC (Auto) Urine Creatinine Coronavirus (PCR) 03/05/21 03/05/21 03/05/21 10:10 11:41 12:23 WBC RBC Hgb Hct RDW Plt Count Seg Neuts % (Manual) Lymphocytes % (Manual) Monocytes % (Manual) Seg Neutrophils # Man Lymphocytes # (Manual) Monocytes # (Manual) D-Dimer ABG pH 7.226 L ABG pO2 50.5 L ABG HCO3 32.8 H ABG O2 Saturation 73.6 L ABG Base Excess ABG Hemoglobin 18.2 H Oxyhemoglobin 71.8 L Sodium Potassium 3.5 L Chloride BUN 51 H Creatinine Glucose 217 H POC Glucose 124 H Lactic Acid Calcium Phosphorus Magnesium Ferritin AST Lactate Dehydrogenase C-Reactive Protein NT-Pro-B Natriuret Pep Albumin 3.1 L Triglycerides Urine WBC (Auto) Urine Creatinine Coronavirus (PCR) 03/05/21 03/05/21 03/06/21 16:40 22:39 00:37 WBC RBC Hgb Hct RDW Plt Count Seg Neuts % (Manual) Lymphocytes % (Manual) Monocytes % (Manual) Seg Neutrophils # Man Lymphocytes # (Manual) Monocytes # (Manual) D-Dimer ABG pH ABG pO2 ABG HCO3 ABG O2 Saturation ABG Base Excess ABG Hemoglobin Oxyhemoglobin Sodium Potassium Chloride BUN Creatinine Glucose POC Glucose 138 H 139 H 126 H Lactic Acid Calcium Phosphorus Magnesium Ferritin AST Lactate Dehydrogenase C-Reactive Protein NT-Pro-B Natriuret Pep Albumin Triglycerides Urine WBC (Auto) Urine Creatinine Coronavirus (PCR) 03/06/21 03/06/21 03/06/21 04:25 06:13 06:13 WBC 18.4 H RBC Hgb Hct RDW 15.3 H Plt Count Seg Neuts % (Manual) Lymphocytes % (Manual) Monocytes % (Manual) Seg Neutrophils # Man Lymphocytes # (Manual) Monocytes # (Manual) D-Dimer ABG pH 7.028 L* ABG pO2 ABG HCO3 33.8 H ABG O2 Saturation 92.5 L ABG Base Excess ABG Hemoglobin Oxyhemoglobin 90.6 L Sodium 149 H Potassium Chloride 107.2 H BUN 62 H Creatinine 1.9 H D Glucose 140 H POC Glucose Lactic Acid Calcium 7.7 L D Phosphorus 10.70 H Magnesium 2.40 H Ferritin AST Lactate Dehydrogenase C-Reactive Protein NT-Pro-B Natriuret Pep Albumin Triglycerides Urine WBC (Auto) Urine Creatinine Coronavirus (PCR) 03/06/21 03/06/21 03/06/21 06:13 09:00 12:00 WBC RBC Hgb Hct RDW Plt Count Seg Neuts % (Manual) Lymphocytes % (Manual) Monocytes % (Manual) Seg Neutrophils # Man Lymphocytes # (Manual) Monocytes # (Manual) D-Dimer ABG pH ABG pO2 ABG HCO3 ABG O2 Saturation ABG Base Excess ABG Hemoglobin Oxyhemoglobin Sodium Potassium Chloride BUN Creatinine Glucose POC Glucose 155 H 122 H Lactic Acid Calcium Phosphorus Magnesium Ferritin AST Lactate Dehydrogenase C-Reactive Protein NT-Pro-B Natriuret Pep Albumin Triglycerides Urine WBC (Auto) Urine Creatinine 247.7 H Coronavirus (PCR) 03/06/21 03/06/21 03/06/21 17:16 22:23 Unknown WBC RBC Hgb Hct RDW Plt Count Seg Neuts % (Manual) Lymphocytes % (Manual) Monocytes % (Manual) Seg Neutrophils # Man Lymphocytes # (Manual) Monocytes # (Manual) D-Dimer ABG pH 7.253 L ABG pO2 66.5 L ABG HCO3 31.3 H ABG O2 Saturation 91.8 L ABG Base Excess ABG Hemoglobin 16.8 H Oxyhemoglobin 90.1 L Sodium Potassium Chloride BUN Creatinine Glucose POC Glucose 123 H 123 H Lactic Acid Calcium Phosphorus Magnesium Ferritin AST Lactate Dehydrogenase C-Reactive Protein NT-Pro-B Natriuret Pep Albumin Triglycerides Urine WBC (Auto) Urine Creatinine Coronavirus (PCR) 03/07/21 03/07/21 03/07/21 00:36 04:05 04:05 WBC 18.0 H RBC Hgb Hct RDW Plt Count Seg Neuts % (Manual) Lymphocytes % (Manual) Monocytes % (Manual) Seg Neutrophils # Man Lymphocytes # (Manual) Monocytes # (Manual) D-Dimer ABG pH ABG pO2 ABG HCO3 ABG O2 Saturation ABG Base Excess ABG Hemoglobin Oxyhemoglobin Sodium Potassium Chloride BUN 75 H Creatinine 1.5 H Glucose 113 H POC Glucose 121 H Lactic Acid Calcium Phosphorus Magnesium Ferritin AST Lactate Dehydrogenase C-Reactive Protein NT-Pro-B Natriuret Pep Albumin Triglycerides Urine WBC (Auto) Urine Creatinine Coronavirus (PCR) 03/07/21 03/07/21 03/07/21 04:05 04:49 05:38 WBC RBC Hgb Hct RDW Plt Count Seg Neuts % (Manual) Lymphocytes % (Manual) Monocytes % (Manual) Seg Neutrophils # Man Lymphocytes # (Manual) Monocytes # (Manual) D-Dimer ABG pH 7.280 L ABG pO2 ABG HCO3 29.3 H ABG O2 Saturation ABG Base Excess ABG Hemoglobin Oxyhemoglobin 94.4 L Sodium Potassium Chloride BUN Creatinine Glucose POC Glucose 112 H Lactic Acid Calcium Phosphorus Magnesium Ferritin AST Lactate Dehydrogenase C-Reactive Protein NT-Pro-B Natriuret Pep Albumin Triglycerides 171 H Urine WBC (Auto) Urine Creatinine Coronavirus (PCR) 03/07/21 03/07/21 03/08/21 12:13 18:13 04:30 WBC 12.5 H RBC Hgb Hct RDW Plt Count Seg Neuts % (Manual) Lymphocytes % (Manual) Monocytes % (Manual) Seg Neutrophils # Man Lymphocytes # (Manual) Monocytes # (Manual) D-Dimer ABG pH ABG pO2 ABG HCO3 ABG O2 Saturation ABG Base Excess ABG Hemoglobin Oxyhemoglobin Sodium Potassium Chloride BUN Creatinine Glucose POC Glucose 113 H 111 H Lactic Acid Calcium Phosphorus Magnesium Ferritin AST Lactate Dehydrogenase C-Reactive Protein NT-Pro-B Natriuret Pep Albumin Triglycerides Urine WBC (Auto) Urine Creatinine Coronavirus (PCR) 03/08/21 03/08/21 03/08/21 04:30 05:04 10:00 WBC RBC Hgb Hct RDW Plt Count Seg Neuts % (Manual) Lymphocytes % (Manual) Monocytes % (Manual) Seg Neutrophils # Man Lymphocytes # (Manual) Monocytes # (Manual) D-Dimer ABG pH ABG pO2 73.8 L ABG HCO3 28.9 H ABG O2 Saturation ABG Base Excess ABG Hemoglobin 11.0 L Oxyhemoglobin 93.4 L Sodium Potassium Chloride BUN 69 H Creatinine Glucose 107 H POC Glucose 111 H Lactic Acid Calcium Phosphorus Magnesium Ferritin AST Lactate Dehydrogenase C-Reactive Protein NT-Pro-B Natriuret Pep Albumin Triglycerides Urine WBC (Auto) Urine Creatinine Coronavirus (PCR) 03/08/21 03/08/21 03/09/21 17:09 21:35 04:00 WBC 11.4 H RBC 3.21 L Hgb 9.4 L Hct 29.6 L RDW Plt Count Seg Neuts % (Manual) Lymphocytes % (Manual) Monocytes % (Manual) Seg Neutrophils # Man Lymphocytes # (Manual) Monocytes # (Manual) D-Dimer ABG pH ABG pO2 ABG HCO3 ABG O2 Saturation ABG Base Excess ABG Hemoglobin Oxyhemoglobin Sodium Potassium Chloride BUN Creatinine Glucose POC Glucose 114 H 128 H Lactic Acid Calcium Phosphorus Magnesium Ferritin AST Lactate Dehydrogenase C-Reactive Protein NT-Pro-B Natriuret Pep Albumin Triglycerides Urine WBC (Auto) Urine Creatinine Coronavirus (PCR) 03/09/21 03/09/21 03/09/21 04:00 04:11 11:25 WBC RBC Hgb Hct RDW Plt Count Seg Neuts % (Manual) Lymphocytes % (Manual) Monocytes % (Manual) Seg Neutrophils # Man Lymphocytes # (Manual) Monocytes # (Manual) D-Dimer ABG pH 7.260 L ABG pO2 ABG HCO3 30.5 H ABG O2 Saturation ABG Base Excess ABG Hemoglobin 9.4 L Oxyhemoglobin 93.9 L Sodium Potassium Chloride BUN 74 H Creatinine 1.3 H Glucose 117 H POC Glucose 122 H Lactic Acid Calcium Phosphorus Magnesium Ferritin AST Lactate Dehydrogenase C-Reactive Protein NT-Pro-B Natriuret Pep Albumin Triglycerides Urine WBC (Auto) Urine Creatinine Coronavirus (PCR)
[2021-03-09] MEDS ORDERED: FUROSEMIDE 40 MG/4 ML INJ IV ONE (15:58)
[2021-03-09] MEDS ORDERED: FUROSEMIDE 20 MG/2 ML INJ IV ONE (20:45)
[2021-03-09] MEDS: INSULIN GLARGINE 100 UNITS/ML SUB-Q SCH (21:18)
[2021-03-10] MEDS: fentaNYL DRIP Premix 2,000 MCG/100 ML BAG IV SCH ×4 (00:52→21:35)
--- NOTE | 2021-03-10 02:53 | XRay Report ---
CHEST 1 VIEW 03/10/2021 1:39 AM INDICATION / CLINICAL INFORMATION: Hypoxia. COMPARISON: 03/08/2021 FINDINGS: SUPPORT DEVICES: Stable, satisfactory device positioning. HEART / MEDIASTINUM: No significant abnormality. LUNGS / PLEURA: Diffuse opacities in bilateral lungs may be slightly increased No pneumothorax. Signer Name: Xander Espinoza MD Signed: 03/10/2021 2:49 AM Workstation Name: [id number]
[2021-03-10 03:18] LABS: ABG Base Excess 3.6 mmol/L (-2.0-3.0); ABG HCO3 31.9 mmol/L (20.0-26.0); ABG Methemoglobin 0.8 % (0.0-1.5); ABG Oxygen Saturation 97.5 % (95.0-99.0); ABG PCO2 71.3 mm Hg; ABG PH 7.268 pH Units (7.350-7.450); ABG PO2 113.4 mm Hg (80.0-90.0)
[2021-03-10 05:24] LABS: Hematocrit 30.6 % (30.3-42.9); Hemoglobin 9.7 gm/dl (10.1-14.3); Mean Corpuscular HGB Conc 32 % (30-34); Mean Corpuscular Volume 93 fl (79-97); Platelet Count 232 K/mm3 (140-440); Red Cell Distribution Width 16.1 % (13.2-15.2)
[2021-03-10 05:44] LABS: Calcium 9.4 mg/dL (8.4-10.2)
[2021-03-10] MEDS: INSULIN LISPRO 100 UNIT/ML SUB-Q SCH ×3 (05:48→17:08)
[2021-03-10] MEDS: SENNOSIDES/DOCUSATE SODIUM 8.6/50 MG TAB FEEDTUBE SCH ×2 (09:35→21:06)
[2021-03-10] MEDS: SERTRALINE 50 MG TAB PO SCH (09:35)
[2021-03-10] MEDS: FAMOTIDINE 20 MG/2 ML INJ IV SCH ×2 (09:35→21:06)
[2021-03-10] MEDS: ENOXAPARIN 100 MG/1 ML INJ SUB-Q SCH ×2 (09:35→21:05)
[2021-03-10] MEDS: MIDAZOLAM 100 MG in SODIUM CHLORIDE 0.9% 80 ML IV SCH (09:35)
[2021-03-10] MEDS: GABAPENTIN 400 MG CAP PO SCH ×2 (09:35→21:06)
--- NOTE | 2021-03-10 11:02 | Progress Note ---
<NATY MCELROY - Last Filed: 03/10/21 17:07> Assessment and Plan Assessment and plan: This is a 61-year-old female with past medical history of HTN, DM, and DVT on Eliquis at home admitted for acute hypoxic Respiratory failure 2/2 COVID pneumonia now on ventilatory support. Hospital Course to Date: 02/19/2020 Patient on 50% Ventimask Covid positive Continue steroids May DC antibiotics Respiratory assessment and treatment 02/19: Patient still hypoxic, encourage prone positioning, Pulmonary and ID consult. Will obtain CTA chest to evaluate for PE. Continue steroid therapy and oxygen therapy wean as tolerated. Continuous pulse oximeter. Plan discussed with the patient. 02/20: Patient seen and examined, remains on NRBM. awaiting CT CHEST WITH ANGIO Ordered yesterday. Encourage proning the patient says she was not proned yesterday discussed with nursing staff. Continue steroid therapy and remdesivir. Patient was seen by ID and as documented by ID"She is a candidate for Actemra based on CRp and O2 requirements. unfortunately we have not been getting procalcitonin results. -ordered Actemra once (afebrile, white count only mildly elevated in the setting of steroids)" Discussed plan of care with the nurse. Also called to updated the patients sister listed as NOK but got voice mail 02/21: Continue steroids, remdesivir, patient received 1 dose of Actemra but unable to get the second dose due to availability. CTA showed dense consolidation but no effusion and no pulmonary embolism patient does have a lower extremity DVT. Eliquis continues at full dose of 5 mg twice daily we will continue to monitor closely. Prognosis is guarded counseling for compliance for 15 minutes. 02/22: Patient clinically not improving much of switch the patient to Lovenox. Prognosis remains guarded. Continue anticoagulation due to DVT still suspicious of pulmonary embolism as a result we will obtain echocardiogram and vascular consult per pulmonary request which I agree with. I will also transfer the patient to stepdown unit for closer monitoring. 02/23: Vascular input noted agree the patient has subsegmental bibasilar pulmonary embolism but not enough to warrant intervention. Does not feel that this is contributing majority to her hypoxia. Nevertheless we will switch patient from Eliquis to Lovenox. Continue current management with remdesivir 02/24: Patient seen and examined, remains on anticoagulation, continue remedsivir and steroids. prone as tolerated, will give additional lasix today. Guarded prognosis. 02/25 A&O x 3, C/O mild cough with mucoid expectorant. Denies CP or shortness of breath. Remains on HFNC. pulmonary note and lab results reviewed 02/26: AOX3, proning on encounter. Encouraged continued movement while in bed and with assistance of care staff. Remains on HFNC. Last day of decadron today. 02/27: Patient encouraged to continue proning and remain active. Discussed with PT to come work with patient to mobilize. Will d/w CM for fpc placement solution. 02/28: Patient stated she would like to be a full code. Working with CM for LTAC placement. 03/01: Awaiting LTAC placement. Remains full code. Spoke with daughter Meghna who was updated on patient's case. 03/02: Sats in low 80s on hi lfow. Blood gas shows pao2 = 35.9. will start bipap, d/w IMCU RN who will notify RT. repeat abg in 1 hr. Poor prognosis. 03/03; Sats in low 90's on bipap. Repeat abg this AM demosntrates marginal improvement in PaO2. [facility] d/w daughter, patient and her daughter would like intubation should she continue to deteriorate. Prognosis remains poor. 03/04: de-escalated to HFNC 40/100 + venti. Will continue with bipap prn. Continue steroids. Dispo is still LTAC, placement is pending. 03/05: Resipratory distress this morning. Sats 69-70%. subsequently intubated. No w icu level of care. Family wants continue aggressive measures. Will follow [facility] recs. 03/06: Patient with ISH this am probably due to hypotension vs diuretic use, fluid bolus challenge this am. Urine lytes ordered. FWF added for hypernatremia. 03/07: Patient responded to fluid challenge, renal function improved, UOP better. Weaning down pressors, additional IVF bolus today, plan to wean down on pressors requirement. ABG improved today, wean down Fio2 as tolerated. Okay to start trickle feeds. 03/08: Renal function is back to baseline. Going down on pressor requirements, only on low dose Vaso and levophed today. Continue to wean pressors as tolerated. D/W CCm continue to wean Fio2 as tolerated, keep patient a RASS goal of -4 for now. Advance TF as tolerated per order. 03/09: Remains on the vent. Low SPO2 overnight, vent setting was increased. Off pressors this am. IV lasix per [facility], repeat CXR in the am 03/10: Remains intubated and sedated, RASS -4. Back on pressors this am for low BP. This am CXR and ABG reviewed, oxygenation improved. Continue to wean pressors as tolerated. Vent adjustement per [facility] Assessment and Plan #Acute respiratory failure with hypoxia 2/2 COVID Pneumonia #ARSD - Intubated on 03/05 - Vent setting:CMV-85%,20,30,350 - AM ABG noted - [facility] consulted, appreciate recommendations - VAP bundle addressed - Aspiration precaution HOB above 30 - Sedation for RASS goal of -4 - Daily ABG and CXR - Continue SPO2 monitoring for SPO2 goal above 92% #Sepsis #Leukocytosis #Multifocal pneumonia #COVID Pneumonia - Now on pressors, Levo and Vaso - Titrate prerssors for MAP goal above 65 - Patient afebrile, with leukocytosis - Blood culture NGTD, sputum culture pending - Patient completed steroids course - Hold off on IV ABx and IV steroids for now - Continue to F/U on B.cult - Daily CBC monitor #Acute Kidney Injury(ISH) most likely ATN #Hypernatremia - Probably due to hypotension vs diuretic use - Patient was on IV Lasix - Strict intake and output - Avoid nephrotoxic medications; Renally dose medications - Head in place - Monitor and replace electrolytes as needed - Trend BMP #T2DM (type 2 diabetes mellitus) - SSI Q6hrs - Lantus Qhs - Avoid hypoglycemia #Acute RLE DVT - BLE doppler positive for DVT in right posteroir tibial vein - CTA chest negative PE - Continue AC- Lovenox SubQ The high probability of a clinically significant, sudden or life threatening deterioration of the [multiple] system(s) required my full and direct attention, intervention and personal management. The aggregate critical care time was [60] minutes. This time is in addition to time spent performing reported procedures but includes the following: [X] Data Review and interpretation [X] Patient assessment and monitoring of vital signs [X] Documentation [X] Medication orders and management Disposition Plan: ICU Total Time Spent with Patient (Minutes): 60 History Interval history: Patient seen and examined at the bedside. Intubated and sedated, RASS-4. Back on pressors this am. [place] overnight Hospitalist Physical - Constitutional Vitals: Temp Pulse Resp BP Pulse Ox 99.7 F H 89 30 H 102/54 89 03/10/21 08:00 03/10/21 10:15 03/10/21 10:15 03/10/21 10:15 03/10/21 10:15 General appearance: Present: no acute distress, well-nourished, other (Intubated and Sedated) - EENT Eyes: Present: PERRL - Respiratory Respiratory effort: normal Respiratory: bilateral: rhonchi - Cardiovascular Rhythm: regular Heart Sounds: Present: S1 & S2 - Extremities Extremities: no ischemia, pulses intact, pulses symmetrical Extremity abnormal: edema - Peripheral Assessment Generalized Edema Type: Non-pitting Edema Degree: 1+ Capillary Refill: < 3 seconds Skin Temperature: Warm Peripheral Pulses: within normal limits - Abdominal General gastrointestinal: soft, non-distended, normal bowel sounds - Integumentary Integumentary: Present: warm, dry - Psychiatric Psychiatric: other (Intubated and Sedated) - Neurologic Neurologic: other (Intubated and Sedated) - Allied Health Allied health notes reviewed: nursing Results - Labs CBC & Chem 7: 03/10/21 04:00 03/10/21 04:00 Labs: Laboratory Last Values WBC 11.6 K/mm3 (4.5-11.0) H 03/10/21 04:00 RBC 3.30 M/mm3 (3.65-5.03) L 03/10/21 04:00 Hgb 9.7 gm/dl (10.1-14.3) L 03/10/21 04:00 Hct 30.6 % (30.3-42.9) 03/10/21 04:00 MCV 93 fl (79-97) 03/10/21 04:00 MCH 29 pg (28-32) 03/10/21 04:00 MCHC 32 % (30-34) 03/10/21 04:00 RDW 16.1 % (13.2-15.2) H 03/10/21 04:00 Plt Count 232 K/mm3 (140-440) 03/10/21 04:00 Add Manual Diff Complete 03/05/21 10:10 Total Counted 100 03/05/21 10:10 Seg Neuts % (Manual) 77.0 % (40.0-70.0) H 03/05/21 10:10 Band Neutrophils % 3.0 % 03/05/21 10:10 Lymphocytes % (Manual) 12.0 % (13.4-35.0) L 03/05/21 10:10 Reactive Lymphs % (Man) 2.0 % 03/05/21 10:10 Monocytes % (Manual) 5.0 % (0.0-7.3) 03/05/21 10:10 Eosinophils % (Manual) 1.0 % (0.0-4.3) 03/05/21 10:10 Basophils % (Manual) 0 % (0.0-1.8) 03/05/21 10:10 Metamyelocytes % 0 % 03/05/21 10:10 Myelocytes % 0 % 03/05/21 10:10 Promyelocytes % 0 % 03/05/21 10:10 Blast Cells % 0 % 03/05/21 10:10 Nucleated RBC % Not Reportable 03/05/21 10:10 Seg Neutrophils # Man 13.7 K/mm3 (1.8-7.7) H 03/05/21 10:10 Band Neutrophils # 0.5 K/mm3 03/05/21 10:10 Lymphocytes # (Manual) 2.1 K/mm3 (1.2-5.4) 03/05/21 10:10 Abs React Lymphs (Man) 0.4 K/mm3 03/05/21 10:10 Monocytes # (Manual) 0.9 K/mm3 (0.0-0.8) H 03/05/21 10:10 Eosinophils # (Manual) 0.2 K/mm3 (0.0-0.4) 03/05/21 10:10 Basophils # (Manual) 0.0 K/mm3 (0.0-0.1) 03/05/21 10:10 Metamyelocytes # 0.0 K/mm3 03/05/21 10:10 Myelocytes # 0.0 K/mm3 03/05/21 10:10 Promyelocytes # 0.0 K/mm3 03/05/21 10:10 Blast Cells # 0.0 K/mm3 03/05/21 10:10 WBC Morphology Not Reportable 03/05/21 10:10 Hypersegmented Neuts Not Reportable 03/05/21 10:10 Hyposegmented Neuts Not Reportable 03/05/21 10:10 Hypogranular Neuts Not Reportable 03/05/21 10:10 Smudge Cells Not Reportable 03/05/21 10:10 Toxic Granulation Not Reportable 03/05/21 10:10 Toxic Vacuolation Not Reportable 03/05/21 10:10 Dohle Bodies Not Reportable 03/05/21 10:10 Pelger-Huet Anomaly Not Reportable 03/05/21 10:10 Cindy Rods Not Reportable 03/05/21 10:10 Platelet Estimate Consistent w auto 03/05/21 10:10 Clumped Platelets Not Reportable 03/05/21 10:10 Plt Clumps, EDTA Not Reportable 03/05/21 10:10 Large Platelets 1+ 03/05/21 10:10 Giant Platelets Not Reportable 03/05/21 10:10 Platelet Satelliting Not Reportable 03/05/21 10:10 Plt Morphology Comment Not Reportable 03/05/21 10:10 RBC Morphology Not Reportable 03/05/21 10:10 Dimorphic RBCs Not Reportable 03/05/21 10:10 Polychromasia Few 03/05/21 10:10 Hypochromasia Not Reportable 03/05/21 10:10 Poikilocytosis Not Reportable 03/05/21 10:10 Anisocytosis 1+ 03/05/21 10:10 Microcytosis Not Reportable 03/05/21 10:10 Macrocytosis Not Reportable 03/05/21 10:10 Spherocytes Not Reportable 03/05/21 10:10 Pappenheimer Bodies Not Reportable 03/05/21 10:10 Sickle Cells Not Reportable 03/05/21 10:10 Target Cells Not Reportable 03/05/21 10:10 Tear Drop Cells Not Reportable 03/05/21 10:10 Ovalocytes Not Reportable 03/05/21 10:10 Helmet Cells Not Reportable 03/05/21 10:10 [place] Bodies Not Reportable 03/05/21 10:10 Mchenry Rings Not Reportable 03/05/21 10:10 Alicia Cells Not Reportable 03/05/21 10:10 Bite Cells Not Reportable 03/05/21 10:10 Crenated Cell Not Reportable 03/05/21 10:10 Elliptocytes Not Reportable 03/05/21 10:10 Acanthocytes (Spur) Not Reportable 03/05/21 10:10 Rouleaux Not Reportable 03/05/21 10:10 Hemoglobin C Crystals Not Reportable 03/05/21 10:10 Schistocytes Not Reportable 03/05/21 10:10 Malaria parasites Not Reportable 03/05/21 10:10 Pedro Pablo Bodies Not Reportable 03/05/21 10:10 Hem Pathologist Commnt No 03/05/21 10:10 PT 13.9 Sec. (12.2-14.9) 02/17/21 14:34 INR 0.96 (0.87-1.13) 02/17/21 14:34 APTT 26.4 Sec. (24.2-36.6) 02/17/21 14:34 D-Dimer 3469.99 ng/mlDDU (0-234) H 03/01/21 05:12 ABG pH 7.268 pH Units (7.350-7.450) L 03/10/21 02:43 ABG pCO2 71.3 mm Hg 03/10/21 02:43 ABG pO2 113.4 mm Hg (80.0-90.0) H 03/10/21 02:43 ABG HCO3 31.9 mmol/L (20.0-26.0) H 03/10/21 02:43 ABG O2 Saturation 97.5 % (95.0-99.0) 03/10/21 02:43 ABG O2 Content 13.4 (0.0-44) 03/10/21 02:43 ABG Base Excess 3.6 mmol/L (-2.0-3.0) H 03/10/21 02:43 ABG Hemoglobin 9.9 gm/dl (12.0-16.0) L 03/10/21 02:43 ABG Carboxyhemoglobin 1.5 % (0.0-5.0) 03/10/21 02:43 ABG Methemoglobin 0.8 % (0.0-1.5) 03/10/21 02:43 Oxyhemoglobin 95.2 % (95.0-99.0) 03/10/21 02:43 FiO2 85 % 03/10/21 02:43 Sodium 142 mmol/L (137-145) 03/10/21 04:00 Potassium 4.9 mmol/L (3.6-5.0) 03/10/21 04:00 Chloride 103.7 mmol/L (98-107) 03/10/21 04:00 Carbon Dioxide 29 mmol/L (22-30) 03/10/21 04:00 Anion Gap 14 mmol/L 03/10/21 04:00 BUN 74 mg/dL (7-17) H 03/10/21 04:00 Creatinine 1.2 mg/dL (0.6-1.2) 03/10/21 04:00 Estimated GFR 55 ml/min 03/10/21 04:00 BUN/Creatinine Ratio 62 % 03/10/21 04:00 Glucose 132 mg/dL (65-100) H 03/10/21 04:00 POC Glucose 117 mg/dL (70-105) H 03/10/21 05:08 Lactic Acid 1.60 mmol/L (0.7-2.0) 02/17/21 18:39 Calcium 9.4 mg/dL (8.4-10.2) 03/10/21 04:00 Phosphorus 10.70 mg/dL (2.5-4.5) H 03/06/21 06:13 Magnesium 2.40 mg/dL (1.7-2.3) H 03/06/21 06:13 Ferritin 1526.0 ng/mL (10.0-200.0) H 03/01/21 05:12 Total Bilirubin 0.30 mg/dL (0.1-1.2) 03/05/21 10:10 Direct Bilirubin < 0.2 mg/dL (0-0.2) 02/17/21 14:34 Indirect Bilirubin 0.1 mg/dL 02/17/21 14:34 AST 38 units/L (5-40) 03/05/21 10:10 ALT 44 units/L (7-56) 03/05/21 10:10 Alkaline Phosphatase 78 units/L (35-129) 03/05/21 10:10 Lactate Dehydrogenase 385 units/L (91-180) H 03/01/21 05:12 C-Reactive Protein 11.20 mg/dL (0.00-1.30) H 03/01/21 05:12 NT-Pro-B Natriuret Pep 86.77 pg/mL (0-900) 02/20/21 16:34 Total Protein 7.7 g/dL (6.3-8.2) 03/05/21 10:10 Albumin 3.1 g/dL (3.9-5) L 03/05/21 10:10 Albumin/Globulin Ratio 0.7 % 03/05/21 10:10 Triglycerides 171 mg/dL (2-149) H 03/07/21 04:05 Procalcitonin 0.11 ng/mL (<0.15) 02/19/21 07:32 Urine Color Cassandra (Yellow) 02/18/21 Unknown Urine Turbidity Cloudy (Clear) 02/18/21 Unknown Urine pH 5.0 (5.0-7.0) 02/18/21 Unknown Ur Specific [place] 1.027 (1.003-1.030) 02/18/21 Unknown Urine Protein 100 mg/dl mg/dL (Negative) 02/18/21 Unknown Urine Glucose (UA) Neg mg/dL (Negative) 02/18/21 Unknown Urine Ketones Neg mg/dL (Negative) 02/18/21 Unknown Urine Blood Neg (Negative) 02/18/21 Unknown Urine Nitrite Neg (Negative) 02/18/21 Unknown Urine Bilirubin Neg (Negative) 02/18/21 Unknown Urine Urobilinogen < 2.0 mg/dL (<2.0) 02/18/21 Unknown Ur Leukocyte Esterase Neg (Negative) 02/18/21 Unknown Urine WBC (Auto) 7.0 /HPF (0.0-6.0) H 02/18/21 Unknown Urine RBC (Auto) 4.0 /HPF (0.0-6.0) 02/18/21 Unknown U Epithel Cells (Auto) 3.0 /HPF (0-13.0) 02/18/21 Unknown Urine Mucus 2+ /HPF 02/18/21 Unknown Urine Creatinine 247.7 mg/dL (0.1-20.0) H 03/06/21 09:00 Urine Sodium 25 mmol/L 03/06/21 09:00 Coronavirus (PCR) Positive (Negative) A 02/18/21 Unknown Head/IV: Voiding Method Indwelling Catheter Active Medications - Current Medications Current Medications: Generic Name Dose Route Start Last Admin Trade Name Freq PRN Reason Stop Dose Admin Acetaminophen 650 mg 02/17/21 23:58 03/02/21 09:45 Acetaminophen 325 Mg Tab PO 650 mg Q4H PRN Administration Pain MILD(1-3)/Fever >100.5/BROWN Dextrose 50 ml 02/27/21 11:30 Dextrose 50% In Water (25gm) 50 Ml Syringe IV Q30MIN PRN Hypoglycemia Protocol Enoxaparin Sodium 90 mg 03/08/21 22:00 03/10/21 09:35 Enoxaparin 100 Mg/1 Ml Inj 1 mg/kg (90 mg) 90 mg SUB-Q Administration Q12HR [facility] Protocol Famotidine 20 mg 03/08/21 22:00 03/10/21 09:35 Famotidine 20 Mg/2 Ml Inj IV 20 mg BID DEISY Administration Fentanyl 50 mcg 03/05/21 09:38 Fentanyl 100 Mcg/2 Ml Inj IV Q10MIN PRN ANALGESIA Gabapentin 400 mg 02/19/21 04:00 03/10/21 09:35 Gabapentin 400 Mg Cap PO 400 mg BID DEISY Administration Hydrophilic Ointment 1 applic 03/05/21 09:39 Lip Therapy Vaseline TP Q2HR PRN Dry Lips Propofol 1,000 mg in 100 mls @ 2.585 mls/hr 03/05/21 10:00 03/10/21 06:15 Diprivan 10 Mg/Ml IV 20 mcg/kg/min TITR DEISY 10.342 mls/hr Administration Protocol 5 MCG/KG/MIN Fentanyl Citrate 2,000 mcg in 100 mls @ 4.309 mls/hr 03/05/21 10:00 03/10/21 06:15 Fentanyl Drip Premix IV 4 mcg/kg/hr TITR DEISY 17.237 mls/hr Administration Protocol 1 MCG/KG/HR Midazolam HCl 100 mg/ Sodium 100 mls @ 1 mls/hr 03/05/21 11:00 03/10/21 09:35 Chloride IV 3 mg/hr TITR DEISY 3 mls/hr Administration Protocol 1 MG/HR NORepinephrine/NS 8 MG-250 ML 8 mg in 250 mls @ 3.75 mls/hr 03/05/21 10:15 03/10/21 06:15 Norepinephrine/Ns 8 Mg-250 Ml (Double Conc) IV 8 mcg/min TITRATE DEISY 15 mls/hr Titration Protocol 2 MCG/MIN Dexmedetomidine HCl 400 mcg/ 104 mls @ 4.482 mls/hr 03/05/21 14:00 Sodium Chloride IV TITRATE DEISY Protocol 0.2 MCG/KG/HR Vasopressin 20 unit/ Sodium 101 mls @ 9.09 mls/hr 03/06/21 06:00 03/08/21 10:30 Chloride IV 0 units/min TITR DEISY 0 mls/hr Titration Protocol 0.03 UNITS/MIN Insulin Glargine 10 units 03/02/21 22:00 03/09/21 21:18 Insulin Glargine 100 Units/Ml SUB-Q 10 units QHS DEISY Administration Insulin Human Lispro 0 unit 03/05/21 18:00 03/10/21 05:48 Insulin Lispro 100 Unit/Ml SUB-Q Not Given Q6HR [facility] Protocol Midazolam HCl 2 mg 03/05/21 10:11 03/05/21 10:53 Midazolam 2 Mg/2 Ml Inj IV 2 mg Q10MIN PRN Administration Sedation Multi-Ingred Cream/Lotion/Oil/Oint 1 applic 03/05/21 09:39 Mineral Oil/Petrolatum, White Ophth Oint 3.5 Gm OU Q4HR PRN Dry Eye(s) Ondansetron HCl 4 mg 02/17/21 23:58 Ondansetron 4 Mg/2 Ml Inj IV Q8H PRN Nausea And Vomiting Senna/Docusate Sodium 1 tab 03/05/21 10:00 03/10/21 09:35 Sennosides/Docusate Sodium 8.6/50 Mg Tab FEEDTUBE 1 tab BID DEISY Administration Sertraline HCl 50 mg 02/19/21 10:00 03/10/21 09:35 Sertraline 50 Mg Tab PO 50 mg QDAY DEISY Administration Sodium Chloride 10 ml 02/18/21 10:00 03/10/21 09:35 Sodium Chloride 0.9% 10 Ml Flush Syringe IV 10 ml BID DEISY Administration Sodium Chloride 10 ml 02/17/21 23:58 Sodium Chloride 0.9% 10 Ml Flush Syringe IV PRN PRN LINE FLUSH Nutrition/Malnutrition Assess - Dietary Evaluation Nutrition/Malnutrition Findings: Nutrition Notes Start: 02/25/21 16:10 Freq: Status: Active Protocol: Document 03/08/21 15:59 PARDEEP (Rec: 03/08/21 16:12 [facility] [id number]) Nutrition Notes Initial or Follow up Reassessment Current Diagnosis Diabetes,Hypertension, Respiratory Failure Other Pertinent Diagnosis COVID-19 pneu, SIRS Current Diet TF-Glucerna 1.2 at 48 ml/hr Labs/Tests BUN 69 Pertinent Medications Propofol at 10.342ml/hr ( provides 273 kcal) Height 5 ft 6 in Weight 86.183 kg [place] Body Weight (kg) 59.09 BMI 30.7 Weight Status Obese Subjective/Other Information Spoke with RN via phone (16:02 ). Pt was requiring high pressor support, so TF was not started. Pt not requiring pressor support at this time, so TF started and currently being tolerated at 38ml/hr. TF rate rate to be advanced to goal tonight. No BM reported , but pt receiving senokot. Pt remains on vent support. Burn Absent Trauma Absent Minimum of two criteria No #2 Nutrition Diagnosis Inadequate oral intake Diagnosis Progress(for reassessment Continues documentation) #1 Nutrition Diagnosis Inadequate protein intake As Evidenced by Signs and Symptoms current TF rate provides <75% pro needs Diagnosis Progress(for reassessment Continues documentation) Is patient on ventilator? Yes Is Patient Ambulatory and/or Out of Bed No REE-([place]-confined to bed) 1737.120 Calculation Used for Recommendations 70-80% energy needs Additional Notes Energy: 4660-1374 kcal/day Protein: 1.3 g/kg adjBW: 94 g/ day Fluids: 1 ml/kcal, or as per MD. Nutrition Intervention Nutrition Support: Increase Glucerna 1.2 rate to 50ml/hr. Provide 80ml water flush q4h. Kcal 1,440 Protein (gm) 72 Carbohydrates (gm) 137 Fat (gm) 72 Fluid (mL) 966 Fiber (gm) 19 Goal #1 TF tolerance Goal #2 TF to meet at least 75% energy and pro needs Follow-Up By: 03/11/21 Additional Comments F/U: TF goal rate/tolerance, vent status, BM <BAKARI MENDOZA - Last Filed: 03/11/21 07:16> Assessment and Plan Assessment and plan: I saw and evaluated the patient. I agree with the findings and the plan of care as documented in the Nurse Practitioner's~note, with the following corrections and additions. Hospitalist Physical - Constitutional Vitals: Temp Pulse Resp BP Pulse Ox 100.2 F H 96 H 30 H 108/61 93 03/11/21 04:00 03/11/21 06:15 03/11/21 06:15 03/11/21 06:15 03/11/21 06:15 Results - Labs CBC & Chem 7: 03/11/21 04:00 03/11/21 04:00 Labs: Laboratory Last Values WBC 12.1 K/mm3 (4.5-11.0) H 03/11/21 04:00 RBC 3.30 M/mm3 (3.65-5.03) L 03/11/21 04:00 Hgb 9.5 gm/dl (10.1-14.3) L 03/11/21 04:00 Hct 30.6 % (30.3-42.9) 03/11/21 04:00 MCV 93 fl (79-97) 03/11/21 04:00 MCH 29 pg (28-32) 03/11/21 04:00 MCHC 31 % (30-34) 03/11/21 04:00 RDW 15.5 % (13.2-15.2) H 03/11/21 04:00 Plt Count 239 K/mm3 (140-440) 03/11/21 04:00 Add Manual Diff Complete 03/05/21 10:10 Total Counted 100 03/05/21 10:10 Seg Neuts % (Manual) 77.0 % (40.0-70.0) H 03/05/21 10:10 Band Neutrophils % 3.0 % 03/05/21 10:10 Lymphocytes % (Manual) 12.0 % (13.4-35.0) L 03/05/21 10:10 Reactive Lymphs % (Man) 2.0 % 03/05/21 10:10 Monocytes % (Manual) 5.0 % (0.0-7.3) 03/05/21 10:10 Eosinophils % (Manual) 1.0 % (0.0-4.3) 03/05/21 10:10 Basophils % (Manual) 0 % (0.0-1.8) 03/05/21 10:10 Metamyelocytes % 0 % 03/05/21 10:10 Myelocytes % 0 % 03/05/21 10:10 Promyelocytes % 0 % 03/05/21 10:10 Blast Cells % 0 % 03/05/21 10:10 Nucleated RBC % Not Reportable 03/05/21 10:10 Seg Neutrophils # Man 13.7 K/mm3 (1.8-7.7) H 03/05/21 10:10 Band Neutrophils # 0.5 K/mm3 03/05/21 10:10 Lymphocytes # (Manual) 2.1 K/mm3 (1.2-5.4) 03/05/21 10:10 Abs React Lymphs (Man) 0.4 K/mm3 03/05/21 10:10 Monocytes # (Manual) 0.9 K/mm3 (0.0-0.8) H 03/05/21 10:10 Eosinophils # (Manual) 0.2 K/mm3 (0.0-0.4) 03/05/21 10:10 Basophils # (Manual) 0.0 K/mm3 (0.0-0.1) 03/05/21 10:10 Metamyelocytes # 0.0 K/mm3 03/05/21 10:10 Myelocytes # 0.0 K/mm3 03/05/21 10:10 Promyelocytes # 0.0 K/mm3 03/05/21 10:10 Blast Cells # 0.0 K/mm3 03/05/21 10:10 WBC Morphology Not Reportable 03/05/21 10:10 Hypersegmented Neuts Not Reportable 03/05/21 10:10 Hyposegmented Neuts Not Reportable 03/05/21 10:10 Hypogranular Neuts Not Reportable 03/05/21 10:10 Smudge Cells Not Reportable 03/05/21 10:10 Toxic Granulation Not Reportable 03/05/21 10:10 Toxic Vacuolation Not Reportable 03/05/21 10:10 Dohle Bodies Not Reportable 03/05/21 10:10 Pelger-Huet Anomaly Not Reportable 03/05/21 10:10 Cindy Rods Not Reportable 03/05/21 10:10 Platelet Estimate Consistent w auto 03/05/21 10:10 Clumped Platelets Not Reportable 03/05/21 10:10 Plt Clumps, EDTA Not Reportable 03/05/21 10:10 Large Platelets 1+ 03/05/21 10:10 Giant Platelets Not Reportable 03/05/21 10:10 Platelet Satelliting Not Reportable 03/05/21 10:10 Plt Morphology Comment Not Reportable 03/05/21 10:10 RBC Morphology Not Reportable 03/05/21 10:10 Dimorphic RBCs Not Reportable 03/05/21 10:10 Polychromasia Few 03/05/21 10:10 Hypochromasia Not Reportable 03/05/21 10:10 Poikilocytosis Not Reportable 03/05/21 10:10 Anisocytosis 1+ 03/05/21 10:10 Microcytosis Not Reportable 03/05/21 10:10 Macrocytosis Not Reportable 03/05/21 10:10 Spherocytes Not Reportable 03/05/21 10:10 Pappenheimer Bodies Not Reportable 03/05/21 10:10 Sickle Cells Not Reportable 03/05/21 10:10 Target Cells Not Reportable 03/05/21 10:10 Tear Drop Cells Not Reportable 03/05/21 10:10 Ovalocytes Not Reportable 03/05/21 10:10 Helmet Cells Not Reportable 03/05/21 10:10 [place] Bodies Not Reportable 03/05/21 10:10 Mchenry Rings Not Reportable 03/05/21 10:10 Alicia Cells Not Reportable 03/05/21 10:10 Bite Cells Not Reportable 03/05/21 10:10 Crenated Cell Not Reportable 03/05/21 10:10 Elliptocytes Not Reportable 03/05/21 10:10 Acanthocytes (Spur) Not Reportable 03/05/21 10:10 Rouleaux Not Reportable 03/05/21 10:10 Hemoglobin C Crystals Not Reportable 03/05/21 10:10 Schistocytes Not Reportable 03/05/21 10:10 [place] parasites Not Reportable 03/05/21 10:10 [place] Bodies Not Reportable 03/05/21 10:10 Hem Pathologist Commnt No 03/05/21 10:10 PT 13.9 Sec. (12.2-14.9) 02/17/21 14:34 INR 0.96 (0.87-1.13) 02/17/21 14:34 APTT 26.4 Sec. (24.2-36.6) 02/17/21 14:34 D-Dimer 3469.99 ng/mlDDU (0-234) H 03/01/21 05:12 ABG pH 7.247 pH Units (7.350-7.450) L 03/11/21 03:40 ABG pCO2 80.7 mm Hg 03/11/21 03:40 ABG pO2 123.9 mm Hg (80.0-90.0) H 03/11/21 03:40 ABG HCO3 34.4 mmol/L (20.0-26.0) H 03/11/21 03:40 ABG O2 Saturation 97.8 % (95.0-99.0) 03/11/21 03:40 ABG O2 Content 13.2 (0.0-44) 03/11/21 03:40 ABG Base Excess 5.4 mmol/L (-2.0-3.0) H 03/11/21 03:40 ABG Hemoglobin 9.7 gm/dl (12.0-16.0) L 03/11/21 03:40 ABG Carboxyhemoglobin 1.7 % (0.0-5.0) 03/11/21 03:40 ABG Methemoglobin 0.8 % (0.0-1.5) 03/11/21 03:40 Oxyhemoglobin 95.3 % (95.0-99.0) 03/11/21 03:40 FiO2 100 % 03/11/21 03:40 Sodium 148 mmol/L (137-145) H 03/11/21 04:00 Potassium 5.7 mmol/L (3.6-5.0) H 03/11/21 04:00 Chloride 107.7 mmol/L (98-107) H 03/11/21 04:00 Carbon Dioxide 30 mmol/L (22-30) 03/11/21 04:00 Anion Gap 16 mmol/L 03/11/21 04:00 BUN 63 mg/dL (7-17) H 03/11/21 04:00 Creatinine 0.9 mg/dL (0.6-1.2) 03/11/21 04:00 Estimated GFR > 60 ml/min 03/11/21 04:00 BUN/Creatinine Ratio 70 % 03/11/21 04:00 Glucose 135 mg/dL (65-100) H 03/11/21 04:00 POC Glucose 147 mg/dL (70-105) H 03/11/21 05:32 Lactic Acid 1.60 mmol/L (0.7-2.0) 02/17/21 18:39 Calcium 9.6 mg/dL (8.4-10.2) 03/11/21 04:00 Phosphorus 4.70 mg/dL (2.5-4.5) H 03/11/21 04:00 Magnesium 3.20 mg/dL (1.7-2.3) H 03/11/21 04:00 Ferritin 1526.0 ng/mL (10.0-200.0) H 03/01/21 05:12 Total Bilirubin 0.30 mg/dL (0.1-1.2) 03/05/21 10:10 Direct Bilirubin < 0.2 mg/dL (0-0.2) 02/17/21 14:34 Indirect Bilirubin 0.1 mg/dL 02/17/21 14:34 AST 38 units/L (5-40) 03/05/21 10:10 ALT 44 units/L (7-56) 03/05/21 10:10 Alkaline Phosphatase 78 units/L (35-129) 03/05/21 10:10 Lactate Dehydrogenase 385 units/L (91-180) H 03/01/21 05:12 C-Reactive Protein 11.20 mg/dL (0.00-1.30) H 03/01/21 05:12 NT-Pro-B Natriuret Pep 86.77 pg/mL (0-900) 02/20/21 16:34 Total Protein 7.7 g/dL (6.3-8.2) 03/05/21 10:10 Albumin 3.1 g/dL (3.9-5) L 03/05/21 10:10 Albumin/Globulin Ratio 0.7 % 03/05/21 10:10 Triglycerides 171 mg/dL (2-149) H 03/07/21 04:05 Procalcitonin 0.11 ng/mL (<0.15) 02/19/21 07:32 Urine Color Cassandra (Yellow) 02/18/21 Unknown Urine Turbidity Cloudy (Clear) 02/18/21 Unknown Urine pH 5.0 (5.0-7.0) 02/18/21 Unknown Ur Specific [place] 1.027 (1.003-1.030) 02/18/21 Unknown Urine Protein 100 mg/dl mg/dL (Negative) 02/18/21 Unknown Urine Glucose (UA) Neg mg/dL (Negative) 02/18/21 Unknown Urine Ketones Neg mg/dL (Negative) 02/18/21 Unknown Urine Blood Neg (Negative) 02/18/21 Unknown Urine Nitrite Neg (Negative) 02/18/21 Unknown Urine Bilirubin Neg (Negative) 02/18/21 Unknown Urine Urobilinogen < 2.0 mg/dL (<2.0) 02/18/21 Unknown Ur Leukocyte Esterase Neg (Negative) 02/18/21 Unknown Urine WBC (Auto) 7.0 /HPF (0.0-6.0) H 02/18/21 Unknown Urine RBC (Auto) 4.0 /HPF (0.0-6.0) 02/18/21 Unknown U Epithel Cells (Auto) 3.0 /HPF (0-13.0) 02/18/21 Unknown Urine Mucus 2+ /HPF 02/18/21 Unknown Urine Creatinine 247.7 mg/dL (0.1-20.0) H 03/06/21 09:00 Urine Sodium 25 mmol/L 03/06/21 09:00 Coronavirus (PCR) Positive (Negative) A 02/18/21 Unknown Head/IV: Voiding Method Indwelling Catheter Active Medications - Current Medications Current Medications: Generic Name Dose Route Start Last Admin Trade Name Freq PRN Reason Stop Dose Admin Acetaminophen 650 mg 02/17/21 23:58 03/11/21 04:27 Acetaminophen 325 Mg Tab PO 650 mg Q4H PRN Administration Pain MILD(1-3)/Fever >100.5/BROWN Dextrose 50 ml 02/27/21 11:30 Dextrose 50% In Water (25gm) 50 Ml Syringe IV Q30MIN PRN Hypoglycemia Protocol Enoxaparin Sodium 90 mg 03/08/21 22:00 03/10/21 21:05 Enoxaparin 100 Mg/1 Ml Inj 1 mg/kg (90 mg) 90 mg SUB-Q Administration Q12HR DEISY Protocol Famotidine 20 mg 03/08/21 22:00 03/10/21 21:06 Famotidine 20 Mg/2 Ml Inj IV 20 mg BID DEISY Administration Fentanyl 50 mcg 03/05/21 09:38 Fentanyl 100 Mcg/2 Ml Inj IV Q10MIN PRN ANALGESIA Gabapentin 400 mg 02/19/21 04:00 03/10/21 21:06 Gabapentin 400 Mg Cap PO 400 mg BID [facility] Administration Hydrophilic Ointment 1 applic 03/05/21 09:39 Lip Therapy Vaseline TP Q2HR PRN Dry Lips Propofol 1,000 mg in 100 mls @ 2.585 mls/hr 03/05/21 10:00 03/11/21 01:03 Diprivan 10 Mg/Ml IV 20 mcg/kg/min TITR DEISY 10.342 mls/hr Administration Protocol 5 MCG/KG/MIN Fentanyl Citrate 2,000 mcg in 100 mls @ 4.309 mls/hr 03/05/21 10:00 03/11/21 03:22 Fentanyl Drip Premix IV 4 mcg/kg/hr TITR DEISY 17.237 mls/hr Administration Protocol 1 MCG/KG/HR Midazolam HCl 100 mg/ Sodium 100 mls @ 1 mls/hr 03/05/21 11:00 03/10/21 09:35 Chloride IV 3 mg/hr TITR DEISY 3 mls/hr Administration Protocol 1 MG/HR NORepinephrine/NS 8 MG-250 ML 8 mg in 250 mls @ 3.75 mls/hr 03/05/21 10:15 03/11/21 03:23 Norepinephrine/Ns 8 Mg-250 Ml (Double Conc) IV 8 mcg/min TITRATE DEISY 15 mls/hr Administration Protocol 2 MCG/MIN Dexmedetomidine HCl 400 mcg/ 104 mls @ 4.482 mls/hr 03/05/21 14:00 Sodium Chloride IV TITRATE [facility] Protocol 0.2 MCG/KG/HR Vasopressin 20 unit/ Sodium 101 mls @ 9.09 mls/hr 03/06/21 06:00 03/08/21 10:30 Chloride IV 0 units/min TITR DEISY 0 mls/hr Titration Protocol 0.03 UNITS/MIN Insulin Glargine 10 units 03/02/21 22:00 03/10/21 21:17 Insulin Glargine 100 Units/Ml SUB-Q 10 units QHS [facility] Administration Insulin Human Lispro 0 unit 03/05/21 18:00 03/11/21 05:36 Insulin Lispro 100 Unit/Ml SUB-Q Not Given Q6HR [facility] Protocol Midazolam HCl 2 mg 03/05/21 10:11 03/05/21 10:53 Midazolam 2 Mg/2 Ml Inj IV 2 mg Q10MIN PRN Administration Sedation Multi-Ingred Cream/Lotion/Oil/Oint 1 applic 03/05/21 09:39 Mineral Oil/Petrolatum, White Ophth Oint 3.5 Gm OU Q4HR PRN Dry Eye(s) Ondansetron HCl 4 mg 02/17/21 23:58 Ondansetron 4 Mg/2 Ml Inj IV Q8H PRN Nausea And Vomiting Senna/Docusate Sodium 1 tab 03/05/21 10:00 03/10/21 21:06 Sennosides/Docusate Sodium 8.6/50 Mg Tab FEEDTUBE 1 tab BID DEISY Administration Sertraline HCl 50 mg 02/19/21 10:00 03/10/21 09:35 Sertraline 50 Mg Tab PO 50 mg QDAY DEISY Administration Sodium Chloride 10 ml 02/18/21 10:00 03/10/21 21:06 Sodium Chloride 0.9% 10 Ml Flush Syringe IV 10 ml BID DEISY Administration Sodium Chloride 10 ml 02/17/21 23:58 Sodium Chloride 0.9% 10 Ml Flush Syringe IV PRN PRN LINE FLUSH Nutrition/Malnutrition Assess - Dietary Evaluation Nutrition/Malnutrition Findings: Nutrition Notes Start: 02/25/21 16:10 Freq: Status: Active Protocol: Document 03/08/21 15:59 [facility] (Rec: 03/08/21 16:12 MIALL [id number]) Nutrition Notes Initial or Follow up Reassessment Current Diagnosis Diabetes,Hypertension, Respiratory Failure Other Pertinent Diagnosis COVID-19 pneu, SIRS Current Diet TF-Glucerna 1.2 at 48 ml/hr Labs/Tests BUN 69 Pertinent Medications Propofol at 10.342ml/hr ( provides 273 kcal) Height 5 ft 6 in Weight 86.183 kg [place] Body Weight (kg) 59.09 BMI 30.7 Weight Status Obese Subjective/Other Information Spoke with RN via phone (16:02 ). Pt was requiring high pressor support, so TF was not started. Pt not requiring pressor support at this time, so TF started and currently being tolerated at 38ml/hr. TF rate rate to be advanced to goal tonight. No BM reported , but pt receiving senokot. Pt remains on vent support. Burn Absent Trauma Absent Minimum of two criteria No #2 Nutrition Diagnosis Inadequate oral intake Diagnosis Progress(for reassessment Continues documentation) #1 Nutrition Diagnosis Inadequate protein intake As Evidenced by Signs and Symptoms current TF rate provides <75% pro needs Diagnosis Progress(for reassessment Continues documentation) Is patient on ventilator? Yes Is Patient Ambulatory and/or Out of Bed No REE-([place] Jeor-confined to bed) 1737.120 Calculation Used for Recommendations 70-80% energy needs Additional Notes Energy: 2134-1479 kcal/day Protein: 1.3 g/kg adjBW: 94 g/ day Fluids: 1 ml/kcal, or as per MD. Nutrition Intervention Nutrition Support: Increase Glucerna 1.2 rate to 50ml/hr. Provide 80ml water flush q4h. Kcal 1,440 Protein (gm) 72 Carbohydrates (gm) 137 Fat (gm) 72 Fluid (mL) 966 Fiber (gm) 19 Goal #1 TF tolerance Goal #2 TF to meet at least 75% energy and pro needs Follow-Up By: 03/11/21 Additional Comments F/U: TF goal rate/tolerance, vent status, BM
[2021-03-10] MEDS: NORepinephrine/NS 8 MG-250 ML 8 MG/250 ML INFUS..BTL IV SCH (11:23)
--- NOTE | 2021-03-10 12:29 | Progress Note ---
Assessment and Plan 61 y/o female with acute respiratory failure secondary to COVID 19 pneumonia. 03/10/2021: Slight improvement in oxygenation with dose of Lasix received yesterday. We will increase tidal volume to 400 cc to blow off some of the carbon dioxide. BP remains low. 03/09/2021: Patient have worsening respiratory status FiO2 now 85%. Increasing hypercarbia with respiratory respiratory acidosis noted. Hypercarbia may be due to the high PEEP however given the high FiO2 requirement we will continue with current PEEP levels. Patient have positive fluid balance over 3 L in last 3 days. We will give a small dose of Lasix. 03/08/21: Continue to monitor urine output and function. Consider more fluid today. Maintain current level of sedation. Wean FiO2 for sats >88% and or PaO2 >55. Prognosis still remains guarded. Please do not wean PEEP until FiO2 as at 45-50% 03/07/21: Continue supportive measures. Monitor urine output and function. Labs are better today and she did put out more urine with fluid bolus so will give again today. Overall prognosis remains extremely guarded. 03/06/21: Overall clinical state is worsening. Now with difficulty ventilation and with improved ventilation comes a compromise in oxygenation. Newest concern is renal function which is worsening. If patient requires dialysis then mortality increases and prognosis worsens. If requires HD, prognosis is very very guarded to poor. 03/05/21: Added versed drip to justin and Adam to keep RASS at -4. Will also order precedex in the event it is needed. Repeat ABG somewhat improved but increased RR. Must watch Peak Pressures. attempting to do low lung volume protective ventilator strategy. Patient has actually been off steroids for some time. Will not restart as of yet. Unable to prone. Guarded prognosis. This discussion was had over the weekend with the daughter when I thought we would have to intubate then. Explained that vent is not therapy but only something to give her lungs time to rest, if possible to see if they can recover. Prognosis is very guarded to poor. 03/04/21: Continue supportive care between HFNC and bipap therapy. Steroids. Positive reinforcement. 03/03/21: Long discussion at bedside with patient. Today she stated that she did not want to be intubated. I attempted to call her daughter while I was in the room with the patient but no answer. She will remain full code as she has said this in the past and then revoked after speaking with the daughter ( which is why i called her again this morning). Continue bipap and monitor. Guarded prognosis. 03/02/21: Prone if able. Continue steroids. Negative fluid balance if possible. Prognosis remains very guarded 02/28/21: Prone. Steroids. Net negative fluid balance if possible. Guarded prognosis. 02/27/21: Full code status. Prone as much as possible during the day and sleep prone at night. Patient may require intubation ultimately. Guarded prognosis. 02/26/21: Prone if possible. Continue anticoagulation for DVT. Steroids. Net negative fluid balance. 02/25/21: Long discussion at bedside with patient, whom per her, she has discussed this with her daughter. She does no want an endotracheal tube. She does not want chest compression and she does not want shocks. I did not ask about vasopressors. The patient is awake and alert and oriented. This needs to be addressed by primary team as well an if confirmed, I have no problem with cosigning AND order. Continue supportive measures for now. Guarded to poor prognosis. 02/21/21: BNP normal. Still would attempt to achieve net negative fluid balance daily. Continue Remdesivir and steroids. Prone if patient willing. Follow up CTA results. Discussed with IMS, may change anticoagulation but awaiting official ready on CTA. Guareded prognosis. 02/20/21: Follow up CTA results. Will send BNP. Continue steroids and Remdesivir. Guarded prognosis. Prone if able, very pertinent to do this. 1. self proning as tolerated during the day and prone at night while sleeping 2. Steroids and Remdesivir 3. Daily net negative volume state 4. Consider checking BNP and echo to make sure no edema on this film 5. Agree with empiric anticoagulation given elevated D-Dimer Guarded prognosis. Will continue to follow. Critical care time 31-minute Subjective Date of service: 03/10/21 Principal diagnosis: COVID pneumonia Interval history: No significant change patient remains on mechanical ventilator. Improved oxygenation now at FiO2 75% and PEEP of 20. Blood gases show increased hypercarbia and more respiratory acidosis. Patient is in positive fluid balance of over a liter every day for the last 3 days. ABG show respiratory acidosis probably related to high PEEP and space ventilation Objective Vital Signs - 12hr 03/10/21 03/10/21 03/10/21 00:30 00:45 01:00 Temperature Pulse Rate 82 82 84 Pulse Rate [ From Monitor] Respiratory 30 H 30 H 30 H Rate Blood Pressure 99/52 96/51 97/50 O2 Sat by Pulse 93 93 92 Oximetry 03/10/21 03/10/21 03/10/21 01:15 01:30 01:45 Temperature Pulse Rate 87 86 86 Pulse Rate [ From Monitor] Respiratory 30 H 30 H 30 H Rate Blood Pressure 97/50 94/47 92/48 O2 Sat by Pulse 93 93 93 Oximetry 03/10/21 03/10/21 03/10/21 02:00 02:15 02:30 Temperature Pulse Rate 86 86 86 Pulse Rate [ From Monitor] Respiratory 30 H 30 H 30 H Rate Blood Pressure 98/50 95/51 94/49 O2 Sat by Pulse 92 93 93 Oximetry 03/10/21 03/10/21 03/10/21 02:45 03:00 03:10 Temperature Pulse Rate 85 84 84 Pulse Rate [ From Monitor] Respiratory 30 H 30 H 0 L Rate Blood Pressure 95/52 96/53 95/54 O2 Sat by Pulse 93 93 94 Oximetry 03/10/21 03/10/21 03/10/21 03:15 03:30 03:45 Temperature Pulse Rate 88 86 85 Pulse Rate [ From Monitor] Respiratory 30 H 30 H 30 H Rate Blood Pressure 96/55 93/53 91/50 O2 Sat by Pulse 93 92 93 Oximetry 03/10/21 03/10/21 03/10/21 03:48 03:49 04:00 Temperature 99.4 F Pulse Rate 85 85 Pulse Rate [ 85 From Monitor] Respiratory 30 H 30 H Rate Blood Pressure 92/50 O2 Sat by Pulse 93 94 Oximetry 03/10/21 03/10/21 03/10/21 04:15 04:30 04:45 Temperature Pulse Rate 85 86 86 Pulse Rate [ From Monitor] Respiratory 30 H 30 H 30 H Rate Blood Pressure 91/51 96/50 91/51 O2 Sat by Pulse 93 92 93 Oximetry 03/10/21 03/10/21 03/10/21 05:00 05:15 05:30 Temperature Pulse Rate 84 87 85 Pulse Rate [ From Monitor] Respiratory 30 H 30 H 30 H Rate Blood Pressure 92/50 103/61 97/54 O2 Sat by Pulse 92 92 95 Oximetry 03/10/21 03/10/21 03/10/21 05:45 06:00 06:15 Temperature Pulse Rate 83 82 82 Pulse Rate [ From Monitor] Respiratory 30 H 30 H 30 H Rate Blood Pressure 100/53 96/55 97/54 O2 Sat by Pulse 89 87 93 Oximetry 03/10/21 03/10/21 03/10/21 06:30 06:45 07:00 Temperature Pulse Rate 83 82 81 Pulse Rate [ From Monitor] Respiratory 30 H 30 H 30 H Rate Blood Pressure 94/51 94/52 96/51 O2 Sat by Pulse 92 94 93 Oximetry 03/10/21 03/10/21 03/10/21 07:15 07:30 07:45 Temperature Pulse Rate 82 81 82 Pulse Rate [ From Monitor] Respiratory 30 H 30 H 30 H Rate Blood Pressure 95/53 98/54 98/52 O2 Sat by Pulse 93 94 89 Oximetry 03/10/21 03/10/21 03/10/21 08:00 08:15 08:22 Temperature 99.7 F H Pulse Rate 82 83 82 Pulse Rate [ 82 From Monitor] Respiratory 30 H 30 H Rate Blood Pressure 98/51 95/54 O2 Sat by Pulse 91 93 Oximetry 03/10/21 03/10/21 03/10/21 08:30 08:45 08:48 Temperature Pulse Rate 83 83 84 Pulse Rate [ From Monitor] Respiratory 30 H 30 H Rate Blood Pressure 97/54 101/53 101/53 O2 Sat by Pulse 89 90 94 Oximetry 03/10/21 03/10/21 03/10/21 09:00 09:15 09:30 Temperature Pulse Rate 84 88 89 Pulse Rate [ From Monitor] Respiratory 30 H 30 H 30 H Rate Blood Pressure 99/54 101/56 105/58 O2 Sat by Pulse 93 93 93 Oximetry 03/10/21 03/10/21 03/10/21 09:45 10:00 10:15 Temperature Pulse Rate 89 87 89 Pulse Rate [ From Monitor] Respiratory 30 H 30 H 30 H Rate Blood Pressure 95/49 102/51 102/54 O2 Sat by Pulse 94 91 89 Oximetry 03/10/21 03/10/21 03/10/21 10:30 10:45 11:00 Temperature Pulse Rate 87 88 88 Pulse Rate [ From Monitor] Respiratory 30 H 30 H 27 H Rate Blood Pressure 98/54 102/53 98/53 O2 Sat by Pulse 88 91 90 Oximetry 03/10/21 03/10/21 03/10/21 11:13 11:15 11:30 Temperature Pulse Rate 87 92 H 87 Pulse Rate [ From Monitor] Respiratory 30 H 30 H Rate Blood Pressure 85/42 101/56 O2 Sat by Pulse 91 84 Oximetry 03/10/21 03/10/21 03/10/21 11:44 11:45 12:00 Temperature 100.9 F H Pulse Rate 85 86 Pulse Rate [ 87 From Monitor] Respiratory 30 H 27 H 27 H Rate Blood Pressure 97/51 95/53 O2 Sat by Pulse 93 85 91 Oximetry Constitutional: alert, other (on hiflo) ENT: oropharynx moist Neck: supple Ascultation: Bilateral: diminished breath sounds Cardiovascular: regular rate and rhythm Gastrointestinal: normoactive bowel sounds, soft, non-tender, non-distended Integumentary: normal Extremities: no cyanosis CBC and BMP: 03/10/21 04:00 03/10/21 04:00 ABG, PT/INR, D-dimer: ABG ABG pH 7.268 pH Units (7.350-7.450) L 03/10/21 02:43 ABG pCO2 71.3 mm Hg 03/10/21 02:43 ABG pO2 113.4 mm Hg (80.0-90.0) H 03/10/21 02:43 ABG O2 Saturation 97.5 % (95.0-99.0) 03/10/21 02:43 PT/INR, D-dimer PT 13.9 Sec. (12.2-14.9) 02/17/21 14:34 INR 0.96 (0.87-1.13) 02/17/21 14:34 D-Dimer 3469.99 ng/mlDDU (0-234) H 03/01/21 05:12 Abnormal lab findings: Abnormal Labs 02/17/21 02/17/21 02/17/21 14:34 14:34 14:34 WBC 11.7 H RBC Hgb Hct 44.9 H RDW 15.6 H Plt Count Seg Neuts % (Manual) Lymphocytes % (Manual) 9.0 L Monocytes % (Manual) 12.0 H Seg Neutrophils # Man 8.2 H Lymphocytes # (Manual) 1.1 L Monocytes # (Manual) 1.4 H D-Dimer ABG pH ABG pO2 ABG HCO3 ABG O2 Saturation ABG Base Excess ABG Hemoglobin Oxyhemoglobin Sodium Potassium 3.5 L Chloride BUN 27 H Creatinine Glucose 150 H POC Glucose Lactic Acid 2.90 H* Calcium Phosphorus Magnesium Ferritin AST Lactate Dehydrogenase C-Reactive Protein NT-Pro-B Natriuret Pep Albumin Triglycerides Urine WBC (Auto) Urine Creatinine Coronavirus (PCR) 02/17/21 02/18/21 02/18/21 14:34 07:48 07:48 WBC 12.0 H RBC Hgb Hct RDW 15.4 H Plt Count Seg Neuts % (Manual) 76.0 H Lymphocytes % (Manual) Monocytes % (Manual) Seg Neutrophils # Man 9.1 H Lymphocytes # (Manual) Monocytes # (Manual) D-Dimer ABG pH ABG pO2 ABG HCO3 ABG O2 Saturation ABG Base Excess ABG Hemoglobin Oxyhemoglobin Sodium Potassium Chloride BUN 36 H Creatinine Glucose 133 H POC Glucose Lactic Acid Calcium Phosphorus Magnesium Ferritin AST 57 H Lactate Dehydrogenase C-Reactive Protein NT-Pro-B Natriuret Pep 1619 H Albumin 3.3 L Triglycerides Urine WBC (Auto) Urine Creatinine Coronavirus (PCR) 02/18/21 02/18/21 02/19/21 Unknown Unknown 07:32 WBC RBC Hgb Hct RDW Plt Count Seg Neuts % (Manual) Lymphocytes % (Manual) Monocytes % (Manual) Seg Neutrophils # Man Lymphocytes # (Manual) Monocytes # (Manual) D-Dimer ABG pH ABG pO2 ABG HCO3 ABG O2 Saturation ABG Base Excess ABG Hemoglobin Oxyhemoglobin Sodium 148 H D Potassium Chloride BUN 41 H Creatinine Glucose 123 H POC Glucose Lactic Acid Calcium Phosphorus Magnesium Ferritin AST 57 H Lactate Dehydrogenase C-Reactive Protein NT-Pro-B Natriuret Pep Albumin 3.7 L Triglycerides Urine WBC (Auto) 7.0 H Urine Creatinine Coronavirus (PCR) Positive A 02/19/21 02/19/21 02/20/21 07:32 08:43 05:00 WBC RBC Hgb Hct RDW Plt Count Seg Neuts % (Manual) Lymphocytes % (Manual) Monocytes % (Manual) Seg Neutrophils # Man Lymphocytes # (Manual) Monocytes # (Manual) D-Dimer > 52778 H ABG pH ABG pO2 ABG HCO3 ABG O2 Saturation ABG Base Excess ABG Hemoglobin Oxyhemoglobin Sodium 147 H Potassium Chloride 107.6 H BUN 36 H Creatinine Glucose POC Glucose Lactic Acid Calcium Phosphorus Magnesium Ferritin AST Lactate Dehydrogenase C-Reactive Protein 10.90 H NT-Pro-B Natriuret Pep Albumin 3.3 L Triglycerides Urine WBC (Auto) Urine Creatinine Coronavirus (PCR) 02/20/21 02/21/21 02/21/21 18:46 04:44 04:44 WBC 16.7 H RBC Hgb Hct RDW Plt Count Seg Neuts % (Manual) Lymphocytes % (Manual) Monocytes % (Manual) Seg Neutrophils # Man Lymphocytes # (Manual) Monocytes # (Manual) D-Dimer ABG pH 7.453 H ABG pO2 55.0 L ABG HCO3 26.6 H ABG O2 Saturation 88.3 L ABG Base Excess ABG Hemoglobin Oxyhemoglobin 86.8 L Sodium Potassium Chloride BUN 26 H Creatinine Glucose 111 H POC Glucose Lactic Acid Calcium Phosphorus Magnesium Ferritin AST Lactate Dehydrogenase C-Reactive Protein NT-Pro-B Natriuret Pep Albumin 3.4 L Triglycerides Urine WBC (Auto) Urine Creatinine Coronavirus (PCR) 02/22/21 02/23/21 02/23/21 04:47 09:05 09:05 WBC 19.3 H RBC 5.29 H Hgb 15.2 H Hct 47.7 H D RDW Plt Count Seg Neuts % (Manual) 82.0 H Lymphocytes % (Manual) 6.0 L Monocytes % (Manual) Seg Neutrophils # Man 15.8 H Lymphocytes # (Manual) Monocytes # (Manual) 1.0 H D-Dimer ABG pH ABG pO2 ABG HCO3 ABG O2 Saturation ABG Base Excess ABG Hemoglobin Oxyhemoglobin Sodium Potassium Chloride BUN 25 H 27 H Creatinine Glucose 125 H POC Glucose Lactic Acid Calcium Phosphorus Magnesium Ferritin AST Lactate Dehydrogenase C-Reactive Protein NT-Pro-B Natriuret Pep Albumin 3.3 L Triglycerides Urine WBC (Auto) Urine Creatinine Coronavirus (PCR) 02/23/21 02/23/21 02/24/21 11:33 16:24 04:50 WBC 14.8 H RBC Hgb Hct RDW Plt Count Seg Neuts % (Manual) Lymphocytes % (Manual) Monocytes % (Manual) Seg Neutrophils # Man Lymphocytes # (Manual) Monocytes # (Manual) D-Dimer ABG pH ABG pO2 ABG HCO3 ABG O2 Saturation ABG Base Excess ABG Hemoglobin Oxyhemoglobin Sodium Potassium Chloride BUN Creatinine Glucose POC Glucose 117 H 163 H Lactic Acid Calcium Phosphorus Magnesium Ferritin AST Lactate Dehydrogenase C-Reactive Protein NT-Pro-B Natriuret Pep Albumin Triglycerides Urine WBC (Auto) Urine Creatinine Coronavirus (PCR) 02/24/21 02/25/21 02/27/21 04:50 21:12 04:57 WBC 17.0 H RBC Hgb Hct 43.4 H RDW Plt Count Seg Neuts % (Manual) 84.0 H Lymphocytes % (Manual) 4.0 L Monocytes % (Manual) Seg Neutrophils # Man 14.3 H Lymphocytes # (Manual) 0.7 L Monocytes # (Manual) 0.9 H D-Dimer ABG pH ABG pO2 ABG HCO3 ABG O2 Saturation ABG Base Excess ABG Hemoglobin Oxyhemoglobin Sodium Potassium Chloride BUN 23 H Creatinine Glucose POC Glucose 175 H Lactic Acid Calcium Phosphorus Magnesium Ferritin AST Lactate Dehydrogenase C-Reactive Protein NT-Pro-B Natriuret Pep Albumin Triglycerides Urine WBC (Auto) Urine Creatinine Coronavirus (PCR) 02/27/21 02/27/21 02/27/21 04:57 04:57 04:57 WBC RBC Hgb Hct RDW Plt Count Seg Neuts % (Manual) Lymphocytes % (Manual) Monocytes % (Manual) Seg Neutrophils # Man Lymphocytes # (Manual) Monocytes # (Manual) D-Dimer 5013.37 H ABG pH ABG pO2 ABG HCO3 ABG O2 Saturation ABG Base Excess ABG Hemoglobin Oxyhemoglobin Sodium Potassium Chloride BUN 23 H Creatinine 0.5 L Glucose 113 H POC Glucose Lactic Acid Calcium Phosphorus Magnesium Ferritin 1272.0 H AST Lactate Dehydrogenase 438 H C-Reactive Protein 5.80 H NT-Pro-B Natriuret Pep Albumin Triglycerides Urine WBC (Auto) Urine Creatinine Coronavirus (PCR) 02/27/21 02/27/21 02/28/21 17:53 21:12 07:40 WBC RBC Hgb Hct RDW Plt Count Seg Neuts % (Manual) Lymphocytes % (Manual) Monocytes % (Manual) Seg Neutrophils # Man Lymphocytes # (Manual) Monocytes # (Manual) D-Dimer ABG pH ABG pO2 ABG HCO3 ABG O2 Saturation ABG Base Excess ABG Hemoglobin Oxyhemoglobin Sodium Potassium Chloride BUN Creatinine Glucose POC Glucose 159 H 112 H 123 H Lactic Acid Calcium Phosphorus Magnesium Ferritin AST Lactate Dehydrogenase C-Reactive Protein NT-Pro-B Natriuret Pep Albumin Triglycerides Urine WBC (Auto) Urine Creatinine Coronavirus (PCR) 02/28/21 02/28/21 02/28/21 11:42 16:20 22:26 WBC RBC Hgb Hct RDW Plt Count Seg Neuts % (Manual) Lymphocytes % (Manual) Monocytes % (Manual) Seg Neutrophils # Man Lymphocytes # (Manual) Monocytes # (Manual) D-Dimer ABG pH ABG pO2 ABG HCO3 ABG O2 Saturation ABG Base Excess ABG Hemoglobin Oxyhemoglobin Sodium Potassium Chloride BUN Creatinine Glucose POC Glucose 112 H 138 H 129 H Lactic Acid Calcium Phosphorus Magnesium Ferritin AST Lactate Dehydrogenase C-Reactive Protein NT-Pro-B Natriuret Pep Albumin Triglycerides Urine WBC (Auto) Urine Creatinine Coronavirus (PCR) 03/01/21 03/01/21 03/01/21 05:12 05:12 05:12 WBC 15.0 H RBC 5.05 H Hgb Hct 44.7 H RDW Plt Count Seg Neuts % (Manual) 71.0 H Lymphocytes % (Manual) 11.0 L Monocytes % (Manual) 12.0 H Seg Neutrophils # Man 10.7 H Lymphocytes # (Manual) Monocytes # (Manual) 1.8 H D-Dimer 3469.99 H ABG pH ABG pO2 ABG HCO3 ABG O2 Saturation ABG Base Excess ABG Hemoglobin Oxyhemoglobin Sodium Potassium Chloride 97.3 L BUN Creatinine 0.5 L Glucose 115 H POC Glucose Lactic Acid Calcium Phosphorus Magnesium Ferritin AST Lactate Dehydrogenase 385 H C-Reactive Protein 11.20 H NT-Pro-B Natriuret Pep Albumin 2.8 L Triglycerides Urine WBC (Auto) Urine Creatinine Coronavirus (PCR) 03/01/21 03/01/21 03/01/21 05:12 07:30 11:42 WBC RBC Hgb Hct RDW Plt Count Seg Neuts % (Manual) Lymphocytes % (Manual) Monocytes % (Manual) Seg Neutrophils # Man Lymphocytes # (Manual) Monocytes # (Manual) D-Dimer ABG pH ABG pO2 ABG HCO3 ABG O2 Saturation ABG Base Excess ABG Hemoglobin Oxyhemoglobin Sodium Potassium Chloride BUN Creatinine Glucose POC Glucose 130 H 143 H Lactic Acid Calcium Phosphorus Magnesium Ferritin 1526.0 H AST Lactate Dehydrogenase C-Reactive Protein NT-Pro-B Natriuret Pep Albumin Triglycerides Urine WBC (Auto) Urine Creatinine Coronavirus (PCR) 03/01/21 03/01/21 03/01/21 15:28 17:53 21:16 WBC RBC Hgb Hct RDW Plt Count Seg Neuts % (Manual) Lymphocytes % (Manual) Monocytes % (Manual) Seg Neutrophils # Man Lymphocytes # (Manual) Monocytes # (Manual) D-Dimer ABG pH ABG pO2 ABG HCO3 ABG O2 Saturation ABG Base Excess ABG Hemoglobin Oxyhemoglobin Sodium Potassium Chloride BUN Creatinine Glucose POC Glucose 138 H 120 H 157 H Lactic Acid Calcium Phosphorus Magnesium Ferritin AST Lactate Dehydrogenase C-Reactive Protein NT-Pro-B Natriuret Pep Albumin Triglycerides Urine WBC (Auto) Urine Creatinine Coronavirus (PCR) 03/01/21 03/02/21 03/02/21 22:07 07:44 11:40 WBC RBC Hgb Hct RDW Plt Count Seg Neuts % (Manual) Lymphocytes % (Manual) Monocytes % (Manual) Seg Neutrophils # Man Lymphocytes # (Manual) Monocytes # (Manual) D-Dimer ABG pH ABG pO2 35.9 L* ABG HCO3 31.2 H ABG O2 Saturation 68.0 L ABG Base Excess 6.1 H ABG Hemoglobin Oxyhemoglobin 66.1 L Sodium Potassium Chloride BUN Creatinine Glucose POC Glucose 125 H 203 H Lactic Acid Calcium Phosphorus Magnesium Ferritin AST Lactate Dehydrogenase C-Reactive Protein NT-Pro-B Natriuret Pep Albumin Triglycerides Urine WBC (Auto) Urine Creatinine Coronavirus (PCR) 03/02/21 03/02/21 03/02/21 12:13 13:00 17:15 WBC RBC Hgb Hct RDW Plt Count Seg Neuts % (Manual) Lymphocytes % (Manual) Monocytes % (Manual) Seg Neutrophils # Man Lymphocytes # (Manual) Monocytes # (Manual) D-Dimer ABG pH ABG pO2 36.0 L* ABG HCO3 29.5 H ABG O2 Saturation 68.7 L ABG Base Excess 4.7 H ABG Hemoglobin Oxyhemoglobin 66.8 L Sodium Potassium Chloride BUN Creatinine Glucose POC Glucose 130 H 126 H Lactic Acid Calcium Phosphorus Magnesium Ferritin AST Lactate Dehydrogenase C-Reactive Protein NT-Pro-B Natriuret Pep Albumin Triglycerides Urine WBC (Auto) Urine Creatinine Coronavirus (PCR) 03/02/21 03/03/21 03/03/21 21:45 08:02 10:05 WBC 19.2 H RBC Hgb Hct 44.9 H RDW Plt Count Seg Neuts % (Manual) 85.0 H Lymphocytes % (Manual) 7.0 L Monocytes % (Manual) Seg Neutrophils # Man 16.3 H Lymphocytes # (Manual) Monocytes # (Manual) 1.2 H D-Dimer ABG pH ABG pO2 ABG HCO3 ABG O2 Saturation ABG Base Excess ABG Hemoglobin Oxyhemoglobin Sodium Potassium Chloride BUN Creatinine Glucose POC Glucose 113 H 128 H Lactic Acid Calcium Phosphorus Magnesium Ferritin AST Lactate Dehydrogenase C-Reactive Protein NT-Pro-B Natriuret Pep Albumin Triglycerides Urine WBC (Auto) Urine Creatinine Coronavirus (PCR) 03/03/21 03/03/21 03/03/21 10:05 12:45 16:31 WBC RBC Hgb Hct RDW Plt Count Seg Neuts % (Manual) Lymphocytes % (Manual) Monocytes % (Manual) Seg Neutrophils # Man Lymphocytes # (Manual) Monocytes # (Manual) D-Dimer ABG pH ABG pO2 47.7 L ABG HCO3 31.5 H ABG O2 Saturation 82.5 L ABG Base Excess 5.6 H ABG Hemoglobin Oxyhemoglobin 80.4 L Sodium Potassium Chloride 97.8 L BUN 23 H Creatinine Glucose 141 H POC Glucose 126 H Lactic Acid Calcium Phosphorus Magnesium Ferritin AST Lactate Dehydrogenase C-Reactive Protein NT-Pro-B Natriuret Pep Albumin 3.2 L Triglycerides Urine WBC (Auto) Urine Creatinine Coronavirus (PCR) 03/03/21 03/04/21 03/04/21 20:52 07:24 11:04 WBC RBC Hgb Hct RDW Plt Count Seg Neuts % (Manual) Lymphocytes % (Manual) Monocytes % (Manual) Seg Neutrophils # Man Lymphocytes # (Manual) Monocytes # (Manual) D-Dimer ABG pH ABG pO2 ABG HCO3 ABG O2 Saturation ABG Base Excess ABG Hemoglobin Oxyhemoglobin Sodium Potassium Chloride BUN Creatinine Glucose POC Glucose 152 H 126 H 142 H Lactic Acid Calcium Phosphorus Magnesium Ferritin AST Lactate Dehydrogenase C-Reactive Protein NT-Pro-B Natriuret Pep Albumin Triglycerides Urine WBC (Auto) Urine Creatinine Coronavirus (PCR) 03/04/21 03/04/21 03/04/21 11:05 15:33 21:12 WBC RBC Hgb Hct RDW Plt Count Seg Neuts % (Manual) Lymphocytes % (Manual) Monocytes % (Manual) Seg Neutrophils # Man Lymphocytes # (Manual) Monocytes # (Manual) D-Dimer ABG pH ABG pO2 ABG HCO3 ABG O2 Saturation ABG Base Excess ABG Hemoglobin Oxyhemoglobin Sodium Potassium Chloride BUN 34 H Creatinine Glucose 143 H POC Glucose 114 H 180 H Lactic Acid Calcium Phosphorus Magnesium Ferritin AST Lactate Dehydrogenase C-Reactive Protein NT-Pro-B Natriuret Pep Albumin Triglycerides Urine WBC (Auto) Urine Creatinine Coronavirus (PCR) 03/04/21 03/05/21 03/05/21 21:30 07:51 10:10 WBC 17.8 H RBC Hgb 14.5 H Hct 45.8 H RDW 15.3 H Plt Count 446 H Seg Neuts % (Manual) 77.0 H Lymphocytes % (Manual) 12.0 L Monocytes % (Manual) Seg Neutrophils # Man 13.7 H Lymphocytes # (Manual) Monocytes # (Manual) 0.9 H D-Dimer ABG pH 7.473 H ABG pO2 34.1 L* ABG HCO3 29.7 H ABG O2 Saturation 66.4 L ABG Base Excess 5.6 H ABG Hemoglobin Oxyhemoglobin 64.9 L Sodium Potassium Chloride BUN Creatinine Glucose POC Glucose 144 H Lactic Acid Calcium Phosphorus Magnesium Ferritin AST Lactate Dehydrogenase C-Reactive Protein NT-Pro-B Natriuret Pep Albumin Triglycerides Urine WBC (Auto) Urine Creatinine Coronavirus (PCR) 03/05/21 03/05/21 03/05/21 10:10 11:41 12:23 WBC RBC Hgb Hct RDW Plt Count Seg Neuts % (Manual) Lymphocytes % (Manual) Monocytes % (Manual) Seg Neutrophils # Man Lymphocytes # (Manual) Monocytes # (Manual) D-Dimer ABG pH 7.226 L ABG pO2 50.5 L ABG HCO3 32.8 H ABG O2 Saturation 73.6 L ABG Base Excess ABG Hemoglobin 18.2 H Oxyhemoglobin 71.8 L Sodium Potassium 3.5 L Chloride BUN 51 H Creatinine Glucose 217 H POC Glucose 124 H Lactic Acid Calcium Phosphorus Magnesium Ferritin AST Lactate Dehydrogenase C-Reactive Protein NT-Pro-B Natriuret Pep Albumin 3.1 L Triglycerides Urine WBC (Auto) Urine Creatinine Coronavirus (PCR) 03/05/21 03/05/21 03/06/21 16:40 22:39 00:37 WBC RBC Hgb Hct RDW Plt Count Seg Neuts % (Manual) Lymphocytes % (Manual) Monocytes % (Manual) Seg Neutrophils # Man Lymphocytes # (Manual) Monocytes # (Manual) D-Dimer ABG pH ABG pO2 ABG HCO3 ABG O2 Saturation ABG Base Excess ABG Hemoglobin Oxyhemoglobin Sodium Potassium Chloride BUN Creatinine Glucose POC Glucose 138 H 139 H 126 H Lactic Acid Calcium Phosphorus Magnesium Ferritin AST Lactate Dehydrogenase C-Reactive Protein NT-Pro-B Natriuret Pep Albumin Triglycerides Urine WBC (Auto) Urine Creatinine Coronavirus (PCR) 03/06/21 03/06/21 03/06/21 04:25 06:13 06:13 WBC 18.4 H RBC Hgb Hct RDW 15.3 H Plt Count Seg Neuts % (Manual) Lymphocytes % (Manual) Monocytes % (Manual) Seg Neutrophils # Man Lymphocytes # (Manual) Monocytes # (Manual) D-Dimer ABG pH 7.028 L* ABG pO2 ABG HCO3 33.8 H ABG O2 Saturation 92.5 L ABG Base Excess ABG Hemoglobin Oxyhemoglobin 90.6 L Sodium 149 H Potassium Chloride 107.2 H BUN 62 H Creatinine 1.9 H D Glucose 140 H POC Glucose Lactic Acid Calcium 7.7 L D Phosphorus 10.70 H Magnesium 2.40 H Ferritin AST Lactate Dehydrogenase C-Reactive Protein NT-Pro-B Natriuret Pep Albumin Triglycerides Urine WBC (Auto) Urine Creatinine Coronavirus (PCR) 03/06/21 03/06/21 03/06/21 06:13 09:00 12:00 WBC RBC Hgb Hct RDW Plt Count Seg Neuts % (Manual) Lymphocytes % (Manual) Monocytes % (Manual) Seg Neutrophils # Man Lymphocytes # (Manual) Monocytes # (Manual) D-Dimer ABG pH ABG pO2 ABG HCO3 ABG O2 Saturation ABG Base Excess ABG Hemoglobin Oxyhemoglobin Sodium Potassium Chloride BUN Creatinine Glucose POC Glucose 155 H 122 H Lactic Acid Calcium Phosphorus Magnesium Ferritin AST Lactate Dehydrogenase C-Reactive Protein NT-Pro-B Natriuret Pep Albumin Triglycerides Urine WBC (Auto) Urine Creatinine 247.7 H Coronavirus (PCR) 03/06/21 03/06/21 03/06/21 17:16 22:23 Unknown WBC RBC Hgb Hct RDW Plt Count Seg Neuts % (Manual) Lymphocytes % (Manual) Monocytes % (Manual) Seg Neutrophils # Man Lymphocytes # (Manual) Monocytes # (Manual) D-Dimer ABG pH 7.253 L ABG pO2 66.5 L ABG HCO3 31.3 H ABG O2 Saturation 91.8 L ABG Base Excess ABG Hemoglobin 16.8 H Oxyhemoglobin 90.1 L Sodium Potassium Chloride BUN Creatinine Glucose POC Glucose 123 H 123 H Lactic Acid Calcium Phosphorus Magnesium Ferritin AST Lactate Dehydrogenase C-Reactive Protein NT-Pro-B Natriuret Pep Albumin Triglycerides Urine WBC (Auto) Urine Creatinine Coronavirus (PCR) 03/07/21 03/07/21 03/07/21 00:36 04:05 04:05 WBC 18.0 H RBC Hgb Hct RDW Plt Count Seg Neuts % (Manual) Lymphocytes % (Manual) Monocytes % (Manual) Seg Neutrophils # Man Lymphocytes # (Manual) Monocytes # (Manual) D-Dimer ABG pH ABG pO2 ABG HCO3 ABG O2 Saturation ABG Base Excess ABG Hemoglobin Oxyhemoglobin Sodium Potassium Chloride BUN 75 H Creatinine 1.5 H Glucose 113 H POC Glucose 121 H Lactic Acid Calcium Phosphorus Magnesium Ferritin AST Lactate Dehydrogenase C-Reactive Protein NT-Pro-B Natriuret Pep Albumin Triglycerides Urine WBC (Auto) Urine Creatinine Coronavirus (PCR) 03/07/21 03/07/21 03/07/21 04:05 04:49 05:38 WBC RBC Hgb Hct RDW Plt Count Seg Neuts % (Manual) Lymphocytes % (Manual) Monocytes % (Manual) Seg Neutrophils # Man Lymphocytes # (Manual) Monocytes # (Manual) D-Dimer ABG pH 7.280 L ABG pO2 ABG HCO3 29.3 H ABG O2 Saturation ABG Base Excess ABG Hemoglobin Oxyhemoglobin 94.4 L Sodium Potassium Chloride BUN Creatinine Glucose POC Glucose 112 H Lactic Acid Calcium Phosphorus Magnesium Ferritin AST Lactate Dehydrogenase C-Reactive Protein NT-Pro-B Natriuret Pep Albumin Triglycerides 171 H Urine WBC (Auto) Urine Creatinine Coronavirus (PCR) 03/07/21 03/07/21 03/08/21 12:13 18:13 04:30 WBC 12.5 H RBC Hgb Hct RDW Plt Count Seg Neuts % (Manual) Lymphocytes % (Manual) Monocytes % (Manual) Seg Neutrophils # Man Lymphocytes # (Manual) Monocytes # (Manual) D-Dimer ABG pH ABG pO2 ABG HCO3 ABG O2 Saturation ABG Base Excess ABG Hemoglobin Oxyhemoglobin Sodium Potassium Chloride BUN Creatinine Glucose POC Glucose 113 H 111 H Lactic Acid Calcium Phosphorus Magnesium Ferritin AST Lactate Dehydrogenase C-Reactive Protein NT-Pro-B Natriuret Pep Albumin Triglycerides Urine WBC (Auto) Urine Creatinine Coronavirus (PCR) 03/08/21 03/08/21 03/08/21 04:30 05:04 10:00 WBC RBC Hgb Hct RDW Plt Count Seg Neuts % (Manual) Lymphocytes % (Manual) Monocytes % (Manual) Seg Neutrophils # Man Lymphocytes # (Manual) Monocytes # (Manual) D-Dimer ABG pH ABG pO2 73.8 L ABG HCO3 28.9 H ABG O2 Saturation ABG Base Excess ABG Hemoglobin 11.0 L Oxyhemoglobin 93.4 L Sodium Potassium Chloride BUN 69 H Creatinine Glucose 107 H POC Glucose 111 H Lactic Acid Calcium Phosphorus Magnesium Ferritin AST Lactate Dehydrogenase C-Reactive Protein NT-Pro-B Natriuret Pep Albumin Triglycerides Urine WBC (Auto) Urine Creatinine Coronavirus (PCR) 03/08/21 03/08/21 03/09/21 17:09 21:35 04:00 WBC 11.4 H RBC 3.21 L Hgb 9.4 L Hct 29.6 L RDW Plt Count Seg Neuts % (Manual) Lymphocytes % (Manual) Monocytes % (Manual) Seg Neutrophils # Man Lymphocytes # (Manual) Monocytes # (Manual) D-Dimer ABG pH ABG pO2 ABG HCO3 ABG O2 Saturation ABG Base Excess ABG Hemoglobin Oxyhemoglobin Sodium Potassium Chloride BUN Creatinine Glucose POC Glucose 114 H 128 H Lactic Acid Calcium Phosphorus Magnesium Ferritin AST Lactate Dehydrogenase C-Reactive Protein NT-Pro-B Natriuret Pep Albumin Triglycerides Urine WBC (Auto) Urine Creatinine Coronavirus (PCR) 03/09/21 03/09/21 03/09/21 04:00 04:11 11:25 WBC RBC Hgb Hct RDW Plt Count Seg Neuts % (Manual) Lymphocytes % (Manual) Monocytes % (Manual) Seg Neutrophils # Man Lymphocytes # (Manual) Monocytes # (Manual) D-Dimer ABG pH 7.260 L ABG pO2 ABG HCO3 30.5 H ABG O2 Saturation ABG Base Excess ABG Hemoglobin 9.4 L Oxyhemoglobin 93.9 L Sodium Potassium Chloride BUN 74 H Creatinine 1.3 H Glucose 117 H POC Glucose 122 H Lactic Acid Calcium Phosphorus Magnesium Ferritin AST Lactate Dehydrogenase C-Reactive Protein NT-Pro-B Natriuret Pep Albumin Triglycerides Urine WBC (Auto) Urine Creatinine Coronavirus (PCR) 03/09/21 03/09/21 03/09/21 18:02 21:04 23:30 WBC RBC Hgb Hct RDW Plt Count Seg Neuts % (Manual) Lymphocytes % (Manual) Monocytes % (Manual) Seg Neutrophils # Man Lymphocytes # (Manual) Monocytes # (Manual) D-Dimer ABG pH ABG pO2 ABG HCO3 ABG O2 Saturation ABG Base Excess ABG Hemoglobin Oxyhemoglobin Sodium Potassium Chloride BUN Creatinine Glucose POC Glucose 106 H 116 H 109 H Lactic Acid Calcium Phosphorus Magnesium Ferritin AST Lactate Dehydrogenase C-Reactive Protein NT-Pro-B Natriuret Pep Albumin Triglycerides Urine WBC (Auto) Urine Creatinine Coronavirus (PCR) 03/10/21 03/10/21 03/10/21 02:43 04:00 04:00 WBC 11.6 H RBC 3.30 L Hgb 9.7 L Hct RDW 16.1 H Plt Count Seg Neuts % (Manual) Lymphocytes % (Manual) Monocytes % (Manual) Seg Neutrophils # Man Lymphocytes # (Manual) Monocytes # (Manual) D-Dimer ABG pH 7.268 L ABG pO2 113.4 H ABG HCO3 31.9 H ABG O2 Saturation ABG Base Excess 3.6 H ABG Hemoglobin 9.9 L Oxyhemoglobin Sodium Potassium Chloride BUN 74 H Creatinine Glucose 132 H POC Glucose Lactic Acid Calcium Phosphorus Magnesium Ferritin AST Lactate Dehydrogenase C-Reactive Protein NT-Pro-B Natriuret Pep Albumin Triglycerides Urine WBC (Auto) Urine Creatinine Coronavirus (PCR) 03/10/21 03/10/21 05:08 11:29 WBC RBC Hgb Hct RDW Plt Count Seg Neuts % (Manual) Lymphocytes % (Manual) Monocytes % (Manual) Seg Neutrophils # Man Lymphocytes # (Manual) Monocytes # (Manual) D-Dimer ABG pH ABG pO2 ABG HCO3 ABG O2 Saturation ABG Base Excess ABG Hemoglobin Oxyhemoglobin Sodium Potassium Chloride BUN Creatinine Glucose POC Glucose 117 H 128 H Lactic Acid Calcium Phosphorus Magnesium Ferritin AST Lactate Dehydrogenase C-Reactive Protein NT-Pro-B Natriuret Pep Albumin Triglycerides Urine WBC (Auto) Urine Creatinine Coronavirus (PCR)
[2021-03-10] MEDS: ACETAMINOPHEN 325 MG TAB PO PRN (15:29)
[2021-03-10] MEDS: INSULIN GLARGINE 100 UNITS/ML SUB-Q SCH (21:17)
[2021-03-11] MEDS: INSULIN LISPRO 100 UNIT/ML SUB-Q SCH ×4 (00:25→19:42)
[2021-03-11] MEDS: fentaNYL DRIP Premix 2,000 MCG/100 ML BAG IV SCH ×4 (03:22→21:30)
[2021-03-11] MEDS: NORepinephrine/NS 8 MG-250 ML 8 MG/250 ML INFUS..BTL IV SCH ×2 (03:23→19:54)
[2021-03-11 03:59] LABS: ABG Base Excess 5.4 mmol/L (-2.0-3.0); ABG HCO3 34.4 mmol/L (20.0-26.0); ABG Methemoglobin 0.8 % (0.0-1.5); ABG Oxygen Saturation 97.8 % (95.0-99.0); ABG PCO2 80.7 mm Hg; ABG PH 7.247 pH Units (7.350-7.450); ABG PO2 123.9 mm Hg (80.0-90.0)
[2021-03-11] MEDS: ACETAMINOPHEN 325 MG TAB PO PRN (04:27)
[2021-03-11 05:36] LABS: Hematocrit 30.6 % (30.3-42.9); Hemoglobin 9.5 gm/dl (10.1-14.3); Mean Corpuscular HGB Conc 31 % (30-34); Mean Corpuscular Volume 93 fl (79-97); Platelet Count 239 K/mm3 (140-440); Red Cell Distribution Width 15.5 % (13.2-15.2)
[2021-03-11 05:56] LABS: BUN/Creatinine Ratio 70; Blood Urea Nitrogen 63 mg/dL (7-17); Calcium 9.6 mg/dL (8.4-10.2); Hemolysis Index 0
[2021-03-11] MEDS ORDERED: SODIUM POLYSTYRENE 15 GM/60 ML ORAL LIQD PO SCH (08:30)
[2021-03-11] MEDS: SERTRALINE 50 MG TAB PO SCH (09:19)
[2021-03-11] MEDS: FAMOTIDINE 20 MG/2 ML INJ IV SCH (09:19)
[2021-03-11] MEDS: SENNOSIDES/DOCUSATE SODIUM 8.6/50 MG TAB FEEDTUBE SCH ×2 (09:19→21:31)
[2021-03-11] MEDS: GABAPENTIN 400 MG CAP PO SCH ×2 (09:19→21:31)
[2021-03-11] MEDS: ENOXAPARIN 100 MG/1 ML INJ SUB-Q SCH ×2 (09:19→21:30)
[2021-03-11] MEDS ORDERED: SODIUM CHLORIDE 0.9% 50 ML IVPB IV PRN (09:49)
[2021-03-11] MEDS ORDERED: DEXTROSE 10% *Hypoglycemia IV PRN (10:46)
--- NOTE | 2021-03-11 11:47 | XRay Report ---
CHEST 1 VIEW 03/11/2021 11:23 AM INDICATION / CLINICAL INFORMATION: increasing oxygen. COMPARISON: 03/10/2021 FINDINGS: SUPPORT DEVICES: Stable, satisfactory device positioning. HEART / MEDIASTINUM: Stable. LUNGS / PLEURA: Stable diffuse bilateral interstitial opacities. No pneumothorax. ADDITIONAL FINDINGS: No significant additional findings. IMPRESSION: 1. No adverse change from the prior exam. Signer Name: Alok Marino MD Signed: 03/11/2021 11:42 AM Workstation Name: [id number]
[2021-03-11] MEDS: FREE WATER PO SCH ×4 (11:52→21:30)
--- NOTE | 2021-03-11 12:09 | Progress Note ---
Assessment and Plan 61 y/o female with acute respiratory failure secondary to COVID 19 pneumonia. 03/11/21: K is elevated but renal function and urine output remains stable. Maintain current level of sedation. On Levophed, may need to give more volume. Ok with weaning FiO2 for sats >88% and or PaO2 of 55 and greater. Unable to prone at this time. Guarded prognosis. 03/08/21: Continue to monitor urine output and function. Consider more fluid today. Maintain current level of sedation. Wean FiO2 for sats >88% and or PaO2 >55. Prognosis still remains guarded. Please do not wean PEEP until FiO2 as at 45-50% 03/07/21: Continue supportive measures. Monitor urine output and function. Labs are better today and she did put out more urine with fluid bolus so will give again today. Overall prognosis remains extremely guarded. 03/06/21: Overall clinical state is worsening. Now with difficulty ventilation and with improved ventilation comes a compromise in oxygenation. Newest concern is renal function which is worsening. If patient requires dialysis then mortality increases and prognosis worsens. If requires HD, prognosis is very ve ry guarded to poor. 03/05/21: Added versed drip to fent and Diprovan to keep RASS at -4. Will also order precedex in the event it is needed. Repeat ABG somewhat improved but increased RR. Must watch Peak Pressures. attempting to do low lung volume protective ventilator strategy. Patient has actually been off steroids for some time. Will not restart as of yet. Unable to prone. Guarded prognosis. This discussion was had over the weekend with the daughter when I thought we would have to intubate then. Explained that vent is not therapy but only something to give her lungs time to rest, if possible to see if they can recover. Prognosis is very guarded to poor. 03/04/21: Continue supportive care between HFNC and bipap therapy. Steroids. Positive reinforcement. 03/03/21: Long discussion at bedside with patient. Today she stated that she did not want to be intubated. I attempted to call her daughter while I was in the room with the patient but no answer. She will remain full code as she has said this in the past and then revoked after speaking with the daughter ( which is why i called her again this morning). Continue bipap and monitor. Guarded prognosis. 03/02/21: Prone if able. Continue steroids. Negative fluid balance if possible. Prognosis remains very guarded 02/28/21: Prone. Steroids. Net negative fluid balance if possible. Guarded prognosis. 02/27/21: Full code status. Prone as much as possible during the day and sleep prone at night. Patient may require intubation ultimately. Guarded prognosis. 02/26/21: Prone if possible. Continue anticoagulation for DVT. Steroids. Net negative fluid balance. 02/25/21: Long discussion at bedside with patient, whom per her, she has discussed this with her daughter. She does no want an endotracheal tube. She does not want chest compression and she does not want shocks. I did not ask about vasopressors. The patient is awake and alert and oriented. This needs to be addressed by primary team as well an if confirmed, I have no problem with cosigning AND order. Continue supportive measures for now. Guarded to poor prognosis. 02/21/21: BNP normal. Still would attempt to achieve net negative fluid balance daily. Continue Remdesivir and steroids. Prone if patient willing. Follow up CTA results. Discussed with IMS, may change anticoagulation but awaiting official ready on CTA. Guareded prognosis. 02/20/21: Follow up CTA results. Will send BNP. Continue steroids and Remdesivir. Guarded prognosis. Prone if able, very pertinent to do this. 1. self proning as tolerated during the day and prone at night while sleeping 2. Steroids and Remdesivir 3. Daily net negative volume state 4. Consider checking BNP and echo to make sure no edema on this film 5. Agree with empiric anticoagulation given elevated D-Dimer Guarded prognosis. Will continue to follow. Subjective Date of service: 03/11/21 Principal diagnosis: COVID pneumonia Interval history: Desatted to the 70's last night so now back up to 100%. PEEP at 20. CXR this am is unchanged from yesterday. No Pneumothorax. Objective Vital Signs - 12hr 03/11/21 03/11/21 03/11/21 00:15 00:30 00:45 Temperature Pulse Rate 91 H 92 H 92 H Pulse Rate [ From Monitor] Respiratory 25 H 30 H 30 H Rate Blood Pressure 97/55 98/54 103/58 O2 Sat by Pulse 90 89 89 Oximetry 03/11/21 03/11/21 03/11/21 01:00 01:05 01:15 Temperature Pulse Rate 91 H 90 91 H Pulse Rate [ From Monitor] Respiratory 25 H 30 H Rate Blood Pressure 104/57 97/56 O2 Sat by Pulse 90 89 Oximetry 03/11/21 03/11/21 03/11/21 01:30 01:45 02:00 Temperature Pulse Rate 92 H 93 H 93 H Pulse Rate [ From Monitor] Respiratory 29 H 30 H 29 H Rate Blood Pressure 98/55 105/56 99/57 O2 Sat by Pulse 88 88 88 Oximetry 03/11/21 03/11/21 03/11/21 02:15 02:30 02:45 Temperature Pulse Rate 92 H 92 H 94 H Pulse Rate [ From Monitor] Respiratory 25 H 27 H 25 H Rate Blood Pressure 100/56 98/56 96/55 O2 Sat by Pulse 89 89 88 Oximetry 03/11/21 03/11/21 03/11/21 03:00 03:15 03:30 Temperature Pulse Rate 96 H 97 H 96 H Pulse Rate [ From Monitor] Respiratory 30 H 16 30 H Rate Blood Pressure 105/55 119/50 104/59 O2 Sat by Pulse 89 78 L 92 Oximetry 03/11/21 03/11/21 03/11/21 03:45 03:51 04:00 Temperature 100.2 F H Pulse Rate 98 H 97 H 98 H Pulse Rate [ From Monitor] Respiratory 30 H 30 H Rate Blood Pressure 112/63 112/63 110/61 O2 Sat by Pulse 93 93 94 Oximetry 03/11/21 03/11/21 03/11/21 04:15 04:30 04:45 Temperature Pulse Rate 99 H 99 H 97 H Pulse Rate [ From Monitor] Respiratory 31 H 30 H 30 H Rate Blood Pressure 112/63 105/65 104/65 O2 Sat by Pulse 94 92 93 Oximetry 03/11/21 03/11/21 03/11/21 05:00 05:15 05:30 Temperature Pulse Rate 98 H 99 H 98 H Pulse Rate [ From Monitor] Respiratory 27 H 30 H 27 H Rate Blood Pressure 105/65 107/63 113/60 O2 Sat by Pulse 93 92 93 Oximetry 03/11/21 03/11/21 03/11/21 05:33 05:45 06:00 Temperature Pulse Rate 97 H 97 H 97 H Pulse Rate [ From Monitor] Respiratory 30 H 30 H Rate Blood Pressure 109/62 96/55 O2 Sat by Pulse 96 93 Oximetry 03/11/21 03/11/21 03/11/21 06:15 06:30 06:45 Temperature Pulse Rate 96 H 94 H 93 H Pulse Rate [ From Monitor] Respiratory 30 H 30 H 30 H Rate Blood Pressure 108/61 110/61 104/55 O2 Sat by Pulse 93 93 94 Oximetry 03/11/21 03/11/21 03/11/21 07:00 07:15 07:30 Temperature Pulse Rate 91 H 90 89 Pulse Rate [ From Monitor] Respiratory 30 H 30 H 30 H Rate Blood Pressure 96/58 104/57 102/57 O2 Sat by Pulse 94 Oximetry 03/11/21 03/11/21 03/11/21 07:36 07:45 08:00 Temperature Pulse Rate 88 88 87 Pulse Rate [ 92 H From Monitor] Respiratory 30 H 30 H Rate Blood Pressure 102/57 102/61 101/63 O2 Sat by Pulse 94 92 93 Oximetry 03/11/21 03/11/21 03/11/21 08:15 08:30 08:45 Temperature Pulse Rate 87 85 85 Pulse Rate [ From Monitor] Respiratory 30 H 30 H 30 H Rate Blood Pressure 105/61 101/61 104/60 O2 Sat by Pulse 94 94 94 Oximetry 03/11/21 03/11/21 03/11/21 08:48 09:00 09:15 Temperature 99 F Pulse Rate 92 H 85 84 Pulse Rate [ From Monitor] Respiratory 30 H 30 H Rate Blood Pressure 102/64 98/62 O2 Sat by Pulse 94 94 Oximetry 03/11/21 03/11/21 03/11/21 09:30 09:45 10:00 Temperature Pulse Rate 83 82 82 Pulse Rate [ From Monitor] Respiratory 30 H 30 H 30 H Rate Blood Pressure 102/59 104/64 103/65 O2 Sat by Pulse 93 94 94 Oximetry 03/11/21 03/11/21 03/11/21 10:15 10:30 10:45 Temperature Pulse Rate 82 83 83 Pulse Rate [ From Monitor] Respiratory 30 H 30 H 30 H Rate Blood Pressure 103/62 99/62 105/61 O2 Sat by Pulse 94 93 Oximetry 03/11/21 03/11/21 03/11/21 11:00 11:15 11:20 Temperature Pulse Rate 85 84 84 Pulse Rate [ From Monitor] Respiratory 30 H 30 H Rate Blood Pressure 103/62 99/63 99/63 O2 Sat by Pulse 94 94 94 Oximetry Constitutional: alert, other (on hiflo) ENT: oropharynx moist Neck: supple Ascultation: Bilateral: diminished breath sounds Cardiovascular: regular rate and rhythm Gastrointestinal: normoactive bowel sounds, soft, non-tender, non-distended Integumentary: normal Extremities: no cyanosis CBC and BMP: 03/11/21 04:00 03/11/21 04:00 ABG, PT/INR, D-dimer: ABG ABG pH 7.247 pH Units (7.350-7.450) L 03/11/21 03:40 ABG pCO2 80.7 mm Hg 03/11/21 03:40 ABG pO2 123.9 mm Hg (80.0-90.0) H 03/11/21 03:40 ABG O2 Saturation 97.8 % (95.0-99.0) 03/11/21 03:40 PT/INR, D-dimer PT 13.9 Sec. (12.2-14.9) 02/17/21 14:34 INR 0.96 (0.87-1.13) 02/17/21 14:34 D-Dimer 3469.99 ng/mlDDU (0-234) H 03/01/21 05:12 Abnormal lab findings: Abnormal Labs 02/17/21 02/17/21 02/17/21 14:34 14:34 14:34 WBC 11.7 H RBC Hgb Hct 44.9 H RDW 15.6 H Plt Count Seg Neuts % (Manual) Lymphocytes % (Manual) 9.0 L Monocytes % (Manual) 12.0 H Seg Neutrophils # Man 8.2 H Lymphocytes # (Manual) 1.1 L Monocytes # (Manual) 1.4 H D-Dimer ABG pH ABG pO2 ABG HCO3 ABG O2 Saturation ABG Base Excess ABG Hemoglobin Oxyhemoglobin Sodium Potassium 3.5 L Chloride BUN 27 H Creatinine Glucose 150 H POC Glucose Lactic Acid 2.90 H* Calcium Phosphorus Magnesium Ferritin AST Lactate Dehydrogenase C-Reactive Protein NT-Pro-B Natriuret Pep Albumin Triglycerides Urine WBC (Auto) Urine Creatinine Coronavirus (PCR) 02/17/21 02/18/21 02/18/21 14:34 07:48 07:48 WBC 12.0 H RBC Hgb Hct RDW 15.4 H Plt Count Seg Neuts % (Manual) 76.0 H Lymphocytes % (Manual) Monocytes % (Manual) Seg Neutrophils # Man 9.1 H Lymphocytes # (Manual) Monocytes # (Manual) D-Dimer ABG pH ABG pO2 ABG HCO3 ABG O2 Saturation ABG Base Excess ABG Hemoglobin Oxyhemoglobin Sodium Potassium Chloride BUN 36 H Creatinine Glucose 133 H POC Glucose Lactic Acid Calcium Phosphorus Magnesium Ferritin AST 57 H Lactate Dehydrogenase C-Reactive Protein NT-Pro-B Natriuret Pep 1619 H Albumin 3.3 L Triglycerides Urine WBC (Auto) Urine Creatinine Coronavirus (PCR) 02/18/21 02/18/21 02/19/21 Unknown Unknown 07:32 WBC RBC Hgb Hct RDW Plt Count Seg Neuts % (Manual) Lymphocytes % (Manual) Monocytes % (Manual) Seg Neutrophils # Man Lymphocytes # (Manual) Monocytes # (Manual) D-Dimer ABG pH ABG pO2 ABG HCO3 ABG O2 Saturation ABG Base Excess ABG Hemoglobin Oxyhemoglobin Sodium 148 H D Potassium Chloride BUN 41 H Creatinine Glucose 123 H POC Glucose Lactic Acid Calcium Phosphorus Magnesium Ferritin AST 57 H Lactate Dehydrogenase C-Reactive Protein NT-Pro-B Natriuret Pep Albumin 3.7 L Triglycerides Urine WBC (Auto) 7.0 H Urine Creatinine Coronavirus (PCR) Positive A 02/19/21 02/19/21 02/20/21 07:32 08:43 05:00 WBC RBC Hgb Hct RDW Plt Count Seg Neuts % (Manual) Lymphocytes % (Manual) Monocytes % (Manual) Seg Neutrophils # Man Lymphocytes # (Manual) Monocytes # (Manual) D-Dimer > 53017 H ABG pH ABG pO2 ABG HCO3 ABG O2 Saturation ABG Base Excess ABG Hemoglobin Oxyhemoglobin Sodium 147 H Potassium Chloride 107.6 H BUN 36 H Creatinine Glucose POC Glucose Lactic Acid Calcium Phosphorus Magnesium Ferritin AST Lactate Dehydrogenase C-Reactive Protein 10.90 H NT-Pro-B Natriuret Pep Albumin 3.3 L Triglycerides Urine WBC (Auto) Urine Creatinine Coronavirus (PCR) 02/20/21 02/21/21 02/21/21 18:46 04:44 04:44 WBC 16.7 H RBC Hgb Hct RDW Plt Count Seg Neuts % (Manual) Lymphocytes % (Manual) Monocytes % (Manual) Seg Neutrophils # Man Lymphocytes # (Manual) Monocytes # (Manual) D-Dimer ABG pH 7.453 H ABG pO2 55.0 L ABG HCO3 26.6 H ABG O2 Saturation 88.3 L ABG Base Excess ABG Hemoglobin Oxyhemoglobin 86.8 L Sodium Potassium Chloride BUN 26 H Creatinine Glucose 111 H POC Glucose Lactic Acid Calcium Phosphorus Magnesium Ferritin AST Lactate Dehydrogenase C-Reactive Protein NT-Pro-B Natriuret Pep Albumin 3.4 L Triglycerides Urine WBC (Auto) Urine Creatinine Coronavirus (PCR) 02/22/21 02/23/21 02/23/21 04:47 09:05 09:05 WBC 19.3 H RBC 5.29 H Hgb 15.2 H Hct 47.7 H D RDW Plt Count Seg Neuts % (Manual) 82.0 H Lymphocytes % (Manual) 6.0 L Monocytes % (Manual) Seg Neutrophils # Man 15.8 H Lymphocytes # (Manual) Monocytes # (Manual) 1.0 H D-Dimer ABG pH ABG pO2 ABG HCO3 ABG O2 Saturation ABG Base Excess ABG Hemoglobin Oxyhemoglobin Sodium Potassium Chloride BUN 25 H 27 H Creatinine Glucose 125 H POC Glucose Lactic Acid Calcium Phosphorus Magnesium Ferritin AST Lactate Dehydrogenase C-Reactive Protein NT-Pro-B Natriuret Pep Albumin 3.3 L Triglycerides Urine WBC (Auto) Urine Creatinine Coronavirus (PCR) 02/23/21 02/23/21 02/24/21 11:33 16:24 04:50 WBC 14.8 H RBC Hgb Hct RDW Plt Count Seg Neuts % (Manual) Lymphocytes % (Manual) Monocytes % (Manual) Seg Neutrophils # Man Lymphocytes # (Manual) Monocytes # (Manual) D-Dimer ABG pH ABG pO2 ABG HCO3 ABG O2 Saturation ABG Base Excess ABG Hemoglobin Oxyhemoglobin Sodium Potassium Chloride BUN Creatinine Glucose POC Glucose 117 H 163 H Lactic Acid Calcium Phosphorus Magnesium Ferritin AST Lactate Dehydrogenase C-Reactive Protein NT-Pro-B Natriuret Pep Albumin Triglycerides Urine WBC (Auto) Urine Creatinine Coronavirus (PCR) 02/24/21 02/25/21 02/27/21 04:50 21:12 04:57 WBC 17.0 H RBC Hgb Hct 43.4 H RDW Plt Count Seg Neuts % (Manual) 84.0 H Lymphocytes % (Manual) 4.0 L Monocytes % (Manual) Seg Neutrophils # Man 14.3 H Lymphocytes # (Manual) 0.7 L Monocytes # (Manual) 0.9 H D-Dimer ABG pH ABG pO2 ABG HCO3 ABG O2 Saturation ABG Base Excess ABG Hemoglobin Oxyhemoglobin Sodium Potassium Chloride BUN 23 H Creatinine Glucose POC Glucose 175 H Lactic Acid Calcium Phosphorus Magnesium Ferritin AST Lactate Dehydrogenase C-Reactive Protein NT-Pro-B Natriuret Pep Albumin Triglycerides Urine WBC (Auto) Urine Creatinine Coronavirus (PCR) 02/27/21 02/27/21 02/27/21 04:57 04:57 04:57 WBC RBC Hgb Hct RDW Plt Count Seg Neuts % (Manual) Lymphocytes % (Manual) Monocytes % (Manual) Seg Neutrophils # Man Lymphocytes # (Manual) Monocytes # (Manual) D-Dimer 5013.37 H ABG pH ABG pO2 ABG HCO3 ABG O2 Saturation ABG Base Excess ABG Hemoglobin Oxyhemoglobin Sodium Potassium Chloride BUN 23 H Creatinine 0.5 L Glucose 113 H POC Glucose Lactic Acid Calcium Phosphorus Magnesium Ferritin 1272.0 H AST Lactate Dehydrogenase 438 H C-Reactive Protein 5.80 H NT-Pro-B Natriuret Pep Albumin Triglycerides Urine WBC (Auto) Urine Creatinine Coronavirus (PCR) 02/27/21 02/27/21 02/28/21 17:53 21:12 07:40 WBC RBC Hgb Hct RDW Plt Count Seg Neuts % (Manual) Lymphocytes % (Manual) Monocytes % (Manual) Seg Neutrophils # Man Lymphocytes # (Manual) Monocytes # (Manual) D-Dimer ABG pH ABG pO2 ABG HCO3 ABG O2 Saturation ABG Base Excess ABG Hemoglobin Oxyhemoglobin Sodium Potassium Chloride BUN Creatinine Glucose POC Glucose 159 H 112 H 123 H Lactic Acid Calcium Phosphorus Magnesium Ferritin AST Lactate Dehydrogenase C-Reactive Protein NT-Pro-B Natriuret Pep Albumin Triglycerides Urine WBC (Auto) Urine Creatinine Coronavirus (PCR) 02/28/21 02/28/21 02/28/21 11:42 16:20 22:26 WBC RBC Hgb Hct RDW Plt Count Seg Neuts % (Manual) Lymphocytes % (Manual) Monocytes % (Manual) Seg Neutrophils # Man Lymphocytes # (Manual) Monocytes # (Manual) D-Dimer ABG pH ABG pO2 ABG HCO3 ABG O2 Saturation ABG Base Excess ABG Hemoglobin Oxyhemoglobin Sodium Potassium Chloride BUN Creatinine Glucose POC Glucose 112 H 138 H 129 H Lactic Acid Calcium Phosphorus Magnesium Ferritin AST Lactate Dehydrogenase C-Reactive Protein NT-Pro-B Natriuret Pep Albumin Triglycerides Urine WBC (Auto) Urine Creatinine Coronavirus (PCR) 03/01/21 03/01/21 03/01/21 05:12 05:12 05:12 WBC 15.0 H RBC 5.05 H Hgb Hct 44.7 H RDW Plt Count Seg Neuts % (Manual) 71.0 H Lymphocytes % (Manual) 11.0 L Monocytes % (Manual) 12.0 H Seg Neutrophils # Man 10.7 H Lymphocytes # (Manual) Monocytes # (Manual) 1.8 H D-Dimer 3469.99 H ABG pH ABG pO2 ABG HCO3 ABG O2 Saturation ABG Base Excess ABG Hemoglobin Oxyhemoglobin Sodium Potassium Chloride 97.3 L BUN Creatinine 0.5 L Glucose 115 H POC Glucose Lactic Acid Calcium Phosphorus Magnesium Ferritin AST Lactate Dehydrogenase 385 H C-Reactive Protein 11.20 H NT-Pro-B Natriuret Pep Albumin 2.8 L Triglycerides Urine WBC (Auto) Urine Creatinine Coronavirus (PCR) 03/01/21 03/01/21 03/01/21 05:12 07:30 11:42 WBC RBC Hgb Hct RDW Plt Count Seg Neuts % (Manual) Lymphocytes % (Manual) Monocytes % (Manual) Seg Neutrophils # Man Lymphocytes # (Manual) Monocytes # (Manual) D-Dimer ABG pH ABG pO2 ABG HCO3 ABG O2 Saturation ABG Base Excess ABG Hemoglobin Oxyhemoglobin Sodium Potassium Chloride BUN Creatinine Glucose POC Glucose 130 H 143 H Lactic Acid Calcium Phosphorus Magnesium Ferritin 1526.0 H AST Lactate Dehydrogenase C-Reactive Protein NT-Pro-B Natriuret Pep Albumin Triglycerides Urine WBC (Auto) Urine Creatinine Coronavirus (PCR) 03/01/21 03/01/21 03/01/21 15:28 17:53 21:16 WBC RBC Hgb Hct RDW Plt Count Seg Neuts % (Manual) Lymphocytes % (Manual) Monocytes % (Manual) Seg Neutrophils # Man Lymphocytes # (Manual) Monocytes # (Manual) D-Dimer ABG pH ABG pO2 ABG HCO3 ABG O2 Saturation ABG Base Excess ABG Hemoglobin Oxyhemoglobin Sodium Potassium Chloride BUN Creatinine Glucose POC Glucose 138 H 120 H 157 H Lactic Acid Calcium Phosphorus Magnesium Ferritin AST Lactate Dehydrogenase C-Reactive Protein NT-Pro-B Natriuret Pep Albumin Triglycerides Urine WBC (Auto) Urine Creatinine Coronavirus (PCR) 03/01/21 03/02/21 03/02/21 22:07 07:44 11:40 WBC RBC Hgb Hct RDW Plt Count Seg Neuts % (Manual) Lymphocytes % (Manual) Monocytes % (Manual) Seg Neutrophils # Man Lymphocytes # (Manual) Monocytes # (Manual) D-Dimer ABG pH ABG pO2 35.9 L* ABG HCO3 31.2 H ABG O2 Saturation 68.0 L ABG Base Excess 6.1 H ABG Hemoglobin Oxyhemoglobin 66.1 L Sodium Potassium Chloride BUN Creatinine Glucose POC Glucose 125 H 203 H Lactic Acid Calcium Phosphorus Magnesium Ferritin AST Lactate Dehydrogenase C-Reactive Protein NT-Pro-B Natriuret Pep Albumin Triglycerides Urine WBC (Auto) Urine Creatinine Coronavirus (PCR) 03/02/21 03/02/21 03/02/21 12:13 13:00 17:15 WBC RBC Hgb Hct RDW Plt Count Seg Neuts % (Manual) Lymphocytes % (Manual) Monocytes % (Manual) Seg Neutrophils # Man Lymphocytes # (Manual) Monocytes # (Manual) D-Dimer ABG pH ABG pO2 36.0 L* ABG HCO3 29.5 H ABG O2 Saturation 68.7 L ABG Base Excess 4.7 H ABG Hemoglobin Oxyhemoglobin 66.8 L Sodium Potassium Chloride BUN Creatinine Glucose POC Glucose 130 H 126 H Lactic Acid Calcium Phosphorus Magnesium Ferritin AST Lactate Dehydrogenase C-Reactive Protein NT-Pro-B Natriuret Pep Albumin Triglycerides Urine WBC (Auto) Urine Creatinine Coronavirus (PCR) 03/02/21 03/03/21 03/03/21 21:45 08:02 10:05 WBC 19.2 H RBC Hgb Hct 44.9 H RDW Plt Count Seg Neuts % (Manual) 85.0 H Lymphocytes % (Manual) 7.0 L Monocytes % (Manual) Seg Neutrophils # Man 16.3 H Lymphocytes # (Manual) Monocytes # (Manual) 1.2 H D-Dimer ABG pH ABG pO2 ABG HCO3 ABG O2 Saturation ABG Base Excess ABG Hemoglobin Oxyhemoglobin Sodium Potassium Chloride BUN Creatinine Glucose POC Glucose 113 H 128 H Lactic Acid Calcium Phosphorus Magnesium Ferritin AST Lactate Dehydrogenase C-Reactive Protein NT-Pro-B Natriuret Pep Albumin Triglycerides Urine WBC (Auto) Urine Creatinine Coronavirus (PCR) 03/03/21 03/03/21 03/03/21 10:05 12:45 16:31 WBC RBC Hgb Hct RDW Plt Count Seg Neuts % (Manual) Lymphocytes % (Manual) Monocytes % (Manual) Seg Neutrophils # Man Lymphocytes # (Manual) Monocytes # (Manual) D-Dimer ABG pH ABG pO2 47.7 L ABG HCO3 31.5 H ABG O2 Saturation 82.5 L ABG Base Excess 5.6 H ABG Hemoglobin Oxyhemoglobin 80.4 L Sodium Potassium Chloride 97.8 L BUN 23 H Creatinine Glucose 141 H POC Glucose 126 H Lactic Acid Calcium Phosphorus Magnesium Ferritin AST Lactate Dehydrogenase C-Reactive Protein NT-Pro-B Natriuret Pep Albumin 3.2 L Triglycerides Urine WBC (Auto) Urine Creatinine Coronavirus (PCR) 03/03/21 03/04/21 03/04/21 20:52 07:24 11:04 WBC RBC Hgb Hct RDW Plt Count Seg Neuts % (Manual) Lymphocytes % (Manual) Monocytes % (Manual) Seg Neutrophils # Man Lymphocytes # (Manual) Monocytes # (Manual) D-Dimer ABG pH ABG pO2 ABG HCO3 ABG O2 Saturation ABG Base Excess ABG Hemoglobin Oxyhemoglobin Sodium Potassium Chloride BUN Creatinine Glucose POC Glucose 152 H 126 H 142 H Lactic Acid Calcium Phosphorus Magnesium Ferritin AST Lactate Dehydrogenase C-Reactive Protein NT-Pro-B Natriuret Pep Albumin Triglycerides Urine WBC (Auto) Urine Creatinine Coronavirus (PCR) 03/04/21 03/04/21 03/04/21 11:05 15:33 21:12 WBC RBC Hgb Hct RDW Plt Count Seg Neuts % (Manual) Lymphocytes % (Manual) Monocytes % (Manual) Seg Neutrophils # Man Lymphocytes # (Manual) Monocytes # (Manual) D-Dimer ABG pH ABG pO2 ABG HCO3 ABG O2 Saturation ABG Base Excess ABG Hemoglobin Oxyhemoglobin Sodium Potassium Chloride BUN 34 H Creatinine Glucose 143 H POC Glucose 114 H 180 H Lactic Acid Calcium Phosphorus Magnesium Ferritin AST Lactate Dehydrogenase C-Reactive Protein NT-Pro-B Natriuret Pep Albumin Triglycerides Urine WBC (Auto) Urine Creatinine Coronavirus (PCR) 03/04/21 03/05/21 03/05/21 21:30 07:51 10:10 WBC 17.8 H RBC Hgb 14.5 H Hct 45.8 H RDW 15.3 H Plt Count 446 H Seg Neuts % (Manual) 77.0 H Lymphocytes % (Manual) 12.0 L Monocytes % (Manual) Seg Neutrophils # Man 13.7 H Lymphocytes # (Manual) Monocytes # (Manual) 0.9 H D-Dimer ABG pH 7.473 H ABG pO2 34.1 L* ABG HCO3 29.7 H ABG O2 Saturation 66.4 L ABG Base Excess 5.6 H ABG Hemoglobin Oxyhemoglobin 64.9 L Sodium Potassium Chloride BUN Creatinine Glucose POC Glucose 144 H Lactic Acid Calcium Phosphorus Magnesium Ferritin AST Lactate Dehydrogenase C-Reactive Protein NT-Pro-B Natriuret Pep Albumin Triglycerides Urine WBC (Auto) Urine Creatinine Coronavirus (PCR) 03/05/21 03/05/21 03/05/21 10:10 11:41 12:23 WBC RBC Hgb Hct RDW Plt Count Seg Neuts % (Manual) Lymphocytes % (Manual) Monocytes % (Manual) Seg Neutrophils # Man Lymphocytes # (Manual) Monocytes # (Manual) D-Dimer ABG pH 7.226 L ABG pO2 50.5 L ABG HCO3 32.8 H ABG O2 Saturation 73.6 L ABG Base Excess ABG Hemoglobin 18.2 H Oxyhemoglobin 71.8 L Sodium Potassium 3.5 L Chloride BUN 51 H Creatinine Glucose 217 H POC Glucose 124 H Lactic Acid Calcium Phosphorus Magnesium Ferritin AST Lactate Dehydrogenase C-Reactive Protein NT-Pro-B Natriuret Pep Albumin 3.1 L Triglycerides Urine WBC (Auto) Urine Creatinine Coronavirus (PCR) 03/05/21 03/05/21 03/06/21 16:40 22:39 00:37 WBC RBC Hgb Hct RDW Plt Count Seg Neuts % (Manual) Lymphocytes % (Manual) Monocytes % (Manual) Seg Neutrophils # Man Lymphocytes # (Manual) Monocytes # (Manual) D-Dimer ABG pH ABG pO2 ABG HCO3 ABG O2 Saturation ABG Base Excess ABG Hemoglobin Oxyhemoglobin Sodium Potassium Chloride BUN Creatinine Glucose POC Glucose 138 H 139 H 126 H Lactic Acid Calcium Phosphorus Magnesium Ferritin AST Lactate Dehydrogenase C-Reactive Protein NT-Pro-B Natriuret Pep Albumin Triglycerides Urine WBC (Auto) Urine Creatinine Coronavirus (PCR) 03/06/21 03/06/21 03/06/21 04:25 06:13 06:13 WBC 18.4 H RBC Hgb Hct RDW 15.3 H Plt Count Seg Neuts % (Manual) Lymphocytes % (Manual) Monocytes % (Manual) Seg Neutrophils # Man Lymphocytes # (Manual) Monocytes # (Manual) D-Dimer ABG pH 7.028 L* ABG pO2 ABG HCO3 33.8 H ABG O2 Saturation 92.5 L ABG Base Excess ABG Hemoglobin Oxyhemoglobin 90.6 L Sodium 149 H Potassium Chloride 107.2 H BUN 62 H Creatinine 1.9 H D Glucose 140 H POC Glucose Lactic Acid Calcium 7.7 L D Phosphorus 10.70 H Magnesium 2.40 H Ferritin AST Lactate Dehydrogenase C-Reactive Protein NT-Pro-B Natriuret Pep Albumin Triglycerides Urine WBC (Auto) Urine Creatinine Coronavirus (PCR) 03/06/21 03/06/21 03/06/21 06:13 09:00 12:00 WBC RBC Hgb Hct RDW Plt Count Seg Neuts % (Manual) Lymphocytes % (Manual) Monocytes % (Manual) Seg Neutrophils # Man Lymphocytes # (Manual) Monocytes # (Manual) D-Dimer ABG pH ABG pO2 ABG HCO3 ABG O2 Saturation ABG Base Excess ABG Hemoglobin Oxyhemoglobin Sodium Potassium Chloride BUN Creatinine Glucose POC Glucose 155 H 122 H Lactic Acid Calcium Phosphorus Magnesium Ferritin AST Lactate Dehydrogenase C-Reactive Protein NT-Pro-B Natriuret Pep Albumin Triglycerides Urine WBC (Auto) Urine Creatinine 247.7 H Coronavirus (PCR) 03/06/21 03/06/21 03/06/21 17:16 22:23 Unknown WBC RBC Hgb Hct RDW Plt Count Seg Neuts % (Manual) Lymphocytes % (Manual) Monocytes % (Manual) Seg Neutrophils # Man Lymphocytes # (Manual) Monocytes # (Manual) D-Dimer ABG pH 7.253 L ABG pO2 66.5 L ABG HCO3 31.3 H ABG O2 Saturation 91.8 L ABG Base Excess ABG Hemoglobin 16.8 H Oxyhemoglobin 90.1 L Sodium Potassium Chloride BUN Creatinine Glucose POC Glucose 123 H 123 H Lactic Acid Calcium Phosphorus Magnesium Ferritin AST Lactate Dehydrogenase C-Reactive Protein NT-Pro-B Natriuret Pep Albumin Triglycerides Urine WBC (Auto) Urine Creatinine Coronavirus (PCR) 03/07/21 03/07/21 03/07/21 00:36 04:05 04:05 WBC 18.0 H RBC Hgb Hct RDW Plt Count Seg Neuts % (Manual) Lymphocytes % (Manual) Monocytes % (Manual) Seg Neutrophils # Man Lymphocytes # (Manual) Monocytes # (Manual) D-Dimer ABG pH ABG pO2 ABG HCO3 ABG O2 Saturation ABG Base Excess ABG Hemoglobin Oxyhemoglobin Sodium Potassium Chloride BUN 75 H Creatinine 1.5 H Glucose 113 H POC Glucose 121 H Lactic Acid Calcium Phosphorus Magnesium Ferritin AST Lactate Dehydrogenase C-Reactive Protein NT-Pro-B Natriuret Pep Albumin Triglycerides Urine WBC (Auto) Urine Creatinine Coronavirus (PCR) 03/07/21 03/07/21 03/07/21 04:05 04:49 05:38 WBC RBC Hgb Hct RDW Plt Count Seg Neuts % (Manual) Lymphocytes % (Manual) Monocytes % (Manual) Seg Neutrophils # Man Lymphocytes # (Manual) Monocytes # (Manual) D-Dimer ABG pH 7.280 L ABG pO2 ABG HCO3 29.3 H ABG O2 Saturation ABG Base Excess ABG Hemoglobin Oxyhemoglobin 94.4 L Sodium Potassium Chloride BUN Creatinine Glucose POC Glucose 112 H Lactic Acid Calcium Phosphorus Magnesium Ferritin AST Lactate Dehydrogenase C-Reactive Protein NT-Pro-B Natriuret Pep Albumin Triglycerides 171 H Urine WBC (Auto) Urine Creatinine Coronavirus (PCR) 03/07/21 03/07/21 03/08/21 12:13 18:13 04:30 WBC 12.5 H RBC Hgb Hct RDW Plt Count Seg Neuts % (Manual) Lymphocytes % (Manual) Monocytes % (Manual) Seg Neutrophils # Man Lymphocytes # (Manual) Monocytes # (Manual) D-Dimer ABG pH ABG pO2 ABG HCO3 ABG O2 Saturation ABG Base Excess ABG Hemoglobin Oxyhemoglobin Sodium Potassium Chloride BUN Creatinine Glucose POC Glucose 113 H 111 H Lactic Acid Calcium Phosphorus Magnesium Ferritin AST Lactate Dehydrogenase C-Reactive Protein NT-Pro-B Natriuret Pep Albumin Triglycerides Urine WBC (Auto) Urine Creatinine Coronavirus (PCR) 03/08/21 03/08/21 03/08/21 04:30 05:04 10:00 WBC RBC Hgb Hct RDW Plt Count Seg Neuts % (Manual) Lymphocytes % (Manual) Monocytes % (Manual) Seg Neutrophils # Man Lymphocytes # (Manual) Monocytes # (Manual) D-Dimer ABG pH ABG pO2 73.8 L ABG HCO3 28.9 H ABG O2 Saturation ABG Base Excess ABG Hemoglobin 11.0 L Oxyhemoglobin 93.4 L Sodium Potassium Chloride BUN 69 H Creatinine Glucose 107 H POC Glucose 111 H Lactic Acid Calcium Phosphorus Magnesium Ferritin AST Lactate Dehydrogenase C-Reactive Protein NT-Pro-B Natriuret Pep Albumin Triglycerides Urine WBC (Auto) Urine Creatinine Coronavirus (PCR) 03/08/21 03/08/21 03/09/21 17:09 21:35 04:00 WBC 11.4 H RBC 3.21 L Hgb 9.4 L Hct 29.6 L RDW Plt Count Seg Neuts % (Manual) Lymphocytes % (Manual) Monocytes % (Manual) Seg Neutrophils # Man Lymphocytes # (Manual) Monocytes # (Manual) D-Dimer ABG pH ABG pO2 ABG HCO3 ABG O2 Saturation ABG Base Excess ABG Hemoglobin Oxyhemoglobin Sodium Potassium Chloride BUN Creatinine Glucose POC Glucose 114 H 128 H Lactic Acid Calcium Phosphorus Magnesium Ferritin AST Lactate Dehydrogenase C-Reactive Protein NT-Pro-B Natriuret Pep Albumin Triglycerides Urine WBC (Auto) Urine Creatinine Coronavirus (PCR) 03/09/21 03/09/21 03/09/21 04:00 04:11 11:25 WBC RBC Hgb Hct RDW Plt Count Seg Neuts % (Manual) Lymphocytes % (Manual) Monocytes % (Manual) Seg Neutrophils # Man Lymphocytes # (Manual) Monocytes # (Manual) D-Dimer ABG pH 7.260 L ABG pO2 ABG HCO3 30.5 H ABG O2 Saturation ABG Base Excess ABG Hemoglobin 9.4 L Oxyhemoglobin 93.9 L Sodium Potassium Chloride BUN 74 H Creatinine 1.3 H Glucose 117 H POC Glucose 122 H Lactic Acid Calcium Phosphorus Magnesium Ferritin AST Lactate Dehydrogenase C-Reactive Protein NT-Pro-B Natriuret Pep Albumin Triglycerides Urine WBC (Auto) Urine Creatinine Coronavirus (PCR) 03/09/21 03/09/21 03/09/21 18:02 21:04 23:30 WBC RBC Hgb Hct RDW Plt Count Seg Neuts % (Manual) Lymphocytes % (Manual) Monocytes % (Manual) Seg Neutrophils # Man Lymphocytes # (Manual) Monocytes # (Manual) D-Dimer ABG pH ABG pO2 ABG HCO3 ABG O2 Saturation ABG Base Excess ABG Hemoglobin Oxyhemoglobin Sodium Potassium Chloride BUN Creatinine Glucose POC Glucose 106 H 116 H 109 H Lactic Acid Calcium Phosphorus Magnesium Ferritin AST Lactate Dehydrogenase C-Reactive Protein NT-Pro-B Natriuret Pep Albumin Triglycerides Urine WBC (Auto) Urine Creatinine Coronavirus (PCR) 03/10/21 03/10/21 03/10/21 02:43 04:00 04:00 WBC 11.6 H RBC 3.30 L Hgb 9.7 L Hct RDW 16.1 H Plt Count Seg Neuts % (Manual) Lymphocytes % (Manual) Monocytes % (Manual) Seg Neutrophils # Man Lymphocytes # (Manual) Monocytes # (Manual) D-Dimer ABG pH 7.268 L ABG pO2 113.4 H ABG HCO3 31.9 H ABG O2 Saturation ABG Base Excess 3.6 H ABG Hemoglobin 9.9 L Oxyhemoglobin Sodium Potassium Chloride BUN 74 H Creatinine Glucose 132 H POC Glucose Lactic Acid Calcium Phosphorus Magnesium Ferritin AST Lactate Dehydrogenase C-Reactive Protein NT-Pro-B Natriuret Pep Albumin Triglycerides Urine WBC (Auto) Urine Creatinine Coronavirus (PCR) 03/10/21 03/10/21 03/10/21 05:08 11:29 16:23 WBC RBC Hgb Hct RDW Plt Count Seg Neuts % (Manual) Lymphocytes % (Manual) Monocytes % (Manual) Seg Neutrophils # Man Lymphocytes # (Manual) Monocytes # (Manual) D-Dimer ABG pH ABG pO2 ABG HCO3 ABG O2 Saturation ABG Base Excess ABG Hemoglobin Oxyhemoglobin Sodium Potassium Chloride BUN Creatinine Glucose POC Glucose 117 H 128 H 116 H Lactic Acid Calcium Phosphorus Magnesium Ferritin AST Lactate Dehydrogenase C-Reactive Protein NT-Pro-B Natriuret Pep Albumin Triglycerides Urine WBC (Auto) Urine Creatinine Coronavirus (PCR) 03/10/21 03/10/21 03/11/21 21:15 23:39 03:40 WBC RBC Hgb Hct RDW Plt Count Seg Neuts % (Manual) Lymphocytes % (Manual) Monocytes % (Manual) Seg Neutrophils # Man Lymphocytes # (Manual) Monocytes # (Manual) D-Dimer ABG pH 7.247 L ABG pO2 123.9 H ABG HCO3 34.4 H ABG O2 Saturation ABG Base Excess 5.4 H ABG Hemoglobin 9.7 L Oxyhemoglobin Sodium Potassium Chloride BUN Creatinine Glucose POC Glucose 123 H 124 H Lactic Acid Calcium Phosphorus Magnesium Ferritin AST Lactate Dehydrogenase C-Reactive Protein NT-Pro-B Natriuret Pep Albumin Triglycerides Urine WBC (Auto) Urine Creatinine Coronavirus (PCR) 03/11/21 03/11/21 03/11/21 04:00 04:00 05:32 WBC 12.1 H RBC 3.30 L Hgb 9.5 L Hct RDW 15.5 H Plt Count Seg Neuts % (Manual) Lymphocytes % (Manual) Monocytes % (Manual) Seg Neutrophils # Man Lymphocytes # (Manual) Monocytes # (Manual) D-Dimer ABG pH ABG pO2 ABG HCO3 ABG O2 Saturation ABG Base Excess ABG Hemoglobin Oxyhemoglobin Sodium 148 H Potassium 5.7 H Chloride 107.7 H BUN 63 H Creatinine Glucose 135 H POC Glucose 147 H Lactic Acid Calcium Phosphorus 4.70 H Magnesium 3.20 H Ferritin AST Lactate Dehydrogenase C-Reactive Protein NT-Pro-B Natriuret Pep Albumin Triglycerides Urine WBC (Auto) Urine Creatinine Coronavirus (PCR) 03/11/21 11:35 WBC RBC Hgb Hct RDW Plt Count Seg Neuts % (Manual) Lymphocytes % (Manual) Monocytes % (Manual) Seg Neutrophils # Man Lymphocytes # (Manual) Monocytes # (Manual) D-Dimer ABG pH ABG pO2 ABG HCO3 ABG O2 Saturation ABG Base Excess ABG Hemoglobin Oxyhemoglobin Sodium Potassium Chloride BUN Creatinine Glucose POC Glucose 136 H Lactic Acid Calcium Phosphorus Magnesium Ferritin AST Lactate Dehydrogenase C-Reactive Protein NT-Pro-B Natriuret Pep Albumin Triglycerides Urine WBC (Auto) Urine Creatinine Coronavirus (PCR)
--- NOTE | 2021-03-11 18:36 | Progress Note ---
<MILLA PARDO - Last Filed: 03/11/21 18:31> Assessment and Plan Assessment and plan: This is a 61-year-old female with HTN, DM, DVT/PE on Eliquis admitted with acute hypoxic respiratory failure secondary to COVID-19 pneumonia Acute hypoxic respiratory failure secondary to Covid pneumonia, ARDS -S/p BiPAP and OptiFlow -Intubated on 03/05 -A.m. vent settings: CMV tidal volume 350, rate 30, PEEP 20, 100% FiO2 -See RT notes for titration -CCM consulted, appreciate recommendations -VAP bundle -SPO2 monitoring -AM CXR and ABG noted -PF ratio 0.813 -Sedated on Versed and propofol -RASS goal of -2 to -3 -Avoid delirium -Maintain sleep-wake cycle -SAT/SBT when appropriate Sepsis/COVID-19 pneumonia, leukocytosis, multifocal pneumonia -Infectious disease consulted, appreciate recommendations -> signed off 02/28 -Remains on vasopressor support with Levophed -MAP goal greater than 65 -S/p steroids for 10 days -S/p remdesivir for 10 days -S/p empiric antibiotics for 5 days -S/p Actemra -Isolation/droplet precautions -Vitamin C/vitamin D/zinc -Trend COVID-19 from 2 markers -Anticoagulation per protocol Acute kidney injury secondary to acute tubular necrosis -BUN/creatinine increased to 1.9/62 -S/p diuresis with Lasix x4 (120 mg total for visit) -S/p 4 L LR -Avoid nephrotoxic medications -Renally dose medications -Trend BMP Acute right lower leg DVT -Vascular surgery, appreciate input -D-dimer greater than 10,000 -CTA chest showed several small emboli in the segmental branches of the right lung -Vascular surgery recommended anticoagulation and supportive therapy -bilateral lower extremity Doppler ultrasound showed a chronic appearing DVT in the right posterior tibial vein -Therapeutic Lovenox -Trend CBC -Transfuse to hemoglobin less than 7 -Monitor for signs of bleeding Hyperkalemia -P.o Kayexalate -Trend potassium Hyponatremia, hypochloremia -Free water flush -Trend sodium h/o DM -SSI -Lantus, titrate as needed -Avoid hypoglycemia h/o HTN -Hold home antihypertensive regimen at this time -Blood pressure monitor per protocol DVT/GI prophylaxis -Lovenox subcu -PPI The high probability of a clinically significant, sudden or life threatening deterioration of the [CV/Resp] system(s) required my full and direct attention, intervention and personal management. The aggregate critical care time was [60] minutes. This time is in addition to time spent performing reported procedures but includes the following: [x] Data Review and interpretation [x] Patient assessment and monitoring of vital signs [x] Documentation [x] Medication orders and management Disposition Plan: icu Total Time Spent with Patient (Minutes): 60 History Interval history: This is a 61-year-old female with HTN, DM, left lower extremity DVT and pulmonary medicine on Eliquis who presented to emergency department on 02/17 with complaints of shortness of breath and generalized weakness for the past 5 days prior to arrival and states that she is tested positive for COVID-19 on February 10, 2021 via EMS. EMS stated that the patient's initial oxygen saturation was 75% on room air improved to 86% on nonrebreather. Work-up in the emergency department revealed leukocytosis and elevated BUN. Work-up in the ED included a CXR which showed severe diffuse bilateral patchy opacities. Patient was admitted to the hospitalist service with consults to ID, pulmonology, vascular surgery as a COVID-19 PUI, SARS, acute hypoxic respiratory failure and multifocal pneumonia. Hospital course to date: 02/19/2020: Patient on 50% Ventimask, Covid positive, Continue steroids ,May DC antibiotics, Respiratory assessment and treatment 02/19: Patient still hypoxic, encourage prone positioning, Pulmonary and ID consult. Will obtain CTA chest to evaluate for PE. Continue steroid therapy and oxygen therapy wean as tolerated. Continuous pulse oximeter. Plan discussed with the patient. 02/20: Patient seen and examined, remains on NRBM. awaiting CT CHEST WITH ANGIO Ordered yesterday. Encourage proning the patient says she was not proned yesterday discussed with nursing staff. Continue steroid therapy and remdesivir. Patient was seen by ID and as documented by ID"She is a candidate for Actemra based on CRp and O2 requirements. unfortunately we have not been getting procalcitonin results. -ordered Actemra once (afebrile, white count only mildly elevated in the setting of steroids)" Discussed plan of care with the nurse. Also called to updated the patients sister listed as NOK but got voice mail 02/21: Continue steroids, remdesivir, patient received 1 dose of Actemra but unable to get the second dose due to availability. CTA showed dense consolidation but no effusion and no pulmonary embolism patient does have a lower extremity DVT. Eliquis continues at full dose of 5 mg twice daily we will continue to monitor closely. Prognosis is guarded counseling for compliance for 15 minutes. 02/22: Patient clinically not improving much of switch the patient to Lovenox. Prognosis remains guarded. Continue anticoagulation due to DVT still suspicious of pulmonary embolism as a result we will obtain echocardiogram and vascular consult per pulmonary request which I agree with. I will also transfer the patient to stepdown unit for closer monitoring. 02/23: Vascular input noted agree the patient has subsegmental bibasilar pulmonary embolism but not enough to warrant intervention. Does not feel that this is contributing majority to her hypoxia. Nevertheless we will switch patient from Eliquis to Lovenox. Continue current management with remdesivir 02/24: Patient seen and examined, remains on anticoagulation, continue remedsivir and steroids. prone as tolerated, will give additional lasix today. Guarded prognosis. 02/25 A&O x 3, C/O mild cough with mucoid expectorant. Denies CP or shortness of breath. Remains on HFNC. pulmonary note and lab results reviewed 02/26: AOX3, proning on encounter. Encouraged continued movement while in bed and with assistance of care staff. Remains on HFNC. Last day of decadron today. 02/27: Patient encouraged to continue proning and remain active. Discussed with PT to come work with patient to mobilize. Will d/w CM for long term care pharmacist placement so lution. 02/28: Patient stated she would like to be a full code. Working with CM for LTAC placement. 03/01: Awaiting LTAC placement. Remains full code. Spoke with daughter Meghna who was updated on patient's case. 03/02: Sats in low 80s on hi lfow. Blood gas shows pao2 = 35.9. will start bipap, d/w IMCU RN who will notify RT. repeat abg in 1 hr. Poor prognosis. 03/03; Sats in low 90's on bipap. Repeat abg this AM demosntrates marginal improvement in PaO2. PCCM d/w daughter, patient and her daughter would like intubation should she continue to deteriorate. Prognosis remains poor. 03/04: de-escalated to HFNC 40/100 + venti. Will continue with bipap prn. Continue steroids. Dispo is still LTAC, placement is pending. 03/05: Resipratory distress this morning. Sats 69-70%. subsequently intubated. Now icu level of care. Family wants continue aggressive measures. Will follow [facility] recs. 03/06: Patient with ISH this am probably due to hypotension vs diuretic use, fluid bolus challenge this am. Urine lytes ordered. FWF added for hypernatremia. 03/07: Patient responded to fluid challenge, renal function improved, UOP better. Weaning down pressors, additional IVF bolus today, plan to wean down on pressors requirement. ABG improved today, wean down Fio2 as tolerated. Okay to start trickle feeds. 03/08: Renal function is back to baseline. Going down on pressor requirements, only on low dose Vaso and levophed today. Continue to wean pressors as tolerated. D/W CCm continue to wean Fio2 as tolerated, keep patient a RASS goal of -4 for now. Advance TF as tolerated per order. 03/09: Remains on the vent. Low SPO2 overnight, vent setting was increased. Off pressors this am. IV lasix per [facility] [place], repeat CXR in the am 03/10: Remains intubated and sedated, RASS -4. Back on pressors this am for low BP. This am CXR and ABG reviewed, oxygenation improved. Continue to wean pressors as tolerated. Vent adjustement per [facility] [place] 03/11: Kayexalate given hypernatremia, remains on Levophed, increasing free water flush. Hospitalist Physical - Constitutional Vitals: Temp Pulse Resp BP Pulse Ox 99.4 F 83 30 H 95/58 96 03/11/21 17:49 03/11/21 17:30 03/11/21 17:30 03/11/21 17:30 03/11/21 17:30 General appearance: Present: no acute distress, well-nourished, other (Intubated and Sedated) - EENT Eyes: Present: PERRL, EOM intact ENT: hearing intact, clear oral mucosa, dentition normal - Neck Neck: Present: normal ROM - Respiratory Respiratory effort: normal Respiratory: bilateral: diminished - Cardiovascular Rhythm: regular Heart Sounds: Present: S1 & S2. Absent: systolic murmur, diastolic murmur - Extremities Extremities: no ischemia, pulses intact, pulses symmetrical, No edema, normal temperature, normal color Peripheral Pulses: within normal limits - Abdominal General gastrointestinal: soft, non-tender, non-distended, normal bowel sounds - Integumentary Integumentary: Present: warm, dry - Psychiatric Psychiatric: other (sedated) - Neurologic Neurologic: other (sedated, intact cough/gag, PERRL) - Allied Health Allied health notes reviewed: nursing, RT, social work Results - Labs CBC & Chem 7: 03/11/21 04:00 03/11/21 04:00 Labs: Laboratory Last Values WBC 12.1 K/mm3 (4.5-11.0) H 03/11/21 04:00 RBC 3.30 M/mm3 (3.65-5.03) L 03/11/21 04:00 Hgb 9.5 gm/dl (10.1-14.3) L 03/11/21 04:00 Hct 30.6 % (30.3-42.9) 03/11/21 04:00 MCV 93 fl (79-97) 03/11/21 04:00 MCH 29 pg (28-32) 03/11/21 04:00 MCHC 31 % (30-34) 03/11/21 04:00 RDW 15.5 % (13.2-15.2) H 03/11/21 04:00 Plt Count 239 K/mm3 (140-440) 03/11/21 04:00 Add Manual Diff Complete 03/05/21 10:10 Total Counted 100 03/05/21 10:10 Seg Neuts % (Manual) 77.0 % (40.0-70.0) H 03/05/21 10:10 Band Neutrophils % 3.0 % 03/05/21 10:10 Lymphocytes % (Manual) 12.0 % (13.4-35.0) L 03/05/21 10:10 Reactive Lymphs % (Man) 2.0 % 03/05/21 10:10 Monocytes % (Manual) 5.0 % (0.0-7.3) 03/05/21 10:10 Eosinophils % (Manual) 1.0 % (0.0-4.3) 03/05/21 10:10 Basophils % (Manual) 0 % (0.0-1.8) 03/05/21 10:10 Metamyelocytes % 0 % 03/05/21 10:10 Myelocytes % 0 % 03/05/21 10:10 Promyelocytes % 0 % 03/05/21 10:10 Blast Cells % 0 % 03/05/21 10:10 Nucleated RBC % Not Reportable 03/05/21 10:10 Seg Neutrophils # Man 13.7 K/mm3 (1.8-7.7) H 03/05/21 10:10 Band Neutrophils # 0.5 K/mm3 03/05/21 10:10 Lymphocytes # (Manual) 2.1 K/mm3 (1.2-5.4) 03/05/21 10:10 Abs React Lymphs (Man) 0.4 K/mm3 03/05/21 10:10 Monocytes # (Manual) 0.9 K/mm3 (0.0-0.8) H 03/05/21 10:10 Eosinophils # (Manual) 0.2 K/mm3 (0.0-0.4) 03/05/21 10:10 Basophils # (Manual) 0.0 K/mm3 (0.0-0.1) 03/05/21 10:10 Metamyelocytes # 0.0 K/mm3 03/05/21 10:10 Myelocytes # 0.0 K/mm3 03/05/21 10:10 Promyelocytes # 0.0 K/mm3 03/05/21 10:10 Blast Cells # 0.0 K/mm3 03/05/21 10:10 WBC Morphology Not Reportable 03/05/21 10:10 Hypersegmented Neuts Not Reportable 03/05/21 10:10 Hyposegmented Neuts Not Reportable 03/05/21 10:10 Hypogranular Neuts Not Reportable 03/05/21 10:10 Smudge Cells Not Reportable 03/05/21 10:10 Toxic Granulation Not Reportable 03/05/21 10:10 Toxic Vacuolation Not Reportable 03/05/21 10:10 Dohle Bodies Not Reportable 03/05/21 10:10 Pelger-Huet Anomaly Not Reportable 03/05/21 10:10 Cindy Rods Not Reportable 03/05/21 10:10 Platelet Estimate Consistent w auto 03/05/21 10:10 Clumped Platelets Not Reportable 03/05/21 10:10 Plt Clumps, EDTA Not Reportable 03/05/21 10:10 Large Platelets 1+ 03/05/21 10:10 Giant Platelets Not Reportable 03/05/21 10:10 Platelet Satelliting Not Reportable 03/05/21 10:10 Plt Morphology Comment Not Reportable 03/05/21 10:10 RBC Morphology Not Reportable 03/05/21 10:10 Dimorphic RBCs Not Reportable 03/05/21 10:10 Polychromasia Few 03/05/21 10:10 Hypochromasia Not Reportable 03/05/21 10:10 Poikilocytosis Not Reportable 03/05/21 10:10 Anisocytosis 1+ 03/05/21 10:10 Microcytosis Not Reportable 03/05/21 10:10 Macrocytosis Not Reportable 03/05/21 10:10 Spherocytes Not Reportable 03/05/21 10:10 Pappenheimer Bodies Not Reportable 03/05/21 10:10 Sickle Cells Not Reportable 03/05/21 10:10 Target Cells Not Reportable 03/05/21 10:10 Tear Drop Cells Not Reportable 03/05/21 10:10 Ovalocytes Not Reportable 03/05/21 10:10 Helmet Cells Not Reportable 03/05/21 10:10 [place] Bodies Not Reportable 03/05/21 10:10 [place] Rings Not Reportable 03/05/21 10:10 Alicia Cells Not Reportable 03/05/21 10:10 Bite Cells Not Reportable 03/05/21 10:10 Crenated Cell Not Reportable 03/05/21 10:10 Elliptocytes Not Reportable 03/05/21 10:10 Acanthocytes (Spur) Not Reportable 03/05/21 10:10 Rouleaux Not Reportable 03/05/21 10:10 Hemoglobin C Crystals Not Reportable 03/05/21 10:10 Schistocytes Not Reportable 03/05/21 10:10 Malaria parasites Not Reportable 03/05/21 10:10 [place] Bodies Not Reportable 03/05/21 10:10 Hem Pathologist Commnt No 03/05/21 10:10 PT 13.9 Sec. (12.2-14.9) 02/17/21 14:34 INR 0.96 (0.87-1.13) 02/17/21 14:34 APTT 26.4 Sec. (24.2-36.6) 02/17/21 14:34 D-Dimer 3469.99 ng/mlDDU (0-234) H 03/01/21 05:12 ABG pH 7.247 pH Units (7.350-7.450) L 03/11/21 03:40 ABG pCO2 80.7 mm Hg 03/11/21 03:40 ABG pO2 123.9 mm Hg (80.0-90.0) H 03/11/21 03:40 ABG HCO3 34.4 mmol/L (20.0-26.0) H 03/11/21 03:40 ABG O2 Saturation 97.8 % (95.0-99.0) 03/11/21 03:40 ABG O2 Content 13.2 (0.0-44) 03/11/21 03:40 ABG Base Excess 5.4 mmol/L (-2.0-3.0) H 03/11/21 03:40 ABG Hemoglobin 9.7 gm/dl (12.0-16.0) L 03/11/21 03:40 ABG Carboxyhemoglobin 1.7 % (0.0-5.0) 03/11/21 03:40 ABG Methemoglobin 0.8 % (0.0-1.5) 03/11/21 03:40 Oxyhemoglobin 95.3 % (95.0-99.0) 03/11/21 03:40 FiO2 100 % 03/11/21 03:40 Sodium 148 mmol/L (137-145) H 03/11/21 04:00 Potassium 5.7 mmol/L (3.6-5.0) H 03/11/21 04:00 Chloride 107.7 mmol/L (98-107) H 03/11/21 04:00 Carbon Dioxide 30 mmol/L (22-30) 03/11/21 04:00 Anion Gap 16 mmol/L 03/11/21 04:00 BUN 63 mg/dL (7-17) H 03/11/21 04:00 Creatinine 0.9 mg/dL (0.6-1.2) 03/11/21 04:00 Estimated GFR > 60 ml/min 03/11/21 04:00 BUN/Creatinine Ratio 70 % 03/11/21 04:00 Glucose 135 mg/dL (65-100) H 03/11/21 04:00 POC Glucose 109 mg/dL (70-105) H 03/11/21 17:50 Lactic Acid 1.60 mmol/L (0.7-2.0) 02/17/21 18:39 Calcium 9.6 mg/dL (8.4-10.2) 03/11/21 04:00 Phosphorus 4.70 mg/dL (2.5-4.5) H 03/11/21 04:00 Magnesium 3.20 mg/dL (1.7-2.3) H 03/11/21 04:00 Ferritin 1526.0 ng/mL (10.0-200.0) H 03/01/21 05:12 Total Bilirubin 0.30 mg/dL (0.1-1.2) 03/05/21 10:10 Direct Bilirubin < 0.2 mg/dL (0-0.2) 02/17/21 14:34 Indirect Bilirubin 0.1 mg/dL 02/17/21 14:34 AST 38 units/L (5-40) 03/05/21 10:10 ALT 44 units/L (7-56) 03/05/21 10:10 Alkaline Phosphatase 78 units/L (35-129) 03/05/21 10:10 Lactate Dehydrogenase 385 units/L (91-180) H 03/01/21 05:12 C-Reactive Protein 11.20 mg/dL (0.00-1.30) H 03/01/21 05:12 NT-Pro-B Natriuret Pep 86.77 pg/mL (0-900) 02/20/21 16:34 Total Protein 7.7 g/dL (6.3-8.2) 03/05/21 10:10 Albumin 3.1 g/dL (3.9-5) L 03/05/21 10:10 Albumin/Globulin Ratio 0.7 % 03/05/21 10:10 Triglycerides 171 mg/dL (2-149) H 03/07/21 04:05 Procalcitonin 0.11 ng/mL (<0.15) 02/19/21 07:32 Urine Color Cassandra (Yellow) 02/18/21 Unknown Urine Turbidity Cloudy (Clear) 02/18/21 Unknown Urine pH 5.0 (5.0-7.0) 02/18/21 Unknown Ur Specific [place] 1.027 (1.003-1.030) 02/18/21 Unknown Urine Protein 100 mg/dl mg/dL (Negative) 02/18/21 Unknown Urine Glucose (UA) Neg mg/dL (Negative) 02/18/21 Unknown Urine Ketones Neg mg/dL (Negative) 02/18/21 Unknown Urine Blood Neg (Negative) 02/18/21 Unknown Urine Nitrite Neg (Negative) 02/18/21 Unknown Urine Bilirubin Neg (Negative) 02/18/21 Unknown Urine Urobilinogen < 2.0 mg/dL (<2.0) 02/18/21 Unknown Ur Leukocyte Esterase Neg (Negative) 02/18/21 Unknown Urine WBC (Auto) 7.0 /HPF (0.0-6.0) H 02/18/21 Unknown Urine RBC (Auto) 4.0 /HPF (0.0-6.0) 02/18/21 Unknown U Epithel Cells (Auto) 3.0 /HPF (0-13.0) 02/18/21 Unknown Urine Mucus 2+ /HPF 02/18/21 Unknown Urine Creatinine 247.7 mg/dL (0.1-20.0) H 03/06/21 09:00 Urine Sodium 25 mmol/L 03/06/21 09:00 Coronavirus (PCR) Positive (Negative) A 02/18/21 Unknown Head/IV: Voiding Method Indwelling Catheter Active Medications - Current Medications Current Medications: Generic Name Dose Route Start Last Admin Trade Name Freq PRN Reason Stop Dose Admin Acetaminophen 650 mg 02/17/21 23:58 03/11/21 04:27 Acetaminophen 325 Mg Tab PO 650 mg Q4H PRN Administration Pain MILD(1-3)/Fever >100.5/BROWN Dextrose 0 ml 03/11/21 10:46 Dextrose 10% *Hypoglycemia IV PRN PRN Hypoglycemia Enoxaparin Sodium 90 mg 03/08/21 22:00 03/11/21 09:19 Enoxaparin 100 Mg/1 Ml Inj 1 mg/kg (90 mg) 90 mg SUB-Q Administration Q12HR [facility] Protocol Famotidine 20 mg 03/11/21 22:00 Famotidine 20 Mg Tab FEEDTUBE BID DEISY Fentanyl 50 mcg 03/05/21 09:38 Fentanyl 100 Mcg/2 Ml Inj IV Q10MIN PRN ANALGESIA Gabapentin 400 mg 02/19/21 04:00 03/11/21 09:19 Gabapentin 400 Mg Cap PO 400 mg BID [facility] Administration Hydrophilic Ointment 1 applic 03/05/21 09:39 Lip Therapy Vaseline TP Q2HR PRN Dry Lips Propofol 1,000 mg in 100 mls @ 2.585 mls/hr 03/05/21 10:00 03/11/21 09:18 Diprivan 10 Mg/Ml IV 20 mcg/kg/min TITR DEISY 10.342 mls/hr Administration Protocol 5 MCG/KG/MIN Fentanyl Citrate 2,000 mcg in 100 mls @ 4.309 mls/hr 03/05/21 10:00 03/11/21 15:28 Fentanyl Drip Premix IV 4 mcg/kg/hr TITR DEISY 17.237 mls/hr Administration Protocol 1 MCG/KG/HR Midazolam HCl 100 mg/ Sodium 100 mls @ 1 mls/hr 03/05/21 11:00 03/10/21 09:35 Chloride IV 3 mg/hr TITR DEISY 3 mls/hr Administration Protocol 1 MG/HR NORepinephrine/NS 8 MG-250 ML 8 mg in 250 mls @ 3.75 mls/hr 03/05/21 10:15 03/11/21 03:23 Norepinephrine/Ns 8 Mg-250 Ml (Double Conc) IV 8 mcg/min TITRATE DEISY 15 mls/hr Administration Protocol 2 MCG/MIN Dexmedetomidine HCl 400 mcg/ 104 mls @ 4.482 mls/hr 03/05/21 14:00 Sodium Chloride IV TITRATE DEISY Protocol 0.2 MCG/KG/HR Vasopressin 20 unit/ Sodium 101 mls @ 9.09 mls/hr 03/06/21 06:00 03/08/21 10:30 Chloride IV 0 units/min TITR DEISY 0 mls/hr Titration Protocol 0.03 UNITS/MIN Insulin Glargine 10 units 03/02/21 22:00 03/10/21 21:17 Insulin Glargine 100 Units/Ml SUB-Q 10 units QHS [facility] Administration Insulin Human Lispro 0 unit 03/05/21 18:00 03/11/21 11:53 Insulin Lispro 100 Unit/Ml SUB-Q Not Given Q6HR [facility] Protocol Midazolam HCl 2 mg 03/05/21 10:11 03/05/21 10:53 Midazolam 2 Mg/2 Ml Inj IV 2 mg Q10MIN PRN Administration Sedation Multi-Ingred Cream/Lotion/Oil/Oint 1 applic 03/05/21 09:39 Mineral Oil/Petrolatum, White Ophth Oint 3.5 Gm OU Q4HR PRN Dry Eye(s) Ondansetron HCl 4 mg 02/17/21 23:58 Ondansetron 4 Mg/2 Ml Inj IV Q8H PRN Nausea And Vomiting Senna/Docusate Sodium 1 tab 03/05/21 10:00 03/11/21 09:19 Sennosides/Docusate Sodium 8.6/50 Mg Tab FEEDTUBE 1 tab BID DEISY Administration Sertraline HCl 50 mg 02/19/21 10:00 03/11/21 09:19 Sertraline 50 Mg Tab PO 50 mg QDAY DEISY Administration Sodium Chloride 10 ml 02/18/21 10:00 03/11/21 09:19 Sodium Chloride 0.9% 10 Ml Flush Syringe IV 10 ml BID DEISY Administration Sodium Chloride 10 ml 02/17/21 23:58 Sodium Chloride 0.9% 10 Ml Flush Syringe IV PRN PRN LINE FLUSH Sodium Chloride 10 ml 03/11/21 09:49 Sodium Chloride 0.9% 50 Ml Ivpb IV PRN PRN FLUSH Nutrition/Malnutrition Assess - Dietary Evaluation Nutrition/Malnutrition Findings: Nutrition Notes Start: 02/25/21 16:10 Freq: Status: Active Protocol: Document 03/11/21 16:53 ALEC (Rec: 03/11/21 17:06 ALEC [id number]) Nutrition Notes Initial or Follow up Brief Note Current Diet TF-Glucerna 1.2 Dagoberto @ 48 ml/hr (since D 03/08). Height 5 ft 6 in Weight 86.183 kg [place] Body Weight (kg) 59.09 BMI 30.7 Weight change and time frame No body weight change reported . Weight Status Obese Subjective/Other Information RD consult for routinr F/U on TF tolerance. Pt continues on mechanical ventilation. TF well tolerated, according to RN notes. Percent of energy/protein needs met: Prescribed Glucerna 1.2 Dagoberto @ 48 ml/hr provides for energy/ protein needs (1,390 Kcal/70 g ) during LOS, 100% Kcal; 75% AA. #2 Nutrition Diagnosis Inadequate oral intake Diagnosis Progress(for reassessment Continues documentation) #1 Nutrition Diagnosis Inadequate protein-energy intake Diagnosis Progress(for reassessment Continues documentation) Is patient on ventilator? Yes Is Patient Ambulatory and/or Out of Bed No REE-([facility]-confined to bed) 1737.120 Calculation Used for Recommendations 70-80% energy needs Additional Notes Energy: 6348-6364 kcal/day Protein: 1.3 g/kg adjBW: 94 g/ day Fluids: 1 ml/kcal, or as per MD. Nutrition Intervention Nutrition Support: Continue Glucerna 1.2 Dagoberto @ 50 ml/hr. Flush: 80 ml water Q 4 hr, or as per MD. Kcal 1,440 Protein (gm) 72 Carbohydrates (gm) 137 Fat (gm) 72 Fluid (mL) 966 Fiber (gm) 19 % RDI: 100% Kcal; 75% AA. Goal #1 Provide at least 75% of energy /protein needs through Enteral Feeding during LOS. Follow-Up By: 03/18/21 Additional Comments Continue monitoring TF tolerance and BM. <BAKARI MENDOZA - Last Filed: 03/15/21 09:39> Assessment and Plan Assessment and plan: I saw and evaluated the patient. I agree with the findings and the plan of care as documented in the Nurse Practitioner's~note, with the following corrections and additions. Hospitalist Physical - Constitutional Vitals: Temp Pulse Resp BP Pulse Ox 98.7 F 96 H 32 H 100/57 91 03/15/21 08:00 03/15/21 08:10 03/15/21 06:00 03/15/21 08:10 03/15/21 08:10 Results - Labs CBC & Chem 7: 03/15/21 04:30 03/15/21 04:30 Labs: Laboratory Last Values WBC 13.5 K/mm3 (4.5-11.0) H 03/15/21 04:30 RBC 2.99 M/mm3 (3.65-5.03) L 03/15/21 04:30 Hgb 8.4 gm/dl (10.1-14.3) L 03/15/21 04:30 Hct 27.9 % (30.3-42.9) L 03/15/21 04:30 MCV 93 fl (79-97) 03/15/21 04:30 MCH 29 pg (28-32) 03/15/21 04:30 MCHC 31 % (30-34) 03/15/21 04:30 RDW 15.6 % (13.2-15.2) H 03/15/21 04:30 Plt Count 297 K/mm3 (140-440) 03/15/21 04:30 Add Manual Diff Complete 03/05/21 10:10 Total Counted 100 03/05/21 10:10 Seg Neuts % (Manual) 77.0 % (40.0-70.0) H 03/05/21 10:10 Band Neutrophils % 3.0 % 03/05/21 10:10 Lymphocytes % (Manual) 12.0 % (13.4-35.0) L 03/05/21 10:10 Reactive Lymphs % (Man) 2.0 % 03/05/21 10:10 Monocytes % (Manual) 5.0 % (0.0-7.3) 03/05/21 10:10 Eosinophils % (Manual) 1.0 % (0.0-4.3) 03/05/21 10:10 Basophils % (Manual) 0 % (0.0-1.8) 03/05/21 10:10 Metamyelocytes % 0 % 03/05/21 10:10 Myelocytes % 0 % 03/05/21 10:10 Promyelocytes % 0 % 03/05/21 10:10 Blast Cells % 0 % 03/05/21 10:10 Nucleated RBC % Not Reportable 03/05/21 10:10 Seg Neutrophils # Man 13.7 K/mm3 (1.8-7.7) H 03/05/21 10:10 Band Neutrophils # 0.5 K/mm3 03/05/21 10:10 Lymphocytes # (Manual) 2.1 K/mm3 (1.2-5.4) 03/05/21 10:10 Abs React Lymphs (Man) 0.4 K/mm3 03/05/21 10:10 Monocytes # (Manual) 0.9 K/mm3 (0.0-0.8) H 03/05/21 10:10 Eosinophils # (Manual) 0.2 K/mm3 (0.0-0.4) 03/05/21 10:10 Basophils # (Manual) 0.0 K/mm3 (0.0-0.1) 03/05/21 10:10 Metamyelocytes # 0.0 K/mm3 03/05/21 10:10 Myelocytes # 0.0 K/mm3 03/05/21 10:10 Promyelocytes # 0.0 K/mm3 03/05/21 10:10 Blast Cells # 0.0 K/mm3 03/05/21 10:10 WBC Morphology Not Reportable 03/05/21 10:10 Hypersegmented Neuts Not Reportable 03/05/21 10:10 Hyposegmented Neuts Not Reportable 03/05/21 10:10 Hypogranular Neuts Not Reportable 03/05/21 10:10 Smudge Cells Not Reportable 03/05/21 10:10 Toxic Granulation Not Reportable 03/05/21 10:10 Toxic Vacuolation Not Reportable 03/05/21 10:10 Dohle Bodies Not Reportable 03/05/21 10:10 Pelger-Huet Anomaly Not Reportable 03/05/21 10:10 Cindy Rods Not Reportable 03/05/21 10:10 Platelet Estimate Consistent w auto 03/05/21 10:10 Clumped Platelets Not Reportable 03/05/21 10:10 Plt Clumps, EDTA Not Reportable 03/05/21 10:10 Large Platelets 1+ 03/05/21 10:10 Giant Platelets Not Reportable 03/05/21 10:10 Platelet Satelliting Not Reportable 03/05/21 10:10 Plt Morphology Comment Not Reportable 03/05/21 10:10 RBC Morphology Not Reportable 03/05/21 10:10 Dimorphic RBCs Not Reportable 03/05/21 10:10 Polychromasia Few 03/05/21 10:10 Hypochromasia Not Reportable 03/05/21 10:10 Poikilocytosis Not Reportable 03/05/21 10:10 Anisocytosis 1+ 03/05/21 10:10 Microcytosis Not Reportable 03/05/21 10:10 Macrocytosis Not Reportable 03/05/21 10:10 Spherocytes Not Reportable 03/05/21 10:10 Pappenheimer Bodies Not Reportable 03/05/21 10:10 Sickle Cells Not Reportable 03/05/21 10:10 Target Cells Not Reportable 03/05/21 10:10 Tear Drop Cells Not Reportable 03/05/21 10:10 Ovalocytes Not Reportable 03/05/21 10:10 Helmet Cells Not Reportable 03/05/21 10:10 [place] Bodies Not Reportable 03/05/21 10:10 [place] Rings Not Reportable 03/05/21 10:10 Alicia Cells Not Reportable 03/05/21 10:10 Bite Cells Not Reportable 03/05/21 10:10 Crenated Cell Not Reportable 03/05/21 10:10 Elliptocytes Not Reportable 03/05/21 10:10 Acanthocytes (Spur) Not Reportable 03/05/21 10:10 Rouleaux Not Reportable 03/05/21 10:10 Hemoglobin C Crystals Not Reportable 03/05/21 10:10 Schistocytes Not Reportable 03/05/21 10:10 Malaria parasites Not Reportable 03/05/21 10:10 [place] Bodies Not Reportable 03/05/21 10:10 Hem Pathologist Commnt No 03/05/21 10:10 PT 13.9 Sec. (12.2-14.9) 02/17/21 14:34 INR 0.96 (0.87-1.13) 02/17/21 14:34 APTT 26.4 Sec. (24.2-36.6) 02/17/21 14:34 D-Dimer 3469.99 ng/mlDDU (0-234) H 03/01/21 05:12 ABG pH 7.237 (7.320-7.450) L 03/15/21 04:00 POC ABG pCO2 80.6 mmHg (32.0-48.0) H 03/15/21 04:00 ABG pCO2 75.2 mm Hg 03/14/21 03:44 POC ABG pO2 71.8 mmHg (83-108) L 03/15/21 04:00 ABG pO2 75.4 mm Hg (80.0-90.0) L 03/14/21 03:44 POC ABG HCO3 33.5 03/15/21 04:00 ABG HCO3 36.7 mmol/L (20.0-26.0) H 03/14/21 03:44 ABG O2 Saturation 93.3 (0-100) 03/15/21 04:00 ABG O2 Content 10.9 (0.0-44) 03/14/21 03:44 POC ABG Base Excess 3.3 03/15/21 04:00 ABG Base Excess 8.9 mmol/L (-2.0-3.0) H 03/14/21 03:44 ABG Hemoglobin 14.4 (12.0-17.5) 03/15/21 04:00 ABG Oxyhemoglobin 91.7 (94-98) L 03/15/21 04:00 ABG Carboxyhemoglobin 1.7 % (0.0-5.0) 03/14/21 03:44 ABG Methemoglobin 0.1 (0.0-1.5) 03/15/21 04:00 Oxyhemoglobin 93.6 % (95.0-99.0) L 03/14/21 03:44 Carboxyhemoglobin 1.6 (0.5-1.5) H 03/15/21 04:00 FiO2 80 % 03/14/21 03:44 FiO2 % 80.0 03/15/21 04:00 Sodium 143 mmol/L (137-145) 03/15/21 04:30 Potassium 4.5 mmol/L (3.6-5.0) 03/15/21 04:30 Chloride 103.2 mmol/L (98-107) 03/15/21 04:30 Carbon Dioxide 32 mmol/L (22-30) H 03/15/21 04:30 Anion Gap 12 mmol/L 03/15/21 04:30 BUN 68 mg/dL (7-17) H 03/15/21 04:30 Creatinine 0.9 mg/dL (0.6-1.2) 03/15/21 04:30 Estimated GFR > 60 ml/min 03/15/21 04:30 BUN/Creatinine Ratio 76 % 03/15/21 04:30 Glucose 128 mg/dL (65-100) H 03/15/21 04:30 POC Glucose 111 mg/dL (70-105) H 03/15/21 05:18 Lactic Acid 1.60 mmol/L (0.7-2.0) 02/17/21 18:39 Calcium 9.6 mg/dL (8.4-10.2) 03/15/21 04:30 Phosphorus 4.70 mg/dL (2.5-4.5) H 03/14/21 07:17 Magnesium 2.80 mg/dL (1.7-2.3) H 03/14/21 07:17 Ferritin 1526.0 ng/mL (10.0-200.0) H 03/01/21 05:12 Total Bilirubin 0.30 mg/dL (0.1-1.2) 03/05/21 10:10 Direct Bilirubin < 0.2 mg/dL (0-0.2) 02/17/21 14:34 Indirect Bilirubin 0.1 mg/dL 02/17/21 14:34 AST 38 units/L (5-40) 03/05/21 10:10 ALT 44 units/L (7-56) 03/05/21 10:10 Alkaline Phosphatase 78 units/L (35-129) 03/05/21 10:10 Lactate Dehydrogenase 385 units/L (91-180) H 03/01/21 05:12 C-Reactive Protein 11.20 mg/dL (0.00-1.30) H 03/01/21 05:12 NT-Pro-B Natriuret Pep 86.77 pg/mL (0-900) 02/20/21 16:34 Total Protein 7.7 g/dL (6.3-8.2) 03/05/21 10:10 Albumin 3.1 g/dL (3.9-5) L 03/05/21 10:10 Albumin/Globulin Ratio 0.7 % 03/05/21 10:10 Triglycerides 130 mg/dL (2-149) 03/12/21 04:30 Procalcitonin 0.11 ng/mL (<0.15) 02/19/21 07:32 Urine Color Cassandra (Yellow) 02/18/21 Unknown Urine Turbidity Cloudy (Clear) 02/18/21 Unknown Urine pH 5.0 (5.0-7.0) 02/18/21 Unknown Ur Specific [place] 1.027 (1.003-1.030) 02/18/21 Unknown Urine Protein 100 mg/dl mg/dL (Negative) 02/18/21 Unknown Urine Glucose (UA) Neg mg/dL (Negative) 02/18/21 Unknown Urine Ketones Neg mg/dL (Negative) 02/18/21 Unknown Urine Blood Neg (Negative) 02/18/21 Unknown Urine Nitrite Neg (Negative) 02/18/21 Unknown Urine Bilirubin Neg (Negative) 02/18/21 Unknown Urine Urobilinogen < 2.0 mg/dL (<2.0) 02/18/21 Unknown Ur Leukocyte Esterase Neg (Negative) 02/18/21 Unknown Urine WBC (Auto) 7.0 /HPF (0.0-6.0) H 02/18/21 Unknown Urine RBC (Auto) 4.0 /HPF (0.0-6.0) 02/18/21 Unknown U Epithel Cells (Auto) 3.0 /HPF (0-13.0) 02/18/21 Unknown Urine Mucus 2+ /HPF 02/18/21 Unknown Urine Creatinine 247.7 mg/dL (0.1-20.0) H 03/06/21 09:00 Urine Sodium 25 mmol/L 03/06/21 09:00 Coronavirus (PCR) Positive (Negative) A 02/18/21 Unknown Head/IV: Voiding Method Indwelling Catheter Active Medications - Current Medications Current Medications: Generic Name Dose Route Start Last Admin Trade Name Freq PRN Reason Stop Dose Admin Acetaminophen 650 mg 02/17/21 23:58 03/11/21 04:27 Acetaminophen 325 Mg Tab PO 650 mg Q4H PRN Administration Pain MILD(1-3)/Fever >100.5/BROWN Dextrose 0 ml 03/11/21 10:46 Dextrose 10% *Hypoglycemia IV PRN PRN Hypoglycemia Enoxaparin Sodium 90 mg 03/08/21 22:00 03/14/21 22:08 Enoxaparin 100 Mg/1 Ml Inj 1 mg/kg (90 mg) 90 mg SUB-Q Administration Q12HR DEISY Protocol Famotidine 20 mg 03/11/21 22:00 03/14/21 22:08 Famotidine 20 Mg Tab FEEDTUBE 20 mg BID DEISY Administration Fentanyl 50 mcg 03/05/21 09:38 03/12/21 17:58 Fentanyl 100 Mcg/2 Ml Inj IV 50 mcg Q10MIN PRN Administration ANALGESIA Gabapentin 400 mg 02/19/21 04:00 03/14/21 22:08 Gabapentin 400 Mg Cap PO 400 mg BID DEISY Administration Hydrophilic Ointment 1 applic 03/05/21 09:39 Lip Therapy Vaseline TP Q2HR PRN Dry Lips Propofol 1,000 mg in 100 mls @ 2.585 mls/hr 03/05/21 10:00 03/15/21 04:23 Diprivan 10 Mg/Ml IV 20 mcg/kg/min TITR DEISY 10.342 mls/hr Administration Protocol 5 MCG/KG/MIN Fentanyl Citrate 2,000 mcg in 100 mls @ 4.309 mls/hr 03/05/21 10:00 03/15/21 04:22 Fentanyl Drip Premix IV 3 mcg/kg/hr TITR DEISY 12.927 mls/hr Administration Protocol 1 MCG/KG/HR Midazolam HCl 100 mg/ Sodium 100 mls @ 1 mls/hr 03/05/21 11:00 03/14/21 04:02 Chloride IV 3 mg/hr TITR DEISY 3 mls/hr Administration Protocol 1 MG/HR NORepinephrine/NS 8 MG-250 ML 8 mg in 250 mls @ 3.75 mls/hr 03/05/21 10:15 03/14/21 19:37 Norepinephrine/Ns 8 Mg-250 Ml (Double Conc) IV 2 mcg/min TITRATE DEISY 3.75 mls/hr Administration Protocol 2 MCG/MIN Dexmedetomidine HCl 400 mcg/ 104 mls @ 4.482 mls/hr 03/05/21 14:00 Sodium Chloride IV TITRATE DEISY Protocol 0.2 MCG/KG/HR Vasopressin 20 unit/ Sodium 101 mls @ 9.09 mls/hr 03/06/21 06:00 03/08/21 10:30 Chloride IV 0 units/min TITR DEISY 0 mls/hr Titration Protocol 0.03 UNITS/MIN Insulin Glargine 10 units 03/02/21 22:00 03/14/21 22:08 Insulin Glargine 100 Units/Ml SUB-Q 10 units QHS [facility] Administration Insulin Human Lispro 0 unit 03/05/21 18:00 03/15/21 00:36 Insulin Lispro 100 Unit/Ml SUB-Q Not Given Q6HR [facility] Protocol Midazolam HCl 2 mg 03/05/21 10:11 03/05/21 10:53 Midazolam 2 Mg/2 Ml Inj IV 2 mg Q10MIN PRN Administration Sedation Multi-Ingred Cream/Lotion/Oil/Oint 1 applic 03/05/21 09:39 Mineral Oil/Petrolatum, White Ophth Oint 3.5 Gm OU Q4HR PRN Dry Eye(s) Ondansetron HCl 4 mg 02/17/21 23:58 Ondansetron 4 Mg/2 Ml Inj IV Q8H PRN Nausea And Vomiting Senna/Docusate Sodium 1 tab 03/05/21 10:00 03/14/21 22:09 Sennosides/Docusate Sodium 8.6/50 Mg Tab FEEDTUBE 1 tab BID DEISY Administration Sertraline HCl 50 mg 02/19/21 10:00 03/14/21 09:49 Sertraline 50 Mg Tab PO 50 mg QDAY DEISY Administration Sodium Chloride 10 ml 02/18/21 10:00 03/14/21 22:07 Sodium Chloride 0.9% 10 Ml Flush Syringe IV 10 ml BID DEISY Administration Sodium Chloride 10 ml 02/17/21 23:58 Sodium Chloride 0.9% 10 Ml Flush Syringe IV PRN PRN LINE FLUSH Sodium Chloride 10 ml 03/11/21 09:49 Sodium Chloride 0.9% 50 Ml Ivpb IV PRN PRN FLUSH Nutrition/Malnutrition Assess - Dietary Evaluation Nutrition/Malnutrition Findings: Nutrition Notes Start: 02/25/21 16:10 Freq: Status: Active Protocol: Document 03/11/21 16:53 ALEC (Rec: 03/11/21 17:06 ALEC [id number]) Nutrition Notes Initial or Follow up Brief Note Current Diet TF-Glucerna 1.2 Dagoberto @ 48 ml/hr (since D 03/08). Height 5 ft 6 in Weight 86.183 kg [place] Body Weight (kg) 59.09 BMI 30.7 Weight change and time frame No body weight change reported . Weight Status Obese Subjective/Other Information RD consult for routinr F/U on TF tolerance. Pt continues on mechanical ventilation. TF well tolerated, according to RN notes. Percent of energy/protein needs met: Prescribed Glucerna 1.2 Dagoberto @ 48 ml/hr provides for energy/ protein needs (1,390 Kcal/70 g ) during LOS, 100% Kcal; 75% AA. #2 Nutrition Diagnosis Inadequate oral intake Diagnosis Progress(for reassessment Continues documentation) #1 Nutrition Diagnosis Inadequate protein-energy intake Diagnosis Progress(for reassessment Continues documentation) Is patient on ventilator? Yes Is Patient Ambulatory and/or Out of Bed No [facility] 1737.120 Calculation Used for Recommendations 70-80% energy needs Additional Notes Energy: 9545-8356 kcal/day Protein: 1.3 g/kg adjBW: 94 g/ day Fluids: 1 ml/kcal, or as per MD. Nutrition Intervention Nutrition Support: Continue Glucerna 1.2 Dagoberto @ 50 ml/hr. Flush: 80 ml water Q 4 hr, or as per MD. Kcal 1,440 Protein (gm) 72 Carbohydrates (gm) 137 Fat (gm) 72 Fluid (mL) 966 Fiber (gm) 19 % RDI: 100% Kcal; 75% AA. Goal #1 Provide at least 75% of energy /protein needs through Enteral Feeding during LOS. Follow-Up By: 03/18/21 Additional Comments Continue monitoring TF tolerance and BM.
[2021-03-11] MEDS: MIDAZOLAM 100 MG in SODIUM CHLORIDE 0.9% 80 ML IV SCH (19:48)
[2021-03-11] MEDS: FAMOTIDINE 20 MG TAB FEEDTUBE SCH (21:32)
[2021-03-11] MEDS: INSULIN GLARGINE 100 UNITS/ML SUB-Q SCH (21:32)
[2021-03-12] MEDS: INSULIN LISPRO 100 UNIT/ML SUB-Q SCH ×4 (01:01→18:43)
[2021-03-12] MEDS: FREE WATER PO SCH ×6 (02:12→22:05)
[2021-03-12] MEDS: fentaNYL DRIP Premix 2,000 MCG/100 ML BAG IV SCH ×4 (03:55→22:02)
[2021-03-12 06:13] LABS: Hematocrit 29.5 % (30.3-42.9); Hemoglobin 9.1 gm/dl (10.1-14.3); Mean Corpuscular HGB Conc 31 % (30-34); Mean Corpuscular Volume 93 fl (79-97); Platelet Count 230 K/mm3 (140-440); Red Blood Count 3.16 M/mm3 (3.65-5.03); Red Cell Distribution Width 16.1 % (13.2-15.2)
[2021-03-12 06:25] LABS: BUN/Creatinine Ratio 76; Blood Urea Nitrogen 61 mg/dL (7-17); Calcium 9.5 mg/dL (8.4-10.2); Hemolysis Index 8
[2021-03-12] MEDS ORDERED: CALC GLUCONATE 1GM/NS 100 ML 1 GM/100 ML BAG IV ONE (07:10)
[2021-03-12] MEDS ORDERED: CALCIUM GLUCONATE 1,000 MG in SODIUM CHLORIDE 0.9% 100 ML IV ONE (07:30)
[2021-03-12] MEDS ORDERED: INSULIN REGULAR, HUMAN 100 UNITS/1 ML IV ONE (07:30)
[2021-03-12] MEDS ORDERED: DEXTROSE 50% IN WATER (25GM) 50 ML SYRINGE IV ONE (07:30)
[2021-03-12] MEDS: ENOXAPARIN 100 MG/1 ML INJ SUB-Q SCH ×2 (08:10→22:03)
[2021-03-12] MEDS: SENNOSIDES/DOCUSATE SODIUM 8.6/50 MG TAB FEEDTUBE SCH ×3 (08:10→22:06)
[2021-03-12] MEDS: SODIUM POLYSTYRENE 15 GM/60 ML ORAL LIQD PO SCH ×2 (08:10→12:49)
[2021-03-12] MEDS: FAMOTIDINE 20 MG TAB FEEDTUBE SCH ×2 (08:10→22:04)
[2021-03-12] MEDS: SERTRALINE 50 MG TAB PO SCH (08:10)
[2021-03-12] MEDS: GABAPENTIN 400 MG CAP PO SCH ×2 (08:10→22:04)
[2021-03-12] MEDS ORDERED: DEXTROSE 50% IN WATER (25GM) 50 ML SYRINGE IV SCH (09:00)
--- NOTE | 2021-03-12 09:46 | Progress Note ---
Assessment and Plan 61 y/o female with acute respiratory failure secondary to COVID 19 pneumonia. 03/12/21: K is elevated again today. No evidence of bleeding. Plateletes did drop but still good levels. Will monitor. Wean levophed as tolerated. Continues to make good urine. Guarded to poor prognosis. 03/11/21: K is elevated but renal function and urine output remains stable. Maintain current level of sedation. On Levophed, may need to give more volume. Ok with weaning FiO2 for sats >88% and or PaO2 of 55 and greater. Unable to prone at this time. Guarded prognosis. 03/08/21: Continue to monitor urine output and function. Consider more fluid today. Maintain current level of sedation. Wean FiO2 for sats >88% and or PaO2 >55. Prognosis still remains guarded. Please do not wean PEEP until FiO2 as at 45-50% 03/07/21: Continue supportive measures. Monitor urine output and function. Labs are better today and she did put out more urine with fluid bolus so will give again today. Overall prognosis remains extremely guarded. 03/06/21: Overall clinical state is worsening. Now with difficulty ventilation and with improved ventilation comes a compromise in oxygenation. Newest concern is renal function which is worsening. If patient requires dialysis then mortality increases and prognosis worsens. If requires HD, prognosis is very very guarded to poor. 03/05/21: Added versed drip to fent and Diprovan to keep RASS at -4. Will also order precedex in the event it is needed. Repeat ABG somewhat improved but increased RR. Must watch Peak Pressures. attempting to do low lung volume protective ventilator strategy. Patient has actually been off steroids for some time. Will not restart as of yet. Unable to prone. Guarded prognosis. This discussion was had over the weekend with the daughter when I thought we would have to intubate then. Explained that vent is not therapy but only something to give her lungs time to rest, if possible to see if they can recover. Prognosis is very guarded to poor. 03/04/21: Continue supportive care between HFNC and bipap therapy. Steroids. Positive reinforcement. 03/03/21: Long discussion at bedside with patient. Today she stated that she did not want to be intubated. I attempted to call her daughter while I was in the room with the patient but no answer. She will remain full code as she has said this in the past and then revoked after speaking with the daughter ( which is why i called her again this morning). Continue bipap and monitor. Guarded prognosis. 03/02/21: Prone if able. Continue steroids. Negative fluid balance if possible. Prognosis remains very guarded 02/28/21: Prone. Steroids. Net negative fluid balance if possible. Guarded prognosis. 02/27/21: Full code status. Prone as much as possible during the day and sleep prone at night. Patient may require intubation ultimately. Guarded prognosis. 02/26/21: Prone if possible. Continue anticoagulation for DVT. Steroids. Net negative fluid balance. 02/25/21: Long discussion at bedside with patient, whom per her, she has discussed this with her daughter. She does no want an endotracheal tube. She does not want chest compression and she does not want shocks. I did not ask about vasopressors. The patient is awake and alert and oriented. This needs to be addressed by primary team as well an if confirmed, I have no problem with cosigning AND order. Continue supportive measures for now. Guarded to poor prognosis. 02/21/21: BNP normal. Still would attempt to achieve net negative fluid balance daily. Continue Remdesivir and steroids. Prone if patient willing. Follow up CTA results. Discussed with IMS, may change anticoagulation but awaiting official ready on CTA. Guareded prognosis. 02/20/21: Follow up CTA results. Will send BNP. Continue steroids and Rem desivir. Guarded prognosis. Prone if able, very pertinent to do this. 1. self proning as tolerated during the day and prone at night while sleeping 2. Steroids and Remdesivir 3. Daily net negative volume state 4. Consider checking BNP and echo to make sure no edema on this film 5. Agree with empiric anticoagulation given elevated D-Dimer Guarded prognosis. Will continue to follow. Subjective Date of service: 03/12/21 Principal diagnosis: COVID pneumonia Interval history: No acute events. Sedated and on the vent. still no high FiO2 and PEEP at 20 Objective Vital Signs - 12hr 03/11/21 03/11/21 03/11/21 22:00 22:01 22:15 Temperature Pulse Rate 95 H 94 H 94 H Pulse Rate [ From Monitor] Respiratory 29 H 31 H Rate Blood Pressure 99/62 99/62 98/60 O2 Sat by Pulse 91 94 95 Oximetry 03/11/21 03/11/21 03/11/21 22:30 22:45 23:00 Temperature Pulse Rate 93 H 94 H 93 H Pulse Rate [ From Monitor] Respiratory 31 H 30 H 30 H Rate Blood Pressure 102/62 100/60 100/61 O2 Sat by Pulse 94 94 94 Oximetry 03/11/21 03/11/21 03/11/21 23:15 23:30 23:45 Temperature Pulse Rate 94 H 94 H 93 H Pulse Rate [ From Monitor] Respiratory 31 H 30 H 30 H Rate Blood Pressure 101/59 100/58 98/59 O2 Sat by Pulse 95 94 94 Oximetry 03/11/21 03/12/21 03/12/21 23:49 00:00 00:15 Temperature 98.1 F Pulse Rate 93 H 92 H 92 H Pulse Rate [ 92 H From Monitor] Respiratory 31 H 31 H 30 H Rate Blood Pressure 98/59 100/60 104/61 O2 Sat by Pulse 95 94 94 Oximetry 03/12/21 03/12/21 03/12/21 00:30 00:45 01:00 Temperature Pulse Rate 92 H 91 H 90 Pulse Rate [ From Monitor] Respiratory 30 H 31 H 30 H Rate Blood Pressure 106/57 98/56 100/61 O2 Sat by Pulse 95 94 94 Oximetry 03/12/21 03/12/21 03/12/21 01:15 01:30 01:45 Temperature Pulse Rate 90 90 90 Pulse Rate [ From Monitor] Respiratory 30 H 30 H 31 H Rate Blood Pressure 97/59 98/60 100/61 O2 Sat by Pulse 93 92 Oximetry 03/12/21 03/12/21 03/12/21 02:00 02:15 02:30 Temperature Pulse Rate 91 H 91 H 92 H Pulse Rate [ From Monitor] Respiratory 30 H 30 H 30 H Rate Blood Pressure 101/61 102/64 102/62 O2 Sat by Pulse 93 93 93 Oximetry 03/12/21 03/12/21 03/12/21 02:45 03:00 03:15 Temperature Pulse Rate 93 H 93 H 93 H Pulse Rate [ From Monitor] Respiratory 30 H 30 H 31 H Rate Blood Pressure 98/63 102/65 110/68 O2 Sat by Pulse 93 91 94 Oximetry 03/12/21 03/12/21 03/12/21 03:30 03:45 03:47 Temperature 99.3 F Pulse Rate 93 H 93 H Pulse Rate [ From Monitor] Respiratory 29 H 26 H Rate Blood Pressure 104/64 102/62 O2 Sat by Pulse 94 93 Oximetry 03/12/21 03/12/21 03/12/21 04:00 04:15 04:30 Temperature 99.3 F Pulse Rate 92 H 92 H 91 H Pulse Rate [ 92 H From Monitor] Respiratory 26 H 31 H 30 H Rate Blood Pressure 106/60 96/60 92/56 O2 Sat by Pulse 93 92 92 Oximetry 03/12/21 03/12/21 03/12/21 04:45 05:00 05:15 Temperature Pulse Rate 91 H 89 88 Pulse Rate [ From Monitor] Respiratory 30 H 29 H 30 H Rate Blood Pressure 90/56 97/64 89/55 O2 Sat by Pulse 94 93 94 Oximetry 03/12/21 03/12/21 03/12/21 05:30 05:45 06:00 Temperature Pulse Rate 88 88 88 Pulse Rate [ From Monitor] Respiratory 30 H 30 H 30 H Rate Blood Pressure 97/56 94/56 95/57 O2 Sat by Pulse 92 93 93 Oximetry 03/12/21 03/12/21 03/12/21 06:15 06:30 06:45 Temperature Pulse Rate 88 88 87 Pulse Rate [ From Monitor] Respiratory 30 H 30 H 30 H Rate Blood Pressure 92/60 95/57 92/56 O2 Sat by Pulse 93 93 94 Oximetry 03/12/21 03/12/21 03/12/21 07:00 07:15 07:30 Temperature Pulse Rate 87 87 87 Pulse Rate [ From Monitor] Respiratory 30 H 30 H 30 H Rate Blood Pressure 88/57 93/58 92/54 O2 Sat by Pulse 94 92 94 Oximetry 03/12/21 03/12/21 03/12/21 07:45 08:00 08:15 Temperature Pulse Rate 86 88 88 Pulse Rate [ From Monitor] Respiratory 30 H 30 H 30 H Rate Blood Pressure 94/56 89/55 95/56 O2 Sat by Pulse 94 93 94 Oximetry 03/12/21 03/12/21 03/12/21 08:20 08:21 08:30 Temperature Pulse Rate 87 88 87 Pulse Rate [ From Monitor] Respiratory 30 H Rate Blood Pressure 92/51 90/53 O2 Sat by Pulse 93 94 Oximetry 03/12/21 08:45 Temperature Pulse Rate 87 Pulse Rate [ From Monitor] Respiratory 30 H Rate Blood Pressure 92/51 O2 Sat by Pulse 93 Oximetry Constitutional: alert, other (on hiflo) ENT: oropharynx moist Neck: supple Ascultation: Bilateral: diminished breath sounds Cardiovascular: regular rate and rhythm Gastrointestinal: normoactive bowel sounds, soft, non-tender, non-distended Integumentary: normal Extremities: no cyanosis CBC and BMP: 03/13/21 07:00 03/13/21 07:00 ABG, PT/INR, D-dimer: ABG ABG pH 7.261 (7.320-7.450) L 03/12/21 04:06 POC ABG pCO2 79.6 mmHg (32.0-48.0) H 03/12/21 04:06 ABG pCO2 80.7 mm Hg 03/11/21 03:40 POC ABG pO2 105.2 mmHg (83-108) 03/12/21 04:06 ABG pO2 123.9 mm Hg (80.0-90.0) H 03/11/21 03:40 POC ABG HCO3 35.0 03/12/21 04:06 ABG O2 Saturation 97.0 (0-100) 03/12/21 04:06 PT/INR, D-dimer PT 13.9 Sec. (12.2-14.9) 02/17/21 14:34 INR 0.96 (0.87-1.13) 02/17/21 14:34 D-Dimer 3469.99 ng/mlDDU (0-234) H 03/01/21 05:12 Abnormal lab findings: Abnormal Labs 02/17/21 02/17/21 02/17/21 14:34 14:34 14:34 WBC 11.7 H RBC Hgb Hct 44.9 H RDW 15.6 H Plt Count Seg Neuts % (Manual) Lymphocytes % (Manual) 9.0 L Monocytes % (Manual) 12.0 H Seg Neutrophils # Man 8.2 H Lymphocytes # (Manual) 1.1 L Monocytes # (Manual) 1.4 H D-Dimer ABG pH POC ABG pCO2 ABG pO2 ABG HCO3 ABG O2 Saturation ABG Base Excess ABG Hemoglobin Oxyhemoglobin Sodium Potassium 3.5 L Chloride Carbon Dioxide BUN 27 H Creatinine Glucose 150 H POC Glucose Lactic Acid 2.90 H* Calcium Phosphorus Magnesium Ferritin AST Lactate Dehydrogenase C-Reactive Protein NT-Pro-B Natriuret Pep Albumin Triglycerides Urine WBC (Auto) Urine Creatinine Coronavirus (PCR) 02/17/21 02/18/21 02/18/21 14:34 07:48 07:48 WBC 12.0 H RBC Hgb Hct RDW 15.4 H Plt Count Seg Neuts % (Manual) 76.0 H Lymphocytes % (Manual) Monocytes % (Manual) Seg Neutrophils # Man 9.1 H Lymphocytes # (Manual) Monocytes # (Manual) D-Dimer ABG pH POC ABG pCO2 ABG pO2 ABG HCO3 ABG O2 Saturation ABG Base Excess ABG Hemoglobin Oxyhemoglobin Sodium Potassium Chloride Carbon Dioxide BUN 36 H Creatinine Glucose 133 H POC Glucose Lactic Acid Calcium Phosphorus Magnesium Ferritin AST 57 H Lactate Dehydrogenase C-Reactive Protein NT-Pro-B Natriuret Pep 1619 H Albumin 3.3 L Triglycerides Urine WBC (Auto) Urine Creatinine Coronavirus (PCR) 02/18/21 02/18/21 02/19/21 Unknown Unknown 07:32 WBC RBC Hgb Hct RDW Plt Count Seg Neuts % (Manual) Lymphocytes % (Manual) Monocytes % (Manual) Seg Neutrophils # Man Lymphocytes # (Manual) Monocytes # (Manual) D-Dimer ABG pH POC ABG pCO2 ABG pO2 ABG HCO3 ABG O2 Saturation ABG Base Excess ABG Hemoglobin Oxyhemoglobin Sodium 148 H D Potassium Chloride Carbon Dioxide BUN 41 H Creatinine Glucose 123 H POC Glucose Lactic Acid Calcium Phosphorus Magnesium Ferritin AST 57 H Lactate Dehydrogenase C-Reactive Protein NT-Pro-B Natriuret Pep Albumin 3.7 L Triglycerides Urine WBC (Auto) 7.0 H Urine Creatinine Coronavirus (PCR) Positive A 02/19/21 02/19/21 02/20/21 07:32 08:43 05:00 WBC RBC Hgb Hct RDW Plt Count Seg Neuts % (Manual) Lymphocytes % (Manual) Monocytes % (Manual) Seg Neutrophils # Man Lymphocytes # (Manual) Monocytes # (Manual) D-Dimer > 14904 H ABG pH POC ABG pCO2 ABG pO2 ABG HCO3 ABG O2 Saturation ABG Base Excess ABG Hemoglobin Oxyhemoglobin Sodium 147 H Potassium Chloride 107.6 H Carbon Dioxide BUN 36 H Creatinine Glucose POC Glucose Lactic Acid Calcium Phosphorus Magnesium Ferritin AST Lactate Dehydrogenase C-Reactive Protein 10.90 H NT-Pro-B Natriuret Pep Albumin 3.3 L Triglycerides Urine WBC (Auto) Urine Creatinine Coronavirus (PCR) 02/20/21 02/21/21 02/21/21 18:46 04:44 04:44 WBC 16.7 H RBC Hgb Hct RDW Plt Count Seg Neuts % (Manual) Lymphocytes % (Manual) Monocytes % (Manual) Seg Neutrophils # Man Lymphocytes # (Manual) Monocytes # (Manual) D-Dimer ABG pH 7.453 H POC ABG pCO2 ABG pO2 55.0 L ABG HCO3 26.6 H ABG O2 Saturation 88.3 L ABG Base Excess ABG Hemoglobin Oxyhemoglobin 86.8 L Sodium Potassium Chloride Carbon Dioxide BUN 26 H Creatinine Glucose 111 H POC Glucose Lactic Acid Calcium Phosphorus Magnesium Ferritin AST Lactate Dehydrogenase C-Reactive Protein NT-Pro-B Natriuret Pep Albumin 3.4 L Triglycerides Urine WBC (Auto) Urine Creatinine Coronavirus (PCR) 02/22/21 02/23/21 02/23/21 04:47 09:05 09:05 WBC 19.3 H RBC 5.29 H Hgb 15.2 H Hct 47.7 H D RDW Plt Count Seg Neuts % (Manual) 82.0 H Lymphocytes % (Manual) 6.0 L Monocytes % (Manual) Seg Neutrophils # Man 15.8 H Lymphocytes # (Manual) Monocytes # (Manual) 1.0 H D-Dimer ABG pH POC ABG pCO2 ABG pO2 ABG HCO3 ABG O2 Saturation ABG Base Excess ABG Hemoglobin Oxyhemoglobin Sodium Potassium Chloride Carbon Dioxide BUN 25 H 27 H Creatinine Glucose 125 H POC Glucose Lactic Acid Calcium Phosphorus Magnesium Ferritin AST Lactate Dehydrogenase C-Reactive Protein NT-Pro-B Natriuret Pep Albumin 3.3 L Triglycerides Urine WBC (Auto) Urine Creatinine Coronavirus (PCR) 02/23/21 02/23/21 02/24/21 11:33 16:24 04:50 WBC 14.8 H RBC Hgb Hct RDW Plt Count Seg Neuts % (Manual) Lymphocytes % (Manual) Monocytes % (Manual) Seg Neutrophils # Man Lymphocytes # (Manual) Monocytes # (Manual) D-Dimer ABG pH POC ABG pCO2 ABG pO2 ABG HCO3 ABG O2 Saturation ABG Base Excess ABG Hemoglobin Oxyhemoglobin Sodium Potassium Chloride Carbon Dioxide BUN Creatinine Glucose POC Glucose 117 H 163 H Lactic Acid Calcium Phosphorus Magnesium Ferritin AST Lactate Dehydrogenase C-Reactive Protein NT-Pro-B Natriuret Pep Albumin Triglycerides Urine WBC (Auto) Urine Creatinine Coronavirus (PCR) 02/24/21 02/25/21 02/27/21 04:50 21:12 04:57 WBC 17.0 H RBC Hgb Hct 43.4 H RDW Plt Count Seg Neuts % (Manual) 84.0 H Lymphocytes % (Manual) 4.0 L Monocytes % (Manual) Seg Neutrophils # Man 14.3 H Lymphocytes # (Manual) 0.7 L Monocytes # (Manual) 0.9 H D-Dimer ABG pH POC ABG pCO2 ABG pO2 ABG HCO3 ABG O2 Saturation ABG Base Excess ABG Hemoglobin Oxyhemoglobin Sodium Potassium Chloride Carbon Dioxide BUN 23 H Creatinine Glucose POC Glucose 175 H Lactic Acid Calcium Phosphorus Magnesium Ferritin AST Lactate Dehydrogenase C-Reactive Protein NT-Pro-B Natriuret Pep Albumin Triglycerides Urine WBC (Auto) Urine Creatinine Coronavirus (PCR) 02/27/21 02/27/21 02/27/21 04:57 04:57 04:57 WBC RBC Hgb Hct RDW Plt Count Seg Neuts % (Manual) Lymphocytes % (Manual) Monocytes % (Manual) Seg Neutrophils # Man Lymphocytes # (Manual) Monocytes # (Manual) D-Dimer 5013.37 H ABG pH POC ABG pCO2 ABG pO2 ABG HCO3 ABG O2 Saturation ABG Base Excess ABG Hemoglobin Oxyhemoglobin Sodium Potassium Chloride Carbon Dioxide BUN 23 H Creatinine 0.5 L Glucose 113 H POC Glucose Lactic Acid Calcium Phosphorus Magnesium Ferritin 1272.0 H AST Lactate Dehydrogenase 438 H C-Reactive Protein 5.80 H NT-Pro-B Natriuret Pep Albumin Triglycerides Urine WBC (Auto) Urine Creatinine Coronavirus (PCR) 02/27/21 02/27/21 02/28/21 17:53 21:12 07:40 WBC RBC Hgb Hct RDW Plt Count Seg Neuts % (Manual) Lymphocytes % (Manual) Monocytes % (Manual) Seg Neutrophils # Man Lymphocytes # (Manual) Monocytes # (Manual) D-Dimer ABG pH POC ABG pCO2 ABG pO2 ABG HCO3 ABG O2 Saturation ABG Base Excess ABG Hemoglobin Oxyhemoglobin Sodium Potassium Chloride Carbon Dioxide BUN Creatinine Glucose POC Glucose 159 H 112 H 123 H Lactic Acid Calcium Phosphorus Magnesium Ferritin AST Lactate Dehydrogenase C-Reactive Protein NT-Pro-B Natriuret Pep Albumin Triglycerides Urine WBC (Auto) Urine Creatinine Coronavirus (PCR) 02/28/21 02/28/21 02/28/21 11:42 16:20 22:26 WBC RBC Hgb Hct RDW Plt Count Seg Neuts % (Manual) Lymphocytes % (Manual) Monocytes % (Manual) Seg Neutrophils # Man Lymphocytes # (Manual) Monocytes # (Manual) D-Dimer ABG pH POC ABG pCO2 ABG pO2 ABG HCO3 ABG O2 Saturation ABG Base Excess ABG Hemoglobin Oxyhemoglobin Sodium Potassium Chloride Carbon Dioxide BUN Creatinine Glucose POC Glucose 112 H 138 H 129 H Lactic Acid Calcium Phosphorus Magnesium Ferritin AST Lactate Dehydrogenase C-Reactive Protein NT-Pro-B Natriuret Pep Albumin Triglycerides Urine WBC (Auto) Urine Creatinine Coronavirus (PCR) 03/01/21 03/01/21 03/01/21 05:12 05:12 05:12 WBC 15.0 H RBC 5.05 H Hgb Hct 44.7 H RDW Plt Count Seg Neuts % (Manual) 71.0 H Lymphocytes % (Manual) 11.0 L Monocytes % (Manual) 12.0 H Seg Neutrophils # Man 10.7 H Lymphocytes # (Manual) Monocytes # (Manual) 1.8 H D-Dimer 3469.99 H ABG pH POC ABG pCO2 ABG pO2 ABG HCO3 ABG O2 Saturation ABG Base Excess ABG Hemoglobin Oxyhemoglobin Sodium Potassium Chloride 97.3 L Carbon Dioxide BUN Creatinine 0.5 L Glucose 115 H POC Glucose Lactic Acid Calcium Phosphorus Magnesium Ferritin AST Lactate Dehydrogenase 385 H C-Reactive Protein 11.20 H NT-Pro-B Natriuret Pep Albumin 2.8 L Triglycerides Urine WBC (Auto) Urine Creatinine Coronavirus (PCR) 03/01/21 03/01/21 03/01/21 05:12 07:30 11:42 WBC RBC Hgb Hct RDW Plt Count Seg Neuts % (Manual) Lymphocytes % (Manual) Monocytes % (Manual) Seg Neutrophils # Man Lymphocytes # (Manual) Monocytes # (Manual) D-Dimer ABG pH POC ABG pCO2 ABG pO2 ABG HCO3 ABG O2 Saturation ABG Base Excess ABG Hemoglobin Oxyhemoglobin Sodium Potassium Chloride Carbon Dioxide BUN Creatinine Glucose POC Glucose 130 H 143 H Lactic Acid Calcium Phosphorus Magnesium Ferritin 1526.0 H AST Lactate Dehydrogenase C-Reactive Protein NT-Pro-B Natriuret Pep Albumin Triglycerides Urine WBC (Auto) Urine Creatinine Coronavirus (PCR) 03/01/21 03/01/21 03/01/21 15:28 17:53 21:16 WBC RBC Hgb Hct RDW Plt Count Seg Neuts % (Manual) Lymphocytes % (Manual) Monocytes % (Manual) Seg Neutrophils # Man Lymphocytes # (Manual) Monocytes # (Manual) D-Dimer ABG pH POC ABG pCO2 ABG pO2 ABG HCO3 ABG O2 Saturation ABG Base Excess ABG Hemoglobin Oxyhemoglobin Sodium Potassium Chloride Carbon Dioxide BUN Creatinine Glucose POC Glucose 138 H 120 H 157 H Lactic Acid Calcium Phosphorus Magnesium Ferritin AST Lactate Dehydrogenase C-Reactive Protein NT-Pro-B Natriuret Pep Albumin Triglycerides Urine WBC (Auto) Urine Creatinine Coronavirus (PCR) 03/01/21 03/02/21 03/02/21 22:07 07:44 11:40 WBC RBC Hgb Hct RDW Plt Count Seg Neuts % (Manual) Lymphocytes % (Manual) Monocytes % (Manual) Seg Neutrophils # Man Lymphocytes # (Manual) Monocytes # (Manual) D-Dimer ABG pH POC ABG pCO2 ABG pO2 35.9 L* ABG HCO3 31.2 H ABG O2 Saturation 68.0 L ABG Base Excess 6.1 H ABG Hemoglobin Oxyhemoglobin 66.1 L Sodium Potassium Chloride Carbon Dioxide BUN Creatinine Glucose POC Glucose 125 H 203 H Lactic Acid Calcium Phosphorus Magnesium Ferritin AST Lactate Dehydrogenase C-Reactive Protein NT-Pro-B Natriuret Pep Albumin Triglycerides Urine WBC (Auto) Urine Creatinine Coronavirus (PCR) 03/02/21 03/02/21 03/02/21 12:13 13:00 17:15 WBC RBC Hgb Hct RDW Plt Count Seg Neuts % (Manual) Lymphocytes % (Manual) Monocytes % (Manual) Seg Neutrophils # Man Lymphocytes # (Manual) Monocytes # (Manual) D-Dimer ABG pH POC ABG pCO2 ABG pO2 36.0 L* ABG HCO3 29.5 H ABG O2 Saturation 68.7 L ABG Base Excess 4.7 H ABG Hemoglobin Oxyhemoglobin 66.8 L Sodium Potassium Chloride Carbon Dioxide BUN Creatinine Glucose POC Glucose 130 H 126 H Lactic Acid Calcium Phosphorus Magnesium Ferritin AST Lactate Dehydrogenase C-Reactive Protein NT-Pro-B Natriuret Pep Albumin Triglycerides Urine WBC (Auto) Urine Creatinine Coronavirus (PCR) 03/02/21 03/03/21 03/03/21 21:45 08:02 10:05 WBC 19.2 H RBC Hgb Hct 44.9 H RDW Plt Count Seg Neuts % (Manual) 85.0 H Lymphocytes % (Manual) 7.0 L Monocytes % (Manual) Seg Neutrophils # Man 16.3 H Lymphocytes # (Manual) Monocytes # (Manual) 1.2 H D-Dimer ABG pH POC ABG pCO2 ABG pO2 ABG HCO3 ABG O2 Saturation ABG Base Excess ABG Hemoglobin Oxyhemoglobin Sodium Potassium Chloride Carbon Dioxide BUN Creatinine Glucose POC Glucose 113 H 128 H Lactic Acid Calcium Phosphorus Magnesium Ferritin AST Lactate Dehydrogenase C-Reactive Protein NT-Pro-B Natriuret Pep Albumin Triglycerides Urine WBC (Auto) Urine Creatinine Coronavirus (PCR) 03/03/21 03/03/21 03/03/21 10:05 12:45 16:31 WBC RBC Hgb Hct RDW Plt Count Seg Neuts % (Manual) Lymphocytes % (Manual) Monocytes % (Manual) Seg Neutrophils # Man Lymphocytes # (Manual) Monocytes # (Manual) D-Dimer ABG pH POC ABG pCO2 ABG pO2 47.7 L ABG HCO3 31.5 H ABG O2 Saturation 82.5 L ABG Base Excess 5.6 H ABG Hemoglobin Oxyhemoglobin 80.4 L Sodium Potassium Chloride 97.8 L Carbon Dioxide BUN 23 H Creatinine Glucose 141 H POC Glucose 126 H Lactic Acid Calcium Phosphorus Magnesium Ferritin AST Lactate Dehydrogenase C-Reactive Protein NT-Pro-B Natriuret Pep Albumin 3.2 L Triglycerides Urine WBC (Auto) Urine Creatinine Coronavirus (PCR) 03/03/21 03/04/21 03/04/21 20:52 07:24 11:04 WBC RBC Hgb Hct RDW Plt Count Seg Neuts % (Manual) Lymphocytes % (Manual) Monocytes % (Manual) Seg Neutrophils # Man Lymphocytes # (Manual) Monocytes # (Manual) D-Dimer ABG pH POC ABG pCO2 ABG pO2 ABG HCO3 ABG O2 Saturation ABG Base Excess ABG Hemoglobin Oxyhemoglobin Sodium Potassium Chloride Carbon Dioxide BUN Creatinine Glucose POC Glucose 152 H 126 H 142 H Lactic Acid Calcium Phosphorus Magnesium Ferritin AST Lactate Dehydrogenase C-Reactive Protein NT-Pro-B Natriuret Pep Albumin Triglycerides Urine WBC (Auto) Urine Creatinine Coronavirus (PCR) 03/04/21 03/04/21 03/04/21 11:05 15:33 21:12 WBC RBC Hgb Hct RDW Plt Count Seg Neuts % (Manual) Lymphocytes % (Manual) Monocytes % (Manual) Seg Neutrophils # Man Lymphocytes # (Manual) Monocytes # (Manual) D-Dimer ABG pH POC ABG pCO2 ABG pO2 ABG HCO3 ABG O2 Saturation ABG Base Excess ABG Hemoglobin Oxyhemoglobin Sodium Potassium Chloride Carbon Dioxide BUN 34 H Creatinine Glucose 143 H POC Glucose 114 H 180 H Lactic Acid Calcium Phosphorus Magnesium Ferritin AST Lactate Dehydrogenase C-Reactive Protein NT-Pro-B Natriuret Pep Albumin Triglycerides Urine WBC (Auto) Urine Creatinine Coronavirus (PCR) 03/04/21 03/05/21 03/05/21 21:30 07:51 10:10 WBC 17.8 H RBC Hgb 14.5 H Hct 45.8 H RDW 15.3 H Plt Count 446 H Seg Neuts % (Manual) 77.0 H Lymphocytes % (Manual) 12.0 L Monocytes % (Manual) Seg Neutrophils # Man 13.7 H Lymphocytes # (Manual) Monocytes # (Manual) 0.9 H D-Dimer ABG pH 7.473 H POC ABG pCO2 ABG pO2 34.1 L* ABG HCO3 29.7 H ABG O2 Saturation 66.4 L ABG Base Excess 5.6 H ABG Hemoglobin Oxyhemoglobin 64.9 L Sodium Potassium Chloride Carbon Dioxide BUN Creatinine Glucose POC Glucose 144 H Lactic Acid Calcium Phosphorus Magnesium Ferritin AST Lactate Dehydrogenase C-Reactive Protein NT-Pro-B Natriuret Pep Albumin Triglycerides Urine WBC (Auto) Urine Creatinine Coronavirus (PCR) 03/05/21 03/05/21 03/05/21 10:10 11:41 12:23 WBC RBC Hgb Hct RDW Plt Count Seg Neuts % (Manual) Lymphocytes % (Manual) Monocytes % (Manual) Seg Neutrophils # Man Lymphocytes # (Manual) Monocytes # (Manual) D-Dimer ABG pH 7.226 L POC ABG pCO2 ABG pO2 50.5 L ABG HCO3 32.8 H ABG O2 Saturation 73.6 L ABG Base Excess ABG Hemoglobin 18.2 H Oxyhemoglobin 71.8 L Sodium Potassium 3.5 L Chloride Carbon Dioxide BUN 51 H Creatinine Glucose 217 H POC Glucose 124 H Lactic Acid Calcium Phosphorus Magnesium Ferritin AST Lactate Dehydrogenase C-Reactive Protein NT-Pro-B Natriuret Pep Albumin 3.1 L Triglycerides Urine WBC (Auto) Urine Creatinine Coronavirus (PCR) 03/05/21 03/05/2103/06/22 16:40 22:39 00:37 WBC RBC Hgb Hct RDW Plt Count Seg Neuts % (Manual) Lymphocytes % (Manual) Monocytes % (Manual) Seg Neutrophils # Man Lymphocytes # (Manual) Monocytes # (Manual) D-Dimer ABG pH POC ABG pCO2 ABG pO2 ABG HCO3 ABG O2 Saturation ABG Base Excess ABG Hemoglobin Oxyhemoglobin Sodium Potassium Chloride Carbon Dioxide BUN Creatinine Glucose POC Glucose 138 H 139 H 126 H Lactic Acid Calcium Phosphorus Magnesium Ferritin AST Lactate Dehydrogenase C-Reactive Protein NT-Pro-B Natriuret Pep Albumin Triglycerides Urine WBC (Auto) Urine Creatinine Coronavirus (PCR) 03/06/21 03/06/21 03/06/21 04:25 06:13 06:13 WBC 18.4 H RBC Hgb Hct RDW 15.3 H Plt Count Seg Neuts % (Manual) Lymphocytes % (Manual) Monocytes % (Manual) Seg Neutrophils # Man Lymphocytes # (Manual) Monocytes # (Manual) D-Dimer ABG pH 7.028 L* POC ABG pCO2 ABG pO2 ABG HCO3 33.8 H ABG O2 Saturation 92.5 L ABG Base Excess ABG Hemoglobin Oxyhemoglobin 90.6 L Sodium 149 H Potassium Chloride 107.2 H Carbon Dioxide BUN 62 H Creatinine 1.9 H D Glucose 140 H POC Glucose Lactic Acid Calcium 7.7 L D Phosphorus 10.70 H Magnesium 2.40 H Ferritin AST Lactate Dehydrogenase C-Reactive Protein NT-Pro-B Natriuret Pep Albumin Triglycerides Urine WBC (Auto) Urine Creatinine Coronavirus (PCR) 03/06/21 03/06/21 03/06/21 06:13 09:00 12:00 WBC RBC Hgb Hct RDW Plt Count Seg Neuts % (Manual) Lymphocytes % (Manual) Monocytes % (Manual) Seg Neutrophils # Man Lymphocytes # (Manual) Monocytes # (Manual) D-Dimer ABG pH POC ABG pCO2 ABG pO2 ABG HCO3 ABG O2 Saturation ABG Base Excess ABG Hemoglobin Oxyhemoglobin Sodium Potassium Chloride Carbon Dioxide BUN Creatinine Glucose POC Glucose 155 H 122 H Lactic Acid Calcium Phosphorus Magnesium Ferritin AST Lactate Dehydrogenase C-Reactive Protein NT-Pro-B Natriuret Pep Albumin Triglycerides Urine WBC (Auto) Urine Creatinine 247.7 H Coronavirus (PCR) 03/06/21 03/06/21 03/06/21 17:16 22:23 Unknown WBC RBC Hgb Hct RDW Plt Count Seg Neuts % (Manual) Lymphocytes % (Manual) Monocytes % (Manual) Seg Neutrophils # Man Lymphocytes # (Manual) Monocytes # (Manual) D-Dimer ABG pH 7.253 L POC ABG pCO2 ABG pO2 66.5 L ABG HCO3 31.3 H ABG O2 Saturation 91.8 L ABG Base Excess ABG Hemoglobin 16.8 H Oxyhemoglobin 90.1 L Sodium Potassium Chloride Carbon Dioxide BUN Creatinine Glucose POC Glucose 123 H 123 H Lactic Acid Calcium Phosphorus Magnesium Ferritin AST Lactate Dehydrogenase C-Reactive Protein NT-Pro-B Natriuret Pep Albumin Triglycerides Urine WBC (Auto) Urine Creatinine Coronavirus (PCR) 03/07/21 03/07/21 03/07/21 00:36 04:05 04:05 WBC 18.0 H RBC Hgb Hct RDW Plt Count Seg Neuts % (Manual) Lymphocytes % (Manual) Monocytes % (Manual) Seg Neutrophils # Man Lymphocytes # (Manual) Monocytes # (Manual) D-Dimer ABG pH POC ABG pCO2 ABG pO2 ABG HCO3 ABG O2 Saturation ABG Base Excess ABG Hemoglobin Oxyhemoglobin Sodium Potassium Chloride Carbon Dioxide BUN 75 H Creatinine 1.5 H Glucose 113 H POC Glucose 121 H Lactic Acid Calcium Phosphorus Magnesium Ferritin AST Lactate Dehydrogenase C-Reactive Protein NT-Pro-B Natriuret Pep Albumin Triglycerides Urine WBC (Auto) Urine Creatinine Coronavirus (PCR) 03/07/21 03/07/21 03/07/21 04:05 04:49 05:38 WBC RBC Hgb Hct RDW Plt Count Seg Neuts % (Manual) Lymphocytes % (Manual) Monocytes % (Manual) Seg Neutrophils # Man Lymphocytes # (Manual) Monocytes # (Manual) D-Dimer ABG pH 7.280 L POC ABG pCO2 ABG pO2 ABG HCO3 29.3 H ABG O2 Saturation ABG Base Excess ABG Hemoglobin Oxyhemoglobin 94.4 L Sodium Potassium Chloride Carbon Dioxide BUN Creatinine Glucose POC Glucose 112 H Lactic Acid Calcium Phosphorus Magnesium Ferritin AST Lactate Dehydrogenase C-Reactive Protein NT-Pro-B Natriuret Pep Albumin Triglycerides 171 H Urine WBC (Auto) Urine Creatinine Coronavirus (PCR) 03/07/21 03/07/21 03/08/21 12:13 18:13 04:30 WBC 12.5 H RBC Hgb Hct RDW Plt Count Seg Neuts % (Manual) Lymphocytes % (Manual) Monocytes % (Manual) Seg Neutrophils # Man Lymphocytes # (Manual) Monocytes # (Manual) D-Dimer ABG pH POC ABG pCO2 ABG pO2 ABG HCO3 ABG O2 Saturation ABG Base Excess ABG Hemoglobin Oxyhemoglobin Sodium Potassium Chloride Carbon Dioxide BUN Creatinine Glucose POC Glucose 113 H 111 H Lactic Acid Calcium Phosphorus Magnesium Ferritin AST Lactate Dehydrogenase C-Reactive Protein NT-Pro-B Natriuret Pep Albumin Triglycerides Urine WBC (Auto) Urine Creatinine Coronavirus (PCR) 03/08/21 03/08/21 03/08/21 04:30 05:04 10:00 WBC RBC Hgb Hct RDW Plt Count Seg Neuts % (Manual) Lymphocytes % (Manual) Monocytes % (Manual) Seg Neutrophils # Man Lymphocytes # (Manual) Monocytes # (Manual) D-Dimer ABG pH POC ABG pCO2 ABG pO2 73.8 L ABG HCO3 28.9 H ABG O2 Saturation ABG Base Excess ABG Hemoglobin 11.0 L Oxyhemoglobin 93.4 L Sodium Potassium Chloride Carbon Dioxide BUN 69 H Creatinine Glucose 107 H POC Glucose 111 H Lactic Acid Calcium Phosphorus Magnesium Ferritin AST Lactate Dehydrogenase C-Reactive Protein NT-Pro-B Natriuret Pep Albumin Triglycerides Urine WBC (Auto) Urine Creatinine Coronavirus (PCR) 03/08/21 03/08/21 03/09/21 17:09 21:35 04:00 WBC 11.4 H RBC 3.21 L Hgb 9.4 L Hct 29.6 L RDW Plt Count Seg Neuts % (Manual) Lymphocytes % (Manual) Monocytes % (Manual) Seg Neutrophils # Man Lymphocytes # (Manual) Monocytes # (Manual) D-Dimer ABG pH POC ABG pCO2 ABG pO2 ABG HCO3 ABG O2 Saturation ABG Base Excess ABG Hemoglobin Oxyhemoglobin Sodium Potassium Chloride Carbon Dioxide BUN Creatinine Glucose POC Glucose 114 H 128 H Lactic Acid Calcium Phosphorus Magnesium Ferritin AST Lactate Dehydrogenase C-Reactive Protein NT-Pro-B Natriuret Pep Albumin Triglycerides Urine WBC (Auto) Urine Creatinine Coronavirus (PCR) 03/09/21 03/09/21 03/09/21 04:00 04:11 11:25 WBC RBC Hgb Hct RDW Plt Count Seg Neuts % (Manual) Lymphocytes % (Manual) Monocytes % (Manual) Seg Neutrophils # Man Lymphocytes # (Manual) Monocytes # (Manual) D-Dimer ABG pH 7.260 L POC ABG pCO2 ABG pO2 ABG HCO3 30.5 H ABG O2 Saturation ABG Base Excess ABG Hemoglobin 9.4 L Oxyhemoglobin 93.9 L Sodium Potassium Chloride Carbon Dioxide BUN 74 H Creatinine 1.3 H Glucose 117 H POC Glucose 122 H Lactic Acid Calcium Phosphorus Magnesium Ferritin AST Lactate Dehydrogenase C-Reactive Protein NT-Pro-B Natriuret Pep Albumin Triglycerides Urine WBC (Auto) Urine Creatinine Coronavirus (PCR) 03/09/21 03/09/21 03/09/21 18:02 21:04 23:30 WBC RBC Hgb Hct RDW Plt Count Seg Neuts % (Manual) Lymphocytes % (Manual) Monocytes % (Manual) Seg Neutrophils # Man Lymphocytes # (Manual) Monocytes # (Manual) D-Dimer ABG pH POC ABG pCO2 ABG pO2 ABG HCO3 ABG O2 Saturation ABG Base Excess ABG Hemoglobin Oxyhemoglobin Sodium Potassium Chloride Carbon Dioxide BUN Creatinine Glucose POC Glucose 106 H 116 H 109 H Lactic Acid Calcium Phosphorus Magnesium Ferritin AST Lactate Dehydrogenase C-Reactive Protein NT-Pro-B Natriuret Pep Albumin Triglycerides Urine WBC (Auto) Urine Creatinine Coronavirus (PCR) 03/10/21 03/10/21 03/10/21 02:43 04:00 04:00 WBC 11.6 H RBC 3.30 L Hgb 9.7 L Hct RDW 16.1 H Plt Count Seg Neuts % (Manual) Lymphocytes % (Manual) Monocytes % (Manual) Seg Neutrophils # Man Lymphocytes # (Manual) Monocytes # (Manual) D-Dimer ABG pH 7.268 L POC ABG pCO2 ABG pO2 113.4 H ABG HCO3 31.9 H ABG O2 Saturation ABG Base Excess 3.6 H ABG Hemoglobin 9.9 L Oxyhemoglobin Sodium Potassium Chloride Carbon Dioxide BUN 74 H Creatinine Glucose 132 H POC Glucose Lactic Acid Calcium Phosphorus Magnesium Ferritin AST Lactate Dehydrogenase C-Reactive Protein NT-Pro-B Natriuret Pep Albumin Triglycerides Urine WBC (Auto) Urine Creatinine Coronavirus (PCR) 03/10/21 03/10/21 03/10/21 05:08 11:29 16:23 WBC RBC Hgb Hct RDW Plt Count Seg Neuts % (Manual) Lymphocytes % (Manual) Monocytes % (Manual) Seg Neutrophils # Man Lymphocytes # (Manual) Monocytes # (Manual) D-Dimer ABG pH POC ABG pCO2 ABG pO2 ABG HCO3 ABG O2 Saturation ABG Base Excess ABG Hemoglobin Oxyhemoglobin Sodium Potassium Chloride Carbon Dioxide BUN Creatinine Glucose POC Glucose 117 H 128 H 116 H Lactic Acid Calcium Phosphorus Magnesium Ferritin AST Lactate Dehydrogenase C-Reactive Protein NT-Pro-B Natriuret Pep Albumin Triglycerides Urine WBC (Auto) Urine Creatinine Coronavirus (PCR) 03/10/21 03/10/21 03/11/21 21:15 23:39 03:40 WBC RBC Hgb Hct RDW Plt Count Seg Neuts % (Manual) Lymphocytes % (Manual) Monocytes % (Manual) Seg Neutrophils # Man Lymphocytes # (Manual) Monocytes # (Manual) D-Dimer ABG pH 7.247 L POC ABG pCO2 ABG pO2 123.9 H ABG HCO3 34.4 H ABG O2 Saturation ABG Base Excess 5.4 H ABG Hemoglobin 9.7 L Oxyhemoglobin Sodium Potassium Chloride Carbon Dioxide BUN Creatinine Glucose POC Glucose 123 H 124 H Lactic Acid Calcium Phosphorus Magnesium Ferritin AST Lactate Dehydrogenase C-Reactive Protein NT-Pro-B Natriuret Pep Albumin Triglycerides Urine WBC (Auto) Urine Creatinine Coronavirus (PCR) 03/11/21 03/11/21 03/11/21 04:00 04:00 05:32 WBC 12.1 H RBC 3.30 L Hgb 9.5 L Hct RDW 15.5 H Plt Count Seg Neuts % (Manual) Lymphocytes % (Manual) Monocytes % (Manual) Seg Neutrophils # Man Lymphocytes # (Manual) Monocytes # (Manual) D-Dimer ABG pH POC ABG pCO2 ABG pO2 ABG HCO3 ABG O2 Saturation ABG Base Excess ABG Hemoglobin Oxyhemoglobin Sodium 148 H Potassium 5.7 H Chloride 107.7 H Carbon Dioxide BUN 63 H Creatinine Glucose 135 H POC Glucose 147 H Lactic Acid Calcium Phosphorus 4.70 H Magnesium 3.20 H Ferritin AST Lactate Dehydrogenase C-Reactive Protein NT-Pro-B Natriuret Pep Albumin Triglycerides Urine WBC (Auto) Urine Creatinine Coronavirus (PCR) 03/11/21 03/11/21 03/11/21 11:35 17:50 21:29 WBC RBC Hgb Hct RDW Plt Count Seg Neuts % (Manual) Lymphocytes % (Manual) Monocytes % (Manual) Seg Neutrophils # Man Lymphocytes # (Manual) Monocytes # (Manual) D-Dimer ABG pH POC ABG pCO2 ABG pO2 ABG HCO3 ABG O2 Saturation ABG Base Excess ABG Hemoglobin Oxyhemoglobin Sodium Potassium Chloride Carbon Dioxide BUN Creatinine Glucose POC Glucose 136 H 109 H 114 H Lactic Acid Calcium Phosphorus Magnesium Ferritin AST Lactate Dehydrogenase C-Reactive Protein NT-Pro-B Natriuret Pep Albumin Triglycerides Urine WBC (Auto) Urine Creatinine Coronavirus (PCR) 03/12/21 03/12/21 03/12/21 00:43 04:06 04:30 WBC 11.2 H RBC 3.16 L Hgb 9.1 L Hct 29.5 L RDW 16.1 H Plt Count Seg Neuts % (Manual) Lymphocytes % (Manual) Monocytes % (Manual) Seg Neutrophils # Man Lymphocytes # (Manual) Monocytes # (Manual) D-Dimer ABG pH 7.261 L POC ABG pCO2 79.6 H ABG pO2 ABG HCO3 ABG O2 Saturation ABG Base Excess ABG Hemoglobin 9.64 L Oxyhemoglobin Sodium Potassium Chloride Carbon Dioxide BUN Creatinine Glucose POC Glucose 112 H Lactic Acid Calcium Phosphorus Magnesium Ferritin AST Lactate Dehydrogenase C-Reactive Protein NT-Pro-B Natriuret Pep Albumin Triglycerides Urine WBC (Auto) Urine Creatinine Coronavirus (PCR) 03/12/21 03/12/21 03/12/21 04:30 05:24 09:16 WBC RBC Hgb Hct RDW Plt Count Seg Neuts % (Manual) Lymphocytes % (Manual) Monocytes % (Manual) Seg Neutrophils # Man Lymphocytes # (Manual) Monocytes # (Manual) D-Dimer ABG pH POC ABG pCO2 ABG pO2 ABG HCO3 ABG O2 Saturation ABG Base Excess ABG Hemoglobin Oxyhemoglobin Sodium 147 H Potassium 6.2 H* Chloride Carbon Dioxide 33 H BUN 61 H Creatinine Glucose 132 H POC Glucose 122 H 117 H Lactic Acid Calcium Phosphorus Magnesium Ferritin AST Lactate Dehydrogenase C-Reactive Protein NT-Pro-B Natriuret Pep Albumin Triglycerides Urine WBC (Auto) Urine Creatinine Coronavirus (PCR)
--- NOTE | 2021-03-12 18:12 | Progress Note ---
Assessment and Plan Assessment and plan: This is a 61-year-old female with HTN, DM, DVT/PE on Eliquis admitted with acute hypoxic respiratory failure secondary to COVID-19 pneumonia Acute hypoxic respiratory failure secondary to Covid pneumonia, ARDS -S/p BiPAP and OptiFlow -Intubated on 03/05 with 7.50 ETT -A.m. vent settings: CMV tidal volume 350, rate 30, PEEP 20,85% FiO2 -See RT notes for titration FiO2 decreased to 85 -[facility] consulted, appreciate recommendations -VAP bundle -SPO2 monitoring -AM CXR and ABG noted -Sedated on Versed and propofol -RASS goal of -2 to -3 -Avoid delirium -Maintain sleep-wake cycle -SAT/SBT when appropriate Sepsis/COVID-19 pneumonia, leukocytosis, multifocal pneumonia -Infectious disease consulted, appreciate recommendations -> signed off 02/28 -S/p vasopressor support with Levophed -MAP goal greater than 65 -S/p steroids for 10 days -S/p remdesivir for 10 days -S/p empiric antibiotics for 5 days -S/p Actemra -Isolation/droplet precautions -Vitamin C/vitamin D/zinc -Trend COVID-19 from 2 markers -Anticoagulation per protocol Acute kidney injury secondary to acute tubular necrosis, hyperkalemia -BUN/creatinine increased to 1.9/62 -S/p diuresis with Lasix x4 (120 mg total for visit) -S/p 4 L LR -Avoid nephrotoxic medications -Renally dose medications -Trend BMP Acute right lower leg DVT -Vascular surgery consulted, appreciate recommendations -D-dimer greater than 10,000 -CTA chest showed several small emboli in the segmental branches of the right lung -Vascular surgery recommended anticoagulation and supportive therapy -bilateral lower extremity Doppler ultrasound showed a chronic appearing DVT in the right posterior tibial vein -Therapeutic Lovenox -Trend CBC -Transfuse to hemoglobin less than 7 -Monitor for signs of bleeding Hypernatremia -Free water flush -Trend sodium Hyperkalemia -Noted at 6.2 this morning -Treated at 5.7 yesterday with Kionex -Treated medically again (60 mg, calcium gluconate 1 g, D50, insulin) -Repeat K 4 -Trend potassium h/o DM -SSI -Lantus, titrate as needed -Avoid hypoglycemia h/o HTN -Hold home antihypertensive regimen at this time -Blood pressure monitor per protocol DVT/GI prophylaxis -Lovenox subcu -PPI The high probability of a clinically significant, sudden or life threatening deterioration of the [CV/Resp] system(s) required my full and direct attention, intervention and personal management. The aggregate critical care time was [60] minutes. This time is in addition to time spent performing reported procedures but includes the following: [x] Data Review and interpretation [x] Patient assessment and monitoring of vital signs [x] Documentation [x] Medication orders and management Disposition Plan: icu Total Time Spent with Patient (Minutes): 60 History Interval history: This is a 61-year-old female with HTN, DM, left lower extremity DVT and pulmonary medicine on Eliquis who presented to emergency department on 02/17 with complaints of shortness of breath and generalized weakness for the past 5 days prior to arrival and states that she is tested positive for COVID-19 on February 10, 2021 via EMS. EMS stated that the patient's initial oxygen saturation was 75% on room air improved to 86% on nonrebreather. Work-up in the emergency department revealed leukocytosis and elevated BUN. Work-up in the ED included a CXR which showed severe diffuse bilateral patchy opacities. Patient was admitted to the hospitalist service with consults to ID, pulmonology, vascular surgery as a COVID-19 PUI, SARS, acute hypoxic respiratory failure and multifocal pneumonia. Hospital course to date: 02/19/2020: Patient on 50% Ventimask, Covid positive, Continue steroids ,May DC antibiotics, Respiratory assessment and treatment 02/19: Patient still hypoxic, encourage prone positioning, Pulmonary and ID consult. Will obtain CTA chest to evaluate for PE. Continue steroid therapy and oxygen therapy wean as tolerated. Continuous pulse oximeter. Plan discussed with the patient. 02/20: Patient seen and examined, remains on NRBM. awaiting CT CHEST WITH ANGIO Ordered yesterday. Encourage proning the patient says she was not proned yesterday discussed with nursing staff. Continue steroid therapy and remdesivir. Patient was seen by ID and as documented by ID"She is a candidate for Actemra based on CRp and O2 requirements. unfortunately we have not been getting procalcitonin results. -ordered Actemra once (afebrile, white count only mildly elevated in the setting of steroids)" Discussed plan of care with the nurse. Also called to updated the patients sister listed as [facility] but got voice mail 02/21: Continue steroids, remdesivir, patient received 1 dose of Actemra but unable to get the second dose due to availability. CTA showed dense consolidation but no effusion and no pulmonary embolism patient does have a lower extremity DVT. Eliquis continues at full dose of 5 mg twice daily we will continue to monitor closely. Prognosis is guarded counseling for compliance for 15 minutes. 02/22: Patient clinically not improving much of switch the patient to Lovenox. Prognosis remains guarded. Continue anticoagulation due to DVT still suspicious of pulmonary embolism as a result we will obtain echocardiogram and vascular consult per pulmonary request which I agree with. I will also transfer the patient to stepdown unit for closer monitoring. 02/23: Vascular input noted agree the patient has subsegmental bibasilar pulmonary embolism but not enough to warrant intervention. Does not feel that this is contributing majority to her hypoxia. Nevertheless we will switch patient from Eliquis to Lovenox. Continue current management with remdesivir 02/24: Patient seen and examined, remains on anticoagulation, continue remedsivir and steroids. prone as tolerated, will give additional lasix today. Guarded prognosis. 02/25 A&O x 3, C/O mild cough with mucoid expectorant. Denies CP or shortness of breath. Remains on HFNC. pulmonary note and lab results reviewed 02/26: AOX3, proning on encounter. Encouraged continued movement while in bed and with assistance of care staff. Remains on HFNC. Last day of decadron today. 02/27: Patient encouraged to continue proning and remain active. Discussed with PT to come work with patient to mobilize. Will d/w CM for halfway placement solution. 02/28: Patient stated she would like to be a full code. Working with CM for LTAC placement. 03/01: Awaiting LTAC placement. Remains full code. Spoke with daughter Meghna who was updated on patient's case. 03/02: Sats in low 80s on hi lfow. Blood gas shows pao2 = 35.9. will start bipap, d/w IMCU RN who will notify RT. repeat abg in 1 hr. Poor prognosis. 03/03; Sats in low 90's on bipap. Repeat abg this AM demosntrates marginal improvement in PaO2. PCCM d/w daughter, patient and her daughter would like intubation should she continue to deteriorate. Prognosis remains poor. 03/04: de-escalated to HFNC 40/100 + venti. Will continue with bipap prn. Continue steroids. Dispo is still LTAC, placement is pending. 03/05: Resipratory distress this morning. Sats 69-70%. subsequently intubated. Now icu level of care. Family wants continue aggressive measures. Will follow [facility] recs. 03/06: Patient with ISH this am probably due to hypotension vs diuretic use, fluid bolus challenge this am. Urine lytes ordered. FWF added for hypernatremia. 03/07: Patient responded to fluid challenge, renal function improved, UOP better. Weaning down pressors, additional IVF bolus today, plan to wean down on press ors requirement. ABG improved today, wean down Fio2 as tolerated. Okay to start trickle feeds. 03/08: Renal function is back to baseline. Going down on pressor requirements, only on low dose Vaso and levophed today. Continue to wean pressors as tolerated. D/W [facility] continue to wean Fio2 as tolerated, keep patient a RASS goal of -4 for now. Advance TF as tolerated per order. 03/09: Remains on the vent. Low SPO2 overnight, vent setting was increased. Off pressors this am. IV lasix per [facility], repeat CXR in the am 03/10: Remains intubated and sedated, RASS -4. Back on pressors this am for low BP. This am CXR and ABG reviewed, oxygenation improved. Continue to wean pressors as tolerated. Vent adjustement per [facility] 03/11: Kayexalate given hypernatremia, remains on Levophed, increasing free water flush. 03/12: Hyperkalemia medically treated, repeat potassium is 4. BUN continues to rise. Continue to trend. Patient has been titrated off of Levophed. Hospitalist Physical - Constitutional Vitals: Temp Pulse Resp BP Pulse Ox 98.2 F 94 H 31 H 106/76 99 03/12/21 16:00 03/12/21 16:37 03/12/21 16:15 03/12/21 16:37 03/12/21 16:37 General appearance: Present: no acute distress, well-nourished, other (Intubated and Sedated) - EENT Eyes: Present: PERRL, EOM intact ENT: hearing intact, clear oral mucosa, dentition normal - Neck Neck: Present: normal ROM - Respiratory Respiratory effort: normal Respiratory: bilateral: diminished - Cardiovascular Rhythm: regular Heart Sounds: Present: S1 & S2. Absent: systolic murmur, diastolic murmur - Extremities Extremities: no ischemia, pulses intact, pulses symmetrical, No edema, normal temperature, normal color Peripheral Pulses: within normal limits - Abdominal General gastrointestinal: soft, non-tender, non-distended - Integumentary Integumentary: Present: warm, dry - Psychiatric Psychiatric: other - Neurologic Neurologic: CNII-XII intact Results - Labs CBC & Chem 7: 03/12/21 04:30 03/12/21 Unknown Labs: Laboratory Last Values WBC 11.2 K/mm3 (4.5-11.0) H 03/12/21 04:30 RBC 3.16 M/mm3 (3.65-5.03) L 03/12/21 04:30 Hgb 9.1 gm/dl (10.1-14.3) L 03/12/21 04:30 Hct 29.5 % (30.3-42.9) L 03/12/21 04:30 MCV 93 fl (79-97) 03/12/21 04:30 MCH 29 pg (28-32) 03/12/21 04:30 MCHC 31 % (30-34) 03/12/21 04:30 RDW 16.1 % (13.2-15.2) H 03/12/21 04:30 Plt Count 230 K/mm3 (140-440) 03/12/21 04:30 Add Manual Diff Complete 03/05/21 10:10 Total Counted 100 03/05/21 10:10 Seg Neuts % (Manual) 77.0 % (40.0-70.0) H 03/05/21 10:10 Band Neutrophils % 3.0 % 03/05/21 10:10 Lymphocytes % (Manual) 12.0 % (13.4-35.0) L 03/05/21 10:10 Reactive Lymphs % (Man) 2.0 % 03/05/21 10:10 Monocytes % (Manual) 5.0 % (0.0-7.3) 03/05/21 10:10 Eosinophils % (Manual) 1.0 % (0.0-4.3) 03/05/21 10:10 Basophils % (Manual) 0 % (0.0-1.8) 03/05/21 10:10 Metamyelocytes % 0 % 03/05/21 10:10 Myelocytes % 0 % 03/05/21 10:10 Promyelocytes % 0 % 03/05/21 10:10 Blast Cells % 0 % 03/05/21 10:10 Nucleated RBC % Not Reportable 03/05/21 10:10 Seg Neutrophils # Man 13.7 K/mm3 (1.8-7.7) H 03/05/21 10:10 Band Neutrophils # 0.5 K/mm3 03/05/21 10:10 Lymphocytes # (Manual) 2.1 K/mm3 (1.2-5.4) 03/05/21 10:10 Abs React Lymphs (Man) 0.4 K/mm3 03/05/21 10:10 Monocytes # (Manual) 0.9 K/mm3 (0.0-0.8) H 03/05/21 10:10 Eosinophils # (Manual) 0.2 K/mm3 (0.0-0.4) 03/05/21 10:10 Basophils # (Manual) 0.0 K/mm3 (0.0-0.1) 03/05/21 10:10 Metamyelocytes # 0.0 K/mm3 03/05/21 10:10 Myelocytes # 0.0 K/mm3 03/05/21 10:10 Promyelocytes # 0.0 K/mm3 03/05/21 10:10 Blast Cells # 0.0 K/mm3 03/05/21 10:10 WBC Morphology Not Reportable 03/05/21 10:10 Hypersegmented Neuts Not Reportable 03/05/21 10:10 Hyposegmented Neuts Not Reportable 03/05/21 10:10 Hypogranular Neuts Not Reportable 03/05/21 10:10 Smudge Cells Not Reportable 03/05/21 10:10 Toxic Granulation Not Reportable 03/05/21 10:10 Toxic Vacuolation Not Reportable 03/05/21 10:10 Dohle Bodies Not Reportable 03/05/21 10:10 Pelger-Huet Anomaly Not Reportable 03/05/21 10:10 Cindy Rods Not Reportable 03/05/21 10:10 Platelet Estimate Consistent w auto 03/05/21 10:10 Clumped Platelets Not Reportable 03/05/21 10:10 Plt Clumps, EDTA Not Reportable 03/05/21 10:10 Large Platelets 1+ 03/05/21 10:10 Giant Platelets Not Reportable 03/05/21 10:10 Platelet Satelliting Not Reportable 03/05/21 10:10 Plt Morphology Comment Not Reportable 03/05/21 10:10 RBC Morphology Not Reportable 03/05/21 10:10 Dimorphic RBCs Not Reportable 03/05/21 10:10 Polychromasia Few 03/05/21 10:10 Hypochromasia Not Reportable 03/05/21 10:10 Poikilocytosis Not Reportable 03/05/21 10:10 Anisocytosis 1+ 03/05/21 10:10 Microcytosis Not Reportable 03/05/21 10:10 Macrocytosis Not Reportable 03/05/21 10:10 Spherocytes Not Reportable 03/05/21 10:10 Pappenheimer Bodies Not Reportable 03/05/21 10:10 Sickle Cells Not Reportable 03/05/21 10:10 Target Cells Not Reportable 03/05/21 10:10 Tear Drop Cells Not Reportable 03/05/21 10:10 Ovalocytes Not Reportable 03/05/21 10:10 Helmet Cells Not Reportable 03/05/21 10:10 [place] Bodies Not Reportable 03/05/21 10:10 [place] Rings Not Reportable 03/05/21 10:10 [place] Cells Not Reportable 03/05/21 10:10 Bite Cells Not Reportable 03/05/21 10:10 Crenated Cell Not Reportable 03/05/21 10:10 Elliptocytes Not Reportable 03/05/21 10:10 Acanthocytes (Spur) Not Reportable 03/05/21 10:10 Rouleaux Not Reportable 03/05/21 10:10 Hemoglobin C Crystals Not Reportable 03/05/21 10:10 Schistocytes Not Reportable 03/05/21 10:10 Malaria parasites Not Reportable 03/05/21 10:10 [place] Bodies Not Reportable 03/05/21 10:10 Hem Pathologist Commnt No 03/05/21 10:10 PT 13.9 Sec. (12.2-14.9) 02/17/21 14:34 INR 0.96 (0.87-1.13) 02/17/21 14:34 APTT 26.4 Sec. (24.2-36.6) 02/17/21 14:34 D-Dimer 3469.99 ng/mlDDU (0-234) H 03/01/21 05:12 ABG pH 7.261 (7.320-7.450) L 03/12/21 04:06 POC ABG pCO2 79.6 mmHg (32.0-48.0) H 03/12/21 04:06 ABG pCO2 80.7 mm Hg 03/11/21 03:40 POC ABG pO2 105.2 mmHg (83-108) 03/12/21 04:06 ABG pO2 123.9 mm Hg (80.0-90.0) H 03/11/21 03:40 POC ABG HCO3 35.0 03/12/21 04:06 ABG HCO3 34.4 mmol/L (20.0-26.0) H 03/11/21 03:40 ABG O2 Saturation 97.0 (0-100) 03/12/21 04:06 ABG O2 Content 13.2 (0.0-44) 03/11/21 03:40 POC ABG Base Excess 6.2 03/12/21 04:06 ABG Base Excess 5.4 mmol/L (-2.0-3.0) H 03/11/21 03:40 ABG Hemoglobin 9.64 (12.0-17.5) L 03/12/21 04:06 ABG Oxyhemoglobin 94.8 (94-98) 03/12/21 04:06 ABG Carboxyhemoglobin 1.7 % (0.0-5.0) 03/11/21 03:40 ABG Methemoglobin 0.7 (0.0-1.5) 03/12/21 04:06 Oxyhemoglobin 95.3 % (95.0-99.0) 03/11/21 03:40 Carboxyhemoglobin 1.5 (0.5-1.5) 03/12/21 04:06 FiO2 100 % 03/11/21 03:40 FiO2 % 90.0 03/12/21 04:06 Sodium 147 mmol/L (137-145) H 03/12/21 04:30 Potassium 4.0 mmol/L (3.6-5.0) D 03/12/21 Unknown Chloride 106.5 mmol/L (98-107) 03/12/21 04:30 Carbon Dioxide 33 mmol/L (22-30) H 03/12/21 04:30 Anion Gap 14 mmol/L 03/12/21 04:30 BUN 61 mg/dL (7-17) H 03/12/21 04:30 Creatinine 0.8 mg/dL (0.6-1.2) 03/12/21 04:30 Estimated GFR > 60 ml/min 03/12/21 04:30 BUN/Creatinine Ratio 76 % 03/12/21 04:30 Glucose 132 mg/dL (65-100) H 03/12/21 04:30 POC Glucose 117 mg/dL (70-105) H 03/12/21 12:51 Lactic Acid 1.60 mmol/L (0.7-2.0) 02/17/21 18:39 Calcium 9.5 mg/dL (8.4-10.2) 03/12/21 04:30 Phosphorus 4.70 mg/dL (2.5-4.5) H 03/11/21 04:00 Magnesium 3.20 mg/dL (1.7-2.3) H 03/11/21 04:00 Ferritin 1526.0 ng/mL (10.0-200.0) H 03/01/21 05:12 Total Bilirubin 0.30 mg/dL (0.1-1.2) 03/05/21 10:10 Direct Bilirubin < 0.2 mg/dL (0-0.2) 02/17/21 14:34 Indirect Bilirubin 0.1 mg/dL 02/17/21 14:34 AST 38 units/L (5-40) 03/05/21 10:10 ALT 44 units/L (7-56) 03/05/21 10:10 Alkaline Phosphatase 78 units/L (35-129) 03/05/21 10:10 Lactate Dehydrogenase 385 units/L (91-180) H 03/01/21 05:12 C-Reactive Protein 11.20 mg/dL (0.00-1.30) H 03/01/21 05:12 NT-Pro-B Natriuret Pep 86.77 pg/mL (0-900) 02/20/21 16:34 Total Protein 7.7 g/dL (6.3-8.2) 03/05/21 10:10 Albumin 3.1 g/dL (3.9-5) L 03/05/21 10:10 Albumin/Globulin Ratio 0.7 % 03/05/21 10:10 Triglycerides 130 mg/dL (2-149) 03/12/21 04:30 Procalcitonin 0.11 ng/mL (<0.15) 02/19/21 07:32 Urine Color Cassandra (Yellow) 02/18/21 Unknown Urine Turbidity Cloudy (Clear) 02/18/21 Unknown Urine pH 5.0 (5.0-7.0) 02/18/21 Unknown Ur Specific [place] 1.027 (1.003-1.030) 02/18/21 Unknown Urine Protein 100 mg/dl mg/dL (Negative) 02/18/21 Unknown Urine Glucose (UA) Neg mg/dL (Negative) 02/18/21 Unknown Urine Ketones Neg mg/dL (Negative) 02/18/21 Unknown Urine Blood Neg (Negative) 02/18/21 Unknown Urine Nitrite Neg (Negative) 02/18/21 Unknown Urine Bilirubin Neg (Negative) 02/18/21 Unknown Urine Urobilinogen < 2.0 mg/dL (<2.0) 02/18/21 Unknown Ur Leukocyte Esterase Neg (Negative) 02/18/21 Unknown Urine WBC (Auto) 7.0 /HPF (0.0-6.0) H 02/18/21 Unknown Urine RBC (Auto) 4.0 /HPF (0.0-6.0) 02/18/21 Unknown U Epithel Cells (Auto) 3.0 /HPF (0-13.0) 02/18/21 Unknown Urine Mucus 2+ /HPF 02/18/21 Unknown Urine Creatinine 247.7 mg/dL (0.1-20.0) H 03/06/21 09:00 Urine Sodium 25 mmol/L 03/06/21 09:00 Coronavirus (PCR) Positive (Negative) A 02/18/21 Unknown Head/IV: Voiding Method Indwelling Catheter Active Medications - Current Medications Current Medications: Generic Name Dose Route Start Last Admin Trade Name Freq PRN Reason Stop Dose Admin Acetaminophen 650 mg 02/17/21 23:58 03/11/21 04:27 Acetaminophen 325 Mg Tab PO 650 mg Q4H PRN Administration Pain MILD(1-3)/Fever >100.5/BROWN Dextrose 0 ml 03/11/21 10:46 Dextrose 10% *Hypoglycemia IV PRN PRN Hypoglycemia Enoxaparin Sodium 90 mg 03/08/21 22:00 03/12/21 08:10 Enoxaparin 100 Mg/1 Ml Inj 1 mg/kg (90 mg) 90 mg SUB-Q Administration Q12HR [facility] Protocol Famotidine 20 mg 03/11/21 22:00 03/12/21 08:10 Famotidine 20 Mg Tab FEEDTUBE 20 mg BID [facility] Administration Fentanyl 50 mcg 03/05/21 09:38 03/12/21 17:58 Fentanyl 100 Mcg/2 Ml Inj IV 50 mcg Q10MIN PRN Administration ANALGESIA Gabapentin 400 mg 02/19/21 04:00 03/12/21 08:10 Gabapentin 400 Mg Cap PO 400 mg BID [facility] Administration Hydrophilic Ointment 1 applic 03/05/21 09:39 Lip Therapy Vaseline TP Q2HR PRN Dry Lips Propofol 1,000 mg in 100 mls @ 2.585 mls/hr 03/05/21 10:00 03/12/21 17:54 Diprivan 10 Mg/Ml IV 30 mcg/kg/min TITR DEISY 15.513 mls/hr Titration Protocol 5 MCG/KG/MIN Fentanyl Citrate 2,000 mcg in 100 mls @ 4.309 mls/hr 03/05/21 10:00 03/12/21 16:22 Fentanyl Drip Premix IV 4 mcg/kg/hr TITR DEISY 17.237 mls/hr Administration Protocol 1 MCG/KG/HR Midazolam HCl 100 mg/ Sodium 100 mls @ 1 mls/hr 03/05/21 11:00 03/11/21 19:48 Chloride IV 3 mg/hr TITR DEISY 3 mls/hr Administration Protocol 1 MG/HR NORepinephrine/NS 8 MG-250 ML 8 mg in 250 mls @ 3.75 mls/hr 03/05/21 10:15 03/12/21 14:52 Norepinephrine/Ns 8 Mg-250 Ml (Double Conc) IV 0 mcg/min TITRATE DEISY 0 mls/hr Titration Protocol 2 MCG/MIN Dexmedetomidine HCl 400 mcg/ 104 mls @ 4.482 mls/hr 03/05/21 14:00 Sodium Chloride IV TITRATE [facility] Protocol 0.2 MCG/KG/HR Vasopressin 20 unit/ Sodium 101 mls @ 9.09 mls/hr 03/06/21 06:00 03/08/21 10:30 Chloride IV 0 units/min TITR DEISY 0 mls/hr Titration Protocol 0.03 UNITS/MIN Insulin Glargine 10 units 03/02/21 22:00 03/11/21 21:32 Insulin Glargine 100 Units/Ml SUB-Q 10 units QHS DEISY Administration Insulin Human Lispro 0 unit 03/05/21 18:00 03/12/21 12:54 Insulin Lispro 100 Unit/Ml SUB-Q Not Given Q6HR [facility] Protocol Midazolam HCl 2 mg 03/05/21 10:11 03/05/21 10:53 Midazolam 2 Mg/2 Ml Inj IV 2 mg Q10MIN PRN Administration Sedation Multi-Ingred Cream/Lotion/Oil/Oint 1 applic 03/05/21 09:39 Mineral Oil/Petrolatum, White Ophth Oint 3.5 Gm OU Q4HR PRN Dry Eye(s) Ondansetron HCl 4 mg 02/17/21 23:58 Ondansetron 4 Mg/2 Ml Inj IV Q8H PRN Nausea And Vomiting Senna/Docusate Sodium 1 tab 03/05/21 10:00 03/12/21 08:10 Sennosides/Docusate Sodium 8.6/50 Mg Tab FEEDTUBE 1 tab BID DEISY Administration Sertraline HCl 50 mg 02/19/21 10:00 03/12/21 08:10 Sertraline 50 Mg Tab PO 50 mg QDAY DEISY Administration Sodium Chloride 10 ml 02/18/21 10:00 03/12/21 10:49 Sodium Chloride 0.9% 10 Ml Flush Syringe IV Not Given BID DEISY Sodium Chloride 10 ml 02/17/21 23:58 Sodium Chloride 0.9% 10 Ml Flush Syringe IV PRN PRN LINE FLUSH Sodium Chloride 10 ml 03/11/21 09:49 Sodium Chloride 0.9% 50 Ml Ivpb IV PRN PRN FLUSH Nutrition/Malnutrition Assess - Dietary Evaluation Nutrition/Malnutrition Findings: Nutrition Notes Start: 02/25/21 16:10 Freq: Status: Active Protocol: Document 03/11/21 16:53 ALEC (Rec: 03/11/21 17:06 ALEC [id number]) Nutrition Notes Initial or Follow up Brief Note Current Diet TF-Glucerna 1.2 Dagoberto @ 48 ml/hr (since D 03/08). Height 5 ft 6 in Weight 86.183 kg [place] Body Weight (kg) 59.09 BMI 30.7 Weight change and time frame No body weight change reported . Weight Status Obese Subjective/Other Information RD consult for routinr F/U on TF tolerance. Pt continues on mechanical ventilation. TF well tolerated, according to RN notes. Percent of energy/protein needs met: Prescribed Glucerna 1.2 Dagoberto @ 48 ml/hr provides for energy/ protein needs (1,390 Kcal/70 g ) during LOS, 100% Kcal; 75% AA. #2 Nutrition Diagnosis Inadequate oral intake Diagnosis Progress(for reassessment Continues documentation) #1 Nutrition Diagnosis Inadequate protein-energy intake Diagnosis Progress(for reassessment Continues documentation) Is patient on ventilator? Yes Is Patient Ambulatory and/or Out of Bed No REE-([place]-confined to bed) 1737.120 Calculation Used for Recommendations 70-80% energy needs Additional Notes Energy: [id number] kcal/day Protein: 1.3 g/kg adjBW: 94 g/ day Fluids: 1 ml/kcal, or as per MD. Nutrition Intervention Nutrition Support: Continue Glucerna 1.2 Dagoberto @ 50 ml/hr. Flush: 80 ml water Q 4 hr, or as per MD. Kcal 1,440 Protein (gm) 72 Carbohydrates (gm) 137 Fat (gm) 72 Fluid (mL) 966 Fiber (gm) 19 % RDI: 100% Kcal; 75% AA. Goal #1 Provide at least 75% of energy /protein needs through Enteral Feeding during LOS. Follow-Up By: 03/18/21 Additional Comments Continue monitoring TF tolerance and BM.
[2021-03-12] MEDS: INSULIN GLARGINE 100 UNITS/ML SUB-Q SCH (22:03)
[2021-03-13] MEDS: INSULIN LISPRO 100 UNIT/ML SUB-Q SCH ×4 (00:33→19:00)
[2021-03-13] MEDS: MIDAZOLAM 100 MG in SODIUM CHLORIDE 0.9% 80 ML IV SCH (02:10)
[2021-03-13] MEDS: FREE WATER PO SCH ×7 (02:24→21:05)
[2021-03-13] MEDS: fentaNYL DRIP Premix 2,000 MCG/100 ML BAG IV SCH ×4 (03:49→21:13)
[2021-03-13 06:15] LABS: ABG Base Excess 5.7 mmol/L (-2.0-3.0); ABG HCO3 34.9 mmol/L (20.0-26.0); ABG Methemoglobin 0.6 % (0.0-1.5); ABG Oxygen Saturation 96.6 % (95.0-99.0); ABG PCO2 83.9 mm Hg; ABG PH 7.238 pH Units (7.350-7.450); ABG PO2 94.9 mm Hg (80.0-90.0)
[2021-03-13 07:47] LABS: Mean Corpuscular HGB Conc 30 % (30-34); Mean Corpuscular Volume 93 fl (79-97); Platelet Count 243 K/mm3 (140-440); Red Blood Count 3.14 M/mm3 (3.65-5.03); Red Cell Distribution Width 15.8 % (13.2-15.2)
[2021-03-13 08:02] LABS: Hematocrit 29.3 % (30.3-42.9); Hemoglobin 8.8 gm/dl (10.1-14.3)
[2021-03-13 08:08] LABS: BUN/Creatinine Ratio 66; Blood Urea Nitrogen 66 mg/dL (7-17); Calcium 9.2 mg/dL (8.4-10.2); Hemolysis Index 9
[2021-03-13] MEDS: SENNOSIDES/DOCUSATE SODIUM 8.6/50 MG TAB FEEDTUBE SCH ×2 (11:01→21:06)
[2021-03-13] MEDS: GABAPENTIN 400 MG CAP PO SCH ×2 (11:01→21:05)
[2021-03-13] MEDS: ENOXAPARIN 100 MG/1 ML INJ SUB-Q SCH ×2 (11:01→21:05)
[2021-03-13] MEDS: SERTRALINE 50 MG TAB PO SCH (11:01)
[2021-03-13] MEDS: FAMOTIDINE 20 MG TAB FEEDTUBE SCH ×2 (11:04→21:06)
--- NOTE | 2021-03-13 14:09 | Progress Note ---
Assessment and Plan 61 y/o female with acute respiratory failure secondary to COVID 19 pneumonia. 03/13/21: K is better but looks like it may be trending up again. Continue to monitor. Continue anticoagulation. Wean FiO2 for sats >88% and PaO2>55. Goal would be to get FiO2 to at least 60% or less. Still making urine. Prognosis however remains guarded to poor. 03/12/21: K is elevated again today. No evidence of bleeding. Plateletes did drop but still good levels. Will monitor. Wean levophed as tolerated. Continues to make good urine. Guarded to poor prognosis. 03/11/21: K is elevated but renal function and urine output remains stable. M aintain current level of sedation. On Levophed, may need to give more volume. Ok with weaning FiO2 for sats >88% and or PaO2 of 55 and greater. Unable to prone at this time. Guarded prognosis. 03/08/21: Continue to monitor urine output and function. Consider more fluid today. Maintain current level of sedation. Wean FiO2 for sats >88% and or PaO2 >55. Prognosis still remains guarded. Please do not wean PEEP until FiO2 as at 45-50% 03/07/21: Continue supportive measures. Monitor urine output and function. Labs are better today and she did put out more urine with fluid bolus so will give again today. Overall prognosis remains extremely guarded. 03/06/21: Overall clinical state is worsening. Now with difficulty ventilation and with improved ventilation comes a compromise in oxygenation. Newest concern is renal function which is worsening. If patient requires dialysis then mortality increases and prognosis worsens. If requires HD, prognosis is very very guarded to poor. 03/05/21: Added versed drip to justin and Diprovan to keep RASS at -4. Will also order precedex in the event it is needed. Repeat ABG somewhat improved but increased RR. Must watch Peak Pressures. attempting to do low lung volume protective ventilator strategy. Patient has actually been off steroids for some time. Will not restart as of yet. Unable to prone. Guarded prognosis. This discussion was had over the weekend with the daughter when I thought we would have to intubate then. Explained that vent is not therapy but only something to give her lungs time to rest, if possible to see if they can recover. Prognosis is very guarded to poor. 03/04/21: Continue supportive care between HFNC and bipap therapy. Steroids. Positive reinforcement. 03/03/21: Long discussion at bedside with patient. Today she stated that she did not want to be intubated. I attempted to call her daughter while I was in the room with the patient but no answer. She will remain full code as she has said this in the past and then revoked after speaking with the daughter ( which is why i called her again this morning). Continue bipap and monitor. Guarded prognosis. 03/02/21: Prone if able. Continue steroids. Negative fluid balance if possible. Prognosis remains very guarded 02/28/21: Prone. Steroids. Net negative fluid balance if possible. Guarded prognosis. 02/27/21: Full code status. Prone as much as possible during the day and sleep prone at night. Patient may require intubation ultimately. Guarded prognosis. 02/26/21: Prone if possible. Continue anticoagulation for DVT. Steroids. Net negative fluid balance. 02/25/21: Long discussion at bedside with patient, whom per her, she has discussed this with her daughter. She does no want an endotracheal tube. She does not want chest compression and she does not want shocks. I did not ask about vasopressors. The patient is awake and alert and oriented. This needs to be addressed by primary team as well an if confirmed, I have no problem with cosigning AND order. Continue supportive measures for now. Guarded to poor prognosis. 02/21/21: BNP normal. Still would attempt to achieve net negative fluid balance daily. Continue Remdesivir and steroids. Prone if patient willing. Follow up CTA results. Discussed with IMS, may change anticoagulation but awaiting official ready on CTA. Guareded prognosis. 02/20/21: Follow up CTA results. Will send BNP. Continue steroids and Remdesivir. Guarded prognosis. Prone if able, very pertinent to do this. 1. self proning as tolerated during the day and prone at night while sleeping 2. Steroids and Remdesivir 3. Daily net negative volume state 4. Consider checking BNP and echo to make sure no edema on this film 5. Agree with empiric anticoagulation given elevated D-Dimer Guarded prognosis. Will continue to follow. Subjective Date of service: 03/13/21 Principal diagnosis: COVID pneumonia Interval history: Dropped FiO2 to 85%. Remains sedated. Still on PEEP 20. ABG was decent this am. Objective Vital Signs - 12hr 03/13/21 03/13/21 03/13/21 02:16 02:30 02:45 Temperature Pulse Rate 85 84 83 Pulse Rate [ From Monitor] Respiratory 30 H 30 H 30 H Rate Blood Pressure 110/76 96/58 94/61 O2 Sat by Pulse 98 96 92 Oximetry 03/13/21 03/13/21 03/13/21 03:00 03:15 03:30 Temperature Pulse Rate 83 82 81 Pulse Rate [ From Monitor] Respiratory 30 H 30 H 30 H Rate Blood Pressure 95/58 97/59 101/58 O2 Sat by Pulse 96 98 Oximetry 03/13/21 03/13/21 03/13/21 03:45 04:00 04:15 Temperature 98.0 F Pulse Rate 81 81 82 Pulse Rate [ 81 From Monitor] Respiratory 30 H 30 H 30 H Rate Blood Pressure 98/58 98/57 97/60 O2 Sat by Pulse 94 96 Oximetry 03/13/21 03/13/21 03/13/21 04:30 04:44 04:45 Temperature Pulse Rate 82 84 84 Pulse Rate [ From Monitor] Respiratory 30 H 30 H Rate Blood Pressure 97/58 96/60 96/60 O2 Sat by Pulse 98 94 Oximetry 03/13/21 03/13/21 03/13/21 05:00 05:15 05:30 Temperature Pulse Rate 84 84 84 Pulse Rate [ From Monitor] Respiratory 30 H 30 H 30 H Rate Blood Pressure 93/59 96/57 94/57 O2 Sat by Pulse 92 96 Oximetry 03/13/21 03/13/21 03/13/21 05:45 06:00 06:15 Temperature Pulse Rate 83 84 83 Pulse Rate [ From Monitor] Respiratory 30 H 30 H 30 H Rate Blood Pressure 93/56 97/58 93/58 O2 Sat by Pulse 97 Oximetry 03/13/21 03/13/21 03/13/21 06:30 06:45 07:00 Temperature Pulse Rate 83 84 83 Pulse Rate [ From Monitor] Respiratory 30 H 30 H 30 H Rate Blood Pressure 93/57 96/57 91/57 O2 Sat by Pulse 94 Oximetry 03/13/21 03/13/21 03/13/21 07:15 07:30 07:45 Temperature Pulse Rate 84 84 82 Pulse Rate [ From Monitor] Respiratory 30 H 30 H 30 H Rate Blood Pressure 91/56 92/56 93/55 O2 Sat by Pulse 98 98 98 Oximetry 03/13/21 03/13/21 03/13/21 07:50 08:00 08:15 Temperature Pulse Rate 83 82 81 Pulse Rate [ From Monitor] Respiratory 30 H 30 H Rate Blood Pressure 91/57 91/53 95/56 O2 Sat by Pulse 99 96 95 Oximetry 03/13/21 03/13/21 03/13/21 08:30 08:45 09:00 Temperature Pulse Rate 82 82 83 Pulse Rate [ From Monitor] Respiratory 30 H 30 H 30 H Rate Blood Pressure 104/59 104/60 101/63 O2 Sat by Pulse 97 96 97 Oximetry 03/13/21 03/13/21 03/13/21 09:15 09:30 09:45 Temperature Pulse Rate 83 85 85 Pulse Rate [ From Monitor] Respiratory 30 H 30 H 30 H Rate Blood Pressure 96/61 98/60 102/62 O2 Sat by Pulse 97 95 96 Oximetry 03/13/21 03/13/21 03/13/21 10:00 10:15 10:30 Temperature Pulse Rate 85 86 87 Pulse Rate [ From Monitor] Respiratory 30 H 16 21 Rate Blood Pressure 101/61 100/61 99/64 O2 Sat by Pulse 95 93 94 Oximetry 03/13/21 03/13/21 03/13/21 10:45 11:00 11:15 Temperature Pulse Rate 86 85 88 Pulse Rate [ From Monitor] Respiratory 15 12 15 Rate Blood Pressure 105/62 100/61 100/62 O2 Sat by Pulse 93 93 94 Oximetry 03/13/21 03/13/21 03/13/21 11:30 11:45 12:00 Temperature 98.9 F Pulse Rate 87 86 85 Pulse Rate [ From Monitor] Respiratory 19 21 17 Rate Blood Pressure 104/65 113/68 101/61 O2 Sat by Pulse 93 95 94 Oximetry 03/13/21 03/13/21 03/13/21 12:15 12:30 12:45 Temperature Pulse Rate 85 86 87 Pulse Rate [ From Monitor] Respiratory 12 24 30 H Rate Blood Pressure 103/61 96/63 101/61 O2 Sat by Pulse 94 93 94 Oximetry 03/13/21 03/13/21 03/13/21 13:00 13:15 13:30 Temperature Pulse Rate 87 89 88 Pulse Rate [ From Monitor] Respiratory 26 H 22 20 Rate Blood Pressure 107/63 105/63 104/65 O2 Sat by Pulse 95 94 96 Oximetry Constitutional: alert, other (on hiflo) ENT: oropharynx moist Neck: supple Ascultation: Bilateral: diminished breath sounds Cardiovascular: regular rate and rhythm Gastrointestinal: normoactive bowel sounds, soft, non-tender, non-distended Integumentary: normal Extremities: no cyanosis CBC and BMP: 03/13/21 07:00 03/13/21 07:00 ABG, PT/INR, D-dimer: ABG ABG pH 7.238 pH Units (7.350-7.450) L 03/13/21 05:38 POC ABG pCO2 79.6 mmHg (32.0-48.0) H 03/12/21 04:06 ABG pCO2 83.9 mm Hg 03/13/21 05:38 POC ABG pO2 105.2 mmHg (83-108) 03/12/21 04:06 ABG pO2 94.9 mm Hg (80.0-90.0) H 03/13/21 05:38 POC ABG HCO3 35.0 03/12/21 04:06 ABG O2 Saturation 96.6 % (95.0-99.0) 03/13/21 05:38 PT/INR, D-dimer PT 13.9 Sec. (12.2-14.9) 02/17/21 14:34 INR 0.96 (0.87-1.13) 02/17/21 14:34 D-Dimer 3469.99 ng/mlDDU (0-234) H 03/01/21 05:12 Abnormal lab findings: Abnormal Labs 02/17/21 02/17/21 02/17/21 14:34 14:34 14:34 WBC 11.7 H RBC Hgb Hct 44.9 H RDW 15.6 H Plt Count Seg Neuts % (Manual) Lymphocytes % (Manual) 9.0 L Monocytes % (Manual) 12.0 H Seg Neutrophils # Man 8.2 H Lymphocytes # (Manual) 1.1 L Monocytes # (Manual) 1.4 H D-Dimer ABG pH POC ABG pCO2 ABG pO2 ABG HCO3 ABG O2 Saturation ABG Base Excess ABG Hemoglobin Oxyhemoglobin Sodium Potassium 3.5 L Chloride Carbon Dioxide BUN 27 H Creatinine Glucose 150 H POC Glucose Lactic Acid 2.90 H* Calcium Phosphorus Magnesium Ferritin AST Lactate Dehydrogenase C-Reactive Protein NT-Pro-B Natriuret Pep Albumin Triglycerides Urine WBC (Auto) Urine Creatinine Coronavirus (PCR) 02/17/21 02/18/21 02/18/21 14:34 07:48 07:48 WBC 12.0 H RBC Hgb Hct RDW 15.4 H Plt Count Seg Neuts % (Manual) 76.0 H Lymphocytes % (Manual) Monocytes % (Manual) Seg Neutrophils # Man 9.1 H Lymphocytes # (Manual) Monocytes # (Manual) D-Dimer ABG pH POC ABG pCO2 ABG pO2 ABG HCO3 ABG O2 Saturation ABG Base Excess ABG Hemoglobin Oxyhemoglobin Sodium Potassium Chloride Carbon Dioxide BUN 36 H Creatinine Glucose 133 H POC Glucose Lactic Acid Calcium Phosphorus Magnesium Ferritin AST 57 H Lactate Dehydrogenase C-Reactive Protein NT-Pro-B Natriuret Pep 1619 H Albumin 3.3 L Triglycerides Urine WBC (Auto) Urine Creatinine Coronavirus (PCR) 02/18/21 02/18/21 02/19/21 Unknown Unknown 07:32 WBC RBC Hgb Hct RDW Plt Count Seg Neuts % (Manual) Lymphocytes % (Manual) Monocytes % (Manual) Seg Neutrophils # Man Lymphocytes # (Manual) Monocytes # (Manual) D-Dimer ABG pH POC ABG pCO2 ABG pO2 ABG HCO3 ABG O2 Saturation ABG Base Excess ABG Hemoglobin Oxyhemoglobin Sodium 148 H D Potassium Chloride Carbon Dioxide BUN 41 H Creatinine Glucose 123 H POC Glucose Lactic Acid Calcium Phosphorus Magnesium Ferritin AST 57 H Lactate Dehydrogenase C-Reactive Protein NT-Pro-B Natriuret Pep Albumin 3.7 L Triglycerides Urine WBC (Auto) 7.0 H Urine Creatinine Coronavirus (PCR) Positive A 02/19/21 02/19/21 02/20/21 07:32 08:43 05:00 WBC RBC Hgb Hct RDW Plt Count Seg Neuts % (Manual) Lymphocytes % (Manual) Monocytes % (Manual) Seg Neutrophils # Man Lymphocytes # (Manual) Monocytes # (Manual) D-Dimer > 17978 H ABG pH POC ABG pCO2 ABG pO2 ABG HCO3 ABG O2 Saturation ABG Base Excess ABG Hemoglobin Oxyhemoglobin Sodium 147 H Potassium Chloride 107.6 H Carbon Dioxide BUN 36 H Creatinine Glucose POC Glucose Lactic Acid Calcium Phosphorus Magnesium Ferritin AST Lactate Dehydrogenase C-Reactive Protein 10.90 H NT-Pro-B Natriuret Pep Albumin 3.3 L Triglycerides Urine WBC (Auto) Urine Creatinine Coronavirus (PCR) 02/20/21 02/21/21 02/21/21 18:46 04:44 04:44 WBC 16.7 H RBC Hgb Hct RDW Plt Count Seg Neuts % (Manual) Lymphocytes % (Manual) Monocytes % (Manual) Seg Neutrophils # Man Lymphocytes # (Manual) Monocytes # (Manual) D-Dimer ABG pH 7.453 H POC ABG pCO2 ABG pO2 55.0 L ABG HCO3 26.6 H ABG O2 Saturation 88.3 L ABG Base Excess ABG Hemoglobin Oxyhemoglobin 86.8 L Sodium Potassium Chloride Carbon Dioxide BUN 26 H Creatinine Glucose 111 H POC Glucose Lactic Acid Calcium Phosphorus Magnesium Ferritin AST Lactate Dehydrogenase C-Reactive Protein NT-Pro-B Natriuret Pep Albumin 3.4 L Triglycerides Urine WBC (Auto) Urine Creatinine Coronavirus (PCR) 02/22/21 02/23/21 02/23/21 04:47 09:05 09:05 WBC 19.3 H RBC 5.29 H Hgb 15.2 H Hct 47.7 H D RDW Plt Count Seg Neuts % (Manual) 82.0 H Lymphocytes % (Manual) 6.0 L Monocytes % (Manual) Seg Neutrophils # Man 15.8 H Lymphocytes # (Manual) Monocytes # (Manual) 1.0 H D-Dimer ABG pH POC ABG pCO2 ABG pO2 ABG HCO3 ABG O2 Saturation ABG Base Excess ABG Hemoglobin Oxyhemoglobin Sodium Potassium Chloride Carbon Dioxide BUN 25 H 27 H Creatinine Glucose 125 H POC Glucose Lactic Acid Calcium Phosphorus Magnesium Ferritin AST Lactate Dehydrogenase C-Reactive Protein NT-Pro-B Natriuret Pep Albumin 3.3 L Triglycerides Urine WBC (Auto) Urine Creatinine Coronavirus (PCR) 02/23/21 02/23/21 02/24/21 11:33 16:24 04:50 WBC 14.8 H RBC Hgb Hct RDW Plt Count Seg Neuts % (Manual) Lymphocytes % (Manual) Monocytes % (Manual) Seg Neutrophils # Man Lymphocytes # (Manual) Monocytes # (Manual) D-Dimer ABG pH POC ABG pCO2 ABG pO2 ABG HCO3 ABG O2 Saturation ABG Base Excess ABG Hemoglobin Oxyhemoglobin Sodium Potassium Chloride Carbon Dioxide BUN Creatinine Glucose POC Glucose 117 H 163 H Lactic Acid Calcium Phosphorus Magnesium Ferritin AST Lactate Dehydrogenase C-Reactive Protein NT-Pro-B Natriuret Pep Albumin Triglycerides Urine WBC (Auto) Urine Creatinine Coronavirus (PCR) 02/24/21 02/25/21 02/27/21 04:50 21:12 04:57 WBC 17.0 H RBC Hgb Hct 43.4 H RDW Plt Count Seg Neuts % (Manual) 84.0 H Lymphocytes % (Manual) 4.0 L Monocytes % (Manual) Seg Neutrophils # Man 14.3 H Lymphocytes # (Manual) 0.7 L Monocytes # (Manual) 0.9 H D-Dimer ABG pH POC ABG pCO2 ABG pO2 ABG HCO3 ABG O2 Saturation ABG Base Excess ABG Hemoglobin Oxyhemoglobin Sodium Potassium Chloride Carbon Dioxide BUN 23 H Creatinine Glucose POC Glucose 175 H Lactic Acid Calcium Phosphorus Magnesium Ferritin AST Lactate Dehydrogenase C-Reactive Protein NT-Pro-B Natriuret Pep Albumin Triglycerides Urine WBC (Auto) Urine Creatinine Coronavirus (PCR) 02/27/21 02/27/21 02/27/21 04:57 04:57 04:57 WBC RBC Hgb Hct RDW Plt Count Seg Neuts % (Manual) Lymphocytes % (Manual) Monocytes % (Manual) Seg Neutrophils # Man Lymphocytes # (Manual) Monocytes # (Manual) D-Dimer 5013.37 H ABG pH POC ABG pCO2 ABG pO2 ABG HCO3 ABG O2 Saturation ABG Base Excess ABG Hemoglobin Oxyhemoglobin Sodium Potassium Chloride Carbon Dioxide BUN 23 H Creatinine 0.5 L Glucose 113 H POC Glucose Lactic Acid Calcium Phosphorus Magnesium Ferritin 1272.0 H AST Lactate Dehydrogenase 438 H C-Reactive Protein 5.80 H NT-Pro-B Natriuret Pep Albumin Triglycerides Urine WBC (Auto) Urine Creatinine Coronavirus (PCR) 02/27/21 02/27/21 02/28/21 17:53 21:12 07:40 WBC RBC Hgb Hct RDW Plt Count Seg Neuts % (Manual) Lymphocytes % (Manual) Monocytes % (Manual) Seg Neutrophils # Man Lymphocytes # (Manual) Monocytes # (Manual) D-Dimer ABG pH POC ABG pCO2 ABG pO2 ABG HCO3 ABG O2 Saturation ABG Base Excess ABG Hemoglobin Oxyhemoglobin Sodium Potassium Chloride Carbon Dioxide BUN Creatinine Glucose POC Glucose 159 H 112 H 123 H Lactic Acid Calcium Phosphorus Magnesium Ferritin AST Lactate Dehydrogenase C-Reactive Protein NT-Pro-B Natriuret Pep Albumin Triglycerides Urine WBC (Auto) Urine Creatinine Coronavirus (PCR) 02/28/21 02/28/21 02/28/21 11:42 16:20 22:26 WBC RBC Hgb Hct RDW Plt Count Seg Neuts % (Manual) Lymphocytes % (Manual) Monocytes % (Manual) Seg Neutrophils # Man Lymphocytes # (Manual) Monocytes # (Manual) D-Dimer ABG pH POC ABG pCO2 ABG pO2 ABG HCO3 ABG O2 Saturation ABG Base Excess ABG Hemoglobin Oxyhemoglobin Sodium Potassium Chloride Carbon Dioxide BUN Creatinine Glucose POC Glucose 112 H 138 H 129 H Lactic Acid Calcium Phosphorus Magnesium Ferritin AST Lactate Dehydrogenase C-Reactive Protein NT-Pro-B Natriuret Pep Albumin Triglycerides Urine WBC (Auto) Urine Creatinine Coronavirus (PCR) 03/01/21 03/01/21 03/01/21 05:12 05:12 05:12 WBC 15.0 H RBC 5.05 H Hgb Hct 44.7 H RDW Plt Count Seg Neuts % (Manual) 71.0 H Lymphocytes % (Manual) 11.0 L Monocytes % (Manual) 12.0 H Seg Neutrophils # Man 10.7 H Lymphocytes # (Manual) Monocytes # (Manual) 1.8 H D-Dimer 3469.99 H ABG pH POC ABG pCO2 ABG pO2 ABG HCO3 ABG O2 Saturation ABG Base Excess ABG Hemoglobin Oxyhemoglobin Sodium Potassium Chloride 97.3 L Carbon Dioxide BUN Creatinine 0.5 L Glucose 115 H POC Glucose Lactic Acid Calcium Phosphorus Magnesium Ferritin AST Lactate Dehydrogenase 385 H C-Reactive Protein 11.20 H NT-Pro-B Natriuret Pep Albumin 2.8 L Triglycerides Urine WBC (Auto) Urine Creatinine Coronavirus (PCR) 03/01/21 03/01/21 03/01/21 05:12 07:30 11:42 WBC RBC Hgb Hct RDW Plt Count Seg Neuts % (Manual) Lymphocytes % (Manual) Monocytes % (Manual) Seg Neutrophils # Man Lymphocytes # (Manual) Monocytes # (Manual) D-Dimer ABG pH POC ABG pCO2 ABG pO2 ABG HCO3 ABG O2 Saturation ABG Base Excess ABG Hemoglobin Oxyhemoglobin Sodium Potassium Chloride Carbon Dioxide BUN Creatinine Glucose POC Glucose 130 H 143 H Lactic Acid Calcium Phosphorus Magnesium Ferritin 1526.0 H AST Lactate Dehydrogenase C-Reactive Protein NT-Pro-B Natriuret Pep Albumin Triglycerides Urine WBC (Auto) Urine Creatinine Coronavirus (PCR) 03/01/21 03/01/21 03/01/21 15:28 17:53 21:16 WBC RBC Hgb Hct RDW Plt Count Seg Neuts % (Manual) Lymphocytes % (Manual) Monocytes % (Manual) Seg Neutrophils # Man Lymphocytes # (Manual) Monocytes # (Manual) D-Dimer ABG pH POC ABG pCO2 ABG pO2 ABG HCO3 ABG O2 Saturation ABG Base Excess ABG Hemoglobin Oxyhemoglobin Sodium Potassium Chloride Carbon Dioxide BUN Creatinine Glucose POC Glucose 138 H 120 H 157 H Lactic Acid Calcium Phosphorus Magnesium Ferritin AST Lactate Dehydrogenase C-Reactive Protein NT-Pro-B Natriuret Pep Albumin Triglycerides Urine WBC (Auto) Urine Creatinine Coronavirus (PCR) 03/01/21 03/02/21 03/02/21 22:07 07:44 11:40 WBC RBC Hgb Hct RDW Plt Count Seg Neuts % (Manual) Lymphocytes % (Manual) Monocytes % (Manual) Seg Neutrophils # Man Lymphocytes # (Manual) Monocytes # (Manual) D-Dimer ABG pH POC ABG pCO2 ABG pO2 35.9 L* ABG HCO3 31.2 H ABG O2 Saturation 68.0 L ABG Base Excess 6.1 H ABG Hemoglobin Oxyhemoglobin 66.1 L Sodium Potassium Chloride Carbon Dioxide BUN Creatinine Glucose POC Glucose 125 H 203 H Lactic Acid Calcium Phosphorus Magnesium Ferritin AST Lactate Dehydrogenase C-Reactive Protein NT-Pro-B Natriuret Pep Albumin Triglycerides Urine WBC (Auto) Urine Creatinine Coronavirus (PCR) 03/02/21 03/02/21 03/02/21 12:13 13:00 17:15 WBC RBC Hgb Hct RDW Plt Count Seg Neuts % (Manual) Lymphocytes % (Manual) Monocytes % (Manual) Seg Neutrophils # Man Lymphocytes # (Manual) Monocytes # (Manual) D-Dimer ABG pH POC ABG pCO2 ABG pO2 36.0 L* ABG HCO3 29.5 H ABG O2 Saturation 68.7 L ABG Base Excess 4.7 H ABG Hemoglobin Oxyhemoglobin 66.8 L Sodium Potassium Chloride Carbon Dioxide BUN Creatinine Glucose POC Glucose 130 H 126 H Lactic Acid Calcium Phosphorus Magnesium Ferritin AST Lactate Dehydrogenase C-Reactive Protein NT-Pro-B Natriuret Pep Albumin Triglycerides Urine WBC (Auto) Urine Creatinine Coronavirus (PCR) 03/02/21 03/03/21 03/03/21 21:45 08:02 10:05 WBC 19.2 H RBC Hgb Hct 44.9 H RDW Plt Count Seg Neuts % (Manual) 85.0 H Lymphocytes % (Manual) 7.0 L Monocytes % (Manual) Seg Neutrophils # Man 16.3 H Lymphocytes # (Manual) Monocytes # (Manual) 1.2 H D-Dimer ABG pH POC ABG pCO2 ABG pO2 ABG HCO3 ABG O2 Saturation ABG Base Excess ABG Hemoglobin Oxyhemoglobin Sodium Potassium Chloride Carbon Dioxide BUN Creatinine Glucose POC Glucose 113 H 128 H Lactic Acid Calcium Phosphorus Magnesium Ferritin AST Lactate Dehydrogenase C-Reactive Protein NT-Pro-B Natriuret Pep Albumin Triglycerides Urine WBC (Auto) Urine Creatinine Coronavirus (PCR) 03/03/21 03/03/21 03/03/21 10:05 12:45 16:31 WBC RBC Hgb Hct RDW Plt Count Seg Neuts % (Manual) Lymphocytes % (Manual) Monocytes % (Manual) Seg Neutrophils # Man Lymphocytes # (Manual) Monocytes # (Manual) D-Dimer ABG pH POC ABG pCO2 ABG pO2 47.7 L ABG HCO3 31.5 H ABG O2 Saturation 82.5 L ABG Base Excess 5.6 H ABG Hemoglobin Oxyhemoglobin 80.4 L Sodium Potassium Chloride 97.8 L Carbon Dioxide BUN 23 H Creatinine Glucose 141 H POC Glucose 126 H Lactic Acid Calcium Phosphorus Magnesium Ferritin AST Lactate Dehydrogenase C-Reactive Protein NT-Pro-B Natriuret Pep Albumin 3.2 L Triglycerides Urine WBC (Auto) Urine Creatinine Coronavirus (PCR) 03/03/21 03/04/21 03/04/21 20:52 07:24 11:04 WBC RBC Hgb Hct RDW Plt Count Seg Neuts % (Manual) Lymphocytes % (Manual) Monocytes % (Manual) Seg Neutrophils # Man Lymphocytes # (Manual) Monocytes # (Manual) D-Dimer ABG pH POC ABG pCO2 ABG pO2 ABG HCO3 ABG O2 Saturation ABG Base Excess ABG Hemoglobin Oxyhemoglobin Sodium Potassium Chloride Carbon Dioxide BUN Creatinine Glucose POC Glucose 152 H 126 H 142 H Lactic Acid Calcium Phosphorus Magnesium Ferritin AST Lactate Dehydrogenase C-Reactive Protein NT-Pro-B Natriuret Pep Albumin Triglycerides Urine WBC (Auto) Urine Creatinine Coronavirus (PCR) 03/04/21 03/04/21 03/04/21 11:05 15:33 21:12 WBC RBC Hgb Hct RDW Plt Count Seg Neuts % (Manual) Lymphocytes % (Manual) Monocytes % (Manual) Seg Neutrophils # Man Lymphocytes # (Manual) Monocytes # (Manual) D-Dimer ABG pH POC ABG pCO2 ABG pO2 ABG HCO3 ABG O2 Saturation ABG Base Excess ABG Hemoglobin Oxyhemoglobin Sodium Potassium Chloride Carbon Dioxide BUN 34 H Creatinine Glucose 143 H POC Glucose 114 H 180 H Lactic Acid Calcium Phosphorus Magnesium Ferritin AST Lactate Dehydrogenase C-Reactive Protein NT-Pro-B Natriuret Pep Albumin Triglycerides Urine WBC (Auto) Urine Creatinine Coronavirus (PCR) 03/04/21 03/05/21 03/05/21 21:30 07:51 10:10 WBC 17.8 H RBC Hgb 14.5 H Hct 45.8 H RDW 15.3 H Plt Count 446 H Seg Neuts % (Manual) 77.0 H Lymphocytes % (Manual) 12.0 L Monocytes % (Manual) Seg Neutrophils # Man 13.7 H Lymphocytes # (Manual) Monocytes # (Manual) 0.9 H D-Dimer ABG pH 7.473 H POC ABG pCO2 ABG pO2 34.1 L* ABG HCO3 29.7 H ABG O2 Saturation 66.4 L ABG Base Excess 5.6 H ABG Hemoglobin Oxyhemoglobin 64.9 L Sodium Potassium Chloride Carbon Dioxide BUN Creatinine Glucose POC Glucose 144 H Lactic Acid Calcium Phosphorus Magnesium Ferritin AST Lactate Dehydrogenase C-Reactive Protein NT-Pro-B Natriuret Pep Albumin Triglycerides Urine WBC (Auto) Urine Creatinine Coronavirus (PCR) 03/05/21 03/05/21 03/05/21 10:10 11:41 12:23 WBC RBC Hgb Hct RDW Plt Count Seg Neuts % (Manual) Lymphocytes % (Manual) Monocytes % (Manual) Seg Neutrophils # Man Lymphocytes # (Manual) Monocytes # (Manual) D-Dimer ABG pH 7.226 L POC ABG pCO2 ABG pO2 50.5 L ABG HCO3 32.8 H ABG O2 Saturation 73.6 L ABG Base Excess ABG Hemoglobin 18.2 H Oxyhemoglobin 71.8 L Sodium Potassium 3.5 L Chloride Carbon Dioxide BUN 51 H Creatinine Glucose 217 H POC Glucose 124 H Lactic Acid Calcium Phosphorus Magnesium Ferritin AST Lactate Dehydrogenase C-Reactive Protein NT-Pro-B Natriuret Pep Albumin 3.1 L Triglycerides Urine WBC (Auto) Urine Creatinine Coronavirus (PCR) 03/05/21 03/05/21 03/06/21 16:40 22:39 00:37 WBC RBC Hgb Hct RDW Plt Count Seg Neuts % (Manual) Lymphocytes % (Manual) Monocytes % (Manual) Seg Neutrophils # Man Lymphocytes # (Manual) Monocytes # (Manual) D-Dimer ABG pH POC ABG pCO2 ABG pO2 ABG HCO3 ABG O2 Saturation ABG Base Excess ABG Hemoglobin Oxyhemoglobin Sodium Potassium Chloride Carbon Dioxide BUN Creatinine Glucose POC Glucose 138 H 139 H 126 H Lactic Acid Calcium Phosphorus Magnesium Ferritin AST Lactate Dehydrogenase C-Reactive Protein NT-Pro-B Natriuret Pep Albumin Triglycerides Urine WBC (Auto) Urine Creatinine Coronavirus (PCR) 03/06/21 03/06/21 03/06/21 04:25 06:13 06:13 WBC 18.4 H RBC Hgb Hct RDW 15.3 H Plt Count Seg Neuts % (Manual) Lymphocytes % (Manual) Monocytes % (Manual) Seg Neutrophils # Man Lymphocytes # (Manual) Monocytes # (Manual) D-Dimer ABG pH 7.028 L* POC ABG pCO2 ABG pO2 ABG HCO3 33.8 H ABG O2 Saturation 92.5 L ABG Base Excess ABG Hemoglobin Oxyhemoglobin 90.6 L Sodium 149 H Potassium Chloride 107.2 H Carbon Dioxide BUN 62 H Creatinine 1.9 H D Glucose 140 H POC Glucose Lactic Acid Calcium 7.7 L D Phosphorus 10.70 H Magnesium 2.40 H Ferritin AST Lactate Dehydrogenase C-Reactive Protein NT-Pro-B Natriuret Pep Albumin Triglycerides Urine WBC (Auto) Urine Creatinine Coronavirus (PCR) 03/06/21 03/06/21 03/06/21 06:13 09:00 12:00 WBC RBC Hgb Hct RDW Plt Count Seg Neuts % (Manual) Lymphocytes % (Manual) Monocytes % (Manual) Seg Neutrophils # Man Lymphocytes # (Manual) Monocytes # (Manual) D-Dimer ABG pH POC ABG pCO2 ABG pO2 ABG HCO3 ABG O2 Saturation ABG Base Excess ABG Hemoglobin Oxyhemoglobin Sodium Potassium Chloride Carbon Dioxide BUN Creatinine Glucose POC Glucose 155 H 122 H Lactic Acid Calcium Phosphorus Magnesium Ferritin AST Lactate Dehydrogenase C-Reactive Protein NT-Pro-B Natriuret Pep Albumin Triglycerides Urine WBC (Auto) Urine Creatinine 247.7 H Coronavirus (PCR) 03/06/21 03/06/21 03/06/21 17:16 22:23 Unknown WBC RBC Hgb Hct RDW Plt Count Seg Neuts % (Manual) Lymphocytes % (Manual) Monocytes % (Manual) Seg Neutrophils # Man Lymphocytes # (Manual) Monocytes # (Manual) D-Dimer ABG pH 7.253 L POC ABG pCO2 ABG pO2 66.5 L ABG HCO3 31.3 H ABG O2 Saturation 91.8 L ABG Base Excess ABG Hemoglobin 16.8 H Oxyhemoglobin 90.1 L Sodium Potassium Chloride Carbon Dioxide BUN Creatinine Glucose POC Glucose 123 H 123 H Lactic Acid Calcium Phosphorus Magnesium Ferritin AST Lactate Dehydrogenase C-Reactive Protein NT-Pro-B Natriuret Pep Albumin Triglycerides Urine WBC (Auto) Urine Creatinine Coronavirus (PCR) 03/07/21 03/07/21 03/07/21 00:36 04:05 04:05 WBC 18.0 H RBC Hgb Hct RDW Plt Count Seg Neuts % (Manual) Lymphocytes % (Manual) Monocytes % (Manual) Seg Neutrophils # Man Lymphocytes # (Manual) Monocytes # (Manual) D-Dimer ABG pH POC ABG pCO2 ABG pO2 ABG HCO3 ABG O2 Saturation ABG Base Excess ABG Hemoglobin Oxyhemoglobin Sodium Potassium Chloride Carbon Dioxide BUN 75 H Creatinine 1.5 H Glucose 113 H POC Glucose 121 H Lactic Acid Calcium Phosphorus Magnesium Ferritin AST Lactate Dehydrogenase C-Reactive Protein NT-Pro-B Natriuret Pep Albumin Triglycerides Urine WBC (Auto) Urine Creatinine Coronavirus (PCR) 03/07/21 03/07/21 03/07/21 04:05 04:49 05:38 WBC RBC Hgb Hct RDW Plt Count Seg Neuts % (Manual) Lymphocytes % (Manual) Monocytes % (Manual) Seg Neutrophils # Man Lymphocytes # (Manual) Monocytes # (Manual) D-Dimer ABG pH 7.280 L POC ABG pCO2 ABG pO2 ABG HCO3 29.3 H ABG O2 Saturation ABG Base Excess ABG Hemoglobin Oxyhemoglobin 94.4 L Sodium Potassium Chloride Carbon Dioxide BUN Creatinine Glucose POC Glucose 112 H Lactic Acid Calcium Phosphorus Magnesium Ferritin AST Lactate Dehydrogenase C-Reactive Protein NT-Pro-B Natriuret Pep Albumin Triglycerides 171 H Urine WBC (Auto) Urine Creatinine Coronavirus (PCR) 03/07/21 03/07/21 03/08/21 12:13 18:13 04:30 WBC 12.5 H RBC Hgb Hct RDW Plt Count Seg Neuts % (Manual) Lymphocytes % (Manual) Monocytes % (Manual) Seg Neutrophils # Man Lymphocytes # (Manual) Monocytes # (Manual) D-Dimer ABG pH POC ABG pCO2 ABG pO2 ABG HCO3 ABG O2 Saturation ABG Base Excess ABG Hemoglobin Oxyhemoglobin Sodium Potassium Chloride Carbon Dioxide BUN Creatinine Glucose POC Glucose 113 H 111 H Lactic Acid Calcium Phosphorus Magnesium Ferritin AST Lactate Dehydrogenase C-Reactive Protein NT-Pro-B Natriuret Pep Albumin Triglycerides Urine WBC (Auto) Urine Creatinine Coronavirus (PCR) 03/08/21 03/08/21 03/08/21 04:30 05:04 10:00 WBC RBC Hgb Hct RDW Plt Count Seg Neuts % (Manual) Lymphocytes % (Manual) Monocytes % (Manual) Seg Neutrophils # Man Lymphocytes # (Manual) Monocytes # (Manual) D-Dimer ABG pH POC ABG pCO2 ABG pO2 73.8 L ABG HCO3 28.9 H ABG O2 Saturation ABG Base Excess ABG Hemoglobin 11.0 L Oxyhemoglobin 93.4 L Sodium Potassium Chloride Carbon Dioxide BUN 69 H Creatinine Glucose 107 H POC Glucose 111 H Lactic Acid Calcium Phosphorus Magnesium Ferritin AST Lactate Dehydrogenase C-Reactive Protein NT-Pro-B Natriuret Pep Albumin Triglycerides Urine WBC (Auto) Urine Creatinine Coronavirus (PCR) 03/08/21 03/08/21 03/09/21 17:09 21:35 04:00 WBC 11.4 H RBC 3.21 L Hgb 9.4 L Hct 29.6 L RDW Plt Count Seg Neuts % (Manual) Lymphocytes % (Manual) Monocytes % (Manual) Seg Neutrophils # Man Lymphocytes # (Manual) Monocytes # (Manual) D-Dimer ABG pH POC ABG pCO2 ABG pO2 ABG HCO3 ABG O2 Saturation ABG Base Excess ABG Hemoglobin Oxyhemoglobin Sodium Potassium Chloride Carbon Dioxide BUN Creatinine Glucose POC Glucose 114 H 128 H Lactic Acid Calcium Phosphorus Magnesium Ferritin AST Lactate Dehydrogenase C-Reactive Protein NT-Pro-B Natriuret Pep Albumin Triglycerides Urine WBC (Auto) Urine Creatinine Coronavirus (PCR) 03/09/21 03/09/21 03/09/21 04:00 04:11 11:25 WBC RBC Hgb Hct RDW Plt Count Seg Neuts % (Manual) Lymphocytes % (Manual) Monocytes % (Manual) Seg Neutrophils # Man Lymphocytes # (Manual) Monocytes # (Manual) D-Dimer ABG pH 7.260 L POC ABG pCO2 ABG pO2 ABG HCO3 30.5 H ABG O2 Saturation ABG Base Excess ABG Hemoglobin 9.4 L Oxyhemoglobin 93.9 L Sodium Potassium Chloride Carbon Dioxide BUN 74 H Creatinine 1.3 H Glucose 117 H POC Glucose 122 H Lactic Acid Calcium Phosphorus Magnesium Ferritin AST Lactate Dehydrogenase C-Reactive Protein NT-Pro-B Natriuret Pep Albumin Triglycerides Urine WBC (Auto) Urine Creatinine Coronavirus (PCR) 03/09/21 03/09/21 03/09/21 18:02 21:04 23:30 WBC RBC Hgb Hct RDW Plt Count Seg Neuts % (Manual) Lymphocytes % (Manual) Monocytes % (Manual) Seg Neutrophils # Man Lymphocytes # (Manual) Monocytes # (Manual) D-Dimer ABG pH POC ABG pCO2 ABG pO2 ABG HCO3 ABG O2 Saturation ABG Base Excess ABG Hemoglobin Oxyhemoglobin Sodium Potassium Chloride Carbon Dioxide BUN Creatinine Glucose POC Glucose 106 H 116 H 109 H Lactic Acid Calcium Phosphorus Magnesium Ferritin AST Lactate Dehydrogenase C-Reactive Protein NT-Pro-B Natriuret Pep Albumin Triglycerides Urine WBC (Auto) Urine Creatinine Coronavirus (PCR) 03/10/21 03/10/21 03/10/21 02:43 04:00 04:00 WBC 11.6 H RBC 3.30 L Hgb 9.7 L Hct RDW 16.1 H Plt Count Seg Neuts % (Manual) Lymphocytes % (Manual) Monocytes % (Manual) Seg Neutrophils # Man Lymphocytes # (Manual) Monocytes # (Manual) D-Dimer ABG pH 7.268 L POC ABG pCO2 ABG pO2 113.4 H ABG HCO3 31.9 H ABG O2 Saturation ABG Base Excess 3.6 H ABG Hemoglobin 9.9 L Oxyhemoglobin Sodium Potassium Chloride Carbon Dioxide BUN 74 H Creatinine Glucose 132 H POC Glucose Lactic Acid Calcium Phosphorus Magnesium Ferritin AST Lactate Dehydrogenase C-Reactive Protein NT-Pro-B Natriuret Pep Albumin Triglycerides Urine WBC (Auto) Urine Creatinine Coronavirus (PCR) 03/10/21 03/10/21 03/10/21 05:08 11:29 16:23 WBC RBC Hgb Hct RDW Plt Count Seg Neuts % (Manual) Lymphocytes % (Manual) Monocytes % (Manual) Seg Neutrophils # Man Lymphocytes # (Manual) Monocytes # (Manual) D-Dimer ABG pH POC ABG pCO2 ABG pO2 ABG HCO3 ABG O2 Saturation ABG Base Excess ABG Hemoglobin Oxyhemoglobin Sodium Potassium Chloride Carbon Dioxide BUN Creatinine Glucose POC Glucose 117 H 128 H 116 H Lactic Acid Calcium Phosphorus Magnesium Ferritin AST Lactate Dehydrogenase C-Reactive Protein NT-Pro-B Natriuret Pep Albumin Triglycerides Urine WBC (Auto) Urine Creatinine Coronavirus (PCR) 03/10/21 03/10/21 03/11/21 21:15 23:39 03:40 WBC RBC Hgb Hct RDW Plt Count Seg Neuts % (Manual) Lymphocytes % (Manual) Monocytes % (Manual) Seg Neutrophils # Man Lymphocytes # (Manual) Monocytes # (Manual) D-Dimer ABG pH 7.247 L POC ABG pCO2 ABG pO2 123.9 H ABG HCO3 34.4 H ABG O2 Saturation ABG Base Excess 5.4 H ABG Hemoglobin 9.7 L Oxyhemoglobin Sodium Potassium Chloride Carbon Dioxide BUN Creatinine Glucose POC Glucose 123 H 124 H Lactic Acid Calcium Phosphorus Magnesium Ferritin AST Lactate Dehydrogenase C-Reactive Protein NT-Pro-B Natriuret Pep Albumin Triglycerides Urine WBC (Auto) Urine Creatinine Coronavirus (PCR) 03/11/21 03/11/21 03/11/21 04:00 04:00 05:32 WBC 12.1 H RBC 3.30 L Hgb 9.5 L Hct RDW 15.5 H Plt Count Seg Neuts % (Manual) Lymphocytes % (Manual) Monocytes % (Manual) Seg Neutrophils # Man Lymphocytes # (Manual) Monocytes # (Manual) D-Dimer ABG pH POC ABG pCO2 ABG pO2 ABG HCO3 ABG O2 Saturation ABG Base Excess ABG Hemoglobin Oxyhemoglobin Sodium 148 H Potassium 5.7 H Chloride 107.7 H Carbon Dioxide BUN 63 H Creatinine Glucose 135 H POC Glucose 147 H Lactic Acid Calcium Phosphorus 4.70 H Magnesium 3.20 H Ferritin AST Lactate Dehydrogenase C-Reactive Protein NT-Pro-B Natriuret Pep Albumin Triglycerides Urine WBC (Auto) Urine Creatinine Coronavirus (PCR) 03/11/21 03/11/21 03/11/21 11:35 17:50 21:29 WBC RBC Hgb Hct RDW Plt Count Seg Neuts % (Manual) Lymphocytes % (Manual) Monocytes % (Manual) Seg Neutrophils # Man Lymphocytes # (Manual) Monocytes # (Manual) D-Dimer ABG pH POC ABG pCO2 ABG pO2 ABG HCO3 ABG O2 Saturation ABG Base Excess ABG Hemoglobin Oxyhemoglobin Sodium Potassium Chloride Carbon Dioxide BUN Creatinine Glucose POC Glucose 136 H 109 H 114 H Lactic Acid Calcium Phosphorus Magnesium Ferritin AST Lactate Dehydrogenase C-Reactive Protein NT-Pro-B Natriuret Pep Albumin Triglycerides Urine WBC (Auto) Urine Creatinine Coronavirus (PCR) 03/12/21 03/12/21 03/12/21 00:43 04:06 04:30 WBC 11.2 H RBC 3.16 L Hgb 9.1 L Hct 29.5 L RDW 16.1 H Plt Count Seg Neuts % (Manual) Lymphocytes % (Manual) Monocytes % (Manual) Seg Neutrophils # Man Lymphocytes # (Manual) Monocytes # (Manual) D-Dimer ABG pH 7.261 L POC ABG pCO2 79.6 H ABG pO2 ABG HCO3 ABG O2 Saturation ABG Base Excess ABG Hemoglobin 9.64 L Oxyhemoglobin Sodium Potassium Chloride Carbon Dioxide BUN Creatinine Glucose POC Glucose 112 H Lactic Acid Calcium Phosphorus Magnesium Ferritin AST Lactate Dehydrogenase C-Reactive Protein NT-Pro-B Natriuret Pep Albumin Triglycerides Urine WBC (Auto) Urine Creatinine Coronavirus (PCR) 03/12/21 03/12/21 03/12/21 04:30 05:24 09:16 WBC RBC Hgb Hct RDW Plt Count Seg Neuts % (Manual) Lymphocytes % (Manual) Monocytes % (Manual) Seg Neutrophils # Man Lymphocytes # (Manual) Monocytes # (Manual) D-Dimer ABG pH POC ABG pCO2 ABG pO2 ABG HCO3 ABG O2 Saturation ABG Base Excess ABG Hemoglobin Oxyhemoglobin Sodium 147 H Potassium 6.2 H* Chloride Carbon Dioxide 33 H BUN 61 H Creatinine Glucose 132 H POC Glucose 122 H 117 H Lactic Acid Calcium Phosphorus Magnesium Ferritin AST Lactate Dehydrogenase C-Reactive Protein NT-Pro-B Natriuret Pep Albumin Triglycerides Urine WBC (Auto) Urine Creatinine Coronavirus (PCR) 03/12/21 03/12/21 03/12/21 10:12 12:51 18:29 WBC RBC Hgb Hct RDW Plt Count Seg Neuts % (Manual) Lymphocytes % (Manual) Monocytes % (Manual) Seg Neutrophils # Man Lymphocytes # (Manual) Monocytes # (Manual) D-Dimer ABG pH POC ABG pCO2 ABG pO2 ABG HCO3 ABG O2 Saturation ABG Base Excess ABG Hemoglobin Oxyhemoglobin Sodium Potassium Chloride Carbon Dioxide BUN Creatinine Glucose POC Glucose 134 H 117 H 144 H Lactic Acid Calcium Phosphorus Magnesium Ferritin AST Lactate Dehydrogenase C-Reactive Protein NT-Pro-B Natriuret Pep Albumin Triglycerides Urine WBC (Auto) Urine Creatinine Coronavirus (PCR) 03/12/21 03/13/21 03/13/21 21:14 00:01 05:38 WBC RBC Hgb Hct RDW Plt Count Seg Neuts % (Manual) Lymphocytes % (Manual) Monocytes % (Manual) Seg Neutrophils # Man Lymphocytes # (Manual) Monocytes # (Manual) D-Dimer ABG pH 7.238 L POC ABG pCO2 ABG pO2 94.9 H ABG HCO3 34.9 H ABG O2 Saturation ABG Base Excess 5.7 H ABG Hemoglobin 10.0 L Oxyhemoglobin 94.4 L Sodium Potassium Chloride Carbon Dioxide BUN Creatinine Glucose POC Glucose 144 H 131 H Lactic Acid Calcium Phosphorus Magnesium Ferritin AST Lactate Dehydrogenase C-Reactive Protein NT-Pro-B Natriuret Pep Albumin Triglycerides Urine WBC (Auto) Urine Creatinine Coronavirus (PCR) 03/13/21 03/13/21 03/13/21 06:14 07:00 07:00 WBC 11.3 H RBC 3.14 L Hgb 8.8 L Hct 29.3 L RDW 15.8 H Plt Count Seg Neuts % (Manual) Lymphocytes % (Manual) Monocytes % (Manual) Seg Neutrophils # Man Lymphocytes # (Manual) Monocytes # (Manual) D-Dimer ABG pH POC ABG pCO2 ABG pO2 ABG HCO3 ABG O2 Saturation ABG Base Excess ABG Hemoglobin Oxyhemoglobin Sodium 150 H Potassium Chloride 109.3 H Carbon Dioxide BUN 66 H Creatinine Glucose 115 H POC Glucose 107 H Lactic Acid Calcium Phosphorus 5.80 H Magnesium 3.00 H Ferritin AST Lactate Dehydrogenase C-Reactive Protein NT-Pro-B Natriuret Pep Albumin Triglycerides Urine WBC (Auto) Urine Creatinine Coronavirus (PCR) 03/13/21 11:41 WBC RBC Hgb Hct RDW Plt Count Seg Neuts % (Manual) Lymphocytes % (Manual) Monocytes % (Manual) Seg Neutrophils # Man Lymphocytes # (Manual) Monocytes # (Manual) D-Dimer ABG pH POC ABG pCO2 ABG pO2 ABG HCO3 ABG O2 Saturation ABG Base Excess ABG Hemoglobin Oxyhemoglobin Sodium Potassium Chloride Carbon Dioxide BUN Creatinine Glucose POC Glucose 116 H Lactic Acid Calcium Phosphorus Magnesium Ferritin AST Lactate Dehydrogenase C-Reactive Protein NT-Pro-B Natriuret Pep Albumin Triglycerides Urine WBC (Auto) Urine Creatinine Coronavirus (PCR)
--- NOTE | 2021-03-13 17:58 | Progress Note ---
Assessment and Plan Assessment and plan: This is a 61-year-old female with HTN, DM, DVT/PE on Eliquis admitted with acute hypoxic respiratory failure secondary to COVID-19 pneumonia Acute hypoxic respiratory failure secondary to Covid pneumonia, ARDS -S/p BiPAP and OptiFlow -Intubated on 03/05 with 7.50 ETT -A.m. vent settings: CMV tidal volume 350, rate 30, PEEP 20,85% FiO2 -See RT notes for titration FiO2 decreased to 85 -[facility] consulted, appreciate recommendations -VAP bundle -SPO2 monitoring -AM CXR and ABG noted -Sedated on Versed and propofol -RASS goal of -2 to -3 -Avoid delirium -Maintain sleep-wake cycle -SAT/SBT when appropriate Sepsis/COVID-19 pneumonia, leukocytosis, multifocal pneumonia -Infectious disease consulted, appreciate recommendations -> signed off 02/28 -S/p vasopressor support with Levophed -MAP goal greater than 65 -S/p steroids for 10 days -S/p remdesivir for 10 days -S/p empiric antibiotics for 5 days -S/p Actemra -Isolation/droplet precautions -Vitamin C/vitamin D/zinc -Trend COVID-19 from 2 markers -Anticoagulation per protocol Acute kidney injury secondary to acute tubular necrosis, hyperkalemia -BUN/creatinine increased to 1.9/62 -S/p diuresis with Lasix x4 (120 mg total for visit) -S/p 4 L LR -Avoid nephrotoxic medications -Renally dose medications -Trend BMP Acute right lower leg DVT -Vascular surgery consulted, appreciate recommendations -D-dimer greater than 10,000 -CTA chest showed several small emboli in the segmental branches of the right lung -Vascular surgery recommended anticoagulation and supportive therapy -bilateral lower extremity Doppler ultrasound showed a chronic appearing DVT in the right posterior tibial vein -Therapeutic Lovenox -Trend CBC -Transfuse to hemoglobin less than 7 -Monitor for signs of bleeding Hypernatremia -Free water flush -Trend sodium Hyperkalemia -Noted at 6.2 this morning -Treated at 5.7 yesterday with Kionex -Treated medically again (60 mg, calcium gluconate 1 g, D50, insulin) -Repeat K 4 -Trend potassium h/o DM -SSI -Lantus, titrate as needed -Avoid hypoglycemia h/o HTN -Hold home antihypertensive regimen at this time -Blood pressure monitor per protocol DVT/GI prophylaxis -Lovenox subcu -PPI The high probability of a clinically significant, sudden or life threatening deterioration of the [CV/Resp] system(s) required my full and direct attention, intervention and personal management. The aggregate critical care time was [60] minutes. This time is in addition to time spent performing reported procedures but includes the following: [x] Data Review and interpretation [x] Patient assessment and monitoring of vital signs [x] Documentation [x] Medication orders and management Disposition Plan: icu Total Time Spent with Patient (Minutes): 60 History Interval history: This is a 61-year-old female with HTN, DM, left lower extremity DVT and pulmonary medicine on Eliquis who presented to emergency department on 02/17 with complaints of shortness of breath and generalized weakness for the past 5 days prior to arrival and states that she is tested positive for COVID-19 on February 10, 2021 via EMS. EMS stated that the patient's initial oxygen saturation was 75% on room air improved to 86% on nonrebreather. Work-up in the emergency department revealed leukocytosis and elevated BUN. Work-up in the ED included a CXR which showed severe diffuse bilateral patchy opacities. Patient was admitted to the hospitalist service with consults to ID, pulmonology, vascular surgery as a COVID-19 PUI, SARS, acute hypoxic respiratory failure and multifocal pneumonia. Hospital course to date: 02/19/2020: Patient on 50% Ventimask, Covid positive, Continue steroids ,May DC antibiotics, Respiratory assessment and treatment 02/19: Patient still hypoxic, encourage prone positioning, Pulmonary and ID consult. Will obtain CTA chest to evaluate for PE. Continue steroid therapy and oxygen therapy wean as tolerated. Continuous pulse oximeter. Plan discussed with the patient. 02/20: Patient seen and examined, remains on NRBM. awaiting CT CHEST WITH ANGIO Ordered yesterday. Encourage proning the patient says she was not proned yesterday discussed with nursing staff. Continue steroid therapy and remdesivir. Patient was seen by ID and as documented by ID"She is a candidate for Actemra based on CRp and O2 requirements. unfortunately we have not been getting procalcitonin results. -ordered Actemra once (afebrile, white count only mildly elevated in the setting of steroids)" Discussed plan of care with the nurse. Also called to updated the patients sister listed as [facility] but got voice mail 02/21: Continue steroids, remdesivir, patient received 1 dose of Actemra but unable to get the second dose due to availability. CTA showed dense consolidation but no effusion and no pulmonary embolism patient does have a lower extremity DVT. Eliquis continues at full dose of 5 mg twice daily we will continue to monitor closely. Prognosis is guarded counseling for compliance for 15 minutes. 02/22: Patient clinically not improving much of switch the patient to Lovenox. Prognosis remains guarded. Continue anticoagulation due to DVT still suspicious of pulmonary embolism as a result we will obtain echocardiogram and vascular consult per pulmonary request which I agree with. I will also transfer the patient to stepdown unit for closer monitoring. 02/23: Vascular input noted agree the patient has subsegmental bibasilar pulmonary embolism but not enough to warrant intervention. Does not feel that this is contributing majority to her hypoxia. Nevertheless we will switch patient from Eliquis to Lovenox. Continue current management with remdesivir 02/24: Patient seen and examined, remains on anticoagulation, continue remedsivir and steroids. prone as tolerated, will give additional lasix today. Guarded prognosis. 02/25 A&O x 3, C/O mild cough with mucoid expectorant. Denies CP or shortness of breath. Remains on HFNC. pulmonary note and lab results reviewed 02/26: AOX3, proning on encounter. Encouraged continued movement while in bed and with assistance of care staff. Remains on HFNC. Last day of decadron today. 02/27: Patient encouraged to continue proning and remain active. Discussed with PT to come work with patient to mobilize. Will d/w CM for senior living placement solution. 02/28: Patient stated she would like to be a full code. Working with CM for LTAC placement. 03/01: Awaiting LTAC placement. Remains full code. Spoke with daughter Meghna who was updated on patient's case. 03/02: Sats in low 80s on hi lfow. Blood gas shows pao2 = 35.9. will start bipap, d/w IMCU RN who will notify RT. repeat abg in 1 hr. Poor prognosis. 03/03; Sats in low 90's on bipap. Repeat abg this AM demosntrates marginal improvement in PaO2. PCCM d/w daughter, patient and her daughter would like intubation should she continue to deteriorate. Prognosis remains poor. 03/04: de-escalated to HFNC 40/100 + venti. Will continue with bipap prn. Continue steroids. Dispo is still LTAC, placement is pending. 03/05: Resipratory distress this morning. Sats 69-70%. subsequently intubated. Now icu level of care. Family wants continue aggressive measures. Will follow [facility] recs. 03/06: Patient with ISH this am probably due to hypotension vs diuretic use, fluid bolus challenge this am. Urine lytes ordered. FWF added for hypernatremia. 03/07: Patient responded to fluid challenge, renal function improved, UOP better. Weaning down pressors, additional IVF bolus today, plan to wean down on press ors requirement. ABG improved today, wean down Fio2 as tolerated. Okay to start trickle feeds. 03/08: Renal function is back to baseline. Going down on pressor requirements, only on low dose Vaso and levophed today. Continue to wean pressors as tolerated. D/W [facility] continue to wean Fio2 as tolerated, keep patient a RASS goal of -4 for now. Advance TF as tolerated per order. 03/09: Remains on the vent. Low SPO2 overnight, vent setting was increased. Off pressors this am. IV lasix per [facility], repeat CXR in the am 03/10: Remains intubated and sedated, RASS -4. Back on pressors this am for low BP. This am CXR and ABG reviewed, oxygenation improved. Continue to wean pressors as tolerated. Vent adjustement per [facility] 03/11: Kayexalate given hypernatremia, remains on Levophed, increasing free water flush. 03/12: Hyperkalemia medically treated, repeat potassium is 4. BUN continues to rise. Continue to trend. Patient has been titrated off of Levophed. 03/13: Potassium is trending up, will continue to monitor. Wean Levophed as tolerated. Hypernatremia worsened, free water flushes increased. Vent changes per [facility]. Hospitalist Physical - Physical exam Narrative exam: General appearance: Present: no acute distress, well-nourished, other (Intubated and Sedated) - EENT Eyes: Present: PERRL, EOM intact ENT: hearing intact, clear oral mucosa, dentition normal - Neck Neck: Present: normal ROM - Respiratory Respiratory effort: normal Respiratory: bilateral: diminished - Cardiovascular Rhythm: regular Heart Sounds: Present: S1 & S2. Absent: systolic murmur, diastolic murmur - Extremities Extremities: no ischemia, pulses intact, pulses symmetrical, No edema, normal temperature, normal color Peripheral Pulses: within normal limits - Abdominal General gastrointestinal: soft, non-tender, non-distended - Integumentary Integumentary: Present: warm, dry - Psychiatric Psychiatric: other - Neurologic Neurologic: CNII-XII intact - Constitutional Vitals: Temp Pulse Resp BP Pulse Ox 98.9 F 90 10 L 103/60 93 03/13/21 12:00 03/13/21 16:15 03/13/21 15:30 03/13/21 16:15 03/13/21 16:15 General appearance: Present: no acute distress, well-nourished, other (Intubated and Sedated) Results - Labs CBC & Chem 7: 03/13/21 07:00 03/13/21 07:00 Labs: Laboratory Last Values WBC 11.3 K/mm3 (4.5-11.0) H 03/13/21 07:00 RBC 3.14 M/mm3 (3.65-5.03) L 03/13/21 07:00 Hgb 8.8 gm/dl (10.1-14.3) L 03/13/21 07:00 Hct 29.3 % (30.3-42.9) L 03/13/21 07:00 MCV 93 fl (79-97) 03/13/21 07:00 MCH 28 pg (28-32) 03/13/21 07:00 MCHC 30 % (30-34) 03/13/21 07:00 RDW 15.8 % (13.2-15.2) H 03/13/21 07:00 Plt Count 243 K/mm3 (140-440) 03/13/21 07:00 Add Manual Diff Complete 03/05/21 10:10 Total Counted 100 03/05/21 10:10 Seg Neuts % (Manual) 77.0 % (40.0-70.0) H 03/05/21 10:10 Band Neutrophils % 3.0 % 03/05/21 10:10 Lymphocytes % (Manual) 12.0 % (13.4-35.0) L 03/05/21 10:10 Reactive Lymphs % (Man) 2.0 % 03/05/21 10:10 Monocytes % (Manual) 5.0 % (0.0-7.3) 03/05/21 10:10 Eosinophils % (Manual) 1.0 % (0.0-4.3) 03/05/21 10:10 Basophils % (Manual) 0 % (0.0-1.8) 03/05/21 10:10 Metamyelocytes % 0 % 03/05/21 10:10 Myelocytes % 0 % 03/05/21 10:10 Promyelocytes % 0 % 03/05/21 10:10 Blast Cells % 0 % 03/05/21 10:10 Nucleated RBC % Not Reportable 03/05/21 10:10 Seg Neutrophils # Man 13.7 K/mm3 (1.8-7.7) H 03/05/21 10:10 Band Neutrophils # 0.5 K/mm3 03/05/21 10:10 Lymphocytes # (Manual) 2.1 K/mm3 (1.2-5.4) 03/05/21 10:10 Abs React Lymphs (Man) 0.4 K/mm3 03/05/21 10:10 Monocytes # (Manual) 0.9 K/mm3 (0.0-0.8) H 03/05/21 10:10 Eosinophils # (Manual) 0.2 K/mm3 (0.0-0.4) 03/05/21 10:10 Basophils # (Manual) 0.0 K/mm3 (0.0-0.1) 03/05/21 10:10 Metamyelocytes # 0.0 K/mm3 03/05/21 10:10 Myelocytes # 0.0 K/mm3 03/05/21 10:10 Promyelocytes # 0.0 K/mm3 03/05/21 10:10 Blast Cells # 0.0 K/mm3 03/05/21 10:10 WBC Morphology Not Reportable 03/05/21 10:10 Hypersegmented Neuts Not Reportable 03/05/21 10:10 Hyposegmented Neuts Not Reportable 03/05/21 10:10 Hypogranular Neuts Not Reportable 03/05/21 10:10 Smudge Cells Not Reportable 03/05/21 10:10 Toxic Granulation Not Reportable 03/05/21 10:10 Toxic Vacuolation Not Reportable 03/05/21 10:10 Dohle Bodies Not Reportable 03/05/21 10:10 Pelger-Huet Anomaly Not Reportable 03/05/21 10:10 Cindy Rods Not Reportable 03/05/21 10:10 Platelet Estimate Consistent w auto 03/05/21 10:10 Clumped Platelets Not Reportable 03/05/21 10:10 Plt Clumps, EDTA Not Reportable 03/05/21 10:10 Large Platelets 1+ 03/05/21 10:10 Giant Platelets Not Reportable 03/05/21 10:10 Platelet Satelliting Not Reportable 03/05/21 10:10 Plt Morphology Comment Not Reportable 03/05/21 10:10 RBC Morphology Not Reportable 03/05/21 10:10 Dimorphic RBCs Not Reportable 03/05/21 10:10 Polychromasia Few 03/05/21 10:10 Hypochromasia Not Reportable 03/05/21 10:10 Poikilocytosis Not Reportable 03/05/21 10:10 Anisocytosis 1+ 03/05/21 10:10 Microcytosis Not Reportable 03/05/21 10:10 Macrocytosis Not Reportable 03/05/21 10:10 Spherocytes Not Reportable 03/05/21 10:10 Pappenheimer Bodies Not Reportable 03/05/21 10:10 Sickle Cells Not Reportable 03/05/21 10:10 Target Cells Not Reportable 03/05/21 10:10 Tear Drop Cells Not Reportable 03/05/21 10:10 Ovalocytes Not Reportable 03/05/21 10:10 Helmet Cells Not Reportable 03/05/21 10:10 [place]vel Bodies Not Reportable 03/05/21 10:10 [place] Rings Not Reportable 03/05/21 10:10 [place] Cells Not Reportable 03/05/21 10:10 Bite Cells Not Reportable 03/05/21 10:10 Crenated Cell Not Reportable 03/05/21 10:10 Elliptocytes Not Reportable 03/05/21 10:10 Acanthocytes (Spur) Not Reportable 03/05/21 10:10 Rouleaux Not Reportable 03/05/21 10:10 Hemoglobin C Crystals Not Reportable 03/05/21 10:10 Schistocytes Not Reportable 03/05/21 10:10 Malaria parasites Not Reportable 03/05/21 10:10 [place] Bodies Not Reportable 03/05/21 10:10 Hem Pathologist Commnt No 03/05/21 10:10 PT 13.9 Sec. (12.2-14.9) 02/17/21 14:34 INR 0.96 (0.87-1.13) 02/17/21 14:34 APTT 26.4 Sec. (24.2-36.6) 02/17/21 14:34 D-Dimer 3469.99 ng/mlDDU (0-234) H 03/01/21 05:12 ABG pH 7.238 pH Units (7.350-7.450) L 03/13/21 05:38 POC ABG pCO2 79.6 mmHg (32.0-48.0) H 03/12/21 04:06 ABG pCO2 83.9 mm Hg 03/13/21 05:38 POC ABG pO2 105.2 mmHg (83-108) 03/12/21 04:06 ABG pO2 94.9 mm Hg (80.0-90.0) H 03/13/21 05:38 POC ABG HCO3 35.0 03/12/21 04:06 ABG HCO3 34.9 mmol/L (20.0-26.0) H 03/13/21 05:38 ABG O2 Saturation 96.6 % (95.0-99.0) 03/13/21 05:38 ABG O2 Content 13.4 (0.0-44) 03/13/21 05:38 POC ABG Base Excess 6.2 03/12/21 04:06 ABG Base Excess 5.7 mmol/L (-2.0-3.0) H 03/13/21 05:38 ABG Hemoglobin 10.0 gm/dl (12.0-16.0) L 03/13/21 05:38 ABG Oxyhemoglobin 94.8 (94-98) 03/12/21 04:06 ABG Carboxyhemoglobin 1.6 % (0.0-5.0) 03/13/21 05:38 ABG Methemoglobin 0.6 % (0.0-1.5) 03/13/21 05:38 Oxyhemoglobin 94.4 % (95.0-99.0) L 03/13/21 05:38 Carboxyhemoglobin 1.5 (0.5-1.5) 03/12/21 04:06 FiO2 90 % 03/13/21 05:38 FiO2 % 90.0 03/12/21 04:06 Sodium 150 mmol/L (137-145) H 03/13/21 07:00 Potassium 4.9 mmol/L (3.6-5.0) D 03/13/21 07:00 Chloride 109.3 mmol/L (98-107) H 03/13/21 07:00 Carbon Dioxide 30 mmol/L (22-30) 03/13/21 07:00 Anion Gap 16 mmol/L 03/13/21 07:00 BUN 66 mg/dL (7-17) H 03/13/21 07:00 Creatinine 1.0 mg/dL (0.6-1.2) 03/13/21 07:00 Estimated GFR > 60 ml/min 03/13/21 07:00 BUN/Creatinine Ratio 66 % 03/13/21 07:00 Glucose 115 mg/dL (65-100) H 03/13/21 07:00 POC Glucose 100 mg/dL (70-105) 03/13/21 17:23 Lactic Acid 1.60 mmol/L (0.7-2.0) 02/17/21 18:39 Calcium 9.2 mg/dL (8.4-10.2) 03/13/21 07:00 Phosphorus 5.80 mg/dL (2.5-4.5) H 03/13/21 07:00 Magnesium 3.00 mg/dL (1.7-2.3) H 03/13/21 07:00 Ferritin 1526.0 ng/mL (10.0-200.0) H 03/01/21 05:12 Total Bilirubin 0.30 mg/dL (0.1-1.2) 03/05/21 10:10 Direct Bilirubin < 0.2 mg/dL (0-0.2) 02/17/21 14:34 Indirect Bilirubin 0.1 mg/dL 02/17/21 14:34 AST 38 units/L (5-40) 03/05/21 10:10 ALT 44 units/L (7-56) 03/05/21 10:10 Alkaline Phosphatase 78 units/L (35-129) 03/05/21 10:10 Lactate Dehydrogenase 385 units/L (91-180) H 03/01/21 05:12 C-Reactive Protein 11.20 mg/dL (0.00-1.30) H 03/01/21 05:12 NT-Pro-B Natriuret Pep 86.77 pg/mL (0-900) 02/20/21 16:34 Total Protein 7.7 g/dL (6.3-8.2) 03/05/21 10:10 Albumin 3.1 g/dL (3.9-5) L 03/05/21 10:10 Albumin/Globulin Ratio 0.7 % 03/05/21 10:10 Triglycerides 130 mg/dL (2-149) 03/12/21 04:30 Procalcitonin 0.11 ng/mL (<0.15) 02/19/21 07:32 Urine Color Cassandra (Yellow) 02/18/21 Unknown Urine Turbidity Cloudy (Clear) 02/18/21 Unknown Urine pH 5.0 (5.0-7.0) 02/18/21 Unknown Ur Specific [place] 1.027 (1.003-1.030) 02/18/21 Unknown Urine Protein 100 mg/dl mg/dL (Negative) 02/18/21 Unknown Urine Glucose (UA) Neg mg/dL (Negative) 02/18/21 Unknown Urine Ketones Neg mg/dL (Negative) 02/18/21 Unknown Urine Blood Neg (Negative) 02/18/21 Unknown Urine Nitrite Neg (Negative) 02/18/21 Unknown Urine Bilirubin Neg (Negative) 02/18/21 Unknown Urine Urobilinogen < 2.0 mg/dL (<2.0) 02/18/21 Unknown Ur Leukocyte Esterase Neg (Negative) 02/18/21 Unknown Urine WBC (Auto) 7.0 /HPF (0.0-6.0) H 02/18/21 Unknown Urine RBC (Auto) 4.0 /HPF (0.0-6.0) 02/18/21 Unknown U Epithel Cells (Auto) 3.0 /HPF (0-13.0) 02/18/21 Unknown Urine Mucus 2+ /HPF 02/18/21 Unknown Urine Creatinine 247.7 mg/dL (0.1-20.0) H 03/06/21 09:00 Urine Sodium 25 mmol/L 03/06/21 09:00 Coronavirus (PCR) Positive (Negative) A 02/18/21 Unknown Head/IV: Voiding Method Indwelling Catheter Active Medications - Current Medications Current Medications: Generic Name Dose Route Start Last Admin Trade Name Freq PRN Reason Stop Dose Admin Acetaminophen 650 mg 02/17/21 23:58 03/11/21 04:27 Acetaminophen 325 Mg Tab PO 650 mg Q4H PRN Administration Pain MILD(1-3)/Fever >100.5/BROWN Dextrose 0 ml 03/11/21 10:46 Dextrose 10% *Hypoglycemia IV PRN PRN Hypoglycemia Enoxaparin Sodium 90 mg 03/08/21 22:00 03/13/21 11:01 Enoxaparin 100 Mg/1 Ml Inj 1 mg/kg (90 mg) 90 mg SUB-Q Administration Q12HR [facility] Protocol Famotidine 20 mg 03/11/21 22:00 03/13/21 11:04 Famotidine 20 Mg Tab FEEDTUBE 20 mg BID DEISY Administration Fentanyl 50 mcg 03/05/21 09:38 03/12/21 17:58 Fentanyl 100 Mcg/2 Ml Inj IV 50 mcg Q10MIN PRN Administration ANALGESIA Gabapentin 400 mg 02/19/21 04:00 03/13/21 11:01 Gabapentin 400 Mg Cap PO 400 mg BID DEISY Administration Hydrophilic Ointment 1 applic 03/05/21 09:39 Lip Therapy Vaseline TP Q2HR PRN Dry Lips Propofol 1,000 mg in 100 mls @ 2.585 mls/hr 03/05/21 10:00 03/13/21 11:04 Diprivan 10 Mg/Ml IV 25 mcg/kg/min TITR DEISY 12.927 mls/hr Administration Protocol 5 MCG/KG/MIN Fentanyl Citrate 2,000 mcg in 100 mls @ 4.309 mls/hr 03/05/21 10:00 03/13/21 15:15 Fentanyl Drip Premix IV 4 mcg/kg/hr TITR DEISY 17.237 mls/hr Administration Protocol 1 MCG/KG/HR Midazolam HCl 100 mg/ Sodium 100 mls @ 1 mls/hr 03/05/21 11:00 03/13/21 02:10 Chloride IV 4 mg/hr TITR DEISY 4 mls/hr Administration Protocol 1 MG/HR NORepinephrine/NS 8 MG-250 ML 8 mg in 250 mls @ 3.75 mls/hr 03/05/21 10:15 03/13/21 08:00 Norepinephrine/Ns 8 Mg-250 Ml (Double Conc) IV 2 mcg/min TITRATE DEISY 3.75 mls/hr Titration Protocol 2 MCG/MIN Dexmedetomidine HCl 400 mcg/ 104 mls @ 4.482 mls/hr 03/05/21 14:00 Sodium Chloride IV TITRATE [facility] Protocol 0.2 MCG/KG/HR Vasopressin 20 unit/ Sodium 101 mls @ 9.09 mls/hr 03/06/21 06:00 03/08/21 10:30 Chloride IV 0 units/min TITR DEISY 0 mls/hr Titration Protocol 0.03 UNITS/MIN Insulin Glargine 10 units 03/02/21 22:00 03/12/21 22:03 Insulin Glargine 100 Units/Ml SUB-Q 10 units QHS EDISY Administration Insulin Human Lispro 0 unit 03/05/21 18:00 03/13/21 14:18 Insulin Lispro 100 Unit/Ml SUB-Q Not Given Q6HR [facility] Protocol Midazolam HCl 2 mg 03/05/21 10:11 03/05/21 10:53 Midazolam 2 Mg/2 Ml Inj IV 2 mg Q10MIN PRN Administration Sedation Multi-Ingred Cream/Lotion/Oil/Oint 1 applic 03/05/21 09:39 Mineral Oil/Petrolatum, White Ophth Oint 3.5 Gm OU Q4HR PRN Dry Eye(s) Ondansetron HCl 4 mg 02/17/21 23:58 Ondansetron 4 Mg/2 Ml Inj IV Q8H PRN Nausea And Vomiting Senna/Docusate Sodium 1 tab 03/05/21 10:00 03/13/21 11:01 Sennosides/Docusate Sodium 8.6/50 Mg Tab FEEDTUBE 1 tab BID DEISY Administration Sertraline HCl 50 mg 02/19/21 10:00 03/13/21 11:01 Sertraline 50 Mg Tab PO 50 mg QDAY DEISY Administration Sodium Chloride 10 ml 02/18/21 10:00 03/12/21 22:05 Sodium Chloride 0.9% 10 Ml Flush Syringe IV 10 ml BID DEISY Administration Sodium Chloride 10 ml 02/17/21 23:58 Sodium Chloride 0.9% 10 Ml Flush Syringe IV PRN PRN LINE FLUSH Sodium Chloride 10 ml 03/11/21 09:49 Sodium Chloride 0.9% 50 Ml Ivpb IV PRN PRN FLUSH Nutrition/Malnutrition Assess - Dietary Evaluation Nutrition/Malnutrition Findings: Nutrition Notes Start: 02/25/21 16:10 Freq: Status: Active Protocol: Document 03/11/21 16:53 ALEC (Rec: 03/11/21 17:06 ALEC [id number]) Nutrition Notes Initial or Follow up Brief Note Current Diet TF-Glucerna 1.2 Dagoberto @ 48 ml/hr (since D 03/08). Height 5 ft 6 in Weight 86.183 kg [place] Body Weight (kg) 59.09 BMI 30.7 Weight change and time frame No body weight change reported . Weight Status Obese Subjective/Other Information RD consult for routinr F/U on TF tolerance. Pt continues on mechanical ventilation. TF well tolerated, according to RN notes. Percent of energy/protein needs met: Prescribed Glucerna 1.2 Dagoberto @ 48 ml/hr provides for energy/ protein needs (1,390 Kcal/70 g ) during LOS, 100% Kcal; 75% AA. #2 Nutrition Diagnosis Inadequate oral intake Diagnosis Progress(for reassessment Continues documentation) #1 Nutrition Diagnosis Inadequate protein-energy intake Diagnosis Progress(for reassessment Continues documentation) Is patient on ventilator? Yes Is Patient Ambulatory and/or Out of Bed No REE-([facility]-confined to bed) 1737.120 Calculation Used for Recommendations 70-80% energy needs Additional Notes Energy: 0681-7002 kcal/day Protein: 1.3 g/kg adjBW: 94 g/ day Fluids: 1 ml/kcal, or as per MD. Nutrition Intervention Nutrition Support: Continue Glucerna 1.2 Dagoberto @ 50 ml/hr. Flush: 80 ml water Q 4 hr, or as per MD. Kcal 1,440 Protein (gm) 72 Carbohydrates (gm) 137 Fat (gm) 72 Fluid (mL) 966 Fiber (gm) 19 % RDI: 100% Kcal; 75% AA. Goal #1 Provide at least 75% of energy /protein needs through Enteral Feeding during LOS. Follow-Up By: 03/18/21 Additional Comments Continue monitoring TF tolerance and BM.
[2021-03-13] MEDS: INSULIN GLARGINE 100 UNITS/ML SUB-Q SCH (21:05)
[2021-03-14] MEDS: INSULIN LISPRO 100 UNIT/ML SUB-Q SCH ×2 (00:50→05:57)
[2021-03-14] MEDS: fentaNYL DRIP Premix 2,000 MCG/100 ML BAG IV SCH ×4 (03:06→20:52)
[2021-03-14] MEDS: MIDAZOLAM 100 MG in SODIUM CHLORIDE 0.9% 80 ML IV SCH (04:02)
[2021-03-14] MEDS: FREE WATER PO SCH ×3 (04:03→22:07)
[2021-03-14 06:09] LABS: ABG Base Excess 8.9 mmol/L (-2.0-3.0); ABG HCO3 36.7 mmol/L (20.0-26.0); ABG Methemoglobin 0.5 % (0.0-1.5); ABG Oxygen Saturation 95.7 % (95.0-99.0); ABG PCO2 75.2 mm Hg; ABG PH 7.306 pH Units (7.350-7.450); ABG PO2 75.4 mm Hg (80.0-90.0)
[2021-03-14 08:10] LABS: Hematocrit 28.5 % (30.3-42.9); Hemoglobin 8.8 gm/dl (10.1-14.3); Mean Corpuscular HGB Conc 31 % (30-34); Mean Corpuscular Volume 93 fl (79-97); Platelet Count 267 K/mm3 (140-440); Red Blood Count 3.05 M/mm3 (3.65-5.03); Red Cell Distribution Width 15.3 % (13.2-15.2)
[2021-03-14 08:44] LABS: BUN/Creatinine Ratio 76; Blood Urea Nitrogen 61 mg/dL (7-17); Hemolysis Index 0
[2021-03-14] MEDS: SERTRALINE 50 MG TAB PO SCH (09:49)
[2021-03-14] MEDS: FAMOTIDINE 20 MG TAB FEEDTUBE SCH ×2 (09:49→22:08)
[2021-03-14] MEDS: GABAPENTIN 400 MG CAP PO SCH ×2 (09:49→22:08)
[2021-03-14] MEDS: ENOXAPARIN 100 MG/1 ML INJ SUB-Q SCH ×2 (09:49→22:08)
--- NOTE | 2021-03-14 11:43 | Progress Note ---
Assessment and Plan 61 y/o female with acute respiratory failure secondary to COVID 19 pneumonia. 03/14/21: Long discussion over the phone with daughter at request of charge nurse. Updated her on her mothers current condition and lack of improvement. She states that she has been thinking about what the next steps would be for her mother. I explained to her that her vent settings are too high for trach and peg at this moment. The other option would be, knowing that her mother did not want to be intubated but rescinded her DNR at the request of the daughter, to consider comfort measures for her. The daughter states that she will speak with her Aunt (patients sister) and they will let us know. WIll continue supportive measures and attempt to wean FIO2 to at least 60%. ONce there, can start weaning PEEP if able to get there. Monitor fluids and renal function. OVerall prognosis is guarded to poor. Also discussed the very high mortality rate associated with COVID patients and mechanical ventilation. 03/13/21: K is better but looks like it may be trending up again. Continue to monitor. Continue anticoagulation. Wean FiO2 for sats >88% and PaO2>55. Goal would be to get FiO2 to at least 60% or less. Still making urine. Prognosis ho wever remains guarded to poor. 03/12/21: K is elevated again today. No evidence of bleeding. Plateletes did drop but still good levels. Will monitor. Wean levophed as tolerated. Continues to make good urine. Guarded to poor prognosis. 03/11/21: K is elevated but renal function and urine output remains stable. Maintain current level of sedation. On Levophed, may need to give more volume. Ok with weaning FiO2 for sats >88% and or PaO2 of 55 and greater. Unable to prone at this time. Guarded prognosis. 03/08/21: Continue to monitor urine output and function. Consider more fluid t jose alberto. Maintain current level of sedation. Wean FiO2 for sats >88% and or PaO2 >55. Prognosis still remains guarded. Please do not wean PEEP until FiO2 as at 45-50% 03/07/21: Continue supportive measures. Monitor urine output and function. Labs are better today and she did put out more urine with fluid bolus so will give again today. Overall prognosis remains extremely guarded. 03/06/21: Overall clinical state is worsening. Now with difficulty ventilation and with improved ventilation comes a compromise in oxygenation. Newest concern is renal function which is worsening. If patient requires dialysis then mortality increases and prognosis worsens. If requires HD, prognosis is very very guarded to poor. 03/05/21: Added versed drip to fent and Diprovan to keep RASS at -4. Will also order precedex in the event it is needed. Repeat ABG somewhat improved but increased RR. Must watch Peak Pressures. attempting to do low lung volume protective ventilator strategy. Patient has actually been off steroids for some time. Will not restart as of yet. Unable to prone. Guarded prognosis. This discussion was had over the weekend with the daughter when I thought we would have to intubate then. Explained that vent is not therapy but only something to give her lungs time to rest, if possible to see if they can recover. Prognosis is very guarded to poor. 03/04/21: Continue supportive care between HFNC and bipap therapy. Steroids. Positive reinforcement. 03/03/21: Long discussion at bedside with patient. Today she stated that she did not want to be intubated. I attempted to call her daughter while I was in the room with the patient but no answer. She will remain full code as she has said this in the past and then revoked after speaking with the daughter ( which is why i called her again this morning). Continue bipap and monitor. Guarded prognosis. 03/02/21: Prone if able. Continue steroids. Negative fluid balance if possible. Prognosis remains very guarded 02/28/21: Prone. Steroids. Net negative fluid balance if possible. Guarded prognosis. 02/27/21: Full code status. Prone as much as possible during the day and sleep prone at night. Patient may require intubation ultimately. Guarded prognosis. 02/26/21: Prone if possible. Continue anticoagulation for DVT. Steroids. Net negative fluid balance. 02/25/21: Long discussion at bedside with patient, whom per her, she has discussed this with her daughter. She does no want an endotracheal tube. She does not want chest compression and she does not want shocks. I did not ask about vasopressors. The patient is awake and alert and oriented. This needs to be addressed by primary team as well an if confirmed, I have no problem with cosigning AND order. Continue supportive measures for now. Guarded to poor prognosis. 02/21/21: BNP normal. Still would attempt to achieve net negative fluid balance daily. Continue Remdesivir and steroids. Prone if patient willing. Follow up CTA results. Discussed with IMS, may change anticoagulation but awaiting official ready on CTA. Guareded prognosis. 02/20/21: Follow up CTA results. Will send BNP. Continue steroids and Remdesivir. Guarded prognosis. Prone if able, very pertinent to do this. 1. self proning as tolerated during the day and prone at night while sleeping 2. Steroids and Remdesivir 3. Daily net negative volume state 4. Consider checking BNP and echo to make sure no edema on this film 5. Agree with empiric anticoagulation given elevated D-Dimer Guarded prognosis. Will continue to follow. Subjective Date of service: 03/14/21 Principal diagnosis: COVID pneumonia Interval history: No acute events. Mentally on sedation. Pulm villarreal really no change. Spoke with daughter over the phone today. Objective Vital Signs - 12hr 03/13/21 03/13/21 03/13/21 23:15 23:30 23:45 Temperature Pulse Rate 96 H 97 H 97 H Respiratory 30 H 24 29 H Rate Blood Pressure 100/58 97/61 105/61 O2 Sat by Pulse 99 100 Oximetry 03/14/21 03/14/21 03/14/21 00:00 00:15 00:30 Temperature 98.2 F Pulse Rate 100 H 100 H 100 H Respiratory 30 H 29 H 30 H Rate Blood Pressure 99/57 98/60 98/61 O2 Sat by Pulse 99 100 99 Oximetry 03/14/21 03/14/21 03/14/21 00:45 01:00 01:15 Temperature Pulse Rate 100 H 100 H 101 H Respiratory 30 H 27 H 31 H Rate Blood Pressure 99/54 101/56 102/59 O2 Sat by Pulse 97 97 96 Oximetry 03/14/21 03/14/21 03/14/21 01:30 01:45 02:00 Temperature Pulse Rate 100 H 100 H 98 H Respiratory 24 19 16 Rate Blood Pressure 96/56 97/60 99/63 O2 Sat by Pulse 97 97 100 Oximetry 03/14/21 03/14/21 03/14/21 02:15 02:30 02:45 Temperature Pulse Rate 99 H 100 H 100 H Respiratory 17 16 19 Rate Blood Pressure 110/64 101/62 98/59 O2 Sat by Pulse 98 96 96 Oximetry 03/14/21 03/14/21 03/14/21 03:00 03:15 03:30 Temperature Pulse Rate 101 H 101 H 101 H Respiratory 17 21 24 Rate Blood Pressure 103/62 104/59 97/59 O2 Sat by Pulse 97 98 97 Oximetry 03/14/21 03/14/21 03/14/21 03:45 04:00 04:14 Temperature 99.9 F H Pulse Rate 103 H 104 H 101 H Respiratory 24 29 H Rate Blood Pressure 100/59 101/58 105/60 O2 Sat by Pulse 97 98 99 Oximetry 03/14/21 03/14/21 03/14/21 04:15 04:30 04:45 Temperature Pulse Rate 102 H 101 H 103 H Respiratory 25 H 17 27 H Rate Blood Pressure 105/60 95/60 92/58 O2 Sat by Pulse 99 97 95 Oximetry 03/14/21 03/14/21 03/14/21 05:00 05:15 05:30 Temperature Pulse Rate 102 H 102 H 102 H Respiratory 19 19 18 Rate Blood Pressure 95/59 94/58 92/55 O2 Sat by Pulse 95 94 95 Oximetry 03/14/21 03/14/21 03/14/21 05:45 06:00 06:15 Temperature Pulse Rate 102 H 101 H 102 H Respiratory 21 28 H 19 Rate Blood Pressure 94/52 97/50 99/52 O2 Sat by Pulse 93 94 93 Oximetry 03/14/21 03/14/21 03/14/21 06:30 06:45 07:00 Temperature Pulse Rate 101 H 101 H 100 H Respiratory 16 22 31 H Rate Blood Pressure 91/54 94/54 94/58 O2 Sat by Pulse 94 93 92 Oximetry 03/14/21 03/14/21 03/14/21 07:15 07:30 07:45 Temperature Pulse Rate 100 H 99 H 100 H Respiratory 30 H 27 H 19 Rate Blood Pressure 92/58 100/62 94/59 O2 Sat by Pulse 93 94 95 Oximetry 03/14/21 03/14/21 03/14/21 08:00 08:15 08:30 Temperature Pulse Rate 99 H 100 H 98 H Respiratory 16 15 16 Rate Blood Pressure 88/56 88/59 95/58 O2 Sat by Pulse 95 95 94 Oximetry 03/14/21 03/14/21 03/14/21 08:45 09:00 09:15 Temperature 97.9 F Pulse Rate 98 H 99 H 99 H Respiratory 21 16 32 H Rate Blood Pressure 102/60 96/60 98/61 O2 Sat by Pulse 94 94 Oximetry 03/14/21 03/14/21 03/14/21 09:30 09:45 10:00 Temperature Pulse Rate 98 H 100 H 100 H Respiratory 22 22 22 Rate Blood Pressure 109/69 96/67 111/70 O2 Sat by Pulse 92 92 91 Oximetry 03/14/21 03/14/21 10:15 10:30 Temperature Pulse Rate 100 H 100 H Respiratory 19 23 Rate Blood Pressure 100/68 105/64 O2 Sat by Pulse 90 90 Oximetry Constitutional: alert, other (on hiflo) ENT: oropharynx moist Neck: supple Ascultation: Bilateral: diminished breath sounds Cardiovascular: regular rate and rhythm Gastrointestinal: normoactive bowel sounds, soft, non-tender, non-distended Integumentary: normal Extremities: no cyanosis CBC and BMP: 03/14/21 07:17 03/14/21 07:17 ABG, PT/INR, D-dimer: ABG ABG pH 7.306 pH Units (7.350-7.450) L 03/14/21 03:44 POC ABG pCO2 79.6 mmHg (32.0-48.0) H 03/12/21 04:06 ABG pCO2 75.2 mm Hg 03/14/21 03:44 POC ABG pO2 105.2 mmHg (83-108) 03/12/21 04:06 ABG pO2 75.4 mm Hg (80.0-90.0) L 03/14/21 03:44 POC ABG HCO3 35.0 03/12/21 04:06 ABG O2 Saturation 95.7 % (95.0-99.0) 03/14/21 03:44 PT/INR, D-dimer PT 13.9 Sec. (12.2-14.9) 02/17/21 14:34 INR 0.96 (0.87-1.13) 02/17/21 14:34 D-Dimer 3469.99 ng/mlDDU (0-234) H 03/01/21 05:12 Abnormal lab findings: Abnormal Labs 02/17/21 02/17/21 02/17/21 14:34 14:34 14:34 WBC 11.7 H RBC Hgb Hct 44.9 H RDW 15.6 H Plt Count Seg Neuts % (Manual) Lymphocytes % (Manual) 9.0 L Monocytes % (Manual) 12.0 H Seg Neutrophils # Man 8.2 H Lymphocytes # (Manual) 1.1 L Monocytes # (Manual) 1.4 H D-Dimer ABG pH POC ABG pCO2 ABG pO2 ABG HCO3 ABG O2 Saturation ABG Base Excess ABG Hemoglobin Oxyhemoglobin Sodium Potassium 3.5 L Chloride Carbon Dioxide BUN 27 H Creatinine Glucose 150 H POC Glucose Lactic Acid 2.90 H* Calcium Phosphorus Magnesium Ferritin AST Lactate Dehydrogenase C-Reactive Protein NT-Pro-B Natriuret Pep Albumin Triglycerides Urine WBC (Auto) Urine Creatinine Coronavirus (PCR) 02/17/21 02/18/21 02/18/21 14:34 07:48 07:48 WBC 12.0 H RBC Hgb Hct RDW 15.4 H Plt Count Seg Neuts % (Manual) 76.0 H Lymphocytes % (Manual) Monocytes % (Manual) Seg Neutrophils # Man 9.1 H Lymphocytes # (Manual) Monocytes # (Manual) D-Dimer ABG pH POC ABG pCO2 ABG pO2 ABG HCO3 ABG O2 Saturation ABG Base Excess ABG Hemoglobin Oxyhemoglobin Sodium Potassium Chloride Carbon Dioxide BUN 36 H Creatinine Glucose 133 H POC Glucose Lactic Acid Calcium Phosphorus Magnesium Ferritin AST 57 H Lactate Dehydrogenase C-Reactive Protein NT-Pro-B Natriuret Pep 1619 H Albumin 3.3 L Triglycerides Urine WBC (Auto) Urine Creatinine Coronavirus (PCR) 02/18/21 02/18/21 02/19/21 Unknown Unknown 07:32 WBC RBC Hgb Hct RDW Plt Count Seg Neuts % (Manual) Lymphocytes % (Manual) Monocytes % (Manual) Seg Neutrophils # Man Lymphocytes # (Manual) Monocytes # (Manual) D-Dimer ABG pH POC ABG pCO2 ABG pO2 ABG HCO3 ABG O2 Saturation ABG Base Excess ABG Hemoglobin Oxyhemoglobin Sodium 148 H D Potassium Chloride Carbon Dioxide BUN 41 H Creatinine Glucose 123 H POC Glucose Lactic Acid Calcium Phosphorus Magnesium Ferritin AST 57 H Lactate Dehydrogenase C-Reactive Protein NT-Pro-B Natriuret Pep Albumin 3.7 L Triglycerides Urine WBC (Auto) 7.0 H Urine Creatinine Coronavirus (PCR) Positive A 02/19/21 02/19/21 02/20/21 07:32 08:43 05:00 WBC RBC Hgb Hct RDW Plt Count Seg Neuts % (Manual) Lymphocytes % (Manual) Monocytes % (Manual) Seg Neutrophils # Man Lymphocytes # (Manual) Monocytes # (Manual) D-Dimer > 25568 H ABG pH POC ABG pCO2 ABG pO2 ABG HCO3 ABG O2 Saturation ABG Base Excess ABG Hemoglobin Oxyhemoglobin Sodium 147 H Potassium Chloride 107.6 H Carbon Dioxide BUN 36 H Creatinine Glucose POC Glucose Lactic Acid Calcium Phosphorus Magnesium Ferritin AST Lactate Dehydrogenase C-Reactive Protein 10.90 H NT-Pro-B Natriuret Pep Albumin 3.3 L Triglycerides Urine WBC (Auto) Urine Creatinine Coronavirus (PCR) 02/20/21 02/21/21 02/21/21 18:46 04:44 04:44 WBC 16.7 H RBC Hgb Hct RDW Plt Count Seg Neuts % (Manual) Lymphocytes % (Manual) Monocytes % (Manual) Seg Neutrophils # Man Lymphocytes # (Manual) Monocytes # (Manual) D-Dimer ABG pH 7.453 H POC ABG pCO2 ABG pO2 55.0 L ABG HCO3 26.6 H ABG O2 Saturation 88.3 L ABG Base Excess ABG Hemoglobin Oxyhemoglobin 86.8 L Sodium Potassium Chloride Carbon Dioxide BUN 26 H Creatinine Glucose 111 H POC Glucose Lactic Acid Calcium Phosphorus Magnesium Ferritin AST Lactate Dehydrogenase C-Reactive Protein NT-Pro-B Natriuret Pep Albumin 3.4 L Triglycerides Urine WBC (Auto) Urine Creatinine Coronavirus (PCR) 02/22/21 02/23/21 02/23/21 04:47 09:05 09:05 WBC 19.3 H RBC 5.29 H Hgb 15.2 H Hct 47.7 H D RDW Plt Count Seg Neuts % (Manual) 82.0 H Lymphocytes % (Manual) 6.0 L Monocytes % (Manual) Seg Neutrophils # Man 15.8 H Lymphocytes # (Manual) Monocytes # (Manual) 1.0 H D-Dimer ABG pH POC ABG pCO2 ABG pO2 ABG HCO3 ABG O2 Saturation ABG Base Excess ABG Hemoglobin Oxyhemoglobin Sodium Potassium Chloride Carbon Dioxide BUN 25 H 27 H Creatinine Glucose 125 H POC Glucose Lactic Acid Calcium Phosphorus Magnesium Ferritin AST Lactate Dehydrogenase C-Reactive Protein NT-Pro-B Natriuret Pep Albumin 3.3 L Triglycerides Urine WBC (Auto) Urine Creatinine Coronavirus (PCR) 02/23/21 02/23/21 02/24/21 11:33 16:24 04:50 WBC 14.8 H RBC Hgb Hct RDW Plt Count Seg Neuts % (Manual) Lymphocytes % (Manual) Monocytes % (Manual) Seg Neutrophils # Man Lymphocytes # (Manual) Monocytes # (Manual) D-Dimer ABG pH POC ABG pCO2 ABG pO2 ABG HCO3 ABG O2 Saturation ABG Base Excess ABG Hemoglobin Oxyhemoglobin Sodium Potassium Chloride Carbon Dioxide BUN Creatinine Glucose POC Glucose 117 H 163 H Lactic Acid Calcium Phosphorus Magnesium Ferritin AST Lactate Dehydrogenase C-Reactive Protein NT-Pro-B Natriuret Pep Albumin Triglycerides Urine WBC (Auto) Urine Creatinine Coronavirus (PCR) 02/24/21 02/25/21 02/27/21 04:50 21:12 04:57 WBC 17.0 H RBC Hgb Hct 43.4 H RDW Plt Count Seg Neuts % (Manual) 84.0 H Lymphocytes % (Manual) 4.0 L Monocytes % (Manual) Seg Neutrophils # Man 14.3 H Lymphocytes # (Manual) 0.7 L Monocytes # (Manual) 0.9 H D-Dimer ABG pH POC ABG pCO2 ABG pO2 ABG HCO3 ABG O2 Saturation ABG Base Excess ABG Hemoglobin Oxyhemoglobin Sodium Potassium Chloride Carbon Dioxide BUN 23 H Creatinine Glucose POC Glucose 175 H Lactic Acid Calcium Phosphorus Magnesium Ferritin AST Lactate Dehydrogenase C-Reactive Protein NT-Pro-B Natriuret Pep Albumin Triglycerides Urine WBC (Auto) Urine Creatinine Coronavirus (PCR) 02/27/21 02/27/21 02/27/21 04:57 04:57 04:57 WBC RBC Hgb Hct RDW Plt Count Seg Neuts % (Manual) Lymphocytes % (Manual) Monocytes % (Manual) Seg Neutrophils # Man Lymphocytes # (Manual) Monocytes # (Manual) D-Dimer 5013.37 H ABG pH POC ABG pCO2 ABG pO2 ABG HCO3 ABG O2 Saturation ABG Base Excess ABG Hemoglobin Oxyhemoglobin Sodium Potassium Chloride Carbon Dioxide BUN 23 H Creatinine 0.5 L Glucose 113 H POC Glucose Lactic Acid Calcium Phosphorus Magnesium Ferritin 1272.0 H AST Lactate Dehydrogenase 438 H C-Reactive Protein 5.80 H NT-Pro-B Natriuret Pep Albumin Triglycerides Urine WBC (Auto) Urine Creatinine Coronavirus (PCR) 02/27/21 02/27/21 02/28/21 17:53 21:12 07:40 WBC RBC Hgb Hct RDW Plt Count Seg Neuts % (Manual) Lymphocytes % (Manual) Monocytes % (Manual) Seg Neutrophils # Man Lymphocytes # (Manual) Monocytes # (Manual) D-Dimer ABG pH POC ABG pCO2 ABG pO2 ABG HCO3 ABG O2 Saturation ABG Base Excess ABG Hemoglobin Oxyhemoglobin Sodium Potassium Chloride Carbon Dioxide BUN Creatinine Glucose POC Glucose 159 H 112 H 123 H Lactic Acid Calcium Phosphorus Magnesium Ferritin AST Lactate Dehydrogenase C-Reactive Protein NT-Pro-B Natriuret Pep Albumin Triglycerides Urine WBC (Auto) Urine Creatinine Coronavirus (PCR) 02/28/21 02/28/21 02/28/21 11:42 16:20 22:26 WBC RBC Hgb Hct RDW Plt Count Seg Neuts % (Manual) Lymphocytes % (Manual) Monocytes % (Manual) Seg Neutrophils # Man Lymphocytes # (Manual) Monocytes # (Manual) D-Dimer ABG pH POC ABG pCO2 ABG pO2 ABG HCO3 ABG O2 Saturation ABG Base Excess ABG Hemoglobin Oxyhemoglobin Sodium Potassium Chloride Carbon Dioxide BUN Creatinine Glucose POC Glucose 112 H 138 H 129 H Lactic Acid Calcium Phosphorus Magnesium Ferritin AST Lactate Dehydrogenase C-Reactive Protein NT-Pro-B Natriuret Pep Albumin Triglycerides Urine WBC (Auto) Urine Creatinine Coronavirus (PCR) 03/01/21 03/01/21 03/01/21 05:12 05:12 05:12 WBC 15.0 H RBC 5.05 H Hgb Hct 44.7 H RDW Plt Count Seg Neuts % (Manual) 71.0 H Lymphocytes % (Manual) 11.0 L Monocytes % (Manual) 12.0 H Seg Neutrophils # Man 10.7 H Lymphocytes # (Manual) Monocytes # (Manual) 1.8 H D-Dimer 3469.99 H ABG pH POC ABG pCO2 ABG pO2 ABG HCO3 ABG O2 Saturation ABG Base Excess ABG Hemoglobin Oxyhemoglobin Sodium Potassium Chloride 97.3 L Carbon Dioxide BUN Creatinine 0.5 L Glucose 115 H POC Glucose Lactic Acid Calcium Phosphorus Magnesium Ferritin AST Lactate Dehydrogenase 385 H C-Reactive Protein 11.20 H NT-Pro-B Natriuret Pep Albumin 2.8 L Triglycerides Urine WBC (Auto) Urine Creatinine Coronavirus (PCR) 03/01/21 03/01/21 03/01/21 05:12 07:30 11:42 WBC RBC Hgb Hct RDW Plt Count Seg Neuts % (Manual) Lymphocytes % (Manual) Monocytes % (Manual) Seg Neutrophils # Man Lymphocytes # (Manual) Monocytes # (Manual) D-Dimer ABG pH POC ABG pCO2 ABG pO2 ABG HCO3 ABG O2 Saturation ABG Base Excess ABG Hemoglobin Oxyhemoglobin Sodium Potassium Chloride Carbon Dioxide BUN Creatinine Glucose POC Glucose 130 H 143 H Lactic Acid Calcium Phosphorus Magnesium Ferritin 1526.0 H AST Lactate Dehydrogenase C-Reactive Protein NT-Pro-B Natriuret Pep Albumin Triglycerides Urine WBC (Auto) Urine Creatinine Coronavirus (PCR) 03/01/21 03/01/21 03/01/21 15:28 17:53 21:16 WBC RBC Hgb Hct RDW Plt Count Seg Neuts % (Manual) Lymphocytes % (Manual) Monocytes % (Manual) Seg Neutrophils # Man Lymphocytes # (Manual) Monocytes # (Manual) D-Dimer ABG pH POC ABG pCO2 ABG pO2 ABG HCO3 ABG O2 Saturation ABG Base Excess ABG Hemoglobin Oxyhemoglobin Sodium Potassium Chloride Carbon Dioxide BUN Creatinine Glucose POC Glucose 138 H 120 H 157 H Lactic Acid Calcium Phosphorus Magnesium Ferritin AST Lactate Dehydrogenase C-Reactive Protein NT-Pro-B Natriuret Pep Albumin Triglycerides Urine WBC (Auto) Urine Creatinine Coronavirus (PCR) 03/01/21 03/02/21 03/02/21 22:07 07:44 11:40 WBC RBC Hgb Hct RDW Plt Count Seg Neuts % (Manual) Lymphocytes % (Manual) Monocytes % (Manual) Seg Neutrophils # Man Lymphocytes # (Manual) Monocytes # (Manual) D-Dimer ABG pH POC ABG pCO2 ABG pO2 35.9 L* ABG HCO3 31.2 H ABG O2 Saturation 68.0 L ABG Base Excess 6.1 H ABG Hemoglobin Oxyhemoglobin 66.1 L Sodium Potassium Chloride Carbon Dioxide BUN Creatinine Glucose POC Glucose 125 H 203 H Lactic Acid Calcium Phosphorus Magnesium Ferritin AST Lactate Dehydrogenase C-Reactive Protein NT-Pro-B Natriuret Pep Albumin Triglycerides Urine WBC (Auto) Urine Creatinine Coronavirus (PCR) 03/02/21 03/02/21 03/02/21 12:13 13:00 17:15 WBC RBC Hgb Hct RDW Plt Count Seg Neuts % (Manual) Lymphocytes % (Manual) Monocytes % (Manual) Seg Neutrophils # Man Lymphocytes # (Manual) Monocytes # (Manual) D-Dimer ABG pH POC ABG pCO2 ABG pO2 36.0 L* ABG HCO3 29.5 H ABG O2 Saturation 68.7 L ABG Base Excess 4.7 H ABG Hemoglobin Oxyhemoglobin 66.8 L Sodium Potassium Chloride Carbon Dioxide BUN Creatinine Glucose POC Glucose 130 H 126 H Lactic Acid Calcium Phosphorus Magnesium Ferritin AST Lactate Dehydrogenase C-Reactive Protein NT-Pro-B Natriuret Pep Albumin Triglycerides Urine WBC (Auto) Urine Creatinine Coronavirus (PCR) 03/02/21 03/03/21 03/03/21 21:45 08:02 10:05 WBC 19.2 H RBC Hgb Hct 44.9 H RDW Plt Count Seg Neuts % (Manual) 85.0 H Lymphocytes % (Manual) 7.0 L Monocytes % (Manual) Seg Neutrophils # Man 16.3 H Lymphocytes # (Manual) Monocytes # (Manual) 1.2 H D-Dimer ABG pH POC ABG pCO2 ABG pO2 ABG HCO3 ABG O2 Saturation ABG Base Excess ABG Hemoglobin Oxyhemoglobin Sodium Potassium Chloride Carbon Dioxide BUN Creatinine Glucose POC Glucose 113 H 128 H Lactic Acid Calcium Phosphorus Magnesium Ferritin AST Lactate Dehydrogenase C-Reactive Protein NT-Pro-B Natriuret Pep Albumin Triglycerides Urine WBC (Auto) Urine Creatinine Coronavirus (PCR) 03/03/21 03/03/21 03/03/21 10:05 12:45 16:31 WBC RBC Hgb Hct RDW Plt Count Seg Neuts % (Manual) Lymphocytes % (Manual) Monocytes % (Manual) Seg Neutrophils # Man Lymphocytes # (Manual) Monocytes # (Manual) D-Dimer ABG pH POC ABG pCO2 ABG pO2 47.7 L ABG HCO3 31.5 H ABG O2 Saturation 82.5 L ABG Base Excess 5.6 H ABG Hemoglobin Oxyhemoglobin 80.4 L Sodium Potassium Chloride 97.8 L Carbon Dioxide BUN 23 H Creatinine Glucose 141 H POC Glucose 126 H Lactic Acid Calcium Phosphorus Magnesium Ferritin AST Lactate Dehydrogenase C-Reactive Protein NT-Pro-B Natriuret Pep Albumin 3.2 L Triglycerides Urine WBC (Auto) Urine Creatinine Coronavirus (PCR) 03/03/21 03/04/21 03/04/21 20:52 07:24 11:04 WBC RBC Hgb Hct RDW Plt Count Seg Neuts % (Manual) Lymphocytes % (Manual) Monocytes % (Manual) Seg Neutrophils # Man Lymphocytes # (Manual) Monocytes # (Manual) D-Dimer ABG pH POC ABG pCO2 ABG pO2 ABG HCO3 ABG O2 Saturation ABG Base Excess ABG Hemoglobin Oxyhemoglobin Sodium Potassium Chloride Carbon Dioxide BUN Creatinine Glucose POC Glucose 152 H 126 H 142 H Lactic Acid Calcium Phosphorus Magnesium Ferritin AST Lactate Dehydrogenase C-Reactive Protein NT-Pro-B Natriuret Pep Albumin Triglycerides Urine WBC (Auto) Urine Creatinine Coronavirus (PCR) 03/04/21 03/04/21 03/04/21 11:05 15:33 21:12 WBC RBC Hgb Hct RDW Plt Count Seg Neuts % (Manual) Lymphocytes % (Manual) Monocytes % (Manual) Seg Neutrophils # Man Lymphocytes # (Manual) Monocytes # (Manual) D-Dimer ABG pH POC ABG pCO2 ABG pO2 ABG HCO3 ABG O2 Saturation ABG Base Excess ABG Hemoglobin Oxyhemoglobin Sodium Potassium Chloride Carbon Dioxide BUN 34 H Creatinine Glucose 143 H POC Glucose 114 H 180 H Lactic Acid Calcium Phosphorus Magnesium Ferritin AST Lactate Dehydrogenase C-Reactive Protein NT-Pro-B Natriuret Pep Albumin Triglycerides Urine WBC (Auto) Urine Creatinine Coronavirus (PCR) 03/04/21 03/05/21 03/05/21 21:30 07:51 10:10 WBC 17.8 H RBC Hgb 14.5 H Hct 45.8 H RDW 15.3 H Plt Count 446 H Seg Neuts % (Manual) 77.0 H Lymphocytes % (Manual) 12.0 L Monocytes % (Manual) Seg Neutrophils # Man 13.7 H Lymphocytes # (Manual) Monocytes # (Manual) 0.9 H D-Dimer ABG pH 7.473 H POC ABG pCO2 ABG pO2 34.1 L* ABG HCO3 29.7 H ABG O2 Saturation 66.4 L ABG Base Excess 5.6 H ABG Hemoglobin Oxyhemoglobin 64.9 L Sodium Potassium Chloride Carbon Dioxide BUN Creatinine Glucose POC Glucose 144 H Lactic Acid Calcium Phosphorus Magnesium Ferritin AST Lactate Dehydrogenase C-Reactive Protein NT-Pro-B Natriuret Pep Albumin Triglycerides Urine WBC (Auto) Urine Creatinine Coronavirus (PCR) 03/05/21 03/05/21 03/05/21 10:10 11:41 12:23 WBC RBC Hgb Hct RDW Plt Count Seg Neuts % (Manual) Lymphocytes % (Manual) Monocytes % (Manual) Seg Neutrophils # Man Lymphocytes # (Manual) Monocytes # (Manual) D-Dimer ABG pH 7.226 L POC ABG pCO2 ABG pO2 50.5 L ABG HCO3 32.8 H ABG O2 Saturation 73.6 L ABG Base Excess ABG Hemoglobin 18.2 H Oxyhemoglobin 71.8 L Sodium Potassium 3.5 L Chloride Carbon Dioxide BUN 51 H Creatinine Glucose 217 H POC Glucose 124 H Lactic Acid Calcium Phosphorus Magnesium Ferritin AST Lactate Dehydrogenase C-Reactive Protein NT-Pro-B Natriuret Pep Albumin 3.1 L Triglycerides Urine WBC (Auto) Urine Creatinine Coronavirus (PCR) 03/05/21 03/05/21 03/06/21 16:40 22:39 00:37 WBC RBC Hgb Hct RDW Plt Count Seg Neuts % (Manual) Lymphocytes % (Manual) Monocytes % (Manual) Seg Neutrophils # Man Lymphocytes # (Manual) Monocytes # (Manual) D-Dimer ABG pH POC ABG pCO2 ABG pO2 ABG HCO3 ABG O2 Saturation ABG Base Excess ABG Hemoglobin Oxyhemoglobin Sodium Potassium Chloride Carbon Dioxide BUN Creatinine Glucose POC Glucose 138 H 139 H 126 H Lactic Acid Calcium Phosphorus Magnesium Ferritin AST Lactate Dehydrogenase C-Reactive Protein NT-Pro-B Natriuret Pep Albumin Triglycerides Urine WBC (Auto) Urine Creatinine Coronavirus (PCR) 03/06/21 03/06/21 03/06/21 04:25 06:13 06:13 WBC 18.4 H RBC Hgb Hct RDW 15.3 H Plt Count Seg Neuts % (Manual) Lymphocytes % (Manual) Monocytes % (Manual) Seg Neutrophils # Man Lymphocytes # (Manual) Monocytes # (Manual) D-Dimer ABG pH 7.028 L* POC ABG pCO2 ABG pO2 ABG HCO3 33.8 H ABG O2 Saturation 92.5 L ABG Base Excess ABG Hemoglobin Oxyhemoglobin 90.6 L Sodium 149 H Potassium Chloride 107.2 H Carbon Dioxide BUN 62 H Creatinine 1.9 H D Glucose 140 H POC Glucose Lactic Acid Calcium 7.7 L D Phosphorus 10.70 H Magnesium 2.40 H Ferritin AST Lactate Dehydrogenase C-Reactive Protein NT-Pro-B Natriuret Pep Albumin Triglycerides Urine WBC (Auto) Urine Creatinine Coronavirus (PCR) 03/06/21 03/06/21 03/06/21 06:13 09:00 12:00 WBC RBC Hgb Hct RDW Plt Count Seg Neuts % (Manual) Lymphocytes % (Manual) Monocytes % (Manual) Seg Neutrophils # Man Lymphocytes # (Manual) Monocytes # (Manual) D-Dimer ABG pH POC ABG pCO2 ABG pO2 ABG HCO3 ABG O2 Saturation ABG Base Excess ABG Hemoglobin Oxyhemoglobin Sodium Potassium Chloride Carbon Dioxide BUN Creatinine Glucose POC Glucose 155 H 122 H Lactic Acid Calcium Phosphorus Magnesium Ferritin AST Lactate Dehydrogenase C-Reactive Protein NT-Pro-B Natriuret Pep Albumin Triglycerides Urine WBC (Auto) Urine Creatinine 247.7 H Coronavirus (PCR) 03/06/21 03/06/21 03/06/21 17:16 22:23 Unknown WBC RBC Hgb Hct RDW Plt Count Seg Neuts % (Manual) Lymphocytes % (Manual) Monocytes % (Manual) Seg Neutrophils # Man Lymphocytes # (Manual) Monocytes # (Manual) D-Dimer ABG pH 7.253 L POC ABG pCO2 ABG pO2 66.5 L ABG HCO3 31.3 H ABG O2 Saturation 91.8 L ABG Base Excess ABG Hemoglobin 16.8 H Oxyhemoglobin 90.1 L Sodium Potassium Chloride Carbon Dioxide BUN Creatinine Glucose POC Glucose 123 H 123 H Lactic Acid Calcium Phosphorus Magnesium Ferritin AST Lactate Dehydrogenase C-Reactive Protein NT-Pro-B Natriuret Pep Albumin Triglycerides Urine WBC (Auto) Urine Creatinine Coronavirus (PCR) 03/07/21 03/07/21 03/07/21 00:36 04:05 04:05 WBC 18.0 H RBC Hgb Hct RDW Plt Count Seg Neuts % (Manual) Lymphocytes % (Manual) Monocytes % (Manual) Seg Neutrophils # Man Lymphocytes # (Manual) Monocytes # (Manual) D-Dimer ABG pH POC ABG pCO2 ABG pO2 ABG HCO3 ABG O2 Saturation ABG Base Excess ABG Hemoglobin Oxyhemoglobin Sodium Potassium Chloride Carbon Dioxide BUN 75 H Creatinine 1.5 H Glucose 113 H POC Glucose 121 H Lactic Acid Calcium Phosphorus Magnesium Ferritin AST Lactate Dehydrogenase C-Reactive Protein NT-Pro-B Natriuret Pep Albumin Triglycerides Urine WBC (Auto) Urine Creatinine Coronavirus (PCR) 03/07/21 03/07/21 03/07/21 04:05 04:49 05:38 WBC RBC Hgb Hct RDW Plt Count Seg Neuts % (Manual) Lymphocytes % (Manual) Monocytes % (Manual) Seg Neutrophils # Man Lymphocytes # (Manual) Monocytes # (Manual) D-Dimer ABG pH 7.280 L POC ABG pCO2 ABG pO2 ABG HCO3 29.3 H ABG O2 Saturation ABG Base Excess ABG Hemoglobin Oxyhemoglobin 94.4 L Sodium Potassium Chloride Carbon Dioxide BUN Creatinine Glucose POC Glucose 112 H Lactic Acid Calcium Phosphorus Magnesium Ferritin AST Lactate Dehydrogenase C-Reactive Protein NT-Pro-B Natriuret Pep Albumin Triglycerides 171 H Urine WBC (Auto) Urine Creatinine Coronavirus (PCR) 03/07/21 03/07/21 03/08/21 12:13 18:13 04:30 WBC 12.5 H RBC Hgb Hct RDW Plt Count Seg Neuts % (Manual) Lymphocytes % (Manual) Monocytes % (Manual) Seg Neutrophils # Man Lymphocytes # (Manual) Monocytes # (Manual) D-Dimer ABG pH POC ABG pCO2 ABG pO2 ABG HCO3 ABG O2 Saturation ABG Base Excess ABG Hemoglobin Oxyhemoglobin Sodium Potassium Chloride Carbon Dioxide BUN Creatinine Glucose POC Glucose 113 H 111 H Lactic Acid Calcium Phosphorus Magnesium Ferritin AST Lactate Dehydrogenase C-Reactive Protein NT-Pro-B Natriuret Pep Albumin Triglycerides Urine WBC (Auto) Urine Creatinine Coronavirus (PCR) 03/08/21 03/08/21 03/08/21 04:30 05:04 10:00 WBC RBC Hgb Hct RDW Plt Count Seg Neuts % (Manual) Lymphocytes % (Manual) Monocytes % (Manual) Seg Neutrophils # Man Lymphocytes # (Manual) Monocytes # (Manual) D-Dimer ABG pH POC ABG pCO2 ABG pO2 73.8 L ABG HCO3 28.9 H ABG O2 Saturation ABG Base Excess ABG Hemoglobin 11.0 L Oxyhemoglobin 93.4 L Sodium Potassium Chloride Carbon Dioxide BUN 69 H Creatinine Glucose 107 H POC Glucose 111 H Lactic Acid Calcium Phosphorus Magnesium Ferritin AST Lactate Dehydrogenase C-Reactive Protein NT-Pro-B Natriuret Pep Albumin Triglycerides Urine WBC (Auto) Urine Creatinine Coronavirus (PCR) 03/08/21 03/08/21 03/09/21 17:09 21:35 04:00 WBC 11.4 H RBC 3.21 L Hgb 9.4 L Hct 29.6 L RDW Plt Count Seg Neuts % (Manual) Lymphocytes % (Manual) Monocytes % (Manual) Seg Neutrophils # Man Lymphocytes # (Manual) Monocytes # (Manual) D-Dimer ABG pH POC ABG pCO2 ABG pO2 ABG HCO3 ABG O2 Saturation ABG Base Excess ABG Hemoglobin Oxyhemoglobin Sodium Potassium Chloride Carbon Dioxide BUN Creatinine Glucose POC Glucose 114 H 128 H Lactic Acid Calcium Phosphorus Magnesium Ferritin AST Lactate Dehydrogenase C-Reactive Protein NT-Pro-B Natriuret Pep Albumin Triglycerides Urine WBC (Auto) Urine Creatinine Coronavirus (PCR) 03/09/21 03/09/21 03/09/21 04:00 04:11 11:25 WBC RBC Hgb Hct RDW Plt Count Seg Neuts % (Manual) Lymphocytes % (Manual) Monocytes % (Manual) Seg Neutrophils # Man Lymphocytes # (Manual) Monocytes # (Manual) D-Dimer ABG pH 7.260 L POC ABG pCO2 ABG pO2 ABG HCO3 30.5 H ABG O2 Saturation ABG Base Excess ABG Hemoglobin 9.4 L Oxyhemoglobin 93.9 L Sodium Potassium Chloride Carbon Dioxide BUN 74 H Creatinine 1.3 H Glucose 117 H POC Glucose 122 H Lactic Acid Calcium Phosphorus Magnesium Ferritin AST Lactate Dehydrogenase C-Reactive Protein NT-Pro-B Natriuret Pep Albumin Triglycerides Urine WBC (Auto) Urine Creatinine Coronavirus (PCR) 03/09/21 03/09/21 03/09/21 18:02 21:04 23:30 WBC RBC Hgb Hct RDW Plt Count Seg Neuts % (Manual) Lymphocytes % (Manual) Monocytes % (Manual) Seg Neutrophils # Man Lymphocytes # (Manual) Monocytes # (Manual) D-Dimer ABG pH POC ABG pCO2 ABG pO2 ABG HCO3 ABG O2 Saturation ABG Base Excess ABG Hemoglobin Oxyhemoglobin Sodium Potassium Chloride Carbon Dioxide BUN Creatinine Glucose POC Glucose 106 H 116 H 109 H Lactic Acid Calcium Phosphorus Magnesium Ferritin AST Lactate Dehydrogenase C-Reactive Protein NT-Pro-B Natriuret Pep Albumin Triglycerides Urine WBC (Auto) Urine Creatinine Coronavirus (PCR) 03/10/21 03/10/21 03/10/21 02:43 04:00 04:00 WBC 11.6 H RBC 3.30 L Hgb 9.7 L Hct RDW 16.1 H Plt Count Seg Neuts % (Manual) Lymphocytes % (Manual) Monocytes % (Manual) Seg Neutrophils # Man Lymphocytes # (Manual) Monocytes # (Manual) D-Dimer ABG pH 7.268 L POC ABG pCO2 ABG pO2 113.4 H ABG HCO3 31.9 H ABG O2 Saturation ABG Base Excess 3.6 H ABG Hemoglobin 9.9 L Oxyhemoglobin Sodium Potassium Chloride Carbon Dioxide BUN 74 H Creatinine Glucose 132 H POC Glucose Lactic Acid Calcium Phosphorus Magnesium Ferritin AST Lactate Dehydrogenase C-Reactive Protein NT-Pro-B Natriuret Pep Albumin Triglycerides Urine WBC (Auto) Urine Creatinine Coronavirus (PCR) 03/10/21 03/10/21 03/10/21 05:08 11:29 16:23 WBC RBC Hgb Hct RDW Plt Count Seg Neuts % (Manual) Lymphocytes % (Manual) Monocytes % (Manual) Seg Neutrophils # Man Lymphocytes # (Manual) Monocytes # (Manual) D-Dimer ABG pH POC ABG pCO2 ABG pO2 ABG HCO3 ABG O2 Saturation ABG Base Excess ABG Hemoglobin Oxyhemoglobin Sodium Potassium Chloride Carbon Dioxide BUN Creatinine Glucose POC Glucose 117 H 128 H 116 H Lactic Acid Calcium Phosphorus Magnesium Ferritin AST Lactate Dehydrogenase C-Reactive Protein NT-Pro-B Natriuret Pep Albumin Triglycerides Urine WBC (Auto) Urine Creatinine Coronavirus (PCR) 03/10/21 03/10/21 03/11/21 21:15 23:39 03:40 WBC RBC Hgb Hct RDW Plt Count Seg Neuts % (Manual) Lymphocytes % (Manual) Monocytes % (Manual) Seg Neutrophils # Man Lymphocytes # (Manual) Monocytes # (Manual) D-Dimer ABG pH 7.247 L POC ABG pCO2 ABG pO2 123.9 H ABG HCO3 34.4 H ABG O2 Saturation ABG Base Excess 5.4 H ABG Hemoglobin 9.7 L Oxyhemoglobin Sodium Potassium Chloride Carbon Dioxide BUN Creatinine Glucose POC Glucose 123 H 124 H Lactic Acid Calcium Phosphorus Magnesium Ferritin AST Lactate Dehydrogenase C-Reactive Protein NT-Pro-B Natriuret Pep Albumin Triglycerides Urine WBC (Auto) Urine Creatinine Coronavirus (PCR) 03/11/21 03/11/21 03/11/21 04:00 04:00 05:32 WBC 12.1 H RBC 3.30 L Hgb 9.5 L Hct RDW 15.5 H Plt Count Seg Neuts % (Manual) Lymphocytes % (Manual) Monocytes % (Manual) Seg Neutrophils # Man Lymphocytes # (Manual) Monocytes # (Manual) D-Dimer ABG pH POC ABG pCO2 ABG pO2 ABG HCO3 ABG O2 Saturation ABG Base Excess ABG Hemoglobin Oxyhemoglobin Sodium 148 H Potassium 5.7 H Chloride 107.7 H Carbon Dioxide BUN 63 H Creatinine Glucose 135 H POC Glucose 147 H Lactic Acid Calcium Phosphorus 4.70 H Magnesium 3.20 H Ferritin AST Lactate Dehydrogenase C-Reactive Protein NT-Pro-B Natriuret Pep Albumin Triglycerides Urine WBC (Auto) Urine Creatinine Coronavirus (PCR) 03/11/21 03/11/21 03/11/21 11:35 17:50 21:29 WBC RBC Hgb Hct RDW Plt Count Seg Neuts % (Manual) Lymphocytes % (Manual) Monocytes % (Manual) Seg Neutrophils # Man Lymphocytes # (Manual) Monocytes # (Manual) D-Dimer ABG pH POC ABG pCO2 ABG pO2 ABG HCO3 ABG O2 Saturation ABG Base Excess ABG Hemoglobin Oxyhemoglobin Sodium Potassium Chloride Carbon Dioxide BUN Creatinine Glucose POC Glucose 136 H 109 H 114 H Lactic Acid Calcium Phosphorus Magnesium Ferritin AST Lactate Dehydrogenase C-Reactive Protein NT-Pro-B Natriuret Pep Albumin Triglycerides Urine WBC (Auto) Urine Creatinine Coronavirus (PCR) 03/12/21 03/12/21 03/12/21 00:43 04:06 04:30 WBC 11.2 H RBC 3.16 L Hgb 9.1 L Hct 29.5 L RDW 16.1 H Plt Count Seg Neuts % (Manual) Lymphocytes % (Manual) Monocytes % (Manual) Seg Neutrophils # Man Lymphocytes # (Manual) Monocytes # (Manual) D-Dimer ABG pH 7.261 L POC ABG pCO2 79.6 H ABG pO2 ABG HCO3 ABG O2 Saturation ABG Base Excess ABG Hemoglobin 9.64 L Oxyhemoglobin Sodium Potassium Chloride Carbon Dioxide BUN Creatinine Glucose POC Glucose 112 H Lactic Acid Calcium Phosphorus Magnesium Ferritin AST Lactate Dehydrogenase C-Reactive Protein NT-Pro-B Natriuret Pep Albumin Triglycerides Urine WBC (Auto) Urine Creatinine Coronavirus (PCR) 03/12/21 03/12/21 03/12/21 04:30 05:24 09:16 WBC RBC Hgb Hct RDW Plt Count Seg Neuts % (Manual) Lymphocytes % (Manual) Monocytes % (Manual) Seg Neutrophils # Man Lymphocytes # (Manual) Monocytes # (Manual) D-Dimer ABG pH POC ABG pCO2 ABG pO2 ABG HCO3 ABG O2 Saturation ABG Base Excess ABG Hemoglobin Oxyhemoglobin Sodium 147 H Potassium 6.2 H* Chloride Carbon Dioxide 33 H BUN 61 H Creatinine Glucose 132 H POC Glucose 122 H 117 H Lactic Acid Calcium Phosphorus Magnesium Ferritin AST Lactate Dehydrogenase C-Reactive Protein NT-Pro-B Natriuret Pep Albumin Triglycerides Urine WBC (Auto) Urine Creatinine Coronavirus (PCR) 03/12/21 03/12/21 03/12/21 10:12 12:51 18:29 WBC RBC Hgb Hct RDW Plt Count Seg Neuts % (Manual) Lymphocytes % (Manual) Monocytes % (Manual) Seg Neutrophils # Man Lymphocytes # (Manual) Monocytes # (Manual) D-Dimer ABG pH POC ABG pCO2 ABG pO2 ABG HCO3 ABG O2 Saturation ABG Base Excess ABG Hemoglobin Oxyhemoglobin Sodium Potassium Chloride Carbon Dioxide BUN Creatinine Glucose POC Glucose 134 H 117 H 144 H Lactic Acid Calcium Phosphorus Magnesium Ferritin AST Lactate Dehydrogenase C-Reactive Protein NT-Pro-B Natriuret Pep Albumin Triglycerides Urine WBC (Auto) Urine Creatinine Coronavirus (PCR) 03/12/21 03/13/21 03/13/21 21:14 00:01 05:38 WBC RBC Hgb Hct RDW Plt Count Seg Neuts % (Manual) Lymphocytes % (Manual) Monocytes % (Manual) Seg Neutrophils # Man Lymphocytes # (Manual) Monocytes # (Manual) D-Dimer ABG pH 7.238 L POC ABG pCO2 ABG pO2 94.9 H ABG HCO3 34.9 H ABG O2 Saturation ABG Base Excess 5.7 H ABG Hemoglobin 10.0 L Oxyhemoglobin 94.4 L Sodium Potassium Chloride Carbon Dioxide BUN Creatinine Glucose POC Glucose 144 H 131 H Lactic Acid Calcium Phosphorus Magnesium Ferritin AST Lactate Dehydrogenase C-Reactive Protein NT-Pro-B Natriuret Pep Albumin Triglycerides Urine WBC (Auto) Urine Creatinine Coronavirus (PCR) 03/13/21 03/13/21 03/13/21 06:14 07:00 07:00 WBC 11.3 H RBC 3.14 L Hgb 8.8 L Hct 29.3 L RDW 15.8 H Plt Count Seg Neuts % (Manual) Lymphocytes % (Manual) Monocytes % (Manual) Seg Neutrophils # Man Lymphocytes # (Manual) Monocytes # (Manual) D-Dimer ABG pH POC ABG pCO2 ABG pO2 ABG HCO3 ABG O2 Saturation ABG Base Excess ABG Hemoglobin Oxyhemoglobin Sodium 150 H Potassium Chloride 109.3 H Carbon Dioxide BUN 66 H Creatinine Glucose 115 H POC Glucose 107 H Lactic Acid Calcium Phosphorus 5.80 H Magnesium 3.00 H Ferritin AST Lactate Dehydrogenase C-Reactive Protein NT-Pro-B Natriuret Pep Albumin Triglycerides Urine WBC (Auto) Urine Creatinine Coronavirus (PCR) 03/13/21 03/13/21 03/14/21 11:41 23:38 03:44 WBC RBC Hgb Hct RDW Plt Count Seg Neuts % (Manual) Lymphocytes % (Manual) Monocytes % (Manual) Seg Neutrophils # Man Lymphocytes # (Manual) Monocytes # (Manual) D-Dimer ABG pH 7.306 L POC ABG pCO2 ABG pO2 75.4 L ABG HCO3 36.7 H ABG O2 Saturation ABG Base Excess 8.9 H ABG Hemoglobin 8.2 L Oxyhemoglobin 93.6 L Sodium Potassium Chloride Carbon Dioxide BUN Creatinine Glucose POC Glucose 116 H 119 H Lactic Acid Calcium Phosphorus Magnesium Ferritin AST Lactate Dehydrogenase C-Reactive Protein NT-Pro-B Natriuret Pep Albumin Triglycerides Urine WBC (Auto) Urine Creatinine Coronavirus (PCR) 03/14/21 03/14/21 03/14/21 05:29 07:17 07:17 WBC 12.7 H RBC 3.05 L Hgb 8.8 L Hct 28.5 L RDW 15.3 H Plt Count Seg Neuts % (Manual) Lymphocytes % (Manual) Monocytes % (Manual) Seg Neutrophils # Man Lymphocytes # (Manual) Monocytes # (Manual) D-Dimer ABG pH POC ABG pCO2 ABG pO2 ABG HCO3 ABG O2 Saturation ABG Base Excess ABG Hemoglobin Oxyhemoglobin Sodium Potassium Chloride Carbon Dioxide 33 H BUN 61 H Creatinine Glucose 121 H POC Glucose 122 H Lactic Acid Calcium Phosphorus 4.70 H Magnesium 2.80 H Ferritin AST Lactate Dehydrogenase C-Reactive Protein NT-Pro-B Natriuret Pep Albumin Triglycerides Urine WBC (Auto) Urine Creatinine Coronavirus (PCR) 03/14/21 10:59 WBC RBC Hgb Hct RDW Plt Count Seg Neuts % (Manual) Lymphocytes % (Manual) Monocytes % (Manual) Seg Neutrophils # Man Lymphocytes # (Manual) Monocytes # (Manual) D-Dimer ABG pH POC ABG pCO2 ABG pO2 ABG HCO3 ABG O2 Saturation ABG Base Excess ABG Hemoglobin Oxyhemoglobin Sodium Potassium Chloride Carbon Dioxide BUN Creatinine Glucose POC Glucose 114 H Lactic Acid Calcium Phosphorus Magnesium Ferritin AST Lactate Dehydrogenase C-Reactive Protein NT-Pro-B Natriuret Pep Albumin Triglycerides Urine WBC (Auto) Urine Creatinine Coronavirus (PCR)
--- NOTE | 2021-03-14 15:28 | Progress Note ---
Assessment and Plan Assessment and plan: This is a 61-year-old female with HTN, DM, DVT/PE on Eliquis admitted with acute hypoxic respiratory failure secondary to COVID-19 pneumonia Acute hypoxic respiratory failure secondary to Covid pneumonia, ARDS -S/p BiPAP and OptiFlow -Intubated on 03/05 with 7.50 ETT -A.m. vent settings: CMV tidal volume 350, rate 30, PEEP 20, 80% FiO2 -See RT notes for titration -CCM consulted, appreciate recommendations -VAP bundle -SPO2 monitoring -AM CXR and ABG noted -Sedated on Versed and propofol -RASS goal of -2 to -3 -Avoid delirium -Maintain sleep-wake cycle -SAT/SBT when appropriate Sepsis/COVID-19 pneumonia, leukocytosis, multifocal pneumonia -Infectious disease consulted, appreciate recommendations -> signed off 02/28 -Vasopressor support with Levophed -MAP goal greater than 65 -S/p steroids for 10 days -S/p remdesivir for 10 days -S/p empiric antibiotics for 5 days -S/p Actemra -Isolation/droplet precautions -Vitamin C/vitamin D/zinc -Trend COVID-19 from 2 markers -Anticoagulation per protocol Acute kidney injury secondary to acute tubular necrosis -BUN/creatinine increased to 1.9/62 -S/p diuresis with Lasix x4 (120 mg total for visit) -S/p 4 L LR -Avoid nephrotoxic medications -Renally dose medications -Trend BMP Acute right lower leg DVT -Vascular surgery consulted, appreciate recommendations -D-dimer greater than 10,000 -CTA chest showed several small emboli in the segmental branches of the right lung -Vascular surgery recommended anticoagulation and supportive therapy -bilateral lower extremity Doppler ultrasound showed a chronic appearing DVT in the right posterior tibial vein -Therapeutic Lovenox -Trend CBC -Transfuse to hemoglobin less than 7 -Monitor for signs of bleeding Hypernatremia (resolved) -Free water flush -Trend sodium Hyperkalemia (resolved) -Noted at 6.2 03/13 -Treated at 5.7 03/12 with Kionex -Treated medically again (60 mg, calcium gluconate 1 g, D50, insulin) -Repeat K 4 -Trend potassium h/o DM -SSI -Lantus, titrate as needed -Avoid hypoglycemia h/o HTN -Hold home antihypertensive regimen at this time -Blood pressure monitor per protocol DVT/GI prophylaxis -Lovenox subcu -PPI The high probability of a clinically significant, sudden or life threatening deterioration of the [CV/Resp] system(s) required my full and direct attention, intervention and personal management. The aggregate critical care time was [60] minutes. This time is in addition to time spent performing reported procedures but includes the following: [x] Data Review and interpretation [x] Patient assessment and monitoring of vital signs [x] Documentation [x] Medication orders and management Disposition Plan: icu Total Time Spent with Patient (Minutes): 60 History Interval history: This is a 61-year-old female with HTN, DM, left lower extremity DVT and pulmonary medicine on Eliquis who presented to emergency department on 02/17 with complaints of shortness of breath and generalized weakness for the past 5 days prior to arrival and states that she is tested positive for COVID-19 on February 10, 2021 via EMS. EMS stated that the patient's initial oxygen saturation was 75% on room air improved to 86% on nonrebreather. Work-up in the emergency department revealed leukocytosis and elevated BUN. Work-up in the ED included a CXR which showed severe diffuse bilateral patchy opacities. Patient was admitted to the hospitalist service with consults to ID, pulmonology, vascular surgery as a COVID-19 PUI, SARS, acute hypoxic respiratory failure and multifocal pneumonia. Hospital course to date: 02/19/2020: Patient on 50% Ventimask, Covid positive, Continue steroids ,May DC antibiotics, Respiratory assessment and treatment 02/19: Patient still hypoxic, encourage prone positioning, Pulmonary and ID consult. Will obtain CTA chest to evaluate for PE. Continue steroid therapy and oxygen therapy wean as tolerated. Continuous pulse oximeter. Plan discussed with the patient. 02/20: Patient seen and examined, remains on NRBM. awaiting CT CHEST WITH ANGIO Ordered yesterday. Encourage proning the patient says she was not proned y esterday discussed with nursing staff. Continue steroid therapy and remdesivir. Patient was seen by ID and as documented by ID"She is a candidate for Actemra based on CRp and O2 requirements. unfortunately we have not been getting procalcitonin results. -ordered Actemra once (afebrile, white count only mildly elevated in the setting of steroids)" Discussed plan of care with the nurse. Also called to updated the patients sister listed as DARSHAN but got voice mail 02/21: Continue steroids, remdesivir, patient received 1 dose of Actemra but unable to get the second dose due to availability. CTA showed dense consolidation but no effusion and no pulmonary embolism patient does have a lower extremity DVT. Eliquis continues at full dose of 5 mg twice daily we will continue to monitor closely. Prognosis is guarded counseling for compliance for 15 minutes. 02/22: Patient clinically not improving much of switch the patient to Lovenox. Prognosis remains guarded. Continue anticoagulation due to DVT still suspicious of pulmonary embolism as a result we will obtain echocardiogram and vascular consult per pulmonary request which I agree with. I will also transfer the patient to stepdown unit for closer monitoring. 02/23: Vascular input noted agree the patient has subsegmental bibasilar pulmonary embolism but not enough to warrant intervention. Does not feel that this is contributing majority to her hypoxia. Nevertheless we will switch patient from Eliquis to Lovenox. Continue current management with remdesivir 02/24: Patient seen and examined, remains on anticoagulation, continue remedsivir and steroids. prone as tolerated, will give additional lasix today. Guarded prognosis. 02/25 A&O x 3, C/O mild cough with mucoid expectorant. Denies CP or shortness of breath. Remains on HFNC. pulmonary note and lab results reviewed 02/26: AOX3, proning on encounter. Encouraged continued movement while in bed and with assistance of care staff. Remains on HFNC. Last day of decadron today. 02/27: Patient encouraged to continue proning and remain active. Discussed with PT to come work with patient to mobilize. Will d/w CM for equipment operator intermodal yard placement solution. 02/28: Patient stated she would like to be a full code. Working with CM for LTAC placement. 03/01: Awaiting LTAC placement. Remains full code. Spoke with daughter Meghna who was updated on patient's case. 03/02: Sats in low 80s on hi lfow. Blood gas shows pao2 = 35.9. will start bipap, d/w IMCU RN who will notify RT. repeat abg in 1 hr. Poor prognosis. 03/03; Sats in low 90's on bipap. Repeat abg this AM demosntrates marginal im provement in PaO2. PCCM d/w daughter, patient and her daughter would like intubation should she continue to deteriorate. Prognosis remains poor. 03/04: de-escalated to HFNC 40/100 + venti. Will continue with bipap prn. Continue steroids. Dispo is still LTAC, placement is pending. 03/05: Resipratory distress this morning. Sats 69-70%. subsequently intubated. Now icu level of care. Family wants continue aggressive measures. Will follow [facility] recs. 03/06: Patient with ISH this am probably due to hypotension vs diuretic use, fluid bolus challenge this am. Urine lytes ordered. FWF added for hypernatremia. 03/07: Patient responded to fluid challenge, renal function improved, UOP better. Weaning down pressors, additional IVF bolus today, plan to wean down on pressors requirement. ABG improved today, wean down Fio2 as tolerated. Okay to start trickle feeds. 03/08: Renal function is back to baseline. Going down on pressor requirements, only on low dose Vaso and levophed today. Continue to wean pressors as tolerated. D/W CCm continue to wean Fio2 as tolerated, keep patient a RASS goal of -4 for now. Advance TF as tolerated per order. 03/09: Remains on the vent. Low SPO2 overnight, vent setting was increased. Off pressors this am. IV lasix per [facility], repeat CXR in the am 03/10: Remains intubated and sedated, RASS -4. Back on pressors this am for low BP. This am CXR and ABG reviewed, oxygenation improved. Continue to wean pressors as tolerated. Vent adjustement per [facility] 03/11: Kayexalate given hypernatremia, remains on Levophed, increasing free water flush. 03/12: Hyperkalemia medically treated, repeat potassium is 4. BUN continues to rise. Continue to trend. Patient has been titrated off of Levophed. 03/13: Potassium is trending up, will continue to monitor. Wean Levophed as kylie erated. Hypernatremia worsened, free water flushes increased. Vent changes per [facility]. 03/14: [facility] updated daughter who stated she will discuss with family and update decisions regarding goals of care. FiO2 weaned. Continue to monitor. Levophed restarted. Hospitalist Physical - Constitutional Vitals: Temp Pulse Resp BP Pulse Ox 100.5 F H 98 H 30 H 81/43 93 03/14/21 12:00 03/14/21 14:00 03/14/21 14:00 03/14/21 14:00 03/14/21 14:00 General appearance: Present: no acute distress, well-nourished, other (Intubated and Sedated) - EENT Eyes: Present: PERRL, EOM intact ENT: dentition normal - Neck Neck: Present: normal ROM - Respiratory Respiratory effort: normal Respiratory: bilateral: diminished, rhonchi - Cardiovascular Rhythm: regular Heart Sounds: Present: S1 & S2. Absent: systolic murmur, diastolic murmur - Extremities Extremities: no ischemia, pulses intact, pulses symmetrical, No edema, normal temperature, normal color Peripheral Pulses: within normal limits - Abdominal General gastrointestinal: soft, non-tender, non-distended, normal bowel sounds - Integumentary Integumentary: Present: warm, dry - Psychiatric Psychiatric: other (sedated) - Neurologic Neurologic: other (sedated, intact cough/gag) - Allied Health Allied health notes reviewed: nursing, RT, social work Results - Labs CBC & Chem 7: 03/14/21 07:17 03/14/21 07:17 Labs: Laboratory Last Values WBC 12.7 K/mm3 (4.5-11.0) H 03/14/21 07:17 RBC 3.05 M/mm3 (3.65-5.03) L 03/14/21 07:17 Hgb 8.8 gm/dl (10.1-14.3) L 03/14/21 07:17 Hct 28.5 % (30.3-42.9) L 03/14/21 07:17 MCV 93 fl (79-97) 03/14/21 07:17 MCH 29 pg (28-32) 03/14/21 07:17 MCHC 31 % (30-34) 03/14/21 07:17 RDW 15.3 % (13.2-15.2) H 03/14/21 07:17 Plt Count 267 K/mm3 (140-440) 03/14/21 07:17 Add Manual Diff Complete 03/05/21 10:10 Total Counted 100 03/05/21 10:10 Seg Neuts % (Manual) 77.0 % (40.0-70.0) H 03/05/21 10:10 Band Neutrophils % 3.0 % 03/05/21 10:10 Lymphocytes % (Manual) 12.0 % (13.4-35.0) L 03/05/21 10:10 Reactive Lymphs % (Man) 2.0 % 03/05/21 10:10 Monocytes % (Manual) 5.0 % (0.0-7.3) 03/05/21 10:10 Eosinophils % (Manual) 1.0 % (0.0-4.3) 03/05/21 10:10 Basophils % (Manual) 0 % (0.0-1.8) 03/05/21 10:10 Metamyelocytes % 0 % 03/05/21 10:10 Myelocytes % 0 % 03/05/21 10:10 Promyelocytes % 0 % 03/05/21 10:10 Blast Cells % 0 % 03/05/21 10:10 Nucleated RBC % Not Reportable 03/05/21 10:10 Seg Neutrophils # Man 13.7 K/mm3 (1.8-7.7) H 03/05/21 10:10 Band Neutrophils # 0.5 K/mm3 03/05/21 10:10 Lymphocytes # (Manual) 2.1 K/mm3 (1.2-5.4) 03/05/21 10:10 Abs React Lymphs (Man) 0.4 K/mm3 03/05/21 10:10 Monocytes # (Manual) 0.9 K/mm3 (0.0-0.8) H 03/05/21 10:10 Eosinophils # (Manual) 0.2 K/mm3 (0.0-0.4) 03/05/21 10:10 Basophils # (Manual) 0.0 K/mm3 (0.0-0.1) 03/05/21 10:10 Metamyelocytes # 0.0 K/mm3 03/05/21 10:10 Myelocytes # 0.0 K/mm3 03/05/21 10:10 Promyelocytes # 0.0 K/mm3 03/05/21 10:10 Blast Cells # 0.0 K/mm3 03/05/21 10:10 WBC Morphology Not Reportable 03/05/21 10:10 Hypersegmented Neuts Not Reportable 03/05/21 10:10 Hyposegmented Neuts Not Reportable 03/05/21 10:10 Hypogranular Neuts Not Reportable 03/05/21 10:10 Smudge Cells Not Reportable 03/05/21 10:10 Toxic Granulation Not Reportable 03/05/21 10:10 Toxic Vacuolation Not Reportable 03/05/21 10:10 Dohle Bodies Not Reportable 03/05/21 10:10 Pelger-Huet Anomaly Not Reportable 03/05/21 10:10 Cindy Rods Not Reportable 03/05/21 10:10 Platelet Estimate Consistent w auto 03/05/21 10:10 Clumped Platelets Not Reportable 03/05/21 10:10 Plt Clumps, EDTA Not Reportable 03/05/21 10:10 Large Platelets 1+ 03/05/21 10:10 Giant Platelets Not Reportable 03/05/21 10:10 Platelet Satelliting Not Reportable 03/05/21 10:10 Plt Morphology Comment Not Reportable 03/05/21 10:10 RBC Morphology Not Reportable 03/05/21 10:10 Dimorphic RBCs Not Reportable 03/05/21 10:10 Polychromasia Few 03/05/21 10:10 Hypochromasia Not Reportable 03/05/21 10:10 Poikilocytosis Not Reportable 03/05/21 10:10 Anisocytosis 1+ 03/05/21 10:10 Microcytosis Not Reportable 03/05/21 10:10 Macrocytosis Not Reportable 03/05/21 10:10 Spherocytes Not Reportable 03/05/21 10:10 Pappenheimer Bodies Not Reportable 03/05/21 10:10 Sickle Cells Not Reportable 03/05/21 10:10 Target Cells Not Reportable 03/05/21 10:10 Tear Drop Cells Not Reportable 03/05/21 10:10 Ovalocytes Not Reportable 03/05/21 10:10 Helmet Cells Not Reportable 03/05/21 10:10 [place] Bodies Not Reportable 03/05/21 10:10 [place] Rings Not Reportable 03/05/21 10:10 [place] Cells Not Reportable 03/05/21 10:10 Bite Cells Not Reportable 03/05/21 10:10 Crenated Cell Not Reportable 03/05/21 10:10 Elliptocytes Not Reportable 03/05/21 10:10 Acanthocytes (Spur) Not Reportable 03/05/21 10:10 Rouleaux Not Reportable 03/05/21 10:10 Hemoglobin C Crystals Not Reportable 03/05/21 10:10 Schistocytes Not Reportable 03/05/21 10:10 Malaria parasites Not Reportable 03/05/21 10:10 [place] Bodies Not Reportable 03/05/21 10:10 Hem Pathologist Commnt No 03/05/21 10:10 PT 13.9 Sec. (12.2-14.9) 02/17/21 14:34 INR 0.96 (0.87-1.13) 02/17/21 14:34 APTT 26.4 Sec. (24.2-36.6) 02/17/21 14:34 D-Dimer 3469.99 ng/mlDDU (0-234) H 03/01/21 05:12 ABG pH 7.306 pH Units (7.350-7.450) L 03/14/21 03:44 POC ABG pCO2 79.6 mmHg (32.0-48.0) H 03/12/21 04:06 ABG pCO2 75.2 mm Hg 03/14/21 03:44 POC ABG pO2 105.2 mmHg (83-108) 03/12/21 04:06 ABG pO2 75.4 mm Hg (80.0-90.0) L 03/14/21 03:44 POC ABG HCO3 35.0 03/12/21 04:06 ABG HCO3 36.7 mmol/L (20.0-26.0) H 03/14/21 03:44 ABG O2 Saturation 95.7 % (95.0-99.0) 03/14/21 03:44 ABG O2 Content 10.9 (0.0-44) 03/14/21 03:44 POC ABG Base Excess 6.2 03/12/21 04:06 ABG Base Excess 8.9 mmol/L (-2.0-3.0) H 03/14/21 03:44 ABG Hemoglobin 8.2 gm/dl (12.0-16.0) L 03/14/21 03:44 ABG Oxyhemoglobin 94.8 (94-98) 03/12/21 04:06 ABG Carboxyhemoglobin 1.7 % (0.0-5.0) 03/14/21 03:44 ABG Methemoglobin 0.5 % (0.0-1.5) 03/14/21 03:44 Oxyhemoglobin 93.6 % (95.0-99.0) L 03/14/21 03:44 Carboxyhemoglobin 1.5 (0.5-1.5) 03/12/21 04:06 FiO2 80 % 03/14/21 03:44 FiO2 % 90.0 03/12/21 04:06 Sodium 145 mmol/L (137-145) 03/14/21 07:17 Potassium 4.7 mmol/L (3.6-5.0) 03/14/21 07:17 Chloride 104.4 mmol/L (98-107) 03/14/21 07:17 Carbon Dioxide 33 mmol/L (22-30) H 03/14/21 07:17 Anion Gap 12 mmol/L 03/14/21 07:17 BUN 61 mg/dL (7-17) H 03/14/21 07:17 Creatinine 0.8 mg/dL (0.6-1.2) 03/14/21 07:17 Estimated GFR > 60 ml/min 03/14/21 07:17 BUN/Creatinine Ratio 76 % 03/14/21 07:17 Glucose 121 mg/dL (65-100) H 03/14/21 07:17 POC Glucose 114 mg/dL (70-105) H 03/14/21 10:59 Lactic Acid 1.60 mmol/L (0.7-2.0) 02/17/21 18:39 Calcium 9.0 mg/dL (8.4-10.2) 03/14/21 07:17 Phosphorus 4.70 mg/dL (2.5-4.5) H 03/14/21 07:17 Magnesium 2.80 mg/dL (1.7-2.3) H 03/14/21 07:17 Ferritin 1526.0 ng/mL (10.0-200.0) H 03/01/21 05:12 Total Bilirubin 0.30 mg/dL (0.1-1.2) 03/05/21 10:10 Direct Bilirubin < 0.2 mg/dL (0-0.2) 02/17/21 14:34 Indirect Bilirubin 0.1 mg/dL 02/17/21 14:34 AST 38 units/L (5-40) 03/05/21 10:10 ALT 44 units/L (7-56) 03/05/21 10:10 Alkaline Phosphatase 78 units/L (35-129) 03/05/21 10:10 Lactate Dehydrogenase 385 units/L (91-180) H 03/01/21 05:12 C-Reactive Protein 11.20 mg/dL (0.00-1.30) H 03/01/21 05:12 NT-Pro-B Natriuret Pep 86.77 pg/mL (0-900) 02/20/21 16:34 Total Protein 7.7 g/dL (6.3-8.2) 03/05/21 10:10 Albumin 3.1 g/dL (3.9-5) L 03/05/21 10:10 Albumin/Globulin Ratio 0.7 % 03/05/21 10:10 Triglycerides 130 mg/dL (2-149) 03/12/21 04:30 Procalcitonin 0.11 ng/mL (<0.15) 02/19/21 07:32 Urine Color Cassandra (Yellow) 02/18/21 Unknown Urine Turbidity Cloudy (Clear) 02/18/21 Unknown Urine pH 5.0 (5.0-7.0) 02/18/21 Unknown Ur Specific [place] 1.027 (1.003-1.030) 02/18/21 Unknown Urine Protein 100 mg/dl mg/dL (Negative) 02/18/21 Unknown Urine Glucose (UA) Neg mg/dL (Negative) 02/18/21 Unknown Urine Ketones Neg mg/dL (Negative) 02/18/21 Unknown Urine Blood Neg (Negative) 02/18/21 Unknown Urine Nitrite Neg (Negative) 02/18/21 Unknown Urine Bilirubin Neg (Negative) 02/18/21 Unknown Urine Urobilinogen < 2.0 mg/dL (<2.0) 02/18/21 Unknown Ur Leukocyte Esterase Neg (Negative) 02/18/21 Unknown Urine WBC (Auto) 7.0 /HPF (0.0-6.0) H 02/18/21 Unknown Urine RBC (Auto) 4.0 /HPF (0.0-6.0) 02/18/21 Unknown U Epithel Cells (Auto) 3.0 /HPF (0-13.0) 02/18/21 Unknown Urine Mucus 2+ /HPF 02/18/21 Unknown Urine Creatinine 247.7 mg/dL (0.1-20.0) H 03/06/21 09:00 Urine Sodium 25 mmol/L 03/06/21 09:00 Coronavirus (PCR) Positive (Negative) A 02/18/21 Unknown Head/IV: Voiding Method Indwelling Catheter Active Medications - Current Medications Current Medications: Generic Name Dose Route Start Last Admin Trade Name Freq PRN Reason Stop Dose Admin Acetaminophen 650 mg 02/17/21 23:58 03/11/21 04:27 Acetaminophen 325 Mg Tab PO 650 mg Q4H PRN Administration Pain MILD(1-3)/Fever >100.5/BROWN Dextrose 0 ml 03/11/21 10:46 Dextrose 10% *Hypoglycemia IV PRN PRN Hypoglycemia Enoxaparin Sodium 90 mg 03/08/21 22:00 03/14/21 09:49 Enoxaparin 100 Mg/1 Ml Inj 1 mg/kg (90 mg) 90 mg SUB-Q Administration Q12HR DEISY Protocol Famotidine 20 mg 03/11/21 22:00 03/14/21 09:49 Famotidine 20 Mg Tab FEEDTUBE 20 mg BID DEISY Administration Fentanyl 50 mcg 03/05/21 09:38 03/12/21 17:58 Fentanyl 100 Mcg/2 Ml Inj IV 50 mcg Q10MIN PRN Administration ANALGESIA Gabapentin 400 mg 02/19/21 04:00 03/14/21 09:49 Gabapentin 400 Mg Cap PO 400 mg BID DEISY Administration Hydrophilic Ointment 1 applic 03/05/21 09:39 Lip Therapy Vaseline TP Q2HR PRN Dry Lips Propofol 1,000 mg in 100 mls @ 2.585 mls/hr 03/05/21 10:00 03/14/21 12:01 Diprivan 10 Mg/Ml IV 20 mcg/kg/min TITR DEISY 10.342 mls/hr Administration Protocol 5 MCG/KG/MIN Fentanyl Citrate 2,000 mcg in 100 mls @ 4.309 mls/hr 03/05/21 10:00 03/14/21 15:01 Fentanyl Drip Premix IV 4 mcg/kg/hr TITR DEISY 17.237 mls/hr Administration Protocol 1 MCG/KG/HR Midazolam HCl 100 mg/ Sodium 100 mls @ 1 mls/hr 03/05/21 11:00 03/14/21 04:02 Chloride IV 3 mg/hr TITR DEISY 3 mls/hr Administration Protocol 1 MG/HR NORepinephrine/NS 8 MG-250 ML 8 mg in 250 mls @ 3.75 mls/hr 03/05/21 10:15 03/14/21 14:17 Norepinephrine/Ns 8 Mg-250 Ml (Double Conc) IV 2 mcg/min TITRATE DEISY 3.75 mls/hr Titration Protocol 2 MCG/MIN Dexmedetomidine HCl 400 mcg/ 104 mls @ 4.482 mls/hr 03/05/21 14:00 Sodium Chloride IV TITRATE DEISY Protocol 0.2 MCG/KG/HR Vasopressin 20 unit/ Sodium 101 mls @ 9.09 mls/hr 03/06/21 06:00 03/08/21 10:30 Chloride IV 0 units/min TITR DEISY 0 mls/hr Titration Protocol 0.03 UNITS/MIN Insulin Glargine 10 units 03/02/21 22:00 03/13/21 21:05 Insulin Glargine 100 Units/Ml SUB-Q 10 units QHS [facility] Administration Insulin Human Lispro 0 unit 03/05/21 18:00 03/14/21 05:57 Insulin Lispro 100 Unit/Ml SUB-Q Not Given Q6HR [facility] Protocol Midazolam HCl 2 mg 03/05/21 10:11 03/05/21 10:53 Midazolam 2 Mg/2 Ml Inj IV 2 mg Q10MIN PRN Administration Sedation Multi-Ingred Cream/Lotion/Oil/Oint 1 applic 03/05/21 09:39 Mineral Oil/Petrolatum, White Ophth Oint 3.5 Gm OU Q4HR PRN Dry Eye(s) Ondansetron HCl 4 mg 02/17/21 23:58 Ondansetron 4 Mg/2 Ml Inj IV Q8H PRN Nausea And Vomiting Senna/Docusate Sodium 1 tab 03/05/21 10:00 03/13/21 21:06 Sennosides/Docusate Sodium 8.6/50 Mg Tab FEEDTUBE 1 tab BID DEISY Administration Sertraline HCl 50 mg 02/19/21 10:00 03/14/21 09:49 Sertraline 50 Mg Tab PO 50 mg QDAY DEISY Administration Sodium Chloride 10 ml 02/18/21 10:00 03/13/21 21:06 Sodium Chloride 0.9% 10 Ml Flush Syringe IV 10 ml BID DEISY Administration Sodium Chloride 10 ml 02/17/21 23:58 Sodium Chloride 0.9% 10 Ml Flush Syringe IV PRN PRN LINE FLUSH Sodium Chloride 10 ml 03/11/21 09:49 Sodium Chloride 0.9% 50 Ml Ivpb IV PRN PRN FLUSH Nutrition/Malnutrition Assess - Dietary Evaluation Nutrition/Malnutrition Findings: Nutrition Notes Start: 02/25/21 16:10 Freq: Status: Active Protocol: Document 03/11/21 16:53 ALEC (Rec: 03/11/21 17:06 ALEC [id number]) Nutrition Notes Initial or Follow up Brief Note Current Diet TF-Glucerna 1.2 Dagoberto @ 48 ml/hr (since D 03/08). Height 5 ft 6 in Weight 86.183 kg [place] Body Weight (kg) 59.09 BMI 30.7 Weight change and time frame No body weight change reported . Weight Status Obese Subjective/Other Information RD consult for routinr F/U on TF tolerance. Pt continues on mechanical ventilation. TF well tolerated, according to RN notes. Percent of energy/protein needs met: Prescribed Glucerna 1.2 Dagoberto @ 48 ml/hr provides for energy/ protein needs (1,390 Kcal/70 g ) during LOS, 100% Kcal; 75% AA. #2 Nutrition Diagnosis Inadequate oral intake Diagnosis Progress(for reassessment Continues documentation) #1 Nutrition Diagnosis Inadequate protein-energy intake Diagnosis Progress(for reassessment Continues documentation) Is patient on ventilator? Yes Is Patient Ambulatory and/or Out of Bed No REE-([facility]-confined to bed) 1737.120 Calculation Used for Recommendations 70-80% energy needs Additional Notes Energy: 3588-5353 kcal/day Protein: 1.3 g/kg adjBW: 94 g/ day Fluids: 1 ml/kcal, or as per MD. Nutrition Intervention Nutrition Support: Continue Glucerna 1.2 Dagoberto @ 50 ml/hr. Flush: 80 ml water Q 4 hr, or as per MD. Kcal 1,440 Protein (gm) 72 Carbohydrates (gm) 137 Fat (gm) 72 Fluid (mL) 966 Fiber (gm) 19 % RDI: 100% Kcal; 75% AA. Goal #1 Provide at least 75% of energy /protein needs through Enteral Feeding during LOS. Follow-Up By: 03/18/21 Additional Comments Continue monitoring TF tolerance and BM.
[2021-03-14] MEDS: NORepinephrine/NS 8 MG-250 ML 8 MG/250 ML INFUS..BTL IV SCH (19:37)
[2021-03-14] MEDS: INSULIN GLARGINE 100 UNITS/ML SUB-Q SCH (22:08)
[2021-03-14] MEDS: SENNOSIDES/DOCUSATE SODIUM 8.6/50 MG TAB FEEDTUBE SCH (22:09)
[2021-03-15] MEDS: INSULIN LISPRO 100 UNIT/ML SUB-Q SCH ×4 (00:36→21:35)
[2021-03-15] MEDS: fentaNYL DRIP Premix 2,000 MCG/100 ML BAG IV SCH ×3 (04:22→20:46)
[2021-03-15 05:26] LABS: Hemoglobin 8.4 gm/dl (10.1-14.3)
[2021-03-15 05:43] LABS: BUN/Creatinine Ratio 76; Blood Urea Nitrogen 68 mg/dL (7-17); Calcium 9.6 mg/dL (8.4-10.2); Hemolysis Index 0
[2021-03-15 08:26] LABS: Hematocrit 27.9 % (30.3-42.9); Mean Corpuscular HGB Conc 31 % (30-34); Mean Corpuscular Volume 93 fl (79-97); Platelet Count 297 K/mm3 (140-440); Red Blood Count 2.99 M/mm3 (3.65-5.03); Red Cell Distribution Width 15.6 % (13.2-15.2)
[2021-03-15] MEDS: SERTRALINE 50 MG TAB PO SCH (09:59)
[2021-03-15] MEDS: GABAPENTIN 400 MG CAP PO SCH ×2 (09:59→21:48)
[2021-03-15] MEDS: ENOXAPARIN 100 MG/1 ML INJ SUB-Q SCH ×2 (09:59→21:48)
[2021-03-15] MEDS: SENNOSIDES/DOCUSATE SODIUM 8.6/50 MG TAB FEEDTUBE SCH ×2 (09:59→21:49)
[2021-03-15] MEDS: FAMOTIDINE 20 MG TAB FEEDTUBE SCH ×2 (09:59→21:49)
[2021-03-15] MEDS: FREE WATER PO SCH ×5 (10:12→21:48)
--- NOTE | 2021-03-15 12:02 | Progress Note ---
Assessment and Plan 61 y/o female with acute respiratory failure secondary to COVID 19 pneumonia. 03/15/21: Continue supportive measures. Continue to monitor renal function and fluid balance. May need to give a bolus today as she is back on levophed. She was on lasix daily prior to intubation. Prognosis still remains guarded to poor. Still no real success with weaning FiO2. 03/14/21: Long discussion over the phone with daughter at request of charge nurse. Updated her on her mothers current condition and lack of improvement. She states that she has been thinking about what the next steps would be for her mother. I explained to her that her vent settings are too high for trach and peg at this moment. The other option would be, knowing that her mother did not want to be intubated but rescinded her DNR at the request of the daughter, to consider comfort measures for her. The daughter states that she will speak with her Aunt (patients sister) and they will let us know. WIll continue supportive measures and attempt to wean FIO2 to at least 60%. ONce there, can start weaning PEEP if able to get there. Monitor fluids and renal function. OVerall prognosis is guarded to poor. Also discussed the very high mortality rate a ssociated with COVID patients and mechanical ventilation. 03/13/21: K is better but looks like it may be trending up again. Continue to monitor. Continue anticoagulation. Wean FiO2 for sats >88% and PaO2>55. Goal would be to get FiO2 to at least 60% or less. Still making urine. Prognosis however remains guarded to poor. 03/12/21: K is elevated again today. No evidence of bleeding. Plateletes did drop but still good levels. Will monitor. Wean levophed as tolerated. Contin ues to make good urine. Guarded to poor prognosis. 03/11/21: K is elevated but renal function and urine output remains stable. Maintain current level of sedation. On Levophed, may need to give more volume. Ok with weaning FiO2 for sats >88% and or PaO2 of 55 and greater. Unable to prone at this time. Guarded prognosis. 03/08/21: Continue to monitor urine output and function. Consider more fluid today. Maintain current level of sedation. Wean FiO2 for sats >88% and or PaO2 >55. Prognosis still remains guarded. Please do not wean PEEP until FiO2 as at 45-50% 1/20/22: Continue supportive measures. Monitor urine output and function. Labs are better today and she did put out more urine with fluid bolus so will give again today. Overall prognosis remains extremely guarded. 03/06/21: Overall clinical state is worsening. Now with difficulty ventilation and with improved ventilation comes a compromise in oxygenation. Newest concern is renal function which is worsening. If patient requires dialysis then mortality increases and prognosis worsens. If requires HD, prognosis is very very guarded to poor. 03/05/21: Added versed drip to fent and Diprovan to keep RASS at -4. Will also order precedex in the event it is needed. Repeat ABG somewhat improved but increased RR. Must watch Peak Pressures. attempting to do low lung volume protective ventilator strategy. Patient has actually been off steroids for some time. Will not restart as of yet. Unable to prone. Guarded prognosis. This discussion was had over the weekend with the daughter when I thought we would have to intubate then. Explained that vent is not therapy but only something to give her lungs time to rest, if possible to see if they can recover. Prognosis is very guarded to poor. 03/04/21: Continue supportive care between HFNC and bipap therapy. Steroids. Positive reinforcement. 03/03/21: Long discussion at bedside with patient. Today she stated that she did not want to be intubated. I attempted to call her daughter while I was in the room with the patient but no answer. She will remain full code as she has said this in the past and then revoked after speaking with the daughter ( which is why i called her again this morning). Continue bipap and monitor. Guarded prognosis. 03/02/21: Prone if able. Continue steroids. Negative fluid balance if possible. Prognosis remains very guarded 02/28/21: Prone. Steroids. Net negative fluid balance if possible. Guarded prognosis. 02/27/21: Full code status. Prone as much as possible during the day and sleep prone at night. Patient may require intubation ultimately. Guarded prognosis. 02/26/21: Prone if possible. Continue anticoagulation for DVT. Steroids. Net negative fluid balance. 02/25/21: Long discussion at bedside with patient, whom per her, she has discussed this with her daughter. She does no want an endotracheal tube. She does not want chest compression and she does not want shocks. I did not ask about vasopressors. The patient is awake and alert and oriented. This needs to be addressed by primary team as well an if confirmed, I have no problem with cosigning AND order. Continue supportive measures for now. Guarded to poor prognosis. 02/21/21: BNP normal. Still would attempt to achieve net negative fluid balance daily. Continue Remdesivir and steroids. Prone if patient willing. Follow up CTA results. Discussed with IMS, may change anticoagulation but awaiting official ready on CTA. Guareded prognosis. 02/20/21: Follow up CTA results. Will send BNP. Continue steroids and R emdesivir. Guarded prognosis. Prone if able, very pertinent to do this. 1. self proning as tolerated during the day and prone at night while sleeping 2. Steroids and Remdesivir 3. Daily net negative volume state 4. Consider checking BNP and echo to make sure no edema on this film 5. Agree with empiric anticoagulation given elevated D-Dimer Guarded prognosis. Will continue to follow. CCT 31 minutes. Subjective Date of service: 03/15/21 Principal diagnosis: COVID pneumonia Interval history: No acute events. Tried to drop Fio2 to 75 but sat went to 87. Still making urine and moving bowels. Sedation is adequate and pH is acceptable given permissive hypercapnea for low lung volume strategy. Objective Vital Signs - 12hr 03/15/21 03/15/21 03/15/21 00:00 01:00 02:00 Temperature 98.8 F Pulse Rate 89 87 89 Pulse Rate [ 88 From Monitor] Respiratory 30 H 30 H 24 Rate Blood Pressure 99/61 101/62 97/52 O2 Sat by Pulse 93 92 91 Oximetry 03/15/21 03/15/21 03/15/21 03:00 03:30 04:00 Temperature 98.8 F Pulse Rate 92 H 91 H 88 Pulse Rate [ 88 From Monitor] Respiratory 29 H 25 H Rate Blood Pressure 93/54 96/59 96/59 O2 Sat by Pulse 91 93 89 Oximetry 03/15/21 03/15/21 03/15/21 05:00 06:00 08:00 Temperature 98.7 F Pulse Rate 93 H 93 H Pulse Rate [ From Monitor] Respiratory 26 H 32 H Rate Blood Pressure 100/59 100/57 O2 Sat by Pulse 90 90 Oximetry 03/15/21 08:10 Temperature Pulse Rate 96 H Pulse Rate [ From Monitor] Respiratory Rate Blood Pressure 100/57 O2 Sat by Pulse 91 Oximetry Constitutional: alert, other (on hiflo) ENT: oropharynx moist Neck: supple Ascultation: Bilateral: diminished breath sounds Cardiovascular: regular rate and rhythm Gastrointestinal: normoactive bowel sounds, soft, non-tender, non-distended Integumentary: normal Extremities: no cyanosis CBC and BMP: 03/15/21 04:30 03/15/21 04:30 ABG, PT/INR, D-dimer: ABG ABG pH 7.237 (7.320-7.450) L 03/15/21 04:00 POC ABG pCO2 80.6 mmHg (32.0-48.0) H 03/15/21 04:00 ABG pCO2 75.2 mm Hg 03/14/21 03:44 POC ABG pO2 71.8 mmHg (83-108) L 03/15/21 04:00 ABG pO2 75.4 mm Hg (80.0-90.0) L 03/14/21 03:44 POC ABG HCO3 33.5 03/15/21 04:00 ABG O2 Saturation 93.3 (0-100) 03/15/21 04:00 PT/INR, D-dimer PT 13.9 Sec. (12.2-14.9) 02/17/21 14:34 INR 0.96 (0.87-1.13) 02/17/21 14:34 D-Dimer 3469.99 ng/mlDDU (0-234) H 03/01/21 05:12 Abnormal lab findings: Abnormal Labs 02/17/21 02/17/21 02/17/21 14:34 14:34 14:34 WBC 11.7 H RBC Hgb Hct 44.9 H RDW 15.6 H Plt Count Seg Neuts % (Manual) Lymphocytes % (Manual) 9.0 L Monocytes % (Manual) 12.0 H Seg Neutrophils # Man 8.2 H Lymphocytes # (Manual) 1.1 L Monocytes # (Manual) 1.4 H D-Dimer ABG pH POC ABG pCO2 POC ABG pO2 ABG pO2 ABG HCO3 ABG O2 Saturation ABG Base Excess ABG Hemoglobin ABG Oxyhemoglobin Oxyhemoglobin Carboxyhemoglobin Sodium Potassium 3.5 L Chloride Carbon Dioxide BUN 27 H Creatinine Glucose 150 H POC Glucose Lactic Acid 2.90 H* Calcium Phosphorus Magnesium Ferritin AST Lactate Dehydrogenase C-Reactive Protein NT-Pro-B Natriuret Pep Albumin Triglycerides Urine WBC (Auto) Urine Creatinine Coronavirus (PCR) 02/17/21 02/18/21 02/18/21 14:34 07:48 07:48 WBC 12.0 H RBC Hgb Hct RDW 15.4 H Plt Count Seg Neuts % (Manual) 76.0 H Lymphocytes % (Manual) Monocytes % (Manual) Seg Neutrophils # Man 9.1 H Lymphocytes # (Manual) Monocytes # (Manual) D-Dimer ABG pH POC ABG pCO2 POC ABG pO2 ABG pO2 ABG HCO3 ABG O2 Saturation ABG Base Excess ABG Hemoglobin ABG Oxyhemoglobin Oxyhemoglobin Carboxyhemoglobin Sodium Potassium Chloride Carbon Dioxide BUN 36 H Creatinine Glucose 133 H POC Glucose Lactic Acid Calcium Phosphorus Magnesium Ferritin AST 57 H Lactate Dehydrogenase C-Reactive Protein NT-Pro-B Natriuret Pep 1619 H Albumin 3.3 L Triglycerides Urine WBC (Auto) Urine Creatinine Coronavirus (PCR) 02/18/21 02/18/21 02/19/21 Unknown Unknown 07:32 WBC RBC Hgb Hct RDW Plt Count Seg Neuts % (Manual) Lymphocytes % (Manual) Monocytes % (Manual) Seg Neutrophils # Man Lymphocytes # (Manual) Monocytes # (Manual) D-Dimer ABG pH POC ABG pCO2 POC ABG pO2 ABG pO2 ABG HCO3 ABG O2 Saturation ABG Base Excess ABG Hemoglobin ABG Oxyhemoglobin Oxyhemoglobin Carboxyhemoglobin Sodium 148 H D Potassium Chloride Carbon Dioxide BUN 41 H Creatinine Glucose 123 H POC Glucose Lactic Acid Calcium Phosphorus Magnesium Ferritin AST 57 H Lactate Dehydrogenase C-Reactive Protein NT-Pro-B Natriuret Pep Albumin 3.7 L Triglycerides Urine WBC (Auto) 7.0 H Urine Creatinine Coronavirus (PCR) Positive A 02/19/21 02/19/21 02/20/21 07:32 08:43 05:00 WBC RBC Hgb Hct RDW Plt Count Seg Neuts % (Manual) Lymphocytes % (Manual) Monocytes % (Manual) Seg Neutrophils # Man Lymphocytes # (Manual) Monocytes # (Manual) D-Dimer > 67377 H ABG pH POC ABG pCO2 POC ABG pO2 ABG pO2 ABG HCO3 ABG O2 Saturation ABG Base Excess ABG Hemoglobin ABG Oxyhemoglobin Oxyhemoglobin Carboxyhemoglobin Sodium 147 H Potassium Chloride 107.6 H Carbon Dioxide BUN 36 H Creatinine Glucose POC Glucose Lactic Acid Calcium Phosphorus Magnesium Ferritin AST Lactate Dehydrogenase C-Reactive Protein 10.90 H NT-Pro-B Natriuret Pep Albumin 3.3 L Triglycerides Urine WBC (Auto) Urine Creatinine Coronavirus (PCR) 02/20/21 02/21/21 02/21/21 18:46 04:44 04:44 WBC 16.7 H RBC Hgb Hct RDW Plt Count Seg Neuts % (Manual) Lymphocytes % (Manual) Monocytes % (Manual) Seg Neutrophils # Man Lymphocytes # (Manual) Monocytes # (Manual) D-Dimer ABG pH 7.453 H POC ABG pCO2 POC ABG pO2 ABG pO2 55.0 L ABG HCO3 26.6 H ABG O2 Saturation 88.3 L ABG Base Excess ABG Hemoglobin ABG Oxyhemoglobin Oxyhemoglobin 86.8 L Carboxyhemoglobin Sodium Potassium Chloride Carbon Dioxide BUN 26 H Creatinine Glucose 111 H POC Glucose Lactic Acid Calcium Phosphorus Magnesium Ferritin AST Lactate Dehydrogenase C-Reactive Protein NT-Pro-B Natriuret Pep Albumin 3.4 L Triglycerides Urine WBC (Auto) Urine Creatinine Coronavirus (PCR) 02/22/21 02/23/21 02/23/21 04:47 09:05 09:05 WBC 19.3 H RBC 5.29 H Hgb 15.2 H Hct 47.7 H D RDW Plt Count Seg Neuts % (Manual) 82.0 H Lymphocytes % (Manual) 6.0 L Monocytes % (Manual) Seg Neutrophils # Man 15.8 H Lymphocytes # (Manual) Monocytes # (Manual) 1.0 H D-Dimer ABG pH POC ABG pCO2 POC ABG pO2 ABG pO2 ABG HCO3 ABG O2 Saturation ABG Base Excess ABG Hemoglobin ABG Oxyhemoglobin Oxyhemoglobin Carboxyhemoglobin Sodium Potassium Chloride Carbon Dioxide BUN 25 H 27 H Creatinine Glucose 125 H POC Glucose Lactic Acid Calcium Phosphorus Magnesium Ferritin AST Lactate Dehydrogenase C-Reactive Protein NT-Pro-B Natriuret Pep Albumin 3.3 L Triglycerides Urine WBC (Auto) Urine Creatinine Coronavirus (PCR) 02/23/21 02/23/21 02/24/21 11:33 16:24 04:50 WBC 14.8 H RBC Hgb Hct RDW Plt Count Seg Neuts % (Manual) Lymphocytes % (Manual) Monocytes % (Manual) Seg Neutrophils # Man Lymphocytes # (Manual) Monocytes # (Manual) D-Dimer ABG pH POC ABG pCO2 POC ABG pO2 ABG pO2 ABG HCO3 ABG O2 Saturation ABG Base Excess ABG Hemoglobin ABG Oxyhemoglobin Oxyhemoglobin Carboxyhemoglobin Sodium Potassium Chloride Carbon Dioxide BUN Creatinine Glucose POC Glucose 117 H 163 H Lactic Acid Calcium Phosphorus Magnesium Ferritin AST Lactate Dehydrogenase C-Reactive Protein NT-Pro-B Natriuret Pep Albumin Triglycerides Urine WBC (Auto) Urine Creatinine Coronavirus (PCR) 02/24/21 02/25/21 02/27/21 04:50 21:12 04:57 WBC 17.0 H RBC Hgb Hct 43.4 H RDW Plt Count Seg Neuts % (Manual) 84.0 H Lymphocytes % (Manual) 4.0 L Monocytes % (Manual) Seg Neutrophils # Man 14.3 H Lymphocytes # (Manual) 0.7 L Monocytes # (Manual) 0.9 H D-Dimer ABG pH POC ABG pCO2 POC ABG pO2 ABG pO2 ABG HCO3 ABG O2 Saturation ABG Base Excess ABG Hemoglobin ABG Oxyhemoglobin Oxyhemoglobin Carboxyhemoglobin Sodium Potassium Chloride Carbon Dioxide BUN 23 H Creatinine Glucose POC Glucose 175 H Lactic Acid Calcium Phosphorus Magnesium Ferritin AST Lactate Dehydrogenase C-Reactive Protein NT-Pro-B Natriuret Pep Albumin Triglycerides Urine WBC (Auto) Urine Creatinine Coronavirus (PCR) 02/27/21 02/27/21 02/27/21 04:57 04:57 04:57 WBC RBC Hgb Hct RDW Plt Count Seg Neuts % (Manual) Lymphocytes % (Manual) Monocytes % (Manual) Seg Neutrophils # Man Lymphocytes # (Manual) Monocytes # (Manual) D-Dimer 5013.37 H ABG pH POC ABG pCO2 POC ABG pO2 ABG pO2 ABG HCO3 ABG O2 Saturation ABG Base Excess ABG Hemoglobin ABG Oxyhemoglobin Oxyhemoglobin Carboxyhemoglobin Sodium Potassium Chloride Carbon Dioxide BUN 23 H Creatinine 0.5 L Glucose 113 H POC Glucose Lactic Acid Calcium Phosphorus Magnesium Ferritin 1272.0 H AST Lactate Dehydrogenase 438 H C-Reactive Protein 5.80 H NT-Pro-B Natriuret Pep Albumin Triglycerides Urine WBC (Auto) Urine Creatinine Coronavirus (PCR) 02/27/21 02/27/21 02/28/21 17:53 21:12 07:40 WBC RBC Hgb Hct RDW Plt Count Seg Neuts % (Manual) Lymphocytes % (Manual) Monocytes % (Manual) Seg Neutrophils # Man Lymphocytes # (Manual) Monocytes # (Manual) D-Dimer ABG pH POC ABG pCO2 POC ABG pO2 ABG pO2 ABG HCO3 ABG O2 Saturation ABG Base Excess ABG Hemoglobin ABG Oxyhemoglobin Oxyhemoglobin Carboxyhemoglobin Sodium Potassium Chloride Carbon Dioxide BUN Creatinine Glucose POC Glucose 159 H 112 H 123 H Lactic Acid Calcium Phosphorus Magnesium Ferritin AST Lactate Dehydrogenase C-Reactive Protein NT-Pro-B Natriuret Pep Albumin Triglycerides Urine WBC (Auto) Urine Creatinine Coronavirus (PCR) 02/28/21 02/28/21 02/28/21 11:42 16:20 22:26 WBC RBC Hgb Hct RDW Plt Count Seg Neuts % (Manual) Lymphocytes % (Manual) Monocytes % (Manual) Seg Neutrophils # Man Lymphocytes # (Manual) Monocytes # (Manual) D-Dimer ABG pH POC ABG pCO2 POC ABG pO2 ABG pO2 ABG HCO3 ABG O2 Saturation ABG Base Excess ABG Hemoglobin ABG Oxyhemoglobin Oxyhemoglobin Carboxyhemoglobin Sodium Potassium Chloride Carbon Dioxide BUN Creatinine Glucose POC Glucose 112 H 138 H 129 H Lactic Acid Calcium Phosphorus Magnesium Ferritin AST Lactate Dehydrogenase C-Reactive Protein NT-Pro-B Natriuret Pep Albumin Triglycerides Urine WBC (Auto) Urine Creatinine Coronavirus (PCR) 03/01/21 03/01/21 03/01/21 05:12 05:12 05:12 WBC 15.0 H RBC 5.05 H Hgb Hct 44.7 H RDW Plt Count Seg Neuts % (Manual) 71.0 H Lymphocytes % (Manual) 11.0 L Monocytes % (Manual) 12.0 H Seg Neutrophils # Man 10.7 H Lymphocytes # (Manual) Monocytes # (Manual) 1.8 H D-Dimer 3469.99 H ABG pH POC ABG pCO2 POC ABG pO2 ABG pO2 ABG HCO3 ABG O2 Saturation ABG Base Excess ABG Hemoglobin ABG Oxyhemoglobin Oxyhemoglobin Carboxyhemoglobin Sodium Potassium Chloride 97.3 L Carbon Dioxide BUN Creatinine 0.5 L Glucose 115 H POC Glucose Lactic Acid Calcium Phosphorus Magnesium Ferritin AST Lactate Dehydrogenase 385 H C-Reactive Protein 11.20 H NT-Pro-B Natriuret Pep Albumin 2.8 L Triglycerides Urine WBC (Auto) Urine Creatinine Coronavirus (PCR) 01/03/01/21 03/01/21 05:12 07:30 11:42 WBC RBC Hgb Hct RDW Plt Count Seg Neuts % (Manual) Lymphocytes % (Manual) Monocytes % (Manual) Seg Neutrophils # Man Lymphocytes # (Manual) Monocytes # (Manual) D-Dimer ABG pH POC ABG pCO2 POC ABG pO2 ABG pO2 ABG HCO3 ABG O2 Saturation ABG Base Excess ABG Hemoglobin ABG Oxyhemoglobin Oxyhemoglobin Carboxyhemoglobin Sodium Potassium Chloride Carbon Dioxide BUN Creatinine Glucose POC Glucose 130 H 143 H Lactic Acid Calcium Phosphorus Magnesium Ferritin 1526.0 H AST Lactate Dehydrogenase C-Reactive Protein NT-Pro-B Natriuret Pep Albumin Triglycerides Urine WBC (Auto) Urine Creatinine Coronavirus (PCR) 03/01/21 03/01/21 03/01/21 15:28 17:53 21:16 WBC RBC Hgb Hct RDW Plt Count Seg Neuts % (Manual) Lymphocytes % (Manual) Monocytes % (Manual) Seg Neutrophils # Man Lymphocytes # (Manual) Monocytes # (Manual) D-Dimer ABG pH POC ABG pCO2 POC ABG pO2 ABG pO2 ABG HCO3 ABG O2 Saturation ABG Base Excess ABG Hemoglobin ABG Oxyhemoglobin Oxyhemoglobin Carboxyhemoglobin Sodium Potassium Chloride Carbon Dioxide BUN Creatinine Glucose POC Glucose 138 H 120 H 157 H Lactic Acid Calcium Phosphorus Magnesium Ferritin AST Lactate Dehydrogenase C-Reactive Protein NT-Pro-B Natriuret Pep Albumin Triglycerides Urine WBC (Auto) Urine Creatinine Coronavirus (PCR) 03/01/21 03/02/21 03/02/21 22:07 07:44 11:40 WBC RBC Hgb Hct RDW Plt Count Seg Neuts % (Manual) Lymphocytes % (Manual) Monocytes % (Manual) Seg Neutrophils # Man Lymphocytes # (Manual) Monocytes # (Manual) D-Dimer ABG pH POC ABG pCO2 POC ABG pO2 ABG pO2 35.9 L* ABG HCO3 31.2 H ABG O2 Saturation 68.0 L ABG Base Excess 6.1 H ABG Hemoglobin ABG Oxyhemoglobin Oxyhemoglobin 66.1 L Carboxyhemoglobin Sodium Potassium Chloride Carbon Dioxide BUN Creatinine Glucose POC Glucose 125 H 203 H Lactic Acid Calcium Phosphorus Magnesium Ferritin AST Lactate Dehydrogenase C-Reactive Protein NT-Pro-B Natriuret Pep Albumin Triglycerides Urine WBC (Auto) Urine Creatinine Coronavirus (PCR) 03/02/21 03/02/21 03/02/21 12:13 13:00 17:15 WBC RBC Hgb Hct RDW Plt Count Seg Neuts % (Manual) Lymphocytes % (Manual) Monocytes % (Manual) Seg Neutrophils # Man Lymphocytes # (Manual) Monocytes # (Manual) D-Dimer ABG pH POC ABG pCO2 POC ABG pO2 ABG pO2 36.0 L* ABG HCO3 29.5 H ABG O2 Saturation 68.7 L ABG Base Excess 4.7 H ABG Hemoglobin ABG Oxyhemoglobin Oxyhemoglobin 66.8 L Carboxyhemoglobin Sodium Potassium Chloride Carbon Dioxide BUN Creatinine Glucose POC Glucose 130 H 126 H Lactic Acid Calcium Phosphorus Magnesium Ferritin AST Lactate Dehydrogenase C-Reactive Protein NT-Pro-B Natriuret Pep Albumin Triglycerides Urine WBC (Auto) Urine Creatinine Coronavirus (PCR) 03/02/21 03/03/21 03/03/21 21:45 08:02 10:05 WBC 19.2 H RBC Hgb Hct 44.9 H RDW Plt Count Seg Neuts % (Manual) 85.0 H Lymphocytes % (Manual) 7.0 L Monocytes % (Manual) Seg Neutrophils # Man 16.3 H Lymphocytes # (Manual) Monocytes # (Manual) 1.2 H D-Dimer ABG pH POC ABG pCO2 POC ABG pO2 ABG pO2 ABG HCO3 ABG O2 Saturation ABG Base Excess ABG Hemoglobin ABG Oxyhemoglobin Oxyhemoglobin Carboxyhemoglobin Sodium Potassium Chloride Carbon Dioxide BUN Creatinine Glucose POC Glucose 113 H 128 H Lactic Acid Calcium Phosphorus Magnesium Ferritin AST Lactate Dehydrogenase C-Reactive Protein NT-Pro-B Natriuret Pep Albumin Triglycerides Urine WBC (Auto) Urine Creatinine Coronavirus (PCR) 03/03/21 03/03/21 03/03/21 10:05 12:45 16:31 WBC RBC Hgb Hct RDW Plt Count Seg Neuts % (Manual) Lymphocytes % (Manual) Monocytes % (Manual) Seg Neutrophils # Man Lymphocytes # (Manual) Monocytes # (Manual) D-Dimer ABG pH POC ABG pCO2 POC ABG pO2 ABG pO2 47.7 L ABG HCO3 31.5 H ABG O2 Saturation 82.5 L ABG Base Excess 5.6 H ABG Hemoglobin ABG Oxyhemoglobin Oxyhemoglobin 80.4 L Carboxyhemoglobin Sodium Potassium Chloride 97.8 L Carbon Dioxide BUN 23 H Creatinine Glucose 141 H POC Glucose 126 H Lactic Acid Calcium Phosphorus Magnesium Ferritin AST Lactate Dehydrogenase C-Reactive Protein NT-Pro-B Natriuret Pep Albumin 3.2 L Triglycerides Urine WBC (Auto) Urine Creatinine Coronavirus (PCR) 03/03/21 03/04/21 03/04/21 20:52 07:24 11:04 WBC RBC Hgb Hct RDW Plt Count Seg Neuts % (Manual) Lymphocytes % (Manual) Monocytes % (Manual) Seg Neutrophils # Man Lymphocytes # (Manual) Monocytes # (Manual) D-Dimer ABG pH POC ABG pCO2 POC ABG pO2 ABG pO2 ABG HCO3 ABG O2 Saturation ABG Base Excess ABG Hemoglobin ABG Oxyhemoglobin Oxyhemoglobin Carboxyhemoglobin Sodium Potassium Chloride Carbon Dioxide BUN Creatinine Glucose POC Glucose 152 H 126 H 142 H Lactic Acid Calcium Phosphorus Magnesium Ferritin AST Lactate Dehydrogenase C-Reactive Protein NT-Pro-B Natriuret Pep Albumin Triglycerides Urine WBC (Auto) Urine Creatinine Coronavirus (PCR) 03/04/21 03/04/21 03/04/21 11:05 15:33 21:12 WBC RBC Hgb Hct RDW Plt Count Seg Neuts % (Manual) Lymphocytes % (Manual) Monocytes % (Manual) Seg Neutrophils # Man Lymphocytes # (Manual) Monocytes # (Manual) D-Dimer ABG pH POC ABG pCO2 POC ABG pO2 ABG pO2 ABG HCO3 ABG O2 Saturation ABG Base Excess ABG Hemoglobin ABG Oxyhemoglobin Oxyhemoglobin Carboxyhemoglobin Sodium Potassium Chloride Carbon Dioxide BUN 34 H Creatinine Glucose 143 H POC Glucose 114 H 180 H Lactic Acid Calcium Phosphorus Magnesium Ferritin AST Lactate Dehydrogenase C-Reactive Protein NT-Pro-B Natriuret Pep Albumin Triglycerides Urine WBC (Auto) Urine Creatinine Coronavirus (PCR) 03/04/21 03/05/21 03/05/21 21:30 07:51 10:10 WBC 17.8 H RBC Hgb 14.5 H Hct 45.8 H RDW 15.3 H Plt Count 446 H Seg Neuts % (Manual) 77.0 H Lymphocytes % (Manual) 12.0 L Monocytes % (Manual) Seg Neutrophils # Man 13.7 H Lymphocytes # (Manual) Monocytes # (Manual) 0.9 H D-Dimer ABG pH 7.473 H POC ABG pCO2 POC ABG pO2 ABG pO2 34.1 L* ABG HCO3 29.7 H ABG O2 Saturation 66.4 L ABG Base Excess 5.6 H ABG Hemoglobin ABG Oxyhemoglobin Oxyhemoglobin 64.9 L Carboxyhemoglobin Sodium Potassium Chloride Carbon Dioxide BUN Creatinine Glucose POC Glucose 144 H Lactic Acid Calcium Phosphorus Magnesium Ferritin AST Lactate Dehydrogenase C-Reactive Protein NT-Pro-B Natriuret Pep Albumin Triglycerides Urine WBC (Auto) Urine Creatinine Coronavirus (PCR) 03/05/21 03/05/21 03/05/21 10:10 11:41 12:23 WBC RBC Hgb Hct RDW Plt Count Seg Neuts % (Manual) Lymphocytes % (Manual) Monocytes % (Manual) Seg Neutrophils # Man Lymphocytes # (Manual) Monocytes # (Manual) D-Dimer ABG pH 7.226 L POC ABG pCO2 POC ABG pO2 ABG pO2 50.5 L ABG HCO3 32.8 H ABG O2 Saturation 73.6 L ABG Base Excess ABG Hemoglobin 18.2 H ABG Oxyhemoglobin Oxyhemoglobin 71.8 L Carboxyhemoglobin Sodium Potassium 3.5 L Chloride Carbon Dioxide BUN 51 H Creatinine Glucose 217 H POC Glucose 124 H Lactic Acid Calcium Phosphorus Magnesium Ferritin AST Lactate Dehydrogenase C-Reactive Protein NT-Pro-B Natriuret Pep Albumin 3.1 L Triglycerides Urine WBC (Auto) Urine Creatinine Coronavirus (PCR) 03/05/21 03/05/21 03/06/21 16:40 22:39 00:37 WBC RBC Hgb Hct RDW Plt Count Seg Neuts % (Manual) Lymphocytes % (Manual) Monocytes % (Manual) Seg Neutrophils # Man Lymphocytes # (Manual) Monocytes # (Manual) D-Dimer ABG pH POC ABG pCO2 POC ABG pO2 ABG pO2 ABG HCO3 ABG O2 Saturation ABG Base Excess ABG Hemoglobin ABG Oxyhemoglobin Oxyhemoglobin Carboxyhemoglobin Sodium Potassium Chloride Carbon Dioxide BUN Creatinine Glucose POC Glucose 138 H 139 H 126 H Lactic Acid Calcium Phosphorus Magnesium Ferritin AST Lactate Dehydrogenase C-Reactive Protein NT-Pro-B Natriuret Pep Albumin Triglycerides Urine WBC (Auto) Urine Creatinine Coronavirus (PCR) 03/06/21 03/06/21 03/06/21 04:25 06:13 06:13 WBC 18.4 H RBC Hgb Hct RDW 15.3 H Plt Count Seg Neuts % (Manual) Lymphocytes % (Manual) Monocytes % (Manual) Seg Neutrophils # Man Lymphocytes # (Manual) Monocytes # (Manual) D-Dimer ABG pH 7.028 L* POC ABG pCO2 POC ABG pO2 ABG pO2 ABG HCO3 33.8 H ABG O2 Saturation 92.5 L ABG Base Excess ABG Hemoglobin ABG Oxyhemoglobin Oxyhemoglobin 90.6 L Carboxyhemoglobin Sodium 149 H Potassium Chloride 107.2 H Carbon Dioxide BUN 62 H Creatinine 1.9 H D Glucose 140 H POC Glucose Lactic Acid Calcium 7.7 L D Phosphorus 10.70 H Magnesium 2.40 H Ferritin AST Lactate Dehydrogenase C-Reactive Protein NT-Pro-B Natriuret Pep Albumin Triglycerides Urine WBC (Auto) Urine Creatinine Coronavirus (PCR) 03/06/21 03/06/21 03/06/21 06:13 09:00 12:00 WBC RBC Hgb Hct RDW Plt Count Seg Neuts % (Manual) Lymphocytes % (Manual) Monocytes % (Manual) Seg Neutrophils # Man Lymphocytes # (Manual) Monocytes # (Manual) D-Dimer ABG pH POC ABG pCO2 POC ABG pO2 ABG pO2 ABG HCO3 ABG O2 Saturation ABG Base Excess ABG Hemoglobin ABG Oxyhemoglobin Oxyhemoglobin Carboxyhemoglobin Sodium Potassium Chloride Carbon Dioxide BUN Creatinine Glucose POC Glucose 155 H 122 H Lactic Acid Calcium Phosphorus Magnesium Ferritin AST Lactate Dehydrogenase C-Reactive Protein NT-Pro-B Natriuret Pep Albumin Triglycerides Urine WBC (Auto) Urine Creatinine 247.7 H Coronavirus (PCR) 03/06/21 03/06/21 03/06/21 17:16 22:23 Unknown WBC RBC Hgb Hct RDW Plt Count Seg Neuts % (Manual) Lymphocytes % (Manual) Monocytes % (Manual) Seg Neutrophils # Man Lymphocytes # (Manual) Monocytes # (Manual) D-Dimer ABG pH 7.253 L POC ABG pCO2 POC ABG pO2 ABG pO2 66.5 L ABG HCO3 31.3 H ABG O2 Saturation 91.8 L ABG Base Excess ABG Hemoglobin 16.8 H ABG Oxyhemoglobin Oxyhemoglobin 90.1 L Carboxyhemoglobin Sodium Potassium Chloride Carbon Dioxide BUN Creatinine Glucose POC Glucose 123 H 123 H Lactic Acid Calcium Phosphorus Magnesium Ferritin AST Lactate Dehydrogenase C-Reactive Protein NT-Pro-B Natriuret Pep Albumin Triglycerides Urine WBC (Auto) Urine Creatinine Coronavirus (PCR) 03/07/21 03/07/21 03/07/21 00:36 04:05 04:05 WBC 18.0 H RBC Hgb Hct RDW Plt Count Seg Neuts % (Manual) Lymphocytes % (Manual) Monocytes % (Manual) Seg Neutrophils # Man Lymphocytes # (Manual) Monocytes # (Manual) D-Dimer ABG pH POC ABG pCO2 POC ABG pO2 ABG pO2 ABG HCO3 ABG O2 Saturation ABG Base Excess ABG Hemoglobin ABG Oxyhemoglobin Oxyhemoglobin Carboxyhemoglobin Sodium Potassium Chloride Carbon Dioxide BUN 75 H Creatinine 1.5 H Glucose 113 H POC Glucose 121 H Lactic Acid Calcium Phosphorus Magnesium Ferritin AST Lactate Dehydrogenase C-Reactive Protein NT-Pro-B Natriuret Pep Albumin Triglycerides Urine WBC (Auto) Urine Creatinine Coronavirus (PCR) 03/07/21 03/07/21 03/07/21 04:05 04:49 05:38 WBC RBC Hgb Hct RDW Plt Count Seg Neuts % (Manual) Lymphocytes % (Manual) Monocytes % (Manual) Seg Neutrophils # Man Lymphocytes # (Manual) Monocytes # (Manual) D-Dimer ABG pH 7.280 L POC ABG pCO2 POC ABG pO2 ABG pO2 ABG HCO3 29.3 H ABG O2 Saturation ABG Base Excess ABG Hemoglobin ABG Oxyhemoglobin Oxyhemoglobin 94.4 L Carboxyhemoglobin Sodium Potassium Chloride Carbon Dioxide BUN Creatinine Glucose POC Glucose 112 H Lactic Acid Calcium Phosphorus Magnesium Ferritin AST Lactate Dehydrogenase C-Reactive Protein NT-Pro-B Natriuret Pep Albumin Triglycerides 171 H Urine WBC (Auto) Urine Creatinine Coronavirus (PCR) 03/07/21 03/07/21 03/08/21 12:13 18:13 04:30 WBC 12.5 H RBC Hgb Hct RDW Plt Count Seg Neuts % (Manual) Lymphocytes % (Manual) Monocytes % (Manual) Seg Neutrophils # Man Lymphocytes # (Manual) Monocytes # (Manual) D-Dimer ABG pH POC ABG pCO2 POC ABG pO2 ABG pO2 ABG HCO3 ABG O2 Saturation ABG Base Excess ABG Hemoglobin ABG Oxyhemoglobin Oxyhemoglobin Carboxyhemoglobin Sodium Potassium Chloride Carbon Dioxide BUN Creatinine Glucose POC Glucose 113 H 111 H Lactic Acid Calcium Phosphorus Magnesium Ferritin AST Lactate Dehydrogenase C-Reactive Protein NT-Pro-B Natriuret Pep Albumin Triglycerides Urine WBC (Auto) Urine Creatinine Coronavirus (PCR) 03/08/21 03/08/21 03/08/21 04:30 05:04 10:00 WBC RBC Hgb Hct RDW Plt Count Seg Neuts % (Manual) Lymphocytes % (Manual) Monocytes % (Manual) Seg Neutrophils # Man Lymphocytes # (Manual) Monocytes # (Manual) D-Dimer ABG pH POC ABG pCO2 POC ABG pO2 ABG pO2 73.8 L ABG HCO3 28.9 H ABG O2 Saturation ABG Base Excess ABG Hemoglobin 11.0 L ABG Oxyhemoglobin Oxyhemoglobin 93.4 L Carboxyhemoglobin Sodium Potassium Chloride Carbon Dioxide BUN 69 H Creatinine Glucose 107 H POC Glucose 111 H Lactic Acid Calcium Phosphorus Magnesium Ferritin AST Lactate Dehydrogenase C-Reactive Protein NT-Pro-B Natriuret Pep Albumin Triglycerides Urine WBC (Auto) Urine Creatinine Coronavirus (PCR) 03/08/21 03/08/21 03/09/21 17:09 21:35 04:00 WBC 11.4 H RBC 3.21 L Hgb 9.4 L Hct 29.6 L RDW Plt Count Seg Neuts % (Manual) Lymphocytes % (Manual) Monocytes % (Manual) Seg Neutrophils # Man Lymphocytes # (Manual) Monocytes # (Manual) D-Dimer ABG pH POC ABG pCO2 POC ABG pO2 ABG pO2 ABG HCO3 ABG O2 Saturation ABG Base Excess ABG Hemoglobin ABG Oxyhemoglobin Oxyhemoglobin Carboxyhemoglobin Sodium Potassium Chloride Carbon Dioxide BUN Creatinine Glucose POC Glucose 114 H 128 H Lactic Acid Calcium Phosphorus Magnesium Ferritin AST Lactate Dehydrogenase C-Reactive Protein NT-Pro-B Natriuret Pep Albumin Triglycerides Urine WBC (Auto) Urine Creatinine Coronavirus (PCR) 03/09/21 03/09/21 03/09/21 04:00 04:11 11:25 WBC RBC Hgb Hct RDW Plt Count Seg Neuts % (Manual) Lymphocytes % (Manual) Monocytes % (Manual) Seg Neutrophils # Man Lymphocytes # (Manual) Monocytes # (Manual) D-Dimer ABG pH 7.260 L POC ABG pCO2 POC ABG pO2 ABG pO2 ABG HCO3 30.5 H ABG O2 Saturation ABG Base Excess ABG Hemoglobin 9.4 L ABG Oxyhemoglobin Oxyhemoglobin 93.9 L Carboxyhemoglobin Sodium Potassium Chloride Carbon Dioxide BUN 74 H Creatinine 1.3 H Glucose 117 H POC Glucose 122 H Lactic Acid Calcium Phosphorus Magnesium Ferritin AST Lactate Dehydrogenase C-Reactive Protein NT-Pro-B Natriuret Pep Albumin Triglycerides Urine WBC (Auto) Urine Creatinine Coronavirus (PCR) 03/09/21 03/09/21 03/09/21 18:02 21:04 23:30 WBC RBC Hgb Hct RDW Plt Count Seg Neuts % (Manual) Lymphocytes % (Manual) Monocytes % (Manual) Seg Neutrophils # Man Lymphocytes # (Manual) Monocytes # (Manual) D-Dimer ABG pH POC ABG pCO2 POC ABG pO2 ABG pO2 ABG HCO3 ABG O2 Saturation ABG Base Excess ABG Hemoglobin ABG Oxyhemoglobin Oxyhemoglobin Carboxyhemoglobin Sodium Potassium Chloride Carbon Dioxide BUN Creatinine Glucose POC Glucose 106 H 116 H 109 H Lactic Acid Calcium Phosphorus Magnesium Ferritin AST Lactate Dehydrogenase C-Reactive Protein NT-Pro-B Natriuret Pep Albumin Triglycerides Urine WBC (Auto) Urine Creatinine Coronavirus (PCR) 03/10/21 03/10/21 03/10/21 02:43 04:00 04:00 WBC 11.6 H RBC 3.30 L Hgb 9.7 L Hct RDW 16.1 H Plt Count Seg Neuts % (Manual) Lymphocytes % (Manual) Monocytes % (Manual) Seg Neutrophils # Man Lymphocytes # (Manual) Monocytes # (Manual) D-Dimer ABG pH 7.268 L POC ABG pCO2 POC ABG pO2 ABG pO2 113.4 H ABG HCO3 31.9 H ABG O2 Saturation ABG Base Excess 3.6 H ABG Hemoglobin 9.9 L ABG Oxyhemoglobin Oxyhemoglobin Carboxyhemoglobin Sodium Potassium Chloride Carbon Dioxide BUN 74 H Creatinine Glucose 132 H POC Glucose Lactic Acid Calcium Phosphorus Magnesium Ferritin AST Lactate Dehydrogenase C-Reactive Protein NT-Pro-B Natriuret Pep Albumin Triglycerides Urine WBC (Auto) Urine Creatinine Coronavirus (PCR) 03/10/21 03/10/21 03/10/21 05:08 11:29 16:23 WBC RBC Hgb Hct RDW Plt Count Seg Neuts % (Manual) Lymphocytes % (Manual) Monocytes % (Manual) Seg Neutrophils # Man Lymphocytes # (Manual) Monocytes # (Manual) D-Dimer ABG pH POC ABG pCO2 POC ABG pO2 ABG pO2 ABG HCO3 ABG O2 Saturation ABG Base Excess ABG Hemoglobin ABG Oxyhemoglobin Oxyhemoglobin Carboxyhemoglobin Sodium Potassium Chloride Carbon Dioxide BUN Creatinine Glucose POC Glucose 117 H 128 H 116 H Lactic Acid Calcium Phosphorus Magnesium Ferritin AST Lactate Dehydrogenase C-Reactive Protein NT-Pro-B Natriuret Pep Albumin Triglycerides Urine WBC (Auto) Urine Creatinine Coronavirus (PCR) 01/23/22 01/23/22 01/24/22 21:15 23:39 03:40 WBC RBC Hgb Hct RDW Plt Count Seg Neuts % (Manual) Lymphocytes % (Manual) Monocytes % (Manual) Seg Neutrophils # Man Lymphocytes # (Manual) Monocytes # (Manual) D-Dimer ABG pH 7.247 L POC ABG pCO2 POC ABG pO2 ABG pO2 123.9 H ABG HCO3 34.4 H ABG O2 Saturation ABG Base Excess 5.4 H ABG Hemoglobin 9.7 L ABG Oxyhemoglobin Oxyhemoglobin Carboxyhemoglobin Sodium Potassium Chloride Carbon Dioxide BUN Creatinine Glucose POC Glucose 123 H 124 H Lactic Acid Calcium Phosphorus Magnesium Ferritin AST Lactate Dehydrogenase C-Reactive Protein NT-Pro-B Natriuret Pep Albumin Triglycerides Urine WBC (Auto) Urine Creatinine Coronavirus (PCR) 03/11/21 03/11/21 03/11/21 04:00 04:00 05:32 WBC 12.1 H RBC 3.30 L Hgb 9.5 L Hct RDW 15.5 H Plt Count Seg Neuts % (Manual) Lymphocytes % (Manual) Monocytes % (Manual) Seg Neutrophils # Man Lymphocytes # (Manual) Monocytes # (Manual) D-Dimer ABG pH POC ABG pCO2 POC ABG pO2 ABG pO2 ABG HCO3 ABG O2 Saturation ABG Base Excess ABG Hemoglobin ABG Oxyhemoglobin Oxyhemoglobin Carboxyhemoglobin Sodium 148 H Potassium 5.7 H Chloride 107.7 H Carbon Dioxide BUN 63 H Creatinine Glucose 135 H POC Glucose 147 H Lactic Acid Calcium Phosphorus 4.70 H Magnesium 3.20 H Ferritin AST Lactate Dehydrogenase C-Reactive Protein NT-Pro-B Natriuret Pep Albumin Triglycerides Urine WBC (Auto) Urine Creatinine Coronavirus (PCR) 03/11/21 03/11/21 03/11/21 11:35 17:50 21:29 WBC RBC Hgb Hct RDW Plt Count Seg Neuts % (Manual) Lymphocytes % (Manual) Monocytes % (Manual) Seg Neutrophils # Man Lymphocytes # (Manual) Monocytes # (Manual) D-Dimer ABG pH POC ABG pCO2 POC ABG pO2 ABG pO2 ABG HCO3 ABG O2 Saturation ABG Base Excess ABG Hemoglobin ABG Oxyhemoglobin Oxyhemoglobin Carboxyhemoglobin Sodium Potassium Chloride Carbon Dioxide BUN Creatinine Glucose POC Glucose 136 H 109 H 114 H Lactic Acid Calcium Phosphorus Magnesium Ferritin AST Lactate Dehydrogenase C-Reactive Protein NT-Pro-B Natriuret Pep Albumin Triglycerides Urine WBC (Auto) Urine Creatinine Coronavirus (PCR) 03/12/21 03/12/21 03/12/21 00:43 04:06 04:30 WBC 11.2 H RBC 3.16 L Hgb 9.1 L Hct 29.5 L RDW 16.1 H Plt Count Seg Neuts % (Manual) Lymphocytes % (Manual) Monocytes % (Manual) Seg Neutrophils # Man Lymphocytes # (Manual) Monocytes # (Manual) D-Dimer ABG pH 7.261 L POC ABG pCO2 79.6 H POC ABG pO2 ABG pO2 ABG HCO3 ABG O2 Saturation ABG Base Excess ABG Hemoglobin 9.64 L ABG Oxyhemoglobin Oxyhemoglobin Carboxyhemoglobin Sodium Potassium Chloride Carbon Dioxide BUN Creatinine Glucose POC Glucose 112 H Lactic Acid Calcium Phosphorus Magnesium Ferritin AST Lactate Dehydrogenase C-Reactive Protein NT-Pro-B Natriuret Pep Albumin Triglycerides Urine WBC (Auto) Urine Creatinine Coronavirus (PCR) 03/12/21 03/12/21 03/12/21 04:30 05:24 09:16 WBC RBC Hgb Hct RDW Plt Count Seg Neuts % (Manual) Lymphocytes % (Manual) Monocytes % (Manual) Seg Neutrophils # Man Lymphocytes # (Manual) Monocytes # (Manual) D-Dimer ABG pH POC ABG pCO2 POC ABG pO2 ABG pO2 ABG HCO3 ABG O2 Saturation ABG Base Excess ABG Hemoglobin ABG Oxyhemoglobin Oxyhemoglobin Carboxyhemoglobin Sodium 147 H Potassium 6.2 H* Chloride Carbon Dioxide 33 H BUN 61 H Creatinine Glucose 132 H POC Glucose 122 H 117 H Lactic Acid Calcium Phosphorus Magnesium Ferritin AST Lactate Dehydrogenase C-Reactive Protein NT-Pro-B Natriuret Pep Albumin Triglycerides Urine WBC (Auto) Urine Creatinine Coronavirus (PCR) 03/12/21 03/12/21 03/12/21 10:12 12:51 18:29 WBC RBC Hgb Hct RDW Plt Count Seg Neuts % (Manual) Lymphocytes % (Manual) Monocytes % (Manual) Seg Neutrophils # Man Lymphocytes # (Manual) Monocytes # (Manual) D-Dimer ABG pH POC ABG pCO2 POC ABG pO2 ABG pO2 ABG HCO3 ABG O2 Saturation ABG Base Excess ABG Hemoglobin ABG Oxyhemoglobin Oxyhemoglobin Carboxyhemoglobin Sodium Potassium Chloride Carbon Dioxide BUN Creatinine Glucose POC Glucose 134 H 117 H 144 H Lactic Acid Calcium Phosphorus Magnesium Ferritin AST Lactate Dehydrogenase C-Reactive Protein NT-Pro-B Natriuret Pep Albumin Triglycerides Urine WBC (Auto) Urine Creatinine Coronavirus (PCR) 03/12/21 03/13/21 03/13/21 21:14 00:01 05:38 WBC RBC Hgb Hct RDW Plt Count Seg Neuts % (Manual) Lymphocytes % (Manual) Monocytes % (Manual) Seg Neutrophils # Man Lymphocytes # (Manual) Monocytes # (Manual) D-Dimer ABG pH 7.238 L POC ABG pCO2 POC ABG pO2 ABG pO2 94.9 H ABG HCO3 34.9 H ABG O2 Saturation ABG Base Excess 5.7 H ABG Hemoglobin 10.0 L ABG Oxyhemoglobin Oxyhemoglobin 94.4 L Carboxyhemoglobin Sodium Potassium Chloride Carbon Dioxide BUN Creatinine Glucose POC Glucose 144 H 131 H Lactic Acid Calcium Phosphorus Magnesium Ferritin AST Lactate Dehydrogenase C-Reactive Protein NT-Pro-B Natriuret Pep Albumin Triglycerides Urine WBC (Auto) Urine Creatinine Coronavirus (PCR) 03/13/21 03/13/21 03/13/21 06:14 07:00 07:00 WBC 11.3 H RBC 3.14 L Hgb 8.8 L Hct 29.3 L RDW 15.8 H Plt Count Seg Neuts % (Manual) Lymphocytes % (Manual) Monocytes % (Manual) Seg Neutrophils # Man Lymphocytes # (Manual) Monocytes # (Manual) D-Dimer ABG pH POC ABG pCO2 POC ABG pO2 ABG pO2 ABG HCO3 ABG O2 Saturation ABG Base Excess ABG Hemoglobin ABG Oxyhemoglobin Oxyhemoglobin Carboxyhemoglobin Sodium 150 H Potassium Chloride 109.3 H Carbon Dioxide BUN 66 H Creatinine Glucose 115 H POC Glucose 107 H Lactic Acid Calcium Phosphorus 5.80 H Magnesium 3.00 H Ferritin AST Lactate Dehydrogenase C-Reactive Protein NT-Pro-B Natriuret Pep Albumin Triglycerides Urine WBC (Auto) Urine Creatinine Coronavirus (PCR) 03/13/21 03/13/21 03/14/21 11:41 23:38 03:44 WBC RBC Hgb Hct RDW Plt Count Seg Neuts % (Manual) Lymphocytes % (Manual) Monocytes % (Manual) Seg Neutrophils # Man Lymphocytes # (Manual) Monocytes # (Manual) D-Dimer ABG pH 7.306 L POC ABG pCO2 POC ABG pO2 ABG pO2 75.4 L ABG HCO3 36.7 H ABG O2 Saturation ABG Base Excess 8.9 H ABG Hemoglobin 8.2 L ABG Oxyhemoglobin Oxyhemoglobin 93.6 L Carboxyhemoglobin Sodium Potassium Chloride Carbon Dioxide BUN Creatinine Glucose POC Glucose 116 H 119 H Lactic Acid Calcium Phosphorus Magnesium Ferritin AST Lactate Dehydrogenase C-Reactive Protein NT-Pro-B Natriuret Pep Albumin Triglycerides Urine WBC (Auto) Urine Creatinine Coronavirus (PCR) 03/14/21 03/14/21 03/14/21 05:29 07:17 07:17 WBC 12.7 H RBC 3.05 L Hgb 8.8 L Hct 28.5 L RDW 15.3 H Plt Count Seg Neuts % (Manual) Lymphocytes % (Manual) Monocytes % (Manual) Seg Neutrophils # Man Lymphocytes # (Manual) Monocytes # (Manual) D-Dimer ABG pH POC ABG pCO2 POC ABG pO2 ABG pO2 ABG HCO3 ABG O2 Saturation ABG Base Excess ABG Hemoglobin ABG Oxyhemoglobin Oxyhemoglobin Carboxyhemoglobin Sodium Potassium Chloride Carbon Dioxide 33 H BUN 61 H Creatinine Glucose 121 H POC Glucose 122 H Lactic Acid Calcium Phosphorus 4.70 H Magnesium 2.80 H Ferritin AST Lactate Dehydrogenase C-Reactive Protein NT-Pro-B Natriuret Pep Albumin Triglycerides Urine WBC (Auto) Urine Creatinine Coronavirus (PCR) 03/14/21 03/14/21 03/15/21 10:59 18:09 00:05 WBC RBC Hgb Hct RDW Plt Count Seg Neuts % (Manual) Lymphocytes % (Manual) Monocytes % (Manual) Seg Neutrophils # Man Lymphocytes # (Manual) Monocytes # (Manual) D-Dimer ABG pH POC ABG pCO2 POC ABG pO2 ABG pO2 ABG HCO3 ABG O2 Saturation ABG Base Excess ABG Hemoglobin ABG Oxyhemoglobin Oxyhemoglobin Carboxyhemoglobin Sodium Potassium Chloride Carbon Dioxide BUN Creatinine Glucose POC Glucose 114 H 118 H 111 H Lactic Acid Calcium Phosphorus Magnesium Ferritin AST Lactate Dehydrogenase C-Reactive Protein NT-Pro-B Natriuret Pep Albumin Triglycerides Urine WBC (Auto) Urine Creatinine Coronavirus (PCR) 03/15/21 03/15/21 03/15/21 04:00 04:30 04:30 WBC 13.5 H RBC 2.99 L Hgb 8.4 L Hct 27.9 L RDW 15.6 H Plt Count Seg Neuts % (Manual) Lymphocytes % (Manual) Monocytes % (Manual) Seg Neutrophils # Man Lymphocytes # (Manual) Monocytes # (Manual) D-Dimer ABG pH 7.237 L POC ABG pCO2 80.6 H POC ABG pO2 71.8 L ABG pO2 ABG HCO3 ABG O2 Saturation ABG Base Excess ABG Hemoglobin ABG Oxyhemoglobin 91.7 L Oxyhemoglobin Carboxyhemoglobin 1.6 H Sodium Potassium Chloride Carbon Dioxide 32 H BUN 68 H Creatinine Glucose 128 H POC Glucose Lactic Acid Calcium Phosphorus Magnesium Ferritin AST Lactate Dehydrogenase C-Reactive Protein NT-Pro-B Natriuret Pep Albumin Triglycerides Urine WBC (Auto) Urine Creatinine Coronavirus (PCR) 03/15/21 03/15/21 05:18 11:04 WBC RBC Hgb Hct RDW Plt Count Seg Neuts % (Manual) Lymphocytes % (Manual) Monocytes % (Manual) Seg Neutrophils # Man Lymphocytes # (Manual) Monocytes # (Manual) D-Dimer ABG pH POC ABG pCO2 POC ABG pO2 ABG pO2 ABG HCO3 ABG O2 Saturation ABG Base Excess ABG Hemoglobin ABG Oxyhemoglobin Oxyhemoglobin Carboxyhemoglobin Sodium Potassium Chloride Carbon Dioxide BUN Creatinine Glucose POC Glucose 111 H 120 H Lactic Acid Calcium Phosphorus Magnesium Ferritin AST Lactate Dehydrogenase C-Reactive Protein NT-Pro-B Natriuret Pep Albumin Triglycerides Urine WBC (Auto) Urine Creatinine Coronavirus (PCR)
[2021-03-15] MEDS: MIDAZOLAM 100 MG in SODIUM CHLORIDE 0.9% 80 ML IV SCH (12:10)
--- NOTE | 2021-03-15 17:40 | Progress Note ---
Assessment and Plan Assessment and plan: This is a 61-year-old female with HTN, DM, DVT/PE on Eliquis admitted with acute hypoxic respiratory failure secondary to COVID-19 pneumonia Acute hypoxic respiratory failure secondary to Covid pneumonia, ARDS -S/p BiPAP and OptiFlow -Intubated on 03/05 with 7.50 ETT -A.m. vent settings: CMV tidal volume 350, rate 30, PEEP 20, 80% FiO2 -See RT notes for titration -ccm decrease FiO2 to 75 -CCM consulted, appreciate recommendations -VAP bundle -SPO2 monitoring -AM CXR and ABG noted -Sedated on Versed and propofol -RASS goal of -2 to -3 -Avoid delirium -Maintain sleep-wake cycle -SAT/SBT when appropriate Sepsis/COVID-19 pneumonia, leukocytosis, multifocal pneumonia -Infectious disease consulted, appreciate recommendations -> signed off 02/28 -Vasopressor support with Levophed -MAP goal greater than 65 -S/p steroids for 10 days -S/p remdesivir for 10 days -S/p empiric antibiotics for 5 days -S/p Actemra -Isolation/droplet precautions -Vitamin C/vitamin D/zinc -Trend COVID-19 from 2 markers -Anticoagulation per protocol Acute kidney injury secondary to acute tubular necrosis -BUN/creatinine increased to 1.9/62 -S/p diuresis with Lasix x4 (120 mg total for visit) -S/p 4 L LR -Avoid nephrotoxic medications -Renally dose medications -Trend BMP Acute right lower leg DVT -Vascular surgery consulted, appreciate recommendations -D-dimer greater than 10,000 -CTA chest showed several small emboli in the segmental branches of the right lung -Vascular surgery recommended anticoagulation and supportive therapy -bilateral lower extremity Doppler ultrasound showed a chronic appearing DVT in the right posterior tibial vein -Therapeutic Lovenox -Trend CBC -Transfuse to hemoglobin less than 7 -Monitor for signs of bleeding h/o DM -SSI -Lantus, titrate as needed -Avoid hypoglycemia h/o HTN -Hold home antihypertensive regimen at this time -Blood pressure monitor per protocol DVT/GI prophylaxis -Lovenox subcu -PPI The high probability of a clinically significant, sudden or life threatening deterioration of the [CV/Resp] system(s) required my full and direct attention, intervention and personal management. The aggregate critical care time was [60] minutes. This time is in addition to time spent performing reported procedures but includes the following: [x] Data Review and interpretation [x] Patient assessment and monitoring of vital signs [x] Documentation [x] Medication orders and management Disposition Plan: icu Total Time Spent with Patient (Minutes): 60 History Interval history: This is a 61-year-old female with HTN, DM, left lower extremity DVT and pulmonary medicine on Eliquis who presented to emergency department on 02/17 with complaints of shortness of breath and generalized weakness for the past 5 days prior to arrival and states that she is tested positive for COVID-19 on February 10, 2021 via EMS. EMS stated that the patient's initial oxygen saturation was 75% on room air improved to 86% on nonrebreather. Work-up in the emergency department revealed leukocytosis and elevated BUN. Work-up in the ED included a CXR which showed severe diffuse bilateral patchy opacities. Patient was admitted to the hospitalist service with consults to ID, pulmonology, vascular surgery as a COVID-19 PUI, SARS, acute hypoxic respiratory failure and multifocal pneumonia. Hospital course to date: 02/19/2020: Patient on 50% Ventimask, Covid positive, Continue steroids ,May DC antibiotics, Respiratory assessment and treatment 02/19: Patient still hypoxic, encourage prone positioning, Pulmonary and ID consult. Will obtain CTA chest to evaluate for PE. Continue steroid therapy and oxygen therapy wean as tolerated. Continuous pulse oximeter. Plan discussed with the patient. 02/20: Patient seen and examined, remains on NRBM. awaiting CT CHEST WITH ANGIO Ordered yesterday. Encourage proning the patient says she was not proned yesterday discussed with nursing staff. Continue steroid therapy and remdesivir. Patient was seen by ID and as documented by ID"She is a candidate for Actemra b ased on CRp and O2 requirements. unfortunately we have not been getting procalcitonin results. -ordered Actemra once (afebrile, white count only mildly elevated in the setting of steroids)" Discussed plan of care with the nurse. Also called to updated the patients sister listed as NOK but got voice mail 02/21: Continue steroids, remdesivir, patient received 1 dose of Actemra but unable to get the second dose due to availability. CTA showed dense consolidation but no effusion and no pulmonary embolism patient does have a lower extremity DVT. Eliquis continues at full dose of 5 mg twice daily we will continue to monitor closely. Prognosis is guarded counseling for compliance for 15 minutes. 02/22: Patient clinically not improving much of switch the patient to Lovenox. Prognosis remains guarded. Continue anticoagulation due to DVT still suspicious of pulmonary embolism as a result we will obtain echocardiogram and vascular consult per pulmonary request which I agree with. I will also transfer the patient to stepdown unit for closer monitoring. 02/23: Vascular input noted agree the patient has subsegmental bibasilar pulmonary embolism but not enough to warrant intervention. Does not feel that this is contributing majority to her hypoxia. Nevertheless we will switch patient from Eliquis to Lovenox. Continue current management with remdesivir 02/24: Patient seen and examined, remains on anticoagulation, continue remedsivir and steroids. prone as tolerated, will give additional lasix today. Guarded prognosis. 02/25 A&O x 3, C/O mild cough with mucoid expectorant. Denies CP or shortness of breath. Remains on HFNC. pulmonary note and lab results reviewed 02/26: AOX3, proning on encounter. Encouraged continued movement while in bed and with assistance of care staff. Remains on HFNC. Last day of decadron today. 02/27: Patient encouraged to continue proning and remain active. Discussed with PT to come work with patient to mobilize. Will d/w CM for chcf placement solution. 02/28: Patient stated she would like to be a full code. Working with CM for LTAC placement. 03/01: Awaiting LTAC placement. Remains full code. Spoke with daughter Meghna who was updated on patient's case. 03/02: Sats in low 80s on hi lfow. Blood gas shows pao2 = 35.9. will start bipap, d/w IMCU RN who will notify RT. repeat abg in 1 hr. Poor prognosis. 03/03; Sats in low 90's on bipap. Repeat abg this AM demosntrates marginal improvement in PaO2. PCCM d/w daughter, patient and her daughter would like intubation should she continue to deteriorate. Prognosis remains poor. 03/04: de-escalated to HFNC 40/100 + venti. Will continue with bipap prn. Continue steroids. Dispo is still LTAC, placement is pending. 03/05: Resipratory distress this morning. Sats 69-70%. subsequently intubated. Now icu level of care. Family wants continue aggressive measures. Will follow [facility] recs. 03/06: Patient with ISH this am probably due to hypotension vs diuretic use, fluid bolus challenge this am. Urine lytes ordered. FWF added for hypernatremia. 03/07: Patient responded to fluid challenge, renal function improved, UOP better. Weaning down pressors, additional IVF bolus today, plan to wean down on pressors requirement. ABG improved today, wean down Fio2 as tolerated. Okay to start trickle feeds. 03/08: Renal function is back to baseline. Going down on pressor requirements, only on low dose Vaso and levophed today. Continue to wean pressors as tolerated. D/W CCm continue to wean Fio2 as tolerated, keep patient a RASS goal of -4 for now. Advance TF as tolerated per order. 03/09: Remains on the vent. Low SPO2 overnight, vent setting was increased. Off pressors this am. IV lasix per [facility], repeat CXR in the am 03/10: Remains intubated and sedated, RASS -4. Back on pressors this am for low BP. This am CXR and ABG reviewed, oxygenation improved. Continue to wean pressors as tolerated. Vent adjustement per [facility] 03/11: Kayexalate given hypernatremia, remains on Levophed, increasing free water flush. 03/12: Hyperkalemia medically treated, repeat potassium is 4. BUN continues to rise. Continue to trend. Patient has been titrated off of Levophed. 03/13: Potassium is trending up, will continue to monitor. Wean Levophed as tolerated. Hypernatremia worsened, free water flushes increased. Vent changes per [facility]. 03/14: [facility] updated daughter who stated she will discuss with family and update decisions regarding goals of care. FiO2 weaned. Continue to monitor. Levophed restarted. 03/15: Continue supportive measures and monitoring renal function. Patient remains on low-dose Levophed. FiO2 decreased slightly but SPO2 has been in the upper 80s. Hospitalist Physical - Constitutional Vitals: Temp Pulse Resp BP Pulse Ox 99.5 F 100 H 31 H 100/55 87 03/15/21 12:00 03/15/21 17:00 03/15/21 17:00 03/15/21 17:00 03/15/21 17:00 General appearance: Present: no acute distress, well-nourished, other (Intubated and Sedated) - EENT Eyes: Present: PERRL, EOM intact - Neck Neck: Present: normal ROM - Respiratory Respiratory effort: normal Respiratory: bilateral: diminished - Cardiovascular Rhythm: regular Heart Sounds: Present: S1 & S2. Absent: systolic murmur, diastolic murmur - Extremities Extremities: no ischemia, pulses intact, pulses symmetrical, No edema, normal temperature, normal color Peripheral Pulses: within normal limits - Abdominal General gastrointestinal: soft, non-tender, non-distended, normal bowel sounds - Integumentary Integumentary: Present: warm, dry - Psychiatric Psychiatric: other - Neurologic Neurologic: other (intact cough/gag) - Allied Health Allied health notes reviewed: nursing, RT, social work Results - Labs CBC & Chem 7: 03/15/21 04:30 03/15/21 04:30 Labs: Laboratory Last Values WBC 13.5 K/mm3 (4.5-11.0) H 03/15/21 04:30 RBC 2.99 M/mm3 (3.65-5.03) L 03/15/21 04:30 Hgb 8.4 gm/dl (10.1-14.3) L 03/15/21 04:30 Hct 27.9 % (30.3-42.9) L 03/15/21 04:30 MCV 93 fl (79-97) 03/15/21 04:30 MCH 29 pg (28-32) 03/15/21 04:30 MCHC 31 % (30-34) 03/15/21 04:30 RDW 15.6 % (13.2-15.2) H 03/15/21 04:30 Plt Count 297 K/mm3 (140-440) 03/15/21 04:30 Add Manual Diff Complete 03/05/21 10:10 Total Counted 100 03/05/21 10:10 Seg Neuts % (Manual) 77.0 % (40.0-70.0) H 03/05/21 10:10 Band Neutrophils % 3.0 % 03/05/21 10:10 Lymphocytes % (Manual) 12.0 % (13.4-35.0) L 03/05/21 10:10 Reactive Lymphs % (Man) 2.0 % 03/05/21 10:10 Monocytes % (Manual) 5.0 % (0.0-7.3) 03/05/21 10:10 Eosinophils % (Manual) 1.0 % (0.0-4.3) 03/05/21 10:10 Basophils % (Manual) 0 % (0.0-1.8) 03/05/21 10:10 Metamyelocytes % 0 % 03/05/21 10:10 Myelocytes % 0 % 03/05/21 10:10 Promyelocytes % 0 % 03/05/21 10:10 Blast Cells % 0 % 03/05/21 10:10 Nucleated RBC % Not Reportable 03/05/21 10:10 Seg Neutrophils # Man 13.7 K/mm3 (1.8-7.7) H 03/05/21 10:10 Band Neutrophils # 0.5 K/mm3 03/05/21 10:10 Lymphocytes # (Manual) 2.1 K/mm3 (1.2-5.4) 03/05/21 10:10 Abs React Lymphs (Man) 0.4 K/mm3 03/05/21 10:10 Monocytes # (Manual) 0.9 K/mm3 (0.0-0.8) H 03/05/21 10:10 Eosinophils # (Manual) 0.2 K/mm3 (0.0-0.4) 03/05/21 10:10 Basophils # (Manual) 0.0 K/mm3 (0.0-0.1) 03/05/21 10:10 Metamyelocytes # 0.0 K/mm3 03/05/21 10:10 Myelocytes # 0.0 K/mm3 03/05/21 10:10 Promyelocytes # 0.0 K/mm3 03/05/21 10:10 Blast Cells # 0.0 K/mm3 03/05/21 10:10 WBC Morphology Not Reportable 03/05/21 10:10 Hypersegmented Neuts Not Reportable 03/05/21 10:10 Hyposegmented Neuts Not Reportable 03/05/21 10:10 Hypogranular Neuts Not Reportable 03/05/21 10:10 Smudge Cells Not Reportable 03/05/21 10:10 Toxic Granulation Not Reportable 03/05/21 10:10 Toxic Vacuolation Not Reportable 03/05/21 10:10 Dohle Bodies Not Reportable 03/05/21 10:10 Pelger-Huet Anomaly Not Reportable 03/05/21 10:10 Cindy Rods Not Reportable 03/05/21 10:10 Platelet Estimate Consistent w auto 03/05/21 10:10 Clumped Platelets Not Reportable 03/05/21 10:10 Plt Clumps, EDTA Not Reportable 03/05/21 10:10 Large Platelets 1+ 03/05/21 10:10 Giant Platelets Not Reportable 03/05/21 10:10 Platelet Satelliting Not Reportable 03/05/21 10:10 Plt Morphology Comment Not Reportable 03/05/21 10:10 RBC Morphology Not Reportable 03/05/21 10:10 Dimorphic RBCs Not Reportable 03/05/21 10:10 Polychromasia Few 03/05/21 10:10 Hypochromasia Not Reportable 03/05/21 10:10 Poikilocytosis Not Reportable 03/05/21 10:10 Anisocytosis 1+ 03/05/21 10:10 Microcytosis Not Reportable 03/05/21 10:10 Macrocytosis Not Reportable 03/05/21 10:10 Spherocytes Not Reportable 03/05/21 10:10 Pappenheimer Bodies Not Reportable 03/05/21 10:10 Sickle Cells Not Reportable 03/05/21 10:10 Target Cells Not Reportable 03/05/21 10:10 Tear Drop Cells Not Reportable 03/05/21 10:10 Ovalocytes Not Reportable 03/05/21 10:10 Helmet Cells Not Reportable 03/05/21 10:10 [place] Bodies Not Reportable 03/05/21 10:10 [place] Rings Not Reportable 03/05/21 10:10 [place] Cells Not Reportable 03/05/21 10:10 Bite Cells Not Reportable 03/05/21 10:10 Crenated Cell Not Reportable 03/05/21 10:10 Elliptocytes Not Reportable 03/05/21 10:10 Acanthocytes (Spur) Not Reportable 03/05/21 10:10 Rouleaux Not Reportable 03/05/21 10:10 Hemoglobin C Crystals Not Reportable 03/05/21 10:10 Schistocytes Not Reportable 03/05/21 10:10 Malaria parasites Not Reportable 03/05/21 10:10 [place] Bodies Not Reportable 03/05/21 10:10 Hem Pathologist Commnt No 03/05/21 10:10 PT 13.9 Sec. (12.2-14.9) 02/17/21 14:34 INR 0.96 (0.87-1.13) 02/17/21 14:34 APTT 26.4 Sec. (24.2-36.6) 02/17/21 14:34 D-Dimer 3469.99 ng/mlDDU (0-234) H 03/01/21 05:12 ABG pH 7.237 (7.320-7.450) L 03/15/21 04:00 POC ABG pCO2 80.6 mmHg (32.0-48.0) H 03/15/21 04:00 ABG pCO2 75.2 mm Hg 03/14/21 03:44 POC ABG pO2 71.8 mmHg (83-108) L 03/15/21 04:00 ABG pO2 75.4 mm Hg (80.0-90.0) L 03/14/21 03:44 POC ABG HCO3 33.5 03/15/21 04:00 ABG HCO3 36.7 mmol/L (20.0-26.0) H 03/14/21 03:44 ABG O2 Saturation 93.3 (0-100) 03/15/21 04:00 ABG O2 Content 10.9 (0.0-44) 03/14/21 03:44 POC ABG Base Excess 3.3 03/15/21 04:00 ABG Base Excess 8.9 mmol/L (-2.0-3.0) H 03/14/21 03:44 ABG Hemoglobin 14.4 (12.0-17.5) 03/15/21 04:00 ABG Oxyhemoglobin 91.7 (94-98) L 03/15/21 04:00 ABG Carboxyhemoglobin 1.7 % (0.0-5.0) 03/14/21 03:44 ABG Methemoglobin 0.1 (0.0-1.5) 03/15/21 04:00 Oxyhemoglobin 93.6 % (95.0-99.0) L 03/14/21 03:44 Carboxyhemoglobin 1.6 (0.5-1.5) H 03/15/21 04:00 FiO2 80 % 03/14/21 03:44 FiO2 % 80.0 03/15/21 04:00 Sodium 143 mmol/L (137-145) 03/15/21 04:30 Potassium 4.5 mmol/L (3.6-5.0) 03/15/21 04:30 Chloride 103.2 mmol/L (98-107) 03/15/21 04:30 Carbon Dioxide 32 mmol/L (22-30) H 03/15/21 04:30 Anion Gap 12 mmol/L 03/15/21 04:30 BUN 68 mg/dL (7-17) H 03/15/21 04:30 Creatinine 0.9 mg/dL (0.6-1.2) 03/15/21 04:30 Estimated GFR > 60 ml/min 03/15/21 04:30 BUN/Creatinine Ratio 76 % 03/15/21 04:30 Glucose 128 mg/dL (65-100) H 03/15/21 04:30 POC Glucose 120 mg/dL (70-105) H 03/15/21 11:04 Lactic Acid 1.60 mmol/L (0.7-2.0) 02/17/21 18:39 Calcium 9.6 mg/dL (8.4-10.2) 03/15/21 04:30 Phosphorus 4.70 mg/dL (2.5-4.5) H 03/14/21 07:17 Magnesium 2.80 mg/dL (1.7-2.3) H 03/14/21 07:17 Ferritin 1526.0 ng/mL (10.0-200.0) H 03/01/21 05:12 Total Bilirubin 0.30 mg/dL (0.1-1.2) 03/05/21 10:10 Direct Bilirubin < 0.2 mg/dL (0-0.2) 02/17/21 14:34 Indirect Bilirubin 0.1 mg/dL 02/17/21 14:34 AST 38 units/L (5-40) 03/05/21 10:10 ALT 44 units/L (7-56) 03/05/21 10:10 Alkaline Phosphatase 78 units/L (35-129) 03/05/21 10:10 Lactate Dehydrogenase 385 units/L (91-180) H 03/01/21 05:12 C-Reactive Protein 11.20 mg/dL (0.00-1.30) H 03/01/21 05:12 NT-Pro-B Natriuret Pep 86.77 pg/mL (0-900) 02/20/21 16:34 Total Protein 7.7 g/dL (6.3-8.2) 03/05/21 10:10 Albumin 3.1 g/dL (3.9-5) L 03/05/21 10:10 Albumin/Globulin Ratio 0.7 % 03/05/21 10:10 Triglycerides 130 mg/dL (2-149) 03/12/21 04:30 Procalcitonin 0.11 ng/mL (<0.15) 02/19/21 07:32 Urine Color Cassandra (Yellow) 02/18/21 Unknown Urine Turbidity Cloudy (Clear) 02/18/21 Unknown Urine pH 5.0 (5.0-7.0) 02/18/21 Unknown Ur Specific [place] 1.027 (1.003-1.030) 02/18/21 Unknown Urine Protein 100 mg/dl mg/dL (Negative) 02/18/21 Unknown Urine Glucose (UA) Neg mg/dL (Negative) 02/18/21 Unknown Urine Ketones Neg mg/dL (Negative) 02/18/21 Unknown Urine Blood Neg (Negative) 02/18/21 Unknown Urine Nitrite Neg (Negative) 02/18/21 Unknown Urine Bilirubin Neg (Negative) 02/18/21 Unknown Urine Urobilinogen < 2.0 mg/dL (<2.0) 02/18/21 Unknown Ur Leukocyte Esterase Neg (Negative) 02/18/21 Unknown Urine WBC (Auto) 7.0 /HPF (0.0-6.0) H 02/18/21 Unknown Urine RBC (Auto) 4.0 /HPF (0.0-6.0) 02/18/21 Unknown U Epithel Cells (Auto) 3.0 /HPF (0-13.0) 02/18/21 Unknown Urine Mucus 2+ /HPF 02/18/21 Unknown Urine Creatinine 247.7 mg/dL (0.1-20.0) H 03/06/21 09:00 Urine Sodium 25 mmol/L 03/06/21 09:00 Coronavirus (PCR) Positive (Negative) A 02/18/21 Unknown Head/IV: Voiding Method Indwelling Catheter Active Medications - Current Medications Current Medications: Generic Name Dose Route Start Last Admin Trade Name Freq PRN Reason Stop Dose Admin Acetaminophen 650 mg 02/17/21 23:58 03/11/21 04:27 Acetaminophen 325 Mg Tab PO 650 mg Q4H PRN Administration Pain MILD(1-3)/Fever >100.5/BROWN Dextrose 0 ml 03/11/21 10:46 Dextrose 10% *Hypoglycemia IV PRN PRN Hypoglycemia Enoxaparin Sodium 90 mg 03/08/21 22:00 03/15/21 09:59 Enoxaparin 100 Mg/1 Ml Inj 1 mg/kg (90 mg) 90 mg SUB-Q Administration Q12HR [facility] Protocol Famotidine 20 mg 03/11/21 22:00 03/15/21 09:59 Famotidine 20 Mg Tab FEEDTUBE 20 mg BID DEISY Administration Fentanyl 50 mcg 03/05/21 09:38 03/12/21 17:58 Fentanyl 100 Mcg/2 Ml Inj IV 50 mcg Q10MIN PRN Administration ANALGESIA Gabapentin 400 mg 02/19/21 04:00 03/15/21 09:59 Gabapentin 400 Mg Cap PO 400 mg BID [facility] Administration Hydrophilic Ointment 1 applic 03/05/21 09:39 Lip Therapy Vaseline TP Q2HR PRN Dry Lips Propofol 1,000 mg in 100 mls @ 2.585 mls/hr 03/05/21 10:00 03/15/21 14:40 Diprivan 10 Mg/Ml IV 20 mcg/kg/min TITR DEISY 10.342 mls/hr Administration Protocol 5 MCG/KG/MIN Fentanyl Citrate 2,000 mcg in 100 mls @ 4.309 mls/hr 03/05/21 10:00 03/15/21 12:11 Fentanyl Drip Premix IV 3 mcg/kg/hr TITR DEISY 12.927 mls/hr Administration Protocol 1 MCG/KG/HR Midazolam HCl 100 mg/ Sodium 100 mls @ 1 mls/hr 03/05/21 11:00 03/15/21 12:10 Chloride IV 3 mg/hr TITR DEISY 3 mls/hr Administration Protocol 1 MG/HR NORepinephrine/NS 8 MG-250 ML 8 mg in 250 mls @ 3.75 mls/hr 03/05/21 10:15 03/14/21 19:37 Norepinephrine/Ns 8 Mg-250 Ml (Double Conc) IV 2 mcg/min TITRATE DEISY 3.75 mls/hr Administration Protocol 2 MCG/MIN Dexmedetomidine HCl 400 mcg/ 104 mls @ 4.482 mls/hr 03/05/21 14:00 Sodium Chloride IV TITRATE DEISY Protocol 0.2 MCG/KG/HR Vasopressin 20 unit/ Sodium 101 mls @ 9.09 mls/hr 03/06/21 06:00 03/08/21 10:30 Chloride IV 0 units/min TITR DEISY 0 mls/hr Titration Protocol 0.03 UNITS/MIN Insulin Glargine 10 units 03/02/21 22:00 03/14/21 22:08 Insulin Glargine 100 Units/Ml SUB-Q 10 units QHS DEISY Administration Insulin Human Lispro 0 unit 03/05/21 18:00 03/15/21 12:14 Insulin Lispro 100 Unit/Ml SUB-Q Not Given Q6HR [facility] Protocol Midazolam HCl 2 mg 03/05/21 10:11 03/05/21 10:53 Midazolam 2 Mg/2 Ml Inj IV 2 mg Q10MIN PRN Administration Sedation Multi-Ingred Cream/Lotion/Oil/Oint 1 applic 03/05/21 09:39 Mineral Oil/Petrolatum, White Ophth Oint 3.5 Gm OU Q4HR PRN Dry Eye(s) Ondansetron HCl 4 mg 02/17/21 23:58 Ondansetron 4 Mg/2 Ml Inj IV Q8H PRN Nausea And Vomiting Senna/Docusate Sodium 1 tab 03/05/21 10:00 03/15/21 09:59 Sennosides/Docusate Sodium 8.6/50 Mg Tab FEEDTUBE 1 tab BID DEISY Administration Sertraline HCl 50 mg 02/19/21 10:00 03/15/21 09:59 Sertraline 50 Mg Tab PO 50 mg QDAY DEISY Administration Sodium Chloride 10 ml 02/18/21 10:00 03/15/21 10:13 Sodium Chloride 0.9% 10 Ml Flush Syringe IV 10 ml BID DEIYS Administration Sodium Chloride 10 ml 02/17/21 23:58 Sodium Chloride 0.9% 10 Ml Flush Syringe IV PRN PRN LINE FLUSH Sodium Chloride 10 ml 03/11/21 09:49 Sodium Chloride 0.9% 50 Ml Ivpb IV PRN PRN FLUSH Nutrition/Malnutrition Assess - Dietary Evaluation Nutrition/Malnutrition Findings: Nutrition Notes Start: 02/25/21 16:10 Freq: Status: Active Protocol: Document 03/11/21 16:53 ALEC (Rec: 03/11/21 17:06 ALEC [id number]) Nutrition Notes Initial or Follow up Brief Note Current Diet TF-Glucerna 1.2 Dagoberto @ 48 ml/hr (since D 03/08). Height 5 ft 6 in Weight 86.183 kg [place] Body Weight (kg) 59.09 BMI 30.7 Weight change and time frame No body weight change reported . Weight Status Obese Subjective/Other Information RD consult for routinr F/U on TF tolerance. Pt continues on mechanical ventilation. TF well tolerated, according to RN notes. Percent of energy/protein needs met: Prescribed Glucerna 1.2 Dagoberto @ 48 ml/hr provides for energy/ protein needs (1,390 Kcal/70 g ) during LOS, 100% Kcal; 75% AA. #2 Nutrition Diagnosis Inadequate oral intake Diagnosis Progress(for reassessment Continues documentation) #1 Nutrition Diagnosis Inadequate protein-energy intake Diagnosis Progress(for reassessment Continues documentation) Is patient on ventilator? Yes Is Patient Ambulatory and/or Out of Bed No REE-([facility]-confined to bed) 1737.120 Calculation Used for Recommendations 70-80% energy needs Additional Notes Energy: 1034-9055 kcal/day Protein: 1.3 g/kg adjBW: 94 g/ day Fluids: 1 ml/kcal, or as per MD. Nutrition Intervention Nutrition Support: Continue Glucerna 1.2 Dagoberto @ 50 ml/hr. Flush: 80 ml water Q 4 hr, or as per MD. Kcal 1,440 Protein (gm) 72 Carbohydrates (gm) 137 Fat (gm) 72 Fluid (mL) 966 Fiber (gm) 19 % RDI: 100% Kcal; 75% AA. Goal #1 Provide at least 75% of energy /protein needs through Enteral Feeding during LOS. Follow-Up By: 03/18/21 Additional Comments Continue monitoring TF tolerance and BM.
[2021-03-15] MEDS: INSULIN GLARGINE 100 UNITS/ML SUB-Q SCH (21:49)
[2021-03-16] MEDS: INSULIN LISPRO 100 UNIT/ML SUB-Q SCH ×4 (00:49→18:06)
[2021-03-16] MEDS: fentaNYL DRIP Premix 2,000 MCG/100 ML BAG IV SCH ×3 (03:58→19:29)
[2021-03-16] MEDS: FREE WATER PO SCH ×6 (04:29→22:41)
--- NOTE | 2021-03-16 08:36 | Progress Note ---
Assessment and Plan Assessment and plan: This is a 61-year-old female with HTN, DM, DVT/PE on Eliquis admitted with acute hypoxic respiratory failure secondary to COVID-19 pneumonia Acute hypoxic respiratory failure secondary to Covid pneumonia, ARDS -S/p BiPAP and OptiFlow -Intubated on 03/05 with 7.50 ETT -A.m. vent settings: CMV tidal volume 350, rate 30, PEEP 20, 75% FiO2 -See RT notes for titration -ccm decrease FiO2 to 70 -CCM consulted, appreciate recommendations -VAP bundle -SPO2 monitoring -AM CXR and ABG noted -Sedated on Versed and propofol -RASS goal of -2 to -3 -Avoid delirium -Maintain sleep-wake cycle -SAT/SBT when appropriate Sepsis/COVID-19 pneumonia, leukocytosis, multifocal pneumonia -Infectious disease consulted, appreciate recommendations -> signed off 02/28 -Vasopressor support with Levophed -MAP goal greater than 65 -S/p steroids for 10 days -S/p remdesivir for 10 days -S/p empiric antibiotics for 5 days -S/p Actemra -Isolation/droplet precautions -Vitamin C/vitamin D/zinc -Trend COVID-19 from 2 markers -Anticoagulation per protocol Acute kidney injury secondary to acute tubular necrosis -BUN/creatinine increased to 1.9/62 -S/p diuresis with Lasix x4 (120 mg total for visit) -S/p 4 L LR -Avoid nephrotoxic medications -Renally dose medications -Trend BMP Acute right lower leg DVT, PE -Vascular surgery consulted, appreciate recommendations -D-dimer greater than 10,000 -CTA chest showed several small emboli in the segmental branches of the right lung -Vascular surgery recommended anticoagulation and supportive therapy -bilateral lower extremity Doppler ultrasound showed a chronic appearing DVT in the right posterior tibial vein -Therapeutic Lovenox -Trend CBC -Transfuse to hemoglobin less than 7 -Monitor for signs of bleeding h/o DM -SSI -Lantus, titrate as needed -Avoid hypoglycemia h/o HTN -Hold home antihypertensive regimen at this time -Blood pressure monitor per protocol DVT/GI prophylaxis -Lovenox subcu -PPI The high probability of a clinically significant, sudden or life threatening deterioration of the [CV/Resp] system(s) required my full and direct attention, intervention and personal management. The aggregate critical care time was [60] minutes. This time is in addition to time spent performing reported procedures but includes the following: [x] Data Review and interpretation [x] Patient assessment and monitoring of vital signs [x] Documentation [x] Medication orders and management Disposition Plan: icu Total Time Spent with Patient (Minutes): 60 History Interval history: This is a 61-year-old female with HTN, DM, left lower extremity DVT and pulmonary medicine on Eliquis who presented to emergency department on 02/17 with complaints of shortness of breath and generalized weakness for the past 5 days prior to arrival and states that she is tested positive for COVID-19 on February 10, 2021 via EMS. EMS stated that the patient's initial oxygen saturation was 75% on room air improved to 86% on nonrebreather. Work-up in the emergency department revealed leukocytosis and elevated BUN. Work-up in the ED included a CXR which showed severe diffuse bilateral patchy opacities. Patient was admitted to the hospitalist service with consults to ID, pulmonology, vascular surgery as a COVID-19 PUI, SARS, acute hypoxic respiratory failure and multifocal pneumonia. Hospital course to date: 02/19/2020: Patient on 50% Ventimask, Covid positive, Continue steroids ,May DC antibiotics, Respiratory assessment and treatment 02/19: Patient still hypoxic, encourage prone positioning, Pulmonary and ID consult. Will obtain CTA chest to evaluate for PE. Continue steroid therapy and oxygen therapy wean as tolerated. Continuous pulse oximeter. Plan discussed with the patient. 02/20: Patient seen and examined, remains on NRBM. awaiting CT CHEST WITH ANGIO Ordered yesterday. Encourage proning the patient says she was not proned yesterday discussed with nursing staff. Continue steroid therapy and remdesivir. Patient was seen by ID and as documented by ID"She is a candidate for Actemra based on CRp and O2 requirements. unfortunately we have not been getting procalcitonin results. -ordered Actemra once (afebrile, white count only mildly elevated in the setting of steroids)" Discussed plan of care with the nurse. Also called to updated the patients sister listed as NOK but got voice mail 02/21: Continue steroids, remdesivir, patient received 1 dose of Actemra but unable to get the second dose due to availability. CTA showed dense consolidation but no effusion and no pulmonary embolism patient does have a lower extremity DVT. Eliquis continues at full dose of 5 mg twice daily we will continue to monitor closely. Prognosis is guarded counseling for compliance for 15 minutes. 02/22: Patient clinically not improving much of switch the patient to Lovenox. Prognosis remains guarded. Continue anticoagulation due to DVT still suspicious of pulmonary embolism as a result we will obtain echocardiogram and vascular consult per pulmonary request which I agree with. I will also transfer the patient to stepdown unit for closer monitoring. 02/23: Vascular input noted agree the patient has subsegmental bibasilar pulmonary embolism but not enough to warrant intervention. Does not feel that this is contributing majority to her hypoxia. Nevertheless we will switch patient from Eliquis to Lovenox. Continue current management with remdesivir 02/24: Patient seen and examined, remains on anticoagulation, continue remedsivir and steroids. prone as tolerated, will give additional lasix today. Guarded prognosis. 02/25 A&O x 3, C/O mild cough with mucoid expectorant. Denies CP or shortness of breath. Remains on HFNC. pulmonary note and lab results reviewed 02/26: AOX3, proning on encounter. Encouraged continued movement while in bed and with assistance of care staff. Remains on HFNC. Last day of decadron today. 02/27: Patient encouraged to continue proning and remain active. Discussed with PT to come work with patient to mobilize. Will d/w CM for chcf placement solution. 02/28: Patient stated she would like to be a full code. Working with CM for LTAC placement. 03/01: Awaiting LTAC placement. Remains full code. Spoke with daughter Meghna who was updated on patient's case. 03/02: Sats in low 80s on hi lfow. Blood gas shows pao2 = 35.9. will start bipap, d/w IMCU RN who will notify RT. repeat abg in 1 hr. Poor prognosis. 03/03; Sats in low 90's on bipap. Repeat abg this AM demosntrates marginal improvement in PaO2. PCCM d/w daughter, patient and her daughter would like intubation should she continue to deteriorate. Prognosis remains poor. 03/04: de-escalated to HFNC 40/100 + venti. Will continue with bipap prn. Continue steroids. Dispo is still LTAC, placement is pending. 03/05: Resipratory distress this morning. Sats 69-70%. subsequently intubated. Now icu level of care. Family wants continue aggressive measures. Will follow [facility] recs. 03/06: Patient with ISH this am probably due to hypotension vs diuretic use, fluid bolus challenge this am. Urine lytes ordered. FWF added for hypernatremia. 03/07: Patient responded to fluid challenge, renal function improved, UOP better. Weaning down pressors, additional IVF bolus today, plan to wean down on pressors requirement. ABG improved today, wean down Fio2 as tolerated. Okay to start trickle feeds. 03/08: Renal function is back to baseline. Going down on pressor requirements, only on low dose Vaso and levophed today. Continue to wean pressors as tolerated. D/W CCm continue to wean Fio2 as tolerated, keep patient a RASS goal of -4 for now. Advance TF as tolerated per order. 03/09: Remains on the vent. Low SPO2 overnight, vent setting was increased. Off pressors this am. IV lasix per [facility], repeat CXR in the am 03/10: Remains intubated and sedated, RASS -4. Back on pressors this am for low BP. This am CXR and ABG reviewed, oxygenation improved. Continue to wean pressors as tolerated. Vent adjustement per [facility] 03/11: Kayexalate given hypernatremia, remains on Levophed, increasing free water flush. 03/12: Hyperkalemia medically treated, repeat potassium is 4. BUN continues to rise. Continue to trend. Patient has been titrated off of Levophed. 03/13: Potassium is trending up, will continue to monitor. Wean Levophed as tolerated. Hypernatremia worsened, free water flushes increased. Vent changes per [facility]. 03/14: [facility] updated daughter who stated she will discuss with family and update decisions regarding goals of care. FiO2 weaned. Continue to monitor. Levophed restarted. 03/15: Continue supportive measures and monitoring renal function. Patient remains on low-dose Levophed. FiO2 decreased slightly but SPO2 has been in the upper 80s. 03/16: FiO2 decreased by [facility], remains on Levophed drip and sedated with fentanyl and Versed. PEEP remains at 20. No acute events overnight Hospitalist Physical - Physical exam Narrative exam: General appearance: Present: no acute distress, well-nourished, other (Intubated and Sedated) - EENT Eyes: Present: PERRL, EOM intact - Neck Neck: Present: normal ROM - Respiratory Respiratory effort: normal Respiratory: bilateral: diminished - Cardiovascular Rhythm: regular Heart Sounds: Present: S1 & S2. Absent: systolic murmur, diastolic murmur - Extremities Extremities: no ischemia, pulses intact, pulses symmetrical, No edema, normal temperature, normal color Peripheral Pulses: within normal limits - Abdominal General gastrointestinal: soft, non-tender, non-distended, normal bowel sounds - Integumentary Integumentary: Present: warm, dry - Psychiatric Psychiatric: other - Neurologic Neurologic: other (intact cough/gag) - Allied Health Allied health notes reviewed: nursing, RT, social work - Constitutional Vitals: Temp Pulse Resp BP Pulse Ox 99.5 F 85 31 H 91/58 89 03/16/21 03:51 03/16/21 08:00 03/16/21 06:00 03/16/21 08:00 03/16/21 08:00 General appearance: Present: no acute distress, well-nourished, other (Intubated and Sedated) Results - Labs CBC & Chem 7: 03/15/21 04:30 03/15/21 04:30 Labs: Laboratory Last Values WBC 13.5 K/mm3 (4.5-11.0) H 03/15/21 04:30 RBC 2.99 M/mm3 (3.65-5.03) L 03/15/21 04:30 Hgb 8.4 gm/dl (10.1-14.3) L 03/15/21 04:30 Hct 27.9 % (30.3-42.9) L 03/15/21 04:30 MCV 93 fl (79-97) 03/15/21 04:30 MCH 29 pg (28-32) 03/15/21 04:30 MCHC 31 % (30-34) 03/15/21 04:30 RDW 15.6 % (13.2-15.2) H 03/15/21 04:30 Plt Count 297 K/mm3 (140-440) 03/15/21 04:30 Add Manual Diff Complete 03/05/21 10:10 Total Counted 100 03/05/21 10:10 Seg Neuts % (Manual) 77.0 % (40.0-70.0) H 03/05/21 10:10 Band Neutrophils % 3.0 % 03/05/21 10:10 Lymphocytes % (Manual) 12.0 % (13.4-35.0) L 03/05/21 10:10 Reactive Lymphs % (Man) 2.0 % 03/05/21 10:10 Monocytes % (Manual) 5.0 % (0.0-7.3) 03/05/21 10:10 Eosinophils % (Manual) 1.0 % (0.0-4.3) 03/05/21 10:10 Basophils % (Manual) 0 % (0.0-1.8) 03/05/21 10:10 Metamyelocytes % 0 % 03/05/21 10:10 Myelocytes % 0 % 03/05/21 10:10 Promyelocytes % 0 % 03/05/21 10:10 Blast Cells % 0 % 03/05/21 10:10 Nucleated RBC % Not Reportable 03/05/21 10:10 Seg Neutrophils # Man 13.7 K/mm3 (1.8-7.7) H 03/05/21 10:10 Band Neutrophils # 0.5 K/mm3 03/05/21 10:10 Lymphocytes # (Manual) 2.1 K/mm3 (1.2-5.4) 03/05/21 10:10 Abs React Lymphs (Man) 0.4 K/mm3 03/05/21 10:10 Monocytes # (Manual) 0.9 K/mm3 (0.0-0.8) H 03/05/21 10:10 Eosinophils # (Manual) 0.2 K/mm3 (0.0-0.4) 03/05/21 10:10 Basophils # (Manual) 0.0 K/mm3 (0.0-0.1) 03/05/21 10:10 Metamyelocytes # 0.0 K/mm3 03/05/21 10:10 Myelocytes # 0.0 K/mm3 03/05/21 10:10 Promyelocytes # 0.0 K/mm3 03/05/21 10:10 Blast Cells # 0.0 K/mm3 03/05/21 10:10 WBC Morphology Not Reportable 03/05/21 10:10 Hypersegmented Neuts Not Reportable 03/05/21 10:10 Hyposegmented Neuts Not Reportable 03/05/21 10:10 Hypogranular Neuts Not Reportable 03/05/21 10:10 Smudge Cells Not Reportable 03/05/21 10:10 Toxic Granulation Not Reportable 03/05/21 10:10 Toxic Vacuolation Not Reportable 03/05/21 10:10 Dohle Bodies Not Reportable 03/05/21 10:10 Pelger-Huet Anomaly Not Reportable 03/05/21 10:10 Cindy Rods Not Reportable 03/05/21 10:10 Platelet Estimate Consistent w auto 03/05/21 10:10 Clumped Platelets Not Reportable 03/05/21 10:10 Plt Clumps, EDTA Not Reportable 03/05/21 10:10 Large Platelets 1+ 03/05/21 10:10 Giant Platelets Not Reportable 03/05/21 10:10 Platelet Satelliting Not Reportable 03/05/21 10:10 Plt Morphology Comment Not Reportable 03/05/21 10:10 RBC Morphology Not Reportable 03/05/21 10:10 Dimorphic RBCs Not Reportable 03/05/21 10:10 Polychromasia Few 03/05/21 10:10 Hypochromasia Not Reportable 03/05/21 10:10 Poikilocytosis Not Reportable 03/05/21 10:10 Anisocytosis 1+ 03/05/21 10:10 Microcytosis Not Reportable 03/05/21 10:10 Macrocytosis Not Reportable 03/05/21 10:10 Spherocytes Not Reportable 03/05/21 10:10 Pappenheimer Bodies Not Reportable 03/05/21 10:10 Sickle Cells Not Reportable 03/05/21 10:10 Target Cells Not Reportable 03/05/21 10:10 Tear Drop Cells Not Reportable 03/05/21 10:10 Ovalocytes Not Reportable 03/05/21 10:10 Helmet Cells Not Reportable 03/05/21 10:10 Sumner-Prosser Bodies Not Reportable 03/05/21 10:10 [place] Rings Not Reportable 03/05/21 10:10 Alicia Cells Not Reportable 03/05/21 10:10 Bite Cells Not Reportable 03/05/21 10:10 Crenated Cell Not Reportable 03/05/21 10:10 Elliptocytes Not Reportable 03/05/21 10:10 Acanthocytes (Spur) Not Reportable 03/05/21 10:10 Rouleaux Not Reportable 03/05/21 10:10 Hemoglobin C Crystals Not Reportable 03/05/21 10:10 Schistocytes Not Reportable 03/05/21 10:10 Malaria parasites Not Reportable 03/05/21 10:10 Pedro Pablo Bodies Not Reportable 03/05/21 10:10 Hem Pathologist Commnt No 03/05/21 10:10 PT 13.9 Sec. (12.2-14.9) 02/17/21 14:34 INR 0.96 (0.87-1.13) 02/17/21 14:34 APTT 26.4 Sec. (24.2-36.6) 02/17/21 14:34 D-Dimer 3469.99 ng/mlDDU (0-234) H 03/01/21 05:12 ABG pH 7.279 (7.320-7.450) L 03/16/21 04:58 POC ABG pCO2 77.0 mmHg (32.0-48.0) H 03/16/21 04:58 ABG pCO2 75.2 mm Hg 03/14/21 03:44 POC ABG pO2 65.3 mmHg (83-108) L 03/16/21 04:58 ABG pO2 75.4 mm Hg (80.0-90.0) L 03/14/21 03:44 POC ABG HCO3 35.3 03/16/21 04:58 ABG HCO3 36.7 mmol/L (20.0-26.0) H 03/14/21 03:44 ABG O2 Saturation 90.8 (0-100) 03/16/21 04:58 ABG O2 Content 10.9 (0.0-44) 03/14/21 03:44 POC ABG Base Excess 6.8 03/16/21 04:58 ABG Base Excess 8.9 mmol/L (-2.0-3.0) H 03/14/21 03:44 ABG Hemoglobin 9.8 (12.0-17.5) L 03/16/21 04:58 ABG Oxyhemoglobin 89.7 (94-98) L 03/16/21 04:58 ABG Carboxyhemoglobin 1.7 % (0.0-5.0) 03/14/21 03:44 ABG Methemoglobin 0.1 (0.0-1.5) 03/16/21 04:58 Oxyhemoglobin 93.6 % (95.0-99.0) L 03/14/21 03:44 Carboxyhemoglobin 1.1 (0.5-1.5) 03/16/21 04:58 FiO2 80 % 03/14/21 03:44 FiO2 % 75.0 03/16/21 04:58 Sodium 143 mmol/L (137-145) 03/15/21 04:30 Potassium 4.5 mmol/L (3.6-5.0) 03/15/21 04:30 Chloride 103.2 mmol/L (98-107) 03/15/21 04:30 Carbon Dioxide 32 mmol/L (22-30) H 03/15/21 04:30 Anion Gap 12 mmol/L 03/15/21 04:30 BUN 68 mg/dL (7-17) H 03/15/21 04:30 Creatinine 0.9 mg/dL (0.6-1.2) 03/15/21 04:30 Estimated GFR > 60 ml/min 03/15/21 04:30 BUN/Creatinine Ratio 76 % 03/15/21 04:30 Glucose 128 mg/dL (65-100) H 03/15/21 04:30 POC Glucose 140 mg/dL (70-105) H 03/16/21 05:29 Lactic Acid 1.60 mmol/L (0.7-2.0) 02/17/21 18:39 Calcium 9.6 mg/dL (8.4-10.2) 03/15/21 04:30 Phosphorus 4.70 mg/dL (2.5-4.5) H 03/14/21 07:17 Magnesium 2.80 mg/dL (1.7-2.3) H 03/14/21 07:17 Ferritin 1526.0 ng/mL (10.0-200.0) H 03/01/21 05:12 Total Bilirubin 0.30 mg/dL (0.1-1.2) 03/05/21 10:10 Direct Bilirubin < 0.2 mg/dL (0-0.2) 02/17/21 14:34 Indirect Bilirubin 0.1 mg/dL 02/17/21 14:34 AST 38 units/L (5-40) 03/05/21 10:10 ALT 44 units/L (7-56) 03/05/21 10:10 Alkaline Phosphatase 78 units/L (35-129) 03/05/21 10:10 Lactate Dehydrogenase 385 units/L (91-180) H 03/01/21 05:12 C-Reactive Protein 11.20 mg/dL (0.00-1.30) H 03/01/21 05:12 NT-Pro-B Natriuret Pep 86.77 pg/mL (0-900) 02/20/21 16:34 Total Protein 7.7 g/dL (6.3-8.2) 03/05/21 10:10 Albumin 3.1 g/dL (3.9-5) L 03/05/21 10:10 Albumin/Globulin Ratio 0.7 % 03/05/21 10:10 Triglycerides 169 mg/dL (2-149) H 03/16/21 05:00 Procalcitonin 0.11 ng/mL (<0.15) 02/19/21 07:32 Urine Color Cassandra (Yellow) 02/18/21 Unknown Urine Turbidity Cloudy (Clear) 02/18/21 Unknown Urine pH 5.0 (5.0-7.0) 02/18/21 Unknown Ur Specific [place] 1.027 (1.003-1.030) 02/18/21 Unknown Urine Protein 100 mg/dl mg/dL (Negative) 02/18/21 Unknown Urine Glucose (UA) Neg mg/dL (Negative) 02/18/21 Unknown Urine Ketones Neg mg/dL (Negative) 02/18/21 Unknown Urine Blood Neg (Negative) 02/18/21 Unknown Urine Nitrite Neg (Negative) 02/18/21 Unknown Urine Bilirubin Neg (Negative) 02/18/21 Unknown Urine Urobilinogen < 2.0 mg/dL (<2.0) 02/18/21 Unknown Ur Leukocyte Esterase Neg (Negative) 02/18/21 Unknown Urine WBC (Auto) 7.0 /HPF (0.0-6.0) H 02/18/21 Unknown Urine RBC (Auto) 4.0 /HPF (0.0-6.0) 02/18/21 Unknown U Epithel Cells (Auto) 3.0 /HPF (0-13.0) 02/18/21 Unknown Urine Mucus 2+ /HPF 02/18/21 Unknown Urine Creatinine 247.7 mg/dL (0.1-20.0) H 03/06/21 09:00 Urine Sodium 25 mmol/L 03/06/21 09:00 Coronavirus (PCR) Positive (Negative) A 02/18/21 Unknown Head/IV: Voiding Method Indwelling Catheter Active Medications - Current Medications Current Medications: Generic Name Dose Route Start Last Admin Trade Name Freq PRN Reason Stop Dose Admin Acetaminophen 650 mg 02/17/21 23:58 03/11/21 04:27 Acetaminophen 325 Mg Tab PO 650 mg Q4H PRN Administration Pain MILD(1-3)/Fever >100.5/BROWN Dextrose 0 ml 03/11/21 10:46 Dextrose 10% *Hypoglycemia IV PRN PRN Hypoglycemia Enoxaparin Sodium 90 mg 03/08/21 22:00 03/15/21 21:48 Enoxaparin 100 Mg/1 Ml Inj 1 mg/kg (90 mg) 90 mg SUB-Q Administration Q12HR [facility] Protocol Famotidine 20 mg 03/11/21 22:00 03/15/21 21:49 Famotidine 20 Mg Tab FEEDTUBE 20 mg BID DEISY Administration Fentanyl 50 mcg 03/05/21 09:38 03/12/21 17:58 Fentanyl 100 Mcg/2 Ml Inj IV 50 mcg Q10MIN PRN Administration ANALGESIA Gabapentin 400 mg 02/19/21 04:00 03/15/21 21:48 Gabapentin 400 Mg Cap PO 400 mg BID DEISY Administration Hydrophilic Ointment 1 applic 03/05/21 09:39 Lip Therapy Vaseline TP Q2HR PRN Dry Lips Propofol 1,000 mg in 100 mls @ 2.585 mls/hr 03/05/21 10:00 03/15/21 22:44 Diprivan 10 Mg/Ml IV 20 mcg/kg/min TITR DEISY 10.342 mls/hr Administration Protocol 5 MCG/KG/MIN Fentanyl Citrate 2,000 mcg in 100 mls @ 4.309 mls/hr 03/05/21 10:00 03/16/21 03:58 Fentanyl Drip Premix IV 3 mcg/kg/hr TITR DEISY 12.927 mls/hr Administration Protocol 1 MCG/KG/HR Midazolam HCl 100 mg/ Sodium 100 mls @ 1 mls/hr 03/05/21 11:00 03/15/21 12:10 Chloride IV 3 mg/hr TITR DEISY 3 mls/hr Administration Protocol 1 MG/HR NORepinephrine/NS 8 MG-250 ML 8 mg in 250 mls @ 3.75 mls/hr 03/05/21 10:15 03/14/21 19:37 Norepinephrine/Ns 8 Mg-250 Ml (Double Conc) IV 2 mcg/min TITRATE DEISY 3.75 mls/hr Administration Protocol 2 MCG/MIN Dexmedetomidine HCl 400 mcg/ 104 mls @ 4.482 mls/hr 03/05/21 14:00 Sodium Chloride IV TITRATE DEISY Protocol 0.2 MCG/KG/HR Vasopressin 20 unit/ Sodium 101 mls @ 9.09 mls/hr 03/06/21 06:00 03/08/21 10:30 Chloride IV 0 units/min TITR DEISY 0 mls/hr Titration Protocol 0.03 UNITS/MIN Insulin Glargine 10 units 03/02/21 22:00 03/15/21 21:49 Insulin Glargine 100 Units/Ml SUB-Q 10 units QHS [facility] Administration Insulin Human Lispro 0 unit 03/05/21 18:00 03/16/21 06:26 Insulin Lispro 100 Unit/Ml SUB-Q Not Given Q6HR [facility] Protocol Midazolam HCl 2 mg 03/05/21 10:11 03/05/21 10:53 Midazolam 2 Mg/2 Ml Inj IV 2 mg Q10MIN PRN Administration Sedation Multi-Ingred Cream/Lotion/Oil/Oint 1 applic 03/05/21 09:39 Mineral Oil/Petrolatum, White Ophth Oint 3.5 Gm OU Q4HR PRN Dry Eye(s) Ondansetron HCl 4 mg 02/17/21 23:58 Ondansetron 4 Mg/2 Ml Inj IV Q8H PRN Nausea And Vomiting Senna/Docusate Sodium 1 tab 03/05/21 10:00 03/15/21 21:49 Sennosides/Docusate Sodium 8.6/50 Mg Tab FEEDTUBE 1 tab BID DEISY Administration Sertraline HCl 50 mg 02/19/21 10:00 03/15/21 09:59 Sertraline 50 Mg Tab PO 50 mg QDAY DEISY Administration Sodium Chloride 10 ml 02/18/21 10:00 03/15/21 21:48 Sodium Chloride 0.9% 10 Ml Flush Syringe IV 10 ml BID DEISY Administration Sodium Chloride 10 ml 02/17/21 23:58 Sodium Chloride 0.9% 10 Ml Flush Syringe IV PRN PRN LINE FLUSH Sodium Chloride 10 ml 03/11/21 09:49 Sodium Chloride 0.9% 50 Ml Ivpb IV PRN PRN FLUSH Nutrition/Malnutrition Assess - Dietary Evaluation Nutrition/Malnutrition Findings: Nutrition Notes Start: 02/25/21 16:10 Freq: Status: Active Protocol: Document 03/11/21 16:53 ALEC (Rec: 03/11/21 17:06 ALEC [id number]) Nutrition Notes Initial or Follow up Brief Note Current Diet TF-Glucerna 1.2 Dagoberto @ 48 ml/hr (since D 03/08). Height 5 ft 6 in Weight 86.183 kg [place] Body Weight (kg) 59.09 BMI 30.7 Weight change and time frame No body weight change reported . Weight Status Obese Subjective/Other Information RD consult for routinr F/U on TF tolerance. Pt continues on mechanical ventilation. TF well tolerated, according to RN notes. Percent of energy/protein needs met: Prescribed Glucerna 1.2 Dagoberto @ 48 ml/hr provides for energy/ protein needs (1,390 Kcal/70 g ) during LOS, 100% Kcal; 75% AA. #2 Nutrition Diagnosis Inadequate oral intake Diagnosis Progress(for reassessment Continues documentation) #1 Nutrition Diagnosis Inadequate protein-energy intake Diagnosis Progress(for reassessment Continues documentation) Is patient on ventilator? Yes Is Patient Ambulatory and/or Out of Bed No [facility] 1737.120 Calculation Used for Recommendations 70-80% energy needs Additional Notes Energy: 2776-9325 kcal/day Protein: 1.3 g/kg adjBW: 94 g/ day Fluids: 1 ml/kcal, or as per MD. Nutrition Intervention Nutrition Support: Continue Glucerna 1.2 Dagoberto @ 50 ml/hr. Flush: 80 ml water Q 4 hr, or as per MD. Kcal 1,440 Protein (gm) 72 Carbohydrates (gm) 137 Fat (gm) 72 Fluid (mL) 966 Fiber (gm) 19 % RDI: 100% Kcal; 75% AA. Goal #1 Provide at least 75% of energy /protein needs through Enteral Feeding during LOS. Follow-Up By: 03/18/21 Additional Comments Continue monitoring TF tolerance and BM.
[2021-03-16] MEDS: FAMOTIDINE 20 MG TAB FEEDTUBE SCH ×2 (09:36→22:25)
[2021-03-16] MEDS: ENOXAPARIN 100 MG/1 ML INJ SUB-Q SCH ×2 (09:36→22:24)
[2021-03-16] MEDS: GABAPENTIN 400 MG CAP PO SCH ×2 (09:36→22:24)
[2021-03-16] MEDS: SERTRALINE 50 MG TAB PO SCH (09:36)
[2021-03-16] MEDS: SENNOSIDES/DOCUSATE SODIUM 8.6/50 MG TAB FEEDTUBE SCH ×2 (09:39→22:40)
--- NOTE | 2021-03-16 09:39 | Progress Note ---
Assessment and Plan 61 y/o female with acute respiratory failure secondary to COVID 19 pneumonia. 03/16/21: Dropped FIO2 down to 70%. Keep Peep at 20. Will reach out to daughter again on Thursday to see if they have had any discussions about further plans for her mother. Continue supportive measures and continue to wean for sats >88% and PaO2 >55. Needs chemistry for the am. 03/15/21: Continue supportive measures. Continue to monitor renal function and fluid balance. May need to give a bolus today as she is back on levophed. She was on lasix daily prior to intubation. Prognosis still remains guarded to poor. Still no real success with weaning FiO2. 03/14/21: Long discussion over the phone with daughter at request of cristy ojeda Updated her on her mothers current condition and lack of improvement. She states that she has been thinking about what the next steps would be for her mother. I explained to her that her vent settings are too high for trach and peg at this moment. The other option would be, knowing that her mother did not want to be intubated but rescinded her DNR at the request of the daughter, to consider comfort measures for her. The daughter states that she will speak with her Aunt (patients sister) and they will let us know. WIll continue supportive measures and attempt to wean FIO2 to at least 60%. ONce there, can start weaning PEEP if able to get there. Monitor fluids and renal function. OVerall prognosis is guarded to poor. Also discussed the very high mortality rate associated with COVID patients and mechanical ventilation. 03/13/21: K is better but looks like it may be trending up again. Continue to monitor. Continue anticoagulation. Wean FiO2 for sats >88% and PaO2>55. Goal would be to get FiO2 to at least 60% or less. Still making urine. Prognosis however remains guarded to poor. 03/12/21: K is elevated again today. No evidence of bleeding. Plateletes did drop but still good levels. Will monitor. Wean levophed as tolerated. Continues to make good urine. Guarded to poor prognosis. 03/11/21: K is elevated but renal function and urine output remains stable. Maintain current level of sedation. On Levophed, may need to give more volume. Ok with weaning FiO2 for sats >88% and or PaO2 of 55 and greater. Unable to prone at this time. Guarded prognosis. 03/08/21: Continue to monitor urine output and function. Consider more fluid today. Maintain current level of sedation. Wean FiO2 for sats >88% and or PaO2 >55. Prognosis still remains guarded. Please do not wean PEEP until FiO2 as at 45-50% 03/07/21: Continue supportive measures. Monitor urine output and function. Labs are better today and she did put out more urine with fluid bolus so will give again today. Overall prognosis remains extremely guarded. 03/06/21: Overall clinical state is worsening. Now with difficulty ventilation and with improved ventilation comes a compromise in oxygenation. Newest concern is renal function which is worsening. If patient requires dialysis then mortality increases and prognosis worsens. If requires HD, prognosis is very very guarded to poor. 03/05/21: Added versed drip to fent and Diprovan to keep RASS at -4. Will also order precedex in the event it is needed. Repeat ABG somewhat improved but increased RR. Must watch Peak Pressures. attempting to do low lung volume protective ventilator strategy. Patient has actually been off steroids for some time. Will not restart as of yet. Unable to prone. Guarded prognosis. This discussion was had over the weekend with the daughter when I thought we would have to intubate then. Explained that vent is not therapy but only something to give her lungs time to rest, if possible to see if they can recover. Prognosis is very guarded to poor. 03/04/21: Continue supportive care between HFNC and bipap therapy. Steroids. Positive reinforcement. 03/03/21: Long discussion at bedside with patient. Today she stated that she did not want to be intubated. I attempted to call her daughter while I was in the room with the patient but no answer. She will remain full code as she has said this in the past and then revoked after speaking with the daughter ( which is why i called her again this morning). Continue bipap and monitor. Guarded prognosis. 03/02/21: Prone if able. Continue steroids. Negative fluid balance if possible. Prognosis remains very guarded 02/28/21: Prone. Steroids. Net negative fluid balance if possible. Guarded prognosis. 02/27/21: Full code status. Prone as much as possible during the day and sleep prone at night. Patient may require intubation ultimately. Guarded prognosis. 02/26/21: Prone if possible. Continue anticoagulation for DVT. Steroids. Net negative fluid balance. 02/25/21: Long discussion at bedside with patient, whom per her, she has discussed this with her daughter. She does no want an endotracheal tube. She does not want chest compression and she does not want shocks. I did not ask about vasopressors. The patient is awake and alert and oriented. This needs to be addressed by primary team as well an if confirmed, I have no problem with cosigning AND order. Continue supportive measures for now. Guarded to poor prognosis. 02/21/21: BNP normal. Still would attempt to achieve net negative fluid balance daily. Continue Remdesivir and steroids. Prone if patient willing. Follow up CTA results. Discussed with IMS, may change anticoagulation but awaiting official ready on CTA. Guareded prognosis. 02/20/21: Follow up CTA results. Will send BNP. Continue steroids and Remdesivir. Guarded prognosis. Prone if able, very pertinent to do this. 1. self proning as tolerated during the day and prone at night while sleeping 2. Steroids and Remdesivir 3. Daily net negative volume state 4. Consider checking BNP and echo to make sure no edema on this film 5. Agree with empiric anticoagulation given elevated D-Dimer Guarded prognosis. Will continue to follow. CCT 31 minutes. Subjective Date of service: 03/16/21 Principal diagnosis: COVID pneumonia Interval history: Sedated on the vent. On 75%. Sat 91. PaO2 65 this morning. Triglycerides ok at 169 Objective Vital Signs - 12hr 03/15/21 03/15/21 03/15/21 22:00 22:03 23:00 Temperature Pulse Rate 96 H 96 H 96 H Pulse Rate [ From Monitor] Respiratory 32 H 32 H 32 H Rate Blood Pressure 100/57 100/57 94/53 O2 Sat by Pulse 89 90 89 Oximetry 03/15/21 03/16/21 03/16/21 23:55 00:00 01:00 Temperature 99.2 F Pulse Rate 89 95 H 94 H Pulse Rate [ 96 H From Monitor] Respiratory 31 H 31 H Rate Blood Pressure 96/55 100/59 101/62 O2 Sat by Pulse 97 90 89 Oximetry 03/16/21 03/16/21 03/16/21 02:00 03:00 03:51 Temperature 99.5 F Pulse Rate 91 H 89 Pulse Rate [ From Monitor] Respiratory 32 H 30 H Rate Blood Pressure 83/47 84/50 O2 Sat by Pulse 89 91 Oximetry 03/16/21 03/16/21 03/16/21 04:00 04:11 05:00 Temperature Pulse Rate 88 91 H 89 Pulse Rate [ 96 H From Monitor] Respiratory 32 H 32 H Rate Blood Pressure 86/54 86/54 102/61 O2 Sat by Pulse 89 90 90 Oximetry 03/16/21 03/16/21 03/16/21 06:00 07:00 08:00 Temperature Pulse Rate 89 87 86 Pulse Rate [ From Monitor] Respiratory 31 H 29 H 30 H Rate Blood Pressure 87/53 91/55 91/58 O2 Sat by Pulse 91 91 90 Oximetry 03/16/21 09:00 Temperature Pulse Rate 81 Pulse Rate [ From Monitor] Respiratory 30 H Rate Blood Pressure 100/57 O2 Sat by Pulse 91 Oximetry Constitutional: alert, other (on hiflo) ENT: oropharynx moist Neck: supple Ascultation: Bilateral: diminished breath sounds Cardiovascular: regular rate and rhythm Gastrointestinal: normoactive bowel sounds, soft, non-tender, non-distended Integumentary: normal Extremities: no cyanosis CBC and BMP: 03/15/21 04:30 03/15/21 04:30 ABG, PT/INR, D-dimer: ABG ABG pH 7.279 (7.320-7.450) L 03/16/21 04:58 POC ABG pCO2 77.0 mmHg (32.0-48.0) H 03/16/21 04:58 ABG pCO2 75.2 mm Hg 03/14/21 03:44 POC ABG pO2 65.3 mmHg (83-108) L 03/16/21 04:58 ABG pO2 75.4 mm Hg (80.0-90.0) L 03/14/21 03:44 POC ABG HCO3 35.3 03/16/21 04:58 ABG O2 Saturation 90.8 (0-100) 03/16/21 04:58 PT/INR, D-dimer PT 13.9 Sec. (12.2-14.9) 02/17/21 14:34 INR 0.96 (0.87-1.13) 02/17/21 14:34 D-Dimer 3469.99 ng/mlDDU (0-234) H 03/01/21 05:12 Abnormal lab findings: Abnormal Labs 02/17/21 02/17/21 02/17/21 14:34 14:34 14:34 WBC 11.7 H RBC Hgb Hct 44.9 H RDW 15.6 H Plt Count Seg Neuts % (Manual) Lymphocytes % (Manual) 9.0 L Monocytes % (Manual) 12.0 H Seg Neutrophils # Man 8.2 H Lymphocytes # (Manual) 1.1 L Monocytes # (Manual) 1.4 H D-Dimer ABG pH POC ABG pCO2 POC ABG pO2 ABG pO2 ABG HCO3 ABG O2 Saturation ABG Base Excess ABG Hemoglobin ABG Oxyhemoglobin Oxyhemoglobin Carboxyhemoglobin Sodium Potassium 3.5 L Chloride Carbon Dioxide BUN 27 H Creatinine Glucose 150 H POC Glucose Lactic Acid 2.90 H* Calcium Phosphorus Magnesium Ferritin AST Lactate Dehydrogenase C-Reactive Protein NT-Pro-B Natriuret Pep Albumin Triglycerides Urine WBC (Auto) Urine Creatinine Coronavirus (PCR) 02/17/21 02/18/21 02/18/21 14:34 07:48 07:48 WBC 12.0 H RBC Hgb Hct RDW 15.4 H Plt Count Seg Neuts % (Manual) 76.0 H Lymphocytes % (Manual) Monocytes % (Manual) Seg Neutrophils # Man 9.1 H Lymphocytes # (Manual) Monocytes # (Manual) D-Dimer ABG pH POC ABG pCO2 POC ABG pO2 ABG pO2 ABG HCO3 ABG O2 Saturation ABG Base Excess ABG Hemoglobin ABG Oxyhemoglobin Oxyhemoglobin Carboxyhemoglobin Sodium Potassium Chloride Carbon Dioxide BUN 36 H Creatinine Glucose 133 H POC Glucose Lactic Acid Calcium Phosphorus Magnesium Ferritin AST 57 H Lactate Dehydrogenase C-Reactive Protein NT-Pro-B Natriuret Pep 1619 H Albumin 3.3 L Triglycerides Urine WBC (Auto) Urine Creatinine Coronavirus (PCR) 02/18/21 02/18/21 02/19/21 Unknown Unknown 07:32 WBC RBC Hgb Hct RDW Plt Count Seg Neuts % (Manual) Lymphocytes % (Manual) Monocytes % (Manual) Seg Neutrophils # Man Lymphocytes # (Manual) Monocytes # (Manual) D-Dimer ABG pH POC ABG pCO2 POC ABG pO2 ABG pO2 ABG HCO3 ABG O2 Saturation ABG Base Excess ABG Hemoglobin ABG Oxyhemoglobin Oxyhemoglobin Carboxyhemoglobin Sodium 148 H D Potassium Chloride Carbon Dioxide BUN 41 H Creatinine Glucose 123 H POC Glucose Lactic Acid Calcium Phosphorus Magnesium Ferritin AST 57 H Lactate Dehydrogenase C-Reactive Protein NT-Pro-B Natriuret Pep Albumin 3.7 L Triglycerides Urine WBC (Auto) 7.0 H Urine Creatinine Coronavirus (PCR) Positive A 02/19/21 02/19/21 02/20/21 07:32 08:43 05:00 WBC RBC Hgb Hct RDW Plt Count Seg Neuts % (Manual) Lymphocytes % (Manual) Monocytes % (Manual) Seg Neutrophils # Man Lymphocytes # (Manual) Monocytes # (Manual) D-Dimer > 40199 H ABG pH POC ABG pCO2 POC ABG pO2 ABG pO2 ABG HCO3 ABG O2 Saturation ABG Base Excess ABG Hemoglobin ABG Oxyhemoglobin Oxyhemoglobin Carboxyhemoglobin Sodium 147 H Potassium Chloride 107.6 H Carbon Dioxide BUN 36 H Creatinine Glucose POC Glucose Lactic Acid Calcium Phosphorus Magnesium Ferritin AST Lactate Dehydrogenase C-Reactive Protein 10.90 H NT-Pro-B Natriuret Pep Albumin 3.3 L Triglycerides Urine WBC (Auto) Urine Creatinine Coronavirus (PCR) 02/20/21 02/21/21 02/21/21 18:46 04:44 04:44 WBC 16.7 H RBC Hgb Hct RDW Plt Count Seg Neuts % (Manual) Lymphocytes % (Manual) Monocytes % (Manual) Seg Neutrophils # Man Lymphocytes # (Manual) Monocytes # (Manual) D-Dimer ABG pH 7.453 H POC ABG pCO2 POC ABG pO2 ABG pO2 55.0 L ABG HCO3 26.6 H ABG O2 Saturation 88.3 L ABG Base Excess ABG Hemoglobin ABG Oxyhemoglobin Oxyhemoglobin 86.8 L Carboxyhemoglobin Sodium Potassium Chloride Carbon Dioxide BUN 26 H Creatinine Glucose 111 H POC Glucose Lactic Acid Calcium Phosphorus Magnesium Ferritin AST Lactate Dehydrogenase C-Reactive Protein NT-Pro-B Natriuret Pep Albumin 3.4 L Triglycerides Urine WBC (Auto) Urine Creatinine Coronavirus (PCR) 02/22/21 02/23/21 02/23/21 04:47 09:05 09:05 WBC 19.3 H RBC 5.29 H Hgb 15.2 H Hct 47.7 H D RDW Plt Count Seg Neuts % (Manual) 82.0 H Lymphocytes % (Manual) 6.0 L Monocytes % (Manual) Seg Neutrophils # Man 15.8 H Lymphocytes # (Manual) Monocytes # (Manual) 1.0 H D-Dimer ABG pH POC ABG pCO2 POC ABG pO2 ABG pO2 ABG HCO3 ABG O2 Saturation ABG Base Excess ABG Hemoglobin ABG Oxyhemoglobin Oxyhemoglobin Carboxyhemoglobin Sodium Potassium Chloride Carbon Dioxide BUN 25 H 27 H Creatinine Glucose 125 H POC Glucose Lactic Acid Calcium Phosphorus Magnesium Ferritin AST Lactate Dehydrogenase C-Reactive Protein NT-Pro-B Natriuret Pep Albumin 3.3 L Triglycerides Urine WBC (Auto) Urine Creatinine Coronavirus (PCR) 02/23/21 02/23/21 02/24/21 11:33 16:24 04:50 WBC 14.8 H RBC Hgb Hct RDW Plt Count Seg Neuts % (Manual) Lymphocytes % (Manual) Monocytes % (Manual) Seg Neutrophils # Man Lymphocytes # (Manual) Monocytes # (Manual) D-Dimer ABG pH POC ABG pCO2 POC ABG pO2 ABG pO2 ABG HCO3 ABG O2 Saturation ABG Base Excess ABG Hemoglobin ABG Oxyhemoglobin Oxyhemoglobin Carboxyhemoglobin Sodium Potassium Chloride Carbon Dioxide BUN Creatinine Glucose POC Glucose 117 H 163 H Lactic Acid Calcium Phosphorus Magnesium Ferritin AST Lactate Dehydrogenase C-Reactive Protein NT-Pro-B Natriuret Pep Albumin Triglycerides Urine WBC (Auto) Urine Creatinine Coronavirus (PCR) 02/24/21 02/25/21 02/27/21 04:50 21:12 04:57 WBC 17.0 H RBC Hgb Hct 43.4 H RDW Plt Count Seg Neuts % (Manual) 84.0 H Lymphocytes % (Manual) 4.0 L Monocytes % (Manual) Seg Neutrophils # Man 14.3 H Lymphocytes # (Manual) 0.7 L Monocytes # (Manual) 0.9 H D-Dimer ABG pH POC ABG pCO2 POC ABG pO2 ABG pO2 ABG HCO3 ABG O2 Saturation ABG Base Excess ABG Hemoglobin ABG Oxyhemoglobin Oxyhemoglobin Carboxyhemoglobin Sodium Potassium Chloride Carbon Dioxide BUN 23 H Creatinine Glucose POC Glucose 175 H Lactic Acid Calcium Phosphorus Magnesium Ferritin AST Lactate Dehydrogenase C-Reactive Protein NT-Pro-B Natriuret Pep Albumin Triglycerides Urine WBC (Auto) Urine Creatinine Coronavirus (PCR) 02/27/21 02/27/21 02/27/21 04:57 04:57 04:57 WBC RBC Hgb Hct RDW Plt Count Seg Neuts % (Manual) Lymphocytes % (Manual) Monocytes % (Manual) Seg Neutrophils # Man Lymphocytes # (Manual) Monocytes # (Manual) D-Dimer 5013.37 H ABG pH POC ABG pCO2 POC ABG pO2 ABG pO2 ABG HCO3 ABG O2 Saturation ABG Base Excess ABG Hemoglobin ABG Oxyhemoglobin Oxyhemoglobin Carboxyhemoglobin Sodium Potassium Chloride Carbon Dioxide BUN 23 H Creatinine 0.5 L Glucose 113 H POC Glucose Lactic Acid Calcium Phosphorus Magnesium Ferritin 1272.0 H AST Lactate Dehydrogenase 438 H C-Reactive Protein 5.80 H NT-Pro-B Natriuret Pep Albumin Triglycerides Urine WBC (Auto) Urine Creatinine Coronavirus (PCR) 02/27/21 02/27/21 02/28/21 17:53 21:12 07:40 WBC RBC Hgb Hct RDW Plt Count Seg Neuts % (Manual) Lymphocytes % (Manual) Monocytes % (Manual) Seg Neutrophils # Man Lymphocytes # (Manual) Monocytes # (Manual) D-Dimer ABG pH POC ABG pCO2 POC ABG pO2 ABG pO2 ABG HCO3 ABG O2 Saturation ABG Base Excess ABG Hemoglobin ABG Oxyhemoglobin Oxyhemoglobin Carboxyhemoglobin Sodium Potassium Chloride Carbon Dioxide BUN Creatinine Glucose POC Glucose 159 H 112 H 123 H Lactic Acid Calcium Phosphorus Magnesium Ferritin AST Lactate Dehydrogenase C-Reactive Protein NT-Pro-B Natriuret Pep Albumin Triglycerides Urine WBC (Auto) Urine Creatinine Coronavirus (PCR) 02/28/21 02/28/21 02/28/21 11:42 16:20 22:26 WBC RBC Hgb Hct RDW Plt Count Seg Neuts % (Manual) Lymphocytes % (Manual) Monocytes % (Manual) Seg Neutrophils # Man Lymphocytes # (Manual) Monocytes # (Manual) D-Dimer ABG pH POC ABG pCO2 POC ABG pO2 ABG pO2 ABG HCO3 ABG O2 Saturation ABG Base Excess ABG Hemoglobin ABG Oxyhemoglobin Oxyhemoglobin Carboxyhemoglobin Sodium Potassium Chloride Carbon Dioxide BUN Creatinine Glucose POC Glucose 112 H 138 H 129 H Lactic Acid Calcium Phosphorus Magnesium Ferritin AST Lactate Dehydrogenase C-Reactive Protein NT-Pro-B Natriuret Pep Albumin Triglycerides Urine WBC (Auto) Urine Creatinine Coronavirus (PCR) 03/01/21 03/01/21 03/01/21 05:12 05:12 05:12 WBC 15.0 H RBC 5.05 H Hgb Hct 44.7 H RDW Plt Count Seg Neuts % (Manual) 71.0 H Lymphocytes % (Manual) 11.0 L Monocytes % (Manual) 12.0 H Seg Neutrophils # Man 10.7 H Lymphocytes # (Manual) Monocytes # (Manual) 1.8 H D-Dimer 3469.99 H ABG pH POC ABG pCO2 POC ABG pO2 ABG pO2 ABG HCO3 ABG O2 Saturation ABG Base Excess ABG Hemoglobin ABG Oxyhemoglobin Oxyhemoglobin Carboxyhemoglobin Sodium Potassium Chloride 97.3 L Carbon Dioxide BUN Creatinine 0.5 L Glucose 115 H POC Glucose Lactic Acid Calcium Phosphorus Magnesium Ferritin AST Lactate Dehydrogenase 385 H C-Reactive Protein 11.20 H NT-Pro-B Natriuret Pep Albumin 2.8 L Triglycerides Urine WBC (Auto) Urine Creatinine Coronavirus (PCR) 03/01/21 03/01/21 03/01/21 05:12 07:30 11:42 WBC RBC Hgb Hct RDW Plt Count Seg Neuts % (Manual) Lymphocytes % (Manual) Monocytes % (Manual) Seg Neutrophils # Man Lymphocytes # (Manual) Monocytes # (Manual) D-Dimer ABG pH POC ABG pCO2 POC ABG pO2 ABG pO2 ABG HCO3 ABG O2 Saturation ABG Base Excess ABG Hemoglobin ABG Oxyhemoglobin Oxyhemoglobin Carboxyhemoglobin Sodium Potassium Chloride Carbon Dioxide BUN Creatinine Glucose POC Glucose 130 H 143 H Lactic Acid Calcium Phosphorus Magnesium Ferritin 1526.0 H AST Lactate Dehydrogenase C-Reactive Protein NT-Pro-B Natriuret Pep Albumin Triglycerides Urine WBC (Auto) Urine Creatinine Coronavirus (PCR) 03/01/21 03/01/21 03/01/21 15:28 17:53 21:16 WBC RBC Hgb Hct RDW Plt Count Seg Neuts % (Manual) Lymphocytes % (Manual) Monocytes % (Manual) Seg Neutrophils # Man Lymphocytes # (Manual) Monocytes # (Manual) D-Dimer ABG pH POC ABG pCO2 POC ABG pO2 ABG pO2 ABG HCO3 ABG O2 Saturation ABG Base Excess ABG Hemoglobin ABG Oxyhemoglobin Oxyhemoglobin Carboxyhemoglobin Sodium Potassium Chloride Carbon Dioxide BUN Creatinine Glucose POC Glucose 138 H 120 H 157 H Lactic Acid Calcium Phosphorus Magnesium Ferritin AST Lactate Dehydrogenase C-Reactive Protein NT-Pro-B Natriuret Pep Albumin Triglycerides Urine WBC (Auto) Urine Creatinine Coronavirus (PCR) 03/01/21 03/02/21 03/02/21 22:07 07:44 11:40 WBC RBC Hgb Hct RDW Plt Count Seg Neuts % (Manual) Lymphocytes % (Manual) Monocytes % (Manual) Seg Neutrophils # Man Lymphocytes # (Manual) Monocytes # (Manual) D-Dimer ABG pH POC ABG pCO2 POC ABG pO2 ABG pO2 35.9 L* ABG HCO3 31.2 H ABG O2 Saturation 68.0 L ABG Base Excess 6.1 H ABG Hemoglobin ABG Oxyhemoglobin Oxyhemoglobin 66.1 L Carboxyhemoglobin Sodium Potassium Chloride Carbon Dioxide BUN Creatinine Glucose POC Glucose 125 H 203 H Lactic Acid Calcium Phosphorus Magnesium Ferritin AST Lactate Dehydrogenase C-Reactive Protein NT-Pro-B Natriuret Pep Albumin Triglycerides Urine WBC (Auto) Urine Creatinine Coronavirus (PCR) 03/02/21 03/02/21 03/02/21 12:13 13:00 17:15 WBC RBC Hgb Hct RDW Plt Count Seg Neuts % (Manual) Lymphocytes % (Manual) Monocytes % (Manual) Seg Neutrophils # Man Lymphocytes # (Manual) Monocytes # (Manual) D-Dimer ABG pH POC ABG pCO2 POC ABG pO2 ABG pO2 36.0 L* ABG HCO3 29.5 H ABG O2 Saturation 68.7 L ABG Base Excess 4.7 H ABG Hemoglobin ABG Oxyhemoglobin Oxyhemoglobin 66.8 L Carboxyhemoglobin Sodium Potassium Chloride Carbon Dioxide BUN Creatinine Glucose POC Glucose 130 H 126 H Lactic Acid Calcium Phosphorus Magnesium Ferritin AST Lactate Dehydrogenase C-Reactive Protein NT-Pro-B Natriuret Pep Albumin Triglycerides Urine WBC (Auto) Urine Creatinine Coronavirus (PCR) 03/02/21 03/03/21 03/03/21 21:45 08:02 10:05 WBC 19.2 H RBC Hgb Hct 44.9 H RDW Plt Count Seg Neuts % (Manual) 85.0 H Lymphocytes % (Manual) 7.0 L Monocytes % (Manual) Seg Neutrophils # Man 16.3 H Lymphocytes # (Manual) Monocytes # (Manual) 1.2 H D-Dimer ABG pH POC ABG pCO2 POC ABG pO2 ABG pO2 ABG HCO3 ABG O2 Saturation ABG Base Excess ABG Hemoglobin ABG Oxyhemoglobin Oxyhemoglobin Carboxyhemoglobin Sodium Potassium Chloride Carbon Dioxide BUN Creatinine Glucose POC Glucose 113 H 128 H Lactic Acid Calcium Phosphorus Magnesium Ferritin AST Lactate Dehydrogenase C-Reactive Protein NT-Pro-B Natriuret Pep Albumin Triglycerides Urine WBC (Auto) Urine Creatinine Coronavirus (PCR) 03/03/21 03/03/21 03/03/21 10:05 12:45 16:31 WBC RBC Hgb Hct RDW Plt Count Seg Neuts % (Manual) Lymphocytes % (Manual) Monocytes % (Manual) Seg Neutrophils # Man Lymphocytes # (Manual) Monocytes # (Manual) D-Dimer ABG pH POC ABG pCO2 POC ABG pO2 ABG pO2 47.7 L ABG HCO3 31.5 H ABG O2 Saturation 82.5 L ABG Base Excess 5.6 H ABG Hemoglobin ABG Oxyhemoglobin Oxyhemoglobin 80.4 L Carboxyhemoglobin Sodium Potassium Chloride 97.8 L Carbon Dioxide BUN 23 H Creatinine Glucose 141 H POC Glucose 126 H Lactic Acid Calcium Phosphorus Magnesium Ferritin AST Lactate Dehydrogenase C-Reactive Protein NT-Pro-B Natriuret Pep Albumin 3.2 L Triglycerides Urine WBC (Auto) Urine Creatinine Coronavirus (PCR) 03/03/21 03/04/21 03/04/21 20:52 07:24 11:04 WBC RBC Hgb Hct RDW Plt Count Seg Neuts % (Manual) Lymphocytes % (Manual) Monocytes % (Manual) Seg Neutrophils # Man Lymphocytes # (Manual) Monocytes # (Manual) D-Dimer ABG pH POC ABG pCO2 POC ABG pO2 ABG pO2 ABG HCO3 ABG O2 Saturation ABG Base Excess ABG Hemoglobin ABG Oxyhemoglobin Oxyhemoglobin Carboxyhemoglobin Sodium Potassium Chloride Carbon Dioxide BUN Creatinine Glucose POC Glucose 152 H 126 H 142 H Lactic Acid Calcium Phosphorus Magnesium Ferritin AST Lactate Dehydrogenase C-Reactive Protein NT-Pro-B Natriuret Pep Albumin Triglycerides Urine WBC (Auto) Urine Creatinine Coronavirus (PCR) 03/04/21 03/04/21 03/04/21 11:05 15:33 21:12 WBC RBC Hgb Hct RDW Plt Count Seg Neuts % (Manual) Lymphocytes % (Manual) Monocytes % (Manual) Seg Neutrophils # Man Lymphocytes # (Manual) Monocytes # (Manual) D-Dimer ABG pH POC ABG pCO2 POC ABG pO2 ABG pO2 ABG HCO3 ABG O2 Saturation ABG Base Excess ABG Hemoglobin ABG Oxyhemoglobin Oxyhemoglobin Carboxyhemoglobin Sodium Potassium Chloride Carbon Dioxide BUN 34 H Creatinine Glucose 143 H POC Glucose 114 H 180 H Lactic Acid Calcium Phosphorus Magnesium Ferritin AST Lactate Dehydrogenase C-Reactive Protein NT-Pro-B Natriuret Pep Albumin Triglycerides Urine WBC (Auto) Urine Creatinine Coronavirus (PCR) 03/04/21 03/05/21 03/05/21 21:30 07:51 10:10 WBC 17.8 H RBC Hgb 14.5 H Hct 45.8 H RDW 15.3 H Plt Count 446 H Seg Neuts % (Manual) 77.0 H Lymphocytes % (Manual) 12.0 L Monocytes % (Manual) Seg Neutrophils # Man 13.7 H Lymphocytes # (Manual) Monocytes # (Manual) 0.9 H D-Dimer ABG pH 7.473 H POC ABG pCO2 POC ABG pO2 ABG pO2 34.1 L* ABG HCO3 29.7 H ABG O2 Saturation 66.4 L ABG Base Excess 5.6 H ABG Hemoglobin ABG Oxyhemoglobin Oxyhemoglobin 64.9 L Carboxyhemoglobin Sodium Potassium Chloride Carbon Dioxide BUN Creatinine Glucose POC Glucose 144 H Lactic Acid Calcium Phosphorus Magnesium Ferritin AST Lactate Dehydrogenase C-Reactive Protein NT-Pro-B Natriuret Pep Albumin Triglycerides Urine WBC (Auto) Urine Creatinine Coronavirus (PCR) 03/05/21 03/05/21 03/05/21 10:10 11:41 12:23 WBC RBC Hgb Hct RDW Plt Count Seg Neuts % (Manual) Lymphocytes % (Manual) Monocytes % (Manual) Seg Neutrophils # Man Lymphocytes # (Manual) Monocytes # (Manual) D-Dimer ABG pH 7.226 L POC ABG pCO2 POC ABG pO2 ABG pO2 50.5 L ABG HCO3 32.8 H ABG O2 Saturation 73.6 L ABG Base Excess ABG Hemoglobin 18.2 H ABG Oxyhemoglobin Oxyhemoglobin 71.8 L Carboxyhemoglobin Sodium Potassium 3.5 L Chloride Carbon Dioxide BUN 51 H Creatinine Glucose 217 H POC Glucose 124 H Lactic Acid Calcium Phosphorus Magnesium Ferritin AST Lactate Dehydrogenase C-Reactive Protein NT-Pro-B Natriuret Pep Albumin 3.1 L Triglycerides Urine WBC (Auto) Urine Creatinine Coronavirus (PCR) 03/05/21 03/05/21 03/06/21 16:40 22:39 00:37 WBC RBC Hgb Hct RDW Plt Count Seg Neuts % (Manual) Lymphocytes % (Manual) Monocytes % (Manual) Seg Neutrophils # Man Lymphocytes # (Manual) Monocytes # (Manual) D-Dimer ABG pH POC ABG pCO2 POC ABG pO2 ABG pO2 ABG HCO3 ABG O2 Saturation ABG Base Excess ABG Hemoglobin ABG Oxyhemoglobin Oxyhemoglobin Carboxyhemoglobin Sodium Potassium Chloride Carbon Dioxide BUN Creatinine Glucose POC Glucose 138 H 139 H 126 H Lactic Acid Calcium Phosphorus Magnesium Ferritin AST Lactate Dehydrogenase C-Reactive Protein NT-Pro-B Natriuret Pep Albumin Triglycerides Urine WBC (Auto) Urine Creatinine Coronavirus (PCR) 03/06/21 03/06/21 03/06/21 04:25 06:13 06:13 WBC 18.4 H RBC Hgb Hct RDW 15.3 H Plt Count Seg Neuts % (Manual) Lymphocytes % (Manual) Monocytes % (Manual) Seg Neutrophils # Man Lymphocytes # (Manual) Monocytes # (Manual) D-Dimer ABG pH 7.028 L* POC ABG pCO2 POC ABG pO2 ABG pO2 ABG HCO3 33.8 H ABG O2 Saturation 92.5 L ABG Base Excess ABG Hemoglobin ABG Oxyhemoglobin Oxyhemoglobin 90.6 L Carboxyhemoglobin Sodium 149 H Potassium Chloride 107.2 H Carbon Dioxide BUN 62 H Creatinine 1.9 H D Glucose 140 H POC Glucose Lactic Acid Calcium 7.7 L D Phosphorus 10.70 H Magnesium 2.40 H Ferritin AST Lactate Dehydrogenase C-Reactive Protein NT-Pro-B Natriuret Pep Albumin Triglycerides Urine WBC (Auto) Urine Creatinine Coronavirus (PCR) 03/06/21 03/06/21 03/06/21 06:13 09:00 12:00 WBC RBC Hgb Hct RDW Plt Count Seg Neuts % (Manual) Lymphocytes % (Manual) Monocytes % (Manual) Seg Neutrophils # Man Lymphocytes # (Manual) Monocytes # (Manual) D-Dimer ABG pH POC ABG pCO2 POC ABG pO2 ABG pO2 ABG HCO3 ABG O2 Saturation ABG Base Excess ABG Hemoglobin ABG Oxyhemoglobin Oxyhemoglobin Carboxyhemoglobin Sodium Potassium Chloride Carbon Dioxide BUN Creatinine Glucose POC Glucose 155 H 122 H Lactic Acid Calcium Phosphorus Magnesium Ferritin AST Lactate Dehydrogenase C-Reactive Protein NT-Pro-B Natriuret Pep Albumin Triglycerides Urine WBC (Auto) Urine Creatinine 247.7 H Coronavirus (PCR) 03/06/21 03/06/21 03/06/21 17:16 22:23 Unknown WBC RBC Hgb Hct RDW Plt Count Seg Neuts % (Manual) Lymphocytes % (Manual) Monocytes % (Manual) Seg Neutrophils # Man Lymphocytes # (Manual) Monocytes # (Manual) D-Dimer ABG pH 7.253 L POC ABG pCO2 POC ABG pO2 ABG pO2 66.5 L ABG HCO3 31.3 H ABG O2 Saturation 91.8 L ABG Base Excess ABG Hemoglobin 16.8 H ABG Oxyhemoglobin Oxyhemoglobin 90.1 L Carboxyhemoglobin Sodium Potassium Chloride Carbon Dioxide BUN Creatinine Glucose POC Glucose 123 H 123 H Lactic Acid Calcium Phosphorus Magnesium Ferritin AST Lactate Dehydrogenase C-Reactive Protein NT-Pro-B Natriuret Pep Albumin Triglycerides Urine WBC (Auto) Urine Creatinine Coronavirus (PCR) 03/07/21 03/07/21 03/07/21 00:36 04:05 04:05 WBC 18.0 H RBC Hgb Hct RDW Plt Count Seg Neuts % (Manual) Lymphocytes % (Manual) Monocytes % (Manual) Seg Neutrophils # Man Lymphocytes # (Manual) Monocytes # (Manual) D-Dimer ABG pH POC ABG pCO2 POC ABG pO2 ABG pO2 ABG HCO3 ABG O2 Saturation ABG Base Excess ABG Hemoglobin ABG Oxyhemoglobin Oxyhemoglobin Carboxyhemoglobin Sodium Potassium Chloride Carbon Dioxide BUN 75 H Creatinine 1.5 H Glucose 113 H POC Glucose 121 H Lactic Acid Calcium Phosphorus Magnesium Ferritin AST Lactate Dehydrogenase C-Reactive Protein NT-Pro-B Natriuret Pep Albumin Triglycerides Urine WBC (Auto) Urine Creatinine Coronavirus (PCR) 03/07/21 03/07/21 03/07/21 04:05 04:49 05:38 WBC RBC Hgb Hct RDW Plt Count Seg Neuts % (Manual) Lymphocytes % (Manual) Monocytes % (Manual) Seg Neutrophils # Man Lymphocytes # (Manual) Monocytes # (Manual) D-Dimer ABG pH 7.280 L POC ABG pCO2 POC ABG pO2 ABG pO2 ABG HCO3 29.3 H ABG O2 Saturation ABG Base Excess ABG Hemoglobin ABG Oxyhemoglobin Oxyhemoglobin 94.4 L Carboxyhemoglobin Sodium Potassium Chloride Carbon Dioxide BUN Creatinine Glucose POC Glucose 112 H Lactic Acid Calcium Phosphorus Magnesium Ferritin AST Lactate Dehydrogenase C-Reactive Protein NT-Pro-B Natriuret Pep Albumin Triglycerides 171 H Urine WBC (Auto) Urine Creatinine Coronavirus (PCR) 03/07/21 03/07/21 03/08/21 12:13 18:13 04:30 WBC 12.5 H RBC Hgb Hct RDW Plt Count Seg Neuts % (Manual) Lymphocytes % (Manual) Monocytes % (Manual) Seg Neutrophils # Man Lymphocytes # (Manual) Monocytes # (Manual) D-Dimer ABG pH POC ABG pCO2 POC ABG pO2 ABG pO2 ABG HCO3 ABG O2 Saturation ABG Base Excess ABG Hemoglobin ABG Oxyhemoglobin Oxyhemoglobin Carboxyhemoglobin Sodium Potassium Chloride Carbon Dioxide BUN Creatinine Glucose POC Glucose 113 H 111 H Lactic Acid Calcium Phosphorus Magnesium Ferritin AST Lactate Dehydrogenase C-Reactive Protein NT-Pro-B Natriuret Pep Albumin Triglycerides Urine WBC (Auto) Urine Creatinine Coronavirus (PCR) 03/08/21 03/08/21 03/08/21 04:30 05:04 10:00 WBC RBC Hgb Hct RDW Plt Count Seg Neuts % (Manual) Lymphocytes % (Manual) Monocytes % (Manual) Seg Neutrophils # Man Lymphocytes # (Manual) Monocytes # (Manual) D-Dimer ABG pH POC ABG pCO2 POC ABG pO2 ABG pO2 73.8 L ABG HCO3 28.9 H ABG O2 Saturation ABG Base Excess ABG Hemoglobin 11.0 L ABG Oxyhemoglobin Oxyhemoglobin 93.4 L Carboxyhemoglobin Sodium Potassium Chloride Carbon Dioxide BUN 69 H Creatinine Glucose 107 H POC Glucose 111 H Lactic Acid Calcium Phosphorus Magnesium Ferritin AST Lactate Dehydrogenase C-Reactive Protein NT-Pro-B Natriuret Pep Albumin Triglycerides Urine WBC (Auto) Urine Creatinine Coronavirus (PCR) 03/08/21 03/08/21 03/09/21 17:09 21:35 04:00 WBC 11.4 H RBC 3.21 L Hgb 9.4 L Hct 29.6 L RDW Plt Count Seg Neuts % (Manual) Lymphocytes % (Manual) Monocytes % (Manual) Seg Neutrophils # Man Lymphocytes # (Manual) Monocytes # (Manual) D-Dimer ABG pH POC ABG pCO2 POC ABG pO2 ABG pO2 ABG HCO3 ABG O2 Saturation ABG Base Excess ABG Hemoglobin ABG Oxyhemoglobin Oxyhemoglobin Carboxyhemoglobin Sodium Potassium Chloride Carbon Dioxide BUN Creatinine Glucose POC Glucose 114 H 128 H Lactic Acid Calcium Phosphorus Magnesium Ferritin AST Lactate Dehydrogenase C-Reactive Protein NT-Pro-B Natriuret Pep Albumin Triglycerides Urine WBC (Auto) Urine Creatinine Coronavirus (PCR) 03/09/21 03/09/21 03/09/21 04:00 04:11 11:25 WBC RBC Hgb Hct RDW Plt Count Seg Neuts % (Manual) Lymphocytes % (Manual) Monocytes % (Manual) Seg Neutrophils # Man Lymphocytes # (Manual) Monocytes # (Manual) D-Dimer ABG pH 7.260 L POC ABG pCO2 POC ABG pO2 ABG pO2 ABG HCO3 30.5 H ABG O2 Saturation ABG Base Excess ABG Hemoglobin 9.4 L ABG Oxyhemoglobin Oxyhemoglobin 93.9 L Carboxyhemoglobin Sodium Potassium Chloride Carbon Dioxide BUN 74 H Creatinine 1.3 H Glucose 117 H POC Glucose 122 H Lactic Acid Calcium Phosphorus Magnesium Ferritin AST Lactate Dehydrogenase C-Reactive Protein NT-Pro-B Natriuret Pep Albumin Triglycerides Urine WBC (Auto) Urine Creatinine Coronavirus (PCR) 03/09/21 03/09/21 03/09/21 18:02 21:04 23:30 WBC RBC Hgb Hct RDW Plt Count Seg Neuts % (Manual) Lymphocytes % (Manual) Monocytes % (Manual) Seg Neutrophils # Man Lymphocytes # (Manual) Monocytes # (Manual) D-Dimer ABG pH POC ABG pCO2 POC ABG pO2 ABG pO2 ABG HCO3 ABG O2 Saturation ABG Base Excess ABG Hemoglobin ABG Oxyhemoglobin Oxyhemoglobin Carboxyhemoglobin Sodium Potassium Chloride Carbon Dioxide BUN Creatinine Glucose POC Glucose 106 H 116 H 109 H Lactic Acid Calcium Phosphorus Magnesium Ferritin AST Lactate Dehydrogenase C-Reactive Protein NT-Pro-B Natriuret Pep Albumin Triglycerides Urine WBC (Auto) Urine Creatinine Coronavirus (PCR) 03/10/21 03/10/21 03/10/21 02:43 04:00 04:00 WBC 11.6 H RBC 3.30 L Hgb 9.7 L Hct RDW 16.1 H Plt Count Seg Neuts % (Manual) Lymphocytes % (Manual) Monocytes % (Manual) Seg Neutrophils # Man Lymphocytes # (Manual) Monocytes # (Manual) D-Dimer ABG pH 7.268 L POC ABG pCO2 POC ABG pO2 ABG pO2 113.4 H ABG HCO3 31.9 H ABG O2 Saturation ABG Base Excess 3.6 H ABG Hemoglobin 9.9 L ABG Oxyhemoglobin Oxyhemoglobin Carboxyhemoglobin Sodium Potassium Chloride Carbon Dioxide BUN 74 H Creatinine Glucose 132 H POC Glucose Lactic Acid Calcium Phosphorus Magnesium Ferritin AST Lactate Dehydrogenase C-Reactive Protein NT-Pro-B Natriuret Pep Albumin Triglycerides Urine WBC (Auto) Urine Creatinine Coronavirus (PCR) 0103/10/21 03/10/21 05:08 11:29 16:23 WBC RBC Hgb Hct RDW Plt Count Seg Neuts % (Manual) Lymphocytes % (Manual) Monocytes % (Manual) Seg Neutrophils # Man Lymphocytes # (Manual) Monocytes # (Manual) D-Dimer ABG pH POC ABG pCO2 POC ABG pO2 ABG pO2 ABG HCO3 ABG O2 Saturation ABG Base Excess ABG Hemoglobin ABG Oxyhemoglobin Oxyhemoglobin Carboxyhemoglobin Sodium Potassium Chloride Carbon Dioxide BUN Creatinine Glucose POC Glucose 117 H 128 H 116 H Lactic Acid Calcium Phosphorus Magnesium Ferritin AST Lactate Dehydrogenase C-Reactive Protein NT-Pro-B Natriuret Pep Albumin Triglycerides Urine WBC (Auto) Urine Creatinine Coronavirus (PCR) 03/10/21 03/10/21 03/11/21 21:15 23:39 03:40 WBC RBC Hgb Hct RDW Plt Count Seg Neuts % (Manual) Lymphocytes % (Manual) Monocytes % (Manual) Seg Neutrophils # Man Lymphocytes # (Manual) Monocytes # (Manual) D-Dimer ABG pH 7.247 L POC ABG pCO2 POC ABG pO2 ABG pO2 123.9 H ABG HCO3 34.4 H ABG O2 Saturation ABG Base Excess 5.4 H ABG Hemoglobin 9.7 L ABG Oxyhemoglobin Oxyhemoglobin Carboxyhemoglobin Sodium Potassium Chloride Carbon Dioxide BUN Creatinine Glucose POC Glucose 123 H 124 H Lactic Acid Calcium Phosphorus Magnesium Ferritin AST Lactate Dehydrogenase C-Reactive Protein NT-Pro-B Natriuret Pep Albumin Triglycerides Urine WBC (Auto) Urine Creatinine Coronavirus (PCR) 03/11/21 03/11/21 03/11/21 04:00 04:00 05:32 WBC 12.1 H RBC 3.30 L Hgb 9.5 L Hct RDW 15.5 H Plt Count Seg Neuts % (Manual) Lymphocytes % (Manual) Monocytes % (Manual) Seg Neutrophils # Man Lymphocytes # (Manual) Monocytes # (Manual) D-Dimer ABG pH POC ABG pCO2 POC ABG pO2 ABG pO2 ABG HCO3 ABG O2 Saturation ABG Base Excess ABG Hemoglobin ABG Oxyhemoglobin Oxyhemoglobin Carboxyhemoglobin Sodium 148 H Potassium 5.7 H Chloride 107.7 H Carbon Dioxide BUN 63 H Creatinine Glucose 135 H POC Glucose 147 H Lactic Acid Calcium Phosphorus 4.70 H Magnesium 3.20 H Ferritin AST Lactate Dehydrogenase C-Reactive Protein NT-Pro-B Natriuret Pep Albumin Triglycerides Urine WBC (Auto) Urine Creatinine Coronavirus (PCR) 03/11/21 03/11/21 03/11/21 11:35 17:50 21:29 WBC RBC Hgb Hct RDW Plt Count Seg Neuts % (Manual) Lymphocytes % (Manual) Monocytes % (Manual) Seg Neutrophils # Man Lymphocytes # (Manual) Monocytes # (Manual) D-Dimer ABG pH POC ABG pCO2 POC ABG pO2 ABG pO2 ABG HCO3 ABG O2 Saturation ABG Base Excess ABG Hemoglobin ABG Oxyhemoglobin Oxyhemoglobin Carboxyhemoglobin Sodium Potassium Chloride Carbon Dioxide BUN Creatinine Glucose POC Glucose 136 H 109 H 114 H Lactic Acid Calcium Phosphorus Magnesium Ferritin AST Lactate Dehydrogenase C-Reactive Protein NT-Pro-B Natriuret Pep Albumin Triglycerides Urine WBC (Auto) Urine Creatinine Coronavirus (PCR) 03/12/21 03/12/21 03/12/21 00:43 04:06 04:30 WBC 11.2 H RBC 3.16 L Hgb 9.1 L Hct 29.5 L RDW 16.1 H Plt Count Seg Neuts % (Manual) Lymphocytes % (Manual) Monocytes % (Manual) Seg Neutrophils # Man Lymphocytes # (Manual) Monocytes # (Manual) D-Dimer ABG pH 7.261 L POC ABG pCO2 79.6 H POC ABG pO2 ABG pO2 ABG HCO3 ABG O2 Saturation ABG Base Excess ABG Hemoglobin 9.64 L ABG Oxyhemoglobin Oxyhemoglobin Carboxyhemoglobin Sodium Potassium Chloride Carbon Dioxide BUN Creatinine Glucose POC Glucose 112 H Lactic Acid Calcium Phosphorus Magnesium Ferritin AST Lactate Dehydrogenase C-Reactive Protein NT-Pro-B Natriuret Pep Albumin Triglycerides Urine WBC (Auto) Urine Creatinine Coronavirus (PCR) 03/12/21 03/12/21 03/12/21 04:30 05:24 09:16 WBC RBC Hgb Hct RDW Plt Count Seg Neuts % (Manual) Lymphocytes % (Manual) Monocytes % (Manual) Seg Neutrophils # Man Lymphocytes # (Manual) Monocytes # (Manual) D-Dimer ABG pH POC ABG pCO2 POC ABG pO2 ABG pO2 ABG HCO3 ABG O2 Saturation ABG Base Excess ABG Hemoglobin ABG Oxyhemoglobin Oxyhemoglobin Carboxyhemoglobin Sodium 147 H Potassium 6.2 H* Chloride Carbon Dioxide 33 H BUN 61 H Creatinine Glucose 132 H POC Glucose 122 H 117 H Lactic Acid Calcium Phosphorus Magnesium Ferritin AST Lactate Dehydrogenase C-Reactive Protein NT-Pro-B Natriuret Pep Albumin Triglycerides Urine WBC (Auto) Urine Creatinine Coronavirus (PCR) 03/12/21 03/12/21 03/12/21 10:12 12:51 18:29 WBC RBC Hgb Hct RDW Plt Count Seg Neuts % (Manual) Lymphocytes % (Manual) Monocytes % (Manual) Seg Neutrophils # Man Lymphocytes # (Manual) Monocytes # (Manual) D-Dimer ABG pH POC ABG pCO2 POC ABG pO2 ABG pO2 ABG HCO3 ABG O2 Saturation ABG Base Excess ABG Hemoglobin ABG Oxyhemoglobin Oxyhemoglobin Carboxyhemoglobin Sodium Potassium Chloride Carbon Dioxide BUN Creatinine Glucose POC Glucose 134 H 117 H 144 H Lactic Acid Calcium Phosphorus Magnesium Ferritin AST Lactate Dehydrogenase C-Reactive Protein NT-Pro-B Natriuret Pep Albumin Triglycerides Urine WBC (Auto) Urine Creatinine Coronavirus (PCR) 03/12/21 03/13/21 03/13/21 21:14 00:01 05:38 WBC RBC Hgb Hct RDW Plt Count Seg Neuts % (Manual) Lymphocytes % (Manual) Monocytes % (Manual) Seg Neutrophils # Man Lymphocytes # (Manual) Monocytes # (Manual) D-Dimer ABG pH 7.238 L POC ABG pCO2 POC ABG pO2 ABG pO2 94.9 H ABG HCO3 34.9 H ABG O2 Saturation ABG Base Excess 5.7 H ABG Hemoglobin 10.0 L ABG Oxyhemoglobin Oxyhemoglobin 94.4 L Carboxyhemoglobin Sodium Potassium Chloride Carbon Dioxide BUN Creatinine Glucose POC Glucose 144 H 131 H Lactic Acid Calcium Phosphorus Magnesium Ferritin AST Lactate Dehydrogenase C-Reactive Protein NT-Pro-B Natriuret Pep Albumin Triglycerides Urine WBC (Auto) Urine Creatinine Coronavirus (PCR) 03/13/21 03/13/21 03/13/21 06:14 07:00 07:00 WBC 11.3 H RBC 3.14 L Hgb 8.8 L Hct 29.3 L RDW 15.8 H Plt Count Seg Neuts % (Manual) Lymphocytes % (Manual) Monocytes % (Manual) Seg Neutrophils # Man Lymphocytes # (Manual) Monocytes # (Manual) D-Dimer ABG pH POC ABG pCO2 POC ABG pO2 ABG pO2 ABG HCO3 ABG O2 Saturation ABG Base Excess ABG Hemoglobin ABG Oxyhemoglobin Oxyhemoglobin Carboxyhemoglobin Sodium 150 H Potassium Chloride 109.3 H Carbon Dioxide BUN 66 H Creatinine Glucose 115 H POC Glucose 107 H Lactic Acid Calcium Phosphorus 5.80 H Magnesium 3.00 H Ferritin AST Lactate Dehydrogenase C-Reactive Protein NT-Pro-B Natriuret Pep Albumin Triglycerides Urine WBC (Auto) Urine Creatinine Coronavirus (PCR) 03/13/21 03/13/21 03/14/21 11:41 23:38 03:44 WBC RBC Hgb Hct RDW Plt Count Seg Neuts % (Manual) Lymphocytes % (Manual) Monocytes % (Manual) Seg Neutrophils # Man Lymphocytes # (Manual) Monocytes # (Manual) D-Dimer ABG pH 7.306 L POC ABG pCO2 POC ABG pO2 ABG pO2 75.4 L ABG HCO3 36.7 H ABG O2 Saturation ABG Base Excess 8.9 H ABG Hemoglobin 8.2 L ABG Oxyhemoglobin Oxyhemoglobin 93.6 L Carboxyhemoglobin Sodium Potassium Chloride Carbon Dioxide BUN Creatinine Glucose POC Glucose 116 H 119 H Lactic Acid Calcium Phosphorus Magnesium Ferritin AST Lactate Dehydrogenase C-Reactive Protein NT-Pro-B Natriuret Pep Albumin Triglycerides Urine WBC (Auto) Urine Creatinine Coronavirus (PCR) 03/14/21 03/14/21 03/14/21 05:29 07:17 07:17 WBC 12.7 H RBC 3.05 L Hgb 8.8 L Hct 28.5 L RDW 15.3 H Plt Count Seg Neuts % (Manual) Lymphocytes % (Manual) Monocytes % (Manual) Seg Neutrophils # Man Lymphocytes # (Manual) Monocytes # (Manual) D-Dimer ABG pH POC ABG pCO2 POC ABG pO2 ABG pO2 ABG HCO3 ABG O2 Saturation ABG Base Excess ABG Hemoglobin ABG Oxyhemoglobin Oxyhemoglobin Carboxyhemoglobin Sodium Potassium Chloride Carbon Dioxide 33 H BUN 61 H Creatinine Glucose 121 H POC Glucose 122 H Lactic Acid Calcium Phosphorus 4.70 H Magnesium 2.80 H Ferritin AST Lactate Dehydrogenase C-Reactive Protein NT-Pro-B Natriuret Pep Albumin Triglycerides Urine WBC (Auto) Urine Creatinine Coronavirus (PCR) 03/14/21 03/14/21 03/15/21 10:59 18:09 00:05 WBC RBC Hgb Hct RDW Plt Count Seg Neuts % (Manual) Lymphocytes % (Manual) Monocytes % (Manual) Seg Neutrophils # Man Lymphocytes # (Manual) Monocytes # (Manual) D-Dimer ABG pH POC ABG pCO2 POC ABG pO2 ABG pO2 ABG HCO3 ABG O2 Saturation ABG Base Excess ABG Hemoglobin ABG Oxyhemoglobin Oxyhemoglobin Carboxyhemoglobin Sodium Potassium Chloride Carbon Dioxide BUN Creatinine Glucose POC Glucose 114 H 118 H 111 H Lactic Acid Calcium Phosphorus Magnesium Ferritin AST Lactate Dehydrogenase C-Reactive Protein NT-Pro-B Natriuret Pep Albumin Triglycerides Urine WBC (Auto) Urine Creatinine Coronavirus (PCR) 03/15/21 03/15/21 03/15/21 04:00 04:30 04:30 WBC 13.5 H RBC 2.99 L Hgb 8.4 L Hct 27.9 L RDW 15.6 H Plt Count Seg Neuts % (Manual) Lymphocytes % (Manual) Monocytes % (Manual) Seg Neutrophils # Man Lymphocytes # (Manual) Monocytes # (Manual) D-Dimer ABG pH 7.237 L POC ABG pCO2 80.6 H POC ABG pO2 71.8 L ABG pO2 ABG HCO3 ABG O2 Saturation ABG Base Excess ABG Hemoglobin ABG Oxyhemoglobin 91.7 L Oxyhemoglobin Carboxyhemoglobin 1.6 H Sodium Potassium Chloride Carbon Dioxide 32 H BUN 68 H Creatinine Glucose 128 H POC Glucose Lactic Acid Calcium Phosphorus Magnesium Ferritin AST Lactate Dehydrogenase C-Reactive Protein NT-Pro-B Natriuret Pep Albumin Triglycerides Urine WBC (Auto) Urine Creatinine Coronavirus (PCR) 03/15/21 03/15/21 03/15/21 05:18 11:04 17:40 WBC RBC Hgb Hct RDW Plt Count Seg Neuts % (Manual) Lymphocytes % (Manual) Monocytes % (Manual) Seg Neutrophils # Man Lymphocytes # (Manual) Monocytes # (Manual) D-Dimer ABG pH POC ABG pCO2 POC ABG pO2 ABG pO2 ABG HCO3 ABG O2 Saturation ABG Base Excess ABG Hemoglobin ABG Oxyhemoglobin Oxyhemoglobin Carboxyhemoglobin Sodium Potassium Chloride Carbon Dioxide BUN Creatinine Glucose POC Glucose 111 H 120 H 114 H Lactic Acid Calcium Phosphorus Magnesium Ferritin AST Lactate Dehydrogenase C-Reactive Protein NT-Pro-B Natriuret Pep Albumin Triglycerides Urine WBC (Auto) Urine Creatinine Coronavirus (PCR) 03/15/21 03/16/21 03/16/21 23:40 04:58 05:00 WBC RBC Hgb Hct RDW Plt Count Seg Neuts % (Manual) Lymphocytes % (Manual) Monocytes % (Manual) Seg Neutrophils # Man Lymphocytes # (Manual) Monocytes # (Manual) D-Dimer ABG pH 7.279 L POC ABG pCO2 77.0 H POC ABG pO2 65.3 L ABG pO2 ABG HCO3 ABG O2 Saturation ABG Base Excess ABG Hemoglobin 9.8 L ABG Oxyhemoglobin 89.7 L Oxyhemoglobin Carboxyhemoglobin Sodium Potassium Chloride Carbon Dioxide BUN Creatinine Glucose POC Glucose 121 H Lactic Acid Calcium Phosphorus Magnesium Ferritin AST Lactate Dehydrogenase C-Reactive Protein NT-Pro-B Natriuret Pep Albumin Triglycerides 169 H Urine WBC (Auto) Urine Creatinine Coronavirus (PCR) 03/16/21 05:29 WBC RBC Hgb Hct RDW Plt Count Seg Neuts % (Manual) Lymphocytes % (Manual) Monocytes % (Manual) Seg Neutrophils # Man Lymphocytes # (Manual) Monocytes # (Manual) D-Dimer ABG pH POC ABG pCO2 POC ABG pO2 ABG pO2 ABG HCO3 ABG O2 Saturation ABG Base Excess ABG Hemoglobin ABG Oxyhemoglobin Oxyhemoglobin Carboxyhemoglobin Sodium Potassium Chloride Carbon Dioxide BUN Creatinine Glucose POC Glucose 140 H Lactic Acid Calcium Phosphorus Magnesium Ferritin AST Lactate Dehydrogenase C-Reactive Protein NT-Pro-B Natriuret Pep Albumin Triglycerides Urine WBC (Auto) Urine Creatinine Coronavirus (PCR)
[2021-03-16] MEDS: INSULIN GLARGINE 100 UNITS/ML SUB-Q SCH (22:25)
[2021-03-16] MEDS: MIDAZOLAM 100 MG in SODIUM CHLORIDE 0.9% 80 ML IV SCH (22:33)
[2021-03-17] MEDS: INSULIN LISPRO 100 UNIT/ML SUB-Q SCH ×3 (00:48→12:57)
[2021-03-17] MEDS: fentaNYL DRIP Premix 2,000 MCG/100 ML BAG IV SCH ×3 (02:44→17:56)
[2021-03-17] MEDS: FREE WATER PO SCH ×5 (04:15→22:15)
[2021-03-17 05:15] LABS: ABG Base Excess 9.5 mmol/L (-2.0-3.0); ABG HCO3 37.6 mmol/L (20.0-26.0); ABG Methemoglobin 0.6 % (0.0-1.5); ABG Oxygen Saturation 96.1 % (95.0-99.0); ABG PCO2 75.5 mm Hg; ABG PH 7.315 pH Units (7.350-7.450); ABG PO2 80.4 mm Hg (80.0-90.0)
[2021-03-17] MEDS: NORepinephrine/NS 8 MG-250 ML 8 MG/250 ML INFUS..BTL IV SCH (05:57)
[2021-03-17 09:41] LABS: Hematocrit 27.8 % (30.3-42.9); Hemoglobin 8.6 gm/dl (10.1-14.3); Mean Corpuscular HGB Conc 31 % (30-34); Mean Corpuscular Volume 92 fl (79-97); Platelet Count 404 K/mm3 (140-440); Red Blood Count 3.01 M/mm3 (3.65-5.03); Red Cell Distribution Width 15.6 % (13.2-15.2)
[2021-03-17 09:58] LABS: BUN/Creatinine Ratio 93; Blood Urea Nitrogen 74 mg/dL (7-17); Calcium 9.4 mg/dL (8.4-10.2); Hemolysis Index 11
[2021-03-17] MEDS: SERTRALINE 50 MG TAB PO SCH (10:09)
[2021-03-17] MEDS: ENOXAPARIN 100 MG/1 ML INJ SUB-Q SCH ×2 (10:09→21:04)
[2021-03-17] MEDS: FAMOTIDINE 20 MG TAB FEEDTUBE SCH ×2 (10:09→21:04)
[2021-03-17] MEDS: GABAPENTIN 400 MG CAP PO SCH ×2 (10:09→21:04)
[2021-03-17] MEDS: SENNOSIDES/DOCUSATE SODIUM 8.6/50 MG TAB FEEDTUBE SCH ×2 (10:10→21:05)
--- NOTE | 2021-03-17 11:56 | Progress Note ---
Assessment and Plan 61 y/o female with acute respiratory failure secondary to COVID 19 pneumonia. 03/17/21: fAmily to come tomorrow to likely with draw care. Continue supportive measures for now. Sat is 90 on 70% and still on 20 of PEEP. Poor prognosis. 03/16/21: Dropped FIO2 down to 70%. Keep Peep at 20. Will reach out to daughter again on Thursday to see if they have had any discussions about further plans for her mother. Continue supportive measures and continue to wean for sats >88% and PaO2 >55. Needs chemistry for the am. 03/15/21: Continue supportive measures. Continue to monitor renal function and fluid balance. May need to give a bolus today as she is back on levophed. She was on lasix daily prior to intubation. Prognosis still remains guarded to poor. Still no real success with weaning FiO2. 03/14/21: Long discussion over the phone with daughter at request of charge nurse. Updated her on her mothers current condition and lack of improvement. She states that she has been thinking about what the next steps would be for her mother. I explained to her that her vent settings are too high for trach and peg at this moment. The other option would be, knowing that her mother did not want to be intubated but rescinded her DNR at the request of the daughter, to consider comfort measures for her. The daughter states that she will speak with her Aunt (patients sister) and they will let us know. WIll continue supportive measures and attempt to wean FIO2 to at least 60%. ONce there, can start weaning PEEP if able to get there. Monitor fluids and renal function. OVerall prognosis is guarded to poor. Also discussed the very high mortality rate associated with COVID patients and mechanical ventilation. 03/13/21: K is better but looks like it may be trending up again. Continue to monitor. Continue anticoagulation. Wean FiO2 for sats >88% and PaO2>55. Goal would be to get FiO2 to at least 60% or less. Still making urine. Prognosis however remains guarded to poor. 03/12/21: K is elevated again today. No evidence of bleeding. Plateletes did drop but still good levels. Will monitor. Wean levophed as tolerated. Continues to make good urine. Guarded to poor prognosis. 03/11/21: K is elevated but renal function and urine output remains stable. Maintain current level of sedation. On Levophed, may need to give more volume. Ok with weaning FiO2 for sats >88% and or PaO2 of 55 and greater. Unable to prone at this time. Guarded prognosis. 03/08/21: Continue to monitor urine output and function. Consider more fluid today. Maintain current level of sedation. Wean FiO2 for sats >88% and or PaO2 >55. Prognosis still remains guarded. Please do not wean PEEP until FiO2 as at 45-50% 03/07/21: Continue supportive measures. Monitor urine output and function. Lab s are better today and she did put out more urine with fluid bolus so will give again today. Overall prognosis remains extremely guarded. 03/06/21: Overall clinical state is worsening. Now with difficulty ventilation and with improved ventilation comes a compromise in oxygenation. Newest concern is renal function which is worsening. If patient requires dialysis then mortality increases and prognosis worsens. If requires HD, prognosis is very very guarded to poor. 03/05/21: Added versed drip to fent and Diprovan to keep RASS at -4. Will also order precedex in the event it is needed. Repeat ABG somewhat improved but increased RR. Must watch Peak Pressures. attempting to do low lung volume protective ventilator strategy. Patient has actually been off steroids for some time. Will not restart as of yet. Unable to prone. Guarded prognosis. This discussion was had over the weekend with the daughter when I thought we would have to intubate then. Explained that vent is not therapy but only something to give her lungs time to rest, if possible to see if they can recover. Prognosis is very guarded to poor. 03/04/21: Continue supportive care between HFNC and bipap therapy. Steroids. Positive reinforcement. 03/03/21: Long discussion at bedside with patient. Today she stated that she did not want to be intubated. I attempted to call her daughter while I was in the room with the patient but no answer. She will remain full code as she has said this in the past and then revoked after speaking with the daughter ( which is why i called her again this morning). Continue bipap and monitor. Guarded prognosis. 03/02/21: Prone if able. Continue steroids. Negative fluid balance if possible. Prognosis remains very guarded 02/28/21: Prone. Steroids. Net negative fluid balance if possible. Guarded prognosis. 02/27/21: Full code status. Prone as much as possible during the day and sleep prone at night. Patient may require intubation ultimately. Guarded prognosis. 02/26/21: Prone if possible. Continue anticoagulation for DVT. Steroids. Net negative fluid balance. 02/25/21: Long discussion at bedside with patient, whom per her, she has discussed this with her daughter. She does no want an endotracheal tube. She does not want chest compression and she does not want shocks. I did not ask about vasopressors. The patient is awake and alert and oriented. This needs to be addressed by primary team as well an if confirmed, I have no problem with cosigning AND order. Continue supportive measures for now. Guarded to poor prognosis. 02/21/21: BNP normal. Still would attempt to achieve net negative fluid balance daily. Continue Remdesivir and steroids. Prone if patient willing. Follow up CTA results. Discussed with IMS, may change anticoagulation but awaiting official ready on CTA. Guareded prognosis. 02/20/21: Follow up CTA results. Will send BNP. Continue steroids and Remdesivir. Guarded prognosis. Prone if able, very pertinent to do this. 1. self proning as tolerated during the day and prone at night while sleeping 2. Steroids and Remdesivir 3. Daily net negative volume state 4. Consider checking BNP and echo to make sure no edema on this film 5. Agree with empiric anticoagulation given elevated D-Dimer Guarded prognosis. Will continue to follow. CCT 31 minutes. Subjective Date of service: 03/17/21 Principal diagnosis: COVID pneumonia Interval history: No acute events. REmains sedated. Objective Vital Signs - 12hr 03/17/21 03/17/21 03/17/21 00:00 01:00 01:30 Temperature 98.5 F Pulse Rate 85 87 81 Pulse Rate [ 83 From Monitor] Respiratory 18 17 32 H Rate Blood Pressure 100/61 99/60 90/54 O2 Sat by Pulse 88 90 Oximetry 03/17/21 03/17/21 03/17/21 02:00 02:30 03:00 Temperature Pulse Rate 86 84 87 Pulse Rate [ From Monitor] Respiratory 17 27 H 32 H Rate Blood Pressure 81/52 85/52 90/55 O2 Sat by Pulse 87 85 86 Oximetry 03/17/21 03/17/21 03/17/21 03:18 03:30 04:00 Temperature 99.7 F H Pulse Rate 88 88 Pulse Rate [ 83 From Monitor] Respiratory 32 H 30 H Rate Blood Pressure 88/53 82/47 O2 Sat by Pulse 89 89 Oximetry 03/17/21 03/17/21 03/17/21 04:30 04:48 05:00 Temperature Pulse Rate 92 H 91 H 88 Pulse Rate [ From Monitor] Respiratory 28 H 26 H Rate Blood Pressure 88/48 97/52 97/52 O2 Sat by Pulse 86 90 91 Oximetry 03/17/21 03/17/21 03/17/21 05:30 06:00 06:30 Temperature Pulse Rate 88 87 88 Pulse Rate [ From Monitor] Respiratory 32 H 30 H 28 H Rate Blood Pressure 97/55 91/50 94/58 O2 Sat by Pulse 92 92 91 Oximetry 03/17/21 03/17/21 03/17/21 07:00 07:30 08:00 Temperature 98.8 F Pulse Rate 89 87 88 Pulse Rate [ From Monitor] Respiratory 33 H 25 H 18 Rate Blood Pressure 103/53 98/57 97/54 O2 Sat by Pulse 90 90 90 Oximetry 03/17/21 03/17/21 03/17/21 08:30 09:00 09:08 Temperature Pulse Rate 86 83 87 Pulse Rate [ From Monitor] Respiratory 25 H 32 H Rate Blood Pressure 99/63 95/57 95/57 O2 Sat by Pulse 91 91 91 Oximetry Constitutional: alert, other (on hiflo) ENT: oropharynx moist Neck: supple Ascultation: Bilateral: diminished breath sounds Cardiovascular: regular rate and rhythm Gastrointestinal: normoactive bowel sounds, soft, non-tender, non-distended Integumentary: normal Extremities: no cyanosis CBC and BMP: 03/17/21 04:00 03/17/21 04:00 ABG, PT/INR, D-dimer: ABG ABG pH 7.315 pH Units (7.350-7.450) L 03/17/21 05:05 POC ABG pCO2 77.0 mmHg (32.0-48.0) H 03/16/21 04:58 ABG pCO2 75.5 mm Hg 03/17/21 05:05 POC ABG pO2 65.3 mmHg (83-108) L 03/16/21 04:58 ABG pO2 80.4 mm Hg (80.0-90.0) 03/17/21 05:05 POC ABG HCO3 35.3 03/16/21 04:58 ABG O2 Saturation 96.1 % (95.0-99.0) 03/17/21 05:05 PT/INR, D-dimer PT 13.9 Sec. (12.2-14.9) 02/17/21 14:34 INR 0.96 (0.87-1.13) 02/17/21 14:34 D-Dimer 3469.99 ng/mlDDU (0-234) H 03/01/21 05:12 Abnormal lab findings: Abnormal Labs 02/17/21 02/17/21 02/17/21 14:34 14:34 14:34 WBC 11.7 H RBC Hgb Hct 44.9 H RDW 15.6 H Plt Count Seg Neuts % (Manual) Lymphocytes % (Manual) 9.0 L Monocytes % (Manual) 12.0 H Seg Neutrophils # Man 8.2 H Lymphocytes # (Manual) 1.1 L Monocytes # (Manual) 1.4 H D-Dimer ABG pH POC ABG pCO2 POC ABG pO2 ABG pO2 ABG HCO3 ABG O2 Saturation ABG Base Excess ABG Hemoglobin ABG Oxyhemoglobin Oxyhemoglobin Carboxyhemoglobin Sodium Potassium 3.5 L Chloride Carbon Dioxide BUN 27 H Creatinine Glucose 150 H POC Glucose Lactic Acid 2.90 H* Calcium Phosphorus Magnesium Ferritin AST Lactate Dehydrogenase C-Reactive Protein NT-Pro-B Natriuret Pep Albumin Triglycerides Urine WBC (Auto) Urine Creatinine Coronavirus (PCR) 02/17/21 02/18/21 02/18/21 14:34 07:48 07:48 WBC 12.0 H RBC Hgb Hct RDW 15.4 H Plt Count Seg Neuts % (Manual) 76.0 H Lymphocytes % (Manual) Monocytes % (Manual) Seg Neutrophils # Man 9.1 H Lymphocytes # (Manual) Monocytes # (Manual) D-Dimer ABG pH POC ABG pCO2 POC ABG pO2 ABG pO2 ABG HCO3 ABG O2 Saturation ABG Base Excess ABG Hemoglobin ABG Oxyhemoglobin Oxyhemoglobin Carboxyhemoglobin Sodium Potassium Chloride Carbon Dioxide BUN 36 H Creatinine Glucose 133 H POC Glucose Lactic Acid Calcium Phosphorus Magnesium Ferritin AST 57 H Lactate Dehydrogenase C-Reactive Protein NT-Pro-B Natriuret Pep 1619 H Albumin 3.3 L Triglycerides Urine WBC (Auto) Urine Creatinine Coronavirus (PCR) 02/18/21 02/18/21 02/19/21 Unknown Unknown 07:32 WBC RBC Hgb Hct RDW Plt Count Seg Neuts % (Manual) Lymphocytes % (Manual) Monocytes % (Manual) Seg Neutrophils # Man Lymphocytes # (Manual) Monocytes # (Manual) D-Dimer ABG pH POC ABG pCO2 POC ABG pO2 ABG pO2 ABG HCO3 ABG O2 Saturation ABG Base Excess ABG Hemoglobin ABG Oxyhemoglobin Oxyhemoglobin Carboxyhemoglobin Sodium 148 H D Potassium Chloride Carbon Dioxide BUN 41 H Creatinine Glucose 123 H POC Glucose Lactic Acid Calcium Phosphorus Magnesium Ferritin AST 57 H Lactate Dehydrogenase C-Reactive Protein NT-Pro-B Natriuret Pep Albumin 3.7 L Triglycerides Urine WBC (Auto) 7.0 H Urine Creatinine Coronavirus (PCR) Positive A 02/19/21 02/19/21 02/20/21 07:32 08:43 05:00 WBC RBC Hgb Hct RDW Plt Count Seg Neuts % (Manual) Lymphocytes % (Manual) Monocytes % (Manual) Seg Neutrophils # Man Lymphocytes # (Manual) Monocytes # (Manual) D-Dimer > 85747 H ABG pH POC ABG pCO2 POC ABG pO2 ABG pO2 ABG HCO3 ABG O2 Saturation ABG Base Excess ABG Hemoglobin ABG Oxyhemoglobin Oxyhemoglobin Carboxyhemoglobin Sodium 147 H Potassium Chloride 107.6 H Carbon Dioxide BUN 36 H Creatinine Glucose POC Glucose Lactic Acid Calcium Phosphorus Magnesium Ferritin AST Lactate Dehydrogenase C-Reactive Protein 10.90 H NT-Pro-B Natriuret Pep Albumin 3.3 L Triglycerides Urine WBC (Auto) Urine Creatinine Coronavirus (PCR) 02/20/21 02/21/21 02/21/21 18:46 04:44 04:44 WBC 16.7 H RBC Hgb Hct RDW Plt Count Seg Neuts % (Manual) Lymphocytes % (Manual) Monocytes % (Manual) Seg Neutrophils # Man Lymphocytes # (Manual) Monocytes # (Manual) D-Dimer ABG pH 7.453 H POC ABG pCO2 POC ABG pO2 ABG pO2 55.0 L ABG HCO3 26.6 H ABG O2 Saturation 88.3 L ABG Base Excess ABG Hemoglobin ABG Oxyhemoglobin Oxyhemoglobin 86.8 L Carboxyhemoglobin Sodium Potassium Chloride Carbon Dioxide BUN 26 H Creatinine Glucose 111 H POC Glucose Lactic Acid Calcium Phosphorus Magnesium Ferritin AST Lactate Dehydrogenase C-Reactive Protein NT-Pro-B Natriuret Pep Albumin 3.4 L Triglycerides Urine WBC (Auto) Urine Creatinine Coronavirus (PCR) 02/22/21 02/23/21 02/23/21 04:47 09:05 09:05 WBC 19.3 H RBC 5.29 H Hgb 15.2 H Hct 47.7 H D RDW Plt Count Seg Neuts % (Manual) 82.0 H Lymphocytes % (Manual) 6.0 L Monocytes % (Manual) Seg Neutrophils # Man 15.8 H Lymphocytes # (Manual) Monocytes # (Manual) 1.0 H D-Dimer ABG pH POC ABG pCO2 POC ABG pO2 ABG pO2 ABG HCO3 ABG O2 Saturation ABG Base Excess ABG Hemoglobin ABG Oxyhemoglobin Oxyhemoglobin Carboxyhemoglobin Sodium Potassium Chloride Carbon Dioxide BUN 25 H 27 H Creatinine Glucose 125 H POC Glucose Lactic Acid Calcium Phosphorus Magnesium Ferritin AST Lactate Dehydrogenase C-Reactive Protein NT-Pro-B Natriuret Pep Albumin 3.3 L Triglycerides Urine WBC (Auto) Urine Creatinine Coronavirus (PCR) 02/23/21 02/23/21 02/24/21 11:33 16:24 04:50 WBC 14.8 H RBC Hgb Hct RDW Plt Count Seg Neuts % (Manual) Lymphocytes % (Manual) Monocytes % (Manual) Seg Neutrophils # Man Lymphocytes # (Manual) Monocytes # (Manual) D-Dimer ABG pH POC ABG pCO2 POC ABG pO2 ABG pO2 ABG HCO3 ABG O2 Saturation ABG Base Excess ABG Hemoglobin ABG Oxyhemoglobin Oxyhemoglobin Carboxyhemoglobin Sodium Potassium Chloride Carbon Dioxide BUN Creatinine Glucose POC Glucose 117 H 163 H Lactic Acid Calcium Phosphorus Magnesium Ferritin AST Lactate Dehydrogenase C-Reactive Protein NT-Pro-B Natriuret Pep Albumin Triglycerides Urine WBC (Auto) Urine Creatinine Coronavirus (PCR) 02/24/21 02/25/21 02/27/21 04:50 21:12 04:57 WBC 17.0 H RBC Hgb Hct 43.4 H RDW Plt Count Seg Neuts % (Manual) 84.0 H Lymphocytes % (Manual) 4.0 L Monocytes % (Manual) Seg Neutrophils # Man 14.3 H Lymphocytes # (Manual) 0.7 L Monocytes # (Manual) 0.9 H D-Dimer ABG pH POC ABG pCO2 POC ABG pO2 ABG pO2 ABG HCO3 ABG O2 Saturation ABG Base Excess ABG Hemoglobin ABG Oxyhemoglobin Oxyhemoglobin Carboxyhemoglobin Sodium Potassium Chloride Carbon Dioxide BUN 23 H Creatinine Glucose POC Glucose 175 H Lactic Acid Calcium Phosphorus Magnesium Ferritin AST Lactate Dehydrogenase C-Reactive Protein NT-Pro-B Natriuret Pep Albumin Triglycerides Urine WBC (Auto) Urine Creatinine Coronavirus (PCR) 02/27/21 02/27/21 02/27/21 04:57 04:57 04:57 WBC RBC Hgb Hct RDW Plt Count Seg Neuts % (Manual) Lymphocytes % (Manual) Monocytes % (Manual) Seg Neutrophils # Man Lymphocytes # (Manual) Monocytes # (Manual) D-Dimer 5013.37 H ABG pH POC ABG pCO2 POC ABG pO2 ABG pO2 ABG HCO3 ABG O2 Saturation ABG Base Excess ABG Hemoglobin ABG Oxyhemoglobin Oxyhemoglobin Carboxyhemoglobin Sodium Potassium Chloride Carbon Dioxide BUN 23 H Creatinine 0.5 L Glucose 113 H POC Glucose Lactic Acid Calcium Phosphorus Magnesium Ferritin 1272.0 H AST Lactate Dehydrogenase 438 H C-Reactive Protein 5.80 H NT-Pro-B Natriuret Pep Albumin Triglycerides Urine WBC (Auto) Urine Creatinine Coronavirus (PCR) 02/27/21 02/27/21 02/28/21 17:53 21:12 07:40 WBC RBC Hgb Hct RDW Plt Count Seg Neuts % (Manual) Lymphocytes % (Manual) Monocytes % (Manual) Seg Neutrophils # Man Lymphocytes # (Manual) Monocytes # (Manual) D-Dimer ABG pH POC ABG pCO2 POC ABG pO2 ABG pO2 ABG HCO3 ABG O2 Saturation ABG Base Excess ABG Hemoglobin ABG Oxyhemoglobin Oxyhemoglobin Carboxyhemoglobin Sodium Potassium Chloride Carbon Dioxide BUN Creatinine Glucose POC Glucose 159 H 112 H 123 H Lactic Acid Calcium Phosphorus Magnesium Ferritin AST Lactate Dehydrogenase C-Reactive Protein NT-Pro-B Natriuret Pep Albumin Triglycerides Urine WBC (Auto) Urine Creatinine Coronavirus (PCR) 02/28/21 02/28/21 02/28/21 11:42 16:20 22:26 WBC RBC Hgb Hct RDW Plt Count Seg Neuts % (Manual) Lymphocytes % (Manual) Monocytes % (Manual) Seg Neutrophils # Man Lymphocytes # (Manual) Monocytes # (Manual) D-Dimer ABG pH POC ABG pCO2 POC ABG pO2 ABG pO2 ABG HCO3 ABG O2 Saturation ABG Base Excess ABG Hemoglobin ABG Oxyhemoglobin Oxyhemoglobin Carboxyhemoglobin Sodium Potassium Chloride Carbon Dioxide BUN Creatinine Glucose POC Glucose 112 H 138 H 129 H Lactic Acid Calcium Phosphorus Magnesium Ferritin AST Lactate Dehydrogenase C-Reactive Protein NT-Pro-B Natriuret Pep Albumin Triglycerides Urine WBC (Auto) Urine Creatinine Coronavirus (PCR) 03/01/21 03/01/21 03/01/21 05:12 05:12 05:12 WBC 15.0 H RBC 5.05 H Hgb Hct 44.7 H RDW Plt Count Seg Neuts % (Manual) 71.0 H Lymphocytes % (Manual) 11.0 L Monocytes % (Manual) 12.0 H Seg Neutrophils # Man 10.7 H Lymphocytes # (Manual) Monocytes # (Manual) 1.8 H D-Dimer 3469.99 H ABG pH POC ABG pCO2 POC ABG pO2 ABG pO2 ABG HCO3 ABG O2 Saturation ABG Base Excess ABG Hemoglobin ABG Oxyhemoglobin Oxyhemoglobin Carboxyhemoglobin Sodium Potassium Chloride 97.3 L Carbon Dioxide BUN Creatinine 0.5 L Glucose 115 H POC Glucose Lactic Acid Calcium Phosphorus Magnesium Ferritin AST Lactate Dehydrogenase 385 H C-Reactive Protein 11.20 H NT-Pro-B Natriuret Pep Albumin 2.8 L Triglycerides Urine WBC (Auto) Urine Creatinine Coronavirus (PCR) 03/01/21 03/01/21 03/01/21 05:12 07:30 11:42 WBC RBC Hgb Hct RDW Plt Count Seg Neuts % (Manual) Lymphocytes % (Manual) Monocytes % (Manual) Seg Neutrophils # Man Lymphocytes # (Manual) Monocytes # (Manual) D-Dimer ABG pH POC ABG pCO2 POC ABG pO2 ABG pO2 ABG HCO3 ABG O2 Saturation ABG Base Excess ABG Hemoglobin ABG Oxyhemoglobin Oxyhemoglobin Carboxyhemoglobin Sodium Potassium Chloride Carbon Dioxide BUN Creatinine Glucose POC Glucose 130 H 143 H Lactic Acid Calcium Phosphorus Magnesium Ferritin 1526.0 H AST Lactate Dehydrogenase C-Reactive Protein NT-Pro-B Natriuret Pep Albumin Triglycerides Urine WBC (Auto) Urine Creatinine Coronavirus (PCR) 03/01/21 03/01/21 03/01/21 15:28 17:53 21:16 WBC RBC Hgb Hct RDW Plt Count Seg Neuts % (Manual) Lymphocytes % (Manual) Monocytes % (Manual) Seg Neutrophils # Man Lymphocytes # (Manual) Monocytes # (Manual) D-Dimer ABG pH POC ABG pCO2 POC ABG pO2 ABG pO2 ABG HCO3 ABG O2 Saturation ABG Base Excess ABG Hemoglobin ABG Oxyhemoglobin Oxyhemoglobin Carboxyhemoglobin Sodium Potassium Chloride Carbon Dioxide BUN Creatinine Glucose POC Glucose 138 H 120 H 157 H Lactic Acid Calcium Phosphorus Magnesium Ferritin AST Lactate Dehydrogenase C-Reactive Protein NT-Pro-B Natriuret Pep Albumin Triglycerides Urine WBC (Auto) Urine Creatinine Coronavirus (PCR) 03/01/21 03/02/21 03/02/21 22:07 07:44 11:40 WBC RBC Hgb Hct RDW Plt Count Seg Neuts % (Manual) Lymphocytes % (Manual) Monocytes % (Manual) Seg Neutrophils # Man Lymphocytes # (Manual) Monocytes # (Manual) D-Dimer ABG pH POC ABG pCO2 POC ABG pO2 ABG pO2 35.9 L* ABG HCO3 31.2 H ABG O2 Saturation 68.0 L ABG Base Excess 6.1 H ABG Hemoglobin ABG Oxyhemoglobin Oxyhemoglobin 66.1 L Carboxyhemoglobin Sodium Potassium Chloride Carbon Dioxide BUN Creatinine Glucose POC Glucose 125 H 203 H Lactic Acid Calcium Phosphorus Magnesium Ferritin AST Lactate Dehydrogenase C-Reactive Protein NT-Pro-B Natriuret Pep Albumin Triglycerides Urine WBC (Auto) Urine Creatinine Coronavirus (PCR) 03/02/21 03/02/21 03/02/21 12:13 13:00 17:15 WBC RBC Hgb Hct RDW Plt Count Seg Neuts % (Manual) Lymphocytes % (Manual) Monocytes % (Manual) Seg Neutrophils # Man Lymphocytes # (Manual) Monocytes # (Manual) D-Dimer ABG pH POC ABG pCO2 POC ABG pO2 ABG pO2 36.0 L* ABG HCO3 29.5 H ABG O2 Saturation 68.7 L ABG Base Excess 4.7 H ABG Hemoglobin ABG Oxyhemoglobin Oxyhemoglobin 66.8 L Carboxyhemoglobin Sodium Potassium Chloride Carbon Dioxide BUN Creatinine Glucose POC Glucose 130 H 126 H Lactic Acid Calcium Phosphorus Magnesium Ferritin AST Lactate Dehydrogenase C-Reactive Protein NT-Pro-B Natriuret Pep Albumin Triglycerides Urine WBC (Auto) Urine Creatinine Coronavirus (PCR) 03/02/21 03/03/21 03/03/21 21:45 08:02 10:05 WBC 19.2 H RBC Hgb Hct 44.9 H RDW Plt Count Seg Neuts % (Manual) 85.0 H Lymphocytes % (Manual) 7.0 L Monocytes % (Manual) Seg Neutrophils # Man 16.3 H Lymphocytes # (Manual) Monocytes # (Manual) 1.2 H D-Dimer ABG pH POC ABG pCO2 POC ABG pO2 ABG pO2 ABG HCO3 ABG O2 Saturation ABG Base Excess ABG Hemoglobin ABG Oxyhemoglobin Oxyhemoglobin Carboxyhemoglobin Sodium Potassium Chloride Carbon Dioxide BUN Creatinine Glucose POC Glucose 113 H 128 H Lactic Acid Calcium Phosphorus Magnesium Ferritin AST Lactate Dehydrogenase C-Reactive Protein NT-Pro-B Natriuret Pep Albumin Triglycerides Urine WBC (Auto) Urine Creatinine Coronavirus (PCR) 03/03/21 03/03/21 03/03/21 10:05 12:45 16:31 WBC RBC Hgb Hct RDW Plt Count Seg Neuts % (Manual) Lymphocytes % (Manual) Monocytes % (Manual) Seg Neutrophils # Man Lymphocytes # (Manual) Monocytes # (Manual) D-Dimer ABG pH POC ABG pCO2 POC ABG pO2 ABG pO2 47.7 L ABG HCO3 31.5 H ABG O2 Saturation 82.5 L ABG Base Excess 5.6 H ABG Hemoglobin ABG Oxyhemoglobin Oxyhemoglobin 80.4 L Carboxyhemoglobin Sodium Potassium Chloride 97.8 L Carbon Dioxide BUN 23 H Creatinine Glucose 141 H POC Glucose 126 H Lactic Acid Calcium Phosphorus Magnesium Ferritin AST Lactate Dehydrogenase C-Reactive Protein NT-Pro-B Natriuret Pep Albumin 3.2 L Triglycerides Urine WBC (Auto) Urine Creatinine Coronavirus (PCR) 03/03/21 03/04/21 03/04/21 20:52 07:24 11:04 WBC RBC Hgb Hct RDW Plt Count Seg Neuts % (Manual) Lymphocytes % (Manual) Monocytes % (Manual) Seg Neutrophils # Man Lymphocytes # (Manual) Monocytes # (Manual) D-Dimer ABG pH POC ABG pCO2 POC ABG pO2 ABG pO2 ABG HCO3 ABG O2 Saturation ABG Base Excess ABG Hemoglobin ABG Oxyhemoglobin Oxyhemoglobin Carboxyhemoglobin Sodium Potassium Chloride Carbon Dioxide BUN Creatinine Glucose POC Glucose 152 H 126 H 142 H Lactic Acid Calcium Phosphorus Magnesium Ferritin AST Lactate Dehydrogenase C-Reactive Protein NT-Pro-B Natriuret Pep Albumin Triglycerides Urine WBC (Auto) Urine Creatinine Coronavirus (PCR) 03/04/21 03/04/21 03/04/21 11:05 15:33 21:12 WBC RBC Hgb Hct RDW Plt Count Seg Neuts % (Manual) Lymphocytes % (Manual) Monocytes % (Manual) Seg Neutrophils # Man Lymphocytes # (Manual) Monocytes # (Manual) D-Dimer ABG pH POC ABG pCO2 POC ABG pO2 ABG pO2 ABG HCO3 ABG O2 Saturation ABG Base Excess ABG Hemoglobin ABG Oxyhemoglobin Oxyhemoglobin Carboxyhemoglobin Sodium Potassium Chloride Carbon Dioxide BUN 34 H Creatinine Glucose 143 H POC Glucose 114 H 180 H Lactic Acid Calcium Phosphorus Magnesium Ferritin AST Lactate Dehydrogenase C-Reactive Protein NT-Pro-B Natriuret Pep Albumin Triglycerides Urine WBC (Auto) Urine Creatinine Coronavirus (PCR) 03/04/21 03/05/21 03/05/21 21:30 07:51 10:10 WBC 17.8 H RBC Hgb 14.5 H Hct 45.8 H RDW 15.3 H Plt Count 446 H Seg Neuts % (Manual) 77.0 H Lymphocytes % (Manual) 12.0 L Monocytes % (Manual) Seg Neutrophils # Man 13.7 H Lymphocytes # (Manual) Monocytes # (Manual) 0.9 H D-Dimer ABG pH 7.473 H POC ABG pCO2 POC ABG pO2 ABG pO2 34.1 L* ABG HCO3 29.7 H ABG O2 Saturation 66.4 L ABG Base Excess 5.6 H ABG Hemoglobin ABG Oxyhemoglobin Oxyhemoglobin 64.9 L Carboxyhemoglobin Sodium Potassium Chloride Carbon Dioxide BUN Creatinine Glucose POC Glucose 144 H Lactic Acid Calcium Phosphorus Magnesium Ferritin AST Lactate Dehydrogenase C-Reactive Protein NT-Pro-B Natriuret Pep Albumin Triglycerides Urine WBC (Auto) Urine Creatinine Coronavirus (PCR) 03/05/21 03/05/21 03/05/21 10:10 11:41 12:23 WBC RBC Hgb Hct RDW Plt Count Seg Neuts % (Manual) Lymphocytes % (Manual) Monocytes % (Manual) Seg Neutrophils # Man Lymphocytes # (Manual) Monocytes # (Manual) D-Dimer ABG pH 7.226 L POC ABG pCO2 POC ABG pO2 ABG pO2 50.5 L ABG HCO3 32.8 H ABG O2 Saturation 73.6 L ABG Base Excess ABG Hemoglobin 18.2 H ABG Oxyhemoglobin Oxyhemoglobin 71.8 L Carboxyhemoglobin Sodium Potassium 3.5 L Chloride Carbon Dioxide BUN 51 H Creatinine Glucose 217 H POC Glucose 124 H Lactic Acid Calcium Phosphorus Magnesium Ferritin AST Lactate Dehydrogenase C-Reactive Protein NT-Pro-B Natriuret Pep Albumin 3.1 L Triglycerides Urine WBC (Auto) Urine Creatinine Coronavirus (PCR) 03/05/21 03/05/21 03/06/21 16:40 22:39 00:37 WBC RBC Hgb Hct RDW Plt Count Seg Neuts % (Manual) Lymphocytes % (Manual) Monocytes % (Manual) Seg Neutrophils # Man Lymphocytes # (Manual) Monocytes # (Manual) D-Dimer ABG pH POC ABG pCO2 POC ABG pO2 ABG pO2 ABG HCO3 ABG O2 Saturation ABG Base Excess ABG Hemoglobin ABG Oxyhemoglobin Oxyhemoglobin Carboxyhemoglobin Sodium Potassium Chloride Carbon Dioxide BUN Creatinine Glucose POC Glucose 138 H 139 H 126 H Lactic Acid Calcium Phosphorus Magnesium Ferritin AST Lactate Dehydrogenase C-Reactive Protein NT-Pro-B Natriuret Pep Albumin Triglycerides Urine WBC (Auto) Urine Creatinine Coronavirus (PCR) 03/06/21 03/06/21 03/06/21 04:25 06:13 06:13 WBC 18.4 H RBC Hgb Hct RDW 15.3 H Plt Count Seg Neuts % (Manual) Lymphocytes % (Manual) Monocytes % (Manual) Seg Neutrophils # Man Lymphocytes # (Manual) Monocytes # (Manual) D-Dimer ABG pH 7.028 L* POC ABG pCO2 POC ABG pO2 ABG pO2 ABG HCO3 33.8 H ABG O2 Saturation 92.5 L ABG Base Excess ABG Hemoglobin ABG Oxyhemoglobin Oxyhemoglobin 90.6 L Carboxyhemoglobin Sodium 149 H Potassium Chloride 107.2 H Carbon Dioxide BUN 62 H Creatinine 1.9 H D Glucose 140 H POC Glucose Lactic Acid Calcium 7.7 L D Phosphorus 10.70 H Magnesium 2.40 H Ferritin AST Lactate Dehydrogenase C-Reactive Protein NT-Pro-B Natriuret Pep Albumin Triglycerides Urine WBC (Auto) Urine Creatinine Coronavirus (PCR) 03/06/21 03/06/21 03/06/21 06:13 09:00 12:00 WBC RBC Hgb Hct RDW Plt Count Seg Neuts % (Manual) Lymphocytes % (Manual) Monocytes % (Manual) Seg Neutrophils # Man Lymphocytes # (Manual) Monocytes # (Manual) D-Dimer ABG pH POC ABG pCO2 POC ABG pO2 ABG pO2 ABG HCO3 ABG O2 Saturation ABG Base Excess ABG Hemoglobin ABG Oxyhemoglobin Oxyhemoglobin Carboxyhemoglobin Sodium Potassium Chloride Carbon Dioxide BUN Creatinine Glucose POC Glucose 155 H 122 H Lactic Acid Calcium Phosphorus Magnesium Ferritin AST Lactate Dehydrogenase C-Reactive Protein NT-Pro-B Natriuret Pep Albumin Triglycerides Urine WBC (Auto) Urine Creatinine 247.7 H Coronavirus (PCR) 03/06/21 03/06/21 03/06/21 17:16 22:23 Unknown WBC RBC Hgb Hct RDW Plt Count Seg Neuts % (Manual) Lymphocytes % (Manual) Monocytes % (Manual) Seg Neutrophils # Man Lymphocytes # (Manual) Monocytes # (Manual) D-Dimer ABG pH 7.253 L POC ABG pCO2 POC ABG pO2 ABG pO2 66.5 L ABG HCO3 31.3 H ABG O2 Saturation 91.8 L ABG Base Excess ABG Hemoglobin 16.8 H ABG Oxyhemoglobin Oxyhemoglobin 90.1 L Carboxyhemoglobin Sodium Potassium Chloride Carbon Dioxide BUN Creatinine Glucose POC Glucose 123 H 123 H Lactic Acid Calcium Phosphorus Magnesium Ferritin AST Lactate Dehydrogenase C-Reactive Protein NT-Pro-B Natriuret Pep Albumin Triglycerides Urine WBC (Auto) Urine Creatinine Coronavirus (PCR) 03/07/21 03/07/21 03/07/21 00:36 04:05 04:05 WBC 18.0 H RBC Hgb Hct RDW Plt Count Seg Neuts % (Manual) Lymphocytes % (Manual) Monocytes % (Manual) Seg Neutrophils # Man Lymphocytes # (Manual) Monocytes # (Manual) D-Dimer ABG pH POC ABG pCO2 POC ABG pO2 ABG pO2 ABG HCO3 ABG O2 Saturation ABG Base Excess ABG Hemoglobin ABG Oxyhemoglobin Oxyhemoglobin Carboxyhemoglobin Sodium Potassium Chloride Carbon Dioxide BUN 75 H Creatinine 1.5 H Glucose 113 H POC Glucose 121 H Lactic Acid Calcium Phosphorus Magnesium Ferritin AST Lactate Dehydrogenase C-Reactive Protein NT-Pro-B Natriuret Pep Albumin Triglycerides Urine WBC (Auto) Urine Creatinine Coronavirus (PCR) 03/07/21 03/07/21 03/07/21 04:05 04:49 05:38 WBC RBC Hgb Hct RDW Plt Count Seg Neuts % (Manual) Lymphocytes % (Manual) Monocytes % (Manual) Seg Neutrophils # Man Lymphocytes # (Manual) Monocytes # (Manual) D-Dimer ABG pH 7.280 L POC ABG pCO2 POC ABG pO2 ABG pO2 ABG HCO3 29.3 H ABG O2 Saturation ABG Base Excess ABG Hemoglobin ABG Oxyhemoglobin Oxyhemoglobin 94.4 L Carboxyhemoglobin Sodium Potassium Chloride Carbon Dioxide BUN Creatinine Glucose POC Glucose 112 H Lactic Acid Calcium Phosphorus Magnesium Ferritin AST Lactate Dehydrogenase C-Reactive Protein NT-Pro-B Natriuret Pep Albumin Triglycerides 171 H Urine WBC (Auto) Urine Creatinine Coronavirus (PCR) 03/07/21 03/07/21 03/08/21 12:13 18:13 04:30 WBC 12.5 H RBC Hgb Hct RDW Plt Count Seg Neuts % (Manual) Lymphocytes % (Manual) Monocytes % (Manual) Seg Neutrophils # Man Lymphocytes # (Manual) Monocytes # (Manual) D-Dimer ABG pH POC ABG pCO2 POC ABG pO2 ABG pO2 ABG HCO3 ABG O2 Saturation ABG Base Excess ABG Hemoglobin ABG Oxyhemoglobin Oxyhemoglobin Carboxyhemoglobin Sodium Potassium Chloride Carbon Dioxide BUN Creatinine Glucose POC Glucose 113 H 111 H Lactic Acid Calcium Phosphorus Magnesium Ferritin AST Lactate Dehydrogenase C-Reactive Protein NT-Pro-B Natriuret Pep Albumin Triglycerides Urine WBC (Auto) Urine Creatinine Coronavirus (PCR) 03/08/21 03/08/21 03/08/21 04:30 05:04 10:00 WBC RBC Hgb Hct RDW Plt Count Seg Neuts % (Manual) Lymphocytes % (Manual) Monocytes % (Manual) Seg Neutrophils # Man Lymphocytes # (Manual) Monocytes # (Manual) D-Dimer ABG pH POC ABG pCO2 POC ABG pO2 ABG pO2 73.8 L ABG HCO3 28.9 H ABG O2 Saturation ABG Base Excess ABG Hemoglobin 11.0 L ABG Oxyhemoglobin Oxyhemoglobin 93.4 L Carboxyhemoglobin Sodium Potassium Chloride Carbon Dioxide BUN 69 H Creatinine Glucose 107 H POC Glucose 111 H Lactic Acid Calcium Phosphorus Magnesium Ferritin AST Lactate Dehydrogenase C-Reactive Protein NT-Pro-B Natriuret Pep Albumin Triglycerides Urine WBC (Auto) Urine Creatinine Coronavirus (PCR) 03/08/21 03/08/21 03/09/21 17:09 21:35 04:00 WBC 11.4 H RBC 3.21 L Hgb 9.4 L Hct 29.6 L RDW Plt Count Seg Neuts % (Manual) Lymphocytes % (Manual) Monocytes % (Manual) Seg Neutrophils # Man Lymphocytes # (Manual) Monocytes # (Manual) D-Dimer ABG pH POC ABG pCO2 POC ABG pO2 ABG pO2 ABG HCO3 ABG O2 Saturation ABG Base Excess ABG Hemoglobin ABG Oxyhemoglobin Oxyhemoglobin Carboxyhemoglobin Sodium Potassium Chloride Carbon Dioxide BUN Creatinine Glucose POC Glucose 114 H 128 H Lactic Acid Calcium Phosphorus Magnesium Ferritin AST Lactate Dehydrogenase C-Reactive Protein NT-Pro-B Natriuret Pep Albumin Triglycerides Urine WBC (Auto) Urine Creatinine Coronavirus (PCR) 03/09/21 03/09/21 03/09/21 04:00 04:11 11:25 WBC RBC Hgb Hct RDW Plt Count Seg Neuts % (Manual) Lymphocytes % (Manual) Monocytes % (Manual) Seg Neutrophils # Man Lymphocytes # (Manual) Monocytes # (Manual) D-Dimer ABG pH 7.260 L POC ABG pCO2 POC ABG pO2 ABG pO2 ABG HCO3 30.5 H ABG O2 Saturation ABG Base Excess ABG Hemoglobin 9.4 L ABG Oxyhemoglobin Oxyhemoglobin 93.9 L Carboxyhemoglobin Sodium Potassium Chloride Carbon Dioxide BUN 74 H Creatinine 1.3 H Glucose 117 H POC Glucose 122 H Lactic Acid Calcium Phosphorus Magnesium Ferritin AST Lactate Dehydrogenase C-Reactive Protein NT-Pro-B Natriuret Pep Albumin Triglycerides Urine WBC (Auto) Urine Creatinine Coronavirus (PCR) 03/09/21 03/09/21 03/09/21 18:02 21:04 23:30 WBC RBC Hgb Hct RDW Plt Count Seg Neuts % (Manual) Lymphocytes % (Manual) Monocytes % (Manual) Seg Neutrophils # Man Lymphocytes # (Manual) Monocytes # (Manual) D-Dimer ABG pH POC ABG pCO2 POC ABG pO2 ABG pO2 ABG HCO3 ABG O2 Saturation ABG Base Excess ABG Hemoglobin ABG Oxyhemoglobin Oxyhemoglobin Carboxyhemoglobin Sodium Potassium Chloride Carbon Dioxide BUN Creatinine Glucose POC Glucose 106 H 116 H 109 H Lactic Acid Calcium Phosphorus Magnesium Ferritin AST Lactate Dehydrogenase C-Reactive Protein NT-Pro-B Natriuret Pep Albumin Triglycerides Urine WBC (Auto) Urine Creatinine Coronavirus (PCR) 03/10/21 03/10/21 03/10/21 02:43 04:00 04:00 WBC 11.6 H RBC 3.30 L Hgb 9.7 L Hct RDW 16.1 H Plt Count Seg Neuts % (Manual) Lymphocytes % (Manual) Monocytes % (Manual) Seg Neutrophils # Man Lymphocytes # (Manual) Monocytes # (Manual) D-Dimer ABG pH 7.268 L POC ABG pCO2 POC ABG pO2 ABG pO2 113.4 H ABG HCO3 31.9 H ABG O2 Saturation ABG Base Excess 3.6 H ABG Hemoglobin 9.9 L ABG Oxyhemoglobin Oxyhemoglobin Carboxyhemoglobin Sodium Potassium Chloride Carbon Dioxide BUN 74 H Creatinine Glucose 132 H POC Glucose Lactic Acid Calcium Phosphorus Magnesium Ferritin AST Lactate Dehydrogenase C-Reactive Protein NT-Pro-B Natriuret Pep Albumin Triglycerides Urine WBC (Auto) Urine Creatinine Coronavirus (PCR) 03/10/21 03/10/21 03/10/21 05:08 11:29 16:23 WBC RBC Hgb Hct RDW Plt Count Seg Neuts % (Manual) Lymphocytes % (Manual) Monocytes % (Manual) Seg Neutrophils # Man Lymphocytes # (Manual) Monocytes # (Manual) D-Dimer ABG pH POC ABG pCO2 POC ABG pO2 ABG pO2 ABG HCO3 ABG O2 Saturation ABG Base Excess ABG Hemoglobin ABG Oxyhemoglobin Oxyhemoglobin Carboxyhemoglobin Sodium Potassium Chloride Carbon Dioxide BUN Creatinine Glucose POC Glucose 117 H 128 H 116 H Lactic Acid Calcium Phosphorus Magnesium Ferritin AST Lactate Dehydrogenase C-Reactive Protein NT-Pro-B Natriuret Pep Albumin Triglycerides Urine WBC (Auto) Urine Creatinine Coronavirus (PCR) 03/10/21 03/10/21 03/11/21 21:15 23:39 03:40 WBC RBC Hgb Hct RDW Plt Count Seg Neuts % (Manual) Lymphocytes % (Manual) Monocytes % (Manual) Seg Neutrophils # Man Lymphocytes # (Manual) Monocytes # (Manual) D-Dimer ABG pH 7.247 L POC ABG pCO2 POC ABG pO2 ABG pO2 123.9 H ABG HCO3 34.4 H ABG O2 Saturation ABG Base Excess 5.4 H ABG Hemoglobin 9.7 L ABG Oxyhemoglobin Oxyhemoglobin Carboxyhemoglobin Sodium Potassium Chloride Carbon Dioxide BUN Creatinine Glucose POC Glucose 123 H 124 H Lactic Acid Calcium Phosphorus Magnesium Ferritin AST Lactate Dehydrogenase C-Reactive Protein NT-Pro-B Natriuret Pep Albumin Triglycerides Urine WBC (Auto) Urine Creatinine Coronavirus (PCR) 03/11/21 03/11/21 03/11/21 04:00 04:00 05:32 WBC 12.1 H RBC 3.30 L Hgb 9.5 L Hct RDW 15.5 H Plt Count Seg Neuts % (Manual) Lymphocytes % (Manual) Monocytes % (Manual) Seg Neutrophils # Man Lymphocytes # (Manual) Monocytes # (Manual) D-Dimer ABG pH POC ABG pCO2 POC ABG pO2 ABG pO2 ABG HCO3 ABG O2 Saturation ABG Base Excess ABG Hemoglobin ABG Oxyhemoglobin Oxyhemoglobin Carboxyhemoglobin Sodium 148 H Potassium 5.7 H Chloride 107.7 H Carbon Dioxide BUN 63 H Creatinine Glucose 135 H POC Glucose 147 H Lactic Acid Calcium Phosphorus 4.70 H Magnesium 3.20 H Ferritin AST Lactate Dehydrogenase C-Reactive Protein NT-Pro-B Natriuret Pep Albumin Triglycerides Urine WBC (Auto) Urine Creatinine Coronavirus (PCR) 03/11/21 03/11/21 03/11/21 11:35 17:50 21:29 WBC RBC Hgb Hct RDW Plt Count Seg Neuts % (Manual) Lymphocytes % (Manual) Monocytes % (Manual) Seg Neutrophils # Man Lymphocytes # (Manual) Monocytes # (Manual) D-Dimer ABG pH POC ABG pCO2 POC ABG pO2 ABG pO2 ABG HCO3 ABG O2 Saturation ABG Base Excess ABG Hemoglobin ABG Oxyhemoglobin Oxyhemoglobin Carboxyhemoglobin Sodium Potassium Chloride Carbon Dioxide BUN Creatinine Glucose POC Glucose 136 H 109 H 114 H Lactic Acid Calcium Phosphorus Magnesium Ferritin AST Lactate Dehydrogenase C-Reactive Protein NT-Pro-B Natriuret Pep Albumin Triglycerides Urine WBC (Auto) Urine Creatinine Coronavirus (PCR) 03/12/21 03/12/21 03/12/21 00:43 04:06 04:30 WBC 11.2 H RBC 3.16 L Hgb 9.1 L Hct 29.5 L RDW 16.1 H Plt Count Seg Neuts % (Manual) Lymphocytes % (Manual) Monocytes % (Manual) Seg Neutrophils # Man Lymphocytes # (Manual) Monocytes # (Manual) D-Dimer ABG pH 7.261 L POC ABG pCO2 79.6 H POC ABG pO2 ABG pO2 ABG HCO3 ABG O2 Saturation ABG Base Excess ABG Hemoglobin 9.64 L ABG Oxyhemoglobin Oxyhemoglobin Carboxyhemoglobin Sodium Potassium Chloride Carbon Dioxide BUN Creatinine Glucose POC Glucose 112 H Lactic Acid Calcium Phosphorus Magnesium Ferritin AST Lactate Dehydrogenase C-Reactive Protein NT-Pro-B Natriuret Pep Albumin Triglycerides Urine WBC (Auto) Urine Creatinine Coronavirus (PCR) 03/12/21 03/12/21 03/12/21 04:30 05:24 09:16 WBC RBC Hgb Hct RDW Plt Count Seg Neuts % (Manual) Lymphocytes % (Manual) Monocytes % (Manual) Seg Neutrophils # Man Lymphocytes # (Manual) Monocytes # (Manual) D-Dimer ABG pH POC ABG pCO2 POC ABG pO2 ABG pO2 ABG HCO3 ABG O2 Saturation ABG Base Excess ABG Hemoglobin ABG Oxyhemoglobin Oxyhemoglobin Carboxyhemoglobin Sodium 147 H Potassium 6.2 H* Chloride Carbon Dioxide 33 H BUN 61 H Creatinine Glucose 132 H POC Glucose 122 H 117 H Lactic Acid Calcium Phosphorus Magnesium Ferritin AST Lactate Dehydrogenase C-Reactive Protein NT-Pro-B Natriuret Pep Albumin Triglycerides Urine WBC (Auto) Urine Creatinine Coronavirus (PCR) 03/12/21 03/12/21 03/12/21 10:12 12:51 18:29 WBC RBC Hgb Hct RDW Plt Count Seg Neuts % (Manual) Lymphocytes % (Manual) Monocytes % (Manual) Seg Neutrophils # Man Lymphocytes # (Manual) Monocytes # (Manual) D-Dimer ABG pH POC ABG pCO2 POC ABG pO2 ABG pO2 ABG HCO3 ABG O2 Saturation ABG Base Excess ABG Hemoglobin ABG Oxyhemoglobin Oxyhemoglobin Carboxyhemoglobin Sodium Potassium Chloride Carbon Dioxide BUN Creatinine Glucose POC Glucose 134 H 117 H 144 H Lactic Acid Calcium Phosphorus Magnesium Ferritin AST Lactate Dehydrogenase C-Reactive Protein NT-Pro-B Natriuret Pep Albumin Triglycerides Urine WBC (Auto) Urine Creatinine Coronavirus (PCR) 03/12/21 03/13/21 03/13/21 21:14 00:01 05:38 WBC RBC Hgb Hct RDW Plt Count Seg Neuts % (Manual) Lymphocytes % (Manual) Monocytes % (Manual) Seg Neutrophils # Man Lymphocytes # (Manual) Monocytes # (Manual) D-Dimer ABG pH 7.238 L POC ABG pCO2 POC ABG pO2 ABG pO2 94.9 H ABG HCO3 34.9 H ABG O2 Saturation ABG Base Excess 5.7 H ABG Hemoglobin 10.0 L ABG Oxyhemoglobin Oxyhemoglobin 94.4 L Carboxyhemoglobin Sodium Potassium Chloride Carbon Dioxide BUN Creatinine Glucose POC Glucose 144 H 131 H Lactic Acid Calcium Phosphorus Magnesium Ferritin AST Lactate Dehydrogenase C-Reactive Protein NT-Pro-B Natriuret Pep Albumin Triglycerides Urine WBC (Auto) Urine Creatinine Coronavirus (PCR) 03/13/21 03/13/21 03/13/21 06:14 07:00 07:00 WBC 11.3 H RBC 3.14 L Hgb 8.8 L Hct 29.3 L RDW 15.8 H Plt Count Seg Neuts % (Manual) Lymphocytes % (Manual) Monocytes % (Manual) Seg Neutrophils # Man Lymphocytes # (Manual) Monocytes # (Manual) D-Dimer ABG pH POC ABG pCO2 POC ABG pO2 ABG pO2 ABG HCO3 ABG O2 Saturation ABG Base Excess ABG Hemoglobin ABG Oxyhemoglobin Oxyhemoglobin Carboxyhemoglobin Sodium 150 H Potassium Chloride 109.3 H Carbon Dioxide BUN 66 H Creatinine Glucose 115 H POC Glucose 107 H Lactic Acid Calcium Phosphorus 5.80 H Magnesium 3.00 H Ferritin AST Lactate Dehydrogenase C-Reactive Protein NT-Pro-B Natriuret Pep Albumin Triglycerides Urine WBC (Auto) Urine Creatinine Coronavirus (PCR) 03/13/21 03/13/21 03/14/21 11:41 23:38 03:44 WBC RBC Hgb Hct RDW Plt Count Seg Neuts % (Manual) Lymphocytes % (Manual) Monocytes % (Manual) Seg Neutrophils # Man Lymphocytes # (Manual) Monocytes # (Manual) D-Dimer ABG pH 7.306 L POC ABG pCO2 POC ABG pO2 ABG pO2 75.4 L ABG HCO3 36.7 H ABG O2 Saturation ABG Base Excess 8.9 H ABG Hemoglobin 8.2 L ABG Oxyhemoglobin Oxyhemoglobin 93.6 L Carboxyhemoglobin Sodium Potassium Chloride Carbon Dioxide BUN Creatinine Glucose POC Glucose 116 H 119 H Lactic Acid Calcium Phosphorus Magnesium Ferritin AST Lactate Dehydrogenase C-Reactive Protein NT-Pro-B Natriuret Pep Albumin Triglycerides Urine WBC (Auto) Urine Creatinine Coronavirus (PCR) 03/14/21 03/14/21 03/14/21 05:29 07:17 07:17 WBC 12.7 H RBC 3.05 L Hgb 8.8 L Hct 28.5 L RDW 15.3 H Plt Count Seg Neuts % (Manual) Lymphocytes % (Manual) Monocytes % (Manual) Seg Neutrophils # Man Lymphocytes # (Manual) Monocytes # (Manual) D-Dimer ABG pH POC ABG pCO2 POC ABG pO2 ABG pO2 ABG HCO3 ABG O2 Saturation ABG Base Excess ABG Hemoglobin ABG Oxyhemoglobin Oxyhemoglobin Carboxyhemoglobin Sodium Potassium Chloride Carbon Dioxide 33 H BUN 61 H Creatinine Glucose 121 H POC Glucose 122 H Lactic Acid Calcium Phosphorus 4.70 H Magnesium 2.80 H Ferritin AST Lactate Dehydrogenase C-Reactive Protein NT-Pro-B Natriuret Pep Albumin Triglycerides Urine WBC (Auto) Urine Creatinine Coronavirus (PCR) 03/14/21 03/14/21 03/15/21 10:59 18:09 00:05 WBC RBC Hgb Hct RDW Plt Count Seg Neuts % (Manual) Lymphocytes % (Manual) Monocytes % (Manual) Seg Neutrophils # Man Lymphocytes # (Manual) Monocytes # (Manual) D-Dimer ABG pH POC ABG pCO2 POC ABG pO2 ABG pO2 ABG HCO3 ABG O2 Saturation ABG Base Excess ABG Hemoglobin ABG Oxyhemoglobin Oxyhemoglobin Carboxyhemoglobin Sodium Potassium Chloride Carbon Dioxide BUN Creatinine Glucose POC Glucose 114 H 118 H 111 H Lactic Acid Calcium Phosphorus Magnesium Ferritin AST Lactate Dehydrogenase C-Reactive Protein NT-Pro-B Natriuret Pep Albumin Triglycerides Urine WBC (Auto) Urine Creatinine Coronavirus (PCR) 03/15/21 03/15/21 03/15/21 04:00 04:30 04:30 WBC 13.5 H RBC 2.99 L Hgb 8.4 L Hct 27.9 L RDW 15.6 H Plt Count Seg Neuts % (Manual) Lymphocytes % (Manual) Monocytes % (Manual) Seg Neutrophils # Man Lymphocytes # (Manual) Monocytes # (Manual) D-Dimer ABG pH 7.237 L POC ABG pCO2 80.6 H POC ABG pO2 71.8 L ABG pO2 ABG HCO3 ABG O2 Saturation ABG Base Excess ABG Hemoglobin ABG Oxyhemoglobin 91.7 L Oxyhemoglobin Carboxyhemoglobin 1.6 H Sodium Potassium Chloride Carbon Dioxide 32 H BUN 68 H Creatinine Glucose 128 H POC Glucose Lactic Acid Calcium Phosphorus Magnesium Ferritin AST Lactate Dehydrogenase C-Reactive Protein NT-Pro-B Natriuret Pep Albumin Triglycerides Urine WBC (Auto) Urine Creatinine Coronavirus (PCR) 03/15/21 03/15/21 03/15/21 05:18 11:04 17:40 WBC RBC Hgb Hct RDW Plt Count Seg Neuts % (Manual) Lymphocytes % (Manual) Monocytes % (Manual) Seg Neutrophils # Man Lymphocytes # (Manual) Monocytes # (Manual) D-Dimer ABG pH POC ABG pCO2 POC ABG pO2 ABG pO2 ABG HCO3 ABG O2 Saturation ABG Base Excess ABG Hemoglobin ABG Oxyhemoglobin Oxyhemoglobin Carboxyhemoglobin Sodium Potassium Chloride Carbon Dioxide BUN Creatinine Glucose POC Glucose 111 H 120 H 114 H Lactic Acid Calcium Phosphorus Magnesium Ferritin AST Lactate Dehydrogenase C-Reactive Protein NT-Pro-B Natriuret Pep Albumin Triglycerides Urine WBC (Auto) Urine Creatinine Coronavirus (PCR) 03/15/21 03/16/21 03/16/21 23:40 04:58 05:00 WBC RBC Hgb Hct RDW Plt Count Seg Neuts % (Manual) Lymphocytes % (Manual) Monocytes % (Manual) Seg Neutrophils # Man Lymphocytes # (Manual) Monocytes # (Manual) D-Dimer ABG pH 7.279 L POC ABG pCO2 77.0 H POC ABG pO2 65.3 L ABG pO2 ABG HCO3 ABG O2 Saturation ABG Base Excess ABG Hemoglobin 9.8 L ABG Oxyhemoglobin 89.7 L Oxyhemoglobin Carboxyhemoglobin Sodium Potassium Chloride Carbon Dioxide BUN Creatinine Glucose POC Glucose 121 H Lactic Acid Calcium Phosphorus Magnesium Ferritin AST Lactate Dehydrogenase C-Reactive Protein NT-Pro-B Natriuret Pep Albumin Triglycerides 169 H Urine WBC (Auto) Urine Creatinine Coronavirus (PCR) 03/16/21 03/16/21 03/16/21 05:29 12:22 16:34 WBC RBC Hgb Hct RDW Plt Count Seg Neuts % (Manual) Lymphocytes % (Manual) Monocytes % (Manual) Seg Neutrophils # Man Lymphocytes # (Manual) Monocytes # (Manual) D-Dimer ABG pH POC ABG pCO2 POC ABG pO2 ABG pO2 ABG HCO3 ABG O2 Saturation ABG Base Excess ABG Hemoglobin ABG Oxyhemoglobin Oxyhemoglobin Carboxyhemoglobin Sodium Potassium Chloride Carbon Dioxide BUN Creatinine Glucose POC Glucose 140 H 108 H 116 H Lactic Acid Calcium Phosphorus Magnesium Ferritin AST Lactate Dehydrogenase C-Reactive Protein NT-Pro-B Natriuret Pep Albumin Triglycerides Urine WBC (Auto) Urine Creatinine Coronavirus (PCR) 03/17/21 03/17/21 03/17/21 00:03 04:00 04:00 WBC 14.7 H RBC 3.01 L Hgb 8.6 L Hct 27.8 L RDW 15.6 H Plt Count Seg Neuts % (Manual) Lymphocytes % (Manual) Monocytes % (Manual) Seg Neutrophils # Man Lymphocytes # (Manual) Monocytes # (Manual) D-Dimer ABG pH POC ABG pCO2 POC ABG pO2 ABG pO2 ABG HCO3 ABG O2 Saturation ABG Base Excess ABG Hemoglobin ABG Oxyhemoglobin Oxyhemoglobin Carboxyhemoglobin Sodium 147 H Potassium 5.6 H D Chloride Carbon Dioxide 34 H BUN 74 H Creatinine Glucose 129 H POC Glucose 126 H Lactic Acid Calcium Phosphorus Magnesium Ferritin AST Lactate Dehydrogenase C-Reactive Protein NT-Pro-B Natriuret Pep Albumin Triglycerides Urine WBC (Auto) Urine Creatinine Coronavirus (PCR) 03/17/21 03/17/21 03/17/21 05:05 05:19 11:25 WBC RBC Hgb Hct RDW Plt Count Seg Neuts % (Manual) Lymphocytes % (Manual) Monocytes % (Manual) Seg Neutrophils # Man Lymphocytes # (Manual) Monocytes # (Manual) D-Dimer ABG pH 7.315 L POC ABG pCO2 POC ABG pO2 ABG pO2 ABG HCO3 37.6 H ABG O2 Saturation ABG Base Excess 9.5 H ABG Hemoglobin 9.5 L ABG Oxyhemoglobin Oxyhemoglobin 93.4 L Carboxyhemoglobin Sodium Potassium Chloride Carbon Dioxide BUN Creatinine Glucose POC Glucose 118 H 107 H Lactic Acid Calcium Phosphorus Magnesium Ferritin AST Lactate Dehydrogenase C-Reactive Protein NT-Pro-B Natriuret Pep Albumin Triglycerides Urine WBC (Auto) Urine Creatinine Coronavirus (PCR)
--- NOTE | 2021-03-17 13:08 | Progress Note ---
<EDVINMILLA H. - Last Filed: 03/17/21 13:03> Assessment and Plan Assessment and plan: This is a 61-year-old female with HTN, DM, DVT/PE on Eliquis admitted with acute hypoxic respiratory failure secondary to COVID-19 pneumonia Acute hypoxic respiratory failure secondary to Covid pneumonia, ARDS -S/p BiPAP and OptiFlow -Intubated on 03/05 with 7.50 ETT -A.m. vent settings: CMV tidal volume 350, rate 30, PEEP 20, 70% FiO2 -See RT notes for titration -CCM consulted, appreciate recommendations -VAP bundle -SPO2 monitoring -AM ABG noted -Sedated on Versed and propofol -RASS goal of -2 to -3 -Avoid delirium -Maintain sleep-wake cycle -SAT/SBT when appropriate Sepsis/COVID-19 pneumonia, leukocytosis, multifocal pneumonia -Infectious disease consulted, appreciate recommendations -> signed off 02/28 -Vasopressor support with Levophed -MAP goal greater than 65 -S/p steroids for 10 days -S/p remdesivir for 10 days -S/p empiric antibiotics for 5 days -S/p Actemra -Isolation/droplet precautions -Vitamin C/vitamin D/zinc -Trend COVID-19 from 2 markers -Anticoagulation per protocol Acute kidney injury secondary to acute tubular necrosis, hypernatremia, hyperkalemia -BUN/creatinine increased to 1.9/62 -S/p diuresis with Lasix x4 (120 mg total for visit) -S/p 4 L LR -Avoid nephrotoxic medications -Renally dose medications -FWF -Trend BMP Acute right lower leg DVT, PE -Vascular surgery consulted, appreciate recommendations -D-dimer greater than 10,000 -CTA chest showed several small emboli in the segmental branches of the right lung -Vascular surgery recommended anticoagulation and supportive therapy -bilateral lower extremity Doppler ultrasound showed a chronic appearing DVT in the right posterior tibial vein -Therapeutic Lovenox -Trend CBC -Transfuse to hemoglobin less than 7 -Monitor for signs of bleeding h/o DM -SSI -Lantus, titrate as needed -Avoid hypoglycemia h/o HTN -Hold home antihypertensive regimen at this time -Blood pressure monitor per protocol DVT/GI prophylaxis -Lovenox subcu -PPI The high probability of a clinically significant, sudden or life threatening deterioration of the [CV/Resp] system(s) required my full and direct attention, intervention and personal management. The aggregate critical care time was [60] minutes. This time is in addition to time spent performing reported procedures but includes the following: [x] Data Review and interpretation [x] Patient assessment and monitoring of vital signs [x] Documentation [x] Medication orders and management Disposition Plan: icu Total Time Spent with Patient (Minutes): 60 History Interval history: This is a 61-year-old female with HTN, DM, left lower extremity DVT and pulmonary medicine on Eliquis who presented to emergency department on 02/17 with complaints of shortness of breath and generalized weakness for the past 5 days prior to arrival and states that she is tested positive for COVID-19 on February 10, 2021 via EMS. EMS stated that the patient's initial oxygen saturation was 75% on room air improved to 86% on nonrebreather. Work-up in the emergency department revealed leukocytosis and elevated BUN. Work-up in the ED included a CXR which showed severe diffuse bilateral patchy opacities. Patient was admitted to the hospitalist service with consults to ID, pulmonology, vascular surgery as a COVID-19 PUI, SARS, acute hypoxic respiratory failure and multifocal pneumonia. Hospital course to date: 02/19/2020: Patient on 50% Ventimask, Covid positive, Continue steroids ,May DC antibiotics, Respiratory assessment and treatment 02/19: Patient still hypoxic, encourage prone positioning, Pulmonary and ID consult. Will obtain CTA chest to evaluate for PE. Continue steroid therapy and oxygen therapy wean as tolerated. Continuous pulse oximeter. Plan discussed with the patient. 02/20: Patient seen and examined, remains on NRBM. awaiting CT CHEST WITH ANGIO Ordered yesterday. Encourage proning the patient says she was not proned yesterday discussed with nursing staff. Continue steroid therapy and remdesivir. Patient was seen by ID and as documented by ID"She is a candidate for Actemra based on CRp and O2 requirements. unfortunately we have not been getting procalcitonin results. -ordered Actemra once (afebrile, white count only mildly elevated in the setting of steroids)" Discussed plan of care with the nurse. Also called to updated the patients sister listed as NOK but got voice mail 02/21: Continue steroids, remdesivir, patient received 1 dose of Actemra but unable to get the second dose due to availability. CTA showed dense consolidation but no effusion and no pulmonary embolism patient does have a lower extremity DVT. Eliquis continues at full dose of 5 mg twice daily we will continue to monitor closely. Prognosis is guarded counseling for compliance for 15 minutes. 02/22: Patient clinically not improving much of switch the patient to Lovenox. Prognosis remains guarded. Continue anticoagulation due to DVT still suspicious of pulmonary embolism as a result we will obtain echocardiogram and vascular consult per pulmonary request which I agree with. I will also transfer the patient to stepdown unit for closer monitoring. 02/23: Vascular input noted agree the patient has subsegmental bibasilar pulmonary embolism but not enough to warrant intervention. Does not feel that this is contributing majority to her hypoxia. Nevertheless we will switch patient from Eliquis to Lovenox. Continue current management with remdesivir 02/24: Patient seen and examined, remains on anticoagulation, continue remedsivir and steroids. prone as tolerated, will give additional lasix today. Guarded pr ognosis. 02/25 A&O x 3, C/O mild cough with mucoid expectorant. Denies CP or shortness of breath. Remains on HFNC. pulmonary note and lab results reviewed 02/26: AOX3, proning on encounter. Encouraged continued movement while in bed and with assistance of care staff. Remains on HFNC. Last day of decadron today. 02/27: Patient encouraged to continue proning and remain active. Discussed with PT to come work with patient to mobilize. Will d/w CM for tank terminal gauger placement solution. 02/28: Patient stated she would like to be a full code. Working with CM for LTAC placement. 03/01: Awaiting LTAC placement. Remains full code. Spoke with daughter Meghna who was updated on patient's case. 03/02: Sats in low 80s on hi lfow. Blood gas shows pao2 = 35.9. will start bipap, d/w IMCU RN who will notify RT. repeat abg in 1 hr. Poor prognosis. 03/03; Sats in low 90's on bipap. Repeat abg this AM demosntrates marginal improvement in PaO2. PCCM d/w daughter, patient and her daughter would like intubation should she continue to deteriorate. Prognosis remains poor. 03/04: de-escalated to HFNC 40/100 + venti. Will continue with bipap prn. Continue steroids. Dispo is still LTAC, placement is pending. 03/05: Resipratory distress this morning. Sats 69-70%. subsequently intubated. Now icu level of care. Family wants continue aggressive measures. Will follow [facility] recs. 03/06: Patient with ISH this am probably due to hypotension vs diuretic use, fluid bolus challenge this am. Urine lytes ordered. FWF added for hypernatremia. 03/07: Patient responded to fluid challenge, renal function improved, UOP better. Weaning down pressors, additional IVF bolus today, plan to wean down on pressors requirement. ABG improved today, wean down Fio2 as tolerated. Okay to start trickle feeds. 03/08: Renal function is back to baseline. Going down on pressor requirements, only on low dose Vaso and levophed today. Continue to wean pressors as tolerated. D/W CCm continue to wean Fio2 as tolerated, keep patient a RASS goal of -4 for now. Advance TF as tolerated per order. 03/09: Remains on the vent. Low SPO2 overnight, vent setting was increased. Off pressors this am. IV lasix per [facility], repeat CXR in the am 03/10: Remains intubated and sedated, RASS -4. Back on pressors this am for low BP. This am CXR and ABG reviewed, oxygenation improved. Continue to wean pressors as tolerated. Vent adjustement per [facility] 03/11: Kayexalate given hypernatremia, remains on Levophed, increasing free water flush. 03/12: Hyperkalemia medically treated, repeat potassium is 4. BUN continues to rise. Continue to trend. Patient has been titrated off of Levophed. 03/13: Potassium is trending up, will continue to monitor. Wean Levophed as tolerated. Hypernatremia worsened, free water flushes increased. Vent changes per [facility]. 03/14: [facility] updated daughter who stated she will discuss with family and update decisions regarding goals of care. FiO2 weaned. Continue to monitor. Levophed restarted. 03/15: Continue supportive measures and monitoring renal function. Patient remains on low-dose Levophed. FiO2 decreased slightly but SPO2 has been in the upper 80s. 03/16: FiO2 decreased by CCM, remains on Levophed drip and sedated with fentanyl and Versed. PEEP remains at 20. No acute events overnight 03/17: Per RN patient family would like to visit tomorrow and possibly de- escalate care, hyponatremia, hyperkalemia and leukocytosis noted on labs. Remains on elevated vent settings with SPO2 in the 80s. Hospitalist Physical - Physical exam Narrative exam: General appearance: Present: no acute distress, well-nourished, other (Intubated and Sedated) - EENT Eyes: Present: PERRL, EOM intact - Neck Neck: Present: normal ROM - Respiratory Respiratory effort: normal Respiratory: bilateral: diminished - Cardiovascular Rhythm: regular Heart Sounds: Present: S1 & S2. Absent: systolic murmur, diastolic murmur - Extremities Extremities: no ischemia, pulses intact, pulses symmetrical, No edema, normal temperature, normal color Peripheral Pulses: within normal limits - Abdominal General gastrointestinal: soft, non-tender, non-distended, normal bowel sounds - Integumentary Integumentary: Present: warm, dry - Psychiatric Psychiatric: other - Neurologic Neurologic: other (intact cough/gag) - Allied Health Allied health notes reviewed: nursing, RT, social work - Constitutional Vitals: Temp Pulse Resp BP Pulse Ox 98.8 F 88 32 H 92/60 90 03/17/21 08:00 03/17/21 12:00 03/17/21 09:00 03/17/21 12:00 03/17/21 12:00 General appearance: Present: no acute distress, well-nourished, other (Intubated and Sedated) Results - Labs CBC & Chem 7: 03/17/21 04:00 03/17/21 04:00 Labs: Laboratory Last Values WBC 14.7 K/mm3 (4.5-11.0) H 03/17/21 04:00 RBC 3.01 M/mm3 (3.65-5.03) L 03/17/21 04:00 Hgb 8.6 gm/dl (10.1-14.3) L 03/17/21 04:00 Hct 27.8 % (30.3-42.9) L 03/17/21 04:00 MCV 92 fl (79-97) 03/17/21 04:00 MCH 29 pg (28-32) 03/17/21 04:00 MCHC 31 % (30-34) 03/17/21 04:00 RDW 15.6 % (13.2-15.2) H 03/17/21 04:00 Plt Count 404 K/mm3 (140-440) 03/17/21 04:00 Add Manual Diff Complete 03/05/21 10:10 Total Counted 100 03/05/21 10:10 Seg Neuts % (Manual) 77.0 % (40.0-70.0) H 03/05/21 10:10 Band Neutrophils % 3.0 % 03/05/21 10:10 Lymphocytes % (Manual) 12.0 % (13.4-35.0) L 03/05/21 10:10 Reactive Lymphs % (Man) 2.0 % 03/05/21 10:10 Monocytes % (Manual) 5.0 % (0.0-7.3) 03/05/21 10:10 Eosinophils % (Manual) 1.0 % (0.0-4.3) 03/05/21 10:10 Basophils % (Manual) 0 % (0.0-1.8) 03/05/21 10:10 Metamyelocytes % 0 % 03/05/21 10:10 Myelocytes % 0 % 03/05/21 10:10 Promyelocytes % 0 % 03/05/21 10:10 Blast Cells % 0 % 03/05/21 10:10 Nucleated RBC % Not Reportable 03/05/21 10:10 Seg Neutrophils # Man 13.7 K/mm3 (1.8-7.7) H 03/05/21 10:10 Band Neutrophils # 0.5 K/mm3 03/05/21 10:10 Lymphocytes # (Manual) 2.1 K/mm3 (1.2-5.4) 03/05/21 10:10 Abs React Lymphs (Man) 0.4 K/mm3 03/05/21 10:10 Monocytes # (Manual) 0.9 K/mm3 (0.0-0.8) H 03/05/21 10:10 Eosinophils # (Manual) 0.2 K/mm3 (0.0-0.4) 03/05/21 10:10 Basophils # (Manual) 0.0 K/mm3 (0.0-0.1) 03/05/21 10:10 Metamyelocytes # 0.0 K/mm3 03/05/21 10:10 Myelocytes # 0.0 K/mm3 03/05/21 10:10 Promyelocytes # 0.0 K/mm3 03/05/21 10:10 Blast Cells # 0.0 K/mm3 03/05/21 10:10 WBC Morphology Not Reportable 03/05/21 10:10 Hypersegmented Neuts Not Reportable 03/05/21 10:10 Hyposegmented Neuts Not Reportable 03/05/21 10:10 Hypogranular Neuts Not Reportable 03/05/21 10:10 Smudge Cells Not Reportable 03/05/21 10:10 Toxic Granulation Not Reportable 03/05/21 10:10 Toxic Vacuolation Not Reportable 03/05/21 10:10 Dohle Bodies Not Reportable 03/05/21 10:10 Pelger-Huet Anomaly Not Reportable 03/05/21 10:10 Cindy Rods Not Reportable 03/05/21 10:10 Platelet Estimate Consistent w auto 03/05/21 10:10 Clumped Platelets Not Reportable 03/05/21 10:10 Plt Clumps, EDTA Not Reportable 03/05/21 10:10 Large Platelets 1+ 03/05/21 10:10 Giant Platelets Not Reportable 03/05/21 10:10 Platelet Satelliting Not Reportable 03/05/21 10:10 Plt Morphology Comment Not Reportable 03/05/21 10:10 RBC Morphology Not Reportable 03/05/21 10:10 Dimorphic RBCs Not Reportable 03/05/21 10:10 Polychromasia Few 03/05/21 10:10 Hypochromasia Not Reportable 03/05/21 10:10 Poikilocytosis Not Reportable 03/05/21 10:10 Anisocytosis 1+ 03/05/21 10:10 Microcytosis Not Reportable 03/05/21 10:10 Macrocytosis Not Reportable 03/05/21 10:10 Spherocytes Not Reportable 03/05/21 10:10 Pappenheimer Bodies Not Reportable 03/05/21 10:10 Sickle Cells Not Reportable 03/05/21 10:10 Target Cells Not Reportable 03/05/21 10:10 Tear Drop Cells Not Reportable 03/05/21 10:10 Ovalocytes Not Reportable 03/05/21 10:10 Helmet Cells Not Reportable 03/05/21 10:10 Sumner-Raoul Bodies Not Reportable 03/05/21 10:10 [place] Rings Not Reportable 03/05/21 10:10 Alicia Cells Not Reportable 03/05/21 10:10 Bite Cells Not Reportable 03/05/21 10:10 Crenated Cell Not Reportable 03/05/21 10:10 Elliptocytes Not Reportable 03/05/21 10:10 Acanthocytes (Spur) Not Reportable 03/05/21 10:10 Rouleaux Not Reportable 03/05/21 10:10 Hemoglobin C Crystals Not Reportable 03/05/21 10:10 Schistocytes Not Reportable 03/05/21 10:10 Malaria parasites Not Reportable 03/05/21 10:10 Pedro Pablo Bodies Not Reportable 03/05/21 10:10 Hem Pathologist Commnt No 03/05/21 10:10 PT 13.9 Sec. (12.2-14.9) 02/17/21 14:34 INR 0.96 (0.87-1.13) 02/17/21 14:34 APTT 26.4 Sec. (24.2-36.6) 02/17/21 14:34 D-Dimer 3469.99 ng/mlDDU (0-234) H 03/01/21 05:12 ABG pH 7.315 pH Units (7.350-7.450) L 03/17/21 05:05 POC ABG pCO2 77.0 mmHg (32.0-48.0) H 03/16/21 04:58 ABG pCO2 75.5 mm Hg 03/17/21 05:05 POC ABG pO2 65.3 mmHg (83-108) L 03/16/21 04:58 ABG pO2 80.4 mm Hg (80.0-90.0) 03/17/21 05:05 POC ABG HCO3 35.3 03/16/21 04:58 ABG HCO3 37.6 mmol/L (20.0-26.0) H 03/17/21 05:05 ABG O2 Saturation 96.1 % (95.0-99.0) 03/17/21 05:05 ABG O2 Content 12.6 (0.0-44) 03/17/21 05:05 POC ABG Base Excess 6.8 03/16/21 04:58 ABG Base Excess 9.5 mmol/L (-2.0-3.0) H 03/17/21 05:05 ABG Hemoglobin 9.5 gm/dl (12.0-16.0) L 03/17/21 05:05 ABG Oxyhemoglobin 89.7 (94-98) L 03/16/21 04:58 ABG Carboxyhemoglobin 2.1 % (0.0-5.0) 03/17/21 05:05 ABG Methemoglobin 0.6 % (0.0-1.5) 03/17/21 05:05 Oxyhemoglobin 93.4 % (95.0-99.0) L 03/17/21 05:05 Carboxyhemoglobin 1.1 (0.5-1.5) 03/16/21 04:58 FiO2 70 % 03/17/21 05:05 FiO2 % 75.0 03/16/21 04:58 Sodium 147 mmol/L (137-145) H 03/17/21 04:00 Potassium 5.6 mmol/L (3.6-5.0) H D 03/17/21 04:00 Chloride 105.3 mmol/L (98-107) 03/17/21 04:00 Carbon Dioxide 34 mmol/L (22-30) H 03/17/21 04:00 Anion Gap 13 mmol/L 03/17/21 04:00 BUN 74 mg/dL (7-17) H 03/17/21 04:00 Creatinine 0.8 mg/dL (0.6-1.2) 03/17/21 04:00 Estimated GFR > 60 ml/min 03/17/21 04:00 BUN/Creatinine Ratio 93 % 03/17/21 04:00 Glucose 129 mg/dL (65-100) H 03/17/21 04:00 POC Glucose 107 mg/dL (70-105) H 03/17/21 11:25 Lactic Acid 1.60 mmol/L (0.7-2.0) 02/17/21 18:39 Calcium 9.4 mg/dL (8.4-10.2) 03/17/21 04:00 Phosphorus 4.70 mg/dL (2.5-4.5) H 03/14/21 07:17 Magnesium 2.80 mg/dL (1.7-2.3) H 03/14/21 07:17 Ferritin 1526.0 ng/mL (10.0-200.0) H 03/01/21 05:12 Total Bilirubin 0.30 mg/dL (0.1-1.2) 03/05/21 10:10 Direct Bilirubin < 0.2 mg/dL (0-0.2) 02/17/21 14:34 Indirect Bilirubin 0.1 mg/dL 02/17/21 14:34 AST 38 units/L (5-40) 03/05/21 10:10 ALT 44 units/L (7-56) 03/05/21 10:10 Alkaline Phosphatase 78 units/L (35-129) 03/05/21 10:10 Lactate Dehydrogenase 385 units/L (91-180) H 03/01/21 05:12 C-Reactive Protein 11.20 mg/dL (0.00-1.30) H 03/01/21 05:12 NT-Pro-B Natriuret Pep 86.77 pg/mL (0-900) 02/20/21 16:34 Total Protein 7.7 g/dL (6.3-8.2) 03/05/21 10:10 Albumin 3.1 g/dL (3.9-5) L 03/05/21 10:10 Albumin/Globulin Ratio 0.7 % 03/05/21 10:10 Triglycerides 169 mg/dL (2-149) H 03/16/21 05:00 Procalcitonin 0.11 ng/mL (<0.15) 02/19/21 07:32 Urine Color Cassandra (Yellow) 02/18/21 Unknown Urine Turbidity Cloudy (Clear) 02/18/21 Unknown Urine pH 5.0 (5.0-7.0) 02/18/21 Unknown Ur Specific [place] 1.027 (1.003-1.030) 02/18/21 Unknown Urine Protein 100 mg/dl mg/dL (Negative) 02/18/21 Unknown Urine Glucose (UA) Neg mg/dL (Negative) 02/18/21 Unknown Urine Ketones Neg mg/dL (Negative) 02/18/21 Unknown Urine Blood Neg (Negative) 02/18/21 Unknown Urine Nitrite Neg (Negative) 02/18/21 Unknown Urine Bilirubin Neg (Negative) 02/18/21 Unknown Urine Urobilinogen < 2.0 mg/dL (<2.0) 02/18/21 Unknown Ur Leukocyte Esterase Neg (Negative) 02/18/21 Unknown Urine WBC (Auto) 7.0 /HPF (0.0-6.0) H 02/18/21 Unknown Urine RBC (Auto) 4.0 /HPF (0.0-6.0) 02/18/21 Unknown U Epithel Cells (Auto) 3.0 /HPF (0-13.0) 02/18/21 Unknown Urine Mucus 2+ /HPF 02/18/21 Unknown Urine Creatinine 247.7 mg/dL (0.1-20.0) H 03/06/21 09:00 Urine Sodium 25 mmol/L 03/06/21 09:00 Coronavirus (PCR) Positive (Negative) A 02/18/21 Unknown Head/IV: Voiding Method Indwelling Catheter Active Medications - Current Medications Current Medications: Generic Name Dose Route Start Last Admin Trade Name Freq PRN Reason Stop Dose Admin Acetaminophen 650 mg 02/17/21 23:58 03/11/21 04:27 Acetaminophen 325 Mg Tab PO 650 mg Q4H PRN Administration Pain MILD(1-3)/Fever >100.5/BROWN Dextrose 0 ml 03/11/21 10:46 Dextrose 10% *Hypoglycemia IV PRN PRN Hypoglycemia Enoxaparin Sodium 90 mg 03/08/21 22:00 03/17/21 10:09 Enoxaparin 100 Mg/1 Ml Inj 1 mg/kg (90 mg) 90 mg SUB-Q Administration Q12HR [facility] Protocol Famotidine 20 mg 03/11/21 22:00 03/17/21 10:09 Famotidine 20 Mg Tab FEEDTUBE 20 mg BID DEISY Administration Fentanyl 50 mcg 03/05/21 09:38 03/12/21 17:58 Fentanyl 100 Mcg/2 Ml Inj IV 50 mcg Q10MIN PRN Administration ANALGESIA Gabapentin 400 mg 02/19/21 04:00 03/17/21 10:09 Gabapentin 400 Mg Cap PO 400 mg BID DEISY Administration Hydrophilic Ointment 1 applic 03/05/21 09:39 Lip Therapy Vaseline TP Q2HR PRN Dry Lips Propofol 1,000 mg in 100 mls @ 2.585 mls/hr 03/05/21 10:00 03/17/21 11:58 Diprivan 10 Mg/Ml IV 20 mcg/kg/min TITR DEISY 10.342 mls/hr Administration Protocol 5 MCG/KG/MIN Fentanyl Citrate 2,000 mcg in 100 mls @ 4.309 mls/hr 03/05/21 10:00 03/17/21 10:08 Fentanyl Drip Premix IV 3 mcg/kg/hr TITR DEISY 12.927 mls/hr Administration Protocol 1 MCG/KG/HR Midazolam HCl 100 mg/ Sodium 100 mls @ 1 mls/hr 03/05/21 11:00 03/16/21 22:33 Chloride IV 3 mg/hr TITR DEISY 3 mls/hr Administration Protocol 1 MG/HR NORepinephrine/NS 8 MG-250 ML 8 mg in 250 mls @ 3.75 mls/hr 03/05/21 10:15 03/17/21 05:57 Norepinephrine/Ns 8 Mg-250 Ml (Double Conc) IV 4 mcg/min TITRATE DEISY 7.5 mls/hr Administration Protocol 2 MCG/MIN Dexmedetomidine HCl 400 mcg/ 104 mls @ 4.482 mls/hr 03/05/21 14:00 Sodium Chloride IV TITRATE [facility] Protocol 0.2 MCG/KG/HR Vasopressin 20 unit/ Sodium 101 mls @ 9.09 mls/hr 03/06/21 06:00 03/08/21 10:30 Chloride IV 0 units/min TITR DEISY 0 mls/hr Titration Protocol 0.03 UNITS/MIN Insulin Glargine 10 units 03/02/21 22:00 03/16/21 22:25 Insulin Glargine 100 Units/Ml SUB-Q 10 units QHS [facility] Administration Insulin Human Lispro 0 unit 03/05/21 18:00 03/17/21 05:57 Insulin Lispro 100 Unit/Ml SUB-Q Not Given Q6HR [facility] Protocol Midazolam HCl 2 mg 03/05/21 10:11 03/05/21 10:53 Midazolam 2 Mg/2 Ml Inj IV 2 mg Q10MIN PRN Administration Sedation Multi-Ingred Cream/Lotion/Oil/Oint 1 applic 03/05/21 09:39 Mineral Oil/Petrolatum, White Ophth Oint 3.5 Gm OU Q4HR PRN Dry Eye(s) Ondansetron HCl 4 mg 02/17/21 23:58 Ondansetron 4 Mg/2 Ml Inj IV Q8H PRN Nausea And Vomiting Senna/Docusate Sodium 1 tab 03/05/21 10:00 03/17/21 10:10 Sennosides/Docusate Sodium 8.6/50 Mg Tab FEEDTUBE Not Given BID DEISY Sertraline HCl 50 mg 02/19/21 10:00 03/17/21 10:09 Sertraline 50 Mg Tab PO 50 mg QDAY DEISY Administration Sodium Chloride 10 ml 02/18/21 10:00 03/17/21 10:09 Sodium Chloride 0.9% 10 Ml Flush Syringe IV 10 ml BID DEISY Administration Sodium Chloride 10 ml 02/17/21 23:58 Sodium Chloride 0.9% 10 Ml Flush Syringe IV PRN PRN LINE FLUSH Sodium Chloride 10 ml 03/11/21 09:49 Sodium Chloride 0.9% 50 Ml Ivpb IV PRN PRN FLUSH Nutrition/Malnutrition Assess - Dietary Evaluation Nutrition/Malnutrition Findings: Nutrition Notes Start: 02/25/21 16:10 Freq: Status: Active Protocol: Document 03/11/21 16:53 ALEC (Rec: 03/11/21 17:06 ALEC [id number]) Nutrition Notes Initial or Follow up Brief Note Current Diet TF-Glucerna 1.2 Dagoberto @ 48 ml/hr (since D 03/08). Height 5 ft 6 in Weight 86.183 kg [place] Body Weight (kg) 59.09 BMI 30.7 Weight change and time frame No body weight change reported . Weight Status Obese Subjective/Other Information RD consult for routinr F/U on TF tolerance. Pt continues on mechanical ventilation. TF well tolerated, according to RN notes. Percent of energy/protein needs met: Prescribed Glucerna 1.2 Dagoberto @ 48 ml/hr provides for energy/ protein needs (1,390 Kcal/70 g ) during LOS, 100% Kcal; 75% AA. #2 Nutrition Diagnosis Inadequate oral intake Diagnosis Progress(for reassessment Continues documentation) #1 Nutrition Diagnosis Inadequate protein-energy intake Diagnosis Progress(for reassessment Continues documentation) Is patient on ventilator? Yes Is Patient Ambulatory and/or Out of Bed No REE-([facility]-confined to bed) 6027.120 Calculation Used for Recommendations 70-80% energy needs Additional Notes Energy: 6141-4452 kcal/day Protein: 1.3 g/kg adjBW: 94 g/ day Fluids: 1 ml/kcal, or as per MD. Nutrition Intervention Nutrition Support: Continue Glucerna 1.2 Dagoberto @ 50 ml/hr. Flush: 80 ml water Q 4 hr, or as per MD. Kcal 1,440 Protein (gm) 72 Carbohydrates (gm) 137 Fat (gm) 72 Fluid (mL) 966 Fiber (gm) 19 % RDI: 100% Kcal; 75% AA. Goal #1 Provide at least 75% of energy /protein needs through Enteral Feeding during LOS. Follow-Up By: 03/18/21 Additional Comments Continue monitoring TF tolerance and BM. <RIN JAMISON - Last Filed: 03/19/21 10:21> Assessment and Plan Assessment and plan: I saw and evaluated the patient. Discussed with the nurse practitioner and agree with their findings and plan as documented in this note. - Patient Problems (1) Cardiac arrest Status: Acute (2) Acute respiratory failure with hypoxia Status: Acute (3) Multifocal pneumonia Status: Acute (4) Pneumonia due to COVID-19 virus Status: Acute Hospitalist Physical - Constitutional Vitals: Temp Pulse Resp BP Pulse Ox 99.2 F 91 H 33 H 99/56 0 L 03/18/21 08:00 03/18/21 09:30 03/18/21 09:30 03/18/21 09:30 03/18/21 12:44 Results - Labs CBC & Chem 7: 03/17/21 04:00 03/17/21 04:00 Labs: Laboratory Last Values WBC 14.7 K/mm3 (4.5-11.0) H 03/17/21 04:00 RBC 3.01 M/mm3 (3.65-5.03) L 03/17/21 04:00 Hgb 8.6 gm/dl (10.1-14.3) L 03/17/21 04:00 Hct 27.8 % (30.3-42.9) L 03/17/21 04:00 MCV 92 fl (79-97) 03/17/21 04:00 MCH 29 pg (28-32) 03/17/21 04:00 MCHC 31 % (30-34) 03/17/21 04:00 RDW 15.6 % (13.2-15.2) H 03/17/21 04:00 Plt Count 404 K/mm3 (140-440) 03/17/21 04:00 Add Manual Diff Complete 03/05/21 10:10 Total Counted 100 03/05/21 10:10 Seg Neuts % (Manual) 77.0 % (40.0-70.0) H 03/05/21 10:10 Band Neutrophils % 3.0 % 03/05/21 10:10 Lymphocytes % (Manual) 12.0 % (13.4-35.0) L 03/05/21 10:10 Reactive Lymphs % (Man) 2.0 % 03/05/21 10:10 Monocytes % (Manual) 5.0 % (0.0-7.3) 03/05/21 10:10 Eosinophils % (Manual) 1.0 % (0.0-4.3) 03/05/21 10:10 Basophils % (Manual) 0 % (0.0-1.8) 03/05/21 10:10 Metamyelocytes % 0 % 03/05/21 10:10 Myelocytes % 0 % 03/05/21 10:10 Promyelocytes % 0 % 03/05/21 10:10 Blast Cells % 0 % 03/05/21 10:10 Nucleated RBC % Not Reportable 03/05/21 10:10 Seg Neutrophils # Man 13.7 K/mm3 (1.8-7.7) H 03/05/21 10:10 Band Neutrophils # 0.5 K/mm3 03/05/21 10:10 Lymphocytes # (Manual) 2.1 K/mm3 (1.2-5.4) 03/05/21 10:10 Abs React Lymphs (Man) 0.4 K/mm3 03/05/21 10:10 Monocytes # (Manual) 0.9 K/mm3 (0.0-0.8) H 03/05/21 10:10 Eosinophils # (Manual) 0.2 K/mm3 (0.0-0.4) 03/05/21 10:10 Basophils # (Manual) 0.0 K/mm3 (0.0-0.1) 03/05/21 10:10 Metamyelocytes # 0.0 K/mm3 03/05/21 10:10 Myelocytes # 0.0 K/mm3 03/05/21 10:10 Promyelocytes # 0.0 K/mm3 03/05/21 10:10 Blast Cells # 0.0 K/mm3 03/05/21 10:10 WBC Morphology Not Reportable 03/05/21 10:10 Hypersegmented Neuts Not Reportable 03/05/21 10:10 Hyposegmented Neuts Not Reportable 03/05/21 10:10 Hypogranular Neuts Not Reportable 03/05/21 10:10 Smudge Cells Not Reportable 03/05/21 10:10 Toxic Granulation Not Reportable 03/05/21 10:10 Toxic Vacuolation Not Reportable 03/05/21 10:10 Dohle Bodies Not Reportable 03/05/21 10:10 Pelger-Huet Anomaly Not Reportable 03/05/21 10:10 Cindy Rods Not Reportable 03/05/21 10:10 Platelet Estimate Consistent w auto 03/05/21 10:10 Clumped Platelets Not Reportable 03/05/21 10:10 Plt Clumps, EDTA Not Reportable 03/05/21 10:10 Large Platelets 1+ 03/05/21 10:10 Giant Platelets Not Reportable 03/05/21 10:10 Platelet Satelliting Not Reportable 03/05/21 10:10 Plt Morphology Comment Not Reportable 03/05/21 10:10 RBC Morphology Not Reportable 03/05/21 10:10 Dimorphic RBCs Not Reportable 03/05/21 10:10 Polychromasia Few 03/05/21 10:10 Hypochromasia Not Reportable 03/05/21 10:10 Poikilocytosis Not Reportable 03/05/21 10:10 Anisocytosis 1+ 03/05/21 10:10 Microcytosis Not Reportable 03/05/21 10:10 Macrocytosis Not Reportable 03/05/21 10:10 Spherocytes Not Reportable 03/05/21 10:10 Pappenheimer Bodies Not Reportable 03/05/21 10:10 Sickle Cells Not Reportable 03/05/21 10:10 Target Cells Not Reportable 03/05/21 10:10 Tear Drop Cells Not Reportable 03/05/21 10:10 Ovalocytes Not Reportable 03/05/21 10:10 Helmet Cells Not Reportable 03/05/21 10:10 [place]-Raoul Bodies Not Reportable 03/05/21 10:10 [place] Rings Not Reportable 03/05/21 10:10 [place] Cells Not Reportable 03/05/21 10:10 Bite Cells Not Reportable 03/05/21 10:10 Crenated Cell Not Reportable 03/05/21 10:10 Elliptocytes Not Reportable 03/05/21 10:10 Acanthocytes (Spur) Not Reportable 03/05/21 10:10 Rouleaux Not Reportable 03/05/21 10:10 Hemoglobin C Crystals Not Reportable 03/05/21 10:10 Schistocytes Not Reportable 03/05/21 10:10 Malaria parasites Not Reportable 03/05/21 10:10 [place] Bodies Not Reportable 03/05/21 10:10 Hem Pathologist Commnt No 03/05/21 10:10 PT 13.9 Sec. (12.2-14.9) 02/17/21 14:34 INR 0.96 (0.87-1.13) 02/17/21 14:34 APTT 26.4 Sec. (24.2-36.6) 02/17/21 14:34 D-Dimer 3469.99 ng/mlDDU (0-234) H 03/01/21 05:12 ABG pH 7.275 (7.320-7.450) L 03/18/21 05:16 POC ABG pCO2 78.2 mmHg (32.0-48.0) H 03/18/21 05:16 ABG pCO2 75.5 mm Hg 03/17/21 05:05 POC ABG pO2 65.3 mmHg (83-108) L 03/18/21 05:16 ABG pO2 80.4 mm Hg (80.0-90.0) 03/17/21 05:05 POC ABG HCO3 35.5 03/18/21 05:16 ABG HCO3 37.6 mmol/L (20.0-26.0) H 03/17/21 05:05 ABG O2 Saturation 90.8 (0-100) 03/18/21 05:16 ABG O2 Content 12.6 (0.0-44) 03/17/21 05:05 POC ABG Base Excess 6.9 03/18/21 05:16 ABG Base Excess 9.5 mmol/L (-2.0-3.0) H 03/17/21 05:05 ABG Hemoglobin 9.8 (12.0-17.5) L 03/18/21 05:16 ABG Oxyhemoglobin 89.6 (94-98) L 03/18/21 05:16 ABG Carboxyhemoglobin 2.1 % (0.0-5.0) 03/17/21 05:05 ABG Methemoglobin 0.1 (0.0-1.5) 03/18/21 05:16 Oxyhemoglobin 93.4 % (95.0-99.0) L 03/17/21 05:05 Carboxyhemoglobin 1.2 (0.5-1.5) 03/18/21 05:16 FiO2 70 % 03/17/21 05:05 FiO2 % 70.0 03/18/21 05:16 Sodium 147 mmol/L (137-145) H 03/17/21 04:00 Potassium 5.6 mmol/L (3.6-5.0) H D 03/17/21 04:00 Chloride 105.3 mmol/L (98-107) 03/17/21 04:00 Carbon Dioxide 34 mmol/L (22-30) H 03/17/21 04:00 Anion Gap 13 mmol/L 03/17/21 04:00 BUN 74 mg/dL (7-17) H 03/17/21 04:00 Creatinine 0.8 mg/dL (0.6-1.2) 03/17/21 04:00 Estimated GFR > 60 ml/min 03/17/21 04:00 BUN/Creatinine Ratio 93 % 03/17/21 04:00 Glucose 129 mg/dL (65-100) H 03/17/21 04:00 POC Glucose 118 mg/dL (70-105) H 03/18/21 11:06 Lactic Acid 1.60 mmol/L (0.7-2.0) 02/17/21 18:39 Calcium 9.4 mg/dL (8.4-10.2) 03/17/21 04:00 Phosphorus 4.70 mg/dL (2.5-4.5) H 03/14/21 07:17 Magnesium 2.80 mg/dL (1.7-2.3) H 03/14/21 07:17 Ferritin 1526.0 ng/mL (10.0-200.0) H 03/01/21 05:12 Total Bilirubin 0.30 mg/dL (0.1-1.2) 03/05/21 10:10 Direct Bilirubin < 0.2 mg/dL (0-0.2) 02/17/21 14:34 Indirect Bilirubin 0.1 mg/dL 02/17/21 14:34 AST 38 units/L (5-40) 03/05/21 10:10 ALT 44 units/L (7-56) 03/05/21 10:10 Alkaline Phosphatase 78 units/L (35-129) 03/05/21 10:10 Lactate Dehydrogenase 385 units/L (91-180) H 03/01/21 05:12 C-Reactive Protein 11.20 mg/dL (0.00-1.30) H 03/01/21 05:12 NT-Pro-B Natriuret Pep 86.77 pg/mL (0-900) 02/20/21 16:34 Total Protein 7.7 g/dL (6.3-8.2) 03/05/21 10:10 Albumin 3.1 g/dL (3.9-5) L 03/05/21 10:10 Albumin/Globulin Ratio 0.7 % 03/05/21 10:10 Triglycerides 169 mg/dL (2-149) H 03/16/21 05:00 Procalcitonin 0.11 ng/mL (<0.15) 02/19/21 07:32 Urine Color Cassandra (Yellow) 02/18/21 Unknown Urine Turbidity Cloudy (Clear) 02/18/21 Unknown Urine pH 5.0 (5.0-7.0) 02/18/21 Unknown Ur Specific [place] 1.027 (1.003-1.030) 02/18/21 Unknown Urine Protein 100 mg/dl mg/dL (Negative) 02/18/21 Unknown Urine Glucose (UA) Neg mg/dL (Negative) 02/18/21 Unknown Urine Ketones Neg mg/dL (Negative) 02/18/21 Unknown Urine Blood Neg (Negative) 02/18/21 Unknown Urine Nitrite Neg (Negative) 02/18/21 Unknown Urine Bilirubin Neg (Negative) 02/18/21 Unknown Urine Urobilinogen < 2.0 mg/dL (<2.0) 02/18/21 Unknown Ur Leukocyte Esterase Neg (Negative) 02/18/21 Unknown Urine WBC (Auto) 7.0 /HPF (0.0-6.0) H 02/18/21 Unknown Urine RBC (Auto) 4.0 /HPF (0.0-6.0) 02/18/21 Unknown U Epithel Cells (Auto) 3.0 /HPF (0-13.0) 02/18/21 Unknown Urine Mucus 2+ /HPF 02/18/21 Unknown Urine Creatinine 247.7 mg/dL (0.1-20.0) H 03/06/21 09:00 Urine Sodium 25 mmol/L 03/06/21 09:00 Coronavirus (PCR) Positive (Negative) A 02/18/21 Unknown Head/IV: Voiding Method Indwelling Catheter Nutrition/Malnutrition Assess - Dietary Evaluation Nutrition/Malnutrition Findings: Nutrition Notes Start: 02/25/21 16:10 Freq: Status: Discharge Protocol: Document 03/18/21 12:20 [facility] (Rec: 03/18/21 12:24 [id number]) Nutrition Notes Initial or Follow up Reassessment Current Diagnosis Diabetes,Hypertension, Respiratory Failure Other Pertinent Diagnosis COVID-19 pneu, SIRS Current Diet TF - Glucerna 1.2 at 50ml/hr Labs/Tests Reviewed Pertinent Medications Propofol at 10.342ml/hr ( provides 273 kcal) Height 5 ft 6 in Weight 86.183 kg [place] Body Weight (kg) 59.09 BMI 30.7 Weight Status Obese Subjective/Other Information Pt remains on vent support. Pt's family planning withdrawal of care today. Burn Absent Trauma Absent #2 Nutrition Diagnosis Inadequate oral intake Diagnosis Progress(for reassessment Continues documentation) Is patient on ventilator? Yes Is Patient Ambulatory and/or Out of Bed No REE-([facility]-confined to bed) 1737.120 Calculation Used for Recommendations 70-80% energy needs Additional Notes Energy: 6237-3940 kcal/day Protein: 1.3 g/kg adjBW: 94 g/ day Fluids: 1 ml/kcal, or as per MD. Nutrition Intervention Nutrition Support: Continue Glucerna 1.2 at 50ml/ hr as necessary Kcal 1,440 Protein (gm) 72 Carbohydrates (gm) 137 Fat (gm) 72 Fluid (mL) 966 Fiber (gm) 19 Goal #1 TF tolerance Goal #2 TF to meet at least 75% energy and pro needs Follow-Up By: 03/22/21 Additional Comments F/U: TF tolerance, vent status , propofol
[2021-03-17] MEDS: INSULIN GLARGINE 100 UNITS/ML SUB-Q SCH (21:04)
[2021-03-18] MEDS: INSULIN LISPRO 100 UNIT/ML SUB-Q SCH ×2 (00:29→05:52)
[2021-03-18] MEDS: fentaNYL DRIP Premix 2,000 MCG/100 ML BAG IV SCH ×2 (01:57→09:09)
[2021-03-18] MEDS: FREE WATER PO SCH ×3 (05:16→10:18)
[2021-03-18] MEDS: MIDAZOLAM 100 MG in SODIUM CHLORIDE 0.9% 80 ML IV SCH (06:46)
[2021-03-18 09:49] VITALS: BP 99/56
[2021-03-18] MEDS: SENNOSIDES/DOCUSATE SODIUM 8.6/50 MG TAB FEEDTUBE SCH (10:17)
[2021-03-18] MEDS: FAMOTIDINE 20 MG TAB FEEDTUBE SCH (10:18)
[2021-03-18] MEDS: GABAPENTIN 400 MG CAP PO SCH (10:18)
[2021-03-18] MEDS: ENOXAPARIN 100 MG/1 ML INJ SUB-Q SCH (10:18)
[2021-03-18] MEDS: SERTRALINE 50 MG TAB PO SCH (10:19)
--- NOTE | 2021-03-18 10:23 | Progress Note ---
Assessment and Plan 61 y/o female with acute respiratory failure secondary to COVID 19 pneumonia. 03/18/21: Family to come today at noon to visit and withdraw. Will place withdraw of order set. Maintain comfort measures. 03/17/21: fAmily to come tomorrow to likely with draw care. Continue supportive measures for now. Sat is 90 on 70% and still on 20 of PEEP. Poor prognosis. 03/16/21: Dropped FIO2 down to 70%. Keep Peep at 20. Will reach out to michael mckee again on Thursday to see if they have had any discussions about further plans for her mother. Continue supportive measures and continue to wean for sats >88% and PaO2 >55. Needs chemistry for the am. 03/15/21: Continue supportive measures. Continue to monitor renal function and fluid balance. May need to give a bolus today as she is back on levophed. She was on lasix daily prior to intubation. Prognosis still remains guarded to poor. Still no real success with weaning FiO2. 03/14/21: Long discussion over the phone with daughter at request of charge nurse. Updated her on her mothers current condition and lack of improvement. She states that she has been thinking about what the next steps would be for her mother. I explained to her that her vent settings are too high for trach and peg at this moment. The other option would be, knowing that her mother did not want to be intubated but rescinded her DNR at the request of the daughter, to consider comfort measures for her. The daughter states that she will speak with her Aunt (patients sister) and they will let us know. WIll continue supportive measures and attempt to wean FIO2 to at least 60%. ONce there, can start weaning PEEP if able to get there. Monitor fluids and renal function. OVerall prognosis is guarded to poor. Also discussed the very high mortality rate associated with COVID patients and mechanical ventilation. 03/13/21: K is better but looks like it may be trending up again. Continue to monitor. Continue anticoagulation. Wean FiO2 for sats >88% and PaO2>55. Goal would be to get FiO2 to at least 60% or less. Still making urine. Prognosis however remains guarded to poor. 03/12/21: K is elevated again today. No evidence of bleeding. Plateletes did drop but still good levels. Will monitor. Wean levophed as tolerated. Continues to make good urine. Guarded to poor prognosis. 03/11/21: K is elevated but renal function and urine output remains stable. Elba ntain current level of sedation. On Levophed, may need to give more volume. Ok with weaning FiO2 for sats >88% and or PaO2 of 55 and greater. Unable to prone at this time. Guarded prognosis. 03/08/21: Continue to monitor urine output and function. Consider more fluid today. Maintain current level of sedation. Wean FiO2 for sats >88% and or PaO2 >55. Prognosis still remains guarded. Please do not wean PEEP until FiO2 as at 45-50% 03/07/21: Continue supportive measures. Monitor urine output and function. Labs are better today and she did put out more urine with fluid bolus so will give again today. Overall prognosis remains extremely guarded. 03/06/21: Overall clinical state is worsening. Now with difficulty ventilation and with improved ventilation comes a compromise in oxygenation. Newest concern is renal function which is worsening. If patient requires dialysis then mortality increases and prognosis worsens. If requires HD, prognosis is very very guarded to poor. 03/05/21: Added versed drip to fent and Diprovan to keep RASS at -4. Will also order precedex in the event it is needed. Repeat ABG somewhat improved but increased RR. Must watch Peak Pressures. attempting to do low lung volume protective ventilator strategy. Patient has actually been off steroids for some time. Will not restart as of yet. Unable to prone. Guarded prognosis. This discussion was had over the weekend with the daughter when I thought we would have to intubate then. Explained that vent is not therapy but only something to give her lungs time to rest, if possible to see if they can recover. Prognosis is very guarded to poor. 03/04/21: Continue supportive care between HFNC and bipap therapy. Steroids. Positive reinforcement. 03/03/21: Long discussion at bedside with patient. Today she stated that she did not want to be intubated. I attempted to call her daughter while I was in the room with the patient but no answer. She will remain full code as she has said this in the past and then revoked after speaking with the daughter ( which is why i called her again this morning). Continue bipap and monitor. Guarded prognosis. 03/02/21: Prone if able. Continue steroids. Negative fluid balance if possible. Prognosis remains very guarded 02/28/21: Prone. Steroids. Net negative fluid balance if possible. Guarded prognosis. 02/27/21: Full code status. Prone as much as possible during the day and sleep prone at night. Patient may require intubation ultimately. Guarded prognosis. 02/26/21: Prone if possible. Continue anticoagulation for DVT. Steroids. Net negative fluid balance. 02/25/21: Long discussion at bedside with patient, whom per her, she has discussed this with her daughter. She does no want an endotracheal tube. She does not want chest compression and she does not want shocks. I did not ask about vasopressors. The patient is awake and alert and oriented. This needs to be addressed by primary team as well an if confirmed, I have no problem with cosigning AND order. Continue supportive measures for now. Guarded to poor prognosis. 02/21/21: BNP normal. Still would attempt to achieve net negative fluid balance daily. Continue Remdesivir and steroids. Prone if patient willing. Follow up CTA results. Discussed with IMS, may change anticoagulation but awaiting official ready on CTA. Guareded prognosis. 02/20/21: Follow up CTA results. Will send BNP. Continue steroids and Remdesivir. Guarded prognosis. Prone if able, very pertinent to do this. 1. self proning as tolerated during the day and prone at night while sleeping 2. Steroids and Remdesivir 3. Daily net negative volume state 4. Consider checking BNP and echo to make sure no edema on this film 5. Agree with empiric anticoagulation given elevated D-Dimer Guarded prognosis. Will continue to follow. CCT 31 minutes. Subjective Date of service: 03/18/21 Principal diagnosis: COVID pneumonia Interval history: No acute events. Family coming to withdraw care today at noon. Objective Vital Signs - 12hr 03/17/21 03/17/21 03/17/21 22:30 22:34 23:00 Temperature Pulse Rate 93 H 92 H 93 H Pulse Rate [ From Monitor] Respiratory 33 H 34 H 32 H Rate Blood Pressure 98/54 98/54 95/56 O2 Sat by Pulse 91 90 91 Oximetry 03/17/21 03/18/21 03/18/21 23:30 00:00 00:30 Temperature 99.8 F H Pulse Rate 91 H 92 H 91 H Pulse Rate [ 93 H From Monitor] Respiratory 33 H 18 31 H Rate Blood Pressure 100/55 97/52 102/55 O2 Sat by Pulse 90 90 90 Oximetry 03/18/21 03/18/21 03/18/21 01:00 01:30 02:00 Temperature Pulse Rate 90 91 H 94 H Pulse Rate [ From Monitor] Respiratory 33 H 33 H 32 H Rate Blood Pressure 103/56 97/54 102/56 O2 Sat by Pulse 91 91 91 Oximetry 03/18/21 03/18/21 03/18/21 02:30 03:00 03:27 Temperature 99.4 F Pulse Rate 92 H 91 H Pulse Rate [ From Monitor] Respiratory 32 H 33 H Rate Blood Pressure 95/53 100/58 O2 Sat by Pulse 92 89 Oximetry 03/18/21 03/18/21 03/18/21 03:30 04:00 04:30 Temperature Pulse Rate 92 H 92 H 93 H Pulse Rate [ 93 H From Monitor] Respiratory 24 29 H 26 H Rate Blood Pressure 106/66 103/67 107/68 O2 Sat by Pulse 89 92 90 Oximetry 03/18/21 03/18/21 03/18/21 05:00 05:30 06:00 Temperature Pulse Rate 95 H 93 H 92 H Pulse Rate [ From Monitor] Respiratory 28 H 29 H 20 Rate Blood Pressure 117/74 104/65 111/63 O2 Sat by Pulse 91 89 88 Oximetry 03/18/21 03/18/21 03/18/21 06:30 07:00 07:30 Temperature Pulse Rate 93 H 91 H 91 H Pulse Rate [ From Monitor] Respiratory 22 31 H 32 H Rate Blood Pressure 109/63 105/64 97/55 O2 Sat by Pulse 89 88 89 Oximetry 03/18/21 03/18/21 03/18/21 08:00 08:30 09:00 Temperature 99.2 F Pulse Rate 89 91 H 90 Pulse Rate [ 92 H From Monitor] Respiratory 31 H 28 H 32 H Rate Blood Pressure 101/61 99/59 105/63 O2 Sat by Pulse 90 89 89 Oximetry 03/18/21 03/18/21 09:25 09:30 Temperature Pulse Rate 91 H 91 H Pulse Rate [ From Monitor] Respiratory 33 H Rate Blood Pressure 101/61 99/56 O2 Sat by Pulse 89 88 Oximetry Constitutional: alert, other (on hiflo) ENT: oropharynx moist Neck: supple Ascultation: Bilateral: diminished breath sounds Cardiovascular: regular rate and rhythm Gastrointestinal: normoactive bowel sounds, soft, non-tender, non-distended Integumentary: normal Extremities: no cyanosis CBC and BMP: 03/17/21 04:00 03/17/21 04:00 ABG, PT/INR, D-dimer: ABG ABG pH 7.275 (7.320-7.450) L 03/18/21 05:16 POC ABG pCO2 78.2 mmHg (32.0-48.0) H 03/18/21 05:16 ABG pCO2 75.5 mm Hg 03/17/21 05:05 POC ABG pO2 65.3 mmHg (83-108) L 03/18/21 05:16 ABG pO2 80.4 mm Hg (80.0-90.0) 03/17/21 05:05 POC ABG HCO3 35.5 03/18/21 05:16 ABG O2 Saturation 90.8 (0-100) 03/18/21 05:16 PT/INR, D-dimer PT 13.9 Sec. (12.2-14.9) 02/17/21 14:34 INR 0.96 (0.87-1.13) 02/17/21 14:34 D-Dimer 3469.99 ng/mlDDU (0-234) H 03/01/21 05:12 Abnormal lab findings: Abnormal Labs 02/17/21 02/17/21 02/17/21 14:34 14:34 14:34 WBC 11.7 H RBC Hgb Hct 44.9 H RDW 15.6 H Plt Count Seg Neuts % (Manual) Lymphocytes % (Manual) 9.0 L Monocytes % (Manual) 12.0 H Seg Neutrophils # Man 8.2 H Lymphocytes # (Manual) 1.1 L Monocytes # (Manual) 1.4 H D-Dimer ABG pH POC ABG pCO2 POC ABG pO2 ABG pO2 ABG HCO3 ABG O2 Saturation ABG Base Excess ABG Hemoglobin ABG Oxyhemoglobin Oxyhemoglobin Carboxyhemoglobin Sodium Potassium 3.5 L Chloride Carbon Dioxide BUN 27 H Creatinine Glucose 150 H POC Glucose Lactic Acid 2.90 H* Calcium Phosphorus Magnesium Ferritin AST Lactate Dehydrogenase C-Reactive Protein NT-Pro-B Natriuret Pep Albumin Triglycerides Urine WBC (Auto) Urine Creatinine Coronavirus (PCR) 02/17/21 02/18/21 02/18/21 14:34 07:48 07:48 WBC 12.0 H RBC Hgb Hct RDW 15.4 H Plt Count Seg Neuts % (Manual) 76.0 H Lymphocytes % (Manual) Monocytes % (Manual) Seg Neutrophils # Man 9.1 H Lymphocytes # (Manual) Monocytes # (Manual) D-Dimer ABG pH POC ABG pCO2 POC ABG pO2 ABG pO2 ABG HCO3 ABG O2 Saturation ABG Base Excess ABG Hemoglobin ABG Oxyhemoglobin Oxyhemoglobin Carboxyhemoglobin Sodium Potassium Chloride Carbon Dioxide BUN 36 H Creatinine Glucose 133 H POC Glucose Lactic Acid Calcium Phosphorus Magnesium Ferritin AST 57 H Lactate Dehydrogenase C-Reactive Protein NT-Pro-B Natriuret Pep 1619 H Albumin 3.3 L Triglycerides Urine WBC (Auto) Urine Creatinine Coronavirus (PCR) 02/18/21 02/18/21 02/19/21 Unknown Unknown 07:32 WBC RBC Hgb Hct RDW Plt Count Seg Neuts % (Manual) Lymphocytes % (Manual) Monocytes % (Manual) Seg Neutrophils # Man Lymphocytes # (Manual) Monocytes # (Manual) D-Dimer ABG pH POC ABG pCO2 POC ABG pO2 ABG pO2 ABG HCO3 ABG O2 Saturation ABG Base Excess ABG Hemoglobin ABG Oxyhemoglobin Oxyhemoglobin Carboxyhemoglobin Sodium 148 H D Potassium Chloride Carbon Dioxide BUN 41 H Creatinine Glucose 123 H POC Glucose Lactic Acid Calcium Phosphorus Magnesium Ferritin AST 57 H Lactate Dehydrogenase C-Reactive Protein NT-Pro-B Natriuret Pep Albumin 3.7 L Triglycerides Urine WBC (Auto) 7.0 H Urine Creatinine Coronavirus (PCR) Positive A 02/19/21 02/19/21 02/20/21 07:32 08:43 05:00 WBC RBC Hgb Hct RDW Plt Count Seg Neuts % (Manual) Lymphocytes % (Manual) Monocytes % (Manual) Seg Neutrophils # Man Lymphocytes # (Manual) Monocytes # (Manual) D-Dimer > 00901 H ABG pH POC ABG pCO2 POC ABG pO2 ABG pO2 ABG HCO3 ABG O2 Saturation ABG Base Excess ABG Hemoglobin ABG Oxyhemoglobin Oxyhemoglobin Carboxyhemoglobin Sodium 147 H Potassium Chloride 107.6 H Carbon Dioxide BUN 36 H Creatinine Glucose POC Glucose Lactic Acid Calcium Phosphorus Magnesium Ferritin AST Lactate Dehydrogenase C-Reactive Protein 10.90 H NT-Pro-B Natriuret Pep Albumin 3.3 L Triglycerides Urine WBC (Auto) Urine Creatinine Coronavirus (PCR) 02/20/21 02/21/21 02/21/21 18:46 04:44 04:44 WBC 16.7 H RBC Hgb Hct RDW Plt Count Seg Neuts % (Manual) Lymphocytes % (Manual) Monocytes % (Manual) Seg Neutrophils # Man Lymphocytes # (Manual) Monocytes # (Manual) D-Dimer ABG pH 7.453 H POC ABG pCO2 POC ABG pO2 ABG pO2 55.0 L ABG HCO3 26.6 H ABG O2 Saturation 88.3 L ABG Base Excess ABG Hemoglobin ABG Oxyhemoglobin Oxyhemoglobin 86.8 L Carboxyhemoglobin Sodium Potassium Chloride Carbon Dioxide BUN 26 H Creatinine Glucose 111 H POC Glucose Lactic Acid Calcium Phosphorus Magnesium Ferritin AST Lactate Dehydrogenase C-Reactive Protein NT-Pro-B Natriuret Pep Albumin 3.4 L Triglycerides Urine WBC (Auto) Urine Creatinine Coronavirus (PCR) 02/22/21 02/23/21 02/23/21 04:47 09:05 09:05 WBC 19.3 H RBC 5.29 H Hgb 15.2 H Hct 47.7 H D RDW Plt Count Seg Neuts % (Manual) 82.0 H Lymphocytes % (Manual) 6.0 L Monocytes % (Manual) Seg Neutrophils # Man 15.8 H Lymphocytes # (Manual) Monocytes # (Manual) 1.0 H D-Dimer ABG pH POC ABG pCO2 POC ABG pO2 ABG pO2 ABG HCO3 ABG O2 Saturation ABG Base Excess ABG Hemoglobin ABG Oxyhemoglobin Oxyhemoglobin Carboxyhemoglobin Sodium Potassium Chloride Carbon Dioxide BUN 25 H 27 H Creatinine Glucose 125 H POC Glucose Lactic Acid Calcium Phosphorus Magnesium Ferritin AST Lactate Dehydrogenase C-Reactive Protein NT-Pro-B Natriuret Pep Albumin 3.3 L Triglycerides Urine WBC (Auto) Urine Creatinine Coronavirus (PCR) 02/23/21 02/23/21 02/24/21 11:33 16:24 04:50 WBC 14.8 H RBC Hgb Hct RDW Plt Count Seg Neuts % (Manual) Lymphocytes % (Manual) Monocytes % (Manual) Seg Neutrophils # Man Lymphocytes # (Manual) Monocytes # (Manual) D-Dimer ABG pH POC ABG pCO2 POC ABG pO2 ABG pO2 ABG HCO3 ABG O2 Saturation ABG Base Excess ABG Hemoglobin ABG Oxyhemoglobin Oxyhemoglobin Carboxyhemoglobin Sodium Potassium Chloride Carbon Dioxide BUN Creatinine Glucose POC Glucose 117 H 163 H Lactic Acid Calcium Phosphorus Magnesium Ferritin AST Lactate Dehydrogenase C-Reactive Protein NT-Pro-B Natriuret Pep Albumin Triglycerides Urine WBC (Auto) Urine Creatinine Coronavirus (PCR) 02/24/21 02/25/21 02/27/21 04:50 21:12 04:57 WBC 17.0 H RBC Hgb Hct 43.4 H RDW Plt Count Seg Neuts % (Manual) 84.0 H Lymphocytes % (Manual) 4.0 L Monocytes % (Manual) Seg Neutrophils # Man 14.3 H Lymphocytes # (Manual) 0.7 L Monocytes # (Manual) 0.9 H D-Dimer ABG pH POC ABG pCO2 POC ABG pO2 ABG pO2 ABG HCO3 ABG O2 Saturation ABG Base Excess ABG Hemoglobin ABG Oxyhemoglobin Oxyhemoglobin Carboxyhemoglobin Sodium Potassium Chloride Carbon Dioxide BUN 23 H Creatinine Glucose POC Glucose 175 H Lactic Acid Calcium Phosphorus Magnesium Ferritin AST Lactate Dehydrogenase C-Reactive Protein NT-Pro-B Natriuret Pep Albumin Triglycerides Urine WBC (Auto) Urine Creatinine Coronavirus (PCR) 02/27/21 02/27/21 02/27/21 04:57 04:57 04:57 WBC RBC Hgb Hct RDW Plt Count Seg Neuts % (Manual) Lymphocytes % (Manual) Monocytes % (Manual) Seg Neutrophils # Man Lymphocytes # (Manual) Monocytes # (Manual) D-Dimer 5013.37 H ABG pH POC ABG pCO2 POC ABG pO2 ABG pO2 ABG HCO3 ABG O2 Saturation ABG Base Excess ABG Hemoglobin ABG Oxyhemoglobin Oxyhemoglobin Carboxyhemoglobin Sodium Potassium Chloride Carbon Dioxide BUN 23 H Creatinine 0.5 L Glucose 113 H POC Glucose Lactic Acid Calcium Phosphorus Magnesium Ferritin 1272.0 H AST Lactate Dehydrogenase 438 H C-Reactive Protein 5.80 H NT-Pro-B Natriuret Pep Albumin Triglycerides Urine WBC (Auto) Urine Creatinine Coronavirus (PCR) 02/27/21 02/27/21 02/28/21 17:53 21:12 07:40 WBC RBC Hgb Hct RDW Plt Count Seg Neuts % (Manual) Lymphocytes % (Manual) Monocytes % (Manual) Seg Neutrophils # Man Lymphocytes # (Manual) Monocytes # (Manual) D-Dimer ABG pH POC ABG pCO2 POC ABG pO2 ABG pO2 ABG HCO3 ABG O2 Saturation ABG Base Excess ABG Hemoglobin ABG Oxyhemoglobin Oxyhemoglobin Carboxyhemoglobin Sodium Potassium Chloride Carbon Dioxide BUN Creatinine Glucose POC Glucose 159 H 112 H 123 H Lactic Acid Calcium Phosphorus Magnesium Ferritin AST Lactate Dehydrogenase C-Reactive Protein NT-Pro-B Natriuret Pep Albumin Triglycerides Urine WBC (Auto) Urine Creatinine Coronavirus (PCR) 02/28/21 02/28/21 02/28/21 11:42 16:20 22:26 WBC RBC Hgb Hct RDW Plt Count Seg Neuts % (Manual) Lymphocytes % (Manual) Monocytes % (Manual) Seg Neutrophils # Man Lymphocytes # (Manual) Monocytes # (Manual) D-Dimer ABG pH POC ABG pCO2 POC ABG pO2 ABG pO2 ABG HCO3 ABG O2 Saturation ABG Base Excess ABG Hemoglobin ABG Oxyhemoglobin Oxyhemoglobin Carboxyhemoglobin Sodium Potassium Chloride Carbon Dioxide BUN Creatinine Glucose POC Glucose 112 H 138 H 129 H Lactic Acid Calcium Phosphorus Magnesium Ferritin AST Lactate Dehydrogenase C-Reactive Protein NT-Pro-B Natriuret Pep Albumin Triglycerides Urine WBC (Auto) Urine Creatinine Coronavirus (PCR) 03/01/21 03/01/21 03/01/21 05:12 05:12 05:12 WBC 15.0 H RBC 5.05 H Hgb Hct 44.7 H RDW Plt Count Seg Neuts % (Manual) 71.0 H Lymphocytes % (Manual) 11.0 L Monocytes % (Manual) 12.0 H Seg Neutrophils # Man 10.7 H Lymphocytes # (Manual) Monocytes # (Manual) 1.8 H D-Dimer 3469.99 H ABG pH POC ABG pCO2 POC ABG pO2 ABG pO2 ABG HCO3 ABG O2 Saturation ABG Base Excess ABG Hemoglobin ABG Oxyhemoglobin Oxyhemoglobin Carboxyhemoglobin Sodium Potassium Chloride 97.3 L Carbon Dioxide BUN Creatinine 0.5 L Glucose 115 H POC Glucose Lactic Acid Calcium Phosphorus Magnesium Ferritin AST Lactate Dehydrogenase 385 H C-Reactive Protein 11.20 H NT-Pro-B Natriuret Pep Albumin 2.8 L Triglycerides Urine WBC (Auto) Urine Creatinine Coronavirus (PCR) 03/01/21 03/01/21 03/01/21 05:12 07:30 11:42 WBC RBC Hgb Hct RDW Plt Count Seg Neuts % (Manual) Lymphocytes % (Manual) Monocytes % (Manual) Seg Neutrophils # Man Lymphocytes # (Manual) Monocytes # (Manual) D-Dimer ABG pH POC ABG pCO2 POC ABG pO2 ABG pO2 ABG HCO3 ABG O2 Saturation ABG Base Excess ABG Hemoglobin ABG Oxyhemoglobin Oxyhemoglobin Carboxyhemoglobin Sodium Potassium Chloride Carbon Dioxide BUN Creatinine Glucose POC Glucose 130 H 143 H Lactic Acid Calcium Phosphorus Magnesium Ferritin 1526.0 H AST Lactate Dehydrogenase C-Reactive Protein NT-Pro-B Natriuret Pep Albumin Triglycerides Urine WBC (Auto) Urine Creatinine Coronavirus (PCR) 03/01/21 03/01/21 03/01/21 15:28 17:53 21:16 WBC RBC Hgb Hct RDW Plt Count Seg Neuts % (Manual) Lymphocytes % (Manual) Monocytes % (Manual) Seg Neutrophils # Man Lymphocytes # (Manual) Monocytes # (Manual) D-Dimer ABG pH POC ABG pCO2 POC ABG pO2 ABG pO2 ABG HCO3 ABG O2 Saturation ABG Base Excess ABG Hemoglobin ABG Oxyhemoglobin Oxyhemoglobin Carboxyhemoglobin Sodium Potassium Chloride Carbon Dioxide BUN Creatinine Glucose POC Glucose 138 H 120 H 157 H Lactic Acid Calcium Phosphorus Magnesium Ferritin AST Lactate Dehydrogenase C-Reactive Protein NT-Pro-B Natriuret Pep Albumin Triglycerides Urine WBC (Auto) Urine Creatinine Coronavirus (PCR) 03/01/21 03/02/21 03/02/21 22:07 07:44 11:40 WBC RBC Hgb Hct RDW Plt Count Seg Neuts % (Manual) Lymphocytes % (Manual) Monocytes % (Manual) Seg Neutrophils # Man Lymphocytes # (Manual) Monocytes # (Manual) D-Dimer ABG pH POC ABG pCO2 POC ABG pO2 ABG pO2 35.9 L* ABG HCO3 31.2 H ABG O2 Saturation 68.0 L ABG Base Excess 6.1 H ABG Hemoglobin ABG Oxyhemoglobin Oxyhemoglobin 66.1 L Carboxyhemoglobin Sodium Potassium Chloride Carbon Dioxide BUN Creatinine Glucose POC Glucose 125 H 203 H Lactic Acid Calcium Phosphorus Magnesium Ferritin AST Lactate Dehydrogenase C-Reactive Protein NT-Pro-B Natriuret Pep Albumin Triglycerides Urine WBC (Auto) Urine Creatinine Coronavirus (PCR) 03/02/21 03/02/21 03/02/21 12:13 13:00 17:15 WBC RBC Hgb Hct RDW Plt Count Seg Neuts % (Manual) Lymphocytes % (Manual) Monocytes % (Manual) Seg Neutrophils # Man Lymphocytes # (Manual) Monocytes # (Manual) D-Dimer ABG pH POC ABG pCO2 POC ABG pO2 ABG pO2 36.0 L* ABG HCO3 29.5 H ABG O2 Saturation 68.7 L ABG Base Excess 4.7 H ABG Hemoglobin ABG Oxyhemoglobin Oxyhemoglobin 66.8 L Carboxyhemoglobin Sodium Potassium Chloride Carbon Dioxide BUN Creatinine Glucose POC Glucose 130 H 126 H Lactic Acid Calcium Phosphorus Magnesium Ferritin AST Lactate Dehydrogenase C-Reactive Protein NT-Pro-B Natriuret Pep Albumin Triglycerides Urine WBC (Auto) Urine Creatinine Coronavirus (PCR) 03/02/21 03/03/21 03/03/21 21:45 08:02 10:05 WBC 19.2 H RBC Hgb Hct 44.9 H RDW Plt Count Seg Neuts % (Manual) 85.0 H Lymphocytes % (Manual) 7.0 L Monocytes % (Manual) Seg Neutrophils # Man 16.3 H Lymphocytes # (Manual) Monocytes # (Manual) 1.2 H D-Dimer ABG pH POC ABG pCO2 POC ABG pO2 ABG pO2 ABG HCO3 ABG O2 Saturation ABG Base Excess ABG Hemoglobin ABG Oxyhemoglobin Oxyhemoglobin Carboxyhemoglobin Sodium Potassium Chloride Carbon Dioxide BUN Creatinine Glucose POC Glucose 113 H 128 H Lactic Acid Calcium Phosphorus Magnesium Ferritin AST Lactate Dehydrogenase C-Reactive Protein NT-Pro-B Natriuret Pep Albumin Triglycerides Urine WBC (Auto) Urine Creatinine Coronavirus (PCR) 03/03/21 03/03/21 03/03/21 10:05 12:45 16:31 WBC RBC Hgb Hct RDW Plt Count Seg Neuts % (Manual) Lymphocytes % (Manual) Monocytes % (Manual) Seg Neutrophils # Man Lymphocytes # (Manual) Monocytes # (Manual) D-Dimer ABG pH POC ABG pCO2 POC ABG pO2 ABG pO2 47.7 L ABG HCO3 31.5 H ABG O2 Saturation 82.5 L ABG Base Excess 5.6 H ABG Hemoglobin ABG Oxyhemoglobin Oxyhemoglobin 80.4 L Carboxyhemoglobin Sodium Potassium Chloride 97.8 L Carbon Dioxide BUN 23 H Creatinine Glucose 141 H POC Glucose 126 H Lactic Acid Calcium Phosphorus Magnesium Ferritin AST Lactate Dehydrogenase C-Reactive Protein NT-Pro-B Natriuret Pep Albumin 3.2 L Triglycerides Urine WBC (Auto) Urine Creatinine Coronavirus (PCR) 03/03/21 03/04/21 03/04/21 20:52 07:24 11:04 WBC RBC Hgb Hct RDW Plt Count Seg Neuts % (Manual) Lymphocytes % (Manual) Monocytes % (Manual) Seg Neutrophils # Man Lymphocytes # (Manual) Monocytes # (Manual) D-Dimer ABG pH POC ABG pCO2 POC ABG pO2 ABG pO2 ABG HCO3 ABG O2 Saturation ABG Base Excess ABG Hemoglobin ABG Oxyhemoglobin Oxyhemoglobin Carboxyhemoglobin Sodium Potassium Chloride Carbon Dioxide BUN Creatinine Glucose POC Glucose 152 H 126 H 142 H Lactic Acid Calcium Phosphorus Magnesium Ferritin AST Lactate Dehydrogenase C-Reactive Protein NT-Pro-B Natriuret Pep Albumin Triglycerides Urine WBC (Auto) Urine Creatinine Coronavirus (PCR) 03/04/21 03/04/21 03/04/21 11:05 15:33 21:12 WBC RBC Hgb Hct RDW Plt Count Seg Neuts % (Manual) Lymphocytes % (Manual) Monocytes % (Manual) Seg Neutrophils # Man Lymphocytes # (Manual) Monocytes # (Manual) D-Dimer ABG pH POC ABG pCO2 POC ABG pO2 ABG pO2 ABG HCO3 ABG O2 Saturation ABG Base Excess ABG Hemoglobin ABG Oxyhemoglobin Oxyhemoglobin Carboxyhemoglobin Sodium Potassium Chloride Carbon Dioxide BUN 34 H Creatinine Glucose 143 H POC Glucose 114 H 180 H Lactic Acid Calcium Phosphorus Magnesium Ferritin AST Lactate Dehydrogenase C-Reactive Protein NT-Pro-B Natriuret Pep Albumin Triglycerides Urine WBC (Auto) Urine Creatinine Coronavirus (PCR) 03/04/21 03/05/21 03/05/21 21:30 07:51 10:10 WBC 17.8 H RBC Hgb 14.5 H Hct 45.8 H RDW 15.3 H Plt Count 446 H Seg Neuts % (Manual) 77.0 H Lymphocytes % (Manual) 12.0 L Monocytes % (Manual) Seg Neutrophils # Man 13.7 H Lymphocytes # (Manual) Monocytes # (Manual) 0.9 H D-Dimer ABG pH 7.473 H POC ABG pCO2 POC ABG pO2 ABG pO2 34.1 L* ABG HCO3 29.7 H ABG O2 Saturation 66.4 L ABG Base Excess 5.6 H ABG Hemoglobin ABG Oxyhemoglobin Oxyhemoglobin 64.9 L Carboxyhemoglobin Sodium Potassium Chloride Carbon Dioxide BUN Creatinine Glucose POC Glucose 144 H Lactic Acid Calcium Phosphorus Magnesium Ferritin AST Lactate Dehydrogenase C-Reactive Protein NT-Pro-B Natriuret Pep Albumin Triglycerides Urine WBC (Auto) Urine Creatinine Coronavirus (PCR) 03/05/21 03/05/21 03/05/21 10:10 11:41 12:23 WBC RBC Hgb Hct RDW Plt Count Seg Neuts % (Manual) Lymphocytes % (Manual) Monocytes % (Manual) Seg Neutrophils # Man Lymphocytes # (Manual) Monocytes # (Manual) D-Dimer ABG pH 7.226 L POC ABG pCO2 POC ABG pO2 ABG pO2 50.5 L ABG HCO3 32.8 H ABG O2 Saturation 73.6 L ABG Base Excess ABG Hemoglobin 18.2 H ABG Oxyhemoglobin Oxyhemoglobin 71.8 L Carboxyhemoglobin Sodium Potassium 3.5 L Chloride Carbon Dioxide BUN 51 H Creatinine Glucose 217 H POC Glucose 124 H Lactic Acid Calcium Phosphorus Magnesium Ferritin AST Lactate Dehydrogenase C-Reactive Protein NT-Pro-B Natriuret Pep Albumin 3.1 L Triglycerides Urine WBC (Auto) Urine Creatinine Coronavirus (PCR) 03/05/21 03/05/21 03/06/21 16:40 22:39 00:37 WBC RBC Hgb Hct RDW Plt Count Seg Neuts % (Manual) Lymphocytes % (Manual) Monocytes % (Manual) Seg Neutrophils # Man Lymphocytes # (Manual) Monocytes # (Manual) D-Dimer ABG pH POC ABG pCO2 POC ABG pO2 ABG pO2 ABG HCO3 ABG O2 Saturation ABG Base Excess ABG Hemoglobin ABG Oxyhemoglobin Oxyhemoglobin Carboxyhemoglobin Sodium Potassium Chloride Carbon Dioxide BUN Creatinine Glucose POC Glucose 138 H 139 H 126 H Lactic Acid Calcium Phosphorus Magnesium Ferritin AST Lactate Dehydrogenase C-Reactive Protein NT-Pro-B Natriuret Pep Albumin Triglycerides Urine WBC (Auto) Urine Creatinine Coronavirus (PCR) 03/06/21 03/06/21 03/06/21 04:25 06:13 06:13 WBC 18.4 H RBC Hgb Hct RDW 15.3 H Plt Count Seg Neuts % (Manual) Lymphocytes % (Manual) Monocytes % (Manual) Seg Neutrophils # Man Lymphocytes # (Manual) Monocytes # (Manual) D-Dimer ABG pH 7.028 L* POC ABG pCO2 POC ABG pO2 ABG pO2 ABG HCO3 33.8 H ABG O2 Saturation 92.5 L ABG Base Excess ABG Hemoglobin ABG Oxyhemoglobin Oxyhemoglobin 90.6 L Carboxyhemoglobin Sodium 149 H Potassium Chloride 107.2 H Carbon Dioxide BUN 62 H Creatinine 1.9 H D Glucose 140 H POC Glucose Lactic Acid Calcium 7.7 L D Phosphorus 10.70 H Magnesium 2.40 H Ferritin AST Lactate Dehydrogenase C-Reactive Protein NT-Pro-B Natriuret Pep Albumin Triglycerides Urine WBC (Auto) Urine Creatinine Coronavirus (PCR) 03/06/21 03/06/21 03/06/21 06:13 09:00 12:00 WBC RBC Hgb Hct RDW Plt Count Seg Neuts % (Manual) Lymphocytes % (Manual) Monocytes % (Manual) Seg Neutrophils # Man Lymphocytes # (Manual) Monocytes # (Manual) D-Dimer ABG pH POC ABG pCO2 POC ABG pO2 ABG pO2 ABG HCO3 ABG O2 Saturation ABG Base Excess ABG Hemoglobin ABG Oxyhemoglobin Oxyhemoglobin Carboxyhemoglobin Sodium Potassium Chloride Carbon Dioxide BUN Creatinine Glucose POC Glucose 155 H 122 H Lactic Acid Calcium Phosphorus Magnesium Ferritin AST Lactate Dehydrogenase C-Reactive Protein NT-Pro-B Natriuret Pep Albumin Triglycerides Urine WBC (Auto) Urine Creatinine 247.7 H Coronavirus (PCR) 03/06/21 03/06/21 03/06/21 17:16 22:23 Unknown WBC RBC Hgb Hct RDW Plt Count Seg Neuts % (Manual) Lymphocytes % (Manual) Monocytes % (Manual) Seg Neutrophils # Man Lymphocytes # (Manual) Monocytes # (Manual) D-Dimer ABG pH 7.253 L POC ABG pCO2 POC ABG pO2 ABG pO2 66.5 L ABG HCO3 31.3 H ABG O2 Saturation 91.8 L ABG Base Excess ABG Hemoglobin 16.8 H ABG Oxyhemoglobin Oxyhemoglobin 90.1 L Carboxyhemoglobin Sodium Potassium Chloride Carbon Dioxide BUN Creatinine Glucose POC Glucose 123 H 123 H Lactic Acid Calcium Phosphorus Magnesium Ferritin AST Lactate Dehydrogenase C-Reactive Protein NT-Pro-B Natriuret Pep Albumin Triglycerides Urine WBC (Auto) Urine Creatinine Coronavirus (PCR) 03/07/21 03/07/21 03/07/21 00:36 04:05 04:05 WBC 18.0 H RBC Hgb Hct RDW Plt Count Seg Neuts % (Manual) Lymphocytes % (Manual) Monocytes % (Manual) Seg Neutrophils # Man Lymphocytes # (Manual) Monocytes # (Manual) D-Dimer ABG pH POC ABG pCO2 POC ABG pO2 ABG pO2 ABG HCO3 ABG O2 Saturation ABG Base Excess ABG Hemoglobin ABG Oxyhemoglobin Oxyhemoglobin Carboxyhemoglobin Sodium Potassium Chloride Carbon Dioxide BUN 75 H Creatinine 1.5 H Glucose 113 H POC Glucose 121 H Lactic Acid Calcium Phosphorus Magnesium Ferritin AST Lactate Dehydrogenase C-Reactive Protein NT-Pro-B Natriuret Pep Albumin Triglycerides Urine WBC (Auto) Urine Creatinine Coronavirus (PCR) 03/07/21 03/07/21 03/07/21 04:05 04:49 05:38 WBC RBC Hgb Hct RDW Plt Count Seg Neuts % (Manual) Lymphocytes % (Manual) Monocytes % (Manual) Seg Neutrophils # Man Lymphocytes # (Manual) Monocytes # (Manual) D-Dimer ABG pH 7.280 L POC ABG pCO2 POC ABG pO2 ABG pO2 ABG HCO3 29.3 H ABG O2 Saturation ABG Base Excess ABG Hemoglobin ABG Oxyhemoglobin Oxyhemoglobin 94.4 L Carboxyhemoglobin Sodium Potassium Chloride Carbon Dioxide BUN Creatinine Glucose POC Glucose 112 H Lactic Acid Calcium Phosphorus Magnesium Ferritin AST Lactate Dehydrogenase C-Reactive Protein NT-Pro-B Natriuret Pep Albumin Triglycerides 171 H Urine WBC (Auto) Urine Creatinine Coronavirus (PCR) 03/07/21 03/07/21 03/08/21 12:13 18:13 04:30 WBC 12.5 H RBC Hgb Hct RDW Plt Count Seg Neuts % (Manual) Lymphocytes % (Manual) Monocytes % (Manual) Seg Neutrophils # Man Lymphocytes # (Manual) Monocytes # (Manual) D-Dimer ABG pH POC ABG pCO2 POC ABG pO2 ABG pO2 ABG HCO3 ABG O2 Saturation ABG Base Excess ABG Hemoglobin ABG Oxyhemoglobin Oxyhemoglobin Carboxyhemoglobin Sodium Potassium Chloride Carbon Dioxide BUN Creatinine Glucose POC Glucose 113 H 111 H Lactic Acid Calcium Phosphorus Magnesium Ferritin AST Lactate Dehydrogenase C-Reactive Protein NT-Pro-B Natriuret Pep Albumin Triglycerides Urine WBC (Auto) Urine Creatinine Coronavirus (PCR) 03/08/21 03/08/21 03/08/21 04:30 05:04 10:00 WBC RBC Hgb Hct RDW Plt Count Seg Neuts % (Manual) Lymphocytes % (Manual) Monocytes % (Manual) Seg Neutrophils # Man Lymphocytes # (Manual) Monocytes # (Manual) D-Dimer ABG pH POC ABG pCO2 POC ABG pO2 ABG pO2 73.8 L ABG HCO3 28.9 H ABG O2 Saturation ABG Base Excess ABG Hemoglobin 11.0 L ABG Oxyhemoglobin Oxyhemoglobin 93.4 L Carboxyhemoglobin Sodium Potassium Chloride Carbon Dioxide BUN 69 H Creatinine Glucose 107 H POC Glucose 111 H Lactic Acid Calcium Phosphorus Magnesium Ferritin AST Lactate Dehydrogenase C-Reactive Protein NT-Pro-B Natriuret Pep Albumin Triglycerides Urine WBC (Auto) Urine Creatinine Coronavirus (PCR) 03/08/21 03/08/21 03/09/21 17:09 21:35 04:00 WBC 11.4 H RBC 3.21 L Hgb 9.4 L Hct 29.6 L RDW Plt Count Seg Neuts % (Manual) Lymphocytes % (Manual) Monocytes % (Manual) Seg Neutrophils # Man Lymphocytes # (Manual) Monocytes # (Manual) D-Dimer ABG pH POC ABG pCO2 POC ABG pO2 ABG pO2 ABG HCO3 ABG O2 Saturation ABG Base Excess ABG Hemoglobin ABG Oxyhemoglobin Oxyhemoglobin Carboxyhemoglobin Sodium Potassium Chloride Carbon Dioxide BUN Creatinine Glucose POC Glucose 114 H 128 H Lactic Acid Calcium Phosphorus Magnesium Ferritin AST Lactate Dehydrogenase C-Reactive Protein NT-Pro-B Natriuret Pep Albumin Triglycerides Urine WBC (Auto) Urine Creatinine Coronavirus (PCR) 03/09/21 03/09/21 03/09/21 04:00 04:11 11:25 WBC RBC Hgb Hct RDW Plt Count Seg Neuts % (Manual) Lymphocytes % (Manual) Monocytes % (Manual) Seg Neutrophils # Man Lymphocytes # (Manual) Monocytes # (Manual) D-Dimer ABG pH 7.260 L POC ABG pCO2 POC ABG pO2 ABG pO2 ABG HCO3 30.5 H ABG O2 Saturation ABG Base Excess ABG Hemoglobin 9.4 L ABG Oxyhemoglobin Oxyhemoglobin 93.9 L Carboxyhemoglobin Sodium Potassium Chloride Carbon Dioxide BUN 74 H Creatinine 1.3 H Glucose 117 H POC Glucose 122 H Lactic Acid Calcium Phosphorus Magnesium Ferritin AST Lactate Dehydrogenase C-Reactive Protein NT-Pro-B Natriuret Pep Albumin Triglycerides Urine WBC (Auto) Urine Creatinine Coronavirus (PCR) 03/09/21 03/09/21 03/09/21 18:02 21:04 23:30 WBC RBC Hgb Hct RDW Plt Count Seg Neuts % (Manual) Lymphocytes % (Manual) Monocytes % (Manual) Seg Neutrophils # Man Lymphocytes # (Manual) Monocytes # (Manual) D-Dimer ABG pH POC ABG pCO2 POC ABG pO2 ABG pO2 ABG HCO3 ABG O2 Saturation ABG Base Excess ABG Hemoglobin ABG Oxyhemoglobin Oxyhemoglobin Carboxyhemoglobin Sodium Potassium Chloride Carbon Dioxide BUN Creatinine Glucose POC Glucose 106 H 116 H 109 H Lactic Acid Calcium Phosphorus Magnesium Ferritin AST Lactate Dehydrogenase C-Reactive Protein NT-Pro-B Natriuret Pep Albumin Triglycerides Urine WBC (Auto) Urine Creatinine Coronavirus (PCR) 03/10/21 03/10/21 03/10/21 02:43 04:00 04:00 WBC 11.6 H RBC 3.30 L Hgb 9.7 L Hct RDW 16.1 H Plt Count Seg Neuts % (Manual) Lymphocytes % (Manual) Monocytes % (Manual) Seg Neutrophils # Man Lymphocytes # (Manual) Monocytes # (Manual) D-Dimer ABG pH 7.268 L POC ABG pCO2 POC ABG pO2 ABG pO2 113.4 H ABG HCO3 31.9 H ABG O2 Saturation ABG Base Excess 3.6 H ABG Hemoglobin 9.9 L ABG Oxyhemoglobin Oxyhemoglobin Carboxyhemoglobin Sodium Potassium Chloride Carbon Dioxide BUN 74 H Creatinine Glucose 132 H POC Glucose Lactic Acid Calcium Phosphorus Magnesium Ferritin AST Lactate Dehydrogenase C-Reactive Protein NT-Pro-B Natriuret Pep Albumin Triglycerides Urine WBC (Auto) Urine Creatinine Coronavirus (PCR) 03/10/21 03/10/21 03/10/21 05:08 11:29 16:23 WBC RBC Hgb Hct RDW Plt Count Seg Neuts % (Manual) Lymphocytes % (Manual) Monocytes % (Manual) Seg Neutrophils # Man Lymphocytes # (Manual) Monocytes # (Manual) D-Dimer ABG pH POC ABG pCO2 POC ABG pO2 ABG pO2 ABG HCO3 ABG O2 Saturation ABG Base Excess ABG Hemoglobin ABG Oxyhemoglobin Oxyhemoglobin Carboxyhemoglobin Sodium Potassium Chloride Carbon Dioxide BUN Creatinine Glucose POC Glucose 117 H 128 H 116 H Lactic Acid Calcium Phosphorus Magnesium Ferritin AST Lactate Dehydrogenase C-Reactive Protein NT-Pro-B Natriuret Pep Albumin Triglycerides Urine WBC (Auto) Urine Creatinine Coronavirus (PCR) 03/10/21 03/10/21 03/11/21 21:15 23:39 03:40 WBC RBC Hgb Hct RDW Plt Count Seg Neuts % (Manual) Lymphocytes % (Manual) Monocytes % (Manual) Seg Neutrophils # Man Lymphocytes # (Manual) Monocytes # (Manual) D-Dimer ABG pH 7.247 L POC ABG pCO2 POC ABG pO2 ABG pO2 123.9 H ABG HCO3 34.4 H ABG O2 Saturation ABG Base Excess 5.4 H ABG Hemoglobin 9.7 L ABG Oxyhemoglobin Oxyhemoglobin Carboxyhemoglobin Sodium Potassium Chloride Carbon Dioxide BUN Creatinine Glucose POC Glucose 123 H 124 H Lactic Acid Calcium Phosphorus Magnesium Ferritin AST Lactate Dehydrogenase C-Reactive Protein NT-Pro-B Natriuret Pep Albumin Triglycerides Urine WBC (Auto) Urine Creatinine Coronavirus (PCR) 03/11/21 03/11/21 03/11/21 04:00 04:00 05:32 WBC 12.1 H RBC 3.30 L Hgb 9.5 L Hct RDW 15.5 H Plt Count Seg Neuts % (Manual) Lymphocytes % (Manual) Monocytes % (Manual) Seg Neutrophils # Man Lymphocytes # (Manual) Monocytes # (Manual) D-Dimer ABG pH POC ABG pCO2 POC ABG pO2 ABG pO2 ABG HCO3 ABG O2 Saturation ABG Base Excess ABG Hemoglobin ABG Oxyhemoglobin Oxyhemoglobin Carboxyhemoglobin Sodium 148 H Potassium 5.7 H Chloride 107.7 H Carbon Dioxide BUN 63 H Creatinine Glucose 135 H POC Glucose 147 H Lactic Acid Calcium Phosphorus 4.70 H Magnesium 3.20 H Ferritin AST Lactate Dehydrogenase C-Reactive Protein NT-Pro-B Natriuret Pep Albumin Triglycerides Urine WBC (Auto) Urine Creatinine Coronavirus (PCR) 03/11/21 03/11/21 03/11/21 11:35 17:50 21:29 WBC RBC Hgb Hct RDW Plt Count Seg Neuts % (Manual) Lymphocytes % (Manual) Monocytes % (Manual) Seg Neutrophils # Man Lymphocytes # (Manual) Monocytes # (Manual) D-Dimer ABG pH POC ABG pCO2 POC ABG pO2 ABG pO2 ABG HCO3 ABG O2 Saturation ABG Base Excess ABG Hemoglobin ABG Oxyhemoglobin Oxyhemoglobin Carboxyhemoglobin Sodium Potassium Chloride Carbon Dioxide BUN Creatinine Glucose POC Glucose 136 H 109 H 114 H Lactic Acid Calcium Phosphorus Magnesium Ferritin AST Lactate Dehydrogenase C-Reactive Protein NT-Pro-B Natriuret Pep Albumin Triglycerides Urine WBC (Auto) Urine Creatinine Coronavirus (PCR) 03/12/21 03/12/21 03/12/21 00:43 04:06 04:30 WBC 11.2 H RBC 3.16 L Hgb 9.1 L Hct 29.5 L RDW 16.1 H Plt Count Seg Neuts % (Manual) Lymphocytes % (Manual) Monocytes % (Manual) Seg Neutrophils # Man Lymphocytes # (Manual) Monocytes # (Manual) D-Dimer ABG pH 7.261 L POC ABG pCO2 79.6 H POC ABG pO2 ABG pO2 ABG HCO3 ABG O2 Saturation ABG Base Excess ABG Hemoglobin 9.64 L ABG Oxyhemoglobin Oxyhemoglobin Carboxyhemoglobin Sodium Potassium Chloride Carbon Dioxide BUN Creatinine Glucose POC Glucose 112 H Lactic Acid Calcium Phosphorus Magnesium Ferritin AST Lactate Dehydrogenase C-Reactive Protein NT-Pro-B Natriuret Pep Albumin Triglycerides Urine WBC (Auto) Urine Creatinine Coronavirus (PCR) 03/12/21 03/12/21 03/12/21 04:30 05:24 09:16 WBC RBC Hgb Hct RDW Plt Count Seg Neuts % (Manual) Lymphocytes % (Manual) Monocytes % (Manual) Seg Neutrophils # Man Lymphocytes # (Manual) Monocytes # (Manual) D-Dimer ABG pH POC ABG pCO2 POC ABG pO2 ABG pO2 ABG HCO3 ABG O2 Saturation ABG Base Excess ABG Hemoglobin ABG Oxyhemoglobin Oxyhemoglobin Carboxyhemoglobin Sodium 147 H Potassium 6.2 H* Chloride Carbon Dioxide 33 H BUN 61 H Creatinine Glucose 132 H POC Glucose 122 H 117 H Lactic Acid Calcium Phosphorus Magnesium Ferritin AST Lactate Dehydrogenase C-Reactive Protein NT-Pro-B Natriuret Pep Albumin Triglycerides Urine WBC (Auto) Urine Creatinine Coronavirus (PCR) 03/12/21 03/12/21 03/12/21 10:12 12:51 18:29 WBC RBC Hgb Hct RDW Plt Count Seg Neuts % (Manual) Lymphocytes % (Manual) Monocytes % (Manual) Seg Neutrophils # Man Lymphocytes # (Manual) Monocytes # (Manual) D-Dimer ABG pH POC ABG pCO2 POC ABG pO2 ABG pO2 ABG HCO3 ABG O2 Saturation ABG Base Excess ABG Hemoglobin ABG Oxyhemoglobin Oxyhemoglobin Carboxyhemoglobin Sodium Potassium Chloride Carbon Dioxide BUN Creatinine Glucose POC Glucose 134 H 117 H 144 H Lactic Acid Calcium Phosphorus Magnesium Ferritin AST Lactate Dehydrogenase C-Reactive Protein NT-Pro-B Natriuret Pep Albumin Triglycerides Urine WBC (Auto) Urine Creatinine Coronavirus (PCR) 03/12/21 03/13/21 03/13/21 21:14 00:01 05:38 WBC RBC Hgb Hct RDW Plt Count Seg Neuts % (Manual) Lymphocytes % (Manual) Monocytes % (Manual) Seg Neutrophils # Man Lymphocytes # (Manual) Monocytes # (Manual) D-Dimer ABG pH 7.238 L POC ABG pCO2 POC ABG pO2 ABG pO2 94.9 H ABG HCO3 34.9 H ABG O2 Saturation ABG Base Excess 5.7 H ABG Hemoglobin 10.0 L ABG Oxyhemoglobin Oxyhemoglobin 94.4 L Carboxyhemoglobin Sodium Potassium Chloride Carbon Dioxide BUN Creatinine Glucose POC Glucose 144 H 131 H Lactic Acid Calcium Phosphorus Magnesium Ferritin AST Lactate Dehydrogenase C-Reactive Protein NT-Pro-B Natriuret Pep Albumin Triglycerides Urine WBC (Auto) Urine Creatinine Coronavirus (PCR) 03/13/21 03/13/21 03/13/21 06:14 07:00 07:00 WBC 11.3 H RBC 3.14 L Hgb 8.8 L Hct 29.3 L RDW 15.8 H Plt Count Seg Neuts % (Manual) Lymphocytes % (Manual) Monocytes % (Manual) Seg Neutrophils # Man Lymphocytes # (Manual) Monocytes # (Manual) D-Dimer ABG pH POC ABG pCO2 POC ABG pO2 ABG pO2 ABG HCO3 ABG O2 Saturation ABG Base Excess ABG Hemoglobin ABG Oxyhemoglobin Oxyhemoglobin Carboxyhemoglobin Sodium 150 H Potassium Chloride 109.3 H Carbon Dioxide BUN 66 H Creatinine Glucose 115 H POC Glucose 107 H Lactic Acid Calcium Phosphorus 5.80 H Magnesium 3.00 H Ferritin AST Lactate Dehydrogenase C-Reactive Protein NT-Pro-B Natriuret Pep Albumin Triglycerides Urine WBC (Auto) Urine Creatinine Coronavirus (PCR) 03/13/21 03/13/21 03/14/21 11:41 23:38 03:44 WBC RBC Hgb Hct RDW Plt Count Seg Neuts % (Manual) Lymphocytes % (Manual) Monocytes % (Manual) Seg Neutrophils # Man Lymphocytes # (Manual) Monocytes # (Manual) D-Dimer ABG pH 7.306 L POC ABG pCO2 POC ABG pO2 ABG pO2 75.4 L ABG HCO3 36.7 H ABG O2 Saturation ABG Base Excess 8.9 H ABG Hemoglobin 8.2 L ABG Oxyhemoglobin Oxyhemoglobin 93.6 L Carboxyhemoglobin Sodium Potassium Chloride Carbon Dioxide BUN Creatinine Glucose POC Glucose 116 H 119 H Lactic Acid Calcium Phosphorus Magnesium Ferritin AST Lactate Dehydrogenase C-Reactive Protein NT-Pro-B Natriuret Pep Albumin Triglycerides Urine WBC (Auto) Urine Creatinine Coronavirus (PCR) 03/14/21 03/14/21 03/14/21 05:29 07:17 07:17 WBC 12.7 H RBC 3.05 L Hgb 8.8 L Hct 28.5 L RDW 15.3 H Plt Count Seg Neuts % (Manual) Lymphocytes % (Manual) Monocytes % (Manual) Seg Neutrophils # Man Lymphocytes # (Manual) Monocytes # (Manual) D-Dimer ABG pH POC ABG pCO2 POC ABG pO2 ABG pO2 ABG HCO3 ABG O2 Saturation ABG Base Excess ABG Hemoglobin ABG Oxyhemoglobin Oxyhemoglobin Carboxyhemoglobin Sodium Potassium Chloride Carbon Dioxide 33 H BUN 61 H Creatinine Glucose 121 H POC Glucose 122 H Lactic Acid Calcium Phosphorus 4.70 H Magnesium 2.80 H Ferritin AST Lactate Dehydrogenase C-Reactive Protein NT-Pro-B Natriuret Pep Albumin Triglycerides Urine WBC (Auto) Urine Creatinine Coronavirus (PCR) 03/14/21 03/14/21 03/15/21 10:59 18:09 00:05 WBC RBC Hgb Hct RDW Plt Count Seg Neuts % (Manual) Lymphocytes % (Manual) Monocytes % (Manual) Seg Neutrophils # Man Lymphocytes # (Manual) Monocytes # (Manual) D-Dimer ABG pH POC ABG pCO2 POC ABG pO2 ABG pO2 ABG HCO3 ABG O2 Saturation ABG Base Excess ABG Hemoglobin ABG Oxyhemoglobin Oxyhemoglobin Carboxyhemoglobin Sodium Potassium Chloride Carbon Dioxide BUN Creatinine Glucose POC Glucose 114 H 118 H 111 H Lactic Acid Calcium Phosphorus Magnesium Ferritin AST Lactate Dehydrogenase C-Reactive Protein NT-Pro-B Natriuret Pep Albumin Triglycerides Urine WBC (Auto) Urine Creatinine Coronavirus (PCR) 03/15/21 03/15/21 03/15/21 04:00 04:30 04:30 WBC 13.5 H RBC 2.99 L Hgb 8.4 L Hct 27.9 L RDW 15.6 H Plt Count Seg Neuts % (Manual) Lymphocytes % (Manual) Monocytes % (Manual) Seg Neutrophils # Man Lymphocytes # (Manual) Monocytes # (Manual) D-Dimer ABG pH 7.237 L POC ABG pCO2 80.6 H POC ABG pO2 71.8 L ABG pO2 ABG HCO3 ABG O2 Saturation ABG Base Excess ABG Hemoglobin ABG Oxyhemoglobin 91.7 L Oxyhemoglobin Carboxyhemoglobin 1.6 H Sodium Potassium Chloride Carbon Dioxide 32 H BUN 68 H Creatinine Glucose 128 H POC Glucose Lactic Acid Calcium Phosphorus Magnesium Ferritin AST Lactate Dehydrogenase C-Reactive Protein NT-Pro-B Natriuret Pep Albumin Triglycerides Urine WBC (Auto) Urine Creatinine Coronavirus (PCR) 03/15/21 03/15/21 03/15/21 05:18 11:04 17:40 WBC RBC Hgb Hct RDW Plt Count Seg Neuts % (Manual) Lymphocytes % (Manual) Monocytes % (Manual) Seg Neutrophils # Man Lymphocytes # (Manual) Monocytes # (Manual) D-Dimer ABG pH POC ABG pCO2 POC ABG pO2 ABG pO2 ABG HCO3 ABG O2 Saturation ABG Base Excess ABG Hemoglobin ABG Oxyhemoglobin Oxyhemoglobin Carboxyhemoglobin Sodium Potassium Chloride Carbon Dioxide BUN Creatinine Glucose POC Glucose 111 H 120 H 114 H Lactic Acid Calcium Phosphorus Magnesium Ferritin AST Lactate Dehydrogenase C-Reactive Protein NT-Pro-B Natriuret Pep Albumin Triglycerides Urine WBC (Auto) Urine Creatinine Coronavirus (PCR) 03/15/21 03/16/21 03/16/21 23:40 04:58 05:00 WBC RBC Hgb Hct RDW Plt Count Seg Neuts % (Manual) Lymphocytes % (Manual) Monocytes % (Manual) Seg Neutrophils # Man Lymphocytes # (Manual) Monocytes # (Manual) D-Dimer ABG pH 7.279 L POC ABG pCO2 77.0 H POC ABG pO2 65.3 L ABG pO2 ABG HCO3 ABG O2 Saturation ABG Base Excess ABG Hemoglobin 9.8 L ABG Oxyhemoglobin 89.7 L Oxyhemoglobin Carboxyhemoglobin Sodium Potassium Chloride Carbon Dioxide BUN Creatinine Glucose POC Glucose 121 H Lactic Acid Calcium Phosphorus Magnesium Ferritin AST Lactate Dehydrogenase C-Reactive Protein NT-Pro-B Natriuret Pep Albumin Triglycerides 169 H Urine WBC (Auto) Urine Creatinine Coronavirus (PCR) 03/16/21 03/16/21 03/16/21 05:29 12:22 16:34 WBC RBC Hgb Hct RDW Plt Count Seg Neuts % (Manual) Lymphocytes % (Manual) Monocytes % (Manual) Seg Neutrophils # Man Lymphocytes # (Manual) Monocytes # (Manual) D-Dimer ABG pH POC ABG pCO2 POC ABG pO2 ABG pO2 ABG HCO3 ABG O2 Saturation ABG Base Excess ABG Hemoglobin ABG Oxyhemoglobin Oxyhemoglobin Carboxyhemoglobin Sodium Potassium Chloride Carbon Dioxide BUN Creatinine Glucose POC Glucose 140 H 108 H 116 H Lactic Acid Calcium Phosphorus Magnesium Ferritin AST Lactate Dehydrogenase C-Reactive Protein NT-Pro-B Natriuret Pep Albumin Triglycerides Urine WBC (Auto) Urine Creatinine Coronavirus (PCR) 03/17/21 03/17/21 03/17/21 00:03 04:00 04:00 WBC 14.7 H RBC 3.01 L Hgb 8.6 L Hct 27.8 L RDW 15.6 H Plt Count Seg Neuts % (Manual) Lymphocytes % (Manual) Monocytes % (Manual) Seg Neutrophils # Man Lymphocytes # (Manual) Monocytes # (Manual) D-Dimer ABG pH POC ABG pCO2 POC ABG pO2 ABG pO2 ABG HCO3 ABG O2 Saturation ABG Base Excess ABG Hemoglobin ABG Oxyhemoglobin Oxyhemoglobin Carboxyhemoglobin Sodium 147 H Potassium 5.6 H D Chloride Carbon Dioxide 34 H BUN 74 H Creatinine Glucose 129 H POC Glucose 126 H Lactic Acid Calcium Phosphorus Magnesium Ferritin AST Lactate Dehydrogenase C-Reactive Protein NT-Pro-B Natriuret Pep Albumin Triglycerides Urine WBC (Auto) Urine Creatinine Coronavirus (PCR) 03/17/21 03/17/21 03/17/21 05:05 05:19 11:25 WBC RBC Hgb Hct RDW Plt Count Seg Neuts % (Manual) Lymphocytes % (Manual) Monocytes % (Manual) Seg Neutrophils # Man Lymphocytes # (Manual) Monocytes # (Manual) D-Dimer ABG pH 7.315 L POC ABG pCO2 POC ABG pO2 ABG pO2 ABG HCO3 37.6 H ABG O2 Saturation ABG Base Excess 9.5 H ABG Hemoglobin 9.5 L ABG Oxyhemoglobin Oxyhemoglobin 93.4 L Carboxyhemoglobin Sodium Potassium Chloride Carbon Dioxide BUN Creatinine Glucose POC Glucose 118 H 107 H Lactic Acid Calcium Phosphorus Magnesium Ferritin AST Lactate Dehydrogenase C-Reactive Protein NT-Pro-B Natriuret Pep Albumin Triglycerides Urine WBC (Auto) Urine Creatinine Coronavirus (PCR) 03/17/21 03/17/21 03/18/21 17:11 23:56 05:16 WBC RBC Hgb Hct RDW Plt Count Seg Neuts % (Manual) Lymphocytes % (Manual) Monocytes % (Manual) Seg Neutrophils # Man Lymphocytes # (Manual) Monocytes # (Manual) D-Dimer ABG pH 7.275 L POC ABG pCO2 78.2 H POC ABG pO2 65.3 L ABG pO2 ABG HCO3 ABG O2 Saturation ABG Base Excess ABG Hemoglobin 9.8 L ABG Oxyhemoglobin 89.6 L Oxyhemoglobin Carboxyhemoglobin Sodium Potassium Chloride Carbon Dioxide BUN Creatinine Glucose POC Glucose 121 H 117 H Lactic Acid Calcium Phosphorus Magnesium Ferritin AST Lactate Dehydrogenase C-Reactive Protein NT-Pro-B Natriuret Pep Albumin Triglycerides Urine WBC (Auto) Urine Creatinine Coronavirus (PCR) 03/18/21 05:17 WBC RBC Hgb Hct RDW Plt Count Seg Neuts % (Manual) Lymphocytes % (Manual) Monocytes % (Manual) Seg Neutrophils # Man Lymphocytes # (Manual) Monocytes # (Manual) D-Dimer ABG pH POC ABG pCO2 POC ABG pO2 ABG pO2 ABG HCO3 ABG O2 Saturation ABG Base Excess ABG Hemoglobin ABG Oxyhemoglobin Oxyhemoglobin Carboxyhemoglobin Sodium Potassium Chloride Carbon Dioxide BUN Creatinine Glucose POC Glucose 119 H Lactic Acid Calcium Phosphorus Magnesium Ferritin AST Lactate Dehydrogenase C-Reactive Protein NT-Pro-B Natriuret Pep Albumin Triglycerides Urine WBC (Auto) Urine Creatinine Coronavirus (PCR)
[2021-03-18] MEDS ORDERED: diphenhydrAMINE 50 MG/ML VIAL IV PRN (12:07)
[2021-03-18] MEDS ORDERED: LORazepam 2 MG/ML VIAL IV PRN (12:07)
[2021-03-18] MEDS ORDERED: MORPHINE 2 MG/1 ML INJ IV PRN (12:07)
[2021-03-18] MEDS ORDERED: GLYCOPYRROLATE 0.4 MG/2 ML INJ IV PRN (12:07)
--- NOTE | 2021-03-18 15:30 | Death Note ---
Note Date of : 03/18/21 Time of : 12:54 Time Pronounced: 12:57 - Preliminary Cause of (problem) (1) Cardiac arrest Preliminary cause of Called to see patient for unresponsiveness. Tele monitor showed asystole at 12:54. On exam the patient did not respond to verbal or physical stimuli. Absent heart and breath sounds.Absent peripheral pulses. Pupils are fixed and dilated. Patient pronounced at 12:57. Next of kin notified. (2) Acute respiratory failure with hypoxia Preliminary cause of (3) Multifocal pneumonia Preliminary cause of (4) Pneumonia due to COVID-19 virus Preliminary cause of
--- NOTE | 2021-03-18 16:14 | Death Summary ---
Summary - Providers Date of service: 03/18/21 Consults: 02/18/21 17:00 Consult to Physician [CONS] Routine Comment: Consulting Provider: CALVIN CASANOVA Physician Instructions: Reason For Exam: Covid pneumonia 02/19/21 09:27 Consult to Physician [CONS] Routine Comment: Consulting Provider: HEIDY GUILLEN Physician Instructions: Reason For Exam: Hypoxic respiratory failure 02/22/21 08:23 Consult to Physician [CONS] Routine Comment: Consulting Provider: RAKAN SOUSA Physician Instructions: Reason For Exam: VTE ?PE 02/22/21 17:54 Physical Therapy Evaluation and Treat [CONS] Routine Comment: Reason For Exam: EVALUATION 02/28/21 13:22 Consult to PICC Line RN [CONS] Routine Reason For Exam: needs access Type Line:: Midline 03/05/21 09:39 Consult to Dietitian/Nutrition [CONS] Routine Physician Instructions: Reason For Exam: Reason for Consult: Evaluate nutritional intake 03/05/21 10:43 Consult to PICC Line RN [CONS] Urgent Reason For Exam: VASOPRESSORS Type Line:: PICC 03/05/21 14:47 Consult to Dietitian/Nutrition [CONS] Stat Physician Instructions: Reason For Exam: Reason for Consult: Write/Manage Tube Feeding Attending: RIN JAMISON MD - summary Date of admission: 02/18/21 02:58 Date of : 03/18/21 Reason for admission: Acute Hypoxic Respiratory Failure secondary to COVID Pneumonia Disposition: This is a 61-year-old female with known past medical history of hypertension, diabetes, and DVT was on Eliquis on Eliquis at home brought to the emergency room via EMS for shortness of breath, cough, and generalized weakness for 5 days. Patient tested positive for COVID on 02/10 prior to admit, upon assessment in the ED patient was noted to be in respiratory distress SPO2 at 96% on nonrebreather. Patient was initially placed on Bipap, admitted to IMCU, and received COVID treatment with IV antibiotics, IV steroids and Remdesevir [id number]. While in IMCU patient continue to decompensate with worsen hypoxic respiratory failure secondary to COVID Pneumonia was intubated and placed on ventilatory support. For 13 days patient remained on high ventilatory support with no improvement. The central office associate had a thorough phone conference with patient's daughter in regards to patient's condition and poor prognosis. On 03/18 patient's family opted for AND/DNR status and withdrawal of care. All AND and withdrawal of care paperworks were signed and withdrawal of care paperworks were placed. Patient was extubated on 03/18/21 at 1234 and Tele monitor showed asystole at 12:54. On exam the patient did not respond to verbal or physical stimuli. Absent heart and breath sounds. Absent peripheral pulses. Pupils are fixed and dilated. Patient pronounced at 12:57. Patient's family was at the bedside. Acute hypoxic respiratory failure secondary to Covid pneumonia, ARDS Sepsis/COVID-19 pneumonia, leukocytosis, multifocal pneumonia Acute kidney injury secondary to acute tubular necrosis, hypernatremia, hyperkalemia Acute right lower leg DVT, PE
== END 2021-03-18 12:54 | DRG 870 ==
LOC: ED 12:27 → 3A 02-18 02:58 → IMCU 02-22 17:56 → CC1 03-05 21:54
PROVIDERS: ADMIT Internal Medicine; ATTEND Internal Medicine
PROC: 5A09557 Assistance with Respiratory Ventilation, Greater than 96 Consecutive Hours, Continuous Positive Airway Pressure (ICD-10-PCS; 2021-02-18)
PROC: XW033E5 Introduction of Remdesivir Anti-infective into Peripheral Vein, Percutaneous Approach, New Technology Group 5 (ICD-10-PCS; principal; 2021-02-19)
PROC: XW033H5 Introduction of Tocilizumab into Peripheral Vein, Percutaneous Approach, New Technology Group 5 (ICD-10-PCS; 2021-02-19)
PROC: 4A033R1 Measurement of Arterial Saturation, Peripheral, Percutaneous Approach (ICD-10-PCS; 2021-02-20)
PROC: 5A1955Z Respiratory Ventilation, Greater than 96 Consecutive Hours (ICD-10-PCS; 2021-03-05)
PROC: 0BH17EZ Insertion of Endotracheal Airway into Trachea, Via Natural or Artificial Opening (ICD-10-PCS; 2021-03-05)
PROC: 02HV33Z Insertion of Infusion Device into Superior Vena Cava, Percutaneous Approach (ICD-10-PCS; 2021-03-05)
PROC: B548ZZA Ultrasonography of Superior Vena Cava, Guidance (ICD-10-PCS; 2021-03-05)
DX: A41.89 Other specified sepsis (principal); U07.1 COVID-19; J12.82 Pneumonia due to coronavirus disease 2019; I26.99 Other pulmonary embolism without acute cor pulmonale; I10 Essential (primary) hypertension; E11.9 Type 2 diabetes mellitus without complications; N17.0 Acute kidney failure with tubular necrosis; E87.0 Hyperosmolality and hypernatremia; E87.5 Hyperkalemia; I82.4Z1 Acute embolism and thrombosis of unspecified deep veins of right distal lower extremity; I46.9 Cardiac arrest, cause unspecified; Z66 Do not resuscitate; J80 Acute respiratory distress syndrome; Z90.49 Acquired absence of other specified parts of digestive tract
CPT/HCPCS: 36415; 36600; 71045; 71275; 74018; 80048; 80053; 80076; 81001; 82140; 82570; 82728; 82803; 82805; 82962; 83615; 83735; 83880; 84100; 84132; 84145; 84300; 84478; 85007; 85025; 85027; 85379; 85610; 85730; 86140; 87040; 87070; 87205; 93005; 93306; 93970; 94002; 94003; 94660; 94760; G0378; J2354; J3490; Q9967; C8929; J0330; J0456; J0610; J0696; J1100; J1650; J1815; J1940; J2060; J2250; J2270; J2704; J3010; J3262; J7040; J7050; J7120; U0003